=== PATIENT | male | born 1970 | race Caucasian/White ===

== ENCOUNTER 2017-09-17 05:46 | Emergency (ER) | payer OTHER, SELFPAY ==
[2017-09-17 05:46] VITALS: BP 189/109; PULSE 108; RESP 16; TEMP 36.9; O2SAT 98; BMI 25.0
--- NOTE | 2017-09-17 06:04 | EKG12_ITS ---
Test Reason : VOMITING/CP/SOB Blood Pressure : / mmHG Vent. Rate : 096 BPM Atrial Rate : 096 BPM P-R Int : 136 ms QRS Dur : 088 ms QT Int : 360 ms P-R-T Axes : 081 076 077 degrees QTc Int : 454 ms Normal sinus rhythm Normal ECG Confirmed by SHADI BONNER, FRANKLIN ([id number]), development editor OSIEL KHAN ([id number] on 09/20/2017 11:19:08 AM Referred By: IESHA Confirmed By:FRANKLIN HSU MD
--- NOTE | 2017-09-17 06:05 | CT_ITS ---
STUDY: CT ABDOMEN AND PELVIS WITHOUT CONTRAST REASON FOR EXAM: Male, 47 years old. N/V/D WITH FEVER X 3 DAYS, MID UPPER ABD PAIN, HX HTN, GB RADIATION DOSAGE (If Supplied By Facility): CTDIvol = ( 6.67 ) mGy, DLP = ( 336.56 ) mGycm TECHNIQUE: Transaxial images were obtained from the dome of the diaphragm to the symphysis pubis without oral contrast, and without intravenous contrast. Sagittal and coronal images were reconstructed. Individualized dose optimization techniques were used for this CT. COMPARISON: None. FINDINGS: The visualized lung bases are unremarkable. The visualized portions of the heart are within normal limits. Normal liver. There are surgical clips in the gallbladder fossa consistent with a prior cholecystectomy. Normal spleen. Normal pancreas. Normal bilateral adrenal glands. Normal right kidney. Normal left kidney. Normal visualized stomach. Normal small intestine. There are multiple colonic diverticula consistent with diverticulosis. There is non-visualization of the appendix. Normal abdominal aorta. Normal inferior vena cava. Normal retroperitoneum. Normal urinary bladder. Normal abdominal wall. There are diffuse degenerative changes of the visualized lumbar spine. CT/Abdomen/Pelvis without Cont IMPRESSION: There are multiple colonic diverticula consistent with diverticulosis. Electronically Signed: Elías Garcia MD at 6:59 EST Tel , Service support ,
[2017-09-17] MEDS: 0.9% Normal Saline 1,000 ML 1000 ML IV (06:12)
[2017-09-17] MEDS: Ondansetron 4 MG/2 ML Vial IV (06:12)
[2017-09-17 06:16] LABS: Absolute Lymphocyte Count 1.52 X10^3/ul (0.83-4.51); Absolute Neutrophil Count 2.1 X10^3/uL (2.0-7.7); Basophil# 0.03 X10^3/uL; Basophil% 0.6 % (0-1); Eosinophil# 0.14 X10^3/uL; Hematocrit 46.3 % (40-54); Hemoglobin 16.6 g/dl (13.0-16.5); Lymphocyte # 1.52 X10^3/ul (4.0); Lymphocyte % 32.6 % (19-41); Mean Corp Hgb Conc 35.9 g/gl (32-36); Mean Corpuscular Hgb 33.8 pg (27.0-32.0); Mean Corpuscular Volume 94.3 fL (80-94); Mean Platelet Vol. 8.8 fl (6.2-12.0); Monocyte# 0.84 X10^3/uL; Neutrophil # 2.12 X10^3/uL (2.7-7.7); Neutrophil % 45.6 % (47-70); Platelet Count 229 K/mm3 (150-450); RBC Distribution Width CV 13.1 % (11.6-14.6); RBC Distribution Width SD 43.9 fl (35.1-43.9); Red Blood Count 4.91 M/mm3 (4.6-6.2); White Blood Count 4.7 K/mm3 (4.4-11.0)
--- NOTE | 2017-09-17 06:22 | ED.VISSUMM ---
- ER Visit Summary Date of Service: 09/17/17 Chief Complaint: [Abdominal pain] History of Present Illness: The patient is a 47 M [who presents the emergency department with ongoing abdominal pain for quite some time. For the last 3 days he has had subjective fevers nausea vomiting and diarrhea. He has vomited 3 times since 3 AM. His diarrhea is watery and he has multiple episodes it is not black or bloody. He has been working with Dr. Starr to figure out what has been going on with his abdominal pain he had his gallbladder out but that has not helped. He does smoke. He occasionally drinks alcohol. No chest pain or shortness of breath. He has had a cough sore throat headache.] Physical Examination: [] Blood pressure 189/109 heart rate 108 other vitals within normal limits WN WD NAD PERRL EOMI Dry mucous membranes NECK supple and nontender, no masses Regular tachycardic rhythm no murmur rub or gallop, no peripheral edema, symmetric radial pulses CTAB no respiratory distress ABDOMEN is soft and mild bilateral upper and epigastric tenderness to palpation, normal bowel sounds, no distension, no rebound or guarding SKIN is warm and dry no rashes Alert and Oriented x3, CN II-XII in tact, no motor or sensory deficits, gait normal No lymphadenopathy Test Results: [] Emergency Department Course and Treatment: [EKG was sinus at a rate of 96 with no acute ischemic changes. Patient was given a liter of fluids and Zofran. His nausea resolved. Screening labs were obtained and showed mild hypokalemia with potassium of 3.1. Calcium was 7.8. Patient's hemoglobin was 16.6. He had no leukocytosis. CT of abdomen pelvis was obtained to rule out diverticulitis or obstructive process and shows no acute process. Lipase was slightly elevated at 486. There is no inflammation or stranding around the pancreas on CAT scan. Patient is following with Dr. Mortensen for GI distress already. He will make a follow-up appointment with her. Additionally the patient's blood pressure is elevated. He had high blood pressure but it went away so he has not taken any medication however currently it is high. I did encourage him to follow-up with Dr. johnson for treatment of his high blood pressure.] Treatment Plan: [] Disposition: [Discharge] Impression: [1. Nausea vomiting diarrhea 2. Dehydration 3. Abdominal pain 4. Hypertension, uncontrolled] This note was generated with [employer] dictation software. It may contain incorrect words, spelling, and punctuation that were not noted in review of the chart prior to signing ED Disposition - Plan for ED Patient: Chief Complaint: Nausea/Vomiting/Diarrhea Referrals: Que Stark MD [Primary Care Provider] -
[2017-09-17 06:23] LABS: POSITIVE COUNT NO; POSITIVE DIFFERENTIAL NO; POSITIVE MORPHOLOGY NO
[2017-09-17 06:33] LABS: AST(SGOT) 87 U/L (15-37); Alanine Aminotransfer ALT/SGPT 41 U/L (16-61); Albumin, Serum 3.3 g/dL (3.2-5.0); Alkaline Phosphatase 123 U/L (45-117); Anion Gap 10 (5-15); BUN 8 mg/dL (7-18); BUN/Creat Ratio 11.7 RATIO (10-20); Calcium,Total 7.8 mg/dL (8.5-10.1); Chloride 102 mmol/L (98-107); Creatinine, Serum 0.68 mg/dL (0.70-1.30); EST Glomerular Filtration Rate 133 mL/min (>60); Est Glom Filt Rate - Afr Amer 160 mL/min (>60); Estimated Creatinine Clearance 140.16 ml/min; Globulin 3.4 g/dL (2.2-4.2); Glucose 113 mg/dL (70-110); Lipase 486 U/L (73-393); Potassium 3.1 mmol/L (3.5-5.1); Protein, Total 6.7 g/dL (6.4-8.2); Sodium Level 139 mmol/L (136-145)
[2017-09-17] MEDS: Mag Hydrox/Al Hydrox/Simeth 30 ML UDC PO (06:50)
[2017-09-17 07:08] VITALS: BP 174/109; PULSE 97; RESP 18; O2SAT 98
[2017-09-17 07:11] VITALS: BP 167/99; PULSE 91; RESP 16; O2SAT 96
--- NOTE | 2017-09-17 07:14 | DCINST.ED_ITS ---
ED Disposition - Plan for ED Patient: Chief Complaint: Nausea/Vomiting/Diarrhea Instructions: ED Vomiting Diarrhea Nonspecific Ad, ED Abdominal Pain Unkn Cause , ED Hypertension Conf Out Of Control Prescriptions: Ondansetron [Zofran Odt] 4 mg PO Q8H PRN PRN #10 tablet PRN Reason: Vomiting Referrals: Que Stark MD [Primary Care Provider] - 3-5 Days Elena Starr MD [STAFF PHYSICIAN] - 3-5 Days
== END 2017-09-17 07:28 | disposition home or self-care (01) ==
LOC: ED 06:30
PROVIDERS: Emergency Provider Emergency Medicine; Family Provider Family Medicine; PCP Family Medicine
DX: R10.13 Epigastric pain (principal); R10.12 Left upper quadrant pain; R10.11 Right upper quadrant pain; R11.2 Nausea with vomiting, unspecified; R19.7 Diarrhea, unspecified; E86.0 Dehydration; I10 Essential (primary) hypertension; E87.6 Hypokalemia; F17.200 Nicotine dependence, unspecified, uncomplicated; Z79.51 Long term (current) use of inhaled steroids; Z79.899 Other long term (current) drug therapy
CPT/HCPCS: 74176; 80053; 83690; 85025; 87804; 93005; 96361; 96374; 99284; J7030; A4216; J2405

== ENCOUNTER 2017-10-10 11:03 | Inpatient (IN) | payer OTHER, SELFPAY ==
[2017-10-10] VITALS (12 sets, daily range): BP systolic 151–171; BP diastolic 94–118; PULSE 93–109; RESP 18; TEMP 36.9–37.4; O2SAT 98–99; BMI 24.1; BMI 35.6
--- NOTE | 2017-10-10 11:43 | PCM.HP.STD ---
Problem List (1) Alcohol withdrawal Status: Acute (2) COPD (chronic obstructive pulmonary disease) Status: Chronic (3) Alcohol abuse Status: Chronic (4) Seizure disorder Status: Chronic (5) Tobacco abuse Status: Chronic (6) Benign essential hypertension Status: Chronic History of Present Illness Date of Admission: 10/10/17 Chief Complaint: Shaking, restlessness, abdominal pain. The patient is a 47 year old M with past medical history as mentioned above presented to the [facility] office for symptoms of shakiness, anxiety, restlessness and abdominal pain. His symptoms started yesterday with mainly shakiness, anxiety and restlessness, constant since he stopped drinking yesterday, got worse today and his last drink was last night. He complains of vague abdominal pain, generalized, dull aching pain, mild, 3-4 out of 10 in severity, intermittent, associated with nausea without vomiting as well as diarrhea. He has been having diarrhea for the last 3 days, watery stool without blood. Denies fever or chills. He mentioned that he has been drinking 1 L of vodka for at least 10 years and also he admitted smoking marijuana. He denied use of other recreational drugs. He is a chronic smoker, has been using albuterol inhaler but never been diagnosed officially with COPD. Clinically, he does have suspected COPD which seemed to be stable at this time. He had a history of chronic abdominal/epigastric pain and he underwent extensive workup as outpatient. Last year in January, he underwent upper endoscopy and he had cholecystectomy done but he continued to have significant epigastric pain. He has been on Zantac and Protonix. He reported family history of duodenal ulcers. He is being admitted for alcohol withdrawal for medical stabilization. Past Medical History Past Medical History (Chronic Problems): Chronic Problems COPD (chronic obstructive pulmonary disease) (Chronic) Alcohol abuse (Chronic) Seizure disorder (Chronic) Tobacco abuse (Chronic) Benign essential hypertension (Chronic) Allergies acetaminophen [From Vicodin] Adverse Reaction (Verified 09/17/17 05:53) Other PT IS NOT ALLERGIC TO TYLENOL hydrocodone bitartrate [From Vicodin] Adverse Reaction (Verified 09/17/17 05:53) Other Opioids - Morphine Analogues Adverse Reaction (Verified 09/17/17 05:53) Other GIVES ME HORRIBLE NIGHTMARES Home Medications: Ambulatory Orders Medication Instructions Recorded Albuterol Sulfate [Proventil Hfa] 6.7 gm IH Q2H PRN PRN #1 hfa.aer.ad 05/27/17 Ranitidine [Zantac] 300 mg PO BID 05/27/17 Ondansetron [Zofran Odt] 4 mg PO Q8H PRN PRN #10 tablet 09/17/17 Pantoprazole Sodium [Protonix] 40 mg PO DAILY 10/10/17 Surgical History: cholecystectomy Psychiatric History: No pertinent psych hx Lives: Alone Smoking Status: Current every day smoker Alcohol: Heavy Drugs: Marijuana - *Family History Paternal History Items: - - Peptic ulcer disease. Maternal History Items: No pertinent history Review of Systems Constitutional: Denies: Anorexia, Chills, Fever, Weakness Eyes: Denies: Blurred vision, Double vision, Drainage, Redness HEENT: Denies: Difficulty Hearing, Dysphasia, Ear Pain, Eye Pain, Nasal Congestion, Sore Throat Cardiovascular: Denies: Chest Pain, Chest Pressure, Chest Tightness, Heaviness, Light Headedness, Palpitations, Syncope Respiratory: Denies: Cough, Pleuritic Pain, Shortness of Breath, Sputum production, Wheezing Gastrointestinal: Reports: Abdominal Pain, Diarrhea, Nausea. Denies: Constipation, Hematochezia, Melena, Vomiting Genitourinary: Denies: Dysuria, Frequency, Hematuria Musculoskeletal: Denies: Arm Pain, Back Pain, Foot Pain Skin: Denies: Dryness, Rash Neurological: Denies: Balance problems, Double vision, Change in Speech, Slurred speech, Confusion, Headaches, Incoordination, Numbness Psychiatric: Denies: Anxiety, Depression Endocrine: Denies: Change in Body Habitus, Polydipsia VTE Information - Inpt Only VTE Present on Admission: No VTE Mechan Device Prophylaxis: None VTE Pharm Prophylaxis ordered?: No Patient Problems: Active and Suspected Problems Alcohol withdrawal (Acute) - Physical Exam General: Alert, Oriented x3, Cooperative, - - Anxious, restless. HEENT: Atraumatic, PERRLA, EOMI Oral: Moist Mucosa, No Gingival or Mucosal Lesions/ Ulcerations Neck: Supple, No JVD, Negative Carotid Bruits, Trachea Midline, Thyroid Normal Size and Texture Lungs: Clear to auscultation, Normal air movement, No rhonchi, No wheeze, No rales Cardiovascular: Regular rate, Regular Rhythm, Normal S1, Normal S2, PMI Normal, Tachycardic Abdomen: Bowel Sounds Present, Soft, Non Tender, Non-Distended, No Hepato-splenomegaly Extremities: No clubbing, No cyanosis, No edema Skin: No rashes, No breakdown Lymphatic: No Cervical, Supraclavicular, or Inguinal Adenopathy Neurological: Cranial nerves II-XII grossly intact, Motor Exam 5/5 strength throughout Psych/Mental Status: Anxious, Restless, Alert and oriented to time, place, person, mood and affect Vital Signs Temp Pulse Resp BP Pulse Ox 98.4 F 103 H 18 155/118 H 98 10/10/17 11:34 10/10/17 11:34 10/10/17 11:34 10/10/17 11:34 10/10/17 11:34 Oxygen Delivery Method Room Air Assessment/Plan Active and Suspected Problems Alcohol withdrawal (Acute) This is a 47 years old this is a 47 years old male patient presented to the [facility] office for symptoms of anxiety, restlessness, shakiness and abdominal pain and he is being admitted for acute alcohol withdrawal. #1 acute alcohol withdrawal: Patient admitted drinking 1 L of vodka daily for at least 10 years in addition to smoking marijuana. He denied use of other recreational drugs. At this time, he is slightly tachycardic, blood pressure on the higher side. Plan: Admit to [facility] floor, cardiac monitoring, initiate [facility] protocol for alcohol withdrawal, CIWA protocol, IV thiamine, IV folic acid, multivitamins, Ativan as needed, CBC, CMP, EKG, lipase, urine drug screen, blood alcohol level #2 alcohol abuse: As mentioned above, patient has been drinking heavily for more than 10 years. Plan as above. #3 hypertension: Patient mentioned that he does have history of hypertension but he is not on treatment. At this time, blood pressure is elevated at 155/118. Plan: IV hydralazine as needed. #4 COPD: Clinically stable, pulse ox is normal on room air. Plan for albuterol as needed. #5 seizure disorder: Probably due to alcohol withdrawal. Denied any seizure for long time. He is not on any antiseizure medication. #6 tobacco abuse: NicoDerm patch. #7 DVT prophylaxis: Low risk patient, no prophylaxis indicated. This note was generated with [employer] software. It may contain incorrect words, spelling, and punctuation that were not noted in checking the note before signing. Code Visit Inpatient E&M: 96945 Init Hosp L2
--- NOTE | 2017-10-10 11:49 | HP.PCM_ITS ---
Problem List (1) Alcohol withdrawal Status: Acute (2) COPD (chronic obstructive pulmonary disease) Status: Chronic (3) Alcohol abuse Status: Chronic (4) Seizure disorder Status: Chronic (5) Tobacco abuse Status: Chronic (6) Benign essential hypertension Status: Chronic History of Present Illness Date of Admission: 10/10/17 Chief Complaint: Shaking, restlessness, abdominal pain. The patient is a 47 year old M with past medical history as mentioned above presented to the [facility] office for symptoms of shakiness, anxiety, restlessness and abdominal pain. His symptoms started yesterday with mainly shakiness, anxiety and restlessness, constant since he stopped drinking yesterday, got worse today and his last drink was last night. He complains of vague abdominal pain, generalized, dull aching pain, mild, 3-4 out of 10 in severity, intermittent, associated with nausea without vomiting as well as diarrhea. He has been having diarrhea for the last 3 days, watery stool without blood. Denies fever or chills. He mentioned that he has been drinking 1 L of vodka for at least 10 years and also he admitted smoking marijuana. He denied use of other recreational drugs. He is a chronic smoker, has been using albuterol inhaler but never been diagnosed officially with COPD. Clinically, he does have suspected COPD which seemed to be stable at this time. He had a history of chronic abdominal/epigastric pain and he underwent extensive workup as outpatient. Last year in January, he underwent upper endoscopy and he had cholecystectomy done but he continued to have significant epigastric pain. He has been on Zantac and Protonix. He reported family history of duodenal ulcers. He is being admitted for alcohol withdrawal for medical stabilization. Past Medical History Past Medical History (Chronic Problems): Chronic Problems COPD (chronic obstructive pulmonary disease) (Chronic) Alcohol abuse (Chronic) Seizure disorder (Chronic) Tobacco abuse (Chronic) Benign essential hypertension (Chronic) Allergies acetaminophen [From Vicodin] Adverse Reaction (Verified 09/17/17 05:53) Other PT IS NOT ALLERGIC TO TYLENOL hydrocodone bitartrate [From Vicodin] Adverse Reaction (Verified 09/17/17 05:53) Other Opioids - Morphine Analogues Adverse Reaction (Verified 09/17/17 05:53) Other GIVES ME HORRIBLE NIGHTMARES Home Medications: Ambulatory Orders Medication Instructions Recorded Albuterol Sulfate [Proventil Hfa] 6.7 gm IH Q2H PRN PRN #1 hfa.aer.ad 05/27/17 Ranitidine [Zantac] 300 mg PO BID 05/27/17 Ondansetron [Zofran Odt] 4 mg PO Q8H PRN PRN #10 tablet 09/17/17 Pantoprazole Sodium [Protonix] 40 mg PO DAILY 10/10/17 Surgical History: cholecystectomy Psychiatric History: No pertinent psych hx Lives: Alone Smoking Status: Current every day smoker Alcohol: Heavy Drugs: Marijuana - *Family History Paternal History Items: - - Peptic ulcer disease. Maternal History Items: No pertinent history Review of Systems Constitutional: Denies: Anorexia, Chills, Fever, Weakness Eyes: Denies: Blurred vision, Double vision, Drainage, Redness HEENT: Denies: Difficulty Hearing, Dysphasia, Ear Pain, Eye Pain, Nasal Congestion, Sore Throat Cardiovascular: Denies: Chest Pain, Chest Pressure, Chest Tightness, Heaviness, Light Headedness, Palpitations, Syncope Respiratory: Denies: Cough, Pleuritic Pain, Shortness of Breath, Sputum production, Wheezing Gastrointestinal: Reports: Abdominal Pain, Diarrhea, Nausea. Denies: Constipation, Hematochezia, Melena, Vomiting Genitourinary: Denies: Dysuria, Frequency, Hematuria Musculoskeletal: Denies: Arm Pain, Back Pain, Foot Pain Skin: Denies: Dryness, Rash Neurological: Denies: Balance problems, Double vision, Change in Speech, Slurred speech, Confusion, Headaches, Incoordination, Numbness Psychiatric: Denies: Anxiety, Depression Endocrine: Denies: Change in Body Habitus, Polydipsia VTE Information - Inpt Only VTE Present on Admission: No VTE Mechan Device Prophylaxis: None VTE Pharm Prophylaxis ordered?: No Patient Problems: Active and Suspected Problems Alcohol withdrawal (Acute) - Physical Exam General: Alert, Oriented x3, Cooperative, - - Anxious, restless. HEENT: Atraumatic, PERRLA, EOMI Oral: Moist Mucosa, No Gingival or Mucosal Lesions/ Ulcerations Neck: Supple, No JVD, Negative Carotid Bruits, Trachea Midline, Thyroid Normal Size and Texture Lungs: Clear to auscultation, Normal air movement, No rhonchi, No wheeze, No rales Cardiovascular: Regular rate, Regular Rhythm, Normal S1, Normal S2, PMI Normal, Tachycardic Abdomen: Bowel Sounds Present, Soft, Non Tender, Non-Distended, No Hepato- splenomegaly Extremities: No clubbing, No cyanosis, No edema Skin: No rashes, No breakdown Lymphatic: No Cervical, Supraclavicular, or Inguinal Adenopathy Neurological: Cranial nerves II-XII grossly intact, Motor Exam 5/5 strength throughout Psych/Mental Status: Anxious, Restless, Alert and oriented to time, place, person, mood and affect Vital Signs Temp Pulse Resp BP Pulse Ox 98.4 F 103 H 18 155/118 H 98 10/10/17 11:34 10/10/17 11:34 10/10/17 11:34 10/10/17 11:34 10/10/17 11:34 Oxygen Delivery Method Room Air Assessment/Plan Active and Suspected Problems Alcohol withdrawal (Acute) This is a 47 years old this is a 47 years old male patient presented to the [facility] office for symptoms of anxiety, restlessness, shakiness and abdominal pain and he is being admitted for acute alcohol withdrawal. #1 acute alcohol withdrawal: Patient admitted drinking 1 L of vodka daily for at least 10 years in addition to smoking marijuana. He denied use of other recreational drugs. At this time, he is slightly tachycardic, blood pressure on the higher side. Plan: Admit to [facility] floor, cardiac monitoring, initiate [facility] protocol for alcohol withdrawal, CIWA protocol, IV thiamine, IV folic acid, multivitamins, Ativan as needed, CBC, CMP, EKG, lipase, urine drug screen, blood alcohol level #2 alcohol abuse: As mentioned above, patient has been drinking heavily for more than 10 years. Plan as above. #3 hypertension: Patient mentioned that he does have history of hypertension but he is not on treatment. At this time, blood pressure is elevated at 155/ 118. Plan: IV hydralazine as needed. #4 COPD: Clinically stable, pulse ox is normal on room air. Plan for albuterol as needed. #5 seizure disorder: Probably due to alcohol withdrawal. Denied any seizure for long time. He is not on any antiseizure medication. #6 tobacco abuse: NicoDerm patch. #7 DVT prophylaxis: Low risk patient, no prophylaxis indicated. This note was generated with [employer] software. It may contain incorrect words, spelling, and punctuation that were not noted in checking the note before signing. Code Visit Inpatient E&M: 59288 Init Hosp L2
[2017-10-10] MEDS: LORazepam 1 MG Tablet PO ×3 (12:51→20:42)
[2017-10-10] MEDS: Dextrose 5%/0.9% NaCl 1,000 ML 100 ML IV (12:52)
[2017-10-10 12:54] LABS: Absolute Lymphocyte Count 0.96 X10^3/ul (0.83-4.51); Absolute Neutrophil Count 3.4 X10^3/uL (2.0-7.7); Basophil# 0.03 X10^3/uL; Basophil% 0.6 % (0-1); Eosinophil# 0.08 X10^3/uL; Eosinophils% 1.6 % (0-5); Hematocrit 43.8 % (40-54); Hemoglobin 15.8 g/dl (13.0-16.5); Lymphocyte # 0.96 X10^3/ul (4.0); Lymphocyte % 19.5 % (19-41); Mean Corp Hgb Conc 36.1 g/gl (32-36); Mean Corpuscular Hgb 34.7 pg (27.0-32.0); Mean Corpuscular Volume 96.3 fL (80-94); Mean Platelet Vol. 9.1 fl (6.2-12.0); Monocyte% 10.1 % (0-10); Neutrophil # 3.35 X10^3/uL (2.7-7.7); Platelet Count 177 K/mm3 (150-450); RBC Distribution Width CV 14.6 % (11.6-14.6); RBC Distribution Width SD 49.6 fl (35.1-43.9); Red Blood Count 4.55 M/mm3 (4.6-6.2); White Blood Count 4.9 K/mm3 (4.4-11.0)
[2017-10-10 12:57] LABS: POSITIVE COUNT NO; POSITIVE DIFFERENTIAL NO; POSITIVE MORPHOLOGY NO
[2017-10-10 13:06] LABS: Prothrombin Time (Protime)PT. 12.9 SECONDS (11.7-14.9)
[2017-10-10 13:08] LABS: ALB/GLOB Ratio 0.9 RATIO (0.9-2.4); AST(SGOT) 76 U/L (15-37); Alanine Aminotransfer ALT/SGPT 58 U/L (16-61); Albumin, Serum 3.4 g/dL (3.2-5.0); Alkaline Phosphatase 141 U/L (45-117); Anion Gap 12 (5-15); BUN 4 mg/dL (7-18); BUN/Creat Ratio 8.7 RATIO (10-20); Chloride 104 mmol/L (98-107); Creatinine, Serum 0.46 mg/dL (0.70-1.30); EST Glomerular Filtration Rate 208 mL/min (>60); Est Glom Filt Rate - Afr Amer 252 mL/min (>60); Estimated Creatinine Clearance 207.19 ml/min; Globulin 3.6 g/dL (2.2-4.2); Glucose 107 mg/dL (74-106); Lipase 157 U/L (73-393); Potassium 3.3 mmol/L (3.5-5.1); Sodium Level 139 mmol/L (136-145)
[2017-10-10 16:24] LABS: Amphetamine Urine VISTA NEGATIVE (<1000 ng/mL); Barbiturate Urine VISTA POSITIVE (< 200 ng/mL); Benzodiazepine Urine VISTA NEGATIVE (< 200 ng/mL); Cocaine Urine VISTA NEGATIVE (< 300 ng/mL); Ecstacy Urine VISTA NEGATIVE (< 500 ng/mL); Methadone Urine VISTA NEGATIVE (< 300 ng/mL); PCP Urine VISTA NEGATIVE (< 25 ng/mL); THC Urine VISTA POSITIVE (< 50 ng/mL); Vista UDS pH Range 7
[2017-10-10] MEDS: Pantoprazole Sodium 40 MG Tablet PO (21:58)
[2017-10-11] VITALS (14 sets, daily range): BP systolic 150–159; BP diastolic 94–105; PULSE 93–107; RESP 16–18; TEMP 36.7–37.3; O2SAT 100
[2017-10-11] MEDS: LORazepam 1 MG Tablet PO ×5 (00:21→20:54)
--- NOTE | 2017-10-11 09:22 | PCM.PROGNOTE ---
Patient Problems: Active and Suspected Problems Alcohol withdrawal (Acute) Subjective: Chief complaint: Follow-up after admission for acute alcohol withdrawal. Patient seen and examined. No acute events overnight. He is feeling better, less shakiness and anxiety but still there. He still complaining of diarrhea. No more abdominal pain or nausea. Stool for C. difficile was negative. He is afebrile, heart rate has been around 100, blood pressure remained elevated, pulse ox is normal on room air. - Physical Exam General: Alert, Oriented x3, Cooperative, No apparent distress HEENT: Atraumatic, PERRLA, EOMI Oral: Moist Mucosa, No Gingival or Mucosal Lesions/ Ulcerations Neck: Supple, No JVD, Negative Carotid Bruits, Trachea Midline, Thyroid Normal Size and Texture Lungs: Clear to auscultation, Normal air movement, No rhonchi, No wheeze, No rales Cardiovascular: Regular rate, Regular Rhythm, Normal S1, Normal S2, No murmurs, PMI Normal, Tachycardic Abdomen: Bowel Sounds Present, Soft, Non Tender, Non-Distended, No Hepato-splenomegaly Extremities: No clubbing, No cyanosis, No edema Skin: No rashes, No breakdown Lymphatic: No Cervical, Supraclavicular, or Inguinal Adenopathy Neurological: Cranial nerves II-XII grossly intact, Neuro grossly intact Psych/Mental Status: Normal Affect, Appropriate Vital Signs Temp Pulse Resp BP Pulse Ox 99.1 F 94 16 150/94 H 99 10/11/17 04:02 10/11/17 04:47 10/11/17 04:02 10/11/17 04:02 10/10/17 14:32 Oxygen Delivery Method Room Air Weight: 168 lb 6.401 oz Body Mass Index (BMI) 24.1 Intake and Output for Last 24 Hours 10/09/17 10/10/17 10/11/17 23:59 23:59 23:59 Intake Total 2500 / 2500 Balance 2500 / 2500 Microbiology Past 72 Hours 10/10/17 16:30 C. difficile DNA Amplification - Final Stool Laboratory Tests Past 24 Hrs 10/10/17 10/10/17 10/10/17 12:25 12:25 12:25 WBC 4.9 RBC 4.55 L Hgb 15.8 Hct 43.8 MCV 96.3 H MCH 34.7 H MCHC 36.1 H RDW 14.6 RDW Differential 49.6 H Plt Count 177 MPV 9.1 Immature Gran % (Auto) 0.200 Neut % (Auto) 68.0 Lymph % (Auto) 19.5 [place] % (Auto) 10.1 H Eos % (Auto) 1.6 Baso % (Auto) 0.6 Absolute Neuts (auto) 3.4 Absolute Lymphs (auto) 0.96 Total Counted Not Reportable PT 12.9 INR 1.0 Sodium 139 Potassium 3.3 L Chloride 104 Carbon Dioxide 23.0 Anion Gap 12 BUN 4 L Creatinine 0.46 L Estim Creat Clear Calc 207.19 Est GFR (MDRD) Af Amer 252 Est GFR (MDRD) Non-Af 208 BUN/Creatinine Ratio 8.7 L Glucose 107 H Calcium 8.0 L Total Bilirubin 1.40 H AST 76 H ALT 58 Alkaline Phosphatase 141 H Total Protein 7.0 Albumin 3.4 Globulin 3.6 Albumin/Globulin Ratio 0.9 Lipase 157 Urine Opiates Screen Urine Methadone Screen Ur Barbiturates Screen Ur Phencyclidine Scrn Ur Amphetamines Screen U Methamphetamin-MDMA U Benzodiazepines Scrn Urine Cocaine Screen U Cannabinoids Screen Ur Drug Screen Comment Ethyl Alcohol 10/10/17 10/10/17 12:25 15:15 WBC RBC Hgb Hct MCV MCH MCHC RDW RDW Differential Plt Count MPV Immature Gran % (Auto) Neut % (Auto) Lymph % (Auto) [place] % (Auto) Eos % (Auto) Baso % (Auto) Absolute Neuts (auto) Absolute Lymphs (auto) Total Counted PT INR Sodium Potassium Chloride Carbon Dioxide Anion Gap BUN Creatinine Estim Creat Clear Calc Est GFR (MDRD) Af Amer Est GFR (MDRD) Non-Af BUN/Creatinine Ratio Glucose Calcium Total Bilirubin AST ALT Alkaline Phosphatase Total Protein Albumin Globulin Albumin/Globulin Ratio Lipase Urine Opiates Screen NEGATIVE Urine Methadone Screen NEGATIVE Ur Barbiturates Screen POSITIVE H Ur Phencyclidine Scrn NEGATIVE Ur Amphetamines Screen NEGATIVE U Methamphetamin-MDMA NEGATIVE U Benzodiazepines Scrn NEGATIVE Urine Cocaine Screen NEGATIVE U Cannabinoids Screen POSITIVE H Ur Drug Screen Comment Ethyl Alcohol 167.0 Microbiology 10/10/17 16:30 C. difficile DNA Amplification - Final Stool Laboratory Tests 10/10/17 10/10/17 10/10/17 Range/Units 15:15 12:25 12:25 WBC (4.4-11.0) K/mm3 RBC (4.6-6.2) M/mm3 Hgb (13.0-16.5) g/dl Hct (40-54) % MCV (80-94) fL MCH (27.0-32.0) pg MCHC (32-36) g/gl RDW (11.6-14.6) % RDW Differential (35.1-43.9) fl Plt Count (150-450) K/mm3 MPV (6.2-12.0) fl Immature Gran % (Auto) (0.0-0.9) % Neut % (Auto) (47-70) % Lymph % (Auto) (19-41) % [place] % (Auto) (0-10) % Eos % (Auto) (0-5) % Baso % (Auto) (0-1) % Absolute Neuts (auto) (2.0-7.7) X10^3/uL Absolute Lymphs (auto) (0.83-4.51) X10^3/ul Total Counted PT (11.7-14.9) SECONDS INR Sodium 139 (136-145) mmol/L Potassium 3.3 L (3.5-5.1) mmol/L Chloride 104 (98-107) mmol/L Carbon Dioxide 23.0 (21.0-32.0) mmol/L Anion Gap 12 (5-15) BUN 4 L (7-18) mg/dL Creatinine 0.46 L (0.70-1.30) mg/dL Estim Creat Clear Calc 207.19 ml/min Est GFR (MDRD) Af Amer 252 (>60) mL/min Est GFR (MDRD) Non-Af 208 (>60) mL/min BUN/Creatinine Ratio 8.7 L (10-20) RATIO Glucose 107 H (74-106) mg/dL Calcium 8.0 L (8.5-10.1) mg/dL Total Bilirubin 1.40 H (0.20-1.00) mg/dL AST 76 H (15-37) U/L ALT 58 (16-61) U/L Alkaline Phosphatase 141 H (45-117) U/L Total Protein 7.0 (6.4-8.2) g/dL Albumin 3.4 (3.2-5.0) g/dL Globulin 3.6 (2.2-4.2) g/dL Albumin/Globulin Ratio 0.9 (0.9-2.4) RATIO Lipase 157 (73-393) U/L Urine Opiates Screen NEGATIVE (< 300 ng/mL) Urine Methadone Screen NEGATIVE (< 300 ng/mL) Ur Barbiturates Screen POSITIVE H (< 200 ng/mL) Ur Phencyclidine Scrn NEGATIVE (< 25 ng/mL) Ur Amphetamines Screen NEGATIVE (<1000 ng/mL) U Methamphetamin-MDMA NEGATIVE (< 500 ng/mL) U Benzodiazepines Scrn NEGATIVE (< 200 ng/mL) Urine Cocaine Screen NEGATIVE (< 300 ng/mL) U Cannabinoids Screen POSITIVE H (< 50 ng/mL) Ur Drug Screen Comment Ethyl Alcohol 167.0 mg/dL 10/10/17 10/10/17 Range/Units 12:25 12:25 WBC 4.9 (4.4-11.0) K/mm3 RBC 4.55 L (4.6-6.2) M/mm3 Hgb 15.8 (13.0-16.5) g/dl Hct 43.8 (40-54) % MCV 96.3 H (80-94) fL MCH 34.7 H (27.0-32.0) pg MCHC 36.1 H (32-36) g/gl RDW 14.6 (11.6-14.6) % RDW Differential 49.6 H (35.1-43.9) fl Plt Count 177 (150-450) K/mm3 MPV 9.1 (6.2-12.0) fl Immature Gran % (Auto) 0.200 (0.0-0.9) % Neut % (Auto) 68.0 (47-70) % Lymph % (Auto) 19.5 (19-41) % [place] % (Auto) 10.1 H (0-10) % Eos % (Auto) 1.6 (0-5) % Baso % (Auto) 0.6 (0-1) % Absolute Neuts (auto) 3.4 (2.0-7.7) X10^3/uL Absolute Lymphs (auto) 0.96 (0.83-4.51) X10^3/ul Total Counted Not Reportable PT 12.9 (11.7-14.9) SECONDS INR 1.0 Sodium (136-145) mmol/L Potassium (3.5-5.1) mmol/L Chloride (98-107) mmol/L Carbon Dioxide (21.0-32.0) mmol/L Anion Gap (5-15) BUN (7-18) mg/dL Creatinine (0.70-1.30) mg/dL Estim Creat Clear Calc ml/min Est GFR (MDRD) Af Amer (>60) mL/min Est GFR (MDRD) Non-Af (>60) mL/min BUN/Creatinine Ratio (10-20) RATIO Glucose (74-106) mg/dL Calcium (8.5-10.1) mg/dL Total Bilirubin (0.20-1.00) mg/dL AST (15-37) U/L ALT (16-61) U/L Alkaline Phosphatase (45-117) U/L Total Protein (6.4-8.2) g/dL Albumin (3.2-5.0) g/dL Globulin (2.2-4.2) g/dL Albumin/Globulin Ratio (0.9-2.4) RATIO Lipase (73-393) U/L Urine Opiates Screen (< 300 ng/mL) Urine Methadone Screen (< 300 ng/mL) Ur Barbiturates Screen (< 200 ng/mL) Ur Phencyclidine Scrn (< 25 ng/mL) Ur Amphetamines Screen (<1000 ng/mL) U Methamphetamin-MDMA (< 500 ng/mL) U Benzodiazepines Scrn (< 200 ng/mL) Urine Cocaine Screen (< 300 ng/mL) U Cannabinoids Screen (< 50 ng/mL) Ur Drug Screen Comment Ethyl Alcohol mg/dL Assessment/Plan Active and Suspected Problems Alcohol withdrawal (Acute) This is a 47 years old this is a 47 years old male patient presented to the [facility] office for symptoms of anxiety, restlessness, shakiness and abdominal pain and he is being admitted for acute alcohol withdrawal. #1 acute alcohol withdrawal/intoxication: Patient was admitted for medical stabilization. He is on [facility] protocol with Ativan, vitamin supplement, CIWA protocol. He is slightly tachycardic, blood pressure is elevated. Patient reported improvement of his shakiness and anxiety. His blood alcohol level is highly elevated at 167. Routine blood work was remarkable for potassium of 3.3 which was replaced yesterday. Total bilirubin, AST and alk phosphatase is slightly elevated likely because of chronic alcoholic liver disease. Plan: Close monitoring to avoid DTs as his blood alcohol level is very high, continue same treatment. #2 alcohol abuse: As mentioned above, patient has been drinking heavily for more than 10 years. Plan as above. #3 hypertension: Blood pressure still elevated. He does have history of hypertension but he has not been taking any medication. Plan: Start metoprolol twice daily, IV hydralazine as needed. #4 COPD: Clinically stable, pulse ox is normal on room air. Continue albuterol as needed. #5 seizure disorder: Probably due to alcohol withdrawal. Denied any seizure for long time. He is not on any antiseizure medication. #6 tobacco abuse: NicoDerm patch. #7 substance abuse: Patient admitted smoking marijuana. Urine drug screen is positive for barbiturates and cannabinoids. #8 DVT prophylaxis: Low risk patient, no prophylaxis indicated. This note was generated with [employer] dictation software. It may contain incorrect words, spelling, and punctuation that were not noted in checking the note before signing. Code Visit Inpatient E&M: 55122 Subs Hosp L2
--- NOTE | 2017-10-11 09:28 | PN_ITS ---
Patient Problems: Active and Suspected Problems Alcohol withdrawal (Acute) Subjective: Chief complaint: Follow-up after admission for acute alcohol withdrawal. Patient seen and examined. No acute events overnight. He is feeling better, less shakiness and anxiety but still there. He still complaining of diarrhea. No more abdominal pain or nausea. Stool for C. difficile was negative. He is afebrile, heart rate has been around 100, blood pressure remained elevated, pulse ox is normal on room air. - Physical Exam General: Alert, Oriented x3, Cooperative, No apparent distress HEENT: Atraumatic, PERRLA, EOMI Oral: Moist Mucosa, No Gingival or Mucosal Lesions/ Ulcerations Neck: Supple, No JVD, Negative Carotid Bruits, Trachea Midline, Thyroid Normal Size and Texture Lungs: Clear to auscultation, Normal air movement, No rhonchi, No wheeze, No rales Cardiovascular: Regular rate, Regular Rhythm, Normal S1, Normal S2, No murmurs, PMI Normal, Tachycardic Abdomen: Bowel Sounds Present, Soft, Non Tender, Non-Distended, No Hepato- splenomegaly Extremities: No clubbing, No cyanosis, No edema Skin: No rashes, No breakdown Lymphatic: No Cervical, Supraclavicular, or Inguinal Adenopathy Neurological: Cranial nerves II-XII grossly intact, Neuro grossly intact Psych/Mental Status: Normal Affect, Appropriate Vital Signs Temp Pulse Resp BP Pulse Ox 99.1 F 94 16 150/94 H 99 10/11/17 04:02 10/11/17 04:47 10/11/17 04:02 10/11/17 04:02 10/10/17 14:32 Oxygen Delivery Method Room Air Weight: 168 lb 6.401 oz Body Mass Index (BMI) 24.1 Intake and Output for Last 24 Hours 10/09/17 10/10/17 10/11/17 23:59 23:59 23:59 Intake Total 2500 / 2500 Balance 2500 / 2500 Microbiology Past 72 Hours 10/10/17 16:30 C. difficile DNA Amplification - Final Stool Laboratory Tests Past 24 Hrs 10/10/17 10/10/17 10/10/17 12:25 12:25 12:25 WBC 4.9 RBC 4.55 L Hgb 15.8 Hct 43.8 MCV 96.3 H MCH 34.7 H MCHC 36.1 H RDW 14.6 RDW Differential 49.6 H Plt Count 177 MPV 9.1 Immature Gran % (Auto) 0.200 Neut % (Auto) 68.0 Lymph % (Auto) 19.5 [place] % (Auto) 10.1 H Eos % (Auto) 1.6 Baso % (Auto) 0.6 Absolute Neuts (auto) 3.4 Absolute Lymphs (auto) 0.96 Total Counted Not Reportable PT 12.9 INR 1.0 Sodium 139 Potassium 3.3 L Chloride 104 Carbon Dioxide 23.0 Anion Gap 12 BUN 4 L Creatinine 0.46 L Estim Creat Clear Calc 207.19 Est GFR (MDRD) Af Amer 252 Est GFR (MDRD) Non-Af 208 BUN/Creatinine Ratio 8.7 L Glucose 107 H Calcium 8.0 L Total Bilirubin 1.40 H AST 76 H ALT 58 Alkaline Phosphatase 141 H Total Protein 7.0 Albumin 3.4 Globulin 3.6 Albumin/Globulin Ratio 0.9 Lipase 157 Urine Opiates Screen Urine Methadone Screen Ur Barbiturates Screen Ur Phencyclidine Scrn Ur Amphetamines Screen U Methamphetamin-MDMA U Benzodiazepines Scrn Urine Cocaine Screen U Cannabinoids Screen Ur Drug Screen Comment Ethyl Alcohol 10/10/17 10/10/17 12:25 15:15 WBC RBC Hgb Hct MCV MCH MCHC RDW RDW Differential Plt Count MPV Immature Gran % (Auto) Neut % (Auto) Lymph % (Auto) [place] % (Auto) Eos % (Auto) Baso % (Auto) Absolute Neuts (auto) Absolute Lymphs (auto) Total Counted PT INR Sodium Potassium Chloride Carbon Dioxide Anion Gap BUN Creatinine Estim Creat Clear Calc Est GFR (MDRD) Af Amer Est GFR (MDRD) Non-Af BUN/Creatinine Ratio Glucose Calcium Total Bilirubin AST ALT Alkaline Phosphatase Total Protein Albumin Globulin Albumin/Globulin Ratio Lipase Urine Opiates Screen NEGATIVE Urine Methadone Screen NEGATIVE Ur Barbiturates Screen POSITIVE H Ur Phencyclidine Scrn NEGATIVE Ur Amphetamines Screen NEGATIVE U Methamphetamin-MDMA NEGATIVE U Benzodiazepines Scrn NEGATIVE Urine Cocaine Screen NEGATIVE U Cannabinoids Screen POSITIVE H Ur Drug Screen Comment Ethyl Alcohol 167.0 Microbiology 10/10/17 16:30 C. difficile DNA Amplification - Final Stool Laboratory Tests 3 10/10/17 10/10/17 10/10/17 Range/Units 15:15 12:25 12:25 WBC (4.4-11.0) K/mm3 RBC (4.6-6.2) M/mm3 Hgb (13.0-16.5) g/dl Hct (40-54) % MCV (80-94) fL MCH (27.0-32.0) pg MCHC (32-36) g/gl RDW (11.6-14.6) % RDW Differential (35.1-43.9) fl Plt Count (150-450) K/mm3 MPV (6.2-12.0) fl Immature Gran % (Auto) (0.0-0.9) % Neut % (Auto) (47-70) % Lymph % (Auto) (19-41) % [place] % (Auto) (0-10) % Eos % (Auto) (0-5) % Baso % (Auto) (0-1) % Absolute Neuts (auto) (2.0-7.7) X10^3/uL Absolute Lymphs (auto) (0.83-4.51) X10^3/ul Total Counted PT (11.7-14.9) SECONDS INR Sodium 139 (136-145) mmol/L Potassium 3.3 L (3.5-5.1) mmol/L Chloride 104 (98-107) mmol/L Carbon Dioxide 23.0 (21.0-32.0) mmol/L Anion Gap 12 (5-15) BUN 4 L (7-18) mg/dL Creatinine 0.46 L (0.70-1.30) mg/dL Estim Creat Clear Calc 207.19 ml/min Est GFR (MDRD) Af Amer 252 (>60) mL/min Est GFR (MDRD) Non-Af 208 (>60) mL/min BUN/Creatinine Ratio 8.7 L (10-20) RATIO Glucose 107 H (74-106) mg/dL Calcium 8.0 L (8.5-10.1) mg/dL Total Bilirubin 1.40 H (0.20-1.00) mg/dL AST 76 H (15-37) U/L ALT 58 (16-61) U/L Alkaline Phosphatase 141 H (45-117) U/L Total Protein 7.0 (6.4-8.2) g/dL Albumin 3.4 (3.2-5.0) g/dL Globulin 3.6 (2.2-4.2) g/dL Albumin/Globulin Ratio 0.9 (0.9-2.4) RATIO Lipase 157 (73-393) U/L Urine Opiates Screen NEGATIVE (< 300 ng/mL) Urine Methadone Screen NEGATIVE (< 300 ng/mL) Ur Barbiturates Screen POSITIVE H (< 200 ng/mL) Ur Phencyclidine Scrn NEGATIVE (< 25 ng/mL) Ur Amphetamines Screen NEGATIVE (<1000 ng/mL) U Methamphetamin-MDMA NEGATIVE (< 500 ng/mL) U Benzodiazepines Scrn NEGATIVE (< 200 ng/mL) Urine Cocaine Screen NEGATIVE (< 300 ng/mL) U Cannabinoids Screen POSITIVE H (< 50 ng/mL) Ur Drug Screen Comment Ethyl Alcohol 167.0 mg/dL 3 10/10/17 10/10/17 Range/Units 12:25 12:25 WBC 4.9 (4.4-11.0) K/mm3 RBC 4.55 L (4.6-6.2) M/mm3 Hgb 15.8 (13.0-16.5) g/dl Hct 43.8 (40-54) % MCV 96.3 H (80-94) fL MCH 34.7 H (27.0-32.0) pg MCHC 36.1 H (32-36) g/gl RDW 14.6 (11.6-14.6) % RDW Differential 49.6 H (35.1-43.9) fl Plt Count 177 (150-450) K/mm3 MPV 9.1 (6.2-12.0) fl Immature Gran % (Auto) 0.200 (0.0-0.9) % Neut % (Auto) 68.0 (47-70) % Lymph % (Auto) 19.5 (19-41) % [place] % (Auto) 10.1 H (0-10) % Eos % (Auto) 1.6 (0-5) % Baso % (Auto) 0.6 (0-1) % Absolute Neuts (auto) 3.4 (2.0-7.7) X10^3/uL Absolute Lymphs (auto) 0.96 (0.83-4.51) X10^3/ul Total Counted Not Reportable PT 12.9 (11.7-14.9) SECONDS INR 1.0 Sodium (136-145) mmol/L Potassium (3.5-5.1) mmol/L Chloride (98-107) mmol/L Carbon Dioxide (21.0-32.0) mmol/L Anion Gap (5-15) BUN (7-18) mg/dL Creatinine (0.70-1.30) mg/dL Estim Creat Clear Calc ml/min Est GFR (MDRD) Af Amer (>60) mL/min Est GFR (MDRD) Non-Af (>60) mL/min BUN/Creatinine Ratio (10-20) RATIO Glucose (74-106) mg/dL Calcium (8.5-10.1) mg/dL Total Bilirubin (0.20-1.00) mg/dL AST (15-37) U/L ALT (16-61) U/L Alkaline Phosphatase (45-117) U/L Total Protein (6.4-8.2) g/dL Albumin (3.2-5.0) g/dL Globulin (2.2-4.2) g/dL Albumin/Globulin Ratio (0.9-2.4) RATIO Lipase (73-393) U/L Urine Opiates Screen (< 300 ng/mL) Urine Methadone Screen (< 300 ng/mL) Ur Barbiturates Screen (< 200 ng/mL) Ur Phencyclidine Scrn (< 25 ng/mL) Ur Amphetamines Screen (<1000 ng/mL) U Methamphetamin-MDMA (< 500 ng/mL) U Benzodiazepines Scrn (< 200 ng/mL) Urine Cocaine Screen (< 300 ng/mL) U Cannabinoids Screen (< 50 ng/mL) Ur Drug Screen Comment Ethyl Alcohol mg/dL Assessment/Plan Active and Suspected Problems Alcohol withdrawal (Acute) This is a 47 years old this is a 47 years old male patient presented to the [facility] office for symptoms of anxiety, restlessness, shakiness and abdominal pain and he is being admitted for acute alcohol withdrawal. #1 acute alcohol withdrawal/intoxication: Patient was admitted for medical stabilization. He is on [facility] protocol with Ativan, vitamin supplement, CIWA protocol. He is slightly tachycardic, blood pressure is elevated. Patient reported improvement of his shakiness and anxiety. His blood alcohol level is highly elevated at 167. Routine blood work was remarkable for potassium of 3.3 which was replaced yesterday. Total bilirubin, AST and alk phosphatase is slightly elevated likely because of chronic alcoholic liver disease. Plan: Close monitoring to avoid DTs as his blood alcohol level is very high, continue same treatment. #2 alcohol abuse: As mentioned above, patient has been drinking heavily for more than 10 years. Plan as above. #3 hypertension: Blood pressure still elevated. He does have history of hypertension but he has not been taking any medication. Plan: Start metoprolol twice daily, IV hydralazine as needed. #4 COPD: Clinically stable, pulse ox is normal on room air. Continue albuterol as needed. #5 seizure disorder: Probably due to alcohol withdrawal. Denied any seizure for long time. He is not on any antiseizure medication. #6 tobacco abuse: NicoDerm patch. #7 substance abuse: Patient admitted smoking marijuana. Urine drug screen is positive for barbiturates and cannabinoids. #8 DVT prophylaxis: Low risk patient, no prophylaxis indicated. This note was generated with [employer] dictation software. It may contain incorrect words, spelling, and punctuation that were not noted in checking the note before signing. Code Visit Inpatient E&M: 56290 Subs Hosp L2
[2017-10-11] MEDS: Multivitamins,Ther W-Minerals Tablet 1 TABLET PO (09:33)
[2017-10-11] MEDS: Pantoprazole Sodium 40 MG Tablet PO (09:35)
[2017-10-11] MEDS: 0.9% NaCl Peripheral Flush Adult/Peds IV ×2 (09:44→21:03)
[2017-10-11] MEDS: Metoprolol Tartrate 25 MG Tablet PO ×2 (10:07→21:02)
[2017-10-11] MEDS: Albuterol 2.5 MG/3 ML VIAL.NEB. INHALATION (10:34)
--- NOTE | 2017-10-11 16:25 | NURSING ---
Care assumed at this time.
[2017-10-12] VITALS (18 sets, daily range): BP systolic 135–163; BP diastolic 97–111; PULSE 88–117; RESP 16–18; TEMP 36.7–37.4; O2SAT 98–99
[2017-10-12] MEDS: LORazepam 1 MG Tablet PO ×3 (02:07→16:45)
[2017-10-12] MEDS: 0.9% NaCl Peripheral Flush Adult/Peds IV ×5 (02:16→22:11)
[2017-10-12] MEDS: Multivitamins,Ther W-Minerals Tablet 1 TABLET PO (07:45)
[2017-10-12] MEDS: Metoprolol Tartrate 25 MG Tablet PO ×2 (07:45→22:11)
--- NOTE | 2017-10-12 09:15 | PCM.PROGNOTE ---
Patient Problems: Active and Suspected Problems Alcohol withdrawal (Acute) Subjective: Chief complaint: Follow-up after admission for acute alcohol withdrawal. Seen and examined. No acute events overnight. He remained stable, no significant complaints. Heart rate still around 100, blood pressure is slightly elevated. - Physical Exam General: Alert, Oriented x3, Cooperative, No apparent distress HEENT: Atraumatic, PERRLA, EOMI Oral: Moist Mucosa, No Gingival or Mucosal Lesions/ Ulcerations Neck: Supple, No JVD, Negative Carotid Bruits, Trachea Midline, Thyroid Normal Size and Texture Lungs: Clear to auscultation, No rhonchi, No wheeze, No rales, Diminished Cardiovascular: Regular rate, Regular Rhythm, Normal S1, Normal S2, PMI Normal, Tachycardic Abdomen: Bowel Sounds Present, Soft, Non Tender, Non-Distended, No Hepato-splenomegaly Extremities: No clubbing, No cyanosis, No edema Skin: No rashes, No breakdown Lymphatic: No Cervical, Supraclavicular, or Inguinal Adenopathy Neurological: Cranial nerves II-XII grossly intact, Neuro grossly intact Psych/Mental Status: Normal Affect, Appropriate Vital Signs Temp Pulse Resp BP Pulse Ox 99.1 F 107 H 18 145/103 H 99 10/12/17 07:34 10/12/17 07:45 10/12/17 07:34 10/12/17 07:45 10/12/17 07:34 Oxygen Delivery Method Room Air Weight: 168 lb 6.401 oz Body Mass Index (BMI) 24.1 Intake and Output for Last 24 Hours 10/10/17 10/11/17 10/12/17 23:59 23:59 23:59 Intake Total 2500 / 2500 600 / 600 Balance 2500 / 2500 600 / 600 Microbiology Past 72 Hours 10/10/17 16:30 Enteric Bacteriology - Final Stool 10/10/17 16:30 C. difficile DNA Amplification - Final Stool Assessment/Plan Active and Suspected Problems Alcohol withdrawal (Acute) This is a 47 years old this is a 47 years old male patient presented to the [facility] office for symptoms of anxiety, restlessness, shakiness and abdominal pain and he is being admitted for acute alcohol withdrawal. #1 acute alcohol withdrawal/intoxication: Been improving, less shakiness and anxiety. He has no more abdominal pain, diarrhea improved as well. Patient was admitted for medical stabilization. He is on [facility] protocol with Ativan, vitamin supplement, CIWA protocol. Heart rate still around 100, blood pressure slightly elevated, started on metoprolol yesterday. Plan: Continue same treatment, anticipate discharge tomorrow morning. #2 alcohol abuse: As mentioned above, patient has been drinking heavily for more than 10 years. Plan as above. #3 hypertension: Started on metoprolol last night, blood pressure slightly on the higher side. Plan to monitor for now, may need to adjust medication tomorrow morning. #4 COPD: Clinically stable, pulse ox is normal on room air. Continue albuterol as needed. #5 seizure disorder: Probably due to alcohol withdrawal. Denied any seizure for long time. He is not on any antiseizure medication. #6 tobacco abuse: NicoDerm patch. #7 substance abuse: Patient admitted smoking marijuana. Urine drug screen is positive for barbiturates and cannabinoids. #8 DVT prophylaxis: Low risk patient, no prophylaxis indicated. This note was generated with [employer] dictation software. It may contain incorrect words, spelling, and punctuation that were not noted in checking the note before signing. Code Visit Inpatient E&M: 78862 Subs Hosp L2
--- NOTE | 2017-10-12 09:18 | PN_ITS ---
Patient Problems: Active and Suspected Problems Alcohol withdrawal (Acute) Subjective: Chief complaint: Follow-up after admission for acute alcohol withdrawal. Seen and examined. No acute events overnight. He remained stable, no significant complaints. Heart rate still around 100, blood pressure is slightly elevated. - Physical Exam General: Alert, Oriented x3, Cooperative, No apparent distress HEENT: Atraumatic, PERRLA, EOMI Oral: Moist Mucosa, No Gingival or Mucosal Lesions/ Ulcerations Neck: Supple, No JVD, Negative Carotid Bruits, Trachea Midline, Thyroid Normal Size and Texture Lungs: Clear to auscultation, No rhonchi, No wheeze, No rales, Diminished Cardiovascular: Regular rate, Regular Rhythm, Normal S1, Normal S2, PMI Normal, Tachycardic Abdomen: Bowel Sounds Present, Soft, Non Tender, Non-Distended, No Hepato- splenomegaly Extremities: No clubbing, No cyanosis, No edema Skin: No rashes, No breakdown Lymphatic: No Cervical, Supraclavicular, or Inguinal Adenopathy Neurological: Cranial nerves II-XII grossly intact, Neuro grossly intact Psych/Mental Status: Normal Affect, Appropriate Vital Signs Temp Pulse Resp BP Pulse Ox 99.1 F 107 H 18 145/103 H 99 10/12/17 07:34 10/12/17 07:45 10/12/17 07:34 10/12/17 07:45 10/12/17 07:34 Oxygen Delivery Method Room Air Weight: 168 lb 6.401 oz Body Mass Index (BMI) 24.1 Intake and Output for Last 24 Hours 10/10/17 10/11/17 10/12/17 23:59 23:59 23:59 Intake Total 2500 / 2500 600 / 600 Balance 2500 / 2500 600 / 600 Microbiology Past 72 Hours 10/10/17 16:30 Enteric Bacteriology - Final Stool 10/10/17 16:30 C. difficile DNA Amplification - Final Stool Assessment/Plan Active and Suspected Problems Alcohol withdrawal (Acute) This is a 47 years old this is a 47 years old male patient presented to the [facility] office for symptoms of anxiety, restlessness, shakiness and abdominal pain and he is being admitted for acute alcohol withdrawal. #1 acute alcohol withdrawal/intoxication: Been improving, less shakiness and anxiety. He has no more abdominal pain, diarrhea improved as well. Patient was admitted for medical stabilization. He is on [facility] protocol with Ativan, vitamin supplement, CIWA protocol. Heart rate still around 100, blood pressure slightly elevated, started on metoprolol yesterday. Plan: Continue same treatment, anticipate discharge tomorrow morning. #2 alcohol abuse: As mentioned above, patient has been drinking heavily for more than 10 years. Plan as above. #3 hypertension: Started on metoprolol last night, blood pressure slightly on the higher side. Plan to monitor for now, may need to adjust medication tomorrow morning. #4 COPD: Clinically stable, pulse ox is normal on room air. Continue albuterol as needed. #5 seizure disorder: Probably due to alcohol withdrawal. Denied any seizure for long time. He is not on any antiseizure medication. #6 tobacco abuse: NicoDerm patch. #7 substance abuse: Patient admitted smoking marijuana. Urine drug screen is positive for barbiturates and cannabinoids. #8 DVT prophylaxis: Low risk patient, no prophylaxis indicated. This note was generated with [employer] dictation software. It may contain incorrect words, spelling, and punctuation that were not noted in checking the note before signing. Code Visit Inpatient E&M: 21185 Subs Hosp L2
[2017-10-13] VITALS (7 sets, daily range): BP systolic 132–138; BP diastolic 92–100; PULSE 81–105; RESP 16–18; TEMP 36.3–37.1; O2SAT 97
[2017-10-13] MEDS: LORazepam 1 MG Tablet PO ×2 (00:32→08:01)
[2017-10-13] MEDS: Multivitamins,Ther W-Minerals Tablet 1 TABLET PO (07:56)
[2017-10-13] MEDS: Metoprolol Tartrate 25 MG Tablet PO (08:02)
--- NOTE | 2017-10-13 08:52 | PCM.DC ---
- Discharge Diagnoses Current Active Problems: Current Active and Chronic Problems Alcohol withdrawal (Acute) COPD (chronic obstructive pulmonary disease) (Chronic) You will use the following diet at home:: Cardiac Your food should be the consistency of: Regular Discharge Activity: Return to Normal Activity Weight Bearing Status: Full weight bearing Call your doctor if you observe: Fever of 101 or Higher, Shortness of breath, Dizziness, Fainting spells, Chest pain, Increased palpitations (irregular heartbeat), Uncontrolled pain Instructions: Controlling High Blood Pressure, Taking Your Blood Pressure, Alcoholism: Getting Help, Alcohol Withdrawal: What to Expect Additional Instructions: Please follow-up with [facility]. Allergies/Adverse Reactions: Allergies acetaminophen [From Vicodin] Adverse Reaction (Verified 09/17/17 05:53) Other PT IS NOT ALLERGIC TO TYLENOL hydrocodone bitartrate [From Vicodin] Adverse Reaction (Verified 09/17/17 05:53) Other Opioids - Morphine Analogues Adverse Reaction (Verified 09/17/17 05:53) Other GIVES ME HORRIBLE NIGHTMARES Medications to take at Discharge Albuterol Sulfate [Proventil Hfa] 6.7 gm IH Q2H PRN PRN #1 hfa.aer.ad 05/27/17 Ranitidine [Zantac] 300 mg PO BID 05/27/17 Ondansetron [Zofran Odt] 4 mg PO Q8H PRN PRN #10 tablet 09/17/17 Chlordiazepoxide [Librium] 25 mg PO TID PRN PRN #30 cap 10/13/17 Folic Acid 0.4 mg PO DAILY@0800 #30 tab 10/13/17 Metoprolol Tartrate [Lopressor (beta alicia)] 50 mg PO BID #90 tab 10/13/17 Multivitamins,Ther W-Minerals [Multivitamin With Minerals] 1 tab PO DAILYCM #30 tab 10/13/17 Pantoprazole Sodium [Protonix] 40 mg PO DAILY #30 tab 10/13/17 Thiamine HCl [B-1] 100 mg PO DAILY #30 tab 10/13/17 The following prescriptions were given: Chlordiazepoxide [Librium] 25 mg PO TID PRN PRN #30 cap PRN Reason: Restless, shakiness, anxiety Folic Acid 0.4 mg PO DAILY@0800 #30 tab Multivitamins,Ther W-Minerals [Multivitamin With Minerals] 1 tab PO DAILYCM #30 tab Pantoprazole Sodium [Protonix] 40 mg PO DAILY #30 tab Thiamine HCl [B-1] 100 mg PO DAILY #30 tab Metoprolol Tartrate [Lopressor (beta alicia)] 50 mg PO BID #90 tab Primary Care Physician: Que Stark MD [Primary Care Provider] - Please follow up with your Primary Care Physician in: 1 week as scheduled.
--- NOTE | 2017-10-13 14:40 | PCM.DC.SUM ---
Discharge Date and Diagnosis Date of Admission: 10/10/17 Date of Discharge: 10/13/17 - Primary Discharge Diagnosis #1 acute alcohol withdrawal/intoxication. #2 newly diagnosed hypertension. #3 alcohol abuse. - Secondary Discharge Diagnosis Chronic Problems COPD (chronic obstructive pulmonary disease) (Chronic) Alcohol abuse (Chronic) Seizure disorder (Chronic) Tobacco abuse (Chronic) Benign essential hypertension (Chronic) Hospital Course and Treatment Procedures: None Summary of Care Provided: Patient seen and examined on the day of discharge and appeared to be stable to be discharged home. Shakiness and restlessness significantly improved. Denied any complaints. His blood pressure remained on the higher side and heart rate has been around 100. - Physical Exam General: Alert, Oriented x3, Cooperative, No apparent distress. HEENT: Atraumatic, PERRLA, EOMI. Neck: Supple, No JVD, Negative Carotid Bruits, Trachea Midline, Thyroid Normal. Lungs: Clear to auscultation, Normal air movement, No rhonchi, No wheeze, No rales. Cardiovascular: Regular rate, Regular Rhythm, Normal S1, Normal S2, PMI Normal. Abdomen: Bowel Sounds Present, Soft, Non Tender, Non-Distended, No Hepato-splenomegaly. Extremities: No clubbing, No cyanosis, No edema Skin: No rashes, No breakdown Neurological: Neuro grossly intact hospital course: The patient is a 47 year old M entered to the [facility] office for symptoms of anxiety, restlessness, shakiness and abdominal pain with diarrhea in context of alcohol abuse for long time and he was admitted for alcohol withdrawal for medical stabilization. On admission, blood alcohol level was 167 consistent with alcohol intoxication, severe poisoning. He was treated with [facility] protocol with tapering course of oral Ativan, multivitamins, folic acid, thiamine and CIWA protocol. His routine blood work was remarkable for slightly elevated total bilirubin and alkaline phosphatase as well as AST which is attributed to chronic liver disease due to alcohol abuse. Other routine blood work was unremarkable. Urine drug screen was positive for barbiturates and cannabinoids. Patient admitted smoking marijuana. His blood pressure was elevated throughout admission as well as heart rate. There was no overt signs of alcohol withdrawal. With above-mentioned treatment, symptoms improved and he remained calm and quite. Patient was started on metoprolol for hypertension but his blood pressure remained on the higher side. Metoprolol increased to 50 mg p.o. twice daily. Patient discharged home in a stable medical condition, discharged on metoprolol 50 mg p.o. twice daily, discharged on folic acid and thiamine as well as Librium as needed, highly recommended to check blood pressure at least twice daily, counseling about alcohol drinking provided, recommended to follow-up with [facility] office as well as PCP in 1 week. Discharge Activity: Return to Normal Activity Weight Bearing Status: Full weight bearing Call your doctor if you observe: Fever of 101 or Higher, Shortness of breath, Dizziness, Fainting spells, Chest pain, Increased palpitations (irregular heartbeat), Uncontrolled pain Home Medications: Medications to take at Discharge Albuterol Sulfate [Proventil Hfa] 6.7 gm IH Q2H PRN PRN #1 hfa.aer.ad 05/27/17 Ranitidine [Zantac] 300 mg PO BID 05/27/17 Ondansetron [Zofran Odt] 4 mg PO Q8H PRN PRN #10 tablet 09/17/17 Chlordiazepoxide [Librium] 25 mg PO TID PRN PRN #30 cap 10/13/17 Folic Acid 0.4 mg PO DAILY@0800 #30 tab 10/13/17 Metoprolol Tartrate [Lopressor (beta alicia)] 50 mg PO BID #90 tab 10/13/17 Multivitamins,Ther W-Minerals [Multivitamin With Minerals] 1 tab PO DAILYCM #30 tab 10/13/17 Pantoprazole Sodium [Protonix] 40 mg PO DAILY #30 tab 10/13/17 Thiamine HCl [B-1] 100 mg PO DAILY #30 tab 10/13/17 Following Prescrptions Were Given to Patient: Chlordiazepoxide [Librium] 25 mg PO TID PRN PRN #30 cap PRN Reason: Restless, shakiness, anxiety Folic Acid 0.4 mg PO DAILY@0800 #30 tab Multivitamins,Ther W-Minerals [Multivitamin With Minerals] 1 tab PO DAILYCM #30 tab Pantoprazole Sodium [Protonix] 40 mg PO DAILY #30 tab Thiamine HCl [B-1] 100 mg PO DAILY #30 tab Metoprolol Tartrate [Lopressor (beta alicia)] 50 mg PO BID #90 tab Primary Care Physician: Que Stark MD [Primary Care Provider] - Please follow up with your Primary Care Physician in: 1 week as scheduled. Patient Instructions: Controlling High Blood Pressure, Taking Your Blood Pressure, Alcoholism: Getting Help, Alcohol Withdrawal: What to Expect Disposition: Home Minutes spent on discharge:: 32 Patient Condition:: Stable Meaningful Use Info Meaningful Use Diagnoses (Choose all that apply): None applicable Code Visit Inpatient E&M: 09355 Disch Hosp
== END 2017-10-13 09:45 | disposition home or self-care (01) | DRG 897 ==
PROVIDERS: Admitting Provider Hospitalist; Family Provider Family Medicine; PCP Family Medicine; Visit Provider Hospitalist
DX: F10.239 Alcohol dependence with withdrawal, unspecified (principal); F10.229 Alcohol dependence with intoxication, unspecified; K70.9 Alcoholic liver disease, unspecified; I10 Essential (primary) hypertension; J44.9 Chronic obstructive pulmonary disease, unspecified; Z23 Encounter for immunization; Z72.0 Tobacco use; Y90.6 Blood alcohol level of 120-199 mg/100 ml; T51.0X1A Toxic effect of ethanol, accidental (unintentional), initial encounter; R19.7 Diarrhea, unspecified; R10.9 Unspecified abdominal pain; R45.1 Restlessness and agitation; F12.90 Cannabis use, unspecified, uncomplicated
CPT/HCPCS: 80053; 80307; 80320; 83690; 85025; 85610; 87493; 87506; 94640; 97802; 99406; 90686; A4216; G0480; J3490

== ENCOUNTER 2017-10-25 11:54 | Emergency (ER) | payer OTHER, SELFPAY ==
[2017-10-25 11:55] VITALS: BP 166/118; PULSE 124; RESP 22; TEMP 36.2; O2SAT 98; BMI 24.2
--- NOTE | 2017-10-25 12:27 | EKG12_ITS ---
Test Reason : NUMBNESS Blood Pressure : / mmHG Vent. Rate : 110 BPM Atrial Rate : 110 BPM P-R Int : 146 ms QRS Dur : 082 ms QT Int : 332 ms P-R-T Axes : 075 068 067 degrees QTc Int : 449 ms Sinus tachycardia Otherwise normal ECG Confirmed by YOUNG BONNER, EVENS ([id number]), newspaper editor OSIEL KHAN ([id number]) on 10/29/2017 2:32:42 PM Referred By: ROSANNA Confirmed By:EVENS VIDAL MD
[2017-10-25 12:43] LABS: Absolute Lymphocyte Count 1.67 X10^3/ul (0.83-4.51); Absolute Neutrophil Count 4.9 X10^3/uL (2.0-7.7); Basophil# 0.03 X10^3/uL; Basophil% 0.4 % (0-1); Eosinophil# 0.11 X10^3/uL; Eosinophils% 1.5 % (0-5); Hematocrit 46.5 % (40-54); Hemoglobin 16.1 g/dl (13.0-16.5); Lymphocyte # 1.67 X10^3/ul (4.0); Lymphocyte % 23.1 % (19-41); Mean Corp Hgb Conc 34.6 g/gl (32-36); Mean Corpuscular Hgb 34.7 pg (27.0-32.0); Mean Corpuscular Volume 100.2 fL (80-94); Mean Platelet Vol. 9.7 fl (6.2-12.0); Monocyte% 6.9 % (0-10); Neutrophil # 4.92 X10^3/uL (2.7-7.7); POSITIVE COUNT NO; POSITIVE DIFFERENTIAL NO; POSITIVE MORPHOLOGY NO; Platelet Count 242 K/mm3 (150-450); RBC Distribution Width SD 54.6 fl (35.1-43.9); Red Blood Count 4.64 M/mm3 (4.6-6.2); White Blood Count 7.2 K/mm3 (4.4-11.0)
[2017-10-25 12:52] LABS: AST(SGOT) 46 U/L (15-37); Alanine Aminotransfer ALT/SGPT 27 U/L (16-61); Albumin, Serum 3.6 g/dL (3.2-5.0); Alkaline Phosphatase 88 U/L (45-117); Anion Gap 14 (5-15); BUN 5 mg/dL (7-18); BUN/Creat Ratio 7.2 RATIO (10-20); Calcium,Total 8.3 mg/dL (8.5-10.1); Chloride 99 mmol/L (98-107); Creatinine, Serum 0.69 mg/dL (0.70-1.30); EST Glomerular Filtration Rate 130 mL/min (>60); Est Glom Filt Rate - Afr Amer 158 mL/min (>60); Estimated Creatinine Clearance 138.12 ml/min; Globulin 3.7 g/dL (2.2-4.2); Glucose 102 mg/dL (74-106); Potassium 3.3 mmol/L (3.5-5.1); Protein, Total 7.3 g/dL (6.4-8.2); Sodium Level 137 mmol/L (136-145)
[2017-10-25 13:08] LABS: Amphetamine Urine VISTA NEGATIVE (<1000 ng/mL); Barbiturate Urine VISTA POSITIVE (< 200 ng/mL); Benzodiazepine Urine VISTA POSITIVE (< 200 ng/mL); Cocaine Urine VISTA NEGATIVE (< 300 ng/mL); Ecstacy Urine VISTA NEGATIVE (< 500 ng/mL); Methadone Urine VISTA NEGATIVE (< 300 ng/mL); PCP Urine VISTA NEGATIVE (< 25 ng/mL); THC Urine VISTA NEGATIVE (< 50 ng/mL); Vista UDS pH Range 6
[2017-10-25 13:10] VITALS: BP 158/108; PULSE 110; RESP 10; O2SAT 97
[2017-10-25 13:16] LABS: Mucous, Urine 0 SEEN /hpf (<or=2+); Red Blood Cells-Urine 0 SEEN /hpf (0-5)
[2017-10-25 13:17] LABS: Color, Urine Yellow (Yellow); Glucose, Dipstick Normal (Normal); Ketone-Dipstick 5 mg/dl (Negative); Leukocyte Esterase-Dipstick 25 /ul (Negative); Nitrite-Dipstick Negative (Negative); Occult Blood-Urine 25 /ul (Negative); Protein-Dipstick 15 mg/dl (Negative); Specific Gravity, Urine 1.015 (1.002-1.030); Urine Bilirubin Dipstick Negative (Negative); Urine Clarity Clear (Clear); Urine Urobilinogen Normal (Normal)
[2017-10-25 13:40] LABS: Bacteria RARE /hpf (None Seen); Hyaline Cast 0-5 SEEN /lpf (0-5); Squamous Epithelial Cells - UA 0-5 SEEN /hpf (0-5); White Blood Cells 0-5 SEEN /hpf (0-5)
[2017-10-25 13:50] LABS: Lactic Acid 3.9 mmol/L (0.4-2.0)
--- NOTE | 2017-10-25 13:53 | ED.RN ---
DR MARTE NOTIFIED LACTIC=3.9.
--- NOTE | 2017-10-25 14:02 | ED.DCSUM_ITS ---
- ER Visit Summary Date of Service: 10/25/17 Chief Complaint: Alcohol withdrawal History of Present Illness: The patient is a 47 M who states that he is having alcohol withdrawal. He notes abdominal pain headache and tremors. No hallucinations or vomiting. He was just admitted into the hospital for over through October 13. He states that he was discharged and started drinking the day after discharge. He never followed up with counseling. Patient states he drinks 1 L of vodka a day. Today he states he has had 6 beers since 8:00 in the morning ending at 11:00 so 1-1/2 hours prior to exam. He is asking for something to eat. Physical Examination: Temperature 97.1 heart rate of 124 respirations are 22 pulse ox is 98%. 141/98 Gen: Well-nourished well-developed Head: Normocephalic atraumatic Eyes: Perrl EOMI ENT: TMs clear no rhinorrhea moist mucous membranes Neck: Supple no lymphadenopathy no JVD nontender CVS: Tachycardic regular rate rhythm no murmurs normal S1-S2 Respiratory: No distress clear to auscultation bilaterally chest nontender Abdomen: Soft nontender nondistended normal bowel sounds no masses Back: Nontender Extremity: Nontender no edema Skin: Normal color no rash Neuro: alert orientated ?3 CN II-XII intact normal strength sensation reflexes gait cerebellar patient has a resting tremor of the upper extremities but not the lower. Psych: Normal affect normal mood Test Results: Alcohol level 155. Toxicology shows benzodiazepine and barbiturates. Lactic acid 3.9. Potassium 3.3. Liver enzymes showed an AST of 46. Emergency Department Course and Treatment: Patient reportedly received a phone call from a rehab facility and he would like to sign out and go to their facility for detox. Patient will sign AMA paperwork given his vitals and his lactic acid. I disagree with his decision but he appears to have the capacity to make this decision. Impression: 1. Alcoholism 2. Alcohol withdrawal 3. Elevated lactate 4. Left AMA This note was generated with [employer] dictation software. It may contain incorrect words, spelling, and punctuation that were not noted in review of the chart prior to signing ED Disposition - Plan for ED Patient: Disposition: Against Medical Advice Chief Complaint: Subst Abuse Instructions: ED Withdrawal Alcohol, ED Refusal Of Further Treatment, ED Alcohol Abuse Referrals: Que Stark MD [Primary Care Provider] - As soon as possible
[2017-10-25 14:03] VITALS: BP 141/98; PULSE 94; RESP 18; O2SAT 97
--- NOTE | 2017-10-25 14:04 | ED.RN ---
PT RECEIVED PHONE CALL THAT HE HAD BEEN ACCEPTED TO [facility], PT REQUESTING TO LEAVE IMMEDIATELY, HAS TRANSPORTATION COMING TO PICK HIM UP AT HIS HOME, TRANSPORTATION WILL NOT COME TO [facility] FOR SPORTS PSYCHOLOGIST. [facility] BREAK OFF WORKER CONTACTED, WILL GIVE PT RIDE HOME SO HE WILL NOT MISS RIDE TO [facility]. PT LEAVING AMA, SIGNED AMA PAPERS, VOICES UNDERSTANDING ON RISKS OF LEAVING.
[2017-10-25 17:09] LABS: Reflex Lactate? Y
== END 2017-10-25 14:07 | disposition left against medical advice (07) ==
PROVIDERS: Emergency Provider Emergency Medicine; Family Provider Family Medicine; PCP Family Medicine
DX: F10.239 Alcohol dependence with withdrawal, unspecified (principal); Y90.6 Blood alcohol level of 120-199 mg/100 ml; R79.9 Abnormal finding of blood chemistry, unspecified; Z72.0 Tobacco use
CPT/HCPCS: 80053; 80307; 80320; 81001; 83605; 85025; 93005; 99281; A4216; G0480

== ENCOUNTER 2018-02-11 12:38 | Inpatient (IN) | payer OTHER, SELFPAY ==
[2018-02-11 12:50] VITALS: BMI 26.2; BMI 26.3
--- NOTE | 2018-02-11 13:14 | PCM.HP.STD ---
Problem List (1) Alcohol withdrawal Status: Acute History of Present Illness Date of Admission: 02/11/18 Chief Complaint: alcohol withdrawal The patient is a 47 year old M been drinking 1/5 of vodka per day presents voluntarily seeking acute alcohol withdrawal treatment. Patient was admitted here in September and was on Ativan for his alcohol withdrawal treatment. Patient states that he has been phenobarbital in the past which seems to have helped him better than the benzodiazepines. He is declining of nausea, vomiting, diarrhea, abdominal cramps. Denies any visual or auditory hallucinations at this time. Patient had initial intake [facility] . Patient will be admitted to the medical floor for medical stabilization for her alcohol withdrawal. [] Past Medical History Past Medical History (Chronic Problems): Chronic Problems COPD (chronic obstructive pulmonary disease) (Chronic) Alcohol abuse (Chronic) Seizure disorder (Chronic) Tobacco abuse (Chronic) Benign essential hypertension (Chronic) Allergies acetaminophen [From Vicodin] Adverse Reaction (Verified 09/17/17 05:53) Other PT IS NOT ALLERGIC TO TYLENOL hydrocodone bitartrate [From Vicodin] Adverse Reaction (Verified 09/17/17 05:53) Other Opioids - Morphine Analogues Adverse Reaction (Verified 09/17/17 05:53) Other GIVES ME HORRIBLE NIGHTMARES Home Medications: Ambulatory Orders Medication Instructions Recorded Albuterol Sulfate [Proventil Hfa] 6.7 gm IH Q2H PRN PRN #1 hfa.aer.ad 05/27/17 Ranitidine [Zantac] 300 mg PO BID 05/27/17 Ondansetron [Zofran Odt] 4 mg PO Q8H PRN PRN #10 tablet 09/17/17 Chlordiazepoxide [Librium] 25 mg PO TID PRN PRN #30 cap 10/13/17 Folic Acid 0.4 mg PO DAILY@0800 #30 tab 10/13/17 Metoprolol Tartrate [Lopressor 50 mg PO BID #90 tab 10/13/17 (beta alicia)] Multivitamins,Ther W-Minerals 1 tab PO DAILYCM #30 tab 10/13/17 [Multivitamin With Minerals] Pantoprazole Sodium [Protonix] 40 mg PO DAILY #30 tab 10/13/17 Thiamine HCl [B-1] 100 mg PO DAILY #30 tab 10/13/17 Surgical History: cholecystectomy Psychiatric History: No pertinent psych hx Smoking Status: Heavy Smoker (>10/day) Tobacco Use: Cigarettes Alcohol: Heavy Drugs: Marijuana - *Family History Maternal History Items: No pertinent history, - - from suicide Paternal History Items: - - Peptic ulcer disease. from suicide Review of Systems Constitutional: Reports: Chills, Fever. Denies: Anorexia Eyes: Denies: Blurred vision, Double vision HEENT: Denies: Head Aches, Sinus Congestion, Sinus Drainage Cardiovascular: Reports: Chest Pain. Denies: Edema Respiratory: Denies: Cough, Shortness of breath at rest, Sputum production Gastrointestinal: Reports: Abdominal Pain, Diarrhea, Nausea, Vomiting Genitourinary: Denies: Dysuria Musculoskeletal: Denies: Joint Pain, Joint Tenderness Skin: Denies: Dryness, Lesions Neurological: Reports: Tremor, Seizures - From alcohol withdrawal. Denies: Focal weakness, Numbness, Tingling Psychiatric: Reports: Anxiety. Denies: Depression, Homicidal Ideations, Suicidal Ideations Endocrine: Denies: Change in Body Habitus, Heat/ Cold Intolerance Hematologic/ Lymphatic: Denies: Easy Bruising, Easy Bleeding, Hx of blood clot Comment: Otherwise all review systems are negative except for as mentioned above in the HPI and review of systems. VTE Information - Inpt Only VTE Present on Admission: No VTE Mechan Device Prophylaxis: None VTE Pharm Prophylaxis ordered?: No Reason prophylaxis not ordered:: Procedure Not Indicated - Physical Exam General: Alert, - - Anxious. Afebrile. HEENT: Atraumatic, Normocephalic, - - Scleral icterus. Bilateral lateral nystagmus Oral: Moist Mucosa, No Gingival or Mucosal Lesions/ Ulcerations Neck: No Nodes, Thyroid Normal Size and Texture Lungs: Clear to auscultation, Normal air movement, No rhonchi, No wheeze Cardiovascular: Regular rate, Regular Rhythm, Normal S1, Normal S2, No murmurs Abdomen: Bowel Sounds Present, Soft, Non Tender, Non-Distended, No Hepato-splenomegaly Extremities: No clubbing, No cyanosis, No edema, No Calf Tenderness Skin: No rashes, No breakdown Musculoskeletal: No Tenderness to Palpation of Joints or Extremities, No Muscle Wasting Neurological: Deep Tendon Reflexes 2+/4 and Symmetrical, - - No clonus Psych/Mental Status: Agitated, Anxious Weight: 83.007 kg Body Mass Index (BMI) 26.2 Assessment/Plan All Active Problems Alcohol withdrawal (Acute) 1. Acute alcohol withdrawal I calculated a CIWA score of 18. Patient is requesting phenobarbital over benzodiazepines. The plan will be to start the patient on phenobarbital 60 mg. So will be 60 mg 4 times daily for 1 day then 3 times daily for 1 day then 2 times daily for 1 day and then 30 mg twice daily for 1 day and then 60 mg is. Thiamine and folate [facility] to facilitate outpatient treatment modalities for the patient. Patient will also have other medications to help with other somatic complaints. Patient's length of stay will vary on his symptoms and the severity of his alcohol withdrawal. It is possible that it could be just a couple days too much longer trigger the patient developed delirium tremens. 2. DVT prophylaxis: Patient is low risk and does not require DVT prophylaxis at this time. Code Visit Inpatient E&M: 75620 Init Hosp L3
--- NOTE | 2018-02-11 13:21 | HP.PCM_ITS ---
Problem List (1) Alcohol withdrawal Status: Acute History of Present Illness Date of Admission: 02/11/18 Chief Complaint: alcohol withdrawal The patient is a 47 year old M been drinking 1/5 of vodka per day presents voluntarily seeking acute alcohol withdrawal treatment. Patient was admitted here in September and was on Ativan for his alcohol withdrawal treatment. Patient states that he has been phenobarbital in the past which seems to have helped him better than the benzodiazepines. He is declining of nausea, vomiting , diarrhea, abdominal cramps. Denies any visual or auditory hallucinations at this time. Patient had initial intake [facility] . Patient will be admitted to the medical floor for medical stabilization for her alcohol withdrawal. [] Past Medical History Past Medical History (Chronic Problems): Chronic Problems COPD (chronic obstructive pulmonary disease) (Chronic) Alcohol abuse (Chronic) Seizure disorder (Chronic) Tobacco abuse (Chronic) Benign essential hypertension (Chronic) Allergies acetaminophen [From Vicodin] Adverse Reaction (Verified 09/17/17 05:53) Other PT IS NOT ALLERGIC TO TYLENOL hydrocodone bitartrate [From Vicodin] Adverse Reaction (Verified 09/17/17 05:53) Other Opioids - Morphine Analogues Adverse Reaction (Verified 09/17/17 05:53) Other GIVES ME HORRIBLE NIGHTMARES Home Medications: Ambulatory Orders Medication Instructions Recorded Albuterol Sulfate [Proventil Hfa] 6.7 gm IH Q2H PRN PRN #1 [id number].aer.[email or web address] 05/27/17 Ranitidine [Zantac] 300 mg PO BID 05/27/17 Ondansetron [Zofran Odt] 4 mg PO Q8H PRN PRN #10 tablet 09/17/17 Chlordiazepoxide [Librium] 25 mg PO TID PRN PRN #30 cap 10/13/17 Folic Acid 0.4 mg PO DAILY@0800 #30 tab 10/13/17 Metoprolol Tartrate [Lopressor 50 mg PO BID #90 tab 10/13/17 (beta alicia)] Multivitamins,Ther W-Minerals 1 tab PO DAILYCM #30 tab 10/13/17 [Multivitamin With Minerals] Pantoprazole Sodium [Protonix] 40 mg PO DAILY #30 tab 10/13/17 Thiamine HCl [B-1] 100 mg PO DAILY #30 tab 10/13/17 Surgical History: cholecystectomy Psychiatric History: No pertinent psych hx Smoking Status: Heavy Smoker (>10/day) Tobacco Use: Cigarettes Alcohol: Heavy Drugs: Marijuana - *Family History Maternal History Items: No pertinent history, - - from suicide Paternal History Items: - - Peptic ulcer disease. from suicide Review of Systems Constitutional: Reports: Chills, Fever. Denies: Anorexia Eyes: Denies: Blurred vision, Double vision HEENT: Denies: Head Aches, Sinus Congestion, Sinus Drainage Cardiovascular: Reports: Chest Pain. Denies: Edema Respiratory: Denies: Cough, Shortness of breath at rest, Sputum production Gastrointestinal: Reports: Abdominal Pain, Diarrhea, Nausea, Vomiting Genitourinary: Denies: Dysuria Musculoskeletal: Denies: Joint Pain, Joint Tenderness Skin: Denies: Dryness, Lesions Neurological: Reports: Tremor, Seizures - From alcohol withdrawal. Denies: Focal weakness, Numbness, Tingling Psychiatric: Reports: Anxiety. Denies: Depression, Homicidal Ideations, Suicidal Ideations Endocrine: Denies: Change in Body Habitus, Heat/ Cold Intolerance Hematologic/ Lymphatic: Denies: Easy Bruising, Easy Bleeding, Hx of blood clot Comment: Otherwise all review systems are negative except for as mentioned above in the HPI and review of systems. VTE Information - Inpt Only VTE Present on Admission: No VTE Mechan Device Prophylaxis: None VTE Pharm Prophylaxis ordered?: No Reason prophylaxis not ordered:: Procedure Not Indicated - Physical Exam General: Alert, - - Anxious. Afebrile. HEENT: Atraumatic, Normocephalic, - - Scleral icterus. Bilateral lateral nystagmus Oral: Moist Mucosa, No Gingival or Mucosal Lesions/ Ulcerations Neck: No Nodes, Thyroid Normal Size and Texture Lungs: Clear to auscultation, Normal air movement, No rhonchi, No wheeze Cardiovascular: Regular rate, Regular Rhythm, Normal S1, Normal S2, No murmurs Abdomen: Bowel Sounds Present, Soft, Non Tender, Non-Distended, No Hepato- splenomegaly Extremities: No clubbing, No cyanosis, No edema, No Calf Tenderness Skin: No rashes, No breakdown Musculoskeletal: No Tenderness to Palpation of Joints or Extremities, No Muscle Wasting Neurological: Deep Tendon Reflexes 2+/4 and Symmetrical, - - No clonus Psych/Mental Status: Agitated, Anxious Weight: 83.007 kg Body Mass Index (BMI) 26.2 Assessment/Plan All Active Problems Alcohol withdrawal (Acute) 1. Acute alcohol withdrawal * I calculated a CIWA score of 18. * Patient is requesting phenobarbital over benzodiazepines. The plan will be to start the patient on phenobarbital 60 mg. So will be 60 mg 4 times daily for 1 day then 3 times daily for 1 day then 2 times daily for 1 day and then 30 mg twice daily for 1 day and then 60 mg is. * Thiamine and folate * [facility] to facilitate outpatient treatment modalities for the patient. * Patient will also have other medications to help with other somatic complaints. * Patient's length of stay will vary on his symptoms and the severity of his alcohol withdrawal. It is possible that it could be just a couple days too much longer trigger the patient developed delirium tremens. 2. DVT prophylaxis: Patient is low risk and does not require DVT prophylaxis at this time. Code Visit Inpatient E&M: 78414 Init Hosp L3
[2018-02-11 13:52] LABS: Absolute Lymphocyte Count 2.22 X10^3/ul (0.83-4.51); Absolute Neutrophil Count 6.7 X10^3/uL (2.0-7.7); Basophil# 0.02 X10^3/uL; Basophil% 0.2 % (0-1); Eosinophil# 0.05 X10^3/uL; Eosinophils% 0.5 % (0-5); Hematocrit 51.4 % (40-54); Lymphocyte # 2.22 X10^3/ul (4.0); Lymphocyte % 22.9 % (19-41); Mean Corp Hgb Conc 35.8 g/gl (32-36); Mean Corpuscular Hgb 32.9 pg (27.0-32.0); Mean Corpuscular Volume 91.9 fL (80-94); Mean Platelet Vol. 9.5 fl (6.2-12.0); Monocyte# 0.72 X10^3/uL; Monocyte% 7.4 % (0-10); Neutrophil # 6.67 X10^3/uL (2.7-7.7); Neutrophil % 68.8 % (47-70); Platelet Count 164 K/mm3 (150-450); RBC Distribution Width CV 15.7 % (11.6-14.6); RBC Distribution Width SD 52.9 fl (35.1-43.9); Red Blood Count 5.59 M/mm3 (4.6-6.2); White Blood Count 9.7 K/mm3 (4.4-11.0)
[2018-02-11 13:54] LABS: International Normalized Ratio 1.1; Prothrombin Time (Protime)PT. 14.2 SECONDS (11.7-14.9)
[2018-02-11 14:00] LABS: Hemoglobin 18.4 g/dl (13.0-16.5); POSITIVE COUNT NO; POSITIVE DIFFERENTIAL NO; POSITIVE MORPHOLOGY NO
[2018-02-11] MEDS: Ondansetron ODT 4 MG Tablet PO ×2 (14:10→20:15)
[2018-02-11] MEDS: Dicyclomine 10 MG Capsule 20 MG PO ×2 (14:10→20:15)
[2018-02-11] MEDS: Acetaminophen 500 MG Tablet PO (14:10)
[2018-02-11 14:12] VITALS: BP 157/110; PULSE 102; RESP 22
[2018-02-11 14:26] LABS: ALB/GLOB Ratio 0.9 RATIO (0.9-2.4); AST(SGOT) 715 U/L (15-37); Alanine Aminotransfer ALT/SGPT 208 U/L (16-61); Albumin, Serum 3.6 g/dL (3.2-5.0); Alkaline Phosphatase 201 U/L (45-117); Anion Gap 19 (5-15); BUN 10 mg/dL (7-18); BUN/Creat Ratio 12.7 RATIO (10-20); Calcium,Total 7.8 mg/dL (8.5-10.1); Chloride 98 mmol/L (98-107); Creatinine, Serum 0.79 mg/dL (0.70-1.30); EST Glomerular Filtration Rate 113 mL/min (>60); Est Glom Filt Rate - Afr Amer 136 mL/min (>60); Estimated Creatinine Clearance 120.64 ml/min; Globulin 3.9 g/dL (2.2-4.2); Glucose 118 mg/dL (74-106); Protein, Total 7.5 g/dL (6.4-8.2); Sodium Level 133 mmol/L (136-145)
--- NOTE | 2018-02-11 14:43 | CHAPLAIN ---
Type of Pastoral Visit _x__ Initial Visit ___ Follow-up Visit ___ On-call Visit ___ General Patient Visit ___ Spiritual Assessment ___ Family Conference ___ Bereavement ___ Rapid Response ___ Code Blue ___ Other (describe below) Pastoral Care Referral From _x__ Patient ___ Family ___ Nurse ___ Physician ___ C 13 Catapult Operator ___ Rn Perioperative ___ Other (describe below) Sacrament/Intervention _x__ Active listening ___ Anointing ___ Restoration ___ Bereavement ___ Communion _x__ Yomaira exploration ___ _x__ Life review _x__ Prayer ___ Reconciliation ___ Sacrament of Sick _x__ Supportive presence ___ Wedding ___ Other (describe below) Pastoral Comments patient describes his feelings of shame at being in this situation again; pt has a personal yomaira background but admits his struggles to live by what he knows is right; pt welcomes and wants spiritual support and prayer while he is undergoing his medical stabilization
[2018-02-11] MEDS: Phenobarbital 20 MG/5 ML UDC 60 MG PO ×2 (14:51→20:16)
[2018-02-11] MEDS: Lactated Ringers 1,000 ML 125 ML IV (14:53)
[2018-02-11 17:26] VITALS: BP 148/88; PULSE 118; RESP 22; TEMP 37.1
[2018-02-11] MEDS: LORazepam 1 MG Tablet PO ×2 (18:21→21:47)
--- NOTE | 2018-02-11 19:33 | NURSING ---
c/o chest pain. worse then it was when i first came in. feels like someone is sitting on my chest. Has had the same feeling at home before and usually pain goes away. CPS here performing 12 lead EKG at this time. Then I will get VS.
[2018-02-11 19:36] VITALS: BP 150/98; PULSE 108; RESP 20; TEMP 36.7; O2SAT 94
[2018-02-11 19:46] VITALS: BP 150/98; PULSE 108; RESP 20; TEMP 36.7
[2018-02-11 19:55] VITALS: PULSE 108; RESP 22; O2SAT 94
[2018-02-11] MEDS: traZODone 50 MG Tablet PO (21:47)
[2018-02-11] MEDS: NYSTATIN 500,000 UNIT/5 ML UDC 500000 UNIT PO (22:16)
[2018-02-11] MEDS: proMETHazine 25 MG/ML Syringe 12.5 MG IV (22:16)
[2018-02-11] MEDS: 0.9% NaCl Peripheral Flush Adult/Peds IV (23:10)
[2018-02-12 01:16] VITALS: BP 154/82; PULSE 112; RESP 18; TEMP 37.4
[2018-02-12] MEDS: Phenobarbital 20 MG/5 ML UDC 60 MG PO ×5 (01:17→22:24)
[2018-02-12] MEDS: LORazepam 1 MG Tablet PO ×6 (01:18→20:14)
[2018-02-12] MEDS: Ondansetron ODT 4 MG Tablet PO ×2 (02:16→10:01)
[2018-02-12] MEDS: Dicyclomine 10 MG Capsule 20 MG PO ×3 (02:16→17:05)
[2018-02-12 04:41] VITALS: BP 166/90; PULSE 115; RESP 18; TEMP 37.7
[2018-02-12] MEDS: proMETHazine 25 MG/ML Syringe 12.5 MG IV (04:43)
[2018-02-12] MEDS: 0.9% NaCl Peripheral Flush Adult/Peds IV (04:43)
[2018-02-12 09:43] VITALS: BP 146/102; PULSE 97; RESP 16; TEMP 37.2; O2SAT 97
[2018-02-12 09:45] VITALS: BP 146/102; PULSE 96; RESP 16; TEMP 37.2
[2018-02-12] MEDS: Methocarbamol 750 MG Tablet PO ×3 (10:02→16:54)
[2018-02-12] MEDS: Folic Acid 1 MG Tablet PO ×2 (10:02→10:26)
[2018-02-12] MEDS: Thiamine Hydrochloride 100 MG Tablet PO ×2 (10:02→10:26)
[2018-02-12] MEDS: NYSTATIN 500,000 UNIT/5 ML UDC 500000 UNIT PO (10:02)
--- NOTE | 2018-02-12 10:06 | PCM.PN.HOSP ---
Patient Problems: Active and Suspected Problems Alcohol withdrawal (Acute) Subjective: Still with tremors, nausea, abdominal cramps. Patient said that his abdominal cramps are more similar to when he has had his reflux in the past. Vitals/I&O's: Vital Signs Temp Pulse Resp BP Pulse Ox 37.2 C 96 16 146/102 H 97 02/12/18 09:45 02/12/18 09:45 02/12/18 09:45 02/12/18 09:45 02/12/18 09:43 Oxygen Delivery Method Room Air Weight: 83.007 kg Body Mass Index (BMI) 26.2 Intake and Output for Last 24 Hours 02/10/18 02/11/18 02/12/18 23:59 23:59 23:59 Intake Total 1407 / 1407 1189 / 1189 Output Total 300 / 300 Balance 1407 / 1407 889 / 889 General: Alert, No apparent distress, - - More:. Slightly diaphoretic. HEENT: Atraumatic, Normocephalic Neck: No Nodes, Thyroid Normal Size and Texture Lungs: Clear to auscultation, Normal air movement, No rhonchi, No wheeze Cardiovascular: Regular rate, Regular Rhythm, Normal S1, Normal S2, No murmurs Abdomen: Bowel Sounds Present, Soft, Non Tender, Non-Distended, No Hepato-splenomegaly Extremities: No edema, No Calf Tenderness Skin: No rashes, No breakdown Psych/Mental Status: Normal Affect, Appropriate Laboratory Results 02/11/18 13:37: WBC 9.7, RBC 5.59, Hgb 18.4 H*, Hct 51.4, MCV 91.9, MCH 32.9 H, MCHC 35.8, RDW 15.7 H, RDW Differential 52.9 H, Plt Count 164, MPV 9.5, Immature Gran % (Auto) 0.200, Neut % (Auto) 68.8, Lymph % (Auto) 22.9, [place] % (Auto) 7.4, Eos % (Auto) 0.5, Baso % (Auto) 0.2, Absolute Neuts (auto) 6.7, Absolute Lymphs (auto) 2.22, Total Counted Not Reportable, Diff Path Review December02/11/18 13:37: PT 14.2, INR 1.1 02/11/18 13:37: Sodium 133 L, Potassium 4.0, Chloride 98, Carbon Dioxide 16.0 L, Anion Gap 19 H, BUN 10, Creatinine 0.79, Estim Creat Clear Calc 120.64, Est GFR (MDRD) Af Amer 136, Est GFR (MDRD) Non-Af 113, BUN/Creatinine Ratio 12.7, Glucose 118 H, Calcium 7.8 L, Total Bilirubin 3.20 H, AST 715 H, ALT 208 H, Alkaline Phosphatase 201 H, Total Protein 7.5, Albumin 3.6, Globulin 3.9, Albumin/Globulin Ratio 0.9 02/11/18 20:12: Troponin I < 0.015 Current Medications Acetaminophen (Tylenol) 500 mg PO Q4H PRN PRN PRN Reason: Temp > 100.4 F Last Admin: 02/11/18 14:10 Dose: 500 mg Albuterol Sulfate (Ventolin Hfa (Sp)) puff INHALATION Q2H PRN PRN PRN Reason: WHEEZING Dicyclomine HCl (Bentyl) 20 mg PO Q6H PRN PRN PRN Reason: abdominal discomfort Last Admin: 02/12/18 02:16 Dose: 20 mg Folic Acid (Folic Acid) 1 mg PO DAILY@0800 [facility] Last Admin: 02/12/18 10:02 Dose: 1 mg Ibuprofen (Motrin) 600 mg PO Q8H PRN PRN PRN Reason: Mild-Moderate Pain (1-5/10) Loperamide HCl (Imodium) 2 - 4 mg PO UD PRN PRN Reason: LOOSE STOOLS Lorazepam (Ativan) 1 mg PO Q4H [place] PRN Reason: Taper Stop: 02/14/18 21:59 Last Admin: 02/12/18 10:02 Dose: 1 mg Magnesium Hydroxide (Milk Of Magnesia) 30 ml PO DAILY PRN PRN PRN Reason: Constipation Methocarbamol (Methocarbamol) 750 mg PO Q6H PRN PRN PRN Reason: Muscle Aches Last Admin: 02/12/18 10:02 Dose: 750 mg Nicotine (Nicoderm Cq (Pbkc)) 21 mg TRANSDERM. DAILY [facility] Last Admin: 02/12/18 10:03 Dose: 21 mg Non-Formulary Medication (Olanzapine [Olanzapine Odt]) 10 mg PO TID [facility] Non-Formulary Medication (Ranitidine) 300 mg PO BID [facility] Nystatin (Nystatin) 500,000 unit PO 4X/DAY [facility] Last Admin: 02/12/18 10:02 Dose: 500,000 unit Ondansetron HCl (Zofran Odt) 4 mg PO Q6H PRN PRN PRN Reason: NAUSEA Last Admin: 02/12/18 10:01 Dose: 4 mg Ondansetron HCl (Zofran Odt) 4 mg PO Q8H PRN PRN PRN Reason: VOMITING Pantoprazole Sodium (Protonix) 40 mg PO DAILY [facility] Phenobarbital (Phenobarbital) 60 mg PO TID [facility] Stop: 02/13/18 06:01 Phenobarbital (Phenobarbital) 60 mg PO BID [facility] Stop: 02/14/18 10:01 Phenobarbital (Phenobarbital) 30 mg PO BID [facility] Stop: 02/15/18 10:01 Phenobarbital (Phenobarbital) 60 mg PO Q6H PRN PRN Reason: CIWA score > 15 Promethazine HCl (Phenergan) 12.5 mg IV Q6H PRN PRN PRN Reason: NAUSEA/VOMITING Last Admin: 02/12/18 04:43 Dose: 12.5 mg Propranolol HCl (Inderal) 40 mg PO DAILY [facility] Sodium Chloride () 5 - 30 ml IV UD PRN PRN Reason: SALINE FLUSH Last Admin: 02/12/18 04:43 Dose: 20 ml [facility] Last Admin: 02/12/18 10:02 Dose: 100 mg Trazodone HCl (Desyrel) 50 mg PO QHS [facility] Last Admin: 02/11/18 21:47 Dose: 50 mg Medical Necessity - Tobacco Use Smoking Status: Heavy Smoker (>10/day) Tobacco Use: Cigarettes Assessment/Plan All Active Problems Alcohol withdrawal (Acute) 1. Acute alcohol withdrawal I calculated a CIWA score of 11 Started on phenobarbital, but ativan had to be added for his symptoms. The plan will be to start the patient on phenobarbital 60 mg. So will be 60 mg 4 times daily for 1 day then 3 times daily for 1 day then 2 times daily for 1 day and then 30 mg twice daily for 1 day and then 60 mg is. Thiamine and folate [facility] to facilitate outpatient treatment modalities for the patient. Patient will also have other medications to help with other somatic complaints. Patient's length of stay will vary on his symptoms and the severity of his alcohol withdrawal. It is possible that it could be just a couple days too much longer trigger the patient developed delirium tremens. 2. DVT prophylaxis: Patient is low risk and does not require DVT prophylaxis at this time. Code Visit Inpatient E&M: 68032 Subs Hosp L2
--- NOTE | 2018-02-12 10:10 | PN_ITS ---
Patient Problems: Active and Suspected Problems Alcohol withdrawal (Acute) Subjective: Still with tremors, nausea, abdominal cramps. Patient said that his abdominal cramps are more similar to when he has had his reflux in the past. Vitals/I&O's: Vital Signs Temp Pulse Resp BP Pulse Ox 37.2 C 96 16 146/102 H 97 02/12/18 09:45 02/12/18 09:45 02/12/18 09:45 02/12/18 09:45 02/12/18 09:43 Oxygen Delivery Method Room Air Weight: 83.007 kg Body Mass Index (BMI) 26.2 Intake and Output for Last 24 Hours 02/10/18 02/11/18 02/12/18 23:59 23:59 23:59 Intake Total 1407 / 1407 1189 / 1189 Output Total 300 / 300 Balance 1407 / 1407 889 / 889 General: Alert, No apparent distress, - - More:. Slightly diaphoretic. HEENT: Atraumatic, Normocephalic Neck: No Nodes, Thyroid Normal Size and Texture Lungs: Clear to auscultation, Normal air movement, No rhonchi, No wheeze Cardiovascular: Regular rate, Regular Rhythm, Normal S1, Normal S2, No murmurs Abdomen: Bowel Sounds Present, Soft, Non Tender, Non-Distended, No Hepato- splenomegaly Extremities: No edema, No Calf Tenderness Skin: No rashes, No breakdown Psych/Mental Status: Normal Affect, Appropriate Laboratory Results 02/11/18 13:37: WBC 9.7, RBC 5.59, Hgb 18.4 H*, Hct 51.4, MCV 91.9, MCH 32.9 H, MCHC 35.8, RDW 15.7 H, RDW Differential 52.9 H, Plt Count 164, MPV 9.5, Immature Gran % (Auto) 0.200, Neut % (Auto) 68.8, Lymph % (Auto) 22.9, [place] % ( Auto) 7.4, Eos % (Auto) 0.5, Baso % (Auto) 0.2, Absolute Neuts (auto) 6.7, Absolute Lymphs (auto) 2.22, Total Counted Not Reportable, Diff Path Review December02/11/18 13:37: PT 14.2, INR 1.1 02/11/18 13:37: Sodium 133 L, Potassium 4.0, Chloride 98, Carbon Dioxide 16.0 L , Anion Gap 19 H, BUN 10, Creatinine 0.79, Estim Creat Clear Calc 120.64, Est GFR (MDRD) Af Amer 136, Est GFR (MDRD) Non-Af 113, BUN/Creatinine Ratio 12.7, Glucose 118 H, Calcium 7.8 L, Total Bilirubin 3.20 H, AST 715 H, ALT 208 H, Alkaline Phosphatase 201 H, Total Protein 7.5, Albumin 3.6, Globulin 3.9, Albumin/Globulin Ratio 0.9 02/11/18 20:12: Troponin I < 0.015 Current Medications Acetaminophen (Tylenol) 500 mg PO Q4H PRN PRN PRN Reason: Temp > 100.4 F Last Admin: 02/11/18 14:10 Dose: 500 mg Albuterol Sulfate (Ventolin Hfa (Sp)) puff INHALATION Q2H PRN PRN PRN Reason: WHEEZING Dicyclomine HCl (Bentyl) 20 mg PO Q6H PRN PRN PRN Reason: abdominal discomfort Last Admin: 02/12/18 02:16 Dose: 20 mg Folic Acid (Folic Acid) 1 mg PO DAILY@0800 [facility] Last Admin: 02/12/18 10:02 Dose: 1 mg Ibuprofen (Motrin) 600 mg PO Q8H PRN PRN PRN Reason: Mild-Moderate Pain (1-5/10) Loperamide HCl (Imodium) 2 - 4 mg PO UD PRN PRN Reason: LOOSE STOOLS Lorazepam (Ativan) 1 mg PO Q4H [place] PRN Reason: Taper Stop: 02/14/18 21:59 Last Admin: 02/12/18 10:02 Dose: 1 mg Magnesium Hydroxide (Milk Of Magnesia) 30 ml PO DAILY PRN PRN PRN Reason: Constipation Methocarbamol (Methocarbamol) 750 mg PO Q6H PRN PRN PRN Reason: Muscle Aches Last Admin: 02/12/18 10:02 Dose: 750 mg Nicotine (Nicoderm Cq (Pbkc)) 21 mg TRANSDERM. DAILY [facility] Last Admin: 02/12/18 10:03 Dose: 21 mg Non-Formulary Medication (Olanzapine [Olanzapine Odt]) 10 mg PO TID [facility] Non-Formulary Medication (Ranitidine) 300 mg PO BID [facility] Nystatin (Nystatin) 500,000 unit PO 4X/DAY [facility] Last Admin: 02/12/18 10:02 Dose: 500,000 unit Ondansetron HCl (Zofran Odt) 4 mg PO Q6H PRN PRN PRN Reason: NAUSEA Last Admin: 02/12/18 10:01 Dose: 4 mg Ondansetron HCl (Zofran Odt) 4 mg PO Q8H PRN PRN PRN Reason: VOMITING Pantoprazole Sodium (Protonix) 40 mg PO DAILY [facility] Phenobarbital (Phenobarbital) 60 mg PO TID [facility] Stop: 02/13/18 06:01 Phenobarbital (Phenobarbital) 60 mg PO BID [facility] Stop: 02/14/18 10:01 Phenobarbital (Phenobarbital) 30 mg PO BID [facility] Stop: 02/15/18 10:01 Phenobarbital (Phenobarbital) 60 mg PO Q6H PRN PRN Reason: CIWA score > 15 Promethazine HCl (Phenergan) 12.5 mg IV Q6H PRN PRN PRN Reason: NAUSEA/VOMITING Last Admin: 02/12/18 04:43 Dose: 12.5 mg Propranolol HCl (Inderal) 40 mg PO DAILY [facility] Sodium Chloride () 5 - 30 ml IV UD PRN PRN Reason: SALINE FLUSH Last Admin: 02/12/18 04:43 Dose: 20 ml [facility]) [facility] Last Admin: 02/12/18 10:02 Dose: 100 mg Trazodone HCl (Desyrel) 50 mg PO QHS [facility] Last Admin: 02/11/18 21:47 Dose: 50 mg Medical Necessity - Tobacco Use Smoking Status: Heavy Smoker (>10/day) Tobacco Use: Cigarettes Assessment/Plan All Active Problems Alcohol withdrawal (Acute) 1. Acute alcohol withdrawal * I calculated a CIWA score of 11 * Started on phenobarbital, but ativan had to be added for his symptoms. The plan will be to start the patient on phenobarbital 60 mg. So will be 60 mg 4 times daily for 1 day then 3 times daily for 1 day then 2 times daily for 1 day and then 30 mg twice daily for 1 day and then 60 mg is. * Thiamine and folate * [facility] to facilitate outpatient treatment modalities for the patient. * Patient will also have other medications to help with other somatic complaints. * Patient's length of stay will vary on his symptoms and the severity of his alcohol withdrawal. It is possible that it could be just a couple days too much longer trigger the patient developed delirium tremens. 2. DVT prophylaxis: Patient is low risk and does not require DVT prophylaxis at this time. Code Visit Inpatient E&M: 42712 Subs Hosp L2
[2018-02-12] MEDS: Ondansetron ODT 4 MG Tablet 8 MG PO (10:36)
[2018-02-12] MEDS: Famotidine 20 MG Tablet 40 MG PO ×2 (10:37→22:24)
[2018-02-12] MEDS: Pantoprazole Sodium 40 MG Tablet PO (12:39)
[2018-02-12] MEDS: Propranolol 40 MG Tablet PO (12:39)
[2018-02-12 12:42] LABS: Pathologist Review Reviewed
[2018-02-12 14:48] VITALS: BP 162/108; PULSE 84; RESP 16; TEMP 36.9
[2018-02-12] MEDS: 0.9% Normal Saline 1,000 ML 125 ML IV (14:51)
[2018-02-12] MEDS: OLANZapine 5 MG/TAB TAB.RAPDIS 10 MG PO ×2 (14:52→22:24)
[2018-02-12 20:15] VITALS: BP 143/92; PULSE 93; RESP 18; TEMP 37.1
[2018-02-12] MEDS: traZODone 50 MG Tablet PO (22:24)
[2018-02-13] VITALS (9 sets, daily range): BP systolic 134–163; BP diastolic 89–117; PULSE 90–112; RESP 16–20; TEMP 36.4–37; O2SAT 96–99
[2018-02-13] MEDS: Methocarbamol 750 MG Tablet PO (00:16)
[2018-02-13] MEDS: LORazepam 1 MG Tablet PO ×2 (02:08→08:01)
--- NOTE | 2018-02-13 03:30 | NURSING ---
This RN notified that patient had walked by nurse's station and went down elevator. This RN went to ground floor to see where patient had went. During search, another nurse called to inform that patient had returned to unit. This RN reinforced rules of not leaving the unit.
[2018-02-13] MEDS: OLANZapine 5 MG/TAB TAB.RAPDIS 10 MG PO ×3 (05:35→20:57)
[2018-02-13] MEDS: Phenobarbital 20 MG/5 ML UDC 60 MG PO (05:35)
[2018-02-13] MEDS: Pantoprazole Sodium 40 MG Tablet PO (08:01)
[2018-02-13] MEDS: Folic Acid 1 MG Tablet PO (08:01)
[2018-02-13] MEDS: Famotidine 20 MG Tablet 40 MG PO ×2 (08:01→20:57)
[2018-02-13] MEDS: Propranolol 40 MG Tablet PO (08:06)
[2018-02-13] MEDS: Thiamine Hydrochloride 100 MG Tablet PO (08:06)
--- NOTE | 2018-02-13 10:44 | PN_ITS ---
Patient Problems: Active and Suspected Problems Alcohol withdrawal (Acute) Subjective: Noted to be confused by nursing. Patient was ambulate in the hallways and actually went wrong room. Patient thinking that he was good to be discharged though there is never any conversation with the patient and myself about that. States that his tremors doing well does have some diaphoresis. Vitals/I&O's: Vital Signs Temp Pulse Resp BP Pulse Ox 36.8 C 102 H 16 159/93 H 97 02/13/18 07:57 02/13/18 07:57 02/13/18 07:57 02/13/18 07:57 02/12/18 09:43 Oxygen Delivery Method Room Air Weight: 83.007 kg Body Mass Index (BMI) 26.2 Intake and Output for Last 24 Hours 02/11/18 02/12/18 02/13/18 23:59 23:59 23:59 Intake Total 1407 / 1407 2765 / 2765 500 / 500 Output Total 300 / 300 Balance 1407 / 1407 2465 / 2465 500 / 500 General: Alert, Cooperative, No apparent distress HEENT: Atraumatic, Normocephalic Neck: No Nodes, Thyroid Normal Size and Texture Lungs: Clear to auscultation, Normal air movement, No rhonchi, No wheeze Cardiovascular: Regular rate, Regular Rhythm, Normal S1, Normal S2, No murmurs Abdomen: Bowel Sounds Present, Soft, Non Tender, Non-Distended, No Hepato- splenomegaly Extremities: No edema, No Calf Tenderness Laboratory Results 02/11/18 13:37: Diff Path Review Reviewed Current Medications Acetaminophen (Tylenol) 500 mg PO Q4H PRN PRN PRN Reason: Temp > 100.4 F Last Admin: 02/11/18 14:10 Dose: 500 mg Albuterol Sulfate (Ventolin Aerosols) 2.5 mg INHALATION Q4H PRN Dicyclomine HCl (Bentyl) 20 mg PO Q6H PRN PRN PRN Reason: abdominal discomfort Last Admin: 02/12/18 17:05 Dose: 20 mg Famotidine (Pepcid) 40 mg PO BID [facility] Last Admin: 02/13/18 08:01 Dose: 40 mg Folic Acid (Folic Acid) 1 mg PO DAILY@0800 [facility] Last Admin: 02/13/18 08:01 Dose: 1 mg Ibuprofen (Motrin) 600 mg PO Q8H PRN PRN PRN Reason: Mild-Moderate Pain (1-5/10) Loperamide HCl (Imodium) 2 - 4 mg PO UD PRN PRN Reason: LOOSE STOOLS Lorazepam (Ativan) 1 mg PO Q6H [place] PRN Reason: Taper Stop: 02/14/18 21:59 Last Admin: 02/13/18 08:01 Dose: 1 mg Magnesium Hydroxide (Milk Of Magnesia) 30 ml PO DAILY PRN PRN PRN Reason: Constipation Methocarbamol (Methocarbamol) 750 mg PO Q6H PRN PRN PRN Reason: Muscle Aches Last Admin: 02/13/18 00:16 Dose: 750 mg Nicotine (Nicoderm Cq (Pbkc)) 21 mg TRANSDERM. DAILY [facility] Last Admin: 02/13/18 08:02 Dose: 21 mg Nystatin (Nystatin) 500,000 unit PO 4X/DAY [facility] Last Admin: 02/13/18 08:07 Dose: Not Given Olanzapine (Zyprexa Zydis) 10 mg PO TID [facility] Last Admin: 02/13/18 05:35 Dose: 10 mg Ondansetron HCl (Zofran Odt) 8 mg PO Q8H PRN PRN PRN Reason: VOMITING Last Admin: 02/12/18 10:36 Dose: 8 mg Pantoprazole Sodium (Protonix) 40 mg PO DAILY [facility] Last Admin: 02/13/18 08:01 Dose: 40 mg Phenobarbital (Phenobarbital) 60 mg PO BID [facility] Stop: 02/14/18 10:01 Phenobarbital (Phenobarbital) 30 mg PO BID [facility] Stop: 02/15/18 10:01 Phenobarbital (Phenobarbital) 60 mg PO Q6H PRN PRN Reason: CIWA score > 15 Promethazine HCl (Phenergan) 12.5 mg IV Q6H PRN PRN PRN Reason: NAUSEA/VOMITING Last Admin: 02/12/18 04:43 Dose: 12.5 mg Propranolol HCl (Inderal) 40 mg PO DAILY [facility] Last Admin: 02/13/18 08:06 Dose: 40 mg Sodium Chloride () 5 - 30 ml IV UD PRN PRN Reason: SALINE FLUSH Last Admin: 02/12/18 04:43 Dose: 20 ml [facility]iamine [facility] ([facility]) [facility] Last Admin: 02/13/18 08:06 Dose: 100 mg Trazodone HCl (Desyrel) 50 mg PO QHS [facility] Last Admin: 02/12/18 22:24 Dose: 50 mg Medical Necessity - Tobacco Use Smoking Status: Heavy Smoker (>10/day) Tobacco Use: Cigarettes Assessment/Plan All Active Problems Alcohol withdrawal (Acute) 1. Acute alcohol withdrawal * I calculated a CIWA score of 9 * Started on phenobarbital, but ativan had to be added for his symptoms. The plan will be to start the patient on phenobarbital 60 mg. So will be 60 mg 4 times daily for 1 day then 3 times daily for 1 day then 2 times daily for 1 day and then 30 mg twice daily for 1 day and then 60 mg is. * Thiamine and folate * [facility] to facilitate outpatient treatment modalities for the patient. Currently being evaluated by liaison for 180 * Patient will also have other medications to help with other somatic complaints. * Patient's length of stay will vary on his symptoms and the severity of his alcohol withdrawal. It is possible that it could be just a couple days too much longer trigger the patient developed delirium tremens. * DC ativan and continue phenobarbital taper. 2. DVT prophylaxis: Patient is low risk and does not require DVT prophylaxis at this time. Code Visit Inpatient E&M: 53608 Subs Hosp L2
[2018-02-13] MEDS: LORazepam 2 MG/ML Syringe IV (13:10)
[2018-02-13] MEDS: LORazepam 1 MG Tablet 2 MG PO ×3 (14:17→16:53)
--- NOTE | 2018-02-13 17:53 | CHAPLAIN ---
Type of Pastoral Visit ___ Initial Visit _x__ Follow-up Visit ___ On-call Visit ___ General Patient Visit ___ Spiritual Assessment ___ Family Conference ___ Bereavement ___ Rapid Response ___ Code Blue ___ Other (describe below) Pastoral Care Referral From _x__ Patient ___ Family ___ Nurse ___ Physician ___ Quality Reviewer ___ Package Line Relief Operator ___ Other (describe below) Sacrament/Intervention _x__ Active listening ___ Anointing ___ Alevism ___ Bereavement ___ Communion ___ Yomaira exploration ___ _x__ Life review _x__ Prayer ___ Reconciliation ___ Sacrament of Sick _x__ Supportive presence ___ Wedding ___ Other (describe below) Pastoral Comments at times spoke of things in the room that had been changed since yesterday and said that cat won't bite you; this roller hand believes he was having results of withdrawal; otherwise pt carried on conversation and answered questions; welcomed prayer and thanked this roller hand
[2018-02-13] MEDS: LORazepam 2 MG/ML Syringe IM ×4 (18:25→22:16)
--- NOTE | 2018-02-13 18:37 | NURSING ---
PT GIVEN IM INJECTION OF ATIVAN AFTER GETTING PT TO LIE DOWN IN THE BED. IRIS MADERA, KALLI Morgan, MARIA DE JESUS Kraft RNS, NET APPLICATIONS DEVELOPER AND ROBSON CHAMORRO PRESENT. PT THEN TRANSFERRED VIA BED TO ROOM 325.
--- NOTE | 2018-02-13 19:58 | NURSING ---
PT PACING IN ROOM AND TRYING TO LEAVE UNIT. SPEECH IS UNCLEAR, DISORIENTED TO TIME AND PLACE. CIWA 26 WITHDRAWAL 15. ATIVAN IM GIVEN. THIS RN, KALLI RN, ARA RN, SECURITY IN ROOM. JANINA CHAMORRO SITTR IN ROOM.
--- NOTE | 2018-02-13 19:59 | NURSING ---
all prn ativans given by this nurse this shift should have been charted under the prn ciwa >/=15.
--- NOTE | 2018-02-13 20:49 | NURSING ---
PT UP PACING IN ROOM TRYING TO LEAVE UNIT. GOVERNMENT AFFAIRS RESEARCHER AND SECURITY IN ROOM WITH PT. NURSING TYPING SECRETARY ON UNIT. PIPE LAYER HELPER TXT FOR NEW ORDERS. CIWA COMPLETED ATIVAN IM GIVEN. PT RESTING IN BED AT TIME, WILL CONTINUE TO MONITOR.
[2018-02-13] MEDS: traZODone 50 MG Tablet PO (20:57)
[2018-02-13] MEDS: QUEtiapine 25 MG Tablet 50 MG PO (20:57)
--- NOTE | 2018-02-13 22:17 | NURSING ---
pt pacing in room, pushing buttons, pulling cords out of the wall, trying to push passed staff to leave unit. pt only oriented to self. attempting to eat bed linen and clean up water, gait unsteady. assessment completed and ativan IM given. ROAD ADVISOR at bedside pt still attempting to climb out of bed. will continue to monitor
--- NOTE | 2018-02-13 22:31 | NURSING ---
pt pulling aggressively on bedside rails and trying to push staff. pt is rambling and unsteady gait.
--- NOTE | 2018-02-13 22:42 | NURSING ---
PT PLACED IN SOFT WRIST RESTRAINTS. HOSPITALIST NOTIFIED. WILL CONTINUE TO MONITOR.
[2018-02-14] VITALS (8 sets, daily range): BP systolic 136–163; BP diastolic 94–110; PULSE 95–119; RESP 18–22; TEMP 36.4–36.7; O2SAT 95–98
[2018-02-14] MEDS: LORazepam 2 MG/ML Syringe IM (00:04)
--- NOTE | 2018-02-14 01:22 | NURSING ---
PT RESTING. SOFT WRIST RESTRAINTS REMOVED. EPIC RADIANT ANALYST SITTING IN ROOM. WILL CONTINUE TO MONITOR.
[2018-02-14] MEDS: Famotidine 20 MG Tablet 40 MG PO ×2 (08:30→20:19)
[2018-02-14] MEDS: LORazepam 1 MG Tablet 2 MG PO ×4 (08:30→17:17)
[2018-02-14] MEDS: OLANZapine 5 MG/TAB TAB.RAPDIS 10 MG PO ×3 (08:31→20:19)
[2018-02-14] MEDS: Folic Acid 1 MG Tablet PO (08:31)
[2018-02-14] MEDS: Thiamine Hydrochloride 100 MG Tablet PO (08:31)
[2018-02-14] MEDS: Pantoprazole Sodium 40 MG Tablet PO (08:31)
[2018-02-14] MEDS: Propranolol 40 MG Tablet PO (08:31)
[2018-02-14] MEDS: Albuterol 2.5 MG/3 ML VIAL.NEB. INHALATION (08:42)
--- NOTE | 2018-02-14 09:59 | PCM.PN.HOSP ---
Patient Problems: Active and Suspected Problems Alcohol withdrawal (Acute) Subjective: Still with confusion. Required soft restraints last night. Confused and continues to ask about going out to smoke. Visual hallucinations. Vitals/I&O's: Vital Signs Temp Pulse Resp BP Pulse Ox 36.4 C L 118 H 20 H 147/106 H 95 02/14/18 07:52 02/14/18 08:42 02/14/18 08:42 02/14/18 07:52 02/14/18 07:52 Oxygen Delivery Method Room Air Weight: 83.007 kg Body Mass Index (BMI) 26.2 Intake and Output for Last 24 Hours 02/12/18 02/13/18 02/14/18 23:59 23:59 23:59 Intake Total 2765 / 2765 500 / 500 300 / 300 Output Total 300 / 300 Balance 2465 / 2465 500 / 500 300 / 300 General: Cooperative, Confused HEENT: Atraumatic, Normocephalic Neck: No Nodes, Thyroid Normal Size and Texture Lungs: Clear to auscultation, Normal air movement, No rhonchi, No wheeze Cardiovascular: Regular rate, Regular Rhythm, Normal S1, Normal S2 Abdomen: Bowel Sounds Present, Soft, Non Tender, Non-Distended, No Hepato-splenomegaly Extremities: No edema, No Calf Tenderness Psych/Mental Status: Normal Affect, Appropriate Current Medications Acetaminophen (Tylenol) 500 mg PO Q4H PRN PRN PRN Reason: Temp > 100.4 F Last Admin: 02/11/18 14:10 Dose: 500 mg Albuterol Sulfate (Ventolin Aerosols) 2.5 mg INHALATION Q2H PRN PRN PRN Reason: WHEEZES Last Admin: 02/14/18 08:42 Dose: 2.5 mg Dicyclomine HCl (Bentyl) 20 mg PO Q6H PRN PRN PRN Reason: abdominal discomfort Last Admin: 02/12/18 17:05 Dose: 20 mg Famotidine (Pepcid) 40 mg PO BID [facility] Last Admin: 02/14/18 08:30 Dose: 40 mg Folic Acid (Folic Acid) 1 mg PO DAILY@0800 [facility] Last Admin: 02/14/18 08:31 Dose: 1 mg Ibuprofen (Motrin) 600 mg PO Q8H PRN PRN PRN Reason: Mild-Moderate Pain (1-5/10) Loperamide HCl (Imodium) 2 - 4 mg PO UD PRN PRN Reason: LOOSE STOOLS Lorazepam (Ativan) 2 mg PO Q2H PRN PRN; Protocol PRN Reason: CIWA score > 8 but <15 Last Admin: 02/14/18 08:30 Dose: 2 mg Lorazepam (Ativan) 2 mg PO UD PRN; Protocol PRN Reason: CIWA score >/=15. Last Admin: 02/13/18 16:53 Dose: 2 mg Lorazepam (Ativan) 2 mg IM Q2H PRN PRN; Protocol PRN Reason: CIWA score > 8 but <15 Last Admin: 02/13/18 18:25 Dose: 2 mg Lorazepam (Ativan) 2 mg IM UD PRN; Protocol PRN Reason: CIWA score >/=15. Last Admin: 02/14/18 00:04 Dose: 2 mg Magnesium Hydroxide (Milk Of Magnesia) 30 ml PO DAILY PRN PRN PRN Reason: Constipation Methocarbamol (Methocarbamol) 750 mg PO Q6H PRN PRN PRN Reason: Muscle Aches Last Admin: 02/13/18 00:16 Dose: 750 mg Nicotine (Nicoderm Cq (Pbkc)) 21 mg TRANSDERM. DAILY [facility] Last Admin: 02/14/18 08:31 Dose: 21 mg Nicotine Polacrilex (Rugby Nicotine (Bkc)) 2 mg PO Q2H PRN PRN PRN Reason: Nicotine Craving Nystatin (Nystatin) 500,000 unit PO 4X/DAY [facility] Last Admin: 02/14/18 08:32 Dose: Not Given Olanzapine (Zyprexa Zydis) 10 mg PO TID [facility] Last Admin: 02/14/18 08:31 Dose: 10 mg Ondansetron HCl (Zofran Odt) 8 mg PO Q8H PRN PRN PRN Reason: VOMITING Last Admin: 02/12/18 10:36 Dose: 8 mg Pantoprazole Sodium (Protonix) 40 mg PO DAILY [facility] Last Admin: 02/14/18 08:31 Dose: 40 mg Promethazine HCl (Phenergan) 12.5 mg IV Q6H PRN PRN PRN Reason: NAUSEA/VOMITING Last Admin: 02/12/18 04:43 Dose: 12.5 mg Propranolol HCl (Inderal) 40 mg PO DAILY [facility] Last Admin: 02/14/18 08:31 Dose: 40 mg Sodium Chloride () 5 - 30 ml IV UD PRN PRN Reason: SALINE FLUSH Last Admin: 02/12/18 04:43 Dose: 20 ml Thiamine HCl (Vitamin B1) 100 mg PO DAILYCM [facility] Last Admin: 02/14/18 08:31 Dose: 100 mg Trazodone HCl (Desyrel) 50 mg PO QHS [facility] Last Admin: 02/13/18 20:57 Dose: 50 mg Medical Necessity - Tobacco Use Smoking Status: Heavy Smoker (>10/day) Tobacco Use: Cigarettes Assessment/Plan All Active Problems Alcohol withdrawal (Acute) 1. Acute alcohol withdrawal Worse today CIWA 25 Continue with ativan. Phenobarbial off Thiamine and folate [facility] to facilitate outpatient treatment modalities for the patient. Patient will also have other medications to help with other somatic complaints. Patient's length of stay will vary on his symptoms and the severity of his alcohol withdrawal. It is possible that it could be just a couple days too much longer trigger the patient developed delirium tremens. DC ativan and continue phenobarbital taper. 2. DVT prophylaxis: Patient is low risk and does not require DVT prophylaxis at this time. Code Visit Inpatient E&M: 48223 Subs Hosp L2
--- NOTE | 2018-02-14 10:04 | PN_ITS ---
Patient Problems: Active and Suspected Problems Alcohol withdrawal (Acute) Subjective: Still with confusion. Required soft restraints last night. Confused and continues to ask about going out to smoke. Visual hallucinations. Vitals/I&O's: Vital Signs Temp Pulse Resp BP Pulse Ox 36.4 C L 118 H 20 H 147/106 H 95 02/14/18 07:52 02/14/18 08:42 02/14/18 08:42 02/14/18 07:52 02/14/18 07:52 Oxygen Delivery Method Room Air Weight: 83.007 kg Body Mass Index (BMI) 26.2 Intake and Output for Last 24 Hours 02/12/18 02/13/18 02/14/18 23:59 23:59 23:59 Intake Total 2765 / 2765 500 / 500 300 / 300 Output Total 300 / 300 Balance 2465 / 2465 500 / 500 300 / 300 General: Cooperative, Confused HEENT: Atraumatic, Normocephalic Neck: No Nodes, Thyroid Normal Size and Texture Lungs: Clear to auscultation, Normal air movement, No rhonchi, No wheeze Cardiovascular: Regular rate, Regular Rhythm, Normal S1, Normal S2 Abdomen: Bowel Sounds Present, Soft, Non Tender, Non-Distended, No Hepato- splenomegaly Extremities: No edema, No Calf Tenderness Psych/Mental Status: Normal Affect, Appropriate Current Medications Acetaminophen (Tylenol) 500 mg PO Q4H PRN PRN PRN Reason: Temp > 100.4 F Last Admin: 02/11/18 14:10 Dose: 500 mg Albuterol Sulfate (Ventolin Aerosols) 2.5 mg INHALATION Q2H PRN PRN PRN Reason: WHEEZES Last Admin: 02/14/18 08:42 Dose: 2.5 mg Dicyclomine HCl (Bentyl) 20 mg PO Q6H PRN PRN PRN Reason: abdominal discomfort Last Admin: 02/12/18 17:05 Dose: 20 mg Famotidine (Pepcid) 40 mg PO BID [facility] Last Admin: 02/14/18 08:30 Dose: 40 mg Folic Acid (Folic Acid) 1 mg PO DAILY@0800 [facility] Last Admin: 02/14/18 08:31 Dose: 1 mg Ibuprofen (Motrin) 600 mg PO Q8H PRN PRN PRN Reason: Mild-Moderate Pain (1-5/10) Loperamide HCl (Imodium) 2 - 4 mg PO UD PRN PRN Reason: LOOSE STOOLS Lorazepam (Ativan) 2 mg PO Q2H PRN PRN; Protocol PRN Reason: CIWA score > 8 but <15 Last Admin: 02/14/18 08:30 Dose: 2 mg Lorazepam (Ativan) 2 mg PO UD PRN; Protocol PRN Reason: CIWA score >/=15. Last Admin: 02/13/18 16:53 Dose: 2 mg Lorazepam (Ativan) 2 mg IM Q2H PRN PRN; Protocol PRN Reason: CIWA score > 8 but <15 Last Admin: 02/13/18 18:25 Dose: 2 mg Lorazepam (Ativan) 2 mg IM UD PRN; Protocol PRN Reason: CIWA score >/=15. Last Admin: 02/14/18 00:04 Dose: 2 mg Magnesium Hydroxide (Milk Of Magnesia) 30 ml PO DAILY PRN PRN PRN Reason: Constipation Methocarbamol (Methocarbamol) 750 mg PO Q6H PRN PRN PRN Reason: Muscle Aches Last Admin: 02/13/18 00:16 Dose: 750 mg Nicotine (Nicoderm Cq (Pbkc)) 21 mg TRANSDERM. DAILY [facility] Last Admin: 02/14/18 08:31 Dose: 21 mg Nicotine Polacrilex (Rugby Nicotine (Bkc)) 2 mg PO Q2H PRN PRN PRN Reason: Nicotine Craving Nystatin (Nystatin) 500,000 unit PO 4X/DAY [facility] Last Admin: 02/14/18 08:32 Dose: Not Given Olanzapine (Zyprexa Zydis) 10 mg PO TID [facility] Last Admin: 02/14/18 08:31 Dose: 10 mg Ondansetron HCl (Zofran Odt) 8 mg PO Q8H PRN PRN PRN Reason: VOMITING Last Admin: 02/12/18 10:36 Dose: 8 mg Pantoprazole Sodium (Protonix) 40 mg PO DAILY [facility] Last Admin: 02/14/18 08:31 Dose: 40 mg Promethazine HCl (Phenergan) 12.5 mg IV Q6H PRN PRN PRN Reason: NAUSEA/VOMITING Last Admin: 02/12/18 04:43 Dose: 12.5 mg Propranolol HCl (Inderal) 40 mg PO DAILY [facility] Last Admin: 02/14/18 08:31 Dose: 40 mg Sodium Chloride () 5 - 30 ml IV UD PRN PRN Reason: SALINE FLUSH Last Admin: 02/12/18 04:43 Dose: 20 ml Thiamine HCl (Vitamin B1) 100 mg PO DAILYCM [facility] Last Admin: 02/14/18 08:31 Dose: 100 mg Trazodone HCl (Desyrel) 50 mg PO QHS [facility] Last Admin: 02/13/18 20:57 Dose: 50 mg Medical Necessity - Tobacco Use Smoking Status: Heavy Smoker (>10/day) Tobacco Use: Cigarettes Assessment/Plan All Active Problems Alcohol withdrawal (Acute) 1. Acute alcohol withdrawal * Worse today * CIWA 25 * Continue with ativan. Phenobarbial off * Thiamine and folate * [facility] to facilitate outpatient treatment modalities for the patient. * Patient will also have other medications to help with other somatic complaints. * Patient's length of stay will vary on his symptoms and the severity of his alcohol withdrawal. It is possible that it could be just a couple days too much longer trigger the patient developed delirium tremens. * DC ativan and continue phenobarbital taper. 2. DVT prophylaxis: Patient is low risk and does not require DVT prophylaxis at this time. Code Visit Inpatient E&M: 50190 Subs Hosp L2
[2018-02-14] MEDS: Ondansetron ODT 4 MG Tablet 8 MG PO (14:22)
[2018-02-14] MEDS: Dicyclomine 10 MG Capsule 20 MG PO (14:22)
[2018-02-14] MEDS: Phenobarbital 20 MG/5 ML UDC 60 MG PO ×2 (15:50→20:19)
--- NOTE | 2018-02-14 16:54 | CHAPLAIN ---
patient is wandering in halls; staff inform this boat operator that patient may try to leave but is confused about where he is and what is happening now; walked pt back to room and sat with in for a time; pt could have conversation but thought closet and bathroom were other rooms or entrances; pt was going to make a phone call; offered prayer for pt and left him to make his phone call
[2018-02-14] MEDS: traZODone 50 MG Tablet PO (20:22)
[2018-02-15 06:00] VITALS: BP 159/104; PULSE 98; RESP 18; TEMP 36.8; O2SAT 95
[2018-02-15] MEDS: OLANZapine 5 MG/TAB TAB.RAPDIS 10 MG PO ×3 (06:15→21:02)
[2018-02-15 08:04] LABS: Absolute Lymphocyte Count 1.93 X10^3/ul (0.83-4.51); Absolute Neutrophil Count 5.5 X10^3/uL (2.0-7.7); Basophil# 0.02 X10^3/uL; Basophil% 0.2 % (0-1); Eosinophil# 0.39 X10^3/uL; Eosinophils% 4.5 % (0-5); Hematocrit 45.3 % (40-54); Hemoglobin 15.1 g/dl (13.0-16.5); Lymphocyte # 1.93 X10^3/ul (4.0); Lymphocyte % 22.3 % (19-41); Mean Corp Hgb Conc 33.3 g/gl (32-36); Mean Corpuscular Hgb 32.3 pg (27.0-32.0); Monocyte# 0.81 X10^3/uL; Monocyte% 9.4 % (0-10); Neutrophil # 5.48 X10^3/uL (2.7-7.7); Neutrophil % 63.4 % (47-70); Platelet Count 135 K/mm3 (150-450); RBC Distribution Width CV 15.3 % (11.6-14.6); RBC Distribution Width SD 53.9 fl (35.1-43.9); Red Blood Count 4.67 M/mm3 (4.6-6.2); White Blood Count 8.7 K/mm3 (4.4-11.0)
[2018-02-15 08:05] LABS: POSITIVE COUNT NO; POSITIVE DIFFERENTIAL NO; POSITIVE MORPHOLOGY NO
[2018-02-15 08:17] LABS: ALB/GLOB Ratio 0.8 RATIO (0.9-2.4); AST(SGOT) 44 U/L (15-37); Alanine Aminotransfer ALT/SGPT 57 U/L (16-61); Albumin, Serum 3.3 g/dL (3.2-5.0); Alkaline Phosphatase 118 U/L (45-117); Anion Gap 6 (5-15); BUN 7 mg/dL (7-18); BUN/Creat Ratio 10.2 RATIO (10-20); Chloride 100 mmol/L (98-107); Creatinine, Serum 0.68 mg/dL (0.70-1.30); EST Glomerular Filtration Rate 132 mL/min (>60); Est Glom Filt Rate - Afr Amer 160 mL/min (>60); Estimated Creatinine Clearance 140.16 ml/min; Globulin 4.4 g/dL (2.2-4.2); Glucose 101 mg/dL (74-106); Potassium 3.8 mmol/L (3.5-5.1); Protein, Total 7.7 g/dL (6.4-8.2); Sodium Level 136 mmol/L (136-145)
[2018-02-15] MEDS: Famotidine 20 MG Tablet 40 MG PO ×2 (08:27→21:03)
[2018-02-15] MEDS: Propranolol 40 MG Tablet PO (08:28)
[2018-02-15] MEDS: Pantoprazole Sodium 40 MG Tablet PO (08:28)
[2018-02-15] MEDS: Folic Acid 1 MG Tablet PO (08:28)
[2018-02-15] MEDS: Thiamine Hydrochloride 100 MG Tablet PO (08:29)
[2018-02-15 09:44] VITALS: BP 139/77; PULSE 89; RESP 18; TEMP 36.6; O2SAT 98
--- NOTE | 2018-02-15 10:53 | PN_ITS ---
Subjective: Last night patient was walking the hallways and started food cart. Today, the patient states he feels better. More re-orientable. Vitals/I&O's: Vital Signs Temp Pulse Resp BP Pulse Ox 36.6 C 89 18 139/77 H 98 02/15/18 09:44 02/15/18 09:44 02/15/18 09:44 02/15/18 09:44 02/15/18 09:44 Oxygen Delivery Method Room Air Weight: 83.007 kg Body Mass Index (BMI) 26.2 Intake and Output for Last 24 Hours 02/13/18 02/14/18 02/15/18 23:59 23:59 23:59 Intake Total 500 / 500 300 / 300 Balance 500 / 500 300 / 300 General: Alert, No apparent distress HEENT: Atraumatic, Normocephalic Neck: No Nodes, Thyroid Normal Size and Texture Lungs: Clear to auscultation, Normal air movement, No rhonchi, No wheeze Cardiovascular: Regular rate, Regular Rhythm, Normal S1, Normal S2, No murmurs Abdomen: Bowel Sounds Present, Soft, Non Tender, Non-Distended, No Hepato- splenomegaly Extremities: No edema, No Calf Tenderness Skin: No rashes, No breakdown Laboratory Results 02/15/18 07:43: WBC 8.7, RBC 4.67, Hgb 15.1, Hct 45.3, MCV 97.0 H, MCH 32.3 H, MCHC 33.3, RDW 15.3 H, RDW Differential 53.9 H, Plt Count 135 L, MPV 10.0, Immature Gran % (Auto) 0.200, Neut % (Auto) 63.4, Lymph % (Auto) 22.3, Gosper % ( Auto) 9.4, Eos % (Auto) 4.5, Baso % (Auto) 0.2, Absolute Neuts (auto) 5.5, Absolute Lymphs (auto) 1.93, Total Counted Not Reportable 02/15/18 07:43: Sodium 136, Potassium 3.8, Chloride 100, Carbon Dioxide 30.0, Anion Gap 6, BUN 7, Creatinine 0.68 L, Estim Creat Clear Calc 140.16, Est GFR ( MDRD) Af Amer 160, Est GFR (MDRD) Non-Af 132, BUN/Creatinine Ratio 10.2, Glucose 101, Calcium 9.0, Total Bilirubin 1.30 H, AST 44 H, ALT 57, Alkaline Phosphatase 118 H, Total Protein 7.7, Albumin 3.3, Globulin 4.4 H, Albumin/ Globulin Ratio 0.8 L Current Medications Acetaminophen (Tylenol) 500 mg PO Q4H PRN PRN PRN Reason: Temp > 100.4 F Last Admin: 02/11/18 14:10 Dose: 500 mg Albuterol Sulfate (Ventolin Aerosols) 2.5 mg INHALATION Q2H PRN PRN PRN Reason: WHEEZES Last Admin: 02/14/18 08:42 Dose: 2.5 mg Dicyclomine HCl (Bentyl) 20 mg PO Q6H PRN PRN PRN Reason: abdominal discomfort Last Admin: 02/14/18 14:22 Dose: 20 mg Famotidine (Pepcid) 40 mg PO BID [facility] Last Admin: 02/15/18 08:27 Dose: 40 mg Folic Acid (Folic Acid) 1 mg PO DAILY@0800 [facility] Last Admin: 02/15/18 08:28 Dose: 1 mg Ibuprofen (Motrin) 600 mg PO Q8H PRN PRN PRN Reason: Mild-Moderate Pain (1-5/10) Loperamide HCl (Imodium) 2 - 4 mg PO UD PRN PRN Reason: LOOSE STOOLS Lorazepam (Ativan) 2 mg PO Q2H PRN PRN; Protocol PRN Reason: CIWA score > 8 but <15 Last Admin: 02/14/18 17:17 Dose: 2 mg Lorazepam (Ativan) 2 mg PO UD PRN; Protocol PRN Reason: CIWA score >/=15. Last Admin: 02/13/18 16:53 Dose: 2 mg Lorazepam (Ativan) 2 mg IM Q2H PRN PRN; Protocol PRN Reason: CIWA score > 8 but <15 Last Admin: 02/13/18 18:25 Dose: 2 mg Lorazepam (Ativan) 2 mg IM UD PRN; Protocol PRN Reason: CIWA score >/=15. Last Admin: 02/14/18 00:04 Dose: 2 mg Magnesium Hydroxide (Milk Of Magnesia) 30 ml PO DAILY PRN PRN PRN Reason: Constipation Methocarbamol (Methocarbamol) 750 mg PO Q6H PRN PRN PRN Reason: Muscle Aches Last Admin: 02/13/18 00:16 Dose: 750 mg Nicotine (Nicoderm Cq (Pbkc)) 21 mg TRANSDERM. DAILY [facility] Last Admin: 02/15/18 08:29 Dose: 21 mg Nicotine Polacrilex (Rugby Nicotine (Bkc)) 2 mg PO Q2H PRN PRN PRN Reason: Nicotine Craving Nystatin (Nystatin) 500,000 unit PO 4X/DAY [facility] Last Admin: 02/15/18 08:28 Dose: Not Given Olanzapine (Zyprexa Zydis) 10 mg PO TID [facility] Last Admin: 02/15/18 06:15 Dose: 10 mg Ondansetron HCl (Zofran Odt) 8 mg PO Q8H PRN PRN PRN Reason: VOMITING Last Admin: 02/14/18 14:22 Dose: 8 mg Pantoprazole Sodium (Protonix) 40 mg PO DAILY [facility] Last Admin: 02/15/18 08:28 Dose: 40 mg Phenobarbital (Phenobarbital) 60 mg PO Q4H PRN PRN Reason: AGITATION Last Admin: 02/14/18 20:19 Dose: 60 mg Promethazine HCl (Phenergan) 12.5 mg IV Q6H PRN PRN PRN Reason: NAUSEA/VOMITING Last Admin: 02/12/18 04:43 Dose: 12.5 mg Propranolol HCl (Inderal) 40 mg PO DAILY [facility] Last Admin: 02/15/18 08:28 Dose: 40 mg Sodium Chloride () 5 - 30 ml IV UD PRN PRN Reason: SALINE FLUSH Last Admin: 02/12/18 04:43 Dose: 20 ml [facility]) [facility] Last Admin: 02/15/18 08:29 Dose: 100 mg Trazodone HCl (Desyrel) 50 mg PO QHS [facility] Last Admin: 02/14/18 20:22 Dose: 50 mg Medical Necessity - Tobacco Use Smoking Status: Heavy Smoker (>10/day) Tobacco Use: Cigarettes Assessment/Plan All Active Problems Alcohol withdrawal (Acute) 1. Acute alcohol withdrawal * Improved today * CIWA 6 * Continue with ativan. Phenobarbial PRN * Thiamine and folate * [facility] to facilitate outpatient treatment modalities for the patient. * Patient will also have other medications to help with other somatic complaints. * Patient's length of stay will vary on his symptoms and the severity of his alcohol withdrawal. It is possible that it could be just a couple days too much longer trigger the patient developed delirium tremens. 2. DVT prophylaxis: Patient is low risk and does not require DVT prophylaxis at this time. Code Visit Inpatient E&M: 82761 Subs Hosp L2
[2018-02-15 13:36] VITALS: BP 130/85; PULSE 99; RESP 18; TEMP 37.1; O2SAT 96
[2018-02-15] MEDS: Phenobarbital 20 MG/5 ML UDC 60 MG PO ×2 (14:23→18:44)
[2018-02-15] MEDS: LORazepam 1 MG Tablet 2 MG PO (15:24)
[2018-02-15 18:40] VITALS: BP 150/91; PULSE 100; RESP 18; TEMP 36.6; O2SAT 96
[2018-02-15] MEDS: traZODone 50 MG Tablet PO (21:03)
[2018-02-15 22:00] VITALS: BP 136/95; PULSE 98; RESP 18; TEMP 36.9; O2SAT 99
[2018-02-16 04:00] VITALS: BP 155/86; PULSE 90; RESP 18; TEMP 36.9; O2SAT 99
[2018-02-16] MEDS: OLANZapine 5 MG/TAB TAB.RAPDIS 10 MG PO (06:09)
[2018-02-16 07:51] VITALS: BP 148/94; PULSE 85; RESP 20; TEMP 36.7; O2SAT 99
[2018-02-16] MEDS: Pantoprazole Sodium 40 MG Tablet PO (07:54)
[2018-02-16] MEDS: Famotidine 20 MG Tablet 40 MG PO (07:54)
[2018-02-16] MEDS: Propranolol 40 MG Tablet PO (07:54)
[2018-02-16] MEDS: NYSTATIN 500,000 UNIT/5 ML UDC 500000 UNIT PO (07:55)
[2018-02-16] MEDS: Thiamine Hydrochloride 100 MG Tablet PO (07:55)
[2018-02-16] MEDS: Folic Acid 1 MG Tablet PO (07:55)
--- NOTE | 2018-02-16 08:38 | PN_ITS ---
Patient Problems: Active and Suspected Problems Alcohol withdrawal (Acute) Subjective: No hallucinations. No tremors. Feels good. Vitals/I&O's: Vital Signs Temp Pulse Resp BP Pulse Ox 36.7 C 85 20 H 148/94 H 99 02/16/18 07:51 02/16/18 07:51 02/16/18 07:51 02/16/18 07:51 02/16/18 07:51 Oxygen Delivery Method Room Air Weight: 83.007 kg Body Mass Index (BMI) 26.2 Intake and Output for Last 24 Hours 02/14/18 02/15/18 02/16/18 23:59 23:59 23:59 Intake Total 300 / 300 Balance 300 / 300 General: Alert, No apparent distress HEENT: Atraumatic, Normocephalic Neck: No Nodes, Thyroid Normal Size and Texture Neurological: - - no tremors Psych/Mental Status: Normal Affect, Appropriate Current Medications Acetaminophen (Tylenol) 500 mg PO Q4H PRN PRN PRN Reason: Temp > 100.4 F Last Admin: 02/11/18 14:10 Dose: 500 mg Albuterol Sulfate (Ventolin Aerosols) 2.5 mg INHALATION Q2H PRN PRN PRN Reason: WHEEZES Last Admin: 02/14/18 08:42 Dose: 2.5 mg Dicyclomine HCl (Bentyl) 20 mg PO Q6H PRN PRN PRN Reason: abdominal discomfort Last Admin: 02/14/18 14:22 Dose: 20 mg Famotidine (Pepcid) 40 mg PO BID [facility] Last Admin: 02/16/18 07:54 Dose: 40 mg Folic Acid (Folic Acid) 1 mg PO DAILY@0800 [facility] Last Admin: 02/16/18 07:55 Dose: 1 mg Ibuprofen (Motrin) 600 mg PO Q8H PRN PRN PRN Reason: Mild-Moderate Pain (1-5/10) Loperamide HCl (Imodium) 2 - 4 mg PO UD PRN PRN Reason: LOOSE STOOLS Lorazepam (Ativan) 2 mg PO Q2H PRN PRN; Protocol PRN Reason: CIWA score > 8 but <15 Last Admin: 02/15/18 15:24 Dose: 2 mg Lorazepam (Ativan) 2 mg PO UD PRN; Protocol PRN Reason: CIWA score >/=15. Last Admin: 02/13/18 16:53 Dose: 2 mg Lorazepam (Ativan) 2 mg IM Q2H PRN PRN; Protocol PRN Reason: CIWA score > 8 but <15 Last Admin: 02/13/18 18:25 Dose: 2 mg Lorazepam (Ativan) 2 mg IM UD PRN; Protocol PRN Reason: CIWA score >/=15. Last Admin: 02/14/18 00:04 Dose: 2 mg Magnesium Hydroxide (Milk Of Magnesia) 30 ml PO DAILY PRN PRN PRN Reason: Constipation Methocarbamol (Methocarbamol) 750 mg PO Q6H PRN PRN PRN Reason: Muscle Aches Last Admin: 02/13/18 00:16 Dose: 750 mg Nicotine (Nicoderm Cq (Pbkc)) 21 mg TRANSDERM. DAILY [facility] Last Admin: 02/16/18 07:55 Dose: 21 mg Nicotine Polacrilex (Rugby Nicotine (Bkc)) 2 mg PO Q2H PRN PRN PRN Reason: Nicotine Craving Nystatin (Nystatin) 500,000 unit PO 4X/DAY [facility] Last Admin: 02/16/18 07:55 Dose: 500,000 unit Olanzapine (Zyprexa Zydis) 10 mg PO TID [facility] Last Admin: 02/16/18 06:09 Dose: 10 mg Ondansetron HCl (Zofran Odt) 8 mg PO Q8H PRN PRN PRN Reason: VOMITING Last Admin: 02/14/18 14:22 Dose: 8 mg Pantoprazole Sodium (Protonix) 40 mg PO DAILY [facility] Last Admin: 02/16/18 07:54 Dose: 40 mg Phenobarbital (Phenobarbital) 60 mg PO Q4H PRN PRN Reason: AGITATION Last Admin: 02/15/18 18:44 Dose: 60 mg Promethazine HCl (Phenergan) 12.5 mg IV Q6H PRN PRN PRN Reason: NAUSEA/VOMITING Last Admin: 02/12/18 04:43 Dose: 12.5 mg Propranolol HCl (Inderal) 40 mg PO DAILY [facility] Last Admin: 02/16/18 07:54 Dose: 40 mg Sodium Chloride () 5 - 30 ml IV UD PRN PRN Reason: SALINE FLUSH Last Admin: 02/12/18 04:43 Dose: 20 ml Thiamine HCl (Vitamin B1) 100 mg PO DAILYCM [facility] Last Admin: 02/16/18 07:55 Dose: 100 mg Trazodone HCl (Desyrel) 50 mg PO QHS [facility] Last Admin: 02/15/18 21:03 Dose: 50 mg Medical Necessity - Tobacco Use Smoking Status: Heavy Smoker (>10/day) Tobacco Use: Cigarettes Assessment/Plan All Active Problems Alcohol withdrawal (Acute) 1. Acute alcohol withdrawal * Improved today * CIWA 0 * No ativan nor phenobarbital since 02/15. * MVI * Pt to follow up with [facility] for further counseling * Reinforced to the patient that he cannot do this on his own, the more support , the better 2. DVT prophylaxis: Patient is low risk and does not require DVT prophylaxis at this time.
--- NOTE | 2018-02-16 08:41 | PCM.WORK.EX ---
Work/School Excuse Work/School Excuse for:: Patient Please excuse this person from:: Work From: 02/11/18 through: 02/17/18 - may return to regular duties
--- NOTE | 2018-02-16 08:42 | PCM.DC ---
- Discharge Diagnoses Current Active Problems: Current Active and Chronic Problems Alcohol withdrawal (Acute) You will use the following diet at home:: No restrictions Your food should be the consistency of: Regular Discharge Activity: Return to Normal Activity Return to work on:: 02/18/18 Weight Bearing Status: Weight bearing as tolerated Allergies/Adverse Reactions: Allergies acetaminophen [From Vicodin] Adverse Reaction (Verified 09/17/17 05:53) Other PT IS NOT ALLERGIC TO TYLENOL hydrocodone bitartrate [From Vicodin] Adverse Reaction (Verified 02/11/18 13:18) Other NIGHTMARES Opioids - Morphine Analogues Adverse Reaction (Verified 09/17/17 05:53) Other GIVES ME HORRIBLE NIGHTMARES Medications to take at Discharge Albuterol Sulfate [Proventil Hfa] 6.7 gm IH Q2H PRN PRN #1 hfa.[id number].[id number] 05/27/17 Ranitidine [Zantac] 300 mg PO BID 05/27/17 Ondansetron [Zofran Odt] 4 mg PO Q8H PRN PRN #10 tablet 09/17/17 Pantoprazole Sodium [Protonix] 40 mg PO DAILY #30 tab 10/13/17 Olanzapine [Olanzapine Odt] 10 mg PO TID 02/11/18 Propranolol HCl 40 mg PO DAILY 02/11/18 Hydroxyzine Pamoate [Vistaril] 50 mg PO TID PRN PRN #21 cap 02/16/18 Multivitamins,Therapeutic [Multivitamin] 1 tablet PO DAILY #1 tablet 02/16/18 The following prescriptions were given: Hydroxyzine Pamoate [Vistaril] 50 mg PO TID PRN PRN #21 cap PRN Reason: Anxiety Multivitamins,Therapeutic [Multivitamin] 1 tablet PO DAILY #1 tablet Primary Care Physician: Que Stark MD [Primary Care Provider] - Please Follow Up With: [facility] When: next week Proposed Discharge Date: 02/16/18
--- NOTE | 2018-02-16 08:43 | PCM.DC.SUM ---
Discharge Date and Diagnosis - Problem List Patient Problems: Active and Suspected Problems Alcohol withdrawal (Acute) Date of Admission: 02/11/18 Date of Discharge: 02/16/18 - Primary Discharge Diagnosis Active and Suspected Problems Alcohol withdrawal (Acute) - Secondary Discharge Diagnosis Chronic Problems COPD (chronic obstructive pulmonary disease) (Chronic) Alcohol abuse (Chronic) Seizure disorder (Chronic) Tobacco abuse (Chronic) Benign essential hypertension (Chronic) Hospital Course and Treatment Operations: None Procedures: None Summary of Care Provided: The patient is a 47 year old M presents through [facility] for alcohol withdrawal treatment. Patient requested phenobarbital for his withdrawal symptoms. Patient was started on a phenobarbital taper. Patient got worse and then Ativan was added. Patient did have persistent confusion that lasted days afterwards for the patient was walking into other patient's rooms handling the food cart. Patient was not combative in any way but did reorient. Patient's mental status eventually returned to normal on the . Patient was monitored overnight and today the patient's CIWA score is 0 (at one point during or during his severe delirium his score was 30). Patient is doing well at this time and can be discharged home. Patient will follow up with [facility] for further counseling. It was reinforced to the patient that he requires support and that it is very difficult to do this on his own. This is the patient's third attempt of treatment since September. [] Discharge Diet: No Restrictions Discharge Activity: Return to Normal Activity Return to work on:: 02/18/18 Weight Bearing Status: Weight bearing as tolerated Home Medications: Medications to take at Discharge Albuterol Sulfate [Proventil Hfa] 6.7 gm IH Q2H PRN PRN #1 hfa.aer.[id number] 05/27/17 Ranitidine [Zantac] 300 mg PO BID 05/27/17 Ondansetron [Zofran Odt] 4 mg PO Q8H PRN PRN #10 tablet 09/17/17 Pantoprazole Sodium [Protonix] 40 mg PO DAILY #30 tab 10/13/17 Olanzapine [Olanzapine Odt] 10 mg PO TID 02/11/18 Propranolol HCl 40 mg PO DAILY 02/11/18 Hydroxyzine Pamoate [Vistaril] 50 mg PO TID PRN PRN #21 cap 02/16/18 Multivitamins,Therapeutic [Multivitamin] 1 tablet PO DAILY #1 tablet 02/16/18 Following Prescrptions Were Given to Patient: Hydroxyzine Pamoate [Vistaril] 50 mg PO TID PRN PRN #21 cap PRN Reason: Anxiety Multivitamins,Therapeutic [Multivitamin] 1 tablet PO DAILY #1 tablet Primary Care Physician: Que Stark MD [Primary Care Provider] - Please Follow Up With: [facility] When: next week Disposition: Home Minutes spent on discharge:: 32 Patient Condition:: Good Medical Necessity - Tobacco Use Smoking Status: Heavy Smoker (>10/day) Tobacco Use: Cigarettes Meaningful Use Info Meaningful Use Diagnoses (Choose all that apply): None applicable Code Visit Inpatient E&M: 36375 Disch Hosp
[2018-02-16 08:44] VITALS: BP 148/94; PULSE 85; RESP 20; TEMP 36.7
== END 2018-02-16 09:15 | disposition home or self-care (01) | DRG 897 ==
PROVIDERS: Internal Medicine; Family Provider Family Medicine; PCP Family Medicine
DX: F10.231 Alcohol dependence with withdrawal delirium (principal); F17.210 Nicotine dependence, cigarettes, uncomplicated; I10 Essential (primary) hypertension; J44.9 Chronic obstructive pulmonary disease, unspecified; G40.909 Epilepsy, unspecified, not intractable, without status epilepticus; Z78.1 Physical restraint status
CPT/HCPCS: 36415; 80053; 84484; 85025; 85610; 93005; 94640; 99406; J7030; J7120; A4216

== ENCOUNTER 2019-03-02 05:46 | Emergency (ER) | payer SELFPAY ==
[2019-03-02 05:47] VITALS: BP 136/100; PULSE 103; RESP 18; TEMP 36.8; O2SAT 100; BMI 25.1
--- NOTE | 2019-03-02 06:15 | ED.DCSUM_ITS ---
- ER Visit Summary Date of Service: 03/02/19 Chief Complaint: Bilateral eye pain History of Present Illness: The patient is a 48 M who presents with bilateral eye pain that is been getting worse over the past 3 days. Patient states he was cleaning his bathroom when he thinks he got bleach in his eyes. Patient states he has pain with burning and redness. Patient also admits to some itching and matting. Patient admits to some watery drainage. Patient denies any changes in his vision. Patient states he has been washing out his eyes. Physical Examination: Vital signs are stable. Patient is afebrile. Patient is in no acute distress. Pupils are equal, round, and reactive to light bilaterally. Extraocular muscles are intact. Conjunctivae are slightly injected bilaterally. Anterior chamber is clear. Tetracaine and fluorescein dye was applied. There are no corneal abrasions or corneal ulcers noted. Funduscopic examination was not tolerated by the patient. Emergency Department Course and Treatment: The eyes were irrigated with normal saline through Vazquez lenses. Patient was given a prescription for erythromycin ophthalmic ointment. Patient was instructed to follow-up with his primary care physician in 3-5 days. Patient understood and was agreeable with the plan. All questions were answered. Disposition: Discharge home Impression: Chemical conjunctivitis This note was generated with [employer] dictation software. It may contain incorrect words, spelling, and punctuation that were not noted in review of the chart prior to signing ED Disposition - Plan for ED Patient: Disposition: Home or Assisted Living Diagnosis: Chemical conjunctivitis of both eyes Instructions: CONJUNCTIVITIS, Non-Specific Prescriptions: Erythromycin Ophthalmic 1 applic EACH EYE TID #1 tube Prescription Printed Referrals: Que Stark MD [Primary Care Provider] - 3-5 Days
[2019-03-02] MEDS: Fluorescein 1 MG STRIP 1 STRIP EACH EYE (07:47)
[2019-03-02 07:48] VITALS: BP 143/98; PULSE 95; RESP 15
[2019-03-02] MEDS: Tetracaine 0.5% Ophthalmic Bottle 1 DRP EACH EYE (07:48)
== END 2019-03-02 07:50 | disposition home or self-care (01) ==
PROVIDERS: Emergency Provider Emergency Medicine; Family Provider Family Medicine; PCP Family Medicine
DX: H10.213 Acute toxic conjunctivitis, bilateral (principal); Z72.0 Tobacco use
CPT/HCPCS: 99283

== ENCOUNTER 2019-06-01 15:01 | Emergency (ER) | payer MEDICAID, SELFPAY ==
[2019-06-01] VITALS (8 sets, daily range): BP systolic 129–150; BP diastolic 88–100; PULSE 108–151; RESP 12–19; TEMP 36.6; O2SAT 96–99; BMI 27.3
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
[2019-06-01 15:34] LABS: Absolute Lymphocyte Count 2.05 X10^3/uL (0.83-4.51); Absolute Neutrophil Count 8.9 X10^3/uL (2.0-7.7); Basophil# 0.07 X10^3/uL; Basophil% 0.5 % (0-1); Eosinophil# 0.25 X10^3/uL; Eosinophils% 1.9 % (0-5); Hematocrit 50.4 % (40-54); Hemoglobin 17.1 g/dL (13.0-16.5); Lymphocyte # 2.05 X10^3/ul (4.0); Lymphocyte % 15.8 % (19-41); Mean Corp Hgb Conc 33.9 g/dL (32-36); Mean Corpuscular Hgb 33.5 pg (27.0-32.0); Mean Corpuscular Volume 98.6 fL (80-94); Mean Platelet Vol. 9.5 fl (6.2-12.0); Monocyte% 12.4 % (0-10); NRBC Flagged by Analyzer 0 % (0-5); Neutrophil # 8.89 X10^3/uL (2.7-7.7); Neutrophil % 68.7 % (47-70); POSITIVE DIFFERENTIAL YES; Platelet Count 128 K/mm3 (150-450); RBC Distribution Width CV 14.1 % (11.6-14.6); RBC Distribution Width SD 51.6 fl (35.1-43.9); Red Blood Count 5.11 M/mm3 (4.6-6.2)
[2019-06-01] MEDS: 0.9% Normal Saline 1,000 ML 1000 ML IV (15:34)
[2019-06-01 15:36] LABS: Differential Indicated SCAN CRITERIA MET
[2019-06-01 15:37] LABS: Prothrombin Time (Protime)PT. 13.2 SECONDS (11.7-14.9)
[2019-06-01 15:38] LABS: Partial Thromboplast Time 26.4 Seconds (24.1-36.2)
[2019-06-01] MEDS: Diphth,Pertuss(Acell),Tet Vac 0.5 ML Vial IM (15:38)
[2019-06-01 15:46] LABS: Bedside Glucose 153 mg/dL (70-110)
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
--- NOTE | 2019-06-01 15:56 | ED.RN ---
[facility] CONTACTED FOR TRANSPORT
[2019-06-01 16:02] LABS: Differential Comment SCANNED
[2019-06-01 16:09] LABS: Alcohol, Blood (Medical)-Serum < 3.0 mg/dL
[2019-06-01 16:15] LABS: ALB/GLOB Ratio 0.8 RATIO (0.9-2.4); AST(SGOT) 59 U/L (15-37); Alanine Aminotransfer ALT/SGPT 65 U/L (16-61); Albumin, Serum 3.5 g/dL (3.2-5.0); Alkaline Phosphatase 183 U/L (45-117); Anion Gap 19 (5-15); BUN 5 mg/dL (7-18); BUN/Creat Ratio 4.6 RATIO (10-20); Chloride 95 mmol/L (98-107); Creatinine, Serum 1.09 mg/dL (0.70-1.30); EST Glomerular Filtration Rate 77 mL/min (>60); Est Glom Filt Rate - Afr Amer 93 mL/min (>60); Estimated Creatinine Clearance 82.88 ml/min; Globulin 4.3 g/dL (2.2-4.2); Glucose 136 mg/dL (74-106); Potassium 3.4 mmol/L (3.5-5.1); Protein, Total 7.8 g/dL (6.4-8.2); Sodium Level 133 mmol/L (136-145)
--- NOTE | 2019-06-01 16:23 | ED.RN ---
REPORT TO [facility] AND GILBERTO TORRES AT [facility] ED. PT SKIN P/W/D, RESP EVEN AND UNLABORED, PT A&O X 3 AT THIS TIME, NO DISTRESS NOTED. PT OUT OF ED WITH [facility] FOR TRANSPORT TO [facility] ED.
[2019-06-02 12:27] LABS: Pathologist Review Reviewed
== END 2019-06-01 16:23 | disposition short-term general hospital (02) ==
PROVIDERS: Emergency Provider Emergency Medicine; Family Provider Family Medicine; PCP Family Medicine
DX: S02.0XXA Fracture of vault of skull, initial encounter for closed fracture (principal); S06.5X0A Traumatic subdural hemorrhage without loss of consciousness, initial encounter; S06.2X0A Diffuse traumatic brain injury without loss of consciousness, initial encounter; G93.89 Other specified disorders of brain; X58.XXXA Exposure to other specified factors, initial encounter; Y93.89 Activity, other specified; Y92.89 Other specified places as the place of occurrence of the external cause; Y99.8 Other external cause status
CPT/HCPCS: 70450; 71046; 72125; 73030; 80053; 80320; 82962; 85025; 85610; 85730; 90715; 96360; 99285; J7030; A4216; G0480

== ENCOUNTER 2019-10-01 17:47 | Inpatient (IN) | payer MEDICAID, SELFPAY ==
[2019-06-01 15:02] VITALS: BMI 27.3
[2019-10-01 17:48] VITALS: BP 144/80; PULSE 101; RESP 17; TEMP 37.4; O2SAT 97; BMI 26.4
[2019-10-01 19:08] LABS: Bacteria 0 SEEN /hpf (None Seen); Mucous, Urine 0 SEEN /hpf (<or=2+); Red Blood Cells-Urine 0 SEEN /hpf (0-5); Squamous Epithelial Cells - UA 0 SEEN /hpf (0-5); White Blood Cells 0 SEEN /hpf (0-5)
[2019-10-01 19:10] LABS: Color, Urine Yellow (Yellow); Glucose, Dipstick Normal (Normal); Leukocyte Esterase-Dipstick 25 /ul (Negative); Nitrite-Dipstick Negative (Negative); Occult Blood-Urine 25 /ul (Negative); Protein-Dipstick 30 mg/dl (Negative); Urine Bilirubin Dipstick Negative (Negative); Urine Clarity Sl. Cloudy (Clear); Urine Urobilinogen Normal (Normal); Urine pH 6.5 (5.0 - 8.0)
[2019-10-01] MEDS: 0.9% Normal Saline 1,000 ML 1000 ML IV (19:10)
[2019-10-01 19:17] LABS: Ketone-Dipstick 150 mg/dl (Negative)
[2019-10-01 19:24] LABS: Absolute Lymphocyte Count 0.61 X10^3/uL (0.83-4.51); Absolute Neutrophil Count 11.4 X10^3/uL (2.0-7.7); Basophil# 0.03 X10^3/uL; Basophil% 0.2 % (0-1); Hematocrit 45.9 % (40-54); Hemoglobin 16.4 g/dL (13.0-16.5); Lymphocyte # 0.61 X10^3/ul (4.0); Lymphocyte % 4.7 % (19-41); Mean Corp Hgb Conc 35.7 g/dL (32-36); Mean Corpuscular Hgb 32.3 pg (27.0-32.0); Mean Corpuscular Volume 90.5 fL (80-94); Mean Platelet Vol. 8.8 fl (6.2-12.0); Monocyte# 0.98 X10^3/uL; Monocyte% 7.5 % (0-10); NRBC Flagged by Analyzer 0 % (0-5); Neutrophil # 11.35 X10^3/uL (2.7-7.7); Neutrophil % 87.1 % (47-70); Platelet Count 232 K/mm3 (150-450); RBC Distribution Width SD 50.2 fl (35.1-43.9); Red Blood Count 5.07 M/mm3 (4.6-6.2)
[2019-10-01 19:37] LABS: ALB/GLOB Ratio 1.1 RATIO (0.9-2.4); AST(SGOT) 51 U/L (15-37); Alanine Aminotransfer ALT/SGPT 49 U/L (16-61); Albumin, Serum 3.9 g/dL (3.2-5.0); Alkaline Phosphatase 107 U/L (45-117); Anion Gap 10 (5-15); BUN 6 mg/dL (7-18); BUN/Creat Ratio 9.5 RATIO (10-20); Calcium,Total 9.3 mg/dL (8.5-10.1); Chloride 99 mmol/L (98-107); Creatinine, Serum 0.63 mg/dL (0.70-1.30); EST Glomerular Filtration Rate 144 mL/min (>60); Est Glom Filt Rate - Afr Amer 174 mL/min (>60); Estimated Creatinine Clearance 152.72 ml/min; Globulin 3.7 g/dL (2.2-4.2); Glucose 92 mg/dL (74-106); Lipase 59 U/L (73-393); Potassium 4.1 mmol/L (3.5-5.1); Protein, Total 7.6 g/dL (6.4-8.2); Sodium Level 132 mmol/L (136-145)
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
--- NOTE | 2019-10-01 21:04 | ED.DCSUM_ITS ---
- ER Visit Summary Date of Service: 10/01/19 Chief Complaint: Alcohol withdrawal History of Present Illness: The patient is a 49 M who presents requesting alcohol detox. Patient states he drinks 1 bottle of liquor per day. Patient states he has been drinking this way for years. Patient was in detox here approximately 8 months ago. Patient states his last drink was this morning. Patient admits to some vomiting. Patient admits to subjective fevers. Patient also admits to a mild tremor. Patient denies any seizures. Patient denies any rash or diarrhea. Patient denies any palpitations. Physical Examination: Vital signs are stable. Patient is afebrile. Patient is in no acute distress. Oral mucosa is pink and moist. Neck is supple. Trachea is midline. There is no JVD. Heart was regular rate and rhythm. Lungs are clear and equal bilaterally. Abdomen is soft. Bowel sounds are normal. There is no tenderness. Cranial nerves II through XII are intact. There is a slight tremor. There are no focal motor or sensory deficits noted. Extremities are intact. There is no calf tenderness or edema. Test Results: CBC shows a slight leukocytosis of 13.0. Comprehensive metabolic profile showed a slightly elevated bilirubin of 1.2. Electrolytes were otherwise essentially within normal limits. Urinalysis does not show any evidence of urinary tract infection. Emergency Department Course and Treatment: Patient was given IV fluids. Patient still is requesting alcohol detox. Case was discussed with the hospitalist. She requested adding on a serum alcohol level and urine tox screen. These were ordered. Patient will be admitted to the hospital. Patient understands and is agreeable with the plan. All questions were answered. Disposition: Admit to hospital Impression: Alcohol withdrawal This note was generated with [employer] dictation software. It may contain incorrect words, spelling, and punctuation that were not noted in review of the chart prior to signing ED Disposition - Plan for ED Patient: Disposition: Acute Care Hospital [facility] Diagnosis: Alcohol withdrawal Referrals: Miguel Galo MD [Primary Care Provider] -
[2019-10-01 21:09] LABS: Amphetamine Urine VISTA NEGATIVE (<1000 ng/mL); Barbiturate Urine VISTA NEGATIVE (< 200 ng/mL); Benzodiazepine Urine VISTA NEGATIVE (< 200 ng/mL); Cocaine Urine VISTA NEGATIVE (< 300 ng/mL); Ecstacy Urine VISTA NEGATIVE (< 500 ng/mL); Methadone Urine VISTA NEGATIVE (< 300 ng/mL); PCP Urine VISTA NEGATIVE (< 25 ng/mL); THC Urine VISTA POSITIVE (< 50 ng/mL); Vista UDS pH Range 6
[2019-10-01 21:17] VITALS: BP 145/99; PULSE 110; RESP 16; O2SAT 97
[2019-10-01 21:29] LABS: Alcohol, Blood (Medical)-Serum < 3.0 mg/dL
[2019-10-01 21:45] VITALS: BMI 26.1
[2019-10-01 22:03] LABS: Magnesium 2.2 mg/dL (1.6-2.6); Phosphorus 2.3 mg/dL (2.5-4.9)
[2019-10-01 22:09] VITALS: BP 139/69; PULSE 104; RESP 18; TEMP 37.4; O2SAT 94
[2019-10-01] MEDS: Phenobarbital Sodium 130 MG/ML Vial 100 MG IV (22:19)
[2019-10-01] MEDS: Lactated Ringers 1,000 ML 125 ML IV (22:20)
[2019-10-01] MEDS: Famotidine 20 MG Tablet PO (22:24)
[2019-10-01] MEDS: traZODone 50 MG Tablet PO (22:24)
[2019-10-02 01:18] VITALS: BP 155/89; PULSE 100; RESP 18; TEMP 36.6; O2SAT 95
[2019-10-02] MEDS: QUEtiapine 25 MG Tablet PO (01:18)
[2019-10-02] MEDS: Methocarbamol 750 MG Tablet PO (01:18)
[2019-10-02] MEDS: Phenobarbital Sodium 130 MG/ML Vial 60 MG IV ×4 (04:30→22:15)
[2019-10-02] MEDS: 0.9% Saline Lock 10 ML Syringe IV ×4 (04:30→22:16)
[2019-10-02 04:40] VITALS: BP 117/86; PULSE 83; RESP 17; TEMP 36.7; O2SAT 94
[2019-10-02] MEDS: Thiamine Hydrochloride 100 MG Tablet PO (08:18)
[2019-10-02] MEDS: Famotidine 20 MG Tablet PO ×2 (08:18→22:15)
[2019-10-02] MEDS: Folic Acid 1 MG Tablet PO (08:18)
[2019-10-02] MEDS: Multivitamins,Therapeutic Tablet 1 TABLET PO (08:18)
[2019-10-02 08:25] VITALS: BP 163/91; PULSE 89; RESP 16; TEMP 37.2; O2SAT 100
--- NOTE | 2019-10-02 10:05 | PCM.PN.HOSP ---
Patient Problems: Active and Suspected Problems Alcohol withdrawal (Acute) Subjective: Feeling okay at the moment, states that he drinks 1/5 of scotch Vitals/I&O's: Vital Signs Temp Pulse Resp BP Pulse Ox 98.1 F 83 17 117/86 H 94 10/02/19 04:40 10/02/19 04:40 10/02/19 04:40 10/02/19 04:40 10/02/19 04:40 Oxygen Delivery Method Room Air Weight: 187 lb 7 oz Body Mass Index (BMI) 26.1 Finger Stick Blood Glucose 153 Intake and Output for Last 24 Hours 09/30/19 10/01/19 10/02/19 23:59 23:59 23:59 Intake Total 1600 / 1600 2109 / 2109 Output Total 400 / 400 Balance 1599 / 1599 1709 / 1709 General: Alert, Oriented x3, Cooperative, No apparent distress HEENT: Atraumatic, PERRLA, EOMI, Normocephalic Oral: Moist Mucosa Neck: Supple, No JVD Lungs: Clear to auscultation, Normal air movement, No rhonchi, No wheeze, No rales Cardiovascular: Regular rate, Regular Rhythm, Normal S1, Normal S2, No murmurs Abdomen: Soft, Non Tender, Non-Distended, No Hepato-splenomegaly Extremities: No edema, Capillary Refill Less than 3 Seconds Skin: No rashes, No breakdown Neurological: Neuro grossly intact, Sensory exam intact to light touch and pain Psych/Mental Status: Normal Affect, Appropriate Laboratory Results 10/01/19 18:57: Urine Color Yellow, Urine Clarity Sl. Cloudy, Urine pH 6.5, Ur Specific [place] 1.010, Urine Protein 30 H, Urine Glucose (UA) Normal, Urine Ketones 150 H, Urine Occult Blood 25 H, Urine Nitrite Negative, Urine Bilirubin Negative, Urine Urobilinogen Normal, Ur Leukocyte Esterase 25 H, Urine RBC 0 SEEN, Urine WBC 0 SEEN, Ur Squamous Epith Cells 0 SEEN, Urine Bacteria 0 SEEN, Urine Mucus 0 SEEN 10/01/19 18:57: Urine Opiates Screen NEGATIVE, Urine Methadone Screen NEGATIVE, Ur Barbiturates Screen NEGATIVE, Ur Phencyclidine Scrn NEGATIVE, Ur Amphetamines Screen NEGATIVE, U Methamphetamin-MDMA NEGATIVE, U Benzodiazepines Scrn NEGATIVE, Urine Cocaine Screen NEGATIVE, U Cannabinoids Screen POSITIVE H, Ur Drug Screen Comment 10/01/19 19:10: WBC 13.0 H, RBC 5.07, Hgb 16.4, Hct 45.9, MCV 90.5, MCH 32.3 H, MCHC 35.7, RDW Std Deviation 50.2 H, RDW Coeff of Wilma 15.0 H, Plt Count 232, MPV 8.8, Immature Gran % (Auto) 0.500, Neut % (Auto) 87.1 H, Lymph % (Auto) 4.7 L, Davidson % (Auto) 7.5, Eos % (Auto) 0.0, Baso % (Auto) 0.2, Absolute Neuts (auto) 11.4 H, Absolute Lymphs (auto) 0.61 L, Nucleated RBC % 0 10/01/19 19:10: Sodium 132 L, Potassium 4.1, Chloride 99, Carbon Dioxide 23.0, Anion Gap 10, BUN 6 L, Creatinine 0.63 L, Estim Creat Clear Calc 152.72, Est GFR (MDRD) Af Amer 174, Est GFR (MDRD) Non-Af 144, BUN/Creatinine Ratio 9.5 L, Glucose 92, Calcium 9.3, Total Bilirubin 1.20 H, AST 51 H, ALT 49, Alkaline Phosphatase 107, Total Protein 7.6, Albumin 3.9, Globulin 3.7, Albumin/Globulin Ratio 1.1, Lipase 59 L 10/01/19 19:10: Phosphorus 2.3 L, Magnesium 2.2 10/01/19 20:55: Ethyl Alcohol < 3.0 Current Medications Acetaminophen (Tylenol) 500 mg PO Q4H PRN PRN PRN Reason: Temp > 100.4 F Al Hydroxide/Mg Hydroxide (Mylanta Ii) 30 ml PO Q6H PRN PRN PRN Reason: dyspesia Albuterol Sulfate (Ventolin Aerosols) 2.5 mg INHALATION Q2H PRN PRN PRN Reason: dyspnea, wheezing Bisacodyl (Dulcolax) 10 mg RECTAL DAILY PRN PRN Reason: Constipation Dicyclomine HCl (Bentyl) 20 mg PO Q6H PRN PRN PRN Reason: abdominal discomfort Famotidine (Pepcid) 20 mg PO BID [facility] Last Admin: 10/02/19 08:18 Dose: 20 mg Documented by: Folic Acid (Folic Acid) 1 mg PO DAILYCM [facility] Stop: 10/04/19 08:01 Last Admin: 10/02/19 08:18 Dose: 1 mg Documented by: Glucagon () 1 mg IM .X1 PRN PRN Reason: Hypoglycemia Hydralazine HCl (Apresoline Iv) 10 mg IV Q4H PRN PRN PRN Reason: SBP > 160 Hydroxyzine Pamoate (Vistaril Pamoate Capsule) 50 mg PO Q6H PRN PRN PRN Reason: Mild Anxiety (score 1/3) Dextrose (Dextrose 10%-Water) 250 mls @ 999 mls/hr IV .Q16M PRN; Protocol PRN Reason: HYPOGLYCEMIA Sodium Chloride () 250 mls @ 15 mls/hr IV .[id number] PRN PRN Reason: Saline Flush Last Infusion: 10/02/19 04:32 Dose: 0 mls/hr Documented by: Sodium Chloride () 250 mls @ 15 mls/hr IV .[id number] PRN PRN Reason: Additional IVPB Infusion Ibuprofen (Motrin) 600 mg PO Q8H PRN PRN PRN Reason: Pain Score 1-10/10 Loperamide HCl (Imodium) 2 - 4 mg PO UD PRN PRN Reason: LOOSE STOOLS Lorazepam (Ativan) 1 mg IV Q4H PRN PRN PRN Reason: Severe Anxiety Lorazepam (Ativan) 2 mg IV X1 PRN PRN Reason: Seizure Lorazepam (Ativan) 2 mg PO Q2H PRN PRN; Protocol PRN Reason: CIWA score > 8 but <15 Lorazepam (Ativan) 2 mg PO UD PRN; Protocol PRN Reason: CIWA score >/=15. Lorazepam (Ativan) 2 mg IV Q2H PRN PRN; Protocol PRN Reason: CIWA score > 8 but <15 Lorazepam (Ativan) 2 mg IV UD PRN; Protocol PRN Reason: CIWA score >/=15. Methocarbamol (Methocarbamol) 750 mg PO Q6H PRN PRN PRN Reason: Muscle Aches Last Admin: 10/02/19 01:18 Dose: 750 mg Documented by: Multivitamins ([facility]ivitamin) [facility] Last Admin: 10/02/19 08:18 Dose: 1 tablet Documented by: Nicotine (Nicoderm Cq (Pbkc)) 21 mg TRANSDERM. DAILY [facility] Last Admin: 10/02/19 08:18 Dose: 21 mg Documented by: Ondansetron HCl (Zofran Odt) 4 mg PO Q6H PRN PRN PRN Reason: NAUSEA Phenobarbital (Phenobarbital Sodium) 60 mg IV Q6H [facility]; Taper Stop: 10/05/19 04:19 Last Admin: 10/02/19 04:30 Dose: 60 mg Documented by: Quetiapine Fumarate (Seroquel) 25 mg PO Q6H PRN PRN PRN Reason: agitation, anxiety Last Admin: 10/02/19 01:18 Dose: 25 mg Documented by: Senna (Senokot) 1 tablet PO QHS PRN PRN PRN Reason: Constipation Sodium Chloride () 10 - 40 ml IV UD PRN PRN Reason: SALINE FLUSH Last Admin: 10/02/19 04:30 Dose: 10 ml Documented by: Thiamine HCl (Vitamin B1) 100 mg PO DAILYCM [facility] Stop: 10/04/19 08:01 Last Admin: 10/02/19 08:18 Dose: 100 mg Documented by: Trazodone HCl (Desyrel) 50 mg PO QHS [facility] Last Admin: 10/01/19 22:24 Dose: 50 mg Documented by: Medical Necessity - Tobacco Use Smoking Status: Current every day smoker Tobacco Use: Cigarettes Assessment/Plan All Active Problems Alcohol withdrawal (Acute) Alcohol withdrawal (Acute) 1. Alcohol withdrawal/tobacco abuse -Currently stable, will continue with alcohol withdrawal protocol -Ativan and phenobarb taper, he does have a history of seizures -Continue with nicotine patch she is a 2 pack-a-day smoker 2. Anxiety/depression -Once he is through the acute withdrawal will discuss with him an SSRI versus SNRI for discharge -He will need outpatient follow-up 3. Chronic COPD -Albuterol is available but he is not taking inhalers at home at baseline 4. GERD -Stable -Continue with Pepcid 5. HTN?resolved DVT: Ambulation Code Visit Inpatient E&M: 08793 Subs Hosp L2
--- NOTE | 2019-10-02 13:23 | CASEMGMT ---
Social Work Note Pt is at [facility] for ETOH withdrawal. SW met with pt and introduced self and role at [facility]. Pt is alert and orientated x3. Pt states I haven't really thought about what I want to do at discharge, I may go somewhere for some counseling but not sure. Pt unable to identify any agencies. SW provided pt with packet of substance abuse information and resources including AA meetings. Pt thanked this worker for information, denied additional needs or concerns at this time. Serina Subramanian PALM GATHERER, POLICY AND PLANNING MANAGER
[2019-10-02 16:58] VITALS: BP 151/99; PULSE 86; RESP 16; TEMP 36.8; O2SAT 96
[2019-10-02 22:00] VITALS: BP 164/79; PULSE 86; RESP 20; TEMP 36.6; O2SAT 98
[2019-10-02] MEDS: traZODone 50 MG Tablet PO (22:15)
[2019-10-03] MEDS: Phenobarbital Sodium 130 MG/ML Vial 60 MG IV ×2 (04:24→12:35)
[2019-10-03] MEDS: 0.9% Saline Lock 10 ML Syringe IV ×2 (04:24→12:36)
[2019-10-03 06:00] VITALS: BP 140/102; PULSE 88; RESP 16; TEMP 36.8; O2SAT 98
[2019-10-03 09:00] VITALS: BP 152/93; PULSE 95; RESP 16; TEMP 36.9; O2SAT 96
[2019-10-03] MEDS: Multivitamins,Therapeutic Tablet 1 TABLET PO (09:11)
[2019-10-03] MEDS: Thiamine Hydrochloride 100 MG Tablet PO (09:11)
[2019-10-03] MEDS: Famotidine 20 MG Tablet PO ×2 (09:11→21:02)
[2019-10-03] MEDS: Folic Acid 1 MG Tablet PO (09:11)
--- NOTE | 2019-10-03 10:00 | PN_ITS ---
Patient Problems: Active and Suspected Problems Alcohol withdrawal (Acute) Subjective: Patient seen and examined. He had no complaints. He denies fever, chills, nausea vomiting or diarrhea. Review of signs otherwise negative. He is on a phenobarb taper. Vitals/I&O's: Vital Signs Temp Pulse Resp BP Pulse Ox 98.4 F 95 16 152/93 H 96 10/03/19 09:00 10/03/19 09:00 10/03/19 09:00 10/03/19 09:00 10/03/19 09:00 Oxygen Delivery Method Room Air Weight: 187 lb 7 oz Body Mass Index (BMI) 26.1 Finger Stick Blood Glucose 153 Intake and Output for Last 24 Hours 10/01/19 10/02/19 10/03/19 23:59 23:59 23:59 Intake Total 1600 / 1600 3010 / 3610 950 / 950 Output Total 2100 / 2100 Balance 1600 / 1600 910 / 1510 950 / 950 General: Alert, Oriented x3, Cooperative, No apparent distress HEENT: Atraumatic, PERRLA, EOMI, Normocephalic Oral: Moist Mucosa Neck: Supple, No JVD, Negative Carotid Bruits Lungs: Clear to auscultation, Normal air movement, No rhonchi, No wheeze, No rales Cardiovascular: Regular rate, Regular Rhythm, Normal S1, Normal S2, No murmurs Abdomen: Bowel Sounds Present, Soft, Non Tender, Non-Distended, No Hepato- splenomegaly Extremities: No clubbing, No cyanosis, No edema, Capillary Refill Less than 3 Seconds Skin: No rashes, No breakdown Musculoskeletal: No Tenderness to Palpation of Joints or Extremities Lymphatic: No Cervical, Supraclavicular, or Inguinal Adenopathy Neurological: Cranial nerves II-XII grossly intact, Neuro grossly intact, Motor Exam 5/5 strength throughout Psych/Mental Status: Normal Affect, Appropriate, Alert and oriented to time, place, person, mood and affect Current Medications Acetaminophen (Tylenol) 500 mg PO Q4H PRN PRN PRN Reason: Temp > 100.4 F Al Hydroxide/Mg Hydroxide (Mylanta Ii) 30 ml PO Q6H PRN PRN PRN Reason: dyspesia Albuterol Sulfate (Ventolin Aerosols) 2.5 mg INHALATION Q2H PRN PRN PRN Reason: dyspnea, wheezing Bisacodyl (Dulcolax) 10 mg RECTAL DAILY PRN PRN Reason: Constipation Dicyclomine HCl (Bentyl) 20 mg PO Q6H PRN PRN PRN Reason: abdominal discomfort Famotidine (Pepcid) 20 mg PO BID [facility] Last Admin: 10/03/19 09:11 Dose: 20 mg Documented by: Folic Acid (Folic Acid) 1 mg PO DAILYCM [facility] Stop: 10/04/19 08:01 Last Admin: 10/03/19 09:11 Dose: 1 mg Documented by: Glucagon () 1 mg IM .X1 PRN PRN Reason: Hypoglycemia Hydralazine HCl (Apresoline Iv) 10 mg IV Q4H PRN PRN PRN Reason: SBP > 160 Hydroxyzine Pamoate (Vistaril Pamoate Capsule) 50 mg PO Q6H PRN PRN PRN Reason: Mild Anxiety (score 1/3) Dextrose (Dextrose 10%-Water) 250 mls @ 999 mls/hr IV .Q16M PRN; Protocol PRN Reason: HYPOGLYCEMIA Sodium Chloride () 250 mls @ 15 mls/hr IV .[id number] PRN PRN Reason: Saline Flush Last Infusion: 10/02/19 04:32 Dose: 0 mls/hr Documented by: Sodium Chloride () 250 mls @ 15 mls/hr IV .[id number] PRN PRN Reason: Additional IVPB Infusion Ibuprofen (Motrin) 600 mg PO Q8H PRN PRN PRN Reason: Pain Score 1-10/10 Loperamide HCl (Imodium) 2 - 4 mg PO UD PRN PRN Reason: LOOSE STOOLS Lorazepam (Ativan) 1 mg IV Q4H PRN PRN PRN Reason: Severe Anxiety Lorazepam (Ativan) 2 mg IV X1 PRN PRN Reason: Seizure Lorazepam (Ativan) 2 mg PO Q2H PRN PRN; Protocol PRN Reason: CIWA score > 8 but <15 Lorazepam (Ativan) 2 mg PO UD PRN; Protocol PRN Reason: CIWA score >/=15. Lorazepam (Ativan) 2 mg IV Q2H PRN PRN; Protocol PRN Reason: CIWA score > 8 but <15 Lorazepam (Ativan) 2 mg IV UD PRN; Protocol PRN Reason: CIWA score >/=15. Methocarbamol (Methocarbamol) 750 mg PO Q6H PRN PRN PRN Reason: Muscle Aches Last Admin: 10/02/19 01:18 Dose: 750 mg Documented by: [facility]) [facility] Last Admin: 10/03/19 09:11 Dose: 1 tablet Documented by: Nicotine (Nicoderm Cq (Pbkc)) 21 mg TRANSDERM. DAILY [facility] Last Admin: 10/03/19 09:11 Dose: Not Given Documented by: Ondansetron HCl (Zofran Odt) 4 mg PO Q6H PRN PRN PRN Reason: NAUSEA Phenobarbital (Phenobarbital Sodium) 60 mg IV Q8H [facility]; Taper Stop: 10/05/19 04:19 Last Admin: 10/03/19 04:24 Dose: 60 mg Documented by: Quetiapine Fumarate (Seroquel) 25 mg PO Q6H PRN PRN PRN Reason: agitation, anxiety Last Admin: 10/02/19 01:18 Dose: 25 mg Documented by: Senna (Senokot) 1 tablet PO QHS PRN PRN PRN Reason: Constipation Sodium Chloride () 10 - 40 ml IV UD PRN PRN Reason: SALINE FLUSH Last Admin: 10/03/19 04:24 Dose: 10 ml Documented by: Thiamine HCl ([facility]itamin B1) [facility] Stop: 10/04/19 08:01 Last Admin: 10/03/19 09:11 Dose: 100 mg Documented by: Trazodone HCl (Desyrel) 50 mg PO QHS [facility] Last Admin: 10/02/19 22:15 Dose: 50 mg Documented by: STROKE Vital Signs/Narrative: Vital Signs Temp Pulse Resp BP Pulse Ox 10/03/19 09:00 98.4 F 95 16 152/93 H 96 Medical Necessity - Tobacco Use Smoking Status: Current every day smoker Tobacco Use: Cigarettes Assessment/Plan All Active Problems Alcohol withdrawal (Acute) Alcohol withdrawal (Acute) 1. Acute alcohol withdrawal * on phenobarb taper. * CIWA score-1 today * on thiamine, multivites and folic acid * 2. Anxiety and depression: not on any meds. TO follow up with PCP upon discharge to start meds as needed 3. COPD: on breathing treatments prn. Not in exacerbation 4. GERD: on pepcid DVT prophylaxis: low risk; encourage ambulation Code Visit Inpatient E&M: 79412 Subs Hosp L2
[2019-10-03 13:59] VITALS: BP 146/94; PULSE 88; RESP 16; TEMP 36.7; O2SAT 97
[2019-10-03] MEDS: traZODone 50 MG Tablet PO (21:02)
[2019-10-03 21:09] VITALS: BP 169/108; PULSE 86; RESP 18; TEMP 36.7; O2SAT 97
[2019-10-03] MEDS: Phenobarbital 32.4 MG Tablet 64.8 MG PO (23:05)
[2019-10-04 01:30] LABS: Bedside Glucose 129 mg/dL (70-110)
[2019-10-04 02:00] VITALS: BP 115/76; PULSE 79; RESP 16; TEMP 36.3; O2SAT 97
--- NOTE | 2019-10-04 08:02 | NURSING ---
Spoke with Roque in pharmacy- phenobarbital scheduling adjusted. New order was accidentally scheduled for 10/03 and d/c'ed prior to staff being able to view. Roque states he will reschedule.
--- NOTE | 2019-10-04 09:26 | NURSING ---
informed by Primary RN that patient is missing. security already on unit back to room with this nurse. noted all belongings are gone and iv in trash can. Dr. Yañez informed.
--- NOTE | 2019-10-04 13:39 | NURSING ---
This RN saw pt at change of shift at 0720. Pt reported that he absolutely needed to leave now as a friend was admitted to [facility]. Notified pt that doctor will have to come assess pt and discharge prior to pt leaving. Pt verbalized understanding and remained in room, preparing to eat breakfast. This RN went into room at 0920 to assess pt and give AM medications however, patient was not in the room and there was hospital gown and hospital socks in corner of room and pt belongings were gone. Old IV had been removed and was in garbage can at bedside. inés richardson RN and social security assessor notified that patient was missing. Dr. Yañez notified in person at 0930 as she was in hallway outside of pt room waiting on pt.
--- NOTE | 2019-10-04 15:01 | PCM.DC.SUM ---
Discharge Date and Diagnosis Date of Admission: 10/01/19 Date of Discharge: 10/04/19 - Primary Discharge Diagnosis acute alcohol withdrawal - Secondary Discharge Diagnosis Chronic Problems GERD (gastroesophageal reflux disease) (Chronic) COPD (chronic obstructive pulmonary disease) (Chronic) Alcohol abuse (Chronic) Seizure disorder (Chronic) Tobacco abuse (Chronic) Benign essential hypertension (Chronic) Hospital Course and Treatment Operations: None Procedures: None Summary of Care Provided: The patient is a 49 year old M with a past medical history of COPD, anxiety and depression as well as nicotine dependence and alcohol abuse. He was admitted through the ED on 10/01/2019 with a complaint of acute alcohol withdrawal started after he took alcohol early in the morning of the day of admission. He had nausea, tremors and agitation as well as tactile disturbances. He was admitted and managed for acute alcohol withdrawal. He was started on alcohol withdrawal protocol with phenobarbital. CIWA score was monitored. Patient symptoms gradually improved and resolved while she was on phenobarb. Patient tolerated acute alcohol withdrawal stabilization protocol with phenobarbital. However on 10/04/2019, patient's left the hospital AGAINST MEDICAL ADVICE. Patient left AMA before he could be reviewed by physician. Unable to do physical examination review of systems on day of discharge. o/e: Vital Signs Height 5 ft 11 in Weight: 187 lb 7 oz Weight in Pounds 187.4 lbs Pulse Ox 97 Temperature 97.4 F Pulse Rate 79 Respiratory Rate 16 Blood Pressure 115/76 Blood Pressure Position Supine . [] Physical examination not done as patient left AMA early in the morning before he could be reviewed. - Physical Exam Vitals/I&O's: Vital Signs Temp Pulse Resp BP Pulse Ox 97.4 F L 79 16 115/76 97 10/04/19 02:00 10/04/19 02:00 10/04/19 02:00 10/04/19 02:00 10/04/19 02:00 Oxygen Delivery Method Room Air Weight: 187 lb 7 oz Body Mass Index (BMI) 26.1 Finger Stick Blood Glucose 153 Intake and Output for Last 24 Hours 10/02/19 10/03/19 10/04/19 23:59 23:59 23:59 Intake Total 3010 / 3610 950 / 1550 1300 / 1300 Output Total 2100 / 2100 Balance 910 / 1510 950 / 1550 1300 / 1300 Laboratory Results 10/03/19 23:18: POC Glucose 129 H Primary Care Physician: Miguel Galo MD [Primary Care Provider] - Disposition: Against Medical Advice Minutes spent on discharge:: 25 Medical Necessity - Tobacco Use Smoking Status: Current every day smoker Tobacco Use: Cigarettes Meaningful Use Info Meaningful Use Diagnoses (Choose all that apply): None applicable Code Visit Inpatient E&M: 05267 Disch Hosp
== END 2019-10-04 09:25 | disposition left against medical advice (07) | DRG 770 ==
LOC: ED 21:07 → MS3 21:25
PROVIDERS: Admitting Provider Family Medicine; Emergency Provider Emergency Medicine; PCP Family Medicine; Visit Provider Student in an Organized Health Care Education/Training Program
DX: F10.239 Alcohol dependence with withdrawal, unspecified (principal); F17.210 Nicotine dependence, cigarettes, uncomplicated; J44.9 Chronic obstructive pulmonary disease, unspecified; I10 Essential (primary) hypertension; K21.9 Gastro-esophageal reflux disease without esophagitis; G40.909 Epilepsy, unspecified, not intractable, without status epilepticus; Y90.0 Blood alcohol level of less than 20 mg/100 ml
CPT/HCPCS: 80053; 80307; 80320; 81001; 82962; 83690; 83735; 84100; 85025; 99284; 99406; J7030; J7050; J7120; A4216; G0480

== ENCOUNTER 2019-12-14 11:47 | Inpatient (IN) | payer MEDICAID, SELFPAY ==
[2019-11-24 09:24] VITALS: BMI 26.1
[2019-12-14 11:48] VITALS: BP 182/124; PULSE 104; RESP 14; TEMP 37.2; O2SAT 98; BMI 26.5
--- NOTE | 2019-12-14 12:03 | RAD_ITS ---
STUDY: X-RAY CHEST REASON FOR EXAM: Male, 49 years old. CP and abd pain x 2-3 days -- SOB TECHNIQUE: Single AP portable view of the chest. COMPARISON: June 01, 2019 chest x-ray FINDINGS: The interstitial markings are minimally prominent. Findings are similar to prior study. There is no demonstrated pleural abnormality. Normal size heart. Normal mediastinum and chaparrita. Normal visualized pulmonary arteries. Normal visualized aortic arch and descending thoracic aorta. There is a levoscoliosis of the thoracic spine. There is an old left fifth rib fracture. There is no demonstrated abnormality of the visualized soft tissue structures of the upper abdomen. RAD/Chest 1 View (Portable) IMPRESSION: Stable chest no visualized acute focal infiltrate. Electronically Signed: Nya Richardson MD at 13:36 EDT Tel , Service support ,
--- NOTE | 2019-12-14 12:04 | EKG12_ITS ---
Test Reason : Blood Pressure : / mmHG Vent. Rate : 108 BPM Atrial Rate : 108 BPM P-R Int : 128 ms QRS Dur : 082 ms QT Int : 338 ms P-R-T Axes : 073 064 067 degrees QTc Int : 452 ms Sinus tachycardia Otherwise normal ECG Confirmed by WOLFGANG WRIGHT ([id number]), order editor OSIEL KHAN ([id number]) on 12/19/2019 10:31:40 AM Referred By: PERLA Confirmed By:WOLFGANG WRIGHT
[2019-12-14] MEDS: Ondansetron 4 MG/2 ML Vial IV (12:20)
[2019-12-14] MEDS: Mag Hydrox/Al Hydrox/Simeth 30 ML UDC PO (12:21)
[2019-12-14] MEDS: Morphine 4 MG/ML Syringe IV (12:21)
[2019-12-14] MEDS: LORazepam 2 MG/ML Syringe IV (12:21)
[2019-12-14] MEDS: 0.9% Normal Saline 1,000 ML 1000 ML IV (12:21)
[2019-12-14 12:22] LABS: Absolute Neutrophil Count 7.2 X10^3/uL (2.0-7.7); Basophil# 0.02 X10^3/uL; Basophil% 0.2 % (0-1); Eosinophil# 0.03 X10^3/uL; Eosinophils% 0.3 % (0-5); Hematocrit 47.9 % (40-54); Hemoglobin 16.9 g/dL (13.0-16.5); Lymphocyte % 11.7 % (19-41); Mean Corp Hgb Conc 35.3 g/dL (32-36); Mean Corpuscular Hgb 32.4 pg (27.0-32.0); Mean Corpuscular Volume 91.8 fL (80-94); Monocyte# 0.99 X10^3/uL; Monocyte% 10.5 % (0-10); NRBC Flagged by Analyzer 0 % (0-5); Neutrophil # 7.22 X10^3/uL (2.7-7.7); Neutrophil % 76.9 % (47-70); Platelet Count 250 K/mm3 (150-450); RBC Distribution Width CV 15.5 % (11.6-14.6); RBC Distribution Width SD 52.2 fl (35.1-43.9); Red Blood Count 5.22 M/mm3 (4.6-6.2); White Blood Count 9.4 K/mm3 (4.4-11.0)
--- NOTE | 2019-12-14 12:31 | ED.DCSUM_ITS ---
- ER Visit Summary Date of Service: 12/14/19 Chief Complaint: Chest and abdominal pain History of Present Illness: The patient is a [address] Bowles. He reports for the past 3 days he has had upper abdominal and chest pain. To continuous waxing and waning pain that he describes as sharp. In his chest it is 8 out of 10 at worst and 7 out of 10 currently. In his abdomen is 10 out of 10 in severity. Reports that the pain is worsened by exertion, movement, coughing, breathing, or eating. Is relieved by nothing. He has been nauseated, but is not vomited. Also reports that short of breath and diaphoretic. Patient reports he has had 12 episodes of diarrhea for the past 2 days. He denies blood in his stools or black tarry stools. He denies sick contacts. He has had a cough for a long time. This is not productive. He is having subjective fever and chills. He also complains of generalized weakness. Patient reports that I was hospitalized 3 weeks ago for alcoholism. States that he stayed alcohol free for approximately 2 weeks. He has been drinking 1/5 of scotch a day and his last drink was yesterday. He is concerned that he is in alcohol withdrawal. Physical Examination: Vitals: 98.9, 182/124, 114, 14, 90% room air which is not hypoxic. General: Well-nourished and well-developed. Head: Normocephalic atraumatic. Neck: Supple, no lymphadenopathy. No JVD. Nontender. Cardiovascular: Tachycardic regular rhythm. No murmurs. Respiratory: No respiratory distress. Minimal end expiratory wheezing with good air movement. Abdominal: Soft, moderate diffuse tenderness to palpation that is worst in the epigastric region, nondistended, normal bowel sounds. No guarding, rebound, or peritoneal signs. Back: Nontender. Extremities: Nontender, no edema. Skin: Normal color, no rash. Neurologic: Alert and oriented ?3. Cranial nerves II through XII are intact. Normal strength and sensation. Psych: Anxious and agitated. Test Results: EKG is sinus tach at [address] changes. There is no old EKG for comparison. CBC shows a hemoglobin of 16.9, segmented neutrophils of 77, lymphocytes of 12. CBC shows a hemoglobin of 16.9, segmented feels a 77, lymphocytes 12. Chem-7 shows a sodium 134, BUN of 3, creatinine 0.57, glucose 107. LFTs show an AST of 39, total bili 1.4. Lipase is 71. Troponin is negative. Alcohol is negative. Lactic acid is 1.4. Chest x-ray shows chronic changes. Emergency Department Course and Treatment: Patient was given a GI cocktail and Pepcid IV. Due to the concern of withdrawal he was given a dose of Ativan IV. He was given morphine and Zofran IV. He is resting more comfortably. His CIWA score is 31. Treatment Plan: Patient was discussed with Dr. Pak. He will be admitted to the hospital for further evaluation and treatment. Disposition: Admitted in improved condition. Impression: 1. Atypical chest pain. 2. KARMA score of 0. 3. Alcohol withdrawal. 4. Abdominal pain, uncertain cause. This note was generated with [employer] dictation software. It may contain incorrect words, spelling, and punctuation that were not noted in review of the chart prior to signing ED Disposition - Plan for ED Patient: Referrals: Miguel Galo MD [Primary Care Provider] -
[2019-12-14 12:45] VITALS: BP 150/100; PULSE 90; RESP 18; O2SAT 97
[2019-12-14 12:45] LABS: AST(SGOT) 39 U/L (15-37); Alanine Aminotransfer ALT/SGPT 35 U/L (16-61); Albumin, Serum 3.9 g/dL (3.2-5.0); Alcohol, Blood (Medical)-Serum < 3.0 mg/dL; Alkaline Phosphatase 95 U/L (45-117); Anion Gap 10 (5-15); BUN 3 mg/dL (7-18); BUN/Creat Ratio 5.3 RATIO (10-20); Calcium,Total 9.8 mg/dL (8.5-10.1); Chloride 101 mmol/L (98-107); Creatinine, Serum 0.57 mg/dL (0.70-1.30); EST Glomerular Filtration Rate 162 mL/min (>60); Est Glom Filt Rate - Afr Amer 196 mL/min (>60); Estimated Creatinine Clearance 163.65 ml/min; Globulin 3.8 g/dL (2.2-4.2); Glucose 107 mg/dL (74-106); Lipase 71 U/L (73-393); Potassium 4.2 mmol/L (3.5-5.1); Protein, Total 7.7 g/dL (6.4-8.2); Sodium Level 134 mmol/L (136-145)
[2019-12-14 12:47] LABS: Lactic Acid 1.4 mmol/L (0.4-1.9)
[2019-12-14] MEDS: Famotidine 200 MG/20 ML MDV 20 MG in 0.9% Normal Saline (Pres. free 8 ML 300 MG IV (12:51)
--- NOTE | 2019-12-14 13:48 | ED.RN ---
pt was up to use bathroom for urine sample but stated he forgot to obtain. notified.
[2019-12-14 14:05] VITALS: BP 155/88; PULSE 98; RESP 20; TEMP 37.1; O2SAT 98
--- NOTE | 2019-12-14 14:05 | HP.PCM_ITS ---
Problem List (1) Alcohol withdrawal Status: Acute Qualifiers: Complication of substance-induced condition: with unspecified complication Qualified Code(s): F10.239 - Alcohol dependence with withdrawal, unspecified (2) Alcohol abuse Status: Chronic (3) Benign essential hypertension Status: Chronic (4) COPD (chronic obstructive pulmonary disease) Status: Chronic Qualifiers: COPD type: unspecified COPD Qualified Code(s): J44.9 - Chronic obstructive pulmonary disease, unspecified (5) GERD (gastroesophageal reflux disease) Status: Chronic Qualifiers: Esophagitis presence: esophagitis presence not specified Qualified Code(s): K21.9 - Gastro-esophageal reflux disease without esophagitis (6) Seizure disorder Status: Chronic (7) Tobacco abuse Status: Chronic History of Present Illness Date of Admission: 12/14/19 Chief Complaint: Tremulousness The patient is a 49 year old M past medical history single for chronic alcohol abuse who presented with tremulousness. The report previous detox in September 2019 he however did not complete the program and apparently did sign out AGAINST MEDICAL ADVICE. He reports drinking almost 1 bottle of vodka interchangeably with 16 cans of beer a day. He presented to the ED wanting to detox. On further questioning patient denied any homicidal no suicidal ideation. Denied any seizures. His assessment was consistent with acute alcohol withdrawal with CIWA of 31 admitted to the regular nursing floor for further management Past Medical History Past Medical History (Chronic Problems): Chronic Problems (Last Reviewed 11/24/19 @ 09:24 by Vimal Devine) GERD (gastroesophageal reflux disease) (Chronic) COPD (chronic obstructive pulmonary disease) (Chronic) Alcohol abuse (Chronic) Seizure disorder (Chronic) Tobacco abuse (Chronic) Benign essential hypertension (Chronic) Allergies acetaminophen [From Vicodin] Adverse Reaction (Verified 12/14/19 11:52) Other PT IS NOT ALLERGIC TO TYLENOL hydrocodone bitartrate [From Vicodin] Adverse Reaction (Verified 12/14/19 11:52) Other NIGHTMARES Home Medications: Ambulatory Orders Medication Instructions Recorded NK 11/24/19 Surgical History: cholecystectomy Psychiatric History: Anxiety, Depression Smoking Status: Current every day smoker - *Family History Maternal History Items: Heart Disease, - - Maternal family history of anxiety and depression with suicide associated. Paternal History Items: - - Paternal family history of GERD, peptic ulcer disease, anxiety and depression with possible also from suicide but unclear. Review of Systems Constitutional: Denies: Anorexia, Chills, Fever, Night Sweats, Weight Change HEENT: Denies: Head Aches, Sinus Congestion, Sinus Drainage Cardiovascular: Reports: Chest Pain. Denies: Orthopnea, Palpitations, Paroxysmal Noc. Dyspnea Respiratory: Denies: Cough, Shortness of breath at rest, Shortness of breath upon exertion, Sputum production Gastrointestinal: Reports: Abdominal Pain. Denies: Hematemesis, Hematochezia, Nausea, Melena, Vomiting Genitourinary: Denies: Dysuria, Frequency, Hematuria, Urgency Musculoskeletal: Denies: Joint Pain, Joint Tenderness Skin: Denies: Rash Neurological: Reports: Tremor. Denies: Focal weakness, Numbness, Tingling Psychiatric: Denies: Homicidal Ideations, Suicidal Ideations Hematologic/ Lymphatic: Denies: Easy Bruising, Easy Bleeding VTE Information - Inpt Only VTE Present on Admission: No VTE Mechan Device Prophylaxis: None VTE Pharm Prophylaxis ordered?: Yes Objective: GENERAL: cooperative HEENT: Atraumatic; EYES; Anicteric, Normal Conjunctiva NECK; supple, normal thyroid, RESPIRATORY: Diminished to auscultation CARDIOVASCULAR: Regular S1 S2, GI: soft, normoactive bowel sounds, : No Renal angle tenderness; EXTREMITIES: No edema, no clubbing, MUSCULOSKELETAL: no muscle waisting NEURO: Awake; no lateralizing signs. SKIN: No Rash PSYCH; Flat affect - Physical Exam Vitals/I&O's: Vital Signs Temp Pulse Resp BP Pulse Ox 98.9 F 90 18 150/100 H 97 12/14/19 11:48 12/14/19 12:45 12/14/19 12:45 12/14/19 12:45 12/14/19 12:45 Oxygen Delivery Method Room Air Weight: 84 kg Body Mass Index (BMI) 26.5 Finger Stick Blood Glucose 153 Intake and Output for Last 24 Hours 12/12/19 12/13/19 12/14/19 23:59 23:59 23:59 Intake Total 1010 / 1010 Balance 1010 / 1010 Laboratory Results 12/14/19 12:00: WBC 9.4, RBC 5.22, Hgb 16.9 H, Hct 47.9, MCV 91.8, MCH 32.4 H, MCHC 35.3, RDW Std Deviation 52.2 H, RDW Coeff of Wilma 15.5 H, Plt Count 250, MPV 9.0, Immature Gran % (Auto) 0.400, Neut % (Auto) 76.9 H, Lymph % (Auto) 11.7 L, [place] % (Auto) 10.5 H, Eos % (Auto) 0.3, Baso % (Auto) 0.2, Absolute Neuts (auto) 7.2, Absolute Lymphs (auto) 1.10, Nucleated RBC % 0 12/14/19 12:00: Sodium 134 L, Potassium 4.2, Chloride 101, Carbon Dioxide 23.0, Anion Gap 10, BUN 3 L, Creatinine 0.57 L, Estim Creat Clear Calc 163.65, Est GFR (MDRD) Af Amer 196, Est GFR (MDRD) Non-Af 162, BUN/Creatinine Ratio 5.3 L, Glucose 107 H, Calcium 9.8, Total Bilirubin 1.40 H, AST 39 H, ALT 35, Alkaline Phosphatase 95, Troponin I < 0.015, Total Protein 7.7, Albumin 3.9, Globulin 3.8, Albumin/Globulin Ratio 1.0, Lipase 71 L 12/14/19 12:00: Ethyl Alcohol < 3.0 12/14/19 12:00: Lactic Acid 1.4 Assessment/Plan All Active Problems (Last Reviewed 11/24/19 @ 09:24 by Vimal Devine) Alcohol withdrawal (Acute) Patient is a 49-year-old gentleman with history of chronic alcohol use presented with acute alcohol withdrawal 1. Chronic alcohol use -Patient presented with acute alcohol withdrawal admitted to regular nursing floor where patient is being managed with alcohol withdrawal protocol using p henobarbital 2. Seizure disorder ?Per history 3. COPD ?Currently not in exacerbation 4. Tobacco dependence -counseled on cessation 5. DVT prophylaxis - Low risk did encourage early ambulation Inpatient E&M: 61517 Init Hosp L2
[2019-12-14 14:46] VITALS: BMI 25.8
[2019-12-14 14:56] VITALS: BP 150/96; PULSE 104; RESP 16; TEMP 36.8; O2SAT 98
[2019-12-14 14:59] VITALS: BMI 25.8
[2019-12-14] MEDS: Phenobarbital 32.4 MG Tablet PO ×3 (15:04→22:22)
[2019-12-14] MEDS: Lactated Ringers 1,000 ML 125 ML IV (15:04)
[2019-12-14 15:09] LABS: International Normalized Ratio 1.1; Prothrombin Time (Protime)PT. 13.5 SECONDS (11.7-14.9)
[2019-12-14 15:35] LABS: Alcohol, Blood (Medical)-Serum < 3.0 mg/dL
[2019-12-14 22:12] VITALS: BP 138/83; PULSE 95; RESP 20; TEMP 36.6; O2SAT 98
[2019-12-14] MEDS: hydrOXYzine PAM 25 MG Capsule 50 MG PO (22:22)
[2019-12-14] MEDS: Ibuprofen 600 MG Tablet PO (22:22)
[2019-12-14] MEDS: traZODone 100 MG Tablet PO (22:22)
[2019-12-14] MEDS: Dicyclomine 10 MG Capsule 20 MG PO (22:22)
[2019-12-15 03:00] VITALS: BP 121/72; PULSE 75; RESP 18; TEMP 36.6; O2SAT 97
[2019-12-15] MEDS: Phenobarbital 32.4 MG Tablet PO ×6 (03:03→22:57)
[2019-12-15 06:10] VITALS: BP 124/99; PULSE 104; RESP 18; TEMP 36.4; O2SAT 97
[2019-12-15] MEDS: hydrOXYzine PAM 25 MG Capsule 50 MG PO ×2 (06:18→14:36)
[2019-12-15] MEDS: Thiamine Hydrochloride 100 MG Tablet PO (08:14)
[2019-12-15] MEDS: Folic Acid 1 MG Tablet PO (08:14)
--- NOTE | 2019-12-15 09:16 | CASEMGMT ---
Social Work Note Pt is listed as RAMP pt. MERARI placed a call to Ariella at [facility] ([phone]) and updated her that pt will need to be seen. Ariella states that Rafiq will be in to see pt today. Serina Subramanian CONCRETE FLOAT MAKER, GARNETT MACHINE OPERATOR HELPER
--- NOTE | 2019-12-15 09:18 | PN_ITS ---
Reason for Visit: Follow-up on acute alcohol withdrawal Subjective: Patient was seen and examined. Denied any new complaints. No acute events overnight. CIWA score this morning was 3. Vitals/I&O's: Vital Signs Temp Pulse Resp BP Pulse Ox 97.6 F L 104 H 18 124/99 H 97 12/15/19 06:10 12/15/19 06:10 12/15/19 06:10 12/15/19 06:10 12/15/19 06:10 Oxygen Delivery Method Room Air Weight: 81.647 kg Body Mass Index (BMI) 25.8 Finger Stick Blood Glucose 153 Intake and Output for Last 24 Hours 12/13/19 12/14/19 12/15/19 23:59 23:59 23:59 Intake Total 3010 / 3630 1020 / 1020 Balance 3010 / 3630 1020 / 1020 General: Alert, Oriented x3, Cooperative HEENT: Atraumatic, PERRLA, EOMI, Normocephalic Oral: Moist Mucosa Neck: Supple Lungs: Clear to auscultation, Normal air movement Cardiovascular: Regular rate, Regular Rhythm, Normal S1, Normal S2, No murmurs Abdomen: Bowel Sounds Present, Soft, Non Tender, Non-Distended, No Hepato- splenomegaly Extremities: No edema Skin: No rashes, No breakdown Musculoskeletal: No Tenderness to Palpation of Joints or Extremities Lymphatic: No Cervical, Supraclavicular, or Inguinal Adenopathy Neurological: Cranial nerves II-XII grossly intact, Neuro grossly intact Psych/Mental Status: Normal Affect, Appropriate Laboratory Results 12/14/19 12:00: WBC 9.4, RBC 5.22, Hgb 16.9 H, Hct 47.9, MCV 91.8, MCH 32.4 H, MCHC 35.3, RDW Std Deviation 52.2 H, RDW Coeff of Wilma 15.5 H, Plt Count 250, MPV 9.0, Immature Gran % (Auto) 0.400, Neut % (Auto) 76.9 H, Lymph % (Auto) 11.7 L, [place] % (Auto) 10.5 H, Eos % (Auto) 0.3, Baso % (Auto) 0.2, Absolute Neuts (auto) 7.2, Absolute Lymphs (auto) 1.10, Nucleated RBC % 0 12/14/19 12:00: Sodium 134 L, Potassium 4.2, Chloride 101, Carbon Dioxide 23.0, Anion Gap 10, BUN 3 L, Creatinine 0.57 L, Estim Creat Clear Calc 163.65, Est GFR (MDRD) Af Amer 196, Est GFR (MDRD) Non-Af 162, BUN/Creatinine Ratio 5.3 L, Glucose 107 H, Calcium 9.8, Total Bilirubin 1.40 H, AST 39 H, ALT 35, Alkaline Phosphatase 95, Troponin I < 0.015, Total Protein 7.7, Albumin 3.9, Globulin 3.8, Albumin/Globulin Ratio 1.0, Lipase 71 L 12/14/19 12:00: Ethyl Alcohol < 3.0 12/14/19 12:00: Lactic Acid 1.4 12/14/19 14:42: PT 13.5, INR 1.1 12/14/19 14:42: Ethyl Alcohol < 3.0 Current Medications Acetaminophen (Tylenol) 500 mg PO Q4H PRN PRN PRN Reason: Temp > 100.4 F Bisacodyl (Dulcolax) 10 mg RECTAL DAILY PRN PRN Reason: Constipation Dicyclomine HCl (Bentyl) 20 mg PO Q6H PRN PRN PRN Reason: abdominal discomfort Last Admin: 12/14/19 22:22 Dose: 20 mg Documented by: Folic Acid (Folic Acid) 1 mg PO DAILY@0800 [facility] Last Admin: 12/15/19 08:14 Dose: 1 mg Documented by: Gabapentin (Neurontin) 300 mg PO Q8H PRN PRN PRN Reason: moderate to severe anxiety Hydroxyzine Pamoate (Vistaril Pamoate Capsule) 50 mg PO Q4H PRN PRN PRN Reason: mild anxiety Last Admin: 12/15/19 06:18 Dose: 50 mg Documented by: Ibuprofen (Motrin) 600 mg PO Q8H PRN PRN PRN Reason: Pain Score 1-10/10 Last Admin: 12/14/19 22:22 Dose: 600 mg Documented by: Loperamide HCl (Imodium) 2 mg PO Q4H PRN PRN PRN Reason: LOOSE STOOLS Nicotine (Nicoderm Cq (Pbkc)) 21 mg TRANSDERM. DAILY [facility] Last Admin: 12/14/19 16:31 Dose: 21 mg Documented by: Ondansetron HCl (Zofran) 8 mg PO Q8H PRN PRN PRN Reason: NAUSEA Phenobarbital (Phenobarbital) 97.2 mg PO Q4H [facility]; Taper Stop: 12/18/19 19:59 Last Admin: 12/15/19 06:18 Dose: 97.2 mg Documented by: Senna (Senokot) 2 tablet PO QHS PRN PRN Reason: Constipation Sodium Chloride () 10 - 40 ml IV UD PRN PRN Reason: SALINE FLUSH Thiamine HCl (Vitamin B1) 100 mg PO DAILYCM [facility] Last Admin: 12/15/19 08:14 Dose: 100 mg Documented by: Trazodone HCl (Desyrel) 100 mg PO QHS PRN PRN Reason: INSOMNIA Last Admin: 12/14/19 22:22 Dose: 100 mg Documented by: STROKE Vital Signs/Narrative: Vital Signs Temp Pulse Resp BP Pulse Ox 12/15/19 06:10 97.6 F L 104 H 18 124/99 H 97 Medical Necessity - Tobacco Use Smoking Status: Current every day smoker Assessment/Plan All Active Problems (Last Reviewed 11/24/19 @ 09:24 by Vimal Devine) Alcohol withdrawal (Acute) 1. Acute alcohol withdrawal, history of chronic alcohol use disorder Improving, on phenobarbital, continue on alcohol withdrawal protocol Continue thiamine and folic acid 2. Nicotine dependence, on replacement 3. COPD, not in acute exacerbation, not on oxygen 4. Reported seizure disorder, not on continue epilepsies, Will continue to monitor 5. DVT prophylaxis with early ambulation Inpatient E&M: 17149 Subs Hosp L2
[2019-12-15 10:17] VITALS: BP 136/91; PULSE 95; RESP 18; TEMP 36.8; O2SAT 96
--- NOTE | 2019-12-15 11:35 | CASEMGMT ---
Social Work Note SW received call from Rafiq at [facility] stating she will be at [facility] today to see pt. Serina Subramanian SEM MANAGER, ELECTRIC ACCOUNTING MACHINE OPERATOR
[2019-12-15 14:28] VITALS: BP 146/94; PULSE 91; RESP 18; TEMP 36.8; O2SAT 98
[2019-12-15 16:32] LABS: Amphetamine Urine VISTA NEGATIVE (<1000 ng/mL); Barbiturate Urine VISTA POSITIVE (< 200 ng/mL); Benzodiazepine Urine VISTA NEGATIVE (< 200 ng/mL); Cocaine Urine VISTA NEGATIVE (< 300 ng/mL); Ecstacy Urine VISTA NEGATIVE (< 500 ng/mL); Methadone Urine VISTA NEGATIVE (< 300 ng/mL); PCP Urine VISTA NEGATIVE (< 25 ng/mL); THC Urine VISTA NEGATIVE (< 50 ng/mL); Vista UDS pH Range 7
[2019-12-15 18:37] VITALS: BP 155/98; PULSE 98; RESP 18; TEMP 36.9; O2SAT 97
[2019-12-15] MEDS: Dicyclomine 10 MG Capsule 20 MG PO (20:00)
[2019-12-15 21:00] VITALS: BP 133/81; PULSE 101; RESP 16; TEMP 37.2; O2SAT 99
[2019-12-15] MEDS: traZODone 100 MG Tablet PO (22:57)
[2019-12-16] MEDS: Dicyclomine 10 MG Capsule 20 MG PO ×3 (00:07→11:21)
[2019-12-16 03:00] VITALS: BP 116/80; PULSE 96; RESP 16; TEMP 37.2; O2SAT 99
[2019-12-16] MEDS: Phenobarbital 32.4 MG Tablet PO ×6 (03:38→21:02)
[2019-12-16] MEDS: Ibuprofen 600 MG Tablet PO (03:40)
[2019-12-16] MEDS: Mag Hydrox/Al Hydrox/Simeth 30 ML UDC PO ×3 (04:32→20:34)
[2019-12-16 08:31] VITALS: BP 135/98; PULSE 98; RESP 18; TEMP 36.5; O2SAT 98
[2019-12-16] MEDS: Folic Acid 1 MG Tablet PO (08:36)
[2019-12-16] MEDS: Thiamine Hydrochloride 100 MG Tablet PO (08:36)
--- NOTE | 2019-12-16 09:51 | CASEMGMT ---
Addendum entered by Serina Subramanian 12/16/19 11:13: MERARI received message from Rafiq at [facility] stating she met with pt yesterday and pt refused any discharge plans to be arranged and kept stating that he will call [facility] at discharge if he needs any assistance. Rafiq provided pt with her number and [facility]'s number to pt. Pt refused any appointments to be made. Addendum entered by Serina Subramanian 12/16/19 10:11: MERARI received call from Barbra at [facility] stating she is back to making [facility] visits and states she will check with Rafiq to determine if Rafiq saw pt yesterday or not. Original Note: Social Work Note SW placed a call to Rafiq at [facility] and left message asking for update on pt's discharge plan. MERARI waiting for call back. Serina Subramanian ROLLER TURNER, GREIGE MENDER
--- NOTE | 2019-12-16 13:10 | ADDICTION ---
This life underwriter met with patient in his room to complete ASA assessment and discharge plan. Patient was alert and oriented x4, however, was resistant to speaking with this life underwriter and appeared very guarded. It does not appear that patient shared all relevant information with this life underwriter during this assessment. Patient did not commit to ongoing treatment following discharge and stated that he does not believe that he is dependent on alcohol or needs treatment. He noted his last date of use was 12/14/2019. He reports that he has been ingesting a liter of vodka a day plus 12 beers sometimes. ASAM Dimension1 Acute Intoxication/Withdrawal Potential Patient reports a history of high blood pressure during withdrawal. He reports that his last date of use was 12/14/2019. Dimension2 Biomedical Conditions/Concerns Patient reports ongoing, daily, severe pain in stomach. He does not believe that his excessive alcohol intake has negatively impacted his physical health. He notes that he has barriers to adequate sleep and has drank alcohol to assist him with falling asleep in the past. He reports that he had a seizure a long time ago. Dimension3 Emotional/ Behavioral/ Cognitive Concerns/Conditions Patient was withdrawn during assessment. Patient noted a history of depression dx but did not elaborate on symptoms. Patient was alert and oriented throughout assessment. Dimension4 Readiness to Change Patient does not identify his alcohol use as problematic. Precontemplation stage of change. Patient resistant to ongoing treatment following medical withdrawal management episode of care. Dimension5 Relapse/ Continued Use or Continued Problem Potential Patient reports 32 years of active alcohol use, noting that his use has increased in the past 10 years or so. He did not elaborate on relapse history/treatment history. He rejected treatment recommendation. He reported minimal to no coping skills/relapse prevention skills. Patient is at a high risk of relapse. Dimension6 Recovery/ Living Environment Patient reports limited sober supports and no mutual aid involvement. Patient resistant to ongoing treatment/support for alcohol dependency. Patient actively uses alcohol in his home. Patient is employed, per his report, and is not involved with legal at this time. ASA LOC RECOMMENDATION: 4.0 Medically Managed Intensive Inpatient Services to address potential health concerns related to alcohol/ Medical Withdrawal Management.
[2019-12-16 14:32] VITALS: BP 128/86; PULSE 99; RESP 18; TEMP 36.8; O2SAT 97
--- NOTE | 2019-12-16 15:18 | PCM.PN.HOSP ---
Reason for Visit: Follow-up on acute alcohol withdrawal Subjective: Patient was seen and examined. He complains of mild epigastric discomfort, improved with mylanta. His CIWA score has been 0. Objective: Physical exam: General: Alert, Oriented x3, Cooperative HEENT: Atraumatic, PERRLA, EOMI, Normocephalic Oral: Moist Mucosa Neck: Supple Lungs: Clear to auscultation, Normal air movement Cardiovascular: Regular rate, Regular Rhythm, Normal S1, Normal S2, No murmurs Abdomen: Bowel Sounds Present, Soft, Non Tender, Non-Distended, No Hepato-splenomegaly Extremities: No edema Skin: No rashes, No breakdown Musculoskeletal: No Tenderness to Palpation of Joints or Extremities Lymphatic: No Cervical, Supraclavicular, or Inguinal Adenopathy Neurological: Cranial nerves II-XII grossly intact, Neuro grossly intact Psych/Mental Status: Normal Affect, Appropriate Vitals/I&O's: Vital Signs Temp Pulse Resp BP Pulse Ox 97.7 F L 98 18 135/98 H 98 12/16/19 08:31 12/16/19 08:31 12/16/19 08:31 12/16/19 08:31 12/16/19 08:31 Oxygen Delivery Method Room Air Weight: 81.647 kg Body Mass Index (BMI) 25.8 Finger Stick Blood Glucose 153 Intake and Output for Last 24 Hours 12/14/19 12/15/19 12/16/19 23:59 23:59 23:59 Intake Total 3010 / 3630 1020 / 1020 Balance 3010 / 3630 1020 / 1020 Laboratory Results 12/15/19 15:00: Urine Opiates Screen NEGATIVE, Urine Methadone Screen NEGATIVE, Ur Barbiturates Screen POSITIVE H, Ur Phencyclidine Scrn NEGATIVE, Ur Amphetamines Screen NEGATIVE, U Methamphetamin-MDMA NEGATIVE, U Benzodiazepines Scrn NEGATIVE, Urine Cocaine Screen NEGATIVE, U Cannabinoids Screen NEGATIVE, Ur Drug Screen Comment Current Medications Acetaminophen (Tylenol) 500 mg PO Q4H PRN PRN PRN Reason: Temp > 100.4 F Al Hydroxide/Mg Hydroxide (Mylanta Ii) 30 ml PO Q6H PRN PRN PRN Reason: INDIGESTION Last Admin: 12/16/19 14:28 Dose: 30 ml Documented by: Bisacodyl (Dulcolax) 10 mg RECTAL DAILY PRN PRN Reason: Constipation Dicyclomine HCl (Bentyl) 20 mg PO Q6H PRN PRN PRN Reason: abdominal discomfort Last Admin: 12/16/19 11:21 Dose: 20 mg Documented by: Folic Acid (Folic Acid) 1 mg PO DAILY@0800 [facility] Last Admin: 12/16/19 08:36 Dose: 1 mg Documented by: Gabapentin (Neurontin) 300 mg PO Q8H PRN PRN PRN Reason: moderate to severe anxiety Hydroxyzine Pamoate (Vistaril Pamoate Capsule) 50 mg PO Q4H PRN PRN PRN Reason: mild anxiety Last Admin: 12/15/19 14:36 Dose: 50 mg Documented by: Ibuprofen (Motrin) 600 mg PO Q8H PRN PRN PRN Reason: Pain Score 1-10/10 Last Admin: 12/16/19 03:40 Dose: 600 mg Documented by: Loperamide HCl (Imodium) 2 mg PO Q4H PRN PRN PRN Reason: LOOSE STOOLS Nicotine (Nicoderm Cq (Pbkc)) 21 mg TRANSDERM. DAILY [facility] Last Admin: 12/16/19 08:36 Dose: 21 mg Documented by: Ondansetron HCl (Zofran) 8 mg PO Q8H PRN PRN PRN Reason: NAUSEA Phenobarbital (Phenobarbital) 64.8 mg PO Q4H [facility]; Taper Stop: 12/18/19 19:59 Last Admin: 12/16/19 14:31 Dose: 64.8 mg Documented by: Senna (Senokot) 2 tablet PO QHS PRN PRN Reason: Constipation Sodium Chloride () 10 - 40 ml IV UD PRN PRN Reason: SALINE FLUSH [facility]) [facility] Last Admin: 12/16/19 08:36 Dose: 100 mg Documented by: Trazodone HCl (Desyrel) 100 mg PO QHS PRN PRN Reason: INSOMNIA Last Admin: 12/15/19 22:57 Dose: 100 mg Documented by: Medical Necessity - Tobacco Use Smoking Status: Current every day smoker Assessment/Plan All Active Problems (Last Reviewed 11/24/19 @ 09:24 by Vimal Devine) Alcohol withdrawal (Acute) 1. Acute alcohol withdrawal, history of chronic alcohol use disorder Improving, on phenobarbital, continue on alcohol withdrawal protocol Continue thiamine and folic acid 2. Nicotine dependence, on replacement 3. COPD, not in acute exacerbation, not on oxygen 4. Reported seizure disorder, not on continue epilepsies, Will continue to monitor 5. DVT prophylaxis with early ambulation Inpatient E&M: 68911 Subs Hosp L2
[2019-12-16 20:01] VITALS: BP 144/99; PULSE 95; RESP 16; TEMP 37.1; O2SAT 100
[2019-12-16] MEDS: Pantoprazole Sodium 40 MG Tablet PO (21:02)
[2019-12-16] MEDS: traZODone 100 MG Tablet PO (21:02)
[2019-12-17 02:07] VITALS: BP 132/96; PULSE 91; RESP 16; TEMP 36.6; O2SAT 98
[2019-12-17] MEDS: Mag Hydrox/Al Hydrox/Simeth 30 ML UDC PO ×2 (03:32→11:35)
[2019-12-17] MEDS: Phenobarbital 32.4 MG Tablet PO ×4 (03:32→22:00)
[2019-12-17 07:31] VITALS: BP 144/97; PULSE 88; RESP 16; TEMP 36.8; O2SAT 100
[2019-12-17] MEDS: Thiamine Hydrochloride 100 MG Tablet PO (07:42)
[2019-12-17] MEDS: Folic Acid 1 MG Tablet PO (07:42)
--- NOTE | 2019-12-17 07:52 | CT_ITS ---
STUDY: CT ABDOMEN AND PELVIS WITH CONTRAST REASON FOR EXAM: Male, 49 years old. EPIGASTRIC PAIN -- ADMITTED FOR ALCOHOL WITHDRAWAL -- SURG-GB RADIATION DOSAGE (If Supplied By Facility): CTDIvol = ( 16.53 ) mGy, DLP = ( 1011.34 ) mGycm TECHNIQUE: Transaxial images were obtained from the dome of the diaphragm to the symphysis pubis with oral contrast. Oral and amp; IV Gastrografin and amp; 100mL Isovue-300 was administered. Sagittal and coronal images were reconstructed. Individualized dose optimization techniques were used for this CT. COMPARISON: Comparison is made with prior examination dated September 17, 2017. FINDINGS: Stable 1.1 cm bleb in the medial aspect of the left lower lobe. The visualized portions of the heart are within normal limits. Minimally dilated central intrahepatic biliary ducts. There are surgical clips in the gallbladder fossa consistent with a prior cholecystectomy. Normal spleen. Normal pancreas. Normal bilateral adrenal glands. Normal right kidney. Normal left kidney. Retroaortic left renal vein. Normal visualized stomach. Normal small intestine. There are multiple colonic diverticula consistent with diverticulosis. Moderate amount of fecal material is seen in the colon. The appendix is visualized and appears normal. There is diffuse atherosclerotic calcification of the abdominal aorta, without a demonstrated aneurysm. Normal inferior vena cava. Normal retroperitoneum. Normal urinary bladder. Normal abdominal wall. Disc space narrowing and spondylosis at the L5-S1 level. CT/Abdomen/Pelvis WITH Contrast IMPRESSION: Sigmoid diverticulosis. Status post cholecystectomy with mildly dilated central intrahepatic biliary ducts. Electronically Signed: Dale Flores, at 10:36 EDT , Service support ,
[2019-12-17] MEDS: Pantoprazole Sodium 40 MG Tablet PO ×2 (11:01→22:00)
--- NOTE | 2019-12-17 13:51 | CASEMGMT ---
Social Work Note SW asked to speak to pt regarding follow up plans for substance abuse at discharge. SW in to speak with pt. SW introduced self and role at [facility]. Pt is alert and orientated x3. Pt states I haven't decided what I am doing at discharge in regards to going to counseling. SW informed pt that he doesn't have to go to [facility] but that he can go to any agency for counseling. Pt again states I haven't decided what I am going to do. SW informed pt that this worker could make an appointment for him, pt denied. Pt then states I need a slip stating I can return to work at discharge. SW informed pt that RN can get slip for pt. SW updated physician that pt is refusing any follow up discharge plans at this time, stating he doesn't know what he wants to do at discharge. Physician, MERARI and Charge Nurse in to speak with pt. Pt now agreeable to going to [facility] at discharge. Pt agreeable to this worker making an appointment at [facility]. Pt signed release of information and placed on pt's chart. MERARI placed a call to [facility] and spoke with Vimal. MERARI scheduled intake appointment for pt December 19, 2019 at 2:30pm. Vimal states the traffic control specialist will call pt at 2:30pm to confirm demographics, insurance, etc. The counselor Flori then will call pt at around 3:00pm to complete intake assessments. All assessments/sessions are being held via telehealth at this time. MERARI in to speak with pt and updated pt on intake appointment on Sunday. SW provided pt with paper copy of appointment. Pt then asked if he could discharge today instead of tomorrow. SW informed pt that this worker would ask physician. SW updated physician that pt is requesting to discharge today. Plan: Pt has intake appointment scheduled with [facility] SundayDecember 18 at 2:30pm. Serina Subramanian ADDRESSER, TRANSIT POLICE OFFICER
--- NOTE | 2019-12-17 14:04 | DCINST_ITS ---
- Discharge Diagnoses Reason(s) for Visit for Discharge Instructions: Acute alcohol withdrawal You will use the following diet at home:: Regular Your food should be the consistency of: Regular Your liquids should be the consistency of: Regular/Thin Discharge Activity: Return to Normal Activity Allergies/Adverse Reactions: Allergies acetaminophen [From Vicodin] Adverse Reaction (Verified 12/14/19 11:52) Other PT IS NOT ALLERGIC TO TYLENOL hydrocodone bitartrate [From Vicodin] Adverse Reaction (Verified 12/14/19 11:52) Other NIGHTMARES Medications to take at Discharge NK 11/24/19 Primary Care Physician: Miguel Galo MD [Primary Care Provider] - Please follow up with your Primary Care Physician in: within 1-2 weeks Test Results: Test results from this visit will be discussed in further detail at your follow- up appointment, if applicable. Proposed Discharge Date: 12/17/19
--- NOTE | 2019-12-17 14:05 | DS.PCM_ITS ---
Discharge Date and Diagnosis Date of Admission: 12/14/19 Date of Discharge: 12/18/19 - Primary Discharge Diagnosis Acute alcohol withdrawal Alcoholic gastritis Nicotine dependence - Secondary Discharge Diagnosis Chronic Problems (Last Reviewed 11/24/19 @ 09:24 by Vimal Devine) GERD (gastroesophageal reflux disease) (Chronic) COPD (chronic obstructive pulmonary disease) (Chronic) Alcohol abuse (Chronic) Seizure disorder (Chronic) Tobacco abuse (Chronic) Benign essential hypertension (Chronic) Hospital Course and Treatment Imaging Results: 12/17/19 07:52 Abdomen/Pelvis WITH Contrast [CT] Routine None Operations: None Procedures: None Summary of Care Provided: The patient is a 49 year old M with past medical history of chronic alcohol abuse who comes in for medical stabilization for alcohol withdrawal. Patient admits to drinking 1 bottle of vodka interchangeable with 16 cans of beer daily. He was admitted to the [facility] floor and started on the phenobarb protocol. Patient had complained of abdominal discomfort throughout his hospital stay. It improved with Mylanta and PPI. CT scan of the abdomen and pelvis showed sigmoid diverticulosis but no acute abnormality. Patient completed his phenobarb taper. He was discharged home with a one-month supply of PPI and 1 bottle of Mylanta. Patient will follow-up with 180 in the outpatient. Subjective: On Objective: Physical exam: General: Alert, Oriented x3, Cooperative HEENT: Atraumatic, PERRLA, EOMI, Normocephalic Oral: Moist Mucosa Neck: Supple Lungs: Clear to auscultation, Normal air movement Cardiovascular: Regular rate, Regular Rhythm, Normal S1, Normal S2, No murmurs Abdomen: Bowel Sounds Present, Soft, Non Tender, Non-Distended, No Hepato- splenomegaly Extremities: No edema Skin: No rashes, No breakdown Musculoskeletal: No Tenderness to Palpation of Joints or Extremities Lymphatic: No Cervical, Supraclavicular, or Inguinal Adenopathy Neurological: Cranial nerves II-XII grossly intact, Neuro grossly intact Psych/Mental Status: Normal Affect, Appropriate - Physical Exam Vitals/I&O's: Vital Signs Temp Pulse Resp BP Pulse Ox 98.3 F 88 16 144/97 H 100 12/17/19 07:31 12/17/19 07:31 12/17/19 07:31 12/17/19 07:31 12/17/19 07:31 Oxygen Delivery Method Room Air Weight: 81.647 kg Body Mass Index (BMI) 25.8 Finger Stick Blood Glucose 153 Intake and Output for Last 24 Hours 12/15/19 12/16/19 12/17/19 23:59 23:59 23:59 Intake Total 1020 / 1020 Balance 1020 / 1020 Current Medications Acetaminophen (Tylenol) 500 mg PO Q4H PRN PRN PRN Reason: Temp > 100.4 F Al Hydroxide/Mg Hydroxide (Mylanta Ii) 30 ml PO Q6H PRN PRN PRN Reason: INDIGESTION Last Admin: 12/17/19 11:35 Dose: 30 ml Documented by: Bisacodyl (Dulcolax) 10 mg RECTAL DAILY PRN PRN Reason: Constipation Dicyclomine HCl (Bentyl) 20 mg PO Q6H PRN PRN PRN Reason: abdominal discomfort Last Admin: 12/16/19 11:21 Dose: 20 mg Documented by: Folic Acid (Folic Acid) 1 mg PO DAILY@0800 [facility] Last Admin: 12/17/19 07:42 Dose: 1 mg Documented by: Gabapentin (Neurontin) 300 mg PO Q8H PRN PRN PRN Reason: moderate to severe anxiety Hydroxyzine Pamoate (Vistaril Pamoate Capsule) 50 mg PO Q4H PRN PRN PRN Reason: mild anxiety Last Admin: 12/15/19 14:36 Dose: 50 mg Documented by: Ibuprofen (Motrin) 600 mg PO Q8H PRN PRN PRN Reason: Pain Score 1-10/10 Last Admin: 12/16/19 03:40 Dose: 600 mg Documented by: Loperamide HCl (Imodium) 2 mg PO Q4H PRN PRN PRN Reason: LOOSE STOOLS Nicotine (Nicoderm Cq (Pbkc)) 21 mg TRANSDERM. DAILY [facility] Last Admin: 12/17/19 10:54 Dose: 21 mg Documented by: Ondansetron HCl (Zofran) 8 mg PO Q8H PRN PRN PRN Reason: NAUSEA Pantoprazole Sodium (Protonix) 40 mg PO BID [facility] Last Admin: 12/17/19 11:01 Dose: 40 mg Documented by: Phenobarbital (Phenobarbital) 64.8 mg PO Q6H [facility]; Taper Stop: 12/18/19 19:59 Last Admin: 12/17/19 11:01 Dose: 64.8 mg Documented by: Senna (Senokot) 2 tablet PO QHS PRN PRN Reason: Constipation Sodium Chloride () 10 - 40 ml IV UD PRN PRN Reason: SALINE FLUSH Thiamine HCl (Vitamin B1) 100 mg PO DAILY[facility] Last Admin: 12/17/19 07:42 Dose: 100 mg Documented by: Trazodone HCl (Desyrel) 100 mg PO QHS PRN PRN Reason: INSOMNIA Last Admin: 12/16/19 21:02 Dose: 100 mg Documented by: Discharge Diet: No Restrictions Discharge Activity: Return to Normal Activity Home Medications: Medications to take at Discharge Mag Hydrox/Al Hydrox/Simeth [Mylanta II] 30 ml PO TID PRN PRN 7 Days #1 bottle 12/18/19 Pantoprazole Sodium [Protonix] 40 mg PO BID 30 Days #60 tab 12/18/19 Following Prescrptions Were Given to Patient: Mag Hydrox/Al Hydrox/Simeth [Mylanta II] 30 ml PO TID PRN PRN 7 Days #1 bottle PRN Reason: Dyspepsia Transmission Status: Received by [facility] #30 Pantoprazole Sodium [Protonix] 40 mg PO BID 30 Days #60 tab Transmission Status: Received by [facility]30 Primary Care Physician: Miguel Galo MD [Primary Care Provider] - Please follow up with your Primary Care Physician in: within 1-2 weeks Disposition: Home Minutes spent on discharge:: 25 Patient Condition:: Stable Medical Necessity - Tobacco Use Smoking Status: Current every day smoker Tobacco Use: Cigarettes Meaningful Use Info Meaningful Use Diagnoses (Choose all that apply): None applicable Inpatient E&M: 94397 Disch Hosp
--- NOTE | 2019-12-17 14:42 | CHAPLAIN ---
Type of Pastoral Visit _x__ Initial Visit ___ Follow-up Visit ___ On-call Visit ___ General Patient Visit ___ Spiritual Assessment ___ Family Conference ___ Bereavement ___ Rapid Response ___ Code Blue ___ Other (describe below) Pastoral Care Referral From _x__ Patient ___ Family ___ Nurse ___ Physician ___ Director Investment Banking ___ Shaper Hand ___ Other (describe below) Sacrament/Intervention ___ Active listening ___ Anointing ___ Yazdanism ___ Bereavement ___ Communion ___ Yomaira exploration ___ ___ Life review _x__ Prayer ___ Reconciliation ___ Sacrament of Sick _x__ Supportive presence ___ Wedding ___ Other (describe below) Pastoral Comments patient sitting in his chair and states he is waiting to be discharged; offered support and pt said that honey grader and blender could say a prayer for him; upon asking pt about his plan after discharge the pt stated that he has an appointment for Sunday; pt says he has no other needs at this time
--- NOTE | 2019-12-17 14:47 | CASEMGMT ---
Social Work Note Barbra with [facility] in to see pt. MERARI updated by Barbra that pt is now requesting to stay as he found out his sunita is in room 302 and wants to stay because he is staying. Pt requesting to speak to this worker. SW in to speak with pt. Pt confirms that he wishes to stay another night. SW informed pt that physician already has discharge in for today so this worker is not sure if pt will be able to stay but will ask physician. Pt states understanding. MERARI updated physician. MERARI received call from physician. Physician states discharge will remain in system but progress note will also be written and pt can decide whether he wants to discharge today or tomorrow. MERARI updated Pt and RN. Serina Subramanian RN APPEALS, COMMERCIAL PEST CONTROL REPRESENTATIVE
--- NOTE | 2019-12-17 15:41 | ADDICTION ---
This aligner typewriter met with patient in his room to process discharge planning, provide support and to introduce patient to [facility] Peer Supporter. Patient was alert/oriented x4 and presented with euthymic mood/affect. He stated that he was planning to leave medical withdrawal management services AMA but found out that his significant other is engaging in medical withdrawal management as well and decided to stay to complete the protocol. [facility] and is scheduled for an initial appointment on 12/19/2019 at 12pm. He reported that he is willing to engage in ongoing services with [facility] following his initial appointment. Patient was given intake paperwork to complete in [facility] LOC: 4.0 Medically Managed Intensive Inpatient Services Dimension1: Acute Intoxication and/or Withdrawal Potential Patient reports no current intoxication and notes his last date of use as 12/14/2019. He is currently engaged in medical withdrawal management and is receiving Phenobarbital, per his report, to assist with withdrawal symptoms. He reports a history of shakiness, dizziness, nausea, agitation, body aches during withdrawal. He will likely experience severe withdrawal symptoms if he does not complete medical withdrawal management. Dimension2: Biomedical Conditions and Complications Patient reports no BMC/C at this time. He reports a history of severe stomach pain- patient did not identify the potential linkage to his alcohol use and physical health problems. He notes that he has barriers to adequate sleep and has drank alcohol to assist him with falling asleep in the past. He reports that he had a seizure a long time ago. Dimension3: Emotional, Behavioral or Cognitive Conditions and Complications Patient was alert and oriented x4, presented with euthymic mood and participated appropriately throughout meeting. He reported a history of depression symptoms but did not note current MH symptoms. Dimension4: Readiness to Change Patient appears to be in the contemplation stage of change as evidenced by his identification of problem behaviors with limited internal motivation to change behaviors. He appears to be basing his recovery on the recovery of his partner. He reported willingness to engage in treatment and is scheduled following hospital stay. Dimension5: Relapse, Continued Use or Continued Problem Potential Patient is at a high risk of relapse based on length of use, amount of use and motivating factors for use including my partner drinking and boredom. He does not appear to have appropraite coping skills/relapse prevention skills. He will liekly experience relapse if he does not follow through with ongoing AOD treatment. Dimension6: Recovery/Living Environment Patient reports that he lives independently, with his partner, in [place]. Partner is also engaged in medical withdrawal management at this time. He reports prior use of alcohol in the home. He reports that his primary support people actively use alcohol. He reports resistance to mutual aid meetings and does not currently have a sponsor. He is willing to work with [facility] Peer Support.
[2019-12-17 16:01] VITALS: BP 130/76; PULSE 91; RESP 16; TEMP 36.8; O2SAT 99
--- NOTE | 2019-12-17 16:55 | PN_ITS ---
Reason for Visit: Follow-up on acute alcohol withdrawal Subjective: Patient was seen and examined. States that his abdominal discomfort is better. CT of abdomen and pelvis shows sigmoid diverticulosis, no acute abnormality. Objective: Physical exam: General: Alert, Oriented x3, Cooperative HEENT: Atraumatic, PERRLA, EOMI, Normocephalic Oral: Moist Mucosa Neck: Supple Lungs: Clear to auscultation, Normal air movement Cardiovascular: Regular rate, Regular Rhythm, Normal S1, Normal S2, No murmurs Abdomen: Bowel Sounds Present, Soft, Non Tender, Non-Distended, No Hepato- splenomegaly Extremities: No edema Skin: No rashes, No breakdown Musculoskeletal: No Tenderness to Palpation of Joints or Extremities Lymphatic: No Cervical, Supraclavicular, or Inguinal Adenopathy Neurological: Cranial nerves II-XII grossly intact, Neuro grossly intact Psych/Mental Status: Normal Affect, Appropriate Vitals/I&O's: Vital Signs Temp Pulse Resp BP Pulse Ox 98.2 F 91 16 130/76 H 99 12/17/19 16:01 12/17/19 16:01 12/17/19 16:01 12/17/19 16:01 12/17/19 16:01 Oxygen Delivery Method Room Air Weight: 81.647 kg Body Mass Index (BMI) 25.8 Finger Stick Blood Glucose 153 Intake and Output for Last 24 Hours 12/15/19 12/16/19 12/17/19 23:59 23:59 23:59 Intake Total 1020 / 1020 Balance 1020 / 1020 Current Medications Acetaminophen (Tylenol) 500 mg PO Q4H PRN PRN PRN Reason: Temp > 100.4 F Al Hydroxide/Mg Hydroxide (Mylanta Ii) 30 ml PO Q6H PRN PRN PRN Reason: INDIGESTION Last Admin: 12/17/19 11:35 Dose: 30 ml Documented by: Bisacodyl (Dulcolax) 10 mg RECTAL DAILY PRN PRN Reason: Constipation Dicyclomine HCl (Bentyl) 20 mg PO Q6H PRN PRN PRN Reason: abdominal discomfort Last Admin: 12/16/19 11:21 Dose: 20 mg Documented by: Folic Acid (Folic Acid) 1 mg PO DAILY@0800 [facility] Last Admin: 12/17/19 07:42 Dose: 1 mg Documented by: Gabapentin (Neurontin) 300 mg PO Q8H PRN PRN PRN Reason: moderate to severe anxiety Hydroxyzine Pamoate (Vistaril Pamoate Capsule) 50 mg PO Q4H PRN PRN PRN Reason: mild anxiety Last Admin: 12/15/19 14:36 Dose: 50 mg Documented by: Ibuprofen (Motrin) 600 mg PO Q8H PRN PRN PRN Reason: Pain Score 1-10/10 Last Admin: 12/16/19 03:40 Dose: 600 mg Documented by: Loperamide HCl (Imodium) 2 mg PO Q4H PRN PRN PRN Reason: LOOSE STOOLS Nicotine (Nicoderm Cq (Pbkc)) 21 mg TRANSDERM. DAILY [facility] Last Admin: 12/17/19 10:54 Dose: 21 mg Documented by: Ondansetron HCl (Zofran) 8 mg PO Q8H PRN PRN PRN Reason: NAUSEA Pantoprazole Sodium (Protonix) 40 mg PO BID [facility] Last Admin: 12/17/19 11:01 Dose: 40 mg Documented by: Phenobarbital (Phenobarbital) 64.8 mg PO Q6H [facility]; Taper Stop: 12/18/19 19:59 Last Admin: 12/17/19 16:06 Dose: 64.8 mg Documented by: Senna (Senokot) 2 tablet PO QHS PRN PRN Reason: Constipation Sodium Chloride () 10 - 40 ml IV UD PRN PRN Reason: SALINE FLUSH Thiamine [facility] ([facility]) [facility] Last Admin: 12/17/19 07:42 Dose: 100 mg Documented by: Trazodone HCl (Desyrel) 100 mg PO QHS PRN PRN Reason: INSOMNIA Last Admin: 12/16/19 21:02 Dose: 100 mg Documented by: STROKE Vital Signs/Narrative: Vital Signs Temp Pulse Resp BP Pulse Ox 12/17/19 16:01 98.2 F 91 16 130/76 H 99 Medical Necessity - Tobacco Use Smoking Status: Current every day smoker Assessment/Plan All Active Problems (Last Reviewed 11/24/19 @ 09:24 by Vimal Devine) Alcohol withdrawal (Acute) 1. Acute abdominal discomfort likely second alcoholic gastritis Pain improved with Mylanta and PPI 2. Acute alcohol withdrawal, history of chronic alcohol use disorder Improving, on phenobarbital, continue on alcohol withdrawal protocol Continue thiamine and folic acid 3. Nicotine dependence, on replacement 4. COPD, not in acute exacerbation, not on oxygen 5. Reported seizure disorder, not on continue anti-epilepsy medications Will continue to monitor 6. DVT prophylaxis with early ambulation Inpatient E&M: 82324 Subs Hosp L2
--- NOTE | 2019-12-17 20:55 | NURSING ---
Pt is requesting nicotine gum. Advised him that he did not have an order for it but I would contact the MD to obtain an order. Denies any other needs at this time.
[2019-12-17 21:52] VITALS: BP 137/84; PULSE 88; RESP 20; TEMP 36.9; O2SAT 99
[2019-12-17] MEDS: Nicotine Polacrilex 2 MG GUM PO (22:00)
[2019-12-17] MEDS: traZODone 100 MG Tablet PO (23:57)
[2019-12-18] MEDS: Phenobarbital 32.4 MG Tablet PO ×3 (03:34→13:02)
[2019-12-18 03:39] VITALS: BP 136/90; PULSE 99; RESP 18; TEMP 36.3; O2SAT 95
[2019-12-18] MEDS: Nicotine Polacrilex 2 MG GUM PO ×2 (06:51→09:02)
[2019-12-18] MEDS: Folic Acid 1 MG Tablet PO (07:39)
[2019-12-18] MEDS: Thiamine Hydrochloride 100 MG Tablet PO (07:39)
[2019-12-18] MEDS: Ondansetron 8 MG Tablet PO (07:39)
[2019-12-18] MEDS: Pantoprazole Sodium 40 MG Tablet PO (09:00)
[2019-12-18 09:30] VITALS: BP 135/84; PULSE 70; RESP 18; TEMP 37.2; O2SAT 98
--- NOTE | 2019-12-18 09:53 | CASEMGMT ---
Social Work Note MERARI updated by Barbra at [facility] that pt would like his appointment cancelled with [facility] tomorrow. Per [facility]'s notes, pt has an appointment with [facility] tomorrow at 12:00pm Sunday. MERARI placed a call to [facility] and spoke with Vimal and cancelled pt's appointment with [facility] tomorrow. Plan: Pt now has an appointment with [facility] tomorrow at 12:00pm Serina BYRNES, [employer] OFFIC[employer]
--- NOTE | 2019-12-18 09:53 | ADDICTION ---
This policy writer typist met with patient in his room to finalize discharge plans and to update ASAM criteria. Patient was alert, oriented and talking with [facility] Peer Net Development Manager. He presented with euthymic mood and affect and appeared motivated to continue with his recovery journey. He confirmed that he is scheduled for an assessment with Annita on 12/19/2019 and also confirmed that he is engaging with peer support following discharge from [facility]. He reported that he plans to return to his home and that he believes that he will successfully maintain sobriety based on not wanting to drink at all. This policy writer typist confirmed that patient has contact information for this policy writer typist and for peer recovery sales support associate. This policy writer typist confirmed that patient is not willing to engage in Residential treatment at this time. Patient stated that he is willing to engage in Outpatient services and will assess options with primary therapist following assessment. This policy writer typist has updated [facility] manager social work of patient's discharge plans. [facility] LOC: 3.5 Clinically Managed High-Intensity Residential Services- Patient rejected, willing to engage in 1 Outpatient services Dimension1: Acute Intoxication and/or Withdrawal Potential Patient reports no current intoxication and notes his last date of use as 12/14/2019. He reports that he has completed the medical withdrawal management protocol and is feeling really good. He does not appear to be at risk of severe withdrawal at this time. He reports a history of shakiness, dizziness, nausea, agitation, body aches during withdrawal. Patient reports daily use prior to engagement with medical withdrawal management. Dimension2: Biomedical Conditions and Complications Patient reports that his medical concerns are manageable at this time, noting no significant pain or illness. Patient reports access to food and water upon discharge from [facility]. Patient notes that he believes he is in adequate physical health and that he is able to engage in healthy physical activity. He reports prior sleep barriers, but believes that he will be able to maintain an adequate sleep schedule upon discharge from [facility]. Dimension3: Emotional, Behavioral or Cognitive Conditions and Complications Emotional-Patient presented with euthymic mood/affect. He reported no symptoms of depression/anxiety/mood disorder and appears to have adequate coping skills for mental health concerns if they present in the future. Behavioral-Patient reports no barriers with behavioral health. He participated appropriately throughout this session. Cognitive- Patient was alert/oriented and able to identify problem thoughts vs healthy thoughts. Dimension4: Readiness to Change Patient reports internal(desire for health/wellness, desire to identify new normal) and external motivation(significant other) for sobriety. Patient appears to be in the preparation stage of change as evidenced by his identification of problem thoughts/behaviors with plans to modify problem thoughts/behaviors through AoD related services following discharge. Dimension5: Relapse, Continued Use, or Continued Problem Potential Patient effectively identified problem situations and potential triggers. He processed potential problem situations and triggers and identified healthy, appropriate coping skills to use. He reports motivation to engage in ongoing AoD treatment. He is at a high risk of relapse due to history of use/relapse, limited sober support network and focus on external motivations rather than internal motivations. Dimension6: Recovery/Living Environment Patient reports that he lives independently, with his partner, in [facility]. Partner is engaged in medical withdrawal management at this time. He reports prior use of alcohol in the home. He reports that his primary support people actively use alcohol. He reports resistance to mutual aid meetings and does not currently have a sponsor. He is willing to work with [facility] Peer Support. He is scheduled for ongoing treatment with [facility] following discharge from medical withdrawal management services.
[2019-12-18 12:00] VITALS: BP 138/66; PULSE 80; RESP 18; TEMP 37.2; O2SAT 99
[2019-12-18 13:07] VITALS: BP 134/70; PULSE 74; RESP 18; TEMP 37; O2SAT 99
== END 2019-12-18 13:06 | disposition home or self-care (01) | DRG 775 ==
LOC: ED 12:42 → MS3 14:09
PROVIDERS: Admitting Provider Internal Medicine; Emergency Provider Emergency Medicine; PCP Family Medicine; Visit Provider Internal Medicine
DX: F10.239 Alcohol dependence with withdrawal, unspecified (principal); K29.20 Alcoholic gastritis without bleeding; F17.210 Nicotine dependence, cigarettes, uncomplicated; I10 Essential (primary) hypertension; J44.9 Chronic obstructive pulmonary disease, unspecified; K21.9 Gastro-esophageal reflux disease without esophagitis; K57.30 Diverticulosis of large intestine without perforation or abscess without bleeding
CPT/HCPCS: 36415; 71045; 74177; 80053; 80307; 80320; 83605; 83690; 84484; 85025; 85610; 93005; 96361; 96374; 96375; 99285; 99406; J7030; J7120; Q9967; A4216; G0480; J2405; J3490

== ENCOUNTER 2020-05-27 17:31 | Inpatient (IN) | payer MEDICAID, SELFPAY ==
[2020-05-27] VITALS (7 sets, daily range): BP systolic 132–157; BP diastolic 91–103; PULSE 113–134; RESP 16–24; TEMP 36.3–37.3; O2SAT 98–100; BMI 24.0; BMI 23.3; BMI 23.4
--- NOTE | 2020-05-27 17:47 | EKG12_ITS ---
Test Reason : CP Blood Pressure : / mmHG Vent. Rate : 120 BPM Atrial Rate : 120 BPM P-R Int : 120 ms QRS Dur : 078 ms QT Int : 308 ms P-R-T Axes : 072 067 075 degrees QTc Int : 435 ms Sinus tachycardia Otherwise normal ECG Confirmed by HARLEY BONNER, NILESH ([id number]), offline editor AURELIO TALBOT ([id number]) on 06/02/2020 11:02:11 AM Referred By: MEAGHAN Confirmed By:WANDA SOUZA MD
--- NOTE | 2020-05-27 17:50 | ED.VIS.GEN ---
History of Present Illness Chief Complaint: Substance Abuse Informant: Patient Onset: Today Narrative: 50-year-old male with past medical history of alcoholism presents with concern for detox. Patient is requesting detox because he states he has been drinking entirely too much. States he drinks 1.75 L of vodka per day. Did drink some vodka this morning but not a significant amount just enough not to withdrawal. States that he has had seizures before in the past secondary to withdrawal. States his most recent was 1 week ago. Patient also states he is have a smoker. Denies any other con commitment drug abuse. Past Medical History - Allergies and Home Meds Allergies/Adverse Reactions: Allergies hydrocodone bitartrate [From Vicodin] Adverse Reaction (Verified 05/27/20 17:32) Other NIGHTMARES Primary Care Physician: Miguel Galo MD [Primary Care Provider] - Prior records reviewed: Yes Past Medical History: - - HTN Surgical History: cholecystectomy Lives: Alone Smoking Status: Current every day smoker Alcohol: Heavy Drugs: None - Family History Maternal Family History: Reports: Heart Disease, - - Maternal family history of anxiety and depression with suicide associated. Paternal Family History: Reports: - - Paternal family history of GERD, peptic ulcer disease, anxiety and depression with possible also from suicide but unclear. Review of Systems General: Denies: Chills, Fever, Sweats Eyes: Denies: Visual changes - bilaterally, Diplopia ENT: Denies: Rhinorrhea, Sore throat Cardiovascular: Denies: Chest pain, Palpitations Respiratory: Denies: Dyspnea, Cough, Dyspnea on exertion Gastrointestinal: Denies: Abdominal pain, Nausea, Vomiting, Diarrhea, Melena, Hematochezia Genitourinary: Denies: Dysuria, Hematuria, Frequency Musculoskeletal: Denies: Back pain, Extremity Pain Skin: Denies: Rash, Wounds Neurological: Denies: Headache, Weakness, Numbness Physical Exam Vital Signs/Narrative: Vital Signs Temp Pulse Resp BP Pulse Ox 05/27/20 17:32 97.4 F L 134 H 18 132/100 H 100 Inital Vital Signs reviewed: Yes General: Well nourished, Well developed, No Acute Distress Head: Normocephalic, Atraumatic Eyes: Perrl, EOMI ENT: Moist mucous membranes, No rhinorrhea Neck: Supple, Nontender Cardiovascular: Regular rate, Regular rhythm, No murmurs Respiratory: No distress, CTA bilaterally, Chest nontender Abdomen: Soft, Nontender, Nondistended, Normal bowel sounds Back: Nontender, Normal Inspection Extremities: Nontender, No edema Skin: Normal color, No rash Neurological: Alert, Oriented x3, Cranial nerves II-XII grossly intact, Normal Strength, Normal Sensation Psychological: Normal affect, Normal Mood Diagnostic/Tx/Re-eval Laboratory Data 05/27/20 05/27/20 05/27/20 18:00 18:00 18:00 WBC 14.7 H RBC 5.29 Hgb 16.4 Hct 46.8 MCV 88.5 MCH 31.0 MCHC 35.0 RDW Std Deviation 45.2 H RDW Coeff of Wilma 14.5 Plt Count 309 MPV 9.4 Immature Gran % (Auto) 0.500 Neut % (Auto) 78.5 H Lymph % (Auto) 15.5 L [place] % (Auto) 4.8 Eos % (Auto) 0.5 Baso % (Auto) 0.2 Absolute Neuts (auto) 11.5 H Absolute Lymphs (auto) 2.27 Nucleated RBC % 0 Sodium 131 L Potassium 3.3 L Chloride 99 Carbon Dioxide 22.0 Anion Gap 10 BUN 4 L Creatinine 0.79 Estim Creat Clear Calc 116.79 Est GFR (MDRD) Af Amer 134 Est GFR (MDRD) Non-Af 111 BUN/Creatinine Ratio 5.1 L Glucose 112 H Calcium 8.9 Total Bilirubin 1.60 H AST 29 ALT 30 Alkaline Phosphatase 149 H Total Protein 7.8 Albumin 4.1 Globulin 3.7 Albumin/Globulin Ratio 1.1 Urine Opiates Screen Urine Methadone Screen Ur Barbiturates Screen Ur Phencyclidine Scrn Ur Amphetamines Screen U Methamphetamin-MDMA U Benzodiazepines Scrn Urine Cocaine Screen U Cannabinoids Screen Ur Drug Screen Comment Ethyl Alcohol Cancelled 05/27/20 19:00 WBC RBC Hgb Hct MCV MCH MCHC RDW Std Deviation RDW Coeff of Wilma Plt Count MPV Immature Gran % (Auto) Neut % (Auto) Lymph % (Auto) [place] % (Auto) Eos % (Auto) Baso % (Auto) Absolute Neuts (auto) Absolute Lymphs (auto) Nucleated RBC % Sodium Potassium Chloride Carbon Dioxide Anion Gap BUN Creatinine Estim Creat Clear Calc Est GFR (MDRD) Af Amer Est GFR (MDRD) Non-Af BUN/Creatinine Ratio Glucose Calcium Total Bilirubin AST ALT Alkaline Phosphatase Total Protein Albumin Globulin Albumin/Globulin Ratio Urine Opiates Screen NEGATIVE Urine Methadone Screen NEGATIVE Ur Barbiturates Screen NEGATIVE Ur Phencyclidine Scrn NEGATIVE Ur Amphetamines Screen NEGATIVE U Methamphetamin-MDMA NEGATIVE U Benzodiazepines Scrn NEGATIVE Urine Cocaine Screen NEGATIVE U Cannabinoids Screen POSITIVE H Ur Drug Screen Comment Ethyl Alcohol - Rhythm Strip Rhythm Strip: Sinus Tach Rate: 120 Ectopy: None - EKG Initial EKG Interpretation: Sinus Tachycardia - Sinus tachycardia at 120 bpm. NM interval 120 ms. QTC of [address] changes. - Medical Decision Making Patient appears well nontoxic. Tachycardic and hypertensive upon arrival. Was given 1 L of normal saline as well as 1 mg of Ativan IV. Lab work shows nonspecific leukocytosis as well as hyperbilirubinemia. Patient also had a mild hypokalemia which was replaced p.o. Patient will be admitted to hospitalist for detox. Patient stable at time of admission. Impression: 1. Alcohol withdrawl 2. Hypokalemia 3. Tobacco abuse ED Disposition - Plan for ED Patient: Disposition: Acute Care [facility] Referrals: Miguel Galo MD [Primary Care Provider] -
[2020-05-27 18:14] LABS: Absolute Lymphocyte Count 2.27 X10^3/uL (0.83-4.51); Absolute Neutrophil Count 11.5 X10^3/uL (2.0-7.7); Basophil# 0.03 X10^3/uL; Basophil% 0.2 % (0-1); Eosinophil# 0.08 X10^3/uL; Eosinophils% 0.5 % (0-5); Hematocrit 46.8 % (40-54); Hemoglobin 16.4 g/dL (13.0-16.5); Lymphocyte # 2.27 X10^3/ul (4.0); Lymphocyte % 15.5 % (19-41); Mean Corpuscular Volume 88.5 fL (80-94); Mean Platelet Vol. 9.4 fl (6.2-12.0); Monocyte% 4.8 % (0-10); NRBC Flagged by Analyzer 0 % (0-5); Neutrophil # 11.53 X10^3/uL (2.7-7.7); Neutrophil % 78.5 % (47-70); Platelet Count 309 K/mm3 (150-450); RBC Distribution Width CV 14.5 % (11.6-14.6); RBC Distribution Width SD 45.2 fl (35.1-43.9); Red Blood Count 5.29 M/mm3 (4.6-6.2); White Blood Count 14.7 K/mm3 (4.4-11.0)
[2020-05-27] MEDS: 0.9% Normal Saline 1,000 ML 999 ML IV (18:15)
[2020-05-27] MEDS: LORazepam 2 MG/ML Syringe 1 MG IV (18:15)
[2020-05-27 18:45] LABS: ALB/GLOB Ratio 1.1 RATIO (0.9-2.4); AST(SGOT) 29 U/L (15-37); Alanine Aminotransfer ALT/SGPT 30 U/L (16-61); Albumin, Serum 4.1 g/dL (3.2-5.0); Alkaline Phosphatase 149 U/L (45-117); Anion Gap 10 (5-15); BUN 4 mg/dL (7-18); BUN/Creat Ratio 5.1 RATIO (10-20); Calcium,Total 8.9 mg/dL (8.5-10.1); Chloride 99 mmol/L (98-107); Creatinine, Serum 0.79 mg/dL (0.70-1.30); EST Glomerular Filtration Rate 111 mL/min (>60); Est Glom Filt Rate - Afr Amer 134 mL/min (>60); Estimated Creatinine Clearance 116.79 ml/min; Globulin 3.7 g/dL (2.2-4.2); Glucose 112 mg/dL (74-106); Potassium 3.3 mmol/L (3.5-5.1); Protein, Total 7.8 g/dL (6.4-8.2); Sodium Level 131 mmol/L (136-145)
[2020-05-27 20:00] LABS: Amphetamine Urine VISTA NEGATIVE (<1000 ng/mL); Barbiturate Urine VISTA NEGATIVE (< 200 ng/mL); Benzodiazepine Urine VISTA NEGATIVE (< 200 ng/mL); Cocaine Urine VISTA NEGATIVE (< 300 ng/mL); Ecstacy Urine VISTA NEGATIVE (< 500 ng/mL); Methadone Urine VISTA NEGATIVE (< 300 ng/mL); PCP Urine VISTA NEGATIVE (< 25 ng/mL); THC Urine VISTA POSITIVE (< 50 ng/mL); Vista UDS pH Range 6
--- NOTE | 2020-05-27 21:06 | HP.PCM_ITS ---
Problem List (1) Alcohol withdrawal Status: Acute Qualifiers: Complication of substance-induced condition: with unspecified complication Qualified Code(s): F10.239 - Alcohol dependence with withdrawal, unspecified (2) Elevated BP without diagnosis of hypertension Status: Acute (3) Hypokalemia Status: Acute (4) Hyponatremia Status: Chronic (5) GERD (gastroesophageal reflux disease) Status: Chronic Qualifiers: Esophagitis presence: esophagitis presence not specified Qualified Code(s): K21.9 - Gastro-esophageal reflux disease without esophagitis (6) COPD (chronic obstructive pulmonary disease) Status: Suspected Qualifiers: COPD type: unspecified COPD Qualified Code(s): J44.9 - Chronic obstructive pulmonary disease, unspecified (7) Alcohol abuse Status: Chronic (8) Seizure disorder Status: Chronic (9) Tobacco abuse Status: Chronic History of Present Illness Date of Admission: 05/27/20 Chief Complaint: Acute EtOH Withdrawal The patient is a 50 y/o M w/ PMHx: EtOH Abuse (1/5th liquor daily previously-->recently x 2 weeks 1.75 L vodka daily), Seizure history as youth and DT history, Heavy Tobacco use, Suspected Chronic COPD, Anxiety and Depre ssion with history of prior EtOH withdrawal treatment who presents to the [facility] ED on 05/27/20 noted to be sober since his significants hospitalization following RLE fracture in 11/2019; however, he and his significant started drinking again over the last 2 weeks, progressively increasing his consumption with self attempted decrease with onset acute EtOH withdrawal following last EtOH intake early AM on day of ED presentation with nausea, tremors, agitation, tactile disturbances, racing heart. Patient interested in attaining sober status. He does note he continues to liver with his significant and they both have alcohol abuse histories but until two weeks ago had been sober together. Work-up in the ED included T 97.4, heart rate initially 134, BP 132/100, respiratory rate 18, 100% on room air, CBC with WBC 14.7, hemoglobin 16.4, platelet 309 with left shift, CMP with sodium 131, potassium 3.3, glucose 112, total bilirubin 1.60, AST/ALT 29/30, alk phos 149, urine drug screen with positive cannabis, ethyl alcohol level less than 3. In the ED patient administered normal saline, potassium 20 mEq p.o. x1 in addition to Ativan 1 mg IV x1. Past Medical History Past Medical History (Chronic Problems): Chronic Problems (Last Reviewed 11/24/19 @ 09:24 by Vimal Devine) GERD (gastroesophageal reflux disease) (Chronic) Hyponatremia (Chronic) Alcohol abuse (Chronic) Seizure disorder (Chronic) Tobacco abuse (Chronic) Benign essential hypertension (Chronic) Allergies hydrocodone bitartrate [From Vicodin] Adverse Reaction (Verified 05/27/20 17:32) Other NIGHTMARES Home Medications: Ambulatory Orders Medication Instructions Recorded NK 05/27/20 Surgical History: cholecystectomy Psychiatric History: Anxiety, Depression Lives: Alone Smoking Status: Current every day smoker - Patient with ongoing 2 pack/day cigarette tobacco usage. Tobacco Use: Cigarettes Alcohol: Heavy - Patient previously had been utilizing 1/5 scotch daily but was sober 11/2019 until the end of April and started drinking vodka, up to 1.75 L daily. Drugs: None - *Family History Maternal History Items: Heart Disease, - - Maternal family history of anxiety and depression with suicide associated. Paternal History Items: - - Paternal family history of GERD, peptic ulcer disease, anxiety and depression with possible also from suicide but unclear. Review of Systems Constitutional: Reports: Anorexia, Malaise, Weakness, Fatigue. Denies: Chills, Fever, Weight Change HEENT: Denies: Head Aches, Sinus Congestion, Sinus Drainage Cardiovascular: Denies: Chest Pain, Palpitations Respiratory: Denies: Cough, Shortness of breath at rest, Sputum production Gastrointestinal: Reports: Nausea. Denies: Abdominal Pain, Vomiting Genitourinary: Denies: Dysuria Musculoskeletal: Denies: Joint Pain, Joint Tenderness Skin: Denies: Rash, Wounds Neurological: Reports: Tremor, - - Tactile disturbances.. Denies: Focal weakness, Numbness, Tingling Psychiatric: Reports: Anxiety, Depression. Denies: Homicidal Ideations, Suicidal Ideations Hematologic/ Lymphatic: Reports: Easy Bruising. Denies: Easy Bleeding VTE Information - Inpt Only VTE Present on Admission: No VTE Mechan Device Prophylaxis: None VTE Pharm Prophylaxis ordered?: No Reason prophylaxis not ordered:: Treatment Not Indicated Patient Problems: Active and Suspected Problems (Last Reviewed 11/24/19 @ 09:24 by Vimal Devine) Elevated BP without diagnosis of hypertension (Acute) Hypokalemia (Acute) Subjective: Patient fatigued, ongoing mild tachycardia, mild tremor present. Objective: Physical Examination: General: awake, alert, oriented x 3 and cooperative, seated upright in the ED bed, fatigued, mild tremor present. Skin: normal color, turgor, no icterus, cyanosis. HEENT: AT/NC, EOMI, PERRLA, dry MM, no carotid bruits or JVD noted. Lungs: CTA bilaterally, moderate effort, moderate decrease BL bases, no rales, ronchi or wheezing. Heart: Tachycardic with regular rhythm; no gallop, rub audible. Abdomen: soft, NTTP, ND, normal BS, mild HM. Extremities: no cyanosis, clubbing, or edema. Neurological: patient awake, alert, oriented x 3 but previously had been noted to be 2 out of 3 per ED physician; cognitive function decreased from baseline intact; pupils equally reactive to light and accomodation; cranial nerves II-XII grossly normal, moving all 4 extremities, no focal deficits, strength moderately globally decreased secondary to acute presentation, from her present. Psychiatric: affect appears fatigued, no acute evidence of depressive or anxiety feelings but does state desire to maintain sobriety. - Physical Exam Vitals/I&O's: Vital Signs Temp Pulse Resp BP Pulse Ox 97.4 F L 120 H 16 157/103 H 99 05/27/20 20:50 05/27/20 20:50 05/27/20 20:50 05/27/20 20:50 05/27/20 20:50 Oxygen Delivery Method Room Air Weight: 167 lb 15.876 oz Body Mass Index (BMI) 24.0 Finger Stick Blood Glucose 153 Intake and Output for Last 24 Hours 05/25/20 05/26/20 05/27/20 23:59 23:59 23:59 Intake Total 1000 / 1000 Balance 1000 / 1000 Laboratory Results 05/27/20 18:00: WBC 14.7 H, RBC 5.29, Hgb 16.4, Hct 46.8, MCV 88.5, MCH 31.0, MCHC 35.0, RDW Std Deviation 45.2 H, RDW Coeff of Wilma 14.5, Plt Count 309, MPV 9.4, Immature Gran % (Auto) 0.500, Neut % (Auto) 78.5 H, Lymph % (Auto) 15.5 L, Andrew % (Auto) 4.8, Eos % (Auto) 0.5, Baso % (Auto) 0.2, Absolute Neuts (auto) 11.5 H, Absolute Lymphs (auto) 2.27, Nucleated RBC % 0 05/27/20 18:00: Sodium 131 L, Potassium 3.3 L, Chloride 99, Carbon Dioxide 22.0, Anion Gap 10, BUN 4 L, Creatinine 0.79, Estim Creat Clear Calc 116.79, Est GFR (MDRD) Af Amer 134, Est GFR (MDRD) Non-Af 111, BUN/Creatinine Ratio 5.1 L, Glucose 112 H, Calcium 8.9, Total Bilirubin 1.60 H, AST 29, ALT 30, Alkaline Phosphatase 149 H, Total Protein 7.8, Albumin 4.1, Globulin 3.7, Albumin/Globulin Ratio 1.1 05/27/20 18:00: Ethyl Alcohol Cancelled 05/27/20 19:00: Urine Opiates Screen NEGATIVE, Urine Methadone Screen NEGATIVE, Ur Barbiturates Screen NEGATIVE, Ur Phencyclidine Scrn NEGATIVE, Ur Amphetamines Screen NEGATIVE, U Methamphetamin-MDMA NEGATIVE, U Benzodiazepines Scrn NEGATIVE, Urine Cocaine Screen NEGATIVE, U Cannabinoids Screen POSITIVE H, Ur Drug Screen Comment 05/27/20 19:30: Ethyl Alcohol Pending Assessment/Plan All Active Problems (Last Reviewed 11/24/19 @ 09:24 by Vimal Devine) Alcohol withdrawal (Acute) Elevated BP without diagnosis of hypertension (Acute) Hypokalemia (Acute) Alcohol withdrawal (Acute) The patient is a 50 y/o M w/ PMHx: EtOH Abuse (1/5th liquor daily previously-->recently x 2 weeks 1.75 L vodka daily), Seizure history as youth and DT history, Heavy Tobacco use, Suspected Chronic COPD, Anxiety and Depression with history of prior EtOH withdrawal treatment who presents to the [facility] ED on 05/27/20 noted to be sober since his significants hospitalization following RLE fracture in 11/2019; however, he and his significant started drinking again over the last 2 weeks, progressively increasing his consumption with self attempted decrease with onset acute EtOH withdrawal. 1. Acute EtOH Withdrawal: Will admit to PCU given possible DT prior history, routine labs obtained in the ED upon presentation. Given interest in sobriety, will initiate and continue on protocol with taper course of Phenobarbital, scheduled gabapentin for seizure prophylaxis, as needed Catapres, Bentyl, Vistaril, IV fluids, IV antiemetics, Tylenol as needed for pain. Will consult Case management for assistance for transition to next level of rehabilitation care. Mag, phos pending. Maintain on CIWA protocol concurrently. 2. Hypokalemia: Admission K+ 3.3, magnesium level requested, supplementation g iven, repeat level in AM. 3. Hyponatremia, mild: Admission sodium 131, noted previously, chronic component likely secondary to alcohol abuse, judiciously hydrating per protocol, repeat CMP in a.m. 4. Leukocytosis, unclear etiology, possibly reactive: Admission CBC with WC 14.7 with left shift, afebrile, no recent urinary, pulmonary, abdominal complaints, closely monitor, plan repeat CBC in a.m. and further investigate if necessary. 5. Elevated BP without hypertensive diagnosis: Patient with elevated blood pressures while in the ED, continue to closely monitor and add oral regimen if appropriate, possibly related solely with withdrawal presentation. 6. Suspected underlying COPD: Not on regimen, strongly encouraged tobacco cessation, PRN albuterol. 7. Tobacco Abuse: Encouraged cessation, inpatient consultation per RT, NR if desired. 8. Anxiety and depression: Not on regimen, likely contributes to acute presentation and ongoing issues with alcohol abuse, plan follow-up with 180, case management consulted. 9. History of seizures: Notes history of seizures in his youth but also possible DT history, not on any antiepileptics, closely monitor and will maintain on telemetry given unclear DT history. 10. GERD: We will maintain on famotidine. 11. DVT prophylaxis: Low risk, encourage ambulation. Inpatient E&M: 30207 Init Hosp L3
[2020-05-27] MEDS: 0.9% Saline Lock 10 ML Syringe IV (22:20)
[2020-05-27] MEDS: Lactated Ringers 1,000 ML 125 ML IV (22:21)
[2020-05-27 22:30] LABS: Alcohol, Blood (Medical)-Serum < 3.0 mg/dL
[2020-05-27 22:32] LABS: Magnesium 1.6 mg/dL (1.6-2.6)
[2020-05-27] MEDS: Phenobarbital 32.4 MG Tablet 64.8 MG PO (22:42)
[2020-05-28] VITALS (13 sets, daily range): BP systolic 116–148; BP diastolic 68–93; PULSE 80–110; RESP 16–18; TEMP 36.7–37.2; O2SAT 95–100
[2020-05-28] MEDS: Phenobarbital 32.4 MG Tablet 64.8 MG PO ×6 (02:34→21:59)
[2020-05-28] MEDS: guaiFENesin 1,200 MG Tablet 1200 MG PO ×3 (02:44→21:59)
[2020-05-28] MEDS: Ibuprofen 600 MG Tablet PO (05:46)
--- NOTE | 2020-05-28 05:55 | RAD_ITS ---
HISTORY: SOB AND COUGH ADDITIONAL HISTORY: None provided. EXAMINATION/TECHNIQUE: XR Chest 1 View AP/PA Number of images including paperwork: 2 COMPARISON: 12/14/2019 FINDINGS: LUNGS AND PLEURA: No consolidation, mass or pleural effusion. Lucent lungs with attenuated vasculature suggesting emphysema. CARDIAC SILHOUETTE: Unremarkable. MEDIASTINUM AND MINDI: Unremarkable. UPPER ABDOMEN: Unremarkable. SKELETON AND SOFT TISSUES: No acute skeletal findings. Degenerative changes. Old left clavicle fracture. OTHER DEVICES AND HARDWARE: None. RAD/Chest 1 View (Portable) IMPRESSION: No acute cardiopulmonary abnormality. at 0511 Reported and signed by: Sangeeta Bedoya MD Electronically Signed: Sangeeta Bedoya MD at 5:11 EDT Tel , Service support ,
[2020-05-28 06:09] LABS: Absolute Lymphocyte Count 2.99 X10^3/uL (0.83-4.51); Absolute Neutrophil Count 7.1 X10^3/uL (2.0-7.7); Basophil# 0.05 X10^3/uL; Basophil% 0.5 % (0-1); Eosinophil# 0.24 X10^3/uL; Eosinophils% 2.2 % (0-5); Hematocrit 35.5 % (40-54); Hemoglobin 12.1 g/dL (13.0-16.5); Lymphocyte # 2.99 X10^3/ul (4.0); Lymphocyte % 27.1 % (19-41); Mean Corp Hgb Conc 34.1 g/dL (32-36); Mean Corpuscular Hgb 31.3 pg (27.0-32.0); Monocyte# 0.62 X10^3/uL; Monocyte% 5.6 % (0-10); NRBC Flagged by Analyzer 0 % (0-5); Neutrophil # 7.09 X10^3/uL (2.7-7.7); Neutrophil % 64.2 % (47-70); Platelet Count 222 K/mm3 (150-450); RBC Distribution Width CV 14.6 % (11.6-14.6); RBC Distribution Width SD 48.2 fl (35.1-43.9); Red Blood Count 3.86 M/mm3 (4.6-6.2)
[2020-05-28 06:31] LABS: AST(SGOT) 13 U/L (15-37); Alanine Aminotransfer ALT/SGPT 16 U/L (16-61); Albumin, Serum 2.7 g/dL (3.2-5.0); Alkaline Phosphatase 97 U/L (45-117); Anion Gap 8 (5-15); BUN 4 mg/dL (7-18); Calcium,Total 7.8 mg/dL (8.5-10.1); Chloride 104 mmol/L (98-107); Creatinine, Serum 0.57 mg/dL (0.70-1.30); EST Glomerular Filtration Rate 161 mL/min (>60); Est Glom Filt Rate - Afr Amer 195 mL/min (>60); Estimated Creatinine Clearance 166.97 ml/min; Globulin 2.7 g/dL (2.2-4.2); Glucose 121 mg/dL (74-106); Potassium 3.3 mmol/L (3.5-5.1); Protein, Total 5.4 g/dL (6.4-8.2); Sodium Level 137 mmol/L (136-145)
[2020-05-28] MEDS: Multivitamins,Therapeutic Tablet 1 TABLET PO (07:56)
[2020-05-28] MEDS: Thiamine Hydrochloride 100 MG Tablet PO (07:56)
[2020-05-28] MEDS: Folic Acid 1 MG Tablet PO (07:56)
[2020-05-28] MEDS: Famotidine 20 MG Tablet PO ×2 (07:57→21:59)
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
--- NOTE | 2020-05-28 15:00 | CASEMGMT ---
Social Work Pt admitted for ETOH withdrawal. SW met with pt and introduced self and role of SW. Pt stating he has had issues with alcohol addiction in the past but became sober. Pt states he recently thought that he could now control alcohol use and started drinking again. Pt now realizes he cannot control this. Pt stating he is familiar with [facility] and has used them in the past. Pt is agreeable to SW calling [facility] treatment navigator. VM left with treatment navigator at [facility]. ANOPO Grace
[2020-05-28] MEDS: Albuterol 2.5 MG/3 ML VIAL.NEB. INHALATION ×2 (19:16→22:24)
[2020-05-28] MEDS: hydrOXYzine PAM 25 MG Capsule 50 MG PO (20:03)
[2020-05-29] VITALS (9 sets, daily range): BP systolic 113–141; BP diastolic 66–87; PULSE 82–115; RESP 16–19; TEMP 36.6–37; O2SAT 96–99
[2020-05-29] MEDS: traZODone 100 MG Tablet PO
[2020-05-29] MEDS: Phenobarbital 32.4 MG Tablet 64.8 MG PO ×6 (02:22→22:17)
[2020-05-29] MEDS: Albuterol 2.5 MG/3 ML VIAL.NEB. INHALATION ×2 (07:29→14:38)
[2020-05-29 07:55] LABS: Anion Gap 5 (5-15); BUN 5 mg/dL (7-18); BUN/Creat Ratio 8.4 RATIO (10-20); Calcium,Total 8.4 mg/dL (8.5-10.1); Chloride 107 mmol/L (98-107); Creatinine, Serum 0.59 mg/dL (0.70-1.30); EST Glomerular Filtration Rate 154 mL/min (>60); Est Glom Filt Rate - Afr Amer 186 mL/min (>60); Estimated Creatinine Clearance 161.31 ml/min; Glucose 99 mg/dL (74-106); Potassium 4.4 mmol/L (3.5-5.1); Sodium Level 139 mmol/L (136-145)
[2020-05-29] MEDS: Multivitamins,Therapeutic Tablet 1 TABLET PO (08:31)
[2020-05-29] MEDS: guaiFENesin 1,200 MG Tablet 1200 MG PO ×2 (08:31→22:18)
[2020-05-29] MEDS: Folic Acid 1 MG Tablet PO (08:31)
[2020-05-29] MEDS: Famotidine 20 MG Tablet PO ×2 (08:31→22:18)
[2020-05-29] MEDS: Thiamine Hydrochloride 100 MG Tablet PO (08:31)
[2020-05-29] MEDS: 0.9% Saline Lock 10 ML Syringe IV (10:35)
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
[2020-05-30] MEDS: Phenobarbital 32.4 MG Tablet 64.8 MG PO ×2 (02:50→06:17)
[2020-05-30 04:15] VITALS: BP 121/64; PULSE 101; RESP 18; TEMP 36.9; O2SAT 97
[2020-05-30 07:20] VITALS: O2SAT 99
[2020-05-30 09:05] VITALS: BP 118/80; PULSE 100; RESP 16; TEMP 37; O2SAT 100
--- NOTE | 2020-05-30 09:07 | DCINST_ITS ---
- Discharge Diagnoses Current Active Problems: Current Active and Chronic Problems (Last Reviewed 11/24/19 @ 09:24 by Vimal Devine) alcohol withdrawal Hypokalemia (Acute) Hyponatremia (Chronic) You will use the following diet at home:: No restrictions Discharge Activity: Return to Normal Activity Allergies/Adverse Reactions: Allergies hydrocodone bitartrate [From Vicodin] Adverse Reaction (Verified 05/27/20 17:32) Other NIGHTMARES Medications to take at Discharge NK 05/27/20 Primary Care Physician: Miguel Galo MD [Primary Care Provider] - Please follow up with your Primary Care Physician in: 1 Week Test Results: Test results from this visit will be discussed in further detail at your follow- up appointment, if applicable. Please Follow Up With: [facility] When: As scheduled 06/03 Proposed Discharge Date: 05/30/20
--- NOTE | 2020-05-30 09:09 | DS.PCM_ITS ---
<Diamante Granados ACCOUNT RETENTION REPRESENTATIVE - Last Filed: 05/30/20 09:13> Discharge Date and Diagnosis Date of Admission: 05/27/20 Date of Discharge: 05/30/20 - Primary Discharge Diagnosis Acute Problems: Active Problems (Last Reviewed 11/24/19 @ 09:24 by Vimal Devine) 1. Acute alcohol withdrawal, chronic alcohol abuse 2. Hypokalemia 3. Hypovolemic hyponatremia 4. Reactive leukocytosis 5. Suspected COPD with extensive tobacco use history 6. Anxiety/depression 7. History of seizures 8. GERD - Secondary Discharge Diagnosis Chronic Problems: Chronic Problems (Last Reviewed 11/24/19 @ 09:24 by Vimal Devine) GERD (gastroesophageal reflux disease) (Chronic) Hyponatremia (Chronic) Alcohol abuse (Chronic) Seizure disorder (Chronic) Tobacco abuse (Chronic) Benign essential hypertension (Chronic) Hospital Course and Treatment Imaging Results: Diagnostic Data Chest X-Ray 05/28/20 05:55 IMPRESSION: No acute cardiopulmonary abnormality. at 0511 Reported and signed by: Sangeeta Bedoya MD Electronically Signed: Sangeeta Bedoya MD at 5:11 EDT Tel , Service support , Operations: None Procedures: None Summary of Care Provided: The patient is a 50 year old M admitted 05/27/2020 due to alcohol withdrawal. 1. 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 CIWA/Ativan protocol. Phenobarbital taper during admission. [facility] consulted. Plan for outpatient follow-up, patient has an appointment 06/03/2020. 2. Hypokalemia-replaced per protocol. Resolved. 3. Hypovolemic hyponatremia-resolved with fluids. 4. Reactive leukocytosis-resolved. 5. Suspected COPD with extensive tobacco use history-encouraged cessation. Recommend outpatient follow-up for formal COPD evaluation. 6. Anxiety/depression-not on regimen. 7. History of seizures-seizure precautions. Not on antiepileptic. Suspect history of seizures related to #1. 8. GERD-not on regimen. General: Alert, Oriented x3, Cooperative HEENT: Atraumatic, PERRLA, EOMI, Normocephalic Neck: Supple, No JVD, Negative Carotid Bruits Lungs: Clear to auscultation, Normal air movement Cardiovascular: Regular rate, No murmurs Abdomen: Bowel Sounds Present, Soft, Non Tender, Non-Distended Extremities: No clubbing, No cyanosis, No edema, Capillary Refill Less than 3 Seconds Skin: No rashes, No breakdown Musculoskeletal: No Tenderness to Palpation of Joints or Extremities Neurological: Cranial nerves II-XII grossly intact, Neuro grossly intact Psych/Mental Status: Normal Affect, Appropriate Patient seen and examined prior to discharge. Physical assessment as noted above. Patient is stable for discharge with follow up recommendations as noted above. This patient was seen by DOMINIQUE Baker under the supervision of Dr. Yañez. - Physical Exam Vitals/I&O's: Vital Signs Temp Pulse Resp BP Pulse Ox 98.6 F 100 16 118/80 100 05/30/20 09:05 05/30/20 09:05 05/30/20 09:05 05/30/20 09:05 05/30/20 09:05 Oxygen Delivery Method Room Air Weight: 167 lb 8.821 oz Body Mass Index (BMI) 23.3 Finger Stick Blood Glucose 153 Intake and Output for Last 24 Hours 05/28/20 05/29/20 05/30/20 23:59 23:59 23:59 Intake Total 3239.58 / 3739.58 2320 / 2820 1180 / 1180 Balance 3239.58 / 3739.58 2320 / 2820 1180 / 1180 Current Medications Acetaminophen (Tylenol) 500 mg PO Q4H PRN PRN PRN Reason: Temp > 100.4 F Al Hydroxide/Mg Hydroxide (Mylanta Ii) 30 ml PO Q6H PRN PRN PRN Reason: dyspesia Albuterol Sulfate (Ventolin Aerosols) 2.5 mg INHALATION Q2H PRN PRN PRN Reason: Dyspnea, wheezing Last Admin: 05/29/20 14:38 Dose: 2.5 mg Documented by: Bisacodyl (Dulcolax) 10 mg RECTAL DAILY PRN PRN Reason: Constipation Dicyclomine HCl (Bentyl) 20 mg PO Q6H PRN PRN PRN Reason: abdominal discomfort Famotidine (Pepcid) 20 mg PO BID [facility] Last Admin: 05/29/20 22:18 Dose: 20 mg Documented by: Folic Acid (Folic Acid) 1 mg PO DAILY@0800 [facility] Last Admin: 05/29/20 08:31 Dose: 1 mg Documented by: Gabapentin (Neurontin) 300 mg PO Q8H PRN PRN PRN Reason: moderate to severe anxiety Guaifenesin (Mucinex) 1,200 mg PO BID [facility] Last Admin: 05/29/20 22:18 Dose: 1,200 mg Documented by: Hydroxyzine Pamoate (Vistaril Pamoate Capsule) 50 mg PO Q4H PRN PRN PRN Reason: mild anxiety Last Admin: 05/28/20 20:03 Dose: 50 mg Documented by: Sodium Chloride () 250 mls @ 15 mls/hr IV .[id number] PRN PRN Reason: Saline Flush Sodium Chloride () 250 mls @ 15 mls/hr IV .[id number] PRN PRN Reason: Additional IVPB Infusion Ibuprofen (Motrin) 600 mg PO Q8H PRN PRN PRN Reason: Pain Score 1-10 Last Admin: 05/28/20 05:46 Dose: 600 mg Documented by: Loperamide HCl (Imodium) 2 mg PO Q4H PRN PRN PRN Reason: LOOSE STOOLS [facility] Last Admin: 05/29/20 08:31 Dose: 1 tablet Documented by: Nicotine (Nicoderm Cq (Pbkc)) 21 mg TRANSDERM. DAILY [facility] Last Admin: 05/29/20 08:31 Dose: 21 mg Documented by: Nicotine Polacrilex (Rugby Nicotine (Bkc)) 2 mg PO Q2H PRN PRN PRN Reason: Nicotine Craving Ondansetron HCl (Zofran) 8 mg PO Q8H PRN PRN PRN Reason: NAUSEA Phenobarbital (Phenobarbital) 64.8 mg PO Q6H [facility]; Taper Stop: 06/01/20 06:29 Last Admin: 05/30/20 06:17 Dose: 64.8 mg Documented by: Senna (Senokot) 2 tablet PO QHS PRN PRN PRN Reason: Constipation Sodium Chloride () 10 - 40 ml IV UD PRN PRN Reason: SALINE FLUSH Last Admin: 05/29/20 10:35 Dose: 10 ml Documented by: Thiamine HCl (Vitamin B1) 100 mg PO DAILYCM [facility] Last Admin: 05/29/20 08:31 Dose: 100 mg Documented by: Trazodone HCl (Desyrel) 100 mg PO QHS PRN PRN PRN Reason: INSOMNIA Last Admin: 05/29/20 00:00 Dose: 100 mg Documented by: Discharge Diet: No Restrictions Discharge Activity: Return to Normal Activity Home Medications: Medications to take at Discharge NK 05/27/20 Primary Care Physician: Miguel Galo MD [Primary Care Provider] - Please follow up with your Primary Care Physician in: 1 Week Please Follow Up With: [facility] When: As scheduled 06/03 Disposition: Home Minutes spent on discharge:: 35 Patient Condition:: Stable Medical Necessity - Tobacco Use Smoking Status: Current every day smoker Tobacco Use: Cigarettes Meaningful Use Info Meaningful Use Diagnoses (Choose all that apply): None applicable <Desi Yañez - Last Filed: 05/30/20 11:40> Discharge Date and Diagnosis - Secondary Discharge Diagnosis Chronic Problems: Chronic Problems (Last Reviewed 11/24/19 @ 09:24 by Vimal Devine) GERD (gastroesophageal reflux disease) (Chronic) Hyponatremia (Chronic) Alcohol abuse (Chronic) Seizure disorder (Chronic) Tobacco abuse (Chronic) Benign essential hypertension (Chronic) Hospital Course and Treatment Summary of Care Provided: Patient seen by Diamante FOX under my supervision The patient is a 50 year old M with a past medical history as outlined was admitted on 05/27/2020 for acute alcohol withdrawal. He was managed for acute alcohol withdrawal protocol with phenobarbital. He tolerated the detox with phenobarbital. Hospital course was complicated by hypovolemic hyponatremia which resolved with administration of IVF. He also had reactive leucocytosis which resolved spontaneously. Patient remained stable and was discharged home on 05/30/2020. He is to follow up with [facility] on outpatient basis. Patient seen and examined prior to discharge. He had no complaints and felt ready to go home. Review of systems was otherwise negative. Labs and vitals reviewed. Home medications reviewed and reconciled. O/E:' Vital Signs Temp Pulse Resp BP Pulse Ox 98.6 F 100 16 118/80 100 05/30/20 09:05 05/30/20 09:05 05/30/20 09:05 05/30/20 09:05 05/30/20 09:05 [] General: Alert, Oriented x3, Cooperative HEENT: Atraumatic, PERRLA, EOMI, Normocephalic Neck: Supple, No JVD, Negative Carotid Bruits Lungs: Clear to auscultation, Normal air movement Cardiovascular: Regular rate, No murmurs Abdomen: Bowel Sounds Present, Soft, Non Tender, Non-Distended Extremities: No clubbing, No cyanosis, No edema, Capillary Refill Less than 3 Seconds Skin: No rashes, No breakdown Musculoskeletal: No Tenderness to Palpation of Joints or Extremities Neurological: Cranial nerves II-XII grossly intact, Neuro grossly intact Psych/Mental Status: Normal Affect, Appropriate Plan is for discharge home today as above. Rest as per Diamante Granados ACCOUNT RETENTION REPRESENTATIVE-C's note, which I have reviewed and endorsed. - Physical Exam Vitals/I&O's: Vital Signs Temp Pulse Resp BP Pulse Ox 98.6 F 100 16 118/80 100 05/30/20 09:05 05/30/20 09:05 05/30/20 09:05 05/30/20 09:05 05/30/20 09:05 Oxygen Delivery Method Room Air Weight: 167 lb 8.821 oz Body Mass Index (BMI) 23.3 Finger Stick Blood Glucose 153 Intake and Output for Last 24 Hours 05/28/20 05/29/20 05/30/20 23:59 23:59 23:59 Intake Total 3239.58 / 3739.58 2320 / 2820 1180 / 1180 Balance 3239.58 / 3739.58 2320 / 2820 1180 / 1180 Current Medications Acetaminophen (Tylenol) 500 mg PO Q4H PRN PRN PRN Reason: Temp > 100.4 F Al Hydroxide/Mg Hydroxide (Mylanta Ii) 30 ml PO Q6H PRN PRN PRN Reason: dyspesia Albuterol Sulfate (Ventolin Aerosols) 2.5 mg INHALATION Q2H PRN PRN PRN Reason: Dyspnea, wheezing Last Admin: 05/29/20 14:38 Dose: 2.5 mg Documented by: Bisacodyl (Dulcolax) 10 mg RECTAL DAILY PRN PRN Reason: Constipation Dicyclomine HCl (Bentyl) 20 mg PO Q6H PRN PRN PRN Reason: abdominal discomfort Famotidine (Pepcid) 20 mg PO BID [facility] Last Admin: 05/30/20 09:15 Dose: 20 mg Documented by: Folic Acid (Folic Acid) 1 mg PO DAILY@0800 [facility] Last Admin: 05/30/20 09:14 Dose: 1 mg Documented by: Gabapentin (Neurontin) 300 mg PO Q8H PRN PRN PRN Reason: moderate to severe anxiety Guaifenesin (Mucinex) 1,200 mg PO BID [facility] Last Admin: 05/30/20 09:14 Dose: 1,200 mg Documented by: Hydroxyzine Pamoate (Vistaril Pamoate Capsule) 50 mg PO Q4H PRN PRN PRN Reason: mild anxiety Last Admin: 05/28/20 20:03 Dose: 50 mg Documented by: Sodium Chloride () 250 mls @ 15 mls/hr IV .[id number] PRN PRN Reason: Saline Flush Sodium Chloride () 250 mls @ 15 mls/hr IV .[id number] PRN PRN Reason: Additional IVPB Infusion Ibuprofen (Motrin) 600 mg PO Q8H PRN PRN PRN Reason: Pain Score 1-10 Last Admin: 05/28/20 05:46 Dose: 600 mg Documented by: Loperamide HCl (Imodium) 2 mg PO Q4H PRN PRN PRN Reason: LOOSE STOOLS [facility] ([facility]) [facility] Last Admin: 05/30/20 09:14 Dose: 1 tablet Documented by: Nicotine (Nicoderm Cq (Pbkc)) 21 mg TRANSDERM. DAILY [facility] Last Admin: 05/30/20 09:15 Dose: Not Given Documented by: Nicotine Polacrilex (Rugby Nicotine (Bkc)) 2 mg PO Q2H PRN PRN PRN Reason: Nicotine Craving Ondansetron HCl (Zofran) 8 mg PO Q8H PRN PRN PRN Reason: NAUSEA Phenobarbital (Phenobarbital) 64.8 mg PO Q6H [facility]; Taper Stop: 06/01/20 06:29 Last Admin: 05/30/20 06:17 Dose: 64.8 mg Documented by: Senna (Senokot) 2 tablet PO QHS PRN PRN PRN Reason: Constipation Sodium Chloride () 10 - 40 ml IV UD PRN PRN Reason: SALINE FLUSH Last Admin: 05/29/20 10:35 Dose: 10 ml Documented by: Thiamine HCl (Vitamin B1) 100 mg PO DAILYCM [facility] Last Admin: 05/30/20 09:14 Dose: 100 mg Documented by: Trazodone HCl (Desyrel) 100 mg PO QHS PRN PRN PRN Reason: INSOMNIA Last Admin: 05/29/20 00:00 Dose: 100 mg Documented by: Inpatient E&M: [id number] Disch Hosp
[2020-05-30] MEDS: guaiFENesin 1,200 MG Tablet 1200 MG PO (09:14)
[2020-05-30] MEDS: Multivitamins,Therapeutic Tablet 1 TABLET PO (09:14)
[2020-05-30] MEDS: Folic Acid 1 MG Tablet PO (09:14)
[2020-05-30] MEDS: Thiamine Hydrochloride 100 MG Tablet PO (09:14)
[2020-05-30] MEDS: Famotidine 20 MG Tablet PO (09:15)
[2020-05-30 10:55] VITALS: BP 118/80; PULSE 100; RESP 16; TEMP 37; O2SAT 100
== END 2020-05-30 11:06 | disposition home or self-care (01) | DRG 775 ==
LOC: ED 21:05 → PCU 21:20
PROVIDERS: Nurse Practitioner Family; Admitting Provider Family Medicine; Emergency Provider Emergency Medicine; PCP Family Medicine; Visit Provider Student in an Organized Health Care Education/Training Program
DX: F10.239 Alcohol dependence with withdrawal, unspecified (principal); E87.6 Hypokalemia; E87.1 Hypo-osmolality and hyponatremia; E86.1 Hypovolemia; D72.828 Other elevated white blood cell count; K21.9 Gastro-esophageal reflux disease without esophagitis; I10 Essential (primary) hypertension; F17.210 Nicotine dependence, cigarettes, uncomplicated; J44.9 Chronic obstructive pulmonary disease, unspecified; F32.9 Major depressive disorder, single episode, unspecified; F41.9 Anxiety disorder, unspecified
CPT/HCPCS: 36415; 71045; 80048; 80053; 80307; 80320; 83735; 84100; 85025; 93005; 94640; 99285; J7120; A4216; G0480

== ENCOUNTER → 2020-06-22 14:53 | Outpatient (CLI) | payer MEDICAID, SELFPAY ==
[2020-06-22 14:18] VITALS: BMI 27.8
[2020-06-22 17:32] LABS: T4 Free Direct 0.96 ng/dL (0.76-1.46); Thyroid Stim Hormone (TSH) 1.12 uIU/mL (0.358-3.74)
== END ==
PROVIDERS: PCP Internal Medicine; Referring Provider Internal Medicine; Visit Provider Internal Medicine
DX: F41.9 Anxiety disorder, unspecified (principal); F32.9 Major depressive disorder, single episode, unspecified
CPT/HCPCS: 36415; 84439; 84443

== ENCOUNTER → 2020-07-07 10:04 | Outpatient (CLI) | payer MEDICAID, SELFPAY ==
[2020-05-27 22:00] VITALS: BMI 23.3
[2020-06-22 14:18] VITALS: BMI 27.8
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
== END ==
PROVIDERS: PCP Internal Medicine; Referring Provider Otolaryngology; Visit Provider Otolaryngology
DX: H91.8X9 Other specified hearing loss, unspecified ear (principal); H93.19 Tinnitus, unspecified ear
CPT/HCPCS: 70553; A9575

== ENCOUNTER 2020-07-22 09:00 | Inpatient (IN) | payer MEDICAID, SELFPAY ==
[2020-06-22 14:18] VITALS: BMI 27.8
[2020-07-22] VITALS (11 sets, daily range): BP systolic 109–135; BP diastolic 60–89; PULSE 71–122; RESP 16–20; TEMP 36.4–37.1; O2SAT 95–99; BMI 27.5; BMI 25.3
--- NOTE | 2020-07-22 09:12 | CT_ITS ---
STUDY: CT BRAIN WITHOUT CONTRAST REASON FOR EXAM: Male, 50 years old. ALTERED MENTAL STATUS, HAS HAD 3 SEIZURES THIS AM, ONLY HAS SEIZURES WHEN DETOXING, COMBATIVE RADIATION DOSAGE (If Supplied By Facility): CTDIvol = ( 44.99 ) mGy, DLP = ( 829.85 ) mGycm TECHNIQUE: Transaxial CT imaging of the brain was performed without administration of intravenous contrast material. Individualized dose optimization techniques were used for this CT. COMPARISON: Comparison is made with prior study 06/01/2019. FINDINGS: Normal soft tissue structures. Normal calvarium. There is mild cerebral atrophy with widening of the extra-axial spaces and ventricular dilatation. Focal encephalomalacia in the left temporal lobe in keeping with prior injury. Normal basal ganglia and thalami. Normal brainstem. Normal cerebellum. There is no intracranial hemorrhage. There are no findings of an acute ischemic infarction. The previously seen left hemispheric subdural hematoma has resolved. The subarachnoid hemorrhage as resolved as well. Normal visualized paranasal sinuses. CT/Brain/Head without Contrast IMPRESSION: Chronic involutional changes of the brain. Electronically Signed: Dale Flores, at 10:00 EST , Service support ,
--- NOTE | 2020-07-22 09:12 | EKG12_ITS ---
Test Reason : DYSRHYTHMIA Blood Pressure : / mmHG Vent. Rate : 091 BPM Atrial Rate : 091 BPM P-R Int : 148 ms QRS Dur : 082 ms QT Int : 340 ms P-R-T Axes : 084 080 067 degrees QTc Int : 418 ms Normal sinus rhythm Normal ECG Confirmed by YOUNG BONNER, EVENS ([id number]), supervising editor trailer AKSEY WILSON ([id number]) on 07/26/2020 1:03:20 PM Referred By: JOLIE Confirmed By:EVENS VIDAL MD
--- NOTE | 2020-07-22 09:14 | ED.VIS.GEN ---
History of Present Illness Chief Complaint: Seizure Narrative: Patient is a 50-year-old male who presents with altered mental status. EMS was called for seizures. Per the roommate he had 3 seizures. He has a history of alcohol withdrawal seizures. The roommate had stated that he has been drinking lately. Patient has been agitated for EMS. He does not follow commands or answer questions so history is limited and no further history was able to be obtained. Past Medical History - Allergies and Home Meds Allergies/Adverse Reactions: Allergies codeine Allergy (Mild, Verified 06/22/20 14:07) NIGHTMARES hydrocodone bitartrate [From Vicodin] Adverse Reaction (Verified 05/27/20 17:32) Other NIGHTMARES Primary Care Physician: Nick Blackwell MD [Primary Care Provider] - Past Medical History: - - History of alcohol withdrawal, depression and anxiety Surgical History: cholecystectomy Smoking Status: Unknown if ever smoked - Family History Maternal Family History: Family History (Last Updated 06/22/20 @ 14:13 by Aundrea Claros) Mother Suicide Depression Arthritis Anxiety Father Suicide Alcoholism Grandfather Alcoholism Family History: Reports: Heart Disease, - - Maternal family history of anxiety and depression with suicide associated. Paternal Family History: Family History (Last Updated 06/22/20 @ 14:13 by Aundrea Claros) Mother Suicide Depression Arthritis Anxiety Father Suicide Alcoholism Grandfather Alcoholism Family History: Reports: - - Paternal family history of GERD, peptic ulcer disease, anxiety and depression with possible also from suicide but unclear. Review of Systems ROS: Unable to Obtain Physical Exam Vital Signs/Narrative: Vital Signs Temp Pulse Resp BP Pulse Ox 07/22/20 09:01 97.7 F L 122 H 20 H 135/60 H 97 Inital Vital Signs reviewed: Yes General: Well nourished Head: Normocephalic Eyes: EOMI ENT: Moist mucous membranes Neck: Supple Cardiovascular: Regular rate, Regular rhythm Respiratory: No distress, CTA bilaterally Abdomen: Soft, Nontender Extremities: Nontender, - - Full passive range of motion x4 extremities without any apparent pain, no deformities Skin: Normal color Neurological: - - Patient is agitated on exam. He is laying on his side and awakens to tactile or verbal stimuli and sits straight up looks around rapidly simple statement such as what? and then rolls back over he does not appear to have focal or lateralizing neurological deficit, his speech is clear Psychological: Agitated - agitated on exam or when stimulated Diagnostic/Tx/Re-eval Impressions Brain CT 07/22/20 09:12 IMPRESSION: Chronic involutional changes of the brain. Electronically Signed: Dale Flores, at 10:00 EST , Service support , Chest X-Ray 07/22/20 10:20 IMPRESSION: Hyperinflation. The lungs are clear. Electronically Signed: Dale Escamillatano, at 10:37 EST , Service support , 07/22/20 09:12 Brain/Head without Contrast [CT] Stat 07/22/20 10:20 CXR [Chest 1 View (Portable)] [RAD] Stat 07/22/20 12:30 Csf, Spinal Fluid Gram Stain - Final Laboratory Results 07/22/20 07/22/20 07/22/20 09:35 09:35 09:35 WBC 20.0 H RBC 5.05 Hgb 15.6 Hct 47.6 MCV 94.3 H MCH 30.9 MCHC 32.8 RDW Std Deviation 53.0 H RDW Coeff of Wilma 15.4 H Plt Count 397 MPV 8.7 Immature Gran % (Auto) 0.900 Neut % (Auto) 86.7 H Lymph % (Auto) 6.4 L Meriwether % (Auto) 4.8 Eos % (Auto) 0.9 Baso % (Auto) 0.3 Absolute Neuts (auto) 17.4 H Absolute Lymphs (auto) 1.27 Nucleated RBC % 0 Sodium 136 Potassium 3.7 Chloride 105 Carbon Dioxide 24.0 Anion Gap 7 BUN 7 Creatinine 0.85 Estim Creat Clear Calc 111.97 Est GFR (MDRD) Af Amer 123 Est GFR (MDRD) Non-Af 102 BUN/Creatinine Ratio 8.3 L Glucose 76 Lactic Acid Calcium 8.1 L Total Bilirubin 0.10 L AST 12 L ALT 17 Alkaline Phosphatase 63 Total Creatine Kinase Total Protein 7.1 Albumin 3.6 Globulin 3.5 Albumin/Globulin Ratio 1.0 Prolactin Fld Polynuclear WBCs # Fld Polynuclear WBCs % Fluid Mononuclear WBCs Fld Mononuclear WBCs % CSF Appearance CSF Color CSF WBC CSF RBC CSF Cell Count Tube # CSF Total Cell Counted CSF Comment CSF Glucose CSF Total Protein Urine Opiates Screen Urine Methadone Screen Ur Barbiturates Screen Ur Phencyclidine Scrn Ur Amphetamines Screen U Methamphetamin-MDMA U Benzodiazepines Scrn Urine Cocaine Screen U Cannabinoids Screen Ur Drug Screen Comment Ethyl Alcohol < 3.0 07/22/20 07/22/20 07/22/20 09:35 09:35 10:03 WBC RBC Hgb Hct MCV MCH MCHC RDW Std Deviation RDW Coeff of Wilma Plt Count MPV Immature Gran % (Auto) Neut % (Auto) Lymph % (Auto) Meriwether % (Auto) Eos % (Auto) Baso % (Auto) Absolute Neuts (auto) Absolute Lymphs (auto) Nucleated RBC % Sodium Potassium Chloride Carbon Dioxide Anion Gap BUN Creatinine Estim Creat Clear Calc Est GFR (MDRD) Af Amer Est GFR (MDRD) Non-Af BUN/Creatinine Ratio Glucose Lactic Acid 4.6 H* Calcium Total Bilirubin AST ALT Alkaline Phosphatase Total Creatine Kinase 231 Total Protein Albumin Globulin Albumin/Globulin Ratio Prolactin 25.0 Fld Polynuclear WBCs # Fld Polynuclear WBCs % Fluid Mononuclear WBCs Fld Mononuclear WBCs % CSF Appearance CSF Color CSF WBC CSF RBC CSF Cell Count Tube # CSF Total Cell Counted CSF Comment CSF Glucose CSF Total Protein Urine Opiates Screen NEGATIVE Urine Methadone Screen NEGATIVE Ur Barbiturates Screen NEGATIVE Ur Phencyclidine Scrn NEGATIVE Ur Amphetamines Screen NEGATIVE U Methamphetamin-MDMA NEGATIVE U Benzodiazepines Scrn NEGATIVE Urine Cocaine Screen NEGATIVE U Cannabinoids Screen POSITIVE H Ur Drug Screen Comment Ethyl Alcohol 07/22/20 07/22/20 12:30 12:30 WBC RBC Hgb Hct MCV MCH MCHC RDW Std Deviation RDW Coeff of Wilma Plt Count MPV Immature Gran % (Auto) Neut % (Auto) Lymph % (Auto) Meriwether % (Auto) Eos % (Auto) Baso % (Auto) Absolute Neuts (auto) Absolute Lymphs (auto) Nucleated RBC % Sodium Potassium Chloride Carbon Dioxide Anion Gap BUN Creatinine Estim Creat Clear Calc Est GFR (MDRD) Af Amer Est GFR (MDRD) Non-Af BUN/Creatinine Ratio Glucose Lactic Acid Calcium Total Bilirubin AST ALT Alkaline Phosphatase Total Creatine Kinase Total Protein Albumin Globulin Albumin/Globulin Ratio Prolactin Fld Polynuclear WBCs # 0.113 Fld Polynuclear WBCs % 84.3 Fluid Mononuclear WBCs 0.021 Fld Mononuclear WBCs % 15.7 CSF Appearance SL CLDY H CSF Color RED H CSF WBC 0.134 H CSF RBC 0.49205 H CSF Cell Count Tube # 4 CSF Total Cell Counted 0.134 CSF Comment May follow CSF Glucose 69 CSF Total Protein 46.0 H Urine Opiates Screen Urine Methadone Screen Ur Barbiturates Screen Ur Phencyclidine Scrn Ur Amphetamines Screen U Methamphetamin-MDMA U Benzodiazepines Scrn Urine Cocaine Screen U Cannabinoids Screen Ur Drug Screen Comment Ethyl Alcohol - Medical Decision Making Patient was given intramuscular Ativan for agitation. An IV was established. EKG shows normal sinus rhythm at a rate of 91 with no acute ischemic changes. Labs are notable for white blood cell count of 20,000. Lactic acid 4.6. CPK is normal. Prolactin is elevated. Chemistries otherwise normal. Patient was treated with IV fluids. CT of the head shows chronic changes. Chest x-ray shows no acute findings. Urine drug screen positive for cannabinoids. Alcohol negative. Given patient's encephalopathy and leukocytosis consideration is given to encephalitis or meningitis. Given the patient's confusion he is unable to provide informed consent. He has no contacts except the roommate. Therefore consent is assumed. Patient was placed in the right lateral decubitus position. Skin was anesthetized with 1% lidocaine. Initial attempt at lumbar puncture was unsuccessful. It was recognized that patient had been anesthetized too inferiorly. Patient was repositioned. Patient was given further Ativan for agitation. Repeat attempt was made at the L4-L5 level. Patient had some movement due to agitation so this was a traumatic tap. However roughly 6-8 cc of bloody CSF was obtained. It was sent for fluid analysis. This shows 37 RBC this shows 37 RBCs to 134 WBCs. This is a traumatic tap rather than suggestive of meningitis. Herpes PCR was added on as well. I did speak to the hospitalist who agrees to admit. We have added on pneumonia. ED Disposition - Plan for ED Patient: Disposition: Acute Care Hospital [facility] Diagnosis: Seizure, Encephalopathy acute Referrals: Nick Blackwell MD [Primary Care Provider] -
[2020-07-22] MEDS: LORazepam 2 MG/ML Syringe IM ×2 (09:19→12:01)
[2020-07-22 09:43] LABS: Absolute Lymphocyte Count 1.27 X10^3/uL (0.83-4.51); Absolute Neutrophil Count 17.4 X10^3/uL (2.0-7.7); Basophil# 0.05 X10^3/uL; Basophil% 0.3 % (0-1); Eosinophil# 0.17 X10^3/uL; Eosinophils% 0.9 % (0-5); Hematocrit 47.6 % (40-54); Hemoglobin 15.6 g/dL (13.0-16.5); Lymphocyte # 1.27 X10^3/ul (4.0); Lymphocyte % 6.4 % (19-41); Mean Corp Hgb Conc 32.8 g/dL (32-36); Mean Corpuscular Hgb 30.9 pg (27.0-32.0); Mean Corpuscular Volume 94.3 fL (80-94); Mean Platelet Vol. 8.7 fl (6.2-12.0); Monocyte# 0.95 X10^3/uL; Monocyte% 4.8 % (0-10); NRBC Flagged by Analyzer 0 % (0-5); Neutrophil # 17.39 X10^3/uL (2.7-7.7); Neutrophil % 86.7 % (47-70); Platelet Count 397 K/mm3 (150-450); RBC Distribution Width CV 15.4 % (11.6-14.6); Red Blood Count 5.05 M/mm3 (4.6-6.2)
[2020-07-22 09:57] LABS: AST(SGOT) 12 U/L (15-37); Alanine Aminotransfer ALT/SGPT 17 U/L (16-61); Albumin, Serum 3.6 g/dL (3.2-5.0); Alkaline Phosphatase 63 U/L (45-117); Anion Gap 7 (5-15); BUN 7 mg/dL (7-18); BUN/Creat Ratio 8.3 RATIO (10-20); Calcium,Total 8.1 mg/dL (8.5-10.1); Chloride 105 mmol/L (98-107); Creatinine, Serum 0.85 mg/dL (0.70-1.30); EST Glomerular Filtration Rate 102 mL/min (>60); Est Glom Filt Rate - Afr Amer 123 mL/min (>60); Estimated Creatinine Clearance 111.97 ml/min; Globulin 3.5 g/dL (2.2-4.2); Glucose 76 mg/dL (74-106); Potassium 3.7 mmol/L (3.5-5.1); Protein, Total 7.1 g/dL (6.4-8.2); Sodium Level 136 mmol/L (136-145)
[2020-07-22 10:16] LABS: Alcohol, Blood (Medical)-Serum < 3.0 mg/dL
[2020-07-22 10:17] LABS: Lactic Acid 4.6 mmol/L (0.4-1.9)
--- NOTE | 2020-07-22 10:20 | RAD_ITS ---
STUDY: X-RAY CHEST REASON FOR EXAM: Male, 50 years old. PER ROOMMATE, PT HAD 3 SEIZURES THIS AM. NORMALLY ONLY SEIZURES WHEN DETOXING BUT and quot;HAS NOT DRANK RECENTLY and quot;, COMBATIVE TECHNIQUE: Single AP portable view of the chest. COMPARISON: Comparison is made with prior study dated 05/28/2020. FINDINGS: EKG electrodes are seen. Hyperinflation. The lungs are clear. There is no demonstrated pleural abnormality. Normal size heart. Normal mediastinum and chaparrita. Normal visualized pulmonary arteries. Normal visualized aortic arch and descending thoracic aorta. Normal visualized thoracic spine. Normal visualized ribs, clavicles, and shoulders. There is no demonstrated abnormality of the visualized soft tissue structures of the upper abdomen. RAD/Chest 1 View (Portable) IMPRESSION: Hyperinflation. The lungs are clear. Electronically Signed: Dale Flores, at 10:37 EST , Service support ,
[2020-07-22 10:22] LABS: Amphetamine Urine VISTA NEGATIVE (<1000 ng/mL); Barbiturate Urine VISTA NEGATIVE (< 200 ng/mL); Benzodiazepine Urine VISTA NEGATIVE (< 200 ng/mL); Cocaine Urine VISTA NEGATIVE (< 300 ng/mL); Ecstacy Urine VISTA NEGATIVE (< 500 ng/mL); Methadone Urine VISTA NEGATIVE (< 300 ng/mL); PCP Urine VISTA NEGATIVE (< 25 ng/mL); THC Urine VISTA POSITIVE (< 50 ng/mL); Vista UDS pH Range 5
[2020-07-22] MEDS: 0.9% Normal Saline 1,000 ML 999 ML IV ×2 (10:37→14:09)
[2020-07-22 11:04] LABS: CPK Total, Creatine Kinase 231 U/L (39-308)
[2020-07-22] MEDS: Lidocaine 1% (20 ml mdv) 20 ML Vial 5 ML INFILT (12:01)
[2020-07-22] MEDS: LORazepam 2 MG/ML Syringe IV (12:43)
[2020-07-22 12:57] LABS: Body Fluid Mononuclear WBC # 0.021 10^3/uL; Body Fluid Mononuclear WBC % 15.7 %; Body Fluid Polynuclear WBC # 0.113 10^3/uL; Body Fluid Polynuclear WBC % 84.3 %; Total Cell Count CSF 0.134 10^3/uL; White Count, CSF 0.134 10^3/uL (0.000-0.005)
[2020-07-22 12:59] LABS: Auto B Fluid Analyzer BKGD Ct COUNTS W/IN LIMITS (W/IN LIMITS); CSF Color RED (Colorless); Tested Tube # 4
[2020-07-22 13:00] LABS: Appearance CSF (character) SL CLDY (Clear)
[2020-07-22 13:22] LABS: Glucose Spinal Fluid 69 mg/dL (40-75)
[2020-07-22 13:38] LABS: Reflex Lactate? Y
--- NOTE | 2020-07-22 13:58 | NURSING ---
PCU TERELETSKY ENCEPHALOPATHY
--- NOTE | 2020-07-22 14:13 | NURSING ---
ROOM MATE IS WOLFGANG GROSS PHONE [phone] AND [phone]
[2020-07-22 14:42] LABS: Ammonia < 10.0 umol/L (11-32); Lactic Acid 0.8 mmol/L (0.4-1.9)
--- NOTE | 2020-07-22 15:53 | HP.PCM_ITS ---
Problem List (1) Seizure Status: Acute (2) Encephalopathy acute Status: Acute History of Present Illness Date of Admission: 07/22/20 Chief Complaint: Seizures this a.m., encephalopathy The patient is a 50 year old M was seen in the emergency room at [facility] after being brought in due to 3 seizures that was witnessed by his roommate this morning. Patient has a history of alcoholism but according to his roommate, he has not been drinking in several days. Patient was confused and combative at times in the emergency room, he did not know where he was and could only speak a few words. Patient cannot carry on a conversation. Labs obtained in the emergency room showed a elevated white blood cell count at 20, lactic acid was elevated at 4.6, ammonia level was less than 10, patient's tox screen was positive for cannabinoids, ethanol level was less than 3. Patient had a lumbar puncture performed in the emergency room which was traumatic and showed many RBCs but did show protein of 46 which was high and WBC count was 134. Patient was afebrile, chest x-ray showed no active pulmonary process, brain CT showed chronic involutional changes of the brain. Patient will be admitted to PCU for seizures, I believe he is post ictal at this time, I do not feel he has an active infection anywhere, I have started him on IV Keppra and I will have an EEG performed. It may be necessary in the near future for him to see neurology. Past Medical History Past Medical History (Chronic Problems): Chronic Problems (Last Updated 06/22/20 @ 14:11 by Aundrea Claros) Anxiety and depression (Chronic) GERD (gastroesophageal reflux disease) (Chronic) Alcohol abuse (Chronic) Seizure disorder (Chronic) Tobacco abuse (Chronic) Benign essential hypertension (Chronic) Medical History: Medical History (Last Updated 06/22/20 @ 14:11 by Aundrea Claros) Arthritis M19.90 Back pain M54.9 GI problem R19.8 Hearing problem H91.90 History of alcohol abuse F10.11 History of pneumonia Z87.01 History of skull fracture Z87.81 Seasonal allergies J30.2 Vision problem H54.7 WEARS GLASSES Allergies codeine Allergy (Mild, Verified 06/22/20 14:07) NIGHTMARES hydrocodone bitartrate [From Vicodin] Adverse Reaction (Verified 05/27/20 17:32) Other NIGHTMARES Home Medications: Ambulatory Orders Medication Instructions Recorded quetiapine 25 mg tablet 25 mg PO QHS PRN #30 tab 06/22/20 Sertraline HCl [Zoloft] 50 mg PO DAILY 07/22/20 Surgical History: Surgical History (Last Updated 06/22/20 @ 14:10 by Aundrea Claros) H/O shoulder surgery Z98.890 History of cholecystectomy Z90.49 History of facial surgery Z98.890 Surgical History: cholecystectomy Psychiatric History: Anxiety, Depression Lives: Friends Smoking Status: Current every day smoker Tobacco Use: Cigarettes, Chew Alcohol: Heavy - *Family History Maternal Family History: Family History (Last Updated 06/22/20 @ 14:13 by Aundrea Claros) Mother Suicide Depression Arthritis Anxiety Father Suicide Alcoholism Grandfather Alcoholism History Items: Heart Disease, - - Maternal family history of anxiety and depression with suicide associated. Paternal Family History: Family History (Last Updated 06/22/20 @ 14:13 by Aundrea Claros) Mother Suicide Depression Arthritis Anxiety Father Suicide Alcoholism Grandfather Alcoholism History Items: - - Paternal family history of GERD, peptic ulcer disease, anxiety and depression with possible also from suicide but unclear. Review of Systems Comment: Review of systems was unable be obtained due to patient confusion and probable postictal state VTE Information - Inpt Only VTE Present on Admission: No VTE Mechan Device Prophylaxis: None VTE Pharm Prophylaxis ordered?: No Reason prophylaxis not ordered:: Treatment Not Indicated - Low risk for VTE Patient Problems: Active and Suspected Problems (Last Updated 06/22/20 @ 14:11 by Aundrea Claros) Seizure (Acute) Encephalopathy acute (Acute) - Physical Exam Vitals/I&O's: Vital Signs Temp Pulse Resp BP Pulse Ox 97.6 F L 73 19 H 135/89 H 99 07/22/20 14:05 07/22/20 14:22 07/22/20 14:22 07/22/20 14:22 07/22/20 14:22 Oxygen Delivery Method Room Air Weight: 82.4 kg Body Mass Index (BMI) 25.3 Finger Stick Blood Glucose 153 Intake and Output for Last 24 Hours 07/20/20 07/21/20 07/22/20 23:59 23:59 23:59 Intake Total 1050 / 1050 Balance 1050 / 1050 General: Alert, Confused, Disoriented, - - Patient is combative at times HEENT: Atraumatic, PERRLA, EOMI, Normocephalic Oral: Moist Mucosa Neck: Supple, No JVD, Negative Carotid Bruits, Trachea Midline, Thyroid Normal Size and Texture Lungs: Clear to auscultation, Normal air movement, No rhonchi, No wheeze, No rales Cardiovascular: Regular rate, Regular Rhythm, Normal S1, Normal S2, No murmurs, PMI Normal, No rub noted, No Gallop Abdomen: Bowel Sounds Present, Soft, Non Tender, Non-Distended, No hernias noted Extremities: No clubbing, No cyanosis, No edema, Capillary Refill Less than 3 Seconds Skin: No rashes, No breakdown Musculoskeletal: No Tenderness to Palpation of Joints or Extremities Neurological: Cranial nerves II-XII grossly intact, Neuro grossly intact Psych/Mental Status: Agitated, - - Patient is confused, he is not aware of person place or time Microbiology Past 72 Hours 07/22/20 12:30 Csf, Spinal Fluid Gram Stain - Final Laboratory Results 07/22/20 09:35: WBC 20.0 H, RBC 5.05, Hgb 15.6, Hct 47.6, MCV 94.3 H, MCH 30.9, MCHC 32.8, RDW Std Deviation 53.0 H, RDW Coeff of Wilma 15.4 H, Plt Count 397, MPV 8.7, Immature Gran % (Auto) 0.900, Neut % (Auto) 86.7 H, Lymph % (Auto) 6.4 L, Glacier % (Auto) 4.8, Eos % (Auto) 0.9, Baso % (Auto) 0.3, Absolute Neuts (auto) 17.4 H, Absolute Lymphs (auto) 1.27, Nucleated RBC % 0 07/22/20 09:35: Sodium 136, Potassium 3.7, Chloride 105, Carbon Dioxide 24.0, Anion Gap 7, BUN 7, Creatinine 0.85, Estim Creat Clear Calc 111.97, Est GFR (MDRD) Af Amer 123, Est GFR (MDRD) Non-Af 102, BUN/Creatinine Ratio 8.3 L, Glucose 76, Calcium 8.1 L, Total Bilirubin 0.10 L, AST 12 L, ALT 17, Alkaline Phosphatase 63, Total Protein 7.1, Albumin 3.6, Globulin 3.5, Albumin/Globulin Ratio 1.0 07/22/20 09:35: Ethyl Alcohol < 3.0 07/22/20 09:35: Lactic Acid 4.6 H* 07/22/20 09:35: Total Creatine Kinase 231, Prolactin 25.0 07/22/20 10:03: Urine Opiates Screen NEGATIVE, Urine Methadone Screen NEGATIVE, Ur Barbiturates Screen NEGATIVE, Ur Phencyclidine Scrn NEGATIVE, Ur Amphetamines Screen NEGATIVE, U Methamphetamin-MDMA NEGATIVE, U Benzodiazepines Scrn NEGATIVE, Urine Cocaine Screen NEGATIVE, U Cannabinoids Screen POSITIVE H, Ur Drug Screen Comment 07/22/20 12:30: Fld Polynuclear WBCs # 0.113, Fld Polynuclear WBCs % 84.3, Fluid Mononuclear WBCs 0.021, Fld Mononuclear WBCs % 15.7, CSF Appearance SL CLDY H, CSF Color RED H, CSF WBC 0.134 H, CSF RBC 0.93840 H, CSF Cell Count Tube # 4, CSF Total Cell Counted 0.134, CSF Comment May follow 07/22/20 12:30: CSF Glucose 69, CSF Total Protein 46.0 H 07/22/20 12:30: HSV I DNA PCR Pending, HSV II DNA PCR Pending 07/22/20 14:05: Lactic Acid 0.8 07/22/20 14:05: Ammonia < 10.0 L Current Medications Folic Acid (Folic Acid 1 Mg Tablet) 1 mg PO DAILY [facility], [facility]1983 Sodium Chloride () 1,000 mls @ 150 mls/hr IV .Q6H40M FRANCISCO Levetiracetam () 1,000 mg in 100 mls @ 400 mls/hr IV X1 ONE Stop: 07/22/20 16:04 Levetiracetam 500 mg/ Sodium (Chloride) 105 mls @ 400 mls/hr IV Q12 [facility], [facility]1983 Sertraline HCl (Sertraline 50 Mg Tablet) 50 mg PO DAILY FRANCISCO Sodium Chloride (0.9% Saline Lock 10 Ml Syringe) 10 - 40 ml IV UD PRN PRN Reason: SALINE FLUSH Thiamine HCl (Thiamine Hydrochloride 100 Mg Tablet) 100 mg PO DAILY FRANCISCO Trazodone HCl (Trazodone 50 Mg Tablet) 50 mg PO QHS FOR[facility], [facility]1983 Assessment/Plan All Active Problems (Last Updated 06/22/20 @ 14:11 by Aundrea Claros) Seizure (Acute) Encephalopathy acute (Acute) Alcohol withdrawal (Resolved) Elevated BP without diagnosis of hypertension (Resolved) Hypokalemia (Resolved) Hyponatremia (Resolved) Alcohol withdrawal (Resolved) #1 acute seizure-patient may have a seizure history unrelated to alcohol usage, patient will be admitted to PCU, IV fluids will be administered, he will be observed, EEG will be obtained, patient was placed on IV Keppra. #2 encephalopathy-most likely postictal in nature, continue to observe and provide supportive care #3 history of alcoholism-according to the patient's roommate, he has not had anything to drink in several days. #4 increased lactic acid-probably secondary to seizures #5 increased white blood cell count-probably secondary to seizures #6 white blood cells in spinal fluid, await cultures, I do not think this is significant as to the etiology of his seizures or his encephalopathy. Inpatient E&M: 13994 Init Hosp L3
[2020-07-22] MEDS: 0.9% Normal Saline 1,000 ML 150 ML IV (16:44)
[2020-07-22] MEDS: levETIRAcetam IV 1,000 MG/100 ML BAG 400 MG IV (16:44)
[2020-07-23] VITALS (10 sets, daily range): BP systolic 95–129; BP diastolic 47–77; PULSE 63–99; RESP 16–18; TEMP 36.6–37.1; O2SAT 96–97
[2020-07-23] MEDS: 0.9% Normal Saline 1,000 ML 150 ML IV ×3 (02:49→18:58)
[2020-07-23] MEDS: 0.9% Saline Lock 10 ML Syringe IV (02:50)
[2020-07-23 06:20] LABS: Absolute Neutrophil Count 8.1 X10^3/uL (2.0-7.7); Basophil# 0.04 X10^3/uL; Basophil% 0.4 % (0-1); Eosinophil# 0.07 X10^3/uL; Eosinophils% 0.6 % (0-5); Hematocrit 43.8 % (40-54); Hemoglobin 14.4 g/dL (13.0-16.5); Lymphocyte % 16.7 % (19-41); Mean Corp Hgb Conc 32.9 g/dL (32-36); Mean Corpuscular Hgb 30.7 pg (27.0-32.0); Mean Corpuscular Volume 93.4 fL (80-94); Monocyte# 0.79 X10^3/uL; Monocyte% 7.3 % (0-10); NRBC Flagged by Analyzer 0 % (0-5); Neutrophil # 8.05 X10^3/uL (2.7-7.7); Neutrophil % 74.7 % (47-70); Platelet Count 381 K/mm3 (150-450); RBC Distribution Width CV 15.7 % (11.6-14.6); Red Blood Count 4.69 M/mm3 (4.6-6.2); White Blood Count 10.8 K/mm3 (4.4-11.0)
--- NOTE | 2020-07-23 07:26 | PN_ITS ---
Patient Problems: Active and Suspected Problems (Last Updated 06/22/20 @ 14:11 by Aundrea Claros) Seizure (Acute) Encephalopathy acute (Acute) Objective: No fever or chills. Heart rate and blood pressure are controlled and normal range. Vitals/I&O's: Vital Signs Temp Pulse Resp BP Pulse Ox 97.8 F 71 16 112/75 97 07/23/20 05:02 07/23/20 05:02 07/23/20 05:02 07/23/20 05:02 07/23/20 05:02 Oxygen Delivery Method Room Air Weight: 181 lb 10.574 oz Body Mass Index (BMI) 25.3 Finger Stick Blood Glucose 153 Intake and Output for Last 24 Hours 07/21/20 07/22/20 07/23/20 23:59 23:59 23:59 Intake Total 3520.1 / 3520.1 360 / 360 Output Total 1100 / 1100 Balance 2420.1 / 2420.1 360 / 360 Microbiology Past 72 Hours 07/22/20 12:30 Csf, Spinal Fluid Gram Stain - Final Laboratory Results 07/22/20 09:35: WBC 20.0 H, RBC 5.05, Hgb 15.6, Hct 47.6, MCV 94.3 H, MCH 30.9, MCHC 32.8, RDW Std Deviation 53.0 H, RDW Coeff of Wilma 15.4 H, Plt Count 397, MPV 8.7, Immature Gran % (Auto) 0.900, Neut % (Auto) 86.7 H, Lymph % (Auto) 6.4 L, [place] % (Auto) 4.8, Eos % (Auto) 0.9, Baso % (Auto) 0.3, Absolute Neuts (auto) 17.4 H, Absolute Lymphs (auto) 1.27, Nucleated RBC % 0 07/22/20 09:35: Sodium 136, Potassium 3.7, Chloride 105, Carbon Dioxide 24.0, Anion Gap 7, BUN 7, Creatinine 0.85, Estim Creat Clear Calc 111.97, Est GFR (MDRD) Af Amer 123, Est GFR (MDRD) Non-Af 102, BUN/Creatinine Ratio 8.3 L, Gl ucose 76, Calcium 8.1 L, Total Bilirubin 0.10 L, AST 12 L, ALT 17, Alkaline Phosphatase 63, Total Protein 7.1, Albumin 3.6, Globulin 3.5, Albumin/Globulin Ratio 1.0 07/22/20 09:35: Ethyl Alcohol < 3.0 07/22/20 09:35: Lactic Acid 4.6 H* 07/22/20 09:35: Total Creatine Kinase 231, Prolactin 25.0 07/22/20 10:03: Urine Opiates Screen NEGATIVE, Urine Methadone Screen NEGATIVE, Ur Barbiturates Screen NEGATIVE, Ur Phencyclidine Scrn NEGATIVE, Ur Amphetamines Screen NEGATIVE, U Methamphetamin-MDMA NEGATIVE, U Benzodiazepines Scrn NEGATIVE, Urine Cocaine Screen NEGATIVE, U Cannabinoids Screen POSITIVE H, Ur Drug Screen Comment 07/22/20 12:30: Fld Polynuclear WBCs # 0.113, Fld Polynuclear WBCs % 84.3, Fluid Mononuclear WBCs 0.021, Fld Mononuclear WBCs % 15.7, CSF Appearance SL CLDY H, CSF Color RED H, CSF WBC 0.134 H, CSF RBC 0.21710 H, CSF Cell Count Tube # 4, CSF Total Cell Counted 0.134, CSF Comment May follow 07/22/20 12:30: CSF Glucose 69, CSF Total Protein 46.0 H 07/22/20 12:30: HSV I DNA PCR Pending, HSV II DNA PCR Pending 07/22/20 14:05: Lactic Acid 0.8 07/22/20 14:05: Ammonia < 10.0 L 07/23/20 05:45: WBC 10.8, RBC 4.69, Hgb 14.4, Hct 43.8, MCV 93.4, MCH 30.7, MCHC 32.9, RDW Std Deviation 53.0 H, RDW Coeff of Wilma 15.7 H, Plt Count 381, MPV 9.0, Immature Gran % (Auto) 0.300, Neut % (Auto) 74.7 H, Lymph % (Auto) 16.7 L, [place] % (Auto) 7.3, Eos % (Auto) 0.6, Baso % (Auto) 0.4, Absolute Neuts (auto) 8.1 H, Absolute Lymphs (auto) 1.80, Nucleated RBC % 0 Current Medications Folic Acid (Folic Acid 1 Mg Tablet) 1 mg PO DAILYCM [facility] Sodium Chloride () 1,000 mls @ 150 mls/hr IV .Q6H40M [facility] Last Admin: 07/23/20 02:49 Dose: 150 mls/hr Documented by: Levetiracetam 500 mg/ Sodium (Chloride) 105 mls @ 400 mls/hr IV Q12 [facility] Last Infusion: 07/22/20 21:20 Dose: Infused Documented by: Lorazepam (Lorazepam 2 Mg/Ml Syringe) 2 mg IV Q6H PRN PRN PRN Reason: SEIZURES Nicotine (Nicotine 21 Mg Patch) 21 mg TD DAILY [facility] Last Admin: 07/23/20 06:29 Dose: 21 mg Documented by: Sertraline HCl (Sertraline 50 Mg Tablet) 50 mg PO DAILY [facility] Sodium Chloride (0.9% Saline Lock 10 Ml Syringe) 10 - 40 ml IV UD PRN PRN Reason: SALINE FLUSH Last Admin: 07/23/20 02:50 Dose: 10 ml Documented by: Thiamine HCl (Thiamine Hydrochloride 100 Mg Tablet) 100 mg PO DAILYCM [facility] Trazodone HCl (Trazodone 50 Mg Tablet) 50 mg PO QHS [facility] Last Admin: 07/22/20 23:53 Dose: Not Given Documented by: STROKE Vital Signs/Narrative: Vital Signs Temp Pulse Resp BP Pulse Ox 07/23/20 05:02 97.8 F 71 16 112/75 97 Medical Necessity - Tobacco Use Smoking Status: Current every day smoker Tobacco Use: Cigarettes, Chew Assessment/Plan All Active Problems (Last Updated 06/22/20 @ 14:11 by Aundrea Claros) Seizure (Acute) Encephalopathy acute (Acute) Alcohol withdrawal (Resolved) Elevated BP without diagnosis of hypertension (Resolved) Hypokalemia (Resolved) Hyponatremia (Resolved) Alcohol withdrawal (Resolved) There is a 50-year-old patient gentleman with history of chronic alcohol but not drinking for several days was admitted with seizure episode 3 times witnessed by the roommate. Patient was confused and disoriented. #1 acute seizure-patient may have a seizure history unrelated to alcohol usage, patient will be admitted to PCU, IV fluids will be administered, he will be observed, EEG will be obtained, patient was placed on IV Keppra. #2 encephalopathy-most likely postictal in nature, continue to observe and provide supportive care #3 history of alcoholism-according to the patient's roommate, he has not had anything to drink in several days. #4 increased lactic acid-probably secondary to seizures #5 increased white blood cell count-probably secondary to seizures #6 white blood cells in spinal fluid, await cultures, I do not think this is significant as to the etiology of his seizures or his encephalopathy.
--- NOTE | 2020-07-23 10:00 | CASEMGMT ---
RN CM NOTE: Per report, pt is only oriented x 1 this AM. Unable to complete initial RN CM assessment at this time. Gita ALVESN RN CM
[2020-07-23] MEDS: Thiamine Hydrochloride 100 MG Tablet PO (10:14)
[2020-07-23] MEDS: Sertraline 50 MG Tablet PO (10:14)
[2020-07-23] MEDS: Folic Acid 1 MG Tablet PO (10:14)
--- NOTE | 2020-07-23 12:04 | TELEMED_ITS ---
[facility] Tele[facility] has confirmed receipt of a request for visit. This document confirms receipt of the order initiating the consult. To find the results of the consultation, please view the patient's reports for the scanned Telemed Consult.
[2020-07-23 13:48] LABS: Pathologist Review Reviewed
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
[2020-07-23] MEDS: traZODone 50 MG Tablet PO (22:08)
[2020-07-24] MEDS: 0.9% Normal Saline 1,000 ML 150 ML IV (02:17)
[2020-07-24 03:00] VITALS: PULSE 62
[2020-07-24 04:05] VITALS: BP 130/73; PULSE 62; RESP 16; TEMP 36.5; O2SAT 96
[2020-07-24] MEDS: Enoxaparin 40 MG/0.4 ML Syringe SC (05:31)
[2020-07-24 07:01] VITALS: PULSE 74
[2020-07-24 09:08] VITALS: BP 126/82; PULSE 71; RESP 18; TEMP 37.2; O2SAT 95
[2020-07-24] MEDS: Folic Acid 1 MG Tablet PO (09:13)
[2020-07-24] MEDS: Sertraline 50 MG Tablet PO (09:13)
[2020-07-24] MEDS: Thiamine Hydrochloride 100 MG Tablet PO (09:13)
--- NOTE | 2020-07-24 11:00 | CASEMGMT ---
RN SHANNON Face to Face with patient for initial transition planning/care coordination assessment. RN CM introduced self and role at [facility]. Patient lying in bed, alert and oriented. Patient willing to participate in assessment and is able to answer all questions appropriately. Care providers, pharmacy, and demographics verified. Patient wishes to discharge home, denies need for home health at this time. Patient states he has no further needs or concerns at this time. CM to follow for discharge planning needs that may arise. PCP: Rosalva Specialists: None Preferred Pharmacy: [facility] Insurance: [employer] Prescription Benefit: yes Living Will/HPOA: none LNOK: friend Living Arrangements: Patient lives with a roommate in a one story house with 1 step to enter the home. Patient states he is independent at home. Transportation: Friend DME/HHC: patient denies DME or previous HHC. Disposition Plan: Patient to discharge home with family support and follow-up plans in place. Serina TAYLOR, RN, CM
--- NOTE | 2020-07-24 11:25 | DCINST_ITS ---
- Discharge Diagnoses Current Active Problems: Current Active and Chronic Problems (Last Updated 06/22/20 @ 14:11 by Aundrea Claros) Seizure (Acute) Encephalopathy acute (Acute) You will use the following diet at home:: No restrictions Discharge Activity: Return to Normal Activity Call your doctor if you observe: Shortness of breath, Dizziness, Fainting spells, Chest pain, - - Recurrent seizure Allergies/Adverse Reactions: Allergies codeine Allergy (Mild, Verified 06/22/20 14:07) NIGHTMARES hydrocodone bitartrate [From Vicodin] Adverse Reaction (Verified 05/27/20 17:32) Other NIGHTMARES Medications to take at Discharge quetiapine 25 mg tablet 25 mg PO QHS PRN #30 tab 06/22/20 Sertraline HCl [Zoloft] 50 mg PO DAILY 07/22/20 Levetiracetam [Keppra] 500 mg PO BID #60 tab 07/24/20 The following prescriptions were given: Levetiracetam [Keppra] 500 mg PO BID #60 tab Transmission Status: Pending to [email or web address][id number] Primary Care Physician: Nick Blackwell MD [Primary Care Provider] - Please follow up with your Primary Care Physician in: 1 Week Test Results: Test results from this visit will be discussed in further detail at your follow- up appointment, if applicable. Please Follow Up With: Neurology When: Continue scheduled appointment Proposed Discharge Date: 07/24/20
--- NOTE | 2020-07-24 11:26 | DS.PCM_ITS ---
<Diamante Granados [employer] - Last Filed: 07/24/20 11:32> Discharge Date and Diagnosis - Problem List Patient Problems: Active and Suspected Problems (Last Updated 06/22/20 @ 14:11 by Aundrea Claros) Seizure (Acute) Encephalopathy acute (Acute) Date of Admission: 07/22/20 Date of Discharge: 07/24/20 - Primary Discharge Diagnosis Acute Problems: Active Problems (Last Updated 06/22/20 @ 14:11 by Aundrea Claros) 1. Acute seizure 2. Encephalopathy, secondary #1 3. History of alcoholism 4. Lactic acidosis/leukocytosis-reactive secondary #1. 5. Suspected COPD with extensive tobacco use history 6. Anxiety/depression - Secondary Discharge Diagnosis Chronic Problems: Chronic Problems (Last Updated 06/22/20 @ 14:11 by Aundrea Claros) Anxiety and depression (Chronic) GERD (gastroesophageal reflux disease) (Chronic) Alcohol abuse (Chronic) Seizure disorder (Chronic) Tobacco abuse (Chronic) Benign essential hypertension (Chronic) Hospital Course and Treatment Imaging Results: Diagnostic Data Brain CT 07/22/20 09:12 IMPRESSION: Chronic involutional changes of the brain. Electronically Signed: Dale Flores, at 10:00 EST , Service support , Chest X-Ray 07/22/20 10:20 IMPRESSION: Hyperinflation. The lungs are clear. Electronically Signed: Dale Flores, at 10:37 EST , Service support , [facility] [place] neurology Operations: None Procedures: Electroencephalogram Summary of Care Provided: The patient is a 50 year old M admitted 07/22/2020 due to seizures and encephalopathy. 1. Acute seizure, witnessed at home-history of seizures. Brain CT normal. On IV Keppra during admission. EEG completed and showed no seizure pattern, left hemisphere pathology consistent with prior left-sided traumatic brain injury. Neuro consulted. Suspects seizures related to prior traumatic brain injury 1 year ago. Initiated Keppra 5 mg twice daily at discharge. Patient has upcoming follow-up with neurology in 1 month which he will continue. No further seizure activity during admission. Patient was not previously on epileptic regimen. Follow-up with PCP in 1 week as well. 2. Encephalopathy, suspect secondary #1-resolved. 3. History of alcoholism-denies alcohol use since recent discharge 05/30/2020 related to alcohol withdrawal. 4. Lactic acidosis/leukocytosis-reactive secondary #1. Resolved. 5. Suspected COPD with extensive tobacco use history-encouraged cessation. Recommend outpatient follow-up for formal COPD evaluation. 6. Anxiety/depression-continue sertraline. General: Alert, Cooperative, No apparent distress HEENT: Atraumatic, PERRLA, EOMI, Normocephalic Neck: Supple, No JVD, Negative Carotid Bruits Lungs: Clear to auscultation, Normal air movement Cardiovascular: Regular rate, No murmurs Abdomen: Bowel Sounds Present, Soft, Non Tender, Non-Distended Extremities: No clubbing, No cyanosis, No edema, Capillary Refill Less than 3 Seconds Skin: No rashes, No breakdown Musculoskeletal: No Tenderness to Palpation of Joints or Extremities Neurological: Cranial nerves II-XII grossly intact, Neuro grossly intact Psych/Mental Status: Normal Affect, Appropriate Patient seen and examined prior to discharge. Physical assessment as noted above. Patient is stable for discharge with follow up recommendations as noted above. This patient was seen by DOMINIQUE Baker under the supervision of Dr. Bloom. Patient Problems: Active and Suspected Problems (Last Updated 06/22/20 @ 14:11 by Aundrea Claros) Seizure (Acute) Encephalopathy acute (Acute) - Physical Exam Vitals/I&O's: Vital Signs Temp Pulse Resp BP Pulse Ox 98.9 F 71 18 126/82 H 95 07/24/20 09:08 07/24/20 09:08 07/24/20 09:08 07/24/20 09:08 07/24/20 09:08 Oxygen Delivery Method Room Air Weight: 181 lb 10.574 oz Body Mass Index (BMI) 25.3 Finger Stick Blood Glucose 153 Intake and Output for Last 24 Hours 07/22/20 07/23/20 07/24/20 23:59 23:59 23:59 Intake Total 3520.1 / 3520.1 4042.5 / 4162.5 1672.5 / 1672.5 Output Total 1100 / 1100 200 / 1275 2725 / 2725 Balance 2420.1 / 2420.1 3842.5 / 2887.5 -1052.5 / -1052.5 Microbiology Past 72 Hours 07/22/20 12:30 Csf, Spinal Fluid Gram Stain - Final 07/22/20 12:30 Csf, Spinal Fluid CSF Culture - Preliminary No growth in 48 hours. Laboratory Results 07/22/20 12:30: CSF Comment Reviewed Current Medications Enoxaparin Sodium (Enoxaparin 40 Mg/0.4 Ml Syringe) 40 mg SC DAILY@0600 [facility] Last Admin: 07/24/20 05:31 Dose: 40 mg Documented by: Folic Acid ([facility] 1 Mg Tablet) [facility] Last Admin: 07/24/20 09:13 Dose: 1 mg Documented by: Levetiracetam 500 mg/ Sodium (Chloride) 105 mls @ 400 mls/hr IV Q12 [facility] Last Infusion: 07/24/20 10:53 Dose: Infused Documented by: Lorazepam (Lorazepam 2 Mg/Ml Syringe) 2 mg IV Q6H PRN PRN PRN Reason: SEIZURES Nicotine (Nicotine 21 Mg Patch) 21 mg TD DAILY [facility] Last Admin: 07/24/20 09:13 Dose: 21 mg Documented by: Sertraline HCl (Sertraline 50 Mg Tablet) 50 mg PO DAILY [facility] Last Admin: 07/24/20 09:13 Dose: 50 mg Documented by: Sodium Chloride (0.9% Saline Lock 10 Ml Syringe) 10 - 40 ml IV UD PRN PRN Reason: SALINE FLUSH Last Admin: 07/23/20 02:50 Dose: 10 ml Documented by: Thiamine HCl (Thiamine Hydrochloride 100 Mg Tablet) [facility] Last Admin: 07/24/20 09:13 Dose: 100 mg Documented by: Trazodone HCl (Trazodone 50 Mg Tablet) 50 mg PO QHS [facility] Last Admin: 07/23/20 22:08 Dose: 50 mg Documented by: Discharge Diet: No Restrictions Discharge Activity: Return to Normal Activity Call your doctor if you observe: Shortness of breath, Dizziness, Fainting spells, Chest pain, - - Recurrent seizure Home Medications: Medications to take at Discharge quetiapine 25 mg tablet 25 mg PO QHS PRN #30 tab 06/22/20 Sertraline HCl [Zoloft] 50 mg PO DAILY 07/22/20 Levetiracetam [Keppra] 500 mg PO BID #60 tab 07/24/20 Following Prescriptions Were Given to Patient: Levetiracetam [Keppra] 500 mg PO BID #60 tab Transmission Status: Received by [facility] [employer] Primary Care Physician: Nick Blackwell MD [Primary Care Provider] - Please follow up with your Primary Care Physician in: 1 Week Please Follow Up With: Neurology When: Continue scheduled appointment Disposition: Home Minutes spent on discharge:: 35 Patient Condition:: Stable Medical Necessity - Tobacco Use Smoking Status: Current every day smoker Tobacco Use: Cigarettes, Chew Meaningful Use Info Meaningful Use Diagnoses (Choose all that apply): None applicable <Tera Bloom - Last Filed: 07/24/20 17:37> Discharge Date and Diagnosis - Primary Discharge Diagnosis Acute Problems: Active Problems (Last Updated 06/22/20 @ 14:11 by Aundrea Claros) Seizure (Acute) Encephalopathy acute (Acute) - Secondary Discharge Diagnosis Chronic Problems: Chronic Problems (Last Updated 06/22/20 @ 14:11 by Aundrea Claros) Anxiety and depression (Chronic) GERD (gastroesophageal reflux disease) (Chronic) Alcohol abuse (Chronic) Seizure disorder (Chronic) Tobacco abuse (Chronic) Benign essential hypertension (Chronic) Hospital Course and Treatment Summary of Care Provided: This patient was seen in conjunction with [employer], Diamante. I have independently interviewed and examined the patient and reviewed pertinent history, examination findings, laboratory and plan of management. I have reviewed the note and agree with the documented findings with the few additional points. In brief, patient is 50-year-old gentleman with history of chronic smoking and chronic alcohol use since teenage came to ED with 3 episodes of seizures witnessed by room partner. Patient currently on IV Keppra. Patient had LP done shows reddish, RBC 11640, WBC 134, protein 46, glucose 69, neutrophil 44%, mononuclear 15%. CSF culture was negative for 48 hours. The patient clinical presentation does not correlate with any infectious cause. His encephalopathy most probably related to seizure which is resolved. CT head shows chronic involutional changes of the brain and focal encephalomalacia in left temporal lobe. Patient had EEG done which showed focal cortical dysfunction with focal slowing, low amplitude polymorphic delta rhythm in left hemisphere maximum temporal lobe superimposed on normal posterior background rhythm. No epileptiform discharges or seizure patterns. Patient had MRI done on 07/07/2020 which reported no MRI evidence of vestibular schwannoma but encephalomalacia and gliosis of the lateral left temporal lobe consistent with traumatic brain injury. Patient had [facility] neurology consult done. EEG showed findings of focal slowing of left hemisphere explained by traumatic brain injury and MRI findings correlate with focal slowing on EEG. No evidence of encephalitis. Neurologist agreed for Keppra. Chronic alcohol use and chronic cigarette smoking/nicotine use: Patient denies he has not drinking alcohol for few months. ALT and AST are in normal range. 3.6. Ammonia level less than 10. Lactic acidosis most probably secondary to hypoxia/anaerobic metabolism from seizure. Leukocytosis resolved. Probably reactive Discharge medication reconciliation done. Discharge follow-up instructions completed. Discharge process discussed with the patient and all questions were answered to patient's satisfaction. Prescription for Keppra given. Total time spent, exact 35 minutes on discharge meds reconciliation, examination, coordination of care with nurses and ancillary staff, review of imaging and blood test and discussion with the patient on follow-up instructions [] Clinical Impression(s) from Imaging Studies Brain CT 07/22/20 09:12 IMPRESSION: Chronic involutional changes of the brain. Chest X-Ray 07/22/20 10:20 IMPRESSION: Hyperinflation. The lungs are clear. Electronically Signed: Dale Flores, at 10:37 EST , Service support , - Physical Exam Vitals/I&O's: Vital Signs Temp Pulse Resp BP Pulse Ox 98.9 F 71 18 126/82 H 95 07/24/20 09:08 07/24/20 09:08 07/24/20 09:08 07/24/20 09:08 07/24/20 09:08 Oxygen Delivery Method Room Air Weight: 181 lb 10.574 oz Body Mass Index (BMI) 25.3 Finger Stick Blood Glucose 153 Intake and Output for Last 24 Hours 07/22/20 07/23/20 07/24/20 23:59 23:59 23:59 Intake Total 3520.1 / 3520.1 4042.5 / 4162.5 2632.5 / 2632.5 Output Total 1100 / 1100 200 / 1275 4075 / 4075 Balance 2420.1 / 2420.1 3842.5 / 2887.5 -1442.5 / -1442.5 Microbiology Past 72 Hours 07/22/20 12:30 Csf, Spinal Fluid Gram Stain - Final 07/22/20 12:30 Csf, Spinal Fluid CSF Culture - Preliminary No growth in 48 hours. Inpatient E&M: 69938 Disch Hosp
== END 2020-07-24 12:28 | disposition home or self-care (01) | DRG 53 ==
LOC: ED 12:46 → PCU 14:03
PROVIDERS: Admitting Provider Internal Medicine; Emergency Provider Emergency Medicine; PCP Internal Medicine; Visit Provider Internal Medicine
DX: G40.909 Epilepsy, unspecified, not intractable, without status epilepticus (principal); F32.9 Major depressive disorder, single episode, unspecified; F41.9 Anxiety disorder, unspecified; F10.20 Alcohol dependence, uncomplicated; K21.9 Gastro-esophageal reflux disease without esophagitis; I10 Essential (primary) hypertension; F17.210 Nicotine dependence, cigarettes, uncomplicated; M19.90 Unspecified osteoarthritis, unspecified site; Z87.820 Personal history of traumatic brain injury
CPT/HCPCS: 36415; 62270; 70450; 71045; 80053; 80307; 80320; 82140; 82550; 82945; 83605; 84146; 84157; 85025; 87070; 87205; 87529; 89050; 89051; 93005; 95819; 99285; J7030; P9612; A4216; G0480; J0696

== ENCOUNTER 2021-01-27 16:40 | Emergency (ER) | payer MEDICAID, SELFPAY ==
[2021-01-04 10:13] VITALS: BMI 26.4
[2021-01-27] VITALS (15 sets, daily range): BP systolic 97–191; BP diastolic 70–163; PULSE 73–135; RESP 14–40; TEMP 35.7–36.6; O2SAT 88–100; BMI 27.8
[2021-01-27] MEDS: Naloxone 2 MG/2 ML Syringe IV (16:45)
--- NOTE | 2021-01-27 16:46 | ED.RN ---
SEIZURE LIKE ACTIVITY NOTED LASTING APPROX 45 SECONDS, ED MD AT BEDSIDE, MEDS ORDERED.
[2021-01-27] MEDS: LORazepam 2 MG/ML Syringe 1 MG IV (16:47)
[2021-01-27] MEDS: Dextrose 50%-Water 25 GM/50 ML DISP.SYRIN IV (16:49)
[2021-01-27] MEDS: Etomidate 20 MG/10 ML Vial IV (16:50)
[2021-01-27] MEDS: Succinylcholine Chloride 200 MG/10 ML SYRINGE 100 MG IV (16:50)
[2021-01-27] MEDS: Propofol 10MG/Ml 1,000 MG/100 ML Bottle 5.4 MG CONT INF (16:53)
[2021-01-27] MEDS: Midazolam 2 MG/2 ML Syringe IV ×2 (16:56→18:16)
[2021-01-27] MEDS: Vecuronium Bromide 10 MG/10 ML Vial IV ×2 (16:58→18:31)
--- NOTE | 2021-01-27 16:58 | RAD_ITS ---
STUDY: X-RAY - ABDOMEN/PELVIS REASON FOR EXAM: Male, 50 years old. NG PLACEMENT TECHNIQUE: Single AP view of the abdomen / pelvis. COMPARISON: None. FINDINGS: Normal visualized lung bases. Enteric tube tip is likely within the stomach. There is an unremarkable bowel gas pattern. There is no demonstrated free abdominal air. The visualized liver, spleen and kidneys are grossly normal in size and morphology. Normal soft tissue structures. Normal visualized osseous structures. RAD/Abdomen Single View (Portable) IMPRESSION: Enteric tube tip left mid abdomen likely within the stomach. Electronically Signed: Joseph Darnell MD at 17:55 EDT Tel , Service support ,
--- NOTE | 2021-01-27 16:59 | EKG12_ITS ---
Test Reason : UNRESPONSIVE Blood Pressure : / mmHG Vent. Rate : 143 BPM Atrial Rate : 144 BPM P-R Int : 132 ms QRS Dur : 082 ms QT Int : 278 ms P-R-T Axes : 076 074 069 degrees QTc Int : 429 ms Sinus tachycardia Nonspecific ST abnormality Abnormal ECG Confirmed by YOUNG BONNER, EVENS ([id number]), health editor AURELIO TALBOT ([id number]) on 01/31/2021 1:55:46 PM Referred By: Confirmed By:EVENS VIDAL MD
[2021-01-27] MEDS: 0.9% Normal Saline 1,000 ML 1000 ML IV (17:00)
--- NOTE | 2021-01-27 17:00 | RAD_ITS ---
STUDY: X-RAY CHEST REASON FOR EXAM: Male, 50 years old. PLACEMENT VERIFICATION TECHNIQUE: Single frontal view of the chest. COMPARISON: 07/22/2020 FINDINGS: Endotracheal tube tip is in the midthoracic trachea. Enteric tube enters the stomach. The lungs are clear and expanded. There is no demonstrated pleural abnormality. Normal size heart. Normal mediastinum and chaparrita. Normal visualized pulmonary arteries. Normal visualized aortic arch and descending thoracic aorta. Normal visualized thoracic spine. Normal visualized ribs, clavicles, and shoulders. There is no demonstrated abnormality of the visualized soft tissue structures of the upper abdomen. RAD/Chest 1 View (Portable) IMPRESSION: Endotracheal tube tip is in the midthoracic trachea. Enteric tube enters the stomach. Electronically Signed: Joseph Darnell MD at 17:51 EDT Tel , Service support ,
--- NOTE | 2021-01-27 17:02 | EDS_ITS ---
HPI History of Present Illness Chief Complaint: Unresponsive Narrative Narrative: Patient is brought into the emergency room by EMS in an unresponsive state no history was available, the paramedics were called as the patient's vehicle was apparently parked somewhere somebody noticed he was in the car apparently banging his head against the?or some other type activity paramedics made access to the vehicle the patient was unresponsive his blood sugar was 85 his blood pressure was elevated to about 170 he was brought to the emergency department. There were no medications in the vehicle no other issues no other findings by EMS no other history. On arrival to the emergency department he was actively seizing with fixed gaze to the right, he was unresponsive the painful stimuli, his pupils were 4 mm and nonreactive, his blood sugar was 85, he was given Narcan D50 he was given Ativan he was prepared for intubation with standard technique hyperoxygenation he did not regain any consciousness continue to have signs of seizure activity and he was intubated using standard technique without difficulty 7 ET tube passed through cords.difficulty pulse ox 3 9 9% easy capture at 5% chest x-ray is ordered, he is receiving medications for sedation [facility] Medical History (Updated 01/27/21 @ 17:09 by Chinyere Farley) Arthritis Back pain Chronic headaches GI problem Hearing problem History of alcohol abuse History of pneumonia History of skull fracture Seasonal allergies Seizure Vision problem Home Medications quetiapine 25 mg tablet 25 mg PO QHS #60 tab 10/22/20 [Rx Last Taken Unknown] ibuprofen 200 mg capsule 200 mg PO Q6H PRN 11/24/20 [History Last Taken Unknown] sertraline 100 mg tablet 200 mg PO DAILY #180 tablet 11/24/20 [Rx Last Taken Unknown] amitriptyline 25 mg tablet 25 mg PO QHS 01/04/21 [History Last Taken Unknown] levetiracetam 1,000 mg tablet 1,000 mg PO BID 01/04/21 [History Last Taken Unknown] sumatriptan succinate 100 mg tablet See Rx Instructions PO .COMPLEX 01/04/21 [History Last Taken Unknown] albuterol sulfate 90 mcg/actuation aerosol inhaler 1 - 2 puff INHALATION Q6H PRN #8.5 g 01/10/21 [Rx Last Taken Unknown] Allergy/AdvReac Type Severity Reaction Status Date / Time codeine Allergy Mild NIGHTMARES Verified 01/04/21 10:09 hydrocodone bitartrate AdvReac Other Verified 01/04/21 10:09 [From Vicodin] Family History Mother Suicide Depression Arthritis Anxiety Father Suicide Alcoholism Grandfather Alcoholism Surgical History H/O shoulder surgery History of cholecystectomy History of facial surgery Social History (Updated 11/24/20 @ 12:[address] Nick Blackwell MD) Smoking Status: Unknown if ever smoked alcohol intake: never ROS ROS ED ROS Narrative Review of systems are not available as the patient cannot provide history history is via EMS above Review of Systems ROS Unobtainable: due to encephalopathy, due to endotracheal tube, due to mental condition, due to mental status and other EXAM Physical Exam Narrative Exam Narrative: He had fixed gaze to the right he had some bruising to the face he had some secretions in his mouth, he was unresponsive to painful stimuli he seizure activity involving the extremities, no obvious signs of trauma his breath sounds were symmetric post intubation his abdomen seems soft, no response to verbal or's painful stimuli Const Vital Signs: 01/27/21 16:42 01/27/21 16:54 01/27/21 17:00 Temperature 98 F Temperature Source Temporal Pulse Rate 110 H 102 H Respiratory Rate 40 H 14 Respiratory Effort Short of Breath Labored Respiratory Pattern Normal Tachypnea Blood Pressure 170/93 H Blood Pressure Mean 118 Blood Pressure Source Blood Pressure Position Blood Pressure Location Pulse Ox 88 96 Oxygen Delivery Method Room Air Mechanical Ventilator Oxygen Flow Rate (L/min) Fraction of Inspired Oxygen (FIO2) 50 01/27/21 17:05 01/27/21 17:30 01/27/21 17:54 Temperature 96.5 F L 96.3 F L Temperature Source Core Core Pulse Rate 108 H 119 H 132 H Respiratory Rate 14 15 16 Respiratory Effort Respiratory Pattern Blood Pressure 146/77 H 154/102 H 191/96 H Blood Pressure Mean 100 119 127 Blood Pressure Source Blood Pressure Position Blood Pressure Location Pulse Ox 95 97 97 Oxygen Delivery Method Mechanical Ventilator Mechanical Ventilator Mechanical Ventilator Oxygen Flow Rate (L/min) Fraction of Inspired Oxygen (FIO2) 01/27/21 18:00 01/27/21 18:10 01/27/21 18:18 Temperature 96.6 F L Temperature Source Core Pulse Rate 135 H 106 H Respiratory Rate 16 22 H 16 Respiratory Effort Respiratory Pattern Normal Blood Pressure 182/105 H 189/163 H Blood Pressure Mean 130 171 Blood Pressure Source Monitor Blood Pressure Position Semi-Fowlers Blood Pressure Location Right Arm Pulse Ox 96 95 Oxygen Delivery Method Mechanical Ventilator Mechanical Ventilator Oxygen Flow Rate (L/min) Fraction of Inspired Oxygen (FIO2) 50 01/27/21 18:30 01/27/21 19:06 01/27/21 19:47 Temperature 96.6 F L Temperature Source Core Pulse Rate 87 83 73 Respiratory Rate 16 16 16 Respiratory Effort Respiratory Pattern Blood Pressure 105/75 97/70 104/75 Blood Pressure Mean 85 79 84 Blood Pressure Source Blood Pressure Position Blood Pressure Location Pulse Ox 95 93 98 Oxygen Delivery Method Mechanical Ventilator Mechanical Ventilator Mechanical Ventilator Oxygen Flow Rate (L/min) 60 60 Fraction of Inspired Oxygen (FIO2) MDM MDM MDM Narrative Medical decision making narrative: Differentials rather extensive seizure disorder seizure history is unclear how long he was in the car, will need to obtain prior records continue to control his airway manage seizure process head [facility] chest x-ray are all generally unremarkable, his labs are generally unremarkable he has a long battery of labs see those results his white count 16,000 lactate 8.8 blood gas 7.4 PCO2 40 PO2 70 IV fluids IV antibiotics blood and urine cultures were obtained Please note prior hospital records suggest alcohol abuse seizure history alcohol withdrawal see those notes Spoke with the hospitalist at this facility they report they do not feel they can admit the patient as he would require continuous EEG monitoring which is not available, spoke with [facility] they did not have capacity to accept the patient at this time, spoke with [facility] ICU attending they have capacity to accept the patient they have accepted the patient after long lengthy discussion of the above, he will be transported either by helicopter or by [facility] critical care ground services. He is resting comfortably on the vent hemodynamically stable undergoing sedation protocol Final impression Status epilepticus, respiratory failure requiring intubation Transfer to [facility] for critical care and neurologic management Lab Data Labs: Laboratory Results - last 24 hr 01/27/21 01/27/21 01/27/21 16:58 16:58 16:58 WBC 16.4 H RBC 4.78 Hgb 14.4 Hct 47.5 MCV 99.4 H MCH 30.1 MCHC 30.3 L RDW Std Deviation 53.6 H RDW Coeff of Wilma 14.4 Plt Count 418 MPV 9.1 Immature Gran % (Auto) 1.400 H Neut % (Auto) 55.0 Lymph % (Auto) 29.5 [place] % (Auto) 7.4 Eos % (Auto) 6.1 H Baso % (Auto) 0.6 Absolute Neuts (auto) 9.0 H Absolute Lymphs (auto) 4.84 H Nucleated RBC % 0 PT 14.6 INR 1.2 Sodium 137 Potassium 4.1 Chloride 106 Carbon Dioxide 14.0 L Anion Gap 17 H BUN 8 Creatinine 1.02 Estim Creat Clear Calc 93.30 Est GFR (MDRD) Af Amer 100 Est GFR (MDRD) Non-Af 82 BUN/Creatinine Ratio 7.8 L Glucose 257 H Lactic Acid Calcium 8.0 L Total Bilirubin 0.10 L AST 22 ALT 17 Alkaline Phosphatase 67 Total Creatine Kinase Troponin I < 0.015 B-Natriuretic Peptide Total Protein 7.3 Albumin 3.6 Globulin 3.7 Albumin/Globulin Ratio 1.0 Urine Color Urine Clarity Urine pH Ur Specific Craig Urine Protein Urine Glucose (UA) Urine Ketones Urine Occult Blood Urine Nitrite Urine Bilirubin Urine Urobilinogen Ur Leukocyte Esterase Urine RBC Urine WBC Ur Squamous Epith Cells Urine Bacteria Urine Mucus Urine Opiates Screen Urine Methadone Screen Ur Barbiturates Screen Ur Phencyclidine Scrn Ur Amphetamines Screen U Methamphetamin-MDMA U Benzodiazepines Scrn Urine Cocaine Screen U Cannabinoids Screen Ur Drug Screen Comment Ethyl Alcohol 01/27/21 01/27/21 01/27/21 16:58 16:58 16:58 WBC RBC Hgb Hct MCV MCH MCHC RDW Std Deviation RDW Coeff of Wilma Plt Count MPV Immature Gran % (Auto) Neut % (Auto) Lymph % (Auto) [place] % (Auto) Eos % (Auto) Baso % (Auto) Absolute Neuts (auto) Absolute Lymphs (auto) Nucleated RBC % PT INR Sodium Potassium Chloride Carbon Dioxide Anion Gap BUN Creatinine Estim Creat Clear Calc Est GFR (MDRD) Af Amer Est GFR (MDRD) Non-Af BUN/Creatinine Ratio Glucose Lactic Acid Calcium Total Bilirubin AST ALT Alkaline Phosphatase Total Creatine Kinase 310 H Troponin I B-Natriuretic Peptide 70.6 Total Protein Albumin Globulin Albumin/Globulin Ratio Urine Color Urine Clarity Urine pH Ur Specific Craig Urine Protein Urine Glucose (UA) Urine Ketones Urine Occult Blood Urine Nitrite Urine Bilirubin Urine Urobilinogen Ur Leukocyte Esterase Urine RBC Urine WBC Ur Squamous Epith Cells Urine Bacteria Urine Mucus Urine Opiates Screen Urine Methadone Screen Ur Barbiturates Screen Ur Phencyclidine Scrn Ur Amphetamines Screen U Methamphetamin-MDMA U Benzodiazepines Scrn Urine Cocaine Screen U Cannabinoids Screen Ur Drug Screen Comment Ethyl Alcohol < 3.0 01/27/21 01/27/21 01/27/21 17:05 17:05 17:18 WBC RBC Hgb Hct MCV MCH MCHC RDW Std Deviation RDW Coeff of Wilma Plt Count MPV Immature Gran % (Auto) Neut % (Auto) Lymph % (Auto) [place] % (Auto) Eos % (Auto) Baso % (Auto) Absolute Neuts (auto) Absolute Lymphs (auto) Nucleated RBC % PT INR Sodium Potassium Chloride Carbon Dioxide Anion Gap BUN Creatinine Estim Creat Clear Calc Est GFR (MDRD) Af Amer Est GFR (MDRD) Non-Af BUN/Creatinine Ratio Glucose Lactic Acid 8.8 H* Calcium Total Bilirubin AST ALT Alkaline Phosphatase Total Creatine Kinase Troponin I B-Natriuretic Peptide Total Protein Albumin Globulin Albumin/Globulin Ratio Urine Color Yellow Urine Clarity Sl. Cloudy Urine pH 5.0 Ur Specific Craig 1.025 Urine Protein 30 H Urine Glucose (UA) 1000 H Urine Ketones 5 H Urine Occult Blood 50 H Urine Nitrite Negative Urine Bilirubin Negative Urine Urobilinogen Normal Ur Leukocyte Esterase Negative Urine RBC 0 SEEN Urine WBC 0 SEEN Ur Squamous Epith Cells 0 SEEN Urine Bacteria 0 SEEN Urine Mucus 0 SEEN Urine Opiates Screen NEGATIVE Urine Methadone Screen NEGATIVE Ur Barbiturates Screen NEGATIVE Ur Phencyclidine Scrn NEGATIVE Ur Amphetamines Screen NEGATIVE U Methamphetamin-MDMA NEGATIVE U Benzodiazepines Scrn NEGATIVE Urine Cocaine Screen NEGATIVE U Cannabinoids Screen POSITIVE H Ur Drug Screen Comment Ethyl Alcohol ABG Data ABG results: ABG 01/27/21 01/27/21 18:00 18:56 Specimen Type ART ART Sample Site R Radial R Radial pH 7.14 L* 7.30 L Bicarbonate Actual 18.1 L 20.1 L Total CO2 20 21 Base Excess -11 L -6 L O2 Saturation 95 92 L O2 % 50 50 ABG pCO2 53.6 H 41.4 ABG pO2 100 70 L Zander Test Positive Positive Respiration Rate 14 16 O2 Delivery Device Adult Vent Adult Vent Vent Mode AC AC Tidal Volume 450 450 POC PEEP 5 5 Crit Call To/Read Back Yes Blood Gas Notified Whom dr. yanes Radiography Diagnostic Testing: Radiology Impression KUB X-Ray 01/27/21 16:58 IMPRESSION: Enteric tube tip left mid abdomen likely within the stomach. Electronically Signed: Joseph Darnell MD at 17:55 EDT Tel , Service support , Chest X-Ray 01/27/21 17:00 IMPRESSION: Endotracheal tube tip is in the midthoracic trachea. Enteric tube enters the stomach. Electronically Signed: Jospeh Darnell MD at 17:51 EDT Tel , Service support , Brain CT 01/27/21 17:30 IMPRESSION: Chronic involutional changes of the brain. Electronically Signed: Francisco Morales MD at 17:55 EDT Tel , Service support , Critical Care Time Critical Care Time: Yes Critical care time (excluding procedures): 30-74 minutes (60min) Discharge Plan Triage Chief Complaint: Unresponsive ED Provider: Arias Yanes Dx/Rx/DC Orders Prescriptions: No Action quetiapine [Seroquel] 25 mg tablet 25 mg PO QHS Qty: 60 RF: 2 ibuprofen 200 mg capsule 200 mg PO Q6H PRNRF: 0 sertraline 100 mg tablet 200 mg PO DAILY Qty: 180 RF: 1 levetiracetam [Keppra] 1,000 mg tablet 1,000 mg PO BID RF: 0 amitriptyline 25 mg tablet 25 mg PO QHS RF: 0 sumatriptan succinate 100 mg tablet See Rx Instructions PO .COMPLEX RF: 0 albuterol sulfate [ProAir HFA] 90 mcg/actuation HFA aerosol inhaler 1 - 2 puff INHALATION Q6H PRN (Reason: shortness of breath or wheezing) Qty: 8.5 RF: 1 Primary Care Provider: Nick Blackwell
[2021-01-27 17:09] LABS: Absolute Lymphocyte Count 4.84 X10^3/uL (0.83-4.51); Basophil% 0.6 % (0-1); Eosinophils% 6.1 % (0-5); Hematocrit 47.5 % (40-54); Hemoglobin 14.4 g/dL (13.0-16.5); Lymphocyte # 4.84 X10^3/ul (0.83-4.51); Lymphocyte % 29.5 % (19-41); Mean Corp Hgb Conc 30.3 g/dL (32-36); Mean Corpuscular Hgb 30.1 pg (27.0-32.0); Mean Corpuscular Volume 99.4 fL (80-94); Mean Platelet Vol. 9.1 fl (6.2-12.0); Monocyte# 1.22 X10^3/uL; Monocyte% 7.4 % (0-10); NRBC Flagged by Analyzer 0 % (0-5); Neutrophil # 9.02 X10^3/uL (2.7-7.7); Platelet Count 418 K/mm3 (150-450); RBC Distribution Width CV 14.4 % (11.6-14.6); RBC Distribution Width SD 53.6 fl (35.1-43.9); Red Blood Count 4.78 M/mm3 (4.6-6.2); White Blood Count 16.4 K/mm3 (4.4-11.0)
[2021-01-27 17:14] LABS: Bacteria 0 SEEN /hpf (None Seen); Mucous, Urine 0 SEEN /hpf (<or=2+); Red Blood Cells-Urine 0 SEEN /hpf (0-5); Squamous Epithelial Cells - UA 0 SEEN /hpf (0-5); White Blood Cells 0 SEEN /hpf (0-5)
--- NOTE | 2021-01-27 17:30 | CT_ITS ---
STUDY: CT BRAIN WITHOUT CONTRAST REASON FOR EXAM: Male, 50 years old. seizure RADIATION DOSAGE (If Supplied By Facility): CTDIvol = ( 44.99 ) mGy, DLP = ( 829.85 ) mGycm TECHNIQUE: Transaxial CT imaging of the brain was performed without administration of intravenous contrast material. Individualized dose optimization techniques were used for this CT. COMPARISON: 07/22/2020 FINDINGS: Normal soft tissue structures. Normal calvarium. There is mild cerebral atrophy with widening of the extra-axial spaces and ventricular dilatation. Normal white matter tracts of the cerebral hemispheres. Normal basal ganglia and thalami. Normal brainstem. Normal cerebellum. There is no intracranial hemorrhage. No change in the encephalomalacia within the lateral left temporal lobe consistent with a chronic infarct. Normal visualized paranasal sinuses. CT/Brain/Head without Contrast IMPRESSION: Chronic involutional changes of the brain. Electronically Signed: Francisco Morales MD at 17:55 EDT Tel , Service support ,
[2021-01-27 17:32] LABS: International Normalized Ratio 1.2; Prothrombin Time (Protime)PT. 14.6 SECONDS (11.7-14.9)
[2021-01-27 17:45] LABS: Color, Urine Yellow (Yellow); Glucose, Dipstick 1000 mg/dl (Normal); Ketone-Dipstick 5 mg/dl (Negative); Leukocyte Esterase-Dipstick Negative /ul (Negative); Nitrite-Dipstick Negative (Negative); Occult Blood-Urine 50 /ul (Negative); Protein-Dipstick 30 mg/dl (Negative); Specific Gravity, Urine 1.025 (1.002-1.030); Urine Bilirubin Dipstick Negative (Negative); Urine Clarity Sl. Cloudy (Clear); Urine Urobilinogen Normal (Normal)
[2021-01-27 17:48] LABS: Alcohol, Blood (Medical)-Serum < 3.0 mg/dL
[2021-01-27 17:49] LABS: BNP,B-Type NATRIURETIC PEPTIDE 70.6 pg/mL (0-100)
[2021-01-27 17:52] LABS: AST(SGOT) 22 U/L (15-37); Alanine Aminotransfer ALT/SGPT 17 U/L (16-61); Albumin, Serum 3.6 g/dL (3.2-5.0); Alkaline Phosphatase 67 U/L (45-117); Anion Gap 17 (5-15); BUN 8 mg/dL (7-18); BUN/Creat Ratio 7.8 RATIO (10-20); Chloride 106 mmol/L (98-107); Creatinine, Serum 1.02 mg/dL (0.70-1.30); EST Glomerular Filtration Rate 82 mL/min (>60); Est Glom Filt Rate - Afr Amer 100 mL/min (>60); Globulin 3.7 g/dL (2.2-4.2); Glucose 257 mg/dL (74-106); Potassium 4.1 mmol/L (3.5-5.1); Protein, Total 7.3 g/dL (6.4-8.2); Sodium Level 137 mmol/L (136-145)
[2021-01-27] MEDS: levETIRAcetam IV 1,000 MG/100 ML BAG 400 MG IV (17:55)
[2021-01-27 18:00] LABS: CPK Total, Creatine Kinase 310 U/L (39-308)
[2021-01-27 18:05] LABS: Allen Test Positive; Base Excess -11 mmol/L (-2 to +2); Bicarbonate 18.1 mmol/L (22-26); Blood Gas Specimen Type ART; FI02 50; Mode AC; O2 Delivery Device Adult Vent; PEEP 5; PO2 100 mmHG (75-100); RR 14; SITE R Radial; SO2 95 % (95-99); Total Carbon Dioxide 20 mmol/L; Vt 450; pCO2 53.6 mmHg (35-45); pH 7.14 (7.35-7.45)
[2021-01-27 18:07] LABS: Lactic Acid 8.8 mmol/L (0.4-1.9)
--- NOTE | 2021-01-27 18:08 | ED.RN ---
THIS NURSE SPOKE WITH WOLFGANG ON THE PHONE AND GAVE UPDATE ON PATIENT CONDITION. INFORMED THE PT HAS NOT REGAIN CONSCIOUSNESS IN THE ER. HAD A SEIZURE IN THE ER. INTUBATED TO HELP PROTECT AIRWAY. PER WOLFGANG, PT WAS C/O CHEST PAIN EARLIER TODAY. THEN WHEN WOLFGANG SAW THE PATIENT LAST THE PATIENT ACTED A LITTLE CONFUSED. RECENT CHANGES TO MEDICATIONS BY NEUROLOGIST
[2021-01-27 18:12] LABS: Amphetamine Urine VISTA NEGATIVE (<1000 ng/mL); Barbiturate Urine VISTA NEGATIVE (< 200 ng/mL); Benzodiazepine Urine VISTA NEGATIVE (< 200 ng/mL); Cocaine Urine VISTA NEGATIVE (< 300 ng/mL); Ecstacy Urine VISTA NEGATIVE (< 500 ng/mL); Methadone Urine VISTA NEGATIVE (< 300 ng/mL); PCP Urine VISTA NEGATIVE (< 25 ng/mL); THC Urine VISTA POSITIVE (< 50 ng/mL); Vista UDS pH Range 5
[2021-01-27] MEDS: Propofol 200 MG/20 ML Vial 20 MG IV BOLUS (18:16)
[2021-01-27 19:00] LABS: Allen Test Positive; Base Excess -6 mmol/L (-2 to +2); Bicarbonate 20.1 mmol/L (22-26); Blood Gas Specimen Type ART; FI02 50; Mode AC; O2 Delivery Device Adult Vent; PEEP 5; PO2 70 mmHG (75-100); RR 16; SITE R Radial; SO2 92 % (95-99); Total Carbon Dioxide 21 mmol/L; Vt 450; pCO2 41.4 mmHg (35-45)
--- NOTE | 2021-01-27 20:13 | ED.RN ---
patient accepted to [facility] 3[facility] bed 103 bed 1 nurse to nurse [phone]
--- NOTE | 2021-01-27 20:42 | ED.RN ---
brandy so called and updated and let him know patient being transferred
[2021-01-27 21:25] LABS: Reflex Lactate? Y
--- NOTE | 2021-01-27 21:40 | ED.RN ---
report given to [facility] flight crew.
== END 2021-01-27 21:58 | disposition short-term general hospital (02) ==
PROVIDERS: Emergency Provider Emergency Medicine; PCP Internal Medicine
DX: G40.901 Epilepsy, unspecified, not intractable, with status epilepticus (principal); J96.90 Respiratory failure, unspecified, unspecified whether with hypoxia or hypercapnia
CPT/HCPCS: 31500; 31720; 36600; 51702; 70450; 71045; 74018; 80053; 80307; 81001; 82077; 82550; 82803; 83605; 83880; 84484; 85025; 85610; 87040; 87086; 93005; 94002; 96365; 96366; 96367; 96375; 96376; 99251; 99285; J7030; J7050; A4216; G0463

== ENCOUNTER 2021-03-11 13:48 | Observation (INO) | payer MEDICAID, SELFPAY ==
[2021-01-27 16:42] VITALS: BMI 27.8
[2021-03-11] VITALS (11 sets, daily range): BP systolic 98–143; BP diastolic 70–85; PULSE 76–101; RESP 17–22; TEMP 35.9–36.7; O2SAT 94–99; BMI 24.3; BMI 31.2; BMI 29.4
--- NOTE | 2021-03-11 13:57 | EKG12_ITS ---
Test Reason : UNRESPONSIVE Blood Pressure : / mmHG Vent. Rate : 106 BPM Atrial Rate : 106 BPM P-R Int : 138 ms QRS Dur : 086 ms QT Int : 342 ms P-R-T Axes : 070 055 054 degrees QTc Int : 454 ms Sinus tachycardia Otherwise normal ECG Confirmed by SHADI BONNER, FRANKLIN ([id number]), order editor AURELIO TALBOT ([id number]) on 03/15/2021 10:18:26 AM Referred By: PL Confirmed By:FRANKLIN HSU MD
[2021-03-11 14:00] LABS: Bedside Glucose 96 mg/dL (70-110)
[2021-03-11 14:07] LABS: Absolute Lymphocyte Count 4.76 X10^3/uL (0.83-4.51); Absolute Neutrophil Count 8.6 X10^3/uL (2.0-7.7); Basophil# 0.09 X10^3/uL; Basophil% 0.6 % (0-1); Eosinophil# 0.85 X10^3/uL; Eosinophils% 5.5 % (0-5); Hematocrit 54.1 % (40-54); Hemoglobin 16.4 g/dL (13.0-16.5); Lymphocyte # 4.76 X10^3/ul (0.83-4.51); Lymphocyte % 30.8 % (19-41); Mean Corp Hgb Conc 30.3 g/dL (32-36); Mean Corpuscular Hgb 30.3 pg (27.0-32.0); Mean Corpuscular Volume 99.8 fL (80-94); Monocyte# 1.03 X10^3/uL; Monocyte% 6.7 % (0-10); NRBC Flagged by Analyzer 0 % (0-5); Neutrophil # 8.63 X10^3/uL (2.7-7.7); Neutrophil % 55.7 % (47-70); Platelet Count 488 K/mm3 (150-450); RBC Distribution Width CV 14.1 % (11.6-14.6); Red Blood Count 5.42 M/mm3 (4.6-6.2); White Blood Count 15.5 K/mm3 (4.4-11.0)
[2021-03-11] MEDS: 0.9% Normal Saline 1,000 ML 1000 ML IV (14:08)
--- NOTE | 2021-03-11 14:09 | ED.RN ---
Addendum entered by Perla Menjivar 03/11/21 14:11: Martin's number : [phone] Original Note: partner Martin called to ED for update. stated last month, pt was transferred to [facility] but requested [facility] or [facility] since pt's neurologist is in [place] (Dr. Kvng Conn). also wanted to make it noted that pt has not drank alcohol in 2.5 years so this seizure is known to not be related to that. Martin appreciative and will call for updates.
--- NOTE | 2021-03-11 14:18 | CT_ITS ---
STUDY: CT BRAIN WITHOUT CONTRAST REASON FOR EXAM: Male, 50 years old. Seizure RADIATION DOSAGE (If Supplied By Facility): CTDIvol = ( 44.99 ) mGy, DLP = ( 947.97 ) mGycm TECHNIQUE: Transaxial CT imaging of the brain was performed without administration of intravenous contrast material. Individualized dose optimization techniques were used for this CT. COMPARISON: 01/27/2021 FINDINGS: Normal soft tissue structures. Normal calvarium. There is mild cerebral atrophy with widening of the extra-axial spaces and ventricular dilatation. Normal white matter tracts of the cerebral hemispheres. Normal basal ganglia and thalami. Normal brainstem. Normal cerebellum. There is no intracranial hemorrhage. Encephalomalacia within the left temporal lobe consistent with chronic infarct. Normal visualized paranasal sinuses. CT/Brain/Head without Contrast IMPRESSION: Chronic involutional changes of the brain. Electronically Signed: Francisco Morales MD at 14:41 EDT Tel , Service support ,
[2021-03-11 14:20] LABS: AST(SGOT) 18 U/L (15-37); Alanine Aminotransfer ALT/SGPT 18 U/L (16-61); Albumin, Serum 4.5 g/dL (3.2-5.0); Alkaline Phosphatase 77 U/L (45-117); Anion Gap 26 (5-15); BUN 10 mg/dL (7-18); BUN/Creat Ratio 8.9 RATIO (10-20); Calcium,Total 9.5 mg/dL (8.5-10.1); Chloride 99 mmol/L (98-107); Creatinine, Serum 1.12 mg/dL (0.70-1.30); EST Glomerular Filtration Rate 74 mL/min (>60); Est Glom Filt Rate - Afr Amer 89 mL/min (>60); Estimated Creatinine Clearance 77.19 ml/min; Globulin 4.5 g/dL (2.2-4.2); Glucose 98 mg/dL (74-106); Potassium 3.7 mmol/L (3.5-5.1); Sodium Level 137 mmol/L (136-145)
--- NOTE | 2021-03-11 14:22 | RAD_ITS ---
STUDY: X-RAY CHEST REASON FOR EXAM: Male, 50 years old. SOB TECHNIQUE: Single AP portable view of the chest. COMPARISON: 01/27/2021 FINDINGS: Interval removal of endotracheal tube and nasogastric tube. The lungs are clear and expanded. There is no demonstrated pleural abnormality. Normal size heart. Normal mediastinum and chaparrita. Normal visualized pulmonary arteries. Normal visualized aortic arch and descending thoracic aorta. Normal visualized thoracic spine. Healed fracture the left clavicle. There is no demonstrated abnormality of the visualized soft tissue structures of the upper abdomen. RAD/Chest 1 View (Portable) IMPRESSION: No active disease. Electronically Signed: Francisco Morales MD at 14:33 EDT Tel , Service support ,
[2021-03-11 14:33] LABS: Alcohol, Blood (Medical)-Serum < 3.0 mg/dL
--- NOTE | 2021-03-11 15:24 | EX.ED.DYSGE1 ---
HPI History of Present Illness Chief Complaint: Seizure Informant: other (Medical chart and staff who recall this patient being here recently.) Narrative Narrative: Patient has a history of seizures. I am waiting to get family into talk to them. He was seen here recently and actually intubated for seizures. It sounds like he was transferred to [facility]. He does not drink and has not had any alcohol in 2 years. He has a history of drinking in the past though. His Keppra looks like it was increased from 1000 twice daily to 1500 twice daily. He had 1 and possibly 2 seizures today. He was given benzodiazepines by EMS prior to arrival. He has not had a seizure since here. Because of him being postictal and not able to get much history from him at all and this very much limits our review of systems and detailed history at this time. [facility] Medical History Arthritis Back pain Chronic headaches GI problem Hearing problem History of alcohol abuse History of pneumonia History of skull fracture Seasonal allergies Seizure Vision problem Home Medications ibuprofen 200 mg capsule 200 mg PO Q6H PRN 11/24/20 [History Last Taken Unknown] sertraline 100 mg tablet 200 mg PO DAILY #180 tablet 11/24/20 [Rx Last Taken Unknown] amitriptyline 25 mg tablet 25 mg PO QHS 01/04/21 [History Last Taken Unknown] levetiracetam 1,000 mg tablet 1,500 mg PO BID 01/04/21 [History Last Taken Unknown] sumatriptan succinate 100 mg tablet See Rx Instructions PO .COMPLEX 01/04/21 [History Last Taken Unknown] albuterol sulfate 90 mcg/actuation aerosol inhaler 1 - 2 puff INHALATION Q6H PRN #8.5 g 01/10/21 [Rx Last Taken Unknown] folic acid 1 mg PO DAILY 03/11/21 [History Last Taken Unknown] thiamine HCl (vitamin B1) 100 mg PO DAILY 03/11/21 [History Last Taken Unknown] Allergy/AdvReac Type Severity Reaction Status Date / Time codeine Allergy Mild NIGHTMARES Verified 01/04/21 10:09 hydrocodone bitartrate AdvReac Other Verified 01/04/21 10:09 [From Vicodin] Family History Mother Suicide Depression Arthritis Anxiety Father Suicide Alcoholism Grandfather Alcoholism Surgical History H/O shoulder surgery History of cholecystectomy History of facial surgery Social History Smoking Status: Unknown if ever smoked alcohol intake: never ROS ROS ED Review of Systems ROS Unobtainable: due to mental status and other Details: At this point, I am not able to get any review of systems due to him being immediately postictal from a seizure as well as some sedation from medications already received. EXAM Physical Exam Const Vital Signs: 03/11/21 13:49 03/11/21 14:00 03/11/21 14:42 Temperature 97.5 F L Temperature Source Temporal Pulse Rate 101 H 95 Respiratory Rate 22 H 22 H Blood Pressure 143/74 H 120/77 Blood Pressure Mean 97 91 Pulse Ox 95 94 99 Oxygen Delivery Method Nasal Cannula Nasal Cannula Nasal Cannula Oxygen Flow Rate (L/min) 2 2 2 03/11/21 15:19 03/11/21 15:46 03/11/21 16:35 Temperature 96.6 F L Temperature Source Temporal Pulse Rate 80 80 83 Respiratory Rate 17 19 H 20 H Blood Pressure 98/76 112/76 125/85 H Blood Pressure Mean 83 88 98 Pulse Ox 94 95 96 Oxygen Delivery Method Nasal Cannula Room Air Room Air Oxygen Flow Rate (L/min) 2 Positive well nourished and well developed General Appearance ED: well developed and NAD; Negative for cyanotic or diaphoretic HEENT Negative for trauma or tenderness Eyes PERRL and EOMs intact bilaterally Eyes Narrative: Eyes do not have fixed deviation. Pupils are about 3 mm and reactive to light. Neck no JVD Chest Wall inspection of chest normal Resp normal respiratory effort Resp Narrative: Breathing is somewhat deep consistent with recent seizure due to metabolic acidosis. However his lungs are clear. Effort and Inspection: other Cardio regular rate and regular rhythm GI normal to inspection, nondistended, normoactive bowel sounds and non-tender Palpation: soft Extremity normal to inspection General Extremety ED: Negative for edema or tenderness General Extremity: Negative for edema Neuro Neuro Narrative: Patient is breathing on his own. Hives all extremities but is not responding to commands. Psych Psych Narrative: Unable to assess. Skin no rashes or lesions noted Skin Narrative: No petechiae or vesicles. MDM MDM MDM Narrative Medical decision making narrative: Patient was rechecked. He will wake up when I talked to him. He will say a few words but is not giving me a lot of information. But he is doing better. His vitals are good. We are waiting for results. Nursing staff was able to contact his life partner. Evidently this patient has been doing well since his last admission. His Keppra was increased from 1000-15 100 twice a day. He is not drinking. He has not had any seizures until today. He was acting totally normal up to that. He evidently does have a history of prolonged confusion after seizures. He also has a history of aggression when he first comes out of them but we have not seen that today. The indication is that he has been taking his meds appropriately. I still cannot get that from the patient. He is much better. He is talking to me now but it somewhat nonsensical. He occasionally will make sense. He is more awake. He did respond that he has to urinate. This patient although improving, is not awake alert and appropriate enough to go home at this time. I will send off a Keppra level at this point. I will give him a dose of Keppra here as I cannot verify for sure if he got his oral dosages today. I discussed the case with hospitalist and the patient will be placed in PCU. Lab Data Labs: Laboratory Results - last 24 hr 03/11/21 03/11/21 03/11/21 13:55 13:55 13:55 WBC 15.5 H RBC 5.42 Hgb 16.4 Hct 54.1 H MCV 99.8 H MCH 30.3 MCHC 30.3 L RDW Std Deviation 52.0 H RDW Coeff of Wilma 14.1 Plt Count 488 H MPV 9.0 Immature Gran % (Auto) 0.700 Neut % (Auto) 55.7 Lymph % (Auto) 30.8 [place] % (Auto) 6.7 Eos % (Auto) 5.5 H Baso % (Auto) 0.6 Absolute Neuts (auto) 8.6 H Absolute Lymphs (auto) 4.76 H Nucleated RBC % 0 Sodium 137 Potassium 3.7 Chloride 99 Carbon Dioxide 12.0 L Anion Gap 26 H BUN 10 Creatinine 1.12 Estim Creat Clear Calc 77.19 Est GFR (MDRD) Af Amer 89 Est GFR (MDRD) Non-Af 74 BUN/Creatinine Ratio 8.9 L Glucose 98 Calcium 9.5 Total Bilirubin 0.20 AST 18 ALT 18 Alkaline Phosphatase 77 Total Protein 9.0 H Albumin 4.5 Globulin 4.5 H Albumin/Globulin Ratio 1.0 Ethyl Alcohol < 3.0 POC Glucose 03/11/21 13:57 WBC RBC Hgb Hct MCV MCH MCHC RDW Std Deviation RDW Coeff of Wilma Plt Count MPV Immature Gran % (Auto) Neut % (Auto) Lymph % (Auto) [place] % (Auto) Eos % (Auto) Baso % (Auto) Absolute Neuts (auto) Absolute Lymphs (auto) Nucleated RBC % Sodium Potassium Chloride Carbon Dioxide Anion Gap BUN Creatinine Estim Creat Clear Calc Est GFR (MDRD) Af Amer Est GFR (MDRD) Non-Af BUN/Creatinine Ratio Glucose Calcium Total Bilirubin AST ALT Alkaline Phosphatase Total Protein Albumin Globulin Albumin/Globulin Ratio Ethyl Alcohol POC Glucose 96 Radiography Diagnostic Testing: Radiology Impression Brain CT 03/11/21 14:18 IMPRESSION: Chronic involutional changes of the brain. Electronically Signed: Francisco Morales MD at 14:41 EDT Tel , Service support , Chest X-Ray 03/11/21 14:22 IMPRESSION: No active disease. Electronically Signed: Francisco Morales MD at 14:33 EDT Tel , Service support , Discharge Plan Dx/Rx/DC Orders Clinical Impression: Seizure, Post-ictal state Disposition Disposition: Acute Care Hospital [facility]
--- NOTE | 2021-03-11 17:03 | PCM.HP.STD ---
HPI - General General Date of Admission: 03/11/21 HPI Narrative LAURA HENSLEY, is a 50 M who presents with seizure in a postictal state. He has had a history of seizures in the past and was recently increased on his Keppra from 1000 to 1500 mg twice daily. This is obtained through chart review as he is still post ictal and had also received Versed and the ambulance on the way here to the hospital. He does not appear to be seizing any longer and he is arousable but it is hard to have a conversation with him. [facility] Medical History Arthritis Back pain Chronic headaches GI problem Hearing problem History of alcohol abuse History of pneumonia History of skull fracture Seasonal allergies Seizure Vision problem Home Medications ibuprofen 200 mg capsule 200 mg PO Q6H PRN 11/24/20 [History Last Taken Unknown] sertraline 100 mg tablet 200 mg PO DAILY #180 tablet 11/24/20 [Rx Last Taken Unknown] amitriptyline 25 mg tablet 25 mg PO QHS 01/04/21 [History Last Taken Unknown] levetiracetam 1,000 mg tablet 1,500 mg PO BID 01/04/21 [History Last Taken Unknown] sumatriptan succinate 100 mg tablet See Rx Instructions PO .COMPLEX 01/04/21 [History Last Taken Unknown] albuterol sulfate 90 mcg/actuation aerosol inhaler 1 - 2 puff INHALATION Q6H PRN #8.5 g 01/10/21 [Rx Last Taken Unknown] folic acid 1 mg PO DAILY 03/11/21 [History Last Taken Unknown] thiamine HCl (vitamin B1) 100 mg PO DAILY 03/11/21 [History Last Taken Unknown] Allergy/AdvReac Type Severity Reaction Status Date / Time codeine Allergy Mild NIGHTMARES Verified 01/04/21 10:09 hydrocodone bitartrate AdvReac Other Verified 01/04/21 10:09 [From Vicodin] Family History Mother Suicide Depression Arthritis Anxiety Father Suicide Alcoholism Grandfather Alcoholism Surgical History H/O shoulder surgery History of cholecystectomy History of facial surgery Social History Smoking Status: Unknown if ever smoked alcohol intake: never ROS Review of Systems ROS Unobtainable: other Details: Postictal state and Versed Vital Signs Vital Signs Vital Signs: 03/11/21 13:49 03/11/21 14:00 03/11/21 14:42 Temperature 97.5 F L Temperature Source Temporal Pulse Rate 101 H 95 Respiratory Rate 22 H 22 H Blood Pressure 143/74 H 120/77 Blood Pressure Mean 97 91 Pulse Ox 95 94 99 Oxygen Delivery Method Nasal Cannula Nasal Cannula Nasal Cannula Oxygen Flow Rate (L/min) 2 2 2 03/11/21 15:19 03/11/21 15:46 03/11/21 16:35 Temperature 96.6 F L Temperature Source Temporal Pulse Rate 80 80 83 Respiratory Rate 17 19 H 20 H Blood Pressure 98/76 112/76 125/85 H Blood Pressure Mean 83 88 98 Pulse Ox 94 95 96 Oxygen Delivery Method Nasal Cannula Room Air Room Air Oxygen Flow Rate (L/min) 2 Weight Weight: 205 lb 11.06 oz Body Mass Index (BMI) 31.2 Physical Exam Const no apparent distress Constitutional Narrative: Arousable HEENT normocephalic and moist oral mucous membranes Eyes PERRL and conjunctivae normal Neck supple and no JVD Resp normal respiratory effort, no retractions, no use of accessory muscles and clear to auscultation bilaterally Auscultation: Negative for crackles, rales, rhonchi or wheezes Cardio regular rate, regular rhythm, S1 normal heart sound, S2 normal heart sound and no murmurs GI soft to palpation, non-tender and non-distended; Negative for hepatosplenomegaly Extremity no clubbing, cyanosis or edema Skin no rashes or lesions noted Neuro no focal motor deficits and no sensory deficits noted Psych affect normal Appearance: appropriate Results Lab / Micro Data Result Diagrams: 03/11/21 13:55 03/11/21 13:55 Labs: Laboratory Results - last 24 hr 03/11/21 13:55: WBC 15.5 H, RBC 5.42, Hgb 16.4, Hct 54.1 H, MCV 99.8 H, MCH 30.3, MCHC 30.3 L, RDW Std Deviation 52.0 H, RDW Coeff of Wilma 14.1, Plt Count 488 H, MPV 9.0, Immature Gran % (Auto) 0.700, Neut % (Auto) 55.7, Lymph % (Auto) 30.8, [place] % (Auto) 6.7, Eos % (Auto) 5.5 H, Baso % (Auto) 0.6, Absolute Neuts (auto) 8.6 H, Absolute Lymphs (auto) 4.76 H, Nucleated RBC % 0 03/11/21 13:55: Sodium 137, Potassium 3.7, Chloride 99, Carbon Dioxide 12.0 L, Anion Gap 26 H, BUN 10, Creatinine 1.12, Estim Creat Clear Calc 77.19, Est GFR (MDRD) Af Amer 89, Est GFR (MDRD) Non-Af 74, BUN/Creatinine Ratio 8.9 L, Glucose 98, Calcium 9.5, Total Bilirubin 0.20, AST 18, ALT 18, Alkaline Phosphatase 77, Total Protein 9.0 H, Albumin 4.5, Globulin 4.5 H, Albumin/Globulin Ratio 1.0 03/11/21 13:55: Ethyl Alcohol < 3.0 03/11/21 13:57: POC Glucose [address] 03/11/21 14:18 IMPRESSION: Chronic involutional changes of the brain. Electronically Signed: Francisco Morales MD at 14:41 EDT Tel , Service support , Chest X-Ray 03/11/21 14:22 IMPRESSION: No active disease. Electronically Signed: Francisco Morales MD at 14:33 EDT Tel , Service support , Assessment & Plan Assessment/Plan (1) Seizure: (2) Post-ictal state: PLAN: 1. Postictal state from seizure/history of seizures -He was recently transferred to tertiary care center secondary to being in status epilepticus and was intubated. -At that time he was increased to 1500 mg twice daily of Keppra -We will obtain a Keppra level and start him on 1500 mg twice daily IV -If he has another seizure may need to seek transfer to tertiary care facility that has onsite neurology with 24-hour EEG monitoring capabilities. -Seizure precautions -We will make him n.p.o. until he wakes up little bit more at that point he can be given a diet and take his oral medications -All lab derangements are consistent with recent seizure 2. Anxiety/depression -Continue with his Zoloft and his amitriptyline 3. History of migraines -Stable -Continue with Imitrex DVT: SCDs Charges/Coding Visit Charges OBSV E&M: 74800 Initial observation care L3
[2021-03-11] MEDS: levETIRAcetam IV 1,000 MG/100 ML BAG 400 MG IV (17:05)
[2021-03-11] MEDS: Haloperidol Lactate 5 MG/ML Vial IV (17:34)
--- NOTE | 2021-03-11 17:35 | ED.RN ---
pt very confused. not alert to person place or time. repeating self. wanting to leave. unsure of any of the events of his admission. repeats self. I need to speak to the lady but unable to state name. will call Martin and update.
[2021-03-11] MEDS: 0.9% Normal Saline 1,000 ML 100 ML IV (18:46)
--- NOTE | 2021-03-11 19:01 | NURSING ---
BASIC SHIFT CLINICAL FINDINGS DONE. PT POSTICTAL, DROWSY, RESTING WITH EYES CLOSED. WHEN AROUSED W/VERBAL STIMULI PT TRIES TO COVER UP WITH BLANKETS AND REPEATS I'M COLD. WARM BLANKET GIVEN. WHEN ASKED QUESTIONS PT SPEAKING NONSENSICAL. NO DISTRESS NOTED AT REST. WILL CONT TO MONITOR
[2021-03-11 19:47] LABS: Amphetamine Urine VISTA NEGATIVE (<1000 ng/mL); Barbiturate Urine VISTA NEGATIVE (< 200 ng/mL); Benzodiazepine Urine VISTA POSITIVE (< 200 ng/mL); Cocaine Urine VISTA NEGATIVE (< 300 ng/mL); Ecstacy Urine VISTA NEGATIVE (< 500 ng/mL); Methadone Urine VISTA NEGATIVE (< 300 ng/mL); PCP Urine VISTA NEGATIVE (< 25 ng/mL); THC Urine VISTA POSITIVE (< 50 ng/mL); Vista UDS pH Range 6
[2021-03-11] MEDS: Amitriptyline 25 MG Tablet PO (21:26)
[2021-03-12 03:00] VITALS: PULSE 73
[2021-03-12 03:30] VITALS: BP 127/71; PULSE 72; RESP 20; TEMP 36.6; O2SAT 95
[2021-03-12] MEDS: 0.9% Normal Saline 1,000 ML 100 ML IV (04:11)
[2021-03-12 07:20] VITALS: PULSE 59
[2021-03-12 07:36] LABS: Absolute Neutrophil Count 8.1 X10^3/uL (2.0-7.7); Basophil# 0.05 X10^3/uL; Basophil% 0.5 % (0-1); Eosinophil# 0.27 X10^3/uL; Eosinophils% 2.5 % (0-5); Hematocrit 45.6 % (40-54); Hemoglobin 15.1 g/dL (13.0-16.5); Lymphocyte % 16.4 % (19-41); Mean Corp Hgb Conc 33.1 g/dL (32-36); Mean Corpuscular Volume 90.5 fL (80-94); Mean Platelet Vol. 8.9 fl (6.2-12.0); Monocyte# 0.73 X10^3/uL; Monocyte% 6.6 % (0-10); NRBC Flagged by Analyzer 0 % (0-5); Neutrophil # 8.09 X10^3/uL (2.7-7.7); Neutrophil % 73.6 % (47-70); Platelet Count 430 K/mm3 (150-450); RBC Distribution Width CV 14.2 % (11.6-14.6); RBC Distribution Width SD 47.6 fl (35.1-43.9); Red Blood Count 5.04 M/mm3 (4.6-6.2)
[2021-03-12 08:13] LABS: Anion Gap 6 (5-15); BUN 6 mg/dL (7-18); BUN/Creat Ratio 10.2 RATIO (10-20); Calcium,Total 8.1 mg/dL (8.5-10.1); Chloride 113 mmol/L (98-107); Creatinine, Serum 0.59 mg/dL (0.70-1.30); EST Glomerular Filtration Rate 154 mL/min (>60); Est Glom Filt Rate - Afr Amer 187 mL/min (>60); Estimated Creatinine Clearance 146.53 ml/min; Glucose 93 mg/dL (74-106); Sodium Level 140 mmol/L (136-145)
--- NOTE | 2021-03-12 09:36 | PN.HOSP_ITS ---
Subjective Subjective Much more alert today, knows any had a seizure, the details. He does confirm that he takes his medications appropriately at home. No new issues overnight Objective Data Objective Data Vital Signs: Vital Signs Temp Pulse Resp BP Pulse Ox 97.8 F 59 L 20 H 127/71 H 95 03/12/21 03:30 03/12/21 07:20 03/12/21 03:30 03/12/21 03:30 03/12/21 03:30 Oxygen Flow Rate (L/min) 2 Oxygen Delivery Method Room Air Weight: 193 lb 5.526 oz Body Mass Index (BMI) 29.4 Intake & Output: Intake and Output for Last 24 Hours 03/11/21 03/12/21 03/13/21 03:59 03:59 03:59 Intake Total 1245 / 1245 941.67 / 941.67 Output Total 1125 / 1125 400 / 400 Balance 120 / 120 541.67 / 541.67 Lab / Micro Data Result Diagrams: 03/12/21 07:08 03/12/21 07:08 Labs: Laboratory Results - last 24 hr 03/11/21 13:55: WBC 15.5 H, RBC 5.42, Hgb 16.4, Hct 54.1 H, MCV 99.8 H, MCH 30.3, MCHC 30.3 L, RDW Std Deviation 52.0 H, RDW Coeff of Wilma 14.1, Plt Count 488 H, MPV 9.0, Immature Gran % (Auto) 0.700, Neut % (Auto) 55.7, Lymph % (Auto) 30.8, [place] % (Auto) 6.7, Eos % (Auto) 5.5 H, Baso % (Auto) 0.6, Absolute Neuts (auto) 8.6 H, Absolute Lymphs (auto) 4.76 H, Nucleated RBC % 0 03/11/21 13:55: Sodium 137, Potassium 3.7, Chloride 99, Carbon Dioxide 12.0 L, Anion Gap 26 H, BUN 10, Creatinine 1.12, Estim Creat Clear Calc 77.19, Est GFR (MDRD) Af Amer 89, Est GFR (MDRD) Non-Af 74, BUN/Creatinine Ratio 8.9 L, Glucose 98, Calcium 9.5, Total Bilirubin 0.20, AST 18, ALT 18, Alkaline Phosphatase 77, Total Protein 9.0 H, Albumin 4.5, Globulin 4.5 H, Albumin/Globulin Ratio 1.0 03/11/21 13:55: Ethyl Alcohol < 3.0 03/11/21 13:57: POC Glucose 96 03/11/21 19:22: Urine Opiates Screen NEGATIVE, Urine Methadone Screen NEGATIVE, Ur Barbiturates Screen NEGATIVE, Ur Phencyclidine Scrn NEGATIVE, Ur Amphetamines Screen NEGATIVE, U Methamphetamin-MDMA NEGATIVE, U Benzodiazepines Scrn POSITIVE H, Urine Cocaine Screen NEGATIVE, U Cannabinoids Screen POSITIVE H, Ur Drug Screen Comment 03/12/21 07:08: WBC 11.0, RBC 5.04, Hgb 15.1, Hct 45.6, MCV 90.5 D, MCH 30.0, MCHC 33.1 D, RDW Std Deviation 47.6 H, RDW Coeff of Wilma 14.2, Plt Count 430, MPV 8.9, Immature Gran % (Auto) 0.400, Neut % (Auto) 73.6 H, Lymph % (Auto) 16.4 L, [place] % (Auto) 6.6, Eos % (Auto) 2.5, Baso % (Auto) 0.5, Absolute Neuts (auto) 8.1 H, Absolute Lymphs (auto) 1.80, Nucleated RBC % 0 03/12/21 07:08: Sodium 140, Potassium 4.0, Chloride 113 H, Carbon Dioxide 21.0, Anion Gap 6, BUN 6 L, Creatinine 0.59 L, Estim Creat Clear Calc 146.53, Est GFR (MDRD) Af Amer 187, Est GFR (MDRD) Non-Af 154, BUN/Creatinine Ratio 10.2, Glucose 93, Calcium 8.1 L Radiography Diagnostic Testing: Radiology Impression Brain CT 03/11/21 14:18 IMPRESSION: Chronic involutional changes of the brain. Electronically Signed: Francisco Morales MD at 14:41 EDT Tel , Service support , Chest X-Ray 03/11/21 14:22 IMPRESSION: No active disease. Electronically Signed: Francisco Morales MD at 14:33 EDT Tel , Service support , Physical Exam Const alert, oriented x3 and no apparent distress Constitutional Narrative: Arousable HEENT normocephalic and moist oral mucous membranes Eyes PERRL and conjunctivae normal Neck supple and no JVD Resp normal respiratory effort, no retractions, no use of accessory muscles and clear to auscultation bilaterally Auscultation: Negative for crackles, rales, rhonchi or wheezes Cardio regular rate, regular rhythm, S1 normal heart sound, S2 normal heart sound and no murmurs GI soft to palpation, non-tender and non-distended; Negative for hepatosplenomegaly Extremity no clubbing, cyanosis or edema Skin no rashes or lesions noted Neuro no focal motor deficits and no sensory deficits noted Psych affect normal Appearance: appropriate Assessment & Plan Assessment/Plan (1) Seizure: (2) Post-ictal state: PLAN: 1. Postictal state from seizure/history of seizures -He was recently transferred to tertiary care center secondary to being in status epilepticus and was intubated. -At that time he was increased to 1500 mg twice daily of Keppra -We will obtain a Keppra level and start him on 1500 mg twice daily IV -If he has another seizure may need to seek transfer to tertiary care facility that has onsite neurology with 24-hour EEG monitoring capabilities. -Seizure precautions -Obtain the EEG and consult teleneurology today -We will do a bedside swallow/dysphagia screen and if he passes can place him on a regular diet and restart his home meds -All lab derangements are consistent with recent seizure 2. Anxiety/depression -Continue with his Zoloft and his amitriptyline 3. History of migraines -Stable -Continue with Imitrex DVT: SCDs Charges/Coding Visit Charges OBSV E&M: 24646 Subsequent observation care L2
[2021-03-12 09:59] VITALS: BP 116/69; PULSE 69; RESP 16; TEMP 36.8; O2SAT 94
--- NOTE | 2021-03-12 10:11 | PCM.DC ---
Discharge Instructions Diet Discharge Diet: No restrictions Activity Discharge Activity: May Not Drive (Until follow-up with neurology and cleared from a seizure standpoint) Dressing / Incision Call your doctor if you observe: Fever of 101 or Higher, Shortness of breath, Dizziness, Swelling in the ankles, Chest pain and Increased palpitations (irregular heartbeat) Follow Up Care Test Results: Test results from this visit will be discussed in further detail at your follow-up appointment, if applicable. Discharge Plan Admission Admit Date/Time: 03/11/21 17:02 Attending Provider: Clint Brasher Primary Care Provider: Nick Blackwell Instructions Patient Instructions: Seizures and Epilepsy Additional Instructions / Restrictions: Follow-up with your outpatient neurologist to follow-up with a Keppra level results as this may indicate a need to increase dosing. Discharge Orders/Prescriptions Prescriptions: Continued sertraline 100 mg tablet 200 mg PO DAILY Qty: 180 RF: 1 levetiracetam [Keppra] 1,000 mg tablet 1,500 mg PO BID RF: 0 amitriptyline 25 mg tablet 25 mg PO QHS RF: 0 sumatriptan succinate 100 mg tablet See Rx Instructions PO .COMPLEX RF: 0 thiamine HCl (vitamin B1) 100 mg Tablet 100 mg PO DAILY RF: 0 folic acid 1 mg Tablet 1 mg PO DAILY RF: 0 acetaminophen [Tylenol Extra Strength] 500 mg Tablet 1,000 mg PO DAILY PRN (Reason: Pain) RF: 0 albuterol sulfate [ProAir HFA] 90 mcg/actuation HFA aerosol inhaler 1 - 2 puff INHALATION Q6H PRN (Reason: shortness of breath or wheezing) Qty: 8.5 RF: 1 Referrals / Follow Up: Nick Blackwell MD [Primary Care Provider] - In 1 Week Disposition Disposition (needs filled in before D/C Order can be placed): Home, Self Care
--- NOTE | 2021-03-12 10:17 | DS.PCM_ITS ---
Providers Date of Admission: 03/11/21 Primary Care Physician: Dr. Nick Blackwell MD Reason For Visit: SEIZURE, PROLONGED POSTICTAL PERIOD Diagnosis Discharge Diagnosis (1) Seizure: Status: Acute Code(s): R56.9 - Unspecified convulsions (2) Post-ictal state: Status: Acute Code(s): R56.9 - Unspecified convulsions Medications at Discharge Home Medications sertraline 100 mg tablet 200 mg PO DAILY #180 tablet 11/24/20 amitriptyline 25 mg tablet 25 mg PO QHS 01/04/21 levetiracetam 1,000 mg tablet 1,500 mg PO BID 01/04/21 sumatriptan succinate 100 mg tablet See Rx Instructions PO .COMPLEX 01/04/21 albuterol sulfate 90 mcg/actuation aerosol inhaler 1 - 2 puff INHALATION Q6H PRN #8.5 g 01/10/21 acetaminophen [Tylenol Extra Strength] 1,000 mg PO DAILY PRN 03/11/21 folic acid 1 mg PO DAILY 03/11/21 thiamine HCl (vitamin B1) 100 mg PO DAILY 03/11/21 Hospital Course Operations None Procedures None Summary of Care Provided Minutes Spent on Discharge: 35 Hospital Course: Per HPI: LAURA HENSLEY, is a 50 M who presents with seizure in a postictal state. He has had a history of seizures in the past and was recently increased on his Keppra from 1000 to 1500 mg twice daily. This is obtained through chart review as he is still post ictal and had also received Versed and the ambulance on the way here to the hospital. He does not appear to be seizing any longer and he is arousable but it is hard to have a conversation with him. Hospital Course: 1. Post ictal state after [id number] male who had recently been transferred to a tertiary care center in January for status needing intubated presented to the hospital post ictal after a seizure. He states that he does take his medications appropriately, a Keppra level is pending I did consult teleneurology who felt that it would be okay to discharge him today since he is doing so well without needing any EEG as it would not change medical therapy and he just had one in July as an outpatient. Would also hold off on increasing his Keppra as there is some concern to whether not he is actually taking it as prescribed. A low Keppra level would indicate that we can stay at the 1500 mg p.o. twice daily and just encourage compliance. If his Keppra level is normal and he had a breakthrough seizure at that point we could potentially increase to 2000 mg p.o. twice daily. Discussed with him the plan for discharge and he expressed understanding of the risk benefits of going home and would like to go home today. 2. Anxiety, depression, history of migraines are all chronic medical conditions which complicate his care. His home medications were continued where appropriate Weight / BMI Weight Weight: 193 lb 5.526 oz Body Mass Index (BMI) 29.4 ABG / Lab / Microbiology Data Result Diagrams: 03/12/21 07:08 03/12/21 07:08 Laboratory: Laboratory Results - last 24 hr 03/11/21 13:55: WBC 15.5 H, RBC 5.42, Hgb 16.4, Hct 54.1 H, MCV 99.8 H, MCH 30.3, MCHC 30.3 L, RDW Std Deviation 52.0 H, RDW Coeff of Wilma 14.1, Plt Count 488 H, MPV 9.0, Immature Gran % (Auto) 0.700, Neut % (Auto) 55.7, Lymph % (Auto) 30.8, [place] % (Auto) 6.7, Eos % (Auto) 5.5 H, Baso % (Auto) 0.6, Absolute Neuts (auto) 8.6 H, Absolute Lymphs (auto) 4.76 H, Nucleated RBC % 0 03/11/21 13:55: Sodium 137, Potassium 3.7, Chloride 99, Carbon Dioxide 12.0 L, Anion Gap 26 H, BUN 10, Creatinine 1.12, Estim Creat Clear Calc 77.19, Est GFR (MDRD) Af Amer 89, Est GFR (MDRD) Non-Af 74, BUN/Creatinine Ratio 8.9 L, Glucose 98, Calcium 9.5, Total Bilirubin 0.20, AST 18, ALT 18, Alkaline Phosphatase 77, Total Protein 9.0 H, Albumin 4.5, Globulin 4.5 H, Albumin/Globulin Ratio 1.0 03/11/21 13:55: Ethyl Alcohol < 3.0 03/11/21 13:57: POC Glucose 96 03/11/21 19:22: Urine Opiates Screen NEGATIVE, Urine Methadone Screen NEGATIVE, Ur Barbiturates Screen NEGATIVE, Ur Phencyclidine Scrn NEGATIVE, Ur Amphetamines Screen NEGATIVE, U Methamphetamin-MDMA NEGATIVE, U Benzodiazepines Scrn POSITIVE H, Urine Cocaine Screen NEGATIVE, U Cannabinoids Screen POSITIVE H, Ur Drug Screen Comment 03/12/21 07:08: WBC 11.0, RBC 5.04, Hgb 15.1, Hct 45.6, MCV 90.5 D, MCH 30.0, MCHC 33.1 D, RDW Std Deviation 47.6 H, RDW Coeff of Wilma 14.2, Plt Count 430, MPV 8.9, Immature Gran % (Auto) 0.400, Neut % (Auto) 73.6 H, Lymph % (Auto) 16.4 L, [place] % (Auto) 6.6, Eos % (Auto) 2.5, Baso % (Auto) 0.5, Absolute Neuts (auto) 8.1 H, Absolute Lymphs (auto) 1.80, Nucleated RBC % 0 03/12/21 07:08: Sodium 140, Potassium 4.0, Chloride 113 H, Carbon Dioxide 21.0, Anion Gap 6, BUN 6 L, Creatinine 0.59 L, Estim Creat Clear Calc 146.53, Est GFR (MDRD) Af Amer 187, Est GFR (MDRD) Non-Af 154, BUN/Creatinine Ratio 10.2, Glucose 93, Calcium 8.1 L Radiography Diagnostic Testing: Radiology Impression Brain CT 03/11/21 14:18 IMPRESSION: Chronic involutional changes of the brain. Electronically Signed: Francisco Morales MD at 14:41 EDT Tel , Service support , Chest X-Ray 03/11/21 14:22 IMPRESSION: No active disease. Electronically Signed: Francisco Morales MD at 14:33 EDT Tel , Service support , D/C Instructions Discharge Diet: No restrictions Call your doctor if you observe: Fever of 101 or Higher, Shortness of breath, Dizziness, Swelling in the ankles, Chest pain and Increased palpitations (irregular heartbeat) Meaningful Use Info Meaningful Use Diagnoses (Choose all that apply): None applicable Discharge Plan Admission Admit Date/Time: 03/11/21 17:02 Attending Provider: Clint Brasher Primary Care Provider: Nick Blackwell Instructions Patient Instructions: Seizures and Epilepsy Additional Instructions / Restrictions: Follow-up with your outpatient neurologist to follow-up with a Keppra level results as this may indicate a need to increase dosing. Discharge Orders/Prescriptions Prescriptions: Continued sertraline 100 mg tablet 200 mg PO DAILY Qty: 180 RF: 1 levetiracetam [Keppra] 1,000 mg tablet 1,500 mg PO BID RF: 0 amitriptyline 25 mg tablet 25 mg PO QHS RF: 0 sumatriptan succinate 100 mg tablet See Rx Instructions PO .COMPLEX RF: 0 thiamine HCl (vitamin B1) 100 mg Tablet 100 mg PO DAILY RF: 0 folic acid 1 mg Tablet 1 mg PO DAILY RF: 0 acetaminophen [Tylenol Extra Strength] 500 mg Tablet 1,000 mg PO DAILY PRN (Reason: Pain) RF: 0 albuterol sulfate [ProAir HFA] 90 mcg/actuation HFA aerosol inhaler 1 - 2 puff INHALATION Q6H PRN (Reason: shortness of breath or wheezing) Qty: 8.5 RF: 1 Referrals / Follow Up: Nick Blackwell MD [Primary Care Provider] - In 1 Week Disposition Disposition (needs filled in before D/C Order can be placed): Home, Self Care Charges/Coding Visit Charges OBSV E&M: 42422 Observation care discharge
[2021-03-12] MEDS: Thiamine Hydrochloride 100 MG Tablet PO (10:58)
[2021-03-12] MEDS: Sertraline 100 MG Tablet 200 MG PO (10:58)
[2021-03-12] MEDS: Folic Acid 1 MG Tablet PO (10:58)
[2021-03-15 16:43] LABS: KEPPRA (LEVETIRACETAM) 2.7 ug/mL (10.0-40.0)
== END 2021-03-12 10:16 | disposition home or self-care (01) ==
LOC: ED 16:51 → PCU 17:43
PROVIDERS: Admitting Provider Family Medicine; Emergency Provider Emergency Medicine; PCP Internal Medicine; Visit Provider Family Medicine
DX: G40.909 Epilepsy, unspecified, not intractable, without status epilepticus (principal); F17.210 Nicotine dependence, cigarettes, uncomplicated; M19.90 Unspecified osteoarthritis, unspecified site; Z79.899 Other long term (current) drug therapy; F32.9 Major depressive disorder, single episode, unspecified; F41.9 Anxiety disorder, unspecified; G43.909 Migraine, unspecified, not intractable, without status migrainosus
CPT/HCPCS: 36415; 70450; 71045; 80048; 80053; 80177; 80307; 82077; 82962; 85025; 93005; 95819; 96361; 96365; 96366; 96375; 99218; 99285; J7030; J7050; A4216; G0378

== ENCOUNTER → 2021-07-05 08:33 | Outpatient (CLI) | payer MEDICAID, SELFPAY ==
[2021-07-05 12:51] LABS: Absolute Lymphocyte Count 2.19 X10^3/uL (0.83-4.51); Absolute Neutrophil Count 8.5 X10^3/uL (2.0-7.7); Basophil# 0.06 X10^3/uL; Basophil% 0.5 % (0-1); Eosinophil# 0.43 X10^3/uL; Eosinophils% 3.7 % (0-5); Hematocrit 45.4 % (40-54); Hemoglobin 15.3 g/dL (13.0-16.5); Lymphocyte # 2.19 X10^3/ul (0.83-4.51); Lymphocyte % 18.7 % (19-41); Mean Corp Hgb Conc 33.7 g/dL (32-36); Mean Corpuscular Hgb 30.7 pg (27.0-32.0); Mean Corpuscular Volume 91.2 fL (80-94); Mean Platelet Vol. 9.2 fl (6.2-12.0); Monocyte# 0.49 X10^3/uL; Monocyte% 4.2 % (0-10); NRBC Flagged by Analyzer 0 % (0-5); Neutrophil # 8.53 X10^3/uL (2.7-7.7); Neutrophil % 72.6 % (47-70); Platelet Count 384 K/mm3 (150-450); RBC Distribution Width CV 15.2 % (11.6-14.6); RBC Distribution Width SD 50.9 fl (35.1-43.9); Red Blood Count 4.98 M/mm3 (4.6-6.2); White Blood Count 11.7 K/mm3 (4.4-11.0)
[2021-07-05 13:23] LABS: AST(SGOT) 15 U/L (15-37); Alanine Aminotransfer ALT/SGPT 16 U/L (16-61); Albumin, Serum 3.6 g/dL (3.2-5.0); Alkaline Phosphatase 55 U/L (45-117); Anion Gap 6 (5-15); BUN 12 mg/dL (7-18); BUN/Creat Ratio 15.3 RATIO (10-20); Calcium,Total 8.8 mg/dL (8.5-10.1); Chloride 108 mmol/L (98-107); Cholesterol 218 mg/dL (200); Creatinine, Serum 0.78 mg/dL (0.70-1.30); EST Glomerular Filtration Rate 112 mL/min (>60); Est Glom Filt Rate - Afr Amer 135 mL/min (>60); Globulin 3.7 g/dL (2.2-4.2); Glucose 104 mg/dL (74-106); High Density Lipoprotein 36 mg/dL; Potassium 4.4 mmol/L (3.5-5.1); Protein, Total 7.3 g/dL (6.4-8.2); Sodium Level 137 mmol/L (136-145); Triglycerides 140 mg/dL; Very Low Density Lipoprotein 28 mg/dL (5-40)
[2021-07-09 14:50] LABS: KEPPRA (LEVETIRACETAM) 28.8 ug/mL (10.0-40.0)
== END ==
PROVIDERS: PCP Internal Medicine; Referring Provider Internal Medicine; Visit Provider Internal Medicine
DX: I10 Essential (primary) hypertension (principal); G40.909 Epilepsy, unspecified, not intractable, without status epilepticus
CPT/HCPCS: 36415; 80053; 80061; 80177; 85025

== ENCOUNTER 2021-07-24 14:29 | Emergency (ER) | payer MEDICAID, SELFPAY ==
[2021-07-24 14:30] VITALS: BP 105/61; PULSE 100; RESP 17; TEMP 36.8; O2SAT 92; BMI 29.9
--- NOTE | 2021-07-24 15:12 | EDS_ITS ---
HPI History of Present Illness Chief Complaint: Seizure Informant: EMS Onset/Context/Timing Onset: Today Context: Sudden Onset Location: Generalized Narrative Narrative: Patient presents having a seizure today. Patient apparently has a history of seizures. EMS was called. EMS reports patient was unresponsive after his seizure. EMS reportedly administered Versed. Patient is currently sleeping on exam and will not answer any questions. [facility] Medical History Arthritis Back pain Chronic headaches Colon cancer screening GI problem Health care maintenance Hearing problem History of alcohol abuse History of pneumonia History of skull fracture Seasonal allergies Seizure Vision problem Home Medications sertraline 100 mg tablet 200 mg PO DAILY #180 tablet 11/24/20 [Rx Last Taken 03/11/21] sumatriptan succinate 100 mg tablet See Rx Instructions PO .COMPLEX 01/04/21 [History Last Taken Unknown] acetaminophen [Tylenol Extra Strength] 1,000 mg PO DAILY PRN 03/11/21 [History Last Taken Unknown] folic acid 1 mg PO DAILY 03/11/21 [History Last Taken 03/11/21] thiamine HCl (vitamin B1) 100 mg PO DAILY 03/11/21 [History Last Taken 03/11/21] amitriptyline 75 mg tablet 75 mg PO QHS #90 tab 04/05/21 [Rx Last Taken Unknown] levetiracetam 750 mg tablet 1,500 mg PO BID tab 04/05/21 [History Last Taken Unknown] quetiapine 25 mg tablet 25 mg PO DAILY 04/05/21 [History Last Taken Unknown] verapamil 120 mg 24 hr capsule,extended release 180 mg PO DAILY 04/05/21 [History Last Taken Unknown] zonisamide 100 mg capsule 200 mg PO QHS cap 04/05/21 [History Last Taken Unknown] albuterol sulfate 90 mcg/actuation aerosol inhaler 1 - 2 puff INHALATION Q6H PRN #8.5 g 05/02/21 [Rx Last Taken Unknown] omeprazole 40 mg capsule,delayed release 40 mg PO DAILY #90 cap 07/05/21 [Rx Last Taken Unknown] Allergy/AdvReac Type Severity Reaction Status Date / Time codeine Allergy Mild NIGHTMARES Verified 07/24/21 14:30 hydrocodone bitartrate AdvReac Other Verified 07/24/21 14:30 [From Vicodin] Family History Mother Suicide Depression Arthritis Anxiety Father Suicide Alcoholism Grandfather Alcoholism Surgical History H/O shoulder surgery History of cholecystectomy History of facial surgery Social History Smoking Status: Unknown if ever smoked alcohol intake: never substance use type: does not use ROS ROS ED Review of Systems ROS Unobtainable: due to mental status EXAM Physical Exam Const Vital Signs: 07/24/21 14:30 07/24/21 17:50 Temperature 98.2 F Temperature Source Temporal Pulse Rate 100 Respiratory Rate 17 Blood Pressure 105/61 103/73 Blood Pressure Mean 75 Pulse Ox 92 Oxygen Delivery Method Room Air Positive well nourished and well developed General Appearance ED: well developed and NAD HEENT Reports moist mucous membranes Neck supple Resp normal respiratory effort and clear to auscultation bilaterally Cardio regular rate and regular rhythm GI non-distended Palpation: soft MDM MDM MDM Narrative Medical decision making narrative: On reevaluation, patient is awake, and alert. Patient states he feels back to his baseline. Patient states he feels like he normally feels after having a seizure. CBC shows a mild leukocytosis of 17.9. This is most likely from the seizure. Comprehensive metabolic profile shows a CO2 of 14 and a mild anion gap of 20. This is likely due to lactic acidosis from the seizure. Lactate will be obtained. Patient did not want to wait for the results. Patient states he feels fine and wants to go home. Patient was advised of his findings. Patient was instructed to follow-up with his primary care physician in 3 to 5 days. Patient understood and was agreeable with the plan. All questions were answered. Lab Data Attestation: I reviewed the patient's lab results. Labs: Laboratory Results - last 24 hr 07/24/21 07/24/21 14:31 14:31 WBC 17.9 H RBC 5.45 Hgb 16.3 Hct 52.6 MCV 96.5 H MCH 29.9 MCHC 31.0 L RDW Std Deviation 52.8 H RDW Coeff of Wilma 14.8 H Plt Count 462 H MPV 9.6 Immature Gran % (Auto) 0.600 Neut % (Auto) 53.5 Lymph % (Auto) 33.2 [place] % (Auto) 7.8 Eos % (Auto) 4.3 Baso % (Auto) 0.6 Absolute Neuts (auto) 9.6 H Absolute Lymphs (auto) 5.94 H Nucleated RBC % 0 Differential Comment SCANNED Diff Path Review May foll Sodium 142 Potassium 3.5 Chloride 108 H Carbon Dioxide 14.0 L Anion Gap 20 H BUN 12 Creatinine 1.26 Estim Creat Clear Calc 72.42 Est GFR (MDRD) Af Amer 78 Est GFR (MDRD) Non-Af 64 BUN/Creatinine Ratio 9.5 L Glucose 124 H Calcium 9.5 Total Bilirubin 0.30 AST 17 ALT 17 Alkaline Phosphatase 70 Total Protein 8.5 H Albumin 4.3 Globulin 4.2 Albumin/Globulin Ratio 1.0 Discharge Plan Triage Chief Complaint: Seizure ED Provider: Sanya Mcfarlane Dx/Rx/DC Orders Clinical Impression: Seizure disorder Instructions: ED Seizure, Recurrent (Adult) Prescriptions: No Action sertraline 100 mg tablet 200 mg PO DAILY Qty: 180 RF: 1 sumatriptan succinate 100 mg tablet See Rx Instructions PO .COMPLEX RF: 0 levetiracetam 750 mg tablet 1,500 mg PO BID RF: 0 quetiapine 25 mg tablet 25 mg PO DAILY RF: 0 Hold Instructions: Order Changed verapamil 120 mg capsule,ext rel. pellets 24 hr 180 mg PO DAILY RF: 0 zonisamide 100 mg capsule 200 mg PO QHS RF: 0 amitriptyline 75 mg tablet 75 mg PO QHS Qty: 90 RF: 1 omeprazole 40 mg capsule,delayed release(DR/EC) 40 mg PO DAILY Qty: 90 RF: 1 thiamine HCl (vitamin B1) 100 mg Tablet 100 mg PO DAILY RF: 0 folic acid 1 mg Tablet 1 mg PO DAILY RF: 0 acetaminophen [Tylenol Extra Strength] 500 mg Tablet 1,000 mg PO DAILY PRN (Reason: Pain) RF: 0 albuterol sulfate [ProAir HFA] 90 mcg/actuation HFA aerosol inhaler 1 - 2 puff INHALATION Q6H PRN (Reason: shortness of breath or wheezing) Qty: 8.5 RF: 1 Primary Care Provider: Nick Blackwell Referrals: Nick Blackwell MD [Primary Care Provider] - 3-5 Days Disposition Disposition: Home, Self Care Discharge Date/Time: 07/24/21 17:52
[2021-07-24 15:28] LABS: Absolute Lymphocyte Count 5.94 X10^3/uL (0.83-4.51); Absolute Neutrophil Count 9.6 X10^3/uL (2.0-7.7); Basophil# 0.11 X10^3/uL; Basophil% 0.6 % (0-1); Eosinophil# 0.76 X10^3/uL; Eosinophils% 4.3 % (0-5); Hematocrit 52.6 % (40-54); Hemoglobin 16.3 g/dL (13.0-16.5); Lymphocyte # 5.94 X10^3/ul (0.83-4.51); Lymphocyte % 33.2 % (19-41); Mean Corpuscular Hgb 29.9 pg (27.0-32.0); Mean Corpuscular Volume 96.5 fL (80-94); Mean Platelet Vol. 9.6 fl (6.2-12.0); Monocyte% 7.8 % (0-10); NRBC Flagged by Analyzer 0 % (0-5); Neutrophil # 9.56 X10^3/uL (2.7-7.7); Neutrophil % 53.5 % (47-70); POSITIVE DIFFERENTIAL YES; POSITIVE MORPHOLOGY YES; Platelet Count 462 K/mm3 (150-450); RBC Distribution Width CV 14.8 % (11.6-14.6); RBC Distribution Width SD 52.8 fl (35.1-43.9); Red Blood Count 5.45 M/mm3 (4.6-6.2); White Blood Count 17.9 K/mm3 (4.4-11.0)
[2021-07-24 15:43] LABS: AST(SGOT) 17 U/L (15-37); Alanine Aminotransfer ALT/SGPT 17 U/L (16-61); Albumin, Serum 4.3 g/dL (3.2-5.0); Alkaline Phosphatase 70 U/L (45-117); Anion Gap 20 (5-15); BUN 12 mg/dL (7-18); BUN/Creat Ratio 9.5 RATIO (10-20); Calcium,Total 9.5 mg/dL (8.5-10.1); Chloride 108 mmol/L (98-107); Creatinine, Serum 1.26 mg/dL (0.70-1.30); EST Glomerular Filtration Rate 64 mL/min (>60); Est Glom Filt Rate - Afr Amer 78 mL/min (>60); Estimated Creatinine Clearance 72.42 ml/min; Globulin 4.2 g/dL (2.2-4.2); Glucose 124 mg/dL (74-106); Potassium 3.5 mmol/L (3.5-5.1); Protein, Total 8.5 g/dL (6.4-8.2); Sodium Level 142 mmol/L (136-145)
[2021-07-24 15:56] LABS: Differential Indicated SCAN CRITERIA MET
[2021-07-24 16:28] LABS: Differential Comment SCANNED
[2021-07-24 17:50] VITALS: BP 103/73
--- NOTE | 2021-07-24 17:51 | ED.RN ---
Patient states he wants to leave and not stay for lab results. MD notified and DC order obtained.
[2021-07-25 13:14] LABS: Pathologist Review Reviewed
== END 2021-07-24 17:52 | disposition home or self-care (01) ==
PROVIDERS: Emergency Provider Emergency Medicine; PCP Internal Medicine
DX: G40.909 Epilepsy, unspecified, not intractable, without status epilepticus (principal); Z79.899 Other long term (current) drug therapy
CPT/HCPCS: 80053; 85025; 99285

== ENCOUNTER 2021-10-26 08:45 | Outpatient (CLI) | payer MEDICAID, SELFPAY ==
[2021-10-26 10:04] LABS: Absolute Lymphocyte Count 2.64 X10^3/uL (0.83-4.51); Absolute Neutrophil Count 7.8 X10^3/uL (2.0-7.7); Basophil# 0.07 X10^3/uL; Basophil% 0.6 % (0-1); Eosinophil# 0.75 X10^3/uL; Eosinophils% 6.2 % (0-5); Hematocrit 45.7 % (40-54); Hemoglobin 15.3 g/dL (13.0-16.5); Lymphocyte # 2.64 X10^3/ul (0.83-4.51); Mean Corp Hgb Conc 33.5 g/dL (32-36); Mean Corpuscular Hgb 31.3 pg (27.0-32.0); Mean Corpuscular Volume 93.5 fL (80-94); Mean Platelet Vol. 9.3 fl (6.2-12.0); Monocyte# 0.66 X10^3/uL; Monocyte% 5.5 % (0-10); NRBC Flagged by Analyzer 0 % (0-5); Neutrophil # 7.84 X10^3/uL (2.7-7.7); Neutrophil % 65.3 % (47-70); Platelet Count 377 K/mm3 (150-450); RBC Distribution Width SD 51.6 fl (35.1-43.9); Red Blood Count 4.89 M/mm3 (4.6-6.2)
[2021-10-26 10:29] LABS: ALB/GLOB Ratio 1.1 RATIO (0.9-2.4); AST(SGOT) 9 U/L (15-37); Alanine Aminotransfer ALT/SGPT 17 U/L (16-61); Albumin, Serum 3.6 g/dL (3.2-5.0); Alkaline Phosphatase 54 U/L (45-117); Anion Gap 9 (5-15); BUN 19 mg/dL (7-18); Calcium,Total 8.2 mg/dL (8.5-10.1); Chloride 109 mmol/L (98-107); EST Glomerular Filtration Rate 126 mL/min (>60); Est Glom Filt Rate - Afr Amer 152 mL/min (>60); Globulin 3.4 g/dL (2.2-4.2); Glucose 108 mg/dL (74-106); Potassium 3.9 mmol/L (3.5-5.1); Sodium Level 137 mmol/L (136-145)
[2021-10-26 10:31] LABS: Valproic Acid (Depakene) Level 46 ug/mL (50-100)
== END 2021-10-26 23:59 | disposition home or self-care (01) ==
PROVIDERS: PCP Internal Medicine; Referring Provider Psychiatry & Neurology Neurology; Visit Provider Psychiatry & Neurology Neurology
DX: J44.9 Chronic obstructive pulmonary disease, unspecified (principal); G40.011 Localization-related (focal) (partial) idiopathic epilepsy and epileptic syndromes with seizures of localized onset, intractable, with status epilepticus
CPT/HCPCS: 36415; 80053; 80164; 85025

== ENCOUNTER 2021-12-30 17:47 | Emergency (ER) | payer MEDICAID, SELFPAY ==
[2021-12-30 17:48] VITALS: BP 117/83; PULSE 86; RESP 16; TEMP 36.7; O2SAT 98; BMI 29.2
[2021-12-30 18:33] LABS: Absolute Lymphocyte Count 3.59 X10^3/uL (0.83-4.51); Absolute Neutrophil Count 5.3 X10^3/uL (2.0-7.7); Basophil# 0.07 X10^3/uL; Basophil% 0.7 % (0-1); Eosinophil# 0.69 X10^3/uL; Eosinophils% 6.6 % (0-5); Hematocrit 44.3 % (40-54); Hemoglobin 14.9 g/dL (13.0-16.5); Lymphocyte # 3.59 X10^3/ul (0.83-4.51); Lymphocyte % 34.3 % (19-41); Mean Corp Hgb Conc 33.6 g/dL (32-36); Mean Corpuscular Hgb 31.1 pg (27.0-32.0); Mean Corpuscular Volume 92.5 fL (80-94); Mean Platelet Vol. 9.4 fl (6.2-12.0); Monocyte# 0.82 X10^3/uL; Monocyte% 7.8 % (0-10); NRBC Flagged by Analyzer 0 % (0-5); Neutrophil # 5.25 X10^3/uL (2.7-7.7); Neutrophil % 50.2 % (47-70); Platelet Count 347 K/mm3 (150-450); RBC Distribution Width CV 14.1 % (11.6-14.6); RBC Distribution Width SD 48.6 fl (35.1-43.9); Red Blood Count 4.79 M/mm3 (4.6-6.2); White Blood Count 10.5 K/mm3 (4.4-11.0)
[2021-12-30 18:40] LABS: Anion Gap 6 (5-15); BUN 13 mg/dL (7-18); BUN/Creat Ratio 16.2 RATIO (10-20); Calcium,Total 8.8 mg/dL (8.5-10.1); Chloride 111 mmol/L (98-107); EST Glomerular Filtration Rate 108 mL/min (>60); Est Glom Filt Rate - Afr Amer 131 mL/min (>60); Estimated Creatinine Clearance 114.06 ml/min; Glucose 118 mg/dL (74-106); Potassium 3.6 mmol/L (3.5-5.1); Sodium Level 140 mmol/L (136-145)
--- NOTE | 2021-12-30 20:17 | EDS_ITS ---
HPI History of Present Illness Chief Complaint: Abd Pain Informant: patient Onset/Context/Timing Onset: Days (5 days) Context: Gradual Onset Timing: Waxes and wanes Current Severity: Mild Maximum Severity: Moderate Narrative Narrative: Patient presents with 5-day history of right lower quadrant abdominal pain. He thought he pulled a muscle or strained his abdominal wall while coughing last weekend. He denies fever or chills. Has been able to tolerate p.o. diet without difficulty. No urinary or bowel symptoms. Patient was seen by his PCP today who noted significant tenderness on exam and was concerned for appendicitis. He was sent to the ER for further evaluation. [facility] Medical History Arthritis Back pain Chronic headaches Colon cancer screening GI problem Health care maintenance Hearing problem History of alcohol abuse History of pneumonia History of skull fracture Nausea RLQ abdominal pain Seasonal allergies Seizure Vision problem Home Medications sumatriptan succinate 100 mg tablet See Rx Instructions PO .COMPLEX 01/04/21 [History Last Taken Unknown] acetaminophen [Tylenol Extra Strength] 1,000 mg PO DAILY PRN 03/11/21 [History Last Taken Unknown] folic acid 1 mg PO DAILY 03/11/21 [History Last Taken 03/11/21] thiamine HCl (vitamin B1) 100 mg PO DAILY 03/11/21 [History Last Taken 03/11/21] amitriptyline 75 mg tablet 75 mg PO QHS #90 tab 04/05/21 [Rx Last Taken Unknown] levetiracetam 750 mg tablet 1,500 mg PO BID tab 04/05/21 [History Last Taken Unknown] quetiapine 25 mg tablet 25 mg PO DAILY 04/05/21 [History Last Taken Unknown] verapamil 120 mg 24 hr capsule,extended release 180 mg PO DAILY 04/05/21 [History Last Taken Unknown] zonisamide 100 mg capsule 200 mg PO QHS cap 04/05/21 [History Last Taken Unknown] sertraline 100 mg tablet 200 mg PO DAILY #180 tablet 07/27/21 [Rx Last Taken Unknown] omeprazole 40 mg capsule,delayed release 40 mg PO DAILY #90 cap 09/07/21 [Rx Last Taken Unknown] albuterol sulfate 90 mcg/actuation aerosol inhaler 2 puff INHALATION Q6H PRN #8.5 g 10/26/21 [Rx Last Taken Unknown] cenobamate 150 mg (14)-200 mg (14) tablets in a dose pack See Rx Instructions PO .COMPLEX tab 10/26/21 [History Last Taken Unknown] divalproex 250 mg tablet,delayed release 250 mg PO BID tab 10/26/21 [History Last Taken Unknown] divalproex 500 mg tablet,delayed release 500 mg PO BID tab 10/26/21 [History Last Taken Unknown] rizatriptan 10 mg tablet 10 mg PO tab 10/26/21 [History Last Taken Unknown] Allergy/AdvReac Type Severity Reaction Status Date / Time codeine Allergy Mild NIGHTMARES Verified 12/30/21 17:48 hydrocodone bitartrate AdvReac Other Verified 12/30/21 17:48 [From Vicodin] Family History Mother Suicide Depression Arthritis Anxiety Father Suicide Alcoholism Grandfather Alcoholism Surgical History H/O shoulder surgery History of cholecystectomy History of facial surgery Social History Smoking Status: Current every day smoker tobacco type: cigarettes alcohol intake: never substance use type: does not use ROS ROS ED Constitutional Constitutional ED: Denies chills or fever(s) Eyes Eyes: Denies change in vision ENT ENT ED: Denies sore throat Cardiovascular Cardiovascular: Denies chest pain Respiratory/Chest Respiratory/Chest: Denies cough or dyspnea Gastrointestinal Gastrointestinal: Reports abdominal pain; Denies diarrhea, nausea or vomiting Genitourinary Genitourinary ED: Denies dysuria or hematuria Musculoskeletal Musculoskeletal: Denies back pain or neck pain Integumentary Denies rash Neurologic Neurologic: Denies headache(s) or weakness Allergic/Immunologic Allergic/Immunologic ED: Denies urticaria EXAM Physical Exam Const Vital Signs: 12/30/21 17:48 Temperature 98.1 F Temperature Source Temporal Pulse Rate 86 Respiratory Rate 16 Blood Pressure 117/83 H Blood Pressure Mean 94 Pulse Ox 98 Oxygen Delivery Method Room Air Positive well nourished and well developed General Appearance ED: well developed HEENT Reports moist mucous membranes Eyes PERRL and EOMs intact bilaterally Neck supple Chest Wall inspection of chest normal and palpation of chest normal Resp normal respiratory effort and clear to auscultation bilaterally Cardio regular rate and regular rhythm GI Auscultation: normoactive bowel sounds Palpation: soft and tender RLQ Extremity normal to inspection Neuro oriented x3 Sensorium / Orientation: alert Psych mental status grossly normal Skin no rashes or lesions noted MDM MDM MDM Narrative Medical decision making narrative: Lab work and urinalysis obtained per nursing protocol. CT scan of the abdomen pelvis ordered at time of my exam. Lab Data Attestation: I reviewed the patient's lab results. Labs: Laboratory Results - last 24 hr 12/30/21 12/30/21 12/30/21 18:10 18:10 20:36 WBC 10.5 RBC 4.79 Hgb 14.9 Hct 44.3 MCV 92.5 MCH 31.1 MCHC 33.6 RDW Std Deviation 48.6 H RDW Coeff of Wilma 14.1 Plt Count 347 MPV 9.4 Immature Gran % (Auto) 0.400 Neut % (Auto) 50.2 Lymph % (Auto) 34.3 [place] % (Auto) 7.8 Eos % (Auto) 6.6 H Baso % (Auto) 0.7 Absolute Neuts (auto) 5.3 Absolute Lymphs (auto) 3.59 Nucleated RBC % 0 Sodium 140 Potassium 3.6 Chloride 111 H Carbon Dioxide 23.0 Anion Gap 6 BUN 13 Creatinine 0.80 Estim Creat Clear Calc 114.06 Est GFR (MDRD) Af Amer 131 Est GFR (MDRD) Non-Af 108 BUN/Creatinine Ratio 16.2 Glucose 118 H Calcium 8.8 Urine Color Yellow Urine Clarity Clear Urine pH 6.0 Ur Specific [place] 1.025 Urine Protein Negative Urine Glucose (UA) Normal Urine Ketones 5 H Urine Occult Blood Negative Urine Nitrite Negative Urine Bilirubin Negative Urine Urobilinogen Normal Ur Leukocyte Esterase Negative Urine RBC 0-5 SEEN Urine WBC 0-5 SEEN Ur Squamous Epith Cells 0-5 SEEN Urine Bacteria RARE Urine Mucus 0 SEEN Radiography Diagnostic Testing: Clinical Impression(s) from Imaging Studies Abdomen/Pelvis CT 12/30/21 20:17 IMPRESSION: No acute findings in the abdomen or pelvis. Electronically Signed: Devon Butt MD ([place]) at 22:19 EDT Reading Location ID and State: [facility] / [place] , Service support , Treatment and Re-Evaluation Narrative: Lab work unremarkable with normal white count. No left shift. Chemistry studies normal. Urinalysis reveals no infection. CT scan reveals no acute findings. No evidence of appendicitis. Patient is reassured with these findings and is comfortable with discharge to home. He will continue supportive care and follow-up with his primary care physician if not improving. Discharge Plan Triage Chief Complaint: Abd Pain ED Provider: Barbra Hayes Dx/Rx/DC Orders Clinical Impression: Abdominal pain Instructions: ED Abdominal Pain Unkn Cause Male... Prescriptions: No Action sumatriptan succinate 100 mg tablet See Rx Instructions PO .COMPLEX RF: 0 levetiracetam 750 mg tablet 1,500 mg PO BID RF: 0 quetiapine 25 mg tablet 25 mg PO DAILY RF: 0 Hold Instructions: Order Changed verapamil 120 mg capsule,ext rel. pellets 24 hr 180 mg PO DAILY RF: 0 zonisamide 100 mg capsule 200 mg PO QHS RF: 0 amitriptyline 75 mg tablet 75 mg PO QHS Qty: 90 RF: 1 Xcopri Titration Pack 150 mg (14)- 200 mg (14) tablets,dose pack See Rx Instructions PO .COMPLEX RF: 0 rizatriptan 10 mg tablet 10 mg PO RF: 0 divalproex 500 mg tablet,delayed release (DR/EC) 500 mg PO BID RF: 0 divalproex 250 mg tablet,delayed release (DR/EC) 250 mg PO BID RF: 0 albuterol sulfate [ProAir HFA] 90 mcg/actuation HFA aerosol inhaler 2 puff INHALATION Q6H PRN (Reason: shortness of breath or wheezing) Qty: 8.5 RF: 1 thiamine HCl (vitamin B1) 100 mg Tablet 100 mg PO DAILY RF: 0 folic acid 1 mg Tablet 1 mg PO DAILY RF: 0 acetaminophen [Tylenol Extra Strength] 500 mg Tablet 1,000 mg PO DAILY PRN (Reason: Pain) RF: 0 sertraline 100 mg tablet 200 mg PO DAILY Qty: 180 RF: 1 omeprazole 40 mg capsule,delayed release(DR/EC) 40 mg PO DAILY Qty: 90 RF: 1 Primary Care Provider: Nick Blackwell Referrals: Nick Blackwell MD [Primary Care Provider] - 1 Week if not improving Disposition Disposition: Home, Self Care
--- NOTE | 2021-12-30 20:17 | CT_ITS ---
EXAM: CT ABDOMEN AND PELVIS WITH INTRAVENOUS CONTRAST CLINICAL INDICATION: Right lower quadrant pain TECHNIQUE: Helically acquired images were obtained of the abdomen and pelvis with intravenous contrast. This CT exam was performed using one or more of the following dose reduction techniques: automated exposure control, adjustment of the mA and/or kV according to patient size, and/or use of iterative reconstruction technique. This report was created using [employer] report generation technology. Oral contrast was administered. CONTRAST: 100 mm ISOVUE 300 RADIATION DOSE: CTDIvol = 18.55 mGy, DLP = 1094.90 mGy-cm COMPARISON: None. FINDINGS: LOWER THORAX: Unremarkable. Lung bases are clear. No cardiomegaly. No significant pericardial effusion. ABDOMEN: LIVER: Unremarkable. Homogeneous. No focal mass. GALLBLADDER AND BILE DUCTS: Cholecystectomy. No intra- or extrahepatic biliary ductal dilation. PANCREAS: Unremarkable. No focal cystic or solid mass. SPLEEN: Unremarkable. Normal size without focal cystic or solid mass. ADRENALS: Unremarkable. No nodules. KIDNEYS AND URETERS: Partial duplication of the left kidney. Normal renal size and position. No hydronephrosis. STOMACH AND BOWEL: Colonic diverticulosis without evidence diverticulitis. No stomach or bowel distention. PELVIS: APPENDIX: No evidence of acute appendicitis. BLADDER: Unremarkable. REPRODUCTIVE: Unremarkable as visualized. No mass. ABDOMEN and PELVIS: INTRAPERITONEAL SPACE: Unremarkable. No ascites or other fluid collection. No free air. BONES/JOINTS: Degenerative changes of the lumbar spine. No suspicious lytic or blastic abnormality. SOFT TISSUES: Unremarkable. No discrete abdominal or pelvic wall hernia. VASCULATURE: Atherosclerosis of the abdominal aorta. Abdominal aorta is non-dilated. LYMPH NODES: Unremarkable. No enlarged lymph nodes. CT/Abdomen/Pelvis WITH Contrast IMPRESSION: No acute findings in the abdomen or pelvis. Electronically Signed: Devon Butt MD ([place]) at 22:19 EDT Reading Location ID and State: [facility] / [place] , Service support ,
[2021-12-30] MEDS: Acetaminophen 500 MG Tablet 1000 MG PO (20:30)
[2021-12-30 20:41] LABS: Mucous, Urine 0 SEEN /hpf (<or=2+)
[2021-12-30 20:42] LABS: Color, Urine Yellow (Yellow); Glucose, Dipstick Normal (Normal); Ketone-Dipstick 5 mg/dl (Negative); Leukocyte Esterase-Dipstick Negative /ul (Negative); Nitrite-Dipstick Negative (Negative); Occult Blood-Urine Negative /ul (Negative); Protein-Dipstick Negative (Negative); Specific Gravity, Urine 1.025 (1.002-1.030); Urine Bilirubin Dipstick Negative (Negative); Urine Clarity Clear (Clear); Urine Urobilinogen Normal (Normal)
[2021-12-30 20:59] LABS: Bacteria RARE /hpf (None Seen); Red Blood Cells-Urine 0-5 SEEN /hpf (0-5); Squamous Epithelial Cells - UA 0-5 SEEN /hpf (0-5); White Blood Cells 0-5 SEEN /hpf (0-5)
[2021-12-30 22:28] VITALS: RESP 16
== END 2021-12-30 22:32 | disposition home or self-care (01) ==
PROVIDERS: Emergency Provider Emergency Medicine; PCP Internal Medicine; Visit Provider Emergency Medicine
DX: R10.31 Right lower quadrant pain (principal); F17.210 Nicotine dependence, cigarettes, uncomplicated
CPT/HCPCS: 74177; 80048; 81001; 85025; 99283; Q9967; A4216

== ENCOUNTER → 2022-10-02 | Outpatient (CLI) | payer MEDICAID, SELFPAY ==
[2022-10-02 12:11] LABS: Absolute Lymphocyte Count 1.95 X10^3/uL (0.83-4.51); Absolute Neutrophil Count 3.7 X10^3/uL (2.0-7.7); Basophil# 0.03 X10^3/uL; Basophil% 0.5 % (0-1); Eosinophil# 0.17 X10^3/uL; Eosinophils% 2.7 % (0-5); Hematocrit 48.2 % (40-54); Hemoglobin 15.4 g/dL (13.0-16.5); Lymphocyte # 1.95 X10^3/ul (0.83-4.51); Lymphocyte % 30.9 % (19-41); Mean Corpuscular Hgb 31.9 pg (27.0-32.0); Mean Corpuscular Volume 99.8 fL (80-94); Mean Platelet Vol. 9.2 fl (6.2-12.0); Monocyte# 0.46 X10^3/uL; Monocyte% 7.3 % (0-10); NRBC Flagged by Analyzer 0 % (0-5); Neutrophil # 3.68 X10^3/uL (2.7-7.7); Neutrophil % 58.3 % (47-70); Platelet Count 341 K/mm3 (150-450); RBC Distribution Width CV 14.6 % (11.6-14.6); RBC Distribution Width SD 54.1 fl (35.1-43.9); Red Blood Count 4.83 M/mm3 (4.6-6.2); White Blood Count 6.3 K/mm3 (4.4-11.0)
[2022-10-02 12:28] LABS: ALB/GLOB Ratio 0.9 RATIO (0.9-2.4); AST(SGOT) 10 U/L (15-37); Alanine Aminotransfer ALT/SGPT 15 U/L (16-61); Albumin, Serum 3.5 g/dL (3.2-5.0); Alkaline Phosphatase 53 U/L (45-117); Anion Gap 8 (5-15); BUN 6 mg/dL (7-18); BUN/Creat Ratio 7.5 RATIO (10-20); Calcium,Total 8.5 mg/dL (8.5-10.1); Chloride 108 mmol/L (98-107); Cholesterol 223 mg/dL (200); EST Glomerular Filtration Rate 108 mL/min (>60); Est Glom Filt Rate - Afr Amer 130 mL/min (>60); Globulin 3.7 g/dL (2.2-4.2); Glucose 132 mg/dL (74-106); High Density Lipoprotein 46 mg/dL; PSA,Total - Annual Screen 0.55 ng/mL (0.00-4.00); Potassium 3.8 mmol/L (3.5-5.1); Protein, Total 7.2 g/dL (6.4-8.2); Sodium Level 139 mmol/L (136-145); Triglycerides 185 mg/dL; Very Low Density Lipoprotein 37 mg/dL (5-40)
== END | disposition home or self-care (01) ==
LOC: BIMLAB 10:39
PROVIDERS: PCP Internal Medicine; Referring Provider Internal Medicine; Visit Provider Internal Medicine
DX: Z00.00 Encounter for general adult medical examination without abnormal findings (principal)
CPT/HCPCS: 84153; 36415; 80053; 80061; 85025; G0103

== ENCOUNTER → 2023-05-28 | Outpatient (CLI) | payer MEDICAID, SELFPAY ==
[2023-05-28 12:18] LABS: Absolute Lymphocyte Count 1.56 X10^3/uL (0.83-4.51); Absolute Neutrophil Count 6.3 X10^3/uL (2.0-7.7); Basophil# 0.06 X10^3/uL; Basophil% 0.7 % (0-1); Eosinophil# 0.14 X10^3/uL; Eosinophils% 1.6 % (0-5); Hematocrit 44.2 % (40-54); Lymphocyte # 1.56 X10^3/ul (0.83-4.51); Mean Corp Hgb Conc 33.9 g/dL (32-36); Mean Corpuscular Hgb 37.5 pg (27.0-32.0); Mean Corpuscular Volume 110.5 fL (80-94); Mean Platelet Vol. 9.5 fl (6.2-12.0); Monocyte# 0.61 X10^3/uL; NRBC Flagged by Analyzer 0 % (0-5); Neutrophil # 6.26 X10^3/uL (2.7-7.7); Neutrophil % 72.4 % (47-70); POSITIVE MORPHOLOGY YES; Platelet Count 277 K/mm3 (150-450); RBC Distribution Width SD 70.1 fl (35.1-43.9); White Blood Count 8.7 K/mm3 (4.4-11.0)
[2023-05-28 12:28] LABS: Differential Indicated SCAN CRITERIA MET
[2023-05-28 12:59] LABS: AST(SGOT) 57 U/L (15-37); Alanine Aminotransfer ALT/SGPT 26 U/L (16-61); Albumin, Serum 3.8 g/dL (3.2-5.0); Alkaline Phosphatase 73 U/L (45-117); Anion Gap 10 (5-15); BUN 9 mg/dL (7-18); BUN/Creat Ratio 10.5 RATIO (10-20); Calcium,Total 8.9 mg/dL (8.5-10.1); Chloride 101 mmol/L (98-107); Creatinine, Serum 0.86 mg/dL (0.70-1.30); EST Glomerular Filtration Rate 99 mL/min (>60); Est Glom Filt Rate - Afr Amer 120 mL/min (>60); Globulin 3.8 g/dL (2.2-4.2); Glucose 156 mg/dL (74-106); Potassium 3.4 mmol/L (3.5-5.1); Protein, Total 7.6 g/dL (6.4-8.2); Sodium Level 135 mmol/L (136-145)
[2023-05-28 13:14] LABS: Anisocytosis 1+; Differential Comment SCANNED
[2023-05-29 10:45] LABS: Hemoglobin A1c 5.1 % (3.8-5.6)
== END | disposition home or self-care (01) ==
LOC: BIMLAB 10:15
PROVIDERS: PCP Internal Medicine; Referring Provider Internal Medicine; Visit Provider Internal Medicine
DX: R73.9 Hyperglycemia, unspecified (principal); Z72.0 Tobacco use
CPT/HCPCS: 36415; 80053; 83036; 85025

== ENCOUNTER → 2023-06-08 | Outpatient (CLI) | payer MEDICAID, SELFPAY | END | disposition home or self-care (01) | LOC: PSN 08:07 | PROVIDERS: PCP Internal Medicine; Referring Provider Psychiatry & Neurology Neurology; Visit Provider Psychiatry & Neurology Neurology | DX: G40.909 Epilepsy, unspecified, not intractable, without status epilepticus (principal); Z87.820 Personal history of traumatic brain injury | CPT/HCPCS: 95819 ==

== ENCOUNTER 2023-06-16 12:07 | Inpatient (IN) | payer MEDICAID, SELFPAY ==
[2023-06-16] VITALS (8 sets, daily range): BP systolic 128–163; BP diastolic 77–112; PULSE 104–115; RESP 14–22; TEMP 36.6–37; O2SAT 97–99; BMI 28.7; BMI 27.3
[2023-06-16] MEDS: LORazepam 2 MG/ML Syringe 1 MG IV (12:35)
[2023-06-16 12:44] LABS: Absolute Lymphocyte Count 1.08 X10^3/uL (0.83-4.51); Absolute Neutrophil Count 3.7 X10^3/uL (2.0-7.7); Basophil# 0.03 X10^3/uL; Basophil% 0.6 % (0-1); Differential Indicated SCAN CRITERIA MET; Eosinophil# 0.08 X10^3/uL; Eosinophils% 1.5 % (0-5); Hematocrit 41.7 % (40-54); Hemoglobin 14.6 g/dL (13.0-16.5); Lymphocyte # 1.08 X10^3/ul (0.83-4.51); Lymphocyte % 20.1 % (19-41); Mean Corpuscular Hgb 37.2 pg (27.0-32.0); Mean Corpuscular Volume 106.1 fL (80-94); Mean Platelet Vol. 9.1 fl (6.2-12.0); Monocyte# 0.45 X10^3/uL; Monocyte% 8.4 % (0-10); NRBC Flagged by Analyzer 0 % (0-5); Neutrophil % 68.8 % (47-70); POSITIVE MORPHOLOGY YES; Platelet Count 237 K/mm3 (150-450); RBC Distribution Width CV 16.6 % (11.6-14.6); RBC Distribution Width SD 65.4 fl (35.1-43.9); Red Blood Count 3.93 M/mm3 (4.6-6.2); White Blood Count 5.4 K/mm3 (4.4-11.0)
[2023-06-16 12:55] LABS: Anion Gap 16 (5-15); BUN 6 mg/dL (7-18); BUN/Creat Ratio 9.4 RATIO (10-20); Calcium,Total 8.3 mg/dL (8.5-10.1); Chloride 98 mmol/L (98-107); Creatinine, Serum 0.64 mg/dL (0.70-1.30); EST Glomerular Filtration Rate 141 mL/min (>60); Est Glom Filt Rate - Afr Amer 170 mL/min (>60); Estimated Creatinine Clearance 139.41 ml/min; Glucose 116 mg/dL (74-106); Magnesium 1.9 mg/dL (1.6-2.6); Potassium 3.8 mmol/L (3.5-5.1); Sodium Level 137 mmol/L (136-145)
[2023-06-16 12:59] LABS: Valproic Acid (Depakene) Level 52 ug/mL (50-100)
[2023-06-16 13:01] LABS: AST(SGOT) 131 U/L (15-37); Alanine Aminotransfer ALT/SGPT 54 U/L (16-61); Albumin, Serum 3.2 g/dL (3.2-5.0); Alkaline Phosphatase 84 U/L (45-117); Bilirubin, Direct 0.18 mg/dL (0.00-0.30); Globulin 3.3 g/dL (2.2-4.2); International Normalized Ratio 1.1; Protein, Total 6.5 g/dL (6.4-8.2); Prothrombin Time (Protime)PT. 14.6 SECONDS (11.7-14.9)
[2023-06-16 13:11] LABS: Anisocytosis 2+; Differential Comment SCANNED; Macrocytosis 1+; Microcytosis 1+
[2023-06-16 13:38] LABS: Amphetamine Urine VISTA NEGATIVE (<1000 ng/mL); Barbiturate Urine VISTA NEGATIVE (< 200 ng/mL); Benzodiazepine Urine VISTA NEGATIVE (< 200 ng/mL); Cocaine Urine VISTA NEGATIVE (< 300 ng/mL); Ecstacy Urine VISTA NEGATIVE (< 500 ng/mL); Methadone Urine VISTA NEGATIVE (< 300 ng/mL); PCP Urine VISTA NEGATIVE (< 25 ng/mL); THC Urine VISTA POSITIVE (< 50 ng/mL); Vista UDS pH Range 6
[2023-06-16 13:42] LABS: Bacteria 0 SEEN /hpf (None Seen); Mucous, Urine 0 SEEN /hpf (<or=2+); Red Blood Cells-Urine 0 SEEN /hpf (0-5); Squamous Epithelial Cells - UA 0 SEEN /hpf (0-5); White Blood Cells 0 SEEN /hpf (0-5)
[2023-06-16 13:43] LABS: Color, Urine Yellow (Yellow); Glucose, Dipstick Normal (Normal); Ketone-Dipstick 50 mg/dl (Negative); Leukocyte Esterase-Dipstick Negative /ul (Negative); Nitrite-Dipstick Negative (Negative); Occult Blood-Urine 10 /ul (Negative); Protein-Dipstick 15 mg/dl (Negative); Specific Gravity, Urine 1.015 (1.002-1.030); Urine Bilirubin Dipstick Negative (Negative); Urine Clarity Clear (Clear); Urine Urobilinogen Normal (Normal); Urine pH 6.5 (5.0 - 8.0)
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
[2023-06-16] MEDS: Phenobarbital 32.4 MG Tablet PO ×3 (16:14→22:36)
[2023-06-16] MEDS: Gabapentin 300 MG Capsule PO (20:18)
[2023-06-16] MEDS: traZODone 100 MG Tablet PO (22:36)
[2023-06-16] MEDS: ZONISAMIDE 100 MG CAPSULE 300 MG PO (22:37)
[2023-06-17 00:52] VITALS: BP 132/85; PULSE 93; RESP 16; TEMP 36.6; O2SAT 94
[2023-06-17] MEDS: Phenobarbital 32.4 MG Tablet PO ×5 (03:27→18:40)
[2023-06-17] MEDS: Divalproex Sodium 250 MG Tablet 500 MG PO ×2 (03:28→15:38)
[2023-06-17] MEDS: levETIRAcetam 750 MG Tablet 1500 MG PO ×2 (03:28→15:38)
[2023-06-17 05:03] VITALS: BP 139/94; PULSE 88; RESP 16; TEMP 36.5; O2SAT 99
[2023-06-17] MEDS: hydrOXYzine PAM 25 MG Capsule 50 MG PO (05:15)
--- NOTE | 2023-06-17 08:04 | PN.HOSP_ITS ---
Reason for Visit Reason for Visit: Diagnoses Alcohol use, unspecified with withdrawal, uncomplicated (06/16/23) Subjective Subjective Still shaking, but otherwise feels ok. Objective Data Objective Data Vital Signs: Vital Signs Temp Pulse Resp BP Pulse Ox O2 Del Method 36.5 C L 88 16 139/94 H 99 Room Air 06/17/23 05:03 06/17/23 05:03 06/17/23 05:03 06/17/23 05:03 06/17/23 05:03 06/17/23 05:03 Oxygen Delivery Method Room Air Weight: 89.131 kg Body Mass Index (BMI) 27.3 Intake & Output: Intake and Output for Last 24 Hours 06/15/23 06/16/23 06/17/23 23:59 23:59 23:59 Intake Total 800 / 800 Output Total 1500 / 1500 Balance -700 / -700 Lab / Micro Data 06/16/23 12:24 06/16/23 12:24 Labs: Laboratory Results - last 24 hr 06/16/23 12:24: WBC 5.4, RBC 3.93 L, Hgb 14.6, Hct 41.7, MCV 106.1 H, MCH 37.2 H , MCHC 35.0, RDW Std Deviation 65.4 H, RDW Coeff of Wilma 16.6 H, Plt Count 237, MPV 9.1, Immature Gran % (Auto) 0.600, Neut % (Auto) 68.8, Lymph % (Auto) 20.1, [place] % (Auto) 8.4, Eos % (Auto) 1.5, Baso % (Auto) 0.6, Absolute Neuts (auto) 3.7, Absolute Lymphs (auto) 1.08, Nucleated RBC % 0, Differential Comment SCANNED, Anisocytosis 2+, Microcytosis 1+, Macrocytosis 1+, PT 14.6, INR 1.1, Sodium 137, Potassium 3.8, Chloride 98, Carbon Dioxide 23.0, Anion Gap 16 H, BUN 6 L, Creatinine 0.64 L, Estim Creat Clear Calc 139.41, Est GFR (MDRD) Af Amer 170, Est GFR (MDRD) Non-Af 141, BUN/Creatinine Ratio 9.4 L, Glucose 116 H, Calcium 8.3 L, Magnesium 1.9, Total Bilirubin 0.50, Direct Bilirubin 0.18, AST 131 H, ALT 54, Alkaline Phosphatase 84, Total Protein 6.5, Albumin 3.2, Globulin 3.3, Valproic Acid 52, Ethyl Alcohol 44.0 06/16/23 13:18: Urine Color Yellow, Urine Clarity Clear, Urine pH 6.5, Ur Specific [place] 1.015, Urine Protein 15 H, Urine Glucose (UA) Normal, Urine Ketones 50 H, Urine Occult Blood 10 H, Urine Nitrite Negative, Urine Bilirubin Negative, Urine Urobilinogen Normal, Ur Leukocyte Esterase Negative, Urine RBC 0 SEEN, Urine WBC 0 SEEN, Ur Squamous Epith Cells 0 SEEN, Urine Bacteria 0 SEEN, Urine Mucus 0 SEEN, Urine Opiates Screen NEGATIVE, Urine Methadone Screen NE GATIVE, Ur Barbiturates Screen NEGATIVE, Ur Phencyclidine Scrn NEGATIVE, Ur Amphetamines Screen NEGATIVE, MDMA (Ecstasy) Screen NEGATIVE, U Benzodiazepines Scrn NEGATIVE, Urine Cocaine Screen NEGATIVE, U Cannabinoids Screen POSITIVE H, Ur Drug Screen Comment Physical Exam Const alert and no apparent distress HEENT head/scalp atraumatic Psych affect normal Assessment & Plan Assessment/Plan (1) Alcohol withdrawal: QUALIFIERS: Complication of substance-induced condition: uncomplicated Qualified Code(s): F10.930 - Alcohol use, unspecified with withdrawal, uncomplicated PLAN: Last drink was on the . Since then he has been shaking and having general malaise. He has not had any history of alcohol withdrawal seizures nor delirium tremens. Patient to be initiated on phenobarbital taper plus thiamine and folate Addiction medicine to see and to facilitate outpatient programs. Once again, patient has been drinking heavily over the past month. Previously had been sober until that time. Patient had been involved in some outpatient programs but has been lost to follow-up. PLAN: Plan Chronic conditions * Seizures: Posttraumatic with subdural hematoma, intraparenchymal hemorrhage. Patient has been seizure-free for about a year. Continue w cenobamate, divalproex, levetiracetam, zonisamide. Pt may use his own as he brought them with him. * GERD: continue w PPI * HTN: continue w amlodipine * COPD: continue w albuterol VTE prophylaxis: Not indicated as patient is low risk. Charges/Coding Visit Charges Inpatient E&M: 33110 Subs Hosp L1
[2023-06-17] MEDS: amLODIPine 5 MG Tablet PO (08:15)
[2023-06-17] MEDS: Thiamine Hydrochloride 100 MG Tablet PO (08:15)
[2023-06-17] MEDS: Folic Acid 1 MG Tablet PO (08:15)
[2023-06-17] MEDS: Pantoprazole Sodium 40 MG Tablet PO (08:16)
[2023-06-17] MEDS: Ibuprofen 600 MG Tablet PO ×2 (08:16→21:08)
[2023-06-17] MEDS: Gabapentin 300 MG Capsule PO ×2 (08:16→21:08)
[2023-06-17 10:30] VITALS: BP 142/89; PULSE 87; RESP 18; TEMP 36.7; O2SAT 95
[2023-06-17] MEDS: CENOBAMATE 200 MG TABLET PO (15:39)
[2023-06-17 16:00] VITALS: BP 136/84; PULSE 82; RESP 16; TEMP 36.8; O2SAT 96
[2023-06-17 20:42] VITALS: BP 142/91; PULSE 90; RESP 16; TEMP 37; O2SAT 100
[2023-06-17] MEDS: ZONISAMIDE 100 MG CAPSULE 300 MG PO (21:08)
[2023-06-18] MEDS: Phenobarbital 32.4 MG Tablet PO ×7 (00:05→22:47)
[2023-06-18] MEDS: traZODone 100 MG Tablet PO ×2 (00:05→22:47)
[2023-06-18 03:11] VITALS: BP 107/72; PULSE 75; RESP 16; TEMP 36.6; O2SAT 96
[2023-06-18] MEDS: levETIRAcetam 750 MG Tablet 1500 MG PO ×2 (03:15→14:21)
[2023-06-18] MEDS: Divalproex Sodium 250 MG Tablet 500 MG PO ×2 (03:15→14:22)
--- NOTE | 2023-06-18 07:56 | PCM.PN.HOSP ---
Reason for Visit Reason for Visit: Diagnoses Alcohol use, unspecified with withdrawal, uncomplicated (06/16/23) Subjective Subjective Still having tremors. Eating food without issues in regards to nausea or vomiting. Objective Data Objective Data Vital Signs: Vital Signs Temp Pulse Resp BP Pulse Ox O2 Del Method 36.6 C 75 16 107/72 96 Room Air 06/18/23 03:11 06/18/23 03:11 06/18/23 03:11 06/18/23 03:11 06/18/23 03:11 06/18/23 03:11 Oxygen Delivery Method Room Air Weight: 89.131 kg Body Mass Index (BMI) 27.3 Intake & Output: Intake and Output for Last 24 Hours 06/16/23 06/17/23 06/18/23 23:59 23:59 23:59 Intake Total 1500 / 1500 1600 / 1600 Output Total 2850 / 2850 3000 / 3000 Balance -1350 / -1350 -1400 / -1400 Lab / Micro Data 06/16/23 12:24 06/16/23 12:24 Physical Exam Const alert Constitutional Narrative: Appears unwell. Slightly tremulous. Alert and appropriate. HEENT head/scalp atraumatic and moist oral mucous membranes Extremity normal to inspection Neuro Sensorium / Orientation: awake and alert Psych affect normal Assessment & Plan Assessment/Plan (1) Alcohol withdrawal: QUALIFIERS: Complication of substance-induced condition: uncomplicated Qualified Code(s): F10.930 - Alcohol use, unspecified with withdrawal, uncomplicated PLAN: Last drink was on the . Since then he has been shaking and having general malaise. He has not had any history of alcohol withdrawal seizures nor delirium tremens. Patient to be initiated on phenobarbital taper plus thiamine and folate Addiction medicine to see and to facilitate outpatient programs. Once again, patient has been drinking heavily over the past month. Previously had been sober until that time. Patient had been involved in some outpatient programs but has been lost to follow-up. PLAN: Plan Chronic conditions Seizures: Posttraumatic with subdural hematoma, intraparenchymal hemorrhage. Patient has been seizure-free for about a year. Continue w cenobamate, divalproex, levetiracetam, zonisamide. Pt may use his own as he brought them with him. GERD: continue w PPI HTN: continue w amlodipine COPD: continue w albuterol VTE prophylaxis: Not indicated as patient is low risk. Charges/Coding Visit Charges Inpatient E&M: 26649 Subs Hosp L1
[2023-06-18 08:38] VITALS: BP 131/96; PULSE 86; RESP 18; TEMP 36.6; O2SAT 96
[2023-06-18] MEDS: amLODIPine 5 MG Tablet PO (08:44)
[2023-06-18] MEDS: Dicyclomine 10 MG Capsule 20 MG PO (08:44)
[2023-06-18] MEDS: Thiamine Hydrochloride 100 MG Tablet PO (08:44)
[2023-06-18] MEDS: Gabapentin 300 MG Capsule PO ×2 (08:45→22:47)
[2023-06-18] MEDS: Ondansetron 8 MG Tablet PO (08:45)
[2023-06-18] MEDS: Folic Acid 1 MG Tablet PO (08:45)
[2023-06-18] MEDS: Pantoprazole Sodium 40 MG Tablet PO (08:45)
[2023-06-18] MEDS: Loperamide 2 MG Capsule PO (08:45)
[2023-06-18] MEDS: Ibuprofen 600 MG Tablet PO ×2 (08:45→22:47)
--- NOTE | 2023-06-18 12:05 | ADDICTION ---
This telegraphic typewriter operator met with patient in his room to complete ASA assessment and discharge plan. Patient was alert and oriented x4, however, was resistant to speaking with this telegraphic typewriter operator and appeared very guarded. Patient did not commit to ongoing treatment following discharge and stated that he does not believe that he is dependent on alcohol or needs treatment. He noted his last date of use was 06/16/2023. He reports that he began drinking because his partner had a stroke. Pt reports that he will not be following up with treatment or AA because he does not need it.
[2023-06-18 14:16] VITALS: BP 112/78; PULSE 78; RESP 18; TEMP 36.4; O2SAT 100
[2023-06-18] MEDS: hydrOXYzine PAM 25 MG Capsule 50 MG PO ×2 (14:21→18:31)
[2023-06-18] MEDS: CENOBAMATE 200 MG TABLET PO (14:21)
[2023-06-18 18:27] VITALS: BP 157/98; PULSE 95; RESP 18; TEMP 36.8; O2SAT 99
[2023-06-18 22:40] VITALS: BP 112/86; PULSE 90; RESP 18; TEMP 36.7; O2SAT 100
[2023-06-18] MEDS: ZONISAMIDE 100 MG CAPSULE 300 MG PO (22:49)
[2023-06-19 03:49] VITALS: BP 101/89; PULSE 96; RESP 18; TEMP 36.4; O2SAT 98
[2023-06-19] MEDS: Divalproex Sodium 250 MG Tablet 500 MG PO ×2 (03:53→14:55)
[2023-06-19] MEDS: levETIRAcetam 750 MG Tablet 1500 MG PO ×2 (03:53→14:56)
[2023-06-19] MEDS: Phenobarbital 32.4 MG Tablet PO ×4 (05:14→22:35)
[2023-06-19] MEDS: Folic Acid 1 MG Tablet PO (07:53)
[2023-06-19] MEDS: amLODIPine 5 MG Tablet PO (07:54)
[2023-06-19] MEDS: Thiamine Hydrochloride 100 MG Tablet PO (07:54)
[2023-06-19] MEDS: Pantoprazole Sodium 40 MG Tablet PO (07:55)
--- NOTE | 2023-06-19 08:10 | PN.HOSP_ITS ---
Reason for Visit Reason for Visit: Diagnoses Alcohol use, unspecified with withdrawal, uncomplicated (06/16/23) Objective Data Objective Data Vital Signs: Vital Signs Temp Pulse Resp BP Pulse Ox O2 Del Method 36.4 C L 96 18 101/89 H 98 Room Air 06/19/23 03:49 06/19/23 03:49 06/19/23 03:49 06/19/23 03:49 06/19/23 03:49 06/19/23 03:49 Oxygen Delivery Method Room Air Weight: 89.131 kg Body Mass Index (BMI) 27.3 Intake & Output: Intake and Output for Last 24 Hours 06/17/23 06/18/23 06/19/23 23:59 23:59 23:59 Intake Total 1500 / 1500 2080 / 2080 1500 / 1500 Output Total 2850 / 2850 4425 / 4425 1600 / 1600 Balance -1350 / -1350 -2345 / -2345 -100 / -100 Lab / Micro Data 06/16/23 12:24 06/16/23 12:24 Assessment & Plan Assessment/Plan (1) Alcohol withdrawal: QUALIFIERS: Complication of substance-induced condition: uncomplicated Qualified Code(s): F10.930 - Alcohol use, unspecified with withdrawal, uncomplicated PLAN: Last drink was on the . Since then he has been shaking and having general malaise. He has not had any history of alcohol withdrawal seizures nor delirium tremens. Patient to be initiated on phenobarbital taper plus thiamine and folate Addiction medicine to see and to facilitate outpatient programs. Once again, patient has been drinking heavily over the past month. Previously had been sober until that time. Patient had been involved in some outpatient programs but has been lost to follow-up. PLAN: Plan Chronic conditions * Seizures: Posttraumatic with subdural hematoma, intraparenchymal hemorrhage. Patient has been seizure-free for about a year. Continue w cenobamate, divalproex, levetiracetam, zonisamide. Pt may use his own as he brought them with him. * GERD: continue w PPI * HTN: continue w amlodipine * COPD: continue w albuterol VTE prophylaxis: Not indicated as patient is low risk.
--- NOTE | 2023-06-19 08:11 | PN.HOSP_ITS ---
Reason for Visit Reason for Visit: Diagnoses Alcohol use, unspecified with withdrawal, uncomplicated (06/16/23) Subjective Subjective Still unwell and usteady. Objective Data Objective Data Vital Signs: Vital Signs Temp Pulse Resp BP Pulse Ox O2 Del Method 36.4 C L 96 18 101/89 H 98 Room Air 06/19/23 03:49 06/19/23 03:49 06/19/23 03:49 06/19/23 03:49 06/19/23 03:49 06/19/23 03:49 Oxygen Delivery Method Room Air Weight: 89.131 kg Body Mass Index (BMI) 27.3 Intake & Output: Intake and Output for Last 24 Hours 06/17/23 06/18/23 06/19/23 23:59 23:59 23:59 Intake Total 1500 / 1500 2080 / 2080 1500 / 1500 Output Total 2850 / 2850 4425 / 4425 1600 / 1600 Balance -1350 / -1350 -2345 / -2345 -100 / -100 Lab / Micro Data 06/16/23 12:24 06/16/23 12:24 Physical Exam Const Constitutional Narrative: appears anxious and ill, though not untoxic. Neuro Sensorium / Orientation: awake and alert Assessment & Plan Assessment/Plan (1) Alcohol withdrawal: QUALIFIERS: Complication of substance-induced condition: uncomplicated Qualified Code(s): F10.930 - Alcohol use, unspecified with withdrawal, uncomplicated PLAN: Last drink was on the . Since then he has been shaking and having general malaise. He has not had any history of alcohol withdrawal seizures nor delirium tremens. Patient to be initiated on phenobarbital taper plus thiamine and folate Once again, patient has been drinking heavily over the past month. Previously had been sober until that time. Patient had been involved in some outpatient programs but has been lost to follow-up. He is planning on going home. He is declining outpatient services at this time. PLAN: Plan Chronic conditions * Seizures: Posttraumatic with subdural hematoma, intraparenchymal hemorrhage. Patient has been seizure-free for about a year. Continue w cenobamate, divalproex, levetiracetam, zonisamide. Pt may use his own as he brought them with him. * GERD: continue w PPI * HTN: continue w amlodipine * COPD: continue w albuterol VTE prophylaxis: Not indicated as patient is low risk. Disposition: plant to watch overnight and continue phenobarbital taper. Hopefully he can be discharged on 06/20. Charges/Coding Visit Charges Inpatient E&M: 85757 Subs Hosp L1
[2023-06-19 08:47] VITALS: BP 116/78; PULSE 81; RESP 17; TEMP 36.4; O2SAT 99
[2023-06-19] MEDS: Acetaminophen 500 MG Tablet PO ×2 (11:00→15:03)
[2023-06-19 15:06] VITALS: BP 131/88; PULSE 92; RESP 17; TEMP 36.8; O2SAT 97
[2023-06-19 15:09] VITALS: BP 131/88; PULSE 92; RESP 17; TEMP 36.8; O2SAT 97
--- NOTE | 2023-06-19 15:29 | NURSING ---
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
[2023-06-19] MEDS: CENOBAMATE 200 MG TABLET PO (15:30)
--- NOTE | 2023-06-19 19:15 | NURSING ---
documentation of chipper feeder valorie maradiaga
[2023-06-19 22:25] VITALS: BP 129/81; PULSE 85; RESP 16; TEMP 36.7; O2SAT 99
[2023-06-19] MEDS: traZODone 100 MG Tablet PO (22:35)
[2023-06-19] MEDS: ZONISAMIDE 100 MG CAPSULE 300 MG PO (22:35)
[2023-06-20 03:50] VITALS: BP 125/93; PULSE 94; RESP 16; TEMP 36.4; O2SAT 100
[2023-06-20] MEDS: Divalproex Sodium 250 MG Tablet 500 MG PO (03:54)
[2023-06-20] MEDS: levETIRAcetam 750 MG Tablet 1500 MG PO (03:54)
[2023-06-20] MEDS: Phenobarbital 32.4 MG Tablet PO (05:31)
--- NOTE | 2023-06-20 08:32 | PN.HOSP_ITS ---
Reason for Visit Reason for Visit: Diagnoses Alcohol use, unspecified with withdrawal, uncomplicated (06/16/23) Objective Data Objective Data Vital Signs: Vital Signs Temp Pulse Resp BP Pulse Ox O2 Del Method 97.5 F L 94 16 125/93 H 100 Room Air 06/20/23 03:50 06/20/23 03:50 06/20/23 03:50 06/20/23 03:50 06/20/23 03:50 06/20/23 03:50 Oxygen Delivery Method Room Air Weight: 196 lb 8 oz Body Mass Index (BMI) 27.3 Intake & Output: Intake and Output for Last 24 Hours 06/18/23 06/19/23 06/20/23 23:59 23:59 23:59 Intake Total 2080 / 2080 1500 / 1500 1800 / 1800 Output Total 4425 / 4425 2400 / 2400 1600 / 1600 Balance -2345 / -2345 -900 / -900 200 / 200 Lab / Micro Data 06/16/23 12:24 06/16/23 12:24 Assessment & Plan Assessment/Plan (1) Alcohol withdrawal: QUALIFIERS: Complication of substance-induced condition: uncomplicated Qualified Code(s): F10.930 - Alcohol use, unspecified with withdrawal, uncomplicated PLAN: Last drink was on the . Since then he has been shaking and having general malaise. He has not had any history of alcohol withdrawal seizures nor delirium tremens. Patient to be initiated on phenobarbital taper plus thiamine and folate Once again, patient has been drinking heavily over the past month. Previously had been sober until that time. Patient had been involved in some outpatient programs but has been lost to follow-up. He is planning on going home. He is declining outpatient services at this time. PLAN: Plan Chronic conditions * Seizures: Posttraumatic with subdural hematoma, intraparenchymal hemorrhage. Patient has been seizure-free for about a year. Continue w cenobamate, divalproex, levetiracetam, zonisamide. Pt may use his own as he brought them with him. * GERD: continue w PPI * HTN: continue w amlodipine * COPD: continue w albuterol VTE prophylaxis: Not indicated as patient is low risk. Disposition: plant to watch overnight and continue phenobarbital taper. Hopefully he can be discharged on 06/20.
[2023-06-20 09:10] VITALS: BP 113/76; PULSE 89; RESP 18; TEMP 36.3; O2SAT 100
[2023-06-20] MEDS: Pantoprazole Sodium 40 MG Tablet PO (09:15)
[2023-06-20] MEDS: amLODIPine 5 MG Tablet PO (09:15)
[2023-06-20] MEDS: Folic Acid 1 MG Tablet PO (09:16)
[2023-06-20] MEDS: Thiamine Hydrochloride 100 MG Tablet PO (09:16)
--- NOTE | 2023-06-20 11:25 | DCINST_ITS ---
Discharge Instructions Diet Discharge Diet: No restrictions Activity Discharge Activity: Return to Normal Activity Weight Bearing Status: Weight bearing as tolerated Dressing / Incision Call your doctor if you observe: Fever of 101 or Higher, Coldness, Increased Pain, Numbness or Tingling, Change in Color, Inability to urinate, Inability to have a bowel movement, Shortness of breath, Dizziness, Fainting spells, Swelling in the ankles, Chest pain, Prolonged hiccupping, Increased palpitations (irregular heartbeat) and Calf discomfort Follow Up Care When: IN 2 WEEKS Test Results: Test results from this visit will be discussed in further detail at your follow- up appointment, if applicable. Discharge Plan Admission Admit Date/Time: 06/16/23 14:08 Primary Reason for Your Visit: Acute alcohol withdrawal syndrome Attending Provider: Tera Bloom Primary Care Provider: Nick Blackwell Consulting Providers: Sanya Caldwell Instructions Forms: Work / School Excuse Discharge Orders/Prescriptions Prescriptions: New thiamine HCl (vitamin B1) [Vitamin B-1] 100 mg Tablet 100 mg PO DAILYCM Qty: 30 2RF folic acid 1 mg Tablet 1 mg PO DAILY@0800 30 Days Qty: 30 2RF Continued amlodipine 5 mg tablet 5 mg PO DAILY Qty: 30 1RF levetiracetam 750 mg tablet 1,500 mg PO BID Qty: 120 5RF divalproex 500 mg tablet,delayed release (DR/EC) 500 mg PO BID Qty: 60 5RF Xcopri 200 mg tablet 200 mg PO DAILY Qty: 30 4RF zonisamide 100 mg capsule 300 mg PO QHS Qty: 90 5RF omeprazole 40 mg capsule,delayed release(DR/EC) 40 mg PO DAILY Qty: 60 0RF Rx Instructions: Take 30 minutes before breakfast albuterol sulfate 90 mcg/actuation HFA aerosol inhaler See Rx Instructions .ROUTE .COMPLEX Qty: 8.5 2RF Dose Instruction: INHALE 2 PUFFS EVERY 6 HOURS NEEDED FOR SHORTNESS OF BREATH Rx Instructions: INHALE 2 PUFFS EVERY 6 HOURS NEEDED FOR SHORTNESS OF BREATH Referrals / Follow Up: Nick Blackwell MD [Primary Care Provider] - Disposition Disposition (needs filled in before D/C Order can be placed): Home, Self Care
[2023-06-20 14:11] VITALS: BP 138/86; PULSE 79; RESP 18; TEMP 36.3; O2SAT 100
--- NOTE | 2023-06-20 17:10 | PCM.DC.SUM ---
Providers Date of Admission: 06/16/23 Date of Discharge: 06/20/23 Primary Care Physician: Dr. Nick Blackwell MD Reason For Visit: ALCOHOL WITHDRAWAL Diagnosis Discharge Diagnosis (1) Alcohol withdrawal: Status: Acute Code(s): F10.939 - Alcohol use, unspecified with withdrawal, unspecified Qualifiers: Complication of substance-induced condition: uncomplicated Qualified Code(s): F10.930 - Alcohol use, unspecified with withdrawal, uncomplicated Plan 53-year-old gentleman was admitted with acute alcohol withdrawal symptoms with tremors generalized feeling ill, shaking, anxiety and restlessness. Patient last drink was the day before admission. Patient has been drinking vodka, high proof more than 1 month history of relapse and was sober for years and then started drinking again. In ED he received 1 dose of lorazepam and then further admitted. 1. Acute alcohol withdrawal syndrome with history of chronic alcohol use and dependence and tolerance: Patient is being admitted to [facility] floor Last drink was on the . Since then he has been shaking and having general malaise. He has not had any history of alcohol withdrawal seizures nor delirium tremens. . Patient on phenobarbital based order set along with other adjunctive medications gabapentin, Bentyl, Vistaril, clonidine, Klonopin as needed for alcohol withdrawal symptom control. Patient is on thiamine and folate acid. CIWA monitor. manager supply consulted. Patient declined outpatient rehab. He said he wants to go home. Chronic conditions Seizures: Posttraumatic with subdural hematoma, intraparenchymal hemorrhage. Patient has been seizure-free for about a year. Continue w cenobamate, divalproex, levetiracetam, zonisamide. Pt may use his own as he brought them with him. GERD: continue w PPI HTN: continue w amlodipine COPD: continue w albuterol VTE prophylaxis: Not indicated as patient is low risk. Early ambulation encouraged. Discharge medication reconciliation done. Discharge follow-up instructions completed. Discharge process discussed with the patient and all questions were answered to patient's satisfaction. Total time spent, exact 35 minutes on discharge meds reconciliation, examination, coordination of care with nurses and ancillary staff, review of imaging and blood test and discussion with the patient on follow-up instructions. Medications at Discharge Home Medications omeprazole 40 mg capsule,delayed release 40 mg PO DAILY #60 caps 05/17/23 amlodipine 5 mg tablet 5 mg PO DAILY #30 tabs 05/28/23 cenobamate 200 mg tablet (Xcopri) 200 mg PO DAILY #30 tabs 06/03/23 divalproex 500 mg tablet,delayed release 500 mg PO BID #60 tabs 06/03/23 levetiracetam 750 mg tablet 1,500 mg (2 x 750 mg) PO BID #120 tabs 06/03/23 zonisamide 100 mg capsule 300 mg (3 x 100 mg) PO QHS #90 caps 06/03/23 albuterol sulfate 90 mcg/actuation aerosol inhaler See Rx Instructions .Route .COMPLEX #8.5 grams 06/05/23 folic acid 1 mg tablet 1 mg PO DAILY@0800 30 days #30 tabs 06/20/23 thiamine HCl (vitamin B1) 100 mg tablet (Vitamin B-1) 100 mg PO DAILYCM #30 tabs 06/20/23 Weight / BMI Weight Weight: 196 lb 8 oz Body Mass Index (BMI) 27.3 ABG / Lab / Microbiology Data 06/16/23 12:24 06/16/23 12:24 D/C Instructions Discharge Diet: No restrictions Weight Bearing Status: Weight bearing as tolerated Call your doctor if you observe: Fever of 101 or Higher, Coldness, Increased Pain, Numbness or Tingling, Change in Color, Inability to urinate, Inability to have a bowel movement, Shortness of breath, Dizziness, Fainting spells, Swelling in the ankles, Chest pain, Prolonged hiccupping, Increased palpitations (irregular heartbeat) and Calf discomfort When: IN 2 WEEKS Meaningful Use Info Meaningful Use Diagnoses (Choose all that apply): None applicable Discharge Plan Admission Admit Date/Time: 06/16/23 14:08 Primary Reason for Your Visit: Acute alcohol withdrawal syndrome Attending Provider: Tera Bloom Primary Care Provider: Nick Blackwell Consulting Providers: Sanya Caldwell Instructions Forms: Work / School Excuse Discharge Orders/Prescriptions Prescriptions: New thiamine HCl (vitamin B1) [Vitamin B-1] 100 mg Tablet 100 mg PO DAILYCM Qty: 30 2RF folic acid 1 mg Tablet 1 mg PO DAILY@0800 30 Days Qty: 30 2RF Continued amlodipine 5 mg tablet 5 mg PO DAILY Qty: 30 1RF levetiracetam 750 mg tablet 1,500 mg PO BID Qty: 120 5RF divalproex 500 mg tablet,delayed release (DR/EC) 500 mg PO BID Qty: 60 5RF Xcopri 200 mg tablet 200 mg PO DAILY Qty: 30 4RF zonisamide 100 mg capsule 300 mg PO QHS Qty: 90 5RF omeprazole 40 mg capsule,delayed release(DR/EC) 40 mg PO DAILY Qty: 60 0RF Rx Instructions: Take 30 minutes before breakfast albuterol sulfate 90 mcg/actuation HFA aerosol inhaler See Rx Instructions .ROUTE .COMPLEX Qty: 8.5 2RF Dose Instruction: INHALE 2 PUFFS EVERY 6 HOURS NEEDED FOR SHORTNESS OF BREATH Rx Instructions: INHALE 2 PUFFS EVERY 6 HOURS NEEDED FOR SHORTNESS OF BREATH Referrals / Follow Up: Nick Blackwell MD [Primary Care Provider] - Disposition Disposition (needs filled in before D/C Order can be placed): Home, Self Care Charges/Coding Visit Charges Inpatient E&M: 88028 Disch Hosp >30min
== END 2023-06-20 15:25 | disposition home or self-care (01) | DRG 775 ==
LOC: ED 13:57 → MS3 15:11
PROVIDERS: Emergency Provider Emergency Medicine; PCP Internal Medicine; Visit Provider Internal Medicine
DX: F10.239 Alcohol dependence with withdrawal, unspecified (principal); R56.1 Post traumatic seizures; J44.9 Chronic obstructive pulmonary disease, unspecified; I10 Essential (primary) hypertension; K21.9 Gastro-esophageal reflux disease without esophagitis; F17.210 Nicotine dependence, cigarettes, uncomplicated; Y90.2 Blood alcohol level of 40-59 mg/100 ml; Z79.899 Other long term (current) drug therapy; Z87.820 Personal history of traumatic brain injury; Z63.72 Alcoholism and drug addiction in family
CPT/HCPCS: 80048; 80076; 80164; 80307; 81001; 82077; 83735; 85025; 85610; 99285; J7030; A4216

== ENCOUNTER → 2023-09-13 | Outpatient (CLI) | payer MEDICAID, SELFPAY ==
--- NOTE | 2023-09-13 12:39 | MRI_ITS ---
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 TECHNIQUE: Multiplanar and multisequence MR images of the brain were obtained after the intravenous administration of 17 mL Melanie scan. 478 images. COMPARISON: CT 03/11/2021. FINDINGS: BRAIN PARENCHYMA: Left temporal encephalomalacia with surrounding gliosis and old hemorrhage. Very mild periventricular white matter changes. No enhancing lesion in the brain parenchyma. No abnormal focus of restricted diffusion. No acute intracranial hemorrhage identified. CSF SPACES: Ex vacuo dilatation of the left temporal horn. Mild volume loss. No significant midline shift or other mass effect.No extra-axial fluid collection. VASCULAR SYSTEM: Major intracranial flow voids are maintained. PARANASAL SINUSES AND MASTOID AIR CELLS: No significant air fluid levels. ORBITS: Artifact from left lateral orbital hardware. MRI/Brain W/WO Contrast IMPRESSION: No evidence for enhancing intracranial mass. Left temporal encephalomalacia, compatible with the history of prior trauma. Mild chronic involutional and white matter changes. Electronically Signed: Ifeoma Salas MD at 14:27 EST ,
[2023-09-13 13:14] LABS: CREATININE FINGERSTICK < 1.0 mg/dL (0.70-1.30); EGFR FINGERSTICK > 60.0000 mL/min (>60)
== END | disposition home or self-care (01) ==
LOC: MRI 12:32
PROVIDERS: PCP Internal Medicine; Referring Provider Psychiatry & Neurology Neurology; Visit Provider Psychiatry & Neurology Neurology
DX: G40.909 Epilepsy, unspecified, not intractable, without status epilepticus (principal); Z87.820 Personal history of traumatic brain injury
CPT/HCPCS: 70553; A9575

== ENCOUNTER → 2023-09-24 | Outpatient (CLI) | payer MEDICAID, SELFPAY ==
[2023-09-24 16:48] LABS: Absolute Lymphocyte Count 1.46 X10^3/uL (0.83-4.51); Absolute Neutrophil Count 3.2 X10^3/uL (2.0-7.7); Basophil# 0.03 X10^3/uL; Basophil% 0.6 % (0-1); Eosinophil# 0.21 X10^3/uL; Eosinophils% 3.9 % (0-5); Hematocrit 44.3 % (40-54); Lymphocyte # 1.46 X10^3/ul (0.83-4.51); Lymphocyte % 27.3 % (19-41); Mean Corp Hgb Conc 33.9 g/dL (32-36); Mean Corpuscular Hgb 36.9 pg (27.0-32.0); Mean Corpuscular Volume 109.1 fL (80-94); Mean Platelet Vol. 9.3 fl (6.2-12.0); Monocyte# 0.43 X10^3/uL; NRBC Flagged by Analyzer 0 % (0-5); Neutrophil % 59.8 % (47-70); POSITIVE MORPHOLOGY YES; Platelet Count 317 K/mm3 (150-450); RBC Distribution Width CV 16.6 % (11.6-14.6); RBC Distribution Width SD 67.6 fl (35.1-43.9); Red Blood Count 4.06 M/mm3 (4.6-6.2); White Blood Count 5.4 K/mm3 (4.4-11.0)
[2023-09-24 16:57] LABS: Differential Indicated SCAN CRITERIA MET
[2023-09-24 17:11] LABS: Valproic Acid (Depakene) Level 47 ug/mL (50-100)
[2023-09-24 17:45] LABS: Vitamin B12 422 pg/mL (211-911)
[2023-09-24 17:56] LABS: ALB/GLOB Ratio 0.9 RATIO (0.9-2.4); AST(SGOT) 57 U/L (15-37); Alanine Aminotransfer ALT/SGPT 87 U/L (16-61); Albumin, Serum 3.3 g/dL (3.2-5.0); Alkaline Phosphatase 286 U/L (45-117); Anion Gap 5 (5-15); BUN 8 mg/dL (7-18); BUN/Creat Ratio 10.5 RATIO (10-20); Calcium,Total 8.5 mg/dL (8.5-10.1); Chloride 103 mmol/L (98-107); Creatinine, Serum 0.76 mg/dL (0.70-1.30); EST Glomerular Filtration Rate 114 mL/min (>60); Est Glom Filt Rate - Afr Amer 139 mL/min (>60); Globulin 3.7 g/dL (2.2-4.2); Glucose 105 mg/dL (74-106); Potassium 3.7 mmol/L (3.5-5.1); Sodium Level 133 mmol/L (136-145); T4 Free Direct 0.85 ng/dL (0.76-1.46); Thyroid Stim Hormone (TSH) 2.65 uIU/mL (0.358-3.74)
[2023-09-24 18:01] LABS: Magnesium 2.2 mg/dL (1.6-2.6)
[2023-09-25 12:29] LABS: GGTP 3004 U/L (15-85)
[2023-09-30 17:07] LABS: KEPPRA (LEVETIRACETAM) 18.2 ug/mL (10.0-40.0); Vitamin B1, Thiamine 115.9 nmol/L (66.5-200.0)
== END | disposition home or self-care (01) ==
PROVIDERS: Psychiatry & Neurology Neurology; PCP Internal Medicine; Referring Provider Internal Medicine; Visit Provider Internal Medicine
DX: K52.9 Noninfective gastroenteritis and colitis, unspecified (principal); G40.909 Epilepsy, unspecified, not intractable, without status epilepticus
CPT/HCPCS: 36415; 80053; 80164; 80177; 82140; 82607; 82746; 82977; 83735; 84425; 84439; 84443; 85025

== ENCOUNTER → 2023-09-25 | Outpatient (CLI) | payer MEDICAID, SELFPAY ==
[2023-09-29 18:07] LABS: Calprotectin, Stool 16 ug/g (0-120)
== END | disposition home or self-care (01) ==
LOC: LABSPEC 15:35
PROVIDERS: PCP Internal Medicine; Visit Provider Internal Medicine
DX: K52.9 Noninfective gastroenteritis and colitis, unspecified (principal)
CPT/HCPCS: 83630; 83993; 87493; 87506

== ENCOUNTER → 2023-11-08 | Outpatient (CLI) | payer MEDICAID, SELFPAY | END | disposition home or self-care (01) | LOC: SL 09:23 | PROVIDERS: PCP Internal Medicine; Referring Provider Psychiatry & Neurology Neurology; Visit Provider Psychiatry & Neurology Neurology | DX: G47.10 Hypersomnia, unspecified (principal) | CPT/HCPCS: 95801 ×2; 95806 ==

== ENCOUNTER 2024-01-08 03:24 | Inpatient (IN) | payer MEDICAID, SELFPAY ==
[2024-01-08] VITALS (10 sets, daily range): BP systolic 126–191; BP diastolic 81–109; PULSE 66–105; RESP 16–20; TEMP 36.2–36.9; O2SAT 95–98; BMI 29.0; BMI 26.2
--- NOTE | 2024-01-08 03:49 | EDS_ITS ---
HPI History of Present Illness Chief Complaint: ETOH Intox Informant: patient and other (Outside ER physician) Narrative Narrative: 53-year-old male transferred from outside hospital for alcohol detox. Patient states his last drink was yesterday afternoon, usually drinks about half of a large bottle of scotch per day on average. Last time he went to detox was about a year and a half ago. He wants to stop drinking. Does not use any other substances. Usually has withdrawal symptoms in the mornings, he has withdrawal symptoms right now which include anxiety, shakiness, he states he is having some visual hallucinations that are nothing specific. He denies any vomiting or abdominal pain right now. He has had some diarrhea for the past month, has been taken Imodium for it. He also has a history of seizures because of a TBI but no seizures today. [facility] Medical History Alcoholic liver disease Elevated liver enzymes Chronic diarrhea Blood glucose elevated Preventative health care Nausea RLQ abdominal pain Health care maintenance Colon cancer screening Seizure Chronic headaches History of alcohol abuse Seasonal allergies Arthritis Back pain GI problem Hearing problem History of pneumonia Vision problem History of skull fracture Home Medications ?Medication ?Instructions ?Recorded ?Last Taken ?Type amlodipine 5 mg tablet See Rx Instructions .Route 09/24/23 Unknown Rx .COMPLEX #90 tabs omeprazole 40 mg capsule,delayed 40 mg PO DAILY #90 caps 09/24/23 Unknown Rx release cenobamate 200 mg tablet (Xcopri) 200 mg PO DAILY #30 tabs 10/15/23 Unknown Rx divalproex 500 mg tablet,delayed 500 mg PO BID #60 tabs 10/15/23 Unknown Rx release folic acid 1 mg tablet 1 mg PO DAILY@0800 30 days #30 tabs 10/15/23 Unknown Rx levetiracetam 750 mg tablet 1,500 mg (2 x 750 mg) PO BID #120 10/15/23 Unknown Rx tabs levocarnitine 330 mg tablet 330 mg PO TID #90 tabs 10/15/23 Unknown Rx oxybutynin chloride 10 mg 10 mg PO QHS #30 tabs 10/15/23 Unknown Rx tablet,extended release 24 hr zonisamide 100 mg capsule 300 mg (3 x 100 mg) PO QHS #90 caps 10/15/23 Unknown Rx Allergy/AdvReac Type Severity Reaction Status Date / Time codeine Allergy Intermediate NIGHTMARES Verified 10/15/23 08:17 hydrocodone bitartrate (From AdvReac Intermediate Other Verified 10/15/23 08:17 Vicodin) Family History Mother Suicide Depression Arthritis Anxiety Father Suicide Alcoholism Grandfather Alcoholism Surgical History History of cholecystectomy History of facial surgery H/O shoulder surgery Social History household members: friend(s) housing: apartment Smoking Status: Current every day smoker tobacco type: cigarettes alcohol intake: never substance use type: does not use ROS ROS ED Constitutional Constitutional ED: Reports body ache(s) and fatigue; Denies chills or fever(s) Eyes Eyes: Denies change in vision or diplopia ENT ENT ED: Denies rhinorrhea or sore throat Cardiovascular Cardiovascular: Denies chest pain or palpitations Respiratory/Chest Respiratory/Chest: Denies cough or dyspnea Gastrointestinal Gastrointestinal: Reports diarrhea; Denies abdominal pain, nausea or vomiting Genitourinary Genitourinary ED: Denies dysuria or hematuria Musculoskeletal Musculoskeletal: Denies back pain or neck pain Integumentary Denies abscess or rash Neurologic Neurologic: Denies headache(s), paresthesias or weakness Psychiatric Psychiatric: Reports as per HPI, anxiety and hallucinations; Denies suicidal thoughts EXAM Physical Exam Const Vital Signs: 01/08/24 03:24 01/08/24 03:39 01/08/24 03:39 Temperature 97.1 F L Temperature Source Temporal Pulse Rate 103 H Respiratory Rate 19 H Blood Pressure 191/109 H 191/109 H 191/109 H Blood Pressure Mean 136 136 136 Blood Pressure Source Monitor Blood Pressure Position Semi-Fowlers Blood Pressure Location Right Arm Pulse Ox 97 Oxygen Delivery Method Room Air 01/08/24 04:03 Temperature 97.1 F L Temperature Source Pulse Rate 105 H Respiratory Rate 19 H Blood Pressure 160/98 H Blood Pressure Mean 118 Blood Pressure Source Blood Pressure Position Blood Pressure Location Pulse Ox 98 Oxygen Delivery Method Positive well nourished and well developed Constitutional Narrative: Tremulous, no distress General Appearance ED: well developed and NAD HEENT Reports moist mucous membranes normocephalic and atraumatic Eyes PERRL and EOMs intact bilaterally Neck full ROM and supple Resp normal respiratory effort and clear to auscultation bilaterally Cardio regular rate, regular rhythm and no murmurs Rate: tachycardic GI non-tender and non-distended Auscultation: normoactive bowel sounds Palpation: soft Back/Spine no CVA tenderness General Back: other FROM Extremity normal to inspection General Extremety ED: Negative for edema, pulses abnormal or tenderness General Extremity: Negative for edema or pulses abnormal Neuro oriented x3, CN's II-XII intact bilaterally and no sensory deficits noted Sensorium / Orientation: awake and alert Motor Exam: strength 5/5 throughout Psych mental status grossly normal and thought process normal Skin no rashes or lesions noted and no wounds MDM MDM MDM Narrative Medical decision making narrative: I reviewed labs from the outside hospital. Sodium 134, the other electrolytes are within normal limits his magnesium is a little low 1.6 but his potassium is normal at 4.0. Blood counts are unremarkable. EKG sinus tachycardia no acute injury pattern and otherwise normal. Chest x-ray was interpreted by the radiologist as unremarkable for anything acute. I do not have the images to review but his lungs are clear and I do not think he needs a new one. His alcohol was in the 120s around 8-9 hours prior to arrival here and my examination. For an alcoholic, being in withdrawal right now would be appropriate at this level. Started on phenobarbital. Discussed with hospitalist for admission for detox. History & Record Review Additional record(s) reviewed:: Prior labs (Labs performed less than 12 hours ago from outside hospital reviewed. ) Management Discussion w/another healthcare provider: Hospitalist Discharge Plan Dx/Rx/DC Orders Clinical Impression: Alcohol dependence, Alcohol withdrawal Disposition Disposition: Acute Care Hospital [facility]
[2024-01-08] MEDS: Phenobarbital 32.4 MG Tablet 97.2 MG PO (04:02)
[2024-01-08] MEDS: Ibuprofen 200 MG Tablet 400 MG PO (04:20)
--- NOTE | 2024-01-08 05:06 | PCM.HP.STD ---
[facility] - General General Date of Admission: 01/08/24 Date of Service: 01/08/24 Chief Complaint: Wants alcohol detox. 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 ER complaining of wanting alcohol detox. Mr. Hensley reports his symptoms began approximately 1 day prior to admission after he stopped drinking in the afternoon. He states he usually drinks about half of a large bottle of scotch per day on average - but now he claims he wants to stop drinking. He denies any other illicit drug use. He typically has withdrawal symptoms in the mornings and he is having them right now with anxiety, shakiness and some mild visual hallucinations that he cannot characterize. He denies associated fever, chills, nausea, vomiting or abdominal pain but he does admit to diarrhea for the past month for which she is taking Imodium. He also denies any recent seizure activity. In the ER he was diagnosed with acute alcohol withdrawal in the setting of chronic alcohol abuse and he was then admitted to the general medical floor for ongoing care for stay that is expected to extend beyond 2 midnights. [facility] Medical History Alcoholic liver disease Elevated liver enzymes Chronic diarrhea Blood glucose elevated Preventative health care Nausea RLQ abdominal pain Health care maintenance Colon cancer screening Seizure Chronic headaches History of alcohol abuse Seasonal allergies Arthritis Back pain GI problem Hearing problem History of pneumonia Vision problem History of skull fracture Home Medications ?Medication ?Instructions ?Recorded ?Last Taken ?Type amlodipine 5 mg tablet See Rx Instructions .Route 09/24/23 Unknown Rx .COMPLEX #90 tabs omeprazole 40 mg capsule,delayed 40 mg PO DAILY #90 caps 09/24/23 Unknown Rx release cenobamate 200 mg tablet (Xcopri) 200 mg PO DAILY #30 tabs 10/15/23 Unknown Rx divalproex 500 mg tablet,delayed 500 mg PO BID #60 tabs 10/15/23 Unknown Rx release folic acid 1 mg tablet 1 mg PO DAILY@0800 30 days #30 tabs 10/15/23 Unknown Rx levetiracetam 750 mg tablet 1,500 mg (2 x 750 mg) PO BID #120 10/15/23 Unknown Rx tabs levocarnitine 330 mg tablet 330 mg PO TID #90 tabs 10/15/23 Unknown Rx oxybutynin chloride 10 mg 10 mg PO QHS #30 tabs 10/15/23 Unknown Rx tablet,extended release 24 hr zonisamide 100 mg capsule 300 mg (3 x 100 mg) PO QHS #90 caps 10/15/23 Unknown Rx Allergy/AdvReac Type Severity Reaction Status Date / Time codeine Allergy Intermediate NIGHTMARES Verified 10/15/23 08:17 hydrocodone bitartrate (From AdvReac Intermediate Other Verified 10/15/23 08:17 Vicodin) Family History Mother Suicide Depression Arthritis Anxiety Father Suicide Alcoholism Grandfather Alcoholism Surgical History History of cholecystectomy History of facial surgery H/O shoulder surgery Social History household members: friend(s) housing: apartment Smoking Status: Current every day smoker tobacco type: cigarettes alcohol intake: never substance use type: does not use ROS ROS Narrative Review of systems: General: Patient admits to body aches and fatigue but denies fever or chills. HENT: Denies headache, denies stuffy nose, denies sore throat EYES: Denies changes in vision or discharge from eyes. Resp: Denies cough, denies shortness of breath Cardiac: Denies chest pain, palpitations or heart racing. GI: Patient admits to chronic diarrhea for the past month treated with Imodium as per HPI. He denies abdominal pain, nausea or vomiting. : Denies changes in urination Extremity: Denies swelling Musculoskeletal: Feels somewhat generally weak and unwell but he denies arthralgias or myalgias. Neuro: Patient denies headache, paresthesias or focal neurologic weakness. Heme: Denies any bleeding or bruising Skin: Denies rashes Psychiatric: Patient admits to anxiety and nonspecific hallucinations but he denies suicidal thoughts. Endocrine: No polyuria, polydipsia or polyphagia. The rest of the 14 point ROS was negative except for positives in HPI. Vital Signs Vital Signs Vital Signs: 01/08/24 03:24 01/08/24 03:39 01/08/24 03:39 Temperature 97.1 F L Temperature Source Temporal Pulse Rate 103 H Respiratory Rate 19 H Blood Pressure 191/109 H 191/109 H 191/109 H Blood Pressure Mean 136 136 136 Blood Pressure Source Monitor Blood Pressure Position Semi-Fowlers Blood Pressure Location Right Arm Pulse Ox 97 Oxygen Delivery Method Room Air 01/08/24 04:03 Temperature 97.1 F L Temperature Source Pulse Rate 105 H Respiratory Rate 19 H Blood Pressure 160/98 H Blood Pressure Mean 118 Blood Pressure Source Blood Pressure Position Blood Pressure Location Pulse Ox 98 Oxygen Delivery Method Weight Weight: 202 lb 6.15 oz Body Mass Index (BMI) 29.0 Physical Exam Const alert and oriented x3 Constitutional Narrative: Patient appears tremulous and fatigued. General Appearance: cooperative HEENT normocephalic, head/scalp atraumatic, hearing grossly normal bilaterally and moist oral mucous membranes Eyes PERRL and EOMs intact bilaterally Neck no lymphadenopathy and supple Resp normal respiratory effort, no retractions, no use of accessory muscles and clear to auscultation bilaterally Cardio regular rate and regular rhythm GI normal to inspection, nondistended, normoactive bowel sounds, soft to palpation, non-tender and non-distended Extremity normal to inspection and full ROM Skin Skin Narrative: Patient has no evidence of rash. Neuro oriented x3, CN's II-XII intact bilaterally, moves all extremities and no focal motor deficits Sensorium / Orientation: awake, alert, oriented to person, oriented to place and oriented to time Speech: speech normal Motor Exam: strength 5/5 throughout Psych Mood & Affect: anxious Results Medical Records Data Attestation: I reviewed the patient's medical records Lab / Micro Data Attestation: I reviewed the patient's lab results. Assessment & Plan Assessment/Plan (1) Alcohol withdrawal: QUALIFIERS: Complication of substance-induced condition: uncomplicated Qualified Code(s): F10.930 - Alcohol use, unspecified with withdrawal, uncomplicated (2) Alcohol dependence: QUALIFIERS: Substance use status: in withdrawal Complication of substance-induced condition: with perceptual disturbance Qualified Code(s): F10.232 - Alcohol dependence with withdrawal with perceptual disturbance (3) Alcoholic liver disease: (4) Chronic diarrhea: (5) Epilepsy: QUALIFIERS: Epilepsy type: unspecified Intractability: not intractable Status epilepticus: without status epilepticus Qualified Code(s): G40.909 - Epilepsy, unspecified, not intractable, without status epilepticus (6) History of traumatic brain injury: PLAN: Plan 1. Acute alcohol withdrawal in the setting of chronic alcohol abuse and known alcoholic liver disease with previous stay here for alcohol detoxification (2022) - Admit to general medical floor for treatment under alcohol detoxification protocol primarily consisting of phenobarbital taper. Alcohol cessation was strongly encouraged. Otherwise, continue supportive care and monitor for improvement. 2. History of posttraumatic subdural hematoma with intraparenchymal hemorrhage; with subsequent seizure disorder complicating #1 - Resume current AEDs and give as needed IV Ativan for breakthrough seizure activity. 3. Depression with anxiety compounding #1 & #2 with the patient likely self-medicating with alcohol - Continue supportive care. Patient would likely benefit from outpatient psychiatric counseling. 4. Chronic diarrhea for the past month adding to the pathology of #1 - #3 - Check stool studies and placed on enteric precautions. Hold off on antibiotics as this issue is likely due to chronic alcoholism. 5. Tobacco abuse; with subsequent COPD - Stable with no evidence of flare at this time. Continue as needed nebulizers. 6. Essential hypertension - Resume home regimen plus give as needed IV hydralazine for systolic blood pressure greater than 160 mmHg. 7. Overweight; with BMI of 29 this admission - Weight loss will be recommended. 8. Overactive bladder - Continue current treatment. 9. History of cholecystectomy - Noted. 10. GERD - Resume PPI. 11. Chronic headaches - Noted. 12. Osteoarthritis; with chronic back pain - Give ibuprofen as needed. 13. DVT prophylaxis - Lovenox 40 mg subcu daily. Total time: Approximately 75 minutes. Charges/Coding Visit Charges Inpatient E&M: 46061 Init Hosp L3
[2024-01-08] MEDS: Phenobarbital 32.4 MG Tablet 64.8 MG PO ×5 (06:37→22:16)
[2024-01-08] MEDS: Lactated Ringers 1,000 ML 125 ML IV (06:37)
[2024-01-08] MEDS: metroNIDAZOLE 500 MG/100 ML BAG 100 MG IV ×2 (06:37→13:13)
[2024-01-08] MEDS: Divalproex Sodium 250 MG Tablet 500 MG PO ×2 (08:14→22:19)
[2024-01-08] MEDS: Enoxaparin 40 MG/0.4 ML Syringe SC (08:14)
[2024-01-08] MEDS: amLODIPine 5 MG Tablet PO (08:14)
[2024-01-08] MEDS: Pantoprazole Sodium 40 MG Tablet PO (08:14)
[2024-01-08] MEDS: Folic Acid 1 MG Tablet PO (08:15)
[2024-01-08] MEDS: levETIRAcetam 750 MG Tablet 1500 MG PO ×2 (08:15→22:18)
[2024-01-08] MEDS: Thiamine Hydrochloride 100 MG Tablet PO (08:15)
[2024-01-08] MEDS: Lactobacillis Acidophilus 2 CAP PO ×2 (08:22→22:25)
[2024-01-08] MEDS: Dicyclomine 10 MG Capsule 20 MG PO (10:20)
[2024-01-08] MEDS: Ibuprofen 400 MG Tablet PO (10:20)
--- NOTE | 2024-01-08 10:25 | ADDICTION ---
This underwriter met with PT to conduct ASAM, MSE, AUDIT, DUDIT assessments and to plan for d/c. PT A+Ox4 and participated actively. All assessments completed and placed in PT's chart. PT plans to f/u with [facility]. Pt denied a need for transport post d/c.
[2024-01-08] MEDS: Gabapentin 300 MG Capsule PO ×2 (11:40→22:16)
--- NOTE | 2024-01-08 13:04 | PCM.PN.HOSP ---
Reason for Visit Reason for Visit: Alcohol detoxification Subjective Subjective Mr. Poon is a 53-year-old white male who presented to the emergency department at [facility] on 01/08/2024 as a ED to ED transfer from [facility] requesting detox from alcohol. He has a known history of alcohol abuse and was recently discharged here in June for the same. He does typically have withdrawal symptoms in the morning which include anxiety, shakiness and some visual hallucinations however they resolved with drinking. He is currently drinking about half a large bottle of scotch daily. His last drink was on the afternoon of 01/07/2024. He does have a history of seizures due to traumatic brain injury previously but has not had any seizures related to his withdrawal. Vital signs on presentation showed a temperature of 97.1, heart rate 103, respiratory was 19, blood pressure was 191/109 with a repeat at 160/98, pulse ox was 97% on room air. Outside hospital labs were reviewed and his CBC was overtly unremarkable however his chemistry panel showed mild hyponatremia with a sodium of 134 and hypomagnesemia with a magnesium level of 1.6. His potassium was normal. EKG was sinus tachycardia chest x-ray was unremarkable for any acute findings. He was started on phenobarbital taper at the outside hospital and admitted to the hospital and placed on a phenobarbital taper as well as supportive medication for withdrawal symptoms and 180 was consulted. Objective Data Objective Data Vital Signs: Vital Signs Temp Pulse Resp BP Pulse Ox O2 Del Method 98.4 F 75 16 145/87 H 95 Room Air 01/08/24 10:12 01/08/24 10:12 01/08/24 10:12 01/08/24 10:12 01/08/24 10:12 01/08/24 10:12 Oxygen Delivery Method Room Air Weight: 82.8 kg Body Mass Index (BMI) 26.2 Intake & Output: Intake and Output for Last 24 Hours 01/06/24 01/07/24 01/08/24 23:59 23:59 23:59 Intake Total 100 / 100 Balance 100 / 100 Assessment & Plan Assessment/Plan (1) Alcohol withdrawal: QUALIFIERS: Complication of substance-induced condition: uncomplicated Qualified Code(s): F10.930 - Alcohol use, unspecified with withdrawal, uncomplicated (2) Alcohol dependence: QUALIFIERS: Substance use status: in withdrawal Complication of substance-induced condition: with perceptual disturbance Qualified Code(s): F10.232 - Alcohol dependence with withdrawal with perceptual disturbance (3) Alcoholic liver disease: (4) Chronic diarrhea: PLAN: Plan Acute alcohol withdrawal in the setting of chronic alcohol abuse -Last drink was afternoon of 01/07/2024 -Drinks about a half a bottle of scotch a day -Continue phenobarbital taper -Continue supportive medication for symptom management advisor withdrawal -Continue thiamine and folate -Stop IV fluids -180 consultation for assistance with discharge planning Hypomagnesemia -Replaced at outside ED -Recheck in a.m. Subacute diarrhea -Has been ongoing for about the past month -Suspect may have chronic pancreatitis -Infectious workup is negative thus far but ova and parasites are pending -Stool lactoferrin is negative -As needed Imodium available -Stop antibiotics with negative workup thus far History of alcoholic liver disease -CMP pending for a.m. -Recommend alcohol cessation Hypertension -Continue home amlodipine GERD -Continue home PPI History of TBI/seizure disorder -Previous traumatic subdural hematoma and intraparenchymal hemorrhage -Continue home zonisamide -Continue Depakote -Restart levocarnitine at discharge -Patient is also currently on phenobarb for alcohol withdrawal Overactive bladder/nocturnal enuresis -Continue home oxybutynin Tobacco abuse -Recommend cessation -Nicotine patch ordered DVT prophylaxis -Continue subcu enoxaparin daily CODE STATUS -Full code Charges/Coding Visit Charges Inpatient E&M: 64739 Subs Hosp L2
--- NOTE | 2024-01-08 13:37 | NURSING ---
Martin notified per pt's request that he is an inpatient here, and informed him no visitors are allowed. Verbalized understanding. Stated he might call, informed that would be find, but unable to give messages to patient. RepliedI understand.
[2024-01-08] MEDS: Albuterol 2.5 MG/3 ML VIAL.NEB. INHALATION (21:18)
[2024-01-08] MEDS: traZODone 100 MG Tablet PO (22:17)
[2024-01-08] MEDS: ZONISAMIDE 100 MG CAPSULE 300 MG PO (22:25)
[2024-01-08] MEDS: Tolterodine Tartrate 2 MG CAP.SA PO (22:25)
[2024-01-09] VITALS (8 sets, daily range): BP systolic 99–146; BP diastolic 72–90; PULSE 62–100; RESP 16–20; TEMP 36.5–36.8; O2SAT 98–100; BMI 27.6
[2024-01-09] MEDS: Phenobarbital 32.4 MG Tablet 64.8 MG PO ×6 (02:42→22:41)
[2024-01-09 08:02] LABS: ALB/GLOB Ratio 0.9 RATIO (0.9-2.4); AST(SGOT) 77 U/L (15-37); Alanine Aminotransfer ALT/SGPT 91 U/L (16-61); Albumin, Serum 2.9 g/dL (3.2-5.0); Alkaline Phosphatase 241 U/L (45-117); Anion Gap 7 (5-15); BUN 5 mg/dL (7-18); BUN/Creat Ratio 6.9 RATIO (10-20); Calcium,Total 8.1 mg/dL (8.5-10.1); Chloride 103 mmol/L (98-107); Creatinine, Serum 0.72 mg/dL (0.70-1.30); EST Glomerular Filtration Rate 121 mL/min (>60); Est Glom Filt Rate - Afr Amer 146 mL/min (>60); Globulin 3.2 g/dL (2.2-4.2); Glucose 123 mg/dL (74-106); Magnesium 1.8 mg/dL (1.6-2.6); Phosphorus 2.9 mg/dL (2.5-4.9); Potassium 3.7 mmol/L (3.5-5.1); Protein, Total 6.1 g/dL (6.4-8.2); Sodium Level 133 mmol/L (136-145); Thyroid Stim Hormone (TSH) 2.81 uIU/mL (0.358-3.74)
[2024-01-09 08:33] LABS: Absolute Lymphocyte Count 1.41 X10^3/uL (0.83-4.51); Absolute Neutrophil Count 4.5 X10^3/uL (2.0-7.7); Basophil# 0.03 X10^3/uL; Basophil% 0.5 % (0-1); Eosinophil# 0.21 X10^3/uL; Eosinophils% 3.2 % (0-5); Hematocrit 40.6 % (40-54); Hemoglobin 13.9 g/dL (13.0-16.5); Lymphocyte # 1.41 X10^3/ul (0.83-4.51); Lymphocyte % 21.7 % (19-41); Mean Corp Hgb Conc 34.2 g/dL (32-36); Mean Corpuscular Hgb 33.6 pg (27.0-32.0); Mean Corpuscular Volume 98.1 fL (80-94); Mean Platelet Vol. 9.8 fl (6.2-12.0); Monocyte# 0.37 X10^3/uL; Monocyte% 5.7 % (0-10); NRBC Flagged by Analyzer 0 % (0-5); Neutrophil # 4.46 X10^3/uL (2.7-7.7); Neutrophil % 68.6 % (47-70); Platelet Count 110 K/mm3 (150-450); RBC Distribution Width CV 12.9 % (11.6-14.6); RBC Distribution Width SD 46.5 fl (35.1-43.9); Red Blood Count 4.14 M/mm3 (4.6-6.2); White Blood Count 6.5 K/mm3 (4.4-11.0)
[2024-01-09] MEDS: Folic Acid 1 MG Tablet PO (09:18)
[2024-01-09] MEDS: amLODIPine 5 MG Tablet PO (09:18)
[2024-01-09] MEDS: Divalproex Sodium 250 MG Tablet 500 MG PO ×2 (09:18→20:57)
[2024-01-09] MEDS: Lactobacillis Acidophilus 2 CAP PO ×2 (09:18→20:56)
[2024-01-09] MEDS: Pantoprazole Sodium 40 MG Tablet PO (09:19)
[2024-01-09] MEDS: levETIRAcetam 750 MG Tablet 1500 MG PO ×2 (09:19→20:56)
[2024-01-09] MEDS: Thiamine Hydrochloride 100 MG Tablet PO (09:19)
[2024-01-09] MEDS: Enoxaparin 40 MG/0.4 ML Syringe SC (09:19)
--- NOTE | 2024-01-09 09:56 | NURSING ---
attempted to reach Martin reynaga- elizabeth at patient's request regarding bringing home meds unable to be provided by [facility], no answer unable to leave vm.
--- NOTE | 2024-01-09 11:19 | NURSING ---
talked with Martin, salesperson [employer]. states he does not have access to patients medications, states are they in his other home [place] and Martin does not have access to them. pharmacy notified
[2024-01-09] MEDS: Albuterol 2.5 MG/3 ML VIAL.NEB. INHALATION ×3 (14:12→23:11)
--- NOTE | 2024-01-09 14:21 | PCM.PN.HOSP ---
Reason for Visit Reason for Visit: Acute alcohol withdrawal Subjective Subjective Patient states he is still feeling internally tremulous but not having any diarrhea, nausea, or vomiting. Appetite is good. No external tremulousness noted. Patient is asking if we can give him a work slip at the time of discharge. I also informed him that the infectious workup for his diarrhea is negative and that we will refer him as an outpatient to gastroenterology for both this and his liver disease. Objective Data Objective Data Vital Signs: Vital Signs Temp Pulse Resp BP Pulse Ox O2 Del Method 98.2 F 89 18 133/89 H 100 Room Air 01/09/24 09:09 01/09/24 14:13 01/09/24 14:13 01/09/24 09:09 01/09/24 09:09 01/09/24 09:14 Oxygen Delivery Method Room Air Weight: 87.7 kg Body Mass Index (BMI) 27.6 Intake & Output: Intake and Output for Last 24 Hours 01/07/24 01/08/24 01/09/24 23:59 23:59 23:59 Intake Total 2227.08 / 2227.08 120 / 120 Balance 2227.08 / 2227.08 120 / 120 Lab / Micro Data 01/09/24 08:13 01/09/24 07:18 Labs: Laboratory Results - last 24 hr 01/09/24 07:18: WBC Cancelled, Corrected WBC Cancelled, RBC Cancelled, Hgb Cancelled, Hct Cancelled, MCV Cancelled, MCH Cancelled, MCHC Cancelled, RDW Std Deviation Cancelled, RDW Coeff of Wilma Cancelled, Plt Count Cancelled, MPV Cancelled, Immature Gran % (Auto) Cancelled, Neut % (Auto) Cancelled, Lymph % (Auto) Cancelled, Upson % (Auto) Cancelled, Eos % (Auto) Cancelled, Baso % (Auto) Cancelled, Absolute Neuts (auto) Cancelled, Absolute Lymphs (auto) Cancelled, Total Counted Cancelled, Neutrophils % (Manual) Cancelled, Band Neutrophils % Cancelled, Lymphocytes % (Manual) Cancelled, Monocytes % (Manual) Cancelled, Eosinophils % (Manual) Cancelled, Basophils % (Manual) Cancelled, Metamyelocytes % Cancelled, Myelocytes % Cancelled, Promyelocytes % Cancelled, Blast Cells % Cancelled, Plasma Cell % (Manual) Cancelled, Other Cells % Cancelled, Nucleated RBC % Cancelled, Nucleated RBCs/100 WBC Cancelled, Differential Comment Cancelled, Diff Path Review Cancelled, Hypersegmented Neuts Cancelled, Atypical Lymphocytes Cancelled, Reactive Lymphocytes Cancelled, Smudge Cells Cancelled, Toxic Granulation Cancelled, Toxic Vacuolation Cancelled, Dohle Bodies Cancelled, Silvia Rods Cancelled, Platelet Estimate Cancelled, Plt Morphology Comment Cancelled, RBC Morphology Cancelled 01/09/24 07:18: RBC Morphology Cancelled, Polychromasia Cancelled, Hypochromasia Cancelled, Basophilic Stippling Cancelled, Anisocytosis Cancelled, Microcytosis Cancelled, Macrocytosis Cancelled, Spherocytes Cancelled, Sickle Cells Cancelled, Target Cells Cancelled, Tear Drop Cells Cancelled, Ovalocytes Cancelled, Stomatocytes Cancelled, [place] Bodies Cancelled, [place] Cells Cancelled, Bite Cells Cancelled, Crenated Cell Cancelled, Acanthocytes (Spur) Cancelled, Rouleaux Cancelled, Schistocytes Cancelled, Sodium 133 L, Potassium 3.7, Chloride 103, Carbon Dioxide 23.0, Anion Gap 7, BUN 5 L, Creatinine 0.72, Estim Creat Clear Calc 133.90, Est GFR (MDRD) Af Amer 146, Est GFR (MDRD) Non-Af 121, BUN/Creatinine Ratio 6.9 L, Glucose 123 H, Calcium 8.1 L, Phosphorus 2.9, Magnesium 1.8, Total Bilirubin 0.70, AST 77 H, ALT 91 H, Alkaline Phosphatase 241 H, Total Protein 6.1 L, Albumin 2.9 L, Globulin 3.2, Albumin/Globulin Ratio 0.9, TSH 2.81 01/09/24 08:13: WBC 6.5, RBC 4.14 L, Hgb 13.9, Hct 40.6, MCV 98.1 H, MCH 33.6 H, MCHC 34.2, RDW Std Deviation 46.5 H, RDW Coeff of Wilma 12.9, Plt Count 110 L, MPV 9.8, Immature Gran % (Auto) 0.300, Neut % (Auto) 68.6, Lymph % (Auto) 21.7, Upson % (Auto) 5.7, Eos % (Auto) 3.2, Baso % (Auto) 0.5, Absolute Neuts (auto) 4.5, Absolute Lymphs (auto) 1.41, Nucleated RBC % 0 Micro: Microbiology 01/08/24 14:55 Stool Stool Lactoferrin - Final 01/08/24 14:55 Stool Enteric Bacteriology - Final 01/08/24 14:55 Stool Clostridioides difficile (PCR) - Final Physical Exam Const alert, oriented x3, no apparent distress and well nourished; Negative for healthy appearing Constitutional Narrative: Slightly overweight, middle-aged, white male, sitting up in bed, appears older than stated age, appears comfortable, does not appear toxic General Appearance: cooperative HEENT head/scalp atraumatic and moist oral mucous membranes Head and Scalp: normocephalic Eyes PERRL and EOMs intact bilaterally Neck no lymphadenopathy and supple Resp normal respiratory effort, no retractions, no use of accessory muscles and clear to auscultation bilaterally Auscultation: Negative for rales, rhonchi or wheezes Cardio regular rate, regular rhythm, S1 normal heart sound, S2 normal heart sound, no murmurs, no rub, no gallops and no clicks GI normal to inspection, nondistended, normoactive bowel sounds, soft to palpation and non-tender Extremity no clubbing, cyanosis or edema Extremity Narrative: Pedal pulses are 2+ Skin Skin Narrative: Patient has no evidence of rash. Neuro oriented x3, moves all extremities and no focal motor deficits Neuro Narrative: No significant tremor is noted Sensorium / Orientation: awake, alert, oriented to person, oriented to place and oriented to time Speech: speech normal Motor Exam: strength 5/5 throughout Psych Psych Narrative: Affect is slightly flat however eye contact is good and patient interacts appropriately Mood & Affect: anxious Assessment & Plan Assessment/Plan (1) Alcohol withdrawal: QUALIFIERS: Complication of substance-induced condition: uncomplicated Qualified Code(s): F10.930 - Alcohol use, unspecified with withdrawal, uncomplicated (2) Alcohol dependence: QUALIFIERS: Substance use status: in withdrawal Complication of substance-induced condition: with perceptual disturbance Qualified Code(s): F10.232 - Alcohol dependence with withdrawal with perceptual disturbance (3) Alcoholic liver disease: (4) Chronic diarrhea: PLAN: Plan Acute alcohol withdrawal in the setting of chronic alcohol abuse -Last drink was afternoon of 01/07/2024 -Drinks about a half a bottle of scotch a day -Continue phenobarbital taper -Continue supportive medication for symptom change management consultant withdrawal -Continue thiamine and folate -Appears to be doing well with no external signs of withdrawal however patient reports being internally anxious and tremulous\ -180 consultation for assistance with discharge planning Hypomagnesemia -Resolved Thrombocytopenia -Appears that his platelet count was normal and September so I overall suspect this is likely related to alcohol toxicity to the marrow and not his liver disease however liver disease is not ruled out at this time as the etiology -CT scan from 2021 showed normal splenic size -Repeat CT in the morning to assess for trend Subacute diarrhea -Has been ongoing for about the past month -Suspect may have chronic pancreatitis -Infectious workup is negative thus far but ova and parasites are pending -Stool lactoferrin is negative -As needed Imodium available -Outpatient follow-up with gastroenterology recommended History of alcoholic liver disease -Patient does appear to have chronic transaminase elevation -Will refer to GI after discharge -Recommend alcohol cessation Hypertension -Continue home amlodipine GERD -Continue home PPI History of TBI/seizure disorder -Previous traumatic subdural hematoma and intraparenchymal hemorrhage -Continue home zonisamide -Continue Depakote -Restart levocarnitine at discharge -Patient is also currently on phenobarb for alcohol withdrawal Overactive bladder/nocturnal enuresis -Continue home oxybutynin Tobacco abuse -Recommend cessation -Nicotine patch ordered DVT prophylaxis -Continue subcu enoxaparin daily CODE STATUS -Full code Charges/Coding Visit Charges Inpatient E&M: 05522 Subs Hosp L2
[2024-01-09] MEDS: Gabapentin 300 MG Capsule PO ×2 (14:51→22:47)
[2024-01-09] MEDS: Tolterodine Tartrate 2 MG CAP.SA PO (20:56)
[2024-01-09] MEDS: ZONISAMIDE 100 MG CAPSULE 300 MG PO (20:56)
[2024-01-09] MEDS: Ibuprofen 400 MG Tablet PO (22:47)
[2024-01-09] MEDS: traZODone 100 MG Tablet PO (22:47)
[2024-01-10] VITALS (9 sets, daily range): BP systolic 102–119; BP diastolic 71–83; PULSE 78–94; RESP 14–18; TEMP 36.6–36.8; O2SAT 96–100; BMI 27.7
[2024-01-10] MEDS: Phenobarbital 32.4 MG Tablet 64.8 MG PO ×5 (02:36→20:54)
[2024-01-10] MEDS: Gabapentin 300 MG Capsule PO ×2 (06:30→14:38)
[2024-01-10] MEDS: Ibuprofen 400 MG Tablet PO ×2 (06:30→14:17)
[2024-01-10] MEDS: Lactobacillis Acidophilus 2 CAP PO ×2 (08:42→22:20)
[2024-01-10] MEDS: levETIRAcetam 750 MG Tablet 1500 MG PO ×2 (08:42→22:22)
[2024-01-10] MEDS: amLODIPine 5 MG Tablet PO (08:42)
[2024-01-10] MEDS: Enoxaparin 40 MG/0.4 ML Syringe SC (08:42)
[2024-01-10] MEDS: Folic Acid 1 MG Tablet PO (08:43)
[2024-01-10] MEDS: Thiamine Hydrochloride 100 MG Tablet PO (08:43)
[2024-01-10] MEDS: Divalproex Sodium 250 MG Tablet 500 MG PO ×2 (08:43→22:21)
[2024-01-10] MEDS: Pantoprazole Sodium 40 MG Tablet PO (08:43)
[2024-01-10] MEDS: Nicotine Polacrilex 2 MG GUM PO ×2 (09:35→14:17)
--- NOTE | 2024-01-10 13:21 | PCM.PN.HOSP ---
Reason for Visit Reason for Visit: Alcohol detox Subjective Subjective Patient states he feels horrible today. He states he has a headache and that he cannot breathe. He seems significantly anxious. Earlier this morning I saw him walking on the hallway and he was joking with us at the nurses station. Per discussion with nursing he seems to have pretty significant intermittent anxiety. Objective Data Objective Data Vital Signs: Vital Signs Temp Pulse Resp BP Pulse Ox O2 Del Method 97.9 F 78 18 119/83 H 96 Room Air 01/10/24 08:40 01/10/24 08:40 01/10/24 08:40 01/10/24 08:40 01/10/24 09:16 01/10/24 09:16 Oxygen Delivery Method Room Air Weight: 87.9 kg Body Mass Index (BMI) 27.7 Intake & Output: Intake and Output for Last 24 Hours 01/08/24 01/09/24 01/10/24 23:59 23:59 23:59 Intake Total 2227.08 / 2227.08 1020 / 1020 600 / 600 Balance 2227.08 / 2227.08 1020 / 1020 600 / 600 Lab / Micro Data 01/09/24 08:13 01/09/24 07:18 Micro: Microbiology 01/08/24 14:55 Stool Stool Lactoferrin - Final 01/08/24 14:55 Stool Enteric Bacteriology - Final 01/08/24 14:55 Stool Clostridioides difficile (PCR) - Final Physical Exam Const alert, oriented x3, no apparent distress and well nourished; Negative for healthy appearing Constitutional Narrative: Slightly overweight, middle-aged, white male, sitting up in bed, appears older than stated age, appears comfortable, does not appear toxic General Appearance: cooperative HEENT normocephalic, head/scalp atraumatic, hearing grossly normal bilaterally and moist oral mucous membranes Resp normal respiratory effort, no retractions, no use of accessory muscles and clear to auscultation bilaterally Auscultation: Negative for rales, rhonchi or wheezes Cardio regular rate, regular rhythm, S1 normal heart sound, S2 normal heart sound, no murmurs, no rub, no gallops and no clicks GI normal to inspection, nondistended, normoactive bowel sounds, soft to palpation and non-tender Extremity no clubbing, cyanosis or edema Extremity Narrative: Pedal pulses are 2+ Skin Skin Narrative: Patient has no evidence of rash. Neuro oriented x3, moves all extremities and no focal motor deficits Neuro Narrative: Very fine tremor noted today very fine tremor noted today but only when the patient holds his hands out straight Speech: speech normal Psych Psych Narrative: Affect is slightly flat however eye contact is good and patient interacts appropriately, patient does appear anxious Mood & Affect: anxious Assessment & Plan Assessment/Plan (1) Alcohol withdrawal: QUALIFIERS: Complication of substance-induced condition: uncomplicated Qualified Code(s): F10.930 - Alcohol use, unspecified with withdrawal, uncomplicated (2) Alcohol dependence: QUALIFIERS: Substance use status: in withdrawal Complication of substance-induced condition: with perceptual disturbance Qualified Code(s): F10.232 - Alcohol dependence with withdrawal with perceptual disturbance (3) Alcoholic liver disease: (4) Chronic diarrhea: PLAN: Plan Acute alcohol withdrawal in the setting of chronic alcohol abuse -Last drink was afternoon of 01/07/2024 -Drinks about a half a bottle of scotch a day -Continue phenobarbital taper -Continue supportive medication for symptom resource management specialist withdrawal -Continue thiamine and folate -Appears to be doing well with no external signs of withdrawal however patient reports being internally anxious and tremulous\ -180 has evaluated the patient and plan is for the patient to follow-up at [facility] after discharge Subacute diarrhea -Has been ongoing for about the past month -Suspect may have chronic pancreatitis but no recent imaging -Infectious workup is negative thus far but ova and parasites are pending -Stool lactoferrin is negative -As needed Imodium available -Outpatient follow-up with gastroenterology recommended--> appointment made History of alcoholic liver disease -Patient does appear to have chronic transaminase elevation -Will refer to GI after discharge--> appointment made -Recommend alcohol cessation Hypertension -Continue home amlodipine GERD -Continue home PPI 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
[2024-01-10] MEDS: Tolterodine Tartrate 2 MG CAP.SA PO (22:21)
[2024-01-10] MEDS: ZONISAMIDE 100 MG CAPSULE 300 MG PO (22:22)
[2024-01-10] MEDS: Albuterol 2.5 MG/3 ML VIAL.NEB. INHALATION (23:22)
[2024-01-11] MEDS: Phenobarbital 32.4 MG Tablet 64.8 MG PO ×2 (02:30→08:52)
[2024-01-11 02:32] VITALS: BP 114/81; PULSE 92; RESP 15; TEMP 36.6; O2SAT 98
[2024-01-11] MEDS: Nicotine Polacrilex 2 MG GUM PO (02:34)
[2024-01-11] MEDS: traZODone 100 MG Tablet PO (02:37)
[2024-01-11 03:00] VITALS: RESP 15
[2024-01-11 03:41] VITALS: BMI 26.9
[2024-01-11 07:30] VITALS: O2SAT 98
[2024-01-11 08:50] VITALS: BP 116/80; PULSE 88; RESP 18; TEMP 36.8; O2SAT 97
[2024-01-11] MEDS: Folic Acid 1 MG Tablet PO (08:52)
[2024-01-11] MEDS: Pantoprazole Sodium 40 MG Tablet PO (08:52)
[2024-01-11] MEDS: levETIRAcetam 750 MG Tablet 1500 MG PO (08:52)
[2024-01-11] MEDS: Lactobacillis Acidophilus 2 CAP PO (08:52)
[2024-01-11] MEDS: Divalproex Sodium 250 MG Tablet 500 MG PO (08:52)
[2024-01-11] MEDS: amLODIPine 5 MG Tablet PO (08:52)
[2024-01-11] MEDS: Thiamine Hydrochloride 100 MG Tablet PO (08:52)
[2024-01-11] MEDS: Enoxaparin 40 MG/0.4 ML Syringe SC (08:52)
--- NOTE | 2024-01-11 11:24 | DS.PCM_ITS ---
Providers Date of Admission: 01/08/24 Date of Discharge: 01/11/24 Primary Care Physician: Dr. Nikc Blackwell MD Reason For Visit: ALCOHOL WITHDRAWL IN THE SETTING OF CHRONIC Diagnosis Discharge Diagnosis (1) Alcohol withdrawal: Status: Acute Code(s): F10.939 - Alcohol use, unspecified with withdrawal, unspecified Qualifiers: Complication of substance-induced condition: uncomplicated Qualified Code(s): F10.930 - Alcohol use, unspecified with withdrawal, uncomplicated (2) Alcohol dependence: Status: Acute Code(s): F10.20 - Alcohol dependence, uncomplicated Qualifiers: Substance use status: in withdrawal Complication of substance-induced condition: with perceptual disturbance Qualified Code(s): F10.232 - Alcohol dependence with withdrawal with perceptual disturbance (3) Alcoholic liver disease: Status: Acute Code(s): K70.9 - Alcoholic liver disease, unspecified (4) Chronic diarrhea: Status: Chronic Code(s): K52.9 - Noninfective gastroenteritis and colitis, unspecified Medications at Discharge Home Medications amlodipine 5 mg tablet See Rx Instructions .Route .COMPLEX #90 tabs 09/24/23 omeprazole 40 mg capsule,delayed release 40 mg PO DAILY #90 caps 09/24/23 cenobamate 200 mg tablet (Xcopri) 200 mg PO DAILY #30 tabs 10/15/23 divalproex 500 mg tablet,delayed release 500 mg PO BID #60 tabs 10/15/23 folic acid 1 mg tablet 1 mg PO DAILY@0800 30 days #30 tabs 10/15/23 levetiracetam 750 mg tablet 1,500 mg (2 x 750 mg) PO BID #120 tabs 10/15/23 levocarnitine 330 mg tablet 330 mg PO TID #90 tabs 10/15/23 oxybutynin chloride 10 mg tablet,extended release 24 hr 10 mg PO QHS #30 tabs 10/15/23 zonisamide 100 mg capsule 300 mg (3 x 100 mg) PO QHS #90 caps 10/15/23 loperamide 2 mg capsule 2 mg PO Q4H PRN PRN Loose Stools #0 caps 01/11/24 Hospital Course Operations None Procedures None Summary of Care Provided Minutes Spent on Discharge: 38 Hospital Course: Mr. Poon is a 53-year-old white male who presented to the emergency department at [facility] on 01/08/2024 as a ED to ED transfer from [facility] requesting detox from alcohol. He has a known history of alcohol abuse and was recently discharged here in June for the same. He does typically have withdrawal symptoms in the morning which include anxiety, shakiness and some visual hallucinations however they resolved with drinking. He is currently drinking about half a large bottle of scotch daily. His last drink was on the afternoon of 01/07/2024. He does have a history of seizures due to traumatic brain injury previously but has not had any seizures related to his withdrawal. Vital signs on presentation showed a temperature of 97.1, heart rate 103, respiratory was 19, blood pressure was 191/109 with a repeat at 160/98, pulse ox was 97% on room air. Outside hospital labs were reviewed and his CBC was overtly unremarkable however his chemistry panel showed mild hyponatremia with a sodium of 134 and hypomagnesemia with a magnesium level of 1.6. His potassium was normal. EKG was sinus tachycardia chest x-ray was unremarkable for any acute findings. He was started on phenobarbital taper at the outside hospital and admitted to the hospital and placed on a phenobarbital taper as well as supportive medication for withdrawal symptoms and 180 was consulted. He had an uneventful hospitalization with no significant complications related to his withdrawal. Electrolytes were replaced and his sodium normalized. His diarrhea improved however still was persistent intermittently. He has not had any outpatient workup for this. Inpatient infectious workup was unremarkable. Lactoferrin was normal. I have used as needed Imodium and have instructed him to use this as an outpatient and we have made an outpatient GI follow-up as he likely needs a colonoscopy for further assessment into this. He also has chronic liver disease related to his alcoholism and would benefit from outpatient GI follow-up as well with regards to this. He does seem to have significant anxiety and referral to psychiatry was made to assist with this as this may be triggers for his alcohol use. By 01/11/2024 the patient is stabilized and was feeling ready to be discharged home. He was discharged home with no medication changes in stable condition on the same date. He was seen by 180 during his hospitalization and declined their services or any resources indicating he would go to caodaism. Discharge diagnoses: Acute alcohol withdrawal Chronic alcohol abuse History of alcoholic liver disease Thrombocytopenia Subacute diarrhea Hypertension GERD History of TBI Seizure disorder Overactive bladder/nocturnal enuresis Tobacco abuse Physical Exam Const alert, oriented x3, no apparent distress, no limitations and well nourished; Negative for healthy appearing Constitutional Narrative: Slightly overweight, middle-aged, white male, sitting up in bed, appears older than stated age, appears comfortable, does not appear toxic General Appearance: cooperative, comfortable, well kempt and well developed Orientation / Consciousness: awake, oriented to person, oriented to place and oriented to time Exam Limitations: no limitations Nutritional Appearance: overweight HEENT normocephalic, head/scalp atraumatic, hearing grossly normal bilaterally and moist oral mucous membranes HEENT Narrative: Dentition is fair, Mallampati is 2, no thrush Eyes PERRL, EOMs intact bilaterally and conjunctivae normal Eyes Narrative: No scleral icterus Neck no lymphadenopathy and supple Neck Narrative: Trachea midline, no thyroid enlargement Resp normal respiratory effort, no retractions, no use of accessory muscles and clear to auscultation bilaterally Auscultation: Negative for rales, rhonchi or wheezes Cardio regular rate, regular rhythm, S1 normal heart sound, S2 normal heart sound, no murmurs, no rub, no gallops and no clicks GI normal to inspection, nondistended, normoactive bowel sounds, soft to palpation and non-tender Extremity no clubbing, cyanosis or edema Extremity Narrative: Pedal pulses are 2+ Skin no rashes or lesions noted, no wounds, skin turgor normal and no jaundice Neuro oriented x3, CN's II-XII intact bilaterally, moves all extremities and no focal motor deficits Neuro Narrative: No tremor, no gait disturbance Speech: speech normal Motor Exam: strength 5/5 throughout Psych affect normal Psych Narrative: Affect is stabilized, mood seems to be improved still slightly anxious Weight / BMI Weight Weight: 85.5 kg Body Mass Index (BMI) 26.9 ABG / Lab / Microbiology Data 01/09/24 08:13 01/09/24 07:18 Microbiology: Microbiology 01/08/24 14:55 Stool Stool Lactoferrin - Final 01/08/24 14:55 Stool Enteric Bacteriology - Final 01/08/24 14:55 Stool Clostridioides difficile (PCR) - Final D/C Instructions Discharge Diet: Low fat / Low cholesterol Discharge Activity: Return to Normal Activity Return to work on: 01/14/24 Meaningful Use Info Meaningful Use Meaningful Use Diagnoses (Choose all that apply): None applicable Ischemic Stroke Statin Dosing Therapy Reference: STATIN DOSE THERAPY REFERENCE: * Patients > 75 years receive moderate or high dose statin therapy. * Patients 75 years or YOUNGER should receive HIGH intensity statin dose unless contraindicated. You will be required to document reason for non-treatment if statin daily dose does not meet guidelines. HIGH DOSE STATIN THERAPY DAILY Atorvastatin > than or = to 40 mg Rosuvastatin > than or = to 20 mg Amlodipine + Atorvastatin > than or = to 2.5/40 mg Ezetimibe + Simvastatin 10/80 mg Simvastatin 80mg Discharge Plan Admission Admit Date/Time: 01/08/24 05:29 Primary Reason for Your Visit: Acute alcohol withdrawal Attending Provider: Marli Jacinto Primary Care Provider: Nick Blackwell Consulting Providers: Davy Douglass Instructions Forms: Work Excuse Discharge Orders/Prescriptions Prescriptions: New loperamide 2 mg Capsule 2 mg PO Q4H PRN PRN (Reason: Loose Stools) Qty: 0 0RF Continued folic acid 1 mg tablet 1 mg PO DAILY@0800 30 Days Qty: 30 6RF Xcopri 200 mg tablet 200 mg PO DAILY Qty: 30 4RF divalproex 500 mg tablet,delayed release (DR/EC) 500 mg PO BID Qty: 60 5RF levetiracetam 750 mg tablet 1,500 mg PO BID Qty: 120 5RF levocarnitine 330 mg tablet 330 mg PO TID Qty: 90 5RF Rx Instructions: must administer with a meal/food zonisamide 100 mg capsule 300 mg PO QHS Qty: 90 5RF oxybutynin chloride 10 mg tablet extended release 24hr 10 mg PO QHS Qty: 30 4RF amlodipine 5 mg tablet See Rx Instructions .ROUTE .COMPLEX Qty: 90 0RF Dose Instruction: TAKE 1 TABLET BY MOUTH ONCE DAILY Rx Instructions: TAKE 1 TABLET BY MOUTH ONCE DAILY omeprazole 40 mg capsule,delayed release(DR/EC) 40 mg PO DAILY Qty: 90 0RF Rx Instructions: Take 30 minutes before breakfast Referrals / Follow Up: Nick Blackwell MD [Primary Care Provider] - Within 2 Weeks Pablo Mills DO [Med Staff - Active Staff] - 03/03/24 9:00 am () Angel Joe DO [Med Staff - Production Superintendent [employer]] - Within 1 Month (for your anxiety) Disposition Disposition (needs filled in before D/C Order can be placed): Home, Self Care Charges/Coding Visit Charges Inpatient E&M: 65887 Disch Hosp >30min
[2024-01-11 13:00] VITALS: BP 112/79; PULSE 82; RESP 16; TEMP 36.4; O2SAT 98
== END 2024-01-11 13:42 | disposition home or self-care (01) | DRG 775 ==
LOC: ED 03:56 → MS3 05:39
PROVIDERS: Admitting Provider Internal Medicine; Emergency Provider Emergency Medicine; PCP Internal Medicine; Visit Provider Internal Medicine
DX: F10.232 Alcohol dependence with withdrawal with perceptual disturbance (principal); E66.3 Overweight; K70.9 Alcoholic liver disease, unspecified; G40.909 Epilepsy, unspecified, not intractable, without status epilepticus; J44.9 Chronic obstructive pulmonary disease, unspecified; I10 Essential (primary) hypertension; F32.A Depression, unspecified; K21.9 Gastro-esophageal reflux disease without esophagitis; M19.90 Unspecified osteoarthritis, unspecified site; F41.9 Anxiety disorder, unspecified; E83.42 Hypomagnesemia; F17.210 Nicotine dependence, cigarettes, uncomplicated; N32.81 Overactive bladder; N39.44 Nocturnal enuresis; Z79.899 Other long term (current) drug therapy; Z68.29 Body mass index [BMI] 29.0-29.9, adult
CPT/HCPCS: 36415; 80053; 83630; 83735; 84100; 84443; 85025; 87177; 87209; 87493; 87506; 94640; 94668; 99284; J7120; A4216

== ENCOUNTER → 2024-02-02 | Outpatient (CLI) | payer MEDICAID, SELFPAY ==
[2024-02-02 08:47] LABS: AST(SGOT) 17 U/L (15-37); Alanine Aminotransfer ALT/SGPT 27 U/L (16-61); Albumin, Serum 3.5 g/dL (3.2-5.0); Alkaline Phosphatase 88 U/L (45-117); Anion Gap 7 (5-15); BUN 8 mg/dL (7-18); BUN/Creat Ratio 10.5 RATIO (10-20); Chloride 107 mmol/L (98-107); Creatinine, Serum 0.76 mg/dL (0.70-1.30); EST Glomerular Filtration Rate 114 mL/min (>60); Est Glom Filt Rate - Afr Amer 138 mL/min (>60); Globulin 3.6 g/dL (2.2-4.2); Glucose 110 mg/dL (74-106); Potassium 4.3 mmol/L (3.5-5.1); Protein, Total 7.1 g/dL (6.4-8.2); Sodium Level 138 mmol/L (136-145)
[2024-02-04 12:08] LABS: PSA, Free % 14.5 % (.)
== END | disposition home or self-care (01) ==
PROVIDERS: Psychiatry & Neurology Neurology; PCP Internal Medicine; Referring Provider Internal Medicine; Visit Provider Internal Medicine
DX: R74.8 Abnormal levels of other serum enzymes (principal); G40.909 Epilepsy, unspecified, not intractable, without status epilepticus; N39.44 Nocturnal enuresis
CPT/HCPCS: 36415; 80053; 82140; 84153; 84154

== ENCOUNTER 2024-06-14 19:10 | Inpatient (IN) | payer MEDICAID, SELFPAY ==
[2024-06-14 19:11] VITALS: BP 135/95; PULSE 101; RESP 18; TEMP 36.4; O2SAT 98
--- NOTE | 2024-06-14 19:20 | EDS_ITS ---
HPI History of Present Illness Chief Complaint: ETOH Intox [facility] Medical History Alcohol dependence Epilepsy History of traumatic brain injury Alcoholic liver disease Elevated liver enzymes Chronic diarrhea Blood glucose elevated Preventative health care Nausea RLQ abdominal pain Health care maintenance Colon cancer screening Seizure Chronic headaches History of alcohol abuse Seasonal allergies Arthritis Back pain GI problem Hearing problem History of pneumonia Vision problem History of skull fracture Home Medications ?Medication ?Instructions ?Recorded ?Last Taken ?Type omeprazole 40 mg capsule,delayed 40 mg PO DAILY #90 caps 09/24/23 Unknown Rx release loperamide 2 mg capsule 2 mg PO Q4H PRN PRN Loose Stools 01/11/24 Unknown Rx #0 caps cenobamate 200 mg tablet (Xcopri) 200 mg PO DAILY #30 tabs 02/04/24 Unknown Rx divalproex 500 mg tablet,delayed 500 mg PO BID #60 tabs 02/04/24 Unknown Rx release folic acid 1 mg tablet 1 mg PO DAILY@0800 30 days #30 tabs 02/04/24 Unknown Rx levetiracetam 750 mg tablet 1,500 mg (2 x 750 mg) PO BID #120 02/04/24 Unknown Rx tabs levocarnitine 330 mg tablet 330 mg PO TID #90 tabs 02/04/24 Unknown Rx amlodipine 5 mg tablet See Rx Instructions .Route 03/26/24 Unknown Rx .COMPLEX #90 tabs escitalopram oxalate 10 mg tablet 10 mg PO DAILY #90 tabs 03/26/24 Unknown Rx (Lexapro) albuterol sulfate 90 mcg/actuation See Rx Instructions .Route 03/31/24 Unknown Rx aerosol inhaler .COMPLEX #8.5 grams Allergy/AdvReac Type Severity Reaction Status Date / Time codeine Allergy Intermediate NIGHTMARES Verified 06/14/24 19:11 hydrocodone bitartrate (From AdvReac Intermediate Other Verified 06/14/24 19:11 Vicodin) Family History Mother Suicide Depression Arthritis Anxiety Father Suicide Alcoholism Grandfather Alcoholism Surgical History History of cholecystectomy History of facial surgery H/O shoulder surgery Social History household members: friend(s) housing: apartment Smoking Status: Current every day smoker tobacco type: cigarettes alcohol intake: current alcohol intake frequency: a few times a week substance use type: does not use EXAM Physical Exam Const Vital Signs: 06/14/24 19:11 Temperature 97.6 F L Temperature Source Oral Pulse Rate 101 H Respiratory Rate 18 Blood Pressure 135/95 H Blood Pressure Mean 108 Pulse Ox 98 Oxygen Delivery Method Room Air [facility] Narrative Medical decision making narrative: HISTORY OF PRESENT ILLNESS: 54-year-old male presents requesting detox of alcohol. Notes he drank one half bottle of liquor and 2 beers today. Notes his last p.o. just before squad arrived. Notes he was here roughly 5 months ago for similar. States he drinks on most days approximate 4 to 5 days a week. Notes he typically drinks beer. Notes he roughly drinks approximately 2 beers per day. Over the last 1 to 2 weeks he is drink more more consistent with his level of drinking from today. He notes nausea some shakiness and cramping in his abdomen. REVIEW OF SYSTEMS: Pertinent positives: Nausea, cramping Pertinent negatives: Fever, chest pain, focal weakness PHYSICAL EXAM: Nursing triage notes reviewed, Vital signs reviewed Constitutional: please see mdm HENT: MMM Eyes: Pupils equal round and reactive to light, Extraocular muscles intact Neck: No stridor, no JVD, full neck ROM Lungs: Clear to auscultation, No wheezing or rales. No increased work of breathing, no conversational dyspnea, no accessory muscle use, no nasal flaring. No respiratory distress noted Heart: Regular rate and rhythm, No murmurs, No rubs and No gallops, 2+ distal pulses (radial, femoral, posterior tibial) in all extremities Abdomen: Soft, there is no tenderness, rigidity, rebound or guarding, no obvious peritoneal signs, no palpable pulsatile abdominal masses, no auscultated abdominal bruit : No CVAT Extremities: No edema Neuro: No focal neurological deficits, cranial nerves II through XII intact, 5/5 strength in all extremities. Intact sensation to light touch in all extremities, 2+ reflexes bilateral patella tendons. Normal gait. No ataxia. Skin: No rash or lesions noted MEDICAL DECISION MAKING: Chief Complaint: Alcohol detox External records reviewed: Reviewed prior inpatient records for alcohol withdrawal in the setting of chronic alcohol abuse Factors affecting care: COPD, elevated liver enzymes, epilepsy, hypertension, seizure disorder, Social determinants of health: Alcohol abuse, tobacco abuse History obtained from others: none Consults: Hospitalist (Dr. Meier) MDM Narrative: Patient was hemodynamically stable, afebrile and nontoxic-appearing. Exam without focal deficits. Abdomen soft and nontender with no peritoneal signs. No stigmata of liver failure. Patient was initially treated with IV Ativan and phenobarbital for stabilization. ALL IMAGES (IF OBTAINED) HAVE BEEN PERSONALLY REVIEWED AND INTERPRETED BY MYSELF. EKG with normal sinus rhythm, normal axis, no intervals, no STEMI CBC without leukocytosis, no anemia or thrombocytopenia BMP with mild hyponatremia likely secondary to beer potomania, no other significant electrolyte abnormalities, no sign of metabolic acidosis or endorgan hypoperfusion with normal bicarb and anion gap, no SANDRA LFTs elevated, AST ALT elevated similar to baseline, alkaline phosphatase also elevated likely secondary to alcohol induced liver damage Lipase is wnl indicating no pancreatic inflammation. Serum alcohol elevated consistent with acute intoxication The synthesis of the patient's history, physical exam, labs images suggest alcohol intoxication and problematic alcohol abuse. Patient is appropriate for admission for detoxification. Discussed with hospitalist who agreed admit the patient to [facility]. The patient and/or family, caregivers express understanding. The patient and/or family, caregivers agrees with the plan. Shared decision making: I will have a discussion with the patient and or visitors regarding risk/benefits of further testing or admission. They will be made aware of of the risk/benefits inherent in this decision they will be given the opportunity to voice understanding. Total critical care time today provided was at least 0 minutes. This excludes separately billable procedures. Critical care time (if documented) is secondary to the patient having high probability of clinically significant/life threatening deterioration in the patient's condition which required my urgent intervention. Impression: 1. History of alcohol abuse 2. Elevated liver enzymes 3. Hyponatremia Dispo: Admit This note was generated with [employer] dictation software. It may contain incorrect words, spelling, and punctuation that were not noted in review of the chart karla or to signing. Lab Data Labs: Laboratory Results - last 24 hr 06/14/24 06/14/24 19:48 20:25 WBC 7.5 RBC 4.60 Hgb 15.9 Hct 45.2 MCV 98.3 H MCH 34.6 H MCHC 35.2 RDW Std Deviation 46.1 H RDW Coeff of Wilma 12.9 Plt Count 236 MPV 9.0 Immature Gran % (Auto) 0.300 Neut % (Auto) 53.9 Lymph % (Auto) 31.6 [place] % (Auto) 6.8 Eos % (Auto) 6.5 H Baso % (Auto) 0.9 Absolute Neuts (auto) 4.1 Absolute Lymphs (auto) 2.38 Nucleated RBC % 0 Sodium 133 L Potassium 4.1 Chloride 96 L Carbon Dioxide 24.0 Anion Gap 13 BUN 5 L Creatinine 0.65 L Est GFR (MDRD) Af Amer 165 Est GFR (MDRD) Non-Af 137 BUN/Creatinine Ratio 7.7 L Glucose 96 Calcium 8.6 Total Bilirubin 0.60 AST 146 H ALT 131 H Alkaline Phosphatase 407 H Total Protein 7.0 Albumin 3.5 Globulin 3.5 Albumin/Globulin Ratio 1.0 Lipase 18 Ur Drug Screen Comment Ethyl Alcohol 189.0 Discharge Plan Triage Chief Complaint: ETOH Intox ED Provider: Karl Duenas Dx/Rx/DC Orders Prescriptions: No Action omeprazole 40 mg capsule,delayed release(DR/EC) 40 mg PO DAILY Qty: 90 0RF Rx Instructions: Take 30 minutes before breakfast levocarnitine 330 mg tablet 330 mg PO TID Qty: 90 5RF Rx Instructions: must administer with a meal/food folic acid 1 mg tablet 1 mg PO DAILY@0800 30 Days Qty: 30 6RF divalproex 500 mg tablet,delayed release (DR/EC) 500 mg PO BID Qty: 60 5RF Xcopri 200 mg tablet 200 mg PO DAILY Qty: 30 5RF levetiracetam 750 mg tablet 1,500 mg PO BID Qty: 120 5RF loperamide 2 mg Capsule 2 mg PO Q4H PRN PRN (Reason: Loose Stools) Qty: 0 0RF escitalopram oxalate [Lexapro] 10 mg tablet 10 mg PO DAILY Qty: 90 1RF amlodipine 5 mg tablet See Rx Instructions .ROUTE .COMPLEX Qty: 90 1RF Dose Instruction: TAKE 1 TABLET BY MOUTH ONCE DAILY Rx Instructions: TAKE 1 TABLET BY MOUTH ONCE DAILY albuterol sulfate 90 mcg/actuation HFA aerosol inhaler See Rx Instructions .ROUTE .COMPLEX Qty: 8.5 2RF Dose Instruction: INHALE 2 PUFFS EVERY 6 HOURS NEEDED FOR SHORTNESS OF BREATH Rx Instructions: INHALE 2 PUFFS EVERY 6 HOURS NEEDED FOR SHORTNESS OF BREATH Primary Care Provider: Nick Blackwell Referrals: Nick Blackwell MD [Primary Care Provider] - Print Language: Serbian
--- NOTE | 2024-06-14 19:31 | EKG12_ITS ---
Test Reason : ETOH INTOX Blood Pressure : / mmHG Vent. Rate : 099 BPM Atrial Rate : 099 BPM P-R Int : 136 ms QRS Dur : 082 ms QT Int : 332 ms P-R-T Axes : 064 061 070 degrees QTc Int : 426 ms Normal sinus rhythm Normal ECG Confirmed by YOUNG BONNER, EVENS ([id number]), newspaper or periodical editor ANGIE ZHAO ([id number]) on 06/16/2024 9:38:07 AM Referred By: WILFRED Confirmed By:EVENS VIDAL MD
[2024-06-14 19:56] LABS: Absolute Lymphocyte Count 2.38 X10^3/uL (0.83-4.51); Absolute Neutrophil Count 4.1 X10^3/uL (2.0-7.7); Basophil# 0.07 X10^3/uL; Basophil% 0.9 % (0-1); Eosinophil# 0.49 X10^3/uL; Eosinophils% 6.5 % (0-5); Hematocrit 45.2 % (40-54); Hemoglobin 15.9 g/dL (13.0-16.5); Lymphocyte # 2.38 X10^3/ul (0.83-4.51); Lymphocyte % 31.6 % (19-41); Mean Corp Hgb Conc 35.2 g/dL (32-36); Mean Corpuscular Hgb 34.6 pg (27.0-32.0); Mean Corpuscular Volume 98.3 fL (80-94); Monocyte# 0.51 X10^3/uL; Monocyte% 6.8 % (0-10); NRBC Flagged by Analyzer 0 % (0-5); Neutrophil # 4.05 X10^3/uL (2.7-7.7); Neutrophil % 53.9 % (47-70); Platelet Count 236 K/mm3 (150-450); RBC Distribution Width CV 12.9 % (11.6-14.6); RBC Distribution Width SD 46.1 fl (35.1-43.9); White Blood Count 7.5 K/mm3 (4.4-11.0)
[2024-06-14] MEDS: LORazepam 2 MG/ML Syringe IV (20:02)
[2024-06-14] MEDS: Phenobarbital 32.4 MG Tablet 97.2 MG PO (20:02)
[2024-06-14 20:20] LABS: AST(SGOT) 146 U/L (15-37); Alanine Aminotransfer ALT/SGPT 131 U/L (16-61); Albumin, Serum 3.5 g/dL (3.2-5.0); Alkaline Phosphatase 407 U/L (45-117); Anion Gap 13 (5-15); BUN 5 mg/dL (7-18); BUN/Creat Ratio 7.7 RATIO (10-20); Calcium,Total 8.6 mg/dL (8.5-10.1); Chloride 96 mmol/L (98-107); Creatinine, Serum 0.65 mg/dL (0.70-1.30); EST Glomerular Filtration Rate 137 mL/min (>60); Est Glom Filt Rate - Afr Amer 165 mL/min (>60); Globulin 3.5 g/dL (2.2-4.2); Glucose 96 mg/dL (74-106); Lipase 18 U/L (13-75); Potassium 4.1 mmol/L (3.5-5.1); Sodium Level 133 mmol/L (136-145)
--- NOTE | 2024-06-14 20:42 | HP.PCM.HOS_ITS ---
[facility] - General General Date of Admission: 06/14/24 Date of Service: 06/14/24 Chief Complaint: Wants Help with EtOH Detox. HPI Narrative LAURA HENSLEY, is a 54 M with a past medical history of essential hypertension, chronic EtOH abuse; with multiple shots of whiskey and ~2 beers daily, history of EtOH hepatitis; with hyperammonemia and chronically elevated LFT's on levocarnitine, history of EtOH pancreatitis; with chronic watery diarrhea followed by Dr. Bloom of gastroenterology, history of TBI; with skull fracture, seizure disorder; on cenobamate, divalproex and levetriacetam, chronic headaches; with brain fog / episodes of confusion, history of tobacco abuse; with subsequent COPD, history of facial surgery, history of cholecystectomy, history of shoulder surgery, depression with anxiety, OA; with back pain, GERD and recent admission here from January 08, 2024 to January 11, 2024 for who presents to [facility] ER complaining of once again wanting help with EtOH detoxification. Mr. Hensley reports his symptoms began approximately 1-2 weeks prior to admission when he increased his EtOH intake. Then earlier today he also experienced shakiness, nausea and cramping in his abdomen with continued watery stools 4-5 x / day that he treats with imodium which then causes constipation. He denies associated fever, chills, vomiting, chest pain, SOB, headache, hallucinations, seizure activity, focal neurologic weakness or illicit drug use but his UDS this admission was positive for cannabis. In the ER he was noted to have a MINGO of 189 mg/dL complicated by early evidence of acute EtOH withdrawal in the setting of chronic and recalcitrant EtOH abuse and he was then admitted to the general medical floor for ongoing care for a stay that is expected to extend beyond 2 midnights. [facility] Medical History (Updated 06/15/24 @ 03:[address] Davy Douglass, DO) Depression Smoker Hypertension Alcohol dependence Alcoholic liver disease Elevated liver enzymes Chronic diarrhea Epilepsy History of traumatic brain injury Blood glucose elevated Preventative health care Nausea RLQ abdominal pain Health care maintenance Colon cancer screening Seizure Chronic headaches History of alcohol abuse Seasonal allergies Arthritis Back pain GI problem Hearing problem History of pneumonia Vision problem History of skull fracture Home Medications ?Medication ?Instructions ?Recorded ?Last Taken ?Type omeprazole 40 mg capsule,delayed 40 mg PO DAILY #90 caps 09/24/23 Unknown Rx release loperamide 2 mg capsule 2 mg PO Q4H PRN PRN Loose Stools 01/11/24 Unknown Rx #0 caps cenobamate 200 mg tablet (Xcopri) 200 mg PO DAILY #30 tabs 02/04/24 Unknown Rx divalproex 500 mg tablet,delayed 500 mg PO BID #60 tabs 02/04/24 Unknown Rx release folic acid 1 mg tablet 1 mg PO DAILY@0800 30 days #30 tabs 02/04/24 Unknown Rx levetiracetam 750 mg tablet 1,500 mg (2 x 750 mg) PO BID #120 02/04/24 Unknown Rx tabs levocarnitine 330 mg tablet 330 mg PO TID #90 tabs 02/04/24 Unknown Rx amlodipine 5 mg tablet See Rx Instructions .Route 03/26/24 Unknown Rx .COMPLEX #90 tabs escitalopram oxalate 10 mg tablet 10 mg PO DAILY #90 tabs 03/26/24 Unknown Rx (Lexapro) albuterol sulfate 90 mcg/actuation See Rx Instructions .Route 03/31/24 Unknown Rx aerosol inhaler .COMPLEX #8.5 grams atorvastatin 20 mg tablet 20 mg PO DAILY cholesterol 06/14/24 Unknown History thiamine HCl (vitamin B1) 100 mg 100 mg PO DAILY 06/14/24 Unknown History tablet Allergy/AdvReac Type Severity Reaction Status Date / Time codeine Allergy Intermediate NIGHTMARES Verified 06/14/24 19:11 hydrocodone bitartrate (From AdvReac Intermediate Other Verified 06/14/24 19:11 Vicodin) Family History Mother Suicide Depression Arthritis Anxiety Father Suicide Alcoholism Grandfather Alcoholism Surgical History History of cholecystectomy History of facial surgery H/O shoulder surgery Social History household members: friend(s) housing: apartment Smoking Status: Current every day smoker tobacco type: cigarettes alcohol intake: current alcohol intake frequency: a few times a week substance use type: does not use ROS ROS Narrative Review of Systems: Constitutional: Patient denies fever or chills. Eyes: Patient denies changes in vision or discharge from eyes. ENT: Patient denies runny nose, sore throat and ear pain. Resp: Patient denies SOB or cough. CV: Patient denies chest pain, palpitations or heart racing. GI: Patient admits to nausea but he denies vomiting or abdominal pain. : Patient denies dysuria or hematuria. MSK: Patient denies arthralgias or myalgias. Skin: Patient admits to Left knee abrasion after recent fall but he denies abscess or jaundice. Psych: Patient admits to chronic depression with an alcoholic grandfather who of cirrhosis and his father who committed suicide. He denies SI or HI. Neuro: Patient admits to tremor but he denies headache or focal neurologic weakness. Allergy: Patient denies lip swelling, tongue swelling or urticaria. Hematology: Patient denies easy bleeding or easy bruisability. Endocrinology: Patient denies polyuria, polydipsia or polyphagia. 14 point ROS otherwise negative except for positives noted above. Vital Signs Vital Signs Vital Signs: 06/14/24 19:11 Temperature 97.6 F L Temperature Source Oral Pulse Rate 101 H Respiratory Rate 18 Blood Pressure 135/95 H Blood Pressure Mean 108 Pulse Ox 98 Oxygen Delivery Method Room Air Physical Exam Const alert, oriented x3, no apparent distress and average body habitus General Appearance: cooperative HEENT normocephalic, head/scalp atraumatic, hearing grossly normal bilaterally and moist oral mucous membranes Eyes PERRL and EOMs intact bilaterally Neck no lymphadenopathy and supple Resp normal respiratory effort, no retractions, no use of accessory muscles and clear to auscultation bilaterally Cardio regular rate and regular rhythm GI normal to inspection, nondistended, normoactive bowel sounds, soft to palpation, non-tender and non-distended Extremity normal to inspection, full ROM and no clubbing, cyanosis or edema Skin Skin Narrative: Patient has mild abrasion over Left knee but on no evidence of jaundice or abscess. Neuro oriented x3, CN's II-XII intact bilaterally, moves all extremities and no focal motor deficits Sensorium / Orientation: awake, alert, oriented to person, oriented to place and oriented to time Speech: speech normal Psych Mood & Affect: depressed Results Medical Records Data Attestation: I reviewed the patient's medical records Lab / Micro Data Attestation: I reviewed the patient's lab results. 06/14/24 19:48 06/14/24 19:48 Labs: Laboratory Results - last 24 hr 06/14/24 19:48: WBC 7.5, RBC 4.60, Hgb 15.9, Hct 45.2, MCV 98.3 H, MCH 34.6 H, MCHC 35.2, RDW Std Deviation 46.1 H, RDW Coeff of Wilma 12.9, Plt Count 236, MPV 9.0, Immature Gran % (Auto) 0.300, Neut % (Auto) 53.9, Lymph % (Auto) 31.6, [place] % (Auto) 6.8, Eos % (Auto) 6.5 H, Baso % (Auto) 0.9, Absolute Neuts (auto) 4.1, Absolute Lymphs (auto) 2.38, Nucleated RBC % 0, Sodium 133 L, Potassium 4.1, C hloride 96 L, Carbon Dioxide 24.0, Anion Gap 13, BUN 5 L, Creatinine 0.65 L, Est GFR (MDRD) Af Amer 165, Est GFR (MDRD) Non-Af 137, BUN/Creatinine Ratio 7.7 L, Glucose 96, Calcium 8.6, Total Bilirubin 0.60, AST 146 H, ALT 131 H, Alkaline Phosphatase 407 H, Total Protein 7.0, Albumin 3.5, Globulin 3.5, Albumin/Globulin Ratio 1.0, Lipase 18, Ethyl Alcohol 189.0 06/14/24 20:25: Ur Drug Screen Comment Assessment & Plan Assessment/Plan (1) Alcohol withdrawal: QUALIFIERS: Complication of substance-induced condition: u ncomplicated Qualified Code(s): F10.930 - Alcohol use, unspecified with withdrawal, uncomplicated (2) Alcoholic hepatitis: QUALIFIERS: Ascites presence: without ascites Qualified Code(s): K70.10 - Alcoholic hepatitis without ascites (3) Chronic alcohol abuse: (4) History of pancreatitis: (5) Diarrhea: QUALIFIERS: Diarrhea type: unspecified type Qualified Code(s): R 19.7 - Diarrhea, unspecified (6) Hyperammonemia: (7) Seizure disorder: (8) Anxiety and depression: (9) Chronic headaches: QUALIFIERS: Headache type: unspecified Intractability: not intractable Qualified Code(s): R51.9 - Headache, unspecified; G89.29 - Other chronic pain (10) Cannabis abuse: (11) Tobacco abuse: PLAN: Plan 1. Early Acute EtOH withdrawal in the setting of chronic and recalcitrant EtOH abuse ; with multiple shots of whiskey and ~2 beers daily - Admit to general medical floor under EtOH withdrawal protocol primarily consisting of phenobarbital taper. EtOH Cessation was once again strongly encouraged. 2. History of EtOH hepatitis; with hyperammonemia and chronically elevated LFT's on levocarnitine complicating #1 - Noted. Check ammonia level. Continue levocarnitine as previous. 3. History of EtOH pancreatitis; with chronic watery diarrhea followed by Dr. Bloom of gastroenterology compounding #1 & #2 - Stable. Resume prn imodium. 4. History of TBI; with skull fracture and seizure disorder; on cenobamate, divalproex and levetriacetam adding to the medical complexity of #1 - #3 - Maintain current regimen and check valproic acid level. Patient did not bring his cenobamate to the hospital with this agent noted to have a high potential for both abuse and possible diversion. He was instructed to have his roommate bring it in if he wants to have it because our pharmacy cannot obtain this agent. Unfortunately, he went on to state his roommate cannot bring his medicine in - but he did not state why. Phenobarbital has been added for #1 which should also decrease his risk of breakthrough seizure activity. 5. Depression with anxiety; on escitalopram that is suspected to be triggering relapses into alcoholism precipitating #1 - #3 and also likely played a significant role in events directly preceding #4 - Continue home medication plus consider psychiatric referral. 6. UDS positive for Cannabis abuse adding to the medical pathology of #1 - #5 - Cannabis cessation will be strongly encouraged. 7. History of tobacco abuse; with subsequent COPD - Stable with no evidence of acute flare. Continue prn nebulizers. Tobacco cessation was strongly encouraged with Nicotine patch offered to control cravings. 8. Recent admission here from January 08, 2024 to January 11, 2024 for alcohol detoxification - Noted with emerging pattern of serial readmission. 9. Essential hypertension - Resume home medications as before plus give prn IV Hydralazine for systolic blood pressure > 160 mmHg. 10. Chronic headaches; with brain fog / episodes of confusion exacerbated by ongoing EtOH abuse - Stable with no complaints of headache at this time. Give ibuprofen prn. 11. History of facial surgery - Noted. 12. History of cholecystectomy - Noted. 13. History of shoulder surgery - Noted for the sake of completeness. 14. OA; with back pain - Stable. Give ibuprofen prn. 15. GERD - Resume PPI as before. 16. DVT prophylaxis - Lovenox 40 mg sq daily. Total time: Approximately 75 minutes. Charges/Coding Visit Charges Inpatient E&M: 77832 Init Hosp L3
[2024-06-14 20:53] VITALS: BMI 28.6
[2024-06-14 20:54] VITALS: BP 95/84; PULSE 105; RESP 16; TEMP 36; O2SAT 98
[2024-06-14 21:24] LABS: Amphetamine Urine VISTA NEGATIVE (<1000 ng/mL); Barbiturate Urine VISTA NEGATIVE (< 200 ng/mL); Benzodiazepine Urine VISTA NEGATIVE (< 200 ng/mL); Cocaine Urine VISTA NEGATIVE (< 300 ng/mL); Ecstacy Urine VISTA NEGATIVE (< 500 ng/mL); Methadone Urine VISTA NEGATIVE (< 300 ng/mL); PCP Urine VISTA NEGATIVE (< 25 ng/mL); THC Urine VISTA POSITIVE (< 50 ng/mL); Vista UDS pH Range 5
[2024-06-14 21:31] VITALS: RESP 15; O2SAT 95
[2024-06-14 21:33] VITALS: BMI 29.5
[2024-06-14 22:24] LABS: Valproic Acid (Depakene) Level 32 ug/mL (50-100)
[2024-06-14] MEDS: levETIRAcetam 750 MG Tablet 1500 MG PO (22:27)
[2024-06-14] MEDS: 0.9% Normal Saline (1000mL) 1,000 ML 70 ML IV (22:27)
[2024-06-14] MEDS: Divalproex Sodium 250 MG Tablet 500 MG PO (22:27)
[2024-06-14 22:32] VITALS: BP 131/94; PULSE 106; RESP 15; TEMP 36.9; O2SAT 97
[2024-06-15] VITALS (11 sets, daily range): BP systolic 126–145; BP diastolic 74–95; PULSE 91–109; RESP 15–28; TEMP 36.7–37.1; O2SAT 91–98; BMI 29.6
[2024-06-15] MEDS: Phenobarbital 32.4 MG Tablet PO ×6 (00:22→20:22)
[2024-06-15] MEDS: Albuterol 2.5 MG/3 ML VIAL.NEB. INHALATION ×3 (04:01→15:37)
[2024-06-15] MEDS: Ibuprofen 400 MG Tablet PO (04:31)
[2024-06-15] MEDS: Gabapentin 300 MG Capsule PO ×2 (04:31→17:30)
[2024-06-15 04:53] LABS: AST(SGOT) 107 U/L (15-37); Alanine Aminotransfer ALT/SGPT 108 U/L (16-61); Albumin, Serum 3.3 g/dL (3.2-5.0); Alkaline Phosphatase 373 U/L (45-117); Anion Gap 8 (5-15); BUN 6 mg/dL (7-18); BUN/Creat Ratio 7.8 RATIO (10-20); Chloride 99 mmol/L (98-107); Creatinine, Serum 0.77 mg/dL (0.70-1.30); EST Glomerular Filtration Rate 113 mL/min (>60); Est Glom Filt Rate - Afr Amer 136 mL/min (>60); Estimated Creatinine Clearance 123.51 ml/min; Globulin 3.3 g/dL (2.2-4.2); Glucose 130 mg/dL (74-106); Magnesium 1.8 mg/dL (1.6-2.6); Phosphorus 2.7 mg/dL (2.5-4.9); Protein, Total 6.6 g/dL (6.4-8.2); Sodium Level 133 mmol/L (136-145)
[2024-06-15] MEDS: levOCARNitine 330 MG TABLET PO ×3 (05:58→23:12)
--- NOTE | 2024-06-15 06:59 | PN.HOSP_ITS ---
Reason for Visit Reason for Visit: Alcohol detox Subjective Subjective No nausea and able to eat well. Complains of pretty significant tremor right now though. Has chronic diarrhea and states he has not yet had his colonoscopy. Objective Data Objective Data Vital Signs: Vital Signs Temp Pulse Resp BP Pulse Ox O2 Del Method 98.0 F 105 H 15 142/95 H 97 Room Air 06/15/24 04:15 06/15/24 04:15 06/15/24 04:15 06/15/24 04:15 06/15/24 04:15 06/15/24 04:15 Oxygen Delivery Method Room Air Weight: 90.718 kg Body Mass Index (BMI) 29.6 Intake & Output: Intake and Output for Last 24 Hours 06/13/24 06/14/24 06/15/24 23:59 23:59 23:59 Intake Total 800 / 800 Balance 800 / 800 Lab / Micro Data 06/14/24 19:48 06/15/24 04:09 Labs: Laboratory Results - last 24 hr 06/14/24 19:48: WBC 7.5, RBC 4.60, Hgb 15.9, Hct 45.2, MCV 98.3 H, MCH 34.6 H, MCHC 35.2, RDW Std Deviation 46.1 H, RDW Coeff of Wilma 12.9, Plt Count 236, MPV 9.0, Immature Gran % (Auto) 0.300, Neut % (Auto) 53.9, Lymph % (Auto) 31.6, [place] % (Auto) 6.8, Eos % (Auto) 6.5 H, Baso % (Auto) 0.9, Absolute Neuts (auto) 4.1, Absolute Lymphs (auto) 2.38, Nucleated RBC % 0, Sodium 133 L, Potassium 4.1, C hloride 96 L, Carbon Dioxide 24.0, Anion Gap 13, BUN 5 L, Creatinine 0.65 L, Est GFR (MDRD) Af Amer 165, Est GFR (MDRD) Non-Af 137, BUN/Creatinine Ratio 7.7 L, Glucose 96, Calcium 8.6, Total Bilirubin 0.60, AST 146 H, ALT 131 H, Alkaline Phosphatase 407 H, Total Protein 7.0, Albumin 3.5, Globulin 3.5, Albumin/Globulin Ratio 1.0, Lipase 18, Ethyl Alcohol 189.0 06/14/24 20:25: Urine Opiates Screen NEGATIVE, Urine Methadone Screen NEGATIVE, Ur Barbiturates Screen NEGATIVE, Ur Phencyclidine Scrn NEGATIVE, Ur Amphetamines Screen NEGATIVE, MDMA (Ecstasy) Screen NEGATIVE, U Benzodiazepines Scrn NEGATIVE, Urine Cocaine Screen NEGATIVE, U Cannabinoids Screen POSITIVE H, Ur Drug Screen Comment 06/14/24 21:45: Valproic Acid 32 L 06/15/24 04:09: Sodium 133 L, Potassium 4.0, Chloride 99, Carbon Dioxide 26.0, Anion Gap 8, BUN 6 L, Creatinine 0.77, Estim Creat Clear Calc 123.51, Est GFR (MDRD) Af Amer 136, Est GFR (MDRD) Non-Af 113, BUN/Creatinine Ratio 7.8 L, G lucose 130 H, Calcium 8.0 L, Phosphorus 2.7, Magnesium 1.8, Total Bilirubin 0.70, AST 107 H, ALT 108 H, Alkaline Phosphatase 373 H, Ammonia 53.0 H, Total Protein 6.6, Albumin 3.3, Globulin 3.3, Albumin/Globulin Ratio 1.0, TSH 4.500 H Physical Exam Const alert, oriented x3, no apparent distress and well nourished; Negative for average body habitus or healthy appearing Constitutional Narrative: Overweight, middle-aged, white male, sitting up in bed eating breakfast and watching television, appears much older than stated age, does not appear toxic and is comfortable appearing HEENT head/scalp atraumatic and moist oral mucous membranes Head and Scalp: normocephalic Resp normal respiratory effort, no retractions, no use of accessory muscles and No clear to auscultation bilaterally Resp Narrative: Few scattered end expiratory wheezes, no tachypnea or signs of respiratory distress, lung sounds are diffusely diminished Auscultation: wheezes; Negative for rales or rhonchi Cardio regular rate, regular rhythm, S1 normal heart sound, S2 normal heart sound, no murmurs, no rub, no gallops and no clicks GI normal to inspection, nondistended, normoactive bowel sounds, soft to palpation and non-tender Extremity no clubbing, cyanosis or edema Extremity Narrative: Pedal pulses are 2+ Neuro oriented x3, moves all extremities and no focal motor deficits Neuro Narrative: Pretty significant tremor present at this time Speech: speech normal Psych affect normal Psych Narrative: Eye contact is good and patient does interact appropriately Assessment & Plan Assessment/Plan (1) Alcohol withdrawal: QUALIFIERS: Complication of substance-induced condition: u ncomplicated Qualified Code(s): F10.930 - Alcohol use, unspecified with withdrawal, uncomplicated (2) Chronic alcohol abuse: PLAN: Plan Acute alcohol withdrawal in the setting of chronic alcohol abuse -Patient currently drinking various amounts of multiple types of alcohol regularly -Stated he drinks on most days of the week at least 4-5 -Alcohol use has increased considerably in the last 1 to 2 weeks Had symptoms of withdrawal on presentation-including nausea, shaping this, and abdominal cramping with a blood alcohol level of 189 -Continue phenobarbital taper -Continue supportive medication for 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 -Continue thiamine and folate -Appears to be doing well with no external signs of withdrawal however patient reports being internally anxious and tremulous -180 to evaluate the patient Elevated TSH -Likely euthyroid sick syndrome with a TSH of 4.5 -No further workup at this time -Outpatient follow-up History of alcoholic liver disease -Secondary to chronic alcohol use -it does appear that he was drinking at the time of his GI evaluation and stated he did not want help for his alcohol use and was drinking for bed there is 3 times a week at that point Chronic diarrhea -Patient did see GI after his last admission with referral -Colonoscopy was recommended however does not appear that he has done this yet -Continue as needed loperamide -Recommend ongoing outpatient follow-up Essential Hypertension/hyperlipidemia -Continue home amlodipine -Continue home atorvastatin GERD -Continue home PPI History of TBI/seizure disorder -Previous traumatic subdural hematoma and intraparenchymal hemorrhage -Continue home Keppra -Continue home valproic acid -Continue home cenobamate -Continue levocarnitine if on formulary as patient has had elevated ammonia levels on valproic acid -Ammonia level was elevated however mental status is stable so no need to trend unless there is a change -Patient is also currently on phenobarb for alcohol withdrawal Depression -Continue home escitalopram Osteoarthritis -Continue as needed ibuprofen Nocturnal enuresis -Continue outpatient management -Has previously been on oxybutynin ER but this was discontinued due to swelling in his lower extremities Marijuana use -Recommend cessation Tobacco abuse -Recommend cessation -Nicotine patch ordered DVT prophylaxis -Continue subcu enoxaparin daily CODE STATUS -Full code Charges/Coding Visit Charges Inpatient E&M: 63232 Subs Hosp L2
[2024-06-15] MEDS: Folic Acid 1 MG Tablet PO (08:15)
[2024-06-15] MEDS: Thiamine Hydrochloride 100 MG Tablet PO (08:15)
[2024-06-15] MEDS: amLODIPine 5 MG Tablet PO (10:03)
[2024-06-15] MEDS: Pantoprazole Sodium 40 MG Tablet PO (10:03)
[2024-06-15] MEDS: levETIRAcetam 750 MG Tablet 1500 MG PO ×2 (10:03→23:12)
[2024-06-15] MEDS: Escitalopram Oxalate 10 MG Tablet PO (10:03)
[2024-06-15] MEDS: Divalproex Sodium 250 MG Tablet 500 MG PO ×2 (10:04→23:12)
[2024-06-15] MEDS: FLU VACC 2024-25(6MOS UP)/PF 45 MCG/0.5 ML SYRINGE IM (10:04)
[2024-06-15] MEDS: Nicotine Polacrilex 2 MG GUM PO ×3 (10:05→20:30)
[2024-06-15] MEDS: Loperamide 2 MG Capsule PO (17:30)
[2024-06-16] MEDS: Phenobarbital 32.4 MG Tablet PO ×6 (00:15→20:19)
[2024-06-16] MEDS: Gabapentin 300 MG Capsule PO ×2 (02:15→20:26)
[2024-06-16 03:00] VITALS: BP 138/98; PULSE 75; RESP 15; TEMP 36.6; O2SAT 97
[2024-06-16 03:12] VITALS: BMI 29.5
[2024-06-16 04:00] VITALS: BP 138/98; PULSE 78; RESP 15; TEMP 36.3; O2SAT 96
[2024-06-16 04:55] VITALS: PULSE 80; RESP 15; O2SAT 95
[2024-06-16] MEDS: Albuterol 2.5 MG/3 ML VIAL.NEB. INHALATION (04:55)
[2024-06-16] MEDS: levOCARNitine 330 MG TABLET PO ×3 (06:04→21:58)
[2024-06-16 07:27] LABS: Magnesium 1.8 mg/dL (1.6-2.6); Phosphorus 2.6 mg/dL (2.5-4.9)
[2024-06-16] MEDS: levETIRAcetam 750 MG Tablet 1500 MG PO ×2 (07:59→21:58)
[2024-06-16] MEDS: Thiamine Hydrochloride 100 MG Tablet PO (08:00)
[2024-06-16] MEDS: Escitalopram Oxalate 10 MG Tablet PO (08:00)
[2024-06-16] MEDS: Folic Acid 1 MG Tablet PO (08:00)
[2024-06-16] MEDS: amLODIPine 5 MG Tablet PO (08:00)
[2024-06-16] MEDS: Pantoprazole Sodium 40 MG Tablet PO (08:00)
[2024-06-16] MEDS: Divalproex Sodium 250 MG Tablet 500 MG PO ×2 (08:01→21:58)
[2024-06-16 10:00] VITALS: BP 133/83; PULSE 75; RESP 16; TEMP 36.6; O2SAT 94
--- NOTE | 2024-06-16 10:47 | ADDICTION ---
This chart writer met with patient to conduct ASAM, MSE, and AUDIT assessments and to begin discussing d/c planning. Patient declined residential recommendation but reports he is willing to have an assessment with [facility]. He denies a need for transport once discharged.
--- NOTE | 2024-06-16 13:36 | CHAPLAIN ---
Type of Pastoral Visit _x__ Initial Visit ___ Follow-up Visit ___ On-call Visit ___ General Patient Visit ___ Spiritual Assessment ___ Family Conference ___ Bereavement ___ Rapid Response ___ Code Blue ___ Other (describe below) Pastoral Care Referral From _x__ Patient ___ Family ___ Nurse ___ Physician ___ Hr Administrator ___ Rehab Physician ___ Other (describe below) Sacrament/Intervention _x__ Active listening ___ Anointing ___ Sabianism ___ Bereavement ___ Communion _x__ Yomaira exploration ___ ___ Life review _x__ Prayer ___ Reconciliation ___ Sacrament of Sick _x__ Supportive presence ___ Wedding ___ Other (describe below) Pastoral Comments patient is open to spiritual care support for detox; pt states that mentally he is doing better today but not feeling real well physically; pt is able to articulate his spiritual needs and desire for more help in breaking the addiction; pt asked about yomaira based programs for alcohol recovery; directed pt to [facility] counselor who could make referrals to places that address his desire for help; pt spoke of his goal to become a part of a yomaira community; pt spoke of family history of alcoholism and has an awareness of his need; pt welcomed presence and prayer
[2024-06-16 15:30] VITALS: BP 136/80; PULSE 78; RESP 18; TEMP 36.4; O2SAT 96
--- NOTE | 2024-06-16 17:31 | PCM.PN.HOSP ---
Reason for Visit Reason for Visit: Diagnoses Disorder of urea cycle metabolism, unspecified (06/14/24) Alcohol abuse, uncomplicated (06/14/24) Alcohol use, unspecified with withdrawal, uncomplicated (06/14/24) Cannabis abuse, uncomplicated (06/14/24) Major depressive disorder, single episode, unspecified (06/14/24) Anxiety disorder, unspecified (06/14/24) Epilepsy, unspecified, not intractable, without status epilepticus (06/14/24) Other chronic pain (06/14/24) Alcoholic hepatitis without ascites (06/14/24) Diarrhea, unspecified (06/14/24) Headache, unspecified (06/14/24) Tobacco use (06/14/24) Personal history of other diseases of the digestive system (06/14/24) Subjective Subjective Patient was seen and examined today, addiction social insurance analyst saw the patient and he declined residential recommendation but reports he is willing to have an assessment done at [facility]. Patient complains of some malaise today otherwise he has no specific complaints. Objective Data Objective Data Vital Signs: Vital Signs Temp Pulse Resp BP Pulse Ox O2 Del Method 97.6 F L 78 18 136/80 H 96 Room Air 06/16/24 15:30 06/16/24 15:30 06/16/24 15:30 06/16/24 15:30 06/16/24 15:30 06/16/24 15:30 Oxygen Delivery Method Room Air Weight: 90.9 kg Body Mass Index (BMI) 29.5 Intake & Output: Intake and Output for Last 24 Hours 06/14/24 06/15/24 06/16/24 23:59 23:59 23:59 Intake Total 1800 / 2700 3000 / 3000 Balance 1800 / 2700 3000 / 3000 Lab / Micro Data 06/14/24 19:48 06/15/24 04:09 Labs: Laboratory Results - last 24 hr 06/16/24 06:06: Phosphorus 2.6, Magnesium 1.8 Physical Exam Const alert, oriented x3, no apparent distress and average body habitus General Appearance: cooperative, well kempt and well developed Orientation / Consciousness: awake, oriented to person, oriented to place and oriented to time HEENT normocephalic and moist oral mucous membranes Eyes PERRL, EOMs intact bilaterally and conjunctivae normal Neck supple, no JVD and thyroid normal General: trachea midline Resp normal respiratory effort, no retractions, no use of accessory muscles and clear to auscultation bilaterally Auscultation: Negative for rales, rhonchi or wheezes Cardio regular rate, regular rhythm, S1 normal heart sound, S2 normal heart sound, no murmurs, no rub and no gallops GI normal to inspection, nondistended, normoactive bowel sounds, soft to palpation, non-tender and non-distended Extremity no clubbing, cyanosis or edema Skin no rashes or lesions noted General Skin Exam: no breakdown Neuro oriented x3, CN's II-XII intact bilaterally, no focal motor deficits and no sensory deficits noted Sensorium / Orientation: awake and alert Speech: speech normal Psych affect normal Assessment & Plan Assessment/Plan (1) Alcohol withdrawal: QUALIFIERS: Complication of substance-induced condition: uncomplicated Qualified Code(s): F10.930 - Alcohol use, unspecified with withdrawal, uncomplicated PLAN: Plan 1. Chronic alcohol substance use disorder with acute withdrawal syndrome-patient will remain on phenobarbital #2 essential hypertension-continue amlodipine #3 hyperlipidemia-patient is on atorvastatin #4 seizure disorder-patient is on Keppra, valproic acid, and cenobamate Total clinical time spent addressing the patient's medical issues, reviewing all of his data, and collaborating with patient's care team: 35 minutes Charges/Coding Visit Charges Inpatient E&M: 89119 Subs Hosp L2
[2024-06-16 20:12] VITALS: BP 92/78; PULSE 72; RESP 18; TEMP 36.6; O2SAT 97
[2024-06-17] MEDS: Phenobarbital 32.4 MG Tablet PO ×5 (00:29→22:11)
[2024-06-17 02:14] VITALS: BP 139/85; PULSE 84; RESP 18; TEMP 36.6; O2SAT 98
[2024-06-17] MEDS: Albuterol 2.5 MG/3 ML VIAL.NEB. INHALATION (02:30)
[2024-06-17 02:32] VITALS: PULSE 80; RESP 15; O2SAT 97
[2024-06-17 04:35] VITALS: BMI 31.1
[2024-06-17] MEDS: Gabapentin 300 MG Capsule PO ×2 (04:46→20:01)
[2024-06-17] MEDS: levOCARNitine 330 MG TABLET PO ×3 (06:32→22:11)
[2024-06-17 07:58] VITALS: BP 121/84; PULSE 76; RESP 18; TEMP 36.2; O2SAT 98
[2024-06-17] MEDS: Folic Acid 1 MG Tablet PO (08:03)
[2024-06-17] MEDS: Thiamine Hydrochloride 100 MG Tablet PO (08:03)
[2024-06-17] MEDS: Pantoprazole Sodium 40 MG Tablet PO (09:45)
[2024-06-17] MEDS: levETIRAcetam 750 MG Tablet 1500 MG PO ×2 (09:45→22:11)
[2024-06-17] MEDS: Escitalopram Oxalate 10 MG Tablet PO (09:45)
[2024-06-17] MEDS: Divalproex Sodium 250 MG Tablet 500 MG PO ×2 (09:45→22:11)
[2024-06-17] MEDS: amLODIPine 5 MG Tablet PO (09:45)
--- NOTE | 2024-06-17 13:37 | PN.HOSP_ITS ---
Reason for Visit Reason for Visit: Diagnoses Disorder of urea cycle metabolism, unspecified (06/14/24) Alcohol abuse, uncomplicated (06/14/24) Alcohol use, unspecified with withdrawal, uncomplicated (06/14/24) Cannabis abuse, uncomplicated (06/14/24) Major depressive disorder, single episode, unspecified (06/14/24) Anxiety disorder, unspecified (06/14/24) Epilepsy, unspecified, not intractable, without status epilepticus (06/14/24) Other chronic pain (06/14/24) Alcoholic hepatitis without ascites (06/14/24) Diarrhea, unspecified (06/14/24) Headache, unspecified (06/14/24) Tobacco use (06/14/24) Personal history of other diseases of the digestive system (06/14/24) Subjective Subjective Patient was seen and examined today, he states he does not feel well today but he is nonspecific. Patient appears slightly nervous. Objective Data Objective Data Vital Signs: Vital Signs Temp Pulse Resp BP Pulse Ox O2 Del Method 97.2 F L 76 18 121/84 H 98 Room Air 06/17/24 07:58 06/17/24 07:58 06/17/24 07:58 06/17/24 07:58 06/17/24 07:58 06/17/24 07:58 Oxygen Delivery Method Room Air Weight: 95.6 kg Body Mass Index (BMI) 31.1 Intake & Output: Intake and Output for Last 24 Hours 06/15/24 06/16/24 06/17/24 23:59 23:59 23:59 Intake Total 1800 / 2700 3800 / 3800 2400 / 2400 Output Total 300 / 300 Balance 1800 / 2700 3800 / 3800 2100 / 2100 Lab / Micro Data 06/14/24 19:48 06/15/24 04:09 Physical Exam Narrative alert, oriented x3, patient appears mildly nervous General Appearance: cooperative, well kempt and well developed Orientation / Consciousness: awake, oriented to person, oriented to place and oriented to time HEENT normocephalic and moist oral mucous membranes Eyes PERRL, EOMs intact bilaterally and conjunctivae normal Neck supple, no JVD and thyroid normal General: trachea midline Resp normal respiratory effort, no retractions, no use of accessory muscles and clear to auscultation bilaterally Auscultation: Negative for rales, rhonchi or wheezes Cardio regular rate, regular rhythm, S1 normal heart sound, S2 normal heart sound, no murmurs, no rub and no gallops GI normal to inspection, nondistended, normoactive bowel sounds, soft to palpation, non-tender and non-distended Extremity no clubbing, cyanosis or edema Skin no rashes or lesions noted General Skin Exam: no breakdown Neuro oriented x3, CN's II-XII intact bilaterally, no focal motor deficits and no sensory deficits noted Sensorium / Orientation: awake and alert Speech: speech normal Psych Patient appears mildly nervous at this time Assessment & Plan Assessment/Plan (1) Alcohol withdrawal: QUALIFIERS: Complication of substance-induced condition: u ncomplicated Qualified Code(s): F10.930 - Alcohol use, unspecified with withdrawal, uncomplicated PLAN: Plan 1. Chronic alcohol substance use disorder with acute withdrawal syndrome- patient will remain on phenobarbital, I will reevaluate him tomorrow, patient's phenobarbital dose will be lowered tomorrow #2 essential hypertension-continue amlodipine #3 hyperlipidemia-patient is on atorvastatin #4 seizure disorder-patient is on Keppra, valproic acid, and cenobamate Total clinical time spent addressing the patient's medical issues, reviewing all of his data, and collaborating with patient's care team: 35 minutes Charges/Coding Visit Charges Inpatient E&M: 39295 Subs Hosp L2
[2024-06-17 13:38] VITALS: BP 129/73; PULSE 70; RESP 18; TEMP 36.6; O2SAT 98
[2024-06-17 19:49] VITALS: BP 145/83; PULSE 69; RESP 18; TEMP 36.4; O2SAT 97
[2024-06-17] MEDS: Loperamide 2 MG Capsule PO (20:01)
[2024-06-18 03:33] VITALS: BP 124/83; PULSE 74; RESP 18; TEMP 36.9; O2SAT 97
[2024-06-18] MEDS: Phenobarbital 32.4 MG Tablet PO ×2 (03:41→10:22)
[2024-06-18] MEDS: Gabapentin 300 MG Capsule PO (03:41)
[2024-06-18] MEDS: Loperamide 2 MG Capsule PO (03:41)
[2024-06-18] MEDS: levOCARNitine 330 MG TABLET PO (06:13)
--- NOTE | 2024-06-18 09:00 | DCINST_ITS ---
Discharge Instructions Diet Discharge Diet: No restrictions Activity Discharge Activity: Return to Normal Activity Weight Bearing Status: Full weight bearing Follow Up Care Test Results: Test results from this visit will be discussed in further detail at your follow- up appointment, if applicable. Discharge Plan Admission Admit Date/Time: 06/14/24 20:45 Primary Reason for Your Visit: Alcohol substance use withdrawal syndrome Attending Provider: Reza Price Primary Care Provider: Nick Blackwell Consulting Providers: Davy Douglass; Marli Jacinto Instructions Additional Instructions / Restrictions: Recommend you consider an outpatient alcohol detox program or at least AA for support Discharge Orders/Prescriptions Prescriptions: Continued omeprazole 40 mg capsule,delayed release(DR/EC) 40 mg PO DAILY Qty: 90 0RF Rx Instructions: Take 30 minutes before breakfast levocarnitine 330 mg tablet 330 mg PO TID Qty: 90 5RF Rx Instructions: must administer with a meal/food folic acid 1 mg tablet 1 mg PO DAILY@0800 30 Days Qty: 30 6RF divalproex 500 mg tablet,delayed release (DR/EC) 500 mg PO BID Qty: 60 5RF Xcopri 200 mg tablet 200 mg PO DAILY Qty: 30 5RF levetiracetam 750 mg tablet 1,500 mg PO BID Qty: 120 5RF loperamide 2 mg Capsule 2 mg PO Q4H PRN PRN (Reason: Loose Stools) Qty: 0 0RF atorvastatin 20 mg tablet 20 mg PO DAILY thiamine HCl (vitamin B1) 100 mg tablet 100 mg PO DAILY escitalopram oxalate [Lexapro] 10 mg tablet 10 mg PO DAILY Qty: 90 1RF amlodipine 5 mg tablet See Rx Instructions .ROUTE .COMPLEX Qty: 90 1RF Dose Instruction: TAKE 1 TABLET BY MOUTH ONCE DAILY Rx Instructions: TAKE 1 TABLET BY MOUTH ONCE DAILY albuterol sulfate 90 mcg/actuation HFA aerosol inhaler See Rx Instructions .ROUTE .COMPLEX Qty: 8.5 2RF Dose Instruction: INHALE 2 PUFFS EVERY 6 HOURS NEEDED FOR SHORTNESS OF BREATH Rx Instructions: INHALE 2 PUFFS EVERY 6 HOURS NEEDED FOR SHORTNESS OF BREATH Referrals / Follow Up: Nick Blackwell MD [Primary Care Provider] - Disposition Disposition (needs filled in before D/C Order can be placed): Home, Self Care
--- NOTE | 2024-06-18 09:03 | PCM.DC.SUM ---
Providers Date of Admission: 06/14/24 Date of Discharge: 06/18/24 Primary Care Physician: Dr. Nick Blackwell MD Reason For Visit: IMPENDING ETOH WITHDRAWL Diagnosis Discharge Diagnosis (1) Alcohol withdrawal: Status: Acute Code(s): F10.939 - Alcohol use, unspecified with withdrawal, unspecified Qualifiers: Complication of substance-induced condition: uncomplicated Qualified Code(s): F10.930 - Alcohol use, unspecified with withdrawal, uncomplicated Plan 1. Chronic alcohol substance use disorder with acute withdrawal syndrome-patient will remain on phenobarbital, I will reevaluate him tomorrow, patient's phenobarbital dose will be lowered tomorrow #2 essential hypertension-continue amlodipine #3 hyperlipidemia-patient is on atorvastatin #4 seizure disorder-patient is on Keppra, valproic acid, and cenobamate #5 alcohol intoxication present on admission Total clinical time spent addressing the patient's medical issues, reviewing all of his data, and collaborating with patient's care team: 35 minutes Medications at Discharge Home Medications omeprazole 40 mg capsule,delayed release 40 mg PO DAILY #90 caps 09/24/23 loperamide 2 mg capsule 2 mg PO Q4H PRN PRN Loose Stools #0 caps 01/11/24 cenobamate 200 mg tablet (Xcopri) 200 mg PO DAILY #30 tabs 02/04/24 divalproex 500 mg tablet,delayed release 500 mg PO BID #60 tabs 02/04/24 folic acid 1 mg tablet 1 mg PO DAILY@0800 30 days #30 tabs 02/04/24 levetiracetam 750 mg tablet 1,500 mg (2 x 750 mg) PO BID #120 tabs 02/04/24 levocarnitine 330 mg tablet 330 mg PO TID #90 tabs 02/04/24 amlodipine 5 mg tablet See Rx Instructions .Route .COMPLEX #90 tabs 03/26/24 escitalopram oxalate 10 mg tablet (Lexapro) 10 mg PO DAILY #90 tabs 03/26/24 albuterol sulfate 90 mcg/actuation aerosol inhaler See Rx Instructions .Route .COMPLEX #8.5 grams 03/31/24 atorvastatin 20 mg tablet 20 mg PO DAILY cholesterol 06/14/24 thiamine HCl (vitamin B1) 100 mg tablet 100 mg PO DAILY 06/14/24 Hospital Course Operations None Procedures None Summary of Care Provided Minutes Spent on Discharge: 31 Hospital Course: This 54-year-old white male was seen in the emergency room at [facility] requesting services for alcohol detox. Labs were remarkable for elevated liver enzymes, patient's ethyl alcohol level was elevated at 189, sodium was slightly low which was not felt to be significant. Patient was admitted to [place] [id number], orders were entered using the alcohol detox order set he was seen in consultation by addiction social worker aide. During this patient's hospital stay, there were no serious symptoms of alcohol withdrawal. On 06/18/2024, patient was seen and examined: On examination he appeared in good health and spirits. Vital signs as documented. Skin warm and dry and without overt rashes. Neck without JVD, neck was supple, trachea midline, thyroid was normal. Lungs clear bilaterally, normal air movement was noted. Heart exam notable for regular rhythm, normal sounds and absence of murmurs, rubs or gallops. Abdomen unremarkable and without evidence of organomegaly, masses, or abdominal aortic enlargement. Bowel sounds are present, abdomen is not distended. Extremities nonedematous, no cyanosis was noted, no clubbing was noted. Neuro: Cranial nerves II through XII are grossly intact, no focal motor deficits were noted, sensation to light touch and pinprick intact, motor exam 5/5 throughout. Psych: Patient is alert and oriented x3, he does not appear anxious or depressed, he does not appear agitated. Patient was felt to be stable for discharge home on 06/18/2024, patient declined residential admission to a detox unit but agreed to have an assessment at [facility] as an outpatient. Weight / BMI Weight Weight: 95.6 kg Body Mass Index (BMI) 31.1 ABG / Lab / Microbiology Data 06/14/24 19:48 06/15/24 04:09 D/C Instructions Discharge Diet: No restrictions Weight Bearing Status: Full weight bearing Meaningful Use Info Meaningful Use Meaningful Use Diagnoses (Choose all that apply): None applicable Ischemic Stroke Statin Dosing Therapy Reference: STATIN DOSE THERAPY REFERENCE: * Patients > 75 years receive moderate or high dose statin therapy. * Patients 75 years or YOUNGER should receive HIGH intensity statin dose unless contraindicated. You will be required to document reason for non-treatment if statin daily dose does not meet guidelines. HIGH DOSE STATIN THERAPY DAILY Atorvastatin > than or = to 40 mg Rosuvastatin > than or = to 20 mg Amlodipine + Atorvastatin > than or = to 2.5/40 mg Ezetimibe + Simvastatin 10/80 mg Simvastatin 80mg Discharge Plan Admission Admit Date/Time: 06/14/24 20:45 Primary Reason for Your Visit: Alcohol substance use withdrawal syndrome Attending Provider: Reza Price Primary Care Provider: Nick Blackwell Consulting Providers: Davy Douglass; Marli Jacinto Instructions Additional Instructions / Restrictions: Recommend you consider an outpatient alcohol detox program or at least AA for support Discharge Orders/Prescriptions Prescriptions: Continued omeprazole 40 mg capsule,delayed release(DR/EC) 40 mg PO DAILY Qty: 90 0RF Rx Instructions: Take 30 minutes before breakfast levocarnitine 330 mg tablet 330 mg PO TID Qty: 90 5RF Rx Instructions: must administer with a meal/food folic acid 1 mg tablet 1 mg PO DAILY@0800 30 Days Qty: 30 6RF divalproex 500 mg tablet,delayed release (DR/EC) 500 mg PO BID Qty: 60 5RF Xcopri 200 mg tablet 200 mg PO DAILY Qty: 30 5RF levetiracetam 750 mg tablet 1,500 mg PO BID Qty: 120 5RF loperamide 2 mg Capsule 2 mg PO Q4H PRN PRN (Reason: Loose Stools) Qty: 0 0RF atorvastatin 20 mg tablet 20 mg PO DAILY thiamine HCl (vitamin B1) 100 mg tablet 100 mg PO DAILY escitalopram oxalate [Lexapro] 10 mg tablet 10 mg PO DAILY Qty: 90 1RF amlodipine 5 mg tablet See Rx Instructions .ROUTE .COMPLEX Qty: 90 1RF Dose Instruction: TAKE 1 TABLET BY MOUTH ONCE DAILY Rx Instructions: TAKE 1 TABLET BY MOUTH ONCE DAILY albuterol sulfate 90 mcg/actuation HFA aerosol inhaler See Rx Instructions .ROUTE .COMPLEX Qty: 8.5 2RF Dose Instruction: INHALE 2 PUFFS EVERY 6 HOURS NEEDED FOR SHORTNESS OF BREATH Rx Instructions: INHALE 2 PUFFS EVERY 6 HOURS NEEDED FOR SHORTNESS OF BREATH Referrals / Follow Up: Nick Blackwell MD [Primary Care Provider] - Disposition Disposition (needs filled in before D/C Order can be placed): Home, Self Care Charges/Coding Visit Charges Inpatient E&M: 15450 Disch Hosp >30min
[2024-06-18 09:30] VITALS: BP 131/86; PULSE 70; RESP 18; TEMP 36.6; O2SAT 98
[2024-06-18 09:57] VITALS: BP 131/86; PULSE 74; RESP 18; TEMP 36.6; O2SAT 98
[2024-06-18] MEDS: Pantoprazole Sodium 40 MG Tablet PO (10:23)
[2024-06-18] MEDS: Thiamine Hydrochloride 100 MG Tablet PO (10:23)
[2024-06-18] MEDS: levETIRAcetam 750 MG Tablet 1500 MG PO (10:23)
[2024-06-18] MEDS: Divalproex Sodium 250 MG Tablet 500 MG PO (10:23)
[2024-06-18] MEDS: Folic Acid 1 MG Tablet PO (10:24)
[2024-06-18] MEDS: Escitalopram Oxalate 10 MG Tablet PO (10:24)
[2024-06-18] MEDS: amLODIPine 5 MG Tablet PO (10:24)
[2024-06-18 10:34] VITALS: BP 131/86; PULSE 70; RESP 18; TEMP 36.6; O2SAT 98
--- NOTE | 2024-06-18 13:36 | PHA.DC.MR.R ---
Pharmacy PR Med Reconciliation Pharmacy Service has performed discharge medication reconciliation for this patient. The patient's discharge medication list was reviewed for discrepancies and discrepancies were resolved. Medications at Discharge Home Medications omeprazole 40 mg capsule,delayed release 40 mg PO DAILY #90 caps 09/24/23 loperamide 2 mg capsule 2 mg PO Q4H PRN PRN Loose Stools #0 caps 01/11/24 cenobamate 200 mg tablet (Xcopri) 200 mg PO DAILY #30 tabs 02/04/24 divalproex 500 mg tablet,delayed release 500 mg PO BID #60 tabs 02/04/24 folic acid 1 mg tablet 1 mg PO DAILY@0800 30 days #30 tabs 02/04/24 levetiracetam 750 mg tablet 1,500 mg (2 x 750 mg) PO BID #120 tabs 02/04/24 levocarnitine 330 mg tablet 330 mg PO TID #90 tabs 02/04/24 amlodipine 5 mg tablet See Rx Instructions .Route .COMPLEX #90 tabs 03/26/24 escitalopram oxalate 10 mg tablet (Lexapro) 10 mg PO DAILY #90 tabs 03/26/24 albuterol sulfate 90 mcg/actuation aerosol inhaler See Rx Instructions .Route .COMPLEX #8.5 grams 03/31/24 atorvastatin 20 mg tablet 20 mg PO DAILY cholesterol 06/14/24 thiamine HCl (vitamin B1) 100 mg tablet 100 mg PO DAILY 06/14/24
== END 2024-06-18 10:32 | disposition home or self-care (01) | DRG 775 ==
LOC: ED 20:04 → MS3 21:07
PROVIDERS: Admitting Provider Internal Medicine; Emergency Provider Emergency Medicine; PCP Internal Medicine; Visit Provider Internal Medicine
DX: F10.939 Alcohol use, unspecified with withdrawal, unspecified (principal); E72.20 Disorder of urea cycle metabolism, unspecified; G40.909 Epilepsy, unspecified, not intractable, without status epilepticus; J44.9 Chronic obstructive pulmonary disease, unspecified; K70.10 Alcoholic hepatitis without ascites; I10 Essential (primary) hypertension; F12.10 Cannabis abuse, uncomplicated; E87.0 Hyperosmolality and hypernatremia; K52.9 Noninfective gastroenteritis and colitis, unspecified; F41.8 Other specified anxiety disorders; M19.90 Unspecified osteoarthritis, unspecified site; K21.9 Gastro-esophageal reflux disease without esophagitis; E78.5 Hyperlipidemia, unspecified; F17.210 Nicotine dependence, cigarettes, uncomplicated; G89.29 Other chronic pain; Z79.891 Long term (current) use of opiate analgesic; E07.81 Sick-euthyroid syndrome; Z79.01 Long term (current) use of anticoagulants; Y90.6 Blood alcohol level of 120-199 mg/100 ml; Z90.49 Acquired absence of other specified parts of digestive tract; Z87.820 Personal history of traumatic brain injury; R51.9 Headache, unspecified; F10.929 Alcohol use, unspecified with intoxication, unspecified
CPT/HCPCS: 36415; 80053; 80164; 80307; 82077; 82140; 83690; 83735; 84100; 84443; 85025; 90656; 93005; 94640; 94668; 99285; J7030; A4216

== ENCOUNTER → 2024-10-02 | Outpatient (CLI) | payer MEDICAID, SELFPAY ==
[2024-10-02 07:13] LABS: Hematocrit 45.6 % (40-54); Hemoglobin 15.2 g/dL (13.0-16.5); Mean Corp Hgb Conc 33.3 g/dL (32-36); Mean Corpuscular Hgb 31.4 pg (27.0-32.0); Mean Corpuscular Volume 94.2 fL (80-94); Mean Platelet Vol. 8.9 fl (6.2-12.0); Platelet Count 364 K/mm3 (150-450); RBC Distribution Width CV 13.8 % (11.6-14.6); RBC Distribution Width SD 48.4 fl (35.1-43.9); Red Blood Count 4.84 M/mm3 (4.6-6.2); White Blood Count 8.8 K/mm3 (4.4-11.0)
[2024-10-02 07:58] LABS: Valproic Acid (Depakene) Level 32 ug/mL (50-100)
[2024-10-02 08:04] LABS: ALB/GLOB Ratio 0.9 RATIO (0.9-2.4); AST(SGOT) 12 U/L (15-37); Alanine Aminotransfer ALT/SGPT 11 U/L (16-61); Albumin, Serum 3.3 g/dL (3.2-5.0); Alkaline Phosphatase 46 U/L (45-117); Anion Gap 5 (5-15); BUN 14 mg/dL (7-18); BUN/Creat Ratio 18.3 RATIO (10-20); Calcium,Total 8.8 mg/dL (8.5-10.1); Chloride 106 mmol/L (98-107); Creatinine, Serum 0.77 mg/dL (0.70-1.30); EST Glomerular Filtration Rate 113 mL/min (>60); Est Glom Filt Rate - Afr Amer 137 mL/min (>60); Globulin 3.8 g/dL (2.2-4.2); Glucose 101 mg/dL (74-106); Potassium 4.2 mmol/L (3.5-5.1); Protein, Total 7.1 g/dL (6.4-8.2); Sodium Level 137 mmol/L (136-145); T4 Free Direct 0.84 ng/dL (0.76-1.46)
[2024-10-05 07:07] LABS: KEPPRA (LEVETIRACETAM) 14.7 ug/mL (10.0-40.0)
== END | disposition home or self-care (01) ==
LOC: LAB 06:56
PROVIDERS: PCP Internal Medicine; Referring Provider Psychiatry & Neurology Neurology; Visit Provider Psychiatry & Neurology Neurology
DX: G40.409 Other generalized epilepsy and epileptic syndromes, not intractable, without status epilepticus (principal); R79.89 Other specified abnormal findings of blood chemistry
CPT/HCPCS: 36415; 80053; 80164; 80177; 82140; 83735; 84439; 84443; 85027

== ENCOUNTER → 2025-01-29 | Outpatient (CLI) | payer MEDICAID, SELFPAY | END | disposition home or self-care (01) | PROVIDERS: PCP Family Medicine; Referring Provider Psychiatry & Neurology Neurology; Visit Provider Psychiatry & Neurology Neurology | DX: G40.409 Other generalized epilepsy and epileptic syndromes, not intractable, without status epilepticus (principal) | CPT/HCPCS: 95819 ==

== ENCOUNTER → 2025-02-05 | Outpatient (CLI) | payer MEDICAID, SELFPAY ==
--- OUTSIDE RECORDS SUMMARY | 2025-02-05 07:17 | XMS RPT_ITS | CCD ---
Author Organization 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 Name Role Phone GIULIANO, KAT A Unavailable Unavailable ZINNI, KAT A Unavailable Unavailable ZINNI, KAT A Unavailable Unavailable ZINNI, KAT A Unavailable Unavailable ZINNI, KAT A Unavailable Unavailable ZINNI, KAT A Unavailable Unavailable ZINNI, KAT A Unavailable Unavailable ZINNI, KAT A Unavailable Unavailable ZINNI, KAT A Unavailable Unavailable ZINNI, KAT A Unavailable Unavailable VASU BLACKWELL MD Primary Care Physician [phone] PROVIDER, UNKNOWN Attending Unavailable PROVIDER, UNKNOWN Admitting Unavailable SAMMY AMOR Admitting Unavailable BERTA MONTAÑO Referring Unavailable PROVIDER, UNKNOWN Attending Unavailable SAMMY AMOR Admitting Unavailable BERTA MONTAÑO Referring Unavailable AHMAKim SUBHAN Attending Unavailable PROVIDER, UNKNOWN Admitting Unavailable PROVIDER, UNKNOWN Attending Unavailable Dr. Vasu Blackwell Primary Care Provider [phone] Dr. Vasu Blackwell Attending Provider [phone] Dr. Vasu Blackwell Referring Provider [phone] Unknown, Referring Provider Unavailable Unav ailable Unavailable Unavailable Unavailable Primary Care Provider Unavailabl Dr. Vasu Espitia Primary Care Provider [phone] Dr. Vasu Blackwell Attending Provider [phone] Dr. Vasu Blackwell Referring Provider [phone] Dr. Errol Moore Attending Provider Dr. Wolfgang Tyler Emergency Provider Dr. Sanya Caldwell Attending Provider Dr. Sanya Caldwell Admit Provider Dr. Sanya Caldwell Referring Provider Dr. Sanya Caldwell Other Provider Dr. Vasu Blackwell Primary Care Provider [phone] Rosalva, Dr. Romero Attending Provider [phone] Dr. Vasu Blackwell Referring Provider [phone] Dr. Errol Moore Attending Provider Dr. Wolfgang Tyler Emergency Provider Dr. Sanya Caldwell Attending Provider Dr. Sanya Caldwell Admit Provider Dr. Sanya Caldwell Other Provider Dr. Tera Bloom Attending Provider Wolf, Dr. Haley Other Provider Dr. Vasu Blackwell Primary Care Provider [phone] Rosalva, Dr. Romero Referring Provider [phone] Rosalva, Dr. Romero Attending Provider [phone] Rosalva, Dr. Romero Primary Care Provider [phone] Rosalva, Dr. Romero Referring Provider [phone] Dr. Vasu Blackwell Primary Care Provider [phone] Rosalva, Dr. Romero Attending Provider [phone] Dr. Vasu Blackwell Referring Provider [phone] Dr. Errol Moore Attending Provider Unavailable Primary Care Provider Unavailabl JOHN Matute DO Attending Unavailable VASU BLACKWELL MD Primary Care Unavailab Chavez Gregorio MD Unavailable Waldo Galo MD Primary Care Provider Podlogar RECEIVING MANAGER.DIVISION CONTROLLER, Shira Unavailable Lizy RECEIVING MANAGER.DIVISION CONTROLLER, Suzy Unavailable Rosalva BONNER, Dr. Romero Primary Care Provider Rosalva BONNER, Dr. Romero Referring Provider Oscar BONNER, Dr. Norton Attending Provider Oscar BONNER, Dr. Norton Referring Provider Thalia MRI MANAGER-C, Marta Attending Provider Oscar BONNER, Errol Sven Unavailable [phone] WALDO GALO Attending Unavailab WALDO Beaver Primary Care Unavailab le PODLOGSHIRA ACUÑA Attending Unavailable WALDO GALO Primary Care Unavailab le WALDO GALO Referring Unavailab le WALDO GALO Primary Care Unavailab le WALDO GALO Attending Unavailab le SELF Referring Unavailable WALDO GALO Primary Care Unavailab le PODLOGARSHIRA Attending Unavailable WALDO GALO Primary Care Unavailab le ERIKAPSTER, ALEXANDRO Referring Unavailable MANNY GALOER B Primary Care Unavailab le HARPSTERJAXSONA Attending Unavailable WALDO GALO Referring Unavailab le MANNY GALOER B Primary Care Unavailab le MANNY GALOER B Referring Unavailab le MANNY GALOER B Primary Care Unavailab le MANNY GALOER B Referring Unavailab le MANNY GALOER B Primary Care Unavailab le Errol Moore Attending Unavailable Errol Moore Referring Unavailable Miguel Galo Primary Care Unavailable Errol Moore Attending Unavailable Errol Moore Referring Unavailable Miguel Galo Primary Care Unavailable Errol Moore Referring Unavailable Errol Moore Attending Unavailable Manny Galoe Primary Care Unavailable Errol Moore Attending Unavailable Oleghe, Efewongbe Primary Care Unavailable Adityaghe, Efewongbe Referring Unavailable Rosalva Efewongbe Referring Unavailable Errol Moore Attending Unavailable Oleghe, Efewongbe Primary Care Unavailable Oleghe, Efewongbe Referring Unavailable Marta Vásquez Attending Unavailable Oleghe, Efewongbe Primary Care Unavailable Oleghe, Efewongbe Referring Unavailable Errol Moore Attending Unavailable Oleghe, Efewongbe Primary Care Unavailable Oleghe, Efewongbe Primary Care Unavailable Tera Bloom Attending Unavailable Oleghe, Efewongbe Referring Unavailable Davy Douglass Admitting Unavailable Davy Douglass Attending Unavailable Davy Douglass Consulting Unavailable Oleghe, Efewongbe Primary Care Unavailable Marli Jacinto Attending Unavailable Marli Jacinto Consulting Unavailable Reza Price Attending Unavailable Reza Price Consulting Unavailable Oleghe, Efewongbe Primary Care Unavailable Oleghe, Efewongbe Referring Unavailable Tera Bloom Attending Unavailable Oleghe, Efewongbe Primary Care Unavailable Tera Bloom Attending Unavailable Oleghe, Efewongbe Referring Unavailable Davy Douglass Admitting Unavailable Davy Douglass Consulting Unavailable Oleghe, Efewongbe Primary Care Unavailable Reza Price Attending Unavailable Marli Jacinto Consulting Unavailable Errol Moore Attending Unavailable Errol Moore Referring Unavailable Oleghe, Efewongbe Primary Care Unavailable Rosalva BONNER, Dr. Romero Primary Care Provider Rosalva BONNER, Dr. Romero Referring Provider [phone] Dr. Errol Moore MD Attending Provider Dr. Errol Moore MD Referring Provider Dr. Miguel Galo MD Primary Care Provider Allergies Allergy Classification Reported Allergen(s) Allergy Type Date of Onset Reaction(s) Facility (20 sources) acetaminophen / HYDROcodone; Translations: [HYDROCODONE-ACET AMINOPHEN] Drug Allergy 0 Mental Status Change [facility] Repository (1 source) amoxicillin; Translations: [AMOXICILLIN] Drug Allergy 4 AOF [facility] Repository (18 sources) Codeine; Translations: [CODEINE] Drug [facility] [address] [facility]) HYDROcodone; Translations: [hydrocodone bitartrate] Drug Allergy 2 Other [facility] Comment on above: NIGHTMARES (16 sources) Morphine; Translations: [MORPHINE] Drug Allergy 9 Mental Status Change [facility] Medications Current Medications Medication Drug Class(es) Dates Sig (Normalized) Sig (Original) [id number] 200 actuat albuterol 0.09 mg/actuat metered dose inhaler (20 sources) beta2-Adrenergic Agonist Start: 2024 End: 03-31-2024 take 2 puff(s) by inhalation every six hours as needed Albuterol Sulfate 90 mcg/actuation HFA aerosol inhaler Active 0 .ROUTE .COMPLEX 8.5 March 31, 2024 9:55am INHALE 2 PUFFS EVERY 6 HOURS NEEDED FOR SHORTNESS OF BREATH Start: 02-07-2023 End: 01-08-2024 take 2 puff(s) by inhalation every six hours as needed Albuterol Sulfate 90 mcg/actuation HFA aerosol inhaler Discontinued 0 .ROUTE .COMPLEX 8.5 December 28, 2023 1:29pm January 08, 2024 3:44am INHALE 2 PUFFS EVERY 6 HOURS NEEDED FOR SHORTNESS OF BREATH Start: 10-26-2021 take 1 puff(s) by in halation every six hours Albuterol Sulfate (Proair Hfa) 90 mcg/actuation HFA aerosol inhaler Active 2 PUFF INHALATION EVERY 6 HOURS 8.October 26, 2021 9:40am Start: 08-04-2021 End: 10-26-2021 take 1 puff(s) by inhalation every six hours Albuterol Sulfate (Proair Hfa) 90 mcg/actuation HFA aerosol inhaler Discontinued 1 - 2 PUFF INHALATION EVERY 6 HOURS 8.5 August 04, 2021 5:04pm October 26, 2021 9:40am Start: 10-22-2020 End: 10-22-2020 Albuterol Sulfate 90 mcg/act uation HFA aerosol inhaler Discontinued g INHALATION October 22, 2020 1:00am October 22, 2020 9:22am Start: 10-22-2020 End: 02-07-2023 Albuterol Sulfate (Proair Hf a) 90 mcg/actuation HFA aerosol inhaler Discontinued 2 NMA INHALATION EVERY 6 HOURS as needed for shortness of breath or wheezing 8.5 August 09, 2022 3:23pm October 02, 2022 2:15pm Start: 10-22-2020 End: 10-22-2020 Albuterol Sulfate Discontinu ed GM INHALATION October 22, 2020 1:00am October 22, 2020 9:22am Start: 10-22-2020 End: 02-07-2023 take 1 puff(s) by inhalation every six hours Albuterol Sulfate (Proair Hfa) 90 mcg/actuation HFA aerosol inhaler Discontinued 2 PUFF INHALATION EVERY 6 HOURS 8.5 August 09, 2022 3:23pm October 02, 2022 2:15pm Start: 08-17-2020 End: 11-10-2024 take 2 puff(s) by inhalation every four hours as needed albuterol HFA (VENTOLIN HFA) 90 mcg/actuation inhaler Inhale 2 Puffs as instructed every 4 hours as needed. 18 g 2 11/10/2024 Active atorvastatin 20 mg oral tablet (20 sources) HMG-CoA Reductase Inhibitor Start: 04-11-2024 End: 07-22-2025 take 1 tablet by mouth once daily Atorvastatin 20 mg tablet Active 20 mg PO DAILY June 14, 2024 12:00am Cenobamate (12 sources) Start: 10-26-2021 Cenobamate (Xc opri Titration Pack) 150 mg (14)- 200 mg (14) tablets,dose pack Active 0 PO .COMPLEX October 26, 2021 9:18am 150 mg PO PO; Start: 10-26-2021 End: 05-28-2023 Cenobamate (Xcopri Titration Pack) 150 mg (14)- 200 mg (14) tablets,dose pack Discontinued 0 PO .COMPLEX October 26, 2021 12:00am May 28, 2023 8:49am 150 mg PO PO; Start: 10-26-2021 End: 05-28-2023 Cenobamate (Xcopri Titration Pack) 150 mg (14)- 200 mg (14) tablets,dose pack Discontinued 0 PO .COMPLEX October 26, 2021 1:00am May 28, 2023 9:49am 150 mg PO PO; DULoxetine 30 mg delayed release oral capsule (3 sources) Serotonin and Norepinephrine Reuptake Inhibitor Start: 01-01-2025 take 1 capsule by mouth once daily, then take 2 capsules by mouth once daily Duloxetine 30 mg capsule,delayed release(DR/EC) Active 60 mg PO .COMPLEX 60 January 01, 2025 12:00am take 1 capsule (30mg) po qd x 2 weeks then increase to 2 capsules (60mg) po qd thereafter loperamide hydrochloride 2 mg oral capsule (3 sources) Opioid Agonist Start: 01-11-2024 take 1 capsule by mouth every four hours as needed Loperamide 2 mg Capsule Active 2 mg PO EVERY 4 HOURS NEEDED as needed for Loose Stools 0 January 11, 2024 12:00am losartan potassium 25 mg oral tablet (18 sources) Angiotensin 2 Receptor Alicia Start: 06-26-2024 End: 07-22-2025 take 1 tablet by mouth once daily Losartan 25 mg tablet Active 25 mg PO daily January 01, 2025 12:00am meloxicam 7.5 mg oral tablet (1 source) Nonsteroidal Anti-inflammatory Drug Start: 01-16-2025 take 1 tablet by mouth twice daily as needed for pain Meloxicam 7.5 mg tablet Active 7.5 mg PO TWICE A DAY as needed for pain January 16, 2025 12:00am Tiotropium-Olodate rol (14 sources) Anticholinergic, beta2-Adrenergic Agonist Start: 01-01-2025 Tiotropium-Olodatero l (Stiolto Respimat) 2.5-2.5 mcg/actuation mist Active 2 NMA INHALATION daily January 01, 2025 12:00am Start: 07-23-2024 End: 04-23-2025 tiotropium-olodaterol (STIOL TO RESPIMAT) 2.5-2.5 mcg/actuation inhaler Indications: Persistent cough , Wheezing , Tobacco use Inhale 2 Puffs as instructed once daily. 60 Each 2 11/10/2024 01/23/2025 Discontinued 24 hr oxybutynin chloride 10 mg extended release oral tablet (5 sources) Cholinergic Muscarinic Antagonist Start: 01-07-2024 take 10 tablets by mouth every hour oxybutynin 10 mg/24 hr oral tablet, extended release 0 Refill(s) Start Date: 01/07/24 Status: Ordered Start: 10-15-2023 End: 02-04-2024 take 1 tablet by mouth every twenty-four hours at bedtime Oxybutynin Chloride 10 mg tablet extended release 24hr Discontinued 10 mg PO AT BEDTIME October 15, 2023 1:00am February 04, 2024 9:22am thiamine 100 mg oral tablet (20 sources) Start: 04-09-2024 End: 10-06-2024 take 1 tablet by mouth once daily Thiamine Hcl (Vitamin B1) 100 mg tablet Active 100 mg PO DAILY June 14, 2024 12:00am Start: 06-20-2023 End: 01-08-2024 take 1 tablet by mouth once daily at mealtime Thiamine Hcl (Vitamin B1) (Vitamin B-1) 100 mg Tablet Discontinued 100 mg PO DAILY WITH MEALS June 20, 2023 12:00am January 08, 2024 3:43am Start: 01-31-2021 End: 06-16-2023 take 1 tablet by mouth once daily Thiamine Hcl (Vitamin B1) 100 mg Tablet Discontinued 100 mg PO DAILY March 11, 2021 12:00am June 16, 2023 1:33pm Start: 06-22-2020 End: 07-22-2020 take 1 tablet by mouth once daily Thiamine Hcl (Vitamin B1) 100 mg tablet Discontinued 100 mg PO DAILY June 22, 2020 3:47pm July 22, 2020 3:08pm Completed/Discontinued Medications Medication Drug Class(es) Dates Sig (Normalized) Sig (Original) acetaminophen 500 mg oral tablet (13 sources) Start: 03-11-2021 End: 06-16-2023 take 2 tablets by mouth once daily as needed for pain Acetaminophen (Tylenol Extra Strength) 500 mg Tablet Discontinued 1000 mg PO DAILY as needed for Pain March 11, 2021 12:00am June 16, 2023 1:33pm Start: 06-18-2019 End: 04-09-2024 take 2 tablets by mouth every six hours as needed acetaminophen (TYLENOL) 325 mg tablet Take 2 tablets by mouth every 6 hours as needed for Pain. 06/18/2019 04/09/2024 Discontinued aluminum hydroxide 80 mg/ml / magnesium hydroxide 80 mg/ml / simethicone 8 mg/ml oral suspension (12 sources) Start: 12-18-2019 End: 12-25-2019 take 1 mL by mouth three times daily as needed Alum-Mag Hydroxide-Simeth 30 ML suspension Discontinued 30 mL PO 3 TIMES DAILY NEEDED as needed for Dyspepsia 1 December 18, 2019 8:56am December 24, 2019 12:00am December 25, 2019 12:02am Start: 12-18-2019 End: 12-25-2019 take 1 mL by mouth three times daily as needed Alum-Mag Hydroxide-Simeth Discontinued 30 ML PO 3 TIMES DAILY NEEDED 1 December 18, 2019 8:56am December 25, 2019 12:02am amitriptyline hydrochloride 75 mg oral tablet (20 sources) Tricyclic Antidepressant Start: 04-05-2021 End: 05-31-2023 take 1 tablet by mouth at bedtime Amitriptyline 75 mg tablet Discontinued 75 mg PO AT BEDTIME April 05, 2021 8:37am May 31, 2023 9:45am Start: 04-05-2021 End: 04-05-2021 take 1 tablet by mouth at bedtime Amitriptyline 50 mg tablet Discontinued 50 mg PO AT BEDTIME April 05, 2021 12:00am April 05, 2021 8:39am Start: 01-04-2021 End: 04-05-2021 take 1 tablet by mouth at bedtime Amitriptyline 25 mg tablet Discontinued 25 mg PO AT BEDTIME January 04, 2021 12:00am April 05, 2021 8:19am amLODIPine 5 mg oral tablet (20 sources) Dihydropyridine Calcium Channel Alicia Start: 05-28-2023 End: 07-22-2025 take 1 tablet by mouth once daily Amlodipine 5 mg tablet Discontinued 0 .ROUTE .COMPLEX January 15, 2024 11:39am January 18, 2024 8:32am TAKE 1 TABLET BY MOUTH ONCE DAILY cenobamate 200 mg oral tablet (20 sources) Start: 05-28-2023 End: 01-01-2025 take 1 tablet by mouth once daily Cenobamate (Xcopri) 200 mg tablet Discontinued 200 mg PO DAILY September 30, 2024 9:16am January 01, 2025 8:54am Start: 02-21-2022 take 1 tablet by senia th at bedtime Xcopri 200 MG Oral Tablet TAKE 1 TABLET Bedtime Quantity: 30 Refills: 5 Ordered: 21-Feb-2022 Alvin Tyler MD Start : 21-Feb-2022 Active clonazePAM 1 mg oral tablet (12 sources) Benzodiazepine Start: 09-14-2013 End: 06-27-2014 take 1 tablet by mouth twice daily Clonazepam 1 MG tablet Discontinued 1 mg PO TWICE A DAY September 14, 2013 1:00am June 27, 2014 10:12am escitalopram 10 mg oral tablet (20 sources) Serotonin Reuptake Inhibitor Start: 2024 End: 07-22-2025 take 1 tablet by mouth once daily Escitalopram Oxalate (Lexapro) 10 mg tablet Discontinued 10 mg PO DAILY 2024 4:31pm January 01, 2025 8:42am Start: 01-18-2024 End: 2024 take 0.5 tablet by mouth once daily, then take 1 tablet by mouth once daily Escitalopram Oxalate (Lexapro) 10 mg tablet Discontinued 10 mg PO DAILY January 18, 2024 12:00am 2024 4:32pm Take 1/2 tablet daily x 2 weeks then increase to 1 tablet daily flurbiprofen 100 mg oral tablet (9 sources) Nonsteroidal Anti-inflammatory Drug Start: 07-07-2024 End: 01-16-2025 take 1 tablet by mouth three times daily as needed for headache Flurbiprofen 100 mg tablet Discontinued 100 mg PO THREE TIMES A DAY as needed for headache 270 January 01, 2025 8:43am January 16, 2025 10:14pm folic acid 1 mg oral tablet (20 sources) Start: 02-01-2021 End: 09-30-2024 take 1 tablet by mouth once daily Folic Acid 1 mg Tablet Discontinued 1 mg PO DAILY@0800 30 30 June 20, 2023 12:00am October 15, 2023 9:42am ibuprofen 600 mg oral tablet (20 sources) Nonsteroidal Anti-inflammatory Drug Start: 06-01-2023 End: 06-16-2023 take 1 tablet by mouth twice daily as needed for pain Ibuprofen 600 mg tablet Discontinued 600 mg PO TWICE A DAY as needed for Headaches/musculo skeletal pain 60 June 01, 2023 12:00am June 16, 2023 1:33pm take 1 tablet by senia th every six hours as needed ibuprofen (MOTRIN) 600 mg tablet Take 60 0 mg by mouth every 6 hours as needed. Active levETIRAcetam 750 mg oral ta blet (20 sources) Start: 01-07-2024 levETIRAcetam 750 mg oral tablet 0 Refill(s) Start Date: 01/07/24 Status: Ordered Start: 04-05-2021 End: 10-15-2023 take 1500 mg by mouth twice daily Levetiracetam Active 1500 MG PO TWICE A DAY 120 October 15, 2023 9:38am Start: 01-31-2021 End: 01-01-2025 take 2 tablets by mouth twice daily Levetiracetam 750 mg tablet Discontinued 1500 mg PO TWICE A DAY 360 September 30, 2024 9:17am January 01, 2025 8:50am Start: 01-04-2021 End: 04-05-2021 Levetiracetam (Keppra) 1,000 mg tablet Discontinued 1500 mg PO TWICE A DAY January 04, 2021 12:00am April 05, 2021 8:20am Start: 07-24-2020 End: 01-04-2021 take 1 tablet by mouth twice daily Levetiracetam 500 mg tablet Discontinued 500 mg PO TWICE A DAY 60 August 16, 2020 5:39pm August 25, 2020 12:32pm Start: 07-23-2020 levETIRAcetam (KEPPRA) 500 mg tablet Take 750 mg by mouth two times a day. 07/23/2020 Active levOCARNitine 330 mg oral tablet (16 sources) Carnitine Analog Start: 10-15-2023 End: 01-01-2025 take 1 tablet by mouth three times daily at mealtime Levocarnitine 330 mg tablet Discontinued 660 mg PO THREE TIMES A DAY 540 September 30, 2024 9:17am January 01, 2025 8:50am must administer with a meal/food LORazepam 1 mg oral tablet (12 sources) Benzodiazepine Start: 06-27-2014 End: 06-29-2014 Lorazepam 1 MG tablet Discontinued 1 mg PO THREE TIMES A DAY 50 June 27, 2014 1:00am June 29, 2014 6:24pm 1 mg by mouth 3 times a day for 5 days, followed by an milligram by mouth twice a day 5 days, followed by 0.5 mg by mouth twice a day 5 days, then discontinued. Administer 1 mg by mouth 3 times a day as needed for agitation, anxiety. omeprazole 40 mg delayed release oral capsule (20 sources) Proton Pump Inhibitor Start: 07-05-2021 End: 09-24-2023 take 1 capsule by mouth once daily 30 minutes before breakfast Omeprazole 40 mg capsule,delayed release(DR/EC) Discontinued 40 mg PO DAILY 60 September 10, 2023 5:50pm September 24, 2023 5:53pm Take 30 minutes before breakfast pantoprazole 40 mg delayed release oral tablet (20 sources) Proton Pump Inhibitor Start: 12-18-2019 End: 01-17-2020 take 1 tablet by mouth twice daily Pantoprazole 40 MG tablet Discontinued 40 mg PO TWICE A DAY 60 December 18, 2019 12:00am January 16, 2020 12:00am January 17, 2020 12:02am Start: 10-10-2017 End: 10-13-2017 take 1 tablet by mouth once daily Pantoprazole 40 MG tablet Discontinued 40 mg PO DAILY October 10, 2017 1:00am October 13, 2017 9:51am PHENobarbital 97.2 mg oral tablet (12 sources) Start: 12-13-2013 End: 06-27-2014 take 1 tablet by mouth once daily Phenobarbital 97.2 MG tablet Discontinued 97.2 mg PO DAILY 7 December 13, 2013 12:00am June 27, 2014 10:13am QUEtiapine 25 mg oral tablet (20 sources) Atypical Antipsychotic Start: 06-22-2020 End: 04-09-2024 take 1 tablet by mouth once daily Quetiapine 25 mg tablet Discontinued 25 mg PO DAILY April 05, 2021 12:00am October 02, 2022 11:14am On Hold: Order Changed raNITIdine 150 mg oral tablet (12 sources) Histamine-2 Receptor Antagonist Start: 09-14-2013 End: 06-27-2014 take 1 tablet by mouth once daily Ranitidine (Zantac) 150 MG tablet Discontinued 150 mg PO DAILY September 14, 2013 1:00am June 27, 2014 10:13am rifAXIMin 550 mg oral tablet (6 sources) Rifamycin Antibacterial Start: 09-25-2023 End: 01-08-2024 take 1 tablet by mouth twice daily Rifaximin 550 mg tablet Discontinued 550 mg PO TWICE A DAY 60 September 25, 2023 1:00am January 08, 2024 3:43am rizatriptan 10 mg oral tablet (12 sources) Serotonin-1b and Serotonin-1d Receptor Agonist Start: 10-26-2021 End: 05-31-2023 Rizatriptan 10 mg tablet Discontinued 10 mg PO October 26, 2021 1:00am May 31, 2023 9:46am sertraline 100 mg oral tablet (20 sources) Serotonin Reuptake Inhibitor Start: 11-24-2020 End: 10-02-2022 take 2 tablets by mouth once daily Sertraline 100 mg tablet Discontinued 200 mg PO DAILY 180 January 23, 2022 3:49pm October 02, 2022 11:14am Start: 11-24-2020 End: 10-02-2022 take 200 mg by mouth once daily Sertraline Discontinue d 200 MG PO DAILY 180 January 23, 2022 3:49pm October 02, 2022 11:14am Start: 08-25-2020 End: 11-24-2020 take 1 tablet by mouth once daily Sertraline 100 mg tablet Discontinued 100 mg PO DAILY 90 August 25, 2020 12:28pm November 24, 2020 9:20am Start: 06-22-2020 End: 04-09-2024 take 1 tablet by mouth once daily Sertraline 50 MG tablet Discontinued 50 mg PO DAILY July 22, 2020 3:08pm July 27, 2020 6:24pm SUMAtriptan 100 mg oral tablet (16 sources) Serotonin-1b and Serotonin-1d Receptor Agonist Start: 01-04-2021 End: 05-31-2023 take 1 tablet by mouth every two hours Sumatriptan Succinate 100 mg tablet Discontinued 0 PO .COMPLEX January 04, 2021 12:00am May 31, 2023 9:47am take 1 tab at onset of headache; if no relief, may repeat 1 tab after at least 2 hrs; max = 2 tabs/24 hrs PO traZODone hydrochloride 50 mg oral tablet (12 sources) Serotonin Reuptake Inhibitor Start: 06-22-2020 End: 06-22-2020 take 1 tablet by mouth at bedtime as needed Trazodone 50 mg tablet Discontinued 50 mg PO AT BEDTIME as needed June 22, 2020 1:00am June 22, 2020 3:46pm divalproex sodium 500 mg delayed release oral tablet (20 sources) Mood Stabilizer, Anti-epileptic Agent Start: 04-07-2024 take 2 tablets by mouth twice daily divalproex DR (DEPAKOTE) 500 mg EC tablet Take 1,000 mg by mouth two times a day. 04/07/2024 Active Start: 10-26-2021 End: 05-31-2023 take 1 tablet by mouth twice daily Divalproex 250 mg tablet,delayed release (DR/EC) Discontinued 250 mg PO TWICE A DAY October 26, 2021 1:00am May 31, 2023 9:48am Start: 10-26-2021 End: 01-01-2025 take 1 tablet by mouth twice daily Divalproex 500 mg tablet,delayed release (DR/EC) Discontinued 500 mg PO TWICE A DAY September 30, 2024 9:17am January 01, 2025 8:50am Start: 06-27-2014 End: 06-29-2014 take 2 capsules by mouth twice daily Valproic Acid 250 MG capsule Discontinued 500 mg PO TWICE A DAY June 27, 2014 1:00am June 29, 2014 6:25pm Start: 06-27-2014 End: 06-29-2014 take 500 mg by mouth twice daily Valproic Acid Discontinued 500 MG PO TWICE A DAY June 27, 2014 1:00am June 29, 2014 6:25pm 24 hr verapamil hydrochloride 120 mg extended release oral capsule (12 sources) Calcium Channel Alicia Start: 04-05-2021 End: 05-28-2023 take 1 capsule by mouth once daily Verapamil 120 mg capsule,ext rel. pellets 24 hr Discontinued 180 mg PO DAILY April 05, 2021 12:00am May 28, 2023 9:47am zonisamide 100 mg oral capsule (20 sources) Anti-epileptic Agent Start: 05-31-2023 End: 10-15-2023 take 300 mg by mouth at bedtime Zonisamide Active 300 MG PO AT BEDTIME October 15, 2023 9:38am Start: 02-21-2022 take 3 capsules by m outh at bedtime Zonisamide 100 MG Oral Capsule TAKE 3 CAPSULES AT BEDTIME Quantity: 270 Refills: 2 Ordered: 21-Feb-2022 Alvin Tyler MD Start : 21-Feb-2022 Active Start: 04-05-2021 End: 02-04-2024 take 1 capsule by mouth at bedtime Zonisamide 100 mg capsule Discontinued 300 mg PO AT BEDTIME 90 October 15, 2023 9:38am February 04, 2024 9:22am Start: 04-05-2021 End: 05-28-2023 take 200 mg by mouth at bedtime Zonisamide Discontinue d 200 MG PO AT BEDTIME April 05, 2021 12:00am May 28, 2023 9:48am Problems Active Problems Problem Classification Problem Date Documented Da te Episodic/Chronic Abdominal pain (20 sources) Right lower quadrant pain; Translations: [Right lower quadrant pain] Onset: 7 Episodic Acute cerebrovascular disease (20 sources) Hemorrhage into subarachnoid space of neuraxis; Translations: [Nontraumatic subarachnoid hemorrhage, unspecified] Onset: 9 01-27-2021 Chronic Alcohol-related disorders (20 sources) Alcohol abuse; Translations: [Alcohol abuse, uncomplicated] Onset: 0 Resolved: 9 01-27-2021 Chronic Anxiety disorders (20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 Status: A DM IN Ordering Dr: Karl Duenas DO Date: 06/14/24 Location: NE3 Sex: M C Admitted: 06/14/24 Test Reason : ETOH INTOX Blood Pressure : / mmHG Vent. Rate : 099 BPM Atrial Rate : 099 BPM P-R Int : 136 ms QRS Dur : 082 ms QT Int : 332 ms P-R-T Axes : 064 061 070 degrees QTc Int : 426 ms Normal sinus rhythm Normal ECG Confirmed by YOUNG BONNER, NII ([id number]), online editor ANGIE ZHAO ([id number]) on 06/16/2024 9:38:07 AM Referred By: WILFRED Confirmed By:NII JORDAN MD 06/16/2438 Date Nii Jordan MD CC: Dr. Vasu Blackwell MD; Dr. Reza Price DO; Dr. Karl Duenas DO Signed Normal [facility] Alcohol, Blood (Medical)-Ser umon 06-14-2024 SERUM ETOH 189.0 mg/dL Normal [facility] Comment on above: Result Comment: The serum:whole blood ethanol ratio is approximately 1.14 and varies slightly with hematocrit. Medical Alcohol reference interval and critical value in non-tolerant individuals; 50 - 100 Impairment 100 Intoxication 100 - 250 Severe Poisoning 250 - 400 Deep/possible fatal coma Performed By: #### L 500.4050, L501.9100, L100.0100, L501.2450, L505.5000 #### [facility] [address] [place], [address] CBC W/Diff, Automatedon - Absolute Lymph 2.38 X10 3/uL Normal 0.83-4.51 [facility] Comment on above: Performed By: #### L 500.4050, L501.9100, L100.0100, L501.2450, L505.5000 #### [facility] [address] [place], [address] Absolute Neut 4.1 X10 3/uL Normal 2.0-7.7 [facility] Comment on above: Performed By: #### L 500.4050, L501.9100, L100.0100, L501.2450, L505.5000 #### [facility] [address] [place], [address] Basophils/100 WBC (Bld) 0.9 % Normal 0-1 [facility] Comment on above: Performed By: #### L 500.4050, L501.9100, L100.0100, L501.2450, L505.5000 #### [facility] [address] [place], [address] Eosinophils/100 WBC (Bld) 6.5 % High 0-5 [facility] Comment on above: Performed By: #### L 500.4050, L501.9100, L100.0100, L501.2450, L505.5000 #### [facility] [address] [place], [address] Erythrocyte distribution width (RBC) [Ratio] 12.9 % Normal 11.6-14.6 [facility] Comment on above: Performed By: #### L 500.4050, L501.9100, L100.0100, L501.2450, L505.5000 #### [facility] [address] [place], [address] Hematocrit (Bld) [Volume fraction] 45.2 % Normal 40-54 [facility] Comment on above: Performed By: #### L 500.4050, L501.9100, L100.0100, L501.2450, L505.5000 #### [facility] [address] [place], [address] Hemoglobin (Bld) [Mass/Vol] 15.9 g/dL Normal 13.0-16.5 [facility] Comment on above: Performed By: #### L 500.4050, L501.9100, L100.0100, L501.2450, L505.5000 #### [facility] [address] [place], [address] IG% 0.300 Normal 0.0-0.9 [facility] Comment on above: Result Comment: IG% - Immature Granulocytes (promyelocytes, myelocytes and metamyelocytes) > 1% indicates that a LEFT SHIFT is Present. Performed By: #### L 500.4050, L501.9100, L100.0100, L501.2450, L505.5000 #### [facility] [address] [place], [address] Lymphocytes/100 WBC (Bld) 31.6 % Normal 19-41 [facility] Comment on above: Performed By: #### L 500.4050, L501.9100, L100.0100, L501.2450, L505.5000 #### [facility] [address] [place], [address] MCH (RBC) [Entitic mass] 34.6 pg High 27.0-32.0 [facility] Comment on above: Performed By: #### L 500.4050, L501.9100, L100.0100, L501.2450, L505.5000 #### [facility] [address] [place], [address] MCHC (RBC) [Mass/Vol] 35.2 g/dL Normal 32-36 [facility] Comment on above: Performed By: #### L 500.4050, L501.9100, L100.0100, L501.2450, L505.5000 #### [facility] [address] [place], [address] MCV (RBC) [Entitic vol] 98.3 fL High 80-94 [facility] Comment on above: Performed By: #### L 500.4050, L501.9100, L100.0100, L501.2450, L505.5000 #### [facility] [address] [place], [address] Monocytes/100 WBC (Bld) 6.8 % Normal 0-10 [facility] Comment on above: Performed By: #### L 500.4050, L501.9100, L100.0100, L501.2450, L505.5000 #### [facility] [address] [place], [address] Neutrophils/100 WBC (Bld) 53.9 % Normal 47-70 [facility] Comment on above: Performed By: #### L 500.4050, L501.9100, L100.0100, L501.2450, L505.5000 #### [facility] [address] [place], [address] Nucleated RBC (Bld) [#/Vol] 0 10*3/uL Normal 0-5 [facility] Comment on above: Performed By: #### L 500.4050, L501.9100, L100.0100, L501.2450, L505.5000 #### [facility] [address] [place], [address] Platelet mean volume (Bld) [Entitic vol] 9.0 fL Normal 6.2-12.0 [facility] Comment on above: Performed By: #### L 500.4050, L501.9100, L100.0100, L501.2450, L505.5000 #### [facility] [address] [place], [address] Platelets (Bld) [#/Vol] 236 10*3/uL Normal 150-450 [facility] Comment on above: Performed By: #### L 500.4050, L501.9100, L100.0100, L501.2450, L505.5000 #### [facility] [address] [place], [address] RBC (Bld) [#/Vol] 4.60 10*6/uL Normal 4.6-6.2 [facility] Comment on above: Performed By: #### L 500.4050, L501.9100, L100.0100, L501.2450, L505.5000 #### [facility] [address] [place], [address] RDW SD 46.1 fl High 35.1-43.9 [facility] Comment on above: Performed By: #### L 500.4050, L501.9100, L100.0100, L501.2450, L505.5000 #### [facility] [address] [place], [address] WBC (Bld) [#/Vol] 7.5 10*3/uL Normal 4.4-11.0 [facility] Comment on above: Performed By: #### L 500.4050, L501.9100, L100.0100, L501.2450, L505.5000 #### [facility] [address] [place], [address] Comprehensive Metabolic [facility] 06-14-2024 Albumin [Mass/Vol] 3.5 g/dL Normal 3.2-5.0 [facility] Comment on above: Performed By: #### L 500.4050, L501.9100, L100.0100, L501.2450, L505.5000 #### [facility] [address] [place], [address] Albumin/Globulin [Mass ratio] 1.0 {ratio} Normal 0.9-2.4 [facility] Comment on above: Performed By: #### L 500.4050, L501.9100, L100.0100, L501.2450, L505.5000 #### [facility] [address] [place], [address] ALK P 407 U/L High 45-117 [facility] Comment on above: Performed By: #### L 500.4050, L501.9100, L100.0100, L501.2450, L505.5000 #### [facility] [address] [place], [address] ALT [Catalytic activity/Vol] 131 U/L High 16-61 [facility] Comment on above: Performed By: #### L 500.4050, L501.9100, L100.0100, L501.2450, L505.5000 #### [facility] [address] [place], [address] AST [Catalytic activity/Vol] 146 U/L High 15-37 [facility] Comment on above: Result Comment: Slig ht Hemolysis, Result may be falsely increased. Performed By: #### L 500.4050, L501.9100, L100.0100, L501.2450, L505.5000 #### [facility] [address] [place], [address] Bilirubin [Mass/Vol] 0.60 mg/dL Normal 0.20-1.00 [facility] Comment on above: Result Comment: For patients on eltrombopag therapy, use of Dimension [place] TBIL is not recommended. Performed By: #### L 500.4050, L501.9100, L100.0100, L501.2450, L505.5000 #### [facility] [address] [place], [address] BUN/CRE 7.7 RATIO Low 10-20 [facility] Comment on above: Performed By: #### L 500.4050, L501.9100, L100.0100, L501.2450, L505.5000 #### [facility] [address] [place], [address] CA,Total 8.6 mg/dL Normal 8.5-10.1 [facility] Comment on above: Performed By: #### L 500.4050, L501.9100, L100.0100, L501.2450, L505.5000 #### [facility] [address] [place], [address] Chloride [Moles/Vol] 96 mmol/L Low 98-107 [facility] Comment on above: Performed By: #### L 500.4050, L501.9100, L100.0100, L501.2450, L505.5000 #### [facility] [address] [place], [address] CO2 [Moles/Vol] 24.0 mmol/L Normal 21.0-32.0 [facility] Comment on above: Performed By: #### L 500.4050, L501.9100, L100.0100, L501.2450, L505.5000 #### [facility] [address] [place], [address] Creatinine [Mass/Vol] 0.65 mg/dL Low 0.70-1.30 [facility] Comment on above: Result Comment: The validity of the calculated GFR GFRAA in patients over 70 years has not been determined. Clinical correlation is essential. Performed By: #### L 500.4050, L501.9100, L100.0100, L501.2450, L505.5000 #### [facility] [address] [place], [address] EST GFR - AA 165 mL/min Normal >60 [facility] Comment on above: Result Comment: Afri can [place] GFR Calc Performed By: #### L 500.4050, L501.9100, L100.0100, L501.2450, L505.5000 #### [facility] [address] [place], [address] GAP 13 Normal 5-15 [facility] Comment on above: Performed By: #### L 500.4050, L501.9100, L100.0100, L501.2450, L505.5000 #### [facility] [address] [place], [address] GFR/1.73 sq M.predicted among non-blacks MDRD (S/P/Bld) [Vol rate/Area] 137 mL/min/{1.73_m2} Normal >60 [facility] Comment on above: Result Comment: Non- GFR Calc Performed By: #### L 500.4050, L501.9100, L100.0100, L501.2450, L505.5000 #### [facility] [address] [place], [address] Globulin (S) [Mass/Vol] 3.5 g/dL Normal 2.2-4.2 [facility] Comment on above: Performed By: #### L 500.4050, L501.9100, L100.0100, L501.2450, L505.5000 #### [facility] [address] [place], [address] Glucose [Mass/Vol] 96 mg/dL Normal 74-106 [facility] Comment on above: Performed By: #### L 500.4050, L501.9100, L100.0100, L501.2450, L505.5000 #### [facility] [address] [place], [address] Potassium [Moles/Vol] 4.1 mmol/L Normal 3.5-5.1 [facility] Comment on above: Result Comment: Slig ht Hemolysis, Result may be falsely increased. Performed By: #### L 500.4050, L501.9100, L100.0100, L501.2450, L505.5000 #### [facility] [address] [place], [address] Sodium [Moles/Vol] 133 mmol/L Low 136-145 [facility] Comment on above: Performed By: #### L 500.4050, L501.9100, L100.0100, L501.2450, L505.5000 #### [facility] [address] [place], [address] T PROT 7.0 g/dL Normal 6.4-8.2 [facility] Comment on above: Performed By: #### L 500.4050, L501.9100, L100.0100, L501.2450, L505.5000 #### [facility] [address] [place], [address] Urea nitrogen [Mass/Vol] 5 mg/dL Low 7-18 [facility] Comment on above: Performed By: #### L 500.4050, L501.9100, L100.0100, L501.2450, L505.5000 #### [facility] [address] [place], [address] Emergency Department Summary on 06-14-2024 Emergency Department Summary [facility] Medical Records Department [address] [place] [address] Emergency Department Summary 06/14/24 MR#: [id number] Acct: [id number] Name: JERMAN POON Rep #: [id number] : 1970 54 From: Karl Duenas DO PCP: Dr. Vasu Blackwell MD Status:REG ER Location: ED HPI History of Present Illness Chief Complaint: ETOH Intox PFSH PFSH Medical History Alcohol dependence Epilepsy History of traumatic brain injury Alcoholic liver disease Elevated liver enzymes Chronic diarrhea Blood glucose elevated Preventative health care Nausea RLQ abdominal pain Health care maintenance Colon cancer screening Seizure Chronic headaches History of alcohol abuse Seasonal allergies Arthritis Back pain GI problem Hearing problem History of pneumonia Vision problem History of skull fracture Home Medications ???Medication ???Instructions ???Recorded ???Last Taken ???Type omeprazole 40 mg capsule,delayed 40 mg PO DAILY #90 caps 09/24/23 Unknown Rx release loperamide 2 mg capsule 2 mg PO Q4H PRN PRN Loose Stools 01/11/24 Unknown Rx #0 caps cenobamate 200 mg tablet (Xcopri) 200 mg PO DAILY #30 tabs 02/04/24 Unknown Rx divalproex 500 mg tablet,delayed 500 mg PO BID #60 tabs 02/04/24 Unknown Rx release folic acid 1 mg tablet 1 mg PO DAILY@0800 30 days #30 tabs 06/17/24 Unknown Rx levetiracetam 750 mg tablet 1,500 mg (2 x 750 mg) PO BID #120 02/04/24 Unknown Rx tabs levocarnitine 330 mg tablet 330 mg PO TID #90 tabs 02/04/24 Unknown Rx amlodipine 5 mg tablet See Rx Instructions .Route 03/26/24 Unknown Rx .COMPLEX #90 tabs escitalopram oxalate 10 mg tablet 10 mg PO DAILY #90 tabs 03/26/24 Unknown Rx (Lexapro) albuterol sulfate 90 mcg/actuation See Rx Instructions .Route 03/31/24 Unknown Rx aerosol inhaler .COMPLEX #8.5 grams Allergy/AdvReac Type Severity Reaction Status Date / Time codeine Allergy Intermediate NIGHTMARES Verified 06/14/24 19:11 hydrocodone bitartrate (From AdvReac Intermediate Other Verified 06/14/24 19:11 Vicodin) Family History Mother Suicide Depression Arthritis Anxiety Father Suicide Alcoholism Grandfather Alcoholism Surgical History History of cholecystectomy History of facial surgery H/O shoulder surgery Social History household members: friend(s) housing: apartment Smoking Status: Current every day smoker tobacco type: cigarettes alcohol intake: current alcohol intake frequency: a few times a week substance use type: does not use EXAM Physical Exam Const Vital Signs: 06/14/24 19:11 Temperature 97.6 F L Temperature Source Oral Pulse Rate 101 H Respiratory Rate 18 Blood Pressure 135/95 H Blood Pressure Mean 108 Pulse Ox 98 Oxygen Delivery Method Room Air MDM MDM MDM Narrative Medical decision making narrative: HISTORY OF PRESENT ILLNESS: 54-year-old male presents requesting detox of alcohol. Notes he drank one half bottle of liquor and 2 beers today. Notes his last p.o. just before squad arrived. Notes he was here roughly 5 months ago for similar. States he drinks on most days approximate 4 to 5 days a week. Notes he typically drinks beer. Notes he roughly drinks approximately 2 beers per day. Over the last 1 to 2 weeks he is drink more more consistent with his level of drinking from today. He notes nausea some shakiness and cramping in his abdomen. REVIEW OF SYSTEMS: Pertinent positives: Nausea, cramping Pertinent negatives: Fever, chest pain, focal weakness PHYSICAL EXAM: Nursing triage notes reviewed, Vital signs reviewed Constitutional: please see mdm HENT: MMM Eyes: Pupils equal round and reactive to light, Extraocular muscles intact Neck: No stridor, no JVD, full neck ROM Lungs: Clear to auscultation, No wheezing or rales. No increased work of breathing, no conversational dyspnea, no accessory muscle use, no nasal flaring. No respiratory distress noted Heart: Regular rate and rhythm, No murmurs, No rubs and No gallops, 2+ distal pulses (radial, femoral, posterior tibial) in all extremities Abdomen: Soft, there is no tenderness, rigidity, rebound or guarding, no obvious peritoneal signs, no palpable pulsatile abdominal masses, no auscultated abdominal bruit : No CVAT Extremities: No edema Neuro: No focal neurological deficits, cranial nerves II through XII intact, 5/5 strength in all extremities. Intact sensation to light touch in all extremities, 2+ reflexes bilateral patella tendons. Normal gait. No ataxia. Skin: No rash or lesions noted MEDIC (more content not included)... Normal [facility]P Exam - Hospitalist [facility] Medical Records Department [address] [place] [id number] H P Exam - Hospitalist 06/14/242041 MR#: [id number] Acct: [id number] Name: JERMAN POON [facility]LY [facility] Rep #: [id number] : 1970 54 From: Davy Douglass DO PCP: Dr. Vasu Blackwell MD Status:ADM IN Location: NE3 [id number] [facility] - General General Date of Admission: 06/14/24 Date of Service: 06/14/24 Chief Complaint: Wants Help with EtOH Detox. HPI Narrative JERMAN POON, is a 54 M with a past medical history of essential hypertension, chronic EtOH abuse; with multiple shots of whiskey and 2 beers daily, history of EtOH hepatitis; with hyperammonemia and chronically elevated LFT's on levocarnitine, history of EtOH pancreatitis; with chronic watery diarrhea followed by Dr. Bloom of gastroenterology, history of TBI; with skull fracture, seizure disorder; on cenobamate, divalproex and levetriacetam, chronic headaches; with brain fog / episodes of confusion, history of tobacco abuse; with subsequent COPD, history of facial surgery, history of cholecystectomy, history of shoulder surgery, depression with anxiety, OA; with back pain, GERD and recent admission here from January 08, 2024 to January 11, 2024 for who presents to [facility] ER complaining of once again wanting help with EtOH detoxification. Mr. Poon reports his symptoms began approximately 1-2 weeks prior to admission when he increased his EtOH intake. Then earlier today he also experienced shakiness, nausea and cramping in his abdomen with continued watery stools 4-5 x / day that he treats with imodium which then causes constipation. He denies associated fever, chills, vomiting, chest pain, SOB, headache, hallucinations, seizure activity, focal neurologic weakness or illicit drug use but his UDS this admission was positive for cannabis. In the ER he was noted to have a MINGO of 189 mg/dL complicated by early evidence of acute EtOH withdrawal in the setting of chronic and recalcitrant EtOH abuse and he was then admitted to the general medical floor for ongoing care for a stay that is expected to extend beyond 2 midnights. [facility] Medical History (Updated 06/15/24 @ 03:[address] aDvy Douglass, DO) Depression Smoker Hypertension Alcohol dependence Alcoholic liver disease Elevated liver enzymes Chronic diarrhea Epilepsy History of traumatic brain injury Blood glucose elevated Preventative health care Nausea RLQ abdominal pain Health care maintenance Colon cancer screening Seizure Chronic headaches History of alcohol abuse Seasonal allergies Arthritis Back pain GI problem Hearing problem History of pneumonia Vision problem History of skull fracture Home Medications ???Medication ???Instructions ???Recorded ???Last Taken ???Type omeprazole 40 mg capsule,delayed 40 mg PO DAILY #90 caps 09/24/23 Unknown Rx release loperamide 2 mg capsule 2 mg PO Q4H PRN PRN Loose Stools 01/11/24 Unknown Rx #0 caps cenobamate 200 mg tablet (Xcopri) 200 mg PO DAILY #30 tabs 02/04/24 Unknown Rx divalproex 500 mg tablet,delayed 500 mg PO BID #60 tabs 02/04/24 Unknown Rx release folic acid 1 mg tablet 1 mg PO DAILY@0800 30 days #30 tabs 02/04/24 Unknown Rx levetiracetam 750 mg tablet 1,500 mg (2 x 750 mg) PO BID #120 02/04/24 Unknown Rx tabs levocarnitine 330 mg tablet 330 mg PO TID #90 tabs 02/04/24 Unknown Rx amlodipine 5 mg tablet See Rx Instructions .Route 03/26/24 Unknown Rx .COMPLEX #90 tabs escitalopram oxalate 10 mg tablet 10 mg PO DAILY #90 tabs 03/26/24 Unknown Rx (Lexapro) albuterol sulfate 90 mcg/actuation See Rx Instructions .Route 03/31/24 Unknown Rx aerosol inhaler .COMPLEX #8.5 grams atorvastatin 20 mg tablet 20 mg PO DAILY cholesterol 06/14/24 Unknown History thiamine HCl (vitamin B1) 100 mg 100 mg PO DAILY 06/14/24 Unknown History tablet Allergy/AdvReac Type Severity Reaction Status Date / Time codeine Allergy Intermediate NIGHTMARES Verified 06/14/24 19:11 hydrocodone bitartrate (From AdvReac Intermediate Other Verified 06/14/24 19:11 Vicodin) Family History Mother Suicide Depression Arthritis Anxiety Father Suicide Alcoholism Grandfather Alcoholism Surgical History History of cholecystectomy History of facial surgery H/O shoulder surgery Social History household members: friend(s) housing: apartment Smoking Status: Current every day smoker tobacco type: cigarettes alcohol intake: current alcohol intake frequency: a few times a week substance use type: does not use ROS ROS Narrative Review of Systems: Constitutional: Patient denies fever or chills. Eyes: Pa (more content not included)... Normal [facility] Lipaseon 06-14-2024 Lipase [Catalytic activity/Vol] 18 U/L Normal 13-75 [facility] Comment on above: Result Comment: Arturo charlton note: LIPASE revised reference range effective 22. New Lipase methodology. Expected to produce lower values than the previous assay method. NEW Reference Range: 13 - 75 U/L Performed By: #### L 500.4050, L501.9100, L100.0100, L501.2450, L505.5000 #### [facility] [address] [place], [place], [facility] Urine Drug Screen (VISTA)on 06-14-2024 AMPHETAMINES Negative Normal <1000 ng/mL [facility] Comment on above: Performed By: #### L 500.4050, L501.9100, L100.0100, L501.2450, L505.5000 #### [facility] [address] [place], [place], [facility] BARBITIURATES Negative Normal < 200 ng/mL [facility] Comment on above: Performed By: #### L 500.4050, L501.9100, L100.0100, L501.2450, L505.5000 #### [facility] [address] [place], [place], [facility] BENZODIAZIPINE Negative Normal < 200 ng/mL [facility] Comment on above: Performed By: #### L 500.4050, L501.9100, L100.0100, L501.2450, L505.5000 #### [facility] [address] [place], [place], [facility] COCAINE Negative Normal < 300 ng/mL [facility] Comment on above: Performed By: #### L 500.4050, L501.9100, L100.0100, L501.2450, L505.5000 #### [facility] [address] [place], [place], [facility] ECSTACY Negative Normal < 500 ng/mL [facility] Comment on above: Performed By: #### L 500.4050, L501.9100, L100.0100, L501.2450, L505.5000 #### [facility] [address] [place], [address] METHADONE Negative Normal < 300 ng/mL [facility] Comment on above: Performed By: #### L 500.4050, L501.9100, L100.0100, L501.2450, L505.5000 #### [facility] [address] [place], [address] OPIATES Negative Normal < 300 ng/mL [facility] Comment on above: Performed By: #### L 500.4050, L501.9100, L100.0100, L501.2450, L505.5000 #### [facility] [address] [place], [address] PCP Negative Normal < 25 ng/mL [facility] Comment on above: Performed By: #### L 500.4050, L501.9100, L100.0100, L501.2450, L505.5000 #### [facility] [address] [place], [address] THC Positive Abnormal < 50 ng/mL [facility] Comment on above: Performed By: #### L 500.4050, L501.9100, L100.0100, L501.2450, L505.5000 #### [facility] [address] [place], [address] VISTA UDS PH 5 Normal [facility] Comment on above: Performed By: #### L 500.4050, L501.9100, L100.0100, L501.2450, L505.5000 #### [facility] [address] [place], [address] Valproic Acid (Depakene) Lev cheyanne 06-14-2024 VALPROIC ACID 32 ug/mL Low 50-100 [facility] Comment on above: Performed By: #### L 501.8100 #### [facility] [address] [place], [address] CNPChyna 04-11-2024 CNPN Telephone (FAMPWS) RHODA POON ([id number]) 1970 M Date Time Provider Department 04/11/24 WALDO GALO FAMWS During your visit today, we recorded the following information about you: Mya Holloway MA 04/11/2024 2:04 PM Signed ----- Message from Waldo Galo MD sent at 04/11/2024 1:54 PM EDT ----- High cholesterol level. Based on age and risk factors, patient is moderate risk for heart attack or stroke in the next 10 years. Recommend moderate intensity statin daily and recheck labs in 3 months. Most common side effect: muscle aches. If agreeable, will send rx to requested pharmacy. Other labs unremarkable. The 10-year ASCVD risk score (Jannie DK, et al., 2019) is: 9.9% Values used to calculate the score: Age: 54 years Sex: Male Is Non- : No Diabetic: No Tobacco smoker: Yes Systolic Blood Pressure: 104 mmHg Is BP treated: Yes HDL Cholesterol: 44 mg/dL Total Cholesterol: 227 mg/dL Mya Holloway MA 04/11/2024 2:06 PM Signed Pt informed, verbalized understanding. [facility] [place] KATHY Pak Christopher B, MD 04/11/2024 2:13 PM Signed Rx sent for lipitor. Recheck CMP and fasting lipid panel in 3 months. Sonya Kang LPN 04/11/2024 2:43 PM Signed Patient updated. Sonya Kang LPN Allergies As of Date: 04/11/2024 Noted Allergy Reaction MORPHINE 06/03/2019 1 - Mental Status Change Comments: Patient's contact reports nightmares VICODIN (HYDROCODONE-ACETAMINOP HE*11/16/2009 1 - Mental Status Change Comments: States has bad nightmares Date Reviewed: 04/09/2024 Reviewed by: Mya Holloway MA - Fully Assessed Reason for Visit: Results [95] Primary Visit Diagnosis:Other hyperlipidemia [E78.49] Order(s):atorvastatin (LIPITOR) 20 mg tabletTake 1 tablet by mouth once daily. For cholesterol.Disp: 90 tabletRfl: 0 COMPREHENSIVE METABOLIC PANEL [SQCMP] Order #: [id number] FUTURE LIPID PANEL BASIC [SQLIPB] Order #: [id number] FUTURE Prescriptions as of 04/11/2024 - atorvastatin (LIPITOR) 20 mg tablet Take 1 tablet by mouth once daily. For cholesterol. - divalproex DR (DEPAKOTE) 500 mg EC tablet Take 1,000 mg by mouth two times a day. - XCOPRI 200 mg tablet Take 200 mg by mouth once daily. - ibuprofen (MOTRIN) 600 mg tablet Take 600 mg by mouth every 6 hours as needed. - folic acid 1 mg tablet Take 1 mg by mouth once daily. - omeprazole (PRILOSEC) 40 mg capsule Take 1 capsule by mouth every afternoon. - albuterol HFA (VENTOLIN HFA) 90 mcg/actuation inhaler Inhale 2 Puffs as instructed every 4 hours as needed. - escitalopram oxalate (LEXAPRO) 10 mg tablet Take 1 tablet by mouth every afternoon. - amLODIPine (NORVASC) 5 mg tablet Take 1 tablet by mouth every afternoon. - thiamine (VITAMIN B1) 100 mg tablet Take 1 tablet by mouth once daily. - levETIRAcetam (KEPPRA) 500 mg tablet Take 750 mg by mouth two times a day. Meds Comments as of 07/01/2014: Problem List As Of Date 04/11/2024 Noted Resolved Hypertension [I10] 12/06/2009 Depression with Anxiety [F41.8] 12/06/2009 Tobacco Use Disorder [F17.200] 12/06/2009 Personal history of alcoholism (HCC) [F10.21]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 plasma glucose results greater than or equal to 126 mg/dL meet the criteria for diagnosis of diabetes. In the absence of unequivocal hyperglycemia, results should be confirmed by repeat testing. In a patient with classic symptoms of hyperglycemia or hyperglycemic crisis, random plasma glucose results greater than or equal to 200 mg/dL meet the criteria for diagnosis of diabetes. Reference: Standards of Medical Care in Diabetes 2016, [place] Diabetes Association. Diabetes Care. 2016.39(Suppl 1). Performed By: #### 2 4323-8, GERMAIN, 3015-3 ####[facility] [id number] [place] [address] [place] Potassium [Moles/Vol] 4.0 mmol/L Normal 3.7-5.1 [facility] Comment on above: Order Comment: Eric cage Type: BLOOD SPECIMENOrdering Facility: [facility] Address: [address] [place] [address] Performed By: #### 2 4323-8, LIPNF, 3016-3 ####[facility] LABCLIA [id number] [address] [address] [place] Protein [Mass/Vol] 6.6 g/dL Normal 6.3-8.0 [facility] Comment on above: Order Comment: Speci men Type: BLOOD SPECIMENOrdering Facility: [facility] Address: [address] [place] [address] Performed By: #### 2 4323-8, LIPNF, 6-3 ####[facility] LABCLIA [id number] [place] [address] [place] Sodium [Moles/Vol] 138 mmol/L Normal 136-144 [facility] Comment on above: Order Comment: Speci men Type: BLOOD SPECIMENOrdering Facility: [facility] Address: [address] [place] [address] Performed By: #### 2 4323-8, LIPNF, 6-3 ####[facility] LABIA [id number] [place] [address] [place] Urea nitrogen [Mass/Vol] 8 mg/dL Low 9-24 [facility] Comment on above: Order Comment: Speci men Type: BLOOD SPECIMENOrdering Facility: [facility] Address: [address] [place] [address] Performed By: #### 2 4323-8, LIPNF, 6-3 ####[facility] LABIA [id number] [place] [id number] [place] ETHANOL/ALCOHOLon 04-09-2024 Ethanol [Mass/Vol] mg/dL NINF - 11 mg/dL [facility] Ethanol SerPl-mCncon 024 Ethanol [Mass/Vol] mg/dL Normal <11 [facility] Comment on above: Order Comment: Speci men Type: BLOOD SPECIMENOrdering Facility: [facility] Address: [address] [place] [address] Performed By: #### 5 643-2 ####[facility] LABCLIA [id number] [place] [address] [place] Ethanol [Mass/Vol]on 024 Interpretation and review of laboratory results Normal [facility] LIPID PANEL, NONFASTINGon Cholesterol [Mass/Vol] 227 mg/dL High <200 [facility] Comment on above: Order Comment: Speci men Type: BLOOD SPECIMENOrdering Facility: [facility] Address: [address] [place] [address] Result Comment: <200 mg/dL, Desirable 200-239 mg/dL, Borderline high >239 mg/dL, High Performed By: #### 2 4323-8, LIPNF, 6-3 ####[facility] LABIA [id number] [place] [address] [place] HDL CHOLESTEROL, NF 44 mg/dL Normal >[address] [facility] Comment on above: Order Comment: Speci men Type: BLOOD SPECIMENOrdering Facility: [facility] Address: [address] [place] [address] Result Comment: 40-5 9 mg/dL, Acceptable >59 mg/dL, High: Negative risk factor for coronary heart disease <40 mg/dL, Low: Positive risk factor for coronary heart disease Performed By: #### 2 4323-8, LIPNF, 6-3 ####[facility] LABCLIA [id number] [place] [address] [place] LDL CHOLESTEROL, NF Normal [facility] Comment on above: Order Comment: Speci men Type: BLOOD SPECIMENOrdering Facility: [facility] Address: [address] [place] [address] Result Comment: Unab le to calculate due to increased Triglycerides. A Direct LDL Cholesterol measurement will not be performed. If clinically indicated, a fasting Basic Lipid Panel (LIPB) may be ordered. Performed By: #### 2 4323-8, LIPNF, 3016-3 ####[facility] LABCLIA [id number] [place] [address] [place] LDL/HDL RATIO, NF Normal [facility] Comment on above: Order Comment: Speci men Type: BLOOD SPECIMENOrdering Facility: [facility] Address: [address] [place] [address] Result Comment: Unab le to calculate due to elevated Triglycerides. Reference: 1. National Cholesterol Education Program ATP III Guideline At-A-Glance Quick Desk Reference: National Heart, Lung, and Blood [place]. National Institutes of Health. 2001: NIH Publication No. 01-3305. 2. An International Atherosclerosis Society position paper: global recommendations for the management of dyslipidemia: executive summary, Atherosclerosis. 2014: 232(2):410-413. Performed By: #### 2 4323-8, LIPNF, 3015-3 ####[facility] LABCLIA [id number] [place] [address] [place] NON HDL CHOL, NF 183 mg/dL High <130 [facility] Comment on above: Order Comment: Speci men Type: BLOOD SPECIMENOrdering Facility: [facility] Address: [address] [place] [address] Result Comment: <130 mg/dL, Optimal 130-159 mg/dL, Near optimal/above optimal 160-189 mg/dL, Borderline high 190-219 mg/dL, High >219 mg/dL, Very high Secondary prevention optimal non HDL Cholesterol levels are recommended to be <100 mg/dL Performed By: #### 2 4323-8, LIPNF, 3015-3 ####[facility] LABIA [id number] [place] [address] [place] T CHOL/HDL RATIO NF 5.16 mg/dL High <5.[address] [facility] Comment on above: Order Comment: Speci men Type: BLOOD SPECIMENOrdering Facility: [facility] Address: [address] [place] [address] Performed By: #### 2 4323-8, LIPNF, 3015-3 ####[facility] LABCLIA [id number] [place] [address] [place] TRIGLYCERIDES, NF 633 mg/dL High <150 [facility] Comment on above: Order Comment: Speci men Type: BLOOD SPECIMENOrdering Facility: [facility] Address: [address] [place] [address] Result Comment: <150 mg/dL, Normal 150-199 mg/dL, Borderline high 200-499 mg/dL, High >499 mg/dL, Very high Performed By: #### 2 4323-8, LIPNF, 3016-3 ####[facility] LABCLIA [id number] [place] [address] [place] VLDL CHOLESTEROL, NF Normal [facility] Comment on above: Order Comment: Speci men Type: BLOOD SPECIMENOrdering Facility: [facility] Address: [address] [place] [address] Result Comment: Unab le to calculate due to elevated Triglycerides. Performed By: #### 2 4323-8, LIPNF, 3016-3 ####[facility] LABCLIA [id number] [place] [address] [place] TSH SerPl-aCncon 04-09-2024 TSH Qn 1.370 m[IU]/L Normal 0.270-4.200 [facility] Comment on above: Order Comment: Speci men Type: BLOOD SPECIMENOrdering Facility: [facility] Address: [address] [place] [address] Performed By: #### 2 4323-8, LIPNF, 3016-3 ####[facility] LABCLIA [id number] [place] [address] [place] VITAMIN B1 (THIAMINE), WHOLE BLOODon 04-09-2024 Thiamine (Bld) [Moles/Vol] 179.7 nmol/L Normal 84.3-213.3 [facility] Comment on above: Order Comment: Speci men Type: BLOOD SPECIMENOrdering Facility: [facility] Address: [address] [place] [address] Result Comment: This assay measures the concentration of thiamine diphosphate (TDP), the primary active form of vitamin B1. Approximately 90 percent of vitamin B1 present in whole blood is TDP. Thiamine and thiamine monophosphate, which comprise the remaining 10 percent, are not measured. This test was developed and its performance characteristics determined by [facility]'s [facility] [place] ([facility]). It has not been cleared or approved by the FDA. [facility] is regulated under CLIA as qualified to perform high-complexity testing. This test is used for clinical purposes. It should not be regarded as investigational or for research. Performed By: #### B 1WB ####[facility] LABCLIA [id number] [facility] [id number] [id number] [place] Gastroenterology Visit Repor ton 03-07-2024 Gastroenterology Visit Report [facility] [address] [place] [address] OFFICE VISIT Date of Service: 03/07/24 MR#: [id number] Acct: [id number] Name: JERMAN POON Rep #: [id number] : 1970 Provider: Dr. Tera alvarez MD Age/Sex: 53/M Location: [facility] [place] Status: Signed Intake Vital Signs 02/04/24 08:00 03/07/24 08:34 Height 5 ft 10 in 5 ft 10 in Weight: 191 lb 13 oz 200 lb BMI 27.5 28.7 BP 128/90 H 132/87 H Blood Pressure Location Lt brachial Rt brachial Position Sitting Sitting Respiration 17 Pulse 81 69 Pulse Source Monitor Temp 98.2 F Temp Source Temporal Pulse Oximetry (%) 98 94 Oxygen Delivery Method room air room air Intake Visit Reasons: Liver Issues Chief Complaint: Allergies codeine Allergy (Intermediate, Verified 03/07/24 08:43) NIGHTMARES hydrocodone bitartrate (From Vicodin) Adverse Reaction (Intermediate, Verified 03/07/24 08:43) Other Medications ???Medication ???Instructions ???Recorded ???Confirmed ???Type omeprazole 40 mg capsule,delayed 40 mg PO DAILY #90 caps 09/24/23 03/07/24 Rx release loperamide 2 mg capsule 2 mg PO Q4H PRN PRN Loose Stools 01/11/24 03/07/24 Rx #0 caps amlodipine 5 mg tablet See Rx Instructions .Route 01/18/24 03/07/24 Rx .COMPLEX #90 tabs escitalopram oxalate 10 mg tablet 10 mg PO DAILY #30 tabs 01/18/24 03/07/24 Rx (Lexapro) cenobamate 200 mg tablet (Xcopri) 200 mg PO DAILY #30 tabs 02/04/24 03/07/24 Rx divalproex 500 mg tablet,delayed 500 mg PO BID #60 tabs 02/04/24 03/07/24 Rx release folic acid 1 mg tablet 1 mg PO DAILY@0800 30 days #30 tabs 02/04/24 03/07/24 Rx levetiracetam 750 mg tablet 1,500 mg (2 x 750 mg) PO BID #120 02/04/24 03/07/24 Rx tabs levocarnitine 330 mg tablet 330 mg PO TID #90 tabs 02/04/24 03/07/24 Rx Have you fallen in the past year?: No PFSH Medical History Alcohol dependence Epilepsy History of traumatic brain injury Alcoholic liver disease Elevated liver enzymes Chronic diarrhea Blood glucose elevated Preventative health care Nausea RLQ abdominal pain Health care maintenance Colon cancer screening Seizure Chronic headaches History of alcohol abuse Seasonal allergies Arthritis Back pain GI problem Hearing problem History of pneumonia Vision problem History of skull fracture Surgical History History of cholecystectomy History of facial surgery H/O shoulder surgery Family History Mother Suicide Depression Arthritis Anxiety Father Suicide Alcoholism Grandfather Alcoholism Social History household members: friend(s) housing: apartment Smoking Status: Current every day smoker tobacco type: cigarettes alcohol intake: current alcohol intake frequency: a few times a week substance use type: does not use HPI HPI Chief Complaint: Details: JERMAN POON, is a 53 M who presents to the office today for initial consult. PCP referred for alcoholic liver disease. Pt states he was referred to GI for his diarrhea. He says he had his liver checked recently and it was fine. Reports diarrhea started 4-5 months ago. Average 3-4 times/day. Consistency, watery,, no blood or mucus. Stool testing at that time was negative for infection. Has several loose bowel movements a day. Takes Imodium which helps but then will have constipation. Denies abdominal pain, cramping or bloating. Reports he currently drinks alcohol a few times a week. Intermittent episodes of confusion/ brain-fog. Denies swelling and itching. ROS Const Constitutional: Positive for fatigue; No fever(s) or weight change ENT ENT: No difficulty swallowing Resp Respiratory: No shortness of breath or wheezing Cardio Cardiology: No chest pain at rest or dyspnea on exertion Gastro GI: Positive for change in bowel habits, constipation and diarrhea; No abdominal pain, belching, bloating, change in stool character, coffee ground emesis, cramping, heartburn, difficulty swallowing, feeling full early, excessive flatus, incontinent of stools, Vomiting blood/hematemesis, Blood in stool, loose stools, Black,tarry stools, nausea/dyspepsia, pain with swallowing, vomiting or other Genitourinary Male: No difficulty urinating or burning urination Musc Musculoskeletal: No joint pain Skin Skin: No yellowing of the eye or itchy eyes Neuro Neurology: Positive for tremor(s) and seizures Psych Psychiatric: Positive for anxiety and Positive for depression Endo Endocrine: Positive for fatigue; No weight change Aller/Imm Allergy/Immunologic: No itchy eyes or wheezing Jared/Ly (more content not included)... Normal [facility] .Auto Diffon 01-07-2024 Basophil, Absolute 0.1 10 3/mcL Normal 0.0-0.2 [facility] ([place]) Comment on above: Performed By: #### A ELISA PADRON, ANEU, GFR, BMP, CBC, MG #### [address] [place], [place] [address] Basophils/100 WBC (Bld) 1.2 % Normal 0.0-2.5 [facility] ([place]) Comment on above: Performed By: #### A DIFF, MDW, ANEU, GFR, BMP, CBC, MG #### [address] [address] Eosinophil, Absolute 0.2 10 3/mcL Normal 0.0-0.4 [facility] ([place]) Comment on above: Performed By: #### A DIFF, MDW, ANEU, GFR, BMP, CBC, MG #### [address] [address] Eosinophils/100 WBC (Bld) 3.4 % Normal 0.0-7.0 [facility] ([place]) Comment on above: Performed By: #### A DIFF, MDW, ANEU, GFR, BMP, CBC, MG #### [address] [address] Lymphocyte, Absolute 1.7 10 3/mcL Normal 0.8-3.9 [facility] ([place]) Comment on above: Performed By: #### A DIFF, MDW, ANEU, GFR, BMP, CBC, MG #### [address] [address] Lymphocytes/100 WBC (Bld) 32.9 % Normal 10.0-50.0 [facility] ([place]) Comment on above: Performed By: #### A DIFF, MDW, ANEU, GFR, BMP, CBC, MG #### [address] [address] Monocyte, Absolute 0.4 10 3/mcL Normal 0.2-1.0 [facility] ([place]) Comment on above: Performed By: #### A DIFF, MDW, ANEU, GFR, BMP, CBC, MG #### [address] [address] Monocytes/100 WBC (Bld) 7.7 % Normal 1.7-13.0 [facility] ([place]) Comment on above: Performed By: #### A DIFF, MDW, ANEU, GFR, BMP, CBC, MG #### [address] [address] Neutrophils/100 WBC (Bld) 54.8 % Normal 37.0-80.0 [facility] ([place]) Comment on above: Performed By: #### A ELISA PADRON, ANEU, GFR, BMP, CBC, MG #### [address] [address] .GFRon 01-07-2024 GFR 194 ml/min/1.73sqm Normal [facility] ([place]) Comment on above: Result Comment: GFR Population mean for , Non- Americans Ages 20-29 = 116 mL/min/1.73 sq.m. Ages 30-39 = 107 mL/min/1.73 sq.m. Ages 40-49 = 99 mL/min/1.73 sq.m. Ages 50-59 = 93 mL/min/1.73 sq.m. Ages 60-69 = 85 mL/min/1.73 sq.m. Ages 70+ = 75 mL/min/1.73 sq.m. Chronic Kidney Disease: Less than 60 mL/min/1.73 square meters End Stage Renal Disease: Less than 15 mL/min/1.73 square meters Performed By: #### A ELISA PADRON, ANEU, GFR, BMP, CBC, MG #### [address] [address] GFR Non- 160 ml/min/1.73sqm Normal [facility] ([place]) Comment on above: Result Comment: GFR Population mean for , Non- Americans Ages 20-29 = 116 mL/min/1.73 sq.m. Ages 30-39 = 107 mL/min/1.73 sq.m. Ages 40-49 = 99 mL/min/1.73 sq.m. Ages 50-59 = 93 mL/min/1.73 sq.m. Ages 60-69 = 85 mL/min/1.73 sq.m. Ages 70+ = 75 mL/min/1.73 sq.m. Chronic Kidney Disease: Less than 60 mL/min/1.73 square meters End Stage Renal Disease: Less than 15 mL/min/1.73 square meters Performed By: #### A ELISA PADRON, ANEU, GFR, BMP, CBC, MG #### [address] [address] .MDWon 01-07-2024 Monocyte Distribution Width 17.86 Normal 0.00-20.00 [facility] ([place]) Comment on above: Result Comment: For ED adult patients suspected of sepsis, MDW<=20.0 does not rule out sepsis or risk of sepsis Performed By: #### A ELISA PADRON, ANEU, GFR, BMP, CBC, MG ####[address] [address] .NEUABSon 01-07-2024 Neutrophil, Absolute 2.8 10 3/mcL Low 2.9-6.2 [facility] ([place]) Comment on above: Performed By: #### A ELISA PADRON, ANEU, GFR, BMP, CBC, MG #### [place] [address] Jesus 01-07-2024 Ethanol Level 127 mg/dL High 0-3 [facility] ([place]) Comment on above: Performed By: #### A LC #### [place] [address] BMPon 01-07-2024 BUN/Creatinine Ratio 15 ratio Normal 7-27 Replaced by [facility]) Comment on above: Performed By: #### A ELISA PADRON, ANEU, GFR, BMP, CBC, MG #### [address] [address] Calcium [Mass/Vol] 7.9 mg/dL Low 8.4-10.2 [facility] ([place]) Comment on above: Performed By: #### A ELISA PADRON, ANEU, GFR, BMP, CBC, MG #### [address] [address] Chloride [Moles/Vol] 97 mmol/L Low 98-107 [facility] ([place]) Comment on above: Performed By: #### A ELISA PADRON, ANEU, GFR, BMP, CBC, MG #### [address] [address] CO2 [Moles/Vol] 22 mmol/L Normal 22-29 [facility] ([place]) Comment on above: Performed By: #### A ELISA PADRON, ANEU, GFR, BMP, CBC, MG #### [address] [address] Creatinine [Mass/Vol] 0.54 mg/dL Low 0.70-1.30 [facility] ([place]) Comment on above: Performed By: #### A ELISA PADRON, ANEU, GFR, BMP, CBC, MG #### [address] [address] Electrolyte Balance 15.0 mEq/L Normal 4.0-15.0 [facility] ([place]) Comment on above: Performed By: #### A ELISA PADRON, ANEU, GFR, BMP, CBC, MG #### [address] [address] Glucose [Mass/Vol] 118 mg/dL High 70-105 [facility] ([place]) Comment on above: Performed By: #### A ELISA PADRON, ANEU, GFR, BMP, CBC, MG #### [address] [address] Potassium [Moles/Vol] 4.0 mmol/L Normal 3.5-5.1 [facility] ([place]) Comment on above: Performed By: #### A ELISA PADRON, ANEU, GFR, BMP, CBC, MG #### [address] [address] Sodium [Moles/Vol] 134 mmol/L Low 136-145 [facility] ([place]) Comment on above: Performed By: #### A ELISA PADRON, ANEU, GFR, BMP, CBC, MG #### [address] [address] Urea nitrogen [Mass/Vol] 8 mg/dL Normal 7-18 [facility] ([place]) Comment on above: Performed By: #### A ELISA PADRON, ANEU, GFR, BMP, CBC, MG #### [address] [address] CBCon 01-07-2024 Erythrocyte distribution width (RBC) [Ratio] 14.1 % Normal 11.5-14.5 [facility] ([place]) Comment on above: Performed By: #### A DIFFELISA, ANEU, GFR, BMP, CBC, MG #### [place] [address] Hematocrit (Bld) [Volume fraction] 45.3 % Normal 42.0-52.0 [facility] ([place]) Comment on above: Performed By: #### A DIFFMDW, ANEU, GFR, BMP, CBC, MG #### [place] [address] Hgb 16.4 G/dL Normal 14.0-18.0 [facility] ([place]) Comment on above: Performed By: #### A DIFFELISA, ANEU, GFR, BMP, CBC, MG #### [place] [address] MCH (RBC) [Entitic mass] 35.0 pg High 27.0-31.2 [facility] ([place]) Comment on above: Performed By: #### A ELISA PADRON, ANEU, GFR, BMP, CBC, MG #### [place] [address] MCHC 36.2 G/dL High 31.8-35.4 [facility] ([place]) Comment on above: Performed By: #### A DIFFELISA, ANEU, GFR, BMP, CBC, MG #### [place] [address] MCV (RBC) [Entitic vol] 96.7 fL High 80.0-94.0 [facility] ([place]) Comment on above: Performed By: #### A DIFFMDW, ANEU, GFR, BMP, CBC, MG #### [place] [address] Platelet 155 10 3/mcL Normal 130-400 [facility] ([place]) Comment on above: Performed By: #### A DIFFMDW, ANEU, GFR, BMP, CBC, MG #### [place] [address] Platelet mean volume (Bld) [Entitic vol] 7.7 fL Normal 7.4-10.4 [facility] ([place]) Comment on above: Performed By: #### A ELISA PADRON, ANEU, GFR, BMP, CBC, MG #### [address] [place], [place] [address] RBC 4.69 10 6/mcL Normal 4.04-6.13 [facility] ([place]) Comment on above: Performed By: #### A ELISA PADRON, ANEU, GFR, BMP, CBC, MG #### [address] [place], [place] [address] WBC 5.1 10 3/mcL Normal 4.6-10.8 [facility] ([place]) Comment on above: Performed By: #### A ELISA PADRON, ANEU, GFR, BMP, CBC, MG #### [address] [place], [place] [address] CT HEAD OR BRAIN W/O CONTRAS Ton 01-07-2024 CT HEAD OR BRAIN W/O CONTRAST ORIGINAL EXAMINATION: CT OF THE HEAD WITHOUT CONTRAST 01/07/2024 5:31 pm TECHNIQUE: CT of the head was performed without the administration of intravenous contrast. Automated exposure control, iterative reconstruction, and/or weight based adjustment of the mA/kV was utilized to reduce the radiation dose to as low as reasonably achievable. COMPARISON: None. HISTORY: ORDERING SYSTEM PROVIDED HISTORY: Reason for Exam: pain FINDINGS: BRAIN/VENTRICLES: There is no acute intracranial hemorrhage, mass effect or midline shift. No abnormal extra-axial fluid collection. Areas of encephalomalacia in the left temporal lobe laterally. There is no evidence of hydrocephalus. ORBITS: The visualized portion of the orbits demonstrate no acute abnormality. SINUSES: The visualized paranasal sinuses and mastoid air cells demonstrate no acute abnormality. SOFT TISSUES/SKULL: No acute abnormality of the visualized skull or soft tissues. Left orbital rim fixation hardware. IMPRESSION: No acute intracranial abnormality. Interpreted by: Mynor Grande Preliminary Report By: Mynor Grande Electronically signed By Mynor Grande Dictated Date: 01/07/2024 5:40:10 PM Prelim Date: 01/07/2024 5:42:15 PM Sign Date: 01/07/2024 5:42:15 PM Ordering Provider: JOHN Feldman [facility] ([place]) CVFLURVon 01-07-2024 FLU A PCR Negative Normal Negative [facility] ([place]) Comment on above: Performed By: #### C VFLURV #### [address] [address] FLU B PCR Negative Normal Negative [facility] ([place]) Comment on above: Performed By: #### C VFLURV #### [place] [address] RSV PCR Negative Normal Negative [facility] ([place]) Comment on above: Performed By: #### C VFLURV #### [place] [address] SARS-CoV-2 (COVID-19) RNA MARCUS+probe Ql (Unsp spec) Negative Normal Negative [facility] ([place]) Comment on above: Result Comment: Resu lts from the Xpert Xpress CoV-2/Flu/RSV plus test should be correlated with the clinical history, epidemiological data, and other data available to the clinical evaluating the patient. Performance of the Xpert Xpress CoV-2/Flu/RSV plus test has only been established in nasopharyngeal swab specimen. Erroneous test results might occur from improper specimen collection, failure to follow the recommended sample collection, handling and storage procedures, technical error, or sample mix-up. False negative results may occur if a virus is present at a level below the analytical limit of detection. Viral nucleic acid may persist in vivo, independent of virus viability. Detection of analyte target(s) does not imply that the corresponding virus(es) are infectious or are the causative agents for clinical symptoms. Recent patient exposure to FluMist or other live attenuated influenza vaccines may cause inaccurate positive results. Performed By: #### C VFLURV #### [place] [address] LABORATORYOrdered By: SYSTEM SYSTEM on 01-07-2024 Ethanol [Mass/Vol] 127 mg/dL High 0 - 3 mg/dL AO AD M SS Basophil, Absolute 0.1 103/mcL Normal 0.0 - 0.2 10^3/mcL AO Workflow SS Basophils/100 WBC (Bld) 1.2 % Normal 0.0 - 2.5 % AO Workflow SS Calcium [Mass/Vol] 7.9 mg/dL Low 8.4 - 10. 2 mg/dL AO ADM SS Chloride [Moles/Vol] 97 mmol/L Low 98 - 10 7 mmol/L AO ADM SS CO2 [Moles/Vol] 22 mmol/L Normal 22 - 29 mmol/L AO ADM SS Creatinine [Mass/Vol] 0.54 mg/dL Low 0.70 - 1.30 mg/dL AO ADM SS Electrolyte Balance 15.0 mEq/L Normal 4.0 - 15 .0 mEq/L AO ADM SS Eosinophil, Absolute 0.2 103/mcL Normal 0.0 - 0 .4 10^3/mcL AO Workflow SS Eosinophils/100 WBC (Bld) 3.4 % Normal 0.0 - 7.0 % AO Workflow SS Erythrocyte distribution width (RBC) [Ratio] 14.1 % Normal 11.5 - 14.5 % AO Workflow SS GFR/1.73 sq M.predicted among blacks MDRD (S/P/Bld) [Vol rate/Area] 194 ml/min/1.73sqm Invalid Interpretation Code AO Chemistry S Comment on above: Interpretive Data: GFR Population mean for , Non- Americans Ages 20-29 = 116 mL/min/1.73 sq.m. Ages 30-39 = 107 mL/min/1.73 sq.m. Ages 40-49 = 99 mL/min/1.73 sq.m. Ages 50-59 = 93 mL/min/1.73 sq.m. Ages 60-69 = 85 mL/min/1.73 sq.m. Ages 70+ = 75 mL/min/1.73 sq.m. Chronic Kidney Disease: Less than 60 mL/min/1.73 square meters End Stage Renal Disease: Less than 15 mL/min/1.73 square meters GFR/1.73 sq M.predicted among non-blacks MDRD (S/P/Bld) [Vol rate/Area] 160 ml/min/1.73sqm Invalid Interpretation Code AO Chemistry S Comment on above: Interpretive Data: GFR Population mean for , Non- Americans Ages 20-29 = 116 mL/min/1.73 sq.m. Ages 30-39 = 107 mL/min/1.73 sq.m. Ages 40-49 = 99 mL/min/1.73 sq.m. Ages 50-59 = 93 mL/min/1.73 sq.m. Ages 60-69 = 85 mL/min/1.73 sq.m. Ages 70+ = 75 mL/min/1.73 sq.m. Chronic Kidney Disease: Less than 60 mL/min/1.73 square meters End Stage Renal Disease: Less than 15 mL/min/1.73 square meters Glucose [Mass/Vol] 118 mg/dL High 70 - 105 mg/dL AO ADM SS Hematocrit (Bld) [Volume fraction] 45.3 % Normal 42.0 - 52.0 % AO Workflow SS Hemoglobin (Bld) [Mass/Vol] 16.4 G/dL Normal 14.0 - 18.0 G/dL AO Workflow SS Lymphocyte, Absolute 1.7 103/mcL Normal 0.8 - 3 .9 10^3/mcL AO Workflow SS Lymphocytes/100 WBC (Bld) 32.9 % Normal 10.0 - 50.0 % AO Workflow SS Magnesium [Mass/Vol] 1.6 mg/dL Low 1.8 - 2 .4 mg/dL AO ADM SS MCH (RBC) [Entitic mass] 35.0 pg High 27.0 - 31.2 pg AO Workflow SS MCHC 36.2 G/dL High 31.8 - 35.4 G/dL AO Workflow SS MCV (RBC) [Entitic vol] 96.7 fL High 80.0 - 94.0 fL AO Workflow SS Monocyte distribution width Auto (Bld) [Entitic vol] 17.86 1 Normal 0.00 - 20.00 AO Workflow SS Comment on above: Result Comment: For ED adult patients suspected of sepsis, MDW<=20.0 does not rule out sepsis or risk of sepsis Monocyte, Absolute 0.4 103/mcL Normal 0.2 - 1.0 10^3/mcL AO Workflow SS Monocytes/100 WBC (Bld) 7.7 % Normal 1.7 - 13.0 % AO Workflow SS Neutrophil, Absolute 2.8 103/mcL Low 2.9 - 6 .2 10^3/mcL AO Workflow SS Neutrophils/100 WBC (Bld) 54.8 % Normal 37.0 - 80.0 % AO Workflow SS Platelet mean volume (Bld) [Entitic vol] 7.7 fL Normal 7.4 - 10.4 fL AO Workflow SS Platelets (Bld) [#/Vol] 155 103/mcL Normal 130 - 400 10^3/mcL AO Workflow SS Potassium [Moles/Vol] 4.0 mmol/L Normal 3.5 - 5.1 mmol/L AO ADM SS RBC (Bld) [#/Vol] 4.69 106/mcL Normal 4.04 - 6.1 3 10^6/mcL AO Workflow SS Sodium [Moles/Vol] 134 mmol/L Low 136 - 145 mmol/L AO ADM SS Urea nitrogen [Mass/Vol] 8 mg/dL Normal 7 - 18 mg/dL AO ADM SS Urea nitrogen/Creatinine [Mass ratio] 15 ratio Normal 7 - 27 ratio AO ADM SS WBC (Bld) [#/Vol] 5.1 103/mcL Normal 4.6 - 10.8 10^3/mcL AO Workflow SS LABORATORYOrdered By: Reza jean-baptiste on 01-07-2024 FLUAV RNA MARCUS+probe Ql (Resp) Negative (01/07/24 5:11 PM) Normal Negative AO Auto Urine SS FLUBV RNA MARCUS+probe Ql (Resp) Negative (01/07/24 5:11 PM) Normal Negative AO Auto Urine SS RSV RNA MARCUS+probe Ql (Resp) Negative (01/07/24 5:11 PM) Normal Negative AO Auto Urine SS SARS-CoV-2 (COVID-19) RNA MARCUS+probe Ql (Resp) Negative 2 (01/07/24 5:11 PM) Normal Negative AO Auto Urine SS Comment on above: Interpretive Data: R esults from the Xpert Xpress CoV-2/Flu/RSV plus test should be correlated with the clinical history, epidemiological data, and other data available to the clinical evaluating the patient. Performance of the Xpert Xpress CoV-2/Flu/RSV plus test has only been established in nasopharyngeal swab specimen. Erroneous test results might occur from improper specimen collection, failure to follow the recommended sample collection, handling and storage procedures, technical error, or sample mix-up. False negative results may occur if a virus is present at a level below the analytical limit of detection. Viral nucleic acid may persist in vivo, independent of virus viability. Detection of analyte target(s) does not imply that the corresponding virus(es) are infectious or are the causative agents for clinical symptoms. Recent patient exposure to FluMist or other live attenuated influenza vaccines may cause inaccurate positive results. MGon 01-07-2024 Magnesium [Mass/Vol] 1.6 mg/dL Low 1.8-2.4 [facility] ([place]) Comment on above: Performed By: #### A DIFF, W, ANEU, GFR, BMP, CBC, MG #### [address] [place], [place] [address] XR CHEST 1 VIEWon 01-07-2024 XR CHEST 1 VIEW ORIGINAL EXAMINATION: ONE XRAY VIEW OF THE CHEST 01/07/2024 5:32 pm COMPARISON: None. HISTORY: ORDERING SYSTEM PROVIDED HISTORY: Reason for Exam: chest pain FINDINGS: Cardiomediastinal contour is normal. No focal consolidation or pulmonary edema. No pneumothorax or pleural effusion. No acute osseous abnormality. Chronic left mid clavicle deformity. IMPRESSION: No acute radiographic abnormality. I have personally reviewed the images of this examination and agree with the resident's findings and interpretation. Interpreted by: Mynor Grande Preliminary Report By: Sanjay Ferreira Electronically signed By Mynor Grande Dictated Date: 01/07/2024 5:40:50 PM Prelim Date: 01/07/2024 5:41:37 PM Sign Date: 01/07/2024 5:42:48 PM Ordering Provider: JOHN Feldman [facility] ([place]) Clostridioides difficile nuc leic acid assay by PCROrdered By: Vasu Blackwell on 09-25-2023 C. difficile DNA MARCUS+probe Ql (Unsp spec) [facility] C. difficile DNA MARCUS+probe Ql (Unsp spec) [facility] No Panel InformationOrdered By: Vasu Blackwell on 09-25-2023 Stool Calprotectin 16 ug/g 0-120 [facility] Comment on above: Concentration Interp retation Follow-Up< 5 - 50 ug/g Normal None>50 -120 ug/g Borderline Re-evaluate in 4-6 weeks >120 ug/g Abnormal Repeat as clinically indicatedPerformed at: - [facility] [address] [id number] Director: Jess Sargent MD, Phone: [phone] Stool enteric pathogen panel by probe and target amplification methodOrdered By: Vasu Blackwell on 09-25-2023 Gastrointestinal pathogens panel MARCUS+probe (Stl) [facility] Gastrointestinal pathogens panel MARCUS+probe (Stl) [facility] Stool lactoferrin detection by immunoassayOrdered By: Vasu Blackwell on 09-25-2023 Lactoferrin IA Ql (Stl) [facility] Lactoferrin IA Ql (Stl) [facility] Absolute lymphocyte countOrd ered By: Vasu Blackwell on 09-24-2023 Lymphocytes Auto (Unsp spec) [#/Vol] 1.46 10*3/uL 0.83-4.51 [facility] Automated lymphocyte count a s percentage of total leukocytesOrdered By: Vasu Blackwell on 09-24-2023 Lymphocytes/100 WBC Auto (Unsp spec) 27.3 % 19-41 [facility] Basophil percentageOrdered B y: Errol Moore on 09-24-2023 Ammonia (P) [Moles/Vol] 165.0 umol/L 11-32 [facility] Basophil percentageOrdered B y: Vasu Blackwell on 09-24-2023 Basophils/100 WBC (Bld) 0.6 % 0-1 [facility] Bilirubin [Mass/Vol] 0.20 mg/dL 0.20-1.00 [facility] Comment on above: For patients on eltr ombopag therapy, use of Dimension [place] TBIL is not recommended. Chloride [Moles/Vol] 103 mmol/L 98-107 [facility] Eosinophils/100 WBC (Bld) 3.9 % 0-5 [facility] Glucose [Mass/Vol] 105 mg/dL 74-106 [facility] Comment on above: Fasting Glucose resu lt from 100 to 125 mg/dL suggests IMPAIRED HOMEOSTASIS per A.D.A. criteria. Hemoglobin (Bld) [Mass/Vol] 15.0 g/dL 13.0-16.5 [facility] Monocytes/100 WBC (Bld) 8.0 % 0-10 [facility] Neutrophils (Bld) [#/Vol] 3.2 10*3/uL 2.0-7.7 [facility] Neutrophils/100 WBC (Bld) 59.8 % 47-70 [facility] Potassium [Moles/Vol] 3.7 mmol/L 3.5-5.1 [facility] Protein [Mass/Vol] 7.0 g/dL 6.4-8.2 [facility] Sodium [Moles/Vol] 133 mmol/L 136-145 [facility] WBC (Bld) [#/Vol] 5.4 10*3/uL 4.4-11.0 [facility] Blood manual differential co mment interpretation (narrative result)Ordered By: Vasu Blackwell on 09-24-2023 Manual differential comment Jr (Bld) [Interp] See comment [facility] Comment on above: 1+ ANISOCYTOSIS Determination of erythrocyte mean corpuscular volume (MCV)Ordered By: domospeonkdeidra Blackwell on 09-24-2023 MCV (RBC) [Entitic vol] 109.1 fL 80-94 [facility] Erythrocyte distribution wid th ratioOrdered By: [facility] Adityapatricia on 09-24-2023 Erythrocyte distribution width (RBC) [Ratio] 16.6 % 11.6-14.6 [facility] Erythrocyte distribution wid th standard deviationOrdered By: [facility] Center[facility]id[facility] Burgesspatricia on 09-24-2023 Erythrocyte distribution width (RBC) [Entitic vol] 67.6 fL 35.1-43.9 [facility] Hematocrit Auto (Bld) [Volum e fraction]Ordered By: Vasu Burgesspatricia on 09-24-2023 Hematocrit (Bld) [Volume fraction] 44.3 % 40-54 [facility] Immature granulocytes/100 WB C Auto (Bld)Ordered By: kathy Burgesspatricia on 09-24-2023 Immature granulocytes/100 WBC (Bld) 0.400 % 0.0-0.9 [facility] Comment on above: IG% - Immature Granu locytes (promyelocytes, myelocytes and metamyelocytes) > 1% indicates that a LEFT SHIFT is Present. Laboratory - Chemistry and C hemistry - challengeOrdered By: Vasu Blackwell on 09-24-2023 Amylase [Catalytic activity/Vol] 3004 U/L 15-85 [facility] Albumin/Globulin [Mass ratio] 0.9 {ratio} 0.9-2.4 [facility] ALP [Catalytic activity/Vol] 286 U/L 45-117 [facility] ALT [Catalytic activity/Vol] 87 U/L 16-61 [facility] CO2 [Moles/Vol] 25.0 mmol/L 21.0-32.0 [facility] Globulin (S) [Mass/Vol] 3.7 g/dL 2.2-4.2 [facility] Urea nitrogen/Creatinine [Mass ratio] 10.5 mg/mg 10-20 [facility] Laboratory - Chemistry and C hemistry - challengeOrdered By: Errol Moore on 09-24-2023 Cobalamin (Vitamin B12) [Mass/Vol] 422 pg/mL 211-911 [facility] Magnesium [Mass/Vol] 2.2 mg/dL 1.6-2.6 [facility] Laboratory - Hematology and Cell countsOrdered By: Vasu Blackwell on 09-24-2023 MCH (RBC) [Entitic mass] 36.9 pg 27.0-32.0 [facility] MCHC (RBC) [Mass/Vol] 33.9 g/dL 32-36 [facility] Nucleated RBC/100 WBC (Bld) [Ratio] 0 % 0-5 [facility] Platelets (Bld) [#/Vol] 317 10*3/uL 150-450 [facility] No Panel InformationOrdered By: Errol Moore on 09-24-2023 Folate 2.30 ng/mL 3.1-55.4 [facility] Comment on above: Slight Hemolysis, Re sult may be falsely increased. Levetiracetam (Keppra) Level 18.2 ug/mL 10.0-40.0 [facility] Comment on above: Performed at: - [address] [id number] Director: Jess Sargent MD, Phone: [phone] Miscellaneous Test See comment [facility] Comment on above: TEST RESULTS LIMITSZ onisamide(Zonegran), Serum Zonisamide 5.4 Low ug/mL 10.0-40.0 Detection Limit = 2.0 TESTING PERFORMED AT [facility]. ORIGINAL REPORT ON FILE IN LAB CONTAINS ADDITIONAL TEST SITE INFORMATION. Valproic Acid (Depakene) Level 47 ug/mL 50-100 [facility] No Panel InformationOrdered By: Vasu Blackwell on 09-24-2023 Estimated GFR (MDRD) Amer 139 mL/min >60 [facility] Comment on above: GFR Calc Estimated GFR (MDRD) Non-Af Amer 114 mL/min >60 [facility] Comment on above: Non- GFR Calc Platelet mean volume Jhonatan-Ec ker (Bld) [Entitic vol]Ordered By: Vasu Blackwell on 09-24-2023 Platelet mean volume (Bld) [Entitic vol] 9.3 fL 6.2-12.0 [facility] RBC Auto (Bld) [#/Vol]Ordere d By: Vasu Blackwell on 09-24-2023 RBC (Bld) [#/Vol] 4.06 10*6/uL 4.6-6.2 [facility] Serum or plasma calcium duane urement (mass/volume)Ordered By: Vasu Blackwell on 09-24-2023 Calcium [Mass/Vol] 8.5 mg/dL 8.5-10.1 [facility] Serum or plasma creatinine m easurement (mass/volume)Ordered By: Vasu Blackwell on 09-24-2023 Creatinine [Mass/Vol] 0.76 mg/dL 0.70-1.30 [facility] Comment on above: The validity of the calculated GFR & GFRAA in patients over 70 years has not been determined. Clinical correlation is essential. Serum or plasma thiamine aspen surement (mass/volume)Ordered By: Errol Moore on 09-24-2023 Thiamine [Mass/Vol] 115.9 nmol/L 66.5-200.0 [facility] Serum or plasma thyroid stim ulating hormone (TSH) measurement (units/volume)Ordered By: Vasu Blackwell on 09-24-2023 TSH Qn 2.65 uIU/mL 0.358-3.74 [facility] Serum or plasma urea nitroge n measurement (mass/volume)Ordered By: Vasu Blackwell on 09-24-2023 Urea nitrogen [Mass/Vol] 8 mg/dL 7-18 [facility] Thin prep Papanicolaou smear with manual screeningOrdered By: Vasu Blackwell on 09-24-2023 Thin prep Papanicolaou smear with manual screening 3.3 g/dL 3.2-5.0 [facility] Thin prep Papanicolaou smear with manual screening 57 U/L 15-37 [facility] Thin prep Papanicolaou smear with manual screening 5 5-15 [facility] Thin prep Papanicolaou smear with manual screening 0.85 ng/dL 0.76-1.46 [facility] Basophil percentageOrdered B y: Errol Moore on 09-13-2023 Basophil percentage < 1.0 mg/dL 0.70-1.30 [facility] No Panel InformationOrdered By: Errol Moore on 09-13-2023 Bedside Estimated GFR (eGFR) > 60.0000 mL/min >60 [facility] Absolute lymphocyte countOrd ered By: Wolfgang Tyler on 06-16-2023 Lymphocytes Auto (Unsp spec) [#/Vol] 1.08 10*3/uL 0.83-4.51 [facility] Basophil percentageOrdered B y: Wolfgang Tyler on 06-16-2023 Basophil percentage 0 SEEN /hpf 0-5 [facility] Basophils/100 WBC (Bld) 0.6 % 0-1 [facility] Bilirubin [Mass/Vol] 0.50 mg/dL 0.20-1.00 [facility] Comment on above: For patients on eltr ombopag therapy, use of Dimension [place] TBIL is not recommended. Chloride [Moles/Vol] 98 mmol/L 98-107 [facility] Eosinophils/100 WBC (Bld) 1.5 % 0-5 [facility] Glucose [Mass/Vol] 116 mg/dL 74-106 [facility] Comment on above: Fasting Glucose resu lt from 100 to 125 mg/dL suggests IMPAIRED HOMEOSTASIS per A.D.A. criteria. Neutrophils (Bld) [#/Vol] 3.7 10*3/uL 2.0-7.7 [facility] Neutrophils/100 WBC (Bld) 68.8 % 47-70 [facility] Potassium [Moles/Vol] 3.8 mmol/L 3.5-5.1 [facility] Protein [Mass/Vol] 6.5 g/dL 6.4-8.2 [facility] Sodium [Moles/Vol] 137 mmol/L 136-145 [facility] WBC (Bld) [#/Vol] 5.4 10*3/uL 4.4-11.0 [facility] Bilirubin Test strip Ql (U)O rdered By: Wolfgang Tyler on 06-16-2023 Bilirubin Ql (U) Negative Negative [facility] Blood erythrocytes count (nu mber/volume)Ordered By: Wolfgang Tyler on 06-16-2023 RBC (Bld) [#/Vol] 3.93 10*6/uL 4.6-6.2 [facility] Blood hemoglobin measurement (mass/volume)Ordered By: Wolfgang Tyler on 06-16-2023 Hemoglobin (Bld) [Mass/Vol] 14.6 g/dL 13.0-16.5 [facility] Blood lymphocytes/100 leukoc ytesOrdered By: Wolfgang Tyler on 06-16-2023 Lymphocytes/100 WBC (Bld) 20.1 % 19-41 [facility] Blood manual differential co mment interpretation (narrative result)Ordered By: Wolfgang Tyler on 06-16-2023 Manual differential comment Jr (Bld) [Interp] SCANNED [facility] Blood monocytes/100 leukocyt esOrdered By: Wolfgang Tyler on 06-16-2023 Monocytes/100 WBC (Bld) 8.4 % 0-10 [facility] Blood platelet mean volumeOr dered By: Wolfgang Tyler on 06-16-2023 Platelet mean volume (Bld) [Entitic vol] 9.1 fL 6.2-12.0 [facility] Determination of erythrocyte mean corpuscular volume (MCV)Ordered By: Wolfgang Tyler on 06-16-2023 MCV (RBC) [Entitic vol] 106.1 fL 80-94 [facility] Direct bilirubinOrdered By: Wolfgang Tyler on 06-16-2023 Bilirubin.direct [Mass/Vol] 0.18 mg/dL 0.00-0.30 [facility] Hematocrit Auto (Bld) [Volum e fraction]Ordered By: Wolfgang Tyler on 06-16-2023 Hematocrit (Bld) [Volume fraction] 41.7 % 40-54 [facility] INR in Blood by Coagulation assayOrdered By: Wolfgang Tyler on 06-16-2023 INR Coag (Bld) [Relative time] 1.1 {INR} [facility] Ketones Test strip Ql (U)Ord ered By: Wolfgang Tyler on 06-16-2023 Ketones Ql (U) 50 mg/dl Negative [facility] Laboratory - Chemistry and C hemistry - challengeOrdered By: Wolfgang Tyler on 06-16-2023 ALP [Catalytic activity/Vol] 84 U/L 45-117 [facility] ALT [Catalytic activity/Vol] 54 U/L 16-61 [facility] CO2 [Moles/Vol] 23.0 mmol/L 21.0-32.0 [facility] Globulin (S) [Mass/Vol] 3.3 g/dL 2.2-4.2 [facility] Magnesium [Mass/Vol] 1.9 mg/dL 1.6-2.6 [facility] Urea nitrogen/Creatinine [Mass ratio] 9.4 mg/mg 10-20 [facility] Laboratory - CoagulationOrde red By: Wolfgang Tyler on 06-16-2023 PT Coag (PPP) [Time] 14.6 s 11.7-14.9 [facility] Laboratory - Drug toxicology Ordered By: Wolfgang Tyler on 06-16-2023 Amphetamines Ql (U) Negative <1000 ng/mL [facility] Benzodiazepines Ql (U) Negative < 200 ng/mL [facility] Cannabinoids Screen Ql (U) Positive < 50 ng/mL [facility] Cocaine Ql (U) Negative < 300 ng/mL [facility] Opiates Ql (U) Negative < 300 ng/mL [facility] Laboratory - Hematology and Cell countsOrdered By: Wolfgang Tyler on 06-16-2023 Anisocytosis Ql (Bld) 2+ [facility] Erythrocyte distribution width (RBC) [Entitic vol] 65.4 fL 35.1-43.9 [facility] Erythrocyte distribution width (RBC) [Ratio] 16.6 % 11.6-14.6 [facility] Immature granulocytes/100 WBC (Bld) 0.600 % 0.0-0.9 [facility] Comment on above: IG% - Immature Granu locytes (promyelocytes, myelocytes and metamyelocytes) > 1% indicates that a LEFT SHIFT is Present. MCH (RBC) [Entitic mass] 37.2 pg 27.0-32.0 [facility] Nucleated RBC/100 WBC (Bld) [Ratio] 0 % 0-5 [facility] MCHC Auto (RBC) [Mass/Vol]Or dered By: Wolfgang Tyler on 06-16-2023 MCHC (RBC) [Mass/Vol] 35.0 g/dL 32-36 [facility] Macrocytes detectionOrdered By: Wolfgang Tyler on 06-16-2023 Macrocytes Ql (Bld) 1+ [facility] Mucus LM Ql (Urine sed)Order ed By: Wolfgang Tyler on 06-16-2023 Mucus Ql (Urine sed) 0 SEEN /hpf [facility] Nitrite Test strip Ql (U)Ord ered By: Wolfgang Tyler on 06-16-2023 Nitrite Ql (U) Negative Negative [facility] No Panel InformationOrdered By: Wolfgang Tyler on 06-16-2023 MDMA (Ecstasy) Screen Negative < 500 ng/mL [facility] Urine Barbiturates Screen Negative < 200 ng/mL [facility] Urine Drug Screen Comment [facility] Comment on above: CONFIRMATORY TESTING FOR ALL POSITIVE URINE DRUG SCREENRESULTS WILL ONLY BE SENT OUT UPON PHYSICIAN ORDER. VISTA Urine Drug Screen methods provide only preliminaryanalytical test results. A more specific alternate chemicalmethod must be used in order to obtain a confirmedanalytical result. Gas chromatography/mass spectrometery(GC/MS) is the preferred confirmatory method. Clinicalconsideration and professional judgement should be appliedto any drug of abuse test result, particularly whenpreliminary positive results are used. URINE TCA TESTING MUST BE ORDERED SEPARATELY. USE TESTMNEMONIC: [facility] Urine Methadone Screen Negative < 300 ng/mL [facility] Estimated Creatinine Clearance Calc 139.41 ml/min [facility] Estimated GFR (MDRD) Amer 170 mL/min >60 [facility] Comment on above: GFR Calc Estimated GFR (MDRD) Non-Af Amer 141 mL/min >60 [facility] Comment on above: Non- GFR Calc Ethyl Alcohol Level 44.0 mg/dL [facility] Comment on above: The serum:whole bloo d ethanol ratio is approximately 1.14and varies slightly with hematocrit. Medical Alcohol reference interval and critical value innon-tolerant individuals; 50 - 100 Impairment 100 Intoxication 100 - 250 Severe Poisoning 250 - 400 Deep/possible fatal coma Valproic Acid (Depakene) Level 52 ug/mL 50-100 [facility] Platelets bldOrdered By: Sahil Tyler on 06-16-2023 Platelets (Bld) [#/Vol] 237 10*3/uL 150-450 [facility] Protein Test strip Ql (U)Ord ered By: Wolfgang Tyler on 06-16-2023 Protein Ql (U) 15 mg/dl Negative [facility] Serum or plasma albumin duane urement (mass/volume)Ordered By: Wolfgang Tyler on 06-16-2023 Albumin [Mass/Vol] 3.2 g/dL 3.2-5.0 [facility] Serum or plasma calcium duane urement (mass/volume)Ordered By: Wolfgang Tyler on 06-16-2023 Calcium [Mass/Vol] 8.3 mg/dL 8.5-10.1 [facility] Serum or plasma creatinine m easurement (mass/volume)Ordered By: Wolfgang Tyler on 06-16-2023 Creatinine [Mass/Vol] 0.64 mg/dL 0.70-1.30 [facility] Comment on above: The validity of the calculated GFR & GFRAA in patients over 70 years has not been determined. Clinical correlation is essential. Serum or plasma urea nitroge n measurement (mass/volume)Ordered By: Wolfgang Tyler on 06-16-2023 Urea nitrogen [Mass/Vol] 6 mg/dL 7-18 [facility] Squamous epithelial cells de tection in urine sediment by light microscopyOrdered By: Wolfgang Tyler on 06-16-2023 Epithelial cells.squamous LM Ql (Urine sed) 0 SEEN /hpf 0-5 [facility] Thin prep Papanicolaou smear with manual screeningOrdered By: Wolfgang Tyler on 06-16-2023 Thin prep Papanicolaou smear with manual screening 1+ [facility] Thin prep Papanicolaou smear with manual screening 131 U/L 15-37 [facility] Thin prep Papanicolaou smear with manual screening 16 5-15 [facility] Urine blood detectionOrdered By: Wolfgang Tyler on 06-16-2023 RBC Ql (U) 10 /ul Negative [facility] RBC Ql (U) 0 SEEN /hpf 0-5 [facility] Urine clarityOrdered By: Sahil Tyler on 06-16-2023 Clarity (U) Clear Clear [facility] Urine color determinationOrd ered By: Wolfgang Tyler on 06-16-2023 Color (U) Yellow Yellow [facility] Urine glucose detectionOrder ed By: Wolfgang Tyler on 06-16-2023 Glucose Ql (U) Normal mg/dl Normal [facility] Urine leukocyte esterase det ection by dipstickOrdered By: Wolfgang Tyler on 06-16-2023 Leukocyte esterase Test strip Ql (U) Negative Negative [facility] Urine pHOrdered By: Wolfgang taylor on 06-16-2023 pH (U) 6.5 [pH] 5.0 - 8.0 [facility] Urine phencyclidine (PCP) de tectionOrdered By: Wolfgang Tyler on 06-16-2023 Phencyclidine Ql (U) Negative < 25 ng/mL [facility] Urine sediment bacteria coun t by microscopy (number/high power field)Ordered By: Wolfgang Tyler on 06-16-2023 Bacteria LM.HPF (Urine sed) [#/Area] 0 /[HPF] None Seen [facility] Urine specific gravity measu rementOrdered By: Wolfgang Tyler on 06-16-2023 Specific gravity (U) [Rel density] 1.015 1.002-1.030 [facility] Urobilinogen Auto test strip Ql (U)Ordered By: Wolfgang Tyler on 06-16-2023 Urobilinogen Ql (U) Normal mg/dl Normal [facility] Absolute lymphocyte countOrd ered By: Vasu Blackwell on 05-28-2023 Lymphocytes Auto (Unsp spec) [#/Vol] 1.56 10*3/uL 0.83-4.51 [facility] Basophil percentageOrdered B y: Vasu Blackwell on 05-28-2023 Basophils/100 WBC (Bld) 0.7 % 0-1 [facility] Bilirubin [Mass/Vol] 0.60 mg/dL 0.20-1.00 [facility] Comment on above: For patients on eltr ombopag therapy, use of Dimension [place] TBIL is not recommended. Chloride [Moles/Vol] 101 mmol/L 98-107 [facility] Eosinophils/100 WBC (Bld) 1.6 % 0-5 [facility] Glucose [Mass/Vol] 156 mg/dL 74-106 [facility] Comment on above: Fasting Glucose resu lt greater than or equal to 126 mg/dL suggests DIABETES MELLITUS per A.D.A. criteria. Neutrophils (Bld) [#/Vol] 6.3 10*3/uL 2.0-7.7 [facility] Neutrophils/100 WBC (Bld) 72.4 % 47-70 [facility] Potassium [Moles/Vol] 3.4 mmol/L 3.5-5.1 [facility] Protein [Mass/Vol] 7.6 g/dL 6.4-8.2 [facility] Sodium [Moles/Vol] 135 mmol/L 136-145 [facility] WBC (Bld) [#/Vol] 8.7 10*3/uL 4.4-11.0 [facility] Blood erythrocytes count (nu mber/volume)Ordered By: Vasu Blackwell on 05-28-2023 RBC (Bld) [#/Vol] 4.00 10*6/uL 4.6-6.2 [facility] Blood hemoglobin measurement (mass/volume)Ordered By: Vasu Blackwell on 05-28-2023 Hemoglobin (Bld) [Mass/Vol] 15.0 g/dL 13.0-16.5 [facility] Blood lymphocytes/100 leukoc ytesOrdered By: Vasu Blackwell on 05-28-2023 Lymphocytes/100 WBC (Bld) 18.0 % 19-41 [facility] Blood manual differential co mment interpretation (narrative result)Ordered By: Vasu Blackwell on 05-28-2023 Manual differential comment Jr (Bld) [Interp] SCANNED [facility] Blood monocytes/100 leukocyt esOrdered By: Vasu Blackwell on 05-28-2023 Monocytes/100 WBC (Bld) 7.0 % 0-10 [facility] Blood platelet mean volumeOr dered By: Vasu Blackwell on 05-28-2023 Platelet mean volume (Bld) [Entitic vol] 9.5 fL 6.2-12.0 [facility] Determination of erythrocyte mean corpuscular volume (MCV)Ordered By: Vasu Blackwell on 05-28-2023 MCV (RBC) [Entitic vol] 110.5 fL 80-94 [facility] Hematocrit Auto (Bld) [Volum e fraction]Ordered By: Vasu Blackwell on 05-28-2023 Hematocrit (Bld) [Volume fraction] 44.2 % 40-54 [facility] Laboratory - Chemistry and C hemistry - challengeOrdered By: Vasu Blackwell on 05-28-2023 ALP [Catalytic activity/Vol] 73 U/L 45-117 [facility] ALT [Catalytic activity/Vol] 26 U/L 16-61 [facility] CO2 [Moles/Vol] 24.0 mmol/L 21.0-32.0 [facility] Globulin (S) [Mass/Vol] 3.8 g/dL 2.2-4.2 [facility] Urea nitrogen/Creatinine [Mass ratio] 10.5 mg/mg 10-20 [facility] Laboratory - Hematology and Cell countsOrdered By: Vasu Blackwell on 05-28-2023 Anisocytosis Ql (Bld) 1+ [facility] Erythrocyte distribution width (RBC) [Entitic vol] 70.1 fL 35.1-43.9 [facility] Erythrocyte distribution width (RBC) [Ratio] 17.0 % 11.6-14.6 [facility] Immature granulocytes/100 WBC (Bld) 0.300 % 0.0-0.9 [facility] Comment on above: IG% - Immature Granu locytes (promyelocytes, myelocytes and metamyelocytes) > 1% indicates that a LEFT SHIFT is Present. MCH (RBC) [Entitic mass] 37.5 pg 27.0-32.0 [facility] Nucleated RBC/100 WBC (Bld) [Ratio] 0 % 0-5 [facility] MCHC Auto (RBC) [Mass/Vol]Or dered By: Vasu Blackwell on 05-28-2023 MCHC (RBC) [Mass/Vol] 33.9 g/dL 32-36 [facility] No Panel InformationOrdered By: Vasu Blackwell on 05-28-2023 Estimated GFR (MDRD) Amer 120 mL/min >60 [facility] Comment on above: GFR Calc Estimated GFR (MDRD) Non-Af Amer 99 mL/min >60 [facility] Comment on above: Non- GFR Calc Platelets bldOrdered By: Vlad Blackwell on 05-28-2023 Platelets (Bld) [#/Vol] 277 10*3/uL 150-450 [facility] Serum or plasma albumin duane urement (mass/volume)Ordered By: Vasu Blackwell on 05-28-2023 Albumin [Mass/Vol] 3.8 g/dL 3.2-5.0 [facility] Serum or plasma albumin/glob ulin mass ratioOrdered By: Vasu Blackwell on 05-28-2023 Albumin/Globulin [Mass ratio] 1.0 {ratio} 0.9-2.4 [facility] Serum or plasma calcium duane urement (mass/volume)Ordered By: Vasu Blackwell on 05-28-2023 Calcium [Mass/Vol] 8.9 mg/dL 8.5-10.1 [facility] Serum or plasma creatinine m easurement (mass/volume)Ordered By: Vasu Blackwell on 05-28-2023 Creatinine [Mass/Vol] 0.86 mg/dL 0.70-1.30 [facility] Comment on above: The validity of the calculated GFR & GFRAA in patients over 70 years has not been determined. Clinical correlation is essential. Serum or plasma urea nitroge n measurement (mass/volume)Ordered By: Vasu Blackwell on 05-28-2023 Urea nitrogen [Mass/Vol] 9 mg/dL 7-18 [facility] Thin prep Papanicolaou smear with manual screeningOrdered By: aVsu Blackwell on 05-28-2023 Thin prep Papanicolaou smear with manual screening 57 U/L 15- [facility] Thin prep Papanicolaou smear with manual screening 10 5-15 [facility] Whole blood hemoglobin A1c/t otal hemoglobin ratio (mass fraction)Ordered By: Vasu Blackwell on 05-28-2023 HbA1c (Bld) [Mass fraction] 5.1 % 3.8-5.6 [facility] Comment on above: Normal < 5.7 % Predi abetic 5.7 - 6.4 % Diabetic >or= 6.5 % Please note range changes. Office Visit (Neuro-Epilepsy )on 02-21-2022 Follow-up visit Provider Impressions Mr. Poon is a LH 51 year old man with epilepsy since 2019 atleast. He is here for consultation of the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 hospitalization Outcome: Progressing Problem: Discharge Planning: Goal: Discharge needs of the adult patient will be met Outcome: Progressing Problem: Acute Pain: Goal: Acceptable level of pain which allows the patient to achieve functional outcome goals Outcome: Progressing Note: Pt denies pain at this time Problem: Impaired Skin Integrity: Goal: Skin integrity will improve and/or be maintained Outcome: Progressing Normal [facility] GLUCOSE, FINGERSTICK-IN OFFI CEon 01-31-2021 Glucose [Mass/Vol] 105 mg/dL Normal 68-110 [facility] Comment on above: Performed By: #### 8 2948 #### NURSING GLUCOSE PROGRAM [address] [place], [place], Glucose [Mass/Vol] 113 mg/dL High 68-110 [facility] Comment on above: Performed By: #### M G, ETOH, CH8, HEPATIC #### [facility] [address] [place], [place], Glucose [Mass/Vol] 125 mg/dL High 68-110 [facility] Comment on above: Performed By: #### M G, ETOH, CH8, HEPATIC #### [facility] [address] [place], [place], Glucose [Mass/Vol] 95 mg/dL Normal 68-110 [facility] Comment on above: Performed By: #### M G, ETOH, CH8, HEPATIC #### [facility] [address] [place], [place], MAGNESIUMon 01-31-2021 Magnesium [Mass/Vol] 1.6 mg/dL Normal 1.6-2.8 [facility] Comment on above: Performed By: #### 8 2948 #### NURSING GLUCOSE PROGRAM [address] [place], [address] PHOSPHORUSon 01-31-2021 Phosphate [Mass/Vol] 3.2 mg/dL Normal 2.5-4.8 [facility] Comment on above: Performed By: #### 8 2948 #### NURSING GLUCOSE PROGRAM [address] [place], [address] BASIC METABOLIC PANELon 01-18 Anion gap [Moles/Vol] 10 mmol/L Normal 5-13 [facility] Comment on above: Performed By: #### M G, ETOH, CH8, HEPATIC #### [facility] [address] [place], [place], Calcium [Mass/Vol] 8.3 mg/dL Low 8.4-10.4 [facility] Comment on above: Performed By: #### M G, ETOH, CH8, HEPATIC #### [facility] [address] [place], [place], Chloride [Moles/Vol] 106 mmol/L Normal 97-111 [facility] Comment on above: Performed By: #### M G, ETOH, CH8, HEPATIC #### [facility] [address] [place], [place], CO2 [Moles/Vol] 27 mmol/L Normal 21-30 [facility] Comment on above: Performed By: #### M G, ETOH, CH8, HEPATIC #### [facility] [address] [place] [address], Creatinine [Mass/Vol] 0.72 mg/dL Low 0.80-1.30 [facility] Comment on above: Performed By: #### M G, ETOH, CH8, HEPATIC #### [facility] [address] [place] [address], ESTIMATED GFR (CKD-EPI) 110 mL/min/1.73sqm Normal >=[address] [facility] Comment on above: Performed By: #### M G, ETOH, CH8, HEPATIC #### [facility] [address] [place] [address], Glucose [Mass/Vol] 99 mg/dL Normal 68-110 [facility] Comment on above: Performed By: #### M G, ETOH, CH8, HEPATIC #### [facility] [address] [place] [address], Potassium [Moles/Vol] 4.0 mmol/L Normal 3.3-5.3 [facility] Comment on above: Performed By: #### M G, ETOH, CH8, HEPATIC #### [facility] [address] [place] [address], Sodium [Moles/Vol] 139 mmol/L Normal 135-148 [facility] Comment on above: Performed By: #### M G, ETOH, CH8, HEPATIC #### [facility] [address] [place] [address], Urea nitrogen [Mass/Vol] mg/dL Low 8-22 [facility] Comment on above: Performed By: #### M G, ETOH, CH8, HEPATIC #### [facility] [address] [place] [address], COMPLETE BLOOD COUNTon 01-30 Erythrocyte distribution width (RBC) [Ratio] 14.9 % High 11.5-14.5 [facility] Comment on above: Performed By: #### M G, ETOH, CH8, HEPATIC #### [facility] [address] [place], [place], Hematocrit (Bld) [Volume fraction] 37.6 % Low 41.0-53.[address] [facility] Comment on above: Performed By: #### M G, ETOH, CH8, HEPATIC #### [facility] [address] [place], Hemoglobin (Bld) [Mass/Vol] 12.8 g/dL Low 13.9-16.3 [facility] Comment on above: Performed By: #### M G, ETOH, CH8, HEPATIC #### [facility] [address] [place], MCH (RBC) [Entitic mass] 31.8 pg Normal 26.0-34.0 [facility] Comment on above: Performed By: #### M G, ETOH, CH8, HEPATIC #### S PATHOLOGY LABORATORY [address] [place], MCHC (RBC) [Mass/Vol] 34.0 g/dL Normal 32.0-35.9 [facility] Comment on above: Performed By: #### M G, ETOH, CH8, HEPATIC #### S PATHOLOG[facility] LABORATORY [address] [place], MCV (RBC) [Entitic vol] 93 fL Normal 80-100 [facility] Comment on above: Performed By: #### M G, ETOH, CH8, HEPATIC #### S PATHOLOG[facility] LABORATORY [address] [place], Platelet mean volume (Bld) [Entitic vol] 7.3 fL Low 7.5-11.2 [facility] Comment on above: Performed By: #### M G, ETOH, CH8, HEPATIC #### [facility] PATH[facility] LABORATORY [address] [place], Platelets (Bld) [#/Vol] 334 10*3/uL Normal 150-400 [facility] Comment on above: Performed By: #### M G, ETOH, CH8, HEPATIC #### S PATHOLOGY LABORATORY [address] [place], RBC (Bld) [#/Vol] 4.03 10*6/uL Low 4.50-5.90 [facility] Comment on above: Performed By: #### M G, ETOH, CH8, HEPATIC #### [facility] [address] [place], [place], WBC (Bld) [#/Vol] 10.3 10*3/uL Normal 4.5-11.5 [facility] Comment on above: Performed By: #### M G, ETOH, CH8, HEPATIC #### [facility] [address] [place], [place], Care Plan Noteon 01-30-2021 [place] Worker Authentication Interface Message Text Problem: Routine Care: Goal: Patient care will be managed and maintained throughout hospital stay per unit specific routine care procedure Outcome: Progressing- Routine NCCU care in place Problem: Altered Neurological Status: Goal: Optimal neurological status will be maintained or regained Outcome: Progressing- Q2 neuro checks in place, see psychiatric, notify DIVISION CONTROLLER with any changes in assessment Problem: Alteration in Respiratory Status: Goal: Achieve Optimal Respiratory Status with Minimal Ventilatory/Oxygen Support Outcome: Progressing - Nasal cannula-2L, denies sob, ongoing assessment Problem: VTE Prophylaxis: Goal: Will be free of DVT Outcome: Progressing- SCD's in place, ongoing bed progressive mobility Problem: Safety: Goal: Patient will remain free of falls during hospital stay Outcome: Progressing - routine NCCU fall and safety precautions in place Goal: Free from injury during hospitalization Outcome: Progressing Problem: Discharge Planning: Goal: Discharge needs of the adult patient will be met Outcome: Progressing - ongoing discussion with NCCU team regarding POC and GOC Problem: Acute Pain: Goal: Acceptable level of pain which allows the patient to achieve functional outcome goals Outcome: Progressing- denies pain so far this shift, ongoing assessment Problem: Impaired Skin Integrity: Goal: Skin integrity will improve and/or be maintained Outcome: Progressing - q2 turns, turns well in bed, skin care precautions in place Problem: Restraint: Goal: Remain safe while in restraints and once discontinued 01/30/2021 0553 by Sammy Benitez RN Outcome: Completed- Restraints Dc'ed yesterday, calm and follows commands Normal [facility] GLUCOSE, FINGERSTICK-IN OFFI CEon 01-30-2021 Glucose [Mass/Vol] 95 mg/dL Normal 68-[address] [facility] Comment on above: Result Comment: Ayaka tolentino RN, APN, MD Performed By: #### 8 [id number] #### NURSING GLUCOSE PROGRAM [address] [place] [address], [address] Glucose [Mass/Vol] 102 mg/dL Normal 68-[address] [facility] Comment on above: Performed By: #### M G, ETOH, CH8, HEPATIC #### [facility] [address] [place] [address], Glucose [Mass/Vol] 84 mg/dL Normal 68-[address] [facility] Comment on above: Performed By: #### 8 2948 #### NURSING GLUCOSE PROGRAM [address] [place], [address] Glucose [Mass/Vol] 89 mg/dL Normal 68-[address] [facility] Comment on above: Performed By: #### M G, ETOH, CH8, HEPATIC #### [facility] [address] [place] [address], Glucose [Mass/Vol] 126 mg/dL High 68-[address] [facility] Comment on above: Result Comment: Ayaka tolentino RN, APN, MD Performed By: #### M G, ETOH, CH8, HEPATIC #### [facility] [address] [place] [address], MAGNESIUMon 01-30-2021 Magnesium [Mass/Vol] 1.9 mg/dL Normal 1.6-2.[address] [facility] Comment on above: Performed By: #### M G, ETOH, CH8, HEPATIC #### [facility] [address] [place] [address], PHOSPHORUSon 01-30-2021 Phosphate [Mass/Vol] 3.4 mg/dL Normal 2.5-4.[address] [facility] Comment on above: Performed By: #### M G, ETOH, CH8, HEPATIC #### [facility] [address] [place] [address], Progress Noteson 01-30-2021 [employer] Worker Authentication Interface Message Text 01/30/21 1309 Belongings AND Valuables Belongings With patient Valuables With patient Dentures, wallet, cell phone, belongings sent with patient on transfer to . 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 Given Narcan by EMS without response. Noted to have R gaze deviation. Taken by EMS to [facility], where he was intubated for altered mental status with pH 7.14. Lactate 8.8, BG 250s. CTH reportedly without acute finding....stable encephalomalacia within the lateral L temporal lobe. ETOH <5, tox screen + THC. Transferred to [facility] for further evaluation. Admitted to MICU. Seizure activity on arrival to [facility] described as myoclonic jerking in all extremities, which aborted with Propofol. Neurology consulted, EEG with L sided sharp wave. Keppra continued at 1g BID. Patient transferred to NCCU for management of status epilepticus. Events since prior visit: - no acute events overnight - IVF continued for slight SANDRA Today's ROS: Neuro: denies headaches Eyes: endorses mild blurry vision CV: denies chest pain Pulm: denies SOB Vital sign ranges over the past 24 hours (retrieved 01/30/2021 at 9:51 AM): Tmax (24 hours): 99.68 ???F (37.6 ???C) Pulse Av.6 Min: 56 Max: 90 Systolic (24hrs), Av , Min:96 , Max:147 Diastolic (24hrs), Av, Min:52, Max:83 MAP (mmHg) Av.2 mmHg Min: 68 mmHg Max: 95 mmHg Resp Av.8 Min: 13 Max: 20 SpO2 Av.9 % Min: 94 % Max: 98 % Most Recent Ventilator Settings: FiO2 (%): 40, Vt Set (Tidal Volume): 450 mL Intake/Output Summary (Last 24 hours) at 01/30/2021 0951 Last data filed at 01/30/2021 0800 Gross per 24 hour Intake 1723.1 ml Output 2135 ml Net -411.9 ml Current Facility-Administered Medications: * [START ON 01/31/2021] folic acid 1 mg tablet, 1 mg, Oral, Daily, Nasra Echols APRN-CNP * cerovite jr 1 Tablet oral chew tab, 1 Tablet, Oral, Daily, Nasra Echols APRN-CNP * lactated ringers iv infusion, , Intravenous, Continuous, Barbra Coleman APRN-CNP, Last Rate: 75 mL/hr at 01/30/21 0700, Rate Verify at 01/30/21 0700 * docusate sodium (COLACE) 100 mg capsule, 100 mg, Oral, 2x Daily, Barbra Coleman APRN-CNP, 100 mg at 01/30/21 0937 * senna (SENOKOT) 8.6 mg tablet, 8.6 mg, Oral, At Bedtime, Barbra Coleman APRN-CNP, 8.6 mg at 01/29/217 * levETIRAcetam in NaCl 100 mL (KEPPRA) ivpb 1,500 mg 100 mL, 1,500 mg, Intravenous, Every 12 hours, Sangeeta Deng APRN-CNP, Last Rate: 400 mL/hr at 01/30/21 0009, 1,500 mg at 01/30/21 0009 * vitamin B-1 (thiamine) 500 mg in dextrose 5 % 100 mL IVPB, 500 mg, Intravenous, 2x Daily, Last Rate: 100 mL/hr at 01/30/2137, 500 mg at 01/30/21936 FOLLOWED BY [START ON 02/01/2021] vitamin B-1 (thiamine) injection 100 mg, 100 mg, Intravenous Push, Daily, Barbra Coleman APRN-CNP * dextrose 12.5 g injection, 12.5 g, Intravenous Push, PRN OR glucagon (GLUCAGEN) 1 mg injection, 1 mg, Subcutaneous, PRN OR dextrose (GLUTOSE) 15 g of glucose gel, 15 g of glucose, Buccal, PRN OR dextrose (GLUTOSE) 30 g of glucose gel, 30 g of glucose, Buccal, PRN, Deja Wagner MD * glycerin-hypromellose- (ARTIFICIAL TEARS) 1 Drop ophthalmic solution SOLN, 1 Drop, Both Eyes, Every 4 hours, Deja Wagner MD, 1 Drop at 01/30/21 0536 * enoxaparin (LOVENOX) 40 mg/0.4 mL injection 40 mg, 40 mg, Subcutaneous, Daily, Deja Wagner MD, 40 mg at 01/30/21 0937 Exam Neurologic: Awake and alert Slow to respond at times Oriented to self and year. Confused to hospital Cranial Nerves Fundoscopic: not performed Vision: responds to threat bilaterally Pupils: 3 mm and reactive bilaterally Spontaneous gaze: no deviation Facial motor function: symmetric Tongue midline Motor Tone: normal in all extremities Spontaneous abnormal movements: absent BUE: AG / following commands BLE: AG / following commands General: appears at stated age Head: normocephalic, atraumatic Neck: supple Eyes/orbits: no scleral icterus, edema, injection Mucous membranes: pink and moist Lungs: clear to auscultation Heart: regular rate and rhythm Abdomen: soft, nondistended Extremities: no joint deformity, joint redness, joint swelling Peripheral pulses: palpable radial bilaterally Skin: no rash or bruising Lines/Drains/Tubes: PIV, Art line Labs: CBC (last 3 years, up to 5 values) WBC RBC Hgb Hct MCV RDW Plt 01/30/21 0022 10.3 4.03 12.8 37.6 93 14.9 334 01/29/21 0131 8.5 3.99 12.4 36.8 92 14.9 312 01/28/21 0125 14.0 4.27 13.3 39.4 92 14.5 319 Basic Metabolic Panel Na K Cl CO2 Gap Glu BUN Cr Ca 01/30/21 0022 139 4.0 106 27 10 99 <3 0.72 8.3 01/29/21 0130 139 3.8 109 25 9 92 <3 0.58 7.7 01/28/21 0125 135 4.0 Comment: Hemolysis present 107 24 8 93 3 0.42 7.6 Glucose (mg/dL) Date Value 01/30/2021 99 01/28/2021 Negative Glucose, P (more content not included)... Normal [facility] Transfer Noteon 01-30-2021 [place] Worker Authentication Interface Message Text Transfer of Care Note: HPI: 50M w/ a PMH of seizures, back pain, ETOH abuse presents 01/27 as a transfer from [facility] with status epilepticus. EMS initially called for patient sitting in car with seizure activity. Found unresponsive, given naloxone without response. Glucose 85, taken to [facility]. Acidotic (7.14) intubated for airway protection, given 1 gm Keppra, lactate 8.8 --> transferred via [facility] to [facility]-MICU. Serum ETOH Negative. Tox screen + THC, vEEG started. - NC Q4. Keppra 1.5 BID. Hold topiramate. CIWA. Thiamine / folate. - SBP 100-160. - Extubated 01/29. NC 2L. - Reg diet. Colace / senna / miralax. SSI / MV - Voiding. SANDRA Cr 0.72 (0.3-0.4 baseline) - SCD / LVX *Outpatient follow up: [ ] follow up in Epilepsy clinic here - no driving for 6 months Please call with any questions or concerns. Report called to Med Team at 1210 Nasra Echols APRN-[facility] Neurocritical Care Service Pager: [phone] [address] [facility] AMMONIAon 01-29-2020 AMMO 28 umol/L Normal 11-35 [facility] Comment on above: Performed By: #### M G, ETOH, CH8, HEPATIC #### [facility] [address] [place] [address], BASIC METABOLIC PANELon 01-18 Anion gap [Moles/Vol] 9 mmol/L Normal 5-13 [facility] Comment on above: Performed By: #### M G, ETOH, CH8, HEPATIC #### [facility] [address] [place], [place], Calcium [Mass/Vol] 7.7 mg/dL Low 8.4-10.[address] [facility] Comment on above: Performed By: #### M G, ETOH, CH8, HEPATIC #### [facility] [address] [place] [address], Chloride [Moles/Vol] 109 mmol/L Normal 97-111 [facility] Comment on above: Performed By: #### M G, ETOH, CH8, HEPATIC #### [facility] [address] [place], [place], CO2 [Moles/Vol] 25 mmol/L Normal 21-30 [facility] Comment on above: Performed By: #### M G, ETOH, CH8, HEPATIC #### [facility] [address] [place], [place], Creatinine [Mass/Vol] 0.58 mg/dL Low 0.80-1.30 [facility] Comment on above: Performed By: #### M G, ETOH, CH8, HEPATIC #### [facility] [address] [place], [place], ESTIMATED GFR (CKD-EPI) 120 mL/min/1.73sqm Normal >=60 [facility] Comment on above: Performed By: #### M G, ETOH, CH8, HEPATIC #### [facility] [address] [place] [address], Glucose [Mass/Vol] 92 mg/dL Normal 68-110 [facility] Comment on above: Performed By: #### M G, ETOH, CH8, HEPATIC #### [facility] [address] [place], [place], Potassium [Moles/Vol] 3.8 mmol/L Normal 3.3-5.3 [facility] Comment on above: Performed By: #### M G, ETOH, CH8, HEPATIC #### [facility] [address] [place], Sodium [Moles/Vol] 139 mmol/L Normal 135-148 [facility] Comment on above: Performed By: #### M G, ETOH, CH8, HEPATIC #### [facility] [address] [place], [place], Urea nitrogen [Mass/Vol] mg/dL Low 8-22 [facility] Comment on above: Performed By: #### M G, ETOH, CH8, HEPATIC #### [facility] [address] [place] [address], BLOOD GAS, ARTERIALon 2020 CR HANNAH 2.2 mmol/L High -2.0-2.0 [facility] Comment on above: Performed By: #### M G, ETOH, CH8, HEPATIC #### [facility] [address] [place], [place], CR PCO2 39.5 mm Hg Normal 35.0-45.0 [facility] Comment on above: Performed By: #### M G, ETOH, CH8, HEPATIC #### [facility] [address] [place], [place], CR PHA 7.434 Normal 7.35-7.45 [facility] Comment on above: Performed By: #### M G, ETOH, CH8, HEPATIC #### [facility] [address] [place], [place], CR PO2 139 mm Hg High 80-100 mm Hg [facility] Comment on above: Performed By: #### M G, ETOH, CH8, HEPATIC #### [facility] [address] [place], [place], FIO2 (CATEGORY) 40% Normal [facility] Comment on above: Performed By: #### M G, ETOH, CH8, HEPATIC #### [facility] [address] [place], [place], HCO3 (Bld) [Moles/Vol] 26 mmol/L Normal 22-28 [facility] Comment on above: Performed By: #### M G, ETOH, CH8, HEPATIC #### [facility] [address] [place], [place], MODE Vent Normal [facility] Comment on above: Performed By: #### M G, ETOH, CH8, HEPATIC #### [facility] [address] [place], [place], Oxygen saturation in Blood 99.3 % Normal >=95.[address] [facility] Comment on above: Performed By: #### M G, ETOH, CH8, HEPATIC #### [facility] [address] [place], [place], CR HANNAH 0.5 mmol/L Normal -2.0-2.0 [facility] Comment on above: Performed By: #### M G, ETOH, CH8, HEPATIC #### [facility] [address] [place] [address], CR PCO2 48.8 mm Hg High 35.0-45.0 [facility] Comment on above: Performed By: #### M G, ETOH, CH8, HEPATIC #### [facility] [address] [place] [address], CR PHA 7.349 Low 7.35-7.45 [facility] Comment on above: Performed By: #### M G, ETOH, CH8, HEPATIC #### [facility] [address] [place] [address], CR PO2 89 mm Hg Normal 80-100 mm Hg [facility] Comment on above: Performed By: #### M G, ETOH, CH8, HEPATIC #### [facility] [address] [place] [address], FIO2 (CATEGORY) 40% Normal [facility] Comment on above: Performed By: #### M G, ETOH, CH8, HEPATIC #### [facility] [address] [place] [address], HCO3 (Bld) [Moles/Vol] 26 mmol/L Normal 22-28 [facility] Comment on above: Performed By: #### M G, ETOH, CH8, HEPATIC #### [facility] [address] [place] [address], MODE Vent Normal [facility] Comment on above: Performed By: #### M G, ETOH, CH8, HEPATIC #### [facility] [address] [place] [address], Oxygen saturation in Blood 97.2 % Normal >=95.1 [facility] Comment on above: Performed By: #### M G, ETOH, CH8, HEPATIC #### [facility] [address] [place] [address], COMPLETE BLOOD COUNTon 01-29 Erythrocyte distribution width (RBC) [Ratio] 14.9 % High 11.5-14.5 [facility] Comment on above: Performed By: #### 8 2948 #### NURSING GLUCOSE PROGRAM [address] [place] [address], Hematocrit (Bld) [Volume fraction] 36.8 % Low 41.0-53.0 [facility] Comment on above: Performed By: #### 8 2948 #### NURSING GLUCOSE PROGRAM [address] [place], [address] Hemoglobin (Bld) [Mass/Vol] 12.4 g/dL Low 13.9-16.[address] [facility] Comment on above: Performed By: #### 8 2948 #### NURSING GLUCOSE PROGRAM [address] [place], [address] MCH (RBC) [Entitic mass] 31.0 pg Normal 26.0-34.0 [facility] Comment on above: Performed By: #### 8 2948 #### NURSING GLUCOSE PROGRAM [address] [place] [address], [address] MCHC (RBC) [Mass/Vol] 33.6 g/dL Normal 32.0-35.9 [facility] Comment on above: Performed By: #### 8 2948 #### NURSING GLUCOSE PROGRAM [address] [place] [address], [address] MCV (RBC) [Entitic vol] 92 fL Normal 80-100 [facility] Comment on above: Performed By: #### 8 2948 #### NURSING GLUCOSE PROGRAM [address] [place], [address] Platelet mean volume (Bld) [Entitic vol] 7.0 fL Low 7.5-11.[address] [facility] Comment on above: Performed By: #### 8 2948 #### NURSING GLUCOSE PROGRAM [address] [place], [address] Platelets (Bld) [#/Vol] 312 10*3/uL Normal 150-400 [facility] Comment on above: Performed By: #### 8 2948 #### NURSING GLUCOSE PROGRAM [address] [place], [address] RBC (Bld) [#/Vol] 3.99 10*6/uL Low 4.50-5.90 [facility] Comment on above: Performed By: #### 8 2948 #### NURSING GLUCOSE PROGRAM [address] [place], [address] WBC (Bld) [#/Vol] 8.5 10*3/uL Normal 4.5-11.5 [facility] Comment on above: Performed By: #### 8 2948 #### NURSING GLUCOSE PROGRAM [address] [place], [address] CREATINE KINASEon 01-29-2021 CK [Catalytic activity/Vol] 543 U/L High 57-374 [facility] Comment on above: Performed By: #### M G, ETOH, CH8, HEPATIC #### [facility] [address] [place], [address] Care Plan Noteon 01-29-2021 [place] Worker Authentication Interface Message Text Problem: Routine Care: Goal: Patient care will be managed and maintained throughout hospital stay per unit specific routine care procedure Outcome: Progressing Problem: Altered Neurological Status: Goal: Optimal neurological status will be maintained or regained Outcome: Progressing Problem: Alteration in Respiratory Status: Goal: Achieve Optimal Respiratory Status with Minimal Ventilatory/Oxygen Support Outcome: Progressing Problem: VTE Prophylaxis: Goal: Will be free of DVT Outcome: Progressing Problem: Safety: Goal: Patient will remain free of falls during hospital stay Outcome: Progressing Goal: Free from injury during hospitalization Outcome: Progressing Problem: Discharge Planning: Goal: Discharge needs of the adult patient will be met Outcome: Progressing Problem: Acute Pain: Goal: Acceptable level of pain which allows the patient to achieve functional outcome goals Outcome: Progressing Problem: Impaired Skin Integrity: Goal: Skin integrity will improve and/or be maintained Outcome: Progressing Problem: Restraint: Goal: Remain safe while in restraints and once discontinued Outcome: Progressing Normal [facility] [place] Worker Authentication Interface Message Text Problem: Altered Neurological Status: Goal: Optimal neurological status will be maintained or regained Outcome: Not Progressing Note: Patient still not following commands, neuro checks q 2 Problem: Discharge Planning: Goal: Discharge needs of the adult patient will be met Outcome: Not Progressing Note: Working towards D/C Problem: Routine Care: Goal: Patient care will be managed and maintained throughout hospital stay per unit specific routine care procedure Outcome: Progressing Note: Managed per unit protocol -moved to NCCU Problem: Alteration in Respiratory Status: Goal: Achieve Optimal Respiratory Status with Minimal Ventilatory/Oxygen Support Outcome: Progressing Note: Fio2 decreased Problem: VTE Prophylaxis: Goal: Will be free of DVT Outcome: Progressing Note: SCDs ordered and on patient Problem: Safety: Goal: Patient will remain free of falls during hospital stay Outcome: Progressing Note: Fall score calculated, prevention in place Goal: Free from injury during hospitalization Outcome: Progressing Problem: Acute Pain: Goal: Acceptable level of pain which allows the patient to achieve functional outcome goals Outcome: Progressing Note: Nonverbal pain scale used Problem: Impaired Skin Integrity: Goal: Skin integrity will improve and/or be maintained Outcome: Progressing Note: Skin assessed with 2 nurses Problem: Restraint: Goal: Remain safe while in restraints and once discontinued Outcome: Progressing Note: Q2 hour restraint checks Normal [facility] Consultson 01-29-2021 [place] Worker Authentication Interface Message Text Nutrition consult for tube feed reqs. Please see nutrition note by Edu Curtis yesterday 01/28/21 with tube feed reqs. Page with questions. Dari Luna MS, RD, WEB DEVELOPER, LD Personal Pager: [phone] Nutrition Carton Stenciler Pager (evenings/weekends): [phone] Normal [facility] [employer] [place] Worker Authentication Interface Message Text OCCUPATIONAL THERAPY CHART REVIEW Name: Jerman Poon Age/sex: 50 year old male : 1970 Unit: Room: [facility] Service: Neuro ICU Admit Date: 01/27/2021 OT Consult: 01/29/2021 Reason for Admit: Presented to OSH unresponsive Diagnosis: Status Epilepticus Procedures this admit: None at this time. Precautions/Activity Order: High risk falls, seizure precautions, Non violent restraints: Soft wrist/ankles x 4, mittens Imagin01/28/2021 CT facial bone ??? No acute facial fracture or retrobulbar hematoma. ??? Remote left facial fractures with intact hardware 01/28/2021 EEG ???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 Negative for abdominal pain. Genitourinary: Negative for difficulty urinating. Musculoskeletal: Positive for neck pain. Neurological: Positive for tremors and headaches. Negative for dizziness and weakness. Psychiatric/Behavioral: Positive for agitation. The patient is not nervous/anxious. OBJECTIVE: BP 111/77 Pulse 100 Resp 16 Ht 5' 10 (1.78m) Wt 178 lb (80.7kg) SpO2 98% BMI 25.54 kg/(m2). Physical Exam Constitutional: He is well-developed, well-nourished, and in no distress. HENT: Head: Normocephalic and atraumatic. Left Ear: No hearing normal. Eyes: Conjunctivae and EOM are normal. Cardiovascular: Normal rate. Pulmonary/Chest: Effort normal. Neurological: He is alert. Skin: Skin is warm and dry. Psychiatric: His speech is normal. Mood, memory, affect and judgment normal. Neurological Exam Mental Status Alert. Oriented to person, place, time and situation. Speech is normal. Language is fluent with no aphasia. Able to name objects and repeat. Cranial Nerves CN III, IV, : Extraocular movements intact bilaterally. Right pupil: 2 mm. Left pupil: 2 mm. CN VII: Full and symmetric facial movement. CN VIII: Left: Hearing is decreased. Motor Normal muscle bulk throughout. Normal muscle tone. Gait Casual gait is normal including stance, stride, and arm swing. Data Review IMAGING STUDIES: CT BRAIN WO [facility] on 06/20/2019: IMPRESSION: Interval decrease in size of the intraparenchymal hemorrhage and surrounding vasogenic edema in the left temporal operculum and temporal lobe and associated mass effect, when compared to most recent prior CT. Interval decrease in size of the 1-2 mm thick posterior parafalcine subdural hematoma, when compared to most recent prior CT. Interval resolution of the intraventricular hemorrhage in the occipital horns of the bilateral ventricles. Personal review of medical records: I reviewed with the patient, history, physical exam, the images and the chart. ASSESSMENT/PLAN 1. Intracranial hemorrhage (HCC) 49-year-old gentleman presented with left posterior temporal/parietal hematoma, has past history of seizures, but none since discharge. Was seen wondering around street by neighbors, and then subsequently found down. History of EtOH abuse. He is doing much better neurologically since the time of his discharge, his aphasia largely resolved. His partner Sahil states that he only mixes up a words when he is tired. The patient reports increased fatigue and very minor headaches. They inquired about returning to work. 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 #1 CT brain is reviewed today and shows no acute findings. Follow-up in neurosurgery on as-needed basis #2 given he has decreased hearing in the left ear and suggestion of temporal bone fracture on initial exam, referral to ENT for audiology evaluation and follow-up is made today. #3 he has past history of seizures with a possible seizure prior to last admission. He is currently not on any antiepileptics. 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 I advised him that he is not released for driving today. I am sending a referral to occupational therapy to perform a driving evaluation and evaluation of visual-spatial abilities. In addition, I am sending a referral to neurology to determine his hist of seizures and assess for need of termination clerk antiepileptic medications. - CT BRAIN WO IVCON; Future - CONSULT TO ROLLER CLEANER; Future 2. Ruptured tympanic membrane, left As above - CONSULT TO ENT; Future Chavez Bennett MD This note was partially generated using [employer] voice recognition system, and there may be some incorrect words, spellings, and punctuation that were not noted in checking the note before saving. Normal [facility] Histoplasma Agon 06-19-2019 Histoplasma Ag None detected. Normal [place] [facility] Comment on above: Result Comment: (NOT E) Reference interval: None Detected Results reported as ng/mL in 0.4 - 19.0 ng/mL range. Results above the limit of detection but below 0.4 ng/mL are reported as 'Positive, Below the Limit of Quantification'. Results above 19.0 ng/mL are reported as 'Positive, Above the Limit of Quantification'. This test was developed and its performance characteristics determined by [facility]. It has not been cleared or approved by the FDA; however, FDA clearance or approval is not currently required for clinical use. The results are not intended to be used as the sole means for clinical diagnosis or patient management decisions. Test performed by [facility], [address] [place] [address], [place] [address] Performing Laboratory: Performed By: #### P T #### [facility] [address] [place], [place] [address] (ADH)Arg, Vasopres.on 2018 (ADH)Arg, Vasopres. 7.6 High [facility] Comment on above: Result Comment: Refe rence range: 0.0 to 6.9 Unit: pg/mL (NOTE) INTERPRETIVE INFORMATION: Arginine Vasopressin Hormone Test developed and characteristics determined by [facility] See Compliance Statement D: GPNX/ Performed by [facility] [employer] [address] [place] [id number] [email or web address], Francisco Rainey MD, Lab. Director Performing Laboratory: Performed By: #### P T #### [facility] [address] [place] [address] Aspergillus Agon 06-18-2019 Aspergillus Ag <0.50 Normal [facility] Comment on above: Result Comment: Inde x Values are Interpreted as Follows: Negative specimens <0.50 Positive specimens >=0.50 Performing Laboratory: [facility] [address] [place] [address] Performed By: #### P T #### [place] [address] V-Z-Rlnwbuco 06-18-2019 Glucose [Mass/Vol] SEE BELOW Normal [facility] Comment on above: Result Comment: Catrachito itell Assay Negative Reference range: Negative (NOTE) INTERPRETIVE INFORMATION: (1,3)-djzp-C-raxpyh (Fungitell) Less than 31 pg/mL ................... Negative 31-59 pg/mL .......................... Negative 60-79 pg/mL .......................... Indeterminate Greater than or equal to 80 pg/mL .... Positive The Fungitell test is indicated for presumptive diagnosis of fungal infection and should be used in conjunction with other diagnostic procedures. This test does not detect certain fungal species such as Cryptococcus, which produce very low levels of (1,3)-oefd-A-femuzd. This test will not detect the zygomycetes, such as Absidia, Mucor, and Rhizopus, which are not known to produce (1,3)-igxr-G-qnsoxy. In addition, the yeast phase of Blastomyces dermatitidis produces little (1,3)-cddm-X-ypgfpa and may not be detected by the assay. Performed by [facility] [address] [place] [id number] [email or web address], Francisco Rainey MD, Lab. Director Fungialbertoll Comments <31 Unit: pg/mL Performing Laboratory: Performed By: #### P T #### [place] [address] CASE MANAGEMon 06-18-2019 CASE MANAGEM HNO ID: [id number] Author: Sayda Rand (Sw) Service: ? Author Type: Large Sheetfed Press Operator Type: Care Mgt Progress Note Filed: 06/18/2019 10:56 AM Note Text: CARE MANAGEMENT DISCHARGE NOTE SERVICE DATE: 06/18/2019 SERVICE TIME: 10:46 AM LOS: 17 days Admission Date: 06/01/2019 DISCHARGE ARRANGEMENT (list agency and phone number) Home CAREGIVER ASSESSMENT: Caregiver is ready, willing and able to meet the patient's needs as recommended by the inter-professional team? Yes Patient's transition needs and plan for meeting these needs: patients significant other Sahil Does the patient have an acute stroke diagnosis, or has the patient had a stroke during this admission? No HANDOFF COMMUNICATION: Sahil TRANSPORTATION ARRANGEMENTS: Sahil signifiant other is coming in a cab ADDITIONAL CONTACT RESOURCES: resources for alcohol abuse and inpatient facilities Patient discharge plan is home with significant other Sahil who does not work states he can provide 24 hour care for patient. Sahil is in the process of making a PCP appointment for patient close to home with [facility]. Patient does have HCAP and is covered 100%. Sahil will follow up with medicaid application that [employer] mailed to them. Indigent medications will be provided for patient. Patient will be transported by cab with significant other Sahil. SIGNATURE: FITZ Berman PATIENT NAME: Rhoda Poon DATE: June 18, 2019 TIME: 10:46 AM PAGER/CONTACT #: [phone] Normal [facility] Hemogram/Diffon 06-18-2019 Abs Immature Grans 0.14 thou/cmm High 0.00-0.05 [facility] Comment on above: Performed By: #### P T #### [facility] [address] [place] [address] Abs Neut (ANC) 8.36 thou/cmm High 1.78-5.38 [facility] Comment on above: Performed By: #### P T #### [facility] [address] [place] [address] Abs. Baso 0.11 thou/cmm High 0.01-0.08 [facility] Comment on above: Performed By: #### P T #### [place] [address] Abs. [place] 1.01 thou/cmm High 0.30-0.82 [facility] Comment on above: Performed By: #### P T #### [place] [address] Basophils/100 WBC (Bld) 0.9 % Normal [facility] Comment on above: Performed By: #### P T #### [facility] [address] [place] [address] Eosinophils (Bld) [#/Vol] 0.31 thou/cmm Normal 0.04-0.54 [facility] Comment on above: Performed By: #### P T #### [place] [address] Eosinophils/100 WBC (Bld) 2.6 % Normal [facility] Comment on above: Performed By: #### P T #### [facility] [address] [place] [address] Immature Grans 1.20 % Normal [facility] Comment on above: Performed By: #### P T #### [place] [address] Lymphocytes (Bld) [#/Vol] 2.14 thou/cmm Normal 0.84-2.85 [facility] Comment on above: Performed By: #### P T #### [facility] [address] [place], [place] [address] Lymphocytes/100 WBC (Bld) 17.7 % Normal [facility] Comment on above: Performed By: #### P T #### [facility] [address] [place] [address] Monocytes/100 WBC (Bld) 8.4 % Normal [facility] Comment on above: Performed By: #### P T #### [facility] [address] [place] [address] Seg Neutrophil 69.2 % Normal [facility] Comment on above: Performed By: #### P T #### [facility] [address] [place] [address] Erythrocyte distribution width (RBC) [Ratio] 13.8 % Normal 11.6-14.4 [facility] Comment on above: Performed By: #### P T #### [facility] [address] [place] [address] Hematocrit (Bld) [Volume fraction] 39.5 % Low 40.1-51.0 [facility] Comment on above: Performed By: #### P T #### [facility] [address] [place] [address] Hemoglobin (Bld) [Mass/Vol] 13.2 g/dL Low 13.7-17.5 [facility] Comment on above: Performed By: #### P T #### [facility] [address] [place] [address] MCH (RBC) [Entitic mass] 31.7 pg Normal 25.7-32.2 [facility] Comment on above: Performed By: #### P T #### [facility] [address] [place] [address] MCHC (RBC) [Mass/Vol] 33.4 % Normal 32.3-36.5 [facility] Comment on above: Performed By: #### P T #### [facility] [address] [place] [address] MCV (RBC) [Entitic vol] 94.7 fL Normal 83.2-95.6 [facility] Comment on above: Performed By: #### P T #### [facility] [address] [place], [place] [address] Platelet mean volume (Bld) [Entitic vol] 8.8 fL Normal 8.7-12.0 [facility] Comment on above: Performed By: #### P T #### [facility] [address] [place], [place] [address] Platelets (Bld) [#/Vol] 1038 thou/cmm Critically high 141-365 [facility] Comment on above: Result Comment: Repe ated AND verified Performed By: #### P T #### [address] [address] RBC (Bld) [#/Vol] 4.17 mil/cmm Low 4.63-6.08 [facility] Comment on above: Performed By: #### P T #### [place] [address] RDW SD 48.2 fl High 36.1-45.8 [facility] Comment on above: Performed By: #### P T #### [facility] [address] [place], [place] [address] WBC (Bld) [#/Vol] 12.08 thou/cmm High 4.23-9.07 [facility] Comment on above: Performed By: #### P T #### [place] [address] Histoplasma Ab - CFon 2018 Histoplasma Ab - CF SEE BELOW Normal [facility] Comment on above: Result Comment: Hist o Yeast AB-CF <1:8 DLT8 Dilutions Reference Range: Negative <1:8 Histo Mycelial AB-CF <1:8 DLT8 Dilutions Reference Range: Negative <1:8 Performing Laboratory: [place] [id number] [place] [address] Performed By: #### P T #### [address] [address] NURSING PROGon 06-18-2019 NURSING PROG HNO ID: [id number] Author: Sallie (Rn) GILBERTO Vincent Service: Orthopaedic Surgery Author Type: Registered Nurse Type: Nursing Progress Note Filed: 06/18/2019 10:38 AM Note Text: Patient declined influenza vaccine at this time. Normal [facility] PLAN OF CAREon 06-18-2019 PLAN OF CARE HNO ID: [id number] Author: Lilliana Sen (Pharmacist) Service: Pharmacy Author Type: Pharmacist Type: Plan of Care Filed: 06/18/2019 1:48 PM Note Text: DISCHARGE MEDICATION REVIEW BY PHARMACY Patient Name: Rhoda Poon Account #: Data Unavailable Admission Date: 06/01/2019 Date of Contact: June 18, 2019 Time of Contact: 1:44 PM Medication list was reviewed by a Pharmacist for drug interactions or drug related problems:Yes Below is a summary of pharmacist recommendations discussed with LIP: No Recommendations at this time from Discharge Medication List. Patient was already off the floor prior to medication education. LILLIANA SEN, PHARMACIST June 18, 2019 1:44 PM [id number] Medication List START taking these medications acetaminophen 325 mg tablet Commonly known as: TYLENOL Take 2 tablets by mouth every 6 hours as needed for Pain. aspirin 81 mg chewable tablet 4 tablets by ORAL/FEEDING TUBE route once daily. cefADROxil 500 mg capsule Commonly known as: DURICEF Take 2 capsules by mouth every 12 hours. levoFLOXacin 750 mg tablet Commonly known as: LevaQUIN Take 1 tablet by mouth once daily. Notes to patient: CALL DR SNYDER IF YOU EXPERIENCE ANY PAIN IN THE TENDONS, ESPECIALLY BEHIND YOUR ANKLES. CONTINUE taking these medications amitriptyline 100 mg tablet Commonly known as: ELAVIL Where to Get Your Medications These medications were sent to e- [facility] [place] [address] - [address] [facility] - [phone] [id number] [place] [address] ? aspirin 81 mg chewable tablet ? cefADROxil 500 mg capsule ? levoFLOXacin 750 mg tablet You can get these medications from any pharmacy You don't need a prescription for these medications ? acetaminophen 325 mg tablet [facility] PLAN OF CARE HNO ID: [id number] Author: Tammi Sanford (Retail Event Coordinator) Service: Pharmacy Author Type: ? Type: Plan of Care Filed: 06/18/2019 11:00 AM Note Text: NETWORK DIRECTOR BEDSIDE DELIVERY SURVEY 1. Patient to use [facility] Bedside Delivery - YES Insurance Information as follows: 2. Insurance card on file - NO 3. Credit card for payment - N/A Levaquin 750 mg, only had #21 tabs in stock, pt will have a refill of 9 tabs. Duricef 500 mg Aspirin 81 mg Contact Tammi at [phone] or other bedside Tech [phone] with questions prior to discharge No copay Pharmacy Discharge Medication Service: This patient has elected to receive their discharge prescriptions through the [facility] Bedside Prescription Delivery program. The prescriptions are currently being processed. A follow-up note will be entered once the prescriptions have been filled and delivered to the patient. Please contact me with any questions or updates to the patient's discharge medications. Tammi Sanford (Retail Event Coordinator) DCT Contact Info: Extension [phone], or [phone] [facility] PROGRESSon 06-18-2019 PROGRESS HNO ID: [id number] Author: Kat Snyder Service: Infectious Disease Author Type: Physician Type: Progress Notes Filed: 06/18/2019 10:29 AM Note Text: Kat Snyder MD, MS, FACP, FIDSA Division of Infectious Diseses [address] [place] [address] Office: [phone] INFECTIOUS DISEASE CONSULT PROGRESS NOTE SERVICE DATE: 06/18/2019 SERVICE TIME: 10:26 AM Subjective INTERVAL HISTORY: Feels better, denies cough or dyspnea. Smells like cigarette smoke. D/W RN. PERTINENT ROS: Denies fever or chills. Current Facility-Administered Medications Medication Dose Route Frequency - ceFAZolin iv piggyback 2 g in D5W (iso-osmotic) 100 mL (ANCEF) 2 g INTRAVENOUS q 8 HR - aspirin 324 mg chewable tab(s) 324 mg ORAL/FEEDING TUBE DAILY - nicotine 14 mg/24 hr 1 Patch (NICODERM) 1 Patch TRANSDERMAL DAILY And - nicotine -- REMOVE patch OTHER DAILY And - nicotine - verify patch OTHER q 8 H - levoFLOXacin iv piggyback 750 mg in D5W 150 mL (LEVAQUIN) 750 mg INTRAVENOUS DAILY - senna-docusate 8.6-50 mg 1 tablet (SENNA-S) 1 tablet ORAL DAILY - QUEtiapine 50 mg tablet (SEROquel) 50 mg ORAL/FEEDING TUBE BID - melatonin 9 mg tab(s) 9 mg ORAL HS PRN - acetaminophen 975 mg tab(s) (TYLENOL) 975 mg ORAL q 6 H PRN - haloperidol lactate 5 mg injection (HALDOL) 5 mg INTRAVENOUS q 6 H PRN - ipratropium-albuterol 3 mL nebulizer solution (DUONEB) 3 mL INHALATION q 4 H while awake - pill real estate investment analyst (patient-specific) 1 Each Miscell. (Med.Supl.;Non-Drugs) PRN - NaCl 0.9% 10 mL 10 mL INTRAVENOUS q 12 H - NaCl 0.9% 20 mL 20 mL INTRAVENOUS PRN - enoxaparin 30 mg injection (LOVENOX) 30 mg SUBCUTANEOUS BID Objective PHYSICAL EXAM: Vital Signs: BP 139/90 Pulse 91 Temp 36.8 ?C (98.2 ?F) (Oral) Resp 18 Ht 172.7 cm (5' 7.99) Wt 77.3 kg (170 lb 6.7 oz) SpO2 98% BMI 25.92 kg/m? Tmax 37 HEENT moist mouth Lungs CTA anteriorly Heart RRR Abdomen soft, NT, ND Extremities no C/C/E DATA: Diagnostic Tests Reviewed for Today's Visit: WBC 12 Impression/Recommendati ons Active Problems: Bipolar affective disorder (HCC) POA: Yes Assessment AND Plan: Complicates management. SAH (subarachnoid hemorrhage) (HCC) POA: Yes Assessment AND Plan: Per trauma service. Leukocytosis POA: No Assessment AND Plan: Likely multifactorial. Cavitary pneumonia POA: Yes Assessment AND Plan: From MSSA, Enterobacter and Pseudomonas. Continue PO levaquin 750 mg daily and duricef 1 g PO bid until infection is gone. Follow up with me in office in 2 weeks, will need another CT chest in about 4 weeks. Informed him about possible tendonitis with quinolones, told him to call me if he develops any pain in tendons. Tobacco abuse POA: Yes Assessment AND Plan: Complicates management, makes resolution of pneumonia slower. Advised cessation. SIGNATURE: Kat Snyder MD, MS, FACP, MONIKASA PATIENT NAME: Rhoda Poon DATE: June 18, 2019 TIME: 10:24 AM PAGER/CONTACT #: [phone] [facility] PROGRESS HNO ID: [id number] Author: Ciro Molina (Pa) Service: Trauma Author Type: Physician Electrolysis Needle Operator Type: Progress Notes Filed: 06/18/2019 7:21 AM Note Text: Trauma Surgery Progress Note SERVICE DATE: 06/18/2019 SUBJECTIVE: NAEON. Patient states that he feels great. Ready for discharge home today. Denies cp or sob. No chills or sweats. No focal complaints of pain. OBJECTIVE: Vitals: Temp (24hrs), Av.7 ?C (98 ?F), Min:36.2 ?C (97.2 ?F), Max:37 ?C (98.6 ?F) BP 131/90 Pulse 74 Temp 36.9 ?C (98.4 ?F) (Oral) Resp 18 Ht 172.7 cm (5' 7.99) Wt 77.3 kg (170 lb 6.7 oz) SpO2 97% BMI 25.92 kg/m? O2 Therapy: Room Air IANDO: Date 06/17/19699 - 06/18/19 0659 06/18/19 07 - 06/19/19 0659 Shift 2955-0761 2664-6988 4590-9083 24 Hour Total 8728-8481 6423-1158 4971-3072 24 Hour Total INTAKE PO 840 366 511 7150 PO 840 738 522 2728 Shift Total 840 165 249 7273 OUTPUT Urine 700 598 894 9810 Void (ml) 700 325 131 6535 Urine Not Saved. 1 x 1 x Shift Total 700 279 582 6392 Weight (kg) 77.3 77.3 77.3 77.3 77.3 77.3 77.3 77.3 MEDICATIONS Current Facility-Administered Medications Medication Dose Route Frequency - ceFAZolin iv piggyback 2 g in D5W (iso-osmotic) 100 mL (ANCEF) 2 g INTRAVENOUS q 8 HR - aspirin 324 mg chewable tab(s) 324 mg ORAL/FEEDING TUBE DAILY - nicotine 14 mg/24 hr 1 Patch (NICODERM) 1 Patch TRANSDERMAL DAILY And - nicotine -- REMOVE patch OTHER DAILY And - nicotine - verify patch OTHER q 8 H - levoFLOXacin iv piggyback 750 mg in D5W 150 mL (LEVAQUIN) 750 mg INTRAVENOUS DAILY - senna-docusate 8.6-50 mg 1 tablet (SENNA-S) 1 tablet ORAL DAILY - QUEtiapine 50 mg tablet (SEROquel) 50 mg ORAL/FEEDING TUBE BID - melatonin 9 mg tab(s) 9 mg ORAL HS PRN - acetaminophen 975 mg tab(s) (TYLENOL) 975 mg ORAL q 6 H PRN - haloperidol lactate 5 mg injection (HALDOL) 5 mg INTRAVENOUS q 6 H PRN - ipratropium-albuterol 3 mL nebulizer solution (DUONEB) 3 mL INHALATION q 4 H while awake - pill real estate investment analyst (patient-specific) 1 Each Miscell. (Med.Supl.;Non-Drugs) PRN - NaCl 0.9% 10 mL 10 mL INTRAVENOUS q 12 H - NaCl 0.9% 20 mL 20 mL INTRAVENOUS PRN - enoxaparin 30 mg injection (LOVENOX) 30 mg SUBCUTANEOUS BID Labs: Recent Labs 06/18/19 0334 06/17/19 0325 WBC 12.08* 12.00* HB 13.2* 13.1* HCT 39.5* 39.5* PLT 1,038* 1,117* Exam: GENERAL: No distress, alert, cooperative NEURO: AANDOx1-2, CN II-XII grossly intact HEENT: normocephalic, atraumatic LUNGS: Unlabored breathing on RA. Lungs CTAB. No harsh lung sounds. SpO2 97% CARDIAC: Regular rate, rhythm and BP as above ABDOMEN: Soft, non-tender, no rebound or guarding EXTREMITIES: DHALIWAL, No deformities, No edema SKIN: Skin color, texture, turgor normal, No rashes or lesions ASSESSMENT AND PLAN: Active Hospital Problems Diagnosis Date Noted - Fever 06/13/2019 - Leukocytosis 06/13/2019 - Cavitary pneumonia 06/13/2019 - Acute respiratory failure with hypercapnia ([facility]) 06/07/2019 - Malnutrition of mild degree ([facility]) 06/05/2019 - DTs (delirium tremens) ([facility]) 06/02/2019 - SAH (subarachnoid hemorrhage) ([facility]) 06/02/2019 - Closed fracture of one rib of left side 06/02/2019 - Closed fracture of vault of skull ([facility]) 06/02/2019 - Aphasia 06/02/2019 - Subdural hematoma ([facility]) 06/01/2019 - Bipolar affective disorder ([facility]) 12/21/2012 Overview Note: Diagnosed in ~1989 ? 49 year old male s/p found down (suspected fall) ? Traumatic Injuries: 1. SDH/SAH 2. Non-displaced parietal/temporal fx 3. L 5th rib fx 4. L pulmonary contusion Operations: 1. None Care Plan: 1. PRN pain control 2. Mobilize 3. Continue Levaquin per ID for + respiratory cultures growing Pseudomonas - Ancef added 06/17 or MSSA - F/U with ID in 3 weeks 4. Will need repeat CT chest in 4-6 weeks 5. Blood Cx - No growth - FINAL 6. Seroquel/Melatonin qhs 7. ASA for thrombocytosis 9. Diet: Dysphagia II/Thin liquids per 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 recommendations 10. Pain Regimen: PRN Tylenol 11. Bowel Regimen: Senna-S 12. Labs: 1.) WBC 12.08 from 12.0 2.) Hgb 13.2 from 13.1 13. Bioethics consulted - appreciate recommendations. Prophylaxis: 1. DVT ppx: SCD, LVX Consulted Services and Recommendations: 1. SICU 2. Neurosurgery 3. Bioethics Dispo Plannin. PT/OT recommending Acute Rehab. CM following. Patient will be discharged home today with 24/ care per his friend Sahil. Follow Up Needs: 1. Neurosurgery - timing TBD. 2. ID - Dr. Snyder - 3 weeks SIGNATURE: Ciro Molina PA-C PATIENT NAME: Rhoda Poon DATE: June 18, 2019 TIME: 7:18 AM Pager: see below Trauma Service Pager: For questions or concerns Mon-Fri 6a-5p please page [phone]. After 5pm and on Weekends and Holidays, please page [phone] if in ICU or [phone] if on RNF. Normal [facility] Quantiferon (Rapd TB)on 05-22 Quantiferon (Rapd TB) SEE BELOW Normal [facility] Comment on above: Result Comment: TB N IL 0.04 IU/mL TB1 Ag minus Nil 0.02 <0.35 IU/mL TB2 Ag minus Nil 0.00 <0.35 IU/mL Mitogen minus Nil 0.02 TB Result Indeterminate AB NEGAT Interpretation SEE BELOW A valid QuantiFERON result cannot be determined. Patient sample showed insufficient response to control stimulant. This can be seen in patients with drug or disease induced immunosuppression, but can also be caused by inadequate shaking of samples at time of collection. If clinically indicated, suggest recollecting sample with sufficient agitation. Performing Laboratory: [facility] [address] [place] [address] Performed By: #### P T #### [address] [address] CASE MANAGEMon 06-17-2019 CASE MANAGEM HNO ID: [id number] Author: Sayda Rand (Sw) Service: ? Author Type: Large Sheetfed Press Operator Type: Care Mgt Progress Note Filed: 06/17/2019 2:17 PM Note Text: CARE MANAGEMENT PROGRESS NOTE SERVICE DATE: 06/17/2019 SERVICE TIME: 2:10 PM LOS: 16 days Spoke with Sahil. He is aware that patient will be covered 100% by [employer]. He states he will start setting up patients appointments. He will be transporting patient home. Will approve indigent medications for patient. SIGNATURE: FITZ Berman PATIENT NAME: Rhoda Poon DATE: June 17, 2019 TIME: 2:08 PM PAGER/CONTACT #: [phone] [facility] CASE MANAGEM HNO ID: [id number] Author: Sayda Rand (Sw) Service: ? Author Type: Large Sheetfed Press Operator Type: Care Mgt Progress Note Filed: 06/17/2019 8:28 AM Note Text: CARE MANAGEMENT PROGRESS NOTE SERVICE DATE: 06/17/2019 SERVICE TIME: 8:24 AM LOS: 16 days Spoke with Chinyere from Financial counseling and she stated Sahil patients significant other called and provided financial information. SIGNATURE: FITZ Berman PATIENT NAME: Rhoda Poon DATE: June 17, 2019 TIME: 8:24 AM PAGER/CONTACT #: [phone] [facility] CASE MANAGEM HNO ID: [id number] Author: Sayda Rand (Sw) Service: ? Author Type: Large Sheetfed Press Operator Type: Care Mgt Progress Note Filed: 06/17/2019 8:09 AM Note Text: CARE MANAGEMENT PROGRESS NOTE SERVICE DATE: 06/17/2019 SERVICE TIME: 8:03 AM LOS: 16 days Lukas Rueda denied patient. Patent doesn't have medicaid. Sahil significant other will call for [employer] and fill out paperwork for medicaid. Will continue to work with Sahil for SNF. SIGNATURE: FITZ Berman PATIENT NAME: Rhoda Poon DATE: June 17, 2019 TIME: 8:02 AM PAGER/CONTACT #: [phone] Normal [facility] Hemogram/Diffon 06-17-2019 Abs Immature Grans 0.16 thou/cmm High 0.00-0.05 [facility] Comment on above: Performed By: #### P T #### [facility] [address] [place] [address] Abs Neut (ANC) 7.64 thou/cmm High 1.78-5.38 [facility] Comment on above: Performed By: #### P T #### [place] [address] Abs. Baso 0.14 thou/cmm High 0.01-0.08 [facility] Comment on above: Performed By: #### P T #### [place] [address] Abs. [place] 1.08 thou/cmm High 0.30-0.82 [facility] Comment on above: Performed By: #### P T #### [place] [address] Basophils/100 WBC (Bld) 1.2 % Normal [facility] Comment on above: Performed By: #### P T #### [place] [address] Eosinophils (Bld) [#/Vol] 0.32 thou/cmm Normal 0.04-0.54 [facility] Comment on above: Performed By: #### P T #### [place] [address] Eosinophils/100 WBC (Bld) 2.7 % Normal [facility] Comment on above: Performed By: #### P T #### [place] [address] Erythrocyte distribution width (RBC) [Ratio] 13.7 % Normal 11.6-14.4 [facility] Comment on above: Performed By: #### P T #### [facility] [address] [place], [place] [address] Hematocrit (Bld) [Volume fraction] 39.5 % Low 40.1-51.0 [facility] Comment on above: Performed By: #### P T #### [facility] [address] [place], [place] [address] Hemoglobin (Bld) [Mass/Vol] 13.1 g/dL Low 13.7-17.5 [facility] Comment on above: Performed By: #### P T #### [facility] [address] [place] [address] Immature Grans 1.30 % Normal [facility] Comment on above: Performed By: #### P T #### [facility] [address] [place] [address] Lymphocytes (Bld) [#/Vol] 2.65 thou/cmm Normal 0.84-2.85 [facility] Comment on above: Performed By: #### P T #### [facility] [address] [place], [place] [address] Lymphocytes/100 WBC (Bld) 22.1 % Normal [facility] Comment on above: Performed By: #### P T #### [facility] [address] [place], [place] [address] MCH (RBC) [Entitic mass] 31.6 pg Normal 25.7-32.2 [facility] Comment on above: Performed By: #### P T #### [facility] [address] [place] [address] MCHC (RBC) [Mass/Vol] 33.2 % Normal 32.3-36.5 [facility] Comment on above: Performed By: #### P T #### [facility] [address] [place] [address] MCV (RBC) [Entitic vol] 95.2 fL Normal 83.2-95.6 [facility] Comment on above: Performed By: #### P T #### [facility] [address] [place], [place] [address] Monocytes/100 WBC (Bld) 9.0 % Normal [facility] Comment on above: Performed By: #### P T #### [facility] [address] [place] [address] Platelet mean volume (Bld) [Entitic vol] 8.6 fL Low 8.7-12.0 [facility] Comment on above: Performed By: #### P T #### [facility] [address] [place] [address] Platelets (Bld) [#/Vol] 1117 thou/cmm Critically high 141-365 [facility] Comment on above: Result Comment: Repe ated AND verified Performed By: #### P T #### [facility] [address] [place] [address] RBC (Bld) [#/Vol] 4.15 mil/cmm Low 4.63-6.08 [facility] Comment on above: Performed By: #### P T #### [facility] [address] [place] [address] RDW SD 48.0 fl High 36.1-45.8 [facility] Comment on above: Performed By: #### P T #### [facility] [address] [place], [place] [address] Seg Neutrophil 63.7 % Normal [facility] Comment on above: Performed By: #### P T #### [facility] [address] [place] [address] WBC (Bld) [#/Vol] 12.00 thou/cmm High 4.23-9.07 [facility] Comment on above: Performed By: #### P T #### [facility] [address] [place] [address] PLAN OF CAREon 06-17-2019 PLAN OF CARE HNO ID: [id number] Author: Helen Peters (Retail Event Coordinator) Service: ? Author Type: ? Type: Plan of Care Filed: 06/17/2019 3:02 PM Note Text: NETWORK DIRECTOR BEDSIDE DELIVERY SURVEY 1. Patient to use [facility] Bedside Delivery - YES Insurance Information as follows: 2. Insurance card on file - NO 3. Credit card for payment - N/A Patient elected to use bedside delivery. No prescriptions currently written. Please call pharmacy bedside delivery at [phone] or [phone] when patient has discharge orders and prescriptions are ready to be filled and delivered prior to discharge. Thank you. Helen Peters (Retail Event Coordinator) *indigent form received* Normal [facility] PROGRESSon 06-17-2019 PROGRESS HNO ID: [id number] Author: Kat Snyder Service: Infectious Disease Author Type: Physician Type: Progress Notes Filed: 06/17/2019 10:16 AM Note Text: Kat Snyder MD, MS, FACP, [facility] Division of Infectious Diseses [address] [place] [address] Office: [phone] INFECTIOUS DISEASE CONSULT PROGRESS NOTE SERVICE DATE: 06/17/2019 SERVICE TIME: 10:10 AM Subjective INTERVAL HISTORY: Feels better, wants to go home. PERTINENT ROS: Denies cough, SOB, CP, fever or chills. Current Facility-Administered Medications Medication Dose Route Frequency - nicotine 14 mg/24 hr 1 Patch (NICODERM) 1 Patch TRANSDERMAL DAILY And - nicotine -- REMOVE patch OTHER DAILY And - nicotine - verify patch OTHER q 8 H - levoFLOXacin iv piggyback 750 mg in D5W 150 mL (LEVAQUIN) 750 mg INTRAVENOUS DAILY - senna-docusate 8.6-50 mg 1 tablet (SENNA-S) 1 tablet ORAL DAILY - QUEtiapine 50 mg tablet (SEROquel) 50 mg ORAL/FEEDING TUBE BID - melatonin 9 mg tab(s) 9 mg ORAL HS PRN - acetaminophen 975 mg tab(s) (TYLENOL) 975 mg ORAL q 6 H PRN - haloperidol lactate 5 mg injection (HALDOL) 5 mg INTRAVENOUS q 6 H PRN - ipratropium-albuterol 3 mL nebulizer solution (DUONEB) 3 mL INHALATION q 4 H while awake - aspirin 81 mg chewable tab(s) 81 mg ORAL/FEEDING TUBE DAILY - pill real estate investment analyst (patient-specific) 1 Each Miscell. (Med.Supl.;Non-Drugs) PRN - NaCl 0.9% 10 mL 10 mL INTRAVENOUS q 12 H - NaCl 0.9% 20 mL 20 mL INTRAVENOUS PRN - enoxaparin 30 mg injection (LOVENOX) 30 mg SUBCUTANEOUS BID Objective PHYSICAL EXAM: Vital Signs: BP 141/101 Pulse 114 Temp 37 ?C (98.6 ?F) (Oral) Resp 16 Ht 172.7 cm (5' 7.99) Wt 77.3 kg (170 lb 6.7 oz) SpO2 98% BMI 25.92 kg/m? Tmax 37.1 HEENT moist mouth Lungs CTA bilaterally Heart tachy S1 S2 Abdomen soft, flat, NT Extremities no C/C/E DATA: Diagnostic Tests Reviewed for Today's Visit: WBC 12, sputum 06/06 with Enterobacter, MSSA and Pseudmonas Impression/Recommendati ons Active Problems: Bipolar affective disorder (HCC) POA: Yes Assessment AND Plan: Complicates management. DTs (delirium tremens) ([facility]) POA: Yes Assessment AND Plan: Needs to stop drinking. SAH (subarachnoid hemorrhage) ([facility]) POA: Yes Assessment AND Plan: Per trauma service. Aphasia POA: Yes Assessment AND Plan: Continue IV antibiotics, change to PO when able. Acute respiratory failure with hypercapnia (HCC) POA: No Assessment AND Plan: From pneumonia. Much better. Fever POA: No Assessment AND Plan: None in last 24 h. Leukocytosis POA: No Assessment AND Plan: Trending downwards. Cavitary pneumonia POA: Yes Assessment AND Plan: Sputum with Pseudomonas, MSSA and Enterobacter. Continue IV levaquin and add IV ancef to cover the MSSA. When ready for DC will send out levaquin and duricef, duration is until the cavities are gone. Will need repeat CT chest in 4 weeks, follow up with me in office in 3 weeks when he is discharged. SIGNATURE: Kat Snyder MD, MS, FACP, [facility] PATIENT NAME: Rhoda Poon DATE: June 17, 2019 TIME: 10:09 AM PAGER/CONTACT #: [phone] [facility] PROGRESS HNO ID: [id number] Author: Ciro Molina (Pa) Service: Trauma Author Type: Physician Electrolysis Needle Operator Type: Progress Notes Filed: 06/17/2019 7:45 AM Note Text: Trauma Surgery Progress Note SERVICE DATE: 06/17/2019 SUBJECTIVE: NAEON. No new complaints. Patient inquiring if he'll be discharged home today. Tolerating diet. Mobilizing. OBJECTIVE: Vitals: Temp (24hrs), Av.8 ?C (98.3 ?F), Min:36.4 ?C (97.5 ?F), Max:37.1 ?C (98.8 ?F) BP 132/89 Pulse 85 Temp 36.8 ?C (98.2 ?F) (Oral) Resp 18 Ht 172.7 cm (5' 7.99) Wt 77.3 kg (170 lb 6.7 oz) SpO2 92% BMI 25.92 kg/m? O2 Therapy: Room Air IANDO: Date 06/16/19 07 - 06/17/1958 06/17/19699 - 06/18/19 0659 Shift 2555-9385 7480-6717 0214-6516 24 Hour Total 6570-3030 3526-4489 3190-6707 24 Hour Total INTAKE PO 240 862 579 9275 PO 240 934 039 2316 Shift Total 240 391 270 9472 OUTPUT Urine 250 854 187 6259 Void (ml) 250 374 899 8113 Shift Total 250 264 353 0684 Weight (kg) 77.3 77.3 77.3 77.3 77.3 77.3 77.3 77.3 MEDICATIONS Current Facility-Administered Medications Medication Dose Route Frequency - nicotine 14 mg/24 hr 1 Patch (NICODERM) 1 Patch TRANSDERMAL DAILY And - nicotine - verify patch OTHER q 8 H - levoFLOXacin iv piggyback 750 mg in D5W 150 mL (LEVAQUIN) 750 mg INTRAVENOUS DAILY - senna-docusate 8.6-50 mg 1 tablet (SENNA-S) 1 tablet ORAL DAILY - QUEtiapine 50 mg tablet (SEROquel) 50 mg ORAL/FEEDING TUBE BID - melatonin 9 mg tab(s) 9 mg ORAL HS PRN - acetaminophen 975 mg tab(s) (TYLENOL) 975 mg ORAL q 6 H PRN - haloperidol lactate 5 mg injection (HALDOL) 5 mg INTRAVENOUS q 6 H PRN - ipratropium-albuterol 3 mL nebulizer solution (DUONEB) 3 mL INHALATION q 4 H while awake - aspirin 81 mg chewable tab(s) 81 mg ORAL/FEEDING TUBE DAILY - pill real estate investment analyst (patient-specific) 1 Each Miscell. (Med.Supl.;Non-Drugs) PRN - NaCl 0.9% 10 mL 10 mL INTRAVENOUS q 12 H - NaCl 0.9% 20 mL 20 mL INTRAVENOUS PRN - enoxaparin 30 mg injection (LOVENOX) 30 mg SUBCUTANEOUS BID Labs: Recent Labs 06/17/19 0325 06/16/19 0341 06/15/19 0241 NA -- -- 135* K -- -- 3.5 CHLOR -- -- 101 CO2 -- -- 28 BUN -- -- 10 CREAT -- -- 0.39* GLUC -- -- 101* ANION -- -- 10 CA -- -- 9.2 WBC 12.00* 13.84* 13.63* HB 13.1* 13.8 13.5* HCT 39.5* 41.0 40.7 PLT 1,117* 1,092* 1,105* Exam: GENERAL: No distress, alert, cooperative NEURO: AANDOx1-2, CN II-XII grossly intact HEENT: normocephalic, atraumatic LUNGS: Unlabored breathing on RA. Lungs CTAB. No harsh lung sounds. SpO2 95% CARDIAC: Regular rate, rhythm and BP as above ABDOMEN: Soft, non-tender, no rebound or guarding EXTREMITIES: DHALIWAL, No deformities, No edema SKIN: Skin color, texture, turgor normal, No rashes or lesions ASSESSMENT AND PLAN: Active Hospital Problems Diagnosis Date Noted - Fever 06/13/2019 - Leukocytosis 06/13/2019 - Cavitary pneumonia 06/13/2019 - Acute respiratory failure with hypercapnia ([facility]) 06/07/2019 - Malnutrition of mild degree ([facility]) 06/05/2019 - DTs (delirium tremens) ([facility]) 06/02/2019 - SAH (subarachnoid hemorrhage) ([facility]) 06/02/2019 - Closed fracture of one rib of left side 06/02/2019 - Closed fracture of vault of skull ([facility]) 06/02/2019 - Aphasia 06/02/2019 - Subdural hematoma ([facility]) 06/01/2019 - Bipolar affective disorder ([facility]) 12/21/2012 Overview Note: Diagnosed in ~1989 ? 49 year old male s/p found down (suspected fall) ? Traumatic Injuries: 1. SDH/SAH 2. Non-displaced parietal/temporal fx 3. L 5th rib fx 4. L pulmonary contusion Operations: 1. None Care Plan: 1. PRN pain control 2. Mobilize - PT/OT recommending acute rehab 3. Continue Levaquin per ID for + respiratory cultures growing Pseudomonas 4. Will need repeat CT chest in 4-6 weeks 5. Blood Cx - NGD#4 6. Seroquel/Melatonin qhs 7. ASA for thrombocytopenia - Platelets 1092 from 1105 - consider increasing dose to 325 mg daily. 8. Encouraged IS/Pulmonary toilet 9. Diet: Dysphagia II/Thin liquids per 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 recommendations 10. Pain Regimen: PRN Tylenol 11. Bowel Regimen: Senna-S 12. Labs: 1.) WBC 12.0 from 13.84 2.) Hgb 13.1 from 13.8 13. Bioethic consulted - appreciate recommendations. Prophylaxis: 1. DVT ppx: SCD, LVX Consulted Services and Recommendations: 1. SICU 2. Neurosurgery 3. Bioethics Dispo Plannin. PT/OT recommending Acute Rehab. CM following. Patient's friend Sahil reportedly working on guardianship process. Follow Up Needs: 1. Neurosurgery - timing TBD. SIGNATURE: Ciro Molina PA-C PATIENT NAME: Rhoda Poon DATE: June 17, 2019 TIME: 7:37 AM Pager: see below Trauma Service Pager: For questions or concerns Mon-Fri 6a-5p please page [phone]. After 5pm and on Weekends and Holidays, please page [phone] if in ICU or [phone] if on RNF. Normal [facility] THERAPY NTon 06-17-2019 THERAPY NT HNO ID: [id number] Author: Sarahy ([employer] Teammate) MANUEL Roblero/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 Service: Speech/Swallow Author Type: Speech Language Pathologist Type: Therapy (PT/OT/Speech/Resp) Filed: 06/17/2019 2:56 PM Note Text: Speech Therapy Speech Evaluation, Treatment SERVICE DATE: 06/17/2019 SERVICE TIME: 1105 to 1135 ROOM: [id number] Nursing Recommendations: See swallow guide posted in patients room;Reinforce use of swallowing strategies;Reinforce use of communication strategies Diet Recommendations: Regular Consistency; Thin Liquids IDDSI Level 0 Swallowing Precautions Recommendations: Alternate bites and sips; Feed / Eat at a slow rate; Sit upright 90 degrees for all PO; Small Bite/Sip Results and Recommendations Discussed With: Patient;Nurse, Adolescent Coordinator, Trauma PA Recommended Discharge Disposition: Acute Rehab - Patient would benefit from intensive therapies to maximize potential to return to baseline level of function. Patient has moderate-servere cognitive-linguistic impairments limiting safety at this time and would benefit from aggressive Speech Therapy and Occupational Therapy to address. Per discussion with Care Management: Luaks Rueda has denied Patient. If Patient to go home, he will require 24/7 supervision/assist. Will need Outpatient Speech Therapy and Occupational Therapy. 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 discussed with Trauma PA. Justification For Post Acute Needs: Patient can tolerate 3 hours of therapy per day;Good premorbid functional status;Living the community premorbidly IMPRESSION: Patient demonstrates oral and suspected pharyngeal dysphagia which is negatively impacting his/her ability to effectively maintain adequate nutrition and hydration and/or airway safety. Patient demonstrates cognitive linguistic deficits which are negatively impacting the patient's ability to effectively communicate basic ADL medical and social wants/needs with familiar and unfamiliar communication partners. Rehabilitation Precautions: Modified Diet;Aspiration Precautions;Cognitive Linguistics Deficits;Dysphagia ASSESSMENT: Tolerated Full Session -Patient alert, up in bed on 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 arrival, agreeable to therapy -Patient reported having no difficulties with current diet textures -Able to feed self -Mastication timely for solids -No significant oral residuals post swallow -Laryngeal movement detected upon palpation of swallow -No cough, throat clear, or change in vocal quality with po trials -Recommend upgrade to regular diet and thin liquids with strategies as above, will follow tolerance clinically - Assessed speech, language, and cognitive skills: - Speech: Intelligibility: 100% with unfamiliar listeners in known and unknown contexts Dysarthria/Apraxia: N/A - Language: Receptive: Moderately impaired Expressive: Mildly impaired - Cognition: See CLQT results below Problem solving: Mildly impaired Memory: Moderately impaired Attention: WFL - Insight: WFL - Pragmatics: [facility] Cognitive Linguistic Quick Test (CLQT) Results Subtest Score Personal Facts 12/25 Symbol Cancellation 05/31 Confrontation naming 01/27 Clock Drawing 08/01 Story Retelling 08/29 Symbol Trails 04/29 Generative Naming 08/28 Design Memory 6/6 Mazes 02/24 Design Generation 11/30 Cognitive Domain Score (severity rating) Attention 163/215 (Mild) Memory 102/185 (Severe) Executive Function 21/40 (Mild) Language 13/37 (Severe) VisuospatialSkills 87/105 (WNL) Composite 2.4/4.0 (Moderate) -Patient requires continued skilled speech therapy for treatment of cognitive linguistic deficits and dysphagia Goals for Plan of Care: New Goals 06/17/2019 Language Goals: Patient will increase word finding skills at sentence level to 80% accuracy given moderate cues so that the patient may express basic ADL medical and social wants/needs. Patient will answer simple, 'WH-', yes/no questions with 80% accuracy given moderate cues to effectively respond to caregivers inquiry pertaining to immediate medical/ADL care. Cognitive Goals: Patient will improve functional short-term memory skills to 80% accuracy given moderate cues so that the patient may apply safety precautions for personal welfare. Patient will demonstrate use of simple problem solving skills with 80% accuracy given moderate cues so that the patient may participate in personal discharge planning. Swallow Goals: Patient will tolerate Regular diet consistency while utilizing compensatory/swallowing strategies given minimal cues in 90% of trials so that the patient will minimize the signs/symptoms of dysphagia. Upgrade to regular 06/17/2019 Patient will tolerate Thin Liquids IDDSI Level 0 consistency while utilizing compensatory/swallowing strategies given minimal cues in 90% of trials so that the patient will minimize the signs/symptoms of dysphagia. See above 06/17/2019 Caregiver will demonstrate adequate return of knowledge of all compensatory strategies/instruction to effectively assist the patient in immediate safety with oral intake and swallowing. Slower pace of feeding/eating. Patient will participate with swallow re-assessment to determine if food and drink texture can be safely upgraded. See above 06/17/2019 Patient /Caregiver Goals: Care For Self;Improve Communication Progress Toward Goals: Progressing as expected Speech Rehab Potential: Good PLAN: Treatment Frequency (times per week): 3 Current admission Treatment Interventions: Dysphagia Management;Aphasia Management;Cognitive-Li nguistic Management Plan of Care Developed with: Patient TREATMENT INTERVENTIONS: Therapy Diagnosis: Dysphagia, oropharyngeal phase;Aphasia;Unspecifi ed symbolic dysfunctions Interventions Provided: Speech Language Eval (11044);Dysphagia Therapy (22728) $ Speech Language Eval (64007) Billed Units: 1 unit $ Dysphagia Therapy (86182) Billed Units: 1 unit Skilled Interventions: Educated and advised patient / caregiver on texture and liquid consistency recommendations., Instructed patient / caregiver on recommended compensatory strategies to maximize safety with oral intake while maintaining nutrition, hydration and medication stability. Reassessed swallow ability with various liquid and food textures to determine if safe for current food/drink textures versus at risk for aspiration. Total Treatment Time (minutes): 30 SUBJECTIVE: Current Hospital Course: Chart reviewed and no significant medical updates relevant to therapy were noted Reason for Speech Therapy Consult: + TBI - assess swallow and cognition Relevant Past Medical History: bipolar, epilepsy Patient Report: I'm not back to normal yet. Home Environment Prior Functional Level: Within Functional Limits Assistance Available: Unable to determine at this time Prior Swallowing Function/Diet Textures: Regular Consistency;Thin Liquids IDDSI Level 0 Please see discipline specific clinical documentation flowsheet for complete details for this therapy evaluation/treatment. SIGNATURE: REDDY Patricia PATIENT NAME: Rhoda Poon DATE: June 17, 2019 TIME: 12:03 PM I reviewed and agree with the documentation corresponding to this therapy visit. Evaluation and/or treatment directly supervised by licensed Speech Therapist Sarahy Roblero CCC-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. [facility] THERAPY NT HNO ID: [id number] Author: Cleve Estrada) Sheldon Service: Physical Therapy Author Type: Freight Associate Type: Therapy (PT/OT/Speech/Resp) Filed: 06/17/2019 2:31 PM Note Text: Attestation signed by Waldo Esqueda at 06/17/2019 3:48 PM I reviewed and agree with the documentation corresponding to this therapy visit. SIGNATURE: Waldo Esqueda, PT DATE: June 17, 2019 TIME: 3:47 PM Physical Therapy Treatment SERVICE DATE: 06/17/2019 SERVICE TIME: 925 to 950 ROOM: [id number] Recommended Discharge Disposition: Acute Rehab Recommended Discharge Disposition Comments: Pt with profound cognitive impairment from his baseline and a major change in his ability to function effectively and safely. Recommend acute rehab primary for the intensive cognitive therapy and PT tasks to support and reinforce these efforts. Justification For Post Acute Needs: Anticipate patient will tolerate 3 hours of daily therapy at the time of admission to post-acute setting;Willing to participate Anticipated Discharge Needs: Supervision at Home Supervision at Home due to: Decreased safety awareness;Impaired cognition PT Recommendations to Nursing: Ambulate with device;In halls;With assist of 1 person Device: Hand Held Assist PT 6 Clicks Score: 19 Precautions/Activity Restrictions: Bed/Chair Alarm;Fall Risk ASSESSMENT : Patient presents with ongoing with PT goals. Patient continues needing contact guard assist while performing bed mobility. Patient continues to ambulate up to 200 ft with no assistive device--requiring varied levels of assist contact guard to minimal assist, secondary to occasional lateral loss of balance. Patient asked to look L/R while ambulating, patient states he can but does not perform task. Patient was able to perform supine,sitting and standing exercises, requiring frequent cuing for proper LE alignment and ROM, with proper posture in standing. Patient continues to need increased cuing due to decrease cognitive deficit. continue to recommend acute care to improve strength, ROM, balance,endurance, normalized gait pattern, and independence with mobility tasks to prior level of function for safe return to home activity. Patient Disposition at Start of Session: Supine in Bed;Call Gupta in Reach;Bed Alarm Patient Disposition at End of Session: OOB in Chair;Chair Alarm;Call Gupta in Reach Tolerated Full Session Physical Therapy Problem List: Cognitive Deficit;Safety Deficits Patient /Caregiver Goals: Walk Goals for Plan of Care: Able to perform HEP with: Verbal Cues Only(Able to follow written instructions with min verbal cues) Transfer sit to/from stand with: Supervision(Pt demos safe technique 100% of time. Reaching for surface) Ambulate with: Stand By Assistance(On stairs and level surfaces) Distance: 300 feet Device: No Device Goal: Pt able to follow 3 step commands for completion of a mobility task with verbal cues only 25% of time Goal: Pt able to navigate away from his hospital room to the practice stairs and find his way back to his room without additional cues. Progress Toward Goals: Progressing as expected Rehab Potential: Good PLAN: Treatment Frequency (times per week): 5(3-5) Current admission Treatment Interventions: Education;Functional Mobility Training;Cognitive Training Plan of Care developed with: Patient TREATMENT INTERVENTIONS: Therapy Diagnosis: General symptoms and signs-other(profound cognitive impairment with safety implications) Interventions Provided: Therapeutic Exercise (83113);Therapeutic Activity (99266);Gait Training (24028) Therapeutic Exercise (17824) Treatment Minutes: 13 1 unit Skilled Intervention(s): Patient performed varied up to 15 reps for supine exercises ankle pumps, quad sets, glute sets and adductor squeezes. Patient required cuing to hold rep and then relax. Patient performed sitting at edge of bed marching and LAQ varied up to 15 reps. Patient performed while reading from HEP standing exercises 4 way hip, HS curl, up on toes, mini squats. Patient required assistance on reading the HEP and performing activity properly. Standing HEP not issued, secondary to not wanting patient to try to perform by self, due to fall current fall risk. Therapeutic Activity (27973) Treatment Minutes: 3 0 units Skilled Intervention(s): Instruction in stand to sit technique with lower extremities touching chair/bed and reaching back for surface. Patient performed with contact guard assist , demonstrating square up with chair and reach back method. Instruction in sit to and from stand technique with proper hand placement and body positioning at edge of bed/chair. Patient was able to scoot to edge of bed with supervision and sit to stand with contact guard assistance. Patient demonstrated hand placement at edge of bed before standing. Gait Training (78990) Treatment Minutes: 9 1 unit Skilled Intervention(s): Patient ambulated >200 ft with contact guard assist. Patient demonstrated slight loss of balance when talking during ambulation, patient also got close to objects when ambulating. Patient required verbal cues to normalize arm swing and to look forward. Patient asked to look Left then Right while walking forward, patient stated he understood, but did not perform. Patient was asked to find way back to room - patient was able to achieve this task. Patient ascended and descended 4 steps using bilateral handrails, demonstrating normal gait pattern, however unsafe gait speed, increasing fall risk during stepping. Total Timed Code Treatment Minutes: 25 Total Treatment Time (minutes): 25 SUBJECTIVE: Current Hospital Course: Chart reviewed and no significant medical updates relevant to therapy were noted Reason for Physical Therapy Consult : eval Relevant Past Medical History: Surbdural hematoma, Bipolar Affective disorder, DTs, aphasia Patient Report: Patient reported no pain, after ambulating patient did report R shoulder pain, but was unable to give numeric rating. Home Environment Patient Lives With: Significant Other(questionable historian) Assistance Available: 24 Hour((reports Sahil is his boyfriend and is available to help him) Entry To Home: Stairs;With Rail Number Of Stairs Into Home: 5 Tub/Shower Type: walk in Prior Functional Level: Within Functional Limits Prior Functional Level Comments: Patient is a questionable historian due to confusion and difficulty with word finding OBJECTIVE: Mini Cog Score: 1 (06/16/19 9230) CURRENT FUNCTIONAL STATUS: Current Functional Mobility Assist Level Additional Information Rolling Supine to Sit Supervision Sit to Supine Supervision Scooting Supervision Sit to Stand Contact Guard Assistance Stand to Sit Contact Guard Assistance Bed to Chair Toilet/Commode Gait Minimal Assistance(CGA to min assist as needed) Gait Device: None;Other: See Comment(gait belt) Gait Distance (feet): >200 Stairs Contact Guard Assistance Stairs Device: Rail(Bilateral HR and gaitbelt ) Number of Stairs: 4 Curb Step Car Transfer General Gait Deviations: Arm swing decreased;Loss of Balance(unsafe directional changes, secondary to speed of transition) -HLM: 7: Walk 25 feet or more Please see discipline specific clinical documentation flowsheet for complete details for this therapy evaluation/treatment. SIGNATURE: ROXANNA Redd PATIENT NAME: Rhoda Poon DATE: June 17, 2019 TIME: 10:07 AM I reviewed and agree with the documentation corresponding to this therapy visit. I attest that I was present, not working on other tasks, and directing the student during this visit. I have reviewed and agree with the above documentation of this student. Cleve Chung PTA SIGNATURE: Cleve Chung PTA DATE: June 17, 2019 TIME: 11:37 AM Normal [facility] CASE MANAGEMon 06-16-2019 CASE MANAGEM HNO ID: [id number] Author: Sayda Rand (Sw) Service: ? Author Type: Large Sheetfed Press Operator Type: Care Mgt Progress Note Filed: 06/16/2019 12:14 PM Note Text: CARE MANAGEMENT PROGRESS NOTE SERVICE DATE: 06/16/2019 SERVICE TIME: 12:13 PM LOS: 15 days Spoke with Sahil patient friend regarding guardianship. Educated on process. Sahil will start process. SIGNATURE: FITZ Berman PATIENT NAME: Rhoda Poon DATE: June 16, 2019 TIME: 12:13 PM PAGER/CONTACT #: [phone] [facility] CASE MANAGEM HNO ID: [id number] Author: Sayda LanceSudeep Keyona Service: ? Author Type: Large Sheetfed Press Operator Type: Care Mgt Progress Note Filed: 06/16/2019 10:45 AM Note Text: CARE MANAGEMENT PROGRESS NOTE SERVICE DATE: 06/16/2019 SERVICE TIME: 10:44 AM LOS: 15 days Called patient friend Sahil and left a message requesting a call back. SIGNATURE: FITZ Berman PATIENT NAME: Rhoda Poon DATE: June 16, 2019 TIME: 10:43 AM PAGER/CONTACT #: [phone] [facility] Creatinine Clearanceon 06-16 Creatinine [Mass/Vol] 0.40 mg/dL Low 0.67-1.17 [facility] Comment on above: Performed By: #### P T #### [facility] [address] [address] Creatinine Clearance 203.0 mL/min/1.73m2 High 62.0-1 45.0 [facility] Comment on above: Performed By: #### P T #### [place] [address] Flow Per Minute 1.65 Normal [facility] Comment on above: Performed By: #### P T #### [facility] [address] [address] Pt. Height 68 IN/CM [facility] Comment on above: Performed By: #### P T #### [facility] [address] [address] Surface Area 1.93 Normal [facility] Comment on above: Performed By: #### P T #### [facility] [address] [place] [address] Total No. Minutes 1440 [facility] Comment on above: Performed By: #### P T #### [address] [address] Hemogram/Diffon 06-16-2019 Abs Immature Grans 0.18 thou/cmm High 0.00-0.05 [facility] Comment on above: Performed By: #### P T #### [facility] [address] [place] [address] Abs Neut (ANC) 10.02 thou/cmm High 1.78-5.38 [facility] Comment on above: Performed By: #### P T #### [facility] [address] [address] Abs. Baso 0.12 thou/cmm High 0.01-0.08 [facility] Comment on above: Performed By: #### P T #### [facility] [address] [address] Abs. [place] 1.02 thou/cmm High 0.30-0.82 [facility] Comment on above: Performed By: #### P T #### [place] [address] Basophils/100 WBC (Bld) 0.9 % Normal [facility] Comment on above: Performed By: #### P T #### [place] [address] Eosinophils (Bld) [#/Vol] 0.35 thou/cmm Normal 0.04-0.54 [facility] Comment on above: Performed By: #### P T #### [place] [address] Eosinophils/100 WBC (Bld) 2.5 % Normal [facility] Comment on above: Performed By: #### P T #### [place] [address] Erythrocyte distribution width (RBC) [Ratio] 13.7 % Normal 11.6-14.4 [facility] Comment on above: Performed By: #### P T #### [place] [address] Hematocrit (Bld) [Volume fraction] 41.0 % Normal 40.1-51.0 [facility] Comment on above: Performed By: #### P T #### [facility] [address] [address] Hemoglobin (Bld) [Mass/Vol] 13.8 g/dL Normal 13.7-17.5 [facility] Comment on above: Performed By: #### P T #### [facility] [address] [address] Immature Grans 1.30 % Normal [facility] Comment on above: Performed By: #### P T #### [facility] [address] [address] Lymphocytes (Bld) [#/Vol] 2.15 thou/cmm Normal 0.84-2.85 [facility] Comment on above: Performed By: #### P T #### [facility] [address] [address] Lymphocytes/100 WBC (Bld) 15.5 % Normal [facility] Comment on above: Performed By: #### P T #### [facility] [address] [address] MCH (RBC) [Entitic mass] 32.1 pg Normal 25.7-32.2 [facility] Comment on above: Performed By: #### P T #### [facility] [address] [address] MCHC (RBC) [Mass/Vol] 33.7 % Normal 32.3-36.5 [facility] Comment on above: Performed By: #### P T #### [facility] [address] [place] [address] MCV (RBC) [Entitic vol] 95.3 fL Normal 83.2-95.6 [facility] Comment on above: Performed By: #### P T #### [facility] [address] [address] Monocytes/100 WBC (Bld) 7.4 % Normal [facility] Comment on above: Performed By: #### P T #### [place] [address] Platelet mean volume (Bld) [Entitic vol] 8.6 fL Low 8.7-12.0 [facility] Comment on above: Performed By: #### P T #### [facility] [address] [address] Platelets (Bld) [#/Vol] 1092 thou/cmm Critically high 141-365 [facility] Comment on above: Performed By: #### P T #### [place] [address] RBC (Bld) [#/Vol] 4.30 mil/cmm Low 4.63-6.08 [facility] Comment on above: Performed By: #### P T #### [place] [address] RDW SD 48.2 fl High 36.1-45.8 [facility] Comment on above: Performed By: #### P T #### [place] [address] Seg Neutrophil 72.4 % Normal [facility] Comment on above: Performed By: #### P T #### [place] [address] WBC (Bld) [#/Vol] 13.84 thou/cmm High 4.23-9.07 [facility] Comment on above: Performed By: #### P T #### [place] [address] MDRD GFRon 06-16-2019 GFR/1.73 sq M predicted among non-blacks MDRD (S/P/Bld) [Vol rate/Area] mL/min/{1.73_m2} Normal >60mL/min/1. 73m2 [facility] Comment on above: Result Comment: If t he patient is , multiply the result by 1.210. Performed By: #### G FR #### [place] [id number] NURSING PROGon 06-16-2019 NURSING PROG HNO ID: [id number] Author: Anastasiya LucasRn) GILBERTO Marques Service: Nursing Author Type: Registered Nurse Type: Nursing Progress Note Filed: 06/16/2019 12:19 PM Note Text: Upon checking on pt while in bathroom nurse opened door and smelled cigarette smoke. Instructed pt that its against hospital policy to smoke on hospital grounds. Opto Mechanical Technician and cigarette given to nurse upon request of pt and remaining cigarettes taken out of pts belonging bag (loose in plastic baggie) and locked in pts chart box along with code number stamper. Explained to pt will get order for nicotine patch and was agreeable. Normal [facility] NUTRITIONon 06-16-2019 NUTRITION HNO ID: [id number] Author: Kamala Sommers RD Service: Nutrition Therapy Author Type: Registered Dietitian Type: Nutrition Filed: 06/16/2019 3:42 PM Note Text: NUTRITION THERAPY PROGRESS NOTE SERVICE DATE: 06/16/2019 SERVICE TIME: 3:32 PM Some elements copied from [facility] note 06/10/19. The information below has been updated and reflect current decision making from today. RECOMMENDED DIAGNOSIS: MILD PROTEIN-CALORIE MALNUTRITION per Registered Dietitian on 06/05/19 NUTRITION CARE PLAN Suboptimal oral intake with need for enteral feeding aeb AMS, respiratory failure and mechanical ventilation--> now resolved,and encouraging oral intake . ? Intervention: Continue diet--> dysphagia 2 diet as recommended by speech therapy Added Ensure Enlive , vanilla TID, each provides 350 calories and 20 gms pro Encouraged small meals Collaborated with Dr Umana and orders written. Coordination of Care: pt, Monitor and Evaluation: Goal: Meet >75% of estimated needs Discharge Nutrition Recommendations: To be determined Reason for visit--> f/u oral intake after ICU Interval History: LOS d 15, transfered out of ICU on 06/14, on a dysphagia diet, tolerating well, pt agreeable to oral supplements, ordered TID, WT 77 kg, afebrile, + BM, Lytes noted, no PAB, WBC trending down, CM pursuing guardianship ACTIVE PROBLEM LIST Hypertension Depression With Anxiety Tobacco Use Disorder Personal history of alcoholism (HCC) Depression Tremor Gerd (Gastroesophageal Reflux Disease) Bipolar Affective Disorder (Hcc) Epilepsy (Hcc) Pain of Upper Abdomen Subdural Hematoma (Hcc) Dts (Delirium Tremens) (Hcc) Sah (Subarachnoid Hemorrhage) (Hcc) Closed Fracture of One Rib of Left Side Closed Fracture of Vault of Skull (Hcc) Aphasia Malnutrition of Mild Degree (Hcc) Acute Respiratory Failure With Hypercapnia (Hcc) Fever Leukocytosis Cavitary Pneumonia Nutritional Intake: during admission > 75 % estimated energy needs over the past 10 day(s) Orders Placed This Encounter DIET FOOD CONSISTENCY CONTROLLED Standing Status: Standing Number of Occurrences: 1 Order Specific Question: Food Consistency Answer: DYSPHAGIA LEVEL 2 MECHANICALLY ALTERED Order Specific Question: Liquid Consistency Answer: THIN LIQUID (L0) Supplement 1 Frequency: 7. BREAKFAST, LUNCH, DINNER Supplement 1: ENSURE ENLIVE VANILLA There are no questions and answers to display. There are no questions and answers to display. Lines and Drains: Central Line Double Lumen 06/09/19 1448 Peripherally Inserted (PICC) Left Arm 5.0 Welsh (Active) Height: 172.7 cm (5' 7.99) Admission Weight: 81.6 kg (180 lb) Current Weight: 77.3 kg (170 lb 6.7 oz) Body mass index is 25.92 kg/m?. normal Recent Labs 06/16/19 0341 06/15/19 0241 06/14/19 0444 GLUC -- 101* 116* BUN -- 10 11 CREAT -- 0.39* 0.40* NA -- 135* 137 K -- 3.5 3.3* CHLOR -- 101 99 CO2 -- 28 30 P -- -- 2.0* HB 13.8 13.5* 13.4* HCT 41.0 40.7 39.8* WBC 13.84* 13.63* 17.46* MG -- -- 2.0 ALLERGIES Allergen Reactions - Morphine Mental Status Change Patient's contact reports nightmares - Vicodin [Hydrocodon* Mental Status Change States has bad nightmares Current Facility-Administered Medications Medication Dose Route Frequency - nicotine 14 mg/24 hr 1 Patch (NICODERM) 1 Patch TRANSDERMAL DAILY - levoFLOXacin iv piggyback 750 mg in D5W 150 mL (LEVAQUIN) 750 mg INTRAVENOUS DAILY - cloNIDine HCl 0.05 mg tab(s) (CATAPRES) 0.05 mg ORAL/FEEDING TUBE q 8 H - propranolol 10 mg tab(s) (INDERAL) 10 mg ORAL TID - senna-docusate 8.6-50 mg 1 tablet (SENNA-S) 1 tablet ORAL DAILY - QUEtiapine 50 mg tablet (SEROquel) 50 mg ORAL/FEEDING TUBE BID - melatonin 9 mg tab(s) 9 mg ORAL HS PRN - acetaminophen 975 mg tab(s) (TYLENOL) 975 mg ORAL q 6 H PRN - haloperidol lactate 5 mg injection (HALDOL) 5 mg INTRAVENOUS q 6 H PRN - ipratropium-albuterol 3 mL nebulizer solution (DUONEB) 3 mL INHALATION q 4 H while awake - aspirin 81 mg chewable tab(s) 81 mg ORAL/FEEDING TUBE DAILY - pill real estate investment analyst (patient-specific) 1 Each Miscell. (Med.Supl.;Non-Drugs) PRN - NaCl 0.9% 10 mL 10 mL INTRAVENOUS q 12 H - NaCl 0.9% 20 mL 20 mL INTRAVENOUS PRN - enoxaparin 30 mg injection (LOVENOX) 30 mg SUBCUTANEOUS BID Date 06/15/19 1500 - 06/16/1965806/16/19 0700 - 06/17/19 0659 Shift 9448-8300 3403-2704 24 Hour Total 6430-6105 8573-4210 5213-5607 24 Hour Total INTAKE PO 360 360 720 240 240 PO 360 360 720 240 240 Shift Total 360 360 720 240 240 OUTPUT Urine 2 550 552 250 250 Void (ml) 2 550 552 250 250 Urine Not Saved. 2 x # of BMs Number of BMs 1 x 1 x Shift Total 2 550 552 250 250 Weight (kg) 77.3 77.3 77.3 77.3 77.3 77.3 77.3 Vitamin and Mineral Labs in the past year:No results for input(s): CHROMIUM, COPPER, MANGANESE, SELENIUM, VITAMINA, VITB1, VITB2, VITB6, B12, METHYLMAL, VITD25, VITAMINE, VITAK, ZINC, TIBC, FE, ANA LILIA in the last 8784 hours. MNT Billing Type: Re-assess/15 min 2 units SIGNATURE: Kamala Sommers RD, LD PATIENT NAME: Rhoda Poon DATE: June 16, 2019 TIME: 3:32 PM PAGER: [phone] [facility] PROGRESSon 06-16-2019 PROGRESS HNO ID: [id number] Author: Kat Snyder Service: Infectious Disease Author Type: Physician Type: Progress Notes Filed: 06/16/2019 1:05 PM Note Text: Kat Snyder MD, MS, FACP, [facility] Division of Infectious Diseses [address] [place] [address] Office: [phone] INFECTIOUS DISEASE CONSULT PROGRESS NOTE SERVICE DATE: 06/16/2019 SERVICE TIME: 12:58 PM Subjective INTERVAL HISTORY: Sitting up, c/o headache. Tolerating the levaquin. PERTINENT ROS: Denies fever or chills. Current Facility-Administered Medications Medication Dose Route Frequency - nicotine 14 mg/24 hr 1 Patch (NICODERM) 1 Patch TRANSDERMAL DAILY - cloNIDine HCl 0.05 mg tab(s) (CATAPRES) 0.05 mg ORAL/FEEDING TUBE q 8 H - propranolol 10 mg tab(s) (INDERAL) 10 mg ORAL TID - senna-docusate 8.6-50 mg 1 tablet (SENNA-S) 1 tablet ORAL DAILY - QUEtiapine 50 mg tablet (SEROquel) 50 mg ORAL/FEEDING TUBE BID - melatonin 9 mg tab(s) 9 mg ORAL HS PRN - acetaminophen 975 mg tab(s) (TYLENOL) 975 mg ORAL q 6 H PRN - haloperidol lactate 5 mg injection (HALDOL) 5 mg INTRAVENOUS q 6 H PRN - ipratropium-albuterol 3 mL nebulizer solution (DUONEB) 3 mL INHALATION q 4 H while awake - aspirin 81 mg chewable tab(s) 81 mg ORAL/FEEDING TUBE DAILY - levoFLOXacin iv piggyback 750 mg in D5W 150 mL (LEVAQUIN) 750 mg INTRAVENOUS DAILY - pill real estate investment analyst (patient-specific) 1 Each Miscell. (Med.Supl.;Non-Drugs) PRN - NaCl 0.9% 10 mL 10 mL INTRAVENOUS q 12 H - NaCl 0.9% 20 mL 20 mL INTRAVENOUS PRN - enoxaparin 30 mg injection (LOVENOX) 30 mg SUBCUTANEOUS BID Objective PHYSICAL EXAM: Vital Signs: BP 120/80 Pulse 103 Temp 36.8 ?C (98.2 ?F) (Oral) Resp 17 Ht 172.7 cm (5' 7.99) Wt 77.3 kg (170 lb 6.7 oz) SpO2 95% BMI 25.92 kg/m? Tmax 37.1 HEENT moist mouth Lungs bilateral breath sounds, decreased at bases Heart tachy S1 S2 Abdomen soft, flat, NT Extremities no C/C/E DATA: Diagnostic Tests Reviewed for Today's Visit: WBC 13, 06/12 fungal labs pending, HIV nonreactive Impression/Recommendati ons Active Problems: Bipolar affective disorder (HCC) POA: Yes Assessment AND Plan: Complicates management. DTs (delirium tremens) ([facility]) POA: Yes Assessment AND Plan: Advised cessation of alcohol. SAH (subarachnoid hemorrhage) ([facility]) POA: Yes Assessment AND Plan: Per trauma service. Closed fracture of vault of skull ([facility]) POA: Yes Assessment AND Plan: Per trauma service. Fever POA: No Assessment AND Plan: Likely from ICH and the pneumonia. None in last 24 h. Continue to monitor. Leukocytosis POA: No Assessment AND Plan: Trending downwards. Suspect multifactorial. Continue to monitor. Cavitary pneumonia POA: Yes Assessment AND Plan: Due to Pseudomonas. Continue levaquin until cavities resolve. Repeat CT chest in 4-6 weeks. Will change levaquin to PO when swallowing improves, prior to DC. On seroquel, watch QTc. SIGNATURE: Kat Snyder MD, MS, FACP, [facility] PATIENT NAME: Rhoda Poon DATE: June 16, 2019 TIME: 12:55 PM PAGER/CONTACT #: [phone] [facility] PROGRESS HNO ID: [id number] Author: Ciro Molina (Pa) Service: Trauma Author Type: Physician Electrolysis Needle Operator Type: Progress Notes Filed: 06/16/2019 9:58 AM Note Text: Trauma Surgery Progress Note SERVICE DATE: 06/16/2019 SUBJECTIVE: NAEON. Patient very pleasant this morning. Currently denies pain. Knows that he is in [facility] but cannot state facility named, but can state his full name and date of . Tells me that it is Sunday, but when asked the year he states [facility]. No other acute concerns at this time. OBJECTIVE: Vitals: Temp (24hrs), Av.6 ?C (97.9 ?F), Min:36.2 ?C (97.2 ?F), Max:36.9 ?C (98.4 ?F) BP 130/81 Pulse 104 Temp 36.4 ?C (97.5 ?F) (Oral) Resp 16 Ht 172.7 cm (5' 7.99) Wt 77.3 kg (170 lb 6.7 oz) SpO2 97% BMI 25.92 kg/m? O2 Therapy: Room Air IANDO: Date 06/15/19699 - 06/16/1965806/16/19699 - 06/17/19 0659 Shift 3648-3536 2812-0272 5696-9991 24 Hour Total 5734-9851 9509-1772 1240-7009 24 Hour Total INTAKE PO 360 360 720 240 240 PO 360 360 720 240 240 Shift Total 360 360 720 240 240 OUTPUT Urine 2 550 552 250 250 Void (ml) 2 550 552 250 250 Urine Not Saved. 2 x 2 x # of BMs Number of BMs 1 x 1 x Shift Total 2 550 552 250 250 Weight (kg) 77.3 77.3 77.3 77.3 77.3 77.3 77.3 77.3 MEDICATIONS Current Facility-Administered Medications Medication Dose Route Frequency - cloNIDine HCl 0.05 mg tab(s) (CATAPRES) 0.05 mg ORAL/FEEDING TUBE q 8 H - propranolol 10 mg tab(s) (INDERAL) 10 mg ORAL TID - senna-docusate 8.6-50 mg 1 tablet (SENNA-S) 1 tablet ORAL DAILY - QUEtiapine 50 mg tablet (SEROquel) 50 mg ORAL/FEEDING TUBE BID - melatonin 9 mg tab(s) 9 mg ORAL HS PRN - acetaminophen 975 mg tab(s) (TYLENOL) 975 mg ORAL q 6 H PRN - haloperidol lactate 5 mg injection (HALDOL) 5 mg INTRAVENOUS q 6 H PRN - oxyCODONE IR 5 mg tab(s) (ROXICODONE) 5 mg ORAL q 4 H PRN - ipratropium-albuterol 3 mL nebulizer solution (DUONEB) 3 mL INHALATION q 4 H while awake - aspirin 81 mg chewable tab(s) 81 mg ORAL/FEEDING TUBE DAILY - levoFLOXacin iv piggyback 750 mg in D5W 150 mL (LEVAQUIN) 750 mg INTRAVENOUS DAILY - pill real estate investment analyst (patient-specific) 1 Each Miscell. (Med.Supl.;Non-Drugs) PRN - NaCl 0.9% 10 mL 10 mL INTRAVENOUS q 12 H - NaCl 0.9% 20 mL 20 mL INTRAVENOUS PRN - enoxaparin 30 mg injection (LOVENOX) 30 mg SUBCUTANEOUS BID Labs: Recent Labs 06/16/19 0341 06/15/19 0241 06/14/19 0444 06/13/19 1239 NA -- 135* 137 -- -- K -- 3.5 3.3* -- -- CHLOR -- 101 99 -- -- CO2 -- 28 30 -- -- BUN -- 10 11 -- -- CREAT -- 0.39* 0.40* < > -- GLUC -- 101* 116* -- -- ANION -- 10 11 -- -- CA -- 9.2 9.1 -- -- MG -- -- 2.0 -- -- P -- -- 2.0* -- -- WBC 13.84* 13.63* 17.46* < > -- HB 13.8 13.5* 13.4* < > -- HCT 41.0 40.7 39.8* < > -- PLT 1,092* 1,105* 1,082* < > -- PH -- -- -- -- 7.509* PCO2 -- -- -- -- 38.6 PO2 -- -- -- -- 127.0* BE -- -- -- -- 7.2* < > = values in this interval not displayed. Exam: GENERAL: No distress, alert, cooperative NEURO: AANDOx1-2, CN II-XII grossly intact HEENT: normocephalic, atraumatic LUNGS: Unlabored breathing on RA. Lungs CTAB. No harsh lung sounds. SpO2 95% CARDIAC: Regular rate, rhythm and BP as above ABDOMEN: Soft, non-tender, no rebound or guarding EXTREMITIES: DHALIWAL, No deformities, No edema SKIN: Skin color, texture, turgor normal, No rashes or lesions ASSESSMENT AND PLAN: Active Hospital Problems Diagnosis Date Noted - Fever 06/13/2019 - Leukocytosis 06/13/2019 - Cavitary pneumonia 06/13/2019 - Acute respiratory failure with hypercapnia (HCC) 06/07/2019 - Malnutrition of mild degree ([facility]) 06/05/2019 - DTs (delirium tremens) ([facility]) 06/02/2019 - SAH (subarachnoid hemorrhage) ([facility]) 06/02/2019 - Closed fracture of one rib of left side 06/02/2019 - Closed fracture of vault of skull ([facility]) 06/02/2019 - Aphasia 06/02/2019 - Subdural hematoma ([facility]) 06/01/2019 - Bipolar affective disorder ([facility]) 12/21/2012 Overview Note: Diagnosed in ~1989 ? 49 year old male s/p found down (suspected fall) ? Traumatic Injuries: 1. SDH/SAH 2. Non-displaced parietal/temporal fx 3. L 5th rib fx 4. L pulmonary contusion Operations: 1. None Care Plan: 1. PRN pain control 2. Mobilize - PT/OT evaluations currently pending 3. Tapering Clonidine and Propranolol to end 06/16/2019 4. Continue Levaquin per ID for + respiratory cultures growing Pseudomonas 5. Blood Cx - NGD#4 6. Seroquel/Melatonin qhs 7. ASA for thrombocytopenia - Platelets 1092 from 1105. 8. Encouraged IS/Pulmonary toilet 9. Diet: Dysphagia II/Thin liquids per 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 recommendations 10. Pain Regimen: PRN Tylenol; OxyIR dc'd 06/16/2019 11. Bowel Regimen: Senna-S 12. Labs: 1.) WBC 13.84 from 13.63 2.) Hgb 13.8 from 13.5 3.) Creatinine 0.39 from 0.40 13. Bioethic consulted - appreciate recommendations. Prophylaxis: 1. DVT ppx: SCD, LVX Consulted Services and Recommendations: 1. SICU 2. Neurosurgery 3. Bioethics Dispo Plannin. PT (p). OT recommending outpatient OT. CM following. Patient likely in need of rehab/placement given significant cognitive deficits as evidenced by this morning's interview. Follow Up Needs: 1. Neurosurgery - timing TBD. SIGNATURE: Ciro Molina PA-C PATIENT NAME: Rhoda Poon DATE: June 16, 2019 TIME: 9:33 AM Pager: see below Trauma Service Pager: For questions or concerns Mon-Sun 6a-5p please page [phone]. After 5pm and on Weekends and Holidays, please page [phone] if in ICU or [phone] if on RNF. Normal [facility] THERAPY NTon 06-16-2019 THERAPY NT HNO ID: [id number] Author: Waldo (Pt) Yin Service: Physical Therapy Author Type: Physical Therapist Type: Therapy (PT/OT/Speech/Resp) Filed: 06/16/2019 10:49 AM Note Text: Physical Therapy Evaluation SERVICE DATE: 06/16/2019 SERVICE TIME: 0945 to 1015 ROOM: [place] [address] Recommended Discharge Disposition: Acute Rehab Recommended Discharge Disposition Comments: Pt with profound cognitive impairment from his baseline and a major change in his ability to function effectively and safely. Recommend acute rehab primary for the intensive cognitive therapy and PT tasks to support and reinforce these efforts. Justification For Post Acute Needs: Anticipate patient will tolerate 3 hours of daily therapy at the time of admission to post-acute setting;Willing to participate Anticipated Discharge Needs: Supervision at Home Supervision at Home due to: Decreased safety awareness;Impaired cognition PT Recommendations to Nursing: Ambulate with device;In halls;With assist of 1 person Device: Hand Held Assist PT 6 Clicks Score: 19 Precautions/Activity Restrictions: Bed/Chair Alarm;Fall Risk ASSESSMENT : This patient was admitted for found down and at an outside ER he was found to have an intracranial bleed, has the past medical history of ETOH, seizures, bipolar impacting current functional level, as well as the social factors complicating the discharge of lives alone. This patient is below his baseline functioning of working and living independently and will benefit from continued skilled therapy in the hospital for treatment of the following body systems/impairments: cognitive, musculoskeletal, cardiopulmonary, Patient Disposition at Start of Session: Supine in Bed;Call Gupta in Reach;Bed Alarm Patient Disposition at End of Session: OOB in Chair;Call Gupta in Reach;Bed Alarm Tolerated Full Session Physical Therapy Problem List: Cognitive Deficit;Safety Deficits Patient /Caregiver Goals: Walk Goals for Plan of Care: Able to perform HEP with: Verbal Cues Only(Able to follow written instructions with min verbal cues) Transfer sit to/from stand with: Supervision(Pt demos safe technique 100% of time. Reaching for surface) Ambulate with: Stand By Assistance(On stairs and level surfaces) Distance: 300 feet Device: No Device Goal: Pt able to follow 3 step commands for completion of a mobility task with verbal cues only 25% of time Goal: Pt able to navigate away from his hospital room to the practice stairs and find his way back to his room without additional cues. Rehab Potential: Good PLAN: Treatment Frequency (times per week): 5(3-5) Current admission Treatment Interventions: Education;Functional Mobility Training;Cognitive Training Plan of Care developed with: Patient TREATMENT INTERVENTIONS: Therapy Diagnosis: General symptoms and signs-other(profound cognitive impairment with safety implications) Interventions Provided: Evaluation;Therapeutic Activity (30176) $ Evaluation-Moderate (43330) Billed Units: 1 unit History and examination of body systems see assessment section above. This patient?s clinical presentation is evolving. The patient required a moderate complexity evaluation. Therapeutic Activity (86122) Treatment Minutes: 8 1 unit Skilled Intervention(s): Instructed patient in sit to supine using safe, effective technique Instructed patient in supine to and from sit pushing with upper extremities to sit up Instruction in sit to stand technique with proper hand placement and body positioning at edge of bed/chair Education with safety with mobility in room and need to have assist for now whenever mobilizes. Worked on memory task reinforced with a physical activity (walking in [place] and finding his way back to his room) Pt was able to remember his room # even at ~5 mins but he could not retrace his steps to find his room or use environmental cues of the other room #s to help find his room. Needed mod assist. Total Timed Code Treatment Minutes: 8 Total Treatment Time (minutes): 30 SUBJECTIVE: Current Hospital Course: Chart reviewed; Pt found down and determined to have had a Subdural bleed. Traumatic Injuries: 1. Left posterolateral fifth rib fracture with adjacent lung contusions 2. Additional lung contusions vs infectious/inflammatory changes 3. There is an acute left occipital parietal temporal subdural hematoma estimated to measure approximately 5 mm maximal thickness. Small associated foci of internal gas. There is mild extension of subdural hemorrhage along the left tentorial leaflet. Rightward midline shift of 2mm. 4. Nondisplaced obliquely oriented overlying calvarial fracture 5. Subarachnoid hemorrhage Reason for Physical Therapy Consult : eval Relevant Past Medical History: Surbdural hematoma, Bipolar Affective disorder, DTs, aphasia Patient Report: Pt pleasant but very confused. Willing to work with PT. Home Environment Patient Lives With: Significant Other(questionable historian) Assistance Available: 24 Hour((reports Sahil is his boyfriend and is available to help him) Entry To Home: Stairs;With Rail Number Of Stairs Into Home: 5 Tub/Shower Type: walk in Prior Functional Level: Within Functional Limits Prior Functional Level Comments: Patient is a questionable historian due to confusion and difficulty with word finding OBJECTIVE: Mini Cog Score: 1 (06/16/19 0830) Range of Motion: WFL Strength: WFL CURRENT FUNCTIONAL STATUS: Current Functional Mobility Assist Level Additional Information Rolling Independent Supine to Sit Supervision Sit to Supine Supervision Scooting Supervision Sit to Stand Contact Guard Assistance(for safety. Pt not attentive to environment) Stand to Sit Contact Guard Assistance(for safety, pt not attentive to environment) Bed to Chair Toilet/Commode Gait Contact Guard Assistance(for safety. Pt not attentive to safety in environment.) Gait Device: None Gait Distance (feet): >200 Stairs Curb Step Car Transfer Balance: Dynamic Standing Dynamic Standing Balance: Good- / Fair+ Stand independently unsupported, able to weight shift across midline minimally JH-HLM: 7: Walk 25 feet or more Please see discipline specific clinical documentation flowsheet for complete details for this therapy evaluation/treatment. SIGNATURE: Waldo Esqueda PT PATIENT NAME: Rhoda Poon DATE: June 16, 2019 TIME: 10:41 AM Normal [facility] THERAPY NT HNO ID: [id number] Author: Kaykay Lora/Diane Pimentel OT Service: Occupational Therapy Author Type: Occupational Therapist Type: Therapy (PT/OT/Speech/Resp) Filed: 06/16/2019 10:26 AM Note Text: Occupational Therapy Evaluation SERVICE DATE: 06/16/2019 SERVICE TIME: 829 to 847 ROOM: [id number] Recommended Discharge Disposition: Acute Rehab Recommended Discharge Disposition Comments: Pt would greatly benefit from acute rehab at d/c due to significant cognitive impairment. If pt declines rehab and has 24 hr supervision at home, rec outpatient OT. Justification For Post Acute Needs: Anticipate patient will tolerate 3 hours of daily therapy at the time of admission to post-acute setting;Good premorbid functional status;Living the community premorbidly;Motivated;W illing to participate Anticipated Discharge Needs: Supervision at Home Supervision at Home due to: Decreased safety awareness;Impaired cognition OT Recommendations to Nursing: ADL?s in chair;To Bathroom for ADL?s /and or Toileting;OOB for meals;With assist of 1 person OT 6 Clicks Score: 19 Precautions/Activity Restrictions: Bed/Chair Alarm;Fall Risk Evaluation and/or treatment directly supervised by licensed Occupational Therapist. I reviewed and agree with the documentation corresponding to this OT visit. Kaykay Pimentel, OTR/L ASSESSMENT: Patient presents subdural hematoma, DTs, bipolar disorder which impact function with ADLs. Patient was A+Ox1 (not oriented to time or place) on today's date. Patient demo'd good functional mobility to bathroom and toilet transfer during session, however requires SBA for safety concerns. Patient with noted difficulty with word finding and memory deficits. Patient is questionable historian due to current cognitive deficits (unable to recall his profession prior to admission). Patient scored a 1/5 on the mini cog, indicating significant cognitive impairments. Patient requested using pen and paper to help recall the words for the mini cog due to difficulty with word finding (however was still unable to identify words w/o verbal cues). Requires skilled OT during admission for cognitive training, safe functional mobility and to increase independence with ADLs. Recommend acute rehab upon d/c for cognitive skills training. If pt chooses to return home with boyfriend, recommend 24 hour supervision at home due to safety concerns and outpatient OT. Patient Disposition at Start of Session: Supine in Bed;Call Gupta in Reach;Bed Alarm Patient Disposition at End of Session: Supine in Bed;Call Gupta in Reach;Bed Alarm Tolerated Full Session Occupational Therapy Problem List: Cognitive Deficit;Safety Deficits;Impaired Self Care;Decreased Strength Patient /Caregiver Goals: Go Home Goals for Plan of Care: Grooming with: Independent Upper Body Bathing with: Independent Upper Body Dressing with: Independent Lower Body Bathing with: Independent Lower Body Dressing with: Independent Chair Transfer with: Independent Toilet Transfer with: Independent Additional Goal 1: Patient will complete cognitive exercises with 75% accurracy with min verbal cues Increased Awareness of Cognitive Impairments as Related to ADL's/IADL's: Verbalized;Demonstrated Rehab Potential: Good PLAN: Treatment Frequency (times per week): 5(1-4) Current admission Treatment Interventions: Self Care / Home Management;Functional Mobility Training;Cognitive Training Plan of Care developed with: Patient TREATMENT INTERVENTIONS: Therapy Diagnosis: Decreased activities of daily living (ADL);Muscle Weakness (generalized);Signs and Symptoms Involving Cognitive Functions and Awareness Interventions Provided: Evaluation $ Evaluation-Moderate (87274) Billed Units: 1 unit OT Evaluation Moderate Complexity: Occupational Profile - Extended review of patient's medical record completed including patient's physical, cognitive, and psycho-social history (please see current hospital course of evaluation). Occupational Performance - Pt presents with deficits in feeding, grooming, UE bathing/dressing, LE bathing/dressing, functional transfers, functional mobility, decreased safety awareness, decreased insight into deficits Complexity in Clinical Decision Making - The extent of clinical reasoning was moderate, several treatment options present for the patient, need for modification during the evaluation was minimal/moderate, comorbidities affecting occupational performance: bipolar disorder Total Treatment Time (minutes): 18 SUBJECTIVE: Current Hospital Course: Chart reviewed; subdural hematoma, DTs, bipolar disorder, closed fracture of L rib, aphasia Reason for Occupational Therapy Consult: Safety assessment Relevant Past Medical History: Surbdural hematoma, Bipolar Affective disorder, DTs, aphasia Patient Report: Patient was pleasant throughout session, however was a questionable historian due to difficulty with word finding, memory and overall decreased cognition. I never used to be like this in my whole life. Home Environment Patient Lives With: Significant Other(questionable historian) Assistance Available: 24 Hour((reports Sahil is his boyfriend and is available to help him) Entry To Home: Stairs;With Rail Number Of Stairs Into Home: 5 Tub/Shower Type: walk in Prior Functional Level: Within Functional Limits Prior Functional Level Comments: Patient is a questionable historian due to confusion and difficulty with word finding OBJECTIVE: Cognition/Communication Deficits Orientation Deficits: Not oriented to Place;Not oriented to Time Responsiveness: Alert Follows Commands: 1-step Commands;Cueing Needed Cueing to Follow Commands: Moderate Memory Deficits: Short Term Executive Function Deficits: Categorization;Sequenci ng;Judgement;Insight to Deficits;Problem Solving;Motor Planning;Safety Awareness Categorization Deficit: Moderate impairment Sequencing Deficit: Moderate impairment Judgement Deficit: Moderate impairment Insight to Deficits: Moderate impairment Problem Solving Deficit: Moderate impairment Safety Awareness Deficit: Moderate impairment Cognitive Clinical Tests and Screens: Mini Cog Clock Draw Test: 0-Abnormal Word Recall: 1-recalled word Mini Cog Score: 1 Psychosocial Deficit: History of Bipolar disorder CURRENT FUNCTIONAL STATUS: Current Activities of Daily Living Assist Level Feeding Independent Grooming Contact Guard Assistance Bathing Upper Body Contact Guard Assistance Bathing Lower Body Contact Guard Assistance Dressing Upper Body Contact Guard Assistance Dressing Lower Body Contact Guard Assistance Toileting Contact Guard Assistance Functional Mobility Assist Level Rolling Supine to Sit Supervision Sit to Supine Supervision Scooting Sit to Stand Stand By Assistance Stand to Sit Stand By Assistance Bed to Chair Toilet/Commode Stand By Assistance Functional Mobility Contact Guard Assistance IV Pole Functional Mobility Comments: Functional mobility from bed to bathroom; toilet transfer Range of Motion: WFL Strength: WFL Except;Strength Limitation Comments Strength Limitation Comments: R shoulder 3+/5; bad right shoulder Activity Tolerance: Standing Activity Standing Activity: Functional mobility from bed to bathroom; toilet transfer Standing Activity Tolerance (in minutes): 3 Please see discipline specific clinical documentation flowsheet for complete details for this therapy evaluation/treatment. SIGNATURE: Swanpil Sharma/OT PATIENT NAME: Rhoda Poon DATE: June 16, 2019 TIME: 9:09 AM Normal [facility] Basic Panelon 06-15-2019 Creatinine [Mass/Vol] 0.39 mg/dL Low 0.67-1.17 [facility] Comment on above: Performed By: #### P T #### [address] [address] Urea nitrogen [Mass/Vol] 10 mg/dL Normal 7-18 [facility] Comment on above: Performed By: #### P T #### [address] [address] Anion gap [Moles/Vol] 10 mmol/L Normal 8-16 [facility] Comment on above: Performed By: #### P T #### [facility] [address] [place], [place] [address] Calcium [Mass/Vol] 9.2 mg/dL Normal 8.5-10.1 [facility] Comment on above: Performed By: #### P T #### [address] [address] CO2 [Moles/Vol] 28 mmol/L Normal 21-32 [facility] Comment on above: Performed By: #### P T #### [address] [address] Glucose [Mass/Vol] 101 mg/dL High 70-99 [facility] Comment on above: Performed By: #### P T #### [facility] [address] [place] [address] Chloride [Moles/Vol] 101 mmol/L Normal 98-107 [facility] Comment on above: Performed By: #### P T #### [facility] [address] [place] [address] Potassium [Moles/Vol] 3.5 mmol/L Normal 3.5-5.1 [facility] Comment on above: Performed By: #### P T #### [facility] [address] [place] [address] Sodium [Moles/Vol] 135 mmol/L Low 136-145 [facility] Comment on above: Performed By: #### P T #### [facility] [address] [place] [address] Hemogram/Diffon 06-15-2019 Abs Immature Grans 0.18 thou/cmm High 0.00-0.05 [facility] Comment on above: Performed By: #### P T #### [facility] [address] [place] [address] Abs Neut (ANC) 9.90 thou/cmm High 1.78-5.38 [facility] Comment on above: Performed By: #### P T #### [facility] [address] [place] [address] Abs. Baso 0.11 thou/cmm High 0.01-0.08 [facility] Comment on above: Performed By: #### P T #### [facility] [address] [place] [address] Abs. [place] 1.09 thou/cmm High 0.30-0.82 [facility] Comment on above: Performed By: #### P T #### [facility] [address] [place] [address] Basophils/100 WBC (Bld) 0.8 % Normal [facility] Comment on above: Performed By: #### P T #### [facility] [address] [place] [address] Eosinophils (Bld) [#/Vol] 0.41 thou/cmm Normal 0.04-0.54 [facility] Comment on above: Performed By: #### P T #### [facility] [address] [place], [place] [address] Eosinophils/100 WBC (Bld) 3.0 % Normal [facility] Comment on above: Performed By: #### P T #### [facility] [address] [place] [address] Erythrocyte distribution width (RBC) [Ratio] 13.9 % Normal 11.6-14.4 [facility] Comment on above: Performed By: #### P T #### [facility] [address] [place] [address] Hematocrit (Bld) [Volume fraction] 40.7 % Normal 40.1-51.0 [facility] Comment on above: Performed By: #### P T #### [place] [address] Hemoglobin (Bld) [Mass/Vol] 13.5 g/dL Low 13.7-17.5 [facility] Comment on above: Performed By: #### P T #### [place] [address] Immature Grans 1.30 % Normal [facility] Comment on above: Performed By: #### P T #### [place] [address] Lymphocytes (Bld) [#/Vol] 1.95 thou/cmm Normal 0.84-2.85 [facility] Comment on above: Performed By: #### P T #### [facility] [address] [place], [place] [address] Lymphocytes/100 WBC (Bld) 14.3 % Normal [facility] Comment on above: Performed By: #### P T #### [facility] [address] [place] [address] MCH (RBC) [Entitic mass] 32.0 pg Normal 25.7-32.2 [facility] Comment on above: Performed By: #### P T #### [facility] [address] [place], [place] [address] MCHC (RBC) [Mass/Vol] 33.2 % Normal 32.3-36.5 [facility] Comment on above: Performed By: #### P T #### [facility] [address] [place], [place] [address] MCV (RBC) [Entitic vol] 96.4 fL High 83.2-95.6 [facility] Comment on above: Performed By: #### P T #### [facility] [address] [place] [address] Monocytes/100 WBC (Bld) 8.0 % Normal [facility] Comment on above: Performed By: #### P T #### [facility] [address] [place] [address] Platelet mean volume (Bld) [Entitic vol] 8.8 fL Normal 8.7-12.0 [facility] Comment on above: Performed By: #### P T #### [facility] [address] [place] [address] Platelets (Bld) [#/Vol] 1105 thou/cmm Critically high 141-365 [facility] Comment on above: Result Comment: Repe ated AND verified Performed By: #### P T #### [facility] [address] [place] [address] RBC (Bld) [#/Vol] 4.22 mil/cmm Low 4.63-6.08 [facility] Comment on above: Performed By: #### P T #### [facility] [address] [place] [address] RDW SD 49.3 fl High 36.1-45.8 [facility] Comment on above: Performed By: #### P T #### [facility] [address] [place], [place] [address] Seg Neutrophil 72.6 % Normal [facility] Comment on above: Performed By: #### P T #### [facility] [address] [place], [place] [address] WBC (Bld) [#/Vol] 13.63 thou/cmm High 4.23-9.07 [facility] Comment on above: Performed By: #### P T #### [facility] [address] [place] [address] NURSING PROGon 06-15-2019 NURSING PROG HNO ID: [id number] Author: Lindsey (Rn) GILBERTO Kwong Service: ? Author Type: Registered Nurse Type: Nursing Progress Note Filed: 06/15/2019 7:34 AM Note Text: Sepsis alert rec'd for WBC 13.63 and [address] Jack notified and aware. Normal [facility] PROGRESSon 06-15-2019 PROGRESS HNO ID: [id number] Author: Lilliana Beltran Service: General Surgery Author Type: Physician Type: Progress Notes Filed: 06/15/2019 3:51 PM Note Text: Trauma Surgery Progress Note SERVICE DATE: 06/15/2019 Trauma Service Pager: For questions or concerns Mon-Fri 6a-5p please page [phone]. After 5pm and on Weekends and Holidays, please page [phone] if in ICU or [phone] if on RNF. SUBJECTIVE: Patient seen and examined this am. NAEON. AANDO x1 this am. 2L on IS this am. Tolerating diet DIET FOOD CONSISTENCY CONTROLLED Nausea No Emesis No Flatus Yes Bowel movement Yes x5 Pain Controlled Yes Ambulating Yes OBJECTIVE: Vitals: Temp (24hrs), Av.8 ?C (98.2 ?F), Min:36.2 ?C (97.2 ?F), Max:37.1 ?C (98.8 ?F) BP 137/94 Pulse (!) 55 Temp 37.1 ?C (98.8 ?F) (Temporal Artery) Resp 16 Ht 172.7 cm (5' 7.99) Wt 77.3 kg (170 lb 6.7 oz) SpO2 94% BMI 25.92 kg/m? O2 Therapy: Room Air IANDO: Date 06/14/19699 - 06/15/1958 06/15/196[address] - 06/16/19 0659 Shift 6586-1968 1096-2108 9183-5966 24 Hour Total 0799-9261 7747-1747 6860-6211 24 Hour Total INTAKE PO 980 263 9347 PO 046 286 7968 Gastric Tube 150 150 Tube Feed Intake (I/O) ([REMOVED] GI Feed 06/02/19 1446 Gastric Right Naris 12 Fr 06/14/19 1000) 150 150 Shift Total 150 228 573 5592 OUTPUT Urine 850 850 Void (ml) 850 850 Urine Not Saved. 2 x 5 x 4 x 11 x # of BMs Stool Incontinence 1 x 1 x Number of BMs 4 x 4 x Shift Total 850 850 Weight (kg) 77.3 77.3 77.3 77.3 77.3 77.3 77.3 77.3 MEDICATIONS Current Facility-Administered Medications Medication Dose Route Frequency - haloperidol lactate 5 mg injection (HALDOL) 5 mg INTRAVENOUS q 6 H PRN - senna-docusate 8.6-50 mg 1 tablet (SENNA-S) 1 tablet ORAL BID - oxyCODONE IR 5 mg tab(s) (ROXICODONE) 5 mg ORAL q 4 H PRN - ipratropium-albuterol 3 mL nebulizer solution (DUONEB) 3 mL INHALATION q 4 H while awake - cloNIDine HCl 0.1 mg tab(s) (CATAPRES) 0.1 mg ORAL/FEEDING TUBE q 8 H - aspirin 81 mg chewable tab(s) 81 mg ORAL/FEEDING TUBE DAILY - QUEtiapine 100 mg tab(s) (SEROquel) 100 mg ORAL/FEEDING TUBE BID - propranolol 20 mg tab(s) (INDERAL) 20 mg ORAL TID - levoFLOXacin iv piggyback 750 mg in D5W 150 mL (LEVAQUIN) 750 mg INTRAVENOUS DAILY - acetaminophen 975 mg tab(s) (TYLENOL) 975 mg ORAL QID - pill real estate investment analyst (patient-specific) 1 Each Miscell. (Med.Supl.;Non-Drugs) PRN - NaCl 0.9% 10 mL 10 mL INTRAVENOUS q 12 H - NaCl 0.9% 20 mL 20 mL INTRAVENOUS PRN - melatonin 9 mg tab(s) 9 mg ORAL DAILY (8 PM) - enoxaparin 30 mg injection (LOVENOX) 30 mg SUBCUTANEOUS BID - NaCl 0.9% 3-5 mL 3-5 mL INTRAVENOUS q 12 H - thiamine 100 mg tab(s) (VITAMIN B1) 100 mg ORAL TID Labs: Recent Labs 06/15/19 0241 06/14/19 0444 06/13/19 1239 06/13/19 0350 NA 135* 137 -- 133* K 3.5 3.3* -- 3.5 CHLOR 101 99 -- 94* CO2 28 30 -- 31 BUN 10 11 -- 11 CREAT 0.39* 0.40* -- 0.35* GLUC 101* 116* -- 184* ANION 10 11 -- 12 CA 9.2 9.1 -- 8.9 MG -- 2.0 -- 1.8 P -- 2.0* -- 2.5 WBC 13.63* 17.46* -- 29.19* HB 13.5* 13.4* -- 12.5* HCT 40.7 39.8* -- 38.5* PLT 1,105* 1,082* -- 1,020* PH -- -- 7.509* -- PCO2 -- -- 38.6 -- PO2 -- -- 127.0* -- BE -- -- 7.2* -- Exam: GENERAL: No distress, alert, cooperative NEURO: AANDOx1, CN II-XII grossly intact HEENT: normocephalic, atraumatic LUNGS: Unlabored breathing, 2L on IS this am CARDIAC: Regular rate, rhythm and BP as above ABDOMEN: Soft, non-tender, no rebound or guarding EXTREMITIES: DHALIWAL, No deformities, No edema SKIN: Skin color, texture, turgor normal, No rashes or lesions ASSESSMENT AND PLAN: Active Hospital Problems Diagnosis Date Noted - Fever 06/13/2019 - Leukocytosis 06/13/2019 - Cavitary pneumonia 06/13/2019 - Acute respiratory failure with hypercapnia ([facility]) 06/07/2019 - Malnutrition of mild degree ([facility]) 06/05/2019 - DTs (delirium tremens) ([facility]) 06/02/2019 - SAH (subarachnoid hemorrhage) ([facility]) 06/02/2019 - Closed fracture of one rib of left side 06/02/2019 - Closed fracture of vault of skull ([facility]) 06/02/2019 - Aphasia 06/02/2019 - Subdural hematoma ([facility]) 06/01/2019 - Bipolar affective disorder ([facility]) 12/21/2012 Overview Note: Diagnosed in ~1989 ? This is a 49 year old male with?below injuries and delirium tremens,?continuing leukocytosis and fever 1. Left posterolateral fifth rib fracture with adjacent lung contusions 2. Additional lung contusions vs infectious/inflammatory changes 3. There is an acute left occipital parietal temporal subdural hematoma estimated to measure approximately 5 mm maximal thickness. ?Small associated foci of internal gas. ?There is mild extension of subdural hemorrhage along the left tentorial leaflet.?Rightward midline shift of 2mm. 4. Nondisplaced obliquely oriented overlying calvarial fracture 5. Subarachnoid hemorrhage ? Traumatic Injuries: 1. As above Operations: 1. None Care Plan: 1. Current diet: DIET FOOD CONSISTENCY CONTROLLED 2. DVT: SCDs, LVX 3. Seroquel 100mg BID 4. BR: Senna-s 5. Tachycardic 1. Propranolol and BP meds given 6. Infection 1. Leukocytosis improving, 13.6 from 17 2. ID on board 3. Cx sensitive to levoquin 4. BAL 06/13: GNB ?7. Pain and nausea contol 8. Ethics consulted - Contact [facility] team for consent - Obtain brothers phone numbers from Mr. Kingsley Prophylaxis: 1. DVT ppx: SCD, LVX Consulted Services and Recommendations: 1. SICU, NSX, ID, Ethics Dispo Plannin. TBD Follow Up Needs: 1. TBD SIGNATURE: Gino Jack DO PATIENT NAME: Rhoda Poon DATE: June 15, 2019 TIME: 10:26 AM Pager: see below Trauma Service Pager: For questions or concerns Mon-Fri 6a-5p please page [phone]. After 5pm and on Weekends and Holidays, please page [phone] if in ICU or [phone] if on RNF. Trauma Staff Addendum: No acute events Doing well on the floor, no agitation Able to ambulate in room with minimal assistance Some difficulty finding words/expressing his thoughts, likely secondary to TBI (+) speech therapy cognitive evaluation already ordered Ongoing PT and OT evaluations Tolerating diet, abdomen is soft, NTND Decrease clonidine and propranolol dosing by 50% today Decrease seroquel dosing by 50% today Levaquin for PNA per ID team WBC normalizing Lungs CTAB Neurologic examination is non-focal Social work to assist with discharge planning Discussed the need to establish a POA with the patient today, he understands I have seen and examined this patient with the Trauma Surgery resident team, and I agree with the assessment and plan of care documented in the electronic medical record with the following comments. I have reviewed the necessary labs and imaging. Category of injuries include: ACTIVE PROBLEM LIST Hypertension Depression With Anxiety Tobacco Use Disorder Personal history of alcoholism (HCC) Depression Tremor Gerd (Gastroesophageal Reflux Disease) Bipolar Affective Disorder (Hcc) Epilepsy (Hcc) Pain of Upper Abdomen Subdural Hematoma (Hcc) Dts (Delirium Tremens) (Hcc) Sah (Subarachnoid Hemorrhage) (Hcc) Closed Fracture of One Rib of Left Side Closed Fracture of Vault of Skull (Hcc) Aphasia Malnutrition of Mild Degree (Hcc) Acute Respiratory Failure With Hypercapnia (Hcc) Fever Leukocytosis Cavitary Pneumonia Lililana Beltran MD Department of General Surgery Division of Trauma, Critical Care, and Acute Care Surgery June 15, 2019 3:47 PM Normal [facility] Basic Panelon 06-14-2019 Creatinine [Mass/Vol] 0.40 mg/dL Low 0.67-1.17 [facility]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 Screen Nonreactive Normal Nonreactive [facility] Comment on above: Performed By: #### P T #### [facility] [address] [place] [address] Hemogram/Diffon 06-13-2019 Abs Immature Grans 0.47 thou/cmm High 0.00-0.05 [facility] Comment on above: Performed By: #### P T #### [facility] [address] [place] [address] Abs Neut (ANC) 25.40 thou/cmm High 1.78-5.38 [facility] Comment on above: Performed By: #### P T #### [place] [address] Abs. Baso 0.15 thou/cmm High 0.01-0.08 [facility] Comment on above: Result Comment: Smea r scanned; tech agrees with automated differential Performed By: #### P T #### [facility] [address] [place] [address] Abs. [place] 1.52 thou/cmm High 0.30-0.82 [facility] Comment on above: Performed By: #### P T #### [place] [address] Basophils/100 WBC (Bld) 0.5 % Normal [facility] Comment on above: Performed By: #### P T #### [place] [address] Eosinophils (Bld) [#/Vol] 0.50 thou/cmm Normal 0.04-0.54 [facility] Comment on above: Performed By: #### P T #### [place] [address] Eosinophils/100 WBC (Bld) 1.7 % Normal [facility] Comment on above: Performed By: #### P T #### [place] [address] Immature Grans 1.60 % Normal [facility] Comment on above: Performed By: #### P T #### [facility] [address] [place], [place] [address] Lymphocytes (Bld) [#/Vol] 1.17 thou/cmm Normal 0.84-2.85 [facility] Comment on above: Performed By: #### P T #### [facility] [address] [place], [place] [address] Lymphocytes/100 WBC (Bld) 4.0 % Normal [facility] Comment on above: Performed By: #### P T #### [facility] [address] [place], [place] [address] Monocytes/100 WBC (Bld) 5.2 % Normal [facility] Comment on above: Performed By: #### P T #### [facility] [address] [place], [place] [address] Seg Neutrophil 87.0 % Normal [facility] Comment on above: Performed By: #### P T #### [facility] [address] [place] [address] Erythrocyte distribution width (RBC) [Ratio] 14.2 % Normal 11.6-14.4 [facility] Comment on above: Performed By: #### P T #### [facility] [address] [place], [place] [address] Hematocrit (Bld) [Volume fraction] 38.5 % Low 40.1-51.0 [facility] Comment on above: Performed By: #### P T #### [facility] [address] [place], [place] [address] Hemoglobin (Bld) [Mass/Vol] 12.5 g/dL Low 13.7-17.5 [facility] Comment on above: Performed By: #### P T #### [facility] [address] [place], [place] [address] MCH (RBC) [Entitic mass] 32.4 pg High 25.7-32.2 [facility] Comment on above: Performed By: #### P T #### [facility] [address] [place], [place] [address] MCHC (RBC) [Mass/Vol] 32.5 % Normal 32.3-36.5 [facility] Comment on above: Performed By: #### P T #### [facility] [address] [place], [place] [address] MCV (RBC) [Entitic vol] 99.7 fL High 83.2-95.6 [facility] Comment on above: Performed By: #### P T #### [facility] [address] [place] [address] Platelet mean volume (Bld) [Entitic vol] 8.9 fL Normal 8.7-12.0 [facility] Comment on above: Performed By: #### P T #### [facility] [address] [place] [address] Platelets (Bld) [#/Vol] 1020 thou/cmm Critically high 141-365 [facility] Comment on above: Performed By: #### P T #### [facility] [address] [place] [address] RBC (Bld) [#/Vol] 3.86 mil/cmm Low 4.63-6.08 [facility] Comment on above: Performed By: #### P T #### [facility] [address] [place] [address] RDW SD 52.4 fl High 36.1-45.8 [facility] Comment on above: Performed By: #### P T #### [facility] [address] [place] [address] WBC (Bld) [#/Vol] 29.19 thou/cmm Critically high 4.23-9.07 [facility] Comment on above: Performed By: #### P T #### [facility] [address] [place], [place] [address] Ionized Calciumon 06-13-2019 Ionized Ca,PH7.4 4.69 mg/dL Normal 4.61-5.17 [facility] Comment on above: Performed By: #### P T #### [facility] [address] [place], [place] [address] pH (Bld) 7.426 [pH] Normal 7.320-7.430 [facility] Comment on above: Performed By: #### P T #### [facility] [address] [place], [place] [address] Ionized Calcium 4.63 mg/dL Normal 4.61-5.17 [facility] Comment on above: Performed By: #### P T #### [facility] [address] [place], [place] [address] Magnesium Bloodon 06-13-2019 Magnesium [Mass/Vol] 1.8 mg/dL Normal 1.6-2.6 [facility] Comment on above: Performed By: #### P T #### [facility] [address] [place], [place] [address] NURSING PROGon 06-13-2019 NURSING PROG HNO ID: [id number] Author: Halina (Rn) GILBERTO Carroll Service: Nursing Author Type: Registered Nurse Type: Nursing Progress Note Filed: 06/13/2019 2:28 PM Note Text: Behavioral Restraints Summary and Debriefing Note PATIENT NAME: Rhoda Poon Date in Restraints 06-13-19 Time in Restraints 1345 Staff Member(s) present: Halina Carroll RN, Dr. Beltran Violent Restraints-Clinical Justification: Documentation required with Every Initial and Continued Order. The patient is demonstrating violent or self-destructive behavior that jeopardizes the immediate safety of the patient/others. Physician/LIP Notified: Emergency Restraint, Attending Notified and Order Obtained Length of Order: 4 Hours (Age 18 and Older) Police/Security Involvement: Full Physical Crisis Intervention Restraint Contraindications Considered: None Alternatives Attempted: Escalated Too Quickly for Alternative Intervention Response to Alternatives: Patient Would/Could Not Engage in Problem Solving, Patient Would/Could Not Follow Directions, Patient Would/Could Not Stay in Room Reason for Application: Combative Behavior, Risk of Harm to Self, Risk of Harm to Others Type of Restraint: Hard Right Wrist, Hard Right Ankle, Hard Left Wrist, Hard Left Ankle Verify Application: Yes, Proper Application Verified Criteria for Release: Demonstrates Decreased Psychomotor Activity Patient Explanation Provided: No Evidence of Understanding Family Notification: No Family Available Family Explanation Provided: No Family Available Supportive Interventions: 1:1 Support and Redirection, Clarification of Expectations, Medication (See MAR) Debriefing: Not Applicable Restraint Type Type of Restraint: Hard Right Wrist, Hard Right Ankle, Hard Left Wrist, Hard Left Ankle Describe incident and rationale for type of intervention selected: 1345. Patient was able to identify prec ipitants and suggest alternatives for next time situation occurs. Patient was not injured/harmed by experience. Response to debriefing and additional details: pt extubated, slightly confused but following commands Suggestions to prevent further episodes: 1345. Time out of Restraints 1345 Date of debriefin06/13/2019 Time of debriefin Halina Carroll RN 06/13/2019 [facility] NURSING PROG HNO ID: [id number] Author: Mynor LucasRn) GILBERTO Hernandez Service: ? Author Type: Registered Nurse Type: Nursing Progress Note Filed: 06/13/2019 9:16 AM Note Text: Nursing Progress: Topic: RESTRAINT NON-VIOLENT PATIENT NAME: Rhoda Poon PATIENT LOCATION: [place] [address]/[place] [address]* The patient demonstrates Attempting to Remove Medical Devices Vital to Medical Stability, Confusion, Lack of Understanding/Ability to Comply with Safety Directions, Impulsive Behavior, Inability to be Redirected, Inability to Retain Information Regarding Safety Directions as evidenced by the following behaviors intubation, essential medical devices in place which pose an imminent danger to self or others. The following interventions were attempted but were not effective in protecting the patient's safety: Alarms, Call Light Within Reach, Bed in Low/Locked Position Next, a comprehensive assessment was performed and warranted placing the patient in Soft Bilateral Wrists, the least restrictive restraint needed to protect the patient's safety. Ongoing safety assessments and evaluation for earliest removal of restraints will be performed. DATE: June 13, 2019 TIME: 8:00 AM Mynor Hernandez RN [facility] NURSING PROG HNO ID: [id number] Author: Kasandra LucasRnKim Rizo RN Service: Nursing Author Type: Registered Nurse Type: Nursing Progress Note Filed: 06/12/2019 10:32 PM Note Text: Nursing Progress: Topic: RESTRAINT NON-VIOLENT PATIENT NAME: Rhoda Poon PATIENT LOCATION: [id number]/[place] [address]* The patient demonstrates Attempting to Remove Medical Devices Vital to Medical Stability, Confusion, Lack of Understanding/Ability to Comply with Safety Directions, Impulsive Behavior, Inability to be Redirected, Inability to Retain Information Regarding Safety Directions as evidenced by the following behaviors Pt restless and pulling on tubes which pose an imminent danger to self or others. The following interventions were attempted but were not effective in protecting the patient's safety: Alarms, Call Light Within Reach, Bed in Low/Locked Position Next, a comprehensive assessment was performed and warranted placing the patient in Soft Bilateral Wrists, the least restrictive restraint needed to protect the patient's safety. Ongoing safety assessments and evaluation for earliest removal of restraints will be performed. DATE: June 12, 2019 TIME: 10:32 PM Kasandra Rizo RN [facility] PROGRESSon 06-13-2019 PROGRESS HNO ID: [id number] Author: Lilliana Beltran Service: Trauma Author Type: Physician Type: Progress Notes Filed: 06/13/2019 1:43 PM Note Text: SICU Addendum: Passed SBT, ABG without hypercarbia or hypoxemia, NIF -31, (+) cuff leak Tolerated extubation well, no stridor or hypoxia or arrhythmias Lilliana Beltran MD 06/13/19 1:42 PM [facility] PROGRESS HNO ID: [id number] Author: Kat Snyder Service: Infectious Disease Author Type: Physician Type: Progress Notes Filed: 06/13/2019 9:13 AM Note Text: Kat Snyder MD, MS, FACP, [facility] Division of Infectious Diseses [address] [place] [id number] Office: [phone] INFECTIOUS DISEASE CONSULT PROGRESS NOTE SERVICE DATE: 06/13/2019 SERVICE TIME: 9:07 AM Subjective INTERVAL HISTORY: Remains intubated, sedated, noncommunicative. D/W RN, issues with agitation overnight noted. PERTINENT ROS: Unable to obtain due to vent. Current Facility-Administered Medications Medication Dose Route Frequency - magnesium sulfate in water 2 g in sterile water 50 ml 2 g INTRAVENOUS ONCE - sodium phosphate 45 mmol in D5W 250 mL 45 mmol INTRAVENOUS ONCE - aspirin 81 mg chewable tab(s) 81 mg ORAL/FEEDING TUBE DAILY - vancomycin dosing and monitoring per pharmacy OTHER As Directed - QUEtiapine 100 mg tab(s) (SEROquel) 100 mg ORAL/FEEDING TUBE BID - propranolol 20 mg tab(s) (INDERAL) 20 mg ORAL TID - vancomycin 1.25 g in D5W 250 mL (VANCOCIN) 1.25 g INTRAVENOUS q 8 HR - levoFLOXacin iv piggyback 750 mg in D5W 150 mL (LEVAQUIN) 750 mg INTRAVENOUS DAILY - meropenem 2 g in NaCl 0.9% 100 mL (MERREM) 2 g INTRAVENOUS q 8 H - oxyCODONE IR 5 mg tab(s) (ROXICODONE) 5 mg ORAL q 4 H PRN - fentaNYL 50 mcg/mL 50 mcg injection (SUBLIMAZE) 50 mcg INTRAVENOUS q 2 H PRN - PHENobarbital 64.8 mg tab(s) 64.8 mg NASOGASTRIC q 8 HR - acetaminophen 975 mg tab(s) (TYLENOL) 975 mg ORAL QID - propofol infusion (DIPRIVAN) 0-30 mcg/kg/min ([place]) INTRAVENOUS CONTINUOUS - haloperidol lactate 5 mg injection (HALDOL) 5 mg INTRAMUSCULAR q 6 H PRN - pill real estate investment analyst (patient-specific) 1 Each Miscell. (Med.Supl.;Non-Drugs) PRN - NaCl 0.9% 10 mL 10 mL INTRAVENOUS q 12 H - NaCl 0.9% 20 mL 20 mL INTRAVENOUS PRN - Chlorhexidine Gluconate 0.12 % 15 mL (PERIDEX) 15 mL ORAL q 6 H - polyethylene glycol 3350 17 g packet (MIRALAX, GLYCOLAX) 17 g ORAL DAILY - melatonin 9 mg tab(s) 9 mg ORAL DAILY (8 PM) - cloNIDine HCl 0.2 mg tab(s) (CATAPRES) 0.2 mg ORAL/FEEDING TUBE q 8 H - enoxaparin 30 mg injection (LOVENOX) 30 mg SUBCUTANEOUS BID - ipratropium-albuterol 3 mL nebulizer solution (DUONEB) 3 mL INHALATION q 6 H PRN - potassium chloride ER 20-40 mEq tab(s) (K-DUR, KLOR-CON) 20-40 mEq ORAL/FEEDING TUBE PRN Or - potassium chloride iv piggyback 20 mEq/100 mL 20 mEq INTRAVENOUS PRN - magnesium sulfate in water 2 g in sterile water 50 ml 2 g INTRAVENOUS PRN - sodium phosphate 45 mmol in NaCl 0.9% 250 mL 45 mmol INTRAVENOUS PRN - calcium gluconate 4 g in NaCl 0.9% 250 mL 4 g INTRAVENOUS PRN - NaCl 0.9% 3-5 mL 3-5 mL INTRAVENOUS q 12 H - thiamine 100 mg tab(s) (VITAMIN B1) 100 mg ORAL TID Objective PHYSICAL EXAM: Vital Signs: BP 138/87 Pulse 99 Temp 36.4 ?C (97.5 ?F) Resp 22 Ht 172.7 cm (5' 7.99) Wt 77.3 kg (170 lb 6.7 oz) SpO2 98% BMI 25.92 kg/m? Tmax 37.2 HEENT moist mouth Lungs bilateral breath sounds Heart S1 S2 Abdomen soft, NT, ND Extremities no C/C/E DATA: Diagnostic Tests Reviewed for Today's Visit: Creatinine 0.3, WBC 29, sputum from yesterday pending, BC yesterday no growth, sputum with Pseudomonas, HIV and fungal labs P, quantiferon P Impression/Recommendati ons DTs (delirium tremens) ([facility]) POA: Yes Assessment AND Plan: Likely contributing to fevers. SAH (subarachnoid hemorrhage) ([facility]) POA: Yes Assessment AND Plan: Complicates management, can also be a source of fever. Closed fracture of vault of skull ([facility]) POA: Yes Assessment AND Plan: Per neuro. Acute respiratory failure with hypercapnia ([facility]) POA: No Assessment AND Plan: Vent weaning per ICU service. Fever POA: No Assessment AND Plan: Likely multifactorial. Better since antibiotics adjusted. Leukocytosis POA: No Assessment AND Plan: Decreased 29 from 40. Continue to monitor. Cavitary pneumonia POA: No Assessment AND Plan: I suspect from aspiration. Await lab results. On vanco, levaquin and meropenem day 2. DC vancomycin, await sensitivities of the Pseudomonas. Await fungal labs and quantiferon. CCT > [address] Bolton covers weekend SIGNATURE: Kat Snyder MD, MS, FACP, [facility] PATIENT NAME: Rhoda Poon DATE: June 13, 2019 TIME: 9:03 AM PAGER/CONTACT #: [phone] Normal [facility] PROGRESS HNO ID: [id number] Author: Lilliana Beltran Service: Critical Care Author Type: Physician Type: Progress Notes Filed: 06/13/2019 12:14 PM Note Text: INPATIENT SICU PROGRESS NOTE SICU Service Pager: For questions or concerns Mon-Sun 6a-5p please page [phone]. After 5pm and on Weekends and Holidays, please page [phone]. Subjective Subjective: Pt pulled ET tube out 5 cm last night. It was pushed back in and repeat CXR was fine. Pt does follow commands this AM. Current Facility-Administered Medications Medication Dose Route Frequency - potassium chloride ER 20-40 mEq tab(s) (K-DUR, KLOR-CON) 20-40 mEq ORAL/FEEDING TUBE PRN Or - potassium chloride iv piggyback 20 mEq/100 mL 20 mEq INTRAVENOUS PRN - magnesium sulfate in water 2 g in sterile water 50 ml 2 g INTRAVENOUS PRN - sodium phosphate 45 mmol in NaCl 0.9% 250 mL 45 mmol INTRAVENOUS PRN - calcium gluconate 4 g in NaCl 0.9% 250 mL 4 g INTRAVENOUS PRN - NaCl 0.9% 3-5 mL 3-5 mL INTRAVENOUS q 12 H - thiamine 100 mg tab(s) (VITAMIN B1) 100 mg ORAL TID - ipratropium-albuterol 3 mL nebulizer solution (DUONEB) 3 mL INHALATION q 6 H PRN - enoxaparin 30 mg injection (LOVENOX) 30 mg SUBCUTANEOUS BID - polyethylene glycol 3350 17 g packet (MIRALAX, GLYCOLAX) 17 g ORAL DAILY - melatonin 9 mg tab(s) 9 mg ORAL DAILY (8 PM) - cloNIDine HCl 0.2 mg tab(s) (CATAPRES) 0.2 mg ORAL/FEEDING TUBE q 8 H - Chlorhexidine Gluconate 0.12 % 15 mL (PERIDEX) 15 mL ORAL q 6 H - NaCl 0.9% 10 mL 10 mL INTRAVENOUS q 12 H - NaCl 0.9% 20 mL 20 mL INTRAVENOUS PRN - acetaminophen 975 mg tab(s) (TYLENOL) 975 mg ORAL QID - propofol infusion (DIPRIVAN) 0-30 mcg/kg/min ([place]) INTRAVENOUS CONTINUOUS - haloperidol lactate 5 mg injection (HALDOL) 5 mg INTRAMUSCULAR q 6 H PRN - pill real estate investment analyst (patient-specific) 1 Each Miscell. (Med.Supl.;Non-Drugs) PRN - oxyCODONE IR 5 mg tab(s) (ROXICODONE) 5 mg ORAL q 4 H PRN - fentaNYL 50 mcg/mL 50 mcg injection (SUBLIMAZE) 50 mcg INTRAVENOUS q 2 H PRN - PHENobarbital 64.8 mg tab(s) 64.8 mg NASOGASTRIC q 8 HR - aspirin 81 mg chewable tab(s) 81 mg ORAL/FEEDING TUBE DAILY - vancomycin dosing and monitoring per pharmacy OTHER As Directed - QUEtiapine 100 mg tab(s) (SEROquel) 100 mg ORAL/FEEDING TUBE BID - propranolol 20 mg tab(s) (INDERAL) 20 mg ORAL TID - vancomycin 1.25 g in D5W 250 mL (VANCOCIN) 1.25 g INTRAVENOUS q 8 HR - levoFLOXacin iv piggyback 750 mg in D5W 150 mL (LEVAQUIN) 750 mg INTRAVENOUS DAILY - meropenem 2 g in NaCl 0.9% 100 mL (MERREM) 2 g INTRAVENOUS q 8 H Objective VITAL SIGNS BP 147/91 Pulse 103 Temp (Src) 99 (Temporal) Resp 19 Ht 5' 7.992 (1.73m) Wt 170 lb 6.7 oz (77.3kg) SpO2 98% BMI 25.92 kg/(m2). O2 Therapy: Ventilator, %FIO2: 40 Temp (24hrs), Av.1 ?C (98.8 ?F), Min:36.9 ?C (98.4 ?F), Max:37.2 ?C (99 ?F) Date 06/12/19 07 - 06/13/19 0659 06/13/19 0700 - 06/14/19 0659 Shift 9191-7822 7711-8669 2271-1161 24 Hour Total 6074-1523 7275-9707 2625-8236 24 Hour Total INTAKE IV 437.4 413 850.4 NS 0.9% 75 38 113 Vancomycin IV 250 250 Propofol IV 162.4 125 287.4 Meropenem (Merrem) 100 100 Levofloxacin IVPB 100 100 Irrigants 60 40 100 Irrigant/Flush Amount In (GI Feed 06/02/19 1446 Gastric Right Naris 12 Fr) 60 40 100 Gastric Tube 259 524 783 Tube Feed Intake (I/O) (GI Feed 06/02/19 1446 Gastric Right [place] 12 Fr) 259 524 783 Shift Total 756.4 977 1733.4 OUTPUT Urine 659 769 0706 Void (ml) 941 311 9549 Output ( External Collection Device 06/04/191999) 340 340 # of BMs Number of BMs 3 x 3 x Shift Total 234 353 1177 Weight (kg) 77.3 77.3 77.3 77.3 77.3 77.3 77.3 77.3 PHYSICAL EXAM: GENERAL: awake, tracks with eyes, does follow commands with all 4 extremities this AM SKIN: Skin color, texture, turgor normal. No rashes or lesions. LUNGS: ventilated CARDIAC: sinus tachy ABDOMEN: soft, non-distended EXTREMITIES: restrained, no gross deformity NEURO: does not follow commands DATA: Diagnostic tests reviewed for today's visit: Recent Labs 06/11/19 1735 PH 7.442 PCO2 43.3 PO2 79.4* BE 4.8* Recent Labs 06/13/19 0350 06/12/19 0510 06/11/19 0350 CREAT 0.35* 0.35* 0.44* BUN 11 12 12 NA 133* 134* 136 K 3.5 4.0 3.9 CHLOR 94* 101 101 CO2 31 26 29 ANION 12 11 10 GLUC 184* 129* 136* CA 8.9 9.1 8.8 P 2.5 3.0 3.0 MG 1.8 2.1 2.1 WBC 29.19* 40.10* 18.65* HB 12.5* 13.7 12.7* HCT 38.5* 42.0 39.2* PLT 1,020* 1,017* 778* Assessment/Plan ACTIVE PROBLEM LIST Hypertension Depression With Anxiety Tobacco Use Disorder Personal history of alcoholism ([facility]) Depression Tremor Gerd (Gastroesophageal Reflux Disease) Bipolar Affective Disorder ([facility]) Epilepsy ([facility]) Pain of Upper Abdomen Subdural Hematoma ([facility]) Dts (Delirium Tremens) ([facility]) Sah (Subarachnoid Hemorrhage) ([facility]) Closed Fracture of One Rib of Left Side Closed Fracture of Vault of Skull ([facility]) Aphasia Malnutrition of Mild Degree ([facility]) Acute Respiratory Failure With Hypercapnia ([facility]) This is a 49 year old male with?below injuries and delirium tremens,?using less ativan, continuing leukocytosis and fever ? 1. Left posterolateral fifth rib fracture with adjacent lung contusions 2. Additional lung contusions vs infectious/inflammatory changes 3. There is an acute left occipital parietal temporal subdural hematoma estimated to measure approximately 5 mm maximal thickness. ?Small associated foci of internal gas. ?There is mild extension of subdural hemorrhage along the left tentorial leaflet.?Rightward midline shift of 2mm. 4. Nondisplaced obliquely oriented overlying calvarial fracture 5. Subarachnoid hemorrhage Neuro: - Pain Control:?tylenol, oxycodone, morphine prn - Sedation: seroquel, propofol, last day of phenobarb. Precedex is off. - Seizure ppx: Keppra course completed - still not back at neuro baseline, continue to monitor. CV: - tachycardic - scheduled propranolol and clonidine Resp: - ventilated Recent Labs 06/11/19 1735 PH 7.442 PCO2 43.3 PO2 79.4* BE 4.8* Respiratory/Nursing Documentation: O2 Therapy: Ventilator (06/13/19 0500) Invasive Ventilator Mode: Pressure Regulated Volume Control (06/13/19421) Set Ventilator Respiratory Rate (BPM): 10 (06/13/19421) Total Respiratory Rate (BPM): 13 (06/13/19421) Tidal Volume Set (mL): 480 (06/13/19421) Exhaled Tidal Volume (mL): 570 (06/13/19421) Minute Volume (L): 18.8 (06/13/19421) Peak Inspiratory Pressure (cm H2O): 11 (06/13/19421) PEEP/CPAP (cm H2O): 5 (06/13/19421) GI: - DIET TUBE FEED - CONTIN (NO TRAY) - having bowel function Renal: - monitor uop - replete lytes prn Potassium Date Value Ref Range Status 06/13/2019 3.5 3.5 - 5.1 mEq/L Final 06/12/2019 4.0 3.5 - 5.1 mEq/L Final 06/11/2019 3.9 3.5 - 5.1 mEq/L Final Phosphorus Date Value Ref Range Status 06/13/2019 2.5 2.5 - 4.9 mg/dL Final Magnesium Date Value Ref Range Status 06/13/2019 1.8 1.6 - 2.6 mg/dL Final Intake/Output Summary (Last 24 hours) at 06/12/2019 0659 Last data filed at 06/12/2019 0600 Gross per 24 hour Intake 2371.4 ml Output 3600 ml Net -1228.6 ml Heme: - lovenox Hemoglobin (g/dL) Date Value 10/26/2017 15.2 02/14/2017 16.0 12/12/2013 16.5 HGB (g/dL) Date Value 06/13/2019 12.5 06/12/2019 13.7 06/11/2019 12.7 Endo: - continue to monitor Glucose (mg/dL) Date Value 06/13/2019 184 ID: Temp (24hrs), Av.1 ?C (98.8 ?F), Min:36.9 ?C (98.4 ?F), Max:37.2 ?C (99 ?F) WBC Date Value Ref Range Status 06/13/2019 29.19 (HH) 4.23 - 9.07 thou/cmm Final - Cultures: - BCx NG at 2 days - UCx 06/12, no results yet - RCx 06/06: MSSA, Pseudomonas 06/12 BAL sample rare GNB - ID on board - Carlos, levoquin, vanc (dosed by pharm) Ext: - DVT ppx: scds - Restraints: yes - external cath Ppx: - DVT: lovenox - GI: tube feeds - Seizure: keppra course completed Lines: Central Line Double Lumen 06/09/19 1448 Peripherally Inserted (PICC) Left Arm 5.0 Welsh (Active) Peripheral 06/09/19 0700 Assessment Short Right Forearm 20 Gauge (Active) GI Feed 06/02/19 1446 Gastric Right Naris 12 Fr (Active) External Collection Device 06/04/19 2000 (Active) Airway 06/07/19 0900 (Active) Consults: - SICU, NSX, ID Dispo: NSICU Patient Checklist Deep vein thrombosis prophylaxis administered? Yes. Stress ulcer prophylaxis? No, not indicated.. Pain addressed? Yes. Nutrition: Enteral- Yes. TPN- No. PO- No. Restraints? Yes. Dispo needs assessed? No. SIGNATURE: Raudel Martínez MD PATIENT NAME: Rhoda Poon DATE: June 13, 2019 TIME: 6:15 AM PAGER: see below SICU Service Pager: For questions or concerns Mon-Fri 6a-5p please page [phone]. After 5pm and on Weekends and Holidays, please page [phone]. Critical Care Attestation Gradual improvement in neurologic status, now following commands with all 4 extremities. Response occasionally delayed but appropriate. No seizures. No fevers. Hemodynamics stable, no arrhythmias Lungs CTAB on mechanical ventilation, ongoing thick ETT secretions Bronchoscopy yesterday with scant distal secretions, suctioned and BAL sent Tolerating TFs with multiple daily BMs WBC decreased to 29.2 today PLT remains > 1 million, ASA therapy started today CXR unchanged/no new infiltrate PLAN- SBT today with ABG after 1 hr, neurologic status appropriate and agitation controlled at this time Seroquel, clonidine, propranolol, melatonin and phenobarbital taper (last dose today) for acute ETOH withdrawal Antibiotics per ID team Speech therapy for cognitive and swallow evaluations post-extubation The critical care treatment was mainly directed to address the following issues: ACTIVE PROBLEM LIST Hypertension Depression With Anxiety Tobacco Use Disorder Personal history of alcoholism (HCC) Depression Tremor Gerd (Gastroesophageal Reflux Disease) Bipolar Affective Disorder (Hcc) Epilepsy (Hcc) Pain of Upper Abdomen Subdural Hematoma (Hcc) Dts (Delirium Tremens) ([facility]) Sah (Subarachnoid Hemorrhage) ([facility]) Closed Fracture of One Rib of Left Side Closed Fracture of Vault of Skull ([facility]) Aphasia Malnutrition of Mild Degree ([facility]) Acute Respiratory Failure With Hypercapnia ([facility]) Fever Leukocytosis Cavitary Pneumonia I provided 32 minutes of critical care services which were necessary due to above specified injuries and illnesses. This patient has a high probability of sudden, clinical significant deterioration, which required the highest level of care and preparedness to intervene urgently. I managed and supervised life or organ supporting interventions that require frequent assessments. This time does not include time devoted to teaching and to any procedure I billed separately. I have personally seen and examined this patient and participated in the rojas components of this encounter with the multi-disciplinary ICU team. I discussed the management of this case with the resident and reviewed/confirmed their documentation, attached or in separate note. I personally reviewed today's actual images, the associated image reports, and current labs. I supervised the ordering of additional testing, imaging, labs, and/or consultations. The patient and/or family were fully informed of the findings and plan of care. They had the opportunity to ask questions and raise any issues of concern, all of which were answered and dealt with by me to their stated satisfaction. Management included sedation, pain control and ventilation assessment including need for ventilator, weaning and/or extubation as indicated. Management of critical care illnesses are edited above by me, including system by system plan and are not only limited to infectious disease and tailoring the antibiotic therapy, nutrition assessment and supplementation, electrolyte correction and prevention of ICU related complications using ventilator bundle, sedation holiday and assessment and removal of lines and tubes where indicated. DAILY ICU CHECKLIST: The following items were reviewed and are addressed in the plan of care above: *Need for Restraints. *Need for Zhang Catheter. *Need for Central Access Devices. *Daily Sedation Holiday. *VTE Prophylaxis. SIGNATURE: Lilliana Beltran MD PATIENT NAME: Rhoda Poon DATE: June 13, 2019 TIME: 12:02 PM Normal [facility] PROGRESS HNO ID: [id number] Author: Lakesha Wilkes Service: Trauma Author Type: Physician Type: Progress Notes Filed: 06/13/2019 10:28 AM Note Text: Trauma Progress Note SERVICE DATE: 06/13/2019 Trauma Service Pager: For questions or concerns Mon-Sun 6a-5p please page [phone]. After 5pm and on Weekends and Holidays, please page [phone] if in ICU or [phone] if on RNF. SUBJECTIVE: Pt pulled ET tube out 5 cm last night. It was pushed back in and repeat CXR was fine. Pt does not follow commands but follows with eyes. OBJECTIVE: Vitals: Temp (24hrs), Av.1 ?C (98.8 ?F), Min:36.9 ?C (98.4 ?F), Max:37.2 ?C (99 ?F) BP 149/93 Pulse 98 Temp 37.2 ?C (99 ?F) (Temporal) Resp 17 Ht 172.7 cm (5' 7.99) Wt 77.3 kg (170 lb 6.7 oz) SpO2 98% BMI 25.92 kg/m? O2 Therapy: Ventilator IANDO: Date 06/12/19699 - 06/13/1958 06/13/19699 - 06/14/19 0659 Shift 9822-3118 7650-3743 6383-3600 24 Hour Total 8070-9615 6330-1015 5172-0579 24 Hour Total INTAKE IV 437.4 413 850.4 NS 0.9% 75 38 113 Vancomycin IV 250 250 Propofol IV 162.4 125 287.4 Meropenem (Merrem) 100 100 Levofloxacin IVPB 100 100 Irrigants 60 40 100 Irrigant/Flush Amount In (GI Feed 06/02/19 1446 Gastric Right Naris 12 Fr) 60 40 100 Gastric Tube 259 524 783 Tube Feed Intake (I/O) (GI Feed 06/02/19 1446 Gastric Right Naris 12 Fr) 259 524 783 Shift Total 756.4 977 1733.4 OUTPUT Urine 683 982 6900 Void (ml) 941 916 5975 Output ( External Collection Device 06/04/19 2000) 340 340 # of BMs Number of BMs 3 x 3 x Shift Total 249 965 0144 Weight (kg) 77.3 77.3 77.3 77.3 77.3 77.3 77.3 77.3 MEDICATIONS Current Facility-Administered Medications Medication Dose Route Frequency - aspirin 81 mg chewable tab(s) 81 mg ORAL/FEEDING TUBE DAILY - vancomycin dosing and monitoring per pharmacy OTHER As Directed - QUEtiapine 100 mg tab(s) (SEROquel) 100 mg ORAL/FEEDING TUBE BID - propranolol 20 mg tab(s) (INDERAL) 20 mg ORAL TID - vancomycin 1.25 g in D5W 250 mL (VANCOCIN) 1.25 g INTRAVENOUS q 8 HR - levoFLOXacin iv piggyback 750 mg in D5W 150 mL (LEVAQUIN) 750 mg INTRAVENOUS DAILY - meropenem 2 g in NaCl 0.9% 100 mL (MERREM) 2 g INTRAVENOUS q 8 H - oxyCODONE IR 5 mg tab(s) (ROXICODONE) 5 mg ORAL q 4 H PRN - fentaNYL 50 mcg/mL 50 mcg injection (SUBLIMAZE) 50 mcg INTRAVENOUS q 2 H PRN - PHENobarbital 64.8 mg tab(s) 64.8 mg NASOGASTRIC q 8 HR - acetaminophen 975 mg tab(s) (TYLENOL) 975 mg ORAL QID - propofol infusion (DIPRIVAN) 0-30 mcg/kg/min ([place]) INTRAVENOUS CONTINUOUS - haloperidol lactate 5 mg injection (HALDOL) 5 mg INTRAMUSCULAR q 6 H PRN - pill real estate investment analyst (patient-specific) 1 Each Miscell. (Med.Supl.;Non-Drugs) PRN - NaCl 0.9% 10 mL 10 mL INTRAVENOUS q 12 H - NaCl 0.9% 20 mL 20 mL INTRAVENOUS PRN - Chlorhexidine Gluconate 0.12 % 15 mL (PERIDEX) 15 mL ORAL q 6 H - polyethylene glycol 3350 17 g packet (MIRALAX, GLYCOLAX) 17 g ORAL DAILY - melatonin 9 mg tab(s) 9 mg ORAL DAILY (8 PM) - cloNIDine HCl 0.2 mg tab(s) (CATAPRES) 0.2 mg ORAL/FEEDING TUBE q 8 H - enoxaparin 30 mg injection (LOVENOX) 30 mg SUBCUTANEOUS BID - ipratropium-albuterol 3 mL nebulizer solution (DUONEB) 3 mL INHALATION q 6 H PRN - potassium chloride ER 20-40 mEq tab(s) (K-DUR, KLOR-CON) 20-40 mEq ORAL/FEEDING TUBE PRN Or - potassium chloride iv piggyback 20 mEq/100 mL 20 mEq INTRAVENOUS PRN - magnesium sulfate in water 2 g in sterile water 50 ml 2 g INTRAVENOUS PRN - sodium phosphate 45 mmol in NaCl 0.9% 250 mL 45 mmol INTRAVENOUS PRN - calcium gluconate 4 g in NaCl 0.9% 250 mL 4 g INTRAVENOUS PRN - NaCl 0.9% 3-5 mL 3-5 mL INTRAVENOUS q 12 H - thiamine 100 mg tab(s) (VITAMIN B1) 100 mg ORAL TID Labs: Recent Labs 06/13/19 0350 06/12/19 0510 06/11/19 1735 NA 133* 134* -- K 3.5 4.0 -- CHLOR 94* 101 -- CO2 31 26 -- BUN 11 12 -- CREAT 0.35* 0.35* -- GLUC 184* 129* -- ANION 12 11 -- CA 8.9 9.1 -- MG 1.8 2.1 -- P 2.5 3.0 -- WBC 29.19* 40.10* -- HB 12.5* 13.7 -- HCT 38.5* 42.0 -- PLT 1,020* 1,017* -- PH -- -- 7.442 PCO2 -- -- 43.3 PO2 -- -- 79.4* BE -- -- 4.8* PHYSICAL EXAM: GENERAL: awake, follows with eyes, does not follow commands SKIN: Skin color, texture, turgor normal. No rashes or lesions. LUNGS: ventilated CARDIAC: sinus tachy ABDOMEN: soft, non-distended EXTREMITIES: restrained, no gross deformity NEURO: does not follow commands ? ASSESSMENT AND PLAN: Active Hospital Problems Diagnosis Date Noted - Acute respiratory failure with hypercapnia (HCC) 06/07/2019 - Malnutrition of mild degree (HCC) 06/05/2019 - DTs (delirium tremens) ([facility]) 06/02/2019 - SAH (subarachnoid hemorrhage) ([facility]) 06/02/2019 - Closed fracture of one rib of left side 06/02/2019 - Closed fracture of vault of skull ([facility]) 06/02/2019 - Aphasia 06/02/2019 - Subdural hematoma ([facility]) 06/01/2019 - Bipolar affective disorder ([facility]) 12/21/2012 Overview Note: Diagnosed in ~1989 This is a 49 year old male with?below injuries and delirium tremens,?using less ativan, continuing leukocytosis and fever ? 1. Left posterolateral fifth rib fracture with adjacent lung contusions 2. Additional lung contusions vs infectious/inflammatory changes 3. There is an acute left occipital parietal temporal subdural hematoma estimated to measure approximately 5 mm maximal thickness. ?Small associated foci of internal gas. ?There is mild extension of subdural hemorrhage along the left tentorial leaflet.?Rightward midline shift of 2mm. 4. Nondisplaced obliquely oriented overlying calvarial fracture 5. Subarachnoid hemorrhage ? Operations: 1. none Care Plan: 1. Infection 1. Leukocytosis improved 2. ID on board 3. Carlos, levoquin, vanc 4. BAL 06/13: GNB 5. Awaiting rest of cultures 2. Current diet order: DIET TUBE FEED - CONTIN (NO TRAY) 3. precedex off, last day of phenobarb, propofol at 30 Consulted Services and recs: 1. SICU 2. NSX 3. ID Dispo Plannin. NSICU Prophylaxis and Protocols: 1. DVT PPx: Yes. 2. Ulcer PPx indicated: No. 3. Vit D level monitoring if > 65 yo: No. Incidentals: 1. none Follow Up Needs: 1. tbd Assessment and plan discussed with attending: Dr. Wilkes Trauma Service Pager: For questions or concerns Mon-Fri 6a-5p please page [phone]. After 5pm and on Weekends and Holidays, please page [phone] if in ICU or [phone] if on RNF. SIGNATURE: Raudel Martínez MD PATIENT NAME: Rhoda Poon DATE: June 13, 2019 TIME: 6:12 AM Attending Note I personally saw and examined the patient. I reviewed the resident's note. I agree with the resident's assessment and plan unless otherwise noted. As above Improved mental status Open eyes spontaneously and tracks On vent IV antibiotics Wean propofol and sedatives TF Looks like he may escape trach/PEG Signature: Lakesha Wilkes MD Date: 06/13/2019 Time: 10:25 AM Normal [facility] Phosphorus Bloodon 9 Phosphate [Mass/Vol] 2.5 mg/dL Normal 2.5-4.9 [facility] Comment on above: Performed By: #### P T #### [facility] [address] [place] [address] THERAPY NTon 06-13-2019 THERAPY NT HNO ID: [id number] Author: Stephanie ([employer] Teammate) MANUEL Dai/REDDY Service: Speech/Swallow Author Type: Speech Language Pathologist Type: Therapy (PT/OT/Speech/Resp) Filed: 06/13/2019 3:12 PM Note Text: Speech Therapy Clinical Swallow Evaluation SERVICE DATE: 06/13/2019 SERVICE TIME: 1430 to 1450 ROOM: [place] [address] Nursing Recommendations: See swallow guide posted in patients room Diet Recommendations: Dysphagia Level 2 (Dysphagia Mechanically Altered) Thin Liquids IDDSI Level 0 Medications whole in puree (pudding/applesauce) Swallowing Precautions Recommendations: Alert (patient should be fully alert for P.O. Intake) Sit upright 90 degrees for all PO Supervision/Assistance for meals. Small Bite/Sip Feed / Eat at a slow rate Results and Recommendations Discussed With: Patient;Nurse Recommended Discharge Disposition: Continued Skilled Speech Therapy IMPRESSION: Patient demonstrates oral pharyngeal dysphagia which is negatively impacting his/her ability to effectively maintain adequate nutrition and hydration and/or airway safety. Recommend the modified diet mentioned above due to safety concerns with the decreased cognition. Rehabilitation Precautions: Aspiration Precautions ASSESSMENT: Patient is awake, alert and talkative; although quite confused Clear vocal quality post extubation Patient not cooperative with oral examination Patient is attempting to feed himself but is limited due to soft wrist restraints Able to swallow thin liquids from cup and straw without signs/symptoms of aspiration Able to swallow puree without signs/symptoms of aspiration Slow chewing with oral residuals; concern for aspiration risk with dry solids due to decreased cognition Recommend the modified diet as mentioned above Patient will benefit from Speech Therapy for reassessment for potential diet advancement Tolerated Full Session Goals for Plan of Care: Swallow Goals: Patient will tolerate Dysphagia Level 2 (Dysphagia Mechanically Altered) diet consistency while utilizing compensatory/swallowing strategies given minimal cues in 90% of trials so that the patient will minimize the signs/symptoms of dysphagia. Patient will tolerate Thin Liquids IDDSI Level 0 consistency while utilizing compensatory/swallowing strategies given minimal cues in 90% of trials so that the patient will minimize the signs/symptoms of dysphagia. Caregiver will demonstrate adequate return of knowledge of all compensatory strategies/instruction to effectively assist the patient in immediate safety with oral intake and swallowing. Slower pace of feeding/eating. Patient /Caregiver Goals: Eat/Drink Without Restrictions Speech Rehab Potential: Good PLAN: Treatment Frequency (times per week): 2 Current admission Treatment Interventions: Dysphagia Management Plan of Care Developed with: Patient;Caregiver TREATMENT INTERVENTIONS: Therapy Diagnosis: Dysphagia, oropharyngeal phase Interventions Provided: Clinical Swallow Evaluation (92859) $ Clinical Swallow Evaluation (19032) Billed Units: 1 unit Total Treatment Time (minutes): 20 SUBJECTIVE: Current Hospital Course: Chart reviewed; This 49 year old male was admitted with a subdural hematoma. He experienced respiratory distress requiring pneumonia. Reason for Speech Therapy Consult: assess swallow post extubation Relevant Past Medical History: bipolar, epilepsy Patient Report: Patient not verbalizing meaningfully during this visit. Home Environment Prior Functional Level: Unable to Assess Assistance Available: Unable to determine at this time Prior Swallowing Function/Diet Textures: Unable to determine at this time Please see discipline specific clinical documentation flowsheet for complete details for this therapy evaluation/treatment. SIGNATURE: Stephanie Dai CCC-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 PATIENT NAME: Rhoda Pono DATE: June 13, 2019 TIME: 3:02 PM Normal [facility] Basic Panelon 06-12-2019 Creatinine [Mass/Vol] 0.35 mg/dL Low 0.67-1.17 [facility] Comment on above: Performed By: #### P 8 ####[address] [address] Anion gap [Moles/Vol] 11 mmol/L Normal 8-16 [facility] Comment on above: Performed By: #### P 8 ####[address] [address] Calcium [Mass/Vol] 9.1 mg/dL Normal 8.5-10.1 [facility] Comment on above: Performed By: #### P 8 ####[facility] [place], [place] [address] CO2 [Moles/Vol] 26 mmol/L Normal 21-32 [facility] Comment on above: Performed By: #### P 8 ####[facility] [place], [place] [address] Glucose [Mass/Vol] 129 mg/dL High 70-99 [facility] Comment on above: Performed By: #### P 8 ####[facility] [place], [place] [address] Urea nitrogen [Mass/Vol] 12 mg/dL Normal 7-18 [facility] Comment on above: Performed By: #### P 8 ####[address] [address] Chloride [Moles/Vol] 101 mmol/L Normal 98-107 [facility] Comment on above: Performed By: #### P 8 ####[address] [address] Potassium [Moles/Vol] 4.0 mmol/L Normal 3.5-5.1 [facility] Comment on above: Performed By: #### P 8 ####[address] [address] Sodium [Moles/Vol] 134 mmol/L Low 136-145 [facility] Comment on above: Performed By: #### P 8 ####[address] [address] CASE MANAGEMon 06-12-2019 CASE MANAGEM HNO ID: [id number] Author: Kaitlin Varghese (Sw) Service: Care Management Author Type: Large Sheetfed Press Operator Type: Care Mgt Progress Note Filed: 06/12/2019 2:30 PM Note Text: CARE MANAGEMENT PROGRESS NOTE SERVICE DATE: 06/12/2019 SERVICE TIME: 2:20 PM LOS: 11 days NOK and self pay Phone call with pt friend, Wolfgang, who reports pt does not have children and both parents are . Friend states he reached out to brother in [facility] last week but has not heard back (they have been estranged for 15 years). Ethics consulted and involved. Phone call with [employer] who reports leaving message with pt friend on Sunday (06/11); advised that SW just spoke with friend and he has information re: pt income and job status. SIGNATURE: LUZ MARIA Rodriguez PATIENT NAME: Rhoda Poon DATE: June 12, 2019 TIME: 2:20 PM PAGER/CONTACT #: [facility] CASE MANAGEM HNO ID: [id number] Author: Stephanie (Rn) GILBERTO Cruz Service: Care Management Author Type: Registered Nurse Type: Care Mgt Progress Note Filed: 06/12/2019 10:54 AM Note Text: CARE MANAGEMENT PROGRESS NOTE SERVICE DATE: 06/12/2019 SERVICE TIME: 10:49 AM LOS: 11 days Needs Prior to Discharge: To Be Determined Notes reviewed in [facility]. Patient remains on Vent. No family present. Spoke with RN. Patient following commands intermitently. Hopeful to wean patient from vent. Patient has no POA. Has sig. other Sahil [phone] who has been in to see patient a couple of time. No POA. SW asked to follow as may need guardian. Referral for [facility] placed as patient will likely need placement at discharge. CM/SW to continue to follow for needs. SIGNATURE: Stephanie Cruz RN PATIENT NAME: Rhoda Poon DATE: June 12, 2019 TIME: 10:49 AM PAGER/CONTACT #: [phone] [facility] CONSULTon 06-12-2019 CONSULT HNO ID: [id number] Author: Kat Snyder Service: Infectious Disease Author Type: Physician Type: Consults Filed: 06/13/2019 8:05 AM Note Text: [facility] - Consultation PATIENT NAME: RHODA POON CSN: [id number] DATE OF : 1970 SEX/AGE: M/49 PATIENT TYPE: I HOSP SV: ICU LOCATION: [id number] DATE OF SERVICE: 06/12/2019 TIME OF SERVICE: 11:05 AM REASON FOR CONSULTATION: Fever, leukocytosis, antibiotic management. HISTORY OF PRESENT ILLNESS: The patient is a 49-year-old man with heavy alcohol abuse who was transferred from [facility] to the Trauma Surgery Service back on 06/01. All the history is obtained by reviewing the chart as patient is currently intubated, in the ICU. Per the chart, he was found to be confused by his neighbors and taken to the [facility]. There, he was found to have left subdural hematoma and a left parietal bone fracture. He was confused and was transferred to [facility]. He was admitted to the Trauma Surgery Service. His initial white blood cell count was noted to be 11.9. Today, it has risen to 40.1. Yesterday, 06/11, he had a T-max is 37.8. His white blood cell count increased up to 18.6. He was started on Zosyn. Today, he had a CT scan of the chest, abdomen, and pelvis as well as the brain. CAT scan of the brain shows an evolving acute intracerebral subdural and intraventricular hemorrhage. There was bilateral cerebral convexity, subdural hygromas had decreased in size. CAT scan of the chest showed scattered focal peribronchial infiltrates, several of which were cavitated underlying infection was suspected. There are fairly extensive emphysematous changes. CAT scan of the abdomen and pelvis showed colonic diverticula without diverticulitis. There is central bile duct dilation and no obstructive lesion was seen. This morning he had a fever of 38.4. We have been asked to make further antibiotic recommendations. All history is obtained from reviewing the chart as the patient is currently intubated, in the ICU. PAST MEDICAL HISTORY: Alcohol abuse, bipolar disorder, seizure disorder, GERD, hypertension. PAST SURGICAL HISTORY: Facial surgery and clavicle fracture. ALLERGIES: Vicodin and morphine. CURRENT MEDICATIONS: Tylenol, aspirin, Peridex, Catapres, Lovenox, polyethylene glycol, Inderal, vancomycin. SOCIAL HISTORY: Patient smokes cigarettes 1/2 packs per day. He abuses alcohol and does not use drugs per the chart. FAMILY HISTORY: His parents are apparently both alive and healthy per the chart. REVIEW OF SYSTEMS: Unobtainable secondary to he is on the ventilator. PHYSICAL EXAMINATION: VITAL SIGNS: T-current 36.9, T-max is 38.4, pulse 96, respiratory rate 15, blood pressure 127/76. GENERAL APPEARANCE: This is a well-developed, middle-aged man, who is intubated and briefly opens his eyes. HEENT: Normocephalic, atraumatic. Anicteric sclerae. His dentition looks poor. Oral mucosa was moist. NECK: Supple. LUNGS: Bilateral breath sounds. No rhonchi or wheezing appreciated. CARDIOVASCULAR: Regular rate and rhythm. S1, S2. I do not hear any murmurs, rubs, or gallops. ABDOMEN: Flat, soft, nontender. Positive bowel sounds. EXTREMITIES: No clubbing, cyanosis, or edema. There is PICC line in the left arm. There is no erythremia. No tenderness. SKIN: Warm, dry. No rashes. LABORATORY DATA: Procalcitonin of 0.1. Blood cultures from today in process. Sputum culture today in process. White count 40.1, hemoglobin 13.7, platelet count 117. Sodium 134, potassium 4.0, chloride 101, CO2 of 26, glucose 129, BUN 12, creatinine 0.3. ASSESSMENT AND PLAN: This is a 49-year-old man with multiple medical problems including heavy alcohol abuse who was transferred from [facility] for change in mental status. He was found to have an intracranial hemorrhage. He has been having ongoing fevers and has been on vancomycin and Zosyn. I think the differential diagnosis for the source of fevers includes possibly line-related bacteremia, the cavitary pneumonia, which is likely from aspiration, or possibly from the intracranial hemorrhage itself. Intracranial hemorrhage could also explain leukocytosis. At this point, I am going to check a QuantiFERON assay. We will check a [id number] assay. We are going to check an HIV test. I am going to check a galactomannan. We will follow up all the culture results. I am going to empirically start him on vancomycin, meropenem, and Levaquin. I will deescalate the antibiotics based on cultures. Thank you for this consultation. I will follow closely with you. Kat Snyder MD, MS, [facility], [facility] Infectious Disease RRW:modl /[id number] [facility] CONSULT HNO ID: [id number] Author: Kat Snyder Service: Infectious Disease Author Type: Physician Type: Consults Filed: 06/12/2019 11:13 AM Note Text: 11:12 AM Consult dictated # [id number] Await culture results. Check more labs. Start vanco, meropenem and levaquin. Will de-escalate based on culture data. Normal [facility] CONSULT [place] 06-12-2019 CONSULT PROG HNO ID: [id number] Author: Shama Mathew (Research Physiologist) Service: Pharmacy Author Type: Pharmacist Type: Consult Progress Note Filed: 06/12/2019 4:47 PM Note Text: PHARMACY VANCOMYCIN DOSING NOTE Patient Name: Rhoda Poon Admission Date: 06/01/2019 Date of Consult: 06/12/2019 Time of Consult: 4:23 PM Indication: Pneumonia Goal Range: 15-25 mcg/mL RECOMMENDATIONS/PLAN: Pharmacy consulted for vancomycin dosing for Rhoda Poon, a 49 year old, male who is being treated with vancomycin for pneumonia. Endotracheal cultures from 06/12/19 pending. 1. Patient is currently ordered vancomycin 1.25 g IV Q8H. Today is day 1 of therapy. - Patient was also given a 2 g loading dose due to critical illness and increased severity despite antibiotics - Dosed at 1.25 g, to ensure patient is receiving at least 15 mg/kg 2. No vancomycin level has been drawn for this dosing regimen. 3. The present dose of vancomycin is the recommended dosage for this patient at this time. Continue therapy as prescribed. 4. The next vancomycin level will be ordered for 06/13/19 @ 2100 unless clinically indicated sooner. (Pharmacy will order) - Will await culture results to see if deescalation of antibiotics is appropriate Vivien spoke with Dr. Snyder in regards to adjusting antibiotic dosing. Recommended meropenem increased to 2 g Q8H and levofloxacin increased to 750 mg daily. We will follow patient renal function, vancomycin levels and doses with you during the course of therapy. Additional recommendations will appear in follow up notes. If you have any questions, please contact pharmacy at [phone] (7a-5p), [phone] (after 5p). Age: [age] year old Allergies: ALLERGIES Allergen Reactions - Morphine Mental Status Change Patient's contact reports nightmares - Vicodin [Hydrocodon* Mental Status Change States has bad nightmares Last 3 Encounter Wt Readings: Date: Wt: 06/01/2019 77.3 kg (170 lb 6.7 oz) 01/30/2018 89.4 kg (197 lb) 01/04/2018 83 kg (183 lb) Last 1 Encounter Ht Readings: Date: Ht: 06/01/2019 172.7 cm (5' 7.99) CrCl: 249.7 mL/min Temp (24hrs), Av.1 ?C (98.7 ?F), Min:34 ?C (93.2 ?F), Max:38 ?C (100.4 ?F) - Current Temp: 37.1 ?C (98.8 ?F) Labs BUN (mg/dL) Date Value 06/12/2019 12 06/11/2019 12 06/10/2019 8 Creatinine (mg/dL) Date Value 06/12/2019 0.35 (L) 06/11/2019 0.44 (L) 06/10/2019 0.35 (L) WBC (thou/cmm) Date Value 06/12/2019 40.10 (HH) 06/11/2019 18.65 (H) 06/10/2019 19.92 (H) Vancomycin Levels: No results found for: KANDI Mathew, Research Physiologist [facility] CONSULT PROG HNO ID: [id number] Author: Giuliana Murillo Service: Bioethics Author Type: Bioethicist Type: Consult Progress Note Filed: 06/12/2019 1:01 PM Note Text: BIOETHICS PROGRESS NOTE SERVICE DATE: 06/12/2019 SERVICE TIME: 12:19 PM ETHICS QUESTION: Support for bronchoscopy (a decision that normally requires specific consent from patient or family) given that patient lacks capacity and does not have any family involved in his care. ETHICS RECOMMENDATIONS: 1. Bioethics supports proceeding with bronchoscopy with documentation from two physicians that the procedure is medically appropriate and in Mr. Poon's best interests (see Patients without Surrogates Standard Operating Procedure (SOP) below). 2. Please call Bioethics for future decisions that would require specific consen utntil Mr. Poon regains capacity or an authorized surrogate is identified. 3. For value-laden decisions, recommend involving emergency contact/former partner Sahil Kingsley ([phone]) to inform decision-making, even though Mr. Kingsley is not an authorized surrogate. ETHICS DISCUSSION AND ANALYSIS: Rec 1: Per discussion with medical team, bronchoscopy is needed to obtain a better culture and rule out infectious source. While bronchoscopy carries certain risks (bleeding, dislodgement of ET tube, possible airway trauma), on balance these risks are outweighed by its diagnostic purpose to develop appropriate plan of care for Mr. Poon. Per Patients without Surrogates SOP, two physicians should also document that the intervention is medically appropriate and in Mr. Poon's best interests. Rec 2: Pursuant to the Patients without Surrogates SOP, decisions where consent would normally be obtained from patient or family may proceed with support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 melatonin - Seizure ppx:?keppra - neuro checks - NSX?signed off, no neurosurgical intervention? - CT brain 06/09:stable CV: - tele - EKG if arrythmia -?scheduled clonidine and metoprolol Resp: - ventilated. Passed SBT yesterday afternoon. Repeat again this AM. - ABG pending this AM. - Mucomyst, chest physiotherapy - hope to extubate today. Recent Labs 06/11/19 1735 06/10/19 0427 PH 7.442 7.512* PCO2 43.3 32.0* PO2 79.4* 71.0* BE 4.8* 3.3* Respiratory/Nursing Documentation: O2 Therapy: Ventilator (06/12/19317) Invasive Ventilator Mode: Pressure Regulated Volume Control (06/12/19317) Set Ventilator Respiratory Rate (BPM): 10 (06/12/19317) Total Respiratory Rate (BPM): 28 (06/12/19317) Tidal Volume Set (mL): 480 (06/12/19317) Exhaled Tidal Volume (mL): 722 (06/12/19317) Minute Volume (L): 12.3 (06/12/19317) Peak Inspiratory Pressure (cm H2O): 15 (06/12/19317) PEEP/CPAP (cm H2O): 5 (06/12/19317) GI: - DIET TUBE FEED - CONTIN (NO TRAY). Possible diet post extubation. - Bowel Regimen: senna-S - had BM Renal: - adequate UOP. - serum and urine osmol check, not consistent with diabetes insipidus. - replete lytes prn Potassium Date Value Ref Range Status 06/12/2019 4.0 3.5 - 5.1 mEq/L Final 06/11/2019 3.9 3.5 - 5.1 mEq/L Final 06/10/2019 3.3 (L) 3.5 - 5.1 mEq/L Final Phosphorus Date Value Ref Range Status 06/12/2019 3.0 2.5 - 4.9 mg/dL Final Magnesium Date Value Ref Range Status 06/12/2019 2.1 1.6 - 2.6 mg/dL Final Intake/Output Summary (Last 24 hours) at 06/11/2019 0659 Last data filed at 06/11/2019 0500 Gross per 24 hour Intake 1984.7 ml Output 2800 ml Net -815.3 ml Heme: - lovenox. - Plt > 1000 this AM. Start ASA Hemoglobin (g/dL) Date Value 10/26/2017 15.2 02/14/2017 16.0 12/12/2013 16.5 HGB (g/dL) Date Value 06/12/2019 13.7 06/11/2019 12.7 06/10/2019 13.7 Endo: Glucose (mg/dL) Date Value 06/12/2019 129 ID: Temp (24hrs), Av.2 ?C (99 ?F), Min:34 ?C (93.2 ?F), Max:38.4 ?C (101.1 ?F) WBC Date Value Ref Range Status 06/12/2019 40.10 (HH) 4.23 - 9.07 thou/cmm Final -Cultures: ?- MRSA (-) ?- BCx NGTD ?- RCx Pseudomonas, MSSA, probable Klebsiella. - Zosyn - Procal 0.12 06/11. - Febrile to 38.4 yesterday. - WBC to 40 this AM. - Cultures resent. - CT HCAP this AM to check for possible source. - continue Zosyn currently. Ext: - DVT ppx: scds - Restraints: yes ? Ppx: - DVT: scds, lovenox - GI: not indicated - Seizure: keppra Lines: Arterial Line 06/07/19 0930 Arterial Line Left (Active) Central Line Double Lumen 06/09/19 1448 Peripherally Inserted (PICC) Left Arm 5.0 Welsh (Active) Peripheral 06/07/19 0812 Short Left Hand 20 Gauge (Active) Peripheral 06/07/19 1225 Short Right Hand 20 Gauge (Active) Peripheral 06/09/19 0700 Assessment Short Right Forearm 20 Gauge (Active) GI Feed 06/02/19 1446 Gastric Right Naris 12 Fr (Active) External Collection Device 06/04/19 2000 (Active) Airway 06/07/19 0900 (Active) Consults: - SICU, trauma, NSX ? Dispo: SICU ? Patient Checklist Deep vein thrombosis prophylaxis administered? Yes. Stress ulcer prophylaxis? No, not indicated.. Pain addressed? Yes. Nutrition: Enteral- Yes. TPN- No. PO- No. Restraints? Yes. Dispo needs assessed? No. Fanta De La Garza MD General Surgery, PGY-4 Pager - below 06/12/19 SICU Service Pager: For questions or concerns Mon-Fri 6a-5p please page [phone]. After 5pm and on Weekends and Holidays, please page [phone]. Critical Care Attestation Fevers and escalating leukocytosis despite broadspectrum antibiotic therapy Now with improved agitation, following commands more regularly Nonfocal examination Decreasing sedation as agitation permits Tolerating enteral nutrition, (+) stooling (+) diuresis with some element of hemoconcentration suspected Plan- CT brain to assess sinus and L mastoid (still with intermittent hemorrhagic L EAC drainage) CT chest to assess for occult infiltrate/effusion not seen on CXR CT a/p to assess for occult intraperitoneal process (cholecystitis/colitis/ etc) Bronchoscopy with targeted BAL No CVC site or line to remove, PICC line is new this week UA without obvious infection Cultures Consult to ID to assist with occult infection identification and treatment: adjust antibiotic coverage Ventilator weaning + SBT in the AM as agitation and sedation status permits. If persistent PLT > 1 million, will need ASA dosing The critical care treatment was mainly directed to address the following issues: ACTIVE PROBLEM LIST Hypertension Depression With Anxiety Tobacco Use Disorder Personal history of alcoholism (HCC) Depression Tremor Gerd (Gastroesophageal Reflux Disease) Bipolar Affective Disorder (Hcc) Epilepsy (Hcc) Pain of Upper Abdomen Subdural Hematoma (Hcc) Dts (Delirium Tremens) (Hcc) Sah (Subarachnoid Hemorrhage) (Hcc) Closed Fracture of One Rib of Left Side Closed Fracture of Vault of Skull (Hcc) Aphasia Malnutrition of Mild Degree (Hcc) Acute Respiratory Failure With Hypercapnia ([facility]) I provided 33 minutes of critical care services which were necessary due to above specified injuries and illnesses. This patient has a high probability of sudden, clinical significant deterioration, which required the highest level of care and preparedness to intervene urgently. I managed and supervised life or organ supporting interventions that require frequent assessments. This time does not include time devoted to teaching and to any procedure I billed separately. I have personally seen and examined this patient and participated in the rojas components of this encounter with the multi-disciplinary ICU team. I discussed the management of this case with the resident and reviewed/confirmed their documentation, attached or in separate note. I personally reviewed today's actual images, the associated image reports, and current labs. I supervised the ordering of additional testing, imaging, labs, and/or consultations. The patient and/or family were fully informed of the findings and plan of care. They had the opportunity to ask questions and raise any issues of concern, all of which were answered and dealt with by me to their stated satisfaction. Management included sedation, pain control and ventilation assessment including need for ventilator, weaning and/or extubation as indicated. Management of critical care illnesses are edited above by me, including system by system plan and are not only limited to infectious disease and tailoring the antibiotic therapy, nutrition assessment and supplementation, electrolyte correction and prevention of ICU related complications using ventilator bundle, sedation holiday and assessment and removal of lines and tubes where indicated. DAILY ICU CHECKLIST: The following items were reviewed and are addressed in the plan of care above: *Need for Restraints. *Need for Zhang Catheter. *Need for Central Access Devices. *Daily Sedation Holiday. *VTE Prophylaxis. SIGNATURE: Lilliana Beltran MD PATIENT NAME: Rhoda Poon DATE: June 12, 2019 TIME: 1:19 PM Normal [facility] PROGRESS HNO ID: [id number] Author: Lakesha Wilkes Service: General Surgery Author Type: Physician Type: Progress Notes Filed: 06/12/2019 10:44 AM Note Text: Trauma Progress Note SERVICE DATE: 06/12/2019 Trauma Service Pager: For questions or concerns Mon-Sun 6a-5p please page [phone]. After 5pm and on Weekends and Holidays, please page [phone] if in ICU or [phone] if on RNF. SUBJECTIVE: No acute events. Agitated overnight requiring Precedex. Passed SBT yesterday afternoon. Spent time on CPAP vent. Follows when not sedated, although agitated. OBJECTIVE: Vitals: Temp (24hrs), Av.2 ?C (99 ?F), Min:34 ?C (93.2 ?F), Max:38.4 ?C (101.1 ?F) BP 161/100 Pulse 100 Temp (!) 35.4 ?C (95.7 ?F) Resp 22 Ht 172.7 cm (5' 7.99) Wt 78 kg (171 lb 15.3 oz) SpO2 100% BMI 26.15 kg/m? O2 Therapy: Ventilator IANDO: Date 06/11/19 07 - 06/12/1958 06/12/19699 - 06/13/19 0659 Shift 4551-9454 9345-3616 8960-0544 24 Hour Total 1690-2239 0713-5684 5357-3909 24 Hour Total INTAKE IV 404 133.5 543.9 1081.4 NS 0.9% 76 32 331 439 Zosyn IV 200 100 300 Dexmedetomidine IV 63.4 63.4 Propofol IV 128 1.5 149.5 279 Irrigants 30 30 60 120 Irrigant/Flush Amount In (GI Feed 06/02/19 1446 Gastric Right Naris 12 Fr) 30 30 60 120 Gastric Tube 398 771 387 6799 Tube Feed Intake (I/O) (GI Feed 06/02/19 1446 Gastric Right Naris 12 Fr) 398 704 214 4037 Shift Total 832 327.5 1211.9 2371.4 OUTPUT Urine 808 066 2688 3600 Void (ml) 780 2100 2880 Output ( External Collection Device 06/04/191999) 520 200 720 # of BMs Number of BMs 1 x 2 x 3 x Shift Total 551 519 0446 3600 Weight (kg) 78 78 78 78 78 78 78 78 MEDICATIONS Current Facility-Administered Medications Medication Dose Route Frequency - dexmedetomidine 400 mcg in NaCl 0.9% 100 mL (PRECEDEX) 0.2-0.7 mcg/kg/hr INTRAVENOUS CONTINUOUS - oxyCODONE IR 5 mg tab(s) (ROXICODONE) 5 mg ORAL q 4 H PRN - fentaNYL 50 mcg/mL 50 mcg injection (SUBLIMAZE) 50 mcg INTRAVENOUS q 2 H PRN - PHENobarbital 97.2 mg tab(s) 97.2 mg NASOGASTRIC q 4 HR - propranolol 10 mg tab(s) (INDERAL) 10 mg ORAL TID - QUEtiapine 50 mg tablet (SEROquel) 50 mg ORAL/FEEDING TUBE QID - acetaminophen 975 mg tab(s) (TYLENOL) 975 mg ORAL QID - propofol infusion (DIPRIVAN) 0-20 mcg/kg/min ([place]) INTRAVENOUS CONTINUOUS - haloperidol lactate 5 mg injection (HALDOL) 5 mg INTRAMUSCULAR q 6 H PRN - pill real estate investment analyst (patient-specific) 1 Each Miscell. (Med.Supl.;Non-Drugs) PRN - piperacillin-tazobactam 4.5 g in D5W 100 mL MB+ (ZOSYN) 4.5 g INTRAVENOUS q 6 H - NaCl 0.9% 10 mL 10 mL INTRAVENOUS q 12 H - NaCl 0.9% 20 mL 20 mL INTRAVENOUS PRN - Chlorhexidine Gluconate 0.12 % 15 mL (PERIDEX) 15 mL ORAL q 6 H - polyethylene glycol 3350 17 g packet (MIRALAX, GLYCOLAX) 17 g ORAL DAILY - melatonin 9 mg tab(s) 9 mg ORAL DAILY (8 PM) - cloNIDine HCl 0.2 mg tab(s) (CATAPRES) 0.2 mg ORAL/FEEDING TUBE q 8 H - enoxaparin 30 mg injection (LOVENOX) 30 mg SUBCUTANEOUS BID - ipratropium-albuterol 3 mL nebulizer solution (DUONEB) 3 mL INHALATION q 6 H PRN - potassium chloride ER 20-40 mEq tab(s) (K-DUR, KLOR-CON) 20-40 mEq ORAL/FEEDING TUBE PRN Or - potassium chloride iv piggyback 20 mEq/100 mL 20 mEq INTRAVENOUS PRN - magnesium sulfate in water 2 g in sterile water 50 ml 2 g INTRAVENOUS PRN - sodium phosphate 45 mmol in NaCl 0.9% 250 mL 45 mmol INTRAVENOUS PRN - calcium gluconate 4 g in NaCl 0.9% 250 mL 4 g INTRAVENOUS PRN - NaCl 0.9% 3-5 mL 3-5 mL INTRAVENOUS q 12 H - thiamine 100 mg tab(s) (VITAMIN B1) 100 mg ORAL TID Labs: Recent Labs 06/12/19 0510 06/11/19 1095 06/11/19 0350 06/10/19 0427 NA 134* -- 136 -- K 4.0 -- 3.9 -- CHLOR 101 -- 101 -- CO2 26 -- 29 -- BUN 12 -- 12 -- CREAT 0.35* -- 0.44* -- GLUC 129* -- 136* -- ANION 11 -- 10 -- CA 9.1 -- 8.8 -- MG 2.1 -- 2.1 -- P 3.0 -- 3.0 -- WBC 40.10* -- 18.65* -- HB 13.7 -- 12.7* -- HCT 42.0 -- 39.2* -- PLT 1,017* -- 778* -- PH -- 7.442 -- 7.512* PCO2 -- 43.3 -- 32.0* PO2 -- 79.4* -- 71.0* BE -- 4.8* -- 3.3* PHYSICAL EXAM: GENERAL: sedated SKIN: Skin color, texture, turgor normal. No rashes or lesions. LUNGS: ventilated CARDIAC: Regular rate and rhythm as above, ABDOMEN: soft, non-distended EXTREMITIES: restrained, no gross deformity NEURO: sedated ASSESSMENT AND PLAN: Active Hospital Problems Diagnosis Date Noted - Acute respiratory failure with hypercapnia ([facility]) 06/07/2019 - Malnutrition of mild degree ([facility]) 06/05/2019 - DTs (delirium tremens) ([facility]) 06/02/2019 - SAH (subarachnoid hemorrhage) ([facility]) 06/02/2019 - Closed fracture of one rib of left side 06/02/2019 - Closed fracture of vault of skull ([facility]) 06/02/2019 - Aphasia 06/02/2019 - Subdural hematoma ([facility]) 06/01/2019 - Bipolar affective disorder ([facility]) 12/21/2012 Overview Note: Diagnosed in ~1989 This is a 49 year old male with?below injuries and delirium tremens,?using less ativan, continuing leukocytosis and fever ? 1. Left posterolateral fifth rib fracture with adjacent lung contusions 2. Additional lung contusions vs infectious/inflammatory changes 3. There is an acute left occipital parietal temporal subdural hematoma estimated to measure approximately 5 mm maximal thickness. ?Small associated foci of internal gas. ?There is mild extension of subdural hemorrhage along the left tentorial leaflet.?Rightward midline shift of 2mm. 4. Nondisplaced obliquely oriented overlying calvarial fracture 5. Subarachnoid hemorrhage Operations: 1. none Care Plan: 2. Management per SICU 1. Decreased propofol. 2. May decrease scheduled sedatives as able. 3. Investigate leukocystosis - procal 0.12 this 06/11. 4. WBC to 40 this AM. Cultures sent. 5. On zosyn. 6. CT HCAP this AM to look for source. 3. Current diet order: DIET TUBE FEED - CONTIN (NO TRAY) 4. NPO 5. Bowel regimen: senna s Prophylaxis: 6. DVT ppx: Trauma dosing of lovenox. Incidentals: 1. None ? Consulted Services and Recommendations: 1. SICU 2. NSX 3. PT/OT -?(p) ? Dispo Plannin. NSICU ? Follow Up Needs: 6. TBD Assessment and plan discussed with attending: Dr. Villatoro Trauma Service Pager: For questions or concerns Mon-Fri 6a-5p please page [phone]. After 5pm and on Weekends and Holidays, please page [phone] if in ICU or [phone] if on RNF. Fanta De La Garza MD General Surgery, PGY-4 Pager - below 06/12/19 Attending Note I personally saw and examined the patient. I reviewed the resident's note. I agree with the resident's assessment and plan unless otherwise noted. CT of head better CT of abdomen no pathology to explain fever CT of chest with possible nahum-hilar infiltrates can't R/O pneumonia On Propofol drip TF Cont Vent support IV antibiotics Seroquel Propofol SCD Lovenox Signature: Lakesha Wilkes MD Date: 06/12/2019 Time: 10:43 AM Normal [facility] PROGRESS HNO ID: [id number] Author: Rachel Robbins) Pradip Service: General Surgery Author Type: Resident Type: Progress Notes Filed: 06/12/2019 2:58 AM Note Text: Called for increasing agitation, arousal. Per nurse, patient got very agitated and attempted to self extubate- not improved with propofol/barbiturate/se roquel. Patient seen and evaluated bedside. Mild hypertension, tachycardia noted. Afebrile. In restraints. ETT in place. +thick, copious secretions noted per nursing. BP 154/90 Pulse 110 Temp 37 ?C (98.6 ?F) Resp 22 Ht 172.7 cm (5' 7.99) Wt 78 kg (171 lb 15.3 oz) SpO2 95% BMI 26.15 kg/m? D/w Dr. Villatoro. Will add precedex gtt temporarily to improve agitation/sedation. Will continue attempts to wean sedation. SBT in am. Rachel Moseley MD 06/12/2019 2:58 AM Normal [facility] Phosphorus Bloodon 9 Phosphate [Mass/Vol] 3.0 mg/dL Normal 2.5-4.9 [facility] Comment on above: Performed By: #### P HOS ####[facility] [place] [address] Procalcitoninon 06-12-2019 Procalcitonin 0.15 ng/mL Normal [facility] Comment on above: Result Comment: Leve ls <0.50 ng/mL represent a low risk of severe sepsis and/or septic shock, while levels >2.00 ng/mL represent an elevated risk of severe sepsis and/or septic shock. Levels <0.50 ng/mL do not exclude infection, as infections or systemic infections in early stages (<6hrs) can be associated with low concentrations. Levels between 0.50-2.00 ng/mL should be interpreted in the clinical context of the patient, as a variety of conditions such as , trauma, surgery and severe cardiogenic shock can cause procalcitonin elevations. Performed By: #### P T #### [place] [address] Urinalysis Routineon 019 Bacteria LM.HPF (Urine sed) [#/Area] NONE Normal None [facility] Comment on above: Performed By: #### P T #### [place] [address] Ep Cells Urine 1.3 /hpf Normal 0.0-5.0 [facility] Comment on above: Performed By: #### P T #### [place] [address] Hyaline Cast 0.3 /lpf Normal 0.0-1.0 [facility] Comment on above: Performed By: #### P T #### [facility] [address] [place] [address] RBC LM.HPF (Urine sed) [#/Area] 2.0 /[HPF] Normal 0.0-5.0 [facility] Comment on above: Performed By: #### P T #### [place] [address] WBC LM.HPF (Urine sed) [#/Area] 1.0 /[HPF] Normal 0.0-5.0 [facility] Comment on above: Performed By: #### P T #### [facility] [address] [place] [address] Appearance (U) CLOUDY Normal [facility] Comment on above: Performed By: #### P T #### [facility] [address] [place] [address] Bilirubin (U) [Mass/Vol] Negative Normal Negative [facility] Comment on above: Performed By: #### P T #### [facility] [address] [place] [address] Color (U) YELLOW Normal [facility] Comment on above: Performed By: #### P T #### [facility] [address] [place] [address] Glucose Ql (U) Negative Normal Negative [facility] Comment on above: Performed By: #### P T #### [place] [address] Hemoglobin,Urine Negative Normal Negative [facility] Comment on above: Performed By: #### P T #### [facility] [address] [place] [address] Ketone Urine Negative Normal Negative [facility] Comment on above: Performed By: #### P T #### [facility] [address] [place] [address] Leukocytes Esterase Negative Normal Negative [facility] Comment on above: Performed By: #### P T #### [place] [address] Nitrites Urine Negative Normal Negative [facility] Comment on above: Performed By: #### P T #### [facility] [address] [place] [address] pH (U) 6.5 [pH] Normal 5.0-8.0 [facility] Comment on above: Performed By: #### P T #### [facility] [address] [place] [address] Protein (U) [Mass/Vol] Negative Normal Negative [facility] Comment on above: Performed By: #### P T #### [address] [place], [place] [address] Specific [place], Ur 1.042 Abnormal 1.005-1.030 [facility] Comment on above: Performed By: #### P T #### [facility] [address] [place], [place] [address] Urobilinogen,Ur 0.2 EU/dL Normal 0.2-1.0 [facility] Comment on above: Performed By: #### P T #### [facility] [address] [place], [place] [address] XR CHEST 1V FRONTALon 2018 XR CHEST 1V FRONTAL * * *Final Report* * * DATE OF EXAM: Jun 12 2019 9:56PM [id number] - XR CHEST 1V FRONTAL / PROCEDURE REASON: Evaluate tube, line or lead position * * * * Physician Interpretation * * * * EXAMINATION: CHEST RADIOGRAPH (SINGLE VIEW AP OR PA) Clinical History: Evaluate tube, line or lead position M: [id number] Comparison: Same-day CT chest, chest radiograph RESULT: Lines, tubes, and devices: Not significantly changed. Lungs and pleura: No pneumothorax. No consolidative opacity. Mild left basal atelectasis and possible small left pleural effusion are unchanged. Cardiomediastinal silhouette: Normal cardiomediastinal silhouette. Other: IMPRESSION: No significant interval change. 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: HUGO Transcribe Date/Time: Jun 12 2019 10:01P Dictated by : MATILDA ROBLES MD This examination was interpreted and the report reviewed and electronically signed by: MATILDA ROBLES MD on Jun 12 2019 10:08PM EST Normal [facility] XR CHEST 1V FRONTAL * * *Final Report* * * DATE OF EXAM: Jun 12 2019 6:28AM [id number] - XR CHEST 1V FRONTAL / PROCEDURE REASON: Acute respiratory illness * * * * Physician Interpretation * * * * TECHNIQUE: XR CHEST 1V FRONTAL EXAM DATE: 06/12/2019 6:28 AM COMPARISON STUDIES: 06/09/2019 CLINICAL HISTORY: Acute respiratory illness RESULT: ET tube tip 5.5 cm proximal to the abel. Left-sided PICC line tip at the distal SVC. Feeding tube courses into the stomach beyond the inferior film margin. Patient is rotated. Low lung volumes. Grossly stable cardiomediastinal silhouette. No pneumothorax or focal consolidation. Left basilar atelectasis and suspect trace left pleural effusion. Remote left clavicular fracture. IMPRESSION: No interval change Left basilar atelectasis and suspect trace left pleural effusion 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: HUGO Transcribe Date/Time: Jun 12 2019 6:32A Dictated by : MERLENE QUARLES MD This examination was interpreted and the report reviewed and electronically signed by: MERLENE QUARLES MD on Jun 12 2019 6:36AM EST Normal [facility] Basic Panelon 06-11-2019 Creatinine [Mass/Vol] 0.44 mg/dL Low 0.67-1.17 [facility] Comment on above: Performed By: #### E RTRP #### [facility] [address] [place], [place] [address] Glucose [Mass/Vol] 136 mg/dL High 70-99 [facility] Comment on above: Performed By: #### E RTRP #### [address] [address] Anion gap [Moles/Vol] 10 mmol/L Normal 8-16 [facility] Comment on above: Performed By: #### E RTRP #### [address] [address] Calcium [Mass/Vol] 8.8 mg/dL Normal 8.5-10.1 [facility] Comment on above: Performed By: #### E RTRP #### [address] [address] CO2 [Moles/Vol] 29 mmol/L Normal 21-32 [facility] Comment on above: Performed By: #### E RTRP #### [facility] [address] [place], [place] [address] Urea nitrogen [Mass/Vol] 12 mg/dL Normal 7-18 [facility] Comment on above: Performed By: #### E RTRP #### [address] [address] Chloride [Moles/Vol] 101 mmol/L Normal 98-107 [facility] Comment on above: Performed By: #### E RTRP #### [facility] [address] [place], [place] [address] Potassium [Moles/Vol] 3.9 mmol/L Normal 3.5-5.1 [facility] Comment on above: Performed By: #### E RTRP #### [facility] [address] [place], [place] [address] Sodium [Moles/Vol] 136 mmol/L Normal 136-145 [facility] Comment on above: Performed By: #### E RTRP #### [facility] [address] [place], [place] [address] Blood Gas Arterialon 06-11-2 019 FIO2 40 % Normal [facility] Comment on above: Performed By: #### A BG ####[facility] [place], [place] [address] Base Excess 4.8 mmol/L High -3.0-3.0 [facility] Comment on above: Performed By: #### A BG ####[address] [address] HCO3 (Bld) [Moles/Vol] 29.0 mmol/L High 21.0-28.0 [facility] Comment on above: Performed By: #### A BG ####[facility] [place], [place] [address] O2% Sat Arterial 95.7 % Low 96.0-100.0 [facility] Comment on above: Performed By: #### A BG ####[facility] [place], [place] [address] PCO2 Arterial 43.3 mm Hg Normal 35.0-45.0 [facility] Comment on above: Performed By: #### A BG ####[address] [address] pH Arterial 7.442 Normal 7.350-7.450 [facility] Comment on above: Performed By: #### A BG ####[address] [address] PO2 Arterial 79.4 mm Hg Low 83.0-108.0 [facility] Comment on above: Performed By: #### A BG ####[facility] [place] [address] Hemogram/Diffon 06-11-2019 Abs Immature Grans 0.78 thou/cmm High 0.00-0.05 [facility] Comment on above: Performed By: #### E RTRP #### [facility] [address] [place] [address] Abs Neut (ANC) 14.21 thou/cmm High 1.78-5.38 [facility] Comment on above: Performed By: #### E RTRP #### [facility] [address] [place] [address] Abs. Baso 0.15 thou/cmm High 0.01-0.08 [facility] Comment on above: Result Comment: Smea r scanned; tech agrees with automated differential Performed By: #### E RTRP #### [facility] [address] [place] [address] Abs. [place] 1.53 thou/cmm High 0.30-0.82 [facility] Comment on above: Performed By: #### E RTRP #### [facility] [address] [place] [address] Basophils/100 WBC (Bld) 0.8 % Normal [facility] Comment on above: Performed By: #### E RTRP #### [facility] [address] [place] [address] Eosinophils (Bld) [#/Vol] 0.43 thou/cmm Normal 0.04-0.54 [facility] Comment on above: Performed By: #### E RTRP #### [facility] [address] [place] [address] Eosinophils/100 WBC (Bld) 2.3 % Normal [facility] Comment on above: Performed By: #### E RTRP #### [facility] [address] [place] [address] Immature Grans 4.20 % Normal [facility] Comment on above: Performed By: #### E RTRP #### [facility] [address] [place] [address] Lymphocytes (Bld) [#/Vol] 1.55 thou/cmm Normal 0.84-2.85 [facility] Comment on above: Performed By: #### E RTRP #### [facility] [address] [place], [place] [address] Lymphocytes/100 WBC (Bld) 8.3 % Normal [facility] Comment on above: Performed By: #### E RTRP #### [facility] [address] [place], [place] [address] Monocytes/100 WBC (Bld) 8.2 % Normal [facility] Comment on above: Performed By: #### E RTRP #### [facility] [address] [place], [place] [address] Seg Neutrophil 76.2 % Normal [facility] Comment on above: Performed By: #### E RTRP #### [facility] [address] [place], [place] [address] Erythrocyte distribution width (RBC) [Ratio] 14.6 % High 11.6-14.4 [facility] Comment on above: Performed By: #### E RTRP #### [facility] [address] [place], [place] [address] Hematocrit (Bld) [Volume fraction] 39.2 % Low 40.1-51.0 [facility] Comment on above: Performed By: #### E RTRP #### [facility] [address] [place], [place] [address] Hemoglobin (Bld) [Mass/Vol] 12.7 g/dL Low 13.7-17.5 [facility] Comment on above: Performed By: #### E RTRP #### [facility] [address] [place], [place] [address] MCH (RBC) [Entitic mass] 32.2 pg Normal 25.7-32.2 [facility] Comment on above: Performed By: #### E RTRP #### [facility] [address] [place], [place] [address] MCHC (RBC) [Mass/Vol] 32.4 % Normal 32.3-36.5 [facility] Comment on above: Performed By: #### E RTRP #### [facility] [address] [place], [place] [address] MCV (RBC) [Entitic vol] 99.5 fL High 83.2-95.6 [facility] Comment on above: Performed By: #### E RTRP #### [facility] [address] [place], [place] [address] Platelet mean volume (Bld) [Entitic vol] 9.0 fL Normal 8.7-12.0 [facility] Comment on above: Performed By: #### E RTRP #### [facility] [address] [place], [place] [address] Platelets (Bld) [#/Vol] 778 thou/cmm High 141-365 [facility] Comment on above: Performed By: #### E RTRP #### [facility] [address] [place] [address] RBC (Bld) [#/Vol] 3.94 mil/cmm Low 4.63-6.08 [facility] Comment on above: Performed By: #### E RTRP #### [facility] [address] [place], [place] [address] RDW SD 53.5 fl High 36.1-45.8 [facility] Comment on above: Performed By: #### E RTRP #### [facility] [address] [place], [place] [address] WBC (Bld) [#/Vol] 18.65 thou/cmm High 4.23-9.07 [facility] Comment on above: Performed By: #### E RTRP #### [facility] [address] [place], [place] [address] Ionized Calciumon 06-11-2019 Ionized Ca,PH7.4 4.75 mg/dL Normal 4.61-5.17 [facility] Comment on above: Performed By: #### E RTRP #### [facility] [address] [place], [place] [address] pH (Bld) 7.423 [pH] Normal 7.320-7.430 [facility] Comment on above: Performed By: #### E RTRP #### [facility] [address] [place], [place] [address] Ionized Calcium 4.70 mg/dL Normal 4.61-5.17 [facility] Comment on above: Performed By: #### E RTRP #### [facility] [address] [place], [place] [address] Magnesium Bloodon 06-11-2019 Magnesium [Mass/Vol] 2.1 mg/dL Normal 1.6-2.6 [facility] Comment on above: Performed By: #### M AG ####[address] [address] NURSING PROGon 06-11-2019 NURSING PROG HNO ID: [id number] Author: Gerson (Rn) GILBERTO Jeffrey Service: Nursing Author Type: Registered Nurse Type: Nursing Progress Note Filed: 06/11/2019 2:34 PM Note Text: Nursing Progress: Topic: RESTRAINT NON-VIOLENT PATIENT NAME: Rhoda Poon PATIENT LOCATION: [place] [address]/[place] [address] 0* The patient demonstrates Attempting to Remove Medical Devices Vital to Medical Stability, Confusion, Lack of Understanding/Ability to Comply with Safety Directions, Impulsive Behavior as evidenced by the following behaviors pt pulling at all tubes, life support, and lines which pose an imminent danger to self or others. The following interventions were attempted but were not effective in protecting the patient's safety: Contraindicated - Imminent Safety Risk Next, a comprehensive assessment was performed and warranted placing the patient in Soft Bilateral Wrists, the least restrictive restraint needed to protect the patient's safety. Ongoing safety assessments and evaluation for earliest removal of restraints will be performed. DATE: June 11, 2019 TIME: 2:33 PM Gerson Jeffrey RN Normal [facility] PROGRESSon 06-11-2019 PROGRESS HNO ID: [id number] Author: Lakesha Wilkes Service: General Surgery Author Type: Physician Type: Progress Notes Filed: 06/11/2019 11:03 AM Note Text: Trauma Progress Note SERVICE DATE: 06/11/2019 Trauma Service Pager: For questions or concerns Mon-Fri 6a-5p please page [phone]. After 5pm and on Weekends and Holidays, please page [phone] if in ICU or [phone] if on RNF. SUBJECTIVE: No acute events. Follows commands when sedation weaned. Agitated still with sedation weaning. Having bowel function. OBJECTIVE: Vitals: Temp (24hrs), Av.3 ?C (99.2 ?F), Min:36 ?C (96.8 ?F), Max:37.8 ?C (100 ?F) BP 141/83 Pulse 80 Temp 36.5 ?C (97.7 ?F) (Temporal Artery) Resp 21 Ht 172.7 cm (5' 7.99) Wt 80.3 kg (177 lb 0.5 oz) SpO2 94% BMI 26.92 kg/m? O2 Therapy: Ventilator IANDO: Date 06/10/196[address] - 06/11/1965806/11/196[address] - 06/12/19 0659 Shift 7319-3936 8880-6715 7867-6873 24 Hour Total 9206-4322 9918-4187 3665-7129 24 Hour Total INTAKE IV 335.7 89 247 671.7 NS 0.9% 71 54 30 155 Zosyn IV 100 100 Propofol IV 164.7 35 117 316.7 Levetiracetam IV 100 100 Irrigants 100 130 30 260 Irrigant/Flush Amount In (GI Feed 06/02/19 1446 Gastric Right Naris 12 Fr) 100 130 30 260 Gastric Tube 379 220 005 6514 Tube Feed Intake (I/O) (GI Feed 06/02/19 1446 Gastric Right Naris 12 Fr) 379 864 089 6136 Shift Total 814.7 212 411 0848.7 OUTPUT Urine 1300 384 949 9068 Output ( External Collection Device 06/04/191999) 1300 006 059 8956 Shift Total 1300 431 590 4470 Weight (kg) 80.3 80.3 80.3 80.3 80.3 80.3 80.3 80.3 MEDICATIONS Current Facility-Administered Medications Medication Dose Route Frequency - LORazepam 2 mg injection (ATIVAN) 2 mg INTRAVENOUS q 4 H - QUEtiapine 50 mg tablet (SEROquel) 50 mg ORAL/FEEDING TUBE QID - oxyCODONE IR 5 mg tab(s) (ROXICODONE) 5 mg ORAL q 4 H - acetaminophen 975 mg tab(s) (TYLENOL) 975 mg ORAL QID - propofol infusion (DIPRIVAN) 0-40 mcg/kg/min ([place]) INTRAVENOUS CONTINUOUS - metoprolol tartrate (short acting) 25 mg tab(s) (LOPRESSOR) 25 mg ORAL QID - haloperidol lactate 5 mg injection (HALDOL) 5 mg INTRAMUSCULAR q 6 H PRN - pill real estate investment analyst (patient-specific) 1 Each Miscell. (Med.Supl.;Non-Drugs) PRN - metoclopramide HCl 10 mg injection (REGLAN) 10 mg INTRAVENOUS q 8 H - piperacillin-tazobactam 4.5 g in D5W 100 mL MB+ (ZOSYN) 4.5 g INTRAVENOUS q 6 H - NaCl 0.9% 10 mL 10 mL INTRAVENOUS q 12 H - NaCl 0.9% 20 mL 20 mL INTRAVENOUS PRN - levETIRAcetam iv piggyback 1,000 mg in NaCl (iso-osmotic) 100 mL (KEPPRA) 1,000 mg INTRAVENOUS BID - Chlorhexidine Gluconate 0.12 % 15 mL (PERIDEX) 15 mL ORAL q 6 H - polyethylene glycol 3350 17 g packet (MIRALAX, GLYCOLAX) 17 g ORAL DAILY - melatonin 9 mg tab(s) 9 mg ORAL DAILY (8 PM) - cloNIDine HCl 0.2 mg tab(s) (CATAPRES) 0.2 mg ORAL/FEEDING TUBE q 8 H - metoprolol 5 mg injection (LOPRESSOR) 5 mg INTRAVENOUS q 6 H PRN - morphine 2 mg injection 2 mg INTRAVENOUS q 2 H PRN - enoxaparin 30 mg injection (LOVENOX) 30 mg SUBCUTANEOUS BID - ipratropium-albuterol 3 mL nebulizer solution (DUONEB) 3 mL INHALATION q 6 H PRN - potassium chloride ER 20-40 mEq tab(s) (K-DUR, KLOR-CON) 20-40 mEq ORAL/FEEDING TUBE PRN Or - potassium chloride iv piggyback 20 mEq/100 mL 20 mEq INTRAVENOUS PRN - magnesium sulfate in water 2 g in sterile water 50 ml 2 g INTRAVENOUS PRN - sodium phosphate 45 mmol in NaCl 0.9% 250 mL 45 mmol INTRAVENOUS PRN - calcium gluconate 4 g in NaCl 0.9% 250 mL 4 g INTRAVENOUS PRN - NaCl 0.9% 3-5 mL 3-5 mL INTRAVENOUS q 12 H - lidocaine 5 % 1 Patch (LIDODERM) 1 Patch TRANSDERMAL DAILY AT 9 PM And - lidocaine patch - REMOVE OTHER DAILY And - lidocaine - VERIFY PATCH OTHER q 8 H - thiamine 100 mg tab(s) (VITAMIN B1) 100 mg ORAL TID Labs: Recent Labs 06/11/19 0350 06/10/1942606/10/1942206/09/19 0315 NA 136 -- 135* < > -- K 3.9 -- 3.3* < > -- CHLOR 101 -- 101 < > -- CO2 29 -- 25 < > -- BUN 12 -- 8 < > -- CREAT 0.44* -- 0.35* < > -- GLUC 136* -- 146* < > -- ANION 10 -- 12 < > -- CA 8.8 -- 9.1 < > -- MG 2.1 -- 2.1 < > -- P 3.0 -- 2.5 < > -- WBC 18.65* -- 19.92* < > -- HB 12.7* -- 13.7 < > -- HCT 39.2* -- 41.4 < > -- PLT 778* -- 706* < > -- PH -- 7.512* -- -- 7.506* PCO2 -- 32.0* -- -- 34.8* PO2 -- 71.0* -- -- 68.2* BE -- 3.3* -- -- 4.6* < > = values in this interval not displayed. PHYSICAL EXAM: GENERAL: sedated SKIN: Skin color, texture, turgor normal. No rashes or lesions. LUNGS: ventilated CARDIAC: Regular rate and rhythm as above, ABDOMEN: soft, non-distended EXTREMITIES: restrained, no gross deformity NEURO: sedated ASSESSMENT AND PLAN: Active Hospital Problems Diagnosis Date Noted - Acute respiratory failure with hypercapnia ([facility]) 06/07/2019 - Malnutrition of mild degree ([facility]) 06/05/2019 - DTs (delirium tremens) ([facility]) 06/02/2019 - SAH (subarachnoid hemorrhage) ([facility]) 06/02/2019 - Closed fracture of one rib of left side 06/02/2019 - Closed fracture of vault of skull ([facility]) 06/02/2019 - Aphasia 06/02/2019 - Subdural hematoma ([facility]) 06/01/2019 - Bipolar affective disorder ([facility]) 12/21/2012 Overview Note: Diagnosed in ~1989 This is a 49 year old male with?below injuries and delirium tremens,?using less ativan, continuing leukocytosis and fever ? 1. Left posterolateral fifth rib fracture with adjacent lung contusions 2. Additional lung contusions vs infectious/inflammatory changes 3. There is an acute left occipital parietal temporal subdural hematoma estimated to measure approximately 5 mm maximal thickness. ?Small associated foci of internal gas. ?There is mild extension of subdural hemorrhage along the left tentorial leaflet.?Rightward midline shift of 2mm. 4. Nondisplaced obliquely oriented overlying calvarial fracture 5. Subarachnoid hemorrhage Operations: 1. none Care Plan: 2. Management per SICU 1. Decreased propofol. 2. May decrease scheduled sedatives as able. 3. Investigate leukocystosis - procal 0.12 this AM. 3. Current diet order: DIET TUBE FEED - CONTIN (NO TRAY) 4. NPO 5. Bowel regimen: senna s Prophylaxis: 6. DVT ppx: Trauma dosing of lovenox. Incidentals: 1. None ? Consulted Services and Recommendations: 1. SICU 2. NSX 3. PT/OT -?(p) ? Dispo Plannin. NSICU ? Follow Up Needs: 6. TBD Assessment and plan discussed with attending: Dr. Villatoro Trauma Service Pager: For questions or concerns Sun-Sun 6a- please page [phone]. After 5pm and on Weekends and Holidays, please page [phone] if in ICU or [phone] if on RNF. Fanta De La Garza MD General Surgery, PGY-4 Pager - below 06/11/19 Attending Note I personally saw and examined the patient. I reviewed the resident's note. I agree with the resident's assessment and plan unless otherwise noted. Remains on vent and heavily sedated Propofol drip Ativan Seroquel TF SCD Vent support and wean IV antibiotics Signature: Lakesha Wilkes MD Date: 06/11/2019 Time: 11:02 AM Normal [facility] PROGRESS HNO ID: [id number] Author: Lilliana Beltran Service: General Surgery Author Type: Physician Type: Progress Notes Filed: 06/11/2019 6:06 PM Note Text: INPATIENT SICU PROGRESS NOTE SICU Service Pager: For questions or concerns Sun-Sun 6a-5p please page [phone]. After 5pm and on Weekends and Holidays, please page [phone]. Subjective Subjective: NAEON. Improved agitation. Scheduled ativan. Follows commands when sedation weaned. Having bowel function. Current Facility-Administered Medications Medication Dose Route Frequency - potassium chloride ER 20-40 mEq tab(s) (K-DUR, KLOR-CON) 20-40 mEq ORAL/FEEDING TUBE PRN Or - potassium chloride iv piggyback 20 mEq/100 mL 20 mEq INTRAVENOUS PRN - magnesium sulfate in water 2 g in sterile water 50 ml 2 g INTRAVENOUS PRN - sodium phosphate 45 mmol in NaCl 0.9% 250 mL 45 mmol INTRAVENOUS PRN - calcium gluconate 4 g in NaCl 0.9% 250 mL 4 g INTRAVENOUS PRN - NaCl 0.9% 3-5 mL 3-5 mL INTRAVENOUS q 12 H - lidocaine 5 % 1 Patch (LIDODERM) 1 Patch TRANSDERMAL DAILY AT 9 PM And - lidocaine patch - REMOVE OTHER DAILY And - lidocaine - VERIFY PATCH OTHER q 8 H - thiamine 100 mg tab(s) (VITAMIN B1) 100 mg ORAL TID - ipratropium-albuterol 3 mL nebulizer solution (DUONEB) 3 mL INHALATION q 6 H PRN - morphine 2 mg injection 2 mg INTRAVENOUS q 2 H PRN - enoxaparin 30 mg injection (LOVENOX) 30 mg SUBCUTANEOUS BID - metoprolol 5 mg injection (LOPRESSOR) 5 mg INTRAVENOUS q 6 H PRN - polyethylene glycol 3350 17 g packet (MIRALAX, GLYCOLAX) 17 g ORAL DAILY - melatonin 9 mg tab(s) 9 mg ORAL DAILY (8 PM) - cloNIDine HCl 0.2 mg tab(s) (CATAPRES) 0.2 mg ORAL/FEEDING TUBE q 8 H - levETIRAcetam iv piggyback 1,000 mg in NaCl (iso-osmotic) 100 mL (KEPPRA) 1,000 mg INTRAVENOUS BID - Chlorhexidine Gluconate 0.12 % 15 mL (PERIDEX) 15 mL ORAL q 6 H - NaCl 0.9% 10 mL 10 mL INTRAVENOUS q 12 H - NaCl 0.9% 20 mL 20 mL INTRAVENOUS PRN - piperacillin-tazobactam 4.5 g in D5W 100 mL MB+ (ZOSYN) 4.5 g INTRAVENOUS q 6 H - LORazepam 2 mg injection (ATIVAN) 2 mg INTRAVENOUS q 4 H - QUEtiapine 50 mg tablet (SEROquel) 50 mg ORAL/FEEDING TUBE QID - oxyCODONE IR 5 mg tab(s) (ROXICODONE) 5 mg ORAL q 4 H - acetaminophen 975 mg tab(s) (TYLENOL) 975 mg ORAL QID - propofol infusion (DIPRIVAN) 0-40 mcg/kg/min ([place]) INTRAVENOUS CONTINUOUS - metoprolol tartrate (short acting) 25 mg tab(s) (LOPRESSOR) 25 mg ORAL QID - haloperidol lactate 5 mg injection (HALDOL) 5 mg INTRAMUSCULAR q 6 H PRN - pill real estate investment analyst (patient-specific) 1 Each Miscell. (Med.Supl.;Non-Drugs) PRN - metoclopramide HCl 10 mg injection (REGLAN) 10 mg INTRAVENOUS q 8 H Objective VITAL SIGNS BP 141/83 Pulse 80 Temp (Src) 97.7 (Temporal Artery) Resp 21 Ht 5' 7.992 (1.73m) Wt 177 lb 0.5 oz (80.3kg) SpO2 94% BMI 26.92 kg/(m2). O2 Therapy: Ventilator, %FIO2: 40 Temp (24hrs), Av.3 ?C (99.2 ?F), Min:36 ?C (96.8 ?F), Max:37.8 ?C (100 ?F) Date 06/10/19699 - 06/11/1965806/11/19 07 - 06/12/19 0659 Shift 1290-0578 5782-9805 3858-9954 24 Hour Total 2985-9274 9045-2647 2460-1552 24 Hour Total INTAKE IV 335.7 89 247 671.7 NS 0.9% 71 54 30 155 Zosyn IV 100 100 Propofol IV 164.7 35 117 316.7 Levetiracetam IV 100 100 Irrigants 100 130 30 260 Irrigant/Flush Amount In (GI Feed 06/02/19 1446 Gastric Right Naris 12 Fr) 100 130 30 260 Gastric Tube 379 960 261 4228 Tube Feed Intake (I/O) (GI Feed 06/02/19 1446 Gastric Right Naris 12 Fr) 379 270 751 3491 Shift Total 814.7 512 946 7730.7 OUTPUT Urine 1300 985 847 1800 Output ( External Collection Device 06/04/191999) 1300 282 177 8929 Shift Total 1300 724 398 2771 Weight (kg) 80.3 80.3 80.3 80.3 80.3 80.3 80.3 80.3 PHYSICAL EXAM: GENERAL: sedated SKIN: Skin color, texture, turgor normal. No rashes or lesions. LUNGS: ventilated CARDIAC: Regular rate and rhythm as above, ABDOMEN: soft, non-distended EXTREMITIES: restrained, no gross deformity NEURO: sedated DATA: Diagnostic tests reviewed for today's visit: Recent Labs 06/10/19 0427 06/09/19 0315 PH 7.512* 7.506* PCO2 32.0* 34.8* PO2 71.0* 68.2* BE 3.3* 4.6* Recent Labs 06/11/19 0350 06/10/19 04206/09/19 0331 CREAT 0.44* 0.35* 0.36* BUN 12 8 5* NA 136 135* 132* K 3.9 3.3* 3.5 CHLOR 101 101 98 CO2 29 25 27 ANION 10 12 11 GLUC 136* 146* 160* CA 8.8 9.1 8.3* P 3.0 2.5 2.4* MG 2.1 2.1 1.7 WBC 18.65* 19.92* 15.72* HB 12.7* 13.7 12.6* HCT 39.2* 41.4 37.1* PLT 778* 706* 537* Assessment/Plan ACTIVE PROBLEM LIST Hypertension Depression With Anxiety Tobacco Use Disorder Personal history of alcoholism (HCC) Depression Tremor Gerd (Gastroesophageal Reflux Disease) Bipolar Affective Disorder (Hcc) Epilepsy (Hcc) Pain of Upper Abdomen Subdural Hematoma (Hcc) Dts (Delirium Tremens) ([facility]) Sah (Subarachnoid Hemorrhage) ([facility]) Closed Fracture of One Rib of Left Side Closed Fracture of Vault of Skull (Hcc) Aphasia Malnutrition of Mild Degree (Hcc) Acute Respiratory Failure With Hypercapnia ([facility]) This is a 49 year old male with?below injuries and delirium tremens,?using less ativan, continuing leukocytosis and fever ? 1. Left posterolateral fifth rib fracture with adjacent lung contusions 2. Additional lung contusions vs infectious/inflammatory changes 3. There is an acute left occipital parietal temporal subdural hematoma estimated to measure approximately 5 mm maximal thickness. ?Small associated foci of internal gas. ?There is mild extension of subdural hemorrhage along the left tentorial leaflet.?Rightward midline shift of 2mm. 4. Nondisplaced obliquely oriented overlying calvarial fracture 5. Subarachnoid hemorrhage ? Neuro: - Pain Control:?tylenol, oxycodone, morphine prn, lidoderm patch - Sedation:propofol,?sche duled seroquel, ativan. - goal to continue to wean propofol. - melatonin - Seizure ppx:?keppra - neuro checks - NSX?signed off, no neurosurgical intervention? - CT brain 06/09:stable CV: - tele - EKG if arrythmia -?scheduled clonidine and metoprolol Resp: - ventilated. Wean as able. - ABG pending this AM. - Mucomyst, chest physiotherapy - may require trach if unable to wean ventilator. Recent Labs 06/10/1942606/09/19314 PH 7.512* 7.506* PCO2 32.0* 34.8* PO2 71.0* 68.2* BE 3.3* 4.6* Respiratory/Nursing Documentation: O2 Therapy: Ventilator (06/11/19 0600) Invasive Ventilator Mode: Pressure Regulated Volume Control (06/11/19323) Set Ventilator Respiratory Rate (BPM): 10 (06/11/19323) Total Respiratory Rate (BPM): 21 (06/11/19323) Tidal Volume Set (mL): 480 (06/11/19323) Exhaled Tidal Volume (mL): 472 (06/11/19323) Minute Volume (L): 11.2 (06/11/19323) Peak Inspiratory Pressure (cm H2O): 13 (06/11/19323) PEEP/CPAP (cm H2O): 5 (06/11/19323) GI: - DIET TUBE FEED - CONTIN (NO TRAY) - Bowel Regimen: senna-S - had BM Renal: - adequate UOP. - serum and urine osmol check, not consistent with diabetes insipidus. - replete lytes prn Potassium Date Value Ref Range Status 06/11/2019 3.9 3.5 - 5.1 mEq/L Final 06/10/2019 3.3 (L) 3.5 - 5.1 mEq/L Final 06/09/2019 3.5 3.5 - 5.1 mEq/L Final Phosphorus Date Value Ref Range Status 06/11/2019 3.0 2.5 - 4.9 mg/dL Final Magnesium Date Value Ref Range Status 06/11/2019 2.1 1.6 - 2.6 mg/dL Final Intake/Output Summary (Last 24 hours) at 06/10/2019 0659 Last data filed at 06/10/2019 0600 Gross per 24 hour Intake 3626 ml Output 4600 ml Net -974 ml Heme: - lovenox Hemoglobin (g/dL) Date Value 10/26/2017 15.2 02/14/2017 16.0 12/12/2013 16.5 HGB (g/dL) Date Value 06/11/2019 12.7 06/10/2019 13.7 06/09/2019 12.6 Endo: Glucose (mg/dL) Date Value 06/11/2019 136 ID: Temp (24hrs), Av.3 ?C (99.2 ?F), Min:36 ?C (96.8 ?F), Max:37.8 ?C (100 ?F) WBC Date Value Ref Range Status 06/11/2019 18.65 (H) 4.23 - 9.07 thou/cmm Final -Cultures: ?- MRSA (-) ?- BCx NGTD ?- RCx Pseudomonas, MSSA, probable Klebsiella. - Zosyn - Procal 0.12 yesterday. - afebrile for past 24 hours. WBC slightly improved. Ext: - DVT ppx: scds - Restraints: yes ? Ppx: - DVT: scds, lovenox - GI: not indicated - Seizure: keppra Lines: Arterial Line 06/07/19 0930 Arterial Line Left (Active) Central Line Double Lumen 06/09/19 1448 Peripherally Inserted (PICC) Left Arm 5.0 Welsh (Active) Peripheral 06/07/19 0812 Short Left Hand 20 Gauge (Active) Peripheral 06/07/19 1225 Short Right Hand 20 Gauge (Active) Peripheral 06/09/19 0700 Assessment Short Right Forearm 20 Gauge (Active) GI Feed 06/02/19 1446 Gastric Right Naris 12 Fr (Active) External Collection Device 06/04/191999 (Active) Airway 06/07/19 0900 (Active) Consults: - SICU, trauma, NSX ? Dispo: SICU ? Patient Checklist Deep vein thrombosis prophylaxis administered? Yes. Stress ulcer prophylaxis? No, not indicated.. Pain addressed? Yes. Nutrition: Enteral- Yes. TPN- No. PO- No. Restraints? Yes. Dispo needs assessed? No. Fanta De La Garza MD General Surgery, PGY-4 Pager - below 06/11/19 SICU Service Pager: For questions or concerns Mon-Fri 6a-5p please page [phone]. After 5pm and on Weekends and Holidays, please page [phone]. Critical Care Attestation Followed commands today during sedation hold which is a significant improvement Diaphoresis and fevers today Decreasing propofol requirement No seizures Thick endotracheal secretions Lungs clear to auscultation bilaterally, tachycardic, abdomen soft nondistended Chest x-ray reviewed Labs noted Plan- Decrease Ativan dosing Discontinue scheduled narcotic dosing Discontinue Keppra Discontinue lidocaine patch Ice pack and Tylenol for fevers, repeat cultures pending. Ongoing antibiotic treatment for pneumonia. Ongoing guardianship process for procedural consent Goal of SBT +/- extubation trial if neurologic status permits by this weekend The critical care treatment was mainly directed to address the following issues: ACTIVE PROBLEM LIST Hypertension Depression With Anxiety Tobacco Use Disorder Personal history of alcoholism (HCC) Depression Tremor Gerd (Gastroesophageal Reflux Disease) Bipolar Affective Disorder (Hcc) Epilepsy (Hcc) Pain of Upper Abdomen Subdural Hematoma (Hcc) Dts (Delirium Tremens) ([facility]) Sah (Subarachnoid Hemorrhage) ([facility]) Closed Fracture of One Rib of Left Side Closed Fracture of Vault of Skull (Hcc) Aphasia Malnutrition of Mild Degree (Hcc) Acute Respiratory Failure With Hypercapnia ([facility]) I provided 33 minutes of critical care services which were necessary due to above specified injuries and illnesses. This patient has a high probability of sudden, clinical significant deterioration, which required the highest level of care and preparedness to intervene urgently. I managed and supervised life or organ supporting interventions that require frequent assessments. This time does not include time devoted to teaching and to any procedure I billed separately. I have personally seen and examined this patient and participated in the rojas components of this encounter with the multi-disciplinary ICU team. I discussed the management of this case with the resident and reviewed/confirmed their documentation, attached or in separate note. I personally reviewed today's actual images, the associated image reports, and current labs. I supervised the ordering of additional testing, imaging, labs, and/or consultations. The patient and/or family were fully informed of the findings and plan of care. They had the opportunity to ask questions and raise any issues of concern, all of which were answered and dealt with by me to their stated satisfaction. Management included sedation, pain control and ventilation assessment including need for ventilator, weaning and/or extubation as indicated. Management of critical care illnesses are edited above by me, including system by system plan and are not only limited to infectious disease and tailoring the antibiotic therapy, nutrition assessment and supplementation, electrolyte correction and prevention of ICU related complications using ventilator bundle, sedation holiday and assessment and removal of lines and tubes where indicated. DAILY ICU CHECKLIST: The following items were reviewed and are addressed in the plan of care above: *Need for Restraints. *Need for Zhang Catheter. *Need for Central Access Devices. *Daily Sedation Holiday. *VTE Prophylaxis. SIGNATURE: Lilliana Beltran MD PATIENT NAME: Rhoda Poon DATE: June 11, 2019 TIME: 6:03 PM Normal [facility] Phosphorus Bloodon 9 Phosphate [Mass/Vol] 3.0 mg/dL Normal 2.5-4.9 [facility] Comment on above: Performed By: #### P HOS ####[place] [address] Basic Panelon 06-10-2019 Creatinine [Mass/Vol] 0.35 mg/dL Low 0.67-1.17 [facility] Comment on above: Performed By: #### E RTRP #### [facility] [address] [place] [address] Urea nitrogen [Mass/Vol] 8 mg/dL Normal 7-18 [facility] Comment on above: Performed By: #### E RTRP #### [facility] [address] [place] [address] Anion gap [Moles/Vol] 12 mmol/L Normal 8-16 [facility] Comment on above: Performed By: #### E RTRP #### [facility] [address] [place], [place] [address] Calcium [Mass/Vol] 9.1 mg/dL Normal 8.5-10.1 [facility] Comment on above: Performed By: #### E RTRP #### [facility] [address] [place], [place] [address] CO2 [Moles/Vol] 25 mmol/L Normal 21-32 [facility] Comment on above: Performed By: #### E RTRP #### [facility] [address] [place], [place] [address] Glucose [Mass/Vol] 146 mg/dL High 70-99 [facility] Comment on above: Performed By: #### E RTRP #### [facility] [address] [place], [place] [address] Chloride [Moles/Vol] 101 mmol/L Normal 98-107 [facility] Comment on above: Performed By: #### E RTRP #### [facility] [address] [place], [place] [address] Potassium [Moles/Vol] 3.3 mmol/L Low 3.5-5.1 [facility] Comment on above: Performed By: #### E RTRP #### [facility] [address] [place], [place] [address] Sodium [Moles/Vol] 135 mmol/L Low 136-145 [facility] Comment on above: Performed By: #### E RTRP #### [facility] [address] [place], [place] [address] Bld Gas Art and Ion Caon Base Excess 3.3 mmol/L High -3.0-3.0 [facility] Comment on above: Performed By: #### A MY #### [facility] [address] [place], [place] [address] HCO3 (Bld) [Moles/Vol] 25.4 mmol/L Normal 21.0-28.0 [facility] Comment on above: Performed By: #### A MY #### [address] [address] Ionized Ca,PH7.4 5.14 mg/dL Normal 4.61-5.17 [facility] Comment on above: Performed By: #### A MY #### [facility] [address] [place] [address] O2% Sat Arterial 95.1 % Low 96.0-100.0 [facility] Comment on above: Performed By: #### A MY #### [facility] [address] [place] [address] PCO2 Arterial 32.0 mm Hg Low 35.0-45.0 [facility] Comment on above: Performed By: #### A MY #### [facility] [address] [place] [address] pH Arterial 7.512 High 7.350-7.450 [facility] Comment on above: Performed By: #### A MY #### [facility] [address] [place] [address] PO2 Arterial 71.0 mm Hg Low 83.0-108.0 [facility] Comment on above: Performed By: #### A MY #### [facility] [address] [place] [address] FIO2 40 % Normal [facility] Comment on above: Performed By: #### A MY #### [facility] [address] [place] [address] Ionized Calcium 4.85 mg/dL Normal 4.61-5.17 [facility] Comment on above: Performed By: #### A MY #### [facility] [address] [place] [address] Cult Bloodon 06-10-2019 Cult Blood Test performed at [facility] No growth Normal [facility] Comment on above: Performed By: #### C _BLO ####[facility] [place] [address] Cult Blood Test performed at [facility] No growth Normal [facility] Comment on above: Performed By: #### C _BLO ####[facility] [place] [address] Hemogram/Diffon 06-10-2019 Abs Immature Grans 0.80 thou/cmm High 0.00-0.05 [facility] Comment on above: Performed By: #### G FR #### [facility] [address] [place] [address] Abs Neut (ANC) 15.14 thou/cmm High 1.78-5.38 [facility] Comment on above: Performed By: #### G FR #### [facility] [address] [place] [address] Abs. Baso 0.18 thou/cmm High 0.01-0.08 [facility] Comment on above: Performed By: #### G FR #### [facility] [address] [place] [address] Abs. [place] 2.01 thou/cmm High 0.30-0.82 [facility] Comment on above: Performed By: #### G FR #### [place] [address] Basophils/100 WBC (Bld) 0.9 % Normal [facility] Comment on above: Performed By: #### G FR #### [facility] [address] [place] [address] Eosinophils (Bld) [#/Vol] 0.28 thou/cmm Normal 0.04-0.54 [facility] Comment on above: Performed By: #### G FR #### [place] [address] Eosinophils/100 WBC (Bld) 1.4 % Normal [facility] Comment on above: Performed By: #### G FR #### [facility] [address] [place] [address] Immature Grans 4.00 % Normal [facility] Comment on above: Performed By: #### G FR #### [facility] [address] [place] [address] Lymphocytes (Bld) [#/Vol] 1.51 thou/cmm Normal 0.84-2.85 [facility] Comment on above: Performed By: #### G FR #### [place] [address] Lymphocytes/100 WBC (Bld) 7.6 % Normal [facility] Comment on above: Performed By: #### G FR #### [facility] [address] [place] [address] Monocytes/100 WBC (Bld) 10.1 % Normal [facility] Comment on above: Performed By: #### G FR #### [facility] [address] [place] [address] Seg Neutrophil 76.0 % Normal [facility] Comment on above: Performed By: #### G FR #### [facility] [address] [place] [address] Erythrocyte distribution width (RBC) [Ratio] 14.4 % Normal 11.6-14.4 [facility] Comment on above: Performed By: #### G FR #### [facility] [address] [place] [address] Hematocrit (Bld) [Volume fraction] 41.4 % Normal 40.1-51.0 [facility] Comment on above: Performed By: #### G FR #### [facility] [address] [place] [address] Hemoglobin (Bld) [Mass/Vol] 13.7 g/dL Normal 13.7-17.5 [facility] Comment on above: Performed By: #### G FR #### [facility] [address] [place] [address] MCH (RBC) [Entitic mass] 32.0 pg Normal 25.7-32.2 [facility] Comment on above: Performed By: #### G FR #### [facility] [address] [place] [address] MCHC (RBC) [Mass/Vol] 33.1 % Normal 32.3-36.5 [facility] Comment on above: Performed By: #### G FR #### [facility] [address] [place] [address] MCV (RBC) [Entitic vol] 96.7 fL High 83.2-95.6 [facility] Comment on above: Performed By: #### G FR #### [facility] [address] [place] [address] Platelet mean volume (Bld) [Entitic vol] 9.0 fL Normal 8.7-12.0 [facility] Comment on above: Performed By: #### G FR #### [facility] [address] [place] [id number] Platelets (Bld) [#/Vol] 706 thou/cmm High 141-365 [facility] Comment on above: Performed By: #### G FR #### [facility] [address] [place] [address] RBC (Bld) [#/Vol] 4.28 mil/cmm Low 4.63-6.08 [facility] Comment on above: Performed By: #### G FR #### [place] [address] RDW SD 51.6 fl High 36.1-45.8 [facility] Comment on above: Performed By: #### G FR #### [facility] [address] [place] [address] WBC (Bld) [#/Vol] 19.92 thou/cmm High 4.23-9.07 [facility] Comment on above: Performed By: #### G FR #### [place] [address] Magnesium Bloodon 06-10-2019 Magnesium [Mass/Vol] 2.1 mg/dL Normal 1.6-2.6 [facility] Comment on above: Performed By: #### E RTRP #### [place] [address] NURSING PROGon 06-10-2019 NURSING PROG HNO ID: [id number] Author: Eulalia (Rn) GILBERTO Tomlinson Service: Nursing Author Type: Registered Nurse Type: Nursing Progress Note Filed: 06/10/2019 10:58 PM Note Text: Nursing Progress: Topic: RESTRAINT NON-VIOLENT PATIENT NAME: Rhoda Poon PATIENT LOCATION: [place] [address]/[place] [id number]* The patient demonstrates Attempting to Remove Medical Devices Vital to Medical Stability as evidenced by the following behaviors pull ETT, PICC which pose an imminent danger to self or others. The following interventions were attempted but were not effective in protecting the patient's safety: Alarms, Call Light Within Reach, Contraindicated - Imminent Safety Risk, Diversion Activities, IV/Feeding Bag/Pump Out of Vision, Medications Reviewed, Modify Equipment, Frequent Observation, Modify Environment, Move Patient Closer to Nurses Station Next, a comprehensive assessment was performed and warranted placing the patient in Soft Bilateral Wrists, the least restrictive restraint needed to protect the patient's safety. Ongoing safety assessments and evaluation for earliest removal of restraints will be performed. DATE: June 10, 2019 TIME: 10:58 PM Eulalia Tomlinson RN [facility] NURSING PROG HNO ID: [id number] Author: Gerson Gomez) GILBERTO Jeffrey Service: Nursing Author Type: Registered Nurse Type: Nursing Progress Note Filed: 06/10/2019 9:15 AM Note Text: Nursing Progress: Topic: RESTRAINT NON-VIOLENT PATIENT NAME: Rhoda Poon PATIENT LOCATION: [place] [address]/[place] [address]* The patient demonstrates Attempting to Remove Medical Devices Vital to Medical Stability, Inability to Retain Information Regarding Safety Directions as evidenced by the following behaviors pt pulling at everything, non-orientable, pulling at life support tubes, lines equipment which pose an imminent danger to self or others. The following interventions were attempted but were not effective in protecting the patient's safety: Alarms, Bed in Low/Locked Position, Call Light Within Reach Next, a comprehensive assessment was performed and warranted placing the patient in Soft Bilateral Wrists, the least restrictive restraint needed to protect the patient's safety. Ongoing safety assessments and evaluation for earliest removal of restraints will be performed. DATE: June 10, 2019 TIME: 9:14 AM Gerson Jeffrey RN [facility] NUTRITIONon 06-10-2019 NUTRITION HNO ID: [id number] Author: Rafaela Higginbotham RD Service: Nutrition Therapy Author Type: Registered Dietitian Type: Nutrition Filed: 06/10/2019 11:53 AM Note Text: NUTRITION THERAPY PROGRESS NOTE SERVICE DATE: 06/10/2019 SERVICE TIME: 11:29 AM RECOMMENDED DIAGNOSIS: MILD PROTEIN-CALORIE MALNUTRITION per RD on 06/05/19 NUTRITION CARE PLAN Suboptimal oral intake with need for enteral feeding aeb AMS, respiratory failure and mechanical ventilation. Intervention: TF was on hold 06/07 and 06/08 due to bowel obstruction. Resumed on 06/08 at ~ 1330. 1. Current TF of Impact Peptide at 50 ml/hr providing 1800 kcals, 113 g protein, 925 ml free water. Minimal flush of 30 ml 4 times per day. Propofol also providing significant calories. RN is about to change rate to 40 ml/hr. This provides ~ 1056 kcals over 24 hrs. Propofol was started on 06/07/19. ? Reduce TF rate to 40 ml/hr. This will still provide 90 g protein which is ~ 1.3 g/kg IBW. Suggest checking an ammonia level. Had a very large BM on 06/09/19 per RN. Collaborated with GILBERTO Nieto. Monitor and Evaluation: Goal: Meet >75% of estimated needs Monitor fluid/electrolyte balance Monitor labs, I/Os, vital signs, weight Monitor tolerance to tube feeding Interval History: He has been receiving Vancomycin for PNA. Per Dr Wilkes on 06/06: This is a 49 year old male with?below injuries and delirium tremens, using less ativan, continuing leukocytosis and fever ? 1. Left posterolateral fifth rib fracture with adjacent lung contusions 2. Additional lung contusions vs infectious/inflammatory changes 3. There is an acute left occipital parietal temporal subdural hematoma estimated to measure approximately 5 mm maximal thickness. ?Small associated foci of internal gas. ?There is mild extension of subdural hemorrhage along the left tentorial leaflet.?Rightward midline shift of 2mm. 4. Nondisplaced obliquely oriented overlying calvarial fracture 5. Subarachnoid hemorrhage Pt was having blood tinged secretions overnight from 06/06 to 06/07. He was tachycardic and hypertensive. He was intubated on 06/07 at ~ 11:15 AM for airway protection and CO2 retention. An OGT was placed for high residuals. Reglan was added and TF was stopped overnight. On 06/09, he opens eyes and tracks but does not follow commands. Respiratory cultures with pseudomonas and MSSA. On Zosyn. Pt has 2 brothers and an ex significant other, Sahil. Ethics committee was consulted for procedure when a pt does not have an official guardian. Pt received PICC yesterday (06/09/19). Nutritional Intake: 80 % estimated energy needs over the past 5 day(s) Orders Placed This Encounter DIET TUBE FEED - CONTIN (NO TRAY) Standing Status: Standing Number of Occurrences: 1 Order Specific Question: TF Product (26 years and up) Answer: IMPACT PEPTIDE 1.5 (RD APPROVAL) Order Specific Question: TF Total mL per 24 hours Answer: 1200 Order Specific Question: TF Goal Rate (mL/hr) Answer: 50 Order Specific Question: TF Route Answer: NASOGASTRIC Order Specific Question: TF Initial Rate (mL/hr) Answer: 20 Order Specific Question: TF Advance by (mL/hr) Answer: 10 Order Specific Question: TF Advance every (hrs) Answer: 4 Order Specific Question: TF Water Flush Amount (mL) Answer: 30 Order Specific Question: TF Water Flush Frequency (times/day) Answer: 4 Lines and Drains: Central Line Double Lumen 06/09/19 1448 Peripherally Inserted (PICC) Left Arm 5.0 Welsh (Active) Peripheral 06/07/19 0812 Short Left Hand 20 Gauge (Active) Peripheral 06/07/19 1225 Short Right Hand 20 Gauge (Active) Peripheral 06/09/19 0700 Assessment Short Right Forearm 20 Gauge (Active) GI Feed 06/02/19 1446 Gastric Right Naris 12 Fr (Active) External Collection Device 06/04/19 2000 (Active) Height: 172.7 cm (5' 7.99) Admission Weight: 81.6 kg (180 lb) Current Weight: 80.3 kg (177 lb 0.5 oz) Wt today: 76.7 kg per bedscale wt with items removed from the bed. Body mass index is 26.92 kg/m?. normal Recent Labs 06/10/19 0423 GLUC 146* BUN 8 CREAT 0.35* NA 135* K 3.3* CHLOR 101 CO2 25 P 2.5 HB 13.7 HCT 41.4 WBC 19.92* MG 2.1 Current Facility-Administered Medications Medication Dose Route Frequency - potassium phosphate 45 mmol in NaCl 0.9% 250 mL 45 mmol INTRAVENOUS ONCE - piperacillin-tazobactam 4.5 g in D5W 100 mL MB+ (ZOSYN) 4.5 g INTRAVENOUS q 6 H - QUEtiapine 100 mg tab(s) (SEROquel) 100 mg ORAL/FEEDING TUBE BID - NaCl 0.9% 10 mL 10 mL INTRAVENOUS q 12 H - NaCl 0.9% 20 mL 20 mL INTRAVENOUS PRN - levETIRAcetam iv piggyback 1,000 mg in NaCl (iso-osmotic) 100 mL (KEPPRA) 1,000 mg INTRAVENOUS BID - propofol infusion (DIPRIVAN) 5-60 mcg/kg/min INTRAVENOUS CONTINUOUS - metoclopramide HCl 10 mg injection (REGLAN) 10 mg INTRAVENOUS q 6 H - Chlorhexidine Gluconate 0.12 % 15 mL (PERIDEX) 15 mL ORAL q 6 H - polyethylene glycol 3350 17 g packet (MIRALAX, GLYCOLAX) 17 g ORAL DAILY - melatonin 9 mg tab(s) 9 mg ORAL DAILY (8 PM) - cloNIDine HCl 0.2 mg tab(s) (CATAPRES) 0.2 mg ORAL/FEEDING TUBE q 8 H - acetaminophen 975 mg tab(s) (TYLENOL) 975 mg ORAL q 6 H PRN - senna-docusate 8.6-50 mg 1 tablet (SENNA-S) 1 tablet ORAL BID - metoprolol tartrate (short acting) 25 mg tab(s) (LOPRESSOR) 25 mg ORAL q 12 H - metoprolol 5 mg injection (LOPRESSOR) 5 mg INTRAVENOUS q 6 H PRN - oxyCODONE 5-10 mg oral liquid (ROXICODONE) 5-10 mg ORAL q 4 H PRN - morphine 2 mg injection 2 mg INTRAVENOUS q 2 H PRN - enoxaparin 30 mg injection (LOVENOX) 30 mg SUBCUTANEOUS BID - ipratropium-albuterol 3 mL nebulizer solution (DUONEB) 3 mL INHALATION q 6 H PRN - potassium chloride ER 20-40 mEq tab(s) (K-DUR, KLOR-CON) 20-40 mEq ORAL/FEEDING TUBE PRN Or - potassium chloride iv piggyback 20 mEq/100 mL 20 mEq INTRAVENOUS PRN - magnesium sulfate in water 2 g in sterile water 50 ml 2 g INTRAVENOUS PRN - sodium phosphate 45 mmol in NaCl 0.9% 250 mL 45 mmol INTRAVENOUS PRN - calcium gluconate 4 g in NaCl 0.9% 250 mL 4 g INTRAVENOUS PRN - NaCl 0.9% 3-5 mL 3-5 mL INTRAVENOUS q 12 H - lidocaine 5 % 1 Patch (LIDODERM) 1 Patch TRANSDERMAL DAILY AT 9 PM And - lidocaine patch - REMOVE OTHER DAILY And - lidocaine - VERIFY PATCH OTHER q 8 H - thiamine 100 mg tab(s) (VITAMIN B1) 100 mg ORAL TID Date 06/09/19699 - 06/10/19 0659 06/10/19699 - 06/11/19 0659 Shift 4924-8362 9066-8506 2680-3586 24 Hour Total 7517-5932 7237-2768 4809-6480 24 Hour Total INTAKE IV 555 859.5 523.5 1938 129.7 129.7 IVPB 250 537 101.4 888.4 NS 0.9% 37 37 Zosyn IV 100 100 200 400 Propofol IV 105 222.5 222.1 549.6 92.7 92.7 Levetiracetam IV 100 100 Irrigants 230 230 330 790 100 100 Irrigant/Flush Amount In (GI Feed 06/02/19 1446 Gastric Right Naris 12 Fr) 230 230 330 790 100 100 Gastric Tube 253 274 371 898 174 174 Tube Feed Intake (I/O) (GI Feed 06/02/19 1446 Gastric Right Naris 12 Fr) 253 274 371 898 174 174 Shift Total 1038 1363.5 1224.5 3626 403.7 403.7 OUTPUT Urine 1550 1070 1980 4600 450 450 Output ( External Collection Device 06/04/191999) 1550 1070 1980 4600 450 450 # of BMs Stool Incontinence 1 x 1 x 2 x Number of BMs 1 x 1 x 2 x Shift Total 1550 1070 1980 4600 450 450 Weight (kg) 82.7 82.7 80.3 80.3 80.3 80.3 80.3 80.3 MNT Billing Type: Re-assess/15 min 3 units SIGNATURE: Rafaela Higginbotham RD PATIENT NAME: Rhoda Poon DATE: June 10, 2019 TIME: 10:28 AM PAGER: [phone] Normal [facility] Osmolality Serumon 9 Osmolality [Osmolality] 283 mOsm/kg Normal 276-298 [facility] Comment on above: Performed By: #### E RTRP #### [facility] [address] [place], [place] [address] Osmolality,Ur.on 06-10-2019 Osmolality (U) [Osmolality] 355 mOsm/kg Normal 250-1200 [facility] Comment on above: Performed By: #### E RTRP #### [facility] [address] [place] [address] PROGRESSon 06-10-2019 PROGRESS HNO ID: [id number] Author: Ashley Denney) DESTINI Silver Service: Neurosurgery Author Type: Physician Electrolysis Needle Operator Type: Progress Notes Filed: 06/10/2019 2:43 PM Note Text: Notified by trauma that repeat CTH completed yesterday as pt with left hemotympanum. Per RN pt intubated on Sunday/ aspiration pneumonia/airway protection. Pt continues to be very restless about the bed and does not follow commands. RN also states pt has continued to have the bleeding in the ear since admission. On exam pt will open eyes with noxious stim and follow examiner. Does not follow commands. DHALIWAL well. PERRL/eomi. Evidence of fresh and dried blood in left canal. No CSF noted. CTH from 06/09 reviewed and relatively unchanged from prior CTH 06/06. 06/06: Images obtained for bone detail redemonstrate the presence of a longitudinal fracture involving the left petrous pyramid. ?There is subtotal opacification of the middle ear cavity, mastoid antrum, mastoid air cells, and external auditory canal on the left. 06/09:Interval increased mucosal thickening of the paranasal sinuses. ?Unchanged left temporal longitudinal fracture with mastoid opacification. Pt continues to be nonsurgical. Continue current mgt DESTINI Lobo Normal [facility] PROGRESS HNO ID: [id number] Author: Raudel Martínez MD Service: Trauma Author Type: Resident Type: Progress Notes Filed: 06/10/2019 10:31 AM Note Text: Attestation signed by Angeli Villatoro at 06/10/2019 12:35 PM Attending Note I personally saw and examined the patient. I reviewed the resident's note. I agree with the resident's assessment and plan unless otherwise noted. Very agitated Adjusting sedative and pain meds. Signature: Angeli Villatoro MD Date: 06/10/2019 Time: 12:35 PM Trauma Progress Note SERVICE DATE: 06/10/2019 Trauma Service Pager: For questions or concerns Mon-Fri 6a-5p please page [phone]. After 5pm and on Weekends and Holidays, please page [phone] if in ICU or [phone] if on RNF. SUBJECTIVE: NAEON. Pt remains restless overnight. Propofol at 50 this AM. Had BM. Does not respond to commands or open eyes. OBJECTIVE: Vitals: Temp (24hrs), Av.5 ?C (99.5 ?F), Min:35.7 ?C (96.3 ?F), Max:38.2 ?C (100.8 ?F) BP 158/88 Pulse 114 Temp 37.1 ?C (98.8 ?F) Resp 20 Ht 172.7 cm (5' 7.99) Wt 80.3 kg (177 lb 0.5 oz) SpO2 92% BMI 26.92 kg/m? O2 Therapy: Ventilator IANDO: Date 06/09/19699 - 06/10/19 0659 06/10/19 07 - 06/11/19 0659 Shift 2643-8553 7970-4781 4253-0659 24 Hour Total 0204-9484 1430-0578 1470-0833 24 Hour Total INTAKE IV 555 859.5 523.5 1938 129.7 129.7 IVPB 250 537 101.4 888.4 NS 0.9% 37 37 Zosyn IV 100 100 200 400 Propofol IV 105 222.5 222.1 549.6 92.7 92.7 Levetiracetam IV 100 100 Irrigants 230 230 330 790 100 100 Irrigant/Flush Amount In (GI Feed 06/02/19 1446 Gastric Right Naris 12 Fr) 230 230 330 790 100 100 Gastric Tube 253 274 371 898 174 174 Tube Feed Intake (I/O) (GI Feed 06/02/19 1446 Gastric Right Naris 12 Fr) 253 274 371 898 174 174 Shift Total 1038 1363.5 1224.5 3626 403.7 403.7 OUTPUT Urine 1550 1070 1980 4600 450 450 Output ( External Collection Device 06/04/191999) 1550 1070 1980 4600 450 450 # of BMs Stool Incontinence 1 x 1 x 2 x Number of BMs 1 x 1 x 2 x Shift Total 1550 1070 1979 4600 450 450 Weight (kg) 82.7 82.7 80.3 80.3 80.3 80.3 80.3 80.3 MEDICATIONS Current Facility-Administered Medications Medication Dose Route Frequency - potassium phosphate 45 mmol in NaCl 0.9% 250 mL 45 mmol INTRAVENOUS ONCE - LORazepam 2 mg injection (ATIVAN) 2 mg INTRAVENOUS q 4 H - oxyCODONE 5 mg oral liquid (ROXICODONE) 5 mg ORAL q 4 H - acetaminophen 975 mg tab(s) (TYLENOL) 975 mg ORAL QID - piperacillin-tazobactam 4.5 g in D5W 100 mL MB+ (ZOSYN) 4.5 g INTRAVENOUS q 6 H - NaCl 0.9% 10 mL 10 mL INTRAVENOUS q 12 H - NaCl 0.9% 20 mL 20 mL INTRAVENOUS PRN - levETIRAcetam iv piggyback 1,000 mg in NaCl (iso-osmotic) 100 mL (KEPPRA) 1,000 mg INTRAVENOUS BID - propofol infusion (DIPRIVAN) 5-60 mcg/kg/min INTRAVENOUS CONTINUOUS - metoclopramide HCl 10 mg injection (REGLAN) 10 mg INTRAVENOUS q 6 H - Chlorhexidine Gluconate 0.12 % 15 mL (PERIDEX) 15 mL ORAL q 6 H - polyethylene glycol 3350 17 g packet (MIRALAX, GLYCOLAX) 17 g ORAL DAILY - melatonin 9 mg tab(s) 9 mg ORAL DAILY (8 PM) - cloNIDine HCl 0.2 mg tab(s) (CATAPRES) 0.2 mg ORAL/FEEDING TUBE q 8 H - senna-docusate 8.6-50 mg 1 tablet (SENNA-S) 1 tablet ORAL BID - metoprolol tartrate (short acting) 25 mg tab(s) (LOPRESSOR) 25 mg ORAL q 12 H - metoprolol 5 mg injection (LOPRESSOR) 5 mg INTRAVENOUS q 6 H PRN - morphine 2 mg injection 2 mg INTRAVENOUS q 2 H PRN - enoxaparin 30 mg injection (LOVENOX) 30 mg SUBCUTANEOUS BID - ipratropium-albuterol 3 mL nebulizer solution (DUONEB) 3 mL INHALATION q 6 H PRN - potassium chloride ER 20-40 mEq tab(s) (K-DUR, KLOR-CON) 20-40 mEq ORAL/FEEDING TUBE PRN Or - potassium chloride iv piggyback 20 mEq/100 mL 20 mEq INTRAVENOUS PRN - magnesium sulfate in water 2 g in sterile water 50 ml 2 g INTRAVENOUS PRN - sodium phosphate 45 mmol in NaCl 0.9% 250 mL 45 mmol INTRAVENOUS PRN - calcium gluconate 4 g in NaCl 0.9% 250 mL 4 g INTRAVENOUS PRN - NaCl 0.9% 3-5 mL 3-5 mL INTRAVENOUS q 12 H - lidocaine 5 % 1 Patch (LIDODERM) 1 Patch TRANSDERMAL DAILY AT 9 PM And - lidocaine patch - REMOVE OTHER DAILY And - lidocaine - VERIFY PATCH OTHER q 8 H - thiamine 100 mg tab(s) (VITAMIN B1) 100 mg ORAL TID Labs: Recent Labs 06/10/19 0427 06/10/19 0423 06/09/19 0331 06/09/19 0315 NA -- 135* 132* -- K -- 3.3* 3.5 -- CHLOR -- 101 98 -- CO2 -- 25 27 -- BUN -- 8 5* -- CREAT -- 0.35* 0.36* -- GLUC -- 146* 160* -- ANION -- 12 11 -- CA -- 9.1 8.3* -- MG -- 2.1 1.7 -- P -- 2.5 2.4* -- WBC -- 19.92* 15.72* -- HB -- 13.7 12.6* -- HCT -- 41.4 37.1* -- PLT -- 706* 537* -- PH 7.512* -- -- 7.506* PCO2 32.0* -- -- 34.8* PO2 71.0* -- -- 68.2* BE 3.3* -- -- 4.6* PHYSICAL EXAM: GENERAL: sedated SKIN: Skin color, texture, turgor normal. No rashes or lesions. LUNGS: ventilated CARDIAC: Regular rate and rhythm as above, ABDOMEN: soft, non-distended EXTREMITIES: restrained, no gross deformity NEURO: sedated ASSESSMENT AND PLAN: Active Hospital Problems Diagnosis Date Noted - Acute respiratory failure with hypercapnia ([facility]) 06/07/2019 - Malnutrition of mild degree ([facility]) 06/05/2019 - DTs (delirium tremens) ([facility]) 06/02/2019 - SAH (subarachnoid hemorrhage) ([facility]) 06/02/2019 - Closed fracture of one rib of left side 06/02/2019 - Closed fracture of vault of skull ([facility]) 06/02/2019 - Aphasia 06/02/2019 - Subdural hematoma ([facility]) 06/01/2019 - Bipolar affective disorder ([facility]) 12/21/2012 Overview Note: Diagnosed in ~1989 This is a 49 year old male with?below injuries and delirium tremens,?using less ativan, continuing leukocytosis and fever ? 1. Left posterolateral fifth rib fracture with adjacent lung contusions 2. Additional lung contusions vs infectious/inflammatory changes 3. There is an acute left occipital parietal temporal subdural hematoma estimated to measure approximately 5 mm maximal thickness. ?Small associated foci of internal gas. ?There is mild extension of subdural hemorrhage along the left tentorial leaflet.?Rightward midline shift of 2mm. 4. Nondisplaced obliquely oriented overlying calvarial fracture 5. Subarachnoid hemorrhage Operations: 1. none Care Plan: 2. Management per SICU 1. Decreased propofol 2. Investigate leukocystosis 3. Current diet order: DIET TUBE FEED - CONTIN (NO TRAY) 4. NPO 5. Bowel regimen: senna s Prophylaxis: 6. DVT ppx: Trauma dosing of lovenox. Incidentals: 1. None ? Consulted Services and Recommendations: 1. SICU 2. NSX 3. PT/OT -?(p) ? Dispo Plannin. NSICU ? Follow Up Needs: 6. TBD Assessment and plan discussed with attending: Dr. Villatoro Trauma Service Pager: For questions or concerns Mon-Fri 6a-5p please page [phone]. After 5pm and on Weekends and Holidays, please page [phone] if in ICU or [phone] if on RNF. SIGNATURE: Raudel Martínez MD PATIENT NAME: Rhoda Poon DATE: June 10, 2019 TIME: 10:28 AM Normal [facility] PROGRESS HNO ID: [id number] Author: Lilliana Beltran Service: Critical Care Author Type: Physician Type: Progress Notes Filed: 06/10/2019 2:58 PM Note Text: INPATIENT SICU PROGRESS NOTE SICU Service Pager: For questions or concerns Mon-Fri 6a-5p please page [phone]. After 5pm and on Weekends and Holidays, please page [phone]. Subjective Subjective: NAEON. Pt remains restless overnight. Propofol at 50 this AM. Had BM. Does not respond to commands or open eyes. Current Facility-Administered Medications Medication Dose Route Frequency - potassium chloride ER 20-40 mEq tab(s) (K-DUR, KLOR-CON) 20-40 mEq ORAL/FEEDING TUBE PRN Or - potassium chloride iv piggyback 20 mEq/100 mL 20 mEq INTRAVENOUS PRN - magnesium sulfate in water 2 g in sterile water 50 ml 2 g INTRAVENOUS PRN - sodium phosphate 45 mmol in NaCl 0.9% 250 mL 45 mmol INTRAVENOUS PRN - calcium gluconate 4 g in NaCl 0.9% 250 mL 4 g INTRAVENOUS PRN - NaCl 0.9% 3-5 mL 3-5 mL INTRAVENOUS q 12 H - lidocaine 5 % 1 Patch (LIDODERM) 1 Patch TRANSDERMAL DAILY AT 9 PM And - lidocaine patch - REMOVE OTHER DAILY And - lidocaine - VERIFY PATCH OTHER q 8 H - thiamine 100 mg tab(s) (VITAMIN B1) 100 mg ORAL TID - ipratropium-albuterol 3 mL nebulizer solution (DUONEB) 3 mL INHALATION q 6 H PRN - oxyCODONE 5-10 mg oral liquid (ROXICODONE) 5-10 mg ORAL q 4 H PRN - morphine 2 mg injection 2 mg INTRAVENOUS q 2 H PRN - enoxaparin 30 mg injection (LOVENOX) 30 mg SUBCUTANEOUS BID - metoprolol tartrate (short acting) 25 mg tab(s) (LOPRESSOR) 25 mg ORAL q 12 H - metoprolol 5 mg injection (LOPRESSOR) 5 mg INTRAVENOUS q 6 H PRN - senna-docusate 8.6-50 mg 1 tablet (SENNA-S) 1 tablet ORAL BID - polyethylene glycol 3350 17 g packet (MIRALAX, GLYCOLAX) 17 g ORAL DAILY - melatonin 9 mg tab(s) 9 mg ORAL DAILY (8 PM) - cloNIDine HCl 0.2 mg tab(s) (CATAPRES) 0.2 mg ORAL/FEEDING TUBE q 8 H - acetaminophen 975 mg tab(s) (TYLENOL) 975 mg ORAL q 6 H PRN - levETIRAcetam iv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 subarachnoid hemorrhage within the ventricular system, left temporal and parietal lobe are unchanged. 3. Bilateral subdural fluid collections as well as minimal falx cerebri subdural hemorrhage is unchanged. Unchanged negligible [id number] midline shift. 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: HUGO Transcribe Date/Time: Jun 09 2019 4:48A Dictated by : OLLIE SAMUEL MD This examination was interpreted and the report reviewed and electronically signed by: OLLIE SAMUEL MD on Jun 09 2019 4:58AM EST Normal [facility] Hemogram/Diffon 06-09-2019 Abs Immature Grans 0.42 thou/cmm High 0.00-0.05 [facility] Comment on above: Performed By: #### G FR #### [place] [address] Abs Neut (ANC) 11.63 thou/cmm High 1.78-5.38 [facility] Comment on above: Performed By: #### G FR #### [place] [address] Abs. Baso 0.09 thou/cmm High 0.01-0.08 [facility] Comment on above: Result Comment: Smea r scanned; tech agrees with automated differential Performed By: #### G FR #### [place] [address] Abs. [place] 2.15 thou/cmm High 0.30-0.82 [facility] Comment on above: Performed By: #### G FR #### [place] [address] Basophils/100 WBC (Bld) 0.6 % Normal [facility] Comment on above: Performed By: #### G FR #### [facility] [address] [place], [place] [address] Eosinophils (Bld) [#/Vol] 0.16 thou/cmm Normal 0.04-0.54 [facility] Comment on above: Performed By: #### G FR #### [facility] [address] [place], [place] [address] Eosinophils/100 WBC (Bld) 1.0 % Normal [facility] Comment on above: Performed By: #### G FR #### [facility] [address] [place], [place] [address] Immature Grans 2.70 % Normal [facility] Comment on above: Performed By: #### G FR #### [facility] [address] [place], [place] [address] Lymphocytes (Bld) [#/Vol] 1.26 thou/cmm Normal 0.84-2.85 [facility] Comment on above: Performed By: #### G FR #### [facility] [address] [place], [place] [address] Lymphocytes/100 WBC (Bld) 8.0 % Normal [facility] Comment on above: Performed By: #### G FR #### [facility] [address] [place], [place] [address] Monocytes/100 WBC (Bld) 13.7 % Normal [facility] Comment on above: Performed By: #### G FR #### [facility] [address] [place], [place] [address] Seg Neutrophil 74.0 % Normal [facility] Comment on above: Performed By: #### G FR #### [facility] [address] [place], [place] [address] Erythrocyte distribution width (RBC) [Ratio] 14.3 % Normal 11.6-14.4 [facility] Comment on above: Performed By: #### G FR #### [facility] [address] [place], [place] [address] Hematocrit (Bld) [Volume fraction] 37.1 % Low 40.1-51.0 [facility] Comment on above: Performed By: #### G FR #### [facility] [address] [place] [address] Hemoglobin (Bld) [Mass/Vol] 12.6 g/dL Low 13.7-17.5 [facility] Comment on above: Performed By: #### G FR #### [facility] [address] [place] [address] MCH (RBC) [Entitic mass] 32.7 pg High 25.7-32.2 [facility] Comment on above: Performed By: #### G FR #### [facility] [address] [place] [address] MCHC (RBC) [Mass/Vol] 34.0 % Normal 32.3-36.5 [facility] Comment on above: Performed By: #### G FR #### [facility] [address] [place] [address] MCV (RBC) [Entitic vol] 96.4 fL High 83.2-95.6 [facility] Comment on above: Performed By: #### G FR #### [facility] [address] [place] [address] Platelet mean volume (Bld) [Entitic vol] 8.7 fL Normal 8.7-12.0 [facility] Comment on above: Performed By: #### G FR #### [facility] [address] [place] [address] Platelets (Bld) [#/Vol] 537 thou/cmm High 141-365 [facility] Comment on above: Performed By: #### G FR #### [facility] [address] [place] [address] RBC (Bld) [#/Vol] 3.85 mil/cmm Low 4.63-6.08 [facility] Comment on above: Performed By: #### G FR #### [facility] [address] [place] [address] RDW SD 51.0 fl High 36.1-45.8 [facility] Comment on above: Performed By: #### G FR #### [facility] [address] [place], [place] [address] WBC (Bld) [#/Vol] 15.72 thou/cmm High 4.23-9.07 [facility] Comment on above: Performed By: #### G FR #### [facility] [address] [place], [place] [address] Magnesium Bloodon 06-09-2019 Magnesium [Mass/Vol] 1.7 mg/dL Normal 1.6-2.6 [facility] Comment on above: Performed By: #### G FR #### [facility] [address] [place], [place] [address] NURSING PROGon 06-09-2019 NURSING PROG HNO ID: [id number] Author: Radhika LucasRn) GILBERTO Worthy Service: Nursing Author Type: Registered Nurse Type: Nursing Progress Note Filed: 06/09/2019 9:10 PM Note Text: Nursing Progress: Topic: RESTRAINT NON-VIOLENT PATIENT NAME: Rhoda Poon PATIENT LOCATION: [place] [address]/[place] [address]* The patient demonstrates Attempting to Remove Medical Devices Vital to Medical Stability, Inability to Retain Information Regarding Safety Directions as evidenced by the following behaviors pulling at lines or tubes which pose an imminent danger to self or others. The following interventions were attempted but were not effective in protecting the patient's safety: Alarms, Bed in Low/Locked Position, Call Light Within Reach Next, a comprehensive assessment was performed and warranted placing the patient in Soft Bilateral Wrists, the least restrictive restraint needed to protect the patient's safety. Ongoing safety assessments and evaluation for earliest removal of restraints will be performed. DATE: June 09, 2019 TIME: 9:10 PM Radhika Worthy RN [facility] NURSING PROG HNO ID: [id number] Author: Halina LucasRn) GILBERTO Carroll Service: Nursing Author Type: Registered Nurse Type: Nursing Progress Note Filed: 06/09/2019 7:53 AM Note Text: Nursing Progress: Topic: RESTRAINT NON-VIOLENT PATIENT NAME: Rhoda Poon PATIENT LOCATION: [place] [address]/[place] [address]* The patient demonstrates Confusion, Attempting to Remove Medical Devices Vital to Medical Stability, Lack of Understanding/Ability to Comply with Safety Directions, Impulsive Behavior as evidenced by the following behaviors intubated, attempting to pull at medical devices which pose an imminent danger to self or others. The following interventions were attempted but were not effective in protecting the patient's safety: Alarms, Bed in Low/Locked Position, Call Light Within Reach, Contraindicated - Imminent Safety Risk, Diversion Activities, Gauze Wrap/Sleeve IV Site, IV/Feeding Bag/Pump Out of Vision, Medications Reviewed, Modify Environment, Modify Equipment Next, a comprehensive assessment was performed and warranted placing the patient in Soft Bilateral Wrists, the least restrictive restraint needed to protect the patient's safety. Ongoing safety assessments and evaluation for earliest removal of restraints will be performed. DATE: June 09, 2019 TIME: 7:53 AM Halina Carroll RN Normal [facility] Bloodon 9 Phosphate [Mass/Vol] 2.4 mg/dL Low 2.5-4.9 [facility] Comment on above: Performed By: #### G FR #### [place] [address] XR CHEST 1V FRONTAL PORTon 1 XR CHEST 1V FRONTAL PORT * * *Final Report* * * DATE OF EXAM: Jun 09 2019 5:27AM [id number] - XR CHEST 1V FRONTAL PORT / PROCEDURE REASON: Evaluate tube, line or lead position * * * * Physician Interpretation * * * * EXAMINATION: CHEST RADIOGRAPH (PORTABLE SINGLE VIEW AP) Exam Date/Time: 06/09/2019 5:27 AM CLINICAL HISTORY: Evaluate tube, line or lead position MQ: XCPR_5 Comparison: 06/08/2019 RESULT: Lines, tubes, and devices: The ETT and 2 esophagogastric tubes appear relatively stable. Lungs and pleura: There is stable bilateral lower lung zone subsegmental atelectasis. Also, there is a stable small left pleural effusion. Cardiomediastinal silhouette: Stable cardiomediastinal silhouette. Other: . IMPRESSION: Stable appearance. 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: HUGO Transcribe Date/Time: Jun 09 2019 7:07A Dictated by : KRUNAL CHONG MD This examination was interpreted and the report reviewed and electronically signed by: KRUNAL CHONG MD on Jun 09 2019 7:08AM EST Normal [facility] Basic Panelon 06-08-2019 Creatinine [Mass/Vol] 0.37 mg/dL Low 0.67-1.17 [facility] Comment on above: Performed By: #### A MY #### [facility] [address] [place], [place] [address] Anion gap [Moles/Vol] 12 mmol/L Normal 8-16 [facility] Comment on above: Performed By: #### A MY #### [facility] [address] [place], [place] [address] Calcium [Mass/Vol] 8.5 mg/dL Normal 8.5-10.1 [facility] Comment on above: Performed By: #### A MY #### [facility] [address] [place], [place] [address] CO2 [Moles/Vol] 31 mmol/L Normal 21-32 [facility] Comment on above: Performed By: #### A MY #### [facility] [address] [place], [place] [address] Glucose [Mass/Vol] 161 mg/dL High 70-99 [facility] Comment on above: Performed By: #### A MY #### [facility] [address] [place], [place] [address] Urea nitrogen [Mass/Vol] 5 mg/dL Low 7-18 [facility] Comment on above: Performed By: #### A MY #### [address] [address] Chloride [Moles/Vol] 93 mmol/L Low 98-107 [facility] Comment on above: Performed By: #### A MY #### [address] [address] Potassium [Moles/Vol] 3.6 mmol/L Normal 3.5-5.1 [facility] Comment on above: Performed By: #### A MY #### [address] [address] Sodium [Moles/Vol] 132 mmol/L Low 136-145 [facility] Comment on above: Performed By: #### A MY #### [place] [address] ECG COMPLETEon 06-08-2019 ECG COMPLETE NAME : JONI POON PID : [id number] : 1970 Gender : Male Race : ORD : [id number] Procedure Date : Jun 08 2019 04:14:50 Edit Date : Jun 12 2019 06:08:08 Diagnosis:NORMAL SINUS RHYTHM T WAVE ABNORMALITY, CONSIDER ANTERIOR ISCHEMIA ABNORMAL ECG Confirmed by MD HAJI CANDACE ([id number]) on 06/12/2019 6:08:05 AM Ventricular Rate : 87 BPM Atrial Rate : 87 BPM P-R Interval : 124 ms QRS Duration : 88 ms Q-T Interval : 354 ms QTC Calculation(Bazett) : 425 ms P [place] : 75 degrees R Sherwood : 78 degrees T [place] : 76 degrees Test Reason : Arrhythmia Location : 4 : [place] [id number] Overread By : MD HAJI CANDACE Edited By : MD HAJI CANDACE Referred By : , Acquired by : DANTE VALENCIA Normal [facility] Hemogram/Diffon 06-08-2019 Abs Immature Grans 0.29 thou/cmm High 0.00-0.05 [facility] Comment on above: Performed By: #### A MY #### [place] [address] Abs Neut (ANC) 14.44 thou/cmm High 1.78-5.38 [facility] Comment on above: Performed By: #### A MY #### [place] [address] Abs. Baso 0.05 thou/cmm Normal 0.01-0.08 [facility] Comment on above: Performed By: #### A MY #### [place] [address] Abs. [place] 2.12 thou/cmm High 0.30-0.82 [facility] Comment on above: Performed By: #### A MY #### [place] [address] Basophils/100 WBC (Bld) 0.3 % Normal [facility] Comment on above: Performed By: #### A MY #### [facility] [address] [place], [place] [address] Eosinophils (Bld) [#/Vol] 0.05 thou/cmm Normal 0.04-0.54 [facility] Comment on above: Performed By: #### A MY #### [facility] [address] [place], [place] [address] Eosinophils/100 WBC (Bld) 0.3 % Normal [facility] Comment on above: Performed By: #### A MY #### [facility] [address] [place], [place] [address] Immature Grans 1.60 % Normal [facility] Comment on above: Performed By: #### A MY #### [facility] [address] [place] [address] Lymphocytes (Bld) [#/Vol] 1.04 thou/cmm Normal 0.84-2.85 [facility] Comment on above: Performed By: #### A MY #### [facility] [address] [place], [place] [address] Lymphocytes/100 WBC (Bld) 5.8 % Normal [facility] Comment on above: Performed By: #### A MY #### [facility] [address] [place], [place] [address] Monocytes/100 WBC (Bld) 11.8 % Normal [facility] Comment on above: Performed By: #### A MY #### [place] [address] Seg Neutrophil 80.2 % Normal [facility] Comment on above: Performed By: #### A MY #### [facility] [address] [place], [place] [address] Erythrocyte distribution width (RBC) [Ratio] 13.9 % Normal 11.6-14.4 [facility] Comment on above: Performed By: #### A MY #### [facility] [address] [place], [place] [address] Hematocrit (Bld) [Volume fraction] 40.1 % Normal 40.1-51.0 [facility] Comment on above: Performed By: #### A MY #### [facility] [address] [place] [address] Hemoglobin (Bld) [Mass/Vol] 13.2 g/dL Low 13.7-17.5 [facility] Comment on above: Performed By: #### A MY #### [facility] [address] [place] [address] MCH (RBC) [Entitic mass] 32.4 pg High 25.7-32.2 [facility] Comment on above: Performed By: #### A MY #### [facility] [address] [place] [address] MCHC (RBC) [Mass/Vol] 32.9 % Normal 32.3-36.5 [facility] Comment on above: Performed By: #### A MY #### [facility] [address] [place] [address] MCV (RBC) [Entitic vol] 98.5 fL High 83.2-95.6 [facility] Comment on above: Performed By: #### A MY #### [facility] [address] [place] [address] Platelet mean volume (Bld) [Entitic vol] 8.8 fL Normal 8.7-12.0 [facility] Comment on above: Performed By: #### A MY #### [facility] [address] [place] [address] Platelets (Bld) [#/Vol] 450 thou/cmm High 141-365 [facility] Comment on above: Performed By: #### A MY #### [place] [address] RBC (Bld) [#/Vol] 4.07 mil/cmm Low 4.63-6.08 [facility] Comment on above: Performed By: #### A MY #### [facility] [address] [place] [address] RDW SD 51.2 fl High 36.1-45.8 [facility] Comment on above: Performed By: #### A MY #### [place] [address] WBC (Bld) [#/Vol] 18.00 thou/cmm High 4.23-9.07 [facility] Comment on above: Performed By: #### A MY #### [facility] [address] [place], [place] [address] Magnesium Bloodon 06-08-2019 Magnesium [Mass/Vol] 1.9 mg/dL Normal 1.6-2.6 [facility] Comment on above: Performed By: #### G FR #### [address] [address] NURSING PROGon 06-08-2019 NURSING PROG HNO ID: [id number] Author: Radhika LucasRn) GILBERTO Worthy Service: Nursing Author Type: Registered Nurse Type: Nursing Progress Note Filed: 06/08/2019 7:34 PM Note Text: Nursing Progress: Topic: RESTRAINT NON-VIOLENT PATIENT NAME: Rhoda Poon PATIENT LOCATION: [place] [address] [address]* The patient demonstrates Confusion, Attempting to Remove Medical Devices Vital to Medical Stability, Lack of Understanding/Ability to Comply with Safety Directions, Impulsive Behavior as evidenced by the following behaviors pulling at lines and tubes which pose an imminent danger to self or others. The following interventions were attempted but were not effective in protecting the patient's safety: Alarms, Bed in Low/Locked Position, Call Light Within Reach, Contraindicated - Imminent Safety Risk, Diversion Activities, Gauze Wrap/Sleeve IV Site, IV/Feeding Bag/Pump Out of Vision, Medications Reviewed, Modify Environment, Modify Equipment Next, a comprehensive assessment was performed and warranted placing the patient in Soft Bilateral Wrists, the least restrictive restraint needed to protect the patient's safety. Ongoing safety assessments and evaluation for earliest removal of restraints will be performed. DATE: June 08, 2019 TIME: 7:34 PM Radhika Worthy RN [facility] NURSING PROG HNO ID: [id number] Author: Halina LucasRn) GILBERTO Carroll Service: Nursing Author Type: Registered Nurse Type: Nursing Progress Note Filed: 06/08/2019 9:03 AM Note Text: Dr. Johns notified patient's IV infiltrated after 1 day. Bilateral arms edematous, bruised, and arms show multiple old iv/blood sticks. RN unable to find new vein for adequate iv access. RN informed Dr. Johns unable to hang all medications due to compatibility with only 2 ivs. RN requesting picc line or central line due to fast turn over rate of iv site, and potent iv medications. No new orders from Dr. Andreas cordova rn [facility] NURSING PROG HNO ID: [id number] Author: Mynor Hernandez RN Service: ? Author Type: Registered Nurse Type: Nursing Progress Note Filed: 06/08/2019 8:32 AM Note Text: Nursing Progress: Topic: RESTRAINT NON-VIOLENT PATIENT NAME: Rhoda Poon PATIENT LOCATION: [place] [address] [address]* The patient demonstrates Inability to Retain Information Regarding Safety Directions as evidenced by the following behaviors intubated, essential medical devices in place which pose an imminent danger to self or others. The following interventions were attempted but were not effective in protecting the patient's safety: Alarms, Bed in Low/Locked Position, Call Light Within Reach Next, a comprehensive assessment was performed and warranted placing the patient in Soft Bilateral Wrists, the least restrictive restraint needed to protect the patient's safety. Ongoing safety assessments and evaluation for earliest removal of restraints will be performed. DATE: June 08, 2019 TIME: 8:00 AM Mynor Hernandez RN [facility] [id number] Author: Radhika Worthy RN Service: Nursing Author Type: Registered Nurse Type: Nursing Progress Note Filed: 06/07/2019 10:50 PM Note Text: Nursing Progress: Topic: RESTRAINT NON-VIOLENT PATIENT NAME: Rhoda Poon PATIENT LOCATION: [id number]/[place] [id number]* The patient demonstrates Inability to Retain Information Regarding Safety Directions as evidenced by the following behaviors pulling at lines and tubes which pose an imminent danger to self or others. The following interventions were attempted but were not effective in protecting the patient's safety: Alarms, Bed in Low/Locked Position, Call Light Within Reach Next, a comprehensive assessment was performed and warranted placing the patient in Soft Bilateral Wrists, the least restrictive restraint needed to protect the patient's safety. Ongoing safety assessments and evaluation for earliest removal of restraints will be performed. DATE: June 07, 2019 TIME: 10:49 PM Radhika Worthy RN [facility] PROGRESSon 06-08-2019 PROGRESS HNO ID: [id number] Author: Lakesha Wilkes Service: Critical Care Author Type: Physician Type: Progress Notes Filed: 06/08/2019 12:02 PM Note Text: INPATIENT TRAUMA/SICU PROGRESS NOTE SERVICE DATE: 06/08/2019 SERVICE TIME: 6:12 AM Subjective Intubated yesterday morning for airway protection and CO2 retention. NAEON. Tmax 38.4 Current Facility-Administered Medications Medication Dose Route Frequency - potassium chloride ER 20-40 mEq tab(s) (K-DUR, KLOR-CON) 20-40 mEq ORAL/FEEDING TUBE PRN Or - potassium chloride iv piggyback 20 mEq/100 mL 20 mEq INTRAVENOUS PRN - magnesium sulfate in water 2 g in sterile water 50 ml 2 g INTRAVENOUS PRN - sodium phosphate 45 mmol in NaCl 0.9% 250 mL 45 mmol INTRAVENOUS PRN - calcium gluconate 4 g in NaCl 0.9% 250 mL 4 g INTRAVENOUS PRN - NaCl 0.9% 3-5 mL 3-5 mL INTRAVENOUS q 12 H - lidocaine 5 % 1 Patch (LIDODERM) 1 Patch TRANSDERMAL DAILY AT 9 PM And - lidocaine patch - REMOVE OTHER DAILY And - lidocaine - VERIFY PATCH OTHER q 8 H - thiamine 100 mg tab(s) (VITAMIN B1) 100 mg ORAL TID - ipratropium-albuterol 3 mL nebulizer solution (DUONEB) 3 mL INHALATION q 6 H PRN - haloperidol lactate 5 mg injection (HALDOL) 5 mg INTRAVENOUS q 6 H PRN - oxyCODONE 5-10 mg oral liquid (ROXICODONE) 5-10 mg ORAL q 4 H PRN - morphine 2 mg injection 2 mg INTRAVENOUS q 2 H PRN - enoxaparin 30 mg injection (LOVENOX) 30 mg SUBCUTANEOUS BID - metoprolol tartrate (short acting) 25 mg tab(s) (LOPRESSOR) 25 mg ORAL q 12 H - metoprolol 5 mg injection (LOPRESSOR) 5 mg INTRAVENOUS q 6 H PRN - senna-docusate 8.6-50 mg 1 tablet (SENNA-S) 1 tablet ORAL BID - QUEtiapine (SEROquel) tab(s) 75 mg 75 mg ORAL BID - polyethylene glycol 3350 17 g packet (MIRALAX, GLYCOLAX) 17 g ORAL DAILY - piperacillin-tazobactam 4.5 g in D5W 100 mL MB+ (ZOSYN) 4.5 g INTRAVENOUS q 6 H - LORazepam 1 mg tab(s) (ATIVAN) 1 mg ORAL q 1 H PRN Or - LORazepam 1 mg injection (ATIVAN) 1 mg INTRAVENOUS q 1 H PRN - LORazepam 2 mg (ATIVAN) 2 mg ORAL q 1 H PRN Or - LORazepam 2 mg injection (ATIVAN) 2 mg INTRAVENOUS q 1 H PRN - melatonin 9 mg tab(s) 9 mg ORAL DAILY (8 PM) - cloNIDine HCl 0.2 mg tab(s) (CATAPRES) 0.2 mg ORAL/FEEDING TUBE q 8 H - acetaminophen 975 mg tab(s) (TYLENOL) 975 mg ORAL q 6 H PRN - levETIRAcetam iv piggyback 1,000 mg in NaCl (iso-osmotic) 100 mL (KEPPRA) 1,000 mg INTRAVENOUS BID - propofol infusion (DIPRIVAN) 5-60 mcg/kg/min INTRAVENOUS CONTINUOUS - metoclopramide HCl 10 mg injection (REGLAN) 10 mg INTRAVENOUS q 6 H - dextrose 5% in NaCl 0.9% with KCl 20 mEq/L iv infusion 100 mL/hr INTRAVENOUS CONTINUOUS - pantoprazole DR 40 mg tab(s) (PROTONIX) 40 mg ORAL DAILY (6 AM) - Chlorhexidine Gluconate 0.12 % 15 mL (PERIDEX) 15 mL ORAL q 6 H Objective VITAL SIGNS BP 147/70 Pulse 75 Temp (Src) 100.2 (Axillary) Resp 17 Ht 5' 7.992 (1.73m) Wt 153 lb 14.1 oz (69.8kg) SpO2 94% BMI 23.40 kg/(m2). O2 Therapy: Ventilator, %FIO2: 40 Temp (24hrs), Av.5 ?C (99.5 ?F), Min:34.5 ?C (94.1 ?F), Max:38.4 ?C (101.1 ?F) Date 06/07/19699 - 06/08/1965806/08/19699 - 06/09/19 0659 Shift 4430-9909 0206-2977 7191-8000 24 Hour Total 2186-5280 5600-6670 9906-9629 24 Hour Total INTAKE IV 750 1093.3 692.6 2535.9 IVPB 250 250 D5 NS w/20KCL 711.9 520 1231.9 Zosyn IV 100 100 100 300 Calcium IVPB 250 250 Propofol IV 181.4 72.6 254 MAGNESIUM SULFATE 50 50 Levetiracetam IV 100 100 200 Irrigants 250 250 Irrigant/Flush Amount In (GI Feed 06/07/19 0920 Gastric Mouth) 250 250 Gastric Tube 300 300 Tube Feed Intake (I/O) (GI Feed 06/07/19 0920 Gastric Mouth) 300 300 Shift Total 750 1643.3 692.6 3085.9 OUTPUT Urine 1425 359 594 6544 Urine Incontinence/Not Saved 1 x 1 x Output ( External Collection Device 06/04/191999) 1425 740 950 7992 Tubes 2088 582 3362 Output (GI Feed 06/07/19 0920 Gastric Mouth) 9773 358 5134 Shift Total 2925 5297 383 7377 Weight (kg) 69.8 69.8 69.8 69.8 69.8 69.8 69.8 69.8 PHYSICAL EXAM: GENERAL:?sedated, NAD HEENT: normocephalic, atraumatic NECK: Trachea midline, no JVD SKIN:?Skin color, texture, turgor normal. No rashes or lesions. Slightly diaphoretic LUNGS: intubated, CTAB. on O2 Therapy: Ventilator on Liters: 15 sating at SpO2: 94 % CARDIAC: reg rate, reg rhythm ABDOMEN:?soft, ?Non-distended EXTREMITIES:?no deformities, no edema NEURO:?not following commands PSYCH:?unable to assess DATA: Diagnostic tests reviewed for today's visit: Recent Labs 06/08/19 0350 06/07/19 1746 06/07/19 1050 PH 7.490* 7.491* 7.381 PCO2 41.8 45.3* 55.8* PO2 74.0* 80.3* 154.0* BE 7.6* 9.7* 6.0* Recent Labs 06/08/19 0350 06/07/19 0355 06/06/19 0410 06/06/19 0155 06/05/19 1130 CREAT 0.37* 0.35* 0.42* -- 0.44* BUN 5* 6* 8 -- 6* NA 132* 126* 131* -- 131* K 3.6 4.5 3.9 -- 4.5 CHLOR 93* 90* 96* -- 94* CO2 31 31 29 -- 27 ANION 12 10 10 -- 15 GLUC 161* 143* 146* -- 115* CA 8.5 8.5 8.3* -- 8.3* P 2.2* 3.2 3.2 -- -- MG 1.9 1.8 1.9 -- -- WBC 18.00* 21.28* 17.93* -- -- HB 13.2* 14.3 14.0 -- -- HCT 40.1 43.6 41.5 -- -- PLT 450* 360 287 -- -- LACT -- -- -- 0.8 -- Assessment/Plan This is a 49 year old male with?below injuries and delirium tremens,?using less ativan, continuing leukocytosis and fever ? 1. Left posterolateral fifth rib fracture with adjacent lung contusions 2. Additional lung contusions vs infectious/inflammatory changes 3. There is an acute left occipital parietal temporal subdural hematoma estimated to measure approximately 5 mm maximal thickness. ?Small associated foci of internal gas. ?There is mild extension of subdural hemorrhage along the left tentorial leaflet.?Rightward midline shift of 2mm. 4. Nondisplaced obliquely oriented overlying calvarial fracture 5. Subarachnoid hemorrhage ACTIVE PROBLEM LIST Hypertension Depression With Anxiety Tobacco Use Disorder Personal history of alcoholism (HCC) Depression Tremor Gerd (Gastroesophageal Reflux Disease) Bipolar Affective Disorder (Hcc) Epilepsy (Hcc) Pain of Upper Abdomen Subdural Hematoma (Hcc) Dts (Delirium Tremens) (Hcc) Sah (Subarachnoid Hemorrhage) (Hcc) Closed Fracture of One Rib of Left Side Closed Fracture of Vault of Skull (Hcc) Aphasia Malnutrition of Mild Degree (Hcc) Acute Respiratory Failure With Hypercapnia (Hcc) Neuro: - Pain Control:?tylenol, oxycodone, morphine prn, lidoderm patch - Sedation:propofol,?sero quel BID - melatonin - Seizure ppx:?keppra - neuro checks - CIWA for drinking history - NSX?signed off, no neurosurgical intervention - CT brain pending ? CV: - tele - EKG if arrythmia -?scheduled clonidine and metoprolol ? Resp: - remains on vent - daily CXR, ABG ? GI: DIET TUBE FEED - CONTIN (NO TRAY) - reglan - Bowel Regimen:?Senna-S and miralax - GI ppx:?none - Nausea control:?zofran ? Renal: - Strict I/Os - D5 NS + 20meq KCl @ 125mL/hr - replete lytes prn, keep Mag >2, K >3.5, iCa >4.2 Phos >2.5 Intake/Output Summary (Last 24 hours) at 06/07/2019 0659 Last data filed at 06/07/2019 0600 Gross per 24 hour Intake 3370 ml Output 1930 ml Net 1440 ml Heme: HGB - 13.2, - Daily CBCs - Transfuse Hb <7 Endo: GLU - 161, - no active endocrine issues ID: WBC - 18.00, - Daily CBCs - Cultures: ?- MRSA (-) ?- BCx NGTD ?- RCx GPC - continue zosyn. Follow for culture result Ext: - Mobility order:?bedrest.? - Restraints:?Yes? ? Ppx: Lovenox, SVDs Lines: - anticipate need for PICC vs CVC Lines, Drains, and Airways Line Arterial Line 06/07/19 0930 Arterial Line Left 1 day Peripheral 06/07/19 0812 Short Left Hand 20 Gauge 1 day Peripheral 06/07/19 1225 Short Right Hand 20 Gauge less than 1 day Drain GI Feed 06/02/19 1446 Gastric Right Naris 12 Fr 5 days External Collection Device 06/04/19 2000 3 days GI Feed 06/07/19 0920 Gastric Mouth 1 day Airway Airway 06/07/19 0900 1 day Consults: trauma, SICU, NSX (s/o) ? Dispo: remain in ICU ? Patient Checklist Deep vein thrombosis prophylaxis administered??Yes. Stress ulcer prophylaxis??Yes Pain addressed??Yes. Nutrition: Enteral- No. ?TPN- No. PO-?No. Restraints??Yes. Dispo needs assessed??Yes. SICU Service Pager: For questions or concerns Mon-Fri 6a-5p please page [phone]. After 5pm and on Weekends and Holidays, please page [phone]. SIGNATURE: Reginaldo Johns MD PATIENT NAME: Rhoda Poon DATE: June 08, 2019 TIME: 6:12 AM PAGER: above As above Remains on Propofol due to restlessness OG placed for high gastric content Started on Reglan QTc 425 Plan: Vent support IV antibiotics Clamp OG tube Restart TF via [place] SCD neuro checks Repeat CT in AM Zhang for UOP I provided 35 minutes of critical care services which were necessary due to above specified injuries and illnesses. This patient has a high probability of sudden, clinical significant deterioration, which required the highest level of care and preparedness to intervene urgently. I managed and supervised life or organ supporting interventions that require frequent assessments. This time does not include time devoted to teaching and to any procedure I billed separately. I have personally seen and examined this patient and participated in the rojas components of this encounter with the multi-disciplinary ICU team. I discussed the management of this case with the resident and reviewed/confirmed their documentation, attached or in separate note. I personally reviewed today's actual images, the associated image reports, and current labs. I supervised the ordering of additional testing, imaging, labs, and/or consultations. The patient and/or family were fully informed of the findings and plan of care. They had the opportunity to ask questions and raise any issues of concern, all of which were answered and dealt with by me to their stated satisfaction. The critical care treatment was mainly directed to address the following issues: (S06.5X9A) Subdural hematoma (HCC) (primary encounter diagnosis) (S02.0XXA) Closed fracture of vault of skull, initial encounter (HCC) (I60.9) Subarachnoid hemorrhage (HCC) (S06.359A) Traumatic left-sided intracerebral hemorrhage with loss of consciousness, initial encounter (HCC) (S02.19XA) Closed fracture of temporal bone, initial encounter (HCC) (S22.32XA) Closed fracture of one rib of left side, initial encounter (E44.1) Malnutrition of mild degree (HCC) (F10.231) DTs (delirium tremens) (HCC) (I60.9) SAH (subarachnoid hemorrhage) (HCC) (R47.01) Aphasia (F31.9) Bipolar affective disorder, remission status unspecified ([facility]) (J96.02) Acute respiratory failure with hypercapnia ([facility]) Management included sedation, pain control and ventilation assessment including need for ventilator, weaning and/or extubation as indicated. Management of critical care illnesses are edited above by me, including system by system plan and are not only limited to infectious disease and tailoring the antibiotic therapy, nutrition assessment and supplementation, electrolyte correction and prevention of ICU related complications using ventilator bundle, sedation holiday and assessment and removal of lines and tubes where indicated. SIGNATURE: Lakesha Wilkes MD PATIENT NAME: Rhoda Poon DATE: June 08, 2019 TIME: 11:54 AM Normal [facility] Phosphorus Bloodon 9 Phosphate [Mass/Vol] 2.2 mg/dL Low 2.5-4.9 [facility] Comment on above: Performed By: #### G FR #### [facility] [address] [place] [address] XR CHEST 1V FRONTALon 2018 XR CHEST 1V FRONTAL * * *Final Report* * * DATE OF EXAM: Jun 08 2019 5:23AM AKX [id number] - XR CHEST 1V FRONTAL / PROCEDURE REASON: Evaluate tube, line or lead position * * * * Physician Interpretation * * * * EXAMINATION: CHEST RADIOGRAPH (SINGLE VIEW AP OR PA) CLINICAL HISTORY: Evaluate tube, line or lead position MQ: [id number]_5 Comparison: 06/07/2019. RESULT: Lines, tubes, and devices: Examination limited due to overlying EKG leads. Again demonstrated are endotracheal, NG and enteric tubes, appearance essentially unchanged since previous examination. The distal aspect of the feeding tube is not included on examination. Lungs and pleura: Likely small left pleural effusion, unchanged. Bibasilar atelectasis versus consolidation, essentially unchanged. Faint mixed interstitial and airspace opacities are present within the bilateral mid and lower lung zones, slightly increased in conspicuity. No discrete pneumothorax. Cardiomediastinal silhouette: Unchanged Other: Osseous structures and soft tissues grossly intact. IMPRESSION: No significant interval change regarding indwelling endotracheal, feeding and NG tubes. Likely small left pleural effusion as well as bibasilar atelectasis versus consolidation. Faint mixed interstitial and airspace opacities within the lungs bilaterally, possibly due to edema or pneumonia. 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 Date/Time: Jun 08 2019 8:43A Dictated by : JOSELUIS MOISE MD This examination was interpreted and the report reviewed and electronically signed by: JOSELUIS MOISE MD on Jun 08 2019 8:45AM EST Normal [facility] Basic Panelon 06-07-2019 Creatinine [Mass/Vol] 0.35 mg/dL Low 0.67-1.17 [facility] Comment on above: Performed By: #### L IP #### [facility] [address] [place], [place] [address] Anion gap [Moles/Vol] 10 mmol/L Normal 8-16 [facility] Comment on above: Performed By: #### L IP #### [facility] [address] [place], [place] [address] CO2 [Moles/Vol] 31 mmol/L Normal 21-32 [facility] Comment on above: Performed By: #### L IP #### [facility] [address] [place], [place] [address] Calcium [Mass/Vol] 8.5 mg/dL Normal 8.5-10.1 [facility] Comment on above: Performed By: #### L IP #### [facility] [address] [place], [place] [address] Glucose [Mass/Vol] 143 mg/dL High 70-99 [facility] Comment on above: Performed By: #### L IP #### [facility] [address] [place], [place] [address] Urea nitrogen [Mass/Vol] 6 mg/dL Low 7-18 [facility] Comment on above: Performed By: #### L IP #### [facility] [address] [place], [place] [address] Chloride [Moles/Vol] 90 mmol/L Low 98-107 [facility] Comment on above: Performed By: #### L IP #### [facility] [address] [place], [place] [address] Potassium [Moles/Vol] 4.5 mmol/L Normal 3.5-5.1 [facility] Comment on above: Performed By: #### L IP #### [facility] [address] [place] [address] Sodium [Moles/Vol] 126 mmol/L Low 136-145 [facility] Comment on above: Performed By: #### L IP #### [facility] [address] [place] [address] Blood Gas Arterialon 019 FIO2 Value Not Given Normal [facility] Comment on above: Performed By: #### A MY #### [facility] [address] [place] [address] Base Excess 9.7 mmol/L High -3.0-3.0 [facility] Comment on above: Performed By: #### A MY #### [facility] [address] [place] [address] HCO3 (Bld) [Moles/Vol] 34.2 mmol/L High 21.0-28.0 [facility] Comment on above: Performed By: #### A MY #### [facility] [address] [place] [address] O2% Sat Arterial 97.4 % Normal 96.0-100.0 [facility] Comment on above: Performed By: #### A MY #### [facility] [address] [place] [address] PCO2 Arterial 45.3 mm Hg High 35.0-45.0 [facility] Comment on above: Performed By: #### A MY #### [facility] [address] [place] [address] pH Arterial 7.491 High 7.350-7.450 [facility] Comment on above: Performed By: #### A MY #### [facility] [address] [place] [address] PO2 Arterial 80.3 mm Hg Low 83.0-108.0 [facility] Comment on above: Performed By: #### A MY #### [facility] [address] [place] [address] FIO2 Value Not Given Normal [facility] Comment on above: Performed By: #### A MY #### [facility] [address] [place] [address] Base Excess 6.0 mmol/L High -3.0-3.0 [facility] Comment on above: Performed By: #### A MY #### [facility] [address] [place] [address] HCO3 (Bld) [Moles/Vol] 32.3 mmol/L High 21.0-28.0 [facility] Comment on above: Performed By: #### A MY #### [facility] [address] [place] [address] O2% Sat Arterial 99.3 % Normal 96.0-100.0 [facility] Comment on above: Performed By: #### A MY #### [facility] [address] [place] [address] PCO2 Arterial 55.8 mm Hg High 35.0-45.0 [facility] Comment on above: Performed By: #### A MY #### [facility] [address] [place] [address] pH Arterial 7.381 Normal 7.350-7.450 [facility] Comment on above: Performed By: #### A MY #### [facility] [address] [place] [address] PO2 Arterial 154.0 mm Hg High 83.0-108.0 [facility] Comment on above: Performed By: #### A MY #### [place] [address] Base Excess 4.9 mmol/L High -3.0-3.0 [facility] Comment on above: Performed By: #### A MY #### [facility] [address] [place] [address] FIO2 15L Normal [facility] Comment on above: Performed By: #### A MY #### [facility] [address] [place] [address] HCO3 (Bld) [Moles/Vol] 38.7 mmol/L High 21.0-28.0 [facility] Comment on above: Performed By: #### A MY #### [place] [address] O2% Sat Arterial 95.2 % Low 96.0-100.0 [facility] Comment on above: Performed By: #### A MY #### [facility] [address] [place] [address] PCO2 Arterial 113.0 mm Hg Critically high 35.0-45.0 [facility] Comment on above: Performed By: #### A MY #### [facility] [address] [place] [address] pH Arterial 7.162 Critically low 7.350-7.450 [facility] Comment on above: Performed By: #### A MY #### [place] [address] PO2 Arterial 93.5 mm Hg Normal 83.0-108.0 [facility] Comment on above: Performed By: #### A MY #### [place] [address] Hemogram/Diffon 06-07-2019 Abs Immature Grans 0.32 thou/cmm High 0.00-0.05 [facility] Comment on above: Performed By: #### L IP #### [place] [address] Abs Neut (ANC) 18.05 thou/cmm High 1.78-5.38 [facility] Comment on above: Performed By: #### L IP #### [place] [address] Abs. Baso 0.09 thou/cmm High 0.01-0.08 [facility] Comment on above: Performed By: #### L IP #### [place] [address] Abs. [place] 2.02 thou/cmm High 0.30-0.82 [facility] Comment on above: Performed By: #### L IP #### [place] [address] Basophils/100 WBC (Bld) 0.4 % Normal [facility] Comment on above: Performed By: #### L IP #### [address] [place], [place] [address] Eosinophils (Bld) [#/Vol] 0.06 thou/cmm Normal 0.04-0.54 [facility] Comment on above: Performed By: #### L IP #### [facility] [address] [place], [place] [address] Eosinophils/100 WBC (Bld) 0.3 % Normal [facility] Comment on above: Performed By: #### L IP #### [facility] [address] [place], [place] [address] Immature Grans 1.50 % Normal [facility] Comment on above: Performed By: #### L IP #### [facility] [address] [place], [place] [address] Lymphocytes (Bld) [#/Vol] 0.74 thou/cmm Low 0.84-2.85 [facility] Comment on above: Performed By: #### L IP #### [facility] [address] [place], [place] [address] Lymphocytes/100 WBC (Bld) 3.5 % Normal [facility] Comment on above: Performed By: #### L IP #### [facility] [address] [place], [place] [address] Monocytes/100 WBC (Bld) 9.5 % Normal [facility] Comment on above: Performed By: #### L IP #### [facility] [address] [place], [place] [address] Seg Neutrophil 84.8 % Normal [facility] Comment on above: Performed By: #### L IP #### [facility] [address] [place], [place] [address] Erythrocyte distribution width (RBC) [Ratio] 13.5 % Normal 11.6-14.4 [facility] Comment on above: Performed By: #### L IP #### [facility] [address] [place], [place] [address] Hematocrit (Bld) [Volume fraction] 43.6 % Normal 40.1-51.0 [facility] Comment on above: Performed By: #### L IP #### [address] [address] Hemoglobin (Bld) [Mass/Vol] 14.3 g/dL Normal 13.7-17.5 [facility] Comment on above: Performed By: #### L IP #### [facility] [address] [place] [address] MCH (RBC) [Entitic mass] 32.7 pg High 25.7-32.2 [facility] Comment on above: Performed By: #### L IP #### [facility] [address] [place] [address] MCHC (RBC) [Mass/Vol] 32.8 % Normal 32.3-36.5 [facility] Comment on above: Performed By: #### L IP #### [facility] [address] [place] [address] MCV (RBC) [Entitic vol] 99.8 fL High 83.2-95.6 [facility] Comment on above: Performed By: #### L IP #### [facility] [address] [place] [address] Platelet mean volume (Bld) [Entitic vol] 8.7 fL Normal 8.7-12.0 [facility] Comment on above: Performed By: #### L IP #### [facility] [address] [place] [address] Platelets (Bld) [#/Vol] 360 thou/cmm Normal 141-365 [facility] Comment on above: Performed By: #### L IP #### [facility] [address] [place] [address] RBC (Bld) [#/Vol] 4.37 mil/cmm Low 4.63-6.08 [facility] Comment on above: Performed By: #### L IP #### [facility] [address] [place] [address] RDW SD 50.1 fl High 36.1-45.8 [facility] Comment on above: Performed By: #### L IP #### [place] [address] WBC (Bld) [#/Vol] 21.28 thou/cmm High 4.23-9.07 [facility] Comment on above: Performed By: #### L IP #### [facility] [address] [place], [place] [address] Ionized Calciumon 06-07-2019 Ionized Ca,PH7.4 4.17 mg/dL Low 4.61-5.17 [facility] Comment on above: Performed By: #### L IP #### [facility] [address] [place], [place] [address] pH (Bld) 7.402 [pH] Normal 7.320-7.430 [facility] Comment on above: Performed By: #### L IP #### [facility] [address] [place], [place] [address] Ionized Calcium 4.16 mg/dL Low 4.61-5.17 [facility] Comment on above: Performed By: #### L IP #### [facility] [address] [place], [place] [address] Magnesium Bloodon 06-07-2019 Magnesium [Mass/Vol] 1.8 mg/dL Normal 1.6-2.6 [facility] Comment on above: Performed By: #### L IP #### [facility] [address] [place] [id number] NURSING PROGon 06-07-2019 NURSING PROG HNO ID: [id number] Author: Halina (Rn) GILBERTO Carroll Service: Nursing Author Type: Registered Nurse Type: Nursing Progress Note Filed: 06/07/2019 7:30 AM Note Text: Nursing Progress: Topic: RESTRAINT NON-VIOLENT PATIENT NAME: Rhoda Poon PATIENT LOCATION: [id number]/[place] [address] 0* The patient demonstrates Attempting to Remove Medical Devices Vital to Medical Stability, Confusion, Lack of Understanding/Ability to Comply with Safety Directions, Impulsive Behavior, Inability to be Redirected, Inability to Retain Information Regarding Safety Directions as evidenced by the following behaviors pt attempting to pull at all medical devices which pose an imminent danger to self or others. The following interventions were attempted but were not effective in protecting the patient's safety: Alarms, Bed in Low/Locked Position, Call Light Within Reach, Medications Reviewed, Modify Environment, Modify Equipment, Frequent Observation, Pain/Discomfort Relief Next, a comprehensive assessment was performed and warranted placing the patient in Soft Bilateral Wrists, the least restrictive restraint needed to protect the patient's safety. Ongoing safety assessments and evaluation for earliest removal of restraints will be performed. DATE: June 07, 2019 TIME: 7:30 AM Halina Carroll RN [facility] NURSING PROG HNO ID: [id number] Author: Halina (Rn) GILBERTO Carroll Service: Nursing Author Type: Registered Nurse Type: Nursing Progress Note Filed: 06/07/2019 7:50 AM Note Text: Upon initial assessment, pt stuporous. Not following commands, not opening eyes. Agonal breathing. NT suctioned for moderate amount. Patient stating 89% on high flow NC 8 L- changed to NRB now pulse ox 92%.- resp. Called for breathing treat. Dr. Johns at bedside and aware. Precedex stopped immediately. SBP >200 - lopressor given Tamia MACIAS [facility] PROGRESSon 06-07-2019 PROGRESS HNO ID: [id number] Author: Lakesha Wilkes Service: Trauma Author Type: Physician Type: Progress Notes Filed: 06/07/2019 1:09 PM Note Text: INPATIENT TRAUMA/SICU PROGRESS NOTE SERVICE DATE: 06/07/2019 SERVICE TIME: 6:13 AM Subjective Nurses were concerned regarding pts breathing pattern overnight. They report blood tinged secretions. The breathing clears up with a jaw thrust. Tachycardic and hypertensive ON. Received beta alicia. Tmax 37.9. Current Facility-Administered Medications Medication Dose Route Frequency - potassium chloride ER 20-40 mEq tab(s) (K-DUR, KLOR-CON) 20-40 mEq ORAL/FEEDING TUBE PRN Or - potassium chloride iv piggyback 20 mEq/100 mL 20 mEq INTRAVENOUS PRN - magnesium sulfate in water 2 g in sterile water 50 ml 2 g INTRAVENOUS PRN - sodium phosphate 45 mmol in NaCl 0.9% 250 mL 45 mmol INTRAVENOUS PRN - calcium gluconate 4 g in NaCl 0.9% 250 mL 4 g INTRAVENOUS PRN - NaCl 0.9% 3-5 mL 3-5 mL INTRAVENOUS q 12 H - lidocaine 5 % 1 Patch (LIDODERM) 1 Patch TRANSDERMAL DAILY AT 9 PM And - lidocaine patch - REMOVE OTHER DAILY And - lidocaine - VERIFY PATCH OTHER q 8 H - thiamine 100 mg tab(s) (VITAMIN B1) 100 mg ORAL TID - ipratropium-albuterol 3 mL nebulizer solution (DUONEB) 3 mL INHALATION q 6 H PRN - haloperidol lactate 5 mg injection (HALDOL) 5 mg INTRAVENOUS q 6 H PRN - oxyCODONE 5-10 mg oral liquid (ROXICODONE) 5-10 mg ORAL q 4 H PRN - morphine 2 mg injection 2 mg INTRAVENOUS q 2 H PRN - enoxaparin 30 mg injection (LOVENOX) 30 mg SUBCUTANEOUS BID - levETIRAcetam 1,000 mg oral liquid (KEPPRA) 1,000 mg ORAL BID - metoprolol tartrate (short acting) 25 mg tab(s) (LOPRESSOR) 25 mg ORAL q 12 H - metoprolol 5 mg injection (LOPRESSOR) 5 mg INTRAVENOUS q 6 H PRN - senna-docusate 8.6-50 mg 1 tablet (SENNA-S) 1 tablet ORAL BID - QUEtiapine (SEROquel) tab(s) 75 mg 75 mg ORAL BID - polyethylene glycol 3350 17 g packet (MIRALAX, GLYCOLAX) 17 g ORAL DAILY - piperacillin-tazobactam 4.5 g in D5W 100 mL MB+ (ZOSYN) 4.5 g INTRAVENOUS q 6 H - LORazepam 1 mg tab(s) (ATIVAN) 1 mg ORAL q 1 H PRN Or - LORazepam 1 mg injection (ATIVAN) 1 mg INTRAVENOUS q 1 H PRN - LORazepam 2 mg (ATIVAN) 2 mg ORAL q 1 H PRN Or - LORazepam 2 mg injection (ATIVAN) 2 mg INTRAVENOUS q 1 H PRN - melatonin 9 mg tab(s) 9 mg ORAL DAILY (8 PM) - dexmedetomidine 400 mcg in NaCl 0.9% 100 mL (PRECEDEX) 0.2-0.7 mcg/kg/hr INTRAVENOUS CONTINUOUS - cloNIDine HCl 0.2 mg tab(s) (CATAPRES) 0.2 mg ORAL/FEEDING TUBE q 8 H - acetaminophen 975 mg tab(s) (TYLENOL) 975 mg ORAL q 6 H PRN Objective VITAL SIGNS BP 141/80 Pulse 113 Temp (Src) 100.2 (Axillary) Resp 25 Ht 5' 7.992 (1.73m) Wt 153 lb 14.1 oz (69.8kg) SpO2 92% BMI 23.40 kg/(m2). O2 Therapy: Hi-Flow, Liters: 6 Temp (24hrs), Av.1 ?C (98.7 ?F), Min:35.8 ?C (96.4 ?F), Max:37.9 ?C (100.2 ?F) Date 06/06/19 07 - 06/07/19 0659 06/07/19 07 - 06/08/19 0659 Shift 3605-8846 0758-4461 1918-9926 24 Hour Total 8286-4267 9663-9493 1923-6401 24 Hour Total INTAKE IV 387 447 510 9728 IVPB 200 20 220 NS 0.9% 20 20 316 356 Zosyn IV 200 100 300 Dexmedetomidine IV 167 36 165 368 Irrigants 260 160 130 550 Irrigant/Flush Amount In (GI Feed 06/02/19 1446 Gastric Right Naris 12 Fr) 260 160 130 550 Gastric Tube 603 110 680 0602 Tube Feed Intake (I/O) (GI Feed 06/02/19 1446 Gastric Right Naris 12 Fr) 603 458 515 6883 Shift Total 1960 143 2211 3068 OUTPUT Urine 200 374 599 7241 Urine Incontinence/Not Saved 2 x 2 x Output ( External Collection Device 06/04/191999) 200 448 337 5724 # of BMs Number of BMs 0 x 0 x 0 x Shift Total 200 665 532 3379 Weight (kg) 69.8 69.8 69.8 69.8 69.8 69.8 69.8 69.8 PHYSICAL EXAM: GENERAL: snoring, sedated HEENT: normocephalic, atraumatic, EOMI NECK: Trachea midline, no JVD SKIN: Skin color, texture, turgor normal. No rashes or lesions. Slightly diaphoretic LUNGS: CTAB. O2 Therapy: Hi-Flow on Liters: 6 sating at SpO2: 92 %. Snoring. Breathing clears with jaw thrust CARDIAC: tachycardic, reg rhythm ABDOMEN: soft, Non-distended EXTREMITIES: ROM of all joint grossly normal: strength grossly normal bilaterally. No deformities noted. NEURO: not following commands. Difficult to arouse PSYCH: unable to assess DATA: Diagnostic tests reviewed for today's visit: No results for input(s): BODSITE, CTYPE, PH, PCO2, PO2, BE, HCO3, CO2CT, O2HB, COHB, MHGB, TEMP, PHTC, PCO2T, PO2T, O2AD in the last 72 hours. Recent Labs 06/07/19 0355 06/06/19 0410 06/06/19 0155 06/05/19 1130 06/05/19 0335 CREAT 0.35* 0.42* -- 0.44* 0.47* BUN 6* 8 -- 6* 8 NA 126* 131* -- 131* 133* K 4.5 3.9 -- 4.5 3.3* CHLOR 90* 96* -- 94* 98 CO2 31 29 -- 27 28 ANION 10 10 -- 15 10 GLUC 143* 146* -- 115* 110* CA 8.5 8.3* -- 8.3* 8.2* P 3.2 3.2 -- -- 2.6 MG 1.8 1.9 -- -- 1.7 WBC 21.28* 17.93* -- -- 16.11* HB 14.3 14.0 -- -- 14.3 HCT 43.6 41.5 -- -- 43.8 PLT 360 287 -- -- 231 LACT -- -- 0.8 -- -- Assessment/Plan ? This is a 49 year old male with?below injuries and delirium tremens, using less ativan, continuing leukocytosis and fever ? 1. Left posterolateral fifth rib fracture with adjacent lung contusions 2. Additional lung contusions vs infectious/inflammatory changes 3. There is an acute left occipital parietal temporal subdural hematoma estimated to measure approximately 5 mm maximal thickness. ?Small associated foci of internal gas. ?There is mild extension of subdural hemorrhage along the left tentorial leaflet.?Rightward midline shift of 2mm. 4. Nondisplaced obliquely oriented overlying calvarial fracture 5. Subarachnoid hemorrhage ACTIVE PROBLEM LIST Hypertension Depression With Anxiety Tobacco Use Disorder Personal history of alcoholism (HCC) Depression Tremor Gerd (Gastroesophageal Reflux Disease) Bipolar Affective Disorder (Hcc) Epilepsy (Hcc) Pain of Upper Abdomen Subdural Hematoma (Hcc) Dts (Delirium Tremens) ([facility]) Sah (Subarachnoid Hemorrhage) ([facility]) Closed Fracture of One Rib of Left Side Closed Fracture of Vault of Skull (Hcc) Aphasia Malnutrition of Mild Degree (Hcc) Neuro: - Pain Control:?tylenol, oxycodone, morphine prn - Sedation:?precedex,?ser oquel BID,?ativan prn - melatonin - Seizure ppx:?keppra - neuro checks - CIWA for drinking history - NSX?signed off, no neurosurgical intervention -On precedex. Wean as possible CV: - tele - EKG if arrythmia - scheduled clonidine and metoprolol. May need to increase beta alicia Resp: - ABG with severe CO2 retention. Temporarily placed on bipap - plan to intubate this morning GI: DIET TUBE FEED - CONTIN (NO TRAY) - Bowel Regimen: Senna-S and miralax - GI ppx: none - Nausea control: zofran Renal: - external catheter, may need a zhang given retention and need for straight catheterization - Strict I/Os - replete lytes prn, keep Mag >2, K >3.5, iCa >4.2 Phos >2.5 - Sodium low. May need to give hypertonic saline. Intake/Output Summary (Last 24 hours) at 06/06/2019 0659 Last data filed at 06/06/2019 0600 Gross per 24 hour Intake 3178.5 ml Output 1395 ml Net 1783.5 ml Heme: HGB - 14.3, - Daily CBCs - Transfuse Hb <7 Endo: GLU - 143, - no active endocrine issues ID: WBC - 21.28 - Daily CBCs - Cultures: - MRSA (-) - BCx (p) - RCx (p) - continue zosyn. Follow for culture result Ext: - Mobility order: bedrest. - Restraints: Yes Ppx: Lovenox, SVDs Lines: Lines, Drains, and Airways Line Peripheral 06/03/19 2226 Assessment Short Right Antecubital 20 Gauge 3 days Peripheral 06/04/19 2030 Short Left Antecubital 20 Gauge 2 days Drain GI Feed 06/02/19 1446 Gastric Right Naris 12 Fr 4 days External Collection Device 06/04/191999 2 days Consults: trauma, SICU, NSX (s/o) Dispo: remain in ICU Patient Checklist Deep vein thrombosis prophylaxis administered? Yes. Stress ulcer prophylaxis? No, not indicated.. Pain addressed? Yes. Nutrition: Enteral- Yes. TPN- No. PO- No. Restraints? Yes. Dispo needs assessed? Yes. SICU Service Pager: For questions or concerns Mon-Sun 6a-5p please page [phone]. After 5pm and on Weekends and Holidays, please page [phone]. SIGNATURE: Reginaldo Johns MD PATIENT NAME: Rhoda Poon DATE: June 07, 2019 TIME: 6:13 AM PAGER: above As above Had to be intubated for severe respiratory acidosis and unresponsiveness High output from OG tube On Propfol drip Plan: Vent support NPO except for meds IV fluids Propofol drip[ D/C precedex Seroquel Add Reglan Check EKG in AM Daily CXR Protonix 40 mg IV daily for stress ulcer prophylaxis I provided 35 minutes of critical care services which were necessary due to above specified injuries and illnesses. This patient has a high probability of sudden, clinical significant deterioration, which required the highest level of care and preparedness to intervene urgently. I managed and supervised life or organ supporting interventions that require frequent assessments. This time does not include time devoted to teaching and to any procedure I billed separately. I have personally seen and examined this patient and participated in the rojas components of this encounter with the multi-disciplinary ICU team. I discussed the management of this case with the resident and reviewed/confirmed their documentation, attached or in separate note. I personally reviewed today's actual images, the associated image reports, and current labs. I supervised the ordering of additional testing, imaging, labs, and/or consultations. The patient and/or family were fully informed of the findings and plan of care. They had the opportunity to ask questions and raise any issues of concern, all of which were answered and dealt with by me to their stated satisfaction. The critical care treatment was mainly directed to address the following issues: (S06.5X9A) Subdural hematoma (HCC) (primary encounter diagnosis) (S02.0XXA) Closed fracture of vault of skull, initial encounter (HCC) (I60.9) Subarachnoid hemorrhage (HCC) (S06.359A) Traumatic left-sided intracerebral hemorrhage with loss of consciousness, initial encounter (HCC) (S02.19XA) Closed fracture of temporal bone, initial encounter (HCC) (S22.32XA) Closed fracture of one rib of left side, initial encounter (E44.1) Malnutrition of mild degree ([facility]) (F10.231) DTs (delirium tremens) ([facility]) (I60.9) SAH (subarachnoid hemorrhage) ([facility]) (R47.01) Aphasia (F31.9) Bipolar affective disorder, remission status unspecified ([facility]) (J96.02) Acute respiratory failure with hypercapnia ([facility]) Management included sedation, pain control and ventilation assessment including need for ventilator, weaning and/or extubation as indicated. Management of critical care illnesses are edited above by me, including system by system plan and are not only limited to infectious disease and tailoring the antibiotic therapy, nutrition assessment and supplementation, electrolyte correction and prevention of ICU related complications using ventilator bundle, sedation holiday and assessment and removal of lines and tubes where indicated. SIGNATURE: Lakesha Wilkes MD PATIENT NAME: Rhoda Poon DATE: June 07, 2019 TIME: 1:02 PM Normal [facility] Phosphorus Bloodon 9 Phosphate [Mass/Vol] 3.2 mg/dL Normal 2.5-4.9 [facility] Comment on above: Performed By: #### A MY #### [facility] [address] [place] [address] XR CHEST 1V FRONTALon 2018 XR CHEST 1V FRONTAL * * *Final Report* * * DATE OF EXAM: Jun 07 2019 9:29AM [id number] - XR CHEST 1V FRONTAL / PROCEDURE REASON: Evaluate tube, line or lead position * * * * Physician Interpretation * * * * EXAMINATION: CHEST RADIOGRAPH (SINGLE VIEW AP OR PA) CLINICAL HISTORY: Evaluate tube, line or lead position MQ: XC1_5 Comparison: X-ray examination performed earlier today. RESULT: Lines, tubes, and devices: Examination limited due to overlying EKG leads. Interval insertion of endotracheal tube, tube tip approximately 4.2 cm above the aebl. Interval insertion of nasogastric tube. The side port is below the esophagogastric junction and tip overlies the anticipated region of the gastric fundus. Little interval change regarding feeding tube, overlying the mid aspect of the course the esophagus and stomach, tip not included on examination. Lungs and pleura: Low lung volumes, likely related to poor inspiratory result. Likely small left pleural effusion with associated left basilar atelectasis versus consolidation. Mild elevation the right hemidiaphragm. Faint mixed interstitial and airspace opacities overlying the right lower lung zone. No discrete pneumothorax. Pulmonary vascularity within normal limits. Cardiomediastinal silhouette: Normal cardiomediastinal silhouette. Other: Osseous structures and soft tissues grossly intact. IMPRESSION: Interval insertion of nasogastric and endotracheal tubes, as described. Likely small left pleural effusion with associated left basilar atelectasis versus consolidation. Little interval change regarding faint mixed interstitial and airspace opacities overlying the right lower lung zone, possibly due to atelectasis or consolidation. 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 Date/Time: Jun 07 2019 9:59A Dictated by : JOSELUIS MOISE MD This examination was interpreted and the report reviewed and electronically signed by: JOSELUIS MOISE MD on Jun 07 2019 10:07AM EST Normal [facility] XR CHEST 1V FRONTAL * * *Final Report* * * DATE OF EXAM: Jun 07 2019 8:15AM [id number] - XR CHEST 1V FRONTAL / PROCEDURE REASON: Shortness of breath * * * * Physician Interpretation * * * * EXAMINATION: CHEST RADIOGRAPH (SINGLE VIEW AP OR PA) CLINICAL HISTORY: Shortness of breath MQ: XC1_5 Comparison: 06/06/2019 RESULT: Lines, tubes, and devices: Examination limited due to overlying EKG leads. Little interval change regarding feeding tube, overlying the anticipated course the esophagus and proximal stomach, tip not included on examination. Lungs and pleura: Low lung volumes, likely related to poor inspiratory result. Left basilar atelectasis versus consolidation. Faint mixed interstitial and airspace opacities overlying the right lower lung zone, unchanged. No discrete effusion or pneumothorax. Pulmonary vascularity within normal limits. Cardiomediastinal silhouette: Unchanged Other: Osseous structures and soft tissues grossly intact. IMPRESSION: Left basilar atelectasis versus consolidation as well as faint mixed interstitial and airspace opacities involving the right lower lung zone, possibly due to atelectasis or consolidation, essentially unchanged. No significant interval change regarding visualized portions of the indwelling enteric tube. 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 Date/Time: Jun 07 2019 8:58A Dictated by : JOSELUIS MOISE MD This examination was interpreted and the report reviewed and electronically signed by: JOSELUIS MOISE MD on Jun 07 2019 8:59AM EST Normal [facility] Basic Panelon 06-06-2019 Creatinine [Mass/Vol] 0.42 mg/dL Low 0.67-1.17 [facility] Comment on above: Performed By: #### L IP #### [facility] [address] [place], [place] [address] Anion gap [Moles/Vol] 10 mmol/L Normal 8-16 [facility] Comment on above: Performed By: #### L IP #### [facility] [address] [place], [place] [address] CO2 [Moles/Vol] 29 mmol/L Normal 21-32 [facility] Comment on above: Performed By: #### L IP #### [facility] [address] [place], [place] [address] Glucose [Mass/Vol] 146 mg/dL High 70-99 [facility] Comment on above: Performed By: #### L IP #### [facility] [address] [place], [place] [address] Urea nitrogen [Mass/Vol] 8 mg/dL Normal 7-18 [facility] Comment on above: Performed By: #### L IP #### [facility] [address] [place], [place] [address] Calcium [Mass/Vol] 8.3 mg/dL Low 8.5-10.1 [facility] Comment on above: Performed By: #### L IP #### [facility] [address] [place], [place] [address] Chloride [Moles/Vol] 96 mmol/L Low 98-107 [facility] Comment on above: Performed By: #### L IP #### [facility] [address] [place], [place] [address] Potassium [Moles/Vol] 3.9 mmol/L Normal 3.5-5.1 [facility] Comment on above: Performed By: #### L IP #### [facility] [address] [place], [place] [address] Sodium [Moles/Vol] 131 mmol/L Low 136-145 [facility] Comment on above: Performed By: #### L IP #### [place] [address] CASE MANAGEMon 06-06-2019 CASE MANAGEM HNO ID: [id number] Author: Humaira (Rn) GILBERTO Rainey Service: Care Management Author Type: Registered Nurse Type: Care Mgt Progress Note Filed: 06/06/2019 11:03 AM Note Text: CARE MANAGEMENT PROGRESS NOTE SERVICE DATE: 06/06/2019 SERVICE TIME: 11:00 AM LOS: 5 days Needs Prior to Discharge: To Be Determined Patient still in CIWA protocol, less Ativan use. Has corpak. Noted neurosurgery progress stating plan for repeat CTH. Patient lives alone, no payer. CM will continue to follow clinical outcome. SIGNATURE: Humaira Rainey RN PATIENT NAME: Rhoda Poon DATE: June 06, 2019 TIME: 11:00 AM PAGER/CONTACT #: [phone] [facility] CONSULT PROGon 06-06-2019 CONSULT PROG HNO ID: [id number] Author: Shama Mathew (Research Physiologist) Service: Pharmacy Author Type: Pharmacist Type: Consult Progress Note Filed: 06/06/2019 2:09 PM Note Text: PHARMACY VANCOMYCIN DOSING NOTE Patient Name: Rhoda Poon Admission Date: 06/01/2019 Date of Consult: 06/06/2019 Time of Consult: 2:09 PM Indication: Pneumonia Goal Range: 10-20 mcg/mL RECOMMENDATIONS/PLAN: Pharmacy consulted for vancomycin dosing for Rhoda Poon, a 49 year old, male who is being treated with vancomycin for possible pneumonia, MRSA nares negative 1. The primary service has discontinued vancomycin therapy. Pharmacy vancomycin dosing service will sign off. Thank you for allowing us to participate in this patient's care. Please contact pharmacy if questions. [facility] CONSULT PROG HNO ID: [id number] Author: Lakesha Wilkes Service: Critical Care Author Type: Physician Type: Consult Progress Note Filed: 06/06/2019 1:05 PM Note Text: INPATIENT SICU PROGRESS NOTE SICU Service Pager: For questions or concerns Mon-Fri 6a-5p please page [phone]. After 5pm and on Weekends and Holidays, please page [phone]. SERVICE DATE: 06/06/2019 Subjective Subjective: This is a 49 year old male who is less agitated. Only got 12 mg of ativan and two doses of prn haldol. He was febrile over night and has had increasing leukocytosis over the last several days. Started on broad-spectrum antibiotics over night. Difficulties with urinary retention as well necessitating straight catheterization. No change in neurologic status. Will follow conversations though. Report that he has been having more secretions and coughing. Current Facility-Administered Medications Medication Dose Route Frequency - potassium chloride ER 20-40 mEq tab(s) (K-DUR, KLOR-CON) 20-40 mEq ORAL/FEEDING TUBE PRN Or - potassium chloride iv piggyback 20 mEq/100 mL 20 mEq INTRAVENOUS PRN - magnesium sulfate in water 2 g in sterile water 50 ml 2 g INTRAVENOUS PRN - sodium phosphate 45 mmol in NaCl 0.9% 250 mL 45 mmol INTRAVENOUS PRN - calcium gluconate 4 g in NaCl 0.9% 250 mL 4 g INTRAVENOUS PRN - NaCl 0.9% 3-5 mL 3-5 mL INTRAVENOUS q 12 H - lidocaine 5 % 1 Patch (LIDODERM) 1 Patch TRANSDERMAL DAILY AT 9 PM And - lidocaine patch - REMOVE OTHER DAILY And - lidocaine - VERIFY PATCH OTHER q 8 H - thiamine 100 mg tab(s) (VITAMIN B1) 100 mg ORAL TID - dexmedetomidine 400 mcg in NaCl 0.9% 100 mL (PRECEDEX) 0.2-1 mcg/kg/hr INTRAVENOUS CONTINUOUS - ipratropium-albuterol 3 mL nebulizer solution (DUONEB) 3 mL INHALATION q 6 H PRN - haloperidol lactate 5 mg injection (HALDOL) 5 mg INTRAVENOUS q 6 H PRN - oxyCODONE 5-10 mg oral liquid (ROXICODONE) 5-10 mg ORAL q 4 H PRN - morphine 2 mg injection 2 mg INTRAVENOUS q 2 H PRN - LORazepam 2 mg (ATIVAN) 2 mg ORAL q 1 H PRN Or - LORazepam 2 mg injection (ATIVAN) 2 mg INTRAVENOUS q 1 H PRN - LORazepam 4 mg (ATIVAN) 4 mg ORAL q 1 H PRN Or - LORazepam 4 mg injection (ATIVAN) 4 mg INTRAVENOUS q 1 H PRN - enoxaparin 30 mg injection (LOVENOX) 30 mg SUBCUTANEOUS BID - levETIRAcetam 1,000 mg oral liquid (KEPPRA) 1,000 mg ORAL BID - metoprolol tartrate (short acting) 25 mg tab(s) (LOPRESSOR) 25 mg ORAL q 12 H - metoprolol 5 mg injection (LOPRESSOR) 5 mg INTRAVENOUS q 6 H PRN - senna-docusate 8.6-50 mg 1 tablet (SENNA-S) 1 tablet ORAL BID - QUEtiapine (SEROquel) tab(s) 75 mg 75 mg ORAL BID - acetaminophen 975 mg tab(s) (TYLENOL) 975 mg ORAL q 6 H PRN - vancomycin iv piggyback 1 g in D5W 200 mL (VANCOCIN) 1 g INTRAVENOUS q 12 HR - vancomycin dosing and monitoring per pharmacy OTHER As Directed - piperacillin-tazobactam iv piggyback 3.375 g in dextrose (iso-osmotic) 50 mL (ZOSYN) 3.375 g INTRAVENOUS q 6 H - levoFLOXacin iv piggyback 500 mg in D5W 100 mL (LEVAQUIN) 500 mg INTRAVENOUS DAILY Objective VITAL SIGNS BP 128/70 Pulse 104 Temp (Src) 100.6 (Temporal) Resp 26 Ht 5' 7.992 (1.73m) Wt 153 lb 14.1 oz (69.8kg) SpO2 95% BMI 23.40 kg/(m2). O2 Therapy: Hi-Flow, Liters: 9 Temp (24hrs), Av.9 ?C (100.2 ?F), Min:37 ?C (98.6 ?F), Max:38.7 ?C (101.7 ?F) Date 06/05/19699 - 06/06/1965806/06/19 07 - 06/07/19 0659 Shift 4341-3169 8344-2618 3188-2144 24 Hour Total 4706-8563 6798-4857 1560-8227 24 Hour Total INTAKE IV 768.5 768.5 Morphine Volume 0.5 0.5 Haldol IV 1 1 Calcium IVPB 250 250 Dexmedetomidine IV 266 266 LORazepam Volume 1 1 Potassium Phosphate 250 250 Irrigants 60 60 Irrigant/Flush Amount In (GI Feed 06/02/19 1446 Gastric Right Naris 12 Fr) 60 60 Gastric Tube 300 200 500 Tube Feed Intake (I/O) (GI Feed 06/02/19 1446 Gastric Right Naris 12 Fr) 300 200 500 Shift Total 300 1028.5 1328.5 OUTPUT Urine 460 435 895 Void (ml) 160 160 Straight cath (ml) 300 275 575 Urine Incontinence/Not Saved 1 x 1 x 1 x 3 x Output ( External Collection Device 06/04/191999) 160 160 Shift Total 460 435 895 Weight (kg) 69.8 69.8 69.8 69.8 69.8 69.8 69.8 69.8 PHYSICAL EXAM: GENERAL: snoring, sedated HEENT: normocephalic, atraumatic, EOMI NECK: Trachea midline, no JVD SKIN: Skin color, texture, turgor normal. No rashes or lesions. LUNGS: unlabored breathing, equal chest rise bilaterally on O2 Therapy: Hi-Flow Liters: 9 sating at SpO2: 95 % CARDIAC: Regular rate and rhythm as above, ABDOMEN: soft, Non-distended EXTREMITIES: ROM of all joint grossly normal: strength grossly normal bilaterally. No deformities noted. NEURO: unable to assess this am PSYCH: unable to assess DATA: Diagnostic tests reviewed for today's visit: No results for input(s): BODSITE, CTYPE, PH, PCO2, PO2, BE, HCO3, CO2CT, O2HB, COHB, MHGB, TEMP, PHTC, PCO2T, PO2T, O2AD in the last 72 hours. Recent Labs 06/06/19 0410 06/06/19 0155 06/05/19 1130 06/05/19 0335 06/04/19 0225 CREAT 0.42* -- 0.44* 0.47* 0.38* BUN 8 -- 6* 8 6* NA 131* -- 131* 133* 134* K 3.9 -- 4.5 3.3* 3.7 CHLOR 96* -- 94* 98 100 CO2 29 -- 27 28 27 ANION 10 -- 15 10 11 GLUC 146* -- 115* 110* 93 CA 8.3* -- 8.3* 8.2* 8.5 P 3.2 -- -- 2.6 2.4* MG 1.9 -- -- 1.7 2.1 WBC 17.93* -- -- 16.11* 14.90* HB 14.0 -- -- 14.3 14.6 HCT 41.5 -- -- 43.8 43.1 PLT 287 -- -- 231 156 LACT -- 0.8 -- -- -- Assessment/Plan This is a 49 year old male with?below injuries and delirium tremens, using less ativan, continuing leukocytosis and fever ? 1. Left posterolateral fifth rib fracture with adjacent lung contusions 2. Additional lung contusions vs infectious/inflammatory changes 3. There is an acute left occipital parietal temporal subdural hematoma estimated to measure approximately 5 mm maximal thickness. ?Small associated foci of internal gas. ?There is mild extension of subdural hemorrhage along the left tentorial leaflet.?Rightward midline shift of 2mm. 4. Nondisplaced obliquely oriented overlying calvarial fracture 5. Subarachnoid hemorrhage ? Neuro: - Pain Control:?tylenol, oxycodone, morphine prn - Sedation:?precedex,?ser oquel BID,?ativan prn - Seizure ppx:?keppra - DTs around day 3-4. -?Q1 neuro checks -C-spine precautions -CIWA for drinking history - NSX signed off, no neurosurgical intervention -On precedex. Wean as possible CV: - tele - EKG if arrythmia - Monitor HR and BP on precedex Resp: - on O2 Therapy: Hi-Flow -CXR yesterday and today concerning for possible pneumonia. Likely aspiration pneumonia. On abx. Obtain sputum cultures if possible. GI: - DIET TUBE FEED - CONTIN (NO TRAY) - Bowel Regimen: Senna-S and miralax - GI ppx: none - Nausea control: zofran Renal: - external catheter, may need a zhang given retention and need for straight catheterization - Strict I/Os - replete lytes prn, keep Mag >2, K >3.5, iCa >4.2 Phos >2.5 - Sodium low but does not appear to be SIADH or cerebral salt wasting. Urine sodium normal. Serum osmolality slightly low. Creatinine Date Value Ref Range Status 06/06/2019 0.42 (L) 0.67 - 1.17 mg/dL Final 06/05/2019 0.44 (L) 0.67 - 1.17 mg/dL Final 06/05/2019 0.47 (L) 0.67 - 1.17 mg/dL Final 06/04/2019 0.38 (L) 0.67 - 1.17 mg/dL Final Intake/Output Summary (Last 24 hours) at 06/05/2019 0659 Last data filed at 06/05/2019 0600 Gross per 24 hour Intake 1880 ml Output 1100 ml Net 780 ml Heme: Hemoglobin Date Value Ref Range Status 10/26/2017 15.2 13.5 - 17.5 g/dL Final HGB Date Value Ref Range Status 06/06/2019 14.0 13.7 - 17.5 g/dL Final - Daily CBCs - Transfuse Hb <7 Endo: - Glucose Date Value Ref Range Status 06/06/2019 146 (H) 70 - 99 mg/dL Final - Daily BMPs ID: - WBC Date Value Ref Range Status 06/06/2019 17.93 (H) 4.23 - 9.07 thou/cmm Final - Daily CBCs - Observe for signs of infection: redness, warmth, increased swelling and pain with joint movement, fever, chills, sweats, etc. - Cultures: - MRSA (-) - BCx (p) - RCx (p) -Started on vancomycin, levoquin, and zosyn. Follow for culture results. Deescalate as possible. -Persistent leukocytosis- follow. Ext: - DVT ppx: SCDs, LVX - Mobility order: bedrest. - Restraints: Yes Lines: Peripheral 06/03/19 2226 Assessment Short Right Antecubital 20 Gauge (Active) Peripheral 06/04/19 2030 Short Left Antecubital 20 Gauge (Active) GI Feed 06/02/19 1446 Gastric Right Naris 12 Fr (Active) External Collection Device 06/04/191999 (Active) ] Consults: trauma, SICU, NSX (s/o) Dispo: - NSICU Patient Checklist Deep vein thrombosis prophylaxis administered? Yes. Stress ulcer prophylaxis? No, not indicated.. Pain addressed? Yes. Nutrition: Enteral- Yes. TPN- No. PO- No. Restraints? Yes. Dispo needs assessed? Yes. SIGNATURE: Henok Kwong DO PATIENT NAME: Rhoda Poon DATE: June 06, 2019 TIME: 6:21 AM PAGER: below SICU Service Pager: For questions or concerns Mon-Sun 6a-5p please page [phone]. After 5pm and on Weekends and Holidays, please page [phone]. As above Remains in DTs Receiving Ativan, Seroquel On Precedex drip at [address] of head shows evolution of bleeds with minimal midline shift Non-surgical Plan: Dec CIWA dose of Ativan Preceexd drip wean Add clonidine Melatonin to help sleep at night TF Zosyn for aspirationpneumonia I provided 35 minutes of critical care services which were necessary due to above specified injuries and illnesses. This patient has a high probability of sudden, clinical significant deterioration, which required the highest level of care and preparedness to intervene urgently. I managed and supervised life or organ supporting interventions that require frequent assessments. This time does not include time devoted to teaching and to any procedure I billed separately. I have personally seen and examined this patient and participated in the rojas components of this encounter with the multi-disciplinary ICU team. I discussed the management of this case with the resident and reviewed/confirmed their documentation, attached or in separate note. I personally reviewed today's actual images, the associated image reports, and current labs. I supervised the ordering of additional testing, imaging, labs, and/or consultations. The patient and/or family were fully informed of the findings and plan of care. They had the opportunity to ask questions and raise any issues of concern, all of which were answered and dealt with by me to their stated satisfaction. The critical care treatment was mainly directed to address the following issues: (S06.5X9A) Subdural hematoma (HCC) (primary encounter diagnosis) (S02.0XXA) Closed fracture of vault of skull, initial encounter (HCC) (I60.9) Subarachnoid hemorrhage (HCC) (S06.359A) Traumatic left-sided intracerebral hemorrhage with loss of consciousness, initial encounter (HCC) (S02.19XA) Closed fracture of temporal bone, initial encounter (HCC) (S22.32XA) Closed fracture of one rib of left side, initial encounter (E44.1) Malnutrition of mild degree (HCC) Management included sedation, pain control and ventilation assessment including need for ventilator, weaning and/or extubation as indicated. Management of critical care illnesses are edited above by me, including system by system plan and are not only limited to infectious disease and tailoring the antibiotic therapy, nutrition assessment and supplementation, electrolyte correction and prevention of ICU related complications using ventilator bundle, sedation holiday and assessment and removal of lines and tubes where indicated. SIGNATURE: Lakesha Wilkes MD PATIENT NAME: Rhoda Poon DATE: June 06, 2019 TIME: 1:02 PM [facility] CONSULT PROG HNO ID: [id number] Author: Natalia Trujillo (Pharmacist) Service: Pharmacy Author Type: Pharmacist Type: Consult Progress Note Filed: 06/06/2019 3:33 AM Note Text: PHARMACY VANCOMYCIN DOSING NOTE Patient Name: Rhoda Poon Admission Date: 06/01/2019 Date of Consult: 06/06/2019 Time of Consult: 3:31 AM Indication: Pneumonia Goal Range: 10-20 mcg/mL RECOMMENDATIONS/PLAN: Pharmacy consulted for vancomycin dosing for Rhoda Poon, a 49 year old, male who is being treated with vancomycin for pneumonia 1. Patient is currently ordered Vancomycin 1 g IV q12h. Today is day 1 of therapy. 2. No vancomycin level has been drawn for this dosing regimen. 3. The present dose of vancomycin is the recommended dosage for this patient at this time. Continue therapy as prescribed. 4. The next vancomycin level will be ordered for prior to 5th dose unless clinically indicated sooner. (Pharmacy will order) We will follow patient renal function, vancomycin levels and doses with you during the course of therapy. Additional recommendations will appear in follow up notes. If [place] have [place] [phone]. Age: [age] year old Allergies: ALLERGIES Allergen Reactions - Amoxicillin Other: See Comments Fever blisters - Morphine Mental Status Change Patient's contact reports nightmares - Vicodin [Hydrocodon* Mental Status Change States has bad nightmares Last 3 Encounter Wt Readings: Date: Wt: 06/01/2019 69.8 kg (153 lb 14.1 oz) 01/30/2018 89.4 kg (197 lb) 01/04/2018 83 kg (183 lb) Last 1 Encounter Ht Readings: Date: Ht: 06/01/2019 172.7 cm (5' 7.99) CrCl: 198.6 mL/min Temp (24hrs), Av.8 ?C (100.1 ?F), Min:37 ?C (98.6 ?F), Max:38.7 ?C (101.7 ?F) - Current Temp: (!) 38.1 ?C (100.6 ?F) Labs BUN (mg/dL) Date Value 06/05/2019 6 (L) 06/05/2019 8 06/04/2019 6 (L) Creatinine (mg/dL) Date Value 06/05/2019 0.44 (L) 06/05/2019 0.47 (L) 06/04/2019 0.38 (L) WBC (thou/cmm) Date Value 06/05/2019 16.11 (H) 06/04/2019 14.90 (H) 06/03/2019 12.87 (H) Vancomycin Levels: No results found for: KANDI TRUJILLO, PHARMACIST Normal [facility] CT BRAIN WO IVCONon 06-06-[address] BRAIN WO IVCON * * *Final Report* * * DATE OF EXAM: Jun 06 2019 9:54AM [facility] 0504 - CT BRAIN WO IVCON / PROCEDURE REASON: Intracranial hemorrhage * * * * Physician Interpretation * * * * BRAIN CT WITHOUT CONTRAST ENHANCEMENT Serial transverse images of the brain were obtained without contrast material. The study was performed to evaluate traumatic injury. CT Dose-Length Product (DLP): 853 mGy*cm CT Dose Reduction Employed: mAs or kVp was manually adjusted based on either the patient size or age Serial images demonstrate the presence of hemorrhagic contusion within the left temporal lobe with the dominant donna hematoma measuring approximately 3-4 cm in maximal diameter. Acute subdural hemorrhage is identified within the left parietal-occipital convexity region as well as within the interhemispheric fissure and along the tentorium bilaterally measuring several millimeters in maximal thickness. Bifrontal subdural hygromas demonstrating a maximal thickness of approximately 6-8 mm. Acute subarachnoid hemorrhage is identified predominantly within cortical subarachnoid spaces. Acute hemorrhage is also noted within the dependent portions of the lateral ventricles. The overall size of the ventricular system remains within normal limits. Shift of midline structures from the left to the right is limited to several millimeters. Images obtained for bone detail redemonstrate the presence of a longitudinal fracture involving the left petrous pyramid. There is subtotal opacification of the middle ear cavity, mastoid antrum, mastoid air cells, and external auditory canal on the left. IMPRESSION: Evolving acute contusional hemorrhage, subdural hemorrhage, subarachnoid hemorrhage, and intraventricular hemorrhage as described above in conjunction with bifrontal subdural hygromas. Compared to the previous study from 06/02/19, there has been the interval development of minimal left to right midline shift. 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 Date/Time: Jun 06 2019 10:08A Dictated by : FANTA HEART MD This examination was interpreted and the report reviewed and electronically signed by: FANTA HEART MD on Jun 06 2019 10:42AM EST Normal [facility] Cult Bloodon 06-06-2019 Cult Blood Test performed at [facility] No growth Normal [facility] Comment on above: Performed By: #### A MY #### [place] [address] Cult and Smr Respiratoryon 1 Cult and Smr Respiratory Test performed at [facility] Rare normal oropharyngeal scotty present Many Gram positive cocci in clusters Few Gram negative bacilli Few Mixed scotty Moderate Polymorphonuclear leukocytes Moderate Squamous epithelial cells Moderate ORGANISM: *Pseudomonas aeruginosa (ID: 1) Few ORGANISM: *Staphylococcus aureus (ID: 2) Many Oxacillin-susceptible staphylococci are susceptible to other penicillinase-stable penicillins, beta-lactam/beta-lactam ase inhibitor combinations, anti-staphylococcal cephems and carbapenems. ORGANISM: *Enterobacter cloacae (ID: 3) Few Enterobacter, Citrobacter, Serratia and Klebsiella (Enterobacter) aerogenes may develop resistance during prolonged therapy with 3rd-generation cephalosporins as a result of derepression of AmpC beta-lactamase. Therefore, isolates that are initially susceptible may become resistant within 3 or 4 days after initiation of therapy. Testing repeat isolates may be warranted. Normal [facility] Comment on above: Performed By: #### L IP #### [place] [address] Hemogram/Diffon 06-06-2019 Abs Immature Grans 0.20 thou/cmm High 0.00-0.05 [facility] Comment on above: Performed By: #### P 14 #### [place] [address] Abs Neut (ANC) 13.57 thou/cmm High 1.78-5.38 [facility] Comment on above: Performed By: #### P 14 #### [address] [place] [address] Abs. Baso 0.14 thou/cmm High 0.01-0.08 [facility] Comment on above: Result Comment: Smea r scanned; tech agrees with automated differential Performed By: #### P 14 #### [facility] [address] [place], [place] [address] Abs. [place] 2.94 thou/cmm High 0.30-0.82 [facility] Comment on above: Performed By: #### P 14 #### [facility] [address] [place], [place] [address] Basophils/100 WBC (Bld) 0.8 % Normal [facility] Comment on above: Performed By: #### P 14 #### [facility] [address] [place], [place] [address] Eosinophils (Bld) [#/Vol] 0.07 thou/cmm Normal 0.04-0.54 [facility] Comment on above: Performed By: #### P 14 #### [facility] [address] [place], [place] [address] Eosinophils/100 WBC (Bld) 0.4 % Normal [facility] Comment on above: Performed By: #### P 14 #### [facility] [address] [place], [place] [address] Immature Grans 1.10 % Normal [facility] Comment on above: Performed By: #### P 14 #### [address] [address] Lymphocytes (Bld) [#/Vol] 1.00 thou/cmm Normal 0.84-2.85 [facility] Comment on above: Performed By: #### P 14 #### [facility] [address] [place], [place] [address] Lymphocytes/100 WBC (Bld) 5.6 % Normal [facility] Comment on above: Performed By: #### P 14 #### [facility] [address] [place], [place] [address] Monocytes/100 WBC (Bld) 16.4 % Normal [facility] Comment on above: Performed By: #### P 14 #### [facility] [address] [place] [address] Seg Neutrophil 75.7 % Normal [facility] Comment on above: Performed By: #### P 14 #### [facility] [address] [place] [address] Erythrocyte distribution width (RBC) [Ratio] 13.6 % Normal 11.6-14.4 [facility] Comment on above: Performed By: #### P 14 #### [facility] [address] [place] [address] Hematocrit (Bld) [Volume fraction] 41.5 % Normal 40.1-51.0 [facility] Comment on above: Performed By: #### P 14 #### [facility] [address] [place] [address] Hemoglobin (Bld) [Mass/Vol] 14.0 g/dL Normal 13.7-17.5 [facility] Comment on above: Performed By: #### P 14 #### [facility] [address] [place] [address] MCH (RBC) [Entitic mass] 33.0 pg High 25.7-32.2 [facility] Comment on above: Performed By: #### P 14 #### [facility] [address] [place] [address] MCHC (RBC) [Mass/Vol] 33.7 % Normal 32.3-36.5 [facility] Comment on above: Performed By: #### P 14 #### [facility] [address] [place] [address] MCV (RBC) [Entitic vol] 97.9 fL High 83.2-95.6 [facility] Comment on above: Performed By: #### P 14 #### [facility] [address] [place] [address] Platelet mean volume (Bld) [Entitic vol] 8.6 fL Low 8.7-12.0 [facility] Comment on above: Performed By: #### P 14 #### [facility] [address] [place] [address] Platelets (Bld) [#/Vol] 287 thou/cmm Normal 141-365 [facility] Comment on above: Performed By: #### P 14 #### [facility] [address] [place], [place] [address] RBC (Bld) [#/Vol] 4.24 mil/cmm Low 4.63-6.08 [facility] Comment on above: Performed By: #### P 14 #### [facility] [address] [place], [place] [address] RDW SD 49.1 fl High 36.1-45.8 [facility] Comment on above: Performed By: #### P 14 #### [facility] [address] [place], [place] [address] WBC (Bld) [#/Vol] 17.93 thou/cmm High 4.23-9.07 [facility] Comment on above: Performed By: #### P 14 #### [facility] [address] [place] [address] Ionized Calciumon 06-06-2019 Ionized Ca,PH7.4 4.41 mg/dL Low 4.61-5.17 [facility] Comment on above: Performed By: #### L IP #### [facility] [address] [place] [address] pH (Bld) 7.367 [pH] Normal 7.320-7.430 [facility] Comment on above: Performed By: #### L IP #### [facility] [address] [place] [address] Ionized Calcium 4.48 mg/dL Low 4.61-5.17 [facility] Comment on above: Performed By: #### L IP #### [facility] [address] [place], [place] [address] Lactic Acidon 06-06-2019 Lactate [Moles/Vol] 0.8 mmol/L Normal 0.4-2.0 [facility] Comment on above: Performed By: #### P 14 #### [facility] [address] [place], [place] [address] Magnesium Bloodon 06-06-2019 Magnesium [Mass/Vol] 1.9 mg/dL Normal 1.6-2.6 [facility] Comment on above: Performed By: #### L IP #### [facility] [address] [place] [address] NURSING PROGon 06-06-2019 NURSING PROG HNO ID: [id number] Author: Kala (Rn) GILBERTO Castorena Service: ? Author Type: Registered Nurse Type: Nursing Progress Note Filed: 06/07/2019 1:06 AM Note Text: Nursing Progress: Topic: RESTRAINT NON-VIOLENT PATIENT NAME: Rhoda Poon PATIENT LOCATION: [place] [address]/[place] [address] 0* The patient demonstrates Attempting to Remove Medical Devices Vital to Medical Stability, Confusion, Lack of Understanding/Ability to Comply with Safety Directions, Impulsive Behavior, Inability to be Redirected, Inability to Retain Information Regarding Safety Directions as evidenced by the following behaviors attempting to get OOB, pull at IVs which pose an imminent danger to self or others. The following interventions were attempted but were not effective in protecting the patient's safety: Alarms, Bed in Low/Locked Position, Call Light Within Reach, Medications Reviewed, Modify Environment, Modify Equipment, Frequent Observation, Pain/Discomfort Relief Next, a comprehensive assessment was performed and warranted placing the patient in Soft Bilateral Wrists, the least restrictive restraint needed to protect the patient's safety. Ongoing safety assessments and evaluation for earliest removal of restraints will be performed. DATE: June 07, 2019 TIME: 1:05 AM Kala Castorena RN Normal [facility] PROGRESSon 06-06-2019 PROGRESS HNO ID: [id number] Author: Ashley Denney) DESTINI Silver Service: Neurosurgery Author Type: Physician Electrolysis Needle Operator Type: Progress Notes Filed: 06/06/2019 12:04 PM Note Text: Neurosurgery Progress Note SERVICE DATE: 06/06/2019 SUBJECTIVE: Sedate now - febrile overnight - has had Ativan OBJECTIVE: Vitals: Temp (24hrs), Av.8 ?C (100.1 ?F), Min:37.1 ?C (98.8 ?F), Max:38.7 ?C (101.7 ?F) BP 149/75 Pulse 92 Temp 37.7 ?C (99.9 ?F) Resp 23 Ht 172.7 cm (5' 7.99) Wt 69.8 kg (153 lb 14.1 oz) SpO2 94% BMI 23.40 kg/m? O2 Therapy: Hi-Flow IANDO: Date 06/05/19 07 - 06/06/1958 06/06/19699 - 06/07/19 0659 Shift 5244-0887 3517-7598 6544-4513 24 Hour Total 9060-2280 0649-9622 9570-6779 24 Hour Total INTAKE IV 768.5 1448 2216.5 43 43 NS 0.9% 1017 1017 Vancomycin IV 200 200 Zosyn IV 100 100 Morphine Volume 0.5 0.5 Haldol IV 1 1 Calcium IVPB 250 250 Dexmedetomidine IV 266 131 397 43 43 LORazepam Volume 1 1 Potassium Phosphate 250 250 Irrigants 60 130 190 180 180 Irrigant/Flush Amount In (GI Feed 06/02/19 1446 Gastric Right Naris 12 Fr) 60 130 190 180 180 Gastric Tube 300 200 272 772 65 65 Tube Feed Intake (I/O) (GI Feed 06/02/19 1446 Gastric Right Naris 12 Fr) 300 200 272 772 65 65 Shift Total 300 1028.5 1850 3178.5 288 288 OUTPUT Urine 460 555 117 7582 200 200 Void (ml) 160 160 Straight cath (ml) 300 275 575 Urine Incontinence/Not Saved 1 x 1 x 2 x 4 x Output ( External Collection Device 06/04/191999) 160 500 660 200 200 # of BMs Number of BMs 0 x 0 x 0 x 0 x Shift Total 460 870 443 8873 200 200 Weight (kg) 69.8 69.8 69.8 69.8 69.8 69.8 69.8 69.8 MEDICATIONS Current Facility-Administered Medications Medication Dose Route Frequency - vancomycin iv piggyback 1 g in D5W 200 mL (VANCOCIN) 1 g INTRAVENOUS q 12 HR - vancomycin dosing and monitoring per pharmacy OTHER As Directed - polyethylene glycol 3350 17 g packet (MIRALAX, GLYCOLAX) 17 g ORAL DAILY - magnesium sulfate in sterile water 4 g iv piggyback 4 g INTRAVENOUS ONCE - piperacillin-tazobactam 4.5 g in D5W 100 mL MB+ (ZOSYN) 4.5 g INTRAVENOUS q 6 H - senna-docusate 8.6-50 mg 1 tablet (SENNA-S) 1 tablet ORAL BID - QUEtiapine (SEROquel) tab(s) 75 mg 75 mg ORAL BID - acetaminophen 975 mg tab(s) (TYLENOL) 975 mg ORAL q 6 H PRN - metoprolol tartrate (short acting) 25 mg tab(s) (LOPRESSOR) 25 mg ORAL q 12 H - metoprolol 5 mg injection (LOPRESSOR) 5 mg INTRAVENOUS q 6 H PRN - haloperidol lactate 5 mg injection (HALDOL) 5 mg INTRAVENOUS q 6 H PRN - oxyCODONE 5-10 mg oral liquid (ROXICODONE) 5-10 mg ORAL q 4 H PRN - morphine 2 mg injection 2 mg INTRAVENOUS q 2 H PRN - LORazepam 2 mg (ATIVAN) 2 mg ORAL q 1 H PRN Or - LORazepam 2 mg injection (ATIVAN) 2 mg INTRAVENOUS q 1 H PRN - LORazepam 4 mg (ATIVAN) 4 mg ORAL q 1 H PRN Or - LORazepam 4 mg injection (ATIVAN) 4 mg INTRAVENOUS q 1 H PRN - enoxaparin 30 mg injection (LOVENOX) 30 mg SUBCUTANEOUS BID - levETIRAcetam 1,000 mg oral liquid (KEPPRA) 1,000 mg ORAL BID - ipratropium-albuterol 3 mL nebulizer solution (DUONEB) 3 mL INHALATION q 6 H PRN - potassium chloride ER 20-40 mEq tab(s) (K-DUR, KLOR-CON) 20-40 mEq ORAL/FEEDING TUBE PRN Or - potassium chloride iv piggyback 20 mEq/100 mL 20 mEq INTRAVENOUS PRN - magnesium sulfate in water 2 g in sterile water 50 ml 2 g INTRAVENOUS PRN - sodium phosphate 45 mmol in NaCl 0.9% 250 mL 45 mmol INTRAVENOUS PRN - calcium gluconate 4 g in NaCl 0.9% 250 mL 4 g INTRAVENOUS PRN - NaCl 0.9% 3-5 mL 3-5 mL INTRAVENOUS q 12 H - lidocaine 5 % 1 Patch (LIDODERM) 1 Patch TRANSDERMAL DAILY AT 9 PM And - lidocaine patch - REMOVE OTHER DAILY And - lidocaine - VERIFY PATCH OTHER q 8 H - thiamine 100 mg tab(s) (VITAMIN B1) 100 mg ORAL TID - dexmedetomidine 400 mcg in NaCl 0.9% 100 mL (PRECEDEX) 0.2-1 mcg/kg/hr INTRAVENOUS CONTINUOUS Labs: Recent Labs 06/06/19 0410 06/06/19 0155 06/05/19 1130 06/05/19 0335 NA 131* -- 131* 133* K 3.9 -- 4.5 3.3* CHLOR 96* -- 94* 98 CO2 29 -- 27 28 BUN 8 -- 6* 8 CREAT 0.42* -- 0.44* 0.47* GLUC 146* -- 115* 110* ANION 10 -- 15 10 CA 8.3* -- 8.3* 8.2* MG 1.9 -- -- 1.7 P 3.2 -- -- 2.6 WBC 17.93* -- -- 16.11* HB 14.0 -- -- 14.3 HCT 41.5 -- -- 43.8 PLT 287 -- -- 231 LACT -- 0.8 -- -- Exam: GENERAL: No distress, Asleep, very calm currently NEURO: no commands; receptive aphasia HEENT: normocephalic, atraumatic, perrl LUNGS: Unlabored breathing ASSESSMENT AND PLAN: Active Hospital Problems Diagnosis Date Noted - Malnutrition of mild degree ([facility]) 06/05/2019 - DTs (delirium tremens) ([facility]) 06/02/2019 - SAH (subarachnoid hemorrhage) ([facility]) 06/02/2019 - Closed fracture of one rib of left side 06/02/2019 - Closed fracture of vault of skull ([facility]) 06/02/2019 - Aphasia 06/02/2019 - Subdural hematoma ([facility]) 06/01/2019 - Bipolar affective disorder ([facility]) 12/21/2012 Overview Note: Diagnosed in ~1989 49 year old male left temp IPH/SAH/SDH - neuro stable - calm now - repeat CTH reviewed - evolving ICH - continue nonsurgical mgt - will SO - f/u with Dr. Bennett in 2 wks SIGNATURE: DESTINI Lobo PATIENT NAME: Rhoda Poon DATE: June 06, 2019 TIME: 8:32 AM Pager: [phone] [facility] PROGRESS HNO ID: [id number] Author: Raudel Martínez MD Service: Trauma Author Type: Resident Type: Progress Notes Filed: 06/06/2019 6:46 AM Note Text: Attestation signed by Francis Joy at 06/06/2019 10:38 AM I saw and evaluated the patient. Discussed with the resident and agree with resident's findings and plan as documented in the resident's note. Patient last 24 hours with a fever and an increase in his white count. Chest x-ray today shows some changes in his left lobe. Concerned about possible aspiration pneumonia. We'll try and get cultures. Trauma Progress Note SERVICE DATE: 06/06/2019 Trauma Service Pager: For questions or concerns Mon-Fri 6a-5p please page [phone]. After 5pm and on Weekends and Holidays, please page [phone] if in ICU or [phone] if on RNF. SUBJECTIVE: Pt became febrile overnight and put on sepsis pathway. Does not respond to commands, no BM per nursing. OBJECTIVE: Vitals: Temp (24hrs), Av.8 ?C (100 ?F), Min:37 ?C (98.6 ?F), Max:38.7 ?C (101.7 ?F) BP 107/66 Pulse 90 Temp 37.7 ?C (99.9 ?F) Resp 25 Ht 172.7 cm (5' 7.99) Wt 69.8 kg (153 lb 14.1 oz) SpO2 94% BMI 23.40 kg/m? O2 Therapy: Hi-Flow IANDO: Date 06/05/19699 - 06/06/1965806/06/19699 - 06/07/19 0659 Shift 6427-1564 2624-1557 6831-0490 24 Hour Total 2474-8110 1820-3632 6468-6974 24 Hour Total INTAKE IV 768.5 1448 2216.5 NS 0.9% 1017 1017 Vancomycin IV 200 200 Zosyn IV 100 100 Morphine Volume 0.5 0.5 Haldol IV 1 1 Calcium IVPB 250 250 Dexmedetomidine IV 266 131 397 LORazepam Volume 1 1 Potassium Phosphate 250 250 Irrigants 60 130 190 Irrigant/Flush Amount In (GI Feed 06/02/19 1446 Gastric Right Naris 12 Fr) 60 130 190 Gastric Tube 300 200 272 772 Tube Feed Intake (I/O) (GI Feed 06/02/19 1446 Gastric Right Naris 12 Fr) 300 200 272 772 Shift Total 300 1028.5 1850 3178.5 OUTPUT Urine 460 841 239 2813 Void (ml) 160 160 Straight cath (ml) 300 275 575 Urine Incontinence/Not Saved 1 x 1 x 2 x 4 x Output ( External Collection Device 06/04/191999) 160 500 660 # of BMs Number of BMs 0 x 0 x Shift Total 460 918 807 3748 Weight (kg) 69.8 69.8 69.8 69.8 69.8 69.8 69.8 69.8 MEDICATIONS Current Facility-Administered Medications Medication Dose Route Frequency - vancomycin iv piggyback 1 g in D5W 200 mL (VANCOCIN) 1 g INTRAVENOUS q 12 HR - vancomycin dosing and monitoring per pharmacy OTHER As Directed - piperacillin-tazobactam iv piggyback 3.375 g in dextrose (iso-osmotic) 50 mL (ZOSYN) 3.375 g INTRAVENOUS q 6 H - levoFLOXacin iv piggyback 500 mg in D5W 100 mL (LEVAQUIN) 500 mg INTRAVENOUS DAILY - polyethylene glycol 3350 17 g packet (MIRALAX, GLYCOLAX) 17 g ORAL DAILY - senna-docusate 8.6-50 mg 1 tablet (SENNA-S) 1 tablet ORAL BID - QUEtiapine (SEROquel) tab(s) 75 mg 75 mg ORAL BID - acetaminophen 975 mg tab(s) (TYLENOL) 975 mg ORAL q 6 H PRN - metoprolol tartrate (short acting) 25 mg tab(s) (LOPRESSOR) 25 mg ORAL q 12 H - metoprolol 5 mg injection (LOPRESSOR) 5 mg INTRAVENOUS q 6 H PRN - haloperidol lactate 5 mg injection (HALDOL) 5 mg INTRAVENOUS q 6 H PRN - oxyCODONE 5-10 mg oral liquid (ROXICODONE) 5-10 mg ORAL q 4 H PRN - morphine 2 mg injection 2 mg INTRAVENOUS q 2 H PRN - LORazepam 2 mg (ATIVAN) 2 mg ORAL q 1 H PRN Or - LORazepam 2 mg injection (ATIVAN) 2 mg INTRAVENOUS q 1 H PRN - LORazepam 4 mg (ATIVAN) 4 mg ORAL q 1 H PRN Or - LORazepam 4 mg injection (ATIVAN) 4 mg INTRAVENOUS q 1 H PRN - enoxaparin 30 mg injection (LOVENOX) 30 mg SUBCUTANEOUS BID - levETIRAcetam 1,000 mg oral liquid (KEPPRA) 1,000 mg ORAL BID - ipratropium-albuterol 3 mL nebulizer solution (DUONEB) 3 mL INHALATION q 6 H PRN - potassium chloride ER 20-40 mEq tab(s) (K-DUR, KLOR-CON) 20-40 mEq ORAL/FEEDING TUBE PRN Or - potassium chloride iv piggyback 20 mEq/100 mL 20 mEq INTRAVENOUS PRN - magnesium sulfate in water 2 g in sterile water 50 ml 2 g INTRAVENOUS PRN - sodium phosphate 45 mmol in NaCl 0.9% 250 mL 45 mmol INTRAVENOUS PRN - calcium gluconate 4 g in NaCl 0.9% 250 mL 4 g INTRAVENOUS PRN - NaCl 0.9% 3-5 mL 3-5 mL INTRAVENOUS q 12 H - lidocaine 5 % 1 Patch (LIDODERM) 1 Patch TRANSDERMAL DAILY AT 9 PM And - lidocaine patch - REMOVE OTHER DAILY And - lidocaine - VERIFY PATCH OTHER q 8 H - thiamine 100 mg tab(s) (VITAMIN B1) 100 mg ORAL TID - dexmedetomidine 400 mcg in NaCl 0.9% 100 mL (PRECEDEX) 0.2-1 mcg/kg/hr INTRAVENOUS CONTINUOUS Labs: Recent Labs 06/06/19 0410 06/06/19 0155 06/05/19 1130 06/05/19 0335 NA 131* -- 131* 133* K 3.9 -- 4.5 3.3* CHLOR 96* -- 94* 98 CO2 29 -- 27 28 BUN 8 -- 6* 8 CREAT 0.42* -- 0.44* 0.47* GLUC 146* -- 115* 110* ANION 10 -- 15 10 CA 8.3* -- 8.3* 8.2* MG 1.9 -- -- 1.7 P 3.2 -- -- 2.6 WBC 17.93* -- -- 16.11* HB 14.0 -- -- 14.3 HCT 41.5 -- -- 43.8 PLT 287 -- -- 231 LACT -- 0.8 -- -- PHYSICAL EXAM: Genl: No acute distress. Head/Face: Normocephalic. Atraumatic. Resp: Breathing is non-labored. CVS: RRR. GI: Abdomen is soft, non-tender, not distended. MSK: Extremities without clubbing, cyanosis, edema. restrained Skin: Warm and dry. Neuro: does not follow commands ASSESSMENT AND PLAN: Active Hospital Problems Diagnosis Date Noted - Malnutrition of mild degree ([facility]) 06/05/2019 - DTs (delirium tremens) ([facility]) 06/02/2019 - SAH (subarachnoid hemorrhage) ([facility]) 06/02/2019 - Closed fracture of one rib of left side 06/02/2019 - Closed fracture of vault of skull ([facility]) 06/02/2019 - Aphasia 06/02/2019 - Subdural hematoma ([facility]) 06/01/2019 - Bipolar affective disorder ([facility]) 12/21/2012 Overview Note: Diagnosed in ~1989 49 y/o male found down and brought to outside ED, transferred to [facility] for intracranial bleed.? ? Imaging performed: 1. CT head 2. CT neck 3. CT chest 4. CT abdomen/pelvis 5. PXR 6. CXR ? Traumatic Injuries: 1. Left posterolateral fifth rib fracture with adjacent lung contusions 2. Additional lung contusions vs infectious/inflammatory changes 3. There is an acute left occipital parietal temporal subdural hematoma estimated to measure approximately 5 mm maximal thickness. ?Small associated foci of internal gas. ?There is mild extension of subdural hemorrhage along the left tentorial leaflet.?Rightward midline shift of 2mm. 4. Nondisplaced obliquely oriented overlying calvarial fracture 5. Subarachnoid hemorrhage ? Operations:? 1. None ? Care Plan: 1. NPO/IVF 2. corpak 3. Vanc/zosyn/levaquin 4. resp and blood cultures pending 5. Keppra 6. NSX consult 1. Non-surgical mgmt 2. Signed off 06/04 7. Q1 neuro checks 8. Repeat head CT?is stable. 9. CIWA ? Prophylaxis: 1. DVT ppx: SCD,?hold chemoprophylaxis Incidentals: 1. None ? Consulted Services and Recommendations: 1. SICU 2. NSX 3. PT/OT -?(p) ? Dispo Plannin. NSICU ? Follow Up Needs: 1. TBD ? ? To be discussed with Dr. Joy Trauma Service Pager: For questions or concerns Mon-Sun 6a-5p please page [phone]. After 5pm and on Weekends and Holidays, please page [phone] if in ICU or [phone] if on RNF. SIGNATURE: Raudel Martínez MD PATIENT NAME: Rhoda Poon DATE: June 06, 2019 TIME: 6:36 AM Normal [facility] Phosphorus Bloodon 9 Phosphate [Mass/Vol] 3.2 mg/dL Normal 2.5-4.9 [facility] Comment on above: Performed By: #### L IP #### [facility] [address] [place] [address] XR CHEST 1V FRONTALon 2018 XR CHEST 1V FRONTAL * * *Final Report* * * DATE OF EXAM: Jun 06 2019 2:08AM AKX [id number] - XR CHEST 1V FRONTAL / PROCEDURE REASON: Acute respiratory illness * * * * Physician Interpretation * * * * EXAMINATION: CHEST RADIOGRAPH (SINGLE VIEW AP OR PA) CLINICAL HISTORY: Acute respiratory illness MQ: [id number] Comparison: 06/05/2019, 1116 hours IMPRESSION: Lines, tubes, and devices: Overlying EKG leads The feeding tube traverses the chest into the stomach. The tip of the feeding tube is not visualized on this exam; and therefore, its exact position cannot be determined Lungs and pleura: Limited inspiration. Groundglass density in the mid to lower portion left lung consistent with decreased lung volume and/or interstitial change. Early pneumonia cannot be excluded Minimal blunting of left costophrenic angle consistent with atelectasis and/or a very small left pleural effusion Cardiomediastinal silhouette: No abnormality identified. The trachea is midline 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 Date/Time: Jun 06 2019 2:11A Dictated by : CARTER TRUONG MD This examination was interpreted and the report reviewed and electronically signed by: CARTER TRUONG MD on Jun 06 2019 2:13AM EST Normal [facility] Basic Panelon 06-05-2019 Creatinine [Mass/Vol] 0.44 mg/dL Low 0.67-1.17 [facility] Comment on above: Performed By: #### P 14 #### [facility] [address] [place], [place] [address] Anion gap [Moles/Vol] 15 mmol/L Normal 8-16 [facility] Comment on above: Performed By: #### P 14 #### [facility] [address] [place], [place] [address] CO2 [Moles/Vol] 27 mmol/L Normal 21-32 [facility] Comment on above: Performed By: #### P 14 #### [facility] [address] [place], [place] [address] Glucose [Mass/Vol] 115 mg/dL High 70-99 [facility] Comment on above: Performed By: #### P 14 #### [facility] [address] [place], [place] [address] Urea nitrogen [Mass/Vol] 6 mg/dL Low 7-18 [facility] Comment on above: Performed By: #### P 14 #### [facility] [address] [place], [place] [address] Calcium [Mass/Vol] 8.3 mg/dL Low 8.5-10.1 [facility] Comment on above: Performed By: #### P 14 #### [facility] [address] [place], [place] [address] Chloride [Moles/Vol] 94 mmol/L Low 98-107 [facility] Comment on above: Performed By: #### P 14 #### [facility] [address] [place], [place] [address] Potassium [Moles/Vol] 4.5 mmol/L Normal 3.5-5.1 [facility] Comment on above: Performed By: #### P 14 #### [facility] [address] [place], [place] [address] Sodium [Moles/Vol] 131 mmol/L Low 136-145 [facility] Comment on above: Performed By: #### P 14 #### [facility] [address] [place], [place] [address] Creatinine [Mass/Vol] 0.47 mg/dL Low 0.67-1.17 [facility] Comment on above: Performed By: #### D RUG3 #### [facility] [address] [place], [place] [address] Anion gap [Moles/Vol] 10 mmol/L Normal 8-16 [facility] Comment on above: Performed By: #### D RUG3 #### [facility] [address] [place], [place] [address] Calcium [Mass/Vol] 8.2 mg/dL Low 8.5-10.1 [facility] Comment on above: Performed By: #### D RUG3 #### [facility] [address] [place], [place] [address] CO2 [Moles/Vol] 28 mmol/L Normal 21-32 [facility] Comment on above: Performed By: #### D RUG3 #### [facility] [address] [place], [place] [address] Glucose [Mass/Vol] 110 mg/dL High 70-99 [facility] Comment on above: Performed By: #### D RUG3 #### [facility] [address] [place], [place] [address] Urea nitrogen [Mass/Vol] 8 mg/dL Normal 7-18 [facility] Comment on above: Performed By: #### D RUG3 #### [facility] [address] [place], [place] [address] Chloride [Moles/Vol] 98 mmol/L Normal 98-107 [facility] Comment on above: Performed By: #### D RUG3 #### [facility] [address] [place], [place] [address] Potassium [Moles/Vol] 3.3 mmol/L Low 3.5-5.1 [facility] Comment on above: Performed By: #### D RUG3 #### [facility] [address] [place], [place] [address] Sodium [Moles/Vol] 133 mmol/L Low 136-145 [facility] Comment on above: Performed By: #### D RUG3 #### [facility] [address] [place] [address] CASE MANAGEMon 06-05-2019 CASE MANAGEM HNO ID: [id number] Author: Humaira (Rn) GILBERTO Rainey Service: Care Management Author Type: Registered Nurse Type: Care Mgt Progress Note Filed: 06/05/2019 1:47 PM Note Text: CARE MANAGEMENT PROGRESS NOTE SERVICE DATE: 06/05/2019 SERVICE TIME: 1:46 PM LOS: 4 days Needs Prior to Discharge: To Be Determined Patient remains in restraints, CIWA protocol. Will continue to follow for clinical outcome and transitional needs. SIGNATURE: Humaira Rainey RN PATIENT NAME: Rhoda Poon DATE: June 05, 2019 TIME: 1:46 PM PAGER/CONTACT #: [phone] Normal [facility] CONSULT PROGon 06-05-2019 CONSULT PROG HNO ID: [id number] Author: Lakesha Wilkes Service: Critical Care Author Type: Physician Type: Consult Progress Note Filed: 06/06/2019 1:07 PM Note Text: INPATIENT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 (DUONEB) 3 mL INHALATION q 6 H PRN - potassium chloride ER 20-40 mEq tab(s) (K-DUR, KLOR-CON) 20-40 mEq ORAL/FEEDING TUBE PRN Or - potassium chloride iv piggyback 20 mEq/100 mL 20 mEq INTRAVENOUS PRN - magnesium sulfate in water 2 g in sterile water 50 ml 2 g INTRAVENOUS PRN - sodium phosphate 45 mmol in NaCl 0.9% 250 mL 45 mmol INTRAVENOUS PRN - calcium gluconate 4 g in NaCl 0.9% 250 mL 4 g INTRAVENOUS PRN - NaCl 0.9% 3-5 mL 3-5 mL INTRAVENOUS q 12 H - lidocaine 5 % 1 Patch (LIDODERM) 1 Patch TRANSDERMAL DAILY AT 9 PM And - lidocaine patch - REMOVE OTHER DAILY And - lidocaine - VERIFY PATCH OTHER q 8 H - thiamine 100 mg tab(s) (VITAMIN B1) 100 mg ORAL TID - dexmedetomidine 400 mcg in NaCl 0.9% 100 mL (PRECEDEX) 0.2-1 mcg/kg/hr INTRAVENOUS CONTINUOUS Date 06/04/19 07 - 06/05/19 0659 06/05/19 07 - 06/06/19 0659 Shift 9372-5085 6311-8299 1738-9329 24 Hour Total 8297-7575 5325-8441 1682-1124 24 Hour Total INTAKE IV 189 84 320 593 Dexmedetomidine IV 189 84 320 593 Irrigants 100 130 230 Irrigant/Flush Amount In (GI Feed 06/02/19 1446 Gastric Right Naris 12 Fr) 100 130 230 Gastric Tube 349 413 618 6249 Tube Feed Intake (I/O) (GI Feed 06/02/19 1446 Gastric Right Naris 12 Fr) 349 447 220 6469 Shift Total 909 895 0219 1880 OUTPUT Urine 680 859 3039 Void (ml) 300 300 Amount Voided Before Bladder Scan 200 200 Urine Incontinence/Not Saved 4 x 3 x 7 x Output ( External Collection Device 06/04/19 2000) 600 600 # of BMs Number of BMs 0 x 0 x Shift Total 105 237 0871 Weight (kg) 79.7 79.7 79.7 79.7 69.8 69.8 69.8 69.8 MNT Billing Type: Initial Assess/15 min 2 units SIGNATURE: Rafaela Higginbotham RD PATIENT NAME: Rhoda Poon DATE: June 05, 2019 TIME: 11:37 AM PAGER: [phone] Normal [facility] Osmolality Serumon 9 Osmolality [Osmolality] 269 mOsm/kg Low 276-298 [facility] Comment on above: Performed By: #### P 14 #### [facility] 1 [place], [place] [address] Osmolality,Ur.on 06-05-2019 Osmolality (U) [Osmolality] 662 mOsm/kg Normal 250-1200 [facility] Comment on above: Performed By: #### P 14 #### [facility] 1 [place], [place] [address] PROGRESSon 06-05-2019 PROGRESS HNO ID: [id number] Author: Ashley Denney) DESTINI Silver Service: Neurosurgery Author Type: Physician Electrolysis Needle Operator Type: Progress Notes Filed: 06/05/2019 9:22 AM Note Text: Neurosurgery Progress Note SERVICE DATE: 06/05/2019 SUBJECTIVE: naeon - still very restless/agitated and with word salad OBJECTIVE: Vitals: Temp (24hrs), Av.6 ?C (97.8 ?F), Min:36 ?C (96.8 ?F), Max:37 ?C (98.6 ?F) BP 141/81 Pulse 106 Temp 37 ?C (98.6 ?F) Resp 26 Ht 172.7 cm (5' 7.99) Wt 69.8 kg (153 lb 14.1 oz) SpO2 94% BMI 23.40 kg/m? O2 Therapy: Nasal Cannula IANDO: Date 06/04/19 07 - 06/05/19 0659 06/05/19 07 - 06/06/19 0659 Shift 5182-1871 1336-5137 4711-6753 24 Hour Total 6706-1017 1935-1945 5325-0682 24 Hour Total INTAKE IV 189 84 320 593 Dexmedetomidine IV 189 84 320 593 Irrigants 100 130 230 Irrigant/Flush Amount In (GI Feed 06/02/19 1446 Gastric Right Naris 12 Fr) 100 130 230 Gastric Tube 349 872 894 0180 Tube Feed Intake (I/O) (GI Feed 06/02/19 1446 Gastric Right Naris 12 Fr) 349 397 597 4387 Shift Total 094 365 6138 1880 OUTPUT Urine 746 437 0586 Void (ml) 300 300 Amount Voided Before Bladder Scan 200 200 Urine Incontinence/Not Saved 4 x 3 x 7 x Output ( External Collection Device 06/04/191999) 600 600 # of BMs Number of BMs 0 x 0 x Shift Total 225 021 6992 Weight (kg) 79.7 79.7 79.7 79.7 69.8 69.8 69.8 69.8 MEDICATIONS Current Facility-Administered Medications Medication Dose Route Frequency - potassium phosphate 45 mmol in NaCl 0.9% 250 mL 45 mmol INTRAVENOUS ONCE - magnesium sulfate in sterile water 4 g iv piggyback 4 g INTRAVENOUS ONCE - QUEtiapine 50 mg tablet (SEROquel) 50 mg ORAL BID - metoprolol tartrate (short acting) 25 mg tab(s) (LOPRESSOR) 25 mg ORAL q 12 H - metoprolol 5 mg injection (LOPRESSOR) 5 mg INTRAVENOUS q 6 H PRN - haloperidol lactate 5 mg injection (HALDOL) 5 mg INTRAVENOUS q 6 H PRN - oxyCODONE 5-10 mg oral liquid (ROXICODONE) 5-10 mg ORAL q 4 H PRN - morphine 2 mg injection 2 mg INTRAVENOUS q 2 H PRN - LORazepam 2 mg (ATIVAN) 2 mg ORAL q 1 H PRN Or - LORazepam 2 mg injection (ATIVAN) 2 mg INTRAVENOUS q 1 H PRN - LORazepam 4 mg (ATIVAN) 4 mg ORAL q 1 H PRN Or - LORazepam 4 mg injection (ATIVAN) 4 mg INTRAVENOUS q 1 H PRN - enoxaparin 30 mg injection (LOVENOX) 30 mg SUBCUTANEOUS BID - levETIRAcetam 1,000 mg oral liquid (KEPPRA) 1,000 mg ORAL BID - ipratropium-albuterol 3 mL nebulizer solution (DUONEB) 3 mL INHALATION q 6 H PRN - potassium chloride ER 20-40 mEq tab(s) (K-DUR, KLOR-CON) 20-40 mEq ORAL/FEEDING TUBE PRN Or - potassium chloride iv piggyback 20 mEq/100 mL 20 mEq INTRAVENOUS PRN - magnesium sulfate in water 2 g in sterile water 50 ml 2 g INTRAVENOUS PRN - sodium phosphate 45 mmol in NaCl 0.9% 250 mL 45 mmol INTRAVENOUS PRN - calcium gluconate 4 g in NaCl 0.9% 250 mL 4 g INTRAVENOUS PRN - NaCl 0.9% 3-5 mL 3-5 mL INTRAVENOUS q 12 H - lidocaine 5 % 1 Patch (LIDODERM) 1 Patch TRANSDERMAL DAILY AT 9 PM And - lidocaine patch - REMOVE OTHER DAILY And - lidocaine - VERIFY PATCH OTHER q 8 H - acetaminophen 975 mg tab(s) (TYLENOL) 975 mg ORAL q 6 H - thiamine 100 mg tab(s) (VITAMIN B1) 100 mg ORAL TID - dexmedetomidine 400 mcg in NaCl 0.9% 100 mL (PRECEDEX) 0.2-1 mcg/kg/hr INTRAVENOUS CONTINUOUS Labs: Recent Labs 06/05/19 0335 06/04/19 0225 NA 133* 134* K 3.3* 3.7 CHLOR 98 100 CO2 28 27 BUN 8 6* CREAT 0.47* 0.38* GLUC 110* 93 ANION 10 11 CA 8.2* 8.5 MG 1.7 2.1 P 2.6 2.4* WBC 16.11* 14.90* HB 14.3 14.6 HCT 43.8 43.1 PLT 231 156 Exam: GENERAL: Alert and very restless in bed NEURO: severe receptive aphasia, no commands; dhaliwal well HEENT: normocephalic, atraumatic, perrl LUNGS: Unlabored breathing ASSESSMENT AND PLAN: Active Hospital Problems Diagnosis Date Noted - DTs (delirium tremens) ([facility]) 06/02/2019 - SAH (subarachnoid hemorrhage) ([facility]) 06/02/2019 - Closed fracture of one rib of left side 06/02/2019 - Closed fracture of vault of skull ([facility]) 06/02/2019 - Aphasia 06/02/2019 - Subdural hematoma ([facility]) 06/01/2019 - Bipolar affective disorder ([facility]) 12/21/2012 Overview Note: Diagnosed in ~1989 49 year old male left post temp IPH/SDH/SAH - neuro unchanged - CTH when able to keep pt still - continue nonsurgical mgt SIGNATURE: DESTINI Lobo PATIENT NAME: Rhoda Poon DATE: June 05, 2019 TIME: 9:20 AM Pager: [phone] [facility] PROGRESS HNO ID: [id number] Author: Raudel Martínez MD Service: Trauma Author Type: Resident Type: Progress Notes Filed: 06/05/2019 6:53 AM Note Text: Attestation signed by Francis Joy at 06/05/2019 1:45 PM I saw and evaluated the patient. Discussed with the resident and agree with resident's findings and plan as documented in the resident's note. Patient is less active this morning. Continue present management Trauma Progress Note SERVICE DATE: 06/05/2019 Trauma Service Pager: For questions or concerns Mon-Fri 6a-5p please page [phone]. After 5pm and on Weekends and Holidays, please page [phone] if in ICU or [phone] if on RNF. SUBJECTIVE: Pt quiet right now, but very restless overnight. Has periods where he sits upright in bed and becomes very difficult to calm. Has required ~ 40 mg ativan in past 24 hours. The only words he uses that make sense are pee when he needs to urinate. Has not had BM. OBJECTIVE: Vitals: Temp (24hrs), Av.6 ?C (97.9 ?F), Min:36 ?C (96.8 ?F), Max:37.3 ?C (99.1 ?F) BP 116/89 Pulse 104 Temp 37 ?C (98.6 ?F) Resp 28 Ht 172.7 cm (5' 7.99) Wt 79.7 kg (175 lb 11.3 oz) SpO2 91% BMI 26.72 kg/m? O2 Therapy: Nasal Cannula IANDO: Date 06/04/19 07 - 06/05/19 0659 06/05/19 0700 - 06/06/19 0659 Shift 4935-4690 6901-6274 8144-7879 24 Hour Total 2569-5295 0337-7970 0969-1186 24 Hour Total INTAKE IV 189 84 320 593 Dexmedetomidine IV 189 84 320 593 Irrigants 100 130 230 Irrigant/Flush Amount In (GI Feed 06/02/19 1446 Gastric Right Naris 12 Fr) 100 130 230 Gastric Tube 349 305 533 4527 Tube Feed Intake (I/O) (GI Feed 06/02/19 1446 Gastric Right Naris 12 Fr) 349 664 060 4444 Shift Total 721 962 6608 1880 OUTPUT Urine 782 371 3237 Void (ml) 300 300 Amount Voided Before Bladder Scan 200 200 Urine Incontinence/Not Saved 4 x 3 x 7 x Output ( External Collection Device 06/04/191999) 600 600 # of BMs Number of BMs 0 x 0 x Shift Total 039 402 2400 Weight (kg) 79.7 79.7 79.7 79.7 79.7 79.7 79.7 79.7 MEDICATIONS Current Facility-Administered Medications Medication Dose Route Frequency - potassium phosphate 45 mmol in NaCl 0.9% 250 mL 45 mmol INTRAVENOUS ONCE - magnesium sulfate in sterile water 4 g iv piggyback 4 g INTRAVENOUS ONCE - QUEtiapine 50 mg tablet (SEROquel) 50 mg ORAL BID - metoprolol tartrate (short acting) 25 mg tab(s) (LOPRESSOR) 25 mg ORAL q 12 H - metoprolol 5 mg injection (LOPRESSOR) 5 mg INTRAVENOUS q 6 H PRN - haloperidol lactate 5 mg injection (HALDOL) 5 mg INTRAVENOUS q 6 H PRN - oxyCODONE 5-10 mg oral liquid (ROXICODONE) 5-10 mg ORAL q 4 H PRN - morphine 2 mg injection 2 mg INTRAVENOUS q 2 H PRN - LORazepam 2 mg (ATIVAN) 2 mg ORAL q 1 H PRN Or - LORazepam 2 mg injection (ATIVAN) 2 mg INTRAVENOUS q 1 H PRN - LORazepam 4 mg (ATIVAN) 4 mg ORAL q 1 H PRN Or - LORazepam 4 mg injection (ATIVAN) 4 mg INTRAVENOUS q 1 H PRN - enoxaparin 30 mg injection (LOVENOX) 30 mg SUBCUTANEOUS BID - levETIRAcetam 1,000 mg oral liquid (KEPPRA) 1,000 mg ORAL BID - ipratropium-albuterol 3 mL nebulizer solution (DUONEB) 3 mL INHALATION q 6 H PRN - potassium chloride ER 20-40 mEq tab(s) (K-DUR, KLOR-CON) 20-40 mEq ORAL/FEEDING TUBE PRN Or - potassium chloride iv piggyback 20 mEq/100 mL 20 mEq INTRAVENOUS PRN - magnesium sulfate in water 2 g in sterile water 50 ml 2 g INTRAVENOUS PRN - sodium phosphate 45 mmol in NaCl 0.9% 250 mL 45 mmol INTRAVENOUS PRN - calcium gluconate 4 g in NaCl 0.9% 250 mL 4 g INTRAVENOUS PRN - NaCl 0.9% 3-5 mL 3-5 mL INTRAVENOUS q 12 H - lidocaine 5 % 1 Patch (LIDODERM) 1 Patch TRANSDERMAL DAILY AT 9 PM And - lidocaine patch - REMOVE OTHER DAILY And - lidocaine - VERIFY PATCH OTHER q 8 H - acetaminophen 975 mg tab(s) (TYLENOL) 975 mg ORAL q 6 H - thiamine 100 mg tab(s) (VITAMIN B1) 100 mg ORAL TID - dexmedetomidine 400 mcg in NaCl 0.9% 100 mL (PRECEDEX) 0.2-1 mcg/kg/hr INTRAVENOUS CONTINUOUS Labs: Recent Labs 06/05/19 0335 06/04/19 0225 NA 133* 134* K 3.3* 3.7 CHLOR 98 100 CO2 28 27 BUN 8 6* CREAT 0.47* 0.38* GLUC 110* 93 ANION 10 11 CA 8.2* 8.5 MG 1.7 2.1 P 2.6 2.4* WBC 16.11* 14.90* HB 14.3 14.6 HCT 43.8 43.1 PLT 231 156 PHYSICAL EXAM: Genl: No acute distress. Resting comfortably. Head/Face: Normocephalic. Resp: Breathing is non-labored. CVS: RRR. GI: Abdomen is soft, non-tender, not distended. MSK: Extremities without clubbing, cyanosis, edema. restrained Skin: Warm and dry. Neuro: sedated, does not open eyes or follow commands, still with word salad per nursing ASSESSMENT AND PLAN: Active Hospital Problems Diagnosis Date Noted - DTs (delirium tremens) ([facility]) 06/02/2019 - SAH (subarachnoid hemorrhage) ([facility]) 06/02/2019 - Closed fracture of one rib of left side 06/02/2019 - Closed fracture of vault of skull ([facility]) 06/02/2019 - Aphasia 06/02/2019 - Subdural hematoma ([facility]) 06/01/2019 - Bipolar affective disorder ([facility]) 12/21/2012 Overview Note: Diagnosed in ~1989 49 y/o male found down and brought to outside ED, transferred to [facility] for intracranial bleed.? ? Imaging performed: 1. CT head 2. CT neck 3. CT chest 4. CT abdomen/pelvis 5. PXR 6. CXR ? Traumatic Injuries: 1. Left posterolateral fifth rib fracture with adjacent lung contusions 2. Additional lung contusions vs infectious/inflammatory changes 3. There is an acute left occipital parietal temporal subdural hematoma estimated to measure approximately 5 mm maximal thickness. ?Small associated foci of internal gas. ?There is mild extension of subdural hemorrhage along the left tentorial leaflet.?Rightward midline shift of 2mm. 4. Nondisplaced obliquely oriented overlying calvarial fracture 5. Subarachnoid hemorrhage ? Operations:? 1. None ? Care Plan: 1. NPO/IVF 2. corpak 1. Ok for meds 2. Tube feeds going at goal 3. Keppra 4. NSX consult 1. Non-surgical mgmt 2. Signed off 06/04 5. Q1 neuro checks 6. Repeat head CT?is stable. 7. CIWA 1. Still requiring high levels of benzos ? Prophylaxis: 1. DVT ppx: SCD,?hold chemoprophylaxis Incidentals: 1. None ? Consulted Services and Recommendations: 1. SICU 2. NSX 3. PT/OT -?(p) ? Dispo Plannin. NSICU ? Follow Up Needs: 1. TBD ? ? To be discussed with Dr. Joy Trauma Service Pager: For questions or concerns Mon-Fri 6a-5p please page [phone]. After 5pm and on Weekends and Holidays, please page [phone] if in ICU or [phone] if on RNF. SIGNATURE: Raudel Martínez MD PATIENT NAME: Rhoda Poon DATE: June 05, 2019 TIME: 6:50 AM Normal [facility] Phosphorus Bloodon 9 Phosphate [Mass/Vol] 2.6 mg/dL Normal 2.5-4.9 [facility] Comment on above: Performed By: #### P 14 #### [place] [address] Sodium,Urineon 06-05-2019 Sodium (U) [Moles/Vol] 154 mmol/L Normal [facility] Comment on above: Performed By: #### P 14 #### [place] [address] Urinalysis Routineon 019 Bacteria LM.HPF (Urine sed) [#/Area] 1+ Abnormal None [facility] Comment on above: Performed By: #### P 14 #### [place] [address] Ep Cells Urine 0.0-2 Normal 0.0-5.0 [facility] Comment on above: Performed By: #### P 14 #### [place] [address] Hyaline Cast NONE Normal 0.0-1.0 [facility] Comment on above: Performed By: #### P 14 #### [facility] [address] [place] [address] RBC LM.HPF (Urine sed) [#/Area] 0.0-3 Normal 0.0-5.0 [facility] Comment on above: Performed By: #### P 14 #### [place] [address] WBC LM.HPF (Urine sed) [#/Area] 0.0-2 Normal 0.0-5.0 [facility] Comment on above: Performed By: #### P 14 #### [facility] [address] [place] [address] Appearance (U) CLOUDY Normal [facility] Comment on above: Performed By: #### P 14 #### [facility] [address] [place] [address] Bilirubin (U) [Mass/Vol] Negative Normal Negative [facility] Comment on above: Performed By: #### P 14 #### [facility] [address] [place] [address] Color (U) YELLOW Normal [facility] Comment on above: Performed By: #### P 14 #### [facility] [address] [place] [address] Glucose Ql (U) Negative Normal Negative [facility] Comment on above: Performed By: #### P 14 #### [facility] [address] [place] [address] Hemoglobin,Urine Negative Normal Negative [facility] Comment on above: Performed By: #### P 14 #### [facility] [address] [place] [address] Ketone Urine 15 mg/dL Abnormal Negative [facility] Comment on above: Performed By: #### P 14 #### [facility] [address] [place] [address] Leukocytes Esterase Negative Normal Negative [facility] Comment on above: Performed By: #### P 14 #### [facility] [address] [place] [address] Nitrites Urine Negative Normal Negative [facility] Comment on above: Performed By: #### P 14 #### [facility] [address] [place] [address] pH (U) 7.5 [pH] Normal 5.0-8.0 [facility] Comment on above: Performed By: #### P 14 #### [facility] [address] [place] [address] Protein (U) [Mass/Vol] Negative Normal Negative [facility] Comment on above: Performed By: #### P 14 #### [facility] [address] [place] [address] Specific [place], Ur 1.021 Normal 1.005-1.030 [facility] Comment on above: Performed By: #### P 14 #### [facility] [address] [place], [place] [address] Urobilinogen,Ur 1.0 EU/dL Normal 0.2-1.0 [facility] Comment on above: Performed By: #### P 14 #### [facility] [address] [place], [place] [address] XR CHEST 1V FRONTALon 2018 XR CHEST 1V FRONTAL * * *Final Report* * * DATE OF EXAM: Jun 05 2019 11:29AM AKX [id number] - XR CHEST 1V FRONTAL / PROCEDURE REASON: Fever of unknown origin * * * * Physician Interpretation * * * * EXAMINATION: CHEST RADIOGRAPH (SINGLE VIEW AP OR PA) CLINICAL HISTORY: Fever of unknown origin MQ: [id number] Comparison: 06/01/2019 RESULT: Lines, tubes, and devices: Enteric tube entering the stomach with tip below the visualized field of this film. Overlying kaiawhina leads. Lungs and pleura: Patchy opacities at both lung bases medially may represent subsegmental atelectasis. Developing pneumonia cannot be excluded radiographically. Lungs are otherwise clear. Cardiomediastinal silhouette: Heart size is normal. Other: Old fracture of the left clavicle. IMPRESSION: Decreased lung volumes with patchy opacities at the lung bases most likely representing atelectasis though a developing pneumonia cannot be excluded. 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: HUGO Transcribe Date/Time: Jun 05 2019 2:28P Dictated by : OTTONIEL VILLAGOMEZ MD This examination was interpreted and the report reviewed and electronically signed by: OTTONIEL VILLAGOMEZ MD on Jun 05 2019 2:33PM EST Normal [facility] ALLIED HEALTHon 06-04-2019 ALLIED HEALTH HNO ID: [id number] Author: Luisa (Rn) GILBERTO Joseph Service: Nursing Author Type: Registered Nurse Type: Allied Health Filed: 06/04/2019 10:35 AM Note Text: HALO NURSE PROGRESS NOTE SERVICE DATE: 06/04/2019 SERVICE TIME: 10:31 AM REFERRED BY: GILBERTO Pelletier VISIT WITH: Patient REASON FOR VISIT: Coping issues, New diagnosis and Serious illness/trauma CONDITION: medical INTERVENTIONS: Emotional support and Therapeutic listening TIME SPENT (minutes): 15 Patient restrained in bed, speech garbled. Did make eye contact and asked to get out. Offered reassurance and encouragement. SIGNATURE: Luisa Joseph RN PATIENT NAME: Rhoda Poon DATE: June 04, 2019 TIME: 10:31 AM Normal [facility] Basic Panelon 06-04-2019 Creatinine [Mass/Vol] 0.38 mg/dL Low 0.67-1.17 [facility] Comment on above: Performed By: #### D RUG3 #### [facility] [address] [place], [place] [address] Anion gap [Moles/Vol] 11 mmol/L Normal 8-16 [facility] Comment on above: Performed By: #### D RUG3 #### [address] [address] CO2 [Moles/Vol] 27 mmol/L Normal 21-32 [facility] Comment on above: Performed By: #### D RUG3 #### [address] [address] Glucose [Mass/Vol] 93 mg/dL Normal 70-99 [facility] Comment on above: Performed By: #### D RUG3 #### [address] [address] Urea nitrogen [Mass/Vol] 6 mg/dL Low 7-18 [facility] Comment on above: Performed By: #### D RUG3 #### [address] [address] Calcium [Mass/Vol] 8.5 mg/dL Normal 8.5-10.1 [facility] Comment on above: Performed By: #### D RUG3 #### [facility] [address] [place], [place] [address] Chloride [Moles/Vol] 100 mmol/L Normal 98-107 [facility] Comment on above: Performed By: #### D RUG3 #### [address] [address] Potassium [Moles/Vol] 3.7 mmol/L Normal 3.5-5.1 [facility] Comment on above: Performed By: #### D RUG3 #### [facility] [address] [place], [place] [address] Sodium [Moles/Vol] 134 mmol/L Low 136-145 [facility] Comment on above: Performed By: #### D RUG3 #### [facility] [address] [place], [place] [address] CONSULT PROGon 06-04-2019 CONSULT PROG HNO ID: [id number] Author: Lakesha Wilkes Service: Critical Care Author Type: Physician Type: Consult Progress Note Filed: 06/04/2019 12:52 PM Note Text: INPATIENT SICU PROGRESS NOTE SICU Service Pager: For questions or concerns Mon-Sun 6a-5p please page [phone]. After 5pm and on Weekends and Holidays, please page [phone]. SERVICE DATE: 06/04/2019 Subjective Subjective: This is a 49 year old male agitated at times overnight. Got 10 mg of ativan throughout the evening shift with a total of 18 mg yesterday. Does not follow commands. Occasionally verbalizes a coherent sentence but otherwise still aphasic. Current Facility-Administered Medications Medication Dose Route Frequency - potassium chloride ER 20-40 mEq tab(s) (K-DUR, KLOR-CON) 20-40 mEq ORAL/FEEDING TUBE PRN Or - potassium chloride iv piggyback 20 mEq/100 mL 20 mEq INTRAVENOUS PRN - magnesium sulfate in water 2 g in sterile water 50 ml 2 g INTRAVENOUS PRN - sodium phosphate 45 mmol in NaCl 0.9% 250 mL 45 mmol INTRAVENOUS PRN - calcium gluconate 4 g in NaCl 0.9% 250 mL 4 g INTRAVENOUS PRN - NaCl 0.9% 3-5 mL 3-5 mL INTRAVENOUS q 12 H - lidocaine 5 % 1 Patch (LIDODERM) 1 Patch TRANSDERMAL DAILY AT 9 PM And - lidocaine patch - REMOVE OTHER DAILY And - lidocaine - VERIFY PATCH OTHER q 8 H - acetaminophen 975 mg tab(s) (TYLENOL) 975 mg ORAL q 6 H - vitamin with folic acid 1 mg 1 tablet 1 tablet ORAL DAILY - folic acid 1 mg tab(s) 1 mg ORAL DAILY - thiamine 200 mg in NaCl 0.9% 50 mL 200 mg INTRAVENOUS q 8 H Followed by - thiamine 100 mg tab(s) (VITAMIN B1) 100 mg ORAL TID - dexmedetomidine 400 mcg in NaCl 0.9% 100 mL (PRECEDEX) 0.2-1 mcg/kg/hr INTRAVENOUS CONTINUOUS - metoprolol 5 mg injection (LOPRESSOR) 5 mg INTRAVENOUS q 6 HR - ipratropium-albuterol 3 mL nebulizer solution (DUONEB) 3 mL INHALATION q 6 H PRN - haloperidol lactate 5 mg injection (HALDOL) 5 mg INTRAVENOUS q 6 H PRN - oxyCODONE 5-10 mg oral liquid (ROXICODONE) 5-10 mg ORAL q 4 H PRN - morphine 2 mg injection 2 mg INTRAVENOUS q 2 H PRN - LORazepam 2 mg (ATIVAN) 2 mg ORAL q 1 H PRN Or - LORazepam 2 mg injection (ATIVAN) 2 mg INTRAVENOUS q 1 H PRN - LORazepam 4 mg (ATIVAN) 4 mg ORAL q 1 H PRN Or - LORazepam 4 mg injection (ATIVAN) 4 mg INTRAVENOUS q 1 H PRN - QUEtiapine 25 mg tab(s) (SEROquel) 25 mg ORAL BID - enoxaparin 30 mg injection (LOVENOX) 30 mg SUBCUTANEOUS BID - levETIRAcetam 1,000 mg oral liquid (KEPPRA) 1,000 mg ORAL BID Objective VITAL SIGNS BP 138/73 Pulse 83 Temp (Src) 99 (Temporal) Resp 24 Ht 5' 7.992 (1.73m) Wt 175 lb 11.3 oz (79.7kg) SpO2 90% BMI 26.72 kg/(m2). O2 Therapy: Nasal Cannula, Liters: 3 Temp (24hrs), Av.7 ?C (98 ?F), Min:36 ?C (96.8 ?F), Max:37.2 ?C (99 ?F) Date 06/03/19699 - 06/04/1965806/04/19699 - 06/05/19 0659 Shift 3350-2896 0150-9712 8824-7735 24 Hour Total 7802-3337 7417-3689 2087-6880 24 Hour Total INTAKE IV 1733 333.7 2066.7 D5 0.45%NS w/20KCL 1000 1000 NS 0.9% 163 163 Magnesium IVPB 100 100 Haldol IV 3 3 Dexmedetomidine IV 299.7 170.7 470.4 Metoprolol IV 10 10 Potassium Phosphate 320.3 320.3 Gastric Tube 83 412 495 Tube Feed Intake (I/O) (GI Feed 06/02/19 1446 Gastric Right Naris 12 Fr) 83 412 495 Shift Total 1816 745.7 2561.7 OUTPUT Urine Urine Incontinence/Not Saved 1 x 3 x 1 x 5 x Shift Total Weight (kg) 80.3 80.3 79.7 79.7 79.7 79.7 79.7 79.7 PHYSICAL EXAM: GENERAL: resting in bed, snoring HEENT: normocephalic, atraumatic, EOMI NECK: Trachea midline, no JVD SKIN: Skin color, texture, turgor normal. No rashes or lesions. LUNGS: unlabored breathing, equal chest rise bilaterally on O2 Therapy: Nasal Cannula Liters: 3 sating at SpO2: 90 % CARDIAC: Regular rate and rhythm as above, ABDOMEN: soft, non-distended, non-tender EXTREMITIES: ROM of all joint grossly normal: strength grossly normal bilaterally. No deformities noted. NEURO: CN II-XII grossly intact, no sensory or motor deficits in bilateral upper and lower extremities. Still aphasic speech. PSYCH: normal mood and affect for patient. DATA: Diagnostic tests reviewed for today's visit: No results for input(s): BODSITE, CTYPE, PH, PCO2, PO2, BE, HCO3, CO2CT, O2HB, COHB, MHGB, TEMP, PHTC, PCO2T, PO2T, O2AD in the last 72 hours. Recent Labs 06/04/19 0225 06/03/19 0450 06/02/19 0320 06/01/19 1651 CREAT 0.38* 0.41* 0.41* 0.55* BUN 6* 2* 4* 5* NA 134* 132* 134* 134* K 3.7 3.1* 3.7 3.8 CHLOR 100 100 103 100 CO2 27 27 24 27 ANION 11 8 11 11 GLUC 93 103* 141* 128* CA 8.5 8.2* 7.9* 8.2* P 2.4* 1.6* 3.2 -- MG 2.1 1.7 2.1 -- ALB -- -- -- 3.0* AST -- -- -- 47* ALT -- -- -- 56 ALKPHOS -- -- -- 137* TBILI -- -- -- 1.0 WBC 14.90* 12.87* 12.34* 11.92* HB 14.6 14.3 14.5 15.4 HCT 43.1 42.6 42.8 45.8 PLT 156 141 102* 104* Assessment/Plan This is a 49 year old male with below injuries and delirium tremens ? 1. Left posterolateral fifth rib fracture with adjacent lung contusions 2. Additional lung contusions vs infectious/inflammatory changes 3. There is an acute left occipital parietal temporal subdural hematoma estimated to measure approximately 5 mm maximal thickness. ?Small associated foci of internal gas. ?There is mild extension of subdural hemorrhage along the left tentorial leaflet.?Rightward midline shift of 2mm. 4. Nondisplaced obliquely oriented overlying calvarial fracture 5. Subarachnoid hemorrhage Neuro: - Pain Control:?tylenol, oxycodone, morphine prn - Sedation:?precedex, seroquel BID, ativan prn - Seizure ppx:?keppra -?Q1 neuro checks -C-spine precautions -CIWA for drinking history - NSX following, no neurosurgical intervention -On precedex, attempted to wean yesterday without success. Wean as possible CV: - tele - EKG if arrythmia - SBP <160 Resp: - on O2 Therapy: Nasal Cannula GI: - DIET TUBE FEED - CONTIN (NO TRAY) - Bowel Regimen: Will initiate today - GI ppx: None - Nausea control: zofran Renal: - Strict I/Os - replete lytes prn, keep Mag >2, K >3.5, iCa >4.2 Phos >2.5 Creatinine Date Value Ref Range Status 06/04/2019 0.38 (L) 0.67 - 1.17 mg/dL Final 06/03/2019 0.41 (L) 0.67 - 1.17 mg/dL Final 06/02/2019 0.41 (L) 0.67 - 1.17 mg/dL Final 06/01/2019 0.55 (L) 0.67 - 1.17 mg/dL Final Intake/Output Summary (Last 24 hours) at 06/03/2019 0659 Last data filed at 06/03/2019 0300 Gross per 24 hour Intake 3000.8 ml Output 1850 ml Net 1150.8 ml Heme: Hemoglobin Date Value Ref Range Status 10/26/2017 15.2 13.5 - 17.5 g/dL Final HGB Date Value Ref Range Status 06/04/2019 14.6 13.7 - 17.5 g/dL Final - Daily CBCs - Transfuse Hb <7 Endo: - Glucose Date Value Ref Range Status 06/04/2019 93 70 - 99 mg/dL Final - Daily BMPs ID: - WBC Date Value Ref Range Status 06/04/2019 14.90 (H) 4.23 - 9.07 thou/cmm Final - Daily CBCs - Observe for signs of infection: redness, warmth, increased swelling and pain with joint movement, fever, chills, sweats, etc. - Cultures: - MRSA (p) - Mild increase in white blood cell count. Afebrile, non-tachycardic. No obvious signs of infection. Follow closely. Ext: - DVT ppx: SCDs, LVX - Mobility order: bedrest while agitated - Restraints: Yes Lines: Peripheral 06/03/190 Assessment Short Right Forearm 20 Gauge (Active) Peripheral 06/03/19 2226 Assessment Short Right Antecubital 20 Gauge (Active) GI Feed 06/02/19 1446 Gastric Right Naris 12 Fr (Active) ] Consults: trauma, SICU, NSX Dispo: - NSICU Patient Checklist Deep vein thrombosis prophylaxis administered? Yes. Stress ulcer prophylaxis? No, not indicated.. Pain addressed? Yes. Nutrition: Enteral- Yes. TPN- No. PO- No. Restraints? Yes. Dispo needs assessed? Yes. SIGNATURE: Henok Kwong DO PATIENT NAME: Rhoda Poon DATE: June 04, 2019 TIME: 5:57 AM PAGER: below SICU Service Pager: For questions or concerns Mon-Fri 6a-5p please page [phone]. After 5pm and on Weekends and Holidays, please page [phone]. Remains in DTs Does not follow command Agitated at times Cont Precedex drip Ativan TF via [employer] Seroquel to 50 mg BID SCD Lovenox Pain congtrol I provided 35 minutes of critical care services which were necessary due to above specified injuries and illnesses. This patient has a high probability of sudden, clinical significant deterioration, which required the highest level of care and preparedness to intervene urgently. I managed and supervised life or organ supporting interventions that require frequent assessments. This time does not include time devoted to teaching and to any procedure I billed separately. I have personally seen and examined this patient and participated in the rojas components of this encounter with the multi-disciplinary ICU team. I discussed the management of this case with the resident and reviewed/confirmed their documentation, attached or in separate note. I personally reviewed today's actual images, the associated image reports, and current labs. I supervised the ordering of additional testing, imaging, labs, and/or consultations. The patient and/or family were fully informed of the findings and plan of care. They had the opportunity to ask questions and raise any issues of concern, all of which were answered and dealt with by me to their stated satisfaction. The critical care treatment was mainly directed to address the following issues: (S06.5X9A) Subdural hematoma (HCC) (primary encounter diagnosis) (S02.0XXA) Closed fracture of vault of skull, initial encounter (HCC) (I60.9) Subarachnoid hemorrhage (HCC) (S06.359A) Traumatic left-sided intracerebral hemorrhage with loss of consciousness, initial encounter (HCC) (S02.19XA) Closed fracture of temporal bone, initial encounter (HCC) (S22.32XA) Closed fracture of one rib of left side, initial encounter Management included sedation, pain control and ventilation assessment including need for ventilator, weaning and/or extubation as indicated. Management of critical care illnesses are edited above by me, including system by system plan and are not only limited to infectious disease and tailoring the antibiotic therapy, nutrition assessment and supplementation, electrolyte correction and prevention of ICU related complications using ventilator bundle, sedation holiday and assessment and removal of lines and tubes where indicated. SIGNATURE: Lakesha Wilkes MD PATIENT NAME: Rhoda Poon DATE: June 04, 2019 TIME: 12:51 PM Normal [facility] Hemogram/Diffon 06-04-2019 Abs Immature Grans 0.10 thou/cmm High 0.00-0.05 [facility] Comment on above: Performed By: #### D RUG3 #### [place] [address] Abs Neut (ANC) 12.22 thou/cmm High 1.78-5.38 [facility] Comment on above: Performed By: #### D RUG3 #### [facility] [address] [place], [place] [address] Abs. Baso 0.04 thou/cmm Normal 0.01-0.08 [facility] Comment on above: Performed By: #### D RUG3 #### [facility] [address] [place], [place] [address] Abs. [place] 1.53 thou/cmm High 0.30-0.82 [facility] Comment on above: Performed By: #### D RUG3 #### [facility] [address] [place], [place] [address] Basophils/100 WBC (Bld) 0.3 % Normal [facility] Comment on above: Performed By: #### D RUG3 #### [facility] [address] [place], [place] [address] Eosinophils (Bld) [#/Vol] 0.12 thou/cmm Normal 0.04-0.54 [facility] Comment on above: Performed By: #### D RUG3 #### [facility] [address] [place], [place] [address] Eosinophils/100 WBC (Bld) 0.8 % Normal [facility] Comment on above: Performed By: #### D RUG3 #### [address] [address] Immature Grans 0.70 % Normal [facility] Comment on above: Performed By: #### D RUG3 #### [facility] [address] [place], [place] [address] Lymphocytes (Bld) [#/Vol] 0.88 thou/cmm Normal 0.84-2.85 [facility] Comment on above: Performed By: #### D RUG3 #### [facility] [address] [place], [place] [address] Lymphocytes/100 WBC (Bld) 5.9 % Normal [facility] Comment on above: Performed By: #### D RUG3 #### [facility] [address] [place], [place] [address] Monocytes/100 WBC (Bld) 10.3 % Normal [facility] Comment on above: Performed By: #### D RUG3 #### [facility] [address] [place] [address] Seg Neutrophil 82.0 % Normal [facility] Comment on above: Performed By: #### D RUG3 #### [facility] [address] [place] [address] Erythrocyte distribution width (RBC) [Ratio] 13.2 % Normal 11.6-14.4 [facility] Comment on above: Performed By: #### D RUG3 #### [facility] [address] [place] [address] Hematocrit (Bld) [Volume fraction] 43.1 % Normal 40.1-51.0 [facility] Comment on above: Performed By: #### D RUG3 #### [place] [address] Hemoglobin (Bld) [Mass/Vol] 14.6 g/dL Normal 13.7-17.5 [facility] Comment on above: Performed By: #### D RUG3 #### [facility] [address] [place] [address] MCH (RBC) [Entitic mass] 32.7 pg High 25.7-32.2 [facility] Comment on above: Performed By: #### D RUG3 #### [place] [address] MCHC (RBC) [Mass/Vol] 33.9 % Normal 32.3-36.5 [facility] Comment on above: Performed By: #### D RUG3 #### [facility] [address] [place] [address] MCV (RBC) [Entitic vol] 96.4 fL High 83.2-95.6 [facility] Comment on above: Performed By: #### D RUG3 #### [place] [address] Platelet mean volume (Bld) [Entitic vol] 9.5 fL Normal 8.7-12.0 [facility] Comment on above: Performed By: #### D RUG3 #### [facility] [address] [place], [place] [address] Platelets (Bld) [#/Vol] 156 thou/cmm Normal 141-365 [facility] Comment on above: Performed By: #### D RUG3 #### [facility] [address] [place], [place] [address] RBC (Bld) [#/Vol] 4.47 mil/cmm Low 4.63-6.08 [facility] Comment on above: Performed By: #### D RUG3 #### [facility] [address] [place], [place] [address] RDW SD 47.5 fl High 36.1-45.8 [facility] Comment on above: Performed By: #### D RUG3 #### [facility] [address] [place], [place] [address] WBC (Bld) [#/Vol] 14.90 thou/cmm High 4.23-9.07 [facility] Comment on above: Performed By: #### Kim RUG3 #### [facility] [address] [place], [place] [address] Ionized Calciumon 06-04-2019 Ionized Ca,PH7.4 4.58 mg/dL Low 4.61-5.17 [facility] Comment on above: Performed By: #### Kim RUG3 #### [facility] [address] [place], [place] [address] pH (Bld) 7.431 [pH] High 7.320-7.430 [facility] Comment on above: Performed By: #### Kim RUG3 #### [facility] [address] [place], [place] [address] Ionized Calcium 4.50 mg/dL Low 4.61-5.17 [facility] Comment on above: Performed By: #### D RUG3 #### [facility] [address] [place], [place] [address] Magnesium Bloodon 06-04-2019 Magnesium [Mass/Vol] 2.1 mg/dL Normal 1.6-2.6 [facility] Comment on above: Performed By: #### Kim RUG3 #### [facility] [address] [place] [id number] NURSING PROGon 06-04-2019 NURSING PROG HNO ID: [id number] Author: Kala LucasRn) GILBERTO Castorena Service: ? Author Type: Registered Nurse Type: Nursing Progress Note Filed: 06/05/2019 7:32 PM Note Text: Nursing Progress: Topic: RESTRAINT NON-VIOLENT PATIENT NAME: Rhoda Poon PATIENT LOCATION: [place] [address]/[place] [address] 0* The patient demonstrates Attempting to Remove Medical Devices Vital to Medical Stability, Confusion, Lack of Understanding/Ability to Comply with Safety Directions, Impulsive Behavior, Inability to be Redirected, Inability to Retain Information Regarding Safety Directions as evidenced by the following behaviors attempting to get out of bed and pull out IVs which pose an imminent danger to self or others. The following interventions were attempted but were not effective in protecting the patient's safety: Contraindicated - Imminent Safety Risk Next, a comprehensive assessment was performed and warranted placing the patient in Soft Bilateral Wrists, the least restrictive restraint needed to protect the patient's safety. Ongoing safety assessments and evaluation for earliest removal of restraints will be performed. DATE: June 05, 2019 TIME: 7:30 PM Kala Castorena RN [facility] NURSING PROG HNO ID: [id number] Author: Tran LucasRn) GILBERTO Arellano Service: Nursing Author Type: Registered Nurse Type: Nursing Progress Note Filed: 06/04/2019 11:16 AM Note Text: Nursing Progress: Topic: RESTRAINT NON-VIOLENT PATIENT NAME: Rhoda Poon PATIENT LOCATION: [place] [address] [address]* The patient demonstrates Attempting to Remove Medical Devices Vital to Medical Stability, Lack of Understanding/Ability to Comply with Safety Directions, Impulsive Behavior, Inability to be Redirected as evidenced by the following behaviors pulling at tubes and lines which pose an imminent danger to self or others. The following interventions were attempted but were not effective in protecting the patient's safety: Alarms, Bed in Low/Locked Position, Call Light Within Reach, IV/Feeding Bag/Pump Out of Vision, Medications Reviewed, Modify Environment, Frequent Observation, Move Patient Closer to Nurses Station, Pain/Discomfort Relief Next, a comprehensive assessment was performed and warranted placing the patient in Soft Bilateral Wrists, the least restrictive restraint needed to protect the patient's safety. Ongoing safety assessments and evaluation for earliest removal of restraints will be performed. DATE: June 04, 2019 TIME: 11:15 AM Tran Arellano RN [facility] NURSING PROG HNO ID: [id number] Author: Radhika LucasRn) GILBERTO Worthy Service: Nursing Author Type: Registered Nurse Type: Nursing Progress Note Filed: 06/03/2019 11:37 PM Note Text: Nursing Progress: Topic: RESTRAINT NON-VIOLENT PATIENT NAME: Rhoda Poon PATIENT LOCATION: [id number]/[place] [address]* The patient demonstrates Attempting to Remove Medical Devices Vital to Medical Stability, Confusion, Lack of Understanding/Ability to Comply with Safety Directions, Impulsive Behavior, Inability to be Redirected, Inability to Retain Information Regarding Safety Directions as evidenced by the following behaviors pulling at lines and tubes and attempting to get out of bed which pose an imminent danger to self or others. The following interventions were attempted but were not effective in protecting the patient's safety: Alarms, Bed in Low/Locked Position, Call Light Within Reach Next, a comprehensive assessment was performed and warranted placing the patient in Soft Bilateral Wrists, the least restrictive restraint needed to protect the patient's safety. Ongoing safety assessments and evaluation for earliest removal of restraints will be performed. DATE: June 03, 2019 TIME: 11:36 PM Radhika Worthy RN [facility] PROGRESSon 06-04-2019 PROGRESS HNO ID: [id number] Author: Ashley Alvarez (Destini) DESTNII Silver Service: Neurosurgery Author Type: Physician Electrolysis Needle Operator Type: Progress Notes Filed: 06/04/2019 9:19 AM Note Text: Neurosurgery Progress Note SERVICE DATE: 06/04/2019 SUBJECTIVE: NAEON - per RN still very restless when not sedated - word salad but occasionally says something lucid OBJECTIVE: Vitals: Temp (24hrs), Av.8 ?C (98.3 ?F), Min:36 ?C (96.8 ?F), Max:37.3 ?C (99.1 ?F) BP 142/85 Pulse 88 Temp 37.3 ?C (99.1 ?F) (Temporal) Resp 24 Ht 172.7 cm (5' 7.99) Wt 79.7 kg (175 lb 11.3 oz) SpO2 97% BMI 26.72 kg/m? O2 Therapy: Nasal Cannula IANDO: Date 06/03/19699 - 06/04/1958 06/04/19 07 - 06/05/19 0659 Shift 2684-9963 5777-5992 4309-0486 24 Hour Total 7940-7801 9708-8021 4769-7774 24 Hour Total INTAKE IV 1733 454.7 2187.7 60 60 D5 0.45%NS w/20KCL 1000 1000 NS 0.9% 217 217 Magnesium IVPB 100 100 Haldol IV 3 3 Dexmedetomidine IV 299.7 237.7 537.4 60 60 Metoprolol IV 10 10 Potassium Phosphate 320.3 320.3 Gastric Tube 83 502 585 69 69 Tube Feed Intake (I/O) (GI Feed 06/02/19 1446 Gastric Right Naris 12 Fr) 83 502 585 69 69 Shift Total 1816 956.7 2772.7 129 129 OUTPUT Urine 200 200 Void (ml) 200 200 Urine Incontinence/Not Saved 1 x 3 x 2 x 6 x Shift Total 200 200 Weight (kg) 80.3 80.3 79.7 79.7 79.7 79.7 79.7 79.7 MEDICATIONS Current Facility-Administered Medications Medication Dose Route Frequency - haloperidol lactate 5 mg injection (HALDOL) 5 mg INTRAVENOUS q 6 H PRN - oxyCODONE 5-10 mg oral liquid (ROXICODONE) 5-10 mg ORAL q 4 H PRN - morphine 2 mg injection 2 mg INTRAVENOUS q 2 H PRN - LORazepam 2 mg (ATIVAN) 2 mg ORAL q 1 H PRN Or - LORazepam 2 mg injection (ATIVAN) 2 mg INTRAVENOUS q 1 H PRN - LORazepam 4 mg (ATIVAN) 4 mg ORAL q 1 H PRN Or - LORazepam 4 mg injection (ATIVAN) 4 mg INTRAVENOUS q 1 H PRN - QUEtiapine 25 mg tab(s) (SEROquel) 25 mg ORAL BID - enoxaparin 30 mg injection (LOVENOX) 30 mg SUBCUTANEOUS BID - levETIRAcetam 1,000 mg oral liquid (KEPPRA) 1,000 mg ORAL BID - metoprolol 5 mg injection (LOPRESSOR) 5 mg INTRAVENOUS q 6 HR - ipratropium-albuterol 3 mL nebulizer solution (DUONEB) 3 mL INHALATION q 6 H PRN - potassium chloride ER 20-40 mEq tab(s) (K-DUR, KLOR-CON) 20-40 mEq ORAL/FEEDING TUBE PRN Or - potassium chloride iv piggyback 20 mEq/100 mL 20 mEq INTRAVENOUS PRN - magnesium sulfate in water 2 g in sterile water 50 ml 2 g INTRAVENOUS PRN - sodium phosphate 45 mmol in NaCl 0.9% 250 mL 45 mmol INTRAVENOUS PRN - calcium gluconate 4 g in NaCl 0.9% 250 mL 4 g INTRAVENOUS PRN - NaCl 0.9% 3-5 mL 3-5 mL INTRAVENOUS q 12 H - lidocaine 5 % 1 Patch (LIDODERM) 1 Patch TRANSDERMAL DAILY AT 9 PM And - lidocaine patch - REMOVE OTHER DAILY And - lidocaine - VERIFY PATCH OTHER q 8 H - acetaminophen 975 mg tab(s) (TYLENOL) 975 mg ORAL q 6 H - vitamin with folic acid 1 mg 1 tablet 1 tablet ORAL DAILY - thiamine 200 mg in NaCl 0.9% 50 mL 200 mg INTRAVENOUS q 8 H - dexmedetomidine 400 mcg in NaCl 0.9% 100 mL (PRECEDEX) 0.2-1 mcg/kg/hr INTRAVENOUS CONTINUOUS Labs: Recent Labs 06/04/19 0225 06/03/19 0450 06/01/19 1651 NA 134* 132* < > 134* K 3.7 3.1* < > 3.8 CHLOR 100 100 < > 100 CO2 27 27 < > 27 BUN 6* 2* < > 5* CREAT 0.38* 0.41* < > 0.55* GLUC 93 103* < > 128* ANION 11 8 < > 11 CA 8.5 8.2* < > 8.2* MG 2.1 1.7 < > -- P 2.4* 1.6* < > -- ALB -- -- -- 3.0* AST -- -- -- 47* ALT -- -- -- 56 ALKPHOS -- -- -- 137* TBILI -- -- -- 1.0 WBC 14.90* 12.87* < > 11.92* HB 14.6 14.3 < > 15.4 HCT 43.1 42.6 < > 45.8 PLT 156 141 < > 104* INR -- -- -- 0.97 < > = values in this interval not displayed. Exam: GENERAL: No distress, sedate NEURO: aphasia; dhaliwal well HEENT: normocephalic, atraumatic LUNGS: Unlabored breathing ASSESSMENT AND PLAN: Active Hospital Problems Diagnosis Date Noted - DTs (delirium tremens) ([facility]) 06/02/2019 - SAH (subarachnoid hemorrhage) ([facility]) 06/02/2019 - Closed fracture of one rib of left side 06/02/2019 - Closed fracture of vault of skull ([facility]) 06/02/2019 - Aphasia 06/02/2019 - Subdural hematoma ([facility]) 06/01/2019 - Bipolar affective disorder ([facility]) 12/21/2012 Overview Note: Diagnosed in ~1989 49 year old male Left IPH/SDH/SAH with severe aphasia - neuro unchanged - ETOH w/d - nonsurgical mgt - will SO - call if needed SIGNATURE: DESTINI Lobo PATIENT NAME: Rhoda Poon DATE: June 04, 2019 TIME: 9:17 AM Pager: [phone] [facility] PROGRESS HNO ID: [id number] Author: Raudel Martínez MD Service: Trauma Author Type: Resident Type: Progress Notes Filed: 06/04/2019 6:41 AM Note Text: Attestation signed by Francis Joy at 06/04/2019 11:09 AM I saw and evaluated the patient. Discussed with the resident and agree with resident's findings and plan as documented in the resident's note. Patient is a little less sedated today. Still needs to be restrained. Continue present support. Tolerating tube feeds Trauma Progress Note SERVICE DATE: 06/04/2019 Trauma Service Pager: For questions or concerns Mon-Fri 6a-5p please page [phone]. After 5pm and on Weekends and Holidays, please page [phone] if in ICU or [phone] if on RNF. SUBJECTIVE: Pt remains restless at night when not sedated. Still with word salad. Did not open eyes for me this AM. No BM per nurse. On TF, 1 mcg of precedex OBJECTIVE: Vitals: Temp (24hrs), Av.7 ?C (98.1 ?F), Min:36 ?C (96.8 ?F), Max:37.2 ?C (99 ?F) BP 138/73 Pulse 83 Temp 37.2 ?C (99 ?F) (Temporal) Resp 24 Ht 172.7 cm (5' 7.99) Wt 79.7 kg (175 lb 11.3 oz) SpO2 90% BMI 26.72 kg/m? O2 Therapy: Nasal Cannula IANDO: Date 06/03/19699 - 06/04/19 0659 06/04/19 07 - 06/05/19 0659 Shift 6727-0215 6404-2010 2775-9431 24 Hour Total 5491-7306 1518-9463 1167-4732 24 Hour Total INTAKE IV 1733 333.7 2066.7 D5 0.45%NS w/20KCL 1000 1000 NS 0.9% 163 163 Magnesium IVPB 100 100 Haldol IV 3 3 Dexmedetomidine IV 299.7 170.7 470.4 Metoprolol IV 10 10 Potassium Phosphate 320.3 320.3 Gastric Tube 83 412 495 Tube Feed Intake (I/O) (GI Feed 06/02/19 1446 Gastric Right Naris 12 Fr) 83 412 495 Shift Total 1816 745.7 2561.7 OUTPUT Urine Urine Incontinence/Not Saved 1 x 3 x 1 x 5 x Shift Total Weight (kg) 80.3 80.3 79.7 79.7 79.7 79.7 79.7 79.7 MEDICATIONS Current Facility-Administered Medications Medication Dose Route Frequency - haloperidol lactate 5 mg injection (HALDOL) 5 mg INTRAVENOUS q 6 H PRN - oxyCODONE 5-10 mg oral liquid (ROXICODONE) 5-10 mg ORAL q 4 H PRN - morphine 2 mg injection 2 mg INTRAVENOUS q 2 H PRN - LORazepam 2 mg (ATIVAN) 2 mg ORAL q 1 H PRN Or - LORazepam 2 mg injection (ATIVAN) 2 mg INTRAVENOUS q 1 H PRN - LORazepam 4 mg (ATIVAN) 4 mg ORAL q 1 H PRN Or - LORazepam 4 mg injection (ATIVAN) 4 mg INTRAVENOUS q 1 H PRN - QUEtiapine 25 mg tab(s) (SEROquel) 25 mg ORAL BID - enoxaparin 30 mg injection (LOVENOX) 30 mg SUBCUTANEOUS BID - levETIRAcetam 1,000 mg oral liquid (KEPPRA) 1,000 mg ORAL BID - metoprolol 5 mg injection (LOPRESSOR) 5 mg INTRAVENOUS q 6 HR - ipratropium-albuterol 3 mL nebulizer solution (DUONEB) 3 mL INHALATION q 6 H PRN - potassium chloride ER 20-40 mEq tab(s) (K-DUR, KLOR-CON) 20-40 mEq ORAL/FEEDING TUBE PRN Or - potassium chloride iv piggyback 20 mEq/100 mL 20 mEq INTRAVENOUS PRN - magnesium sulfate in water 2 g in sterile water 50 ml 2 g INTRAVENOUS PRN - sodium phosphate 45 mmol in NaCl 0.9% 250 mL 45 mmol INTRAVENOUS PRN - calcium gluconate 4 g in NaCl 0.9% 250 mL 4 g INTRAVENOUS PRN - NaCl 0.9% 3-5 mL 3-5 mL INTRAVENOUS q 12 H - lidocaine 5 % 1 Patch (LIDODERM) 1 Patch TRANSDERMAL DAILY AT 9 PM And - lidocaine patch - REMOVE OTHER DAILY And - lidocaine - VERIFY PATCH OTHER q 8 H - acetaminophen 975 mg tab(s) (TYLENOL) 975 mg ORAL q 6 H - vitamin with folic acid 1 mg 1 tablet 1 tablet ORAL DAILY - folic acid 1 mg tab(s) 1 mg ORAL DAILY - thiamine 200 mg in NaCl 0.9% 50 mL 200 mg INTRAVENOUS q 8 H - dexmedetomidine 400 mcg in NaCl 0.9% 100 mL (PRECEDEX) 0.2-1 mcg/kg/hr INTRAVENOUS CONTINUOUS Labs: Recent Labs 06/04/19 0225 06/03/19 0450 06/01/19 1651 NA 134* 132* < > 134* K 3.7 3.1* < > 3.8 CHLOR 100 100 < > 100 CO2 27 27 < > 27 BUN 6* 2* < > 5* CREAT 0.38* 0.41* < > 0.55* GLUC 93 103* < > 128* ANION 11 8 < > 11 CA 8.5 8.2* < > 8.2* MG 2.1 1.7 < > -- P 2.4* 1.6* < > -- ALB -- -- -- 3.0* AST -- -- -- 47* ALT -- -- -- 56 ALKPHOS -- -- -- 137* TBILI -- -- -- 1.0 WBC 14.90* 12.87* < > 11.92* HB 14.6 14.3 < > 15.4 HCT 43.1 42.6 < > 45.8 PLT 156 141 < > 104* INR -- -- -- 0.97 < > = values in this interval not displayed. PHYSICAL EXAM: Genl: No acute distress. Resting comfortably. Head/Face: Normocephalic. Resp: Breathing is non-labored. CVS: RRR. GI: Abdomen is soft, non-tender, not distended. MSK: Extremities without clubbing, cyanosis, edema. restrained Skin: Warm and dry. Neuro:sedated, does not open eyes or follow commands ASSESSMENT AND PLAN: Active Hospital Problems Diagnosis Date Noted - DTs (delirium tremens) ([facility]) 06/02/2019 - SAH (subarachnoid hemorrhage) ([facility]) 06/02/2019 - Closed fracture of one rib of left side 06/02/2019 - Closed fracture of vault of skull ([facility]) 06/02/2019 - Aphasia 06/02/2019 - Subdural hematoma ([facility]) 06/01/2019 - Bipolar affective disorder ([facility]) 12/21/2012 Overview Note: Diagnosed in ~1989 49 y/o male found down and brought to outside ED, transferred to [facility] for intracranial bleed.? ? Imaging performed: 1. CT head 2. CT neck 3. CT chest 4. CT abdomen/pelvis 5. PXR 6. CXR ? Traumatic Injuries: 1. Left posterolateral fifth rib fracture with adjacent lung contusions 2. Additional lung contusions vs infectious/inflammatory changes 3. There is an acute left occipital parietal temporal subdural hematoma estimated to measure approximately 5 mm maximal thickness. ?Small associated foci of internal gas. ?There is mild extension of subdural hemorrhage along the left tentorial leaflet.?Rightward midline shift of 2mm. 4. Nondisplaced obliquely oriented overlying calvarial fracture 5. Subarachnoid hemorrhage ? Operations:? 1. None ? Care Plan: 1. NPO/IVF 2. corpak 1. Ok for meds 2. Tube feeds going at goal 3. Keppra 4. NSX consult 5. Q1 neuro checks 6. Repeat head CT?is stable. 7. CIWA ? Prophylaxis: 1. DVT ppx: SCD,?hold chemoprophylaxis Incidentals: 1. None ? Consulted Services and Recommendations: 1. SICU 2. NSX 3. PT/OT -?(p) ? Dispo Plannin. NSICU ? Follow Up Needs: 1. TBD ? ? To be discussed with Dr. Parisi Trauma Service Pager: For questions or concerns Mon-Sun 6a-5p please page [phone]. After 5pm and on Weekends and Holidays, please page [phone] if in ICU or [phone] if on RNF. SIGNATURE: Raudel Martínez MD PATIENT NAME: Rhoda Poon DATE: June 04, 2019 TIME: 6:38 AM Normal [facility] Phosphorus Bloodon 9 Phosphate [Mass/Vol] 2.4 mg/dL Low 2.5-4.9 [facility] Comment on above: Performed By: #### D RUG3 #### [place] [address] Basic Panelon 06-03-2019 Creatinine [Mass/Vol] 0.41 mg/dL Low 0.67-1.17 [facility] Comment on above: Performed By: #### A PTT #### [facility] [address] [place], [place] [address] Anion gap [Moles/Vol] 8 mmol/L Normal 8-16 [facility] Comment on above: Performed By: #### A PTT #### [facility] [address] [place] [address] CO2 [Moles/Vol] 27 mmol/L Normal 21-32 [facility] Comment on above: Performed By: #### A PTT #### [facility] [address] [place], [place] [address] Glucose [Mass/Vol] 103 mg/dL High 70-99 [facility] Comment on above: Performed By: #### A PTT #### [facility] [address] [place], [place] [address] Urea nitrogen [Mass/Vol] 2 mg/dL Low 7-18 [facility] Comment on above: Performed By: #### A PTT #### [facility] [address] [place], [place] [address] Calcium [Mass/Vol] 8.2 mg/dL Low 8.5-10.1 [facility] Comment on above: Performed By: #### A PTT #### [facility] [address] [place] [address] Chloride [Moles/Vol] 100 mmol/L Normal 98-107 [facility] Comment on above: Performed By: #### A PTT #### [facility] [address] [place] [address] Potassium [Moles/Vol] 3.1 mmol/L Low 3.5-5.1 [facility]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 PO- No. Restraints? Yes. Dispo needs assessed? Yes. SIGNATURE: Henok Kwong DO PATIENT NAME: Rhoda Poon DATE: June 02, 2019 TIME: 2:12 AM PAGER: below SICU Service Pager: For questions or concerns Sun-Sun 6a-5p please page [phone]. After 5pm and on Weekends and Holidays, please page [phone]. As above In DTs On CIWA protocol and Ativan On Precedex NPO On IV Plan: Ativan Wean Precedex drip [place] for meds and TF SCD Pain control Neuro checks Home meds I provided 35 minutes of critical care services which were necessary due to above specified injuries and illnesses. This patient has a high probability of sudden, clinical significant deterioration, which required the highest level of care and preparedness to intervene urgently. I managed and supervised life or organ supporting interventions that require frequent assessments. This time does not include time devoted to teaching and to any procedure I billed separately. I have personally seen and examined this patient and participated in the rojas components of this encounter with the multi-disciplinary ICU team. I discussed the management of this case with the resident and reviewed/confirmed their documentation, attached or in separate note. I personally reviewed today's actual images, the associated image reports, and current labs. I supervised the ordering of additional testing, imaging, labs, and/or consultations. The patient and/or family were fully informed of the findings and plan of care. They had the opportunity to ask questions and raise any issues of concern, all of which were answered and dealt with by me to their stated satisfaction. The critical care treatment was mainly directed to address the following issues: (S06.5X9A) Subdural hematoma (HCC) (primary encounter diagnosis) (S02.0XXA) Closed fracture of vault of skull, initial encounter (HCC) (I60.9) Subarachnoid hemorrhage (HCC) (S06.359A) Traumatic left-sided intracerebral hemorrhage with loss of consciousness, initial encounter (HCC) (S02.19XA) Closed fracture of temporal bone, initial encounter (HCC) (S22.32XA) Closed fracture of one rib of left side, initial encounter Management included sedation, pain control and ventilation assessment including need for ventilator, weaning and/or extubation as indicated. Management of critical care illnesses are edited above by me, including system by system plan and are not only limited to infectious disease and tailoring the antibiotic therapy, nutrition assessment and supplementation, electrolyte correction and prevention of ICU related complications using ventilator bundle, sedation holiday and assessment and removal of lines and tubes where indicated. SIGNATURE: Lakesha Wilkes MD PATIENT NAME: Rhoda Poon DATE: June 02, 2019 TIME: 11:24 AM Normal [facility] CT BRAIN WO IVCONon 06-02-[address] BRAIN WO IVCON * * *Final Report* * * DATE OF EXAM: Jun 02 2019 5:38AM [facility] 0504 - CT BRAIN WO IVCON / PROCEDURE REASON: Intracranial hemorrhage * * * * Physician Interpretation * * * * EXAMINATION: CT BRAIN WITHOUT IV CONTRAST CLINICAL HISTORY: Intracranial hemorrhage. TECHNIQUE: Serial axial images without IV contrast were obtained from the vertex to the foramen magnum. MQ: [id number] CT Dose-Length Product (DLP): 843 mGy*cm CT Dose Reduction Employed: Iterative recon COMPARISON: CT brain 06/01/2019 20:21. RESULT: Post-operative change: Internal fixation along the left orbit and left maxillary sinus again noted. Acute change: No evidence of an acute ischemic infarct. Hemorrhage: Left temporal intraparenchymal hemorrhage appears stable. Left greater than right bilateral subarachnoid hemorrhage appears stable. Left-sided subdural hemorrhage and bilateral tentorial subdural hemorrhage appears similar. Minimal amount of intraventricular hemorrhage present in the right occipital horn. Minimal left posterior pneumocephalus appears similar. Mass Lesion / Mass Effect: Mass effect and minimal [id number] midline shift appears stable. No significant mass effect. Chronic change: None apparent. Parenchyma: There is no significant volume loss. The brain parenchyma is otherwise within normal limits for age. Ventricles: The ventricles are within normal limits of size and configuration for age. Paranasal sinuses and skull base: Nondisplaced left temporal bone fracture with partial opacification of left mastoid air cells again noted. The visualized paranasal sinuses are grossly clear. Left temporal scalp hematoma is unchanged. IMPRESSION: No significant interval change in multicompartment intracranial hemorrhage, mass effect, or minimal [id number] midline shift. Minimal left pneumocephalus appears similar with nondisplaced left temporal bone fracture.. 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: [facility] Transcribe Date/Time: Jun 02 2019 7:32A Dictated by : NATHALIE LAZAR MD This examination was interpreted and the report reviewed and electronically signed by: NATHALIE LAZAR MD on Jun 02 2019 7:38AM EST Normal [facility] Hemogram/Diffon 06-02-2019 Abs Immature Grans 0.12 thou/cmm High 0.00-0.05 [facility] Comment on above: Performed By: #### P T #### [place] [address] Abs Neut (ANC) 11.04 thou/cmm High 1.78-5.38 [facility] Comment on above: Performed By: #### P T #### [place] [address] Abs. Baso 0.01 thou/cmm Normal 0.01-0.08 [facility] Comment on above: Result Comment: Smea r scanned; tech agrees with automated differential Performed By: #### P T #### [place] [address] Abs. [place] 0.77 thou/cmm Normal 0.30-0.82 [facility] Comment on above: Performed By: #### P T #### [place] [address] Basophils/100 WBC (Bld) 0.1 % Normal [facility] Comment on above: Performed By: #### P T #### [address] [place], [place] [address] Eosinophils (Bld) [#/Vol] 0.00 thou/cmm Low 0.04-0.54 [facility] Comment on above: Performed By: #### P T #### [facility] [address] [place], [place] [address] Eosinophils/100 WBC (Bld) 0.0 % Normal [facility] Comment on above: Performed By: #### P T #### [facility] [address] [place], [place] [address] Immature Grans 1.00 % Normal [facility] Comment on above: Performed By: #### P T #### [facility] [address] [place], [place] [address] Lymphocytes (Bld) [#/Vol] 0.39 thou/cmm Low 0.84-2.85 [facility] Comment on above: Performed By: #### P T #### [facility] [address] [place], [place] [address] Lymphocytes/100 WBC (Bld) 3.2 % Normal [facility] Comment on above: Performed By: #### P T #### [facility] [address] [place], [place] [address] Monocytes/100 WBC (Bld) 6.2 % Normal [facility] Comment on above: Performed By: #### P T #### [facility] [address] [place], [place] [address] Seg Neutrophil 89.5 % Normal [facility] Comment on above: Performed By: #### P T #### [facility] [address] [place], [place] [address] Erythrocyte distribution width (RBC) [Ratio] 13.8 % Normal 11.6-14.4 [facility] Comment on above: Performed By: #### P T #### [facility] [address] [place], [place] [address] Hematocrit (Bld) [Volume fraction] 42.8 % Normal 40.1-51.0 [facility] Comment on above: Performed By: #### P T #### [facility] [address] [place], [place] [address] Hemoglobin (Bld) [Mass/Vol] 14.5 g/dL Normal 13.7-17.5 [facility] Comment on above: Performed By: #### P T #### [facility] [address] [place] [address] MCH (RBC) [Entitic mass] 33.0 pg High 25.7-32.2 [facility] Comment on above: Performed By: #### P T #### [facility] [address] [place] [address] MCHC (RBC) [Mass/Vol] 33.9 % Normal 32.3-36.5 [facility] Comment on above: Performed By: #### P T #### [facility] [address] [place] [address] MCV (RBC) [Entitic vol] 97.5 fL High 83.2-95.6 [facility] Comment on above: Performed By: #### P T #### [facility] [address] [place] [address] Platelet mean volume (Bld) [Entitic vol] 9.8 fL Normal 8.7-12.0 [facility] Comment on above: Performed By: #### P T #### [facility] [address] [place] [address] Platelets (Bld) [#/Vol] 102 thou/cmm Low 141-365 [facility] Comment on above: Performed By: #### P T #### [facility] [address] [place] [address] RBC (Bld) [#/Vol] 4.39 mil/cmm Low 4.63-6.08 [facility] Comment on above: Performed By: #### P T #### [facility] [address] [place] [address] RDW SD 50.2 fl High 36.1-45.8 [facility] Comment on above: Performed By: #### P T #### [facility] [address] [address] WBC (Bld) [#/Vol] 12.34 thou/cmm High 4.23-9.07 [facility] Comment on above: Performed By: #### P T #### [facility] [address] [place], [place] [address] Ionized Calciumon 06-02-2019 Ionized Ca,PH7.4 4.28 mg/dL Low 4.61-5.17 [facility] Comment on above: Performed By: #### P T #### [facility] [address] [place], [place] [address] pH (Bld) 7.377 [pH] Normal 7.320-7.430 [facility] Comment on above: Performed By: #### P T #### [facility] [address] [place], [place] [address] Ionized Calcium 4.33 mg/dL Low 4.61-5.17 [facility] Comment on above: Performed By: #### P T #### [facility] [address] [place], [place] [address] Magnesium Bloodon 06-02-2019 Magnesium [Mass/Vol] 2.1 mg/dL Normal 1.6-2.6 [facility] Comment on above: Performed By: #### A PTT #### [address] [address] NURSING PROGon 06-02-2019 NURSING PROG HNO ID: [id number] Author: Liyah (Rn) GILBERTO Arellano Service: Nursing Author Type: Registered Nurse Type: Nursing Progress Note Filed: 06/02/2019 7:32 AM Note Text: Nursing Progress: Topic: RESTRAINT NON-VIOLENT PATIENT NAME: Rhoda Poon PATIENT LOCATION: [id number] [address] 0* The patient demonstrates Lack of Understanding/Ability to Comply with Safety Directions as evidenced by the following behaviors pt reaches for critical care equipment when unrestrained which pose an imminent danger to self or others. The following interventions were attempted but were not effective in protecting the patient's safety: Contraindicated - Imminent Safety Risk Next, a comprehensive assessment was performed and warranted placing the patient in Soft Bilateral Wrists, the least restrictive restraint needed to protect the patient's safety. Ongoing safety assessments and evaluation for earliest removal of restraints will be performed. DATE: June 02, 2019 TIME: 7:32 AM Liyah Arellano RN [facility] PLAN OF CAREon 06-02-2019 PLAN OF CARE HNO ID: [id number] Author: Marli Manzanares (Drafter (Cad) Electrical) Service: Pharmacy Author Type: ? Type: Plan of Care Filed: 06/03/2019 2:43 PM Note Text: Attestation signed by Vivien Smith (Pharmacist) at 06/04/2019 7:29 AM I agree with the update provided by the PharmD candidate. Per [facility], last filled chlordiazepoxide once in Sep 2017. Per [facility], last filled meds in January 2018. Discussed with patient's friend and he reported that patient may be taking amitriptyline 300 or 600mg/day, but uncertain. Unable to discuss with patient. MEDICATION HISTORY AND MEDICATION RECONCILIATION Patient Name:Vanesa Poon : 1970 Source of history:Pharmacy records: [facility] [phone] Medication Nonadherence Identified: Unable to assess The above information represents the best possible medication history: Incomplete Reconciliation completed? Yes All RESERVATION CLERK medications addressed by LIP Additional comments: Unable to talk to patient. Called his pharmacy and checked [facility] for recent fill history. [facility] states that they have not filled any of his medications in over year and he has no history on [facility]. I attempted to call patient's contact, Sahil, but the phone number gives a busy signal each time. [id number] Medication List Adjustments: Medications Removed: Albuterol HFA Amitriptyline 100 mg tablets - 2 tablets at bedtime Olanzapine ODT 10 mg - 1 tablet TID Pantoprazole 40 mg tablet - 1 tablet once daily Propranolol 40 mg tablet - 1 tablet once daily Ranitidine 300 mg tablet - 1 tablet BID Patient is a 30 day readmission: No Patient Interested in Bedside Delivery: Unable to assess Time Spent Reviewing Patient's Medications: 25 minutes Allergies: ALLERGIES Allergen Reactions - Amoxicillin Other: See Comments Fever blisters - Vicodin [Hydrocodon* Mental Status Change States has bad nightmares Preferred Pharmacy: [facility] (unable to fully assess) Current RESERVATION CLERK Medications: Prior to Admission medications as of 06/02/19 1705 Not on File Shama Mathew, Research Physiologist June 02, 2019 5:05 PM Addendum: I spoke with the patient's listed contact (Sahil, ) who stated that the patient had no active prescriptions and was not supposed to be taking anything. Sahil denies that the patient was taking any additional OTCs/herbs/supplements/ vitamins. However, Sahil reports that 1 week prior to hospital admission, the patient informed him that he had begun taking amitriptyline from his leftover stock at home. Per Sahil, the patient reported taking 300 mg once or twice daily (Sahil was unsure of frequency). Patient last filled amitriptyline 100 mg 2 tablets at bedtime as needed in January 2018. The med list is updated. Sahil also reported that the patient has an intolerance to codeine, which gives him nightmares. The allergy list has been updated. This allergy and medication should still be confirmed by the patient. Marli Manzanares (Drafter (Cad) Electrical) 06/03/2019 2:25 PM [facility] PROGRESSon 06-02-2019 PROGRESS HNO ID: [id number] Author: Ashley Alvarez (Destini) DESTINI Silver Service: Neurosurgery Author Type: Physician Electrolysis Needle Operator Type: Progress Notes Filed: 06/02/2019 9:37 AM Note Text: Neurosurgery Progress Note SERVICE DATE: 06/02/2019 SUBJECTIVE: DANA - GILBERTO reports word salad, restlessness OBJECTIVE: Vitals: Temp (24hrs), Av.7 ?C (98 ?F), Min:36.3 ?C (97.3 ?F), Max:36.9 ?C (98.4 ?F) BP 127/88 Pulse 93 Temp 36.5 ?C (97.7 ?F) (Temporal) Resp 21 Ht 172.7 cm (5' 7.99) Wt 81.5 kg (179 lb 10.8 oz) SpO2 89% BMI 27.33 kg/m? O2 Therapy: Nasal Cannula IANDO: Date 06/01/19 07 - 06/02/19 0659 06/02/19 07 - 06/03/19 0659 Shift 2250-2706 0986-6899 1107-5949 24 Hour Total 9178-7980 0036-6249 4888-9652 24 Hour Total INTAKE PO 50 50 PO 50 50 IV 1653 1653 448 448 NS 0.9% 1497 1497 403.8 403.8 Dexmedetomidine IV 156 156 44.2 44.2 Shift Total 1703 1703 448 448 OUTPUT Urine 1700 1700 0 0 Void (ml) 500 500 Straight cath (ml) 1200 1200 Output ( External Collection Device 06/02/19 0851) 0 0 Shift Total 1700 1700 0 0 Weight (kg) 81.6 81.5 81.5 81.5 81.5 81.5 81.5 MEDICATIONS Current Facility-Administered Medications Medication Dose Route Frequency - iv contrast (radiology procedure) INTRAVENOUS DIRECTED PRN - metoprolol 5 mg injection (LOPRESSOR) 5 mg INTRAVENOUS q 6 HR - iv contrast (radiology procedure) INTRAVENOUS DIRECTED PRN - iv contrast (radiology procedure) INTRAVENOUS DIRECTED PRN - OLANZapine orally disintegrating 10 mg tab(s) (ZyPREXA ZYDIS) 10 mg ORAL TID - potassium chloride ER 20-40 mEq tab(s) (K-DUR, KLOR-CON) 20-40 mEq ORAL/FEEDING TUBE PRN Or - potassium chloride iv piggyback 20 mEq/100 mL 20 mEq INTRAVENOUS PRN - magnesium sulfate in water 2 g in sterile water 50 ml 2 g INTRAVENOUS PRN - sodium phosphate 45 mmol in NaCl 0.9% 250 mL 45 mmol INTRAVENOUS PRN - calcium gluconate 4 g in NaCl 0.9% 250 mL 4 g INTRAVENOUS PRN - NaCl 0.9% 3-5 mL 3-5 mL INTRAVENOUS q 12 H - levETIRAcetam iv piggyback 1,000 mg in NaCl (iso-osmotic) 100 mL (KEPPRA) 1,000 mg INTRAVENOUS BID - NaCl 0.9% iv infusion 125 mL/hr INTRAVENOUS CONTINUOUS - ipratropium-albuterol 3 mL nebulizer solution (DUONEB) 3 mL INHALATION QID - lidocaine 5 % 1 Patch (LIDODERM) 1 Patch TRANSDERMAL DAILY AT 9 PM And - lidocaine patch - REMOVE OTHER DAILY And - lidocaine - VERIFY PATCH OTHER q 8 H - acetaminophen 975 mg tab(s) (TYLENOL) 975 mg ORAL q 6 H - oxyCODONE IR 5-10 mg tab(s) (ROXICODONE) 5-10 mg ORAL q 6 H PRN - morphine 2 mg injection 2 mg INTRAVENOUS q 4 H PRN - LORazepam 2 mg (ATIVAN) 2 mg ORAL q 1 H PRN Or - LORazepam 2 mg injection (ATIVAN) 2 mg INTRAVENOUS q 1 H PRN - LORazepam 4 mg (ATIVAN) 4 mg ORAL q 1 H PRN Or - LORazepam 4 mg injection (ATIVAN) 4 mg INTRAVENOUS q 1 H PRN - vitamin with folic acid 1 mg 1 tablet 1 tablet ORAL DAILY - folic acid 1 mg tab(s) 1 mg ORAL DAILY - thiamine 200 mg in NaCl 0.9% 50 mL 200 mg INTRAVENOUS q 8 H - dexmedetomidine 400 mcg in NaCl 0.9% 100 mL (PRECEDEX) 0.2-0.7 mcg/kg/hr INTRAVENOUS CONTINUOUS Labs: Recent Labs 06/02/19 0320 06/01/19 1651 NA 134* 134* K 3.7 3.8 CHLOR 103 100 CO2 24 27 BUN 4* 5* CREAT 0.41* 0.55* GLUC 141* 128* ANION 11 11 CA 7.9* 8.2* MG 2.1 -- P 3.2 -- ALB -- 3.0* AST -- 47* ALT -- 56 ALKPHOS -- 137* TBILI -- 1.0 WBC 12.34* 11.92* HB 14.5 15.4 HCT 42.8 45.8 PLT 102* 104* INR -- 0.97 Exam: GENERAL: No distress, Alert, very restless NEURO: receptive aphasia, occasionally will mimic movement; Moves BUE/RLE easily, LLE appears weak HEENT: normocephalic, atraumatic; pupils unequal, dilated and reactive LUNGS: Unlabored breathing ASSESSMENT AND PLAN: Active Hospital Problems Diagnosis Date Noted - Subdural hematoma (HCC) 06/01/2019 49 year old male ETOH, left large temporal IPH/SAH/SDH min IVH, min pneumocephalus - neuro - aphasic - CTH repeated and stable - nonsurgical mgt - [place] SIGNATURE: DESTINI Lobo PATIENT NAME: Rhoda Poon DATE: June 02, 2019 TIME: 9:32 AM Pager: [phone] [facility] PROGRESS HNO ID: [id number] Author: Rhoda Parisi Service: Trauma Author Type: Physician Type: Progress Notes Filed: 06/06/2019 11:49 AM Note Text: Trauma Progress Note SERVICE DATE: 06/02/2019 Trauma Service Pager: For questions or concerns Mon-Fri 6a-5p please page [phone]. After 5pm and on Weekends and Holidays, please page [phone] if in ICU or [phone] if on RNF. SUBJECTIVE: NAEON. Opens eyes to sternal rub. Does not follow commands OBJECTIVE: Vitals: Temp (24hrs), Av.7 ?C (98 ?F), Min:36.3 ?C (97.3 ?F), Max:36.9 ?C (98.4 ?F) BP 165/100 Pulse 80 Temp 36.5 ?C (97.7 ?F) (Temporal) Resp 20 Ht 172.7 cm (5' 7.99) Wt 81.5 kg (179 lb 10.8 oz) SpO2 97% BMI 27.33 kg/m? O2 Therapy: Nasal Cannula IANDO: Date 06/01/196[address] - 06/02/1965806/02/196[address] - 06/03/19 0659 Shift 1805-3263 0914-6385 1543-3045 24 Hour Total 2145-7281 2493-0872 7813-6703 24 Hour Total INTAKE PO 50 50 PO 50 50 IV 1653 1653 NS 0.9% 1497 1497 Dexmedetomidine IV 156 156 Shift Total 1703 1703 OUTPUT Urine 1700 1700 Void (ml) 500 500 Straight cath (ml) 1200 1200 Shift Total 1700 1700 Weight (kg) 81.6 81.5 81.5 81.5 81.5 81.5 81.5 MEDICATIONS Current Facility-Administered Medications Medication Dose Route Frequency - iv contrast (radiology procedure) INTRAVENOUS DIRECTED PRN - metoprolol 5 mg injection (LOPRESSOR) 5 mg INTRAVENOUS q 6 HR - iv contrast (radiology procedure) INTRAVENOUS DIRECTED PRN - iv contrast (radiology procedure) INTRAVENOUS DIRECTED PRN - OLANZapine orally disintegrating 10 mg tab(s) (ZyPREXA ZYDIS) 10 mg ORAL TID - potassium chloride ER 20-40 mEq tab(s) (K-DUR, KLOR-CON) 20-40 mEq ORAL/FEEDING TUBE PRN Or - potassium chloride iv piggyback 20 mEq/100 mL 20 mEq INTRAVENOUS PRN - magnesium sulfate in water 2 g in sterile water 50 ml 2 g INTRAVENOUS PRN - sodium phosphate 45 mmol in NaCl 0.9% 250 mL 45 mmol INTRAVENOUS PRN - calcium gluconate 4 g in NaCl 0.9% 250 mL 4 g INTRAVENOUS PRN - NaCl 0.9% 3-5 mL 3-5 mL INTRAVENOUS q 12 H - levETIRAcetam iv piggyback 1,000 mg in NaCl (iso-osmotic) 100 mL (KEPPRA) 1,000 mg INTRAVENOUS BID - NaCl 0.9% iv infusion 125 mL/hr INTRAVENOUS CONTINUOUS - ipratropium-albuterol 3 mL nebulizer solution (DUONEB) 3 mL INHALATION QID - lidocaine 5 % 1 Patch (LIDODERM) 1 Patch TRANSDERMAL DAILY AT 9 PM And - lidocaine patch - REMOVE OTHER DAILY And - lidocaine - VERIFY PATCH OTHER q 8 H - acetaminophen 975 mg tab(s) (TYLENOL) 975 mg ORAL q 6 H - oxyCODONE IR 5-10 mg tab(s) (ROXICODONE) 5-10 mg ORAL q 6 H PRN - morphine 2 mg injection 2 mg INTRAVENOUS q 4 H PRN - LORazepam 2 mg (ATIVAN) 2 mg ORAL q 1 H PRN Or - LORazepam 2 mg injection (ATIVAN) 2 mg INTRAVENOUS q 1 H PRN - LORazepam 4 mg (ATIVAN) 4 mg ORAL q 1 H PRN Or - LORazepam 4 mg injection (ATIVAN) 4 mg INTRAVENOUS q 1 H PRN - vitamin with folic acid 1 mg 1 tablet 1 tablet ORAL DAILY - folic acid 1 mg tab(s) 1 mg ORAL DAILY - thiamine 200 mg in NaCl 0.9% 50 mL 200 mg INTRAVENOUS q 8 H - dexmedetomidine 400 mcg in NaCl 0.9% 100 mL (PRECEDEX) 0.2-0.7 mcg/kg/hr INTRAVENOUS CONTINUOUS Labs: Recent Labs 06/02/19 0320 06/01/19 1651 NA 134* 134* K 3.7 3.8 CHLOR 103 100 CO2 24 27 BUN 4* 5* CREAT 0.41* 0.55* GLUC 141* 128* ANION 11 11 CA 7.9* 8.2* MG 2.1 -- P 3.2 -- ALB -- 3.0* AST -- 47* ALT -- 56 ALKPHOS -- 137* TBILI -- 1.0 WBC 12.34* 11.92* HB 14.5 15.4 HCT 42.8 45.8 PLT 102* 104* INR -- 0.97 PHYSICAL EXAM: Genl: No acute distress. Opens eyes to sternal rub. Head/Face: Normocephalic. Resp: Breathing is non-labored. CVS: RRR. GI: Abdomen is soft, non-tender, not distended. MSK: Restrained, no gross deformity Skin: Warm and dry. Neuro: Does not follow commands ASSESSMENT AND PLAN: Active Hospital Problems Diagnosis Date Noted - Subdural hematoma (HCC) 06/01/2019 49 y/o male found down and brought to outside ED, transferred to [facility] for intracranial bleed. Imaging performed: 1. CT head 2. CT neck 3. CT chest 4. CT abdomen/pelvis 5. PXR 6. CXR ? Traumatic Injuries: 1. Left posterolateral fifth rib fracture with adjacent lung contusions 2. Additional lung contusions vs infectious/inflammatory changes 3. There is an acute left occipital parietal temporal subdural hematoma estimated to measure approximately 5 mm maximal thickness. ?Small associated foci of internal gas. ?There is mild extension of subdural hemorrhage along the left tentorial leaflet. Rightward midline shift of 2mm. 4. Nondisplaced obliquely oriented overlying calvarial fracture 5. Subarachnoid hemorrhage ? Operations: 1. None ? Care Plan: 1. Admit to NSICU 2. NPO/IVF 3. Keppra 4. NSX consult 5. Q1 neuro checks 6. Repeat head CT is stable. 7. CIWA ? Prophylaxis: 1. DVT ppx: SCD, hold chemoprophylaxis Incidentals: 1. None ? Consulted Services and Recommendations: 1. SICU 2. NSX 3. PT/OT - (p) ? Dispo Plannin. NSICU ? Follow Up Needs: 1. TBD ? To be discussed with Dr. Parisi Trauma Service Pager: For questions or concerns Mon-Fri 6a-5p please page [phone]. After 5pm and on Weekends and Holidays, please page [phone] if in ICU or [phone] if on RNF. SIGNATURE: Raudel Martínez MD PATIENT NAME: Rhoda Poon DATE: June 02, 2019 TIME: 8:41 AM Attending Note I evaluated the patient and personally participated in the rojas components on 06/02/2019 I agree with the resident's findings and plan as documented and have discussed the case and management of the patient's care with the resident. Active Hospital Problems Diagnosis Date Noted - DTs (delirium tremens) ([facility]) 06/02/2019 - SAH (subarachnoid hemorrhage) ([facility]) 06/02/2019 - Closed fracture of one rib of left side 06/02/2019 - Closed fracture of vault of skull ([facility]) 06/02/2019 - Aphasia 06/02/2019 - Subdural hematoma ([facility]) 06/01/2019 - Bipolar affective disorder ([facility]) 12/21/2012 Overview Note: Diagnosed in ~1989 [place] Rhoda Parisi MD Department of General Surgery Section of Trauma, Surgery Critical Care, and Acute Care Surgery Delayed entry Normal [facility] Phosphorus Bloodon 9 Phosphate [Mass/Vol] 3.2 mg/dL Normal 2.5-4.9 [facility] Comment on above: Performed By: #### A PTT #### [facility] [address] [address] XR ABDOMEN 1V SUPINEon 06-02 XR ABDOMEN 1V SUPINE * * *Final Report* * * DATE OF EXAM: Jun 02 2019 2:28PM [id number] [id number] - XR ABDOMEN 1V SUPINE / PROCEDURE REASON: Evaluate tube, line or lead position * * * * Physician Interpretation * * * * ABDOMEN , one view DATE: 06/02/2019 2:28 PM HISTORY: Evaluate tube, line or lead position ENCOUNTER: Not applicable COMPARISON: CT examination of the abdomen and pelvis with contrast dated 06/01/2019. TECHNIQUE: Supine abdomen, 1 image(s) FINDINGS: Placement of feeding tube with tip overlying the mid aspect of the gastric body. No dilated bowel loops or discrete intraperitoneal portal venous gas. Cholecystectomy clips noted. Lung bases clear.. IMPRESSION: PLACEMENT OF FEEDING TUBE WITH TIP OVERLYING THE MID ASPECT OF THE GASTRIC BODY. 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: HUGO Transcribe Date/Time: Jun 02 2019 3:07P Dictated by : JOSELUIS MOISE MD This examination was interpreted and the report reviewed and electronically signed by: JOSELUIS MOISE MD on Jun 02 2019 3:09PM EST Normal [facility] ALLIED HEALTHon 06-01-2019 ALLIED HEALTH HNO ID: [id number] Author: Brii Wood) Chaplain Carmel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 and right shoulder is non-tender to palpation, Forearm/Elbow normal bilaterally, Hand/Wrist normal bilaterally and left hand with abrasions to the dorsal 1st and 2nd digits., Thigh/Hip normal bilaterally, Leg/Knee normal bilaterally, Foot/Ankle normal bilaterally RADIOLOGICAL/OTHER TEST DATA: See below PRIOR TO ARRIVAL: Loss of Consciousness Unknown IMAGES XR CHEST 1V FRONTAL Final Result IMPRESSION: Bilateral patchy groundglass opacities are better visualized on concurrent CT chest. 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: HUGO Transcribe Date/Time: Jun 01 2019 5:50P Dictated by : MILAN FERGUSON MD This examination was interpreted and the report reviewed and electronically signed by: MILAN FERGUSON MD on Jun 01 2019 5:52PM EST XR PELVIS 1V AP Final Result IMPRESSION: No acute findings in the pelvis. 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: HUGO Transcribe Date/Time: Jun 01 2019 5:52P Dictated by : MILAN FERGUSON MD This examination was interpreted and the report reviewed and electronically signed by: MILAN FERGUSON MD on Jun 01 2019 5:52PM EST CT CHEST W IVCON Final Result IMPRESSION: Cortical irregularity at left posterolateral fifth rib with adjacent parenchymal opacity, likely representing rib fracture with lung contusion. Additional ground glass opacities in the right upper and lower lobes may represent parenchymal contusion versus infectious/inflammatory changes like aspiration. No acute/post traumatic findings in the abdomen and pelvis. 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: [facility] Transcribe Date/Time: Jun 01 2019 5:33P Dictated by : MILAN FERGUSON MD This examination was interpreted and the report reviewed and electronically signed by: MILAN FERGUSON MD on Jun 01 2019 5:48PM EST CT ABD/PEL W IVCON Final Result IMPRESSION: Cortical irregularity at left posterolateral fifth rib with adjacent parenchymal opacity, likely representing rib fracture with lung contusion. Additional ground glass opacities in the right upper and lower lobes may represent parenchymal contusion versus infectious/inflammatory changes like aspiration. No acute/post traumatic findings in the abdomen and pelvis. 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: [facility] Transcribe Date/Time: Jun 01 2019 5:33P Dictated by : MILAN FERGUSON MD This examination was interpreted and the report reviewed and electronically signed by: MILAN FERGUSON MD on Jun 01 2019 5:48PM EST CT BRAIN WO IVCON Final Result IMPRESSION: Acute left temporal occipital region subdural hematoma estimated to measure approximately 5 mm in maximal thickness, associated with a few small foci of gas. Adjacent nondisplaced overlying calvarial fracture. Coexisting left temporal lobe parenchymal hemorrhage and multifocal subarachnoid hemorrhage as noted above. Associated mass effect including 2 mm rightward midline shift. Partial opacification of the left mastoid air cells and middle ear cavity. Occult temporal bone fracture cannot be excluded. Findings discussed with Dr. Tao approximately 5:20 PM, 06/01/2019. 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: [facility] Transcribe Date/Time: Jun 01 2019 5:11P Dictated by : WOLFGANG CANELA MD This examination was interpreted and the report reviewed and electronically signed by: WOLFGANG CANELA MD on Jun 01 2019 5:36PM EST CT CERVICAL SPINE WO IVCON Final Result IMPRESSION: No evidence of acute cervical spine fracture. Acute left temporal bone fracture as noted associated with subtotal opacification of the left mastoid air cells and middle ear cavity. Anatomic Variant: None. Assume 7 cervical vertebrae with counting from the craniocervical junction. 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: [facility]GO Transcribe Date/Time: Jun 01 2019 5:19P Dictated by : WOLFGANG CANELA MD This examination was interpreted and the report reviewed and electronically signed by: WOLFGANG CANELA MD on Jun 01 2019 5:45PM EST CT BRAIN WO IVCON (Results Pending) LABS: CBC, Coags, BMP, Mg, Phos Recent Labs 06/01/19 1651 WBC 11.92* HB 15.4 HCT 45.8 PLT 104* INR 0.97 APTT 26.2 NA 134* K 3.8 CHLOR 100 CO2 27 BUN 5* CREAT 0.55* GLUC 128* CA 8.2* Liver Function, Amylase, AND Lipase Recent Labs 06/01/19 1651 TPROT 6.6 ALB 3.0* ALT 56 AST 47* ALKPHOS 137* TBILI 1.0 AMYLASE 47 LIPASE 86 Assessment/Plan TREATMENT/EVALUATION PLANS: Imaging performed: 1. CT head 2. CT neck 3. CT chest 4. CT abdomen/pelvis 5. PXR 6. CXR Traumatic Injuries: 1. Left posterolateral fifth rib fracture with adjacent lung contusions 2. Additional lung contusions vs infectious/inflammatory changes 3. There is an acute left occipital parietal temporal subdural hematoma estimated to measure approximately 5 mm maximal thickness. ?Small associated foci of internal gas. ?There is mild extension of subdural hemorrhage along the left tentorial leaflet. Rightward midline shift of 2mm. 4. Nondisplaced obliquely oriented overlying calvarial fracture 5. Subarachnoid hemorrhage Operations: 1. None Care Plan: 1. Admit to NSICU 2. NPO/IVF 3. Keppra 4. NSX consult 5. Q1 neuro checks 6. Repeat head CT in AM 7. CIWA Prophylaxis: 1. DVT ppx: SCD, hold chemoprophylaxis Incidentals: 1. None Consulted Services and Recommendations: 1. SICU 2. NSX 3. PT/OT - (p) Dispo Plannin. NSICU Follow Up Needs: 1. TBD ED DISPOSITION: To ICU FINAL INJURIES: No new injuries were identified after physical examination and review of final radiological reading(s) of all studies. SIGNATURE: Henok Kwong DO PATIENT NAME: Rhoda Poon DATE: June 01, 2019 TIME: 5:07 PM PAGER/CONTACT #: Trauma Service Pager: For questions or concerns Mon-Sun 6a-5p please page [phone]. After 5pm and on Weekends and Holidays, please page [phone] if in ICU or [phone] if on RNF. Trauma Attending Note I have personally seen and evaluated this patient and participated in the rojas components of this encounter. I discussed the management of this case with the surgery resident team and independently confirmed the findings and plan of care as documented either attached or in their separate note from today. Any corrections or additional notes are made as needed. I evaluated the patient on June 01, 2019 and 1640 pm. Assessment and Plan: Rhoda Poon is a 49 year old male evaluated following a Level 2 activation for found down/fall The patient was evaluated according to ATLS protocols. Injuries and diagnoses are notable for: Fall/found down Possible seizure L SDH, 2 mm midline shift SAH Calvarial fracture Rib fracture Pulmonary contusion Admit, SICU consult, Neurosurgery consult, monitor for alcohol withdrawal, EKG, troponin, CIWA monitoring, Keppra, frequent neurochecks, interval CT head, close BP management, Rhoda Parisi MD Department of General Surgery Section of Trauma, Surgery Critical Care, and Acute Care Surgery Delayed entry Normal [facility] Hemogramon 06-01-2019 Erythrocyte distribution width (RBC) [Ratio] 14.2 % Normal 11.6-14.4 [facility] Comment on above: Performed By: #### C BC1 #### [address] [address] Hematocrit (Bld) [Volume fraction] 45.8 % Normal 40.1-51.0 [facility] Comment on above: Performed By: #### C BC1 #### [address] [address] Hemoglobin (Bld) [Mass/Vol] 15.4 g/dL Normal 13.7-17.5 [facility] Comment on above: Performed By: #### C BC1 #### [address] [address] MCH (RBC) [Entitic mass] 32.8 pg High 25.7-32.2 [facility] Comment on above: Performed By: #### C BC1 #### [address] [address] MCHC (RBC) [Mass/Vol] 33.6 % Normal 32.3-36.5 [facility] Comment on above: Performed By: #### C BC1 #### [facility] [address] [place] [address] MCV (RBC) [Entitic vol] 97.7 fL High 83.2-95.6 [facility] Comment on above: Performed By: #### C BC1 #### [facility] [address] [place] [address] Platelet mean volume (Bld) [Entitic vol] 9.8 fL Normal 8.7-12.0 [facility] Comment on above: Performed By: #### C BC1 #### [place] [address] Platelets (Bld) [#/Vol] 104 thou/cmm Low 141-365 [facility] Comment on above: Performed By: #### C BC1 #### [place] [address] RBC (Bld) [#/Vol] 4.69 mil/cmm Normal 4.63-6.08 [facility] Comment on above: Performed By: #### C BC1 #### [place] [address] RDW SD 51.4 fl High 36.1-45.8 [facility] Comment on above: Performed By: #### C BC1 #### [facility] [address] [place] [address] WBC (Bld) [#/Vol] 11.92 thou/cmm High 4.23-9.07 [facility] Comment on above: Performed By: #### C BC1 #### [facility] [address] [place] [address] Lipase Bloodon 06-01-2019 Lipase Blood 86 U/L Normal 73-393 [facility] Comment on above: Performed By: #### L IP #### [place] [address] MRSA Screenon 06-01-2019 MRSA DNA MARCUS+probe Ql (Unsp spec) Test performed at [facility] No MRSA detected. Normal [facility] Comment on above: Performed By: #### A PTT #### [facility] [address] [place] [phone] NURSING PROGon 06-01-2019 NURSING PROG HNO ID: [id number] Author: Kala LucasRn) GILBERTO Castorena Service: ? Author Type: Registered Nurse Type: Nursing Progress Note Filed: 06/06/2019 7:40 PM Note Text: Nursing Progress: Topic: RESTRAINT VIOLENT PATIENT NAME: Rhoda Poon PATIENT LOCATION: [place] [address]/[place] [address] 0* The patient demonstrates Combative Behavior, Risk of Harm to Self, Risk of Harm to Others as evidenced by the following behaviors physical aggression towards staff, inability to be redirected which pose an imminent danger to self or others. The following interventions were attempted but were not effective in protecting the patient's safety: Escalated Too Quickly for Alternative Intervention Next, a comprehensive assessment was performed and warranted placing the patient in Hard Right Wrist, Hard Right Ankle, Hard Left Wrist, Hard Left Ankle, the least restrictive restraint needed to protect the patient's safety. Ongoing safety assessments and evaluation for earliest removal of restraints will be performed. DATE: June 06, 2019 TIME: 7:36 PM Kala Castorena RN Normal [facility] PROGRESSon 06-01-2019 PROGRESS HNO ID: [id number] Author: Chavez Bennett Service: Neurosurgery Author Type: Physician Type: Progress Notes Filed: 06/01/2019 9:39 PM Note Text: Neurosurgery Called about worsening agitation. Ok to proceed with moderate sedation for EtOH withdrawal Repeat CT head reviewed Blossoming of Left posterior temporal contusion/ICH. It is close to eloquent speech cortex, and evacuation may produce worsening neurological deficit - aphasia. Will maximize medical management. At present, moderate temporal swelling. No evidence of uncal herniation . - repeat CT head in am - q1h pupil checks - keep SBP less than 160 Chavez Bennett MD Neurosurgery Pager [phone] June 01, 2019 9:39 PM Normal [facility] Protimeon 06-01-2019 INR Coag (PPP) [Relative time] 0.97 {INR} Normal 0.90-1.30 [facility] Comment on above: Result Comment: Shelby min K Antagonist (VKA) Therapeutic Range: INR 2 to 3 (Target INR of 2.5) Note: For patients treated with VKA drugs, such as warfarin, the [place] [employer] 2012 Guideline recommends a therapeutic INR range of 2 to 3 (target INR of 2.5). This recommendation includes high-risk patients with antiphospholipid syndrome with previous arterial or venous thromboembolism, current-generation mechanical or bioprosthetic aortic heart valve replacement. Note: Patients with mechanical aortic valve replacement and additional risk factors for thromboembolic events (atrial fibrillation, previous thromboembolism, LV dysfunction, hypercoagulable conditions) or an older generation mechanical AVR (i.e., ball in-Cage) or any mechanical MVR should have a INR therapeutic range of 2.5 to 3.5 target INR of 3). Matthew HSIEH, et al. Chest 2012; 141:7S-47S Shaji RA et al. [facility] 2017; 70: 252-289 Performed By: #### P T #### [place] [address] PT Coag (PPP) [Time] 10.5 s Normal 9.7-13.0 [facility] Comment on above: Performed By: #### P T #### [place] [address] Type and Screenon 06-01-2019 ABO group Nom (Bld) O Normal [facility] Comment on above: Performed By: #### P T #### [place] [address] Comment See Below Normal [facility] Comment on above: Result Comment: Scre en &/or Xmatch expires in 3 days at 12 midnight. Redraw patient at that time. Performed By: #### P T #### [place] [address] RH Type Positive Normal [facility] Comment on above: Performed By: #### P T #### [place] [address] Ur/Serum Drug Screenon 06-01 Urine Amphetamine Non-detected Normal Non-Detected [facility] Comment on above: Performed By: #### D RUG3 #### [facility] [address] [place], [place] [address] Urine Barbiturates Non-detected Normal Non-Detected [facility] Comment on above: Performed By: #### D RUG3 #### [facility] [address] [place], [place] [address] Urine Benzodiazepine Non-detected Normal Non-Detected [facility] Comment on above: Performed By: #### D RUG3 #### [facility] [address] [place] [address] Urine Cocaine Metab Non-detected Normal Non-Detected A [facility] Comment on above: Performed By: #### D RUG3 #### [facility] [address] [place] [address] Urine Opiate Non-detected Normal Non-Detected [facility] Comment on above: Performed By: #### D RUG3 #### [facility] [address] [place] [address] Urine PCP Non-detected Normal Non-Detected [facility] Comment on above: Performed By: #### D RUG3 #### [facility] [address] [place] [address] Urine THC see below Normal Non-Detected [facility] Comment on above: Result Comment: Selena cted (unconfirmed) Urine Drug Cutoff Levels Urine Amphetamine 500 ng/mL Urine Barbiturate 200 ng/mL Urine Benzodiazepines 200 ng/mL Urine Cocaine 150 ng/mL Urine Phencyclidine (PCP) 25 ng/mL Urine Opiates 300 ng/mL Urine THC 50 ng/mL The results of these analytes are unconfirmed and reported qualitatively as detected or non-detected relative to the cutoff value. Detected results indicate the sample is likely to contain the analyte. Non-detected results indicate that either the sample does not contain the analyte or it is present in concentrations below the cutoff level. This drug screen should be used for medical diagnostic purposes only. Performed By: #### D RUG3 #### [facility] [address] [place] [address] Acetaminophen [Mass/Vol] < 2.0 Low 10.0-30.0 [facility] Comment on above: Performed By: #### D RUG3 #### [facility] [address] [place] [address] Serum Alcohol < 3 Normal [facility] Comment on above: Performed By: #### D RUG3 #### [facility] [address] [place] [address] Serum Salicylate 4.0 mg/dL Normal 2.8-20.0 [facility] Comment on above: Performed By: #### D RUG3 #### [facility] [address] [place] [address] Urinalysis Routineon 019 Bacteria LM.HPF (Urine sed) [#/Area] NONE Normal None [facility] Comment on above: Performed By: #### P T #### [facility] [address] [place] [address] Ep Cells Urine 0.5 /hpf Normal 0.0-5.0 [facility] Comment on above: Performed By: #### P T #### [place] [address] Hyaline Cast 0.0 /lpf Normal 0.0-1.0 [facility] Comment on above: Performed By: #### P T #### [place] [address] RBC LM.HPF (Urine sed) [#/Area] 1.4 /[HPF] Normal 0.0-5.0 [facility] Comment on above: Performed By: #### P T #### [place] [address] WBC LM.HPF (Urine sed) [#/Area] 0.9 /[HPF] Normal 0.0-5.0 [facility] Comment on above: Performed By: #### P T #### [place] [address] Appearance (U) CLEAR Normal [facility] Comment on above: Performed By: #### P T #### [place] [address] Bilirubin (U) [Mass/Vol] Negative Normal Negative [facility] Comment on above: Performed By: #### P T #### [facility] [address] [place] [address] Color (U) YELLOW Normal [facility] Comment on above: Performed By: #### P T #### [facility] [address] [place] [address] Glucose Ql (U) Negative Normal Negative [facility] Comment on above: Performed By: #### P T #### [facility] [address] [place] [address] Hemoglobin,Urine Negative Normal Negative [facility] Comment on above: Performed By: #### P T #### [facility] [address] [place] [address] Ketone Urine Negative Normal Negative [facility] Comment on above: Performed By: #### P T #### [facility] [address] [place] [address] Leukocytes Esterase Negative Normal Negative [facility] Comment on above: Performed By: #### P T #### [facility] [address] [place] [address] Nitrites Urine Negative Normal Negative [facility] Comment on above: Performed By: #### P T #### [facility] [address] [place] [address] pH (U) 8.0 [pH] Normal 5.0-8.0 [facility] Comment on above: Performed By: #### P T #### [place] [address] Protein (U) [Mass/Vol] Negative Normal Negative [facility] Comment on above: Performed By: #### P T #### [facility] [address] [place] [address] Specific [place], Ur 1.029 Normal 1.005-1.030 [facility] Comment on above: Performed By: #### P T #### [facility] [address] [place] [address] Urobilinogen,Ur 0.2 EU/dL Normal 0.2-1.0 [facility] Comment on above: Performed By: #### P T #### [address] [place], [place] [address] XR CHEST 1V FRONTALon 2018 XR CHEST 1V FRONTAL * * *Final Report* * * DATE OF EXAM: Jun 01 2019 5:45PM [id number] 5290 - XR CHEST 1V FRONTAL / PROCEDURE REASON: Chest pain or SOB, pleurisy or effusion suspected * * * * Physician Interpretation * * * * EXAMINATION: CHEST RADIOGRAPH (SINGLE VIEW AP OR PA) CLINICAL HISTORY: Chest pain or SOB, pleurisy or effusion suspected MQ: [id number] Comparison: Chest radiograph 08/22/2013 RESULT: Lines, tubes, and devices: None. Lungs and pleura: Patchy ground glass opacity in the right lung base and left lateral midlung field are patent visualized on concurrent CT chest. No significant pleural effusion. Cardiomediastinal silhouette: Normal cardiomediastinal silhouette. Other: . IMPRESSION: Bilateral patchy groundglass opacities are better visualized on concurrent CT chest. 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: HUGO Transcribe Date/Time: Jun 01 2019 5:50P Dictated by : MILAN FERGUSON MD This examination was interpreted and the report reviewed and electronically signed by: MILAN FERGUSON MD on Jun 01 2019 5:52PM EST Normal [facility] XR PELVIS 1V APon 06-01-2019 XR PELVIS 1V AP * * *Final Report* * * DATE OF EXAM: Jun 01 2019 5:45PM AKX 5239 - XR PELVIS 1V AP / PROCEDURE REASON: Pelvic fx, follow up * * * * Physician Interpretation * * * * EXAMINATION: XR PELVIS 1V AP CLINICAL HISTORY: Pelvic fx, follow up Technique: XR PELVIS 1V AP -- NOT APPLICABLE pelvis with 1 views on 2 images Comparison: Concurrent CT abdomen pelvis RESULT: No acute fracture or dislocation. Normal alignment. No significant degenerative changes. No suspicious osseous lesions. Unremarkable soft tissue. IMPRESSION: No acute findings in the pelvis. 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: [facility] Transcribe Date/Time: Jun 01 2019 5:52P Dictated by : MILAN FERGUSON MD This examination was interpreted and the report reviewed and electronically signed by: MILAN FERGUSON MD on Jun 01 2019 5:52PM EST Normal [facility] Phenobarbitalon 10-30-2017 Phenobarbital 18.8 ug/mL Normal 15.0-40.0 [facility] Comment on above: Performed By: #### C BCDIF, UA, GBCHEM, GBTSH, HIV12, MG, PT, RPR ####[facility] [id number], [place] [phone] RPRon 10-30-2017 Reagin antibody presence Nonreactive Normal Nonreactive [facility] Comment on above: Performed By: #### C BCDIF, UA, GBCHEM, GBTSH, HIV12, MG, PT, RPR ####[facility] Epk18216 [address], [place] [phone] Phenobarbitalon 10-29-2017 Phenobarbital 18.1 ug/mL Normal 15.0-40.0 [facility] Comment on above: Performed By: #### C BCDIF, UA, GBCHEM, GBTSH, HIV12, MG, PT, RPR ####[facility] Cog71143 [address], [place] [phone] Phenobarbitalon 10-28-2017 Phenobarbital 15.9 ug/mL Normal 15.0-40.0 [facility] Comment on above: Performed By: #### C BCDIF, UA, GBCHEM, GBTSH, HIV12, MG, PT, RPR ####[facility] Pxx47998 [address], [place] [phone] Basic Metabolicon 10-27-2017 Anion gap 13 mmol/L Normal 0-15 [facility] Comment on above: Performed By: #### B MP, PHEN ####[facility] Tec25[address], [place] [phone] Calcium 9.6 mg/dL Normal 8.4-10.2 [facility] Comment on above: Performed By: #### B MP, PHEN ####[facility] Iqg21549 [address], [place] [phone] Chloride 100 mmol/L Normal 98-107 [facility] Comment on above: Performed By: #### B MP, PHEN ####[facility] Xrk85750 [address], [place] [phone] CO2 29 mmol/L Normal 22-30 [facility] Comment on above: Performed By: #### B MP, PHEN ####[facility] [address] [place], [place] [phone] Creatinine 0.61 mg/dL Low 0.66-1.25 [facility] Comment on above: Performed By: #### B MP, PHEN ####[facility] Nrf81500 [facility], [place] [phone] eGFR (non-black) mL/min/{1.73_m2} Normal >60 [facility] Comment on above: Performed By: #### B MP, PHEN ####[facility] Bjw12890 [place] [facility], [place] [phone] Result Comment: MDRD calculation used for eGFR results. Glucose mass conc 91 mg/dL Normal 74-106 [facility] Comment on above: Performed By: #### B MP, PHEN ####[facility] Idz37466 [place] [facility], [place] [phone] Sodium 138 mmol/L Normal 137-145 [facility] Comment on above: Performed By: #### B MP, PHEN ####[facility] Njg54547 [place], [place] [phone] Urea nitrogen 4 mg/dL Low 9-20 [facility] Comment on above: Performed By: #### B MP, PHEN ####[facility] Smc43343 [place] [facility], [place] [phone] Potassium molar conc 3.8 mmol/L Normal 3.5-5.1 [facility] Comment on above: Performed By: #### B MP, PHEN ####[facility] Fxz92323 [place] HealthJinardmic, [place] [phone] Phenobarbitalon 10-27-2017 Phenobarbital 14.1 ug/mL Low 15.0-40.0 [facility] Comment on above: Performed By: #### B MP, PHEN ####[facility] Cgq[address], [place] [phone] CBCDIFon 10-26-2017 Abs Baso 0.05 k/uL Normal 0-0.2 [facility] Comment on above: Performed By: #### C BCDIF, UA, GBCHEM, GBTSH, HIV12, MG, PT, RPR ####[facility] Fuy52204 [address], [place] [phone] Abs [place] 0.74 k/uL Normal 0-0.8 [facility] Comment on above: Performed By: #### C BCDIF, UA, GBCHEM, GBTSH, HIV12, MG, PT, RPR ####[facility] Pet68049 [address], [place] [phone] Abs Neut 5.75 k/uL Normal 1.8-7.7 [facility] Comment on above: Performed By: #### C BCDIF, UA, GBCHEM, GBTSH, HIV12, MG, PT, RPR ####[facility] Xyw38928 [address], [place] [phone] Basophils/100 WBC Auto (Bld) 0.6 % Normal 0-1 [facility] Comment on above: Performed By: #### C BCDIF, UA, GBCHEM, GBTSH, HIV12, MG, PT, RPR ####[facility] Clinical Ujx[address]67 [address], [place] [phone] Eosinophils 0.21 10*3/uL Normal 0-0.4 [facility] Comment on above: Performed By: #### C BCDIF, UA, GBCHEM, GBTSH, HIV12, MG, PT, RPR ####[facility] Qjq11691 [address], [place] [phone] Eosinophils/100 leukocytes 2.4 % Normal 0-4 [facility] Comment on above: Performed By: #### C BCDIF, UA, GBCHEM, GBTSH, HIV12, MG, PT, RPR ####[facility] Clinical Rnd05879 [address], [place] [phone] Erythrocyte distribution width Auto Ratio (RBC) 14.7 % High 11.5-14.5 [facility] Comment on above: Performed By: #### C BCDIF, UA, GBCHEM, GBTSH, HIV12, MG, PT, RPR ####[facility] Clinical Xfq17299 [address]Fall [facility] Hospitalrdon, [place] [phone] Erythrocytes (RBC) 4.42 10*6/uL Low 4.50-5.90 [facility] Comment on above: Performed By: #### C BCDIF, UA, GBCHEM, GBTSH, HIV12, MG, PT, RPR ####[facility] Clinical Chv78611 [address] RdFall [facility] Hospitalrdon, [place] [phone] Erythrocytes (RBC) 0 /100 WBC Normal 0-0.9 [facility] Comment on above: Performed By: #### C BCDIF, UA, GBCHEM, GBTSH, HIV12, MG, PT, RPR ####[facility] Clinical Cmg38998 [address]Fall [facility] Hospitalrdon, [place] [phone] Hematocrit (HCT) 44.7 % Normal 41.0-53.0 [facility] Comment on above: Performed By: #### C BCDIF, UA, GBCHEM, GBTSH, HIV12, MG, PT, RPR ####[facility] Clinical Iht08353 [address] RdFall River [facility] Hospitalrdon, [place] [phone] Hemoglobin mass conc (Bld) 15.2 g/dL Normal 13.5-17.5 [facility] Comment on above: Performed By: #### C BCDIF, UA, GBCHEM, GBTSH, HIV12, MG, PT, RPR ####[facility] Vkp49119 [address], [place] [phone] Immature Gran 0.20 % Normal 0-1.9 [facility] Comment on above: Performed By: #### C BCDIF, UA, GBCHEM, GBTSH, HIV12, MG, PT, RPR ####[facility] Yoi49650 [address], [place] [phone] Lymphocytes 2.03 10*3/uL Normal 1.0-4.0 [facility] Comment on above: Performed By: #### C BCDIF, UA, GBCHEM, GBTSH, HIV12, MG, PT, RPR ####[facility] Gqj50978 [address], [place] [phone] Lymphocytes/100 leukocytes 23.1 % Normal 22-44 [facility] Comment on above: Performed By: #### C BCDIF, UA, GBCHEM, GBTSH, HIV12, MG, PT, RPR ####[facility] Qub48257 [address], [place] [phone] MCH 34.4 pG High 26-34 [facility] Comment on above: Performed By: #### C BCDIF, UA, GBCHEM, GBTSH, HIV12, MG, PT, RPR ####[facility] Unc68274 [address], [place] [phone] MCHC mass conc (RBC) 34.0 g/dL Normal 31-37 [facility] Comment on above: Performed By: #### C BCDIF, UA, GBCHEM, GBTSH, HIV12, MG, PT, RPR ####[facility] Pke49158 [address], [place] [phone] MCV 101.1 fL High 80-100 [facility] Comment on above: Performed By: #### C BCDIF, UA, GBCHEM, GBTSH, HIV12, MG, PT, RPR ####[facility] Bmy08996 [address], [place] [phone] Monocytes/100 leukocytes 8.4 % Normal 4-12 [facility] Comment on above: Performed By: #### C BCDIF, UA, GBCHEM, GBTSH, HIV12, MG, PT, RPR ####[facility] Xon98628 [address], [place] [phone] Neutrophils/100 WBC Auto (Bld) 65.3 % Normal 40-70 [facility] Comment on above: Performed By: #### C BCDIF, UA, GBCHEM, GBTSH, HIV12, MG, PT, RPR ####[facility] Xrw41126 [address], [place] [phone] Platelets 206 10*3/uL Normal 150-450 [facility] Comment on above: Performed By: #### C BCDIF, UA, GBCHEM, GBTSH, HIV12, MG, PT, RPR ####[facility] Bpt32084 [address] RdFall [facility] Hospitalrdon, [place] [phone] WBC (Leukocytes) 8.80 10*3/uL Normal 4.5-11.0 [facility] Comment on above: Performed By: #### C BCDIF, UA, GBCHEM, GBTSH, HIV12, MG, PT, RPR ####[facility] Uwn34557 [address], [place] [phone] [facility] Prof 2017 Alanine aminotransferase (ALT) 24 U/L Normal 21-72 [facility] Comment on above: Performed By: #### C BCDIF, UA, GBCHEM, GBTSH, HIV12, MG, PT, RPR ####[facility] Dow78467 [address], [place] [phone] Albumin 4.0 g/dL Normal 3.5-5.0 [facility] Comment on above: Performed By: #### C BCDIF, UA, GBCHEM, GBTSH, HIV12, MG, PT, RPR ####[facility] Exm92317 [address], [place] [phone] Alkaline Phos 65 U/L Normal 38-125 [facility] Comment on above: Performed By: #### C BCDIF, UA, GBCHEM, GBTSH, HIV12, MG, PT, RPR ####[facility] Klo74110 [address], [place] [phone] Amylase 69 U/L Normal 30-110 [facility] Comment on above: Performed By: #### C BCDIF, UA, GBCHEM, GBTSH, HIV12, MG, PT, RPR ####[facility] Tpc97996 [address], [place] [phone] Anion gap 17 mmol/L High 0-15 [facility] Comment on above: Performed By: #### C BCDIF, UA, GBCHEM, GBTSH, HIV12, MG, PT, RPR ####[facility] Aox00015 [address], [place] [phone] Aspartate aminotransferase (AST) 39 U/L Normal 17-59 [facility] Comment on above: Performed By: #### C BCDIF, UA, GBCHEM, GBTSH, HIV12, MG, PT, RPR ####[facility] Fhs73938 [address], [place] [phone] Bilirubin Ql (U) 1.3 mg/dL Normal 0.2-1.3 [facility] Comment on above: Performed By: #### C BCDIF, UA, GBCHEM, GBTSH, HIV12, MG, PT, RPR ####[facility] Euj43662 [address], [place] [phone] Calcium 9.2 mg/dL Normal 8.4-10.2 [facility] Comment on above: Performed By: #### C BCDIF, UA, GBCHEM, GBTSH, HIV12, MG, PT, RPR ####[facility] Iff46819 [address], [place] [phone] Chloride 97 mmol/L Low 98-107 [facility] Comment on above: Performed By: #### C BCDIF, UA, GBCHEM, GBTSH, HIV12, MG, PT, RPR ####[facility] Zff85293 [address], [place] [phone] Cholesterol 156 mg/dL Normal 100-199 [facility] Comment on above: Performed By: #### C BCDIF, UA, GBCHEM, GBTSH, HIV12, MG, PT, RPR ####[facility] Aoe49045 [address]Fall [facility] Hospitalrdon, [place] [phone] CO2 25 mmol/L Normal 22-30 [facility] Comment on above: Performed By: #### C BCDIF, UA, GBCHEM, GBTSH, HIV12, MG, PT, RPR ####[facility] Zmt35741 [facility], [place] [phone] Creatinine 0.66 mg/dL Normal 0.66-1.25 [facility] Comment on above: Performed By: #### C BCDIF, UA, GBCHEM, GBTSH, HIV12, MG, PT, RPR ####[facility] Myf06333 [facility], [place] [phone] eGFR (non-black) mL/min/{1.73_m2} Normal >60 [facility] Comment on above: Performed By: #### C BCDIF, UA, GBCHEM, GBTSH, HIV12, MG, PT, RPR ####[facility] [id number] [facility], [place] [phone] Result Comment: MDRD calculation used for eGFR results. GGT 540 U/L High 15-73 [facility] Comment on above: Performed By: #### C BCDIF, UA, GBCHEM, GBTSH, HIV12, MG, PT, RPR ####[facility] [id number]Fall [facility] Hospitalrdon, [place] [phone] Glucose mass conc 149 mg/dL High 74-106 [facility] Comment on above: Performed By: #### C BCDIF, UA, GBCHEM, GBTSH, HIV12, MG, PT, RPR ####[facility] [id number]Fall River [facility] Hospitalrdon, [place] [phone] LDH 573 U/L Normal 318-618 [facility] Comment on above: Performed By: #### C BCDIF, UA, GBCHEM, GBTSH, HIV12, MG, PT, RPR ####[facility] [id number], [place] [phone] Phosphate 2.6 mg/dL Normal 2.5-4.5 [facility] Comment on above: Performed By: #### C BCDIF, UA, GBCHEM, GBTSH, HIV12, MG, PT, RPR ####[facility] Clinical [id number] [address]J[place], [place] [phone] Potassium molar conc 3.3 mmol/L Low 3.5-5.1 [facility] Comment on above: Performed By: #### C BCDIF, UA, GBCHEM, GBTSH, HIV12, MG, PT, RPR ####[facility] [id number] [facility], [place] [phone] Protein 6.7 g/dL Normal 6.2-8.2 [facility] Comment on above: Performed By: #### C BCDIF, UA, GBCHEM, GBTSH, HIV12, MG, PT, RPR ####[facility] Clinical [id number] [facility] HealthJ[facility], [place] [phone] Sodium 136 mmol/L Low 137-145 [facility] Comment on above: Performed By: #### C BCDIF, UA, GBCHEM, GBTSH, HIV12, MG, PT, RPR ####[facility] Clinical [id number] [address], [place] [phone] Triglyceride 115 mg/dL Normal 35-150 [facility] Comment on above: Performed By: #### C BCDIF, UA, GBCHEM, GBTSH, HIV12, MG, PT, RPR ####[facility] Clinical [id number] [address]J[place], [place] [phone] Urate 5.0 mg/dL Normal 3.5-8.5 [facility] Comment on above: Performed By: #### C BCDIF, UA, GBCHEM, GBTSH, HIV12, MG, PT, RPR ####[facility] [id number] [facility], [place] [phone] Urea nitrogen 2 mg/dL Low 9-20 [facility] Comment on above: Performed By: #### C BCDIF, UA, GBCHEM, GBTSH, HIV12, MG, PT, RPR ####[facility] [id number] [facility], [place] [phone] [facility] 10-[facility]2017 Thyroid stimulating hormone (TSH) 3.020 uU/mL Normal 0.465-4.680 [facility] Comment on above: Performed By: #### C BCDIF, UA, GBCHEM, GBTSH, HIV12, MG, PT, RPR ####[facility] [id number] [facility], [place] [phone] HIV 1,2 Antibody EIAon 10-26 HIV 1,2 Antibody EIA Nonreactive Normal Nonreactive [facility] Comment on above: Performed By: #### C BCDIF, UA, GBCHEM, GBTSH, HIV12, MG, PT, RPR ####[facility] [id number] [facility], [place] [phone] Magnesiumon 10-26-2017 Magnesium 1.3 mg/dL Normal 1.3-2.3 [facility] Comment on above: Performed By: #### C BCDIF, UA, GBCHEM, GBTSH, HIV12, MG, PT, RPR ####[facility] [id number] [facility], [place] [phone] Protimeon 10-26-2017 INR Coag RelTime (Bld) 1.1 {INR} Normal 0.6-1.1 [facility] Comment on above: Result Comment: The PT/INR can be used to monitor the therapeutic effect of oral anticoagulants, such as warfarin. The recommended therapeutic range is an INR of 2.0 to 3.0 for most applications, including treatment and prevention of venous thrombosis,treatment of pulmonary embolism, prevention of strokes/TIA in patients with atrial fibrillation, prevention and treatment of thrombosis in patients with a lupus anticoagulant and prevention of systemic embolization in patients with heart valve disorders.There are certain conditions where clinicians may decide to use a lower or higher therapeutic range eg. 1.5 to 1.9 for secondary prevention of idiopathic venous thromboembolism and an INR 2.5 to 3.5 for older generation mechanical heart valves.Maryan et al. Chest 2004: 126:204S to 233S. Performed By: #### C BCDIF, UA, GBCHEM, GBTSH, HIV12, MG, PT, RPR ####[facility] [id number] [facility], [place] [phone] PT Sec 13.4 sec Normal 11.8-14.1 [facility] Comment on above: Performed By: #### C BCDIF, UA, GBCHEM, GBTSH, HIV12, MG, PT, RPR ####[facility] [id number] [facility], [place] [phone] Urinalysison 10-26-2017 Bilirubin (total) Negative Normal Negative [facility] Comment on above: Performed By: #### C BCDIF, UA, GBCHEM, GBTSH, HIV12, MG, PT, RPR ####[facility] [id number] [facility], [place] [phone] Cast SEE NOTES Normal 0 [facility] Comment on above: Result Comment: 0-2H yaline Cast Performed By: #### C BCDIF, UA, GBCHEM, GBTSH, HIV12, MG, PT, RPR ####[facility] [id number] [facility], [place] [phone] Erythrocytes (RBC) 0-3 Normal 0-3 [facility] Comment on above: Performed By: #### C BCDIF, UA, GBCHEM, GBTSH, HIV12, MG, PT, RPR ####[facility] [id number] [facility], [place] [phone] Glucose mass conc Negative Normal Negative [facility] Comment on above: Performed By: #### C BCDIF, UA, GBCHEM, GBTSH, HIV12, MG, PT, RPR ####[facility] [id number] [address], [place] [phone] Hemoglobin mass conc (Bld) Small Critically abnormal Negative [facility] Comment on above: Performed By: #### C BCDIF, UA, GBCHEM, GBTSH, HIV12, MG, PT, RPR ####[facility] [id number] [address], [place] [phone] Ketone Negative Normal Negative [facility] Comment on above: Performed By: #### C BCDIF, UA, GBCHEM, GBTSH, HIV12, MG, PT, RPR ####[facility] [id number] [address], [place] [phone] Leukest Negative Normal Negative [facility] Comment on above: Performed By: #### C BCDIF, UA, GBCHEM, GBTSH, HIV12, MG, PT, RPR ####[facility] [id number] [address]Ch[place], [place] [phone] Protein 30 mg/dl Critically abnormal Negative [facility] Comment on above: Performed By: #### C BCDIF, UA, GBCHEM, GBTSH, HIV12, MG, PT, RPR ####[facility] [id number] [address]Ch[place], [place] [phone] Urine Mynor Comment Many Normal [facility] Comment on above: Result Comment: MUCO US Performed By: #### C BCDIF, UA, GBCHEM, GBTSH, HIV12, MG, PT, RPR ####[facility] [id number] [address], [place] [phone] Urine Spec [place] 1.021 Normal 1.005-1.030 [facility] Comment on above: Performed By: #### C BCDIF, UA, GBCHEM, GBTSH, HIV12, MG, PT, RPR ####[facility] [id number] [address], [place] [phone] Urine, clarity Clear Normal Clear [facility] Comment on above: Performed By: #### C BCDIF, UA, GBCHEM, GBTSH, HIV12, MG, PT, RPR ####[facility] [id number] [address] RdFall [facility] Hospitalrdon, [place] [phone] Urine, color Sera Critically abnormal Yellow [facility] Comment on above: Performed By: #### C BCDIF, UA, GBCHEM, GBTSH, HIV12, MG, PT, RPR ####[facility] [id number] [address], [place] [phone] Urine, crystals in sediment SEE NOTES Normal 0 [facility] Comment on above: Result Comment: FewC alcium Oxalate Crystal Performed By: #### C BCDIF, UA, GBCHEM, GBTSH, HIV12, MG, PT, RPR ####[facility] [id number] [address] RdFall [facility] Hospitalrdon, [place] [phone] Urine, epithelial cells in sediment Few Normal [facility] Comment on above: Result Comment: Squa mous Epithelial Cells Performed By: #### C BCDIF, UA, GBCHEM, GBTSH, HIV12, MG, PT, RPR ####[facility] [id number] [address] RdFall [facility] Hospitalrdon, [place] [phone] Urine, nitrite presence Negative Normal Negative [facility] Comment on above: Performed By: #### C BCDIF, UA, GBCHEM, GBTSH, HIV12, MG, PT, RPR ####[facility] [id number] [address] RdFall [facility] Hospitalrdon, [place] [phone] Urine, pH 6.0 [pH] Normal 5-7 [facility] Comment on above: Performed By: #### C BCDIF, UA, GBCHEM, GBTSH, HIV12, MG, PT, RPR ####[facility] [id number] [address], [place] [phone] Urine, urobilinogen 2.0 mg/dl High 0.0-1.0 [facility] Comment on above: Performed By: #### C BCDIF, UA, GBCHEM, GBTSH, HIV12, MG, PT, RPR ####[facility] [id number] [place], [place] [phone] WBC (Leukocytes) 0-5 Normal 0-5 [facility] Comment on above: Performed By: #### C BCDIF, UA, GBCHEM, GBTSH, HIV12, MG, PT, RPR ####[facility] [id number] [place], [place] [phone] Vital Signs Date Time Vital Sign Value Performing Clinician Facility 01-23-2025 08:50-0400 Body mass index (BMI) [Ratio] 36.32 kg/m2 Shira Podlogar RECEIVING MANAGER.DIVISION CONTROLLER Work Phone: [facility] 01-23-2025 08:50-0400 Body weight 108.95 kg Shira Podlogar RECEIVING MANAGER.DIVISION CONTROLLER Work Phone: [facility] 01-23-2025 08:50-0400 Diastolic blood pressure 78 mm[Hg] Shira Podlogar RECEIVING MANAGER.DIVISION CONTROLLER Work Phone: [facility] 01-23-2025 08:50-0400 Heart rate 93 /min Shira Podlogar RECEIVING MANAGER.DIVISION CONTROLLER Work Phone: [facility] 01-23-2025 08:50-0400 Respiratory rate 20 /min Shira Podlogar RECEIVING MANAGER.DIVISION CONTROLLER Work Phone: [facility] 01-23-2025 08:50-0400 SaO2% (BldA) [Mass fraction] 97 % Shira Podlogar RECEIVING MANAGER.DIVISION CONTROLLER Work Phone: [facility] 01-23-2025 08:50-0400 Systolic blood pressure 108 mm[Hg] Shira Podlogar RECEIVING MANAGER.DIVISION CONTROLLER Work Phone: [facility] 01-15-2025 08:00-0400 Body temperature 98 [degF] Dr. Vasu Blackwell MD Work Phone: [facility] 01-15-2025 08:00-0400 Body weight 107.[address] Vasu Blackwell MD Work Phone: [facility] 01-15-2025 08:00-0400 Diastolic blood pressure 80 mm[Hg] Dr. Vasu Blackwell MD Work Phone: [facility] 01-15-2025 08:00-0400 Heart rate 84 /min Dr. Vasu Blackwell MD Work Phone: [facility] 01-15-2025 08:00-0400 Respiratory rate 17 /min Dr. Vasu Blackwell MD Work Phone: [facility] 01-15-2025 08:00-0400 SaO2% (BldA) [Mass fraction] 98 % Dr. Vasu Blackwell MD Work Phone: [facility] 01-15-2025 08:00-0400 Systolic blood pressure 119 mm[Hg] Dr. Vasu Blackwell MD Work Phone: [facility] 01-01-2025 08:01-0400 Body height 175.[address] Vasu Blackwell MD Work Phone: [facility] 01-01-2025 08:01-0400 Body mass index (BMI) [Ratio] 34.9 kg/m2 Dr. Vasu Blackwell MD Work Phone: [facility] 01-01-2025 08:01-0400 Body temperature 97.8 [degF] Dr. Vasu Blackwell MD Work Phone: [facility] 01-01-2025 08:01-0400 Body weight 107.[address] Vasu Blackwell MD Work Phone: [facility] 01-01-2025 08:01-0400 Diastolic blood pressure 63 mm[Hg] Dr. Vasu Blackwell MD Work Phone: [facility] 01-01-2025 08:01-0400 Heart rate 97 /min Dr. Vasu Blackwell MD Work Phone: [facility] 01-01-2025 08:01-0400 Respiratory rate 15 /min Dr. Vasu Blackwell MD Work Phone: [facility] 01-01-2025 08:01-0400 SaO2% (BldA) [Mass fraction] 99 % Dr. Vasu Blackwell MD Work Phone: [facility] 01-01-2025 08:01-0400 Systolic blood pressure 93 mm[Hg] Dr. Vasu Blackwell MD Work Phone: [facility] 09-30-2024 08:04-0500 Body mass index (BMI) [Ratio] 34 kg/m2 Dr. Vasu Blackwell MD Work Phone: [facility] 09-30-2024 08:04-0500 Body temperature 97.7 [degF] Dr. Vasu Blackwell MD Work Phone: [facility] 09-30-2024 08:04-0500 Body weight 104.[address] Vasu Blackwell MD Work Phone: [facility] 09-30-2024 08:04-0500 Diastolic blood pressure 62 mm[Hg] Dr. Vasu Blackwell MD Work Phone: [facility] 09-30-2024 08:04-0500 Heart rate 95 /min Dr. Vasu Blackwell MD Work Phone: [facility] 09-30-2024 08:04-0500 Respiratory rate 15 /min Dr. Vasu Blackwell MD Work Phone: [facility] 09-30-2024 08:04-0500 SaO2% (BldA) [Mass fraction] 99 % Dr. Vasu Blackwell MD Work Phone: [facility] 09-30-2024 08:04-0500 Systolic blood pressure 108 mm[Hg] Dr. Vasu Blackwell MD Work Phone: [facility] 07-28-2024 13:31-0500 Body height 173.2 cm Alexandro Semmes RECEIVING MANAGER.DIVISION CONTROLLER Work Phone: [facility] 07-28-2024 13:31-0500 Body mass index (BMI) [Ratio] 32.96 kg/m2 Alexandro Semmes RECEIVING MANAGER.DIVISION CONTROLLER Work Phone: [facility] 07-28-2024 13:31-0500 Body weight 98.88 kg Alexandro Semmes RECEIVING MANAGER.DIVISION CONTROLLER Work Phone: [facility] 07-28-2024 13:31-0500 Heart rate 85 /min Alexandro Semmes RECEIVING MANAGER.DIVISION CONTROLLER Work Phone: [facility] 07-28-2024 13:31-0500 Respiratory rate 12 /min Alexandro Semmes RECEIVING MANAGER.DIVISION CONTROLLER Work Phone: [facility] 07-28-2024 13:31-0500 SaO2% (BldA) [Mass fraction] 96 % Alexandro Semmes RECEIVING MANAGER.DIVISION CONTROLLER Work Phone: [facility] 07-28-2024 11:21-0500 Body height 173.2 cm Pulm Wstr Work Phone: [facility] 07-28-2024 11:21-0500 Body mass index (BMI) [Ratio] 32.96 kg/m2 Pulm Wstr Work Phone: [facility] 07-28-2024 11:21-0500 Body weight 98.88 kg Pulm Wstr Work Phone: [facility] 07-28-2024 11:21-0500 Heart rate 85 /min Pulm Wstr Work Phone: [facility] 07-28-2024 11:21-0500 Respiratory rate 12 /min Pulm Wstr Work Phone: [facility] 07-28-2024 11:21-0500 SaO2% (BldA) [Mass fraction] 96 % Pulm Wstr Work Phone: [facility] 07-23-2024 08:47-0500 Body mass index (BMI) [Ratio] 31.6 kg/m2 Waldo Galo MD Work Phone: [facility] 07-23-2024 08:47-0500 Body weight 99.88 kg Waldo Galo MD Work Phone: [facility] 07-23-2024 08:47-0500 Diastolic blood pressure 66 mm[Hg] Waldo Galo MD Work Phone: [facility] 07-23-2024 08:47-0500 Heart rate 84 /min Waldo Galo MD Work Phone: [facility] 07-23-2024 08:47-0500 Respiratory rate 16 /min Waldo Galo MD Work Phone: [facility] 07-23-2024 08:47-0500 SaO2% (BldA) [Mass fraction] 94 % Waldo Galo MD Work Phone: [facility] 07-23-2024 08:47-0500 Systolic blood pressure 110 mm[Hg] Waldo Galo MD Work Phone: [facility] 06-26-2024 07:30-0500 Body mass index (BMI) [Ratio] 31.32 kg/m2 Shira Foxlogar RECEIVING MANAGER.DIVISION CONTROLLER Work Phone: [facility] 06-26-2024 07:30-0500 Body weight 99 kg Shira Foxlogar RECEIVING MANAGER.DIVISION CONTROLLER Work Phone: [facility] 06-26-2024 07:30-0500 Diastolic blood pressure 76 mm[Hg] Shira Podlogdomenico RECEIVING MANAGER.DIVISION CONTROLLER Work Phone: [facility] 06-26-2024 07:30-0500 Heart rate 74 /min Shira Foxlogdomenico RECEIVING MANAGER.DIVISION CONTROLLER Work Phone: [facility] 06-26-2024 07:30-0500 Respiratory rate 16 /min Shira Cheatham RECEIVING MANAGER.DIVISION CONTROLLER Work Phone: [facility] 06-26-2024 07:30-0500 Systolic blood pressure 114 mm[Hg] Shira Cheatham RECEIVING MANAGER.DIVISION CONTROLLER Work Phone: [facility] 04-09-2024 11:10-0400 Body mass index (BMI) [Ratio] 29.24 kg/m2 Waldo Galo MD Work Phone: [facility] 04-09-2024 11:10-0400 Body temperature 96.91 [degF] Waldo Galo MD Work Phone: [facility] 04-09-2024 11:10-0400 Body weight 92.44 kg Waldo Galo MD Work Phone: [facility] 04-09-2024 11:10-0400 Diastolic blood pressure 78 mm[Hg] Waldo Galo MD Work Phone: [facility] 04-09-2024 11:10-0400 Heart rate 77 /min Waldo Galo MD Work Phone: [facility] 04-09-2024 11:10-0400 Respiratory rate 16 /min Waldo Galo MD Work Phone: [facility] 04-09-2024 11:10-0400 SaO2% (BldA) [Mass fraction] 97 % Waldo Galo MD Work Phone: [facility] 04-09-2024 11:10-0400 Systolic blood pressure 104 mm[Hg] Waldo Galo MD Work Phone: [facility] 01-08-2024 00:34-0400 Blood Pressure Method TYRELL CASTANON MD [facility] 01-08-2024 00:34-0400 Diastolic Blood Pressure Non-Invasive 85 mm[Hg] TYRELL CASTANON MD [facility] 01-08-2024 00:34-0400 Heart rate 82 /min TYRELL CASTANON MD [facility] 01-08-2024 00:34-0400 Reason For Taking VItal Signs TYRELL CASTANON MD [facility] 01-08-2024 00:34-0400 Respiratory rate 16 /min TYRELL CASTANON MD [facility] 01-08-2024 00:34-0400 Systolic Blood Pressure Non-Invasive 124 mm[Hg] TYRELL CASTANON MD [facility] 01-07-2024 21:21-0400 Diastolic Blood Pressure Non-Invasive 103 mm[Hg] TYRELL CASTANON MD [facility] 01-07-2024 21:21-0400 Heart rate 89 /min TYRELL CASTANON MD [facility] 01-07-2024 21:21-0400 Respiratory rate 18 /min TYRELL CASTANON MD [facility] 01-07-2024 21:21-0400 Systolic Blood Pressure Non-Invasive 146 mm[Hg] TYRELL CASTANON MD [facility] 01-07-2024 18:41-0400 Blood Pressure Location TYRELL CASTANON MD [facility] 01-07-2024 18:41-0400 Blood Pressure Method TYRELL CASTANON MD [facility] 01-07-2024 18:41-0400 Body temperature 98.06 [degF] TYRELL CASTANON MD [facility] 01-07-2024 18:41-0400 Diastolic Blood Pressure Non-Invasive 91 mm[Hg] TYRELL CASTANON MD [facility] 01-07-2024 18:41-0400 Heart rate 94 /min TYRELL CASTANON MD [facility] 01-07-2024 18:41-0400 Respiratory rate 18 /min TYRELL CASTANON MD [facility] 01-07-2024 18:41-0400 Systolic Blood Pressure Non-Invasive 125 mm[Hg] TYRELL CASTANON MD [facility] 01-07-2024 18:11-0400 Blood Pressure Location TYRELL CASTANON MD [facility] 01-07-2024 18:11-0400 Blood Pressure Method TYRELL CASTANON MD [facility] 01-07-2024 18:11-0400 Body temperature 98.06 [degF] TYRELL CASTANON MD [facility] 01-07-2024 17:41-0400 Blood Pressure Location TYRELL CASTANON MD [facility] 01-07-2024 17:41-0400 Body temperature 98.42 [degF] TYRELL CASTANON MD [facility] 10-15-2023 08:16-0500 Body height 177.[address] Vasu Blackwell Work Phone: [facility] 10-15-2023 08:16-0500 Body mass index (BMI) [Ratio] 27.6 kg/m2 Dr. Vasu Blackwell Work Phone: [facility] 10-15-2023 08:16-0500 Body temperature 98.4 [degF] Dr. Vasu Blackwell Work Phone: [facility] 10-15-2023 08:16-0500 Body weight 87.[address] Vasu Blackwell Work Phone: [facility] 10-15-2023 08:16-0500 Diastolic blood pressure 78 mm[Hg] Dr. Vasu Blackwell Work Phone: [facility] 10-15-2023 08:16-0500 Heart rate 95 /min Dr. Vasu Blackwell Work Phone: [facility] 10-15-2023 08:16-0500 Respiratory rate 17 /min Dr. Vasu Blackwell Work Phone: [facility] 10-15-2023 08:16-0500 SaO2% (BldA) [Mass fraction] 99 % Dr. Vasu Blackwell Work Phone: [facility] 10-15-2023 08:16-0500 Systolic blood pressure 130 mm[Hg] Dr. Vasu Blackwell Work Phone: [facility] 09-24-2023 14:16-0500 Body height 180.[address] Vasu Blackwell Work Phone: [facility] 09-24-2023 14:16-0500 Body mass index (BMI) [Ratio] 26.9 kg/m2 Dr. Vasu Blackwell Work Phone: [facility] 09-24-2023 14:16-0500 Body temperature 97.4 [degF] Dr. Vasu Blackwell Work Phone: [facility] 09-24-2023 14:16-0500 Body weight 87.[address] Vasu Blackwell Work Phone: [facility] 09-24-2023 14:16-0500 Diastolic blood pressure 74 mm[Hg] Dr. Vasu Blackwell Work Phone: [facility] 09-24-2023 14:16-0500 Heart rate 54 /min Dr. Vasu Blackwell Work Phone: [facility] 09-24-2023 14:16-0500 Respiratory rate 16 /min Dr. Vasu Blackwell Work Phone: [facility] 09-24-2023 14:16-0500 SaO2% (BldA) [Mass fraction] 99 % Dr. Vasu Blackwell Work Phone: [facility] 09-24-2023 14:16-0500 Systolic blood pressure 120 mm[Hg] Dr. Vasu Blackwell Work Phone: [facility] 06-20-2023 14:11-0400 Body temperature 97.4 [degF] Dr. Vasu Blackwell Work Phone: [facility] 06-20-2023 14:11-0400 Diastolic blood pressure 86 mm[Hg] Dr. Vasu Blackwell Work Phone: [facility] 06-20-2023 14:11-0400 Heart rate 79 /min Dr. Vasu Blackwell Work Phone: [facility] 06-20-2023 14:11-0400 Respiratory rate 18 /min Dr. Vasu Blackwell Work Phone: [facility] 06-20-2023 14:11-0400 SaO2% (BldA) [Mass fraction] 100 % Dr. Vasu Blackwell Work Phone: [facility] 06-20-2023 14:11-0400 Systolic blood pressure 138 mm[Hg] Dr. Vasu Blackwell Work Phone: [facility] 06-16-2023 15:24-0400 Body height 180.[address] Vasu Blackwell Work Phone: [facility] 06-16-2023 15:24-0400 Body mass index (BMI) [Ratio] 27.3 kg/m2 Dr. Vasu Blackwell Work Phone: [facility] 06-16-2023 15:24-0400 Body weight 89.[address] Vasu Blackwell Work Phone: [facility] 06-16-2023 15:24-0400 Diastolic blood pressure 77 mm[Hg] Dr. Vasu Blackwell Work Phone: [facility] 06-16-2023 15:24-0400 Systolic blood pressure 140 mm[Hg] Dr. Vasu Blackwell Work Phone: [facility] 06-16-2023 14:12-0400 Heart rate 114 /min Dr. Vasu Blackwell Work Phone: [facility] 06-16-2023 14:12-0400 Respiratory rate 22 /min Dr. Vasu Blackwell Work Phone: [facility] 06-16-2023 14:12-0400 SaO2% (BldA) [Mass fraction] 99 % Dr. Vasu Blackwell Work Phone: [facility] 06-16-2023 12:13-0400 Body temperature 98.6 [degF] Dr. Vasu Blackwell Work Phone: [facility] 06-16-2023 12:08-0400 Body height 177.[address] Vasu Blackwell Work Phone: [facility] 06-16-2023 12:08-0400 Body mass index (BMI) [Ratio] 28.7 kg/m2 Dr. Vasu Blackwell Work Phone: [facility] 06-16-2023 12:08-0400 Body weight 90.[address] Vasu Blackwell Work Phone: [facility] 05-31-2023 08:59-0400 Body height 177.[address] Vasu Blackwell Work Phone: [facility] 05-31-2023 08:59-0400 Body mass index (BMI) [Ratio] 28.5 kg/m2 Dr. Vasu Blackwell Work Phone: [facility] 05-31-2023 08:59-0400 Body temperature 98.2 [degF] Dr. Vasu Blackwell Work Phone: [facility] 05-31-2023 08:59-0400 Body weight 90.[address] Vasu Blackwell Work Phone: [facility] 05-31-2023 08:59-0400 Diastolic blood pressure 90 mm[Hg] Dr. Vasu Blackwell Work Phone: [facility] 05-31-2023 08:59-0400 Heart rate 100 /min Dr. Vasu Blackwell Work Phone: [facility] 05-31-2023 08:59-0400 Respiratory rate 17 /min Dr. Vasu Blackwell Work Phone: [facility] [facility] 05-31-2023 08:59-0400 SaO2% (BldA) [Mass fraction] 95 % Dr. Vasu Blackwell Work Phone: [facility] 05-31-2023 08:59-0400 Systolic blood pressure 140 mm[Hg] Dr. Vasu Blackwell Work Phone: [facility] 05-28-2023 09:53-0400 Body mass index (BMI) [Ratio] 28.7 kg/m2 Dr. Vasu Blackwell Work Phone: [facility] 05-28-2023 09:53-0400 Body temperature 97.2 [degF] Dr. Vasu Blackwell Work Phone: [facility] 05-28-2023 09:53-0400 Body weight 90.[address] Vasu Blackwell Work Phone: [facility] 05-28-2023 09:53-0400 Diastolic blood pressure 82 mm[Hg] Dr. Vasu Blackwell Work Phone: [facility] 05-28-2023 09:53-0400 Heart rate 106 /min Dr. Vasu Blackwell Work Phone: [facility] 05-28-2023 09:53-0400 Respiratory rate 16 /min Dr. Vasu Blackwell Work Phone: [facility] 05-28-2023 09:53-0400 SaO2% (BldA) [Mass fraction] 97 % Dr. Vasu Blackwell Work Phone: [facility] 05-28-2023 09:53-0400 Systolic blood pressure 150 mm[Hg] Dr. Vasu Blackwell Work Phone: [facility] 02-21-2022 15:14-0400 Body mass index (BMI) [Ratio] Patient Reason Not Done Referring Provider Unknown ZM-Fnaskutzb-INAS C Bolwell 5 Work Phone: 02-21-2022 15:14-0400 Diastolic blood pressure 77 mm[Hg] Referring Provider Unknown SZ-Vxidwkgyg-BCOL C Bolwell 5 Work Phone: 02-21-2022 15:14-0400 Heart rate 72 /min Referring Provider Unknown FB-Jxmpzvjae-FKHL C Bolwell 5 Work Phone: 02-21-2022 15:14-0400 Respiratory rate 19 /min Referring Provider Unknown LL-Cjieppech-TJVI C Bolwell 5 Work Phone: 02-21-2022 15:14-0400 SaO2% (BldA) [Mass fraction] 98 % Referring Provider Unknown SS-Njvbiyryx-NGFM C Bolwell 5 Work Phone: 02-21-2022 15:14-0400 Systolic blood pressure 117 mm[Hg] Referring Provider Unknown GH-Elrfujvdz-YUCI C Bolwell 5 Work Phone: 12-30-2021 22:28-0400 Respiratory rate 16 /min Dr. Vasu Blackwell Work Phone: [facility] Work Phone: 12-30-2021 17:48-0400 Body height 177.[address] Vasu Blackwell Work Phone: [facility] Work Phone: 12-30-2021 17:48-0400 Body mass index (BMI) [Ratio] 29.2 kg/m2 Dr. Vasu Blackwell Work Phone: [facility] Work Phone: 12-30-2021 17:48-0400 Body temperature 98.1 [degF] Dr. Vasu Blackwell Work Phone: [facility] Work Phone: 12-30-2021 17:48-0400 Body weight 92.[address] Vasu Blackwell Work Phone: [facility] Work Phone: 12-30-2021 17:48-0400 Diastolic blood pressure 83 mm[Hg] Dr. Vasu Blackwell Work Phone: [facility] Work Phone: 12-30-2021 17:48-0400 Heart rate 86 /min Dr. Vasu Blackwell Work Phone: [facility] Work Phone: 12-30-2021 17:48-0400 SaO2% (BldA) [Mass fraction] 98 % Dr. Vasu Blackwell Work Phone: [facility] Work Phone: 12-30-2021 17:48-0400 Systolic blood pressure 117 mm[Hg] Dr. Vasu Blackwell Work Phone: [facility] Work Phone: 12-30-2021 10:00-0400 Body mass index (BMI) [Ratio] 28.8 kg/m2 Dr. Vasu Blackwell Work Phone: [facility] Work Phone: 12-30-2021 10:00-0400 Body temperature 96.5 [degF] Dr. Vasu Blackwell Work Phone: [facility] Work Phone: 12-30-2021 10:00-0400 Body weight 91.[address] Vasu Blackwell Work Phone: [facility] Work Phone: 12-30-2021 10:00-0400 Diastolic blood pressure 70 mm[Hg] Dr. Vasu Blackwell Work Phone: [facility] Work Phone: 12-30-2021 10:00-0400 Heart rate 91 /min Dr. Vasu Blackwell Work Phone: [facility] Work Phone: 12-30-2021 10:00-0400 Systolic blood pressure 110 mm[Hg] Dr. Vasu Blackwell Work Phone: [facility] Work Phone: 10-26-2021 07:16-0500 Body mass index (BMI) [Ratio] 30.2 kg/m2 Dr. Vasu Blackwell Work Phone: [facility] Work Phone: 10-26-2021 07:16-0500 Body temperature 97.9 [degF] Dr. Vasu Blackwell Work Phone: [facility] Work Phone: 10-26-2021 07:16-0500 Body weight 95.[address] Vasu Blackwell Work Phone: [facility] Work Phone: 10-26-2021 07:16-0500 Diastolic blood pressure 84 mm[Hg] Dr. Vasu Blackwell Work Phone: [facility] Work Phone: 10-26-2021 07:16-0500 Heart rate 80 /min Dr. Vasu Blackwell Work Phone: [facility] Work Phone: 10-26-2021 07:16-0500 Respiratory rate 14 /min Dr. Vasu Blackwell Work Phone: [facility] Work Phone: 10-26-2021 07:16-0500 SaO2% (BldA) [Mass fraction] 98 % Dr. Vasu Blackwell Work Phone: [facility] Work Phone: 10-26-2021 07:16-0500 Systolic blood pressure 120 mm[Hg] Dr. Vasu Blackwell Work Phone: [facility] Work Phone: 06-16-2019 09:14-0400 Body weight 170.4 LB/KG [facility] Comment on above: Performed By: #### PT #### [place] [address] 06-13-2019 14:46-0400 Body temperature 35.8 Deg Haley [facility] Comment on above: Performed By: #### PT #### [place] [address] 06-11-2019 17:57-0400 Body temperature 37.0 Deg Haley [facility] Comment on above: Performed By: #### ABG ####[place] [address] 06-10-2019 06:45-0400 Body temperature 37.0 Deg Haley [facility] Comment on above: Performed By: #### LILLIANA #### [place] [address] 06-07-2019 19:56-0400 Body temperature 37.0 Deg H[facility] Comment on above: Performed By: #### LILLIANA #### [facility] [address] [place] [address] 06-07-2019 12:56-0400 Body temperature 37.0 Deg Haley [facility] Comment on above: Performed By: #### LILLIANA #### [facility] [address] [place] [address] 06-07-2019 10:24-0400 Body temperature 37.0 Deg Haley [facility] Comment on above: Performed By: #### LILLIANA #### [facility] [address] [place], [place] [address] Encounters Encounter Date Encounter Type Care Provider Facility Start: 02-10-2025 ambulatory Errol Baddour Facilit y:[facility] Start: 02-05-2025 ambulatory Errol Baddour Facilit y:[facility] Start: 01-29-2025 End: 01-29-[address] Errol Moore MD -Pulmonary Services/Neurology Work Phone: Start: 01-29-2025 End: 01-29-2025 ambulatory Errol Castrour Facility:[facility] Start: 01-23-2025 End: 01-23-2025 Patient encounter procedure Shira Cheatham APRN.CNP Work Phone: [facility] Comment on above: Primary hypertension (Primary Dx); Other hyperlipidemia; Tobacco use; Screening for colon cancer; Tobacco use disorder; Bipolar affective disorder, remission status unspecified (HCC); Marijuana use; Nonintractable epilepsy without status epilepticus, unspecified epilepsy type (HCC); Alcoholism in remission (HCC); Gastroesophageal reflux disease without esophagitis Start: 01-23-2025 End: 01-23-2025 ambulatory SHIRA PODLOGDOMENICO Facility:[facility] Start: 01-19-2025 End: 01-22-2025 Telephone encounter Neurology Provider Neurology Comment on above: Received Outside Med ical Records (External referral to Neurological [facility]/) Start: 01-15-2025 End: 01-15-[address] Errol Moore MD -[facility] Work Phone: Start: 01-15-2025 End: 01-15-[address] Vasu Blackwell MD Work Phone: [facility] Work Phone: Start: 01-01-2025 End: 01-01-2025 Patient encounter procedure Marta FOX -[facility] Work Phone: Start: 01-01-2025 End: 01-01-[address] Vasu Blackwell MD Work Phone: [facility] Work Phone: Start: 11-10-2024 End: 11-10-2024 Refill Waldo Galo MD Work Phone: [facility] Comment on above: Refill Request Start: 10-02-2024 End: 10-02-[address] Errol Moore MD -Laboratory Work Phone: Start: 10-02-2024 End: 10-02-2024 ambulatory Errol Moore Facility:[facility] Start: 09-30-2024 End: 09-30-[address] Errol Moore MD -[facility] Work Phone: Start: 09-30-2024 End: 09-30-2024 ambulatory Vasu Blackwell Facility:[facility] Start: 08-14-2024 End: 08-14-2024 Orders Only Alexandro Monterroso RECEIVING MANAGER.DIVISION CONTROLLER Work Phone: Pulmonary Medicine Comment on above: Encounter for screen ing for lung cancer (Primary Dx); Tobacco use Start: 08-12-2024 End: 08-12-2024 ambulatory ALEXANDRO MONTERROSO Facility:[facility] Start: 08-12-2024 End: 08-12-2024 Subsequent hospital visit by physician [facility] (I-Stat) Work Phone: [facility] Comment on above: Encounter for screen ing for lung cancer [Z12.2] Start: 07-28-2024 End: 07-28-2024 ambulatory Pulm [facility] Work Phone: [facility] Comment on above: Spirometry Start: 07-28-2024 End: 07-28-2024 Patient encounter procedure [facility] Work Phone: [facility] Comment on above: Encounter for screen ing for lung cancer (Primary Dx); Tobacco use Start: 07-23-2024 End: 07-23-2024 ambulatory WALDO GALO Facility:[facility] Start: 07-23-2024 End: 07-23-2024 Patient encounter procedure Waldo Galo MD Work Phone: [facility] Comment on above: Persistent cough (Pr imary Dx); Wheezing; Tobacco use; Primary hypertension; Other hyperlipidemia; Bipolar affective disorder, remission status unspecified (HCC); Depression with anxiety Start: 07-18-2024 End: 07-18-2024 Refill Waldo Galo MD Work Phone: [facility] Comment on above: Refill Request Start: 07-03-2024 End: 07-03-2024 ambulatory Errol Moore Facility:[facility] Start: 06-26-2024 End: 06-27-2024 Telephone encounter Waldo Galo MD Work Phone: [facility] Comment on above: fax order to [facility] Start: 06-26-2024 End: 06-26-2024 ambulatory SHIRA PODLOGDOMENICO Facility:[facility] Start: 06-26-2024 End: 06-26-2024 Patient encounter procedure Shira Cheatham RECEIVING MANAGERCeciliaDIVISION CONTROLLER Work Phone: [facility] [place] Comment on above: Bilateral leg edema (Primary Dx); Primary hypertension; Alcohol abuse; Elevated liver enzymes Start: 06-14-2024 ambulatory Davy Douglass Facili ty:[facility] Start: 06-14-2024 End: 06-18-2024 Evaluation and management of inpatient Davy Douglass Facility:[facility] Start: 06-10-2024 ambulatory Vasu Blackwell Facili ty:[facility] Start: 04-11-2024 End: 04-11-2024 Telephone encounter Waldo Galo MD Work Phone: [facility] [place] Comment on above: Results Start: 04-09-2024 End: 04-09-2024 ambulatory WALDO GALO Facility:[facility] Start: 04-09-2024 Encounter for genera l adult medical examination without abnormal findings WALDO GALO [facility] Start: 04-09-2024 End: 04-09-2024 Patient encounter procedure Waldo Galo MD Work Phone: [facility] [place] Comment on above: Encounter for medica l examination to establish care (Primary Dx); Diarrhea, unspecified type; Alcohol abuse; Depression with anxiety; Bipolar affective disorder, remission status unspecified (HCC); Primary hypertension; Screening for colon cancer; Marijuana use; History of traumatic brain injury; Nonintractable epilepsy without status epilepticus, unspecified epilepsy type (HCC) Start: 04-09-2024 End: 04-09-2024 Patient encounter status Waldo Galo MD Work Phone: [facility] Work Phone: Start: 04-09-2024 End: 04-09-2024 ambulatory WALDO GALO Facility:[facility] Start: 04-06-2024 End: 04-06-2024 Letter encounter [facility] Start: 03-07-2024 End: 03-07-2024 ambulatory Vasu Blackwell Facility:[facility] Start: 03-03-2024 ambulatory Vasu Blackwell Facili ty:[facility] Start: 01-07-2024 End: 01-08-2024 Emergency department patient visit JOHN LUJAN DO Facility:[facility] Start: 01-07-2024 End: 01-08-2024 Emergency department patient visit TYRELL CASTANON MD [facility] Start: 12-30-2023 Letter encounter Debra vega Start: 11-08-2023 End: 11-08-[address] Vasu Blackwell Work Phone: [facility] Work Phone: Start: 11-08-2023 End: 11-08-[address] Vasu Blackwell Work Phone: [facility]-Sleep Lab Work Phone: Start: 10-15-2023 End: 10-15-[address] Vasu Blackwell Work Phone: [facility] Neurology Work Phone: Start: 09-25-2023 End: 09-25-[address] Vasu Blackwell Work Phone: [facility] Work Phone: Start: 09-25-2023 End: 09-25-[address] Vasu Blackwell Work Phone: [facility]-Laboratory, Specimen Work Phone: Start: 09-25-2023 Non-patient / Non-visit Dr. Ada Blackwell Work Phone: [facility] Start: 09-24-2023 End: 09-24-[address] Vasu Blackwell Work Phone: [facility] Work Phone: Start: 09-24-2023 End: 09-24-[address] Vasu Blackwell Work Phone: [facility] Internal Medicine Work Phone: Start: 09-13-2023 End: 09-13-[address] Vasu Blackwell Work Phone: [facility] Work Phone: Start: 09-13-2023 End: 09-13-[address] Vasu Blackwell Work Phone: [facility] Work Phone: Start: 06-20-2023 Non-patient / Non-visit Dr. Ada Blackwell Work Phone: [facility] Work Phone: Start: 06-19-2023 Non-patient / Non-visit Dr. Ada Blackwell Work Phone: [facility] Work Phone: Start: 06-18-2023 Non-patient / Non-visit Dr. Ada Blackwell Work Phone: [facility] Work Phone: Start: 06-17-2023 Non-patient / Non-visit Dr. Ada Blackwell Work Phone: [facility] Work Phone: Start: 06-16-2023 Non-patient / Non-visit Dr. Ada Blackwell Work Phone: [facility] Work Phone: Start: 06-16-2023 End: 06-20-2023 Evaluation and management of inpatient Dr. Vasu Blackwell Work Phone: [facility]-Medical Surgical 3 Work Phone: Start: 06-08-2023 End: 06-08-[address] Vasu Blackwell Work Phone: [facility] Work Phone: Start: 06-08-2023 End: 06-08-[address] Vasu Blackwell Work Phone: [facility]-Pulmonary Services/Neurology Work Phone: Start: 05-31-2023 End: 05-31-[address] Vasu Blackwell Work Phone: [facility] Neurology Work Phone: Start: 05-28-2023 End: 05-28-[address] Vasu Blackwell Work Phone: [facility] Work Phone: Start: 05-28-2023 End: 05-28-[address] Vasu Blackwell Work Phone: [facility] Internal Medicine Work Phone: Start: 10-02-[address] Vasu Blackwell Work Phone: [facility] Start: 09-26-2022 [facility] Start: 06-27-2022 [facility] Start: 02-21-2022 Office outpatient ne w 60 minutes Referring Provider Unknown JM-Ipxcejmdv-GEAFZ Bolwell 5 Work Phone: Start: 12-30-2021 End: 12-30-2021 Emergency department patient visit Dr. Vasu Blackwell Work Phone: [facility]-Emergency Department Start: 12-30-2021 End: 12-30-[address] Vasu Blackwell Work Phone: [facility] Start: 10-26-2021 End: 10-26-[address] Vasu Blackwell Work Phone: [facility]-Laboratory, [facility] Start: 08-03-2021 End: 08-03-2021 Patient encounter procedure RONEN CHURCH RATE INSERTER [facility] Start: 07-05-[address] Vasu Blackwell Work Phone: [facility] Start: 01-29-2021 ambulatory UNKNOWN PROVIDER Facili ty:[facility] Start: 01-28-2021 End: 01-28-2021 ambulatory UNKNOWN PROVIDER Facility:[facility] Start: 01-28-2021 End: 01-31-2021 Evaluation and management of inpatient SAMMY AMOR [facility] Start: 01-27-2021 ambulatory SAMMY AMOR [facility] Start: 10-30-2017 [facility] Start[facility] 10-29-2017 [facility] Start: 10-28-2017 Ambulatory KAT Martin [facility] Start: 10-27-2017 [facility] Start: 10-26-2017 Ambulatory KAT Martin [facility] Procedures Date Procedure Procedure Detail Performing Clinician Start: 10-02-2024 Measurement of renal function Dr. Vasu Blackwell MD Work Phone: Comment on above: GFR Calc Start: 10-02-[address] Vasu Blackwell MD Work Phone: Start: 08-12-2024 CT LUNG SCREEN WO MIMI Alexandrowang Monterroso RECEIVING MANAGER.DIVISION CONTROLLER Work Phone: Start: 07-28-2024 Brncdilat rspse spmt ry pre&post-brncdilat admn Waldo Galo MD Work Phone: Start: 04-09-2024 Lipid 1996 panel - S alex or Plasma Waldo Galo MD Work Phone: Start: 09-25-2023 [address] diff[address] e detection Dr. Vasu Blackwell Work Phone: Start: 09-25-[address] Vasu Blackwell Work Phone: Start: 09-25-[address] Vasu Blackwell Work Phone: Start: 09-13-2023 MRI of brain with contrast Dr. Vasu Blackwell Work Phone: Start: 12-30-2021 Computed tomography of abdomen and pelvis with contrast Dr. Vasu Blackwell Work Phone: Start: 06-01-2019 End: 06-01-2019 Electrocardiogram Start: 06-01-2019 Antibody screen Comment on above: Performed By: #### P T #### [place] [address] Plan of Treatment Date Care Activity Detail Author Start: 06-01-2029 Tetanus vaccination Tetanus (T d or Tdap) [facility] Start: 06-01-2029 Urine microalbumin profile DTaP,Tdap,Td Vaccine (2 - Td or Tdap) [facility] Start: 04-09-2029 Lipid panel Lipid Screening [facility] Start: 04-09-2027 Diabetes Screening Diabetes Screenin g [facility] Start: 01-23-2026 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 Disease Visit Annual PCP Team Chronic Disease Visit [facility] Start: 01-23-2026 BP Controlled (<130/80) BP Controlle d (<130/80) [facility] Start: 01-23-2026 Pneumococcal Vaccine : 50+ (2 of 2 - PCV) Pneumococcal Vaccine: 50+ (2 of 2 - PCV) [facility] Comment on above: Postponed from 06/27 (Declined at this time) Start: 01-23-2026 Shingrix Vaccine (1 of 2) Pineda grix Vaccine (1 of 2) [facility] Comment on above: Postponed from 03/26 (Declined at this time) Start: 08-12-2025 Screening for malign ant neoplasm of lung Lung Cancer Screening [facility] Start: 07-28-2025 BP Controlled (<130/80) BP Controlle d (<130/80) [facility] Start: 07-27-2025 End: 07-27-2025 Patient encounter procedure 07/27/2025 9:20 AM EST Office Visit Family Paco Vásquez [address] [place] [address] Waldo Galo MD [address] [place] [id number] 6 month follow up Family Paco Vásquez Comment on above: 6 month follow up Start: 07-23-2025 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 Disease Visit Annual PCP Team Chronic Disease Visit [facility] Start: 07-23-2025 BP Controlled (<130/80) BP Controlle d (<130/80) [facility] Start: 07-23-2025 Covid-19 Vaccine ( season) Covid-19 Vaccine () [facility] Comment on above: Postponed from 04/20 (Declined at this time) Start: 07-23-2025 Pneumococcal vaccination Pneum ococcal Vaccine (2 of 2 - PCV) [facility] Comment on above: Postponed from 06/27 (Declined at this time) Start: 07-20-2025 End: 09-13-2025 CT Chest for screening WO contrast CT LUNG SCREEN WO IVCON Radiology Routine Encounter for screening for lung cancer Tobacco use Expected: 07/20/2025 (Approximate), Expires: 09/13/2025 [facility] Work Phone: Comment on above: Expected: 07/20/2025 (Approximate), Expires: 09/13/2025 Start: 06-26-2025 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 Disease Visit Annual PCP Team Chronic Disease Visit [facility] Start: 06-26-2025 BP Controlled (<130/80) BP Controlle d (<130/80) [facility] Start: 04-09-2025 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 Disease Visit Annual PCP Team Chronic Disease Visit [facility] Start: 04-09-2025 BP Controlled (<130/80) BP Controlle d (<130/80) [facility] Start: 02-10-2025 Polysomnography [facility] Start: 01-23-2025 End: 04-24-2025 Lipid 1996 panel - Serum or Plasma LIPID PANEL, FASTING Lab Routine Other hyperlipidemia Expected: 01/23/2025, Expires: 04/24/2025 [facility] Comment on above: Expected: 01/23/2025 , Expires: 04/24/2025 Start: 01-23-2025 End: 01-23-2025 Patient encounter procedure 01/23/2025 9:00 AM EDT Office Visit [facility] [place] [address] [place], [place] [id number] PodlogShira acuña APRN.DIVISION CONTROLLER [address] [facility] [place] [address] 6 month follow up [facility] [place] Comment on above: 6 month follow up Start: 01-21-2025 End: 01-21-2025 Patient encounter procedure 01/21/2025 8:40 AM EDT Office Visit [facility] [place] [address] [facility] [place] [address] Waldo Galo MD [address] [facility] [place] [id number] 6 month follow up [facility] [place] Comment on above: 6 month follow up Start: 01-16-2025 Patient referral [facility] Work Phone: Start: 08-12-2024 End: 08-12-2024 Patient encounter procedure 08/12/2024 8:00 AM EST Appointment Cat Scan [address] [place], [place] [id number] CT Lung Screening [facility] Comment on above: CT Lung Screening Start: 07-28-2024 End: 07-28-2024 Patient encounter procedure 07/28/2024 1:30 PM EST Office Visit Pulmonary Medicine [address] [place], [place] [address] Alexandro Monterroso APRN.DIVISION CONTROLLER [address] [place] [address] Persistent cough [R05.3]; Wheezing [R06.2]; Tobacco use [Z72.0] [facility] Comment on above: Persistent cough [R0 5.3]; Wheezing [R06.2]; Tobacco use [Z72.0] Start: 07-28-2024 End: 07-28-2024 ambulatory PULM LAB [facility] Comment on above: Persistent cough [R0 5.3]; Wheezing [R06.2]; Tobacco use [Z72.0] Start: 07-23-2024 End: 07-23-2024 Patient encounter procedure 07/23/2024 8:40 AM EST Office Visit [facility] [place] [address] [facility] [place] [address] Waldo Galo MD [address] [place] [address] [facility] [place] Comment on above: [address] [facility] [facility] Start: 07-12-2024 End: 10-11-2024 Comprehensive metabolic 2000 panel - Serum or Plasma COMPREHENSIVE METABOLIC PANEL Lab Routine Other hyperlipidemia Expected: 07/12/2024, Expires: 10/11/2024 [facility] Work Phone: Comment on above: Expected: 07/12/2024 , Expires: 10/11/2024 Start: 07-12-2024 End: 10-11-2024 Lipid 1996 panel - Serum or Plasma LIPID PANEL BASIC Lab Routine Other hyperlipidemia Expected: 07/12/2024, Expires: 10/11/2024 [facility] Comment on above: Expected: 07/12/2024 , Expires: 10/11/2024 Start: 07-11-2024 End: 07-11-2024 Patient encounter procedure 07/11/2024 8:40 AM EST Office Visit [facility] [place] [address] [place] [address] Waldo Galo MD [address] [place] [address] [facility] [place] [facility] on above: [facility] Start: 05-20-2024 Influenza vaccination Influenza Vacc ine (#1) [facility] Start: 04-20-2024 Covid-19 Vaccine ( season) Covid-19 Vaccine ( season) [facility] Start: 04-20-2024 Influenza vaccination Influenza Vacc ine (#1) [facility] Start: 11-08-2023 [employer] Teammate stdy unatnd w/mi n hrt rate/o2 sat/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 anal 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 STDY UNATND W/ANAL [facility] Start: 10-15-2023 Patient referral [facility] Work Phone: Start: 09-25-2023 Protein measurement [facility] Start: 09-25-2023 Patient referral [facility] Work Phone: Start: 09-24-2023 Measurement of substance [facility] Start: 09-24-2023 Procedure [facility] Start: 09-24-2023 Thiamine measurement [facility] Start: 06-20-2023 Patient discharge [facility] Start: 06-16-2023 Following clinical pathway protocol [facility] Start: 06-16-2023 Assessment of risk o f venous thromboembolism [facility] Start: 06-16-2023 Notification of physician [facility] Start: 06-16-2023 Seizure precautions [facility] Start: 06-16-2023 Vital signs measurements [facility] Start: 06-16-2023 [facility] Start: 06-16-2023 Admission procedure [facility] Start: 06-16-2023 Inhalation therapy procedure [facility] Start: 06-08-2023 [facility] Start: 05-28-2023 Patient referral [facility] Work Phone: Start: 04-20-2023 COVID-19 Vaccine ( season) COVID-19 Vaccine ( season) [facility] Start: 05-20-2022 Influenza vaccination Influenza Vacc ine (#1) [facility] Start: 01-31-2022 Basic metabolic 2000 panel - Serum or Plasma Basic Metabolic Panel [facility] Start: 01-31-2022 Creatinine measurement Basic Metabol ic Panel [facility] Start: 2021 Measurement of occul t blood in single stool specimen FIT [facility] Start: 2021 Screening for malign ant neoplasm of colon CRC Screening [facility] Start: 2021 Screening for malign ant neoplasm of lung Lung Cancer Screening [facility] Start: 2021 Shingles (RZV) Vacci ne (1 of 2) Shingles (RZV) Vaccine (1 of 2) [facility] Start: 2021 Shingrix Vaccine (1 of 2) Pineda grix Vaccine (1 of 2) [facility] Start: 2016 Screening for malign ant neoplasm of colon [facility] Start: 06-27-2015 Pneumococcal vaccination [facility] Start: 06-27-2015 Pneumococcal Vaccine : 50+ (2 of 2 - PCV) Pneumococcal Vaccine: 50+ (2 of 2 - PCV) [facility] Start: 06-21-2015 Pneumococcal vaccination Pneum ococcal Vaccine (2 of 2 - PCV) [facility] Start: 2006 Lipid panel Cholesterol [facility] Start: 1990 Hepatitis A (HAV) Va ccine (optional start 19+ years) Hepatitis A (HAV) Vaccine (optional start 19+ years) [facility] Start: 1990 Hepatitis B vaccination Hepati tis B (HBV) Vaccine (1 of 3 - 19+ 3-dose series) [facility] Start: 1990 Hepatitis B Vaccine (1 of 3 - 19+ 3-dose series) Hepatitis B Vaccine (1 of 3 - 19+ 3-dose series) [facility] Start: 1989 [facility] C [facility] Start: 1986 HIV screening HIV Test [facility] Start: 1971 COVID-19 Vaccine (#1) COVID-19 Vacci ne (#1) [facility] Start: 1971 Hepatitis B vaccination Hepati tis B (HBV) Vaccine (1 of 3 - 3-dose series) [facility] Start: 1971 Screening for malign ant neoplasm of colon Colonoscopy [facility] Blood ammonia measurement [facility] Blood ammonia measurement [facility] Blood ammonia measurement [facility] Clostridioides diffi cile toxin genes [Presence] in Stool by MARCUS with probe detection C. DIFFICILE PCR Lab Routine Diarrhea, unspecified type Ordered: 04/09/2024 [facility] Comment on above: Ordered: 04/09/2024 Cobalamin (Vitamin B 12) [Mass/volume] in Serum or Plasma [facility] Complete blood count [facility] Comprehensive metabo lic 2000 panel - Serum or Plasma [facility] End: 08-27-2025 CT Chest for screening contrast CT LUNG SCREEN IVCON Radiology Routine Encounter for screening for lung cancer Tobacco use 1 Occurrences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 Narrative All review of systems were negative except as mentioned above in the history of present illness and the other review of systems. Vital Signs Vital Signs Vital Signs: 06/16/23 12:08 06/16/23 12:13 06/16/23 12:39 Temperature 37.0 C 37.0 C Temperature Source Temporal Temporal Pulse Rate 109 H 115 H 113 H Respiratory Rate 20 H 14 16 Blood Pressure 160/112 H 152/95 H Blood Pressure Mean 128 114 Blood Pressure Source Monitor Pulse Ox 99 97 99 Oxygen Delivery Method Room Air Room Air 06/16/23 12:47 06/16/23 14:12 Temperature Temperature Source Pulse Rate 104 H 114 H Respiratory Rate 19 H 22 H Blood Pressure 155/87 H 140/83 H Blood Pressure Mean 109 102 Blood Pressure Source Pulse Ox 99 99 Oxygen Delivery Method Room Air Room Air Weight Weight: 90.9 kg Body Mass Index (BMI) 28.7 Physical Exam Const alert Constitutional Narrative: Shaking. Appropriate. Nontoxic. HEENT normocephalic Eyes PERRL and EOMs intact bilaterally Resp normal respiratory effort, no retractions, no use of accessory muscles and clearto auscultation bilaterally Cardio regular rate, regular rhythm, S1 normal heart sound and S2 normal heart sound GI normal to inspection, nondistended, normoactive bowel sounds, soft to palpation,non-tender and non-distended Results Lab / Micro Data Attestation: I reviewed the patient's lab results. 06/16/23 12:24 06/16/23 12:24 Labs: Laboratory Results - last 24 hr 06/16/23 12:24: WBC 5.4, RBC 3.93 L, Hgb 14.6, Hct 41.7, MCV 106.1 H, MCH 37.2 H, MCHC 35.0, RDW Std Deviation 65.4 H, RDW Coeff of Wilma 16.6 H, Plt Count 237, MPV 9.1, Immature Gran % (Auto) 0.600, Neut % (Auto) 68.8, Lymph % (Auto) 20.1, [place] % (Auto) 8.4, Eos % (Auto) 1.5, Baso % (Auto) 0.6, Absolute Neuts (auto) 3.7, Absolute Lymphs (auto) 1.08, Nucleated RBC % 0, Differential Comment SCANNED, Anisocytosis 2+, Microcytosis 1+, Macrocytosis 1+, PT 14.6, INR 1.1, Sodium 137, Potassium 3.8, Chloride 98, Carbon Dioxide 23.0, Anion Gap 16 H, BUN6 L, Creatinine 0.64 L, Estim Creat Clear Calc 139.41, Est GFR (MDRD) Af Amer 170, Est GFR (MDRD) Non-Af 141, BUN/Creatinine Ratio 9.4 L, Glucose 116 H, Calcium 8.3 L, Magnesium 1.9, Total Bilirubin 0.50, Direct Bilirubin 0.18, AST 131 H, ALT 54, Alkaline Phosphatase 84, Total Protein 6.5, Albumin 3.2, Globulin3.3, Valproic Acid 52, Ethyl Alcohol 44.0 06/16/23 13:18: Urine Color Yellow, Urine Clarity Clear, Urine pH 6.5, Ur Specific [place] 1.015, Urine Protein 15 H, Urine Glucose (UA) Normal, Urine Ketones 50 H, Urine Occult Blood 10 H, Urine Nitrite Negative, Urine Bilirubin Negative, Urine Urobilinogen Normal, Ur Leukocyte Esterase Negative, Urine RBC 0SEEN, Urine WBC 0 SEEN, Ur Squamous Epith Cells 0 SEEN, Urine Bacteria 0 SEEN, Urine Mucus 0 SEEN, Urine Opiates Screen NEGATIVE, Urine Methadone Screen NEGATIVE, Ur Barbiturates Screen NEGATIVE, Ur Phencyclidine Scrn NEGATIVE, Ur Amphetamines Screen NEGATIVE, MDMA (Ecstasy) Screen NEGATIVE, U Benzodiazepines Scrn NEGATIVE, Urine Cocaine Screen NEGATIVE, U Cannabinoids Screen POSITIVE H, Ur Drug Screen Comment Assessment & Plan Assessment/Plan (1) Alcohol withdrawal: QUALIFIERS: Complication of substance-induced condition: uncomplicated Qualified Code(s): F10.930 - Alcohol use, unspecified with withdrawal, uncomplicated PLAN: Last drink was on the . Since then he has been shaking and having general malaise. He has not had any history of alcohol withdrawal seizures nor delirium tremens. Patient to be initiated on phenobarbital taper plus thiamine and folate Addiction medicine to see and to facilitate outpatient programs. Once again, patient has been drinking heavily over the past month. Previously had been sober until that time. Patient had been involved in some outpatient programs but has been lost to follow-up. PLAN: Plan Chronic conditions * Seizures: Posttraumatic with subdural hematoma, intraparenchymal hemorrhage. Patient has been seizure-free for about a year. Continue w cenobamate, divalproex, levetiracetam, zonisamide. Pt may use his own as he brought them with him. * GERD: continue w PPI * HTN: continue w amlodipine * COPD: continue w albuterol VTE prophylaxis: Not indicated as patient is low risk. Charges/Coding Visit Charges Inpatient E&M: 63000 Init Hosp L2 06/16/23 1439 <Electronically signed by Sanya Caldwell DO> Cosigner Signature (if applicable): CC: Dr. Vasu Blackwell MD; Dr. Sanya Caldwell DO~ Signed [facility] Work Phone: Hospital Discharge instructions No data available for this section [facility] Reason for referral (narrative)* Outpatient Procedure (Routine) - Pending Review Specialty Diagnoses / Procedures Referred By Contac t Referred To Contact [facility] Diagnoses Persistent cough Wheezing Tobacco use Procedures LUNG VOLUMES Waldo Galo MD [address] [id number] Respiratory [address] [address] Referral ID Status Reason Start Date Expiration Date Visits Requested Visits Authorized [id number] Pending Review Auto-Generat ed Referral 07/23/2024 08/22/2025 1 1 * Outpatient Procedure (Routine) - Authorized Specialty Diagnoses / Procedures Referred By Contac t Referred To Contact [facility] Diagnoses Persistent cough Wheezing Tobacco use Procedures SPIROMETRY - BASELINE AND POST DILATOR BRNCDILAT RSPSE SPMTRY PRE&POST-BRNCDILAT ADMN Waldo Galo MD [address] [place] [address] [address] [id number] Referral ID Status Reason Start Date Expiration Date Visits Requested Visits Authorized [id number] Authorized Auto-Generat ed Referral 07/23/2024 08/22/2025 1 1 [facility] for referral (narrative)No [facility]* TANA Bass: PERFORM Event Display: Patient Summary Documents Authored Date: [id number] [facility] Summary Purpose Family History Relationship Condition Age at Onset Recorded Date/T odalis mother Suicide Unknown Depression Unknown Arthritis Unknown Anxiety Unknown father Suicide Unknown Alcoholism Unknown grandfather Alcoholism Unknown Advance Directives Advance Directive Response Recorded Date/ Time Advance Directives No September 17, 2017 6:50am Living Will No December 30, 2021 8 :19pm Power of Pin Inserter No December 30, 2021 8:19pm Latest Code Status on File Code Status Date Activated Date Inactivated Comments Full Code 01/29/2021 12:33 AM 01/31/2021 7:23 PM Documentation of decision pr ocess for this code status: Patient and surrogate unable or unavailable to discuss. Defaulting to the previously documented code status. Full Code 01/27/2021 11:43 PM 01/29/2021 12:33 AM Documentation of decision pr ocess for this code status: Patient and surrogate unable or unavailable to discuss. There is no previous documentation of code status. Defaulting to Full Code Advance Directive Response Recorded Date/ Time Advance Directives No May 28, 2023 10:27am Living Will No May 28 10:27am Power of Pin Inserter No May 28 023 10:27am Advance Directive Response Recorded Date/ Time Advance Directives No May 28, 2023 10:27am Living Will No June 16 12:11pm Power of Pin Inserter No June 16, 2023 12:11pm Advance Directive Response Recorded Date/ Time Advance Directives No May 28, 2023 10:27am Living Will No June 16 3:24pm Power of Pin Inserter No June 16, 2023 3:24pm Advance Directive Response Recorded Date/ Time Advance Directives No May 28, 2023 9:27am Living Will No June 16 2:24pm Power of Pin Inserter No June 16, 2023 2:24pm Latest Code Status on File Code Status Date Activated Date Inactivated Comments Full Code 01/29/2021 12:33 AM 01/31/2021 7:23 PM Question Answer Comments Documentation of decision process for this code status: Patient and surrogate unable or unavailable to discuss. Defaulting to the previously documented code status. Code Status History Code Status Date Activated Date Inactivated Comments Full Code 01/27/2021 11:43 PM 01/29/2021 12:33 AM Question Answer Comments Documentation of decision process for this code status: Patient and surrogate unable or unavailable to discuss. There is no previous documentation of code status. Defaulting to Full Code Date Activated Date Inactivated Comments 01/29/2021 12:33 AM 01/31/2021 7:23 PM Question Answer Comments Documentation of decision pr ocess for this code status: Patient and surrogate unable or unavailable to discuss. Defaulting to the previously documented code status. Date Activated Date Inactivated Comments 01/27/2021 11:43 PM 01/29/2021 12:33 AM Question Answer Comments Documentation of decision pr ocess for this code status: Patient and surrogate unable or unavailable to discuss. There is no previous documentation of code status. Defaulting to Full Code Advance Directive Response Recorded Date/ Time Advance Directives No May 28, 2023 10:27am Hospital Course Note HNO ID: [id number] Author: Mary Molina (Pa) Service: Trauma Author Type: Physician Electrolysis Needle Operator Type: Discharge Summary Filed: 06/18/2019 11:21 AM Note Text: Attestation signed by Francis Joy at 06/18/2019 11:34 AM Patient seen and discussed with DESTINI. Okay to be discharged. DISCHARGE SUMMARY PATIENT NAME: Rhoda Poon Code Status: Not on file Highest Readmission Risk Score: 41 The 30 day readmissions risk score is derived from an internally validated risk model which evaluates patient level characteristics, utilization history, medication orders and lab results up until the day of discharge. Patients with a score of 40 or above are considered highest risk for readmission. Specific patient level drivers will be listed at the bottom of the summary. Admission Information Admission Information ADMIT DATE: 05/20 (more content not included)... Note HNO ID: [id number] Author: Swapnil Moseley Service: Thoracic Surgery Author Type: Resident Type: Procedures Filed: 06/07/2019 11:18 AM Note Text: BEDSIDE PROCEDURE NOTE INTUBATION Performed by: Rachel Moseley Authorized by: Lakesha Wilkes Consent/[place] Protocol Written consent obtained: No, emergent procedure Sign In Communication: Completed Time Out completed: Team confirms correct patient, procedure, side/site, position (if applicable) and completion AND review of fire risk assessment/protocols (if appropriate) Sign Out Discussion: Yes Pre-procedure Details: Type: Orotracheal Medications: Analgesia (see MAR): Fentanyl Anxiolysis (see MAR): Midazolam Muscle Relaxant (see MAR): Succinylcholine Procedure Details: Indication: Airway protection and respiratory failure Respiratory Failure Type: Acute, with hypercapnia Difficulty Encountered: Anterior larynx and laryngeal edema Equipment: Video laryngoscope and endotracheal tube ET Tube Size: 7 Cuffed: yes The patien (more content not included)... Note HNO ID: [id number] Author: Mario Beltran Service: General Surgery Author Type: Physician Type: Procedures Filed: 06/12/2019 1:15 PM Note Text: BEDSIDE PROCEDURE NOTE BRONCHOSCOPY Date/Start Time: 06/12/2019 1:00 PM Performed by: Susan Witt MD Authorized by: Lilliana Beltran Consent/[place] Protocol Written Consent Obtained: Yes Sign In Communication: Completed Time Out completed: Team confirms correct patient, procedure, side/site, position (if applicable) and completion AND review of fire risk assessment/protocols (if appropriate) Affirmation of Time Out: Yes Sign Out Discussion: Yes Pre-procedure Details: Personnel directly involved with the procedure wore the appropriate PPE. PPE Used: Sterile gloves, mask with eye shield and cap Medications: Analgesia (see MAR): Fentanyl Sedation (see MAR): Propofol Procedure Details: Indication: Infiltrate The bronchoscope was introduced via endotracheal tube. Maneuvers Performed: BAL and suctioning BAL - Location: Left main bronchus BAL (more content not included)... Procedure Findings Note HNO ID: [id number] Author: Swapnil Moseley Service: Thoracic Surgery Author Type: Resident Type: Procedures Filed: 06/07/2019 11:18 AM Note Text: BEDSIDE PROCEDURE NOTE INTUBATION Performed by: Rachel Moseley Authorized by: Lakesha Wilkes Consent/[place] Protocol Written consent obtained: No, emergent procedure Sign In Communication: Completed Time Out completed: Team confirms correct patient, procedure, side/site, position (if applicable) and completion AND review of fire risk assessment/protocols (if appropriate) Sign Out Discussion: Yes Pre-procedure Details: Type: Orotracheal Medications: Analgesia (see MAR): Fentanyl Anxiolysis (see MAR): Midazolam Muscle Relaxant (see MAR): Succinylcholine Procedure Details: Indication: Airway protection and respiratory failure Respiratory Failure Type: Acute, with hypercapnia Difficulty Encountered: Anterior larynx and laryngeal edema Equipment: Video laryngoscope and endotracheal tube ET Tube Size: 7 Cuffed: yes The patien (more content not included)... Note HNO ID: [id number] Author: Mario Beltran Service: General Surgery Author Type: Physician Type: Procedures Filed: 06/12/2019 1:15 PM Note Text: BEDSIDE PROCEDURE NOTE BRONCHOSCOPY Date/Start Time: 06/12/2019 1:00 PM Performed by: Susan Witt MD Authorized by: Lilliana Beltran Consent/[place] Protocol Written Consent Obtained: Yes Sign In Communication: Completed Time Out completed: Team confirms correct patient, procedure, side/site, position (if applicable) and completion AND review of fire risk assessment/protocols (if appropriate) Affirmation of Time Out: Yes Sign Out Discussion: Yes Pre-procedure Details: Personnel directly involved with the procedure wore the appropriate PPE. PPE Used: Sterile gloves, mask with eye shield and cap Medications: Analgesia (see MAR): Fentanyl Sedation (see MAR): Propofol Procedure Details: Indication: Infiltrate The bronchoscope was introduced via endotracheal tube. Maneuvers Performed: BAL and suctioning BAL - Location: Left main bronchus BAL (more content not included)... Chief Complaint and Reason for Visit Chief Complaint 3 M FU possible hernia ABD PAIN Reason for Visit Benign essential hyp ertension GERD (gastroesophageal reflux disease) Seizure disorder Nausea RLQ abdominal pain Chief Complaint EPILEPSY TBI, EPILEPSY ALCOHOL WITHDRAWAL Detox ALCOHOL WITHDRAWAL ALCOHOL WITHDRAWAL ALCOHOL WITHDRAWAL ALCOHOL WITHDRAWAL Z87.820 G40.909 MED FU Reason for Visit Epilepsy Hypersomnia Tension headache Epilepsy Alcohol abuse Alcohol withdrawal Benign essential hypertension Chronic diarrhea GERD (gastroesophageal reflux disease) Chief Complaint TBI, EPILEPSY ALCOHOL WITHDRAWAL Detox ALCOHOL WITHDRAWAL ALCOHOL WITHDRAWAL ALCOHOL WITHDRAWAL ALCOHOL WITHDRAWAL Z87.820 G40.909 MED FU Reason for Visit Epilepsy Alcohol abuse Alcohol withdrawal Benign essential hypertension Chronic diarrhea GERD (gastroesophageal reflux disease) Chief Complaint Z87.820 G40.909 MED FU 4 M FU HYPERSOMNIA Reason for Visit Benign essential hyp ertension Chronic diarrhea GERD (gastroesophageal reflux disease) Elevated liver enzymes Epilepsy Hypersomnia Nocturnal enuresis Chief Complaint Admit Date 3 M FU September 30, 2024 8:04am 3 M FU January 01, 2025 8:00a m Reason for Visit Admit Date Elevated TSH September 30, 2024 8:04am Epilepsy September 30, 2024 8:04am Tension headache September 30, 2024 8:04am Hyperammonemia September 30, 2024 8:04am Chief Complaint Admit Date 3 M FU September 30, 2024 8:04am 3 M FU January 01, 2025 8:00a m REQUESTS NEURO-PSYCH REFERRAL January 15, 2025 7:55am Reason for Visit Admit Date Epilepsy September 30, 2024 8:04am Hyperammonemia September 30, 2024 8:04am Tension headache September 30, 2024 8:04am Elevated TSH September 30, 2024 8:04am Epilepsy January 01, 2025 8:00a m Hyperammonemia January 01, 2025 8:00a m Hypersomnia January 01, 2025 8:00a m Anxiety and depression January 01, 2025 8: 00am Tension headache January 01, 2025 8:00a m Elevated TSH January 01, 2025 8:00a m Epilepsy January 15, 2025 7:55a m Hyperammonemia January 15, 2025 7:55a m Hypersomnia January 15, 2025 7:55a m Memory loss January 15, 2025 7:55a m Anxiety and depression January 15, 2025 7: 55am Tension headache January 15, 2025 7:55a m Elevated TSH January 15, 2025 7:55a m Reason for Referral Specialty Diagnoses / Procedures Referred By Hai cordero Referred To Contact CT IMAGING Diagnoses Encounter for screening for lung cancer Tobacco use Procedures CT LUNG SCREEN WO IVCON COMPUTED TOMOGRAPHY THORAX LW DOSE LNG CA SCR Chayo- Alexandro Monterroso, RECEIVING MANAGER.DIVISION CONTROLLER [address] [place] [address] [place] [address] Referral ID Status Reason Start Date Expiration Date Visits Requested Visits Authorized [id number] Authorized Auto-Generat ed Referral 07/28/2024 08/27/2025 1 1 Specialty Diagnoses / Procedures Referred By Hai t Referred To Contact General Surgery Diagnoses Diarrhea, unspecified type Screening for colon cancer Procedures CONSULT TO GENERAL SURGERY OFFICE/OUTPATIENT [facility] 60 MINUTES Waldo Galo MD [address] [place] [address] Referral ID Status Reason Start Date Expiration Date Visits Requested Visits Authorized [id number] Authorized PCP Requested Referral 04/09/2024 04/09/2025 1 1 Additional Source Comments (unrecognized sect ion and content) No Status Records FoundNo Status Records FoundNo Status Records FoundNo Status Records FoundNo Status Records FoundNo Status Records FoundNo Status Records FoundNo Status Records Found INFORMATION SOURCE (unrecogn ized section and content) DATE CREATED AUTHOR 02/08/2018 [facility] DATE CREATED AUTHOR AUTHOR'S ORGANIZ ATION 08/11/2019 [facility] DATE CREATED AUTHOR AUTHOR'S ORGANIZ ATION 11/30/2019 [facility] DATE CREATED AUTHOR AUTHOR'S ORGANIZ ATION 09/18/2021 [facility] DATE CREATED AUTHOR AUTHOR'S ORGANIZ ATION 02/22/2022 [facility] DATE CREATED AUTHOR AUTHOR'S ORGANIZ ATION 01/14/2024 [facility] DATE CREATED AUTHOR AUTHOR'S ORGANIZ ATION 01/28/2025 [facility] DATE CREATED AUTHOR AUTHOR'S ORGANIZ ATION 02/04/2025 [facility] Goals (unrecognized section and content) Goals may be documented in a n alternate section Care Teams (unrecognized sec tion and content) Team Status: Active Member Role Status Dates Dr. Miguel Galo MD Family Provider Active Dr. Vasu Blackwell MD Primary Care Provider Active Team Status: Inactive Member Role Status Dates Dr. Vasu Blackwell MD Primary Care P rovider, Attending Provider, Referring Provider Active Team Status: Inactive Member Role Status Dates Dr. Vasu Blackwell MD Primary Care Provider, Refer ring Provider Active Dr. Errol Moore MD Attending Provider Active Team Status: Inactive Member Role Status Dates Dr. Vasu Blackwell MD Primary Care Provider Active Dr. Errol Moore MD Attending Provider, Referring Provider Active Team Status: Active Member Role Status Dates Dr. Vasu Blackwell MD Primary Care Provider Active Dr. Wolfgang Tyler DO Emergency Provider Active Dr. Sanya Caldwell DO Attending Provider Active Team Status: Active Member Role Status Dates Dr. Vasu Blackwell MD Primary Care Provider Active Dr. Wolfgang Tyler DO Emergency Provider Active Dr. Sanya Caldwell DO Admit Provider, At tending Provider, Referring Provider Active Team Status: Active Member Role Status Dates Dr. Vasu Blackwell MD Primary Care Provider Active Dr. Wolfgang Tyler DO Emergency Provider Active Dr. Sanya Caldwell DO Admit Provider, At tending Provider, Referring Provider, Other Provider Active Team Status: Inactive Member Role Status Dates Dr. Vasu Blackwell MD Primary Care Provider Active Dr. Wolfgang Tyler DO Emergency Provider Active Dr. Sanya Caldwell DO Admit Provider, Re ferring Provider, Other Provider Active Dr. Tera Bloom MD Attending Provider Active Team Status: Active Member Role Status Dates Dr. Vasu Blackwell MD Primary Care Provider Active Dr. Wolfgang Tyler DO Emergency Provider Active Dr. Sanya Caldwell DO Admit Provider, At tending Provider, Other Provider Active Team Status: Active Member Role Status Dates Dr. Vasu Blackwell MD Primary Care Provider Active Dr. Wolfgang Tyler DO Emergency Provider Active Dr. Sanya Caldwell DO Admit Provider, Other Provider A ctive Dr. Tera Bloom MD Attending Provider, Other Provi bandar Active Team Status: Active Member Role Status Dates Dr. Vasu Blackwell MD Primary Care Provider, Atten ding Provider Active Team Status: Inactive Member Role Status Dates Dr. Vasu Blackwell MD Primary Care Provider, Felipe micha Provider Active [employer] Grower Relationship Specialty Start Date End Date Waldo Galo MD [address] [place] [address] PCP - General Family Medicine 04/09/24 Chavez Bennett MD [address] [place] [address] Referring Neurosurgery 07/09/19 [employer] Grower Relationship Specialty Start Date End Date Waldo Galo MD [address] [place] [address] PCP - General Family Medicine 04/09/24 Chavez Bennett MD [address] [place] [address] Referring Neurosurgery 07/09/19 Bean Sprout Grower Relationship Specialty Start Date End Date Waldo Galo MD [address] [place], [place] [address] PCP - General Family Medicine 04/09/24 Chavez Bennett MD [address] [place] [address] Referring Neurosurgery 07/09/19 Bean Sprout Grower Relationship Specialty Start Date End Date Waldo Galo MD [address] [place] [address] PCP - General Family Medicine 04/09/24 Chavez Bennett MD [address] [place] [address] Referring Neurosurgery 07/09/19 Bean Sprout Grower Relationship Specialty Start Date End Date Waldo Galo MD [address] [place], [place] [address] PCP - General Family Medicine 04/09/24 Chavez Bennett MD [address] [place] [address] Referring Neurosurgery 07/09/19 Bean Sprout Grower Relationship Specialty Start Date End Date Waldo Galo MD [address] [place], [place] [address] PCP - General Family Medicine 04/09/24 Chavez Bennett MD [address] [place] [address] Referring Neurosurgery 07/09/19 Bean Sprout Grower Relationship Specialty Start Date End Date Waldo Galo MD [address] [place], [place] [address] PCP - General Family Medicine 04/09/24 Chavez Bennett MD [address] [place] [address] Referring Neurosurgery 07/09/19 Shira Cheatham APRN.CNP [address] [place] [address] Dust Control Engineer Family Medicine 07/26/24 Bean Sprout Grower Relationship Specialty Start Date End Date Waldo Galo MD [address] [place] [address] PCP - General Family Medicine 04/09/24 Chavez Bennett MD [address] [place] [address] Referring Neurosurgery 07/09/19 PodlogarShira APRN.DIVISION CONTROLLER [address] [place] [address] Dust Control Engineer Family Medicine 07/26/24 Bean Sprout Grower Relationship Specialty Start Date End Date Waldo Galo MD [address] [place] [address] PCP - General Family Medicine 04/09/24 Chavez Bennett MD [address] [facility] [place] [address] Referring Neurosurgery 07/09/19 PodlogarShira APRN.DIVISION CONTROLLER [address] [place] [address] Dust Control Engineer Family [facility] 07/26/24 Bean Sprout Grower Relationship Specialty Start Date End Date Waldo Galo MD [address] [place] [address] PCP - General Family Medicine 04/09/24 Chavez Bennett MD [address] [place] [address] Referring Neurosurgery 07/09/19 PodlogarShira APRN.DIVISION CONTROLLER [address] [place] [address] Dust Control Engineer Family Medicine 07/26/24 Bean Sprout Grower Relationship Specialty Start Date End Date Waldo Galo MD [address] [place] [address] PCP - General Family Medicine 04/09/24 Chavez Bennett MD [address] [facility] [place] [address] Referring Neurosurgery 07/09/19 PodlogarShira APRN.DIVISION CONTROLLER [address] [place] [address] [facility] 07/26/24 Bean Sprout Grower Relationship Specialty Start Date End Date Waldo Galo MD [address] [place] [address] PCP - General Family Medicine 04/09/24 Chavez Bennett MD [address] [facility] [place] [address] Referring Neurosurgery 07/09/19 PodlogarShira APRN.DIVISION CONTROLLER [address] [place] [address] Dust Control Engineer Family [facility] 07/26/24 Suzy Medel APRN.DIVISION CONTROLLER [address] [place], [place] [id number] [facility] 11/10/24 Team Status: Inactive Member Role Status Dates Dr. Vasu Blackwell MD Primary Care Provider Active Start: September 30, 2024 End: September 30, 2024 Dr. Vasu Blackwell MD Referring Provider Active Start: September 30, 2024 End: September 30, 2024 Dr. Errol Moore MD Attending Provider Active Start: September 30, 2024 End: September 30, 2024 Team Status: Inactive Member Role Status Dates Dr. Vasu Blackwell MD Primary Care Provider Active Start: October 02, 2024 End: October 02, 2024 Dr. Errol Moore MD Attending Provider Active Start: October 02, 2024 End: October 02, 2024 Dr. Errol Moore MD Referring Provider Active Start: October 02, 2024 End: October 02, 2024 Team Status: Inactive Member Role Status Dates Dr. Vasu Blackwell MD Primary Care Provider Active Start: January 01, 2025 End: January 01, 2025 Dr. Vasu Blackwell MD Referring Provider Active Start: January 01, 2025 End: January 01, 2025 DOMINIQUE Golden Attending Provider Active S tart: January 01, 2025 End: January 01, 2025 Team Status: Inactive Member Role Status Dates Dr. Vasu Blackwell MD Primary Care Provider Active Start: January 15, 2025 End: January 15, 2025 Dr. Vasu Blackwell MD Referring Provider Active Start: January 15, 2025 End: January 15, 2025 Dr. Errol Moore MD Attending Provider Active Start: January 15, 2025 End: January 15, 2025 Bean Sprout Grower Relationship Specialty Start Date End Date Waldo Galo MD [address] [place], [place] [address] PCP - General Family Medicine 04/09/24 Chavez Bennett MD [address] [facility] [place] [address] Referring Neurosurgery 07/09/19 Shira Cheatham APRN.DIVISION CONTROLLER [address] [place], [place] [address] Dust Control Engineer Family Medicine 07/26/24 Errol Moore MD [address] [place] [address] [place] Referring Team Neurology 01/22/25 Bean Sprout Grower Relationship Specialty Start Date End Date Waldo Galo MD [address] [place] [address] PCP - General Family Medicine 04/09/24 Chavez Bennett MD [address] [place] [address] Referring Neurosurgery 07/09/19 PodlogarShira APRN.[facility] [address] [place] [address] Dust Control Engineer Family Medicine 07/26/24 Errol Moore MD [facility] [address] [place] [id number] [place] Referring Team Neurology 01/22/25 Team Status: Active Member Role Status Dates Dr. Miguel Galo MD Primary Care Provider Acti ve Team Status: Inactive Member Role Status Dates Dr. Errol Moore MD Attending Provider Active Start: January 29, 2025 End: January 29, 2025 Dr. Errol Moore MD Referring Provider Active Start: January 29, 2025 End: January 29, 2025 Dr. Miguel Galo MD Primary Care Provider Acti ve Start: January 29, 2025 End: January 29, 2025 Source Comments (unrecognize d section and content) In the event this informatio n is protected by the Federal Confidentiality of Alcohol and Drug Abuse Patient Records regulations: The Federal rules restrict any use of the information to criminally investigate or prosecute any alcohol or drug abuse patient.[facility] Center[facility] the event this information is protected by the Federal Confidentiality of Alcohol and Drug Abuse Patient Records regulations: The Federal rules restrict any use of the information to criminally investigate or prosecute any alcohol or drug abuse patient.[facility] CenterIn the event this information is protected by the Federal Confidentiality of Alcohol and Drug Abuse Patient Records regulations: The Federal rules restrict any use of the information to criminally investigate or prosecute any alcohol or drug abuse patient.[facility] CenterIn the event this information is protected by the Federal Confidentiality of Alcohol and Drug Abuse Patient Records regulations: The Federal rules restrict any use of the information to criminally investigate or prosecute any alcohol or drug abuse patient.[facility] CenterIn the event this information is protected by the Federal Confidentiality of Alcohol and Drug Abuse Patient Records regulations: The Federal rules restrict any use of the information to criminally investigate or prosecute any alcohol or drug abuse patient.[facility] CenterIn the event this information is protected by the Federal Confidentiality of Alcohol and Drug Abuse Patient Records regulations: The Federal rules restrict any use of the information to criminally investigate or prosecute any alcohol or drug abuse patient.[facility] CenterIn the event this information is protected by the Federal Confidentiality of Alcohol and Drug Abuse Patient Records regulations: The Federal rules restrict any use of the information to criminally investigate or prosecute any alcohol or drug abuse patient.[facility] CenterIn the event this information is protected by the Federal Confidentiality of Alcohol and Drug Abuse Patient Records regulations: The Federal rules restrict any use of the information to criminally investigate or prosecute any alcohol or drug abuse patient.[facility] CenterIn the event this information is protected by the Federal Confidentiality of Alcohol and Drug Abuse Patient Records regulations: The Federal rules restrict any use of the information to criminally investigate or prosecute any alcohol or drug abuse patient.[facility] CenterIn the event this information is protected by the Federal Confidentiality of Alcohol and Drug Abuse Patient Records regulations: The Federal rules restrict any use of the information to criminally investigate or prosecute any alcohol or drug abuse patient.[facility] CenterIn the event this information is protected by the Federal Confidentiality of Alcohol and Drug Abuse Patient Records regulations: The Federal rules restrict any use of the information to criminally investigate or prosecute any alcohol or drug abuse patient.[facility] CenterIn the event this information is protected by the Federal Confidentiality of Alcohol and Drug Abuse Patient Records regulations: The Federal rules restrict any use of the information to criminally investigate or prosecute any alcohol or drug abuse patient.[facility] CenterIn the event this information is protected by the Federal Confidentiality of Alcohol and Drug Abuse Patient Records regulations: The Federal rules restrict any use of the information to criminally investigate or prosecute any alcohol or drug abuse patient.[facility] CenterIn the event this information is protected by the Federal Confidentiality of Alcohol and Drug Abuse Patient Records regulations: The Federal rules restrict any use of the information to criminally investigate or prosecute any alcohol or drug abuse patient.[facility] CenterIn the event this information is protected by the Federal Confidentiality of Alcohol and Drug Abuse Patient Records regulations: The Federal rules restrict any use of the information to criminally investigate or prosecute any alcohol or drug abuse patient.[facility] Reason for Visit (unrecogniz ed section and content) Reason Comments Results Reason Comments Establish Care Diarrhea X 8 months Reason Comments Edema Bilateral feet X 1. 5 weeks Reason Comments fax order to [facility] Reason Comments Orders Reason Onset Date Comments Refill Request 07/18/2024 Reason Comments Follow Up 3 month- patient rep orting he is using inhaler up in 2-3 weeks Reason Comments Spirometry Specialty Diagnoses / Procedures Referred By Contac t Referred [facility] Diagnoses Persistent cough Wheezing Tobacco use Procedures SPIROMETRY - BASELINE AND POST DILATOR BRNCDILAT RSPSE SPMTRY PRE&POST-BRNCDILAT ADMN Waldo Galo MD [address] [place] [address] [facility] [address] [place] [address] Referral ID Status Reason Start Date Expiration Date V isits Requested Visits Authorized [id number] Closed Auto-Generate d Referral 07/23/2024 08/22/2025 1 1 Specialty Diagnoses / Procedures Referred By Contac t Referred To Contact [facility] Diagnoses Persistent cough Wheezing Tobacco use Procedures LUNG VOLUMES Waldo Galo MD [address] [place] [address] [address] Referral ID Status Reason Start Date Expiration Date V isits Requested Visits Authorized [id number] Closed Auto-Generate d Referral 08/20/2023 08/19/2024 1 1 Reason Comments New Patient LCS Reason Comments Radiology CT Specialty Diagnoses / Procedures Referred By Contac t Referred To Contact CT IMAGING Diagnoses Encounter for screening for lung cancer Tobacco use Procedures CT LUNG SCREEN WO IVCON COMPUTED TOMOGRAPHY THORAX LW DOSE LNG CA Alexandro Bradshaw, LUDA.DIVISION CONTROLLER [address] [place] [address] Ct Imaging [place] [address] Referral ID Status Reason Start Date Expiration Date V isits Requested Visits Authorized [id number] Closed Auto-Generate d Referral 07/30/2024 08/29/2024 1 1 Reason Onset Date Comments Refill Request 11/10/2024 Reason Comments Received Outside Medical Records Externa l referral to [facility] Reason Comments F/U 6 months FOR RECORDS PERTAINING TO PATIENTS WHO ARE OR HAVE BEEN ENROLLED IN A CHEMICAL DEPENDENCY/SUBSTANCEABUSE PROGRAM, SOME INFORMATION MAY BE OMITTED. This clinical summary was aggregated from multiple sources. Caution should be exercised in using it in the provision of clinical care. This summary normalizes information from multiple sources, and as a consequence, information in this document may materially change the coding, format and clinical context of patient data. In addition, data may be omitted in some cases. CLINICAL DECISIONS SHOULD BE BASED ON THE PRIMARY CLINICAL RECORDS. [facility]. provides no warranty or guarantee of the accuracy or completeness of information in this document.
--- NOTE | 2025-02-05 07:55 | MRI_ITS ---
PROCEDURE: BRAIN WITHOUT CONTRAST 02/05/2025 REASON FOR EXAM: MEMORY LOSS; EPILEPSY TECHNIQUE: BRAIN WITHOUT CONTRAST Multiplanar and multisequence images were obtained. COMPARISON: 09/13/2023. FINDINGS: Left temporal encephalomalacia. No evidence of acute hemorrhage or infarction. Mild global parenchymal atrophy. Periventricular white matter T2/FLAIR hyperintense foci likely representing minimal chronic microvascular ischemia. No evidence of acute hemorrhage or infarction. The paranasal sinuses are clear. The mastoid air cells are well aerated. MRI/Brain without Contrast IMPRESSION: No acute intracranial abnormality. Chronic and ancillary findings as above. Reading Location: [place] [address]
== END | disposition home or self-care (01) ==
LOC: OPMRI 07:13
PROVIDERS: PCP Family Medicine; Referring Provider Psychiatry & Neurology Neurology; Visit Provider Psychiatry & Neurology Neurology
DX: G40.409 Other generalized epilepsy and epileptic syndromes, not intractable, without status epilepticus (principal); R41.3 Other amnesia
CPT/HCPCS: 70551

== ENCOUNTER → 2025-02-17 | Outpatient (CLI) | payer MEDICAID, SELFPAY ==
--- OUTSIDE RECORDS SUMMARY | 2025-02-17 06:19 | XMS RPT_ITS | CCD ---
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 0.9-2.4 [facility] Comment on above: Performed By: #### L 501.2300, L501.9520, L501.5200, L500.4050 #### [facility] [address] [place], [address] ALK P 373 U/L High 45-117 [facility] Comment on above: Performed By: #### L 501.2300, L501.9520, L501.5200, L500.4050 #### [facility] [address] [place], [address] ALT [Catalytic activity/Vol] 108 U/L High 16-61 [facility] Comment on above: Performed By: #### L 501.2300, L501.9520, L501.5200, L500.4050 #### [facility] [address] [place], [address] AST [Catalytic activity/Vol] 107 U/L High 15-37 [facility] Comment on above: Performed By: #### L 501.2300, L501.9520, L501.5200, L500.4050 #### [facility] [address] [place], [address] Bilirubin [Mass/Vol] 0.70 mg/dL Normal 0.20-1.00 [facility] Comment on above: Result Comment: For patients on eltrombopag therapy, use of Dimension [place] TBIL is not recommended. Performed By: #### L 501.2300, L501.9520, L501.5200, L500.4050 #### [facility] [address] [place], [address] BUN/CRE 7.8 RATIO Low 10-20 [facility] Comment on above: Performed By: #### L 501.2300, L501.9520, L501.5200, L500.4050 #### [facility] [address] [place], [address] CA,Total 8.0 mg/dL Low 8.5-10.1 [facility] Comment on above: Performed By: #### L 501.2300, L501.9520, L501.5200, L500.4050 #### [facility] [address] [place], [address] Chloride [Moles/Vol] 99 mmol/L Normal 98-107 [facility] Comment on above: Performed By: #### L 501.2300, L501.9520, L501.5200, L500.4050 #### [facility] [address] [place], [address] CO2 [Moles/Vol] 26.0 mmol/L Normal 21.0-32.0 [facility] Comment on above: Performed By: #### L 501.2300, L501.9520, L501.5200, L500.4050 #### [facility] [address] [place], [address] Creatinine [Mass/Vol] 0.77 mg/dL Normal 0.70-1.30 [facility] Comment on above: Result Comment: The validity of the calculated GFR GFRAA in patients over 70 years has not been determined. Clinical correlation is essential. Performed By: #### L 501.2300, L501.9520, L501.5200, L500.4050 #### [facility] [address] [place], [address] ECRCL 123.51 ml/min Normal [facility] Comment on above: Performed By: #### L 501.2300, L501.9520, L501.5200, L500.4050 #### [facility] [address] [place], [address] EST GFR - AA 136 mL/min Normal >60 [facility] Comment on above: Result Comment: Afri can Welsh GFR Calc Performed By: #### L 501.2300, L501.9520, L501.5200, L500.4050 #### [facility] [address] [place], [address] GAP 8 Normal 5-15 [facility] Comment on above: Performed By: #### L 501.2300, L501.9520, L501.5200, L500.4050 #### [facility] [address] [place], [address] GFR/1.73 sq M.predicted among non-blacks MDRD (S/P/Bld) [Vol rate/Area] 113 mL/min/{1.73_m2} Normal >60 [facility] Comment on above: Result Comment: Non- GFR Calc Performed By: #### L 501.2300, L501.9520, L501.5200, L500.4050 #### [facility] [address] [place], [address] Globulin (S) [Mass/Vol] 3.3 g/dL Normal 2.2-4.2 [facility] Comment on above: Performed By: #### L 501.2300, L501.9520, L501.5200, L500.4050 #### [facility] [address] [place], [address] Glucose [Mass/Vol] 130 mg/dL High 74-106 [facility] Comment on above: Result Comment: Fast ing Glucose result greater than or equal to 126 mg/dL suggests DIABETES MELLITUS per A.D.A. criteria. Performed By: #### L 501.2300, L501.9520, L501.5200, L500.4050 #### [facility] [address] [place], [address] Potassium [Moles/Vol] 4.0 mmol/L Normal 3.5-5.1 [facility] Comment on above: Performed By: #### L 501.2300, L501.9520, L501.5200, L500.4050 #### [facility] [address] [place], [address] Sodium [Moles/Vol] 133 mmol/L Low 136-145 [facility] Comment on above: Performed By: #### L 501.2300, L501.9520, L501.5200, L500.4050 #### [facility] [address] [place], [address] T PROT 6.6 g/dL Normal 6.4-8.2 [facility] Comment on above: Performed By: #### L 501.2300, L501.9520, L501.5200, L500.4050 #### [facility] [address] [place], [address] Urea nitrogen [Mass/Vol] 6 mg/dL Low 7-18 [facility] Comment on above: Performed By: #### L 501.2300, L501.9520, L501.5200, L500.4050 #### [facility] [address] [place], [address] Magnesiumon 06-15-2024 Magnesium [Mass/Vol] 1.8 mg/dL Normal 1.6-2.6 [facility] Comment on above: Performed By: #### L 501.2300, L501.9520, L501.5200, L500.4050 #### [facility] [address] [place], [address] Phosphoruson 06-15-2024 Phosphate [Mass/Vol] 2.7 mg/dL Normal 2.5-4.9 [facility] Comment on above: Performed By: #### L 501.2300, L501.9520, L501.5200, L500.4050 #### [facility] [address] [place], [address] Thyroid Stim Hormone (TSH)on 06-15-2024 TSH 4.500 uIU/mL High 0.358-3.740 [facility] Comment on above: Performed By: #### L 501.2300, L501.9520, L501.5200, L500.4050 #### [facility] [address] [place], [address] 12 Lead EKGon 06-14-2024 12 Lead EKG [facility] [address] [place] [address] 12 Lead EKG 06/14/24 1950 MR#: [id number] Acct: [id number] Name: JERMAN POON Rep #: [id number] : 1970 54 From: Nii Jordan MD [...] Normal ECG Confirmed by YOUNG BONNER, NII ([id number]), mapping editor ANGIE ZHAO ([id number]) on 06/16/2024 9:38:07 AM Referred By: WILFRED Confirmed By:NII JORDAN MD 06/16/24 0938 Date Nii Jordan MD CC: Dr. Vasu Blackwell MD; Dr. Reza Price DO; Dr. Karl Duenas DO Signed Normal [facility] Alcohol, Blood (Medical)-Ser [facility] 06-14-2024 SERUM ETOH 189.0 mg/dL Normal [facility] Comment on above: Result Comment: The serum:whole blood ethanol ratio is approximately 1.14 and varies slightly with hematocrit. Medical Alcohol reference interval and critical value in non-tolerant individuals; 50 - 100 Impairment 100 Intoxication 100 - 250 Severe Poisoning 250 - 400 Deep/possible fatal coma Performed By: #### L 500.4050, L501.9100, L100.0100, L501.2450, L505.5000 #### [facility] [address] [place], [address] CBC W/Diff, Automatedon 10-2 6-2024 Absolute Lymph 2.38 X10 3/uL Normal 0.83-4.51 [facility] Comment on above: Performed By: #### L 500.4050, L501.9100, L100.0100, L501.2450, L505.5000 #### [facility] [address] [place], [address] Absolute Neut 4.1 X10 3/uL Normal 2.0-7.7 [facility] Comment on above: Performed By: #### L 500.4050, L501.9100, L100.0100, L501.2450, L505.5000 #### [facility] [address] [place], [address] Basophils/100 WBC (Bld) 0.9 % Normal 0-1 [facility] Comment on above: Performed By: #### L 500.4050, L501.9100, L100.0100, L501.2450, L505.5000 #### [facility] [address] [place], [address] Eosinophils/100 WBC (Bld) 6.5 % High 0-5 [facility] Comment on above: Performed By: #### L 500.4050, L501.9100, L100.0100, L501.2450, L505.5000 #### [facility] [address] [place], [address] Erythrocyte distribution width (RBC) [Ratio] 12.9 % Normal 11.6-14.6 [facility] Comment on above: Performed By: #### L 500.4050, L501.9100, L100.0100, L501.2450, L505.5000 #### [facility] [address] [place], [address] Hematocrit (Bld) [Volume fraction] 45.2 % Normal 40-54 [facility] Comment on above: Performed By: #### L 500.4050, L501.9100, L100.0100, L501.2450, L505.5000 #### [facility] [address] [place], [address] Hemoglobin (Bld) [Mass/Vol] 15.9 g/dL Normal 13.0-16.5 [facility] Comment on above: Performed By: #### L 500.4050, L501.9100, L100.0100, L501.2450, L505.5000 #### [facility] [address] [place], [address] IG% 0.300 Normal 0.0-0.9 [facility] Comment on above: Result Comment: IG% - Immature Granulocytes (promyelocytes, myelocytes and metamyelocytes) > 1% indicates that a LEFT SHIFT is Present. Performed By: #### L 500.4050, L501.9100, L100.0100, L501.2450, L505.5000 #### [facility] [address] [place], [address] Lymphocytes/100 WBC (Bld) 31.6 % Normal 19-41 [facility] Comment on above: Performed By: #### L 500.4050, L501.9100, L100.0100, L501.2450, L505.5000 #### [facility] [address] [place], [address] MCH (RBC) [Entitic mass] 34.6 pg High 27.0-32.0 [facility] Comment on above: Performed By: #### L 500.4050, L501.9100, L100.0100, L501.2450, L505.5000 #### [facility] [address] [place], [address] MCHC (RBC) [Mass/Vol] 35.2 g/dL Normal 32-36 [facility] Comment on above: Performed By: #### L 500.4050, L501.9100, L100.0100, L501.2450, L505.5000 #### [facility] [address] [place], [address] MCV (RBC) [Entitic vol] 98.3 fL High 80-94 [facility] Comment on above: Performed By: #### L 500.4050, L501.9100, L100.0100, L501.2450, L505.5000 #### [facility] [address] [place], [address] Monocytes/100 WBC (Bld) 6.8 % Normal 0-10 [facility] Comment on above: Performed By: #### L 500.4050, L501.9100, L100.0100, L501.2450, L505.5000 #### [facility] [address] [place], [address] Neutrophils/100 WBC (Bld) 53.9 % Normal 47-70 [facility] Comment on above: Performed By: #### L 500.4050, L501.9100, L100.0100, L501.2450, L505.5000 #### [facility] [address] [place], [address] Nucleated RBC (Bld) [#/Vol] 0 10*3/uL Normal 0-5 [facility] Comment on above: Performed By: #### L 500.4050, L501.9100, L100.0100, L501.2450, L505.5000 #### [facility] [address] [place], [address] Platelet mean volume (Bld) [Entitic vol] 9.0 fL Normal 6.2-12.0 [facility] Comment on above: Performed By: #### L 500.4050, L501.9100, L100.0100, L501.2450, L505.5000 #### [facility] [address] [place], [address] Platelets (Bld) [#/Vol] 236 10*3/uL Normal 150-450 [facility] Comment on above: Performed By: #### L 500.4050, L501.9100, L100.0100, L501.2450, L505.5000 #### [facility] [address] [place], [address] RBC (Bld) [#/Vol] 4.60 10*6/uL Normal 4.6-6.2 [facility] Comment on above: Performed By: #### L 500.4050, L501.9100, L100.0100, L501.2450, L505.5000 #### [facility] [address] [place], [address] RDW SD 46.1 fl High 35.1-43.9 [facility] Comment on above: Performed By: #### L 500.4050, L501.9100, L100.0100, L501.2450, L505.5000 #### [facility] [address] [place], [address] WBC (Bld) [#/Vol] 7.5 10*3/uL Normal 4.4-11.0 [facility] Comment on above: Performed By: #### L 500.4050, L501.9100, L100.0100, L501.2450, L505.5000 #### [facility] [address] [place], [address] Comprehensive Metabolic Prof ilon 06-14-2024 Albumin [Mass/Vol] 3.5 g/dL Normal 3.2-5.0 [facility] Comment on above: Performed By: #### L 500.4050, L501.9100, L100.0100, L501.2450, L505.5000 #### [facility] [address] [place], [address] Albumin/Globulin [Mass ratio] 1.0 {ratio} Normal 0.9-2.4 [facility] Comment on above: Performed By: #### L 500.4050, L501.9100, L100.0100, L501.2450, L505.5000 #### [facility] [address] [place], [address] ALK P 407 U/L High 45-117 [facility] Comment on above: Performed By: #### L 500.4050, L501.9100, L100.0100, L501.2450, L505.5000 #### [facility] [address] [place], [address] ALT [Catalytic activity/Vol] 131 U/L High 16-61 [facility] Comment on above: Performed By: #### L 500.4050, L501.9100, L100.0100, L501.2450, L505.5000 #### [facility] [address] [place], [address] AST [Catalytic activity/Vol] 146 U/L High 15-37 [facility] Comment on above: Result Comment: Slig ht Hemolysis, Result may be falsely increased. Performed By: #### L 500.4050, L501.9100, L100.0100, L501.2450, L505.5000 #### [facility] [address] [place], [address] Bilirubin [Mass/Vol] 0.60 mg/dL Normal 0.20-1.00 [facility] Comment on above: Result Comment: For patients on eltrombopag therapy, use of Dimension [place] TBIL is not recommended. Performed By: #### L 500.4050, L501.9100, L100.0100, L501.2450, L505.5000 #### [facility] [address] [place], [address] BUN/CRE 7.7 RATIO Low 10-20 [facility] Comment on above: Performed By: #### L 500.4050, L501.9100, L100.0100, L501.2450, L505.5000 #### [facility] [address] [place], [address] CA,Total 8.6 mg/dL Normal 8.5-10.1 [facility] Comment on above: Performed By: #### L 500.4050, L501.9100, L100.0100, L501.2450, L505.5000 #### [facility] [address] [place], [address] Chloride [Moles/Vol] 96 mmol/L Low 98-107 [facility] Comment on above: Performed By: #### L 500.4050, L501.9100, L100.0100, L501.2450, L505.5000 #### [facility] [address] [place], [address] CO2 [Moles/Vol] 24.0 mmol/L Normal 21.0-32.0 [facility] Comment on above: Performed By: #### L 500.4050, L501.9100, L100.0100, L501.2450, L505.5000 #### [facility] [address] [place], [address] Creatinine [Mass/Vol] 0.65 mg/dL Low 0.70-1.30 [facility] Comment on above: Result Comment: The validity of the calculated GFR GFRAA in patients over 70 years has not been determined. Clinical correlation is essential. Performed By: #### L 500.4050, L501.9100, L100.0100, L501.2450, L505.5000 #### [facility] [address] [place], [address] EST GFR - AA 165 mL/min Normal >60 [facility] Comment on above: Result Comment: Afri can Welsh GFR Calc Performed By: #### L 500.4050, L501.9100, L100.0100, L501.2450, L505.5000 #### [facility] [address] [place], [address] GAP 13 Normal 5-15 [facility] Comment on above: Performed By: #### L 500.4050, L501.9100, L100.0100, L501.2450, L505.5000 #### [facility] [address] [place], [address] GFR/1.73 sq M.predicted among non-blacks MDRD (S/P/Bld) [Vol rate/Area] 137 mL/min/{1.73_m2} Normal >60 [facility] Comment on above: Result Comment: Non- GFR Calc Performed By: #### L 500.4050, L501.9100, L100.0100, L501.2450, L505.5000 #### [facility] [address] [place], [address] Globulin (S) [Mass/Vol] 3.5 g/dL Normal 2.2-4.2 [facility] Comment on above: Performed By: #### L 500.4050, L501.9100, L100.0100, L501.2450, L505.5000 #### [facility] [address] [place], [address] Glucose [Mass/Vol] 96 mg/dL Normal 74-106 [facility] Comment on above: Performed By: #### L 500.4050, L501.9100, L100.0100, L501.2450, L505.5000 #### [facility] [address] [place], [address] Potassium [Moles/Vol] 4.1 mmol/L Normal 3.5-5.1 [facility] Comment on above: Result Comment: Slig ht Hemolysis, Result may be falsely increased. Performed By: #### L 500.4050, L501.9100, L100.0100, L501.2450, L505.5000 #### [facility] [address] [place], [address] Sodium [Moles/Vol] 133 mmol/L Low 136-145 [facility] Comment on above: Performed By: #### L 500.4050, L501.9100, L100.0100, L501.2450, L505.5000 #### [facility] [address] [place], [address] T PROT 7.0 g/dL Normal 6.4-8.2 [facility] Comment on above: Performed By: #### L 500.4050, L501.9100, L100.0100, L501.2450, L505.5000 #### [facility] [address] [place], [address] Urea nitrogen [Mass/Vol] 5 mg/dL Low 7-18 [facility] Comment on above: Performed By: #### L 500.4050, L501.9100, L100.0100, L501.2450, L505.5000 #### [facility] [address] [place], [address] Emergency Department Summary on 06-14-2024 Emergency Department Summary [facility] Medical Records Department [address] [place] [address] Emergency Department Summary 06/14/24 MR#: [id number] Acct: [id number] Name: JERMAN POON Rep #: [id number] : 1970 54 From: Karl Duenas DO PCP: Dr. Vasu Blackwell MD Status:REG ER Location: ED HPI History of Present Illness Chief Complaint: ETOH Intox PFSH [facility] Medical History Alcohol dependence Epilepsy History of [...] 98 Oxygen Delivery Method Room Air MDM [facility] Narrative Medical decision making narrative: HISTORY OF [...] noted MEDIC (more content not included)... Normal [facility]&P Exam - Hospitalist [facility] Medical Records Department [address] [place] [address] H P Exam - Hospitalist 06/14/242041 MR#: [id number] Acct: [id number] Name: JERMAN POON Rep #: [id number] : 1970 54 From: Davy Douglass DO PCP: Dr. Vasu Blackwell MD Status:ADM [facility] - General General Date of Admission: 06/14/24 [...] January 11, 2024 for who presents to [facility] ER complaining of once again wanting help [...] is expected to extend beyond 2 midnights. [facility] Medical History (Updated 06/15/24 @ 03:[address] Davy Douglass, DO) Depression Smoker Hypertension Alcohol dependence [...] Eyes: Pa (more content not included)... Normal [facility] Lipaseon 06-14-2024 Lipase [Catalytic activity/Vol] 18 U/L Normal 13-75 [facility] Comment on above: Result Comment: Arturo charlton note: LIPASE revised reference range effective 22. New Lipase methodology. Expected to produce lower values than the previous assay method. NEW Reference Range: 13 - 75 U/L Performed By: #### L 500.4050, L501.9100, L100.0100, L501.2450, L505.5000 #### [facility] [address] [place], [address] Urine Drug Screen ([facility])on 06-14-2024 AMPHETAMINES Negative Normal <1000 ng/mL [facility] Comment on above: Performed By: #### L 500.4050, L501.9100, L100.0100, L501.2450, L505.5000 #### [facility] [address] [place], [address] BARBITIURATES Negative Normal < 200 ng/mL [facility] Comment on above: Performed By: #### L 500.4050, L501.9100, L100.0100, L501.2450, L505.5000 #### [facility] [address] [place], [address] BENZODIAZIPINE Negative Normal < 200 ng/mL [facility] Comment on above: Performed By: #### L 500.4050, L501.9100, L100.0100, L501.2450, L505.5000 #### [facility] [address] [place], [address] COCAINE Negative Normal < 300 ng/mL [facility] Comment on above: Performed By: #### L 500.4050, L501.9100, L100.0100, L501.2450, L505.5000 #### [facility] [address] [place] [address] ECSTACY Negative Normal < 500 ng/mL [facility] Comment on above: Performed By: #### L 500.4050, L501.9100, L100.0100, L501.2450, L505.5000 #### [facility] [address] [place] [address] METHADONE Negative Normal < 300 ng/mL [facility] Comment on above: Performed By: #### L 500.4050, L501.9100, L100.0100, L501.2450, L505.5000 #### [facility] [place] [address] OPIATES Negative Normal < 300 ng/mL [facility] Comment on above: Performed By: #### L 500.4050, L501.9100, L100.0100, L501.2450, L505.5000 #### [facility] [place] [address] PCP Negative Normal < 25 ng/mL [facility] Comment on above: Performed By: #### L 500.4050, L501.9100, L100.0100, L501.2450, L505.5000 #### [facility] [address] [place], [place], [facility] THC Positive Abnormal < 50 ng/mL [facility] Comment on above: Performed By: #### L 500.4050, L501.9100, L100.0100, L501.2450, L505.5000 #### [facility] [address] [place], [address] VISTA UDS PH 5 Normal [facility] Comment on above: Performed By: #### L 500.4050, L501.9100, L100.0100, L501.2450, L505.5000 #### [facility] [address] [place], [address] Valproic Acid (Depakene) Lev cheyanne 06-14-2024 VALPROIC ACID 32 ug/mL Low 50-100 [facility] Comment on above: Performed By: #### L 501.2300, L501.9520, L501.5200, L500.4050 #### [facility] [address] [place], [address] CNPChyna 04-11-2024 CNPN Telephone (FAMWS) RHODA POON ([id number]) 1970 M Date Time Provider Department 04/11/24 WALDO GALO [facility] During your visit today, we recorded the [...] [facility] [place]. KATHY Pak Christopher B, MD 04/11/2024 2:13 [...] 0 COMPREHENSIVE METABOLIC PANEL [SQCMP] Order #: [id number] FUTURE LIPID PANEL BASIC [SQLIPB] Order #: [id number] FUTURE Prescriptions as of 04/11/2024 - atorvastatin [...] Bipolar affective disorder (HCC) [F31.9] 12/21/2012 Epilepsy ([facility]) [G40.909] 12/21/2012 Pain of upper abdomen [R10.10] 02/15/2017 Subdural hematoma ([facility]) [S06.5XAA] 06/01/2019 DTs (delirium tremens) ([facility]) [F10.931] 06/02/2019 06/18/2019 SAH (subarachnoid hemorrhage) ([facility]) [I60.9] 06/02/2019 Closed fracture of one rib of left side [S22.32*06/02/2019 Closed fracture of vault of skull ([facility]) [S02.0X*06/02/2019 Aphasia [R47.01] 06/02/2019 06/18/2019 Malnutrition of mild degree ([facility]) [E44.1] 06/05/2019 Acute respiratory failure with hypercapnia ([facility]*06/07/2019 06/18/2019 Fever [R50.9] 06/13/2019 06/18/2019 Leukocytosis [D72.829] 06/13/2019 Cavitary pneumonia [J18.9, J98.4] 06/13/2019 Alcoholism in remission ([facility]) [F10.21] Marijuana use [F12.90] Prescriptions ordered this encounter Disp Refills Start End ATORVASTATIN 20 MG TABLET 90 t* 0 04/11/2024 07/10/2024 Route: ORAL Sig: Take 1 tablet by mouth once daily. For cholesterol. Encounter Status:Closed by SONYA KANG on 04/11/24 Normal [facility] VITAMIN B1 (THIAMINE), WHOLE BLOODOrdered By: Mindy Garg on 04-11-2024 Interpretation and review of laboratory results Normal [facility] Thiamine (Bld) [Moles/Vol] 179.7 nmol/L 84.3 - 213.3 nmol/L [facility] Comment on above: This assay measures the concentration of thiamine diphosphate (TDP), the primary active form of vitamin B1. Approximately 90 percent of vitamin B1 present in whole blood is TDP. Thiamine and thiamine monophosphate, which comprise the remaining 10 percent, are not measured. This test was developed and its performance characteristics determined by [facility] [place] ([facility]). It has not been cleared or approved by the FDA. [facility] is regulated under CLIA as qualified to perform high-complexity testing. This test is used for clinical purposes. It should not be regarded as investigational or for research. [facility] Comprehensive metabolic 2000 panelon 04-10-2024 Albumin [Mass/Vol] 4.3 g/dL 3.9 - 4.9 g/dL [facility] ALP [Catalytic activity/Vol] 85 U/L 38 - 113 U/L [facility] ALT [Catalytic activity/Vol] 23 U/L 10 - 54 U/L [facility] Anion gap [Moles/Vol] 15 mmol/L 8 - 15 mmol/L [facility] AST [Catalytic activity/Vol] 22 U/L 14 - 40 U/L [facility] Bilirubin [Mass/Vol] 0.2 mg/dL 0.2 - 1 .3 mg/dL [facility] Calcium [Mass/Vol] 8.5 mg/dL 8.5 - 10. 2 mg/dL [facility] Chloride [Moles/Vol] 103 mmol/L 98 - 10 7 mmol/L [facility] CO2 [Moles/Vol] 20 mmol/L Low 22 - 30 mmol/L [facility] Creatinine [Mass/Vol] 0.65 mg/dL Low 0.73 - 1.22 mg/dL [facility] GFR/1.73 sq M.predicted among non-blacks MDRD (S/P/Bld) [Vol rate/Area] 113 mL/min/{1.73_m2} - PINF [facility] Comment on above: Estimated Glomerular Filtration Rate [...] 106 mg/dL High 74 - 99 mg/dL [facility] Comment on above: The [place] Diabete s Association (ADA) provides guidance for [...] Standards of Medical Care in Diabetes 2016, [place] Diabetes Association. Diabetes Care. 2016.39(Suppl 1). Potassium [Moles/Vol] 4.0 mmol/L 3.7 - 5.1 mmol/L [facility] Protein [Mass/Vol] 6.6 g/dL 6.3 - 8.0 g/dL [facility] Sodium [Moles/Vol] 138 mmol/L 136 - 144 mmol/L [facility] Urea nitrogen [Mass/Vol] 8 mg/dL Low 9 - 24 mg/dL [facility] LIPID PANEL, NONFASTINGon Cholesterol [Mass/Vol] 227 mg/dL High NINF - 200 mg/dL [facility] Comment on above: <200 mg/dL, Desirabl e 200-239 mg/dL, Borderline high >239 mg/dL, High HDL Cholesterol, Nonfasting 44 mg/dL 39 - PINF mg/dL [facility] Comment on above: 40-59 mg/dL, Accepta ble >59 mg/dL, High: Negative risk factor for coronary heart disease <40 mg/dL, Low: Positive risk factor for coronary heart disease LDL Cholesterol, Nonfasting [facility] Comment on above: Unable to calculate due to increased Triglycerides. A Direct LDL Cholesterol measurement will not be performed. If clinically indicated, a fasting Basic Lipid Panel (LIPB) may be ordered. LDL/HDL Ratio, Nonfasting [facility] Comment on above: Unable to calculate due to elevated Triglycerides. Reference: 1. National Cholesterol Education Program ATP III Guideline At-A-Glance Quick Desk Reference: National Heart, Lung, and Blood [place]. National Institutes of Health. 2001: NIH Publication No. 01-3305. 2. An International Atherosclerosis Society position paper: global recommendations for the management of dyslipidemia: executive summary, Atherosclerosis. 2014: 232(2):410-413. Non HDL Cholesterol, Nonfasting 183 mg/dL High NINF - 130 mg/dL [facility] Comment on above: <130 mg/dL, Optimal 130-159 mg/dL, Near optimal/above optimal 160-189 mg/dL, Borderline high 190-219 mg/dL, High >219 mg/dL, Very high Secondary prevention optimal non HDL Cholesterol levels are recommended to be <100 mg/dL Total Chol/HDL Ratio, Nonfasting 5.16 mg/dL High NINF - 5.10 mg/dL [facility] Triglycerides, Nonfasting 633 mg/dL High NINF - 150 mg/dL [facility] Comment on above: <150 mg/dL, Normal 150-199 mg/dL, Borderline high 200-499 mg/dL, High >499 mg/dL, Very high VLDL Cholesterol, Nonfasting [facility] Comment on above: Unable to calculate due to elevated Triglycerides. No Panel Informationon 04-10 Interpretation and review of laboratory results Abnormal [facility] THYROID STIMULATING HORMONEo n 04-10-2024 TSH Qn 1.370 m[IU]/L [facility] TSH Qnon 04-10-2024 Interpretation and review of laboratory results Normal [facility] CBC W Auto Differential pane l (Bld)on 04-09-2024 Basophils (Bld) [#/Vol] 0.04 10*3/uL [facility] Basophils/100 WBC (Bld) 0.5 % [facility] Differential cell count method Nom (Bld) Auto [facility] Eosinophils (Bld) [#/Vol] 0.22 10*3/uL [facility] Eosinophils/100 WBC (Bld) 2.7 % [facility] Erythrocyte distribution width (RBC) [Ratio] 13.1 % 11.5 - 15.0 % [facility] Hematocrit (Bld) [Volume fraction] 46.8 % 39.0 - 51.0 % [facility] Hemoglobin (Bld) [Mass/Vol] 15.6 g/dL 13.0 - 17.0 g/dL [facility] Immature granulocytes (Bld) [#/Vol] 0.03 10*3/uL [facility] Immature granulocytes/100 WBC (Bld) 0.4 % [facility] Interpretation and review of laboratory results Abnormal [facility] Lymphocytes (Bld) [#/Vol] 1.71 10*3/uL [facility] Lymphocytes/100 WBC (Bld) 20.9 % [facility] MCH (RBC) [Entitic mass] 34.6 pg High 26.0 - 34.0 pg [facility] MCHC (RBC) [Mass/Vol] 33.3 g/dL 30.5 - 36.0 g/dL [facility] MCV (RBC) [Entitic vol] 103.8 fL High 80.0 - 100.0 fL [facility] Monocytes (Bld) [#/Vol] 0.67 10*3/uL [facility] Monocytes/100 WBC (Bld) 8.2 % [facility] Neutrophils (Bld) [#/Vol] 5.52 10*3/uL [facility] Neutrophils/100 WBC (Bld) 67.3 % [facility] Nucleated RBC (Bld) [#/Vol] [facility] Nucleated RBC/100 WBC (Bld) [Ratio] 0.0 % /100 WBC [facility] Platelet mean volume (Bld) [Entitic vol] 9.9 fL 9.0 - 12.7 fL [facility] Platelets (Bld) [#/Vol] 233 10*3/uL [facility] RBC (Bld) [#/Vol] 4.51 10*6/uL 4.20 - 6.0 0 m/uL [facility] WBC (Bld) [#/Vol] 8.19 10*3/uL [facility] Basophils (Bld) [#/Vol] 0.04 10*3/uL Normal <0.11 [facility] Comment on above: Order Comment: Speci men Type: BLOOD SPECIMENOrdering Facility: [facility] Address: [address] [place] [address] Performed By: #### 5 7021-8 ####[facility] LABCLIA [id number] [place] [address] [place] Basophils/100 WBC (Bld) 0.5 % Normal [facility] Comment on above: Order Comment: Speci men Type: BLOOD SPECIMENOrdering Facility: [facility] Address: [address] [place] [address] Performed By: #### 5 7021-8 ####[facility] LABCLIA [id number] [place] [address] [place] Differential cell count method Nom (Bld) Auto Normal [facility] Comment on above: Order Comment: Speci men Type: BLOOD SPECIMENOrdering Facility: [facility] Address: [address] [place] [address] Performed By: #### 5 7021-8 ####[facility] LABCLIA [id number] [place] [address] [place] Eosinophils (Bld) [#/Vol] 0.22 10*3/uL Normal <0.46 [facility] Comment on above: Order Comment: Speci men Type: BLOOD SPECIMENOrdering Facility: [facility] Address: [address] [place] [address] Performed By: #### 5 7021-8 ####[facility] LABCLIA [id number] [place] [address] [place] Eosinophils/100 WBC (Bld) 2.7 % Normal [facility] Comment on above: Order Comment: Speci men Type: BLOOD SPECIMENOrdering Facility: [facility] Address: [address] [place] [address] Performed By: #### 5 7021-8 ####[facility] LABCLIA [id number] [place] [address] [place] Erythrocyte distribution width (RBC) [Ratio] 13.1 % Normal 11.5-15.0 [facility] Comment on above: Order Comment: Speci men Type: BLOOD SPECIMENOrdering Facility: [facility] Address: [address] [place] [address] Performed By: #### 5 7021-8 ####[facility] LABCLIA [id number] [place] [address] [place] Hematocrit (Bld) [Volume fraction] 46.8 % Normal 39.0-51.0 [facility] Comment on above: Order Comment: Speci men Type: BLOOD SPECIMENOrdering Facility: [facility] Address: [address] [place] [address] Performed By: #### 5 7021-8 ####[facility] LABCLIA [id number] [place] [address] [place] Hemoglobin (Bld) [Mass/Vol] 15.6 g/dL Normal 13.0-17.0 [facility] Comment on above: Order Comment: Speci men Type: BLOOD SPECIMENOrdering Facility: [facility] Address: [address] [place] [address] Performed By: #### 5 7021-8 ####[facility] LABIA [id number] [place] [address] [place] Immature granulocytes (Bld) [#/Vol] 0.03 10*3/uL Normal <0.10 [facility] Comment on above: Order Comment: Speci men Type: BLOOD SPECIMENOrdering Facility: [facility] Address: [address] [place] [address] Performed By: #### 5 7021-8 ####[facility] LABCLIA [id number] [place] [address] [place] Immature granulocytes/100 WBC (Bld) 0.4 % Normal [facility] Comment on above: Order Comment: Speci men Type: BLOOD SPECIMENOrdering Facility: [facility] Address: [address] [place] [address] Performed By: #### 5 7021-8 ####[facility] LABIA [id number] [place] [address] [place] Lymphocytes (Bld) [#/Vol] 1.71 10*3/uL Normal 1.00-4.00 [facility] Comment on above: Order Comment: Speci men Type: BLOOD SPECIMENOrdering Facility: [facility] Address: [address] [place] [address] Performed By: #### 5 7021-8 ####[facility] LABIA [id number] [place] [address] [place] Lymphocytes/100 WBC (Bld) 20.9 % Normal [facility] Comment on above: Order Comment: Speci men Type: BLOOD SPECIMENOrdering Facility: [facility] Address: [address] [place] [address] Performed By: #### 5 7021-8 ####[facility] LABIA [id number] [place] [address] [place] MCH (RBC) [Entitic mass] 34.6 pg High 26.0-34.0 [facility] Comment on above: Order Comment: Speci men Type: BLOOD SPECIMENOrdering Facility: [facility] Address: [address] [place] [address] Performed By: #### 5 7021-8 ####[facility] LABIA [id number] [place] [address] [place] MCHC (RBC) [Mass/Vol] 33.3 g/dL Normal 30.5-36.0 [facility] Comment on above: Order Comment: Speci men Type: BLOOD SPECIMENOrdering Facility: [facility] Address: [address] [place] [address] Performed By: #### 5 7021-8 ####[facility] LABCLIA [id number] [place] [address] [place] MCV (RBC) [Entitic vol] 103.8 fL High 80.0-100.0 [facility] Comment on above: Order Comment: Speci men Type: BLOOD SPECIMENOrdering Facility: [facility] Address: [address] [place] [address] Performed By: #### 5 7021-8 ####[facility] LABCLIA [id number] [place] [address] [place] Monocytes (Bld) [#/Vol] 0.67 10*3/uL Normal <0.87 [facility] Comment on above: Order Comment: Speci men Type: BLOOD SPECIMENOrdering Facility: [facility] Address: [address] [place] [address] Performed By: #### 5 7021-8 ####[facility] LABCLIA [id number] [place] [address] [place] Monocytes/100 WBC (Bld) 8.2 % Normal [facility] Comment on above: Order Comment: Speci men Type: BLOOD SPECIMENOrdering Facility: [facility] Address: [address] [place] [address] Performed By: #### 5 7021-8 ####[facility] LABCLIA [id number] [place] [address] [place] Neutrophils (Bld) [#/Vol] 5.52 10*3/uL Normal 1.45-7.50 [facility] Comment on above: Order Comment: Speci men Type: BLOOD SPECIMENOrdering Facility: [facility] Address: [address] [place] [address] Performed By: #### 5 7021-8 ####[facility] LABCLIA [id number] [place] [address] [place] Neutrophils/100 WBC (Bld) 67.3 % Normal [facility] Comment on above: Order Comment: Speci men Type: BLOOD SPECIMENOrdering Facility: [facility] Address: [address] [place] [address] Performed By: #### 5 7021-8 ####[facility] LABIA [id number] [place] [address] [place] Nucleated RBC (Bld) [#/Vol] 10*3/uL Normal <0.01 [facility] Comment on above: Order Comment: Speci men Type: BLOOD SPECIMENOrdering Facility: [facility] Address: [address] [place] [address] Performed By: #### 5 7021-8 ####[facility] LABIA [id number] [place] [address] [place] Nucleated RBC/100 WBC (Bld) [Ratio] 0.0 /100 WBC Normal [facility] Comment on above: Order Comment: Speci men Type: BLOOD SPECIMENOrdering Facility: [facility] Address: [address] [place] [address] Performed By: #### 5 7021-8 ####[facility] LABIA [id number] [place] [address] [place] Platelet mean volume (Bld) [Entitic vol] 9.9 fL Normal 9.0-12.7 [facility] Comment on above: Order Comment: Speci men Type: BLOOD SPECIMENOrdering Facility: [facility] Address: [address] [place] [address] Performed By: #### 5 7021-8 ####[facility] LABIA [id number] [place] [address] [place] Platelets (Bld) [#/Vol] 233 10*3/uL Normal 150-400 [facility] Comment on above: Order Comment: Speci men Type: BLOOD SPECIMENOrdering Facility: [facility] Address: [address] [place] [address] Performed By: #### 5 7021-8 ####[facility] LABCLIA [id number] [place] [id number] [place] RBC (Bld) [#/Vol] 4.51 10*6/uL Normal 4.20-6.00 [facility] Comment on above: Order Comment: Speci men Type: BLOOD SPECIMENOrdering Facility: [facility] Address: [address] [place] [address] Performed By: #### 5 7021-8 ####[facility] LABCLIA [id number] [place] [address] [place] WBC (Bld) [#/Vol] 8.19 10*3/uL Normal 3.70-11.00 [facility] Comment on above: Order Comment: Speci men Type: BLOOD SPECIMENOrdering Facility: [facility] Address: [address] [place] [address] Performed By: #### 5 7021-8 ####[facility] LABCLIA [id number] [address] [place] CNOVon 04-09-2024 CNOV Office Visit (FAMPWS ) RHODA POON ([id number]) 1970 M Date Time Provider Department 04/09/24 [...] Above Complaints. Previous PCP Dr. Blackwell at [facility] [place]. Last OV was reportedly 1 month ago. [...] MEDICAL HISTORY No date: Alcoholism in remission ([facility]) 1989: Bipolar affective disorder ([facility]) 1994- : Concussion, unspecified Comment: Head injury 12/21/2012: Epilepsy ([facility]) Comment: ~ 2008. Maybe caused from trauma [...] relapsed Sep 10 x3wks - Detoxed @ [facility] (hx drinking 1 L of 100 proof [...] Adult) Pu (more content not included)... Normal [facility] Comprehensive metabolic 2000 panelon 04-09-2024 Albumin [Mass/Vol] 4.3 g/dL Normal 3.9-4.9 [facility] Comment on above: Order Comment: Speci men Type: BLOOD SPECIMENOrdering Facility: [facility] Address: [address] [place] [address] Performed By: #### 2 4323-8, LIPNF, 6-3 ####[facility] LABCLIA [id number] [place] [address] [place] ALP [Catalytic activity/Vol] 85 U/L Normal 38-113 [facility] Comment on above: Order Comment: Speci men Type: BLOOD SPECIMENOrdering Facility: [facility] Address: [address] [place] [address] Performed By: #### 2 4323-8, LIPNF, 3015-3 ####[facility] LABCLIA [id number] [place] [address] [place] ALT [Catalytic activity/Vol] 23 U/L Normal 10-54 [facility] Comment on above: Order Comment: Speci men Type: BLOOD SPECIMENOrdering Facility: [facility] Address: [address] [place] [address] Performed By: #### 2 4323-8, LIPNF, 3015-3 ####[facility] LABCLIA [id number] [place] [address] [place] Anion gap [Moles/Vol] 15 mmol/L Normal 8-15 [facility] Comment on above: Order Comment: Speci men Type: BLOOD SPECIMENOrdering Facility: [facility] Address: [address] [place] [address] Performed By: #### 2 4323-8, LIPNF, 6-3 ####[facility] LABCLIA [id number] [place] [address] [place] AST [Catalytic activity/Vol] 22 U/L Normal 14-40 [facility] Comment on above: Order Comment: Speci men Type: BLOOD SPECIMENOrdering Facility: [facility] Address: [address] [place] [address] Performed By: #### 2 4323-8, LIPNF, 6-3 ####[facility] LABCLIA [id number] [place] [address] [place] Bilirubin [Mass/Vol] 0.2 mg/dL Normal 0.2-1.3 [facility] Comment on above: Order Comment: Speci men Type: BLOOD SPECIMENOrdering Facility: [facility] Address: [address] [place] [address] Performed By: #### 2 4323-8, LIPNF, 6-3 ####[facility] LABCLIA [id number] [place] [address] [place] Calcium [Mass/Vol] 8.5 mg/dL Normal 8.5-10.2 [facility] Comment on above: Order Comment: Speci men Type: BLOOD SPECIMENOrdering Facility: [facility] Address: [address] [place] [address] Performed By: #### 2 4323-8, LIPNF, 6-3 ####[facility] LABCLIA [id number] [place] [address] [place] Chloride [Moles/Vol] 103 mmol/L Normal 98-107 [facility] Comment on above: Order Comment: Speci men Type: BLOOD SPECIMENOrdering Facility: [facility] Address: [address] [place] [address] Performed By: #### 2 4323-8, LIPNF, 6-3 ####[facility] LABCLIA [id number] [place] [id number] [place] CO2 [Moles/Vol] 20 mmol/L Low 22-30 [facility] Comment on above: Order Comment: Speci men Type: BLOOD SPECIMENOrdering Facility: [facility] Address: [address] [place] [address] Performed By: #### 2 4323-8, LIPNF, 3016-3 ####[facility] LABCLIA [id number] [place] [address] [place] Creatinine [Mass/Vol] 0.65 mg/dL Low 0.73-1.22 [facility] Comment on above: Order Comment: Eric men Type: BLOOD SPECIMENOrdering Facility: [facility] Address: [address] [place] [address] Performed By: #### 2 4323-8, GERMAIN, 3015-3 ####[facility] LABIA [id number] [place] [address] [place] Creatinine and Glomerular filtration rate.predicted panel (S/P/Bld) 113 mL/min/1.73m??? Normal >=60 [facility] Comment on above: Order Comment: Eric cage Type: BLOOD SPECIMENOrdering Facility: [facility] Address: [address] [place] [address] Result Comment: Eugenie mated Glomerular Filtration Rate [...] GFR. Performed By: #### 2 4323-8, GERMAIN, 3015-3 ####[facility] LABIA [id number] [place] [address] [place] Glucose [Mass/Vol] 106 mg/dL High 74-99 [facility] Comment on above: Order Comment: Dreai men Type: BLOOD SPECIMENOrdering Facility: [facility] Address: [address] [place] [address] Result Comment: The [place] Diabetes Association (ADA) provides guidance for cutoff [...] Standards of Medical Care in Diabetes 2016, [place] Diabetes Association. Diabetes Care. 2016.39(Suppl 1). Performed By: #### 2 4323-8, LIPNF, 6-3 ####[facility] LABCLIA [id number] [place] [address] [place] Potassium [Moles/Vol] 4.0 mmol/L Normal 3.7-5.1 [facility] Comment on above: Order Comment: Speci men Type: BLOOD SPECIMENOrdering Facility: [facility] Address: [address] [place] [address] Performed By: #### 2 432-8, LIPNF, 3015-3 ####[facility] LABIA [id number] [place] [address] [place] Protein [Mass/Vol] 6.6 g/dL Normal 6.3-8.0 [facility] Comment on above: Order Comment: Speci men Type: BLOOD SPECIMENOrdering Facility: [facility] Address: [address] [place] [address] Performed By: #### 2 4323-8, LIPNF, 3015-3 ####[facility] LABCLIA [id number] [place] [address] [place] Sodium [Moles/Vol] 138 mmol/L Normal 136-144 [facility] Comment on above: Order Comment: Speci men Type: BLOOD SPECIMENOrdering Facility: [facility] Address: [address] [place] [address] Performed By: #### 2 4323-8, LIPNF, 6-3 ####[facility] LABCLIA [id number] [place] [address] [place] Urea nitrogen [Mass/Vol] 8 mg/dL Low 9-24 [facility] Comment on above: Order Comment: Speci men Type: BLOOD SPECIMENOrdering Facility: [facility] Address: [address] [place] [address] Performed By: #### 2 4323-8, LIPNF, 3016-3 ####[facility] LABCLIA [id number] [place] [address] [place] ETHANOL/ALCOHOLon 04-09-2024 Ethanol [Mass/Vol] mg/dL NINF - 11 mg/dL [facility] Ethanol SerPl-mCncon 024 Ethanol [Mass/Vol] mg/dL Normal <11 [facility] Comment on above: Order Comment: Speci men Type: BLOOD SPECIMENOrdering Facility: [facility] Address: [address] [place] [address] Performed By: #### 5 643-2 ####[facility] LABCLIA [id number] [place] [address] [place] Ethanol [Mass/Vol]on 024 Interpretation and review of laboratory results Normal [facility] LIPID PANEL, NONFASTINGon Cholesterol [Mass/Vol] 227 mg/dL High <[address] [facility] Comment on above: Order Comment: Speci men Type: BLOOD SPECIMENOrdering Facility: [facility] Address: [address] [place] [address] Result Comment: <200 mg/dL, Desirable 200-239 mg/dL, Borderline high >239 mg/dL, High Performed By: #### 2 4323-8, LIPNF, 3016-3 ####[facility] LABCLIA [id number] [place] [address] [place] HDL CHOLESTEROL, NF 44 mg/dL Normal >39 [facility] Comment on above: Order Comment: Speci men Type: BLOOD SPECIMENOrdering Facility: [facility] Address: [address] [place], [place] [address] Result Comment: 40-5 9 mg/dL, Acceptable >59 mg/dL, High: Negative risk factor for coronary heart disease <40 mg/dL, Low: Positive risk factor for coronary heart disease Performed By: #### 2 4323-8, LIPNF, 3016-3 ####[facility] LABCLIA [id number] [place] [address] [place] LDL CHOLESTEROL, NF Normal [facility] Comment on above: Order Comment: Speci men Type: BLOOD SPECIMENOrdering Facility: [facility] Address: [address] [place] [address] Result Comment: Unab le to calculate due to increased Triglycerides. A Direct LDL Cholesterol measurement will not be performed. If clinically indicated, a fasting Basic Lipid Panel (LIPB) may be ordered. Performed By: #### 2 4323-8, LIPNF, 3015-3 ####[facility] LABCLIA [id number] [place] [address] [place] LDL/HDL RATIO, NF Normal [facility] Comment on above: Order Comment: Speci men Type: BLOOD SPECIMENOrdering Facility: [facility] Address: [address] [place] [address] Result Comment: Unab le to calculate due to elevated Triglycerides. Reference: 1. National Cholesterol Education Program ATP III Guideline At-A-Glance Quick Desk Reference: National Heart, Lung, and Blood [place]. National Institutes of Health. 2001: NIH Publication No. 01-3305. 2. An International Atherosclerosis Society position paper: global recommendations for the management of dyslipidemia: executive summary, Atherosclerosis. 2014: 232(2):410-413. Performed By: #### 2 4323-8, LIPNF, 3015-3 ####[facility] LABCLIA [id number] [place] [address] [place] NON HDL CHOL, NF 183 mg/dL High <130 [facility] Comment on above: Order Comment: Speci men Type: BLOOD SPECIMENOrdering Facility: [facility] Address: [address] [place] [address] Result Comment: <130 mg/dL, Optimal 130-159 mg/dL, Near optimal/above optimal 160-189 mg/dL, Borderline high 190-219 mg/dL, High >219 mg/dL, Very high Secondary prevention optimal non HDL Cholesterol levels are recommended to be <100 mg/dL Performed By: #### 2 4323-8, LIPNF, 3016-3 ####[facility] LABCLIA [id number] [place] [address] [place] T CHOL/HDL RATIO NF 5.16 mg/dL High <5.10 [facility] Comment on above: Order Comment: Speci men Type: BLOOD SPECIMENOrdering Facility: [facility] Address: [address] [place] [address] Performed By: #### 2 4323-8, LIPNF, 6-3 ####[facility] LABCLIA [id number] [place] [address] [place] TRIGLYCERIDES, NF 633 mg/dL High <150 [facility] Comment on above: Order Comment: Speci men Type: BLOOD SPECIMENOrdering Facility: [facility] Address: [address] [place] [address] Result Comment: <150 mg/dL, Normal 150-199 mg/dL, Borderline high 200-499 mg/dL, High >499 mg/dL, Very high Performed By: #### 2 4323-8, LIPNF, 6-3 ####[facility] LABCLIA [id number] [place] [address] [place] VLDL CHOLESTEROL, NF Normal [facility] Comment on above: Order Comment: Speci men Type: BLOOD SPECIMENOrdering Facility: [facility] Address: [address] [place] [address] Result Comment: Unab le to calculate due to elevated Triglycerides. Performed By: #### 2 4323-8, LIPNF, 6-3 ####[facility] LABCLIA [id number] [place] [id number] [place] TSH SerPl-aCncon 04-09-2024 TSH Qn 1.370 m[IU]/L Normal 0.270-4.200 [facility] Comment on above: Order Comment: Speci men Type: BLOOD SPECIMENOrdering Facility: [facility] Address: [address] [place] [address] Performed By: #### 2 4323-8, LIPNF, 3016-3 ####[facility] LABCLIA [id number] [place] [id number] [place] VITAMIN B1 (THIAMINE), WHOLE BLOODon 04-09-2024 Thiamine (Bld) [Moles/Vol] 179.7 nmol/L Normal 84.3-213.3 [facility] Comment on above: Order Comment: Speci men Type: BLOOD SPECIMENOrdering Facility: [facility] Address: [address] [place] [address] Result Comment: This assay measures the concentration of thiamine diphosphate (TDP), the primary active form of vitamin B1. Approximately 90 percent of vitamin B1 present in whole blood is TDP. Thiamine and thiamine monophosphate, which comprise the remaining 10 percent, are not measured. This test was developed and its performance characteristics determined by [facility] [place] ([facility]). It has not been cleared or approved by the FDA. [facility] is regulated under CLIA as qualified to perform high-complexity testing. This test is used for clinical purposes. It should not be regarded as investigational or for research. Performed By: #### B 1WB ####[facility] LABCLIA [id number] [place] [id number] [place] Gastroenterology Visit Repor ton 03-07-2024 Gastroenterology Visit Report [facility] Gastroenterology [address] [place] [address] OFFICE VISIT Date of Service: 03/07/24 MR#: [id number] Acct: [id number] Name: AYDENJERMAN DEMOND [facility] Rep #: [id number] : 1970 Provider: Dr. Tera alvarez MD Age/Sex: 53/M Location[place] [facility] [place] Status: Signed Intake Vital Signs 02/04/24 08:00 [...] wheezing Jared/Ly (more content not included)... Normal [facility] .Auto Diffon 01-07-2024 Basophil, Absolute 0.1 10 3/mcL Normal 0.0-0.2 [facility] ([place]) Comment on above: Performed By: #### A ELISA PADRON, ANEU, GFR, BMP, CBC, MG #### [address] [address] Basophils/100 WBC (Bld) 1.2 % Normal 0.0-2.5 [facility] ([place]) Comment on above: Performed By: #### A ELISA PADRON, VY, GFR, BMP, CBC, MG #### [address] [address] Eosinophil, Absolute 0.2 10 3/mcL Normal 0.0-0.4 [facility] ([place]) Comment on above: Performed By: #### A ELISA PADRON, ANEU, GFR, BMP, CBC, MG #### [address] [address] Eosinophils/100 WBC (Bld) 3.4 % Normal 0.0-7.0 [facility] ([place]) Comment on above: Performed By: #### A ELISA PADRON, ANEU, GFR, BMP, CBC, MG #### [address] [address] Lymphocyte, Absolute 1.7 10 3/mcL Normal 0.8-3.9 [facility] ([place]) Comment on above: Performed By: #### A ELISA PADRON, ANEU, GFR, BMP, CBC, MG #### [address] [address] Lymphocytes/100 WBC (Bld) 32.9 % Normal 10.0-50.0 [facility] ([place]) Comment on above: Performed By: #### A DIFF, MDW, ANEU, GFR, BMP, CBC, MG #### [address] [address] Monocyte, Absolute 0.4 10 3/mcL Normal 0.2-1.0 [facility] ([place]) Comment on above: Performed By: #### A DIFF, MDW, ANEU, GFR, BMP, CBC, MG #### [address] [address] Monocytes/100 WBC (Bld) 7.7 % Normal 1.7-13.0 [facility] ([place]) Comment on above: Performed By: #### A DIFF, MDW, ANEU, GFR, BMP, CBC, MG #### [address] [address] Neutrophils/100 WBC (Bld) 54.8 % Normal 37.0-80.0 [facility] ([place]) Comment on above: Performed By: #### A DIFF, MDW, ANEU, GFR, BMP, CBC, MG #### [address] [address] .GFRon 01-07-2024 GFR 194 ml/min/1.73sqm Normal [facility] ([place]) Comment on above: Result Comment: GFR Population [...] mL/min/1.73 square meters Performed By: #### A DIFF, MDW, ANEU, GFR, BMP, CBC, MG #### [address] [address] GFR Non- 160 ml/min/1.73sqm Normal [facility] ([place]) Comment on above: Result Comment: GFR Population [...] PADRON, ANEU, GFR, BMP, CBC, MG #### [place] [id number] .MDWon 01-07-2024 Monocyte Distribution Width 17.86 Normal 0.00-20.00 [facility] ([place]) Comment on above: Result Comment: For ED adult patients suspected of sepsis, MDW<=20.0 does not rule out sepsis or risk of sepsis Performed By: #### A ELISA PADRON, ANEU, GFR, BMP, CBC, MG ####[place] [address] .NEUABSon 01-07-2024 Neutrophil, Absolute 2.8 10 3/mcL Low 2.9-6.2 [facility] ([place]) Comment on above: Performed By: #### A ELISA PADRON, ANEU, GFR, BMP, CBC, MG #### [address] [address] Jesus 01-07-2024 Ethanol Level 127 mg/dL High 0-3 [facility] ([place]) Comment on above: Performed By: #### A LC #### [address] [address] BMPon 01-07-2024 BUN/Creatinine Ratio 15 ratio Normal 7-27 [facility] ([place]) Comment on above: Performed By: #### A ELISA PADRON, ANEU, GFR, BMP, CBC, MG #### [address] [address] Calcium [Mass/Vol] 7.9 mg/dL Low 8.4-10.2 [facility] ([place]) Comment on above: Performed By: #### A ELISA PADRON, ANEU, GFR, BMP, CBC, MG #### [address] [address] Chloride [Moles/Vol] 97 mmol/L Low 98-107 [facility] ([place]) Comment on above: Performed By: #### A ELISA PADRON, ANEU, GFR, BMP, CBC, MG #### [place] [id number] CO2 [Moles/Vol] 22 mmol/L Normal 22-29 [facility] ([place]) Comment on above: Performed By: #### A ELISA PADRON, ANEU, GFR, BMP, CBC, MG #### [address] [address] Creatinine [Mass/Vol] 0.54 mg/dL Low 0.70-1.30 [facility] ([place]) Comment on above: Performed By: #### A ELISA PADRON, ANEU, GFR, BMP, CBC, MG #### [address] [address] Electrolyte Balance 15.0 mEq/L Normal 4.0-15.0 [facility] ([place]) Comment on above: Performed By: #### A ELISA PADRON, ANEU, GFR, BMP, CBC, MG #### [address] [address] Glucose [Mass/Vol] 118 mg/dL High 70-105 [facility] ([place]) Comment on above: Performed By: #### A ELISA PADRON, ANEU, GFR, BMP, CBC, MG #### [address] [address] Potassium [Moles/Vol] 4.0 mmol/L Normal 3.5-5.1 [facility] ([place]) Comment on above: Performed By: #### A DIFFMDW, ANEU, GFR, BMP, CBC, MG #### [address] [address] Sodium [Moles/Vol] 134 mmol/L Low 136-145 [facility] ([place]) Comment on above: Performed By: #### A DIFF, MDW, ANEU, GFR, BMP, CBC, MG #### [place] [id number] Urea nitrogen [Mass/Vol] 8 mg/dL Normal 7-18 [facility] ([place]) Comment on above: Performed By: #### A DIFFMDW, ANEU, GFR, BMP, CBC, MG #### [address] [address] CBCon 01-07-2024 Erythrocyte distribution width (RBC) [Ratio] 14.1 % Normal 11.5-14.5 [facility] ([place]) Comment on above: Performed By: #### A DIFFMDW, ANEU, GFR, BMP, CBC, MG #### [address] [address] Hematocrit (Bld) [Volume fraction] 45.3 % Normal 42.0-52.0 [facility] ([place]) Comment on above: Performed By: #### A DIFF MDW, ANEU, GFR, BMP, CBC, MG #### [address] [address] Hgb 16.4 G/dL Normal 14.0-18.0 [facility] ([place]) Comment on above: Performed By: #### A DIFF MDW, ANEU, GFR, BMP, CBC, MG #### [address] [address] MCH (RBC) [Entitic mass] 35.0 pg High 27.0-31.2 [facility] ([place]) Comment on above: Performed By: #### A DIFF, MDW, ANEU, GFR, BMP, CBC, MG #### [place] [id number] MCHC 36.2 G/dL High 31.8-35.4 [facility] ([place]) Comment on above: Performed By: #### A ELISA PADRON, ANEU, GFR, BMP, CBC, MG #### [address] [address] MCV (RBC) [Entitic vol] 96.7 fL High 80.0-94.0 [facility] ([place]) Comment on above: Performed By: #### A ELISA PADRON, ANEU, GFR, BMP, CBC, MG #### [address] [address] Platelet 155 10 3/mcL Normal 130-400 [facility] ([place]) Comment on above: Performed By: #### A ELISA PADRON, ANEU, GFR, BMP, CBC, MG #### [address] [address] Platelet mean volume (Bld) [Entitic vol] 7.7 fL Normal 7.4-10.4 [facility] ([place]) Comment on above: Performed By: #### A ELISA PADRON, ANEU, GFR, BMP, CBC, MG #### [address] [address] RBC 4.69 10 6/mcL Normal 4.04-6.13 [facility] ([place]) Comment on above: Performed By: #### A ELISA PADRON, ANEU, GFR, BMP, CBC, MG #### [address] [address] WBC 5.1 10 3/mcL Normal 4.6-10.8 [facility] ([place]) Comment on above: Performed By: #### A ELISA PADRON, ANEU, GFR, BMP, CBC, MG #### [address] [address] [address] HEAD OR BRAIN W/O CONTRAS Ton [...] Date: 01/07/2024 5:42:15 PM Ordering Provider: JOHN LUJAN Normal [facility]) [place] 01-07-2024 FLU A PCR Negative Normal Negative [facility]) Comment on above: Performed By: #### C VFLURV #### [address] [address] FLU B PCR Negative Normal Negative [facility] Comment on above: Performed By: #### C VFLURV #### [address] [address] RSV PCR Negative Normal Negative [facility] Comment on above: Performed By: #### C VFLURV #### [place] [address] SARS-CoV-2 (COVID-19) RNA MARCUS+probe Ql (Unsp spec) Negative Normal Negative [facility]) Comment on above: Result Comment: Resu lts [...] inaccurate positive results. Performed By: #### C [facility] EDMONDS[facility] #### Rosalind [address] [address] LABORATORYOrdered By: SYSTEM SYSTEM on 01-07-2024 Ethanol [...] 01-07-2024 Magnesium [Mass/Vol] 1.6 mg/dL Low 1.8-2.4 [facility] ([place]) Comment on above: Performed By: #### A DIFF, MDW, ANEU, GFR, BMP, CBC, MG #### [place] [address] XR CHEST 1 VIEWon 01-07-2024 XR CHEST [...] 01/07/2024 5:42:48 PM Ordering Provider: JOHN Feldman [facility] ([place]) Clostridioides difficile nuc leic acid assay by PCROrdered By: Vasu Blackwell on 09-25-2023 C. difficile DNA MARCUS+probe Ql (Unsp spec) [facility] C. difficile DNA MARCUS+probe Ql (Unsp spec) [facility] No Panel InformationOrdered By: Vasu Blackwell on 09-25-2023 Stool Calprotectin 16 ug/g 0-120 [facility] Comment on above: Concentration Interp retation Follow-Up< 5 - 50 ug/g Normal None>50 -120 ug/g Borderline Re-evaluate in 4-6 weeks >120 ug/g Abnormal Repeat as clinically indicatedPerformed at: [facility] [id number] Director: Jess Sargent MD, Phone: [phone] Stool enteric pathogen panel by probe and target amplification methodOrdered By: Vasu Blackwell on 09-25-2023 Gastrointestinal pathogens panel MARCUS+probe (Stl) [facility] Gastrointestinal pathogens panel MARCUS+probe (Stl) [facility] Stool lactoferrin detection by immunoassayOrdered By: Vasu Blackwell on 09-25-2023 Lactoferrin IA Ql (Stl) [facility] Lactoferrin IA Ql (Stl) [facility] Absolute lymphocyte countOrd ered By: Vasu Blackwell on 09-24-2023 Lymphocytes Auto (Unsp spec) [#/Vol] 1.46 10*3/uL 0.83-4.51 [facility] Automated lymphocyte count a s percentage of total leukocytesOrdered By: Vasu Blackwell on 09-24-2023 Lymphocytes/100 WBC Auto (Unsp spec) 27.3 % 19-41 [facility] Basophil percentageOrdered B y: Errol Moore on 09-24-2023 Ammonia (P) [Moles/Vol] 165.0 umol/L 11-32 [facility] Basophil percentageOrdered B y: Vasu Blackwell on 09-24-2023 Basophils/100 WBC (Bld) 0.6 % 0-1 [facility] Bilirubin [Mass/Vol] 0.20 mg/dL 0.20-1.00 [facility] Comment on above: For patients on eltr ombopag therapy, use of Dimension [place] TBIL is not recommended. Chloride [Moles/Vol] 103 mmol/L 98-107 [facility] Eosinophils/100 WBC (Bld) 3.9 % 0-5 [facility] Glucose [Mass/Vol] 105 mg/dL 74-106 [facility] Comment on above: Fasting Glucose resu lt from 100 to 125 mg/dL suggests IMPAIRED HOMEOSTASIS per A.D.A. criteria. Hemoglobin (Bld) [Mass/Vol] 15.0 g/dL 13.0-16.5 [facility] Monocytes/100 WBC (Bld) 8.0 % 0-10 [facility] Neutrophils (Bld) [#/Vol] 3.2 10*3/uL 2.0-7.7 [facility] Neutrophils/100 WBC (Bld) 59.8 % 47-70 [facility] Potassium [Moles/Vol] 3.7 mmol/L 3.5-5.1 [facility] Protein [Mass/Vol] 7.0 g/dL 6.4-8.2 [facility] Sodium [Moles/Vol] 133 mmol/L 136-145 [facility] WBC (Bld) [#/Vol] 5.4 10*3/uL 4.4-11.0 [facility] Blood manual differential co mment interpretation (narrative result)Ordered By: Vasu Blackwell on 09-24-2023 Manual differential comment Jr (Bld) [Interp] See comment [facility] Comment on above: 1+ ANISOCYTOSIS Determination of erythrocyte mean corpuscular volume (MCV)Ordered By: Vasu Blackwell on 09-24-2023 MCV (RBC) [Entitic vol] 109.1 fL 80-94 [facility] Erythrocyte distribution wid th ratioOrdered By: Vasu Blackwell on 09-24-2023 Erythrocyte distribution width (RBC) [Ratio] 16.6 % 11.6-14.6 [facility] Erythrocyte distribution wid th standard deviationOrdered By: Vasu Blackwell on 09-24-2023 Erythrocyte distribution width (RBC) [Entitic vol] 67.6 fL 35.1-43.9 [facility] Hematocrit Auto (Bld) [Volum e fraction]Ordered By: Vasu Blackwell on 09-24-2023 Hematocrit (Bld) [Volume fraction] 44.3 % 40-54 [facility] Immature granulocytes/100 WB C Auto (Bld)Ordered By: Vasu Blackwell on 09-24-2023 Immature granulocytes/100 WBC (Bld) 0.400 % 0.0-0.9 [facility] Comment on above: IG% - Immature Granu locytes (promyelocytes, myelocytes and metamyelocytes) > 1% indicates that a LEFT SHIFT is Present. Laboratory - Chemistry and C hemistry - challengeOrdered By: Vasu Blackwell on 09-24-2023 Amylase [Catalytic activity/Vol] 3004 U/L 15-85 [facility] Albumin/Globulin [Mass ratio] 0.9 {ratio} 0.9-2.4 [facility] ALP [Catalytic activity/Vol] 286 U/L 45-117 [facility] ALT [Catalytic activity/Vol] 87 U/L 16-61 [facility] CO2 [Moles/Vol] 25.0 mmol/L 21.0-32.0 [facility] Globulin (S) [Mass/Vol] 3.7 g/dL 2.2-4.2 [facility] Urea nitrogen/Creatinine [Mass ratio] 10.5 mg/mg 10-20 [facility] Laboratory - Chemistry and C hemistry - challengeOrdered By: Errol Moore on 09-24-2023 Cobalamin (Vitamin B12) [Mass/Vol] 422 pg/mL 211-911 [facility] Magnesium [Mass/Vol] 2.2 mg/dL 1.6-2.6 [facility] Laboratory - Hematology and Cell countsOrdered By: Vasu Blackwell on 09-24-2023 MCH (RBC) [Entitic mass] 36.9 pg 27.0-32.0 [facility] MCHC (RBC) [Mass/Vol] 33.9 g/dL 32-36 [facility] Nucleated RBC/100 WBC (Bld) [Ratio] 0 % 0-5 [facility] Platelets (Bld) [#/Vol] 317 10*3/uL 150-450 [facility] No Panel InformationOrdered By: Errol Moore on 09-24-2023 Folate 2.30 ng/mL 3.1-55.4 [facility] Comment on above: Slight Hemolysis, Re sult may be falsely increased. Levetiracetam (Keppra) Level 18.2 ug/mL 10.0-40.0 [facility] Comment on above: Performed at: [address] [id number] Director: Jess Sargent MD, Phone: [phone] Miscellaneous Test See comment [facility] Comment on above: TEST RESULTS LIMITSZ onisamide(Zonegran), Serum Zonisamide 5.4 Low ug/mL 10.0-40.0 Detection Limit = 2.0 TESTING PERFORMED AT [facility]. ORIGINAL REPORT ON FILE IN LAB CONTAINS ADDITIONAL TEST SITE INFORMATION. Valproic Acid (Depakene) Level 47 ug/mL 50-100 [facility] No Panel InformationOrdered By: Vasu Blackwell on 09-24-2023 Estimated GFR (MDRD) Amer 139 mL/min >60 [facility] Comment on above: GFR Calc Estimated GFR (MDRD) Non-Af Amer 114 mL/min >60 [facility] Comment on above: Non- GFR Calc Platelet mean volume Jhonatan-Ec ker (Bld) [Entitic vol]Ordered By: Vasu Blackwell on 09-24-2023 Platelet mean volume (Bld) [Entitic vol] 9.3 fL 6.2-12.0 [facility] RBC Auto (Bld) [#/Vol]Ordere d By: Vasu Blackwell on 09-24-2023 RBC (Bld) [#/Vol] 4.06 10*6/uL 4.6-6.2 [facility] Serum or plasma calcium duane urement (mass/volume)Ordered By: Vasu Blackwell on 09-24-2023 Calcium [Mass/Vol] 8.5 mg/dL 8.5-10.1 [facility] Serum or plasma creatinine m easurement (mass/volume)Ordered By: Vasu Blackwell on 09-24-2023 Creatinine [Mass/Vol] 0.76 mg/dL 0.70-1.30 [facility] Comment on above: The validity of the calculated GFR & GFRAA in patients over 70 years has not been determined. Clinical correlation is essential. Serum or plasma thiamine aspen surement (mass/volume)Ordered By: Errol Moore on 09-24-2023 Thiamine [Mass/Vol] 115.9 nmol/L 66.5-200.0 [facility] Serum or plasma thyroid stim ulating hormone (TSH) measurement (units/volume)Ordered By: Vasu Blackwell on 09-24-2023 TSH Qn 2.65 uIU/mL 0.358-3.74 [facility] Serum or plasma urea nitroge n measurement (mass/volume)Ordered By: Vasu Blackwell on 09-24-2023 Urea nitrogen [Mass/Vol] 8 mg/dL 7-18 [facility] Thin prep Papanicolaou smear with manual screeningOrdered By: Vasu Blackwell on 09-24-2023 Thin prep Papanicolaou smear with manual screening 3.3 g/dL 3.2-5.0 [facility] Thin prep Papanicolaou smear with manual screening 57 U/L 15-37 [facility] Thin prep Papanicolaou smear with manual screening 5 5-15 [facility] Thin prep Papanicolaou smear with manual screening 0.85 ng/dL 0.76-1.46 [facility] Basophil percentageOrdered B y: Errol Moore on 09-13-2023 Basophil percentage < 1.0 mg/dL 0.70-1.30 [facility] No Panel InformationOrdered By: Errol Moore on 09-13-2023 Bedside Estimated GFR (eGFR) > 60.0000 mL/min >60 [facility] Absolute lymphocyte countOrd ered By: Wolfgang Tyler on 06-16-2023 Lymphocytes Auto (Unsp spec) [#/Vol] 1.08 10*3/uL 0.83-4.51 [facility] Basophil percentageOrdered B y: Wolfgang Tyler on 06-16-2023 Basophil percentage 0 SEEN /hpf 0-5 [facility] Basophils/100 WBC (Bld) 0.6 % 0-1 [facility] Bilirubin [Mass/Vol] 0.50 mg/dL 0.20-1.00 [facility] Comment on above: For patients on eltr ombopag therapy, use of Dimension [place] TBIL is not recommended. Chloride [Moles/Vol] 98 mmol/L 98-107 [facility] Eosinophils/100 WBC (Bld) 1.5 % 0-5 [facility] Glucose [Mass/Vol] 116 mg/dL 74-106 [facility] Comment on above: Fasting Glucose resu lt from 100 to 125 mg/dL suggests IMPAIRED HOMEOSTASIS per A.D.A. criteria. Neutrophils (Bld) [#/Vol] 3.7 10*3/uL 2.0-7.7 [facility] Neutrophils/100 WBC (Bld) 68.8 % 47-70 [facility] Potassium [Moles/Vol] 3.8 mmol/L 3.5-5.1 [facility] Protein [Mass/Vol] 6.5 g/dL 6.4-8.2 [facility] Sodium [Moles/Vol] 137 mmol/L 136-145 [facility] WBC (Bld) [#/Vol] 5.4 10*3/uL 4.4-11.0 [facility] Bilirubin Test strip Ql (U)O rdered By: Wolfgang Tyler on 06-16-2023 Bilirubin Ql (U) Negative Negative [facility] Blood erythrocytes count (nu mber/volume)Ordered By: Wolfgang Tyler on 06-16-2023 RBC (Bld) [#/Vol] 3.93 10*6/uL 4.6-6.2 [facility] Blood hemoglobin measurement (mass/volume)Ordered By: Wolfgang Tyler on 06-16-2023 Hemoglobin (Bld) [Mass/Vol] 14.6 g/dL 13.0-16.5 [facility] Blood lymphocytes/100 leukoc ytesOrdered By: Wolfgang Tyler on 06-16-2023 Lymphocytes/100 WBC (Bld) 20.1 % 19-41 [facility] Blood manual differential co mment interpretation (narrative result)Ordered By: Wolfgang Tyler on 06-16-2023 Manual differential comment Jr (Bld) [Interp] SCANNED [facility] Blood monocytes/100 leukocyt esOrdered By: Wolfgang Tyler on 06-16-2023 Monocytes/100 WBC (Bld) 8.4 % 0-10 [facility] Blood platelet mean volumeOr dered By: Wolfgang Tyler on 06-16-2023 Platelet mean volume (Bld) [Entitic vol] 9.1 fL 6.2-12.0 [facility] Determination of erythrocyte mean corpuscular volume (MCV)Ordered By: Wolfgang Tyler on 06-16-2023 MCV (RBC) [Entitic vol] 106.1 fL 80-94 [facility] Direct bilirubinOrdered By: Wolfgang Tyler on 06-16-2023 Bilirubin.direct [Mass/Vol] 0.18 mg/dL 0.00-0.30 [facility] Hematocrit Auto (Bld) [Volum e fraction]Ordered By: Wolfgang Tyler on 06-16-2023 Hematocrit (Bld) [Volume fraction] 41.7 % 40-54 [facility] INR in Blood by Coagulation assayOrdered By: Wolfgang Tyler on 06-16-2023 INR Coag (Bld) [Relative time] 1.1 {INR} [facility] Ketones Test strip Ql (U)Ord ered By: Wolfgang Tyler on 06-16-2023 Ketones Ql (U) 50 mg/dl Negative [facility] Laboratory - Chemistry and C hemistry - challengeOrdered By: Wolfgang Tyler on 06-16-2023 ALP [Catalytic activity/Vol] 84 U/L 45-117 [facility] ALT [Catalytic activity/Vol] 54 U/L 16-61 [facility] CO2 [Moles/Vol] 23.0 mmol/L 21.0-32.0 [facility] Globulin (S) [Mass/Vol] 3.3 g/dL 2.2-4.2 [facility] Magnesium [Mass/Vol] 1.9 mg/dL 1.6-2.6 [facility] Urea nitrogen/Creatinine [Mass ratio] 9.4 mg/mg 10-20 [facility] Laboratory - CoagulationOrde red By: Wolfgang Tyler on 06-16-2023 PT Coag (PPP) [Time] 14.6 s 11.7-14.9 [facility] Laboratory - Drug toxicology Ordered By: Wolfgang Tyler on 06-16-2023 Amphetamines Ql (U) Negative <1000 ng/mL [facility] Benzodiazepines Ql (U) Negative < 200 ng/mL [facility] Cannabinoids Screen Ql (U) Positive < 50 ng/mL [facility] Cocaine Ql (U) Negative < 300 ng/mL [facility] Opiates Ql (U) Negative < 300 ng/mL [facility] Laboratory - Hematology and Cell countsOrdered By: Wolfgang Tyler on 06-16-2023 Anisocytosis Ql (Bld) 2+ [facility] Erythrocyte distribution width (RBC) [Entitic vol] 65.4 fL 35.1-43.9 [facility] Erythrocyte distribution width (RBC) [Ratio] 16.6 % 11.6-14.6 [facility] Immature granulocytes/100 WBC (Bld) 0.600 % 0.0-0.9 [facility] Comment on above: IG% - Immature Granu locytes (promyelocytes, myelocytes and metamyelocytes) > 1% indicates that a LEFT SHIFT is Present. MCH (RBC) [Entitic mass] 37.2 pg 27.0-32.0 [facility] Nucleated RBC/100 WBC (Bld) [Ratio] 0 % 0-5 [facility] MCHC Auto (RBC) [Mass/Vol]Or dered By: Wolfgang Tyler on 06-16-2023 MCHC (RBC) [Mass/Vol] 35.0 g/dL 32-36 [facility] Macrocytes detectionOrdered By: Wolfgang Tyler on 06-16-2023 Macrocytes Ql (Bld) 1+ [facility] Mucus LM Ql (Urine sed)Order ed By: Wolfgang Tyler on 06-16-2023 Mucus Ql (Urine sed) 0 SEEN /hpf [facility] Nitrite Test strip Ql (U)Ord ered By: Wolfgang Tyler on 06-16-2023 Nitrite Ql (U) Negative Negative [facility] No Panel InformationOrdered By: Wolfgang Tyler on 06-16-2023 MDMA (Ecstasy) Screen Negative < 500 ng/mL [facility] Urine Barbiturates Screen Negative < 200 ng/mL [facility] Urine Drug Screen Comment [facility] Comment on above: CONFIRMATORY TESTING FOR ALL [...] Methadone Screen Negative < 300 ng/mL [facility] Estimated Creatinine Clearance Calc 139.41 ml/min [facility] Estimated GFR (MDRD) Amer 170 mL/min >60 [facility] Comment on above: GFR Calc Estimated GFR (MDRD) Non-Af Amer 141 mL/min >60 [facility] Comment on above: Non- GFR Calc Ethyl Alcohol Level 44.0 mg/dL [facility] Comment on above: The serum:whole bloo d ethanol ratio is approximately 1.14and varies slightly with hematocrit. Medical Alcohol reference interval and critical value innon-tolerant individuals; 50 - 100 Impairment 100 Intoxication 100 - 250 Severe Poisoning 250 - 400 Deep/possible fatal coma Valproic Acid (Depakene) Level 52 ug/mL 50-100 [facility] Platelets bldOrdered By: Sahil Tyler on 06-16-2023 Platelets (Bld) [#/Vol] 237 10*3/uL 150-450 [facility] Protein Test strip Ql (U)Ord ered By: Wolfgang Tyler on 06-16-2023 Protein Ql (U) 15 mg/dl Negative [facility] Serum or plasma albumin duane urement (mass/volume)Ordered By: Wolfgang Tyler on 06-16-2023 Albumin [Mass/Vol] 3.2 g/dL 3.2-5.0 [facility] Serum or plasma calcium duane urement (mass/volume)Ordered By: Wolfgang Tyler on 06-16-2023 Calcium [Mass/Vol] 8.3 mg/dL 8.5-10.1 [facility] Serum or plasma creatinine m easurement (mass/volume)Ordered By: Wolfgang Tyler on 06-16-2023 Creatinine [Mass/Vol] 0.64 mg/dL 0.70-1.30 [facility] Comment on above: The validity of the calculated GFR & GFRAA in patients over 70 years has not been determined. Clinical correlation is essential. Serum or plasma urea nitroge n measurement (mass/volume)Ordered By: Wolfgang Tyler on 06-16-2023 Urea nitrogen [Mass/Vol] 6 mg/dL 7-18 [facility] Squamous epithelial cells de tection in urine sediment by light microscopyOrdered By: Wolfgang Tyler on 06-16-2023 Epithelial cells.squamous LM Ql (Urine sed) 0 SEEN /hpf 0-5 [facility] Thin prep Papanicolaou smear with manual screeningOrdered By: Wolfgang Tyler on 06-16-2023 Thin prep Papanicolaou smear with manual screening 1+ [facility] Thin prep Papanicolaou smear with manual screening 131 U/L 15-37 [facility] Thin prep Papanicolaou smear with manual screening 16 5-15 [facility] Urine blood detectionOrdered By: Wolfgang Tyler on 06-16-2023 RBC Ql (U) 10 /ul Negative [facility] RBC Ql (U) 0 SEEN /hpf 0-5 [facility] Urine clarityOrdered By: Sahil Tyler on 06-16-2023 Clarity (U) Clear Clear [facility] Urine color determinationOrd ered By: Wolfgang Tyler on 06-16-2023 Color (U) Yellow Yellow [facility] Urine glucose detectionOrder ed By: Wolfgang Tyler on 06-16-2023 Glucose Ql (U) Normal mg/dl Normal [facility] Urine leukocyte esterase det ection by dipstickOrdered By: Wolfgang Tyler on 06-16-2023 Leukocyte esterase Test strip Ql (U) Negative Negative [facility] Urine pHOrdered By: Wolfgang taylor on 06-16-2023 pH (U) 6.5 [pH] 5.0 - 8.0 [facility] Urine phencyclidine (PCP) de tectionOrdered By: Wolfgang Tyler on 06-16-2023 Phencyclidine Ql (U) Negative < 25 ng/mL [facility] Urine sediment bacteria coun t by microscopy (number/high power field)Ordered By: Wolfgang Tyler on 06-16-2023 Bacteria LM.HPF (Urine sed) [#/Area] 0 /[HPF] None Seen [facility] Urine specific gravity measu rementOrdered By: Wolfgang Tyler on 06-16-2023 Specific gravity (U) [Rel density] 1.015 1.002-1.030 [facility] Urobilinogen Auto test strip Ql (U)Ordered By: Wolfgang Tyler on 06-16-2023 Urobilinogen Ql (U) Normal mg/dl Normal [facility] Absolute lymphocyte countOrd ered By: Vasu Blackwell on 05-28-2023 Lymphocytes Auto (Unsp spec) [#/Vol] 1.56 10*3/uL 0.83-4.51 [facility] Basophil percentageOrdered B y: Vasu Blackwell on 05-28-2023 Basophils/100 WBC (Bld) 0.7 % 0-1 [facility] Bilirubin [Mass/Vol] 0.60 mg/dL 0.20-1.00 [facility] Comment on above: For patients on eltr ombopag therapy, use of Dimension [place] TBIL is not recommended. Chloride [Moles/Vol] 101 mmol/L 98-107 [facility] Eosinophils/100 WBC (Bld) 1.6 % 0-5 [facility] Glucose [Mass/Vol] 156 mg/dL 74-106 [facility] Comment on above: Fasting Glucose resu lt greater than or equal to 126 mg/dL suggests DIABETES MELLITUS per A.D.A. criteria. Neutrophils (Bld) [#/Vol] 6.3 10*3/uL 2.0-7.7 [facility] Neutrophils/100 WBC (Bld) 72.4 % 47-70 [facility] Potassium [Moles/Vol] 3.4 mmol/L 3.5-5.1 [facility] Protein [Mass/Vol] 7.6 g/dL 6.4-8.2 [facility] Sodium [Moles/Vol] 135 mmol/L 136-145 [facility] WBC (Bld) [#/Vol] 8.7 10*3/uL 4.4-11.0 [facility] Blood erythrocytes count (nu mber/volume)Ordered By: Vasu Blackwell on 05-28-2023 RBC (Bld) [#/Vol] 4.00 10*6/uL 4.6-6.2 [facility] Blood hemoglobin measurement (mass/volume)Ordered By: Vasu Blackwell on 05-28-2023 Hemoglobin (Bld) [Mass/Vol] 15.0 g/dL 13.0-16.5 [facility] Blood lymphocytes/100 leukoc ytesOrdered By: Vasu Blackwell on 05-28-2023 Lymphocytes/100 WBC (Bld) 18.0 % 19-41 [facility] Blood manual differential co mment interpretation (narrative result)Ordered By: Vasu Blackwell on 05-28-2023 Manual differential comment Jr (Bld) [Interp] SCANNED [facility] Blood monocytes/100 leukocyt esOrdered By: Vasu Blackwell on 05-28-2023 Monocytes/100 WBC (Bld) 7.0 % 0-10 [facility] Blood platelet mean volumeOr dered By: Vasu Blackwell on 05-28-2023 Platelet mean volume (Bld) [Entitic vol] 9.5 fL 6.2-12.0 [facility] Determination of erythrocyte mean corpuscular volume (MCV)Ordered By: Vasu Blackwell on 05-28-2023 MCV (RBC) [Entitic vol] 110.5 fL 80-94 [facility] Hematocrit Auto (Bld) [Volum e fraction]Ordered By: Vasu Blackwell on 05-28-2023 Hematocrit (Bld) [Volume fraction] 44.2 % 40-54 [facility] Laboratory - Chemistry and C hemistry - challengeOrdered By: Vasu Blackwell on 05-28-2023 ALP [Catalytic activity/Vol] 73 U/L 45-117 [facility] ALT [Catalytic activity/Vol] 26 U/L 16-61 [facility] CO2 [Moles/Vol] 24.0 mmol/L 21.0-32.0 [facility] Globulin (S) [Mass/Vol] 3.8 g/dL 2.2-4.2 [facility] Urea nitrogen/Creatinine [Mass ratio] 10.5 mg/mg 10-20 [facility] Laboratory - Hematology and Cell countsOrdered By: Vasu Blackwell on 05-28-2023 Anisocytosis Ql (Bld) 1+ [facility] Erythrocyte distribution width (RBC) [Entitic vol] 70.1 fL 35.1-43.9 [facility] Erythrocyte distribution width (RBC) [Ratio] 17.0 % 11.6-14.6 [facility] Immature granulocytes/100 WBC (Bld) 0.300 % 0.0-0.9 [facility] Comment on above: IG% - Immature Granu locytes (promyelocytes, myelocytes and metamyelocytes) > 1% indicates that a LEFT SHIFT is Present. MCH (RBC) [Entitic mass] 37.5 pg 27.0-32.0 [facility] Nucleated RBC/100 WBC (Bld) [Ratio] 0 % 0-5 [facility] MCHC Auto (RBC) [Mass/Vol]Or dered By: Vasu Blackwell on 05-28-2023 MCHC (RBC) [Mass/Vol] 33.9 g/dL 32-36 [facility] No Panel InformationOrdered By: Vasu Blackwell on 05-28-2023 Estimated GFR (MDRD) Amer 120 mL/min >60 [facility] Comment on above: GFR Calc Estimated GFR (MDRD) Non-Af Amer 99 mL/min >60 [facility] Comment on above: Non- GFR Calc Platelets bldOrdered By: Vlad Blackwell on 05-28-2023 Platelets (Bld) [#/Vol] 277 10*3/uL 150-450 [facility] Serum or plasma albumin duane urement (mass/volume)Ordered By: Vasu Blackwell on 05-28-2023 Albumin [Mass/Vol] 3.8 g/dL 3.2-5.0 [facility] Serum or plasma albumin/glob ulin mass ratioOrdered By: Vasu Blackwell on 05-28-2023 Albumin/Globulin [Mass ratio] 1.0 {ratio} 0.9-2.4 [facility] Serum or plasma calcium duane urement (mass/volume)Ordered By: Vasu Blackwell on 05-28-2023 Calcium [Mass/Vol] 8.9 mg/dL 8.5-10.1 [facility] Serum or plasma creatinine m easurement (mass/volume)Ordered By: Vasu Blackwell on 05-28-2023 Creatinine [Mass/Vol] 0.86 mg/dL 0.70-1.30 [facility] Comment on above: The validity of the calculated GFR & GFRAA in patients over 70 years has not been determined. Clinical correlation is essential. Serum or plasma urea nitroge n measurement (mass/volume)Ordered By: Vasu Blackwell on 05-28-2023 Urea nitrogen [Mass/Vol] 9 mg/dL 7-18 [facility] Thin prep Papanicolaou smear with manual screeningOrdered By: Vasu Blackwell on 05-28-2023 Thin prep Papanicolaou smear with manual screening 57 U/L 15-37 [facility] Thin prep Papanicolaou smear with manual screening 10 5-15 [facility] Whole blood hemoglobin A1c/t otal hemoglobin ratio (mass fraction)Ordered By: Vasu Blackwell on 05-28-2023 HbA1c (Bld) [Mass fraction] 5.1 % 3.8-5.6 [facility] Comment on above: Normal < 5.7 % [...] admission. We will also request records from [facility]. We will also get an updated MRI [...] /inpatient admission; Status:Hold For - Scheduling; Requested for:[id number]; Start: levETIRAcetam 750 MG Oral Tablet; TAKE [...] has had extensive work up done at [facility] but we don't have access to any [...] 02/21/2022 3:45:20 PM Vitals Vital Signs Recorded: [id number] 03:14PM Heart R (more content not included)... Normal [facility] Tobacco Screening.on 022 Fall risk assessment a) No falls within the last year [facility] [employer] Work Phone: Tobacco use status [facility] b) No [place] [id number] Work Phone: Absolute lymphocyte counton 12-30-2021 Lymphocytes Auto (Unsp spec) [#/Vol] 3.59 10*3/uL 0.83-4.51 [facility] Work Phone: Basophil percentageon 2021 Basophil percentage 0-5 SEEN /hpf [facility] Work Phone: Basophils/100 WBC (Bld) 0.7 % 0-1 [facility] Work Phone: Chloride [Moles/Vol] 111 mmol/L 98-107 [facility] Work Phone: Eosinophils/100 WBC (Bld) 6.6 % 0-5 [facility] Work Phone: Glucose [Mass/Vol] 118 mg/dL 74-106 [facility] Work Phone: Comment on above: Fasting Glucose resu lt from 100 to 125 mg/dL suggests IMPAIRED HOMEOSTASIS per A.D.A. criteria. Neutrophils (Bld) [#/Vol] 5.3 10*3/uL 2.0-7.7 [facility] Work Phone: Neutrophils/100 WBC (Bld) 50.2 % 47-70 [facility] Work Phone: Potassium [Moles/Vol] 3.6 mmol/L 3.5-5.1 [facility] Work Phone: Sodium [Moles/Vol] 140 mmol/L 136-145 [facility] Work Phone: WBC (Bld) [#/Vol] 10.5 10*3/uL 4.4-11.0 [facility] Work [facility]: Bilirubin Test strip Ql (U)o n 12-30-2021 Bilirubin Ql (U) Negative Negative [facility] Work Phone: Blood erythrocytes count (nu mber/volume)on 12-30-2021 RBC (Bld) [#/Vol] 4.79 10*6/uL 4.6-6.2 [facility] Work Phone: Blood hemoglobin measurement (mass/volume)on 12-30-2021 Hemoglobin (Bld) [Mass/Vol] 14.9 g/dL 13.0-16.5 [facility] Work Phone: Blood lymphocytes/100 leukoc yteson 12-30-2021 Lymphocytes/100 WBC (Bld) 34.3 % 19-41 [facility] Work Phone: Blood monocytes/100 leukocyt eson 12-30-2021 Monocytes/100 WBC (Bld) 7.8 % 0-10 [facility] Work Phone: Blood platelet mean volumeon 12-30-2021 Platelet mean volume (Bld) [Entitic vol] 9.4 fL 6.2-12.0 [facility] Work Phone: Determination of erythrocyte mean corpuscular volume (MCV)on 12-30-2021 MCV (RBC) [Entitic vol] 92.5 fL 80-94 [facility] Work Phone: Hematocrit Auto (Bld) [Volum e fraction]on 12-30-2021 Hematocrit (Bld) [Volume fraction] 44.3 % 40-54 [facility] Work Phone: [phone] Ketones Test strip Ql (U)on 12-30-2021 Ketones Ql (U) 5 mg/dl Negative [facility] Work Phone: [phone] Laboratory - Chemistry and C hemistry - challengeon 12-30-2021 CO2 [Moles/Vol] 23.0 mmol/L 21.0-32.0 [facility] Work Phone: [phone] Urea nitrogen/Creatinine [Mass ratio] 16.2 mg/mg 10-20 [facility] Work Phone: [phone] Laboratory - Hematology and Cell countson 12-30-2021 Erythrocyte distribution width (RBC) [Entitic vol] 48.6 fL 35.1-43.9 [facility] Work Phone: [phone] Erythrocyte distribution width (RBC) [Ratio] 14.1 % 11.6-14.6 [facility] Work Phone: [phone] Immature granulocytes/100 WBC (Bld) 0.400 % 0.0-0.9 [facility] Work Phone: [phone] Comment on above: IG% - Immature Granu locytes (promyelocytes, myelocytes and metamyelocytes) > 1% indicates that a LEFT SHIFT is Present. MCH (RBC) [Entitic mass] 31.1 pg 27.0-32.0 [facility] Work Phone: [phone] Nucleated RBC/100 WBC (Bld) [Ratio] 0 % 0-5 [facility] Work Phone: [phone] MCHC Auto (RBC) [Mass/Vol]on 12-30-2021 MCHC (RBC) [Mass/Vol] 33.6 g/dL 32-36 [facility] Work Phone: [phone] Mucus LM Ql (Urine sed)on Mucus Ql (Urine sed) 0 SEEN /hpf [facility] Work Phone: [phone] Nitrite Test strip Ql (U)on 12-30-2021 Nitrite Ql (U) Negative Negative [facility] Work Phone: No Panel Informationon 12-30 Estimated Creatinine Clearance Calc 114.06 ml/min [facility] Work Phone: Estimated GFR (MDRD) Amer 131 mL/min >60 [facility] Work Phone: Comment on above: GFR Calc Estimated GFR (MDRD) Non-Af Amer 108 mL/min >60 [facility] Work Phone: Comment on above: Non- GFR Calc Platelets bldon 12-30-2021 Platelets (Bld) [#/Vol] 347 10*3/uL 150-450 [facility] Work Phone: Protein Test strip Ql (U)on 12-30-2021 Protein Ql (U) Negative Negative [facility] Work Phone: Serum or plasma calcium duane urement (mass/volume)on 12-30-2021 Calcium [Mass/Vol] 8.8 mg/dL 8.5-10.1 [facility] Work Phone: Serum or plasma creatinine m easurement (mass/volume)on 12-30-2021 Creatinine [Mass/Vol] 0.80 mg/dL 0.70-1.30 [facility] Work Phone: Comment on above: The validity of the calculated GFR & GFRAA in patients over 70 years has not been determined. Clinical correlation is essential. Serum or plasma urea nitroge n measurement (mass/volume)on 12-30-2021 Urea nitrogen [Mass/Vol] 13 mg/dL 7-18 [facility] Work Phone: [phone] Squamous epithelial cells de tection in urine sediment by light microscopyon 12-30-2021 Epithelial cells.squamous LM Ql (Urine sed) 0-5 SEEN /hpf [facility] Work Phone: Thin prep Papanicolaou smear with manual screeningon 12-30-2021 Thin prep Papanicolaou smear with manual screening 6 5-15 [facility] Work Phone: [phone] Urine blood detectionon 12-18 RBC Ql (U) Negative Negative [facility] Work Phone: RBC Ql (U) 0-5 SEEN /hpf [facility] Work Phone: Urine clarityon 12-30-2021 Clarity (U) Clear Clear [facility] Work Phone: Urine color determinationon 12-30-2021 Color (U) Yellow Yellow [facility] Work Phone: Urine glucose detectionon Glucose Ql (U) Normal mg/dl Normal [facility] Work Phone: Urine leukocyte esterase det ection by dipstickon 12-30-2021 Leukocyte esterase Test strip Ql (U) Negative Negative [facility] Work Phone: Urine pHon 12-30-2021 pH (U) 6.0 [pH] [facility] Work Phone: Urine sediment bacteria coun t by microscopy (number/high power field)on 12-30-2021 Bacteria LM.HPF (Urine sed) [#/Area] RARE /hpf None Seen [facility] Work Phone: Urine specific gravity measu rementon 12-30-2021 Specific gravity (U) [Rel density] 1.025 [facility] Work Phone: Urobilinogen Auto test strip Ql (U)on 12-30-2021 Urobilinogen Ql (U) Normal mg/dl Normal [facility] Work Phone: Absolute lymphocyte counton 10-26-2021 Lymphocytes Auto (Unsp spec) [#/Vol] 2.64 10*3/uL 0.83-4.51 [facility] Work Phone: Basophil percentageon 2021 Basophils/100 WBC (Bld) 0.6 % 0-1 [facility] Work Phone: Bilirubin [Mass/Vol] 0.10 mg/dL 0.20-1.00 [facility] Work Phone: Comment on above: For patients on eltr ombopag therapy, use of Dimension [place] TBIL is not recommended. Chloride [Moles/Vol] 109 mmol/L 98-107 [facility] Work Phone: Eosinophils/100 WBC (Bld) 6.2 % 0-5 [facility] Work Phone: Glucose [Mass/Vol] 108 mg/dL 74-106 [facility] Work Phone: Comment on above: Fasting Glucose resu lt from 100 to 125 mg/dL suggests IMPAIRED HOMEOSTASIS per A.D.A. criteria. Neutrophils (Bld) [#/Vol] 7.8 10*3/uL 2.0-7.7 [facility] Work Phone: Neutrophils/100 WBC (Bld) 65.3 % 47-70 [facility] Work Phone: Potassium [Moles/Vol] 3.9 mmol/L 3.5-5.1 [facility] Work Phone: Protein [Mass/Vol] 7.0 g/dL 6.4-8.2 [facility] Work Phone: Sodium [Moles/Vol] 137 mmol/L 136-145 [facility] Work Phone: WBC (Bld) [#/Vol] 12.0 10*3/uL 4.4-11.0 [facility] Work Phone: Blood erythrocytes count (nu mber/volume)on 10-26-2021 RBC (Bld) [#/Vol] 4.89 10*6/uL 4.6-6.2 [facility] Work Phone: Blood hemoglobin measurement (mass/volume)on 10-26-2021 Hemoglobin (Bld) [Mass/Vol] 15.3 g/dL 13.0-16.5 [facility] Work Phone: Blood lymphocytes/100 leukoc yteson 10-26-2021 Lymphocytes/100 WBC (Bld) 22.0 % 19-41 [facility] Work Phone: Blood monocytes/100 leukocyt eson 10-26-2021 Monocytes/100 WBC (Bld) 5.5 % 0-10 [facility] Work Phone: [phone] Blood platelet mean volumeon 10-26-2021 Platelet mean volume (Bld) [Entitic vol] 9.3 fL 6.2-12.0 [facility] Work Phone: [phone] Determination of erythrocyte mean corpuscular volume (MCV)on 10-26-2021 MCV (RBC) [Entitic vol] 93.5 fL 80-94 [facility] Work Phone: [phone] Hematocrit Auto (Bld) [Volum e fraction]on 10-26-2021 Hematocrit (Bld) [Volume fraction] 45.7 % 40-54 [facility] Work Phone: Laboratory - Chemistry and C hemistry - challengeon 10-26-2021 ALP [Catalytic activity/Vol] 54 U/L 45-117 [facility] Work Phone: [phone] ALT [Catalytic activity/Vol] 17 U/L 16-61 [facility] Work Phone: [phone] CO2 [Moles/Vol] 19.0 mmol/L 21.0-32.0 [facility] Work Phone: [phone] Globulin (S) [Mass/Vol] 3.4 g/dL 2.2-4.2 [facility] Work Phone: [phone] Urea nitrogen/Creatinine [Mass ratio] 27.0 mg/mg 10-20 [facility] Work Phone: [phone] Laboratory - Hematology and Cell countson 10-26-2021 Erythrocyte distribution width (RBC) [Entitic vol] 51.6 fL 35.1-43.9 [facility] Work Phone: [phone] Erythrocyte distribution width (RBC) [Ratio] 15.0 % 11.6-14.6 [facility] Work Phone: [phone] Immature granulocytes/100 WBC (Bld) 0.400 % 0.0-0.9 [facility] Work Phone: Comment on above: IG% - Immature Granu locytes (promyelocytes, myelocytes and metamyelocytes) > 1% indicates that a LEFT SHIFT is Present. MCH (RBC) [Entitic mass] 31.3 pg 27.0-32.0 [facility] Work Phone: [phone] Nucleated RBC/100 WBC (Bld) [Ratio] 0 % 0-5 [facility] Work Phone: [phone] MCHC Auto (RBC) [Mass/Vol]on 10-26-2021 MCHC (RBC) [Mass/Vol] 33.5 g/dL 32-36 [facility] Work Phone: [phone] Panel Informationon 10-26 [facility]iscellaneous Test [facility]: [phone] Comment on above: TEST RESULT LIMITSZo nisamide(Zonegran), Serum Zonisamide 10.4 ug/mL 10.0 - 40.0 Detection Limit = 2.0 TESTING PERFORMED AT [facility]. ORIGINAL REPORT ON FILE IN LAB CONTAINS ADDITIONAL TEST SITE INFORMATION. Valproic Acid (Depakene) Level 46 ug/mL 50-100 [facility] Work Phone: [phone] Estimated GFR (MDRD) Amer 152 mL/min >60 [facility] Work Phone: [phone] Comment on above: GFR Calc Estimated GFR (MDRD) Non-Af Amer 126 mL/min >60 [facility] Work Phone: [phone] Comment on above: Non- GFR Calc Platelets bldon 10-26-2021 Platelets (Bld) [#/Vol] 377 10*3/uL 150-450 [facility] Work Phone: [phone] Serum or plasma albumin duane urement (mass/volume)on 10-26-2021 Albumin [Mass/Vol] 3.6 g/dL 3.2-5.0 [facility] Work Phone: Serum or plasma albumin/glob ulin mass ratioon 10-26-2021 Albumin/Globulin [Mass ratio] 1.1 {ratio} 0.9-2.4 [facility] Work Phone: Serum or plasma calcium duane urement (mass/volume)on 10-26-2021 Calcium [Mass/Vol] 8.2 mg/dL 8.5-10.1 [facility] Work Phone: Serum or plasma creatinine m easurement (mass/volume)on 10-26-2021 Creatinine [Mass/Vol] 0.70 mg/dL 0.70-1.30 [facility] Work Phone: Comment on above: The validity of the calculated GFR & GFRAA in patients over 70 years has not been determined. Clinical correlation is essential. Serum or plasma urea nitroge n measurement (mass/volume)on 10-26-2021 Urea nitrogen [Mass/Vol] 19 mg/dL 7-18 [facility] Work Phone: Thin prep Papanicolaou smear with manual screeningon 10-26-2021 Thin prep Papanicolaou smear with manual screening 9 U/L 15-37 [facility] Work Phone: Thin prep Papanicolaou smear with manual screening 9 5-15 [facility] Work Phone: LABORATORYOrdered By: Victorina Christie on [...] Code AO Chemistry S Telephone Encounteron 2020 D[employer] Authentication Interface Message Text Situation: Call from patients friend Sahil. Patient placed on phone. Identification was verified by patient verbalizing his name and date of . Demographic updated. Background: Patient friend states Neurology needs copy of his EEG and medical records. Patient was in observation. Attending Maryann Horvath MD ??? Date of Admission 01/27/2021 Date of Discharge 01/31/21 [Principal Hospital Problem (Final Diagnosis)] Status epilepticus (HCC) ??? Discharge Procedure Orders NEUROLOGY SERVICE REQUEST Assessment: Given number to Medical Records and Mychart dept. Recommendation: See above. Normal [facility] BASIC METABOLIC PANELon 01-18 Anion gap [Moles/Vol] 11 mmol/L Normal 5-13 [facility] Comment on above: Performed By: #### 8 2948 #### NURSING GLUCOSE PROGRAM [address] [place] [address], [address] Calcium [Mass/Vol] 8.6 mg/dL Normal 8.4-10.4 [facility] Comment on above: Performed By: #### 8 2948 #### NURSING GLUCOSE PROGRAM [address] [place] [address], [address] Chloride [Moles/Vol] 105 mmol/L Normal 97-111 [facility] Comment on above: Performed By: #### 8 2948 #### NURSING GLUCOSE PROGRAM [address] [place], [address] CO2 [Moles/Vol] 25 mmol/L Normal 21-30 [facility] Comment on above: Performed By: #### 8 2948 #### NURSING GLUCOSE PROGRAM [address] [place], [address] Creatinine [Mass/Vol] 0.60 mg/dL Low 0.80-1.30 [facility] Comment on above: Performed By: #### 8 2948 #### NURSING GLUCOSE PROGRAM [address] [place], [address] ESTIMATED GFR (CKD-EPI) 118 mL/min/1.73sqm Normal >=60 [facility] Comment on above: Performed By: #### 8 2948 #### NURSING GLUCOSE PROGRAM [address] [place], [address] Glucose [Mass/Vol] 94 mg/dL Normal 68-110 [facility] Comment on above: Performed By: #### 8 2948 #### NURSING GLUCOSE PROGRAM [address] [place], [address] Potassium [Moles/Vol] 3.9 mmol/L Normal 3.3-5.3 [facility] Comment on above: Performed By: #### 8 2948 #### NURSING GLUCOSE PROGRAM [address] [place] [address], [address] Sodium [Moles/Vol] 137 mmol/L Normal 135-148 [facility] Comment on above: Performed By: #### 8 2948 #### NURSING GLUCOSE PROGRAM [address] [place] [address], [address] Urea nitrogen [Mass/Vol] 4 mg/dL Low 8-22 [facility] Comment on above: Performed By: #### 8 2948 #### NURSING GLUCOSE PROGRAM [address] [place] [address], [address] COMPLETE BLOOD COUNTon 01-31 Erythrocyte distribution width (RBC) [Ratio] 14.5 % Normal 11.5-14.5 [facility] Comment on above: Performed By: #### M G, ETOH, CH8, HEPATIC #### [facility] [address] [place] [address], Hematocrit (Bld) [Volume fraction] 39.6 % Low 41.0-53.0 [facility] Comment on above: Performed By: #### M G, ETOH, CH8, HEPATIC #### [facility] [address] [place] [address], Hemoglobin (Bld) [Mass/Vol] 13.1 g/dL Low 13.9-16.3 [facility] Comment on above: Performed By: #### M G, ETOH, CH8, HEPATIC #### [facility] [address] [place] [address], MCH (RBC) [Entitic mass] 30.0 pg Normal 26.0-34.0 [facility] Comment on above: Performed By: #### M G, ETOH, CH8, HEPATIC #### [facility] [address] [place] [address], MCHC (RBC) [Mass/Vol] 33.0 g/dL Normal 32.0-35.9 [facility] Comment on above: Performed By: #### M G, ETOH, CH8, HEPATIC #### [facility] [address], [place], MCV (RBC) [Entitic vol] 91 fL Normal 80-100 [facility] Comment on above: Performed By: #### M G, ETOH, CH8, HEPATIC #### [facility] [address], [place], Platelet mean volume (Bld) [Entitic vol] 7.3 fL Low 7.5-11.2 [facility] Comment on above: Performed By: #### M G, ETOH, CH8, HEPATIC #### [facility] [address], [place], Platelets (Bld) [#/Vol] 332 10*3/uL Normal 150-400 [facility] Comment on above: Performed By: #### M G, ETOH, CH8, HEPATIC #### [facility] [address], [place], RBC (Bld) [#/Vol] 4.35 10*6/uL Low 4.50-5.90 [facility] Comment on above: Performed By: #### M G, ETOH, CH8, HEPATIC #### [facility] [address], [place], WBC (Bld) [#/Vol] 12.6 10*3/uL High 4.5-11.5 [facility] Comment on above: Performed By: #### M G, ETOH, CH8, HEPATIC #### [facility] [address], [place], Care Plan Noteon 01-31-2021 Drier Authentication Interface Message Text Problem: Routine Care: [...] #### 8 2948 #### NURSING GLUCOSE PROGRAM [address] [place] [address], [address] Glucose [Mass/Vol] 113 mg/dL High 68-110 [facility] Comment on above: Performed By: #### M G, ETOH, CH8, HEPATIC #### [facility] [address] [place] [address], Glucose [Mass/Vol] 125 mg/dL High 68-110 [facility] Comment on above: Performed By: #### M G, ETOH, CH8, HEPATIC #### [facility] [address] [place] [address], Glucose [Mass/Vol] 95 mg/dL Normal 68-110 [facility] Comment on above: Performed By: #### M G, ETOH, CH8, HEPATIC #### [facility] [address] [place] [address], MAGNESIUMon 01-31-2021 Magnesium [Mass/Vol] 1.6 mg/dL Normal 1.6-2.8 [facility] Comment on above: Performed By: #### 8 2948 #### NURSING GLUCOSE PROGRAM [address] [place] [address], [address] PHOSPHORUSon 01-31-2021 Phosphate [Mass/Vol] 3.2 mg/dL Normal 2.5-4.8 [facility] Comment on above: Performed By: #### 8 2948 #### NURSING GLUCOSE PROGRAM [address] [place] [address], [address] BASIC METABOLIC PANELon 06- Anion gap [Moles/Vol] 10 mmol/L Normal 5-13 [facility] Comment on above: Performed By: #### M G, ETOH, CH8, HEPATIC #### [facility] [address] [place] [address], Calcium [Mass/Vol] 8.3 mg/dL Low 8.4-10.4 [facility] Comment on above: Performed By: #### M G, ETOH, CH8, HEPATIC #### [facility] [address] [place] [address], Chloride [Moles/Vol] 106 mmol/L Normal 97-111 [facility] Comment on above: Performed By: #### M G, ETOH, CH8, HEPATIC #### [facility] [address] [place] [address], CO2 [Moles/Vol] 27 mmol/L Normal 21-30 [facility] Comment on above: Performed By: #### M G, ETOH, CH8, HEPATIC #### [facility] [address] [place] [address], Creatinine [Mass/Vol] 0.72 mg/dL Low 0.80-1.30 [facility] Comment on above: Performed By: #### M G, ETOH, CH8, HEPATIC #### [facility] [address] [place] [address], ESTIMATED GFR (CKD-EPI) 110 mL/min/1.73sqm Normal >=60 [facility] Comment on above: Performed By: #### M G, ETOH, CH8, HEPATIC #### [facility] [address] [place] [address], Glucose [Mass/Vol] 99 mg/dL Normal 68-110 [facility] Comment on above: Performed By: #### M G, ETOH, CH8, HEPATIC #### [facility] [address] [place] [address], Potassium [Moles/Vol] 4.0 mmol/L Normal 3.3-5.3 [facility] Comment on above: Performed By: #### M G, ETOH, CH8, HEPATIC #### [facility] [address] [place] [address], Sodium [Moles/Vol] 139 mmol/L Normal 135-148 [facility] Comment on above: Performed By: #### M G, ETOH, CH8, HEPATIC #### [facility] [address] [place] [address], Urea nitrogen [Mass/Vol] mg/dL Low 8-22 [facility] Comment on above: Performed By: #### M G, ETOH, CH8, HEPATIC #### [facility] [address] [place] [address], COMPLETE BLOOD COUNTon 01-30 Erythrocyte distribution width (RBC) [Ratio] 14.9 % High 11.5-14.5 [facility] Comment on above: Performed By: #### M G, ETOH, CH8, HEPATIC #### [facility] [address] [place] [address], Hematocrit (Bld) [Volume fraction] 37.6 % Low 41.0-53.0 [facility] Comment on above: Performed By: #### M G, ETOH, CH8, HEPATIC #### [facility] [address] [place] [address], Hemoglobin (Bld) [Mass/Vol] 12.8 g/dL Low 13.9-16.3 [facility] Comment on above: Performed By: #### M G, ETOH, CH8, HEPATIC #### [facility] [address] [place] [address], MCH (RBC) [Entitic mass] 31.8 pg Normal 26.0-34.0 [facility] Comment on above: Performed By: #### M G, ETOH, CH8, HEPATIC #### [facility] [address] [place] [address], MCHC (RBC) [Mass/Vol] 34.0 g/dL Normal 32.0-35.9 [facility] Comment on above: Performed By: #### M G, ETOH, CH8, HEPATIC #### [facility] [address] [place] [address], MCV (RBC) [Entitic vol] 93 fL Normal 80-100 [facility] Comment on above: Performed By: #### M G, ETOH, CH8, HEPATIC #### [facility] [address], [place], Platelet mean volume (Bld) [Entitic vol] 7.3 fL Low 7.5-11.2 [facility] Comment on above: Performed By: #### M G, ETOH, CH8, HEPATIC #### [facility] [address], [place], Platelets (Bld) [#/Vol] 334 10*3/uL Normal 150-400 [facility] Comment on above: Performed By: #### M G, ETOH, CH8, HEPATIC #### [facility] [address], [place], RBC (Bld) [#/Vol] 4.03 10*6/uL Low 4.50-5.90 [facility] Comment on above: Performed By: #### M G, ETOH, CH8, HEPATIC #### [facility] [address], [place], WBC (Bld) [#/Vol] 10.3 10*3/uL Normal 4.5-11.5 [facility] Comment on above: Performed By: #### M G, ETOH, CH8, HEPATIC #### [facility] [address], [place], Care Plan Noteon 01-30-2021 Drier Authentication Interface Message Text Problem: Routine Care: Goal: Patient care will be managed and maintained throughout hospital stay per unit specific routine care procedure Outcome: Progressing- Routine NCCU care in place Problem: Altered Neurological Status: Goal: Optimal neurological status will be maintained or regained Outcome: Progressing- Q2 neuro checks in place, see epic, notify CONTENT ENGINEER with any changes in assessment Problem: Alteration [...] yesterday, calm and follows commands Normal [facility] GLUCOSE, FINGERSTICK-IN OFFI CEon 01-30-2021 Glucose [Mass/Vol] 95 mg/dL Normal 68-110 [facility] Comment on above: Result Comment: Ayaka tolentino RN, APN, MD Performed By: #### 8 2948 #### NURSING GLUCOSE PROGRAM [address] [place] [address], [address] Glucose [Mass/Vol] 102 mg/dL Normal 68-110 [facility] Comment on above: Performed By: #### M G, ETOH, CH8, HEPATIC #### [facility] [address] [place] [address], [id number] Glucose [Mass/Vol] 84 mg/dL Normal 68-110 [facility] Comment on above: Performed By: #### 8 2948 #### NURSING GLUCOSE PROGRAM [address] [place] [address], [address] Glucose [Mass/Vol] 89 mg/dL Normal 68-110 [facility] Comment on above: Performed By: #### M G, ETOH, CH8, HEPATIC #### [facility] [address] [place] [address], [phone] Glucose [Mass/Vol] 126 mg/dL High 68-110 [facility] Comment on above: Result Comment: Ayaka tolentino RN, APN, MD Performed By: #### M G, ETOH, CH8, HEPATIC #### [facility] [address], [place], MAGNESIUMon 01-30-2021 Magnesium [Mass/Vol] 1.9 mg/dL Normal 1.6-2.8 [facility] Comment on above: Performed By: #### M G, ETOH, CH8, HEPATIC #### [facility] [address], [place], PHOSPHORUSon 01-30-2021 Phosphate [Mass/Vol] 3.4 mg/dL Normal 2.5-4.8 [facility] Comment on above: Performed By: #### M G, ETOH, CH8, HEPATIC #### [facility] [address], [place], Progress Noteson 01-30-2021 Drier Authentication Interface Message Text 01/30/21 1309 Belongings AND Valuables Belongings With patient Valuables With patient Dentures, wallet, cell phone, belongings sent with patient on transfer to . Normal [facility] Drier Authentication Interface Message Text NEUROCRITICAL CARE SUBSEQUENT [...] R gaze deviation. Taken by EMS to [facility], where he was intubated for altered mental status with pH 7.14. Lactate 8.8, BG 250s. CTH reportedly without acute finding....stable encephalomalacia within the lateral L temporal lobe. ETOH <5, tox screen + THC. Transferred to [facility] for further evaluation. Admitted to MICU. Seizure activity on arrival to [facility] described as myoclonic jerking in all extremities, [...] tablet, 1 mg, Oral, Daily, Nasra Echols APRN-BENJAMIN * cerovite jr 1 Tablet oral chew tab, 1 Tablet, Oral, Daily, Nasra Echols APRN-CONTENT ENGINEER * lactated ringers iv infusion, , Intravenous, Continuous, Barbra Coleman APRN-CNP, Last Rate: 75 mL/hr at 01/30/21 0700, Rate Verify at 01/30/21 0700 * docusate sodium (COLACE) 100 mg capsule, 100 mg, Oral, 2x Daily, Barbra Coleman APRN-CNP, 100 mg at 01/30/21 0937 * senna (SENOKOT) 8.6 mg tablet, 8.6 mg, Oral, At Bedtime, Barbra Coleman APRN-CNP, 8.6 mg at 01/29/21 2237 * levETIRAcetam in NaCl 100 mL (KEPPRA) ivpb 1,500 mg 100 mL, 1,500 mg, Intravenous, Every 12 hours, Sangeeta Deng APRN-CNP, Last Rate: 400 mL/hr at 01/30/21 0009, 1,500 mg at 01/30/21 0009 * vitamin B-1 (thiamine) 500 mg in dextrose 5 % 100 mL IVPB, 500 mg, Intravenous, 2x Daily, Last Rate: 100 mL/hr at 01/30/21936, 500 mg at 01/30/21936 FOLLOWED BY [START [...] Daily, Deja Wagner MD, 40 mg at 01/30/21936 Exam Neurologic: Awake and alert Slow to [...] 10.3 4.03 12.8 37.6 93 14.9 334 01/29/21130 8.5 3.99 12.4 36.8 92 14.9 312 01/28/21124 14.0 4.27 13.3 39.4 92 14.5 319 Basic Metabolic Panel Na K Cl CO2 Gap Glu BUN Cr Ca 01/30/21 002 139 4.0 106 27 10 99 <3 0.72 8.3 01/29/21129 139 3.8 109 25 9 92 <3 0.58 7.7 01/28/21124 135 4.0 Comment: Hemolysis present 107 24 8 93 3 0.42 7.6 Glucose (mg/dL) Date Value 01/30/2021 99 01/28/2021 Negative Glucose, P (more content not included)... Normal [facility] Transfer Noteon 01-30-2021 Drier Authentication Interface Message Text Transfer of Care Note: HPI: 50M w/ a PMH of seizures, back pain, ETOH abuse presents 01/27 as a transfer from [facility] with status epilepticus. EMS initially called for patient sitting in car with seizure activity. Found unresponsive, given naloxone without response. Glucose 85, taken to [facility] ED. Acidotic (7.14) intubated for airway protection, given 1 gm Keppra, lactate 8.8 --> transferred via [facility] to [facility]MICU. Serum ETOH Negative. Tox screen + THC, [...] to Med Team at 1210 Nasra Echols APRN-[facility] Neurocritical Care Service Pager: [phone] Normal [facility] AMMONIAon 01-29-2021 AMMO 28 umol/L Normal 11-35 [facility] Comment on above: Performed By: #### M G, ETOH, CH8, HEPATIC #### [facility] [address] [place] [address], BASIC METABOLIC PANELon 01-18 Anion gap [Moles/Vol] 9 mmol/L Normal 5-13 [facility] Comment on above: Performed By: #### M G, ETOH, CH8, HEPATIC #### [facility] [address] [place] [address], Calcium [Mass/Vol] 7.7 mg/dL Low 8.4-10.4 [facility] Comment on above: Performed By: #### M G, ETOH, CH8, HEPATIC #### [facility] [address] [place] [address], Chloride [Moles/Vol] 109 mmol/L Normal 97-111 [facility] Comment on above: Performed By: #### M G, ETOH, CH8, HEPATIC #### [facility] [address] [place] [address], CO2 [Moles/Vol] 25 mmol/L Normal 21-30 [facility] Comment on above: Performed By: #### M G, ETOH, CH8, HEPATIC #### [facility] [address] [place] [address], Creatinine [Mass/Vol] 0.58 mg/dL Low 0.80-1.30 [facility] Comment on above: Performed By: #### M G, ETOH, CH8, HEPATIC #### [facility] [address] [place] [address], ESTIMATED GFR (CKD-EPI) 120 mL/min/1.73sqm Normal >=60 [facility] Comment on above: Performed By: #### M G, ETOH, CH8, HEPATIC #### [facility] [address] [place] [address], Glucose [Mass/Vol] 92 mg/dL Normal 68-110 [facility] Comment on above: Performed By: #### M G, ETOH, CH8, HEPATIC #### [facility] [address] [place] [address], Potassium [Moles/Vol] 3.8 mmol/L Normal 3.3-5.3 [facility] Comment on above: Performed By: #### M G, ETOH, CH8, HEPATIC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 Performed By: #### M G, ETOH, CH8, HEPATIC #### [facility] [address] [place] [address], BENZO CL Positive Abnormal Cutoff: 200 [facility] Comment on above: Order Comment: Scree n results are reported as positive (at or above the cutoff) or negative (below the cutoff).The GC/MS testing (if applicable) was developed and its performance characteristics determined by [facility] in a manner consistent with CLIA requirements. This test has not been cleared or approved by the U.S. Food and Drug Administration; however, the FDA has determined that such clearance or approval is not necessary. Performed By: #### M G, ETOH, CH8, HEPATIC #### [facility] [address] [place] [address], COCAINE CL- TOX W/ CONF Negative Normal Cutoff: 300 [facility] [facility] Comment on above: Order Comment: Scree n results are reported as positive (at or above the cutoff) or negative (below the cutoff).The GC/MS testing (if applicable) was developed and its performance characteristics determined by [facility] in a manner consistent with CLIA requirements. This test has not been cleared or approved by the U.S. Food and Drug Administration; however, the FDA has determined that such clearance or approval is not necessary. Performed By: #### M G, ETOH, CH8, HEPATIC #### [facility] [address] [place] [address], LORAZEPAM CONFIRMATION Normal Th e [employer] [facility] [employer] [facility] Comment on above: Order Comment: Scree n results are reported as positive (at or above the cutoff) or negative (below the cutoff).The GC/MS testing (if applicable) was developed and its performance characteristics determined by [facility] in a manner consistent with CLIA requirements. This test has not been cleared or approved by the U.S. Food and Drug Administration; however, the FDA has determined that such clearance or approval is not necessary. Result Comment: Earnest tity not sufficient. Performed By: #### M G, ETOH, CH8, HEPATIC #### [facility] [address] [place] [address], METH CL Negative Normal Cutoff: 300 [facility] [...] ETOH, CH8, HEPATIC #### [facility] [address] [place] [address], NORDIAZ CONFIRMATION Normal [facility] Comment on [...] ETOH, CH8, HEPATIC #### [facility] [address] [place] [address], OPI CL Negative Normal Cutoff: 300 The [...] ETOH, CH8, HEPATIC #### [facility] [address] [place] [address], OXAZEPAM CONFIRMATION Normal [facility] Comment on above: Order Comment: Scree n results are reported as positive (at or above the cutoff) or negative (below the cutoff).The GC/MS testing (if applicable) was developed and its performance characteristics determined by [facility] in a manner consistent with CLIA requirements. This test has not been cleared or approved by the U.S. Food and Drug Administration; however, the FDA has determined that such clearance or approval is not necessary. Result Comment: Earnest rosenbaum not sufficient. Performed By: #### M G, ETOH, CH8, HEPATIC #### [facility] [address] [place] [address], OXYCODONE Negative Normal Cutoff: 100 [facility] Comment on above: Order Comment: Scree n results are reported as positive (at or above the cutoff) or negative (below the cutoff).The GC/MS testing (if applicable) was developed and its performance characteristics determined by [facility] in a manner consistent with CLIA [...] ETOH, CH8, HEPATIC #### [facility] [address] [place] [address], PCP CL Negative Normal Cutoff: 25 [facility] Comment on above: Order Comment: Scree n results are reported as positive (at or above the cutoff) or negative (below the cutoff).The GC/MS testing (if applicable) was developed and its performance characteristics determined by [facility] in a manner consistent with CLIA requirements. This test has not been cleared or approved by the U.S. Food and Drug Administration; however, the FDA has determined that such clearance or approval is not necessary. Performed By: #### M G, ETOH, CH8, HEPATIC #### [facility] [address] [place] [address], TEMAZEPAM CONFIRMATION Normal Th e [facility] Comment on above: Order Comment: Scree n results are reported as positive (at or above the cutoff) or negative (below the cutoff).The GC/MS testing (if applicable) was developed and its performance characteristics determined by [facility] in a manner consistent with CLIA requirements. This test has not been cleared or approved by the U.S. Food and Drug Administration; however, the FDA has determined that such clearance or approval is not necessary. Result Comment: Earnest rosenbaum not sufficient. Performed By: #### M G, ETOH, CH8, HEPATIC #### [facility] [address] [place] [address], THC CL - TOX W/ CONF Positive Abnormal Cutoff: 50 [facility] Comment on above: Order Comment: Scree n results are reported as positive (at or above the cutoff) or negative (below the cutoff).The GC/MS testing (if applicable) was developed and its performance characteristics determined by [facility] in a manner consistent with CLIA requirements. This test has not been cleared or approved by the U.S. Food and Drug Administration; however, the FDA has determined that such clearance or approval is not necessary. Performed By: #### M G, ETOH, CH8, HEPATIC #### [facility] [address] [place] [address], THC CONFIRMATION Positive Abnormal Cutoff: 15 [facility] Comment on above: Order Comment: Scree n results are reported as positive (at or above the cutoff) or negative (below the cutoff).The GC/MS testing (if applicable) was developed and its performance characteristics determined by [facility] in a manner consistent with CLIA requirements. This test has not been cleared or approved by the U.S. Food and Drug Administration; however, the FDA has determined that such clearance or approval is not necessary. Result Comment: The drug analyte detected in this assay, 13-ysj-Sclbwpz-delta 9-THC, is a metabolite of kpfai-4-qclxtszbhbbxwliorwyk (THC). Detection of 11-adm-Gqfbsay-delta 9-THC suggests use of, or exposure to, a product containing THC. This test cannot distinguish between prescribed or non-prescribed forms of THC, nor can it distinguish between active or passive use. The 27-ruv-Vdwgmyv-delta 9-THC metabolite may be detected in urine for several weeks. Performed By: #### M G, ETOH, CH8, HEPATIC #### [facility] [address] [place] [address], Transfer Noteon 01-28-2021 Drier Authentication Interface Message Text Transfer Note: MICU --> [facility] Hospital Course: Jerman Poon is a [...] SBP of 170. He was brought to [facility] ED. Initial exam was notable for active [...] vs alcohol w/d. NCC recommending transfer to [facility] unit. To Do: [ ] EEG Normal [facility] URINALYSISon 01-28-2021 Glucose Ql (U) Negative Normal Negative [facility] Comment on above: Order Comment: A [...] ETOH, CH8, HEPATIC #### [facility] [address] [place] [address], U APPEAR Clear Normal Clear The [employer] [facility] [employer] [facility] Comment on above: Order Comment: A [...] CH8, HEPATIC #### [facility] [address], [place], U BACTERIA Few Normal The [employer] [employer] [facility] Comment on above: Order Comment: A [...] CH8, HEPATIC #### [facility] [address], [place], [place] BILI Negative Normal Negative [facility] Comment on above: Order Comment: A [...] CH8, HEPATIC #### [facility] [address], [place], [place] BLOOD Trace Abnormal Negative [facility] Comment on above: Order Comment: A [...] CH8, HEPATIC #### [facility] [address], [place], [place] COLOR Yellow Normal Yellow [facility] Comment on above: Order Comment: A [...] CH8, HEPATIC #### [facility] [address], [place], [place] KETONE Negative Normal Negative [facility] Comment on above: Order Comment: A [...] CH8, HEPATIC #### [facility] [address], [place], [place] LEUK Trace Abnormal Negative [facility] Comment on above: Order Comment: A [...] ETOH, CH8, HEPATIC #### [facility] [address] [place] [address], U MUCOUS Present Normal [facility] Comment on above: Order Comment: A [...] CH8, HEPATIC #### [facility] [address], [place], [place] NITRITE Negative Normal Negative [facility] Comment on above: Order Comment: A [...] CH8, HEPATIC #### [facility] [address], [place], [place] PH 6.0 Normal 5.0-8.0 [facility] Comment on above: Order Comment: A [...] CH8, HEPATIC #### [facility] [address], [place], [place] PROTEIN Negative Normal Negative [facility] Comment on above: Order Comment: A [...] CH8, HEPATIC #### [facility] [address], [place], [place] RBC 3-5 Abnormal 0-2 [facility] Comment on above: Order Comment: A [...] CH8, HEPATIC #### [facility] [address], [place], [place] SG 1.009 Normal 1.005-1.030 [facility] Comment on above: Order Comment: A [...] ETOH, CH8, HEPATIC #### [facility] [address] [place] [address], U UROBILI Negative Normal 0.1 - 1.0 [facility] Comment on above: Order Comment: A [...] ETOH, CH8, HEPATIC #### [facility] [address] [place] [address], U WBC 3-5 Abnormal 0-2 [facility] Comment on above: Order Comment: A [...] ETOH, CH8, HEPATIC #### [facility] [address] [place] [address], CNCOon 08-15-2019 CNCO Letter Text [facility] CNTHERAPYon 08-11-2019 CNTHERAPY OT/PT/Speech Visit (BECKY) RHODA POON ([id number]) 1970 M Date Time Provider Department 08/11/19 9:15 AM ROSENDA KNIGHT (OT) BECKY Date Time Provider Department Center 08/11/2019 9:15 AM [id number] [facility] Reason for Visit: Occupational Therapy [504] OT Discharge [750] Primary Visit Diagnosis:SAH (subarachnoid hemorrhage) ([facility]) [I60.9] Other Visit Diagnoses:Closed fracture of vault of skull with routine healing, subsequent encounter [S02.0XXD] Subdural hematoma ([facility]) [S06.5X9A] Allergies As of Date: 08/11/2019 Noted Allergy Reaction MORPHINE 06/03/2019 1 - Mental Status Change Comments: Patient's contact reports nightmares VICODIN (HYDROCODONE-ACETAMINOP HE*11/16/2009 1 - Mental Status Change Comments: States has bad nightmares Date Reviewed: 07/25/2019 Reviewed by: [facility] Palma - Fully Assessed Prescriptions as of 08/11/2019 Sig: AMITRIPTYLINE 50 MG TABLET Take 1 tablet by mouth daily * ACETAMINOPHEN 325 MG TABLET Take 2 tablets by mouth every* Progress Notes: WHIT Carlton/Tory OT 08/11/2019 11:01 AM Signed Episode Visit [...] visit well. 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 Wear glasses to drive. 2. See previous report for IADL recommendations. Billing: [place]: Drivers Follow Up per 60 min ([id number]): 1:1 time 60 min Total time: 60 minutes Rosenda Knight OTR/L Letter Text [facility] PROGRESSon 08-11-2019 PROGRESS HNO ID: [id number] Author: Rosenda Knight OT Service: ? Author Type: Occupational [...] visit well. 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 Wear glasses to drive. 2. See previous report for IADL recommendations. Billing: [place]: Drivers Follow Up per 60 min (84133): 1:1 time 60 min Total time: 60 minutes Rosenda Knight OTR/Tory [facility] CNTHERAPYon 08-07-2019 CNTHERAPY OT/PT/Speech Visit (AKOTLK) RHODA POON ([id number]) 1970 M Date Time Provider Department 08/07/19 8:15 AM ROSENDA KNIGHT OT Date Time Provider Department Center 08/07/2019 8:15 AM [id number] LANG Reason for Visit: OT EVAL [748] Primary [...] nightmares Date Reviewed: 07/25/2019 Reviewed by: [facility]) Louie - Fully Assessed Prescriptions as of 08/07/2019 Sig: AMITRIPTYLINE 50 MG TABLET Take 1 tablet by mouth daily * ACETAMINOPHEN 325 MG TABLET Take 2 tablets by mouth every* Progress Notes: WHIT Carlton/Tory, OT 08/07/2019 10:46 AM Signed Episode Visit [...] 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 State: [place] License/Permit #: [id number] Expires: 2022 Restrictions: none 5 Yr. 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 Schlater Pre Sales Network Engineer Simulator: Simple Brake Reaction Time: Average Distance: [...] Back: States/Identifies;Retur n Demonstration TREATMENT: Evaluation Evaluation Self-Half-Way Management: 1: Safety instruction given throughout session. [...] this report indicates the ability of the mechanic driver to operate a motor vehicle on [...] Planned: 1 Patient to be see for Pre Sales Network Engineer rehab evaluation;Drivers training;Patient/Family /Caregiver Education PLAN FOR NEXT VISIT: on the road session Patient demonstrates good understanding of plan of care and treatment. The above goals and plan of care were discussed and agreed upon by patient/family. Billing: [place]: Evaluation - Low Complexity ( [id number]) Self Care / Home Management (44665): 1:1 time: 45 minutes (3 units: 38-52 mins) Community/Work Reintegration (87703): 1:1 time: 15 minutes (1 unit: 8-22 mins) Total time: 1 hour 45 minutes WHIT Carlton/Tory Certified Pre Sales Network Engineer Stand Up Comedian Letter Text [facility] PROGRESSon 08-07-2019 PROGRESS HNO ID: [id number] Author: Rosenda Campos) TIKA Knight Service: ? 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 State: [place] License/Permit #: [id number] Expires: 2022 Restrictions: none 5 Yr. Violation HX: none (speeding ticket in 2008) 5 Yr. MVA HX: none Handicap Parking Placard: NO 1. Rhoda Cejaelisa self report indicates an awareness of: head injury with no recall of events. 2. Rhoda Ayden expressed confidence regarding driving in all conditions. 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 Leoncio Pre Sales Network Engineer Simulator: Simple Brake Reaction Time: Average Distance: [...] Back: States/Identifies;Retur n Demonstration TREATMENT: Evaluation Evaluation Self-Half-Way Management: 1: Safety instruction given throughout session. [...] this report indicates the ability of the mechanic driver to operate a motor vehicle on [...] Planned: 1 Patient to be see for Pre Sales Network Engineer rehab evaluation;Drivers training;Patient/Family /Caregiver Education PLAN FOR NEXT VISIT: on the road session Patient demonstrates good understanding of plan of care and treatment. The above goals and plan of care were discussed and agreed upon by patient/family. Billing: [place]: Evaluation - Low Complexity ( [id number]) Self Care / Home Management (58890): 1:1 time: 45 minutes (3 units: 38-52 mins) Community/Work Reintegration (59481): 1:1 time: 15 minutes (1 unit: 8-22 mins) Total time: 1 hour 45 minutes Rosenda Knight OTR/Tory Certified Pre Sales Network Engineer Stand Up Comedian [facility] CNOVon 07-25-2019 CNOV Office Visit (NEEPBA ) RHODA POON ([id number]) 1970 M Date Time Provider Department 07/25/19 10:00 AM FITO ESCOBEDO During your visit today, we recorded the following information about you: Pulse Respiration Blood pressure Weight 70/minute 12/minute 134/78 83.9 kg Height 1.778 m Fito Escobedo MD 07/25/2019 6:28 PM Signed [facility] EPILEPSY CLINIC NOTE - INITIAL VISIT CHIEF [...] seizure was about 20 years ago, in [facility], about 4 days without EtOH; he was drinking daily at that time. There were two more seizures, both in setting of alcohol withdrawal. The last was about 8-9 years ago. He was hospitalized 06/01 - 06/18/2019 at [facility], transferred from [facility] with traumatic SAH/SDH, skull fracture. 06/01/2019 - [...] patient's next memory was waking up at [facility] two weeks later. His friend had been [...] 1. Head Trauma (Yes, 06/01/2019; fall from [facility] in [id number] with minor HT and concussion); 2. HAIR ROOTING MACHINE OPERATOR Infections (No); 3. Family History of Seizures (No); 4. Developmental Delay (No); 5. Febrile Seizures (No); 6. HAIR ROOTING MACHINE OPERATOR Tumors (No); 7. HAIR ROOTING MACHINE OPERATOR Vascular Disease (Yes, traumatic SAH/SDH 05/2019); 8. [...] [place] new PCP first visit is 08/11 (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 He quit due to pay issues with last employer. 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 NEUROLOGICAL EXAM: Psychomotor slowing. Turns to friend to answer questions. Speech clear. Follows commands. Pupils equal and reactive. Visual mitchell full. EOMs intact. No pronator drift. No dysmetria. Gait steady including tandem. No Romberg sign. DATA Prior EEG results were reviewed. -EEG (10/27/2011, [facility]): normal Prior MRI results were reviewed. -MRI(10/26/2011, [facility]): Mild cerebellar involutional changes with mild enlargement of the superior cerebellar cistern. Minimal FLAIR hyperintensities bilateral white matter, nonspecific. -CT brain (06/01/2019, [place]): Acute left temporal occipital region subdural hematoma [...] cannot be excluded. -CT brain wo (07/04/2019, [facility]): Interval improvement in the left temporal [...] Fito Escobedo MD cc: Chavez Bennett MD [facility] General Neurosurgery Referring Provider: SAM DUMONT (USED EQUIPMENT SALES REPRESENTATIVE.CONTENT ENGINEER) [[id number]] Allergies As of Date: 07/25/2019 Noted Allergy Reaction MORPHINE 06/03/2019 1 - Mental Status Change Comments: Patient's contact reports nightmares VICODIN (HYDROCODONE-ACETAMINOP HE*11/16/2009 1 - Mental Status Change Comments: States has bad nightmares Date Reviewed: 07/25/2019 Reviewed by: [facility] Hospital[facility] Palma - Fully Assessed Reason for Visit: Seizures [97] Reason For Visit History Recorded Primary Visit Diagnosis:Alcohol withdrawal seizure without complication ([facility]) [F10.230] Prescriptions as of 07/25/2019 Sig: AMITRIPTYLINE [...] hematoma (HCC) [S06.5X9A] 06/01/2019 DTs (delirium tremens) ([facility]) [F10.231] 06/02/2019 06/18/2019 SAH (subarachnoid hemorrhage) ([facility]) [I60.9] 06/02/2019 Closed fracture of one rib of left side [S22.32*06/02/2019 Closed fracture of vault of skull ([facility]) [S02.0X*06/02/2019 Aphasia [R47.01] 06/02/2019 06/18/2019 Malnutrition of mild degree ([facility]) [E44.1] 06/05/2019 Acute respiratory failure with hypercapnia [...] Status:Closed by FITO ESCOBEDO MD on 07/25/19 [facility] PROGRESSon 07-25-2019 PROGRESS HNO ID: [id number] Author: iFto Escobedo Service: ? Author Type: Physician Type: Progress Notes Filed: 07/25/2019 6:28 PM Note Text: [facility] EPILEPSY CLINIC NOTE - INITIAL VISIT CHIEF [...] seizure was about 20 years ago, in [facility], about 4 days without EtOH; he was drinking daily at that time. There were two more seizures, both in setting of alcohol withdrawal. The last was about 8-9 years ago. He was hospitalized 06/01 - 06/18/2019 at [facility], transferred from [facility] with traumatic SAH/SDH, skull fracture. 06/01/2019 - [...] patient's next memory was waking up at [facility] two weeks later. His friend had been [...] 1. Head Trauma (Yes, 06/01/2019; fall from [employer] in 1173-8085 with minor HT and concussion); 2. HAIR ROOTING MACHINE OPERATOR Infections (No); 3. Family History of Seizures (No); 4. Developmental Delay (No); 5. Febrile Seizures (No); 6. HAIR ROOTING MACHINE OPERATOR Tumors (No); 7. HAIR ROOTING MACHINE OPERATOR Vascular Disease (Yes, traumatic SAH/SDH 05/2019); 8. [...] daily PRN for shoulder pain PCP: Dr. Cosmo sanchez PCP first visit is 08/11 (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 He quit due to pay issues with last employer. 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 NEUROLOGICAL EXAM: Psychomotor slowing. Turns to friend to answer questions. Speech clear. Follows commands. Pupils equal and reactive. Visual mitchell full. EOMs intact. No pronator drift. No dysmetria. Gait steady including tandem. No Romberg sign. DATA Prior EEG results were reviewed. -EEG (10/27/2011, [facility]): normal Prior MRI results were reviewed. -MRI(10/26/2011, [facility]): Mild cerebellar involutional changes with mild enlargement of the superior cerebellar cistern. Minimal FLAIR hyperintensities bilateral white matter, nonspecific. -CT brain (06/01/2019, [place]): Acute left temporal occipital region subdural hematoma [...] cannot be excluded. -CT brain wo (07/04/2019, [facility]): Interval improvement in the left temporal [...] Fito Escobedo MD cc: Chavez Bennett MD [facility] Neurosurgery [facility] CNOVon 07-04-2019 CNOV Office Visit (NUAGAK ) RHODA POON ([id number]) 1970 M Date Time Provider Department 07/04/19 [...] Age: [age] year old Sex: male MRN/E# [id number] Last Office Visit: N/A: Hospital Follow Up DIAGNOSIS: Traumatic left temporal IPH/SAH/SDH; left parietal bone fracture Chief Complaint: Patient presents with: New Patient Evaluation: Hospital discharge SUBJECTIVE: Rhoda Poon is a 49 year old left-handed male presenting with friend, Sahil. Mr. Poon is here for hospital follow up. He was admitted to [facility] from 06/01/2019 to 06/18/2019, at which time [...] Data Review IMAGING STUDIES: CT [facility]RAIN WO [facility] on 06/20/2019: IMPRESSION: Interval decrease in size [...] returning to work. 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 I advised him that he is not released for driving today. I am sending a referral to occupational therapy to perform a driving evaluation and evaluation of visual-spatial abilities. In addition, I am sending a referral to neurology to determine his hist of seizures and assess for need of half-way antiepileptic medications. - CT BRAIN WO IVCON; Future - CONSULT TO MANAGEMENT CONSULTING; Future 2. Ruptured tympanic membrane, left As above - CONSULT TO ENT; Future Chavez Bennett MD This note was partially generated using [employer] voice recognition system, and there may be some incorrect words, spellings, and punctuation that were not noted in checking the note before saving. Referring Provider: CHAVEZ BENNETT [[id number]] Allergies As of Date: 07/04/2019 Noted Allergy [...] Seizure (HCC) [R56.9] Order(s):CT BRAIN WO IVCON [0657090] Order #: [id number] FUTURE CONSULT TO ENT [9008] Order #: [id number]: 1 FUTURE CONSULT TO MANAGEMENT CONSULTING [19990828] Order #: [id number]: 1 FUTURE CONSULT TO NEUROLOGY [90] Order #: [id number]: 1 FUTURE Prescriptions as of 07/04/2019 Sig: [...] Disorder [F17.200] 12/06/2009 Personal history of alcoholism ([facility]) [F10.21] 12/06/2009 More... Depression [F32.9] 02/03/2012 Tremor [R25.1] 02/03/2012 GERD (gastroesophageal reflux disease) [K21.9] 02/03/2012 Bipolar affective disorder (HCC) [F31.9] 12/21/2012 More... Epilepsy [G40.909] 12/21/2012 More... Pain of upper abdomen [R10.10] 02/15/2017 More... Subdural hematoma ([facility]) [S06.5X9A] 06/01/2019 DTs (delirium tremens) ([facility]) [F10.231] 06/02/2019 06/18/2019 SAH (subarachnoid hemorrhage) ([facility]) [I60.9] 06/02/2019 Closed fracture of one rib of left side [S22.32*06/02/2019 Closed fracture of vault of skull ([facility]) [S02.0X*06/02/2019 Aphasia [R47.01] 06/02/2019 06/18/2019 Malnutrition of mild degree ([facility]) [E44.1] 06/05/2019 Acute respiratory failure with hypercapnia ([facility]*06/07/2019 06/18/2019 Fever [R50.9] 06/13/2019 06/18/2019 Leukocytosis [D72.829] 06/13/2019 Cavitary pneumonia [J18.9, J98.4] 06/13/2019 Disposition: Return if symptoms worsen or fail to improve. Follow-up and Disposition History Recorded Encounter Status:Closed by CHAVEZ BENNETT on 07/04/19 [facility] CT BRAIN WO IVCONon 07-04-[address] BRAIN WO IVCON * * [...] new or acute intracranial abnormality is seen. Chemical Processor: PSCB Transcribe Date/Time: Jul 07 2019 2:35P Dictated by : MARIZOL VANESSA MD This examination was interpreted and the report reviewed and electronically signed by: MARIZOL VANESSA MD on Jul 07 2019 2:43PM EST Normal [facility] PROGRESSon 07-04-2019 PROGRESS HNO ID: [id number] Author: Chavez Bennett Service: ? Author Type: Physician Type: Progress Notes Filed: 07/04/2019 11:28 AM Note Text: NEUROSURGERY FOLLOW UP OFFICE NOTE Chavez Bennett MD Date of visit: July 04, 2019 Patient Name: Mr.William Poon Date of : 1970 Current Age: [age] year old Sex: male MRN/E# [id number] Last Office Visit: N/A: Hospital Follow Up DIAGNOSIS: Traumatic left temporal IPH/SAH/SDH; left parietal bone fracture Chief Complaint: Patient presents with: New Patient Evaluation: Hospital discharge SUBJECTIVE: Rhoda Poon is a 49 year old left-handed male presenting with friend, Sahil. Mr. Poon is here for hospital follow up. He was admitted to [facility] from 06/01/2019 to 06/18/2019, at which time [...] Data Review IMAGING STUDIES: CT BRAIN WO IVCON on 06/20/2019: IMPRESSION: Interval decrease in size [...] returning to work. 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 I advised him that he is not released for driving today. I am sending a referral to occupational therapy to perform a driving evaluation and evaluation of visual-spatial abilities. In addition, I am sending a referral to neurology to determine his hist of seizures and assess for need of terminal make up operator antiepileptic medications. - CT BRAIN WO IVCON; Future - CONSULT TO MANAGEMENT CONSULTING; Future 2. Ruptured tympanic membrane, left As above - CONSULT TO ENT; Future Chavez Bennett MD This note was partially generated using [employer] recognition system, and there may be some incorrect words, spellings, and punctuation that were not noted in checking the note before saving. [facility] Histoplasma Agon 06-19-2019 Histoplasma Ag None detected. Normal [place] [facility] Comment on above: Result Comment: (NOT E) Reference interval: None Detected Results reported as ng/mL in 0.4 - 19.0 ng/mL range. Results above the limit of detection but below 0.4 ng/mL are reported as 'Positive, Below the Limit of Quantification'. Results above 19.0 ng/mL are reported as 'Positive, Above the Limit of Quantification'. This test was developed and its performance characteristics determined by [facility]. It has not been cleared or approved by the FDA; however, FDA clearance or approval is not currently required for clinical use. The results are not intended to be used as the sole means for clinical diagnosis or patient management decisions. Test performed by [facility], [address] [place] [address] [place] [address] Performing Laboratory: Performed By: #### P T #### [place] [address] (ADH)Arg, Vasopres.on 2018 (ADH)Arg, Vasopres. 7.6 High [facility] Comment on above: Result Comment: Refe rence range: 0.0 to 6.9 Unit: pg/mL (NOTE) INTERPRETIVE INFORMATION: Arginine Vasopressin Hormone Test developed and characteristics determined by [facility]. See Compliance Statement D: [employer] Performed by [facility], [address] [place] [id number] www.[email or web address], Francisco Rainey MD, Lab. Director Performing Laboratory: Performed By: #### P T #### [place] [address] Aspergillus Agon 06-18-2019 Aspergillus Ag <0.50 Normal [facility] Comment on above: Result Comment: Inde x Values are Interpreted as Follows: Negative specimens <0.50 Positive specimens >=0.50 Performing Laboratory: [facility] [address] [place] [address] Performed By: #### P T #### [place] [address] Q-S-Wmeusyxc 06-18-2019 Glucose [Mass/Vol] SEE BELOW Normal [facility] Comment on above: Result Comment: Catrachito mena Assay Negative Reference range: Negative (NOTE) INTERPRETIVE INFORMATION: (1,3)-coda-H-cchnng (Fungitell) Less than 31 pg/mL ................... Negative 31-59 pg/mL .......................... Negative 60-79 pg/mL .......................... Indeterminate Greater than or equal to 80 pg/mL .... Positive The Fungitell test is indicated for presumptive diagnosis of fungal infection and should be used in conjunction with other diagnostic procedures. This test does not detect certain fungal species such as Cryptococcus, which produce very low levels of (1,3)-mjmf-K-chambp. This test will not detect the zygomycetes, such as Absidia, Mucor, and Rhizopus, which are not known to produce (1,3)-tsrb-L-iwdbus. In addition, the yeast phase of Blastomyces dermatitidis produces little (1,3)-obdu-B-pvdtoo and may not be detected by the assay. Performed by [facility], [address] [place] [id number] www.[employer], Francisco Rainey MD, Lab. Director Fungiterasheeda Comments <31 Unit: pg/mL Performing Laboratory: Performed By: #### P T #### [facility] [address] [place] [address] CASE MANAGEMon 06-18-2019 CASE MANAGEM HNO ID: [id number] Author: Sayda Rand (Sw) Service: ? Author Type: Steel Pan Form Placing Supervisor Type: Care Mgt Progress Note Filed: 06/18/2019 [...] appointment for patient close to home with [facility]. Patient does have HCAP and is covered 100%. Sahil will follow up with medicaid application that [employer] mailed to them. Indigent medications will be provided for patient. Patient will be transported by cab with significant other Sahil. SIGNATURE: FITZ Berman PATIENT NAME: Rhoda Poon DATE: June 18, 2019 TIME: 10:46 AM PAGER/CONTACT #: [phone] [facility] Hemogram/Diffon 06-18-2019 Abs Immature Grans 0.14 thou/cmm High 0.00-0.05 [facility] Comment on above: Performed By: #### P T #### [place] [address] Abs Neut (ANC) 8.36 thou/cmm High 1.78-5.38 [facility] Comment on above: Performed By: #### P T #### [place] [address] Abs. Baso 0.11 thou/cmm High 0.01-0.08 [facility] Comment on above: Performed By: #### P T #### [place] [address] Abs. [place] 1.01 thou/cmm High 0.30-0.82 [facility] Comment on above: Performed By: #### P T #### [place] [address] Basophils/100 WBC (Bld) 0.9 % Normal [facility] Comment on above: Performed By: #### P T #### [address], [place] [address] Eosinophils (Bld) [#/Vol] 0.31 thou/cmm Normal 0.04-0.54 [facility] Comment on above: Performed By: #### P T #### [facility] [address] [place], [place] [address] Eosinophils/100 WBC (Bld) 2.6 % Normal [facility] Comment on above: Performed By: #### P T #### [facility] [address] [place], [place] [address] Immature Grans 1.20 % Normal [facility] Comment on above: Performed By: #### P T #### [facility] [address] [place], [place] [address] Lymphocytes (Bld) [#/Vol] 2.14 thou/cmm Normal 0.84-2.85 [facility] Comment on above: Performed By: #### P T #### [facility] [address] [place], [place] [address] Lymphocytes/100 WBC (Bld) 17.7 % Normal [facility] Comment on above: Performed By: #### P T #### [facility] [address] [place], [place] [address] Monocytes/100 WBC (Bld) 8.4 % Normal [facility] Comment on above: Performed By: #### P T #### [facility] [address] [place], [place] [address] Seg Neutrophil 69.2 % Normal [facility] Comment on above: Performed By: #### P T #### [facility] [address] [place], [place] [address] Erythrocyte distribution width (RBC) [Ratio] 13.8 % Normal 11.6-14.4 [facility] Comment on above: Performed By: #### P T #### [facility] [address] [place], [place] [address] Hematocrit (Bld) [Volume fraction] 39.5 % Low 40.1-51.0 [facility] Comment on above: Performed By: #### P T #### [facility] [address] [place], [place] [address] Hemoglobin (Bld) [Mass/Vol] 13.2 g/dL Low 13.7-17.5 [facility] Comment on above: Performed By: #### P T #### [facility] [address] [place] [address] MCH (RBC) [Entitic mass] 31.7 pg Normal 25.7-32.2 [facility] Comment on above: Performed By: #### P T #### [facility] [address] [place] [address] MCHC (RBC) [Mass/Vol] 33.4 % Normal 32.3-36.5 [facility] Comment on above: Performed By: #### P T #### [facility] [address] [place] [address] MCV (RBC) [Entitic vol] 94.7 fL Normal 83.2-95.6 [facility] Comment on above: Performed By: #### P T #### [facility] [address] [place] [address] Platelet mean volume (Bld) [Entitic vol] 8.8 fL Normal 8.7-12.0 [facility] Comment on above: Performed By: #### P T #### [facility] [address] [place] [address] Platelets (Bld) [#/Vol] 1038 thou/cmm Critically high 141-365 [facility] Comment on above: Result Comment: Repe ated AND verified Performed By: #### P T #### [facility] [address] [place] [address] RBC (Bld) [#/Vol] 4.17 mil/cmm Low 4.63-6.08 [facility] Comment on above: Performed By: #### P T #### [facility] [address] [place] [address] RDW SD 48.2 fl High 36.1-45.8 [facility] Comment on above: Performed By: #### P T #### [facility] [address] [place] [address] WBC (Bld) [#/Vol] 12.08 thou/cmm High 4.23-9.07 [facility] Comment on above: Performed By: #### P T #### [facility] [address] [place], [place] [address] Histoplasma Ab - CFon 2018 Histoplasma Ab - CF SEE BELOW [facility] Comment on above: Result Comment: Hist o Yeast AB-CF <1:8 DLT8 Dilutions Reference Range: Negative <1:8 Histo Mycelial AB-CF <1:8 DLT8 Dilutions Reference Range: Negative <1:8 Performing Laboratory: [facility] [address] [place] [address] Performed By: #### P T #### [address] [address] NURSING PROGon 06-18-2019 NURSING PROG HNO ID: [id number] Author: Sallie (Rn) GILBERTO Vincent Service: Orthopaedic Surgery Author Type: Registered Nurse Type: Nursing Progress Note Filed: 06/18/2019 10:38 AM Note Text: Patient declined influenza vaccine at this time. [facility] PLAN OF CAREon 06-18-2019 PLAN OF CARE HNO ID: [id number] Author: Lilliana Sen (Pharmacist) Service: Pharmacy Author [...] SEN, PHARMACIST June 18, 2019 1:44 PM [id number] Medication List START taking these medications acetaminophen [...] These medications were sent to e- [facility] [place] [address] - [address] [facility] - [phone] [id number] [address] [facility] [address] ? aspirin 81 mg chewable tablet ? cefADROxil 500 mg capsule ? levoFLOXacin 750 mg tablet You can get these medications from any pharmacy You don't need a prescription for these medications ? acetaminophen 325 mg tablet [facility] PLAN OF CARE HNO ID: [id number] Author: Tammi Sanford ([place]) Service: Pharmacy Author Type: ? Type: Plan of Care Filed: 06/18/2019 11:00 AM Note Text: BOX PERSON BEDSIDE DELIVERY SURVEY 1. Patient to use [facility] Bedside Delivery - YES Insurance Information as follows: 2. Insurance card on file - NO 3. Credit card for payment - N/A Levaquin 750 mg, only had #21 tabs in stock, pt will have a refill of 9 tabs. Duricef 500 mg Aspirin 81 mg Contact Tammi at [phone] or other bedside Tech [phone] with questions prior to discharge No copay Pharmacy Discharge Medication Service: This patient has elected to receive their discharge prescriptions through the [facility] Bedside Prescription Delivery program. The prescriptions are currently being processed. A follow-up note will be entered once the prescriptions have been filled and delivered to the patient. Please contact me with any questions or updates to the patient's discharge medications. Tammi Sanford ([place]) DCT Contact Info: Extension [phone], or [phone] [facility] PROGRESSon 06-18-2019 PROGRESS HNO ID: [id number] Author: Kat Snyder Service: Infectious Disease Author Type: Physician Type: Progress Notes Filed: 06/18/2019 10:29 AM Note Text: Kat Snyder MD, MS, FACP, FIDSA Division of Infectious Diseses [address] [place] [address] Office: [phone] INFECTIOUS DISEASE CONSULT PROGRESS NOTE SERVICE DATE: [...] q 4 H while awake - pill pleater hand (patient-specific) 1 Each Miscell. (Med.Supl.;Non-Drugs) PRN - [...] 18, 2019 TIME: 10:24 AM PAGER/CONTACT #: [phone] [facility] PROGRESS HNO ID: [id number] Author: Ciro Denney) Jesse Service: Trauma Author Type: Physician [employer] Type: Progress Notes Filed: 06/18/2019 7:21 AM [...] Therapy: Room Air IANDO: Date 06/17/19699 - 06/18/1965806/18/19699 - 06/19/19 0659 Shift 0885-5685 9199-5325 7085-8213 24 Hour Total 2911-8553 7730-5779 6518-5503 24 Hour Total INTAKE PO 840 643 036 5671 PO 840 738 899 5300 Shift Total 840 659 876 3847 OUTPUT Urine 700 208 488 6318 Void (ml) 700 896 543 4341 Urine Not Saved. 1 x 1 x Shift Total 700 264 942 1017 Weight (kg) 77.3 77.3 77.3 77.3 77.3 [...] q 4 H while awake - pill pleater hand (patient-specific) 1 Each Miscell. (Med.Supl.;Non-Drugs) PRN - [...] 06/13/2019 - Acute respiratory failure with hypercapnia ([facility]) 06/07/2019 - Malnutrition of mild degree ([facility]) 06/05/2019 - DTs (delirium tremens) ([facility]) 06/02/2019 - SAH (subarachnoid hemorrhage) ([facility]) 06/02/2019 - Closed fracture of one rib of left side 06/02/2019 - Closed fracture of vault of skull ([facility]) 06/02/2019 - Aphasia 06/02/2019 - Subdural hematoma ([facility]) 06/01/2019 - Bipolar affective disorder ([facility]) 12/21/2012 Overview Note: Diagnosed in ~1989 ? [...] thrombocytosis 9. Diet: Dysphagia II/Thin liquids per [employer] recommendations 10. Pain Regimen: PRN Tylenol 11. Bowel Regimen: Senna-S 12. Labs: 1.) WBC 12.08 from 12.0 2.) Hgb 13.2 from 13.1 13. Bioethics consulted - appreciate recommendations. Prophylaxis: 1. DVT ppx: SCD, LVX Consulted Services and Recommendations: 1. SICU 2. Neurosurgery 3. Bioethics Dispo Plannin. PT/OT recommending Acute Rehab. CM following. Patient will be discharged home today with 24/7 care per his friend Sahil. Follow Up [...] ICU or 2174 if on RNF. [facility] Quantiferon (Rapd TB)on 05-22 Quantiferon (Rapd TB) SEE BELOW Normal [facility] Comment on above: Result Comment: TB N [...] recollecting sample with sufficient agitation. Performing Laboratory: [facility] [address] [place] [id number] Performed By: #### P T #### [place] [address] CASE MANAGEMon 06-17-2019 CASE MANAGEM HNO ID: [id number] Author: Sayda Rand (Sw) Service: ? Author Type: Steel Pan Form Placing Supervisor Type: Care Mgt Progress Note Filed: 06/17/2019 [...] 17, 2019 TIME: 2:08 PM PAGER/CONTACT #: [phone] [facility] CASE MANAGEM HNO ID: [id number] Author: Sayda Rand (Sw) Service: ? Author Type: Steel Pan Form Placing Supervisor Type: Care Mgt Progress Note Filed: 06/17/2019 8:28 AM Note Text: CARE MANAGEMENT PROGRESS NOTE SERVICE DATE: 06/17/2019 SERVICE TIME: 8:24 AM LOS: 16 days Spoke with Chinyere from Financial counseling and she stated Sahil patients significant other called and provided financial information. SIGNATURE: FITZ Berman PATIENT NAME: Rhoda Poon DATE: June 17, 2019 TIME: 8:24 AM PAGER/CONTACT #: [phone] [facility] CASE MANAGEM HNO ID: [id number] Author: Sayda Rand (Sw) Service: ? Author Type: Steel Pan Form Placing Supervisor Type: Care Mgt Progress Note Filed: 06/17/2019 8:09 AM Note Text: CARE MANAGEMENT PROGRESS NOTE SERVICE DATE: 06/17/2019 SERVICE TIME: 8:03 AM LOS: 16 days Lukas Rueda denied patient. Patent doesn't have medicaid. Sahil significant other will call for HCAP and fill out paperwork for medicaid. Will continue to work with Sahil for SNF. SIGNATURE: Sayda Keyona FITZ PATIENT NAME: Rhoda Poon DATE: June 17, 2019 TIME: 8:02 AM PAGER/CONTACT #: [phone] [facility] Hemogram/Diffon 06-17-2019 Abs Immature Grans 0.16 thou/cmm High 0.00-0.05 [facility] Comment on above: Performed By: #### P T #### [place] [address] Abs Neut (ANC) 7.64 thou/cmm High 1.78-5.38 [facility] Comment on above: Performed By: #### P T #### [place] [address] Abs. Baso 0.14 thou/cmm High 0.01-0.08 [facility] Comment on above: Performed By: #### P T #### [place] [address] Abs. [place] 1.08 thou/cmm High 0.30-0.82 [facility] Comment on above: Performed By: #### P T #### [address] [place], [place] [address] Basophils/100 WBC (Bld) 1.2 % Normal [facility] Comment on above: Performed By: #### P T #### [facility] [address] [place], [place] [address] Eosinophils (Bld) [#/Vol] 0.32 thou/cmm Normal 0.04-0.54 [facility] Comment on above: Performed By: #### P T #### [facility] [address] [place], [place] [address] Eosinophils/100 WBC (Bld) 2.7 % Normal [facility] Comment on above: Performed By: #### P T #### [facility] [address] [place] [address] Erythrocyte distribution width (RBC) [Ratio] 13.7 % Normal 11.6-14.4 [facility] Comment on above: Performed By: #### P T #### [facility] [address] [place] [address] Hematocrit (Bld) [Volume fraction] 39.5 % Low 40.1-51.0 [facility] Comment on above: Performed By: #### P T #### [facility] [address] [place], [place] [address] Hemoglobin (Bld) [Mass/Vol] 13.1 g/dL Low 13.7-17.5 [facility] Comment on above: Performed By: #### P T #### [facility] [address] [place] [address] Immature Grans 1.30 % Normal [facility] Comment on above: Performed By: #### P T #### [facility] [address] [place], [place] [address] Lymphocytes (Bld) [#/Vol] 2.65 thou/cmm Normal 0.84-2.85 [facility] Comment on above: Performed By: #### P T #### [facility] [address] [place], [place] [address] Lymphocytes/100 WBC (Bld) 22.1 % Normal [facility] Comment on above: Performed By: #### P T #### [facility] [address] [place], [place] [address] MCH (RBC) [Entitic mass] 31.6 pg Normal 25.7-32.2 [facility] Comment on above: Performed By: #### P T #### [facility] [address] [place] [address] MCHC (RBC) [Mass/Vol] 33.2 % Normal 32.3-36.5 [facility] Comment on above: Performed By: #### P T #### [facility] [address] [place] [address] MCV (RBC) [Entitic vol] 95.2 fL Normal 83.2-95.6 [facility] Comment on above: Performed By: #### P T #### [facility] [address] [place] [address] Monocytes/100 WBC (Bld) 9.0 % Normal [facility] Comment on above: Performed By: #### P T #### [facility] [address] [place] [address] Platelet mean volume (Bld) [Entitic vol] 8.6 fL Low 8.7-12.0 [facility] Comment on above: Performed By: #### P T #### [facility] [address] [place] [address] Platelets (Bld) [#/Vol] 1117 thou/cmm Critically high 141-365 [facility] Comment on above: Result Comment: Repe ated AND verified Performed By: #### P T #### [facility] [address] [place] [address] RBC (Bld) [#/Vol] 4.15 mil/cmm Low 4.63-6.08 [facility] Comment on above: Performed By: #### P T #### [facility] [address] [place] [address] RDW SD 48.0 fl High 36.1-45.8 [facility] Comment on above: Performed By: #### P T #### [facility] [address] [place] [address] Seg Neutrophil 63.7 % Normal [facility] Comment on above: Performed By: #### P T #### [facility] [address] [place], [place] [address] WBC (Bld) [#/Vol] 12.00 thou/cmm High 4.23-9.07 [facility] Comment on above: Performed By: #### P T #### [facility] [address] [place], [place] [address] PLAN OF CAREon 06-17-2019 PLAN OF CARE HNO ID: [id number] Author: Helen Peters (Business Development Intern) Service: ? Author Type: ? Type: Plan of Care Filed: 06/17/2019 3:02 PM Note Text: BOX PERSON BEDSIDE DELIVERY SURVEY 1. Patient to use [facility] Bedside Delivery - YES Insurance Information as follows: 2. Insurance card on file - NO 3. Credit card for payment - N/A Patient elected to use bedside delivery. No prescriptions currently written. Please call pharmacy bedside delivery at [phone] or [phone] when patient has discharge orders and prescriptions are ready to be filled and delivered prior to discharge. Thank you. Helen Peters ([place]) *indigent form received* [facility] PROGRESSon 06-17-2019 PROGRESS HNO ID: [id number] Author: Kat Snyder Service: Infectious Disease Author Type: Physician Type: Progress Notes Filed: 06/17/2019 10:16 AM Note Text: Kat Snyder MD, MS, FACP, [facility] Division of Infectious Diseses [address] [place] [address] [address] [place] [address] Office: [phone] INFECTIOUS DISEASE CONSULT PROGRESS NOTE SERVICE DATE: [...] 81 mg ORAL/FEEDING TUBE DAILY - pill pleater hand (patient-specific) 1 Each Miscell. (Med.Supl.;Non-Drugs) PRN - [...] Impression/Recommendati ons Active Problems: Bipolar affective disorder ([facility]) POA: Yes Assessment AND Plan: Complicates management. DTs (delirium tremens) ([facility]) POA: Yes Assessment AND Plan: Needs to stop drinking. SAH (subarachnoid hemorrhage) ([facility]) POA: Yes Assessment AND Plan: Per trauma [...] discharged. SIGNATURE: Kat Snyder MD, MS, FACP, FIDSA PATIENT NAME: Rhoda Poon DATE: June 17, 2019 TIME: 10:09 AM PAGER/CONTACT #: [phone] [facility] PROGRESS HNO ID: [id number] Author: Ciro Hernandez (Destini) Jesse Service: Trauma Author Type: Physician [employer] Dean Type: Progress Notes Filed: 06/17/2019 7:45 AM [...] kg/m? O2 Therapy: Room Air IANDO: Date 06/16/19699 - 06/17/1965806/17/19699 - 06/18/19 0659 Shift 1421-9128 7049-0517 3577-6849 24 Hour Total 2201-7353 8546-9217 2775-4794 24 Hour Total INTAKE PO 240 394 792 7753 PO 240 764 152 4350 Shift Total 240 752 665 3139 OUTPUT Urine 250 948 255 3459 Void (ml) 250 608 998 0271 Shift Total 250 582 104 5957 Weight (kg) 77.3 77.3 77.3 77.3 77.3 [...] 81 mg ORAL/FEEDING TUBE DAILY - pill pleater hand (patient-specific) 1 Each Miscell. (Med.Supl.;Non-Drugs) PRN - [...] 06/13/2019 - Acute respiratory failure with hypercapnia ([facility]) 06/07/2019 - Malnutrition of mild degree ([facility]) 06/05/2019 - DTs (delirium tremens) ([facility]) 06/02/2019 - SAH (subarachnoid hemorrhage) ([facility]) 06/02/2019 - Closed fracture of one rib of left side 06/02/2019 - Closed fracture of vault of skull ([facility]) 06/02/2019 - Aphasia 06/02/2019 - Subdural hematoma ([facility]) 06/01/2019 - Bipolar affective disorder ([facility]) 12/21/2012 Overview Note: Diagnosed in ~1989 ? [...] toilet 9. Diet: Dysphagia II/Thin liquids per [employer]ER recommendations 10. Pain Regimen: PRN Tylenol 11. [...] questions or concerns Mon-Fri 6a-5p please page [phone]. After 5pm and on Weekends and Holidays, please page [phone] if in ICU or [phone] if on RNF. [facility] THERAPY NTon 06-17-2019 THERAPY NT HNO ID: [id number] Author: Sarahy (Ccc-Zinc Etcher) Osbaldo CCC/[employer]OBATE LAWYER Service: Speech/Swallow Author Type: Speech Language Pathologist Type: Therapy (PT/OT/Speech/Resp) Filed: 06/17/2019 2:56 PM Note Text: Speech Therapy Speech Evaluation, Treatment SERVICE DATE: 06/17/2019 SERVICE TIME: 1105 to 1135 ROOM: [id number] Nursing Recommendations: See swallow guide posted in patients room;Reinforce use of swallowing strategies;Reinforce use of communication strategies Diet Recommendations: Regular Consistency; Thin Liquids IDDSI Level 0 Swallowing Precautions Recommendations: Alternate bites and sips; Feed / Eat at a slow rate; Sit upright 90 degrees for all PO; Small Bite/Sip Results and Recommendations Discussed With: Patient;Nurse, Sas Administrator, Trauma PA Recommended Discharge Disposition: Acute Rehab - Patient would benefit from intensive therapies to maximize potential to return to baseline level of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 Poon's care. SIGNATURE: Sally Robles JD (Bioethics Staff) PATIENT NAME: Rhoda Poon DATE: June 14, 2019 TIME: 2:12 PM PAGER/CONTACT #: [phone] [facility] Creatinine Clearanceon 10-26 -2019 Creatinine [Mass/Vol] 1.3 g/24 hrs Normal 0.9-2.4 [facility] Comment on above: Performed By: #### P T #### [facility] [address] [place] [address] Total Volume 2380 mL High 1223-1840 [facility] Comment on above: Performed By: #### P T #### [facility] [address] [place] [address] Hemogram/Diffon 06-14-2019 Abs Immature Grans 0.21 thou/cmm High 0.00-0.05 [facility] Comment on above: Performed By: #### P T #### [place] [address] Abs Neut (ANC) 14.06 thou/cmm High 1.78-5.38 [facility] Comment on above: Performed By: #### P T #### [facility] [address] [place] [address] Abs. Baso 0.16 thou/cmm High 0.01-0.08 [facility] Comment on above: Performed By: #### P T #### [facility] [address] [place] [address] Abs. [place] 1.26 thou/cmm High 0.30-0.82 [facility] Comment on above: Performed By: #### P T #### [place] [address] Basophils/100 WBC (Bld) 0.9 % Normal [facility] Comment on above: Performed By: #### P T #### [facility] [address] [place] [address] Eosinophils (Bld) [#/Vol] 0.45 thou/cmm Normal 0.04-0.54 [facility] Comment on above: Performed By: #### P T #### [place] [address] Eosinophils/100 WBC (Bld) 2.6 % Normal [facility] Comment on above: Performed By: #### P T #### [facility] [address] [place] [address] Erythrocyte distribution width (RBC) [Ratio] 13.9 % Normal 11.6-14.4 [facility] Comment on above: Performed By: #### P T #### [facility] [address] [place] [address] Hematocrit (Bld) [Volume fraction] 39.8 % Low 40.1-51.0 [facility] Comment on above: Performed By: #### P T #### [facility] [address] [place] [address] Hemoglobin (Bld) [Mass/Vol] 13.4 g/dL Low 13.7-17.5 [facility] Comment on above: Performed By: #### P T #### [facility] [address] [place] [address] Immature Grans 1.20 % Normal [facility] Comment on above: Performed By: #### P T #### [facility] [address] [place] [address] Lymphocytes (Bld) [#/Vol] 1.33 thou/cmm Normal 0.84-2.85 [facility] Comment on above: Performed By: #### P T #### [facility] [address] [place] [address] Lymphocytes/100 WBC (Bld) 7.6 % Normal [facility] Comment on above: Performed By: #### P T #### [facility] [address] [place] [address] MCH (RBC) [Entitic mass] 32.5 pg High 25.7-32.2 [facility] Comment on above: Performed By: #### P T #### [facility] [address] [place] [address] MCHC (RBC) [Mass/Vol] 33.7 % Normal 32.3-36.5 [facility] Comment on above: Performed By: #### P T #### [place] [address] MCV (RBC) [Entitic vol] 96.6 fL High 83.2-95.6 [facility] Comment on above: Performed By: #### P T #### [facility] [address] [place] [address] Monocytes/100 WBC (Bld) 7.2 % Normal [facility] Comment on above: Performed By: #### P T #### [facility] [address] [place] [address] Platelet mean volume (Bld) [Entitic vol] 8.6 fL Low 8.7-12.0 [facility] Comment on above: Performed By: #### P T #### [facility] [address] [place] [address] Platelets (Bld) [#/Vol] 1082 thou/cmm Critically high 141-365 [facility] Comment on above: Performed By: #### P T #### [place] [address] RBC (Bld) [#/Vol] 4.12 mil/cmm Low 4.63-6.08 [facility] Comment on above: Performed By: #### P T #### [facility] [address] [place] [address] RDW SD 49.7 fl High 36.1-45.8 [facility] Comment on above: Performed By: #### P T #### [place] [address] Seg Neutrophil 80.5 % Normal [facility] Comment on above: Performed By: #### P T #### [facility] [address] [place] [address] WBC (Bld) [#/Vol] 17.46 thou/cmm High 4.23-9.07 [facility] Comment on above: Performed By: #### P T #### [facility] [address] [place] [address] Ionized Calciumon 06-14-2019 Ionized Ca,PH7.4 4.79 mg/dL Normal 4.61-5.17 [facility] Comment on above: Performed By: #### P T #### [address] [place], [place] [address] pH (Bld) 7.425 [pH] Normal 7.320-7.430 [facility] Comment on above: Performed By: #### P T #### [facility] [address] [place], [place] [address] Ionized Calcium 4.72 mg/dL Normal 4.61-5.17 [facility] Comment on above: Performed By: #### P T #### [address] [address] Magnesium Bloodon 06-14-2019 Magnesium [Mass/Vol] 2.0 mg/dL Normal 1.6-2.6 [facility] Comment on above: Performed By: #### P T #### [address] [address] NURSING PROGon 06-14-2019 NURSING PROG HNO ID: [id number] Author: Gilberto Gomez) GILBERTO Clemens Service: ? Author Type: Registered Nurse Type: Nursing Progress Note Filed: 06/14/2019 12:37 PM Note Text: Nursing Progress Note Patient Name: Rhoda Poon Patient Location: [place] [address] [id number] - Transfer Note: Patient transferred into room/unit 5205 in stable condition. Actions taken: Report given/called to Jaimee MACIAS. Jaimee MACIAS visualized at bedside, assessing patient and taking vitals when left in his new room. This note was completed by: Gilberto Clemens RN [facility] PROGRESSon 06-14-2019 PROGRESS HNO ID: [id number] Author: Wlimer Bolton III Service: Infectious Disease Author Type: Physician Type: Progress Notes Filed: 06/14/2019 1:52 PM Note Text: Pseudomonas sidhu-susceptible. Stop Meropenem, continue levaquin. SIGNATURE: Wilmer Bolton III, MD PATIENT NAME: Rhoda Poon DATE: June 14, 2019 TIME: 1:52 PM PAGER/CONTACT #: [phone] [facility] PROGRESS HNO ID: [id number] Author: Lilliana Beltran Service: Critical Care Author [...] INTRAMUSCULAR q 6 H PRN - pill pleater hand (patient-specific) 1 Each Miscell. (Med.Supl.;Non-Drugs) PRN - [...] Max:37.6 ?C (99.7 ?F) Date 06/13/19699 - 06/14/1965806/14/19699 - 06/15/19 0659 Shift 4835-5595 0812-7506 6945-3551 24 Hour Total 2136-0812 9188-6110 2332-4437 24 Hour Total INTAKE PO 150 510 660 PO 150 510 660 IV 510.6 406 444 1504.6 IVPB 250 250 NS 0.9% 65 65 Vancomycin IV 250 250 Propofol IV 60.6 60.6 Meropenem (Merrem) 100 100 200 MAGNESIUM SULFATE 50 50 Levofloxacin IVPB 150 150 Irrigants 300 30 30 360 Irrigant/Flush Amount In (GI Feed 10/14/19 1446 Gastric Right Naris 12 Fr) 300 30 30 360 Gastric Tube 293 202 365 860 Tube Feed Intake (I/O) (GI Feed 06/02/19 1446 Gastric Right Naris 12 Fr) 293 202 365 860 Shift Total 1103.6 732 1070 2905.6 OUTPUT Urine 2353 604 8029 3045 Output ( External Collection Device 06/04/191999) 3278 467 7617 3045 # of BMs Number of BMs 1 x 0 x 1 x Shift Total 4721 663 0949 3045 Weight (kg) 77.3 77.3 77.3 77.3 [...] Degree (Hcc) Acute Respiratory Failure With Hypercapnia ([facility]) Fever Leukocytosis Cavitary Pneumonia Traumatic Inuries: 1. [...] 1448 Peripherally Inserted (PICC) Left Arm 5.0 Bulgarian 4 days Drain GI Feed 06/02/19 1446 [...] questions or concerns Mon-Sun 6a-5p please page [phone]. After 5pm and on Weekends and Holidays, please page [phone]. SIGNATURE: Reginaldo Johns MD PATIENT NAME: Rhoda [...] Surgery June 14, 2019 1:15 PM Normal [facility] Phosphorus Bloodon 9 Phosphate [Mass/Vol] 2.0 mg/dL Low 2.5-4.9 [facility] Comment on above: Performed By: #### P T #### [facility] [address] [place] [address] Basic Panelon 06-13-2019 Creatinine [Mass/Vol] 0.35 mg/dL Low 0.67-1.17 [facility] Comment on above: Performed By: #### P T #### [address] [address] Anion gap [Moles/Vol] 12 mmol/L Normal 8-16 [facility] Comment on above: Performed By: #### P T #### [address] [address] CO2 [Moles/Vol] 31 mmol/L Normal 21-32 [facility] Comment on above: Performed By: #### P T #### [address] [address] Urea nitrogen [Mass/Vol] 11 mg/dL Normal 7-18 [facility] Comment on above: Performed By: #### P T #### [address] [address] Calcium [Mass/Vol] 8.9 mg/dL Normal 8.5-10.1 [facility] Comment on above: Performed By: #### P T #### [facility] [address] [place], [place] [address] Glucose [Mass/Vol] 184 mg/dL High 70-99 [facility] Comment on above: Performed By: #### P T #### [address] [address] Chloride [Moles/Vol] 94 mmol/L Low 98-107 [facility] Comment on above: Performed By: #### P T #### [facility] [address] [place], [place] [address] Potassium [Moles/Vol] 3.5 mmol/L Normal 3.5-5.1 [facility] Comment on above: Performed By: #### P T #### [facility] [address] [place], [place] [address] Sodium [Moles/Vol] 133 mmol/L Low 136-145 [facility] Comment on above: Performed By: #### P T #### [facility] [address] [place], [place] [address] Blood Gas Arterialon 06-13-2 019 FIO2 40 % Normal [facility] Comment on above: Performed By: #### P T #### [facility] [address] [place] [address] Base Excess 7.2 mmol/L High -3.0-3.0 [facility] Comment on above: Performed By: #### P T #### [facility] [address] [place] [address] HCO3 (Bld) [Moles/Vol] 30.9 mmol/L High 21.0-28.0 [facility] Comment on above: Performed By: #### P T #### [facility] [address] [place], [place] [address] O2% Sat Arterial 99.1 % Normal 96.0-100.0 [facility] Comment on above: Performed By: #### P T #### [facility] [address] [place], [place] [address] PCO2 Arterial 38.6 mm Hg Normal 35.0-45.0 [facility] Comment on above: Performed By: #### P T #### [facility] [address] [place], [place] [address] pH Arterial 7.509 High 7.350-7.450 [facility] Comment on above: Performed By: #### P T #### [facility] [address] [place], [place] [address] PO2 Arterial 127.0 mm Hg High 83.0-108.0 [facility] Comment on above: Performed By: #### P T #### [place] [address] CONSULT PROGon 06-13-2019 CONSULT PROG HNO ID: [id number] Author: Shama Mathew (Manager Beverage) Service: Pharmacy Author Type: Pharmacist Type: Consult [...] care. Please contact pharmacy if questions. Normal [facility] HIV Screenon 06-13-2019 HIV Screen Nonreactive Normal Nonreactive [facility] Comment on above: Performed By: #### P T #### [place] [address] Hemogram/Diffon 06-13-2019 Abs Immature Grans 0.47 thou/cmm High 0.00-0.05 [facility] Comment on above: Performed By: #### P T #### [place] [address] Abs Neut (ANC) 25.40 thou/cmm High 1.78-5.38 [facility] Comment on above: Performed By: #### P T #### [place] [address] Abs. Baso 0.15 thou/cmm High 0.01-0.08 [facility] Comment on above: Result Comment: Smea r scanned; tech agrees with automated differential Performed By: #### P T #### [place] [address] Abs. [place] 1.52 thou/cmm High 0.30-0.82 [facility] Comment on above: Performed By: #### P T #### [facility] [address] [place], [place] [address] Basophils/100 WBC (Bld) 0.5 % Normal [facility] Comment on above: Performed By: #### P T #### [facility] [address] [place], [place] [address] Eosinophils (Bld) [#/Vol] 0.50 thou/cmm Normal 0.04-0.54 [facility] Comment on above: Performed By: #### P T #### [facility] [address] [place], [place] [address] Eosinophils/100 WBC (Bld) 1.7 % Normal [facility] Comment on above: Performed By: #### P T #### [facility] [address] [place], [place] [address] Immature Grans 1.60 % Normal [facility] Comment on above: Performed By: #### P T #### [facility] [address] [place], [place] [address] Lymphocytes (Bld) [#/Vol] 1.17 thou/cmm Normal 0.84-2.85 [facility] Comment on above: Performed By: #### P T #### [facility] [address] [place], [place] [address] Lymphocytes/100 WBC (Bld) 4.0 % Normal [facility] Comment on above: Performed By: #### P T #### [facility] [address] [place], [place] [address] Monocytes/100 WBC (Bld) 5.2 % Normal [facility] Comment on above: Performed By: #### P T #### [facility] [address] [place], [place] [address] Seg Neutrophil 87.0 % Normal [facility] Comment on above: Performed By: #### P T #### [facility] [address] [place], [place] [address] Erythrocyte distribution width (RBC) [Ratio] 14.2 % Normal 11.6-14.4 [facility] Comment on above: Performed By: #### P T #### [facility] [address] [place] [address] Hematocrit (Bld) [Volume fraction] 38.5 % Low 40.1-51.0 [facility] Comment on above: Performed By: #### P T #### [facility] [address] [place] [address] Hemoglobin (Bld) [Mass/Vol] 12.5 g/dL Low 13.7-17.5 [facility] Comment on above: Performed By: #### P T #### [facility] [address] [place] [address] MCH (RBC) [Entitic mass] 32.4 pg High 25.7-32.2 [facility] Comment on above: Performed By: #### P T #### [facility] [address] [place] [address] MCHC (RBC) [Mass/Vol] 32.5 % Normal 32.3-36.5 [facility] Comment on above: Performed By: #### P T #### [place] [address] MCV (RBC) [Entitic vol] 99.7 fL High 83.2-95.6 [facility] Comment on above: Performed By: #### P T #### [place] [address] Platelet mean volume (Bld) [Entitic vol] 8.9 fL Normal 8.7-12.0 [facility] Comment on above: Performed By: #### P T #### [facility] [address] [place] [address] Platelets (Bld) [#/Vol] 1020 thou/cmm Critically high 141-365 [facility] Comment on above: Performed By: #### P T #### [place] [address] RBC (Bld) [#/Vol] 3.86 mil/cmm Low 4.63-6.08 [facility] Comment on above: Performed By: #### P T #### [place] [address] RDW SD 52.4 fl High 36.1-45.8 [facility] Comment on above: Performed By: #### P T #### [facility] [address] [place], [place] [address] WBC (Bld) [#/Vol] 29.19 thou/cmm Critically high 4.23-9.07 [facility] Comment on above: Performed By: #### P T #### [facility] [address] [place], [place] [address] Ionized Calciumon 06-13-2019 Ionized Ca,PH7.4 4.69 mg/dL Normal 4.61-5.17 [facility] Comment on above: Performed By: #### P T #### [address] [address] pH (Bld) 7.426 [pH] Normal 7.320-7.430 [facility] Comment on above: Performed By: #### P T #### [address] [address] Ionized Calcium 4.63 mg/dL Normal 4.61-5.17 [facility] Comment on above: Performed By: #### P T #### [address] [address] Magnesium Bloodon 06-13-2019 Magnesium [Mass/Vol] 1.8 mg/dL Normal 1.6-2.6 [facility] Comment on above: Performed By: #### P T #### [address] [address] NURSING PROGon 06-13-2019 NURSING PROG HNO ID: [id number] Author: Halina (Rn) GILBERTO Carroll Service: Nursing Author Type: Registered Nurse Type: Nursing Progress Note Filed: 06/13/2019 2:28 PM Note Text: Behavioral Restraints Summary and Debriefing Note PATIENT NAME: Rhoda Poon Date in Restraints 06-13-19 Time in Restraints 1345 Staff Member(s) present: Halina Carroll RN, Dr. Beltarn Violent Restraints-Clinical Justification: Documentation required with Every [...] Time of debriefin Halina Carroll RN 06/13/2019 Normal [facility] NURSING PROG HNO ID: [id number] Author: Mynor (Rn) GILBERTO Hernandez Service: ? Author Type: Registered Nurse Type: Nursing Progress Note Filed: 06/13/2019 9:16 AM Note Text: Nursing Progress: Topic: RESTRAINT NON-VIOLENT PATIENT NAME: Rhoda Poon PATIENT LOCATION: [id number] [address] 0* The patient demonstrates Attempting to Remove [...] 2019 TIME: 8:00 AM Mynor Hernandez RN [facility] NURSING PROG HNO ID: [id number] Author: Kasandra Rizo RN Service: Nursing Author Type: Registered Nurse Type: Nursing Progress Note Filed: 06/12/2019 10:32 PM Note Text: Nursing Progress: Topic: RESTRAINT NON-VIOLENT PATIENT NAME: Rhoda Poon PATIENT LOCATION: [place] [address]/[place] [address]* The patient demonstrates Attempting to Remove [...] 2019 TIME: 10:32 PM Kasandra Rizo RN [facility] PROGRESSon 06-13-2019 PROGRESS HNO ID: [id number] Author: Lilliana Beltran Service: Trauma Author Type: Physician Type: Progress Notes Filed: 06/13/2019 1:43 PM Note Text: SICU Addendum: Passed SBT, ABG without hypercarbia or hypoxemia, NIF -31, (+) cuff leak Tolerated extubation well, no stridor or hypoxia or arrhythmias Lilliana Beltran MD 06/13/19 1:42 PM [facility] PROGRESS HNO ID: [id number] Author: Kat Snyder Service: Infectious Disease Author Type: Physician Type: Progress Notes Filed: 06/13/2019 9:13 AM Note Text: Kat Snyder MD, MS, FACP, [facility] Division of Infectious Diseses [address] [place] [address] Office: [phone] INFECTIOUS DISEASE CONSULT PROGRESS NOTE SERVICE DATE: [...] QID - propofol infusion (DIPRIVAN) 0-30 mcg/kg/min (Mckenna) INTRAVENOUS CONTINUOUS - haloperidol lactate 5 mg injection (HALDOL) 5 mg INTRAMUSCULAR q 6 H PRN - pill pleater hand (patient-specific) 1 Each Miscell. (Med.Supl.;Non-Drugs) PRN - [...] quantiferon P Impression/Recommendati ons DTs (delirium tremens) ([facility]) POA: Yes Assessment AND Plan: Likely contributing to fevers. SAH (subarachnoid hemorrhage) ([facility]) POA: Yes Assessment AND Plan: Complicates management, can also be a source of fever. Closed fracture of vault of skull ([facility]) POA: Yes Assessment AND Plan: Per neuro. Acute respiratory failure with hypercapnia ([facility]) POA: No Assessment AND Plan: Vent weaning [...] weekend SIGNATURE: Kat Snyder MD, MS, FACP, FIDSA PATIENT NAME: Rhoda Poon DATE: June 13, 2019 TIME: 9:03 AM PAGER/CONTACT #: [phone] [facility] PROGRESS HNO ID: [id number] Author: Lilliana Beltran Service: Critical Care Author Type: Physician Type: Progress Notes Filed: 06/13/2019 12:14 PM Note Text: INPATIENT SICU PROGRESS NOTE SICU Service Pager: For questions or concerns Mon-Sun 6a-5p please page [phone]. After 5pm and on Weekends and Holidays, please page [phone]. Subjective Subjective: Pt pulled ET tube out [...] QID - propofol infusion (DIPRIVAN) 0-30 mcg/kg/min (Mckenna) INTRAVENOUS CONTINUOUS - haloperidol lactate 5 mg injection (HALDOL) 5 mg INTRAMUSCULAR q 6 H PRN - pill pleater hand (patient-specific) 1 Each Miscell. (Med.Supl.;Non-Drugs) PRN - [...] ?C (99 ?F) Date 06/12/19 07 - 06/13/1965806/13/19 07 - 06/14/19 0659 Shift 3924-3580 1392-3604 7650-9725 24 Hour Total 4962-4990 8954-0822 1253-0331 24 Hour Total INTAKE IV 437.4 413 [...] Shift Total 756.4 977 1733.4 OUTPUT Urine 084 240 4825 Void (ml) 631 218 4065 Output ( External Collection Device 06/04/191999) 340 340 # of BMs Number of BMs 3 x 3 x Shift Total 637 174 1868 Weight (kg) 77.3 77.3 77.3 77.3 77.3 [...] Abdomen Subdural Hematoma (Hcc) Dts (Delirium Tremens) ([facility]) Sah (Subarachnoid Hemorrhage) ([facility]) Closed Fracture of One Rib of Left Side Closed Fracture of Vault of Skull (Hcc) Aphasia Malnutrition of Mild Degree (Hcc) Acute Respiratory Failure With Hypercapnia ([facility]) This is a 49 year old male [...] 1448 Peripherally Inserted (PICC) Left Arm 5.0 Bulgarian (Active) Peripheral 06/09/19 0700 Assessment Short Right [...] questions or concerns Mon-Sun 6a-5p please page [phone]. After 5pm and on Weekends and Holidays, please page [phone]. Critical Care Attestation Gradual improvement in neurologic [...] With Hypercapnia (Hcc) Fever Leukocytosis Cavitary Pneumonia I provided 32 [...] June 13, 2019 TIME: 12:02 PM Normal [facility] PROGRESS HNO ID: [id number] Author: Lakesha Wilkes Service: Trauma Author Type: Physician Type: Progress Notes Filed: 06/13/2019 10:28 AM Note Text: Trauma Progress Note SERVICE DATE: 06/13/2019 Trauma Service Pager: For questions or concerns Mon-Fri 6a-5p please page [phone]. After 5pm and on Weekends and Holidays, please page [phone] if in ICU or [phone] if on RNF. SUBJECTIVE: Pt pulled ET [...] 25.92 kg/m? O2 Therapy: Ventilator IANDO: Date 06/12/19 07 - 06/13/1965806/13/196[address] - 06/14/19 0659 Shift 5455-1274 0680-9784 5090-3129 24 Hour Total 0994-8637 3746-4155 9633-0029 24 Hour Total INTAKE IV 437.4 413 [...] Shift Total 756.4 977 1733.4 OUTPUT Urine 268 953 7768 Void (ml) 541 640 7463 Output ( External Collection Device 06/04/191999) 340 340 # of BMs Number of BMs 3 x 3 x Shift Total 049 642 9608 Weight (kg) 77.3 77.3 77.3 77.3 77.3 [...] QID - propofol infusion (DIPRIVAN) 0-30 mcg/kg/min (Mckenna) INTRAVENOUS CONTINUOUS - haloperidol lactate 5 mg injection (HALDOL) 5 mg INTRAMUSCULAR q 6 H PRN - pill pleater hand (patient-specific) 1 Each Miscell. (Med.Supl.;Non-Drugs) PRN - [...] Noted - Acute respiratory failure with hypercapnia ([facility]) 06/07/2019 - Malnutrition of mild degree ([facility]) 06/05/2019 - DTs (delirium tremens) ([facility]) 06/02/2019 - SAH (subarachnoid hemorrhage) ([facility]) 06/02/2019 - Closed fracture of one rib of left side 06/02/2019 - Closed fracture of vault of skull ([facility]) 06/02/2019 - Aphasia 06/02/2019 - Subdural hematoma ([facility]) 06/01/2019 - Bipolar affective disorder ([facility]) 12/21/2012 Overview Note: Diagnosed in ~1989 This [...] questions or concerns Mon-Fri 6a-5p please page [phone]. After 5pm and on Weekends and Holidays, please page [phone] if in ICU or [phone] if on [...] MD Date: 06/13/2019 Time: 10:25 AM [facility] Phosphorus Bloodon 9 Phosphate [Mass/Vol] 2.5 mg/dL Normal 2.5-4.9 [facility] Comment on above: Performed By: #### P T #### [place] [address] THERAPY NTon 06-13-2019 THERAPY NT HNO ID: [id number] Author: Stephanie (Zinc Etcher) MANUEL Dai/PROBATE LAWYER Service: Speech/Swallow Author Type: Speech Language Pathologist Type: Therapy (PT/OT/Speech/Resp) Filed: 06/13/2019 3:12 PM Note Text: Speech Therapy Clinical Swallow Evaluation SERVICE DATE: 06/13/2019 SERVICE TIME: 1430 to 1450 ROOM: [id number] Nursing Recommendations: See swallow guide posted in [...] oropharyngeal phase Interventions Provided: Clinical Swallow Evaluation (81948) $ Clinical Swallow Evaluation (92651) Billed Units: 1 unit Total Treatment Time [...] for this therapy evaluation/treatment. SIGNATURE: Stephanie Dai CCC-PROBATE LAWYER PATIENT NAME: Rhoda Poon DATE: June 13, 2019 TIME: 3:02 PM [facility] Basic Panelon 06-12-2019 Creatinine [Mass/Vol] 0.35 mg/dL Low 0.67-1.17 [facility] Comment on above: Performed By: #### P 8 ####[facility] [place], [place] [address] Anion gap [Moles/Vol] 11 mmol/L Normal 8-16 [facility] Comment on above: Performed By: #### P 8 ####[address] [address] Calcium [Mass/Vol] 9.1 mg/dL Normal 8.5-10.1 [facility] Comment on above: Performed By: #### P 8 ####[address] [address] CO2 [Moles/Vol] 26 mmol/L Normal 21-32 [facility] Comment on above: Performed By: #### P 8 ####[address] [address] Glucose [Mass/Vol] 129 mg/dL High 70-99 [facility] Comment on above: Performed By: #### P 8 ####[address] [address] Urea nitrogen [Mass/Vol] 12 mg/dL Normal 7-18 [facility] Comment on above: Performed By: #### P 8 ####[address] [address] Chloride [Moles/Vol] 101 mmol/L Normal 98-107 [facility] Comment on above: Performed By: #### P 8 ####[address] [address] Potassium [Moles/Vol] 4.0 mmol/L Normal 3.5-5.1 [facility] Comment on above: Performed By: #### P 8 ####[facility] [place], [place] [address] Sodium [Moles/Vol] 134 mmol/L Low 136-145 [facility] Comment on above: Performed By: #### P 8 ####[address] [address] CASE MANAGEMon 06-12-2019 CASE MANAGEM HNO ID: [id number] Author: Kaitlin Varghese (Sw) Service: Care Management Author Type: Steel Pan Form Placing Supervisor Type: Care Mgt Progress Note Filed: 06/12/2019 2:30 PM Note Text: CARE MANAGEMENT PROGRESS NOTE SERVICE DATE: 06/12/2019 SERVICE TIME: 2:20 PM LOS: 11 days NOK and self pay Phone call with pt friend, Wolfgang, who reports pt does not have children and both parents are . Friend states he reached out to brother in [facility] last week but has not heard back (they have been estranged for 15 years). Ethics consulted and involved. Phone call with ROCKETHOME who reports leaving message with pt friend on Sunday (06/11); advised that SW just spoke with friend and he has information re: pt income and job status. SIGNATURE: LUZ MARIA Rodriguez PATIENT NAME: Rhoda Poon DATE: June 12, 2019 TIME: 2:20 PM PAGER/CONTACT #: Franc[facility] CASE MANAGEM HNO ID: [id number] Author: Stephanie Cruz RN Service: Care Management Author Type: Registered Nurse Type: Care Mgt Progress Note Filed: 06/12/2019 10:54 AM Note Text: CARE MANAGEMENT PROGRESS NOTE SERVICE DATE: 06/12/2019 SERVICE TIME: 10:49 AM LOS: 11 days Needs Prior to Discharge: To Be Determined Notes reviewed in [facility]. Patient remains on Vent. No family present. Spoke with RN. Patient following commands intermitently. Hopeful to wean patient from vent. Patient has no POA. Has sig. other Sahil [phone] who has been in to see patient a couple of time. No POA. SW asked to follow as may need guardian. Referral for [facility] placed as patient will likely need placement at discharge. CM/SW to continue to follow for needs. SIGNATURE: Stephanie Cruz RN PATIENT NAME: Rhoda Poon DATE: June 12, 2019 TIME: 10:49 AM PAGER/CONTACT #: [phone] [facility] CONSULTon 06-12-2019 CONSULT HNO ID: [id number] Author: Kat Snyder Service: Infectious Disease Author Type: Physician Type: Consults Filed: 06/13/2019 8:05 AM Note Text: [facility] - Consultation PATIENT NAME: RHODA POON CSN: [id number] DATE OF : 1970 SEX/AGE: M/49 PATIENT TYPE: I HOSP SVC: ICU LOCATION: [id number] DATE OF SERVICE: 06/12/2019 TIME OF SERVICE: 11:05 AM REASON FOR CONSULTATION: Fever,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 [address] [place] [address] MCV (RBC) [Entitic vol] 99.5 fL High 83.2-95.6 [facility] Comment on above: Performed By: #### E RTRP #### [facility] [address] [place] [address] Platelet mean volume (Bld) [Entitic vol] 9.0 fL Normal 8.7-12.0 [facility] Comment on above: Performed By: #### E RTRP #### [facility] [address] [place] [address] Platelets (Bld) [#/Vol] 778 thou/cmm High 141-365 [facility] Comment on above: Performed By: #### E RTRP #### [facility] [address] [place] [address] RBC (Bld) [#/Vol] 3.94 mil/cmm Low 4.63-6.08 [facility] Comment on above: Performed By: #### E RTRP #### [facility] [address] [place] [address] RDW SD 53.5 fl High 36.1-45.8 [facility] Comment on above: Performed By: #### E RTRP #### [facility] [address] [place], [place] [address] WBC (Bld) [#/Vol] 18.65 thou/cmm High 4.23-9.07 [facility] Comment on above: Performed By: #### E RTRP #### [facility] [address] [place], [place] [address] Ionized Calciumon 06-11-2019 Ionized Ca,PH7.4 4.75 mg/dL Normal 4.61-5.17 [facility] Comment on above: Performed By: #### E RTRP #### [facility] [address] [place], [place] [address] pH (Bld) 7.423 [pH] Normal 7.320-7.430 [facility] Comment on above: Performed By: #### E RTRP #### [facility] [address] [place], [place] [address] Ionized Calcium 4.70 mg/dL Normal 4.61-5.17 [facility] Comment on above: Performed By: #### E RTRP #### [facility] [address] [place], [place] [address] Magnesium Bloodon 06-11-2019 Magnesium [Mass/Vol] 2.1 mg/dL Normal 1.6-2.6 [facility] Comment on above: Performed By: #### M AG ####[facility] [place], [place] [address] NURSING PROGon 06-11-2019 NURSING PROG HNO ID: [id number] Author: Gerson (Rn) GILBERTO Jeffrey Service: Nursing Author Type: Registered Nurse Type: Nursing Progress Note Filed: 06/11/2019 2:34 PM Note Text: Nursing Progress: Topic: RESTRAINT NON-VIOLENT PATIENT NAME: Rhoda Poon PATIENT LOCATION: [id number] [id number] 0* The patient demonstrates Attempting to Remove [...] TIME: 2:33 PM Gerson Jeffrey RN Normal [facility] PROGRESSon 06-11-2019 PROGRESS HNO ID: [id number] Author: Lakesha Wilkes Service: General Surgery Author Type: Physician Type: Progress Notes Filed: 06/11/2019 11:03 AM Note Text: Trauma Progress Note SERVICE DATE: 06/11/2019 Trauma Service Pager: For questions or concerns Mon-Sun 6a-5p please page [phone]. After 5pm and on Weekends and Holidays, please page [phone] if in ICU or [phone] if on RNF. SUBJECTIVE: No acute events. [...] 06/10/[address] - 06/11/1965806/11/196[address] - 06/12/19 0659 Shift 4603-0960 7531-2337 6140-5159 24 Hour Total 5656-3067 5777-0820 1593-9082 24 Hour Total INTAKE IV 335.7 89 247 671.7 NS 0.9% 71 54 30 155 Zosyn IV 100 100 Propofol IV 164.7 35 117 316.7 Levetiracetam IV 100 100 Irrigants 100 130 30 260 Irrigant/Flush Amount In (GI Feed 06/02/19 1446 Gastric Right Naris 12 Fr) 100 130 30 260 Gastric Tube 379 572 766 9713 Tube Feed Intake (I/O) (GI Feed 06/02/19 1446 Gastric Right Naris 12 Fr) 379 692 516 5751 Shift Total 814.7 818 132 3211.7 OUTPUT Urine 1300 877 199 2311 Output ( External Collection Device 06/04/191999) 1300 181 599 1334 Shift Total 1300 807 655 2443 Weight (kg) 80.3 80.3 80.3 80.3 80.3 [...] QID - propofol infusion (DIPRIVAN) 0-40 mcg/kg/min (Mckenna) INTRAVENOUS CONTINUOUS - metoprolol tartrate (short acting) 25 mg tab(s) (LOPRESSOR) 25 mg ORAL QID - haloperidol lactate 5 mg injection (HALDOL) 5 mg INTRAMUSCULAR q 6 H PRN - pill pleater hand (patient-specific) 1 Each Miscell. (Med.Supl.;Non-Drugs) PRN - [...] ORAL TID Labs: Recent Labs 06/11/19 0350 06/10/19 0427 06/10/19 0423 06/09/19 0315 NA 136 -- 135* < > [...] Noted - Acute respiratory failure with hypercapnia ([facility]) 06/07/2019 - Malnutrition of mild degree ([facility]) 06/05/2019 - DTs (delirium tremens) ([facility]) 06/02/2019 - SAH (subarachnoid hemorrhage) ([facility]) 06/02/2019 - Closed fracture of one rib of left side 06/02/2019 - Closed fracture of vault of skull ([facility]) 06/02/2019 - Aphasia 06/02/2019 - Subdural hematoma ([facility]) 06/01/2019 - Bipolar affective disorder ([facility]) 12/21/2012 Overview Note: Diagnosed in ~1989 This [...] questions or concerns Mon-Fri 6a-5p please page [phone]. After 5pm and on Weekends and Holidays, [...] MD Date: 06/11/2019 Time: 11:02 AM Normal [facility] PROGRESS HNO ID: [id number] Author: Lilliana Beltran Service: General Surgery Author Type: Physician Type: Progress Notes Filed: 06/11/2019 6:06 PM Note Text: INPATIENT SICU PROGRESS NOTE SICU Service Pager: For questions or concerns Sun-Sun- please page [phone]. After 5pm and on Weekends and Holidays, please page [phone]. Subjective Subjective: NAEON. Improved agitation. Scheduled ativan. [...] QID - propofol infusion (DIPRIVAN) 0-40 mcg/kg/min (Mckenna) INTRAVENOUS CONTINUOUS - metoprolol tartrate (short acting) 25 mg tab(s) (LOPRESSOR) 25 mg ORAL QID - haloperidol lactate 5 mg injection (HALDOL) 5 mg INTRAMUSCULAR q 6 H PRN - pill pleater hand (patient-specific) 1 Each Miscell. (Med.Supl.;Non-Drugs) PRN - [...] (96.8 ?F), Max:37.8 ?C (100 ?F) Date 06/10/19 07 - 06/11/19 0659 06/11/19 07 - 06/12/19 0659 Shift 2925-1831 8693-5538 9310-0069 24 Hour Total 3618-3692 4958-1791 2954-8660 24 Hour Total INTAKE IV 335.7 89 247 671.7 NS 0.9% 71 54 30 155 Zosyn IV 100 100 Propofol IV 164.7 35 117 316.7 Levetiracetam IV 100 100 Irrigants 100 130 30 260 Irrigant/Flush Amount In (GI Feed 06/02/19 1446 Gastric Right Naris 12 Fr) 100 130 30 260 Gastric Tube 379 508 878 7324 Tube Feed Intake (I/O) (GI Feed 06/02/19 1446 Gastric Right Naris 12 Fr) 379 883 898 9561 Shift Total 814.7 524 449 8297.7 OUTPUT Urine 1300 085 741 3726 Output ( External Collection Device 06/04/191999) 1300 850 964 9598 Shift Total 1300 079 586 7975 Weight (kg) 80.3 80.3 80.3 80.3 80.3 80.3 80.3 80.3 PHYSICAL EXAM: GENERAL: sedated SKIN: Skin color, texture, turgor normal. No rashes or lesions. LUNGS: ventilated CARDIAC: Regular rate and rhythm as above, ABDOMEN: soft, non-distended EXTREMITIES: restrained, no gross deformity NEURO: sedated DATA: Diagnostic tests reviewed for today's visit: Recent Labs 06/10/197 06/09/19 0315 PH 7.512* 7.506* PCO2 32.0* 34.8* PO2 71.0* 68.2* BE 3.3* 4.6* Recent Labs 06/11/19 0350 06/10/19 0423 06/09/19 0331 CREAT 0.44* 0.35* 0.36* BUN 12 [...] Abdomen Subdural Hematoma (Hcc) Dts (Delirium Tremens) ([facility]) Sah (Subarachnoid Hemorrhage) ([facility]) Closed Fracture of One Rib of Left Side Closed Fracture of Vault of Skull (Hcc) Aphasia Malnutrition of Mild Degree (Hcc) Acute Respiratory Failure With Hypercapnia ([facility]) This is a 49 year old male [...] if unable to wean ventilator. Recent Labs 06/10/197 06/09/19 031 PH 7.512* 7.506* PCO2 32.0* 34.8* PO2 [...] 1448 Peripherally Inserted (PICC) Left Arm 5.0 Bulgarian (Active) Peripheral 06/07/19 0812 Short Left Hand [...] questions or concerns Mon-Sun 6a-5p please page [phone]. After 5pm and on Weekends and Holidays, please page [phone]. Critical Care Attestation Followed commands today during [...] Degree (Hcc) Acute Respiratory Failure With Hypercapnia ([facility]) I provided 33 minutes of critical care [...] June 11, 2019 TIME: 6:03 PM Normal [facility] Phosphorus Bloodon 9 Phosphate [Mass/Vol] 3.0 mg/dL Normal 2.5-4.9 [facility] Comment on above: Performed By: #### P HOS ####[facility] [place], [place] [address] Basic Panelon 06-10-2019 Creatinine [Mass/Vol] 0.35 mg/dL Low 0.67-1.17 [facility] Comment on above: Performed By: #### E RTRP #### [facility] [address] [place], [place] [address] Urea nitrogen [Mass/Vol] 8 mg/dL Normal 7-18 [facility] Comment on above: Performed By: #### E RTRP #### [facility] [address] [place], [place] [address] Anion gap [Moles/Vol] 12 mmol/L Normal 8-16 [facility] Comment on above: Performed By: #### E RTRP #### [facility] [address] [place], [place] [address] Calcium [Mass/Vol] 9.1 mg/dL Normal 8.5-10.1 [facility] Comment on above: Performed By: #### E RTRP #### [address] [address] CO2 [Moles/Vol] 25 mmol/L Normal 21-32 [facility] Comment on above: Performed By: #### E RTRP #### [address] [address] Glucose [Mass/Vol] 146 mg/dL High 70-99 [facility] Comment on above: Performed By: #### E RTRP #### [facility] [address] [place], [place] [address] Chloride [Moles/Vol] 101 mmol/L Normal 98-107 [facility] Comment on above: Performed By: #### E RTRP #### [facility] [address] [place], [place] [address] Potassium [Moles/Vol] 3.3 mmol/L Low 3.5-5.1 [facility] Comment on above: Performed By: #### E RTRP #### [facility] [address] [place] [address] Sodium [Moles/Vol] 135 mmol/L Low 136-145 [facility] Comment on above: Performed By: #### E RTRP #### [facility] [address] [place] [address] Bld Gas Art and Ion Caon Base Excess 3.3 mmol/L High -3.0-3.0 [facility] Comment on above: Performed By: #### A MY #### [facility] [address] [place] [address] HCO3 (Bld) [Moles/Vol] 25.4 mmol/L Normal 21.0-28.0 [facility] Comment on above: Performed By: #### A MY #### [facility] [address] [place] [address] Ionized Ca,PH7.4 5.14 mg/dL Normal 4.61-5.17 [facility] Comment on above: Performed By: #### A MY #### [facility] [address] [place] [address] O2% Sat Arterial 95.1 % Low 96.0-100.0 [facility] Comment on above: Performed By: #### A MY #### [facility] [address] [place] [address] PCO2 Arterial 32.0 mm Hg Low 35.0-45.0 [facility] Comment on above: Performed By: #### A MY #### [facility] [address] [place] [address] pH Arterial 7.512 High 7.350-7.450 [facility] Comment on above: Performed By: #### A MY #### [facility] [address] [place] [address] PO2 Arterial 71.0 mm Hg Low 83.0-108.0 [facility] Comment on above: Performed By: #### A MY #### [place] [address] FIO2 40 % Normal [facility] Comment on above: Performed By: #### A MY #### [facility] [address] [place] [address] Ionized Calcium 4.85 mg/dL Normal 4.61-5.17 [facility] Comment on above: Performed By: #### A MY #### [facility] [address] [place] [address] Cult Bloodon 06-10-2019 Cult Blood Test performed at [facility] No growth Normal [facility] Comment on above: Performed By: #### C _BLO ####[facility] [place] [address] Cult Blood Test performed at [facility] No growth Normal [facility] Comment on above: Performed By: #### C _BLO ####[facility] [place] [address] Hemogram/Diffon 06-10-2019 Abs Immature Grans 0.80 thou/cmm High 0.00-0.05 [facility] Comment on above: Performed By: #### G FR #### [facility] [address] [place] [address] Abs Neut (ANC) 15.14 thou/cmm High 1.78-5.38 [facility] Comment on above: Performed By: #### G FR #### [facility] [address] [place] [address] Abs. Baso 0.18 thou/cmm High 0.01-0.08 [facility] Comment on above: Performed By: #### G FR #### [facility] [address] [place] [address] Abs. [place] 2.01 thou/cmm High 0.30-0.82 [facility] Comment on above: Performed By: #### G FR #### [facility] [address] [place] [address] Basophils/100 WBC (Bld) 0.9 % Normal [facility] Comment on above: Performed By: #### G FR #### [place] [address] Eosinophils (Bld) [#/Vol] 0.28 thou/cmm Normal 0.04-0.54 [facility] Comment on above: Performed By: #### G FR #### [facility] [address] [place], [place] [address] Eosinophils/100 WBC (Bld) 1.4 % Normal [facility] Comment on above: Performed By: #### G FR #### [facility] [address] [place], [place] [address] Immature Grans 4.00 % Normal [facility] Comment on above: Performed By: #### G FR #### [facility] [address] [place], [place] [address] Lymphocytes (Bld) [#/Vol] 1.51 thou/cmm Normal 0.84-2.85 [facility] Comment on above: Performed By: #### G FR #### [facility] [address] [place], [place] [address] Lymphocytes/100 WBC (Bld) 7.6 % Normal [facility] Comment on above: Performed By: #### G FR #### [facility] [address] [place], [place] [address] Monocytes/100 WBC (Bld) 10.1 % Normal [facility] Comment on above: Performed By: #### G FR #### [facility] [address] [place], [place] [address] Seg Neutrophil 76.0 % Normal [facility] Comment on above: Performed By: #### G FR #### [facility] [address] [place], [place] [address] Erythrocyte distribution width (RBC) [Ratio] 14.4 % Normal 11.6-14.4 [facility] Comment on above: Performed By: #### G FR #### [facility] [address] [place], [place] [address] Hematocrit (Bld) [Volume fraction] 41.4 % Normal 40.1-51.0 [facility] Comment on above: Performed By: #### G FR #### [facility] [address] [place], [place] [address] Hemoglobin (Bld) [Mass/Vol] 13.7 g/dL Normal 13.7-17.5 [facility] Comment on above: Performed By: #### G FR #### [facility] [address] [place], [place] [address] MCH (RBC) [Entitic mass] 32.0 pg Normal 25.7-32.2 [facility] Comment on above: Performed By: #### G FR #### [facility] [address] [place] [address] MCHC (RBC) [Mass/Vol] 33.1 % Normal 32.3-36.5 [facility] Comment on above: Performed By: #### G FR #### [facility] [address] [place] [address] MCV (RBC) [Entitic vol] 96.7 fL High 83.2-95.6 [facility] Comment on above: Performed By: #### G FR #### [facility] [address] [place] [address] Platelet mean volume (Bld) [Entitic vol] 9.0 fL Normal 8.7-12.0 [facility] Comment on above: Performed By: #### G FR #### [facility] [address] [place] [address] Platelets (Bld) [#/Vol] 706 thou/cmm High 141-365 [facility] Comment on above: Performed By: #### G FR #### [place] [address] RBC (Bld) [#/Vol] 4.28 mil/cmm Low 4.63-6.08 [facility] Comment on above: Performed By: #### G FR #### [facility] [address] [place] [address] RDW SD 51.6 fl High 36.1-45.8 [facility] Comment on above: Performed By: #### G FR #### [facility] [address] [place], [place] [address] WBC (Bld) [#/Vol] 19.92 thou/cmm High 4.23-9.07 [facility] Comment on above: Performed By: #### G FR #### [facility] [address] [place], [place] [address] Magnesium Bloodon 06-10-2019 Magnesium [Mass/Vol] 2.1 mg/dL Normal 1.6-2.6 [facility] Comment on above: Performed By: #### E RTRP #### [facility] [address] [place], [place] [address] NURSING PROGon 06-10-2019 NURSING PROG HNO ID: [id number] Author: Eulalia LucasRn) GILBERTO Tomlinson Service: Nursing Author Type: Registered Nurse Type: Nursing Progress Note Filed: 06/10/2019 10:58 PM Note Text: Nursing Progress: Topic: RESTRAINT NON-VIOLENT PATIENT NAME: Rhoda Poon PATIENT LOCATION: [place] [address]/[place] [address]* The patient demonstrates Attempting to Remove [...] 2019 TIME: 10:58 PM Eulalia Tomlinson RN [facility] NURSING PROG HNO ID: [id number] Author: Gerson LucasRnKim Jeffrey RN Service: Nursing Author Type: Registered Nurse Type: Nursing Progress Note Filed: 06/10/2019 9:15 AM Note Text: Nursing Progress: Topic: RESTRAINT NON-VIOLENT PATIENT NAME: Rhoda Poon PATIENT LOCATION: [place] [address]/[place] [address]* The patient demonstrates Attempting to Remove [...] 2019 TIME: 9:14 AM Gerson Jeffrey RN [facility] NUTRITIONon 06-10-2019 NUTRITION HNO ID: [id number] Author: Rafaela Higginbotham RD Service: Nutrition Therapy [...] 1448 Peripherally Inserted (PICC) Left Arm 5.0 Bulgarian (Active) Peripheral 06/07/19 0812 Short Left Hand 20 Gauge (Active) Peripheral 06/07/19 1225 Short Right Hand 20 Gauge (Active) Peripheral 06/09/19 0700 Assessment Short Right Forearm 20 Gauge (Active) GI Feed 06/02/19 1446 Gastric Right Naris 12 Fr (Active) External Collection Device 06/04/191999 (Active) Height: 172.7 cm (5' 7.99) Admission [...] 100 mg ORAL TID Date 06/09/19699 - 06/10/1965806/10/19699 - 06/11/1958 Shift 9204-2753 6274-7601 5978-7016 24 Hour Total 1809-8407 4214-7948 2189-4112 24 Hour Total INTAKE IV 555 859.5 [...] 2019 TIME: 10:28 AM PAGER: [phone] Normal [facility] Osmolality Serumon 9 Osmolality [Osmolality] 283 mOsm/kg Normal 276-298 [facility] Comment on above: Performed By: #### E RTRP #### [facility] [address] [place], [place] [address] Osmolality,Ur.on 06-10-2019 Osmolality (U) [Osmolality] 355 mOsm/kg Normal 250-1200 [facility] Comment on above: Performed By: #### E RTRP #### [facility] [address] [place], [place] [address] PROGRESSon 06-10-2019 PROGRESS HNO ID: [id number] Author: Ashley Alvarez (Destini) DESTINI Silver Service: Neurosurgery Author Type: Physician [employer] Type: Progress Notes Filed: 06/10/2019 2:43 PM Note Text: Notified by trauma that repeat CTH completed yesterday as pt with left hemotympanum. Per RN pt intubated on Sunday 2/2 aspiration pneumonia/airway protection. Pt continues to be [...] nonsurgical. Continue current mgt DESTINI Lobo Normal [facility] PROGRESS HNO ID: [id number] Author: Raudel (Jacquelyn) MD Mauricio Service: Trauma Author Type: Resident Type: Progress [...] questions or concerns Mon-Fri 6a-5p please page [phone]. After 5pm and on Weekends and Holidays, please page [phone] if in ICU or [phone] if on RNF. SUBJECTIVE: NAEON. Pt remains [...] O2 Therapy: Ventilator IANDO: Date 06/09/19699 - 06/10/1958 06/10/19699 - 06/11/19 0659 Shift 4260-1159 6499-1947 6054-0653 24 Hour Total 0638-7109 1606-0061 0469-6644 24 Hour Total INTAKE IV 555 859.5 [...] Labs 06/10/19 0427 06/10/19 0423 06/09/19 0331 06/09/195 NA -- 135* 132* -- K -- [...] Noted - Acute respiratory failure with hypercapnia ([facility]) 06/07/2019 - Malnutrition of mild degree ([facility]) 06/05/2019 - DTs (delirium tremens) ([facility]) 06/02/2019 - SAH (subarachnoid hemorrhage) ([facility]) 06/02/2019 - Closed fracture of one rib of left side 06/02/2019 - Closed fracture of vault of skull ([facility]) 06/02/2019 - Aphasia 06/02/2019 - Subdural hematoma ([facility]) 06/01/2019 - Bipolar affective disorder ([facility]) 12/21/2012 Overview Note: Diagnosed in ~1989 This [...] Trauma Service Pager: For questions or concerns Sun-Sun- please page [phone]. After 5pm and on Weekends and Holidays, please page [phone] if in ICU or [phone] if on RNF. SIGNATURE: Raudel Martínez MD PATIENT NAME: Rhoda Poon DATE: June 10, 2019 TIME: 10:28 AM Normal [facility] PROGRESS HNO ID: [id number] Author: Lilliana Beltran Service: Critical Care Author Type: Physician Type: Progress Notes Filed: 06/10/2019 2:58 PM Note Text: INPATIENT SICU PROGRESS NOTE SICU Service Pager: For questions or concerns Sun-Sun- please page [phone]. After 5pm and on Weekends and Holidays, please page [phone]. Subjective Subjective: NAEON. Pt remains restless overnight. [...] (96.3 ?F), Max:38.2 ?C (100.8 ?F) Date 06/09/19 07 - 06/10/19 0659 06/10/19699 - 06/11/19 0659 Shift 8813-7917 4962-4301 0063-6953 24 Hour Total 8096-2425 8414-6730 7104-5088 24 Hour Total INTAKE IV 555 859.5 [...] visit: Recent Labs 06/10/19 0427 06/09/19 0315 06/08/19 [...] Tobacco Use Disorder Personal history of alcoholism ([facility]) Depression Tremor Gerd (Gastroesophageal Reflux Disease) Bipolar Affective Disorder (Hcc) Epilepsy (Hcc) Pain of Upper Abdomen Subdural Hematoma ([facility]) Dts (Delirium Tremens) (Formerly [facility]) Sah (Subarachnoid Hemorrhage) (Formerly [facility]) Closed Fracture of One Rib of Left Side Closed Fracture of Vault of Skull ([facility]ly [facility]) Aphasia Malnutrition of Mild Degree ([facility]ly [facility]) Acute Respiratory Failure With Hypercapnia ([facility]ly [facility]) This is a 49 year old male [...] 4.6* 7.6* Respiratory/Nursing Documentation: O2 Therapy: Ventilator (06/10/19849) Invasive Ventilator Mode: Pressure Regulated Volume Control (06/10/19849) Set Ventilator Respiratory Rate (BPM): 10 (06/10/19 0850) Total Respiratory Rate (BPM): 20 (06/10/19849) Tidal Volume Set (mL): 480 (06/10/1950) Exhaled Tidal Volume (mL): 492 (06/10/1950) Minute Volume (L): 10 (06/10/19849) Peak Inspiratory Pressure (cm H2O): 11 (06/10/19849) PEEP/CPAP (cm H2O): 5 (06/10/19849) GI: - [...] 1448 Peripherally Inserted (PICC) Left Arm 5.0 Bulgarian (Active) Peripheral 06/07/19 0812 Short Left Hand [...] questions or concerns Mon-Fri 6a-5p please page [phone]. After 5pm and on Weekends and Holidays, please page [phone]. 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 Performed By: #### E RTRP #### [place] [address] Urinalysis Routineon 019 Bacteria LM.HPF (Urine sed) [#/Area] NONE Normal None [facility] Comment on above: Performed By: #### E RTRP #### [place] [address] Ep Cells Urine 0.4 /hpf Normal 0.0-5.0 [facility] Comment on above: Performed By: #### E RTRP #### [place] [address] Hyaline Cast 0.0 /lpf Normal 0.0-1.0 [facility] Comment on above: Performed By: #### E RTRP #### [place] [address] RBC LM.HPF (Urine sed) [#/Area] 4.7 /[HPF] Normal 0.0-5.0 [facility] Comment on above: Performed By: #### E RTRP #### [place] [address] WBC LM.HPF (Urine sed) [#/Area] 0.2 /[HPF] Normal 0.0-5.0 [facility] Comment on above: Performed By: #### E RTRP #### [place] [address] Appearance (U) CLOUDY Normal [facility] Comment on above: Performed By: #### E RTRP #### [place] [address] Bilirubin (U) [Mass/Vol] Negative Normal Negative [facility] Comment on above: Performed By: #### E RTRP #### [place] [address] Color (U) YELLOW Normal [facility] Comment on above: Performed By: #### E RTRP #### [address] [place], [place] [address] Glucose Ql (U) Negative Normal Negative [facility] Comment on above: Performed By: #### E RTRP #### [facility] [address] [place] [address] Hemoglobin,Urine Negative Normal Negative [facility] Comment on above: Performed By: #### E RTRP #### [facility] [address] [place] [address] Ketone Urine Negative Normal Negative [facility] Comment on above: Performed By: #### E RTRP #### [facility] [address] [place] [address] Leukocytes Esterase Negative Normal Negative [facility] Comment on above: Performed By: #### E RTRP #### [facility] [address] [place] [address] Nitrites Urine Negative Normal Negative [facility] Comment on above: Performed By: #### E RTRP #### [place] [address] pH (U) 7.5 [pH] Normal 5.0-8.0 [facility] Comment on above: Performed By: #### E RTRP #### [place] [address] Protein (U) [Mass/Vol] Negative Normal Negative [facility] Comment on above: Performed By: #### E RTRP #### [place] [address] Specific [place], Ur 1.014 Normal 1.005-1.030 [facility] Comment on above: Performed By: #### E RTRP #### [facility] [address] [place] [address] Urobilinogen,Ur 0.2 EU/dL Normal 0.2-1.0 [facility] Comment on above: Performed By: #### E RTRP #### [place] [address] Basic Panelon 06-09-2019 Creatinine [Mass/Vol] 0.36 mg/dL Low 0.67-1.17 [facility] Comment on above: Performed By: #### G FR #### [facility] [address] [place], [place] [address] Anion gap [Moles/Vol] 11 mmol/L Normal 8-16 [facility] Comment on above: Performed By: #### G FR #### [facility] [address] [place], [place] [address] CO2 [Moles/Vol] 27 mmol/L Normal 21-32 [facility] Comment on above: Performed By: #### G FR #### [facility] [address] [place], [place] [address] Glucose [Mass/Vol] 160 mg/dL High 70-99 [facility] Comment on above: Performed By: #### G FR #### [facility] [address] [place], [place] [address] Urea nitrogen [Mass/Vol] 5 mg/dL Low 7-18 [facility] Comment on above: Performed By: #### G FR #### [facility] [address] [place], [place] [address] Calcium [Mass/Vol] 8.3 mg/dL Low 8.5-10.1 [facility] Comment on above: Performed By: #### G FR #### [facility] [address] [place], [place] [address] Chloride [Moles/Vol] 98 mmol/L Normal 98-107 [facility] Comment on above: Performed By: #### G FR #### [facility] [address] [place], [place] [address] Potassium [Moles/Vol] 3.5 mmol/L Normal 3.5-5.1 [facility] Comment on above: Performed By: #### G FR #### [facility] [address] [place], [place] [address] Sodium [Moles/Vol] 132 mmol/L Low 136-145 [facility] Comment on above: Performed By: #### G FR #### [facility] [address] [place], [place] [address] CASE MANAGEMon 06-09-2019 CASE MANAGEM HNO ID: [id number] Author: Jessica LucasRn) GILBERTO Lakhani Service: Care Management Author Type: Registered Nurse Type: Care Mgt Progress Note Filed: 11/30/2019 10:10 AM Note Text: CARE MANAGEMENT PROGRESS NOTE SERVICE DATE: 06/09/2019 SERVICE TIME: 4:08 PM LOS: 8 days Spoke with Vee Jurado Palliative care and inquired about [facility] Detectives to find patients Brothers phone numbers. One is in [place] and the other is in [place]. Call to Steel Pan Form Placing Supervisor Mei and she is going to assist with finding relatives and the RN Halina Carroll was going to consult Ethics to see patient and maybe need a guardian to be appointed. Possibly Sahil Kingsley patients friend and ex significant other. SIGNATURE: Jessica Lakhani RN PATIENT NAME: Rhoda Poon DATE: June 09, 2019 TIME: 4:08 PM PAGER/CONTACT #: [phone] [facility] CASE MANAGEM HNO ID: [id number] Author: Jessica LucasRn) GILBERTO Lakhani Service: Care [...] Zosyn/Vancomycin/Levaqu in. Neuro surgery signed off 06/04/19. [facility] repeat today. Will call [employer] to follow for self pay. Call [phone]. SIGNATURE: Jessica Lakhani RN PATIENT NAME: Rhoda Poon DATE: June 09, 2019 TIME: 8:19 AM PAGER/CONTACT #: [phone] [facility] CONSULTon 06-09-2019 CONSULT HNO ID: [id number] Author: Sally Robles Service: Bioethics Author Type: Bioethicist Type: Consults Filed: 06/09/2019 4:36 PM Note Text: ETHICS CONSULTATION NOTE SERVICE DATE: 06/09/2019 SERVICE TIME: 3:00PM CONSULT REQUESTER: Semiconductor Equipment Technician: Jessica Lakhani RN ETHICS QUESTION: What is an ethically supportable decision-making process for a patient that lacks decision-making capacity and for whom the team has yet to identify an authorized surrogate decision-maker? ETHICS RECOMMENDATIONS: 1. Utilize the [facility] Patients without Surrogates Standard Operating Procedure (SOP) [...] surrogate. ETHICS DISCUSSION AND ANALYSIS: Rec 1: [facility] Patients without Surrogates Standard Operating Procedure (SOP) [...] SOP, all three categories require that a Steel Pan Form Placing Supervisor continue (and document) rigorous efforts to identify [...] and values. BACKGROUND: Process Steps: Ethics consult tractor driver teamster Joanne Jurado spoke with Semiconductor Equipment Technician Jessica Lakhani. Briefly reviewed EMR. Ethically Relevant Medical Information: Code Status: Full Code by Default Capacity/Decision-Makin g Considerations: Lacks decision-making capacity Advance Directives/Family/Suppo rt System: A former partner, Sahil Kingsley #[phone], is listed as an emergency contact. Per [...] 09, 2019 TIME: 3:28 PM PAGER/CONTACT #: [phone] [facility] [address] BRAIN WO IVCONon 06-09-20 CT BRAIN WO IVCON * * *Final Report* * * DATE OF EXAM: Jun 09 2019 4:39AM [place] [facility] [id number] - CT BRAIN WO IVCON / [...] cerebri subdural hemorrhage is unchanged. Unchanged negligible [id number] midline shift. Chemical Processor: [employer] Transcribe Date/Time: Jun 09 2019 4:48A Dictated by : OLLIE SAMUEL MD This examination was interpreted and the report reviewed and electronically signed by: OLLIE SAMUEL MD on Jun 09 2019 4:58AM EST Normal [facility] Hemogram/Diffon 06-09-2019 Abs Immature Grans 0.42 thou/cmm High 0.00-0.05 [facility] Comment on above: Performed By: #### G FR #### [facility] [address] [place] [address] Abs Neut (ANC) 11.63 thou/cmm High 1.78-5.38 [facility] Comment on above: Performed By: #### G FR #### [facility] [address] [place] [address] Abs. Baso 0.09 thou/cmm High 0.01-0.08 [facility] Comment on above: Result Comment: Smea r scanned; tech agrees with automated differential Performed By: #### G FR #### [facility] [address] [place] [address] Abs. [place] 2.15 thou/cmm High 0.30-0.82 [facility] Comment on above: Performed By: #### G FR #### [facility] [address] [place] [address] Basophils/100 WBC (Bld) 0.6 % Normal [facility] Comment on above: Performed By: #### G FR #### [facility] [address] [place] [address] Eosinophils (Bld) [#/Vol] 0.16 thou/cmm Normal 0.04-0.54 [facility] Comment on above: Performed By: #### G FR #### [facility] [address] [place] [address] Eosinophils/100 WBC (Bld) 1.0 % Normal [facility] Comment on above: Performed By: #### G FR #### [facility] [address] [place] [address] Immature Grans 2.70 % Normal [facility] Comment on above: Performed By: #### G FR #### [facility] [address] [place] [address] Lymphocytes (Bld) [#/Vol] 1.26 thou/cmm Normal 0.84-2.85 [facility] Comment on above: Performed By: #### G FR #### [facility] [address] [place] [address] Lymphocytes/100 WBC (Bld) 8.0 % Normal [facility] Comment on above: Performed By: #### G FR #### [facility] [address] [place] [address] Monocytes/100 WBC (Bld) 13.7 % Normal [facility] Comment on above: Performed By: #### G FR #### [facility] [address] [place] [address] Seg Neutrophil 74.0 % Normal [facility] Comment on above: Performed By: #### G FR #### [facility] [address] [place] [address] Erythrocyte distribution width (RBC) [Ratio] 14.3 % Normal 11.6-14.4 [facility] Comment on above: Performed By: #### G FR #### [facility] [address] [place] [address] Hematocrit (Bld) [Volume fraction] 37.1 % Low 40.1-51.0 [facility] Comment on above: Performed By: #### G FR #### [facility] [address] [place] [address] Hemoglobin (Bld) [Mass/Vol] 12.6 g/dL Low 13.7-17.5 [facility] Comment on above: Performed By: #### G FR #### [facility] [address] [place] [address] MCH (RBC) [Entitic mass] 32.7 pg High 25.7-32.2 [facility] Comment on above: Performed By: #### G FR #### [facility] [address] [place] [address] MCHC (RBC) [Mass/Vol] 34.0 % Normal 32.3-36.5 [facility] Comment on above: Performed By: #### G FR #### [facility] [address] [place] [address] MCV (RBC) [Entitic vol] 96.4 fL High 83.2-95.6 [facility] Comment on above: Performed By: #### G FR #### [facility] [address] [place] [address] [place], [place] [address] Platelet mean volume (Bld) [Entitic vol] 8.7 fL Normal 8.7-12.0 [facility] Comment on above: Performed By: #### G FR #### [facility] [address] [place] [id number] Platelets (Bld) [#/Vol] 537 thou/cmm High 141-365 [facility] Comment on above: Performed By: #### G FR #### [facility] [address] [place] [address] RBC (Bld) [#/Vol] 3.85 mil/cmm Low 4.63-6.08 [facility] Comment on above: Performed By: #### G FR #### [facility] [address] [place] [address] RDW SD 51.0 fl High 36.1-45.8 [facility] Comment on above: Performed By: #### G FR #### [facility] [address] [place] [address] WBC (Bld) [#/Vol] 15.72 thou/cmm High 4.23-9.07 [facility] Comment on above: Performed By: #### G FR #### [place] [address] Magnesium Bloodon 06-09-2019 Magnesium [Mass/Vol] 1.7 mg/dL Normal 1.6-2.6 [facility] Comment on above: Performed By: #### G FR #### [place] [address] NURSING PROGon 06-09-2019 NURSING PROG HNO ID: [id number] Author: Radhika (Rn) GILBERTO Worthy Service: Nursing Author Type: Registered Nurse Type: Nursing Progress Note Filed: 06/09/2019 9:10 PM Note Text: Nursing Progress: Topic: RESTRAINT NON-VIOLENT PATIENT NAME: Rhoda Poon PATIENT LOCATION: [place] [address] [address]* The patient demonstrates Attempting to Remove [...] 2019 TIME: 9:10 PM Radhika Worthy RN Normal [facility] NURSING PROG HNO ID: [id number] Author: Halina (Rn) GILBERTO Carroll Service: Nursing Author Type: Registered Nurse Type: Nursing Progress Note Filed: 06/09/2019 7:53 AM Note Text: Nursing Progress: Topic: RESTRAINT NON-VIOLENT PATIENT NAME: Rhoda Poon PATIENT LOCATION: [id number]/[place] [address]* The patient demonstrates Confusion, Attempting to [...] 2019 TIME: 7:53 AM Halina Carroll RN [facility] Phosphorus Bloodon 9 Phosphate [Mass/Vol] 2.4 mg/dL Low 2.5-4.9 [facility] Comment on above: Performed By: #### G FR #### [place] [address] XR CHEST 1V FRONTAL PORTon 1 XR [...] cardiomediastinal silhouette. Other: . IMPRESSION: Stable appearance. Chemical Processor: HUGO Transcribe Date/Time: Jun 09 2019 7:07A Dictated by : KRUNAL CHONG MD This examination was interpreted and the report reviewed and electronically signed by: KRUNAL CHONG MD on Jun 09 2019 7:08AM EST Normal [facility] Basic Panelon 06-08-2019 Creatinine [Mass/Vol] 0.37 mg/dL Low 0.67-1.17 [facility] Comment on above: Performed By: #### A MY #### [address] [address] Anion gap [Moles/Vol] 12 mmol/L Normal 8-16 [facility] Comment on above: Performed By: #### A MY #### [address] [address] Calcium [Mass/Vol] 8.5 mg/dL Normal 8.5-10.1 [facility] Comment on above: Performed By: #### A MY #### [address] [address] CO2 [Moles/Vol] 31 mmol/L Normal 21-32 [facility] Comment on above: Performed By: #### A MY #### [address] [address] Glucose [Mass/Vol] 161 mg/dL High 70-99 [facility] Comment on above: Performed By: #### A MY #### [facility] [address] [place], [place] [address] Urea nitrogen [Mass/Vol] 5 mg/dL Low 7-18 [facility] Comment on above: Performed By: #### A MY #### [facility] [address] [place], [place] [address] Chloride [Moles/Vol] 93 mmol/L Low 98-107 [facility] Comment on above: Performed By: #### A MY #### [facility] [address] [place] [address] Potassium [Moles/Vol] 3.6 mmol/L Normal 3.5-5.1 [facility] Comment on above: Performed By: #### A MY #### [facility] [address] [place] [address] Sodium [Moles/Vol] 132 mmol/L Low 136-145 [facility] Comment on above: Performed By: #### A MY #### [facility] [address] [place] [address] ECG COMPLETEon 06-08-2019 ECG COMPLETE NAME : JONI POON PID : [id number] : 1970 Gender : Male Race : ORD : [id number] Procedure Date : Jun 08 2019 04:14:50 Edit Date : Jun 12 2019 06:08:08 Diagnosis:NORMAL SINUS RHYTHM T WAVE ABNORMALITY, CONSIDER ANTERIOR ISCHEMIA ABNORMAL ECG Confirmed by MD HAJI CANDACE ([id number]) on 06/12/2019 6:08:05 AM Ventricular Rate : 87 BPM Atrial Rate : 87 BPM P-R Interval : 124 ms QRS Duration : 88 ms Q-T Interval : 354 ms QTC Calculation(Bazett) : 425 ms P Axtell : 75 degrees R Axtell : 78 degrees T Axtell : 76 degrees Test Reason : Arrhythmia Location : 4 : [place] [id number] Overread By : MD HAJI CANDACE Edited By : MD HAJI CANDACE Referred By : , Acquired by : DANTE VALENCIA [facility] Hemogram/Diffon 06-08-2019 Abs Immature Grans 0.29 thou/cmm High 0.00-0.05 [facility] Comment on above: Performed By: #### A MY #### [facility] [address] [place] [address] Abs Neut (ANC) 14.44 thou/cmm High 1.78-5.38 [facility] Comment on above: Performed By: #### A MY #### [facility] [address] [place] [address] Abs. Baso 0.05 thou/cmm Normal 0.01-0.08 [facility] Comment on above: Performed By: #### A MY #### [facility] [address] [place] [address] Abs. [place] 2.12 thou/cmm High 0.30-0.82 [facility] Comment on above: Performed By: #### A MY #### [place] [address] Basophils/100 WBC (Bld) 0.3 % Normal [facility] Comment on above: Performed By: #### A MY #### [place] [address] Eosinophils (Bld) [#/Vol] 0.05 thou/cmm Normal 0.04-0.54 [facility] Comment on above: Performed By: #### A MY #### [place] [address] Eosinophils/100 WBC (Bld) 0.3 % Normal [facility] Comment on above: Performed By: #### A MY #### [place] [address] Immature Grans 1.60 % Normal [facility] Comment on above: Performed By: #### A MY #### [place] [address] Lymphocytes (Bld) [#/Vol] 1.04 thou/cmm Normal 0.84-2.85 [facility] Comment on above: Performed By: #### A MY #### [place] [address] Lymphocytes/100 WBC (Bld) 5.8 % Normal [facility] Comment on above: Performed By: #### A MY #### [facility] [address] [place] [address] Monocytes/100 WBC (Bld) 11.8 % Normal [facility] Comment on above: Performed By: #### A MY #### [facility] [address] [place] [address] Seg Neutrophil 80.2 % Normal [facility] Comment on above: Performed By: #### A MY #### [place] [address] Erythrocyte distribution width (RBC) [Ratio] 13.9 % Normal 11.6-14.4 [facility] Comment on above: Performed By: #### A MY #### [place] [address] Hematocrit (Bld) [Volume fraction] 40.1 % Normal 40.1-51.0 [facility] Comment on above: Performed By: #### A MY #### [place] [address] Hemoglobin (Bld) [Mass/Vol] 13.2 g/dL Low 13.7-17.5 [facility] Comment on above: Performed By: #### A MY #### [place] [address] MCH (RBC) [Entitic mass] 32.4 pg High 25.7-32.2 [facility] Comment on above: Performed By: #### A MY #### [place] [address] MCHC (RBC) [Mass/Vol] 32.9 % Normal 32.3-36.5 [facility] Comment on above: Performed By: #### A MY #### [place] [address] MCV (RBC) [Entitic vol] 98.5 fL High 83.2-95.6 [facility] Comment on above: Performed By: #### A MY #### [place] [address] Platelet mean volume (Bld) [Entitic vol] 8.8 fL Normal 8.7-12.0 [facility] Comment on above: Performed By: #### A MY #### [facility] [address] [place] [address] Platelets (Bld) [#/Vol] 450 thou/cmm High 141-365 [facility] Comment on above: Performed By: #### A MY #### [facility] [address] [place] [address] RBC (Bld) [#/Vol] 4.07 mil/cmm Low 4.63-6.08 [facility] Comment on above: Performed By: #### A MY #### [facility] [address] [place] [address] RDW SD 51.2 fl High 36.1-45.8 [facility] Comment on above: Performed By: #### A MY #### [facility] [address] [place] [address] WBC (Bld) [#/Vol] 18.00 thou/cmm High 4.23-9.07 [facility] Comment on above: Performed By: #### A MY #### [place] [address] Magnesium Bloodon 06-08-2019 Magnesium [Mass/Vol] 1.9 mg/dL Normal 1.6-2.6 [facility] Comment on above: Performed By: #### G FR #### [place] [address] NURSING PROGon 06-08-2019 NURSING PROG HNO ID: [id number] Author: Radhika (Rn) GILBERTO Worthy Service: Nursing Author Type: Registered Nurse Type: Nursing Progress Note Filed: 06/08/2019 7:34 PM Note Text: Nursing Progress: Topic: RESTRAINT NON-VIOLENT PATIENT NAME: Rhoda Poon PATIENT LOCATION: [id number] 0* The patient demonstrates Confusion, Attempting to [...] 2019 TIME: 7:34 PM Radhika Worthy RN [facility] NURSING PROG HNO ID: [id number] Author: Halina (Rn) GILBERTO Carroll Service: Nursing Author Type: Registered Nurse Type: Nursing Progress Note Filed: 06/08/2019 9:03 AM Note Text: Dr. Johns notified patient's IV infiltrated after 1 day. Bilateral arms edematous, bruised, and arms show multiple old iv/blood sticks. RN unable to find new vein for adequate iv access. RN informed Dr. Jhons unable to hang all medications due to compatibility with only 2 ivs. RN requesting picc line or central line due to fast turn over rate of iv site, and potent iv medications. No new orders from Dr. Andreas cordova rn [facility] NURSING PROG HNO ID: [id number] Author: Mynor LucasRn) GILBERTO Hernandez Service: ? Author Type: Registered Nurse Type: Nursing Progress Note Filed: 06/08/2019 8:32 AM Note Text: Nursing Progress: Topic: RESTRAINT NON-VIOLENT PATIENT NAME: Rhoda Poon PATIENT LOCATION: [id number]/[place] [address]* The patient demonstrates Inability to Retain [...] 2019 TIME: 8:00 AM Mynor Hernandez RN [facility] NURSING PROG HNO ID: [id number] Author: Radhika LucasRn) GILBERTO Worthy Service: Nursing Author Type: Registered Nurse Type: Nursing Progress Note Filed: 06/07/2019 10:50 PM Note Text: Nursing Progress: Topic: RESTRAINT NON-VIOLENT PATIENT NAME: Rhoda Poon PATIENT LOCATION: [place] [address] [address]* The patient demonstrates Inability to Retain [...] 2019 TIME: 10:49 PM Radhika Worthy RN [facility] PROGRESSon 06-08-2019 PROGRESS HNO ID: [id number] Author: Lakesha Wilkes Service: Critical Care Author [...] Max:38.4 ?C (101.1 ?F) Date 06/07/19699 - 06/08/1965806/08/19 0700 - 06/09/19 0659 Shift 5901-6584 6702-9193 1733-8253 24 Hour Total 0043-9460 8266-0615 6497-9543 24 Hour Total INTAKE IV 750 1093.3 [...] 750 1643.3 692.6 3085.9 OUTPUT Urine 1425 783 366 1788 Urine Incontinence/Not Saved 1 x 1 x Output ( External Collection Device 06/04/191999) 1425 959 208 8358 Tubes 2033 806 2881 Output (GI Feed 06/07/19 0920 Gastric Mouth) 7514 877 4313 Shift Total 2925 6422 344 7603 Weight (kg) 69.8 69.8 69.8 69.8 69.8 [...] 12 Fr 5 days External Collection Device 06/04/191999 3 days GI Feed 06/07/19 0920 Gastric [...] and on Weekends and Holidays, please page [phone]. SIGNATURE: Reginaldo Johns MD PATIENT NAME: Rhoda [...] fracture of vault of skull, initial encounter ([facility]) (I60.9) Subarachnoid hemorrhage (HCC) (S06.359A) Traumatic left-sided intracerebral hemorrhage with loss of consciousness, initial encounter ([facility]) (S02.19XA) Closed fracture of temporal bone, initial encounter ([facility]) (S22.32XA) Closed fracture of one rib of left side, initial encounter (E44.1) Malnutrition of mild degree ([facility]) (F10.231) DTs (delirium tremens) ([facility]) (I60.9) SAH (subarachnoid hemorrhage) ([facility]) (R47.01) Aphasia (F31.9) Bipolar affective disorder, remission status unspecified ([facility]) (J96.02) Acute respiratory failure with hypercapnia ([facility]) Management included sedation, pain control and ventilation [...] June 08, 2019 TIME: 11:54 AM Normal [facility] Phosphorus Bloodon 9 Phosphate [Mass/Vol] 2.2 mg/dL Low 2.5-4.9 [facility] Comment on above: Performed By: #### G FR #### [place] [id number] XR CHEST 1V FRONTALon 2018 XR CHEST [...] bilaterally, possibly due to edema or pneumonia. Chemical Processor: [facility] Transcribe Date/Time: Jun 08 2019 8:43A Dictated by : JOSELUIS MOISE MD This examination was interpreted and the report reviewed and electronically signed by: JOSELUIS MOISE MD on Jun 08 2019 8:45AM EST Normal [facility] Basic Panelon 06-07-2019 Creatinine [Mass/Vol] 0.35 mg/dL Low 0.67-1.17 [facility] Comment on above: Performed By: #### L IP #### [address] [address] Anion gap [Moles/Vol] 10 mmol/L Normal 8-16 [facility] Comment on above: Performed By: #### L IP #### [facility] [address] [place], [place] [address] CO2 [Moles/Vol] 31 mmol/L Normal 21-32 [facility] Comment on above: Performed By: #### L IP #### [facility] [address] [place], [place] [address] Calcium [Mass/Vol] 8.5 mg/dL Normal 8.5-10.1 [facility] Comment on above: Performed By: #### L IP #### [facility] [address] [place], [place] [address] Glucose [Mass/Vol] 143 mg/dL High 70-99 [facility] Comment on above: Performed By: #### L IP #### [facility] [address] [place], [place] [address] Urea nitrogen [Mass/Vol] 6 mg/dL Low 7-18 [facility] Comment on above: Performed By: #### L IP #### [facility] [address] [place], [place] [address] Chloride [Moles/Vol] 90 mmol/L Low 98-107 [facility] Comment on above: Performed By: #### L IP #### [facility] [address] [place], [place] [address] Potassium [Moles/Vol] 4.5 mmol/L Normal 3.5-5.1 [facility] Comment on above: Performed By: #### L IP #### [facility] [address] [place] [address] Sodium [Moles/Vol] 126 mmol/L Low 136-145 [facility] Comment on above: Performed By: #### L IP #### [facility] [address] [place] [address] Blood Gas Arterialon 019 FIO2 Value Not Given Normal [facility] Comment on above: Performed By: #### A MY #### [facility] [address] [place], [place] [address] Base Excess 9.7 mmol/L High -3.0-3.0 [facility] Comment on above: Performed By: #### A MY #### [facility] [address] [place], [place] [address] HCO3 (Bld) [Moles/Vol] 34.2 mmol/L High 21.0-28.0 [facility] Comment on above: Performed By: #### A MY #### [facility] [address] [place], [place] [address] O2% Sat Arterial 97.4 % Normal 96.0-100.0 [facility] Comment on above: Performed By: #### A MY #### [facility] [address] [place], [place] [address] PCO2 Arterial 45.3 mm Hg High 35.0-45.0 [facility] Comment on above: Performed By: #### A MY #### [facility] [address] [place], [place] [address] pH Arterial 7.491 High 7.350-7.450 [facility] Comment on above: Performed By: #### A MY #### [facility] [address] [place], [place] [address] PO2 Arterial 80.3 mm Hg Low 83.0-108.0 [facility] Comment on above: Performed By: #### A MY #### [facility] [address] [place], [place] [address] FIO2 Value Not Given Normal [facility] Comment on above: Performed By: #### A MY #### [facility] [address] [place] [address] Base Excess 6.0 mmol/L High -3.0-3.0 [facility] Comment on above: Performed By: #### A MY #### [facility] [address] [place] [address] HCO3 (Bld) [Moles/Vol] 32.3 mmol/L High 21.0-28.0 [facility] Comment on above: Performed By: #### A MY #### [facility] [address] [place], [place] [address] O2% Sat Arterial 99.3 % Normal 96.0-100.0 [facility] Comment on above: Performed By: #### A MY #### [facility] [address] [place], [place] [address] PCO2 Arterial 55.8 mm Hg High 35.0-45.0 [facility] Comment on above: Performed By: #### A MY #### [facility] [address] [place], [place] [address] pH Arterial 7.381 Normal 7.350-7.450 [facility] Comment on above: Performed By: #### A MY #### [facility] [address] [place] [address] PO2 Arterial 154.0 mm Hg High 83.0-108.0 [facility] Comment on above: Performed By: #### A MY #### [place] [address] Base Excess 4.9 mmol/L High -3.0-3.0 [facility] Comment on above: Performed By: #### A MY #### [place] [address] FIO2 15L Normal [facility] Comment on above: Performed By: #### A MY #### [place] [address] HCO3 (Bld) [Moles/Vol] 38.7 mmol/L High 21.0-28.0 [facility] Comment on above: Performed By: #### A MY #### [place] [address] O2% Sat Arterial 95.2 % Low 96.0-100.0 [facility] Comment on above: Performed By: #### A MY #### [place] [address] PCO2 Arterial 113.0 mm Hg Critically high 35.0-45.0 [facility] Comment on above: Performed By: #### A MY #### [place] [address] pH Arterial 7.162 Critically low 7.350-7.450 [facility] Comment on above: Performed By: #### A MY #### [place] [address] PO2 Arterial 93.5 mm Hg Normal 83.0-108.0 [facility] Comment on above: Performed By: #### A MY #### [place] [address] Hemogram/Diffon 06-07-2019 Abs Immature Grans 0.32 thou/cmm High 0.00-0.05 [facility] Comment on above: Performed By: #### L IP #### [place] [address] Abs Neut (ANC) 18.05 thou/cmm High 1.78-5.38 [facility] Comment on above: Performed By: #### L IP #### [facility] [address] [place] [address] Abs. Baso 0.09 thou/cmm High 0.01-0.08 [facility] Comment on above: Performed By: #### L IP #### [facility] [address] [place] [address] Abs. [place] 2.02 thou/cmm High 0.30-0.82 [facility] Comment on above: Performed By: #### L IP #### [facility] [address] [place] [address] Basophils/100 WBC (Bld) 0.4 % Normal [facility] Comment on above: Performed By: #### L IP #### [place] [address] Eosinophils (Bld) [#/Vol] 0.06 thou/cmm Normal 0.04-0.54 [facility] Comment on above: Performed By: #### L IP #### [place] [address] Eosinophils/100 WBC (Bld) 0.3 % Normal [facility] Comment on above: Performed By: #### L IP #### [place] [address] Immature Grans 1.50 % Normal [facility] Comment on above: Performed By: #### L IP #### [facility] [address] [place] [address] Lymphocytes (Bld) [#/Vol] 0.74 thou/cmm Low 0.84-2.85 [facility] Comment on above: Performed By: #### L IP #### [place] [address] Lymphocytes/100 WBC (Bld) 3.5 % Normal [facility] Comment on above: Performed By: #### L IP #### [place] [address] Monocytes/100 WBC (Bld) 9.5 % Normal [facility] Comment on above: Performed By: #### L IP #### [facility] [address] [place] [address] Seg Neutrophil 84.8 % Normal [facility] Comment on above: Performed By: #### L IP #### [facility] [address] [place] [address] Erythrocyte distribution width (RBC) [Ratio] 13.5 % Normal 11.6-14.4 [facility] Comment on above: Performed By: #### L IP #### [facility] [address] [place] [address] Hematocrit (Bld) [Volume fraction] 43.6 % Normal 40.1-51.0 [facility] Comment on above: Performed By: #### L IP #### [facility] [address] [place] [address] Hemoglobin (Bld) [Mass/Vol] 14.3 g/dL Normal 13.7-17.5 [facility] Comment on above: Performed By: #### L IP #### [facility] [address] [place] [address] MCH (RBC) [Entitic mass] 32.7 pg High 25.7-32.2 [facility] Comment on above: Performed By: #### L IP #### [facility] [address] [place] [address] MCHC (RBC) [Mass/Vol] 32.8 % Normal 32.3-36.5 [facility] Comment on above: Performed By: #### L IP #### [facility] [address] [place] [address] MCV (RBC) [Entitic vol] 99.8 fL High 83.2-95.6 [facility] Comment on above: Performed By: #### L IP #### [facility] [address] [place] [address] Platelet mean volume (Bld) [Entitic vol] 8.7 fL Normal 8.7-12.0 [facility] Comment on above: Performed By: #### L IP #### [facility] [address] [place], [place] [address] Platelets (Bld) [#/Vol] 360 thou/cmm Normal 141-365 [facility] Comment on above: Performed By: #### L IP #### [facility] [address] [place], [place] [address] RBC (Bld) [#/Vol] 4.37 mil/cmm Low 4.63-6.08 [facility] Comment on above: Performed By: #### L IP #### [facility] [address] [place], [place] [address] RDW SD 50.1 fl High 36.1-45.8 [facility] Comment on above: Performed By: #### L IP #### [facility] [address] [place], [place] [address] WBC (Bld) [#/Vol] 21.28 thou/cmm High 4.23-9.07 [facility] Comment on above: Performed By: #### L IP #### [facility] [address] [place], [place] [address] Ionized Calciumon 06-07-2019 Ionized Ca,PH7.4 4.17 mg/dL Low 4.61-5.17 [facility] Comment on above: Performed By: #### L IP #### [facility] [address] [place], [place] [address] pH (Bld) 7.402 [pH] Normal 7.320-7.430 [facility] Comment on above: Performed By: #### L IP #### [facility] [address] [place], [place] [address] Ionized Calcium 4.16 mg/dL Low 4.61-5.17 [facility] Comment on above: Performed By: #### L IP #### [facility] [address] [place], [place] [address] Magnesium Bloodon 06-07-2019 Magnesium [Mass/Vol] 1.8 mg/dL Normal 1.6-2.6 [facility] Comment on above: Performed By: #### L IP #### [facility] [address] [place], [place] [address] NURSING PROGon 06-07-2019 NURSING PROG HNO ID: [id number] Author: Halina LucasRn) GILBERTO Carroll Service: Nursing Author Type: Registered Nurse Type: Nursing Progress Note Filed: 06/07/2019 7:30 AM Note Text: Nursing Progress: Topic: RESTRAINT NON-VIOLENT PATIENT NAME: Rhoda Poon PATIENT LOCATION: [id number] [id number] 0* The patient demonstrates Attempting to Remove [...] 2019 TIME: 7:30 AM Halina Carroll RN [facility] NURSING PROG HNO ID: [id number] Author: Halina Gomez) GILBERTO Carroll Service: Nursing Author Type: Registered [...] SBP >200 - lopressor given Tamia MACIAS [facility] PROGRESSon 06-07-2019 PROGRESS HNO ID: [id number] Author: Lakesha Wilkes Service: Trauma Author Type: [...] Date 06/06/19 07 - 06/07/19 0659 06/07/19 0700 - 06/08/19 0659 Shift 2086-9350 0894-8561 4039-9829 24 Hour Total 2359-8538 1909-1083 5453-5294 24 Hour Total INTAKE IV 387 499 994 1302 IVPB 200 20 220 NS 0.9% 20 20 316 356 Zosyn IV 200 100 300 Dexmedetomidine IV 167 36 165 368 Irrigants 260 160 130 550 Irrigant/Flush Amount In (GI Feed 06/02/19 1446 Gastric Right Naris 12 Fr) 260 160 130 550 Gastric Tube 603 907 413 7898 Tube Feed Intake (I/O) (GI Feed 06/02/19 1446 Gastric Right Naris 12 Fr) 603 604 836 4746 Shift Total 1242 315 3123 3068 OUTPUT Urine 200 614 166 7696 Urine Incontinence/Not Saved 2 x 2 x Output ( External Collection Device 06/04/191999) 200 679 149 5396 # of BMs Number of BMs 0 x 0 x 0 x Shift Total 200 586 010 0830 Weight (kg) 69.8 69.8 69.8 69.8 69.8 [...] Tobacco Use Disorder Personal history of alcoholism ([facility]) Depression Tremor Gerd (Gastroesophageal Reflux Disease) Bipolar Affective Disorder (Hcc) Epilepsy ([facility]) Pain of Upper Abdomen Subdural Hematoma ([facility]) Dts (Delirium Tremens) ([facility]) Sah (Subarachnoid Hemorrhage) ([facility]) Closed Fracture of One Rib of Left Side Closed Fracture of Vault of Skull ([facility]) Aphasia Malnutrition of Mild Degree ([facility]) Neuro: - Pain Control:?tylenol, oxycodone, morphine prn [...] and on Weekends and Holidays, please page [phone]. SIGNATURE: Reginaldo Johns MD PATIENT NAME: Rhoda [...] fracture of vault of skull, initial encounter ([facility]) (I60.9) Subarachnoid hemorrhage (HCC) (S06.359A) Traumatic left-sided intracerebral hemorrhage with loss of consciousness, initial encounter ([facility]) (S02.19XA) Closed fracture of temporal bone, initial encounter ([facility]) (S22.32XA) Closed fracture of one rib of left side, initial encounter (E44.1) Malnutrition of mild degree ([facility]) (F10.231) DTs (delirium tremens) ([facility]) (I60.9) SAH (subarachnoid hemorrhage) ([facility]) (R47.01) Aphasia (F31.9) Bipolar affective disorder, remission status unspecified ([facility]) (J96.02) Acute respiratory failure with hypercapnia ([facility]) Management included sedation, pain control and ventilation [...] June 07, 2019 TIME: 1:02 PM Normal [facility] Phosphorus Bloodon 9 Phosphate [Mass/Vol] 3.2 mg/dL Normal 2.5-4.9 [facility] Comment on above: Performed By: #### A MY #### [place] [address] XR CHEST 1V FRONTALon 2018 XR CHEST [...] tube tip approximately 4.2 cm above the abel. Interval insertion of nasogastric tube. The side [...] zone, possibly due to atelectasis or consolidation. Chemical Processor: [facility] Transcribe Date/Time: Jun 07 2019 9:59A Dictated by : JOSELUIS MOISE MD This examination was interpreted and the report reviewed and electronically signed by: JOSELUIS MOISE MD on Jun 07 2019 10:07AM EST Normal [facility] XR CHEST 1V FRONTAL * * [...] visualized portions of the indwelling enteric tube. Chemical Processor: [facility] Transcribe Date/Time: Jun 07 2019 8:58A Dictated by : JOSELUIS MOISE MD This examination was interpreted and the report reviewed and electronically signed by: JOSELUIS MOISE MD on Jun 07 2019 8:59AM EST Normal [facility] Basic Panelon 06-06-2019 Creatinine [Mass/Vol] 0.42 mg/dL Low 0.67-1.17 [facility] Comment on above: Performed By: #### L IP #### [address] [address] Anion gap [Moles/Vol] 10 mmol/L Normal 8-16 [facility] Comment on above: Performed By: #### L IP #### [address] [address] CO2 [Moles/Vol] 29 mmol/L Normal 21-32 [facility] Comment on above: Performed By: #### L IP #### [facility] [address] [place], [place] [address] Glucose [Mass/Vol] 146 mg/dL High 70-99 [facility] Comment on above: Performed By: #### L IP #### [address] [address] Urea nitrogen [Mass/Vol] 8 mg/dL Normal 7-18 [facility] Comment on above: Performed By: #### L IP #### [address], [place] [address] Calcium [Mass/Vol] 8.3 mg/dL Low 8.5-10.1 [facility] Comment on above: Performed By: #### L IP #### [facility] [address] [place], [place] [address] Chloride [Moles/Vol] 96 mmol/L Low 98-107 [facility] Comment on above: Performed By: #### L IP #### [facility] [address] [place], [place] [address] Potassium [Moles/Vol] 3.9 mmol/L Normal 3.5-5.1 [facility] Comment on above: Performed By: #### L IP #### [facility] [address] [place] [address] Sodium [Moles/Vol] 131 mmol/L Low 136-145 [facility] Comment on above: Performed By: #### L IP #### [facility] [address] [place] [address] CASE MANAGEMon 06-06-2019 CASE MANAGEM HNO ID: [id number] Author: Humaira (Rn) GILBERTO Rainey Service: Care [...] 06, 2019 TIME: 11:00 AM PAGER/CONTACT #: [phone] [facility] CONSULT PROGon 06-06-2019 CONSULT PROG HNO ID: [id number] Author: Shama Mathew (Manager Beverage) Service: Pharmacy Author Type: Pharmacist Type: Consult [...] care. Please contact pharmacy if questions. Normal [facility] CONSULT PROG HNO ID: [id number] Author: Lakesha Wilkes Service: Critical Care Author Type: Physician Type: Consult Progress Note Filed: 06/06/2019 1:05 PM Note Text: INPATIENT SICU PROGRESS NOTE SICU Service Pager: For questions or concerns Mon-Fri 6a-5p please page [phone]. After 5pm and on Weekends and Holidays, please page [phone]. SERVICE DATE: 06/06/2019 Subjective Subjective: This is [...] (98.6 ?F), Max:38.7 ?C (101.7 ?F) Date 06/05/19 07 - 06/06/1958 06/06/19 07 - 06/07/19 0659 Shift 9011-1516 1358-6101 2559-6275 24 Hour Total 5156-6000 4417-2075 5269-9958 24 Hour Total INTAKE IV 768.5 768.5 [...] and on Weekends and Holidays, please page [phone]. As above Remains in DTs Receiving Ativan, [...] DATE: June 06, 2019 TIME: 1:02 PM [facility] CONSULT PROG HNO ID: [id number] Author: Natalia Trujillo (Pharmacist) Service: Pharmacy Author [...] have any questions, [place] [phone]. Age: [age] year old Allergies: ALLERGIES Allergen [...] results found for: KANDI TRUJILLO, PHARMACIST Normal [facility] CT BRAIN WO IVCONon 06-06-[address] BRAIN WO IVCON * * *Final Report* * * DATE OF EXAM: Jun 06 2019 9:54AM [facility] [id number] - CT BRAIN WO IVCON / [...] of minimal left to right midline shift. Chemical Processor: [facility] Transcribe Date/Time: Jun 06 2019 10:08A Dictated by : FANTA HEART MD This examination was interpreted and the report reviewed and electronically signed by: FANTA HEART MD on Jun 06 2019 10:42AM EST Normal [facility] Cult Bloodon 06-06-2019 Cult Blood Test performed at [facility] No growth Normal [facility] Comment on above: Performed By: #### A MY #### [place] [address] Cult and Smr Respiratoryon 1 Cult and Smr Respiratory Test performed at [facility] Rare normal oropharyngeal scotty present Many [...] Testing repeat isolates may be warranted. Normal [facility] Comment on above: Performed By: #### L IP #### [place] [address] Hemogram/Diffon 06-06-2019 Abs Immature Grans 0.20 thou/cmm High 0.00-0.05 [facility] Comment on above: Performed By: #### P 14 #### [place] [address] Abs Neut (ANC) 13.57 thou/cmm High 1.78-5.38 [facility] Comment on above: Performed By: #### P 14 #### [place] [address] Abs. Baso 0.14 thou/cmm High 0.01-0.08 [facility] Comment on above: Result Comment: Smea r scanned; tech agrees with automated differential Performed By: #### P 14 #### [place] [address] Abs. [place] 2.94 thou/cmm High 0.30-0.82 [facility] Comment on above: Performed By: #### P 14 #### [place] [address] Basophils/100 WBC (Bld) 0.8 % Normal [facility] Comment on above: Performed By: #### P 14 #### [facility] [address] [place] [address] Eosinophils (Bld) [#/Vol] 0.07 thou/cmm Normal 0.04-0.54 [facility] Comment on above: Performed By: #### P 14 #### [place] [address] Eosinophils/100 WBC (Bld) 0.4 % Normal [facility] Comment on above: Performed By: #### P 14 #### [facility] [address] [place] [address] Immature Grans 1.10 % Normal [facility] Comment on above: Performed By: #### P 14 #### [facility] [address] [place] [address] Lymphocytes (Bld) [#/Vol] 1.00 thou/cmm Normal 0.84-2.85 [facility] Comment on above: Performed By: #### P 14 #### [facility] [address] [place] [address] Lymphocytes/100 WBC (Bld) 5.6 % Normal [facility] Comment on above: Performed By: #### P 14 #### [facility] [address] [place] [address] Monocytes/100 WBC (Bld) 16.4 % Normal [facility] Comment on above: Performed By: #### P 14 #### [facility] [address] [place] [address] Seg Neutrophil 75.7 % Normal [facility] Comment on above: Performed By: #### P 14 #### [facility] [address] [place] [address] Erythrocyte distribution width (RBC) [Ratio] 13.6 % Normal 11.6-14.4 [facility] Comment on above: Performed By: #### P 14 #### [facility] [address] [place] [address] Hematocrit (Bld) [Volume fraction] 41.5 % Normal 40.1-51.0 [facility] Comment on above: Performed By: #### P 14 #### [facility] [address] [place] [address] Hemoglobin (Bld) [Mass/Vol] 14.0 g/dL Normal 13.7-17.5 [facility] Comment on above: Performed By: #### P 14 #### [facility] [address] [place] [address] MCH (RBC) [Entitic mass] 33.0 pg High 25.7-32.2 [facility] Comment on above: Performed By: #### P 14 #### [facility] [address] [place] [address] MCHC (RBC) [Mass/Vol] 33.7 % Normal 32.3-36.5 [facility] Comment on above: Performed By: #### P 14 #### [facility] [address] [place] [address] MCV (RBC) [Entitic vol] 97.9 fL High 83.2-95.6 [facility] Comment on above: Performed By: #### P 14 #### [facility] [address] [place] [address] Platelet mean volume (Bld) [Entitic vol] 8.6 fL Low 8.7-12.0 [facility] Comment on above: Performed By: #### P 14 #### [place] [address] Platelets (Bld) [#/Vol] 287 thou/cmm Normal 141-365 [facility] Comment on above: Performed By: #### P 14 #### [facility] [address] [place] [address] RBC (Bld) [#/Vol] 4.24 mil/cmm Low 4.63-6.08 [facility] Comment on above: Performed By: #### P 14 #### [place] [address] RDW SD 49.1 fl High 36.1-45.8 [facility] Comment on above: Performed By: #### P 14 #### [place] [address] WBC (Bld) [#/Vol] 17.93 thou/cmm High 4.23-9.07 [facility] Comment on above: Performed By: #### P 14 #### [facility] [address] [place] [address] Ionized Calciumon 06-06-2019 Ionized Ca,PH7.4 4.41 mg/dL Low 4.61-5.17 [facility] Comment on above: Performed By: #### L IP #### [place] [address] pH (Bld) 7.367 [pH] Normal 7.320-7.430 [facility] Comment on above: Performed By: #### L IP #### [facility] [address] [place] [address] Ionized Calcium 4.48 mg/dL Low 4.61-5.17 [facility] Comment on above: Performed By: #### L IP #### [facility] [address] [place] [address] Lactic Acidon 06-06-2019 Lactate [Moles/Vol] 0.8 mmol/L Normal 0.4-2.0 [facility] Comment on above: Performed By: #### P 14 #### [place] [address] Magnesium Bloodon 06-06-2019 Magnesium [Mass/Vol] 1.9 mg/dL Normal 1.6-2.6 [facility] Comment on above: Performed By: #### L IP #### [facility] [address] [place] [address] NURSING PROGon 06-06-2019 NURSING PROG HNO ID: [id number] Author: Kala (Rn) GILBERTO Castorena Service: ? Author Type: Registered Nurse Type: Nursing Progress Note Filed: 06/07/2019 1:06 AM Note Text: Nursing Progress: Topic: RESTRAINT NON-VIOLENT PATIENT NAME: Rhoda Poon PATIENT LOCATION: [place] [address]/[place] [address] 0* The patient demonstrates Attempting to Remove [...] 2019 TIME: 1:05 AM Kala Castorena RN [facility] PROGRESSon 06-06-2019 PROGRESS HNO ID: [id number] Author: Ashley Alvarez (Destini) DESTINI Silver Service: Neurosurgery Author Type: Physician [employer] Type: Progress Notes Filed: 06/06/2019 12:04 PM [...] O2 Therapy: Hi-Flow IANDO: Date 06/05/[address] - 06/06/1958 06/06/[address] - 06/07/19 0659 Shift 7345-8446 6227-8723 5409-5983 24 Hour Total 8872-6173 3220-6963 6402-7580 24 Hour Total INTAKE IV 768.5 1448 [...] 1850 3178.5 288 288 OUTPUT Urine 460 352 490 4105 200 200 Void (ml) 160 160 Straight cath (ml) 300 275 575 Urine Incontinence/Not Saved 1 x 1 x 2 x 4 x Output ( External Collection Device 06/04/191999) 160 500 660 200 200 # of BMs Number of BMs 0 x 0 x 0 x 0 x Shift Total 460 296 083 1120 200 200 Weight (kg) 69.8 69.8 69.8 [...] Date Noted - Malnutrition of mild degree ([facility]) 06/05/2019 - DTs (delirium tremens) ([facility]) 06/02/2019 - SAH (subarachnoid hemorrhage) ([facility]) 06/02/2019 - Closed fracture of one rib of left side 06/02/2019 - Closed fracture of vault of skull (HCC) 06/02/2019 - Aphasia 06/02/2019 - Subdural hematoma (HCC) 06/01/2019 - Bipolar affective disorder (HCC) 12/21/2012 Overview Note: Diagnosed in ~1989 49 year old male left temp IPH/SAH/SDH - neuro stable - calm now - repeat CTH reviewed - evolving ICH - continue nonsurgical mgt - will SO - f/u with Dr. Bennett in 2 wks SIGNATURE: DESTINI Lobo PATIENT NAME: Rhoda Poon DATE: June 06, 2019 TIME: 8:32 AM Pager: [phone] [facility] PROGRESS HNO ID: [id number] Author: Raudel (Jacquelyn) MD Mauricio Service: Trauma Author Type: Resident Type: Progress [...] questions or concerns Mon-Fri 6a-5p please page [phone]. After 5pm and on Weekends and Holidays, please page [phone] if in ICU or [phone] if on RNF. SUBJECTIVE: Pt became febrile [...] O2 Therapy: Hi-Flow IANDO: Date 06/05/19699 - 06/06/1965806/06/19 07 - 06/07/19 0659 Shift 3183-0057 6565-5170 5405-3183 24 Hour Total 1830-5769 3170-4196 8321-0217 24 Hour Total INTAKE IV 768.5 1448 [...] 300 1028.5 1850 3178.5 OUTPUT Urine 460 716 846 6478 Void (ml) 160 160 Straight cath (ml) 300 275 575 Urine Incontinence/Not Saved 1 x 1 x 2 x 4 x Output ( External Collection Device 06/04/191999) 160 500 660 # of BMs Number of BMs 0 x 0 x Shift Total 460 111 286 3350 Weight (kg) 69.8 69.8 69.8 69.8 69.8 [...] Date Noted - Malnutrition of mild degree ([facility]) 06/05/2019 - DTs (delirium tremens) ([facility]) 06/02/2019 - SAH (subarachnoid hemorrhage) ([facility]) 06/02/2019 - Closed fracture of one rib of left side 06/02/2019 - Closed fracture of vault of skull ([facility]) 06/02/2019 - Aphasia 06/02/2019 - Subdural hematoma ([facility]) 06/01/2019 - Bipolar affective disorder ([facility]) 12/21/2012 Overview Note: Diagnosed in ~1989 49 y/o male found down and brought to outside ED, transferred to [facility] for intracranial bleed.? ? Imaging performed: 1. [...] questions or concerns Mon-Fri 6a-5p please page [phone]. After 5pm and on Weekends and Holidays, please page [phone] if in ICU or [phone] if on RNF. SIGNATURE: Raudel Martínez MD PATIENT NAME: Rhoda Poon DATE: June 06, 2019 TIME: 6:36 AM Normal [facility] Phosphorus Bloodon 9 Phosphate [Mass/Vol] 3.2 mg/dL Normal 2.5-4.9 [facility] Comment on above: Performed By: #### L IP #### [facility] [address] [place] [address] XR CHEST 1V FRONTALon 2018 XR CHEST [...] No abnormality identified. The trachea is midline Chemical Processor: [employer] Transcribe Date/Time: Jun 06 2019 2:11A Dictated by : CARTER TRUONG MD This examination was interpreted and the report reviewed and electronically signed by: CARTER TRUONG MD on Jun 06 2019 2:13AM EST Normal [facility] Basic Panelon 06-05-2019 Creatinine [Mass/Vol] 0.44 mg/dL Low 0.67-1.17 [facility] Comment on above: Performed By: #### P 14 #### [facility] [address] [place], [place] [address] Anion gap [Moles/Vol] 15 mmol/L Normal 8-16 [facility] Comment on above: Performed By: #### P 14 #### [facility] [address] [place], [place] [address] CO2 [Moles/Vol] 27 mmol/L Normal 21-32 [facility] Comment on above: Performed By: #### P 14 #### [facility] [address] [place], [place] [address] Glucose [Mass/Vol] 115 mg/dL High 70-99 [facility] Comment on above: Performed By: #### P 14 #### [facility] [address] [place], [place] [address] Urea nitrogen [Mass/Vol] 6 mg/dL Low 7-18 [facility] Comment on above: Performed By: #### P 14 #### [facility] [address] [place], [place] [address] Calcium [Mass/Vol] 8.3 mg/dL Low 8.5-10.1 [facility] Comment on above: Performed By: #### P 14 #### [facility] [address] [place], [place] [address] Chloride [Moles/Vol] 94 mmol/L Low 98-107 [facility] Comment on above: Performed By: #### P 14 #### [facility] [address] [place], [place] [address] Potassium [Moles/Vol] 4.5 mmol/L Normal 3.5-5.1 [facility] Comment on above: Performed By: #### P 14 #### [facility] [address] [place], [place] [address] Sodium [Moles/Vol] 131 mmol/L Low 136-145 [facility] Comment on above: Performed By: #### P 14 #### [facility] [address] [place], [place] [address] Creatinine [Mass/Vol] 0.47 mg/dL Low 0.67-1.17 [facility] Comment on above: Performed By: #### D RUG3 #### [facility] [address] [place], [place] [address] Anion gap [Moles/Vol] 10 mmol/L Normal 8-16 [facility] Comment on above: Performed By: #### D RUG3 #### [facility] [address] [place], [place] [address] Calcium [Mass/Vol] 8.2 mg/dL Low 8.5-10.1 [facility] Comment on above: Performed By: #### D RUG3 #### [facility] [address] [place], [place] [address] CO2 [Moles/Vol] 28 mmol/L Normal 21-32 [facility] Comment on above: Performed By: #### D RUG3 #### [facility] [address] [place], [place] [address] Glucose [Mass/Vol] 110 mg/dL High 70-99 [facility] Comment on above: Performed By: #### D RUG3 #### [facility] [address] [place] [address] Urea nitrogen [Mass/Vol] 8 mg/dL Normal 7-18 [facility] Comment on above: Performed By: #### D RUG3 #### [facility] [address] [place], [place] [address] Chloride [Moles/Vol] 98 mmol/L Normal 98-107 [facility] Comment on above: Performed By: #### D RUG3 #### [facility] [address] [place] [address] Potassium [Moles/Vol] 3.3 mmol/L Low 3.5-5.1 [facility] Comment on above: Performed By: #### D RUG3 #### [facility] [address] [place] [address] Sodium [Moles/Vol] 133 mmol/L Low 136-145 [facility] Comment on above: Performed By: #### D RUG3 #### [facility] [address] [place] [address] CASE MANAGEMon 06-05-2019 CASE MANAGEM HNO ID: [id number] Author: Humaira LucasRn) GILBERTO Rainey Service: Care Management Author Type: [...] 05, 2019 TIME: 1:46 PM PAGER/CONTACT #: [phone] [facility] CONSULT PROGon 06-05-2019 CONSULT PROG HNO ID: [id number] Author: Lakesha Wilkes Service: Critical Care Author Type: Physician Type: Consult Progress Note Filed: 06/06/2019 1:07 PM Note Text: INPATIENT SICU PROGRESS NOTE SICU Service Pager: For questions or concerns Mon-Fri 6a-5p please page [phone]. After 5pm and on Weekends and Holidays, please page [phone]. SERVICE DATE: 06/05/2019 Subjective Subjective: This is [...] (96.8 ?F), Max:37.3 ?C (99.1 ?F) Date 06/04/19699 - 06/05/19 0659 06/05/19 0700 - 06/06/19 0659 Shift 9706-5588 3101-3091 4646-6269 24 Hour Total 1736-6571 1582-4095 5386-1639 24 Hour Total INTAKE IV 189 84 178 451 Dexmedetomidine IV 189 84 178 451 Irrigants 100 30 130 Irrigant/Flush Amount In (GI Feed 06/02/19 1446 Gastric Right Naris 12 Fr) 100 30 130 Gastric Tube 349 140 388 877 Tube Feed Intake (I/O) (GI Feed 06/02/19 1446 Gastric Right Naris 12 Fr) 349 140 388 877 Shift Total 538 830 210 1607 OUTPUT Urine 300 400 700 Void (ml) [...] questions or concerns Mon-Sun 6a-5p please page [phone]. After 5pm and on Weekends and Holidays, please page [phone]. As above Delayed note signing Patient seen [...] June 06, 2019 TIME: 1:06 PM Normal [facility] Hemogram/Diffon 06-05-2019 Abs Immature Grans 0.29 thou/cmm High 0.00-0.05 [facility] Comment on above: Performed By: #### D RUG3 #### [place] [address] Abs Neut (ANC) 12.13 thou/cmm High 1.78-5.38 [facility] Comment on above: Performed By: #### D RUG3 #### [place] [address] Abs. Baso 0.08 thou/cmm Normal 0.01-0.08 [facility] Comment on above: Result Comment: Smea r scanned; tech agrees with automated differential Performed By: #### D RUG3 #### [place] [address] Abs. [place] 1.87 thou/cmm High 0.30-0.82 [facility] Comment on above: Performed By: #### D RUG3 #### [facility] [address] [place], [place] [address] Basophils/100 WBC (Bld) 0.5 % Normal [facility] Comment on above: Performed By: #### D RUG3 #### [facility] [address] [place], [place] [address] Eosinophils (Bld) [#/Vol] 0.23 thou/cmm Normal 0.04-0.54 [facility] Comment on above: Performed By: #### D RUG3 #### [facility] [address] [place], [place] [address] Eosinophils/100 WBC (Bld) 1.4 % Normal [facility] Comment on above: Performed By: #### D RUG3 #### [facility] [address] [place], [place] [address] Immature Grans 1.80 % Normal [facility] Comment on above: Performed By: #### D RUG3 #### [facility] [address] [place], [place] [address] Lymphocytes (Bld) [#/Vol] 1.51 thou/cmm Normal 0.84-2.85 [facility] Comment on above: Performed By: #### D RUG3 #### [facility] [address] [place], [place] [address] Lymphocytes/100 WBC (Bld) 9.4 % Normal [facility] Comment on above: Performed By: #### D RUG3 #### [facility] [address] [place], [place] [address] Monocytes/100 WBC (Bld) 11.6 % Normal [facility] Comment on above: Performed By: #### D RUG3 #### [facility] [address] [place], [place] [address] Seg Neutrophil 75.3 % Normal [facility] Comment on above: Performed By: #### D RUG3 #### [facility] [address] [place], [place] [address] Erythrocyte distribution width (RBC) [Ratio] 13.1 % Normal 11.6-14.4 [facility] Comment on above: Performed By: #### D RUG3 #### [facility] [address] [place], [place] [address] Hematocrit (Bld) [Volume fraction] 43.8 % Normal 40.1-51.0 [facility] Comment on above: Performed By: #### D RUG3 #### [facility] [address] [place], [place] [address] Hemoglobin (Bld) [Mass/Vol] 14.3 g/dL Normal 13.7-17.5 [facility] Comment on above: Performed By: #### D RUG3 #### [facility] [address] [place], [place] [address] MCH (RBC) [Entitic mass] 32.6 pg High 25.7-32.2 [facility] Comment on above: Performed By: #### D RUG3 #### [facility] [address] [place], [place] [address] MCHC (RBC) [Mass/Vol] 32.6 % Normal 32.3-36.5 [facility] Comment on above: Performed By: #### Tamera RUG3 #### [facility] [address] [place], [place] [address] MCV (RBC) [Entitic vol] 99.8 fL High 83.2-95.6 [facility] Comment on above: Performed By: #### Tamera RUG3 #### [facility] [address] [place], [place] [address] Platelet mean volume (Bld) [Entitic vol] 9.5 fL Normal 8.7-12.0 [facility] Comment on above: Performed By: #### D RUG3 #### [facility] [address] [place], [place] [address] Platelets (Bld) [#/Vol] 231 thou/cmm Normal 141-365 [facility] Comment on above: Performed By: #### D RUG3 #### [facility] [address] [place], [place] [address] RBC (Bld) [#/Vol] 4.39 mil/cmm Low 4.63-6.08 [facility] Comment on above: Performed By: #### D RUG3 #### [facility] [address] [place], [place] [address] RDW SD 48.3 fl High 36.1-45.8 [facility] Comment on above: Performed By: #### D RUG3 #### [facility] [address] [place], [place] [address] WBC (Bld) [#/Vol] 16.11 thou/cmm High 4.23-9.07 [facility] Comment on above: Performed By: #### D RUG3 #### [facility] [address] [place], [place] [address] Ionized Calciumon 06-05-2019 Ionized Ca,PH7.4 4.22 mg/dL Low 4.61-5.17 [facility] Comment on above: Performed By: #### D RUG3 #### [facility] [address] [place] [address] pH (Bld) 7.390 [pH] Normal 7.320-7.430 [facility] Comment on above: Performed By: #### D RUG3 ####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 4.42 10*6/uL Low 4.50-5.90 [facility] Comment on above: Performed By: #### C BCDIF, UA, GBCHEM, GBTSH, HIV12, MG, PT, RPR ####[facility] Rka65220 [place] [address], [place] [phone] Erythrocytes (RBC) 0 /100 WBC Normal 0-0.9 [facility] Comment on above: Performed By: #### C BCDIF, UA, GBCHEM, GBTSH, HIV12, MG, PT, RPR ####[facility] Lvb84109 [address] [place] [address], [place] [phone] Hematocrit (HCT) 44.7 % Normal 41.0-53.0 [facility] Comment on above: Performed By: #### C BCDIF, UA, GBCHEM, GBTSH, HIV12, MG, PT, RPR ####[facility] Bsd95312 [address] [place] [address], [place] [phone] Hemoglobin mass conc (Bld) 15.2 g/dL Normal 13.5-17.5 [facility] Comment on above: Performed By: #### C BCDIF, UA, GBCHEM, GBTSH, HIV12, MG, PT, RPR ####[facility] Yxe09637 [address], [place] [phone] Immature Gran 0.20 % Normal 0-1.9 [facility] Comment on above: Performed By: #### C BCDIF, UA, GBCHEM, GBTSH, HIV12, MG, PT, RPR ####[facility] Tsa48266 [address], [place] [phone] Lymphocytes 2.03 10*3/uL Normal 1.0-4.0 [facility] Comment on above: Performed By: #### C BCDIF, UA, GBCHEM, GBTSH, HIV12, MG, PT, RPR ####[facility] Jxd34593 [place] [address], [place] [phone] Lymphocytes/100 leukocytes 23.1 % Normal 22-44 [facility] Comment on above: Performed By: #### C BCDIF, UA, GBCHEM, GBTSH, HIV12, MG, PT, RPR ####[facility] Qut48452 [address] [place] [address], [place] [phone] MCH 34.4 pG High 26-34 [facility] Comment on above: Performed By: #### C BCDIF, UA, GBCHEM, GBTSH, HIV12, MG, PT, RPR ####[facility] Vij13760 [place] [address], [place] [phone] MCHC mass conc (RBC) 34.0 g/dL Normal 31-37 [facility] Comment on above: Performed By: #### C BCDIF, UA, GBCHEM, GBTSH, HIV12, MG, PT, RPR ####[facility] Pkt32949 [place] [address], [place] [phone] MCV 101.1 fL High 80-100 [facility] Comment on above: Performed By: #### C BCDIF, UA, GBCHEM, GBTSH, HIV12, MG, PT, RPR ####[facility] Jii74588 [place] [address], [place] [phone] Monocytes/100 leukocytes 8.4 % Normal 4-12 [facility] Comment on above: Performed By: #### C BCDIF, UA, GBCHEM, GBTSH, HIV12, MG, PT, RPR ####[facility] Ucl08295 [place] [address], [place] [phone] Neutrophils/100 WBC Auto (Bld) 65.3 % Normal 40-70 [facility] Comment on above: Performed By: #### C BCDIF, UA, GBCHEM, GBTSH, HIV12, MG, PT, RPR ####[facility] Kmn23333 [place] [address], [place] [phone] Platelets 206 10*3/uL Normal 150-450 [facility] Comment on above: Performed By: #### C BCDIF, UA, GBCHEM, GBTSH, HIV12, MG, PT, RPR ####[facility] Vel04583 [place] [address], [place] [phone] WBC (Leukocytes) 8.80 10*3/uL Normal 4.5-11.0 [facility] Comment on above: Performed By: #### C BCDIF, UA, GBCHEM, GBTSH, HIV12, MG, PT, RPR ####[facility] Qab87658 [place] [address], [place] [phone] Chetna Loomis 2017 Alanine aminotransferase (ALT) 24 U/L Normal 21-72 [facility] Comment on above: Performed By: #### C BCDIF, UA, GBCHEM, GBTSH, HIV12, MG, PT, RPR ####[facility] Qgb17149 [place] [address], [place] [phone] Albumin 4.0 g/dL Normal 3.5-5.0 [facility] Comment on above: Performed By: #### C BCDIF, UA, GBCHEM, GBTSH, HIV12, MG, PT, RPR ####[facility] Csj66489 [place] [address], [place] [phone] Alkaline Phos 65 U/L Normal 38-125 [facility] Comment on above: Performed By: #### C BCDIF, UA, GBCHEM, GBTSH, HIV12, MG, PT, RPR ####[facility] Ddo66519 [place] [facility]Ath[facility] Hospitalrdon, [place] [phone] Amylase 69 U/L Normal 30-110 [facility] Comment on above: Performed By: #### C BCDIF, UA, GBCHEM, GBTSH, HIV12, MG, PT, RPR ####[facility] Zcx47339 [place] [address], [place] [phone] Anion gap 17 mmol/L High 0-15 [facility] Comment on above: Performed By: #### C BCDIF, UA, GBCHEM, GBTSH, HIV12, MG, PT, RPR ####[facility] Cti01124 [place] [address], [place] [phone] Aspartate aminotransferase (AST) 39 U/L Normal 17-59 [facility] Comment on above: Performed By: #### C BCDIF, UA, GBCHEM, GBTSH, HIV12, MG, PT, RPR ####[facility] Mkz14387 [place] [address], [place] [phone] Bilirubin Ql (U) 1.3 mg/dL Normal 0.2-1.3 [facility] Comment on above: Performed By: #### C BCDIF, UA, GBCHEM, GBTSH, HIV12, MG, PT, RPR ####[facility] Zpe29222 [place] [address], [place] [phone] Calcium 9.2 mg/dL Normal 8.4-10.2 [facility] Comment on above: Performed By: #### C BCDIF, UA, GBCHEM, GBTSH, HIV12, MG, PT, RPR ####[facility] Slr91350 [place] [address], [phone] Chloride 97 mmol/L Low 98-107 [facility] Comment on above: Performed By: #### C BCDIF, UA, GBCHEM, GBTSH, HIV12, MG, PT, RPR ####[facility] Sdj82186 [place] [address], [place] [phone] Cholesterol 156 mg/dL Normal 100-199 [facility] Comment on above: Performed By: #### C BCDIF, UA, GBCHEM, GBTSH, HIV12, MG, PT, RPR ####[facility] Ibp01209 [place] [address], [phone] CO2 25 mmol/L Normal 22-30 [facility] Comment on above: Performed By: #### C BCDIF, UA, GBCHEM, GBTSH, HIV12, MG, PT, RPR ####[facility] Cmq50063 [place] [facility], [phone] Creatinine 0.66 mg/dL Normal 0.66-1.25 [facility] Comment on above: Performed By: #### C BCDIF, UA, GBCHEM, GBTSH, HIV12, MG, PT, RPR ####[facility] Gic00457 [place] [address], [place] [phone] eGFR (non-black) mL/min/{1.73_m2} Normal >60 [facility] Comment on above: Performed By: #### C BCDIF, UA, GBCHEM, GBTSH, HIV12, MG, PT, RPR ####[facility] Nfh82708 [place] [address], [place] [phone] Result Comment: MDRD calculation used for eGFR results. GGT 540 U/L High 15-73 [facility] Comment on above: Performed By: #### C BCDIF, UA, GBCHEM, GBTSH, HIV12, MG, PT, RPR ####[facility] Mld95235 [place] [facility]Ath[facility] Hospitalrdon, [place] [phone] Glucose mass conc 149 mg/dL High 74-106 [facility] Comment on above: Performed By: #### C BCDIF, UA, GBCHEM, GBTSH, HIV12, MG, PT, RPR ####[facility] Kmm71618 [place] [facility] Hospitalrdon, [place] [phone] LDH 573 U/L Normal 318-618 [facility] Comment on above: Performed By: #### C BCDIF, UA, GBCHEM, GBTSH, HIV12, MG, PT, RPR ####[facility] Clb32721 [place] [facility] Hospitalrdon, [place] [phone] Phosphate 2.6 mg/dL Normal 2.5-4.5 [facility] Comment on above: Performed By: #### C BCDIF, UA, GBCHEM, GBTSH, HIV12, MG, PT, RPR ####[facility] Efn15324 [place] [facility]rdon, [place] [phone] Potassium molar conc 3.3 mmol/L Low 3.5-5.1 [facility] Comment on above: Performed By: #### C BCDIF, UA, GBCHEM, GBTSH, HIV12, MG, PT, RPR ####[facility] Snx02851 [place] [address], [place] [phone] Protein 6.7 g/dL Normal 6.2-8.2 [facility] Comment on above: Performed By: #### C BCDIF, UA, GBCHEM, GBTSH, HIV12, MG, PT, RPR ####[facility] Bzn37167 [place] [address], [place] [phone] Sodium 136 mmol/L Low 137-145 [facility] Comment on above: Performed By: #### C BCDIF, UA, GBCHEM, GBTSH, HIV12, MG, PT, RPR ####[facility] Cgv20590 [place] [facility]Ath[facility] Hospitalrdon, [place] [phone] Triglyceride 115 mg/dL Normal 35-150 [facility] Comment on above: Performed By: #### C BCDIF, UA, GBCHEM, GBTSH, HIV12, MG, PT, RPR ####[facility] Wpe82209 [facility], [phone] Urate 5.0 mg/dL Normal 3.5-8.5 [facility] Comment on above: Performed By: #### C BCDIF, UA, GBCHEM, GBTSH, HIV12, MG, PT, RPR ####[facility] [id number] [facility], [phone] Urea nitrogen 2 mg/dL Low 9-20 [facility] Comment on above: Performed By: #### C BCDIF, UA, GBCHEM, GBTSH, HIV12, MG, PT, RPR ####[facility] Sxe81899 [facility], [place] [phone] [facility] TSHon 10-26-2017 Thyroid stimulating hormone (TSH) 3.020 uU/mL Normal 0.465-4.680 [facility] Comment on above: Performed By: #### C BCDIF, UA, GBCHEM, GBTSH, HIV12, MG, PT, RPR ####[facility] [id number] [place] [address] [facility], [phone] HIV 1,2 Antibody EIAon 10-26 HIV 1,2 Antibody EIA Nonreactive Normal Nonreactive [facility] Comment on above: Performed By: #### C BCDIF, UA, GBCHEM, GBTSH, HIV12, MG, PT, RPR ####[facility] Vmh64460 [place], [place] [phone] Magnesiumon 10-26-2017 Magnesium 1.3 mg/dL Normal 1.3-2.3 [facility] Comment on above: Performed By: #### C BCDIF, UA, GBCHEM, GBTSH, HIV12, MG, PT, RPR ####[facility] Ank71296 [place], [place] [phone] Protimeon 10-26-2017 INR Coag RelTime (Bld) 1.1 {INR} Normal 0.6-1.1 [facility] Comment on above: Result Comment: The PT/INR [...] to 3.5 for older generation mechanical heart valves.Brandonell, et al. Chest 2004: 126:204S to 233S. Performed By: #### C BCDIF, UA, GBCHEM, GBTSH, HIV12, MG, PT, RPR ####[facility] Vkk55619 [place], [place] [phone] PT Sec 13.4 sec Normal 11.8-14.1 [facility] Comment on above: Performed By: #### C BCDIF, UA, GBCHEM, GBTSH, HIV12, MG, PT, RPR ####[facility] Kwx42201 [place], [place] [phone] Urinalysison 10-26-2017 Bilirubin (total) Negative Normal Negative [facility] Comment on above: Performed By: #### C BCDIF, UA, GBCHEM, GBTSH, HIV12, MG, PT, RPR ####[facility] Aan59665 [place] [address], [place] [phone] Cast SEE NOTES Normal 0 [facility] Comment on above: Result Comment: 0-2H yaline Cast Performed By: #### C BCDIF, UA, GBCHEM, GBTSH, HIV12, MG, PT, RPR ####[facility] Gic43696 [address] [place] [address], [place] [phone] Erythrocytes (RBC) 0-3 Normal 0-3 [facility] Comment on above: Performed By: #### C BCDIF, UA, GBCHEM, GBTSH, HIV12, MG, PT, RPR ####[facility] [id number] [address], [place] [phone] Glucose mass conc Negative Normal Negative [facility] Comment on above: Performed By: #### C BCDIF, UA, GBCHEM, GBTSH, HIV12, MG, PT, RPR ####[facility] Stm48725 [address], [place] [phone] Hemoglobin mass conc (Bld) Small Critically abnormal Negative [facility] Comment on above: Performed By: #### C BCDIF, UA, GBCHEM, GBTSH, HIV12, MG, PT, RPR ####[facility] Ryp78242 [address], [place] [phone] Ketone Negative Normal Negative [facility] Comment on above: Performed By: #### C BCDIF, UA, GBCHEM, GBTSH, HIV12, MG, PT, RPR ####[facility] Tod36011 [address], [place] [phone] Leukest Negative Normal Negative [facility] Comment on above: Performed By: #### C BCDIF, UA, GBCHEM, GBTSH, HIV12, MG, PT, RPR ####[facility] Dyq74239 [address], [place] [phone] Protein 30 mg/dl Critically abnormal Negative [facility] Comment on above: Performed By: #### C BCDIF, UA, GBCHEM, GBTSH, HIV12, MG, PT, RPR ####[facility] Aha14597 [address], [place] [phone] Urine Mynor Comment Many Normal [facility] Comment on above: Result Comment: MUCO US Performed By: #### C BCDIF, UA, GBCHEM, GBTSH, HIV12, MG, PT, RPR ####[facility] Mka64833 [address], [place] [phone] Urine Spec [place] 1.021 Normal 1.005-1.030 [facility] Comment on above: Performed By: #### C BCDIF, UA, GBCHEM, GBTSH, HIV12, MG, PT, RPR ####[facility] Dqx77936 [facility], [place] [phone] Urine, clarity Clear Normal Clear [facility] Comment on above: Performed By: #### C BCDIF, UA, GBCHEM, GBTSH, HIV12, MG, PT, RPR ####[facility] Esb37014 [address], [place] [phone] Urine, color Sera Critically abnormal Yellow [facility] Comment on above: Performed By: #### C BCDIF, UA, GBCHEM, GBTSH, HIV12, MG, PT, RPR ####[facility] Ibg79585 [address], [place] [phone] Urine, crystals in sediment SEE NOTES Normal 0 [facility] Comment on above: Result Comment: FewC alcium Oxalate Crystal Performed By: #### C BCDIF, UA, GBCHEM, GBTSH, HIV12, MG, PT, RPR ####[facility] [id number], [place] [phone] Urine, epithelial cells in sediment Few Normal [facility] Comment on above: Result Comment: Squa mous Epithelial Cells Performed By: #### C BCDIF, UA, GBCHEM, GBTSH, HIV12, MG, PT, RPR ####[facility] [id number], [place] [phone] Urine, nitrite presence Negative Normal Negative [facility] Comment on above: Performed By: #### C BCDIF, UA, GBCHEM, GBTSH, HIV12, MG, PT, RPR ####[facility] [id number], [place] [phone] Urine, pH 6.0 [pH] Normal 5-7 [facility] Comment on above: Performed By: #### C BCDIF, UA, GBCHEM, GBTSH, HIV12, MG, PT, RPR ####[facility] [id number], [place] [phone] Urine, urobilinogen 2.0 mg/dl High 0.0-1.0 [facility] Comment on above: Performed By: #### C BCDIF, UA, GBCHEM, GBTSH, HIV12, MG, PT, RPR ####[facility] [id number], [place] [phone] WBC (Leukocytes) 0-5 Normal 0-5 [facility] Comment on above: Performed By: #### C BCDIF, UA, GBCHEM, GBTSH, HIV12, MG, PT, RPR ####[facility] [id number], [place] [phone] Vital Signs Date Time Vital Sign Value Performing Clinician Facility 01-23-2025 08:50-0400 Body mass index (BMI) [Ratio] 36.32 kg/m2 Shira Cheatham APRN.CONTENT ENGINEER Work Phone: [facility] 01-23-2025 08:50-0400 Body weight 108.95 kg Shira Cheatham APRN.CONTENT ENGINEER Work Phone: [facility] 01-23-2025 08:50-0400 Diastolic blood pressure 78 mm[Hg] Shira Cheatham APRN.CONTENT ENGINEER Work Phone: [facility] 01-23-2025 08:50-0400 Heart rate 93 /min Shira Podlogar USED EQUIPMENT SALES REPRESENTATIVE.CONTENT ENGINEER Work Phone: [facility] 01-23-2025 08:50-0400 Respiratory rate 20 /min Shira Podlogar USED EQUIPMENT SALES REPRESENTATIVE.CONTENT ENGINEER Work Phone: [facility] 01-23-2025 08:50-0400 SaO2% (BldA) [Mass fraction] 97 % Shira Podlogar USED EQUIPMENT SALES REPRESENTATIVE.CONTENT ENGINEER Work Phone: [facility] 01-23-2025 08:50-0400 Systolic blood pressure 108 mm[Hg] Shira Podlogar USED EQUIPMENT SALES REPRESENTATIVE.CONTENT ENGINEER Work Phone: [facility] 01-15-2025 08:00-0400 Body temperature 98 [degF] Dr. Vasu Blackwell MD Work Phone: [facility] 01-15-2025 08:00-0400 Body weight 107.[address] Vasu Blackwell MD Work Phone: [facility] 01-15-2025 08:00-0400 Diastolic blood pressure 80 mm[Hg] Dr. Vasu Blackwell MD Work Phone: [facility] 01-15-2025 08:00-0400 Heart rate 84 /min Dr. Vasu Blackwell MD Work Phone: [facility] 01-15-2025 08:00-0400 Respiratory rate 17 /min Dr. Vasu Blackwell MD Work Phone: [facility] 01-15-2025 08:00-0400 SaO2% (BldA) [Mass fraction] 98 % Dr. Vasu Blackwell MD Work Phone: [facility] 01-15-2025 08:00-0400 Systolic blood pressure 119 mm[Hg] Dr. Vasu Blackwell MD Work Phone: [facility] 01-01-2025 08:01-0400 Body height 175.[address] Vasu Blackwell MD Work Phone: [facility] 01-01-2025 08:01-0400 Body mass index (BMI) [Ratio] 34.9 kg/m2 Dr. Vasu Blackwell MD Work Phone: [facility] 01-01-2025 08:01-0400 Body temperature 97.8 [degF] Dr. Vasu Blackwell MD Work Phone: [facility] 01-01-2025 08:01-0400 Body weight 107.[address] Vasu Blackwell MD Work Phone: [facility] 01-01-2025 08:01-0400 Diastolic blood pressure 63 mm[Hg] Dr. Vasu Blackwell MD Work Phone: [facility] 01-01-2025 08:01-0400 Heart rate 97 /min Dr. Vasu Blackwell MD Work Phone: [facility] 01-01-2025 08:01-0400 Respiratory rate 15 /min Dr. Vasu Blackwell MD Work Phone: [facility] 01-01-2025 08:01-0400 SaO2% (BldA) [Mass fraction] 99 % Dr. Vasu Blackwell MD Work Phone: [facility] 01-01-2025 08:01-0400 Systolic blood pressure 93 mm[Hg] Dr. Vasu Blackwell MD Work Phone: [facility] 09-30-2024 08:04-0500 Body mass index (BMI) [Ratio] 34 kg/m2 Dr. Vasu Blackwell MD Work Phone: [facility] 09-30-2024 08:04-0500 Body temperature 97.7 [degF] Dr. Vasu Blackwell MD Work Phone: [facility] 09-30-2024 08:04-0500 Body weight 104.[address] Vasu Blackwell MD Work Phone: [facility] 09-30-2024 08:04-0500 Diastolic blood pressure 62 mm[Hg] Dr. Vasu Blackwell MD Work Phone: [facility] 09-30-2024 08:04-0500 Heart rate 95 /min Dr. Vasu Blackwell MD Work Phone: [facility] 09-30-2024 08:04-0500 Respiratory rate 15 /min Dr. Vasu Blackwell MD Work Phone: [facility] 09-30-2024 08:04-0500 SaO2% (BldA) [Mass fraction] 99 % Dr. Vasu Blackwell MD Work Phone: [facility] 09-30-2024 08:04-0500 Systolic blood pressure 108 mm[Hg] Dr. Vasu Blackwell MD Work Phone: [facility] 07-28-2024 13:31-0500 Body height 173.2 cm Alexandro Monterroso USED EQUIPMENT SALES REPRESENTATIVE.CONTENT ENGINEER Work Phone: [facility] 07-28-2024 13:31-0500 Body mass index (BMI) [Ratio] 32.96 kg/m2 Alexandro Monterroso USED EQUIPMENT SALES REPRESENTATIVE.CONTENT ENGINEER Work Phone: [facility] 07-28-2024 13:31-0500 Body weight 98.88 kg Alexandro Monterroso USED EQUIPMENT SALES REPRESENTATIVE.CONTENT ENGINEER Work Phone: [facility] 07-28-2024 13:31-0500 Heart rate 85 /min Alexandro Troy USED EQUIPMENT SALES REPRESENTATIVE.CONTENT ENGINEER Work Phone: [facility] 07-28-2024 13:31-0500 Respiratory rate 12 /min Alexandro Troy USED EQUIPMENT SALES REPRESENTATIVE.CONTENT ENGINEER Work Phone: [facility] 07-28-2024 13:31-0500 SaO2% (BldA) [Mass fraction] 96 % Alexandro Monterroso APRN.CONTENT ENGINEER Work Phone: [facility] 07-28-2024 11:21-0500 Body height 173.2 cm Pulm Wstr Work Phone: [facility] 07-28-2024 11:21-0500 Body mass index (BMI) [Ratio] 32.96 kg/m2 Pulm Wstr Work Phone: [facility] 07-28-2024 11:21-0500 Body weight 98.88 kg Pulm Wstr Work Phone: [facility] 07-28-2024 11:21-0500 Heart rate 85 /min Pulm Wstr Work Phone: [facility] 07-28-2024 11:21-0500 Respiratory rate 12 /min Pulm Wstr Work Phone: [facility] 07-28-2024 11:21-0500 SaO2% (BldA) [Mass fraction] 96 % Pulm Wstr Work Phone: [facility] 07-23-2024 08:47-0500 Body mass index (BMI) [Ratio] 31.6 kg/m2 Waldo Galo MD Work Phone: [facility] 07-23-2024 08:47-0500 Body weight 99.88 kg Waldo Galo MD Work Phone: [facility] 07-23-2024 08:47-0500 Diastolic blood pressure 66 mm[Hg] Waldo Galo MD Work Phone: [facility] 07-23-2024 08:47-0500 Heart rate 84 /min Waldo Galo MD Work Phone: [facility] 07-23-2024 08:47-0500 Respiratory rate 16 /min Waldo Galo MD Work Phone: [facility] 07-23-2024 08:47-0500 SaO2% (BldA) [Mass fraction] 94 % Waldo Galo MD Work Phone: [facility] 07-23-2024 08:47-0500 Systolic blood pressure 110 mm[Hg] Waldo Galo MD Work Phone: [facility] 06-26-2024 07:30-0500 Body mass index (BMI) [Ratio] 31.32 kg/m2 Shira Podlogar USED EQUIPMENT SALES REPRESENTATIVE.CONTENT ENGINEER Work Phone: [facility] 06-26-2024 07:30-0500 Body weight 99 kg Shira Podlogar USED EQUIPMENT SALES REPRESENTATIVE.CONTENT ENGINEER Work Phone: [facility] 06-26-2024 07:30-0500 Diastolic blood pressure 76 mm[Hg] Shira Podlogar USED EQUIPMENT SALES REPRESENTATIVE.CONTENT ENGINEER Work Phone: [facility] 06-26-2024 07:30-0500 Heart rate 74 /min Shira Podlogar USED EQUIPMENT SALES REPRESENTATIVE.CONTENT ENGINEER Work Phone: [facility] 06-26-2024 07:30-0500 Respiratory rate 16 /min Shira Podlogar USED EQUIPMENT SALES REPRESENTATIVE.CONTENT ENGINEER Work Phone: [facility] 06-26-2024 07:30-0500 Systolic blood pressure 114 mm[Hg] Shira Podlogar USED EQUIPMENT SALES REPRESENTATIVE.CONTENT ENGINEER Work Phone: [facility] 04-09-2024 11:10-0400 Body mass index (BMI) [Ratio] 29.24 kg/m2 Waldo Galo MD Work Phone: [facility] 04-09-2024 11:10-0400 Body temperature 96.91 [degF] Waldo Galo MD Work Phone: [facility] 04-09-2024 11:10-0400 Body weight 92.44 kg Waldo Galo MD Work Phone: [facility] 04-09-2024 11:10-0400 Diastolic blood pressure 78 mm[Hg] Waldo Galo MD Work Phone: [facility] 04-09-2024 11:10-0400 Heart rate 77 /min Waldo Galo MD Work Phone: [facility] 04-09-2024 11:10-0400 Respiratory rate 16 /min Waldo Galo MD Work Phone: [facility] 04-09-2024 11:10-0400 SaO2% (BldA) [Mass fraction] 97 % Waldo Galo MD Work Phone: [facility] 04-09-2024 11:10-0400 Systolic blood pressure 104 mm[Hg] Waldo Galo MD Work Phone: [facility] 01-08-2024 00:34-0400 Blood Pressure Method TYRELL CASTANON MD [facility] 01-08-2024 00:34-0400 Diastolic Blood Pressure Non-Invasive 85 mm[Hg] TYRELL CASTANON MD [facility] 01-08-2024 00:34-0400 Heart rate 82 /min TYRELL CASTANON MD [facility] 01-08-2024 00:34-0400 Reason For Taking VItal Signs TYRELL CASTANON MD [facility] 01-08-2024 00:34-0400 Respiratory rate 16 /min TYRELL ACSTANON MD [facility] 01-08-2024 00:34-0400 Systolic Blood Pressure Non-Invasive 124 mm[Hg] TYRELL CASTANON MD [facility] 01-07-2024 21:21-0400 Diastolic Blood Pressure Non-Invasive 103 mm[Hg] TYRELL CASTANON MD [facility] 01-07-2024 21:21-0400 Heart rate 89 /min TYRELL CASTANON MD [facility] 01-07-2024 21:21-0400 Respiratory rate 18 /min TYRELL CASTANON MD [facility] 01-07-2024 21:21-0400 Systolic Blood Pressure Non-Invasive 146 mm[Hg] TYRELL CASTANON MD [facility] 01-07-2024 18:41-0400 Blood Pressure Location TYRELL CASTANON MD [facility] 01-07-2024 18:41-0400 Blood Pressure Method TYRELL CASTANON MD [facility] 01-07-2024 18:41-0400 Body temperature 98.06 [degF] TYRELL CASTANON MD [facility] 01-07-2024 18:41-0400 Diastolic Blood Pressure Non-Invasive 91 mm[Hg] TYRELL CASTANON MD [facility] 01-07-2024 18:41-0400 Heart rate 94 /min TYRELL CASTANON MD [facility] 01-07-2024 18:41-0400 Respiratory rate 18 /min TYRELL CASTANON MD [facility] 01-07-2024 18:41-0400 Systolic Blood Pressure Non-Invasive 125 mm[Hg] TYRELL CASTANON MD [facility] 01-07-2024 18:11-0400 Blood Pressure Location TYRELL CASTANON MD [facility] 01-07-2024 18:11-0400 Blood Pressure Method TYRELL CASTANON MD [facility] 01-07-2024 18:11-0400 Body temperature 98.06 [degF] TYRELL CASTANON MD [facility] 01-07-2024 17:41-0400 Blood Pressure Location TYRELL CASTANON MD [facility] 01-07-2024 17:41-0400 Body temperature 98.42 [degF] TYRELL CASTANON MD [facility] 10-15-2023 08:16-0500 Body height 177.[address] Vasu Blackwell Work Phone: [facility] 10-15-2023 08:16-0500 Body mass index (BMI) [Ratio] 27.6 kg/m2 Dr. Vasu Blackwell Work Phone: [facility] 10-15-2023 08:16-0500 Body temperature 98.4 [degF] Dr. Vasu Blackwell Work Phone: [facility] 10-15-2023 08:16-0500 Body weight 87.[address] Vasu Blackwell Work Phone: [facility] 10-15-2023 08:16-0500 Diastolic blood pressure 78 mm[Hg] Dr. Vasu Blackwell Work Phone: [facility] 10-15-2023 08:16-0500 Heart rate 95 /min Dr. Vasu Blackwell Work Phone: [facility] 10-15-2023 08:16-0500 Respiratory rate 17 /min Dr. Vasu Blackwell Work Phone: [facility] 10-15-2023 08:16-0500 SaO2% (BldA) [Mass fraction] 99 % Dr. Vasu Blackwell Work Phone: [facility] 10-15-2023 08:16-0500 Systolic blood pressure 130 mm[Hg] Dr. Vasu Blackwell Work Phone: [facility] 09-24-2023 14:16-0500 Body height 180.[address] Vasu Blackwell Work Phone: [facility] 09-24-2023 14:16-0500 Body mass index (BMI) [Ratio] 26.9 kg/m2 Dr. Vasu Blackwell Work Phone: [facility] 09-24-2023 14:16-0500 Body temperature 97.4 [degF] Dr. Vasu Blackwell Work Phone: [facility] 09-24-2023 14:16-0500 Body weight 87.[address] Vasu Blackwell Work Phone: [facility] 09-24-2023 14:16-0500 Diastolic blood pressure 74 mm[Hg] Dr. Vasu Blackwell Work Phone: [facility] 09-24-2023 14:16-0500 Heart rate 54 /min Dr. Vasu Blackwell Work Phone: [facility] 09-24-2023 14:16-0500 Respiratory rate 16 /min Dr. Vasu Blackwell Work Phone: [facility] 09-24-2023 14:16-0500 SaO2% (BldA) [Mass fraction] 99 % Dr. Vasu Blackwell Work Phone: [facility] 09-24-2023 14:16-0500 Systolic blood pressure 120 mm[Hg] Dr. Vasu Blackwell Work Phone: [facility] 06-20-2023 14:11-0400 Body temperature 97.4 [degF] Dr. Vasu Blackwell Work Phone: [facility] 06-20-2023 14:11-0400 Diastolic blood pressure 86 mm[Hg] Dr. Vasu Blackwell Work Phone: [facility] 06-20-2023 14:11-0400 Heart rate 79 /min Dr. Vasu Blackwell Work Phone: [facility] 06-20-2023 14:11-0400 Respiratory rate 18 /min Dr. Vasu Blackwell Work Phone: [facility] 06-20-2023 14:11-0400 SaO2% (BldA) [Mass fraction] 100 % Dr. Vasu Blackwell Work Phone: [facility] 06-20-2023 14:11-0400 Systolic blood pressure 138 mm[Hg] Dr. Vasu Blackwell Work Phone: [facility] 06-16-2023 15:24-0400 Body height 180.[address] Vasu Blackwell Work Phone: [facility] 06-16-2023 15:24-0400 Body mass index (BMI) [Ratio] 27.3 kg/m2 Dr. Vasu Blackwell Work Phone: [facility] 06-16-2023 15:24-0400 Body weight 89.[address] Vasu Blackwell Work Phone: [facility] 06-16-2023 15:24-0400 Diastolic blood pressure 77 mm[Hg] Dr. Vasu Blackwell Work Phone: [facility] 06-16-2023 15:24-0400 Systolic blood pressure 140 mm[Hg] Dr. Vasu Blackwell Work Phone: [facility] 06-16-2023 14:12-0400 Heart rate 114 /min Dr. Vasu Blackwell Work Phone: [facility] 06-16-2023 14:12-0400 Respiratory rate 22 /min Dr. Vasu Blackwell Work Phone: [facility] 06-16-2023 14:12-0400 SaO2% (BldA) [Mass fraction] 99 % Dr. Vasu Blackwell Work Phone: [facility] 06-16-2023 12:13-0400 Body temperature 98.6 [degF] Dr. Vasu Blackwell Work Phone: [facility] 06-16-2023 12:08-0400 Body height 177.[address] Vasu Blackwell Work Phone: [facility] 06-16-2023 12:08-0400 Body mass index (BMI) [Ratio] 28.7 kg/m2 Dr. Vasu Blackwell Work Phone: [facility] 06-16-2023 12:08-0400 Body weight 90.[address] Vasu Blackwell Work Phone: [facility] 05-31-2023 08:59-0400 Body height 177.[address] Vasu Blackwell Work Phone: [facility] 05-31-2023 08:59-0400 Body mass index (BMI) [Ratio] 28.5 kg/m2 Dr. Vasu Blackwell Work Phone: [facility] 05-31-2023 08:59-0400 Body temperature 98.2 [degF] Dr. Vasu Blackwell Work Phone: [facility] 05-31-2023 08:59-0400 Body weight 90.[address] Vasu Blackwell Work Phone: [facility] 05-31-2023 08:59-0400 Diastolic blood pressure 90 mm[Hg] Dr. Vasu Blackwell Work Phone: [facility] 05-31-2023 08:59-0400 Heart rate 100 /min Dr. Vasu Blackwell Work Phone: [facility] 05-31-2023 08:59-0400 Respiratory rate 17 /min Dr. Vasu Blackwell Work Phone: [facility] 05-31-2023 08:59-0400 SaO2% (BldA) [Mass fraction] 95 % Dr. Vasu Blackwell Work Phone: [facility] 05-31-2023 08:59-0400 Systolic blood pressure 140 mm[Hg] Dr. Vasu Blackwell Work Phone: [facility] 05-28-2023 09:53-0400 Body mass index (BMI) [Ratio] 28.7 kg/m2 Dr. Vasu Blackwell Work Phone: [facility] 05-28-2023 09:53-0400 Body temperature 97.2 [degF] Dr. Vasu Blackwell Work Phone: [facility] 05-28-2023 09:53-0400 Body weight 90.[address] Vasu Blackwell Work Phone: [facility] 05-28-2023 09:53-0400 Diastolic blood pressure 82 mm[Hg] Dr. Vasu Blackwell Work Phone: [facility] 05-28-2023 09:53-0400 Heart rate 106 /min Dr. Vasu Blackwell Work Phone: [facility] 05-28-2023 09:53-0400 Respiratory rate 16 /min Dr. Vasu Blackwell Work Phone: [facility] 05-28-2023 09:53-0400 SaO2% (BldA) [Mass fraction] 97 % Dr. Vasu Blackwell Work Phone: [facility] 05-28-2023 09:53-0400 Systolic blood pressure 150 mm[Hg] Dr. Vasu Blackwell Work Phone: [facility] 02-21-2022 15:14-0400 Body mass index (BMI) [Ratio] Patient Reason Not Done Referring Provider Unknown US-Yrsspirsz-HKLV Chayo Fang 5 Work Phone: 02-21-2022 15:14-0400 Diastolic blood pressure 77 mm[Hg] Referring Provider Unknown IL-Xpgwfweyn-RPPX C Bolwell 5 Work Phone: 02-21-2022 15:14-0400 Heart rate 72 /min Referring Provider Unknown MN-Volyrtakh-ALIR C Bolwell 5 Work Phone: 02-21-2022 15:14-0400 Respiratory rate 19 /min Referring Provider Unknown SA-Ccyjhwtdn-NNYC C Bolwell 5 Work Phone: 02-21-2022 15:14-0400 SaO2% (BldA) [Mass fraction] 98 % Referring Provider Unknown MO-Lilwzvvmp-CLAC C Bolwell 5 Work Phone: 02-21-2022 15:14-0400 Systolic blood pressure 117 mm[Hg] Referring Provider Unknown RQ-Lzguxwpyn-COAC C Bolwell 5 Work Phone: 12-30-2021 22:28-0400 Respiratory rate 16 /min Dr. Vasu Blackwell Work Phone: [facility] Work Phone: 12-30-2021 17:48-0400 Body height 177.[address] Vasu Blackwell Work Phone: [facility] Work Phone: 12-30-2021 17:48-0400 Body mass index (BMI) [Ratio] 29.2 kg/m2 Dr. Vasu Blackwell Work Phone: [facility] Work Phone: 12-30-2021 17:48-0400 Body temperature 98.1 [degF] Dr. Vasu Blackwell Work Phone: [facility] Work Phone: 12-30-2021 17:48-0400 Body weight 92.[address] Vasu Blackwell Work Phone: [facility] Work Phone: 12-30-2021 17:48-0400 Diastolic blood pressure 83 mm[Hg] Dr. Vasu Blackwell Work Phone: [facility] Work Phone: 12-30-2021 17:48-0400 Heart rate 86 /min Dr. Vasu Blackwell Work Phone: [facility] Work Phone: 12-30-2021 17:48-0400 SaO2% (BldA) [Mass fraction] 98 % Dr. Vasu Blackwell Work Phone: [facility] Work Phone: 12-30-2021 17:48-0400 Systolic blood pressure 117 mm[Hg] Dr. Vasu Blackwell Work Phone: [facility] Work Phone: 12-30-2021 10:00-0400 Body mass index (BMI) [Ratio] 28.8 kg/m2 Dr. Vasu Blackwell Work Phone: [facility] Work Phone: 12-30-2021 10:00-0400 Body temperature 96.5 [degF] Dr. Vasu Blackwell Work Phone: [facility] Work Phone: 12-30-2021 10:00-0400 Body weight 91.[address] Vasu Blackwell Work Phone: [facility] Work Phone: 12-30-2021 10:00-0400 Diastolic blood pressure 70 mm[Hg] Dr. Vasu Blackwell Work Phone: [facility] Work Phone: 12-30-2021 10:00-0400 Heart rate 91 /min Dr. Vasu Blackwell Work Phone: [facility] Work Phone: 12-30-2021 10:00-0400 Systolic blood pressure 110 mm[Hg] Dr. Vasu Blackwell Work Phone: [facility] Work Phone: 10-26-2021 07:16-0500 Body mass index (BMI) [Ratio] 30.2 kg/m2 Dr. Vasu Blackwell Work Phone: [facility] Work Phone: 10-26-2021 07:16-0500 Body temperature 97.9 [degF] Dr. Vasu Blackwell Work Phone: [facility] Work Phone: 10-26-2021 07:16-0500 Body weight 95.[address] Vasu Blackwell Work Phone: [facility] Work Phone: 10-26-2021 07:16-0500 Diastolic blood pressure 84 mm[Hg] Dr. Vasu Blackwell Work Phone: [facility] Work Phone: 10-26-2021 07:16-0500 Heart rate 80 /min Dr. Vasu Blackwell Work Phone: [facility] Work Phone: 10-26-2021 07:16-0500 Respiratory rate 14 /min Dr. Vasu Blackwell Work Phone: [facility] Work Phone: 10-26-2021 07:16-0500 SaO2% (BldA) [Mass fraction] 98 % Dr. Vasu Blackwell Work Phone: [facility] Work Phone: 10-26-2021 07:16-0500 Systolic blood pressure 120 mm[Hg] Dr. Vasu Blackwell Work Phone: [facility] Work Phone: 06-16-2019 09:14-0400 Body weight 170.4 LB/KG [facility] Comment on above: Performed By: #### PT #### [facility] [address] [place] [address] 06-13-2019 14:46-0400 Body temperature 35.8 Deg Haley [facility] Comment on above: Performed By: #### PT #### [facility] [address] [address] 06-11-2019 17:57-0400 Body temperature 37.0 Deg Haley [facility] Comment on above: Performed By: #### ABG ####[facility] [place] [address] 06-10-2019 06:45-0400 Body temperature 37.0 Deg Haley [facility] Comment on above: Performed By: #### LILLIANA #### [facility] [address] [address] 06-07-2019 19:56-0400 Body temperature 37.0 Deg Haley [facility] Comment on above: Performed By: #### LILLIANA #### [facility] [address] [address] 06-07-2019 12:56-0400 Body temperature 37.0 Deg Haley [facility] Comment on above: Performed By: #### LILLIANA #### [facility] [address] [address] 06-07-2019 10:24-0400 Body temperature 37.0 Deg Haley [facility] Comment on above: Performed By: #### LILLIANA #### [facility] [address] [address] Encounters Encounter Date Encounter Type Care Provider Facility Start: 02-19-2025 ambulatory Miguel Dorman lity:[facility] Start: 02-05-2025 End: 02-05-[address] Vasu Blackwell MD Work Phone: [facility] Work Phone: Start: 02-05-2025 End: 02-05-[address] Errol Moore MD [facility] Work Phone: Start: 02-05-2025 End: 02-05-2025 ambulatory [facility] Facility:[facility] Start: 01-29-2025 End: 01-29-[address] Vasu Blackwell MD Work Phone: [facility] Work Phone: Start: 01-29-2025 End: 01-29-[address] Errol Moore MD -Pulmonary Services/Neurology Work Phone: Start: 01-29-2025 End: 01-29-2025 ambulatory [facility] Facility:[facility] Start: 01-23-2025 End: 01-23-2025 Patient encounter procedure Shira Cheatham APRN.CNP Work Phone: [facility] Comment on above: Primary hypertension (Primary Dx); Other hyperlipidemia; Tobacco use; Screening for colon cancer; Tobacco use disorder; Bipolar affective disorder, remission status unspecified (HCC); Marijuana use; Nonintractable epilepsy without status epilepticus, unspecified epilepsy type (HCC); Alcoholism in remission (HCC); Gastroesophageal reflux disease without esophagitis Start: 01-23-2025 End: 01-23-2025 ambulatory SHIRA CHEATHAM Facility:[facility] Start: 01-19-2025 End: 01-22-2025 Telephone encounter Neurology Provider Neurology Comment on above: Received Outside [facility] Records (External referral to [facility] [place]/) Start: 01-15-2025 End: 01-15-[address] Errol Moore MD -[facility] Work Phone: Start: 01-15-2025 End: 01-15-[address] Vasu Blackwell MD Work Phone: [facility] Work Phone: Start: 01-01-2025 End: 01-01-2025 Patient encounter procedure Marta FOX -[facility] Work Phone: Start: 01-01-2025 End: 01-01-[address] Vasu Blackwell MD Work Phone: [facility] Work Phone: Start: 11-10-2024 End: 11-10-2024 Refill Waldo Galo MD Work Phone: [facility] Comment on above: Refill Request Start: 10-02-2024 End: 10-02-[address] Errol Moore MD -Laboratory Work Phone: Start: 10-02-2024 End: 10-02-2024 ambulatory [facility] Facility:[facility] Start: 09-30-2024 End: 09-30-[address] Errol Moore MD -[facility] Work Phone: Start: 09-30-2024 End: 09-30-2024 ambulatory [facility] Facility[facility] Start: 08-14-2024 End: 08-14-2024 Orders Only Alexandro Monterroso USED EQUIPMENT SALES REPRESENTATIVE.CONTENT ENGINEER Work Phone: Pulmonary Medicine Comment on above: Encounter for screen ing for lung cancer (Primary Dx); Tobacco use Start: 08-12-2024 End: 08-12-2024 ambulatory ALEXANDRO MONTERROSO Facility:[facility] Start: 08-12-2024 End: 08-12-2024 Subsequent hospital visit by physician [facility] ([facility]) Work Phone: Cat Scan Comment on above: Encounter for screen ing for lung cancer [Z12.2] Start: 07-28-2024 End: 07-28-2024 ambulatory Pulm Lab [facility] Work Phone: PULM LAB [facility] Comment on above: Spirometry Start: 07-28-2024 End: 07-28-2024 Patient encounter procedure Pulm Lab [facility] Work Phone: PULM LAB [facility] Comment on above: Encounter for screen ing for lung cancer (Primary Dx); Tobacco use Start: 07-23-2024 End: 07-23-2024 ambulatory WALDO GALO Facility:[facility] Start: 07-23-2024 End: 07-23-2024 Patient encounter procedure Waldo Galo MD Work Phone: [facility] Comment on above: Persistent cough (Pr imary Dx); Wheezing; Tobacco use; Primary hypertension; Other hyperlipidemia; Bipolar affective disorder, remission status unspecified (HCC); Depression with anxiety Start: 07-18-2024 End: 07-18-2024 Refill Waldo Galo MD Work Phone: [facility] Comment on above: Refill Request Start: 07-03-2024 End: 07-03-2024 ambulatory [facility] Facility:[facility] Start: 06-26-2024 End: 06-27-2024 Telephone encounter Waldo Galo MD Work Phone: [facility] Comment on above: fax order to [facility] Start: 06-26-2024 End: 06-26-2024 ambulatory SHIRA PODLOGAR Facility:[facility] Start: 06-26-2024 End: 06-26-2024 Patient encounter procedure Shira Cheatham APRN.CNP Work Phone: [facility] Comment on above: Bilateral leg edema (Primary Dx); Primary hypertension; Alcohol abuse; Elevated liver enzymes Start: 06-14-2024 [facility] Start: 06-14-2024 End: 06-18-2024 Evaluation and management of inpatient Reza Price Facility:[facility] Start: 06-10-2024 ambulatory [facility] Facility: [facility] Start: 04-11-2024 End: 04-11-2024 Telephone encounter Waldo Galo MD Work Phone: [facility] Comment on above: Results Start: 04-09-2024 End: 04-09-2024 ambulatory WALDO GALO Facility:[facility] Start: 04-09-2024 Encounter for genera l adult medical examination without abnormal findings WALDO GALO [facility] Start: 04-09-2024 End: 04-09-2024 Patient encounter procedure Waldo Galo MD Work Phone: Family [facility] Comment on above: Encounter for medica l examination to establish care (Primary Dx); Diarrhea, unspecified type; Alcohol abuse; Depression with anxiety; Bipolar affective disorder, remission status unspecified (HCC); Primary hypertension; Screening for colon cancer; Marijuana use; History of traumatic brain injury; Nonintractable epilepsy without status epilepticus, unspecified epilepsy type (HCC) Start: 04-09-2024 End: 04-09-2024 Patient encounter status Waldo Galo MD Work Phone: [facility] Work Phone: Start: 04-09-2024 End: 04-09-2024 ambulatory WALDO GALO Facility:[facility] Start: 04-06-2024 End: 04-06-2024 Letter encounter [facility] Start: 03-07-2024 End: 03-07-2024 ambulatory [facility] Facility:[facility] Start: 03-03-2024 ambulatory [facility] Facility: [facility] Start: 01-07-2024 End: 01-08-2024 Emergency department patient visit JOHN LUJAN DO Facility:[facility] Start: 01-07-2024 End: 01-08-2024 Emergency department patient visit TYRELL CASTANON MD [facility] Start: 12-30-2023 Letter encounter Debra vega Start: 11-08-2023 End: 11-08-[address] Vasu Blackwell Work Phone: [facility] Work Phone: Start: 11-08-2023 End: 11-08-[address] Vasu Blackwell Work Phone: [facility]-Sleep Lab Work Phone: Start: 10-15-2023 End: 10-15-[address] Vasu Blackwell Work Phone: [facility] Neu[facility] Work Phone: Start: 09-25-2023 End: 09-25-[address] Vasu Blackwell Work Phone: [facility] Work Phone: Start: 09-25-2023 End: 09-25-[address] Vasu Blackwell Work Phone: [facility]-Laboratory, Specimen Work Phone: Start: 09-25-2023 Non-patient / Non-visit Dr. Ada Blackwell Work Phone: [facility] Start: 09-24-2023 End: 09-24-[address] Vasu Blackwell Work Phone: [facility] Work Phone: Start: 09-24-2023 End: 09-24-[address] Vasu Blackwell Work Phone: [facility] Internal Medicine Work Phone: Start: 09-13-2023 End: 09-13-[address] Vasu Blackwell Work Phone: [facility] Work Phone: Start: 09-13-2023 End: 09-13-[address] Vasu Blackwell Work Phone: [facility] Work Phone: Start: 06-20-2023 Non-patient / Non-visit Dr. Ada Blackwell Work Phone: [facility] Work Phone: Start: 06-19-2023 Non-patient / Non-visit Dr. Ada Blackwell Work Phone: [facility] Work Phone: Start: 06-18-2023 Non-patient / Non-visit Dr. Ada Blackwell Work Phone: [facility] Work Phone: Start: 06-17-2023 Non-patient / Non-visit Dr. Ada Blackwell Work Phone: [facility] Work Phone: Start: 06-16-2023 Non-patient / Non-visit Dr. Ada Blackwell Work Phone: [facility] Work Phone: Start: 06-16-2023 End: 06-20-2023 Evaluation and management of inpatient Dr. Vasu Blackwell Work Phone: [facility]-Medical Surgical 3 Work Phone: Start: 06-08-2023 End: 06-08-[address] Vasu Blackwell Work Phone: [facility] Work Phone: Start: 06-08-2023 End: 06-08-[address] Vasu Blackwell Work Phone: [facility]-Pulmonary Services/Neurology Work Phone: Start: 05-31-2023 End: 05-31-[address] Vasu Blackwell Work Phone: [facility] Neu[facility] Work Phone: Start: 05-28-2023 End: 05-28-[address] Vasu Blackwell Work Phone: [facility] Work Phone: Start: 05-28-2023 End: 05-28-[address] Vasu Blackwell Work Phone: [facility] Internal Medicine Work Phone: Start: 10-02-[address] Vasu Blackwell Work Phone: [facility] Start: 09-26-2022 Letter encounter Debra vega Start: 06-27-2022 Letter encounter Debra vega Start: 02-21-2022 Office outpatient ne w 60 minutes Referring Provider Unknown VO-Pdfwanxae-RUJBY Kaykayaugust 5 Work Phone: Start: 12-30-2021 End: 12-30-2021 Emergency department patient visit Dr. Vasu Blackwell Work Phone: [facility]-Emergency Department Start: 12-30-2021 End: 12-30-[address] Vasu Blackwell Work Phone: [facility] Internal Medicine Start: 10-26-2021 End: 10-26-[address] Vasu Blackwell Work Phone: [facility]-Laboratory, [facility] Start: 08-03-2021 End: 08-03-2021 Patient encounter procedure RONEN CHURCH TRANSPORTATION LEAD [facility] Start: 07-05-[address] Vasu Blackwell Work Phone: [facility] Start: 01-29-2021 ambulatory [facility]KNOWN [facility] Start: 01-28-2021 End: 01-28-2021 ambulatory UNKNOWN PROVIDER Facility:[facility] Start: 01-28-2021 End: 01-31-2021 Evaluation and management of inpatient SAMMY TEJADANTON Facility:[facility] Start: 01-27-2021 ambulatory SAMMY TEJADANTON Facility: [facility] Start: 10-30-2017 Ambulatory [facility] Start: 10-29-2017 Ambulatory KAT [facility] Start: 10-28-2017 Ambulatory KAT [facility] Start: 10-27-2017 Ambulatory KAT [facility] Start: 10-26-2017 [facility] Procedures Date Procedure Procedure Detail Performing Clinician Start: 02-05-2025 MRI of brain without contrast Dr. Vasu Blackwell MD Work Phone: Start: 10-02-2024 Measurement of renal function Dr. Vasu Blackwell MD Work Phone: Comment on above: GFR Calc Start: 10-02-[address] Vasu Blackwell MD Work Phone: Start: 08-12-2024 CT LUNG SCREEN WO MIMI Monterroso USED EQUIPMENT SALES REPRESENTATIVE.CONTENT ENGINEER Work Phone: Start: 07-28-2024 Brncdilat rspse spmt [...] above: Performed By: #### P T #### [place] [address] Plan of Treatment Date Care Activity Detail Author Start: 06-01-2029 Tetanus vaccination Tetanus (T d or Tdap) Booster [facility] Start: 06-01-2029 Urine microalbumin profile DTaP,Tdap,Td Vaccine (2 - Td or Tdap) [facility] Start: 04-09-2029 Lipid panel Lipid Screening [facility] Start: 04-09-2027 Diabetes Screening Diabetes Screenin g [facility] Start: 01-23-2026 Annual PCP Team Buggy Ladle Tender elizabeth Disease Visit Annual PCP Team Chronic Disease Visit [facility] Start: 01-23-2026 BP Controlled (<130/80) BP Controlle d (<130/80) [facility] Start: 01-23-2026 Pneumococcal Vaccine : 50+ (2 of 2 - PCV) Pneumococcal Vaccine: 50+ (2 of 2 - PCV) [facility] Comment on above: Postponed from 06/27 (Declined at this time) Start: 01-23-2026 Shingrix Vaccine (1 of 2) Pineda grix Vaccine (1 of 2) [facility] Comment on above: Postponed from 03/26 (Declined at this time) Start: 08-12-2025 Screening for malign ant neoplasm of lung Lung Cancer Screening [facility] Start: 07-28-2025 BP Controlled (<130/80) BP Controlle d (<130/80) [facility] Start: 07-27-2025 End: 07-27-2025 Patient encounter procedure 07/27/2025 9:20 AM EST Office Visit Family [facility] [address] [place] [id number] Waldo Galo MD [address] [place] [id number] 6 month follow up Family [facility] Comment on above: 6 month follow up Start: 07-23-2025 Annual PCP Team Buggy Ladle Tender elizabeth Disease Visit Annual PCP Team Chronic Disease Visit [facility] Start: 07-23-2025 BP Controlled (<130/80) BP Controlle d (<130/80) [facility] Start: 07-23-2025 Covid-19 Vaccine ( season) Covid-19 Vaccine () [facility] Comment on above: Postponed from 04/20 (Declined at this time) Start: 07-23-2025 Pneumococcal vaccination Pneum ococcal Vaccine (2 of 2 - PCV) [facility] Comment on above: Postponed from 06/27 (Declined at this time) Start: 07-20-2025 End: 09-13-2025 CT Chest for screening WO contrast CT LUNG SCREEN WO IVCON Radiology Routine Encounter for screening for lung cancer Tobacco use Expected: 07/20/2025 (Approximate), Expires: 09/13/2025 [facility] Work Phone: Comment on above: Expected: 07/20/2025 (Approximate), Expires: 09/13/2025 Start: 06-26-2025 Annual PCP Team Buggy Ladle Tender elizabeth Disease Visit Annual PCP Team Chronic Disease Visit [facility] Start: 06-26-2025 BP Controlled (<130/80) BP Controlle d (<130/80) [facility] Start: 04-09-2025 Annual PCP Team Buggy Ladle Tender elizabeth Disease Visit Annual PCP Team Chronic Disease Visit [facility] Start: 04-09-2025 BP Controlled (<130/80) BP Controlle d (<130/80) [facility] Start: 02-19-2025 Polysomnography [facility] Start: 02-10-2025 Polysomnography [facility] Start: 01-23-2025 End: 04-24-2025 Lipid 1996 panel - Serum or Plasma LIPID PANEL, FASTING Lab Routine Other hyperlipidemia Expected: 01/23/2025, Expires: 04/24/2025 [facility] Comment on above: Expected: 01/23/2025 , Expires: 04/24/2025 Start: 01-23-2025 End: 01-23-2025 Patient encounter procedure 01/23/2025 9:00 AM EDT Office Visit Family Paco V[facility] [address] [place] [address] Shira Cheatham APRN.CONTENT ENGINEER [address] [place] [address] 6 month follow up Family [facility] Comment on above: 6 month follow up Start: 01-21-2025 End: 01-21-2025 Patient encounter procedure 01/21/2025 8:40 AM EDT Office Visit Family Paco V[facility] [address] [place] [address] Waldo Galo MD [address] [facility] [place] [address] 6 month follow up [facility] [place] Comment on above: 6 month follow up Start: 01-16-2025 Patient referral [facility] Work Phone: Start: 08-12-2024 End: 08-12-2024 Patient encounter procedure 08/12/2024 8:00 AM EST Appointment Cat Scan [address] [place] [id number] CT Lung Screening Cat [facility] Comment on above: CT Lung Screening Start: 07-28-2024 End: 07-28-2024 Patient encounter procedure 07/28/2024 1:30 PM EST Office Visit Pulmonary Medicine [address] [place] [id number] Alexandro Monterroso APRN.CONTENT ENGINEER [address] [place], [place] [id number] Persistent cough [R05.3]; Wheezing [R06.2]; Tobacco use [Z72.0] Pulmonary Medicine Comment on above: Persistent cough [R0 5.3]; Wheezing [R06.2]; Tobacco use [Z72.0] Start: 07-28-2024 End: 07-28-2024 ambulatory PULM LAB [facility] Comment on above: Persistent cough [R0 5.3]; Wheezing [R06.2]; Tobacco use [Z72.0] Start: 07-23-2024 End: 07-23-2024 Patient encounter procedure 07/23/2024 8:40 AM EST Office Visit [facility] [place] [address] [facility] [place] [address] Waldo Galo MD [address] [facility] [place], [place] [phone] 3 month monica green [facility] [place] Comment on above: 3 month monica green Start: 07-12-2024 End: 10-11-2024 Comprehensive metabolic 2000 panel - Serum or Plasma COMPREHENSIVE METABOLIC PANEL Lab Routine Other hyperlipidemia Expected: 07/12/2024, Expires: 10/11/2024 [facility] Work Phone: Comment on above: Expected: 07/12/2024 , Expires: 10/11/2024 Start: 07-12-2024 End: 10-11-2024 Lipid 1996 panel - Serum or Plasma LIPID PANEL BASIC Lab Routine Other hyperlipidemia Expected: 07/12/2024, Expires: 10/11/2024 [facility] Comment on above: Expected: 07/12/2024 , Expires: 10/11/2024 Start: 07-11-2024 End: 07-11-2024 Patient encounter procedure 07/11/2024 8:40 AM EST Office Visit [facility] [place] [address] [place] [address] Waldo Galo MD [address] [facility] [place] [phone] 3 month nayelywloi p [facility] [place] Comment on above: 3 month follwou p Start: 05-20-2024 Influenza vaccination Influenza Vacc ine (#1) [facility] Start: 04-20-2024 Covid-19 Vaccine ( season) Covid-19 Vaccine ( season) [facility] Start: 04-20-2024 Influenza vaccination Influenza Vacc ine (#1) [facility] Start: 11-08-2023 Zinc Etcher stdy unatnd w/mi n hrt rate/o2 sat/resp anal PROBATE LAWYER STDY UNATND W/ANAL [facility] Start: 10-15-2023 Patient referral [facility] Work Phone: Start: 09-25-2023 Protein measurement [facility] Start: 09-25-2023 Patient referral [facility] Work Phone: Start: 09-24-2023 Measurement of substance [facility] Start: 09-24-2023 Procedure [facility] Start: 09-24-2023 Thiamine measurement [facility] Start: 06-20-[address] [facility] Start: 06-16-2023 Following clinical pathway protocol [facility] Start: 06-16-2023 Assessment of risk o f venous thromboembolism [facility] Start: 06-16-2023 Notification of physician [facility] Start: 06-16-2023 Seizure precautions [facility] Start: 06-16-2023 Vital signs measurements [facility] Start: 06-16-2023 [facility] Start: 06-16-2023 Admission procedure [facility] Start: 06-16-2023 Inhalation therapy procedure [facility] Start: 06-08-2023 [facility] Start: 05-28-2023 Patient referral [facility] Work Phone: Start: 04-20-2023 COVID-19 Vaccine ( season) COVID-19 Vaccine ( season) [facility] Start: 05-20-2022 Influenza vaccination Influenza Vacc ine (#1) [facility] Start: 01-31-2022 Basic metabolic 2000 panel - Serum or Plasma Basic [facility] Panel [facility] Start: 01-31-2022 Creatinine measurement Basic Metabol ic Panel [facility] Start: 2021 Measurement of occul t blood in single stool specimen FIT [facility] Start: 2021 Screening for malign ant neoplasm of colon [facility] Start: 2021 Screening for malign ant neoplasm of lung Lung Cancer Screening [facility] Start: 2021 Shingles (RZV) Vacci ne (1 of 2) Shingles (RZV) Vaccine (1 of 2) [facility] Start: 2021 Shingrix Vaccine (1 of 2) Pineda grix Vaccine (1 of 2) [facility] Start: 2016 Screening for malign ant neoplasm of colon [facility] Start: 06-27-2015 Pneumococcal vaccination [facility] Start: 06-27-2015 Pneumococcal Vaccine : 50+ (2 of 2 - PCV) Pneumococcal Vaccine: 50+ (2 of 2 - PCV) [facility] Start: 06-21-2015 Pneumococcal vaccination Pneum ococcal Vaccine (2 of 2 - PCV) [facility] Start: 2006 Lipid panel Cholesterol [facility] Start: 1990 Hepatitis A (HAV) Va ccine (optional start 19+ years) Hepatitis A (HAV) Vaccine (optional start 19+ years) [facility] Start: 1990 Hepatitis B vaccination Hepati tis B (HBV) Vaccine (1 of 3 - 19+ 3-dose series) [facility] Start: 1990 Hepatitis B Vaccine (1 of 3 - 19+ 3-dose series) Hepatitis B Vaccine (1 of 3 - 19+ 3-dose series) [facility] Start: 1989 [facility] Start: 1986 [facility] screening [facility] Start: 1971 COVID-19 Vaccine (#1) COVID-19 Vacci ne (#1) [facility] Start: 1971 Hepatitis B vaccination Hepati tis B (HBV)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 management of lwwdgrkjGZ-Xrowlfjpc-YHCTS [facility] [address] Work Phone: chilb complaint Narrative - ReportedNPV for evaluation and management of evfttwgcEA-Yoguirapw-JJBZJ Bolwell 5 Work Phone: chief complaint+Reason for visit Narrative* Chief Complaint DISCUSS MEDICATIONS/ NEURO REFERRAL EPILEPSY Reason for Visit Anxiety and depressi on Benign essential hypertension Seizure disorder [facility] Work Phone: Chief complaint+Reason for visit Narrative* Chief Complaint DISCUSS MEDICATIONS/ NEURO REFERRAL EPILEPSY TBI, EPILEPSY Reason for Visit Anxiety and depressi on Benign essential hypertension Seizure disorder Epilepsy Hypersomnia Tension headache [facility] Work Phone: Chief complaint+Reason for visit Narrative* Chief Complaint DISCUSS MEDICATIONS/ NEURO REFERRAL EPILEPSY TBI, EPILEPSY ALCOHOL WITHDRAWAL Detox Reason for Visit Anxiety and depressi on Benign essential hypertension Seizure disorder Epilepsy Hypersomnia Tension headache Alcohol withdrawal Epilepsy Alcohol abuse [facility] Work Phone: Chief complaint+Reason for visit Narrative* Chief Complaint DISCUSS MEDICATIONS/ NEURO REFERRAL EPILEPSY TBI, EPILEPSY ALCOHOL WITHDRAWAL Detox ALCOHOL WITHDRAWAL ALCOHOL WITHDRAWAL ALCOHOL WITHDRAWAL Reason for Visit Anxiety and depressi on Benign essential hypertension Seizure disorder Epilepsy Hypersomnia Tension headache Alcohol withdrawal Epilepsy Alcohol abuse [facility] Work Phone: Chief complaint+Reason for visit Narrative* Chief Complaint DISCUSS MEDICATIONS/ NEURO REFERRAL EPILEPSY TBI, EPILEPSY ALCOHOL WITHDRAWAL Detox ALCOHOL WITHDRAWAL ALCOHOL WITHDRAWAL ALCOHOL WITHDRAWAL ALCOHOL WITHDRAWAL Z87.820 G40.909 Reason for Visit Anxiety and depressi on Benign essential hypertension Seizure disorder Epilepsy Hypersomnia Tension headache Epilepsy Alcohol abuse Alcohol withdrawal [facility] Work Phone: Evaluation + Plan note No data available for this section [facility] Evaluation note* Diagnosis Onset Date Resolution Status Benign essential hypertension chronic GERD (gastroesophageal reflux disease) chronic Seizure disorder chronic Nausea acute RLQ abdominal pain acute [facility] Work Phone: Evaluation note* Diagnosis Onset Date Resolution Status Anxiety and depression chron ic Benign essential hypertension chronic Seizure disorder chronic [facility] Work Phone: Evaluation note* Diagnosis Onset Date Resolution Status Anxiety and depression chron ic Benign essential hypertension chronic Seizure disorder chronic Epilepsy acute Hypersomnia acute Tension headache chronic [facility] Work Phone: Evaluation note* Diagnosis Onset Date Resolution Status Anxiety and depression chron ic Benign essential hypertension chronic Seizure disorder chronic Epilepsy acute Hypersomnia acute Tension headache chronic Alcohol withdrawal acute Epilepsy acute Alcohol abuse chronic [facility] Work Phone: Evaluation note* Diagnosis Onset Date Resolution Status Anxiety and depression chron ic Benign essential hypertension chronic Seizure disorder chronic Epilepsy acute Hypersomnia acute Tension headache chronic Epilepsy acute Alcohol abuse chronic Alcohol withdrawal resolved [facility] Work Phone: Evaluation note* Diagnosis Onset Date Resolution Status Epilepsy acute Hypersomnia acute Tension headache chronic Epilepsy acute Alcohol abuse chronic Alcohol withdrawal resolved Benign essential hypertension chronic Chronic diarrhea chronic GERD (gastroesophageal reflux disease) chronic [facility] Work Phone: Evaluation note* Diagnosis Onset Date Resolution Status Epilepsy acute Alcohol abuse chronic Alcohol withdrawal resolved Benign essential hypertension chronic Chronic diarrhea chronic GERD (gastroesophageal reflux disease) chronic [facility] Work Phone: Evaluation note* Diagnosis Onset Date Resolution Status Benign essential hypertension chronic Chronic diarrhea chronic GERD (gastroesophageal reflux disease) chronic Elevated liver enzymes acute Epilepsy acute Hypersomnia acute Nocturnal enuresis acute [facility] Work Phone: Evaluation note* Diagnosis Other hyperlipidemia- Primary documented in this encounter [facility] note* Diagnosis Encounter for medical examination to [...] epilepsy type (HCC) documented in this encounter [facility] note* Diagnosis Bilateral leg edema- Primary Edema Primary hypertension Unspecified essential hypertension Alcohol abuse Alcohol abuse, unspecified Elevated liver enzymes Other nonspecific abnormal serum enzyme levels documented in this encounter [facility] note* Diagnosis Other hyperlipidemia documented in this encounter [facility] note* Diagnosis Persistent cough- Primary Cough Wheezing Tobacco use Tobacco use disorder Primary hypertension Unspecified essential hypertension Other hyperlipidemia Bipolar affective disorder, remission status unspecified (HCC) Depression with anxiety Dysthymic [facility] Persistent cough Cough Wheezing Tobacco use Tobacco use disorder [facility] Diagnosis Persistent cough Cough Wheezing Tobacco use Tobacco use disorder [facility] Diagnosis Encounter for screening for lung cancer- Primary Tobacco use Tobacco use disorder [facility] Diagnosis Encounter for screening for lung cancer Tobacco use Tobacco use disorder [facility] Diagnosis Encounter for screening for lung cancer- Primary Tobacco use Tobacco use disorder [facility] Diagnosis Persistent cough Cough Wheezing Tobacco use Tobacco use disorder [facility] Diagnosis Primary hypertension- Primary Unspecified essential [...] esophagitis Esophageal reflux [facility] Author Sanya Caldwell [facility] June 16, 2023 2:39pm Note Date/Time June 16, 2023 2 :39pm [facility] Medical Records Department [address] [place] [id number] H&P Exam - Hospitalist 06/16/23 1431 MR#: [id number] Acct: [id number] Name: JERMAN POON [facility] Rep #:[id number] : 1970 53 From: Sanya Caldwell DO [...] not had seizure in over a year. [facility] Medical History Arthritis Back pain Blood glucose [...] % (Auto) 68.8, Lymph % (Auto) 20.1, [place] % (Auto) 8.4, Eos % (Auto) 1.5, [...] Clarity Clear, Urine pH 6.5, Ur Specific [place] 1.015, Urine Protein 15 H, Urine Glucose [...] low risk. Charges/Coding Visit Charges Inpatient E&M: 46829 Init Hosp L2 06/16/23 1433 <Electronically signed by Sanya Caldwell DO> Cosigner Signature (if applicable): CC: Dr. Vasu Blackwell MD; Dr. Sanya Caldwell DO~ Signed [facility] Work Phone: Hospital Discharge instructions No data available for this section [facility] Reason for referral (narrative)* Outpatient Procedure (Routine) - Pending Review Specialty Diagnoses / Procedures Referred By Hai cordero [facility] Diagnoses Persistent cough Wheezing Tobacco use Procedures LUNG VOLUMES Waldo Galo MD [address] [place] [address] [facility] [address] [place] [address] Referral ID Status Reason Start Date Expiration Date Visits Requested Visits Authorized [id number] Pending Review Auto-Generat ed Referral 07/23/2024 08/22/2025 1 1 * Outpatient Procedure (Routine) - Authorized Specialty Diagnoses / Procedures Referred By Hai cordero Referred To Contact [facility] Diagnoses Persistent cough Wheezing Tobacco use Procedures SPIROMETRY - BASELINE AND POST DILATOR BRNCDILAT RSPSE SPMTRY PRE&POST-BRNCDILAT ADMN Waldo Galo MD [address] [place] [address] [facility] [place] [address] Referral ID Status Reason Start Date Expiration Date Visits Requested Visits Authorized [id number] Authorized Auto-Generat ed Referral 07/23/2024 08/22/2025 1 1 [facility] for referral (narrative)No reason for [facility] TANA Bassny Tory: PERFORM Event Display: Patient Summary Documents Authored Date: [id number] [facility] Summary Purpose Family History No Family History Records Found Relationship Condition Age at Onset Recorded Date/T odalis mother Suicide Unknown Depression Unknown Arthritis Unknown Anxiety Unknown father Suicide Unknown Alcoholism Unknown grandfather Alcoholism Unknown Advance Directives No Advanced Directives Records Found Advance Directive Response Recorded Date/ Time Advance Directives No September 17, 2017 6:50am Living Will No December 30, 2021 8 :19pm Power of [employer] No December 30, 2021 8:19pm Latest Code [...] Will No May 28 10:27am Power of [employer] No May 28 023 10:27am Advance Directive Response Recorded Date/ Time Advance Directives No May 28, 2023 10:27am Living Will No June 16 12:11pm Power of [employer] No June 16, 2023 12:11pm Advance Directive Response Recorded Date/ Time Advance Directives No May 28, 2023 10:27am Living Will No June 16 3:24pm Power of [employer] No June 16, 2023 3:24pm Advance Directive Response Recorded Date/ Time Advance Directives No May 28, 2023 9:27am Living Will No June 16 2:24pm Power of [employer] No June 16, 2023 2:24pm Latest Code [...] 2023 10:27am Hospital Course Note HNO ID: [id number] Author: Mary Denney) Jesse Service: Trauma Author Type: Physician [employer] Dean Type: Discharge Summary Filed: 06/18/2019 11:21 AM Note Text: Attestation signed by Francis Joy at 06/18/2019 11:34 AM Patient seen and discussed with PA. Sexton to be discharged. DISCHARGE SUMMARY PATIENT NAME: [...] (more content not included)... Note HNO ID: [id number] Author: Swapnil Moseley Service: Thoracic Surgery Author Type: Resident Type: Procedures Filed: 06/07/2019 11:18 AM Note Text: BEDSIDE PROCEDURE NOTE INTUBATION Performed by: Rachel Moseley Authorized by: Lakesha Wilkes Consent/[place] Protocol Written consent obtained: No, emergent procedure [...] (more content not included)... Note HNO ID: [id number] Author: Mario Beltran Service: General Surgery Author Type: Physician Type: Procedures Filed: 06/12/2019 1:15 PM Note Text: BEDSIDE PROCEDURE NOTE BRONCHOSCOPY Date/Start Time: 06/12/2019 1:00 PM Performed by: Susan Witt MD Authorized by: Lilliana Beltran Consent/[place] Protocol Written Consent Obtained: Yes Sign In [...] not included)... Procedure Findings Note HNO ID: [id number] Author: Swapnil Moseley Service: Thoracic Surgery Author Type: Resident Type: Procedures Filed: 06/07/2019 11:18 AM Note Text: BEDSIDE PROCEDURE NOTE INTUBATION Performed by: Rachel Moseley Authorized by: Lakesha Wilkes Consent/[place] Protocol Written consent obtained: No, emergent procedure [...] (more content not included)... Note HNO ID: [id number] Author: Mario Beltran Service: General Surgery Author Type: Physician Type: Procedures Filed: 06/12/2019 1:15 PM Note Text: BEDSIDE PROCEDURE NOTE BRONCHOSCOPY Date/Start Time: 06/12/2019 1:00 PM Performed by: Susan Witt MD Authorized by: Lilliana Beltran Consent/[place] Protocol Written Consent Obtained: Yes Sign In [...] Referral Specialty Diagnoses / Procedures Referred By Contac t Referred To Contact CT IMAGING Diagnoses Encounter for screening for lung cancer Tobacco use Procedures CT LUNG SCREEN WO IVCON COMPUTED TOMOGRAPHY THORAX LW DOSE LNG CA SCR Chayo- Alexandro Monterroso, USED EQUIPMENT SALES REPRESENTATIVE.CONTENT ENGINEER [address] [place] [address] [facility] [place] [address] Referral ID Status Reason Start Date Expiration Date Visits Requested Visits Authorized [id number] Authorized Auto-Generat ed Referral 07/28/2024 08/27/2025 1 1 Specialty Diagnoses / Procedures Referred By Contac t Referred To Contact General Surgery Diagnoses Diarrhea, unspecified type Screening for colon cancer Procedures CONSULT TO GENERAL SURGERY OFFICE/OUTPATIENT [facility] 60 MINUTES Waldo Galo MD [address] [place] [address] Referral ID Status Reason Start Date Expiration Date Visits Requested Visits Authorized [id number] Authorized PCP Requested Referral 04/09/2024 04/09/2025 1 1 Additional Source Comments (unrecognized sect ion and content) No Status Records FoundNo Status Records FoundNo Status Records FoundNo Status Records FoundNo Status Records FoundNo Status Records FoundNo Status Records FoundNo Status Records Found INFORMATION SOURCE (unrecogn ized section and content) DATE CREATED AUTHOR 02/08/2018 [facility] DATE CREATED AUTHOR AUTHOR'S ORGANIZ ATION [facility]/11/[facility] DATE CREATED AUTHOR AUTHOR'S ORGANIZ ATION 11/30/2019 [facility] DATE CREATED AUTHOR AUTHOR'S ORGANIZ ATION 09/18/2021 [facility] DATE CREATED AUTHOR AUTHOR'S ORGANIZ ATION 02/22/2022 [employer] DATE CREATED AUTHOR AUTHOR'S ORGANIZ ATION 01/14/2024 [facility] ([place]) DATE CREATED AUTHOR AUTHOR'S ORGANIZ ATION 01/28/2025 [facility] DATE CREATED AUTHOR AUTHOR'S ORGANIZ ATION 02/10/2025 [facility] Goals (unrecognized section and content) Goals may be documented in a n alternate section Care Teams (unrecognized sec tion and content) Team Status: Active Member Role Status Dates Dr. Miguel Galo MD Family Provider Active Dr. Vasu Blackwell MD Primary Care Provider Active Team Status: Inactive Member Role Status Dates Dr. Vasu Blackwell MD Primary Care P zacarias, Attending Provider, Referring Provider Active Team Status: [...] Primary Care Provider, Atten ding Provider Active Entry Level Staff Accountant Relationship Specialty Start Date End Date Waldo Galo MD [address] [place] [address] PCP - General Family Medicine 04/09/24 Chavez Bennett MD [address] [place] [address] Referring Neurosurgery 07/09/19 Entry Level Staff Accountant Relationship Specialty Start Date End Date Waldo Galo MD [address] [place] [address] PCP - General Family Medicine 04/09/24 Chavez Bennett MD [address] [place] [address] Referring Neurosurgery 07/09/19 Entry Level Staff Accountant Relationship Specialty Start Date End Date Waldo Galo MD [address] [facility] [place] [address] PCP - General Family Medicine 04/09/24 Chavez Bennett MD [address] [place] [facility] [place] [address] Referring Neurosurgery 07/09/19 Entry Level Staff Accountant Relationship Specialty Start Date End Date Waldo Galo MD [address] [facility] [place] [address] PCP - General Family Medicine 04/09/24 Chavez Bennett MD [address] [facility] [place] [address] Referring Neurosurgery 07/09/19 Entry Level Staff Accountant Relationship Specialty Start Date End Date Waldo Galo MD [address] [facility], [place] [address] PCP - General Family Medicine 04/09/24 Chavez Bennett MD [address] [facility], [place] [address] Referring Neurosurgery 07/09/19 Entry Level Staff Accountant Relationship Specialty Start Date End Date Waldo Galo MD [address] [facility] [place] [address] PCP - General Family Medicine 04/09/24 Chavez Bennett MD [address] [place] [facility] [address] Referring Neurosurgery 07/09/19 Entry Level Staff Accountant Relationship Specialty Start Date End Date Waldo Galo MD [address] [place] [address] PCP - General Family Medicine 04/09/24 Chavez Bennett MD [address] [place] [address] Referring Neurosurgery 07/09/19 PodlogarShira APRN.CONTENT ENGINEER [address] [place] [address] [facility] 07/26/24 Entry Level Staff Accountant Relationship Specialty Start Date End Date Waldo Galo MD [address] [place] [address] PCP - General Family Medicine 04/09/24 Chavez Bennett MD [address] [place] [address] Referring Neurosurgery 07/09/19 PodlogarShira APRN.CONTENT ENGINEER [address] [place] [address] [facility] 07/26/24 Entry Level Staff Accountant Relationship Specialty Start Date End Date Waldo Galo MD [address] [place] [address] PCP - General Family Medicine 04/09/24 Chavez Bennett MD [address] [place] [address] Referring Neurosurgery 07/09/19 PodlogarShira APRN.CONTENT ENGINEER [address] [facility] [place] [address] [facility] 07/26/24 Entry Level Staff Accountant Relationship Specialty Start Date End Date Waldo Galo MD [address] [place] [address] PCP - General Family Medicine 04/09/24 Chavez Bennett MD [address] [facility] [address] Referring Neurosurgery 07/09/19 PodlogarShira APRN.CONTENT ENGINEER [address] [facility] [place] [address] [facility] 07/26/24 Entry Level Staff Accountant Relationship Specialty Start Date End Date Waldo Galo MD [address] [facility] [place] [address] PCP - General Family Medicine 04/09/24 Chavez Bennett MD [address] [place] [address] Referring Neurosurgery 07/09/19 PodlogarShira APRN.CONTENT ENGINEER [address] [facility] [place] [address] [facility] 07/26/24 Entry Level Staff Accountant Relationship Specialty Start Date End Date Waldo Galo MD [address] [place] [address] PCP - General Family Medicine 04/09/24 Chavez Bennett MD [address] [place] [address] Referring Neurosurgery 07/09/19 Shira Cheatham APRN.CONTENT ENGINEER [address] [place] [address] [facility] 07/26/24 Suzy Medel APRN.CONTENT ENGINEER [address] [place] [address] [facility] 11/10/24 Team Status: Inactive Member Role Status [...] January 15, 2025 End: January 15, 2025 Entry Level Staff Accountant Relationship Specialty Start Date End Date Waldo Galo MD [address] [place], [place] [address]201 PCP - General Family Medicine 04/09/24 Chavez Bennett MD [address] [facility], [place] [address] Referring Neurosurgery 07/09/19 PodlogShira acuña APRN.CONTENT ENGINEER [address] [place], [place] [address] [facility] 07/26/24 Errol Moore MD [address] [place], [place] [address] [place] Referring Team Neurology 01/22/25 Entry Level Staff Accountant Relationship Specialty Start Date End Date Waldo Galo MD [address] [place], [place] [address] PCP - General Family Medicine 04/09/24 Chavez Bennett MD [address] [facility] [place] [address] Referring Neurosurgery 07/09/19 PodlogShira acuña APRN.CONTENT ENGINEER [address] [place] [address] [facility] 07/26/24 Errol Moore MD [address] [place] [address] [place] Referring Team Neurology 01/22/25 Team Status: [...] January 29, 2025 End: January 29, 2025 Team Status: Inactive Member Role Status Dates Dr. Errol Moore MD Attending Provider Active Start: February 05, 2025 End: February 05, 2025 Dr. Errol Moore MD Referring Provider Active Start: February 05, 2025 End: February 05, 2025 Dr. Miugel Galo MD Primary Care Provider Acti ve Start: February 05, 2025 End: February 05, 2025 Source Comments (unrecognize d section and content) In the event this informatio n is protected by the Federal Confidentiality of Alcohol and Drug Abuse Patient Records regulations: The Federal rules restrict any use of the information to criminally investigate or prosecute any alcohol or drug abuse patient.[facility] the event this information is protected by the Federal Confidentiality of Alcohol and Drug Abuse Patient Records regulations: The Federal rules restrict any use of the information to criminally investigate or prosecute any alcohol or drug abuse patient.[facility] Hospital[facility] the event this information is protected by the Federal Confidentiality of Alcohol and Drug Abuse Patient Records regulations: The Federal rules restrict any use of the information to criminally investigate or prosecute any alcohol or drug abuse patient.[facility] Hospital[facility] the event this information is protected by the Federal Confidentiality of Alcohol and Drug Abuse Patient Records regulations: The Federal rules restrict any use of the information to criminally investigate or prosecute any alcohol or drug abuse patient.[facility] HospitalIn the event this information is protected by the Federal Confidentiality of Alcohol and Drug Abuse Patient Records regulations: The Federal rules restrict any use of the information to criminally investigate or prosecute any alcohol or drug abuse patient.[facility] HospitalIn the event this information is protected by the Federal Confidentiality of Alcohol and Drug Abuse Patient Records regulations: The Federal rules restrict any use of the information to criminally investigate or prosecute any alcohol or drug abuse patient.[facility] Hospital[facility] the event this information is protected by the Federal Confidentiality of Alcohol and Drug Abuse Patient Records regulations: The Federal rules restrict any use of the information to criminally investigate or prosecute any alcohol or drug abuse patient.[facility] Hospital[facility] the event this information is protected by the Federal Confidentiality of Alcohol and Drug Abuse Patient Records regulations: The Federal rules restrict any use of the information to criminally investigate or prosecute any alcohol or drug abuse patient.[facility] Hospital[facility] the event this information is protected by the Federal Confidentiality of Alcohol and Drug Abuse Patient Records regulations: The Federal rules restrict any use of the information to criminally investigate or prosecute any alcohol or drug abuse patient.[facility] HospitalIn the event this information is protected by the Federal Confidentiality of Alcohol and Drug Abuse Patient Records regulations: The Federal rules restrict any use of the information to criminally investigate or prosecute any alcohol or drug abuse patient.[facility] HospitalIn the event this information is protected by the Federal Confidentiality of Alcohol and Drug Abuse Patient Records regulations: The Federal rules restrict any use of the information to criminally investigate or prosecute any alcohol or drug abuse patient.[facility] HospitalIn the event this information is protected by the Federal Confidentiality of Alcohol and Drug Abuse Patient Records regulations: The Federal rules restrict any use of the information to criminally investigate or prosecute any alcohol or drug abuse patient.[facility] HospitalIn the event this information is protected by the Federal Confidentiality of Alcohol and Drug Abuse Patient Records regulations: The Federal rules restrict any use of the information to criminally investigate or prosecute any alcohol or drug abuse patient.[facility] HospitalIn the event this information is protected by the Federal Confidentiality of Alcohol and Drug Abuse Patient Records regulations: The Federal rules restrict any use of the information to criminally investigate or prosecute any alcohol or drug abuse patient.[facility] HospitalIn the event this information is protected by the Federal Confidentiality of Alcohol and Drug Abuse Patient Records regulations: The Federal rules restrict any use of the information to criminally investigate or prosecute any alcohol or drug abuse patient.[facility] Reason for Visit (unrecogniz ed section and [...] Spirometry Specialty Diagnoses / Procedures Referred By Hai cordero Referred To [facility] Diagnoses Persistent cough Wheezing Tobacco use Procedures SPIROMETRY - BASELINE AND POST DILATOR BRNCDILAT RSPSE SPMTRY PRE&POST-BRNCDILAT ADMN Waldo Galo MD [facility] [place] [address] [facility] [place] [address] Referral ID Status Reason Start Date Expiration Date V isits Requested Visits Authorized [id number] Closed Auto-Generate d Referral 07/23/2024 08/22/2025 1 1 Specialty Diagnoses / Procedures Referred By Hai cordero Referred To Contact [facility] Diagnoses Persistent cough Wheezing Tobacco use Procedures LUNG VOLUMES Waldo Galo MD [address] [place] [address] [place] [address] Referral ID Status Reason Start Date Expiration Date V isits Requested Visits Authorized [id number] Closed Auto-Generate d Referral 08/20/2023 08/19/2024 1 1 Reason Comments New Patient LCS Reason Comments Radiology CT Specialty Diagnoses / Procedures Referred By Hai cordero Referred To Contact CT IMAGING Diagnoses Encounter for screening for lung cancer Tobacco use Procedures CT LUNG SCREEN WO IVCON COMPUTED TOMOGRAPHY THORAX LW DOSE LNG CA SCR Chayo- Alexandro Monterroso, USED EQUIPMENT SALES REPRESENTATIVE.CONTENT ENGINEER [address] [place] [address] [place] [address] Referral ID Status Reason Start Date Expiration Date V isits Requested Visits Authorized [id number] Closed Auto-Generate d Referral 07/30/2024 08/29/2024 1 1 Reason Onset Date Comments Refill Request 11/10/2024 Reason Comments Received Outside Medical Records Externa l referral to [facility] [place] Reason Comments F/U 6 months FOR RECORDS [...] BE BASED ON THE PRIMARY CLINICAL RECORDS. [employer] [facility] provides no warranty or guarantee of the accuracy [phone] completeness of information in this [id number]
[2025-02-17 06:56] LABS: Ammonia 39.6 umol/L (16-60)
[2025-02-17 07:19] LABS: Hematocrit 45.6 % (40-54); Hemoglobin 15.0 g/dL (13.0-16.5); Mean Corp Hgb Conc 32.9 g/dL (32-36); Mean Corpuscular Volume 93.8 fL (80-94); Mean Platelet Vol. 9.7 fl (6.2-12.0); Platelet Count 294 K/mm3 (150-450); RBC Distribution Width CV 14.7 % (11.6-14.6); RBC Distribution Width SD 51.0 fl (35.1-43.9); Red Blood Count 4.86 M/mm3 (4.6-6.2); White Blood Count 9.1 K/mm3 (4.4-11.0)
[2025-02-17 07:37] LABS: Valproic Acid (Depakene) Level 22 ug/mL (50-100)
[2025-02-17 07:55] LABS: AST(SGOT) 15 U/L (<=37); Alanine Aminotransfer ALT/SGPT 9 U/L (<=46); Albumin, Serum 4.0 g/dL (3.5-5.0); Alkaline Phosphatase 48 U/L (40-129); Anion Gap 12 (5-15); BUN 8 mg/dL (4-19); BUN/Creat Ratio 12.3 RATIO (10-20); Calcium,Total 9.0 mg/dL (7.6-11.0); Carbon Dioxide 21.0 mmol/L (21.0-32.0); Chloride 102 mmol/L (98-108); Globulin 2.7 g/dL (2.2-4.2); Glucose 100 mg/dL (70-99); Potassium 4.1 mmol/L (3.3-5.1); Vitamin B12 417 pg/mL (180-914)
[2025-02-19 12:08] LABS: Vitamin D 1,25-Dihydroxy 18.7 pg/mL (24.8-81.5)
[2025-02-19 20:08] LABS: Folate, Hemolysate Test 434.0 ng/mL (Not Estab.); Folate, RBC (Hct) Test 45.7 % (37.5-51.0); Folates, RBC Test 950 ng/mL (>498); KEPPRA (LEVETIRACETAM) 43.8 ug/mL (10.0-40.0); Vitamin B1, Thiamine 144.1 nmol/L (66.5-200.0)
== END | disposition home or self-care (01) ==
LOC: LAB 06:15
PROVIDERS: PCP Family Medicine; Referring Provider Psychiatry & Neurology Neurology; Visit Provider Psychiatry & Neurology Neurology
DX: G40.409 Other generalized epilepsy and epileptic syndromes, not intractable, without status epilepticus (principal); R41.3 Other amnesia
CPT/HCPCS: 36415; 80053; 80164; 80177; 82140; 82607; 82652; 82747; 84425; 84443; 85014; 85027

== ENCOUNTER → 2025-02-19 | Outpatient (CLI) | payer MEDICAID, SELFPAY | END | disposition home or self-care (01) | LOC: SL 20:09 | PROVIDERS: PCP Family Medicine; Referring Provider Psychiatry & Neurology Neurology; Visit Provider Psychiatry & Neurology Neurology | DX: G47.10 Hypersomnia, unspecified (principal) | CPT/HCPCS: 95810 ==

== ENCOUNTER → 2025-03-24 | Outpatient (CLI) | payer MEDICAID, SELFPAY ==
--- OUTSIDE RECORDS SUMMARY | 2025-03-24 20:04 | XMS RPT_ITS | CCD ---
Author Organization [facility] Care Team Providers Care Clean Out Driller Helper Name Role Phone KAT NOBLES A Unavailable Unavailable ZINNI, KAT A Unavailable Unavailable ZINNI, KAT A Unavailable Unavailable ZINNI, KAT A Unavailable Unavailable ZINNI, KAT A Unavailable Unavailable ZINNI, KAT A Unavailable Unavailable ZINNI, KAT A Unavailable Unavailable ZINNI, KAT A Unavailable Unavailable ZINNI, KAT A Unavailable Unavailable ZINNI, KAT A Unavailable Unavailable VASU BLACKWELL MD Primary Care Physician [phone] PROVIDER, UNKNOWN Attending Unavailable PROVIDER, UNKNOWN Admitting [...] Vasu Blackwell Referring Provider [phone] Dr. Errol Anderson Attending Provider Dr. Wolfgang Tyler Emergency Provider [phone] Dr. Sanya Caldwell Attending Provider Paulette, Dr. Segundo Admit Provider Dr. Sanya Caldwell Referring Provider Dr. Sanya Caldwell Other Provider Rosalva, Dr. Romero Primary Care Provider [phone] Rosalva, Dr. Romero Attending Provider [phone] Rosalva, Dr. Romero Referring Provider [phone] Dr. Errol Anderson Attending Provider Dr. Wlofgang Tyler Emergency Provider Dr. Sanya Caldwell Attending Provider Paulette, Dr. Segundo Admit Provider Paulette, Dr. Segundo Other Provider Wolf, Dr. Haley Attending Provider Wolf, Dr. Haley Other Provider Dr. Vasu Blackwell Primary Care Provider [phone] Rosalva, Dr. Romero Referring Provider [phone] Rosalva, Dr. Romero Attending Provider [phone] Rosalva, Dr. Romero Primary Care Provider [phone] Dr. Vasu Blackwell Referring Provider [phone] Rosalva, Dr. Romero Primary Care Provider [phone] Rosalva, Dr. Romero Attending Provider [phone] Dr. Vasu Blackwell Referring Provider [phone] Dr. Errol Anderson Attending Provider Unavailable Primary Care Provider Unavailabl e JOHN LUJAN DO Attending Unavailable VASU BLACKWELL MD Primary Care Unavailab valente Bennett MD, Chavez Unavailable Waldo Suresh MD Primary Care Provider Podlogar PHOTOGRAPHY TEACHER.WARDROBE TECHNICIAN Shira Unavailable Knoble PHOTOGRAPHY TEACHER.Suzy ALEXANDER Unavailable Rosalva BONNER, Dr. Romero Primary Care Provider Rosalva BONNER, Dr. Romero Referring Provider Oscar BONNER, Dr. Norton Attending Provider Oscar BONNER, Dr. Norton Referring Provider Thalia BRASSIERE CUP MOLD CUTTER-C, Marta Attending Provider Errol Anderson MD Unavailable Rosalva BONNER, Dr. Romero Primary Care Provider Rosalva BONNER, Dr. Romero Referring Provider [phone] Oscar BONNER, Dr. Norton Attending Provider Oscar BONNER, Dr. Norton Referring Provider Iraj BONNER, Dr. Rivera Primary Care Provider Jonn BRASSIERE CUP MOLD CUTTER-C, Kala Wiggins Attending Provider Knoble PHOTOGRAPHY TEACHER.Suzy ALEXANDER Unavailable WALDO SURESH Attending Unavailab WALDO Beaver Primary Care Unavailab le WALDO SURESH Referring Unavailab le WALDO SURESH Primary Care Unavailab le WALDO SURESH Referring Unavailab le WALDO SURESH Primary Care Unavailab le HARPSTER, ALEXANDRO Attending Unavailable WALDO SURESH Referring Unavailab le WALDO SURESH Primary Care Unavailab le HARPSTER, ALEXANDRO Referring Unavailable WALDO SURESH Primary Care Unavailab le PODLOGARSHIRA Attending Unavailable WALDO SURESH Primary Care Unavailab RACHEL Patel Attending Unavailable ERROL ANDERSON Referring Unavaila ble WALDO SURESH Primary Care Unavailab le WALDO SURESH Attending Unavailab le SELF Referring Unavailable BURSLEY, CHRISTOPHER B Primary Care Unavailab le BURSLEY, CHRISTOPHER B Referring Unavailab le BURSLEY, CHRISTOPHER B Primary Care Unavailab SHIRA Castillo Attending Unavailable BURSLEY, CHRISTOPHER B Primary Care Unavailab le BadErrol segal Attending Unavailable Oleghe, Efewongbe Primary Care Unavailable Oleghe, Efewongbe Referring Unavailable Baddosarah, Errol Referring Unavailable Kala Lunsford Attending Unavailable Bursley, Miguel Primary Care Unavailable BaddoErrol smith Attending Unavailable Oleghe, Efewongbe Primary Care Unavailable Oleghe, Efewongbe Referring Unavailable Davy Douglass Admitting Unavailable Davy Douglass Attending Unavailable Davy Douglass Consulting Unavailable Oleghe, Efewongbe Primary Care Unavailable BaddourErrol Attending Unavailable Oleghe, Efewongbe Primary Care Unavailable Oleghe, Efewongbe Referring Unavailable Marta Vásquez Attending Unavailable Oleghe, Efewongbe Primary Care Unavailable Oleghe, Efewongbe Referring Unavailable Oleghe, Efewongbe Referring Unavailable Tera Bloom Attending Unavailable Oleghe, Efewongbe Primary Care Unavailable Reza Price Attending Unavailable Marli Jacinto Consulting Unavailable Reza Price Consulting Unavailable Marli Jacinto Attending Unavailable Errol Anderson Attending Unavailable Lindadour, Errol Referring Unavailable Bursley, Miguel Primary Care Unavailable Errol Anderson Attending Unavailable Lindadosarah, Errol Referring Unavailable Bursley, Miguel Primary Care Unavailable Errol Anderson Attending Unavailable Lindadosarah Errol Referring Unavailable Bursley, Miguel Primary Care Unavailable Errol Anderson Attending Unavailable Baddour, Errol Referring Unavailable Bursley, Miguel Primary Care Unavailable Errol Anderson Attending Unavailable Lindadour, Errol Referring Unavailable Oleghe, Efewongbe Primary Care Unavailable Davy Douglass Admitting Unavailable Davy Douglass Consulting Unavailable Reza Price Attending Unavailable Oleghe, Efewongbe Primary Care Unavailable Marli Jacinto Consulting Unavailable Kala Lunsford Referring Unavailable Kala Lunsford Attending Unavailable Bursley, Miguel Primary Care Unavailable Allergies Allergy Classification Reported Allergen(s) Allergy Type Date of Onset Reaction(s) Facility (20 sources) acetaminophen / HYDROcodone; Translations: [HYDROCODONE-ACET AMINOPHEN] Drug Allergy 0 Mental Status Change [facility] Repository (1 source) amoxicillin; Translations: [AMOXICILLIN] Drug Allergy 4 [facility] Repository (20 sources) Codeine; Translations: [CODEINE] Drug Allergy 1 [facility] Repository (17 sources) HYDROcodone; Translations: [hydrocodone bitartrate] Drug Allergy 2 [facility] Comment on above: NIGHTMARES (17 sources) Morphine; Translations: [MORPHINE] Drug Allergy 9 Mental Status Change [facility] Medications Current Medications Medication Drug Class(es) Dates Sig (Normalized) Sig (Original) [id number] 200 actuat albuterol 0.09 mg/actuat metered dose inhaler (20 sources) beta2-Adrenergic Agonist Start: 2024 End: 03-31-2024 take 2 puff(s) by inhalation every six hours as needed Albuterol Sulfate 90 mcg/actuation HFA aerosol inhaler Active 0 .ROUTE .COMPLEX 8.5 2 March 31, 2024 9:55am INHALE 2 PUFFS EVERY 6 HOURS NEEDED FOR SHORTNESS OF BREATH Start: 02-07-2023 End: 01-08-2024 take 2 puff(s) by inhalation every six hours as needed Albuterol Sulfate 90 mcg/actuation HFA aerosol inhaler Discontinued 0 .ROUTE .COMPLEX 8.5 2 December 28, 2023 1:29pm January 08, 2024 [...] 2 PUFF INHALATION EVERY 6 HOURS 8.August 041 5:04pm October 26, 2021 9:40am Start: 10-22-2020 End: 10-22-2020 Albuterol Sulfate 90 mcg/act uation HFA aerosol inhaler Discontinued g INHALATION October 22, 2020 1:00am October 22, 2020 9:22am Start: 10-22-2020 End: 02-07-2023 Albuterol Sulfate (Proair Hf a) 90 mcg/actuation HFA aerosol inhaler Discontinued 2 NMA INHALATION EVERY 6 HOURS as needed for shortness of breath or wheezing 8.5 1 August 09, 2022 3:23pm October 02, 2022 [...] as needed. 18 g 2 11/10/2024 Active amLODIPine 5 mg oral tablet (20 sources) Dihydropyridine Calcium Channel Alicia Start: 05-28-2023 End: 07-22-2025 take 1 tablet by mouth once amLODIPine (NORVASC) 5 mg tablet Take 1 tablet by mouth every afternoon. 90 tablet 1 01/23/2025 07/22/2025 Active atorvastatin 20 mg oral tablet (20 sources) HMG-CoA Reductase Inhibitor Start: 04-11-2024 End: 07-22-2025 take 1 tablet by mouth once daily for hyperlipidemia atorvastatin (LIPITOR) 20 mg tablet Indications: Other hyperlipidemia Take 1 tablet by mouth once daily. For cholesterol. 90 tablet 1 01/23/2025 07/22/2025 Active Cenobamate (16 sources) Start: 10-26-2021 Cenobamate (Xcopri Titration Pack) 150 mg (14)- [...] 28, 2023 9:49am 150 mg PO PO; cenobamate 200 mg oral tablet (20 sources) Start: 05-28-2023 End: 01-01-2025 take 1 tablet by mouth once daily XCOPRI 200 mg tablet Take 200 mg by mouth once daily. 04/07/2024 Active Start: 02-21-2022 take 1 tablet by senia th at bedtime Xcopri 200 MG Oral Tablet TAKE 1 TABLET Bedtime Quantity: 30 Refills: 5 Ordered: 21-Feb-2022 Alvin Tyler MD Start : 21-Feb-2022 Active DULoxetine 30 mg delayed release oral capsule (7 sources) Serotonin and Norepinephrine Reuptake Inhibitor Start: 01-01-2025 take 1 capsule by mouth once daily, then take 2 capsules by mouth once daily Duloxetine 30 mg capsule,delayed release(DR/EC) Active 60 mg PO .COMPLEX 60 January 01, 2025 12:00am take 1 capsule (30mg) po qd x 2 weeks then increase to 2 capsules (60mg) po qd thereafter escitalopram 10 mg oral tablet (20 sources) Serotonin Reuptake Inhibitor Start: 2024 End: 07-22-2025 take 1 tablet by mouth once escitalopram oxalate (LEXAPRO) 10 mg tablet Take 1 tablet by mouth every afternoon. 90 tablet 1 01/23/2025 07/22/2025 Active Start: 01-18-2024 End: 2024 take 0.5 tablet by mouth once daily, then take 1 tablet by mouth once daily Escitalopram Oxalate (Lexapro) 10 mg tablet Discontinued 10 mg PO DAILY 30 January 18, 2024 12:00am 2024 4:32pm Take 1/2 tablet daily x 2 weeks then increase to 1 tablet daily levETIRAcetam 750 mg oral ta blet (20 sources) Start: 01-07-2024 levETIRAcetam 750 mg oral tablet 0 Refill(s) Start Date: 01/07/24 Status: Ordered Start: 04-05-2021 End: 10-15-2023 take 1500 mg by mouth twice daily Levetiracetam Active 1500 MG PO TWICE A DAY 120 October 15, 2023 9:38am Start: 01-31-2021 End: 03-03-2025 take 2 tablets by mouth twice daily Levetiracetam 750 mg tablet Active 1500 mg PO TWICE A DAY March 03, 2025 2:24pm Start: 01-04-2021 End: 04-05-2021 Levetiracetam (Keppra) 1,000 [...] mouth two times a day. 07/23/2020 Active loperamide hydrochloride 2 mg oral capsule (7 sources) Opioid Agonist Start: 01-11-2024 take 1 capsule by mouth every four hours as needed Loperamide 2 mg Capsule Active 2 mg PO EVERY 4 HOURS NEEDED as needed for Loose Stools 0 January 11, 2024 12:00am losartan potassium 25 mg oral tablet (20 sources) Angiotensin 2 Receptor Alicia Start: 06-26-2024 End: 07-22-2025 take 1 tablet by mouth once daily losartan (COZAAR) 25 mg tablet Indications: Primary hypertension Take 1 tablet by mouth once daily. 90 tablet 1 01/23/2025 07/22/2025 Active meloxicam 7.5 mg oral tablet (5 sources) Nonsteroidal Anti-inflammatory Drug Start: 01-16-2025 take 1 tablet by mouth twice daily as needed for pain Meloxicam 7.5 mg tablet Active 7.5 mg PO TWICE A DAY as needed for pain 60 5 January 16, 2025 12:00am 10 actuat olodaterol 0.0025 mg/actuat / tiotropium 0.0025 mg/actuat inhalation spray (19 sources) Anticholinergic, beta2-Adrenergic Agonist Start: 01-01-2025 Tiotropium-Olodate rol (Stiolto Respimat) 2.5-2.5 mcg/actuation mist Active 2 NMA INHALATION daily January 01, 2025 12:00am Start: 07-23-2024 End: 04-23-2025 tiotropium-olodaterol (STIOL TO RESPIMAT) 2.5-2.5 mcg/actuation inhaler Indications: Tobacco use Inhale 2 puffs as instructed once daily. 60 each 2 01/23/2025 04/23/2025 Active omeprazole 40 mg delayed release oral capsule (20 sources) Proton Pump Inhibitor Start: 01-11-2024 omeprazo le (PRILOSEC) 40 mg capsule Take 1 capsule by mouth as needed. 01/11/2024 Active Start: 07-05-2021 End: 09-24-2023 take 1 capsule by mouth once daily 30 minutes before breakfast Omeprazole 40 mg capsule,delayed release(DR/EC) Discontinued 40 mg PO DAILY 60 0 September 10, 2023 5:50pm September 24, 2023 5:53pm Take 30 minutes before breakfast 24 hr oxybutynin chloride 10 mg extended release oral tablet (9 sources) Cholinergic Muscarinic Antagonist Start: 01-07-2024 take 10 tablets by mouth every hour oxybutynin 10 mg/24 hr oral tablet, extended release 0 Refill(s) Start Date: 01/07/24 Status: Ordered Start: 10-15-2023 End: 02-04-2024 take 1 tablet by mouth every twenty-four hours at bedtime Oxybutynin Chloride 10 mg tablet extended release 24hr Discontinued 10 mg PO AT BEDTIME 30 4 October 15, 2023 1:00am February 04, 2024 9:22am thiamine 100 mg oral tablet (20 sources) Start: 04-09-2024 End: 03-03-2025 take 1 tablet by mouth once daily thiamine (VITAMIN B1) 100 mg tablet Take 1 tablet by mouth once daily. 90 tablet 1 04/09/2024 Active Start: 06-20-2023 End: 01-08-2024 take 1 tablet by mouth once daily at mealtime Thiamine Hcl (Vitamin B1) (Vitamin B-1) 100 mg Tablet Discontinued 100 mg PO DAILY WITH MEALS 30 June 20, 2023 12:00am January 08, 2024 3:43am Start: 01-31-2021 End: 06-16-2023 take 1 tablet by mouth once daily Thiamine Hcl (Vitamin B1) 100 mg Tablet Discontinued 100 mg PO DAILY March 11, 2021 12:00am June 16, 2023 1:33pm Start: 06-22-2020 End: 07-22-2020 take 1 tablet by mouth once daily Thiamine Hcl (Vitamin B1) 100 mg tablet Discontinued 100 mg PO DAILY 90 June 22, 2020 3:47pm July 22, 2020 3:08pm divalproex sodium 500 mg delayed release oral [...] Discontinued 500 mg PO TWICE A DAY 180 September 30, 2024 9:17am January 01, 2025 8:50am Start: 06-27-2014 End: 06-29-2014 take 2 capsules by mouth twice daily Valproic Acid 250 MG capsule Discontinued 500 mg PO TWICE A DAY 30 0 June 27, 2014 1:00am June 29, 2014 6:25pm Start: 06-27-2014 End: 06-29-2014 take 500 mg by mouth twice daily Valproic Acid Discontinued 500 MG PO TWICE A DAY June 27, 2014 1:00am June 29, 2014 6:25pm Completed/Discontinued Medications Medication Drug Class(es) Dates Sig (Normalized) Sig (Original) acetaminophen 500 mg oral tablet (17 sources) Start: 03-11-2021 End: 06-16-2023 take 2 [...] mg/ml / simethicone 8 mg/ml oral suspension (16 sources) Start: 12-18-2019 End: 12-25-2019 take 1 mL by mouth three times daily as needed Alum-Mag Hydroxide-Simeth 30 ML suspension Discontinued 30 mL PO 3 TIMES DAILY NEEDED as needed for Dyspepsia 1 7 December 18, 2019 8:56am December 24, 2019 12:00am December 25, 2019 12:02am Start: 12-18-2019 End: 12-25-2019 take 1 mL by mouth three times daily as needed Alum-Mag Hydroxide-Simeth Discontinued 30 ML PO 3 TIMES DAILY NEEDED 1 7 December 18, 2019 8:56am December 25, 2019 12:02am amitriptyline hydrochloride 75 mg oral tablet (20 sources) Tricyclic Antidepressant Start: 04-05-2021 End: 05-31-2023 take 1 tablet by mouth at bedtime Amitriptyline 75 mg tablet Discontinued 75 mg PO AT BEDTIME 90 1 April 05, 2021 8:37am May 31, 2023 [...] 04, 2021 12:00am April 05, 2021 8:19am clonazePAM 1 mg oral tablet (16 sources) Benzodiazepine Start: 09-14-2013 End: 06-27-2014 take 1 tablet by mouth twice daily Clonazepam 1 MG tablet Discontinued 1 mg PO TWICE A DAY September 14, 2013 1:00am June 27, 2014 10:12am flurbiprofen 100 mg oral tablet (20 sources) Nonsteroidal Anti-inflammatory Drug Start: 07-07-2024 End: 01-16-2025 take 1 tablet by mouth three times daily as needed for headache Flurbiprofen 100 mg tablet Discontinued 100 mg PO THREE TIMES A DAY as needed for headache 270 1 January 01, 2025 8:43am January 16, 2025 10:14pm folic acid 1 mg oral tablet (20 sources) Start: 02-01-2021 End: 09-30-2024 take 1 tablet by mouth once daily Folic Acid 1 mg Tablet Discontinued 1 mg PO DAILY@0800 30 30 2 June 20, 2023 12:00am October 15, 2023 9:42am ibuprofen 600 mg oral tablet (20 sources) Nonsteroidal Anti-inflammatory Drug Start: 06-01-2023 End: 06-16-2023 take 1 tablet by mouth twice daily as needed for pain Ibuprofen 600 mg tablet Discontinued 600 mg PO TWICE A DAY as needed for Headaches/musculo skeletal pain 60 5 June 01, 2023 12:00am June 16, 2023 1:33pm take 1 tablet by senia th every six hours as needed ibuprofen (MOTRIN) 600 mg tablet Take 60 0 mg by mouth every 6 hours as needed. Active levOCARNitine 330 mg oral tablet (20 sources) Carnitine Analog Start: 10-15-2023 End: 01-01-2025 take 1 tablet by mouth three times daily at mealtime Levocarnitine 330 mg tablet Discontinued 660 mg PO THREE TIMES A DAY 540 1 September 30, 2024 9:17am January 01, 2025 8:50am must administer with a meal/food LORazepam 1 mg oral tablet (16 sources) Benzodiazepine Start: 06-27-2014 End: 06-29-2014 Lorazepam 1 MG tablet Discontinued 1 mg PO THREE TIMES A DAY 50 0 June 27, 2014 1:00am June 29, 2014 6:24pm 1 mg by mouth 3 times a day for 5 days, followed by an milligram by mouth twice a day 5 days, followed by 0.5 mg by mouth twice a day 5 days, then discontinued. Administer 1 mg by mouth 3 times a day as needed for agitation, anxiety. pantoprazole 40 mg delayed release oral tablet (20 sources) Proton Pump Inhibitor Start: 12-18-2019 End: 01-17-2020 take 1 tablet by mouth twice daily Pantoprazole 40 MG tablet Discontinued 40 mg PO TWICE A DAY 60 30 0 December 18, 2019 12:00am January 16, 2020 12:00am January 17, 2020 12:02am Start: 10-10-2017 End: 10-13-2017 take 1 tablet by mouth once daily Pantoprazole 40 MG tablet Discontinued 40 mg PO DAILY October 10, 2017 1:00am October 13, 2017 9:51am acid reflux PHENobarbital 97.2 mg oral tablet (16 sources) Start: 12-13-2013 End: 06-27-2014 take 1 tablet by mouth once daily Phenobarbital 97.2 MG tablet Discontinued 97.2 mg PO DAILY 7 0 December 13, 2013 12:00am June 27, 2014 10:13am QUEtiapine 25 mg oral tablet (20 sources) Atypical Antipsychotic Start: 06-22-2020 End: 04-09-2024 take 1 tablet by mouth once daily Quetiapine 25 mg tablet Discontinued 25 mg PO DAILY April 05, 2021 12:00am October 02, 2022 11:14am On Hold: Order Changed raNITIdine 150 mg oral tablet (16 sources) Histamine-2 Receptor Antagonist Start: 09-14-2013 End: 06-27-2014 take 1 tablet by mouth once daily Ranitidine (Zantac) 150 MG tablet Discontinued 150 mg PO DAILY September 14, 2013 1:00am June 27, 2014 10:13am rifAXIMin 550 mg oral tablet (10 sources) Rifamycin Antibacterial Start: 09-25-2023 End: 01-08-2024 take 1 tablet by mouth twice daily Rifaximin 550 mg tablet Discontinued 550 mg PO TWICE A DAY 60 2 September 25, 2023 1:00am January 08, 2024 3:43am rizatriptan 10 mg oral tablet (16 sources) Serotonin-1b and [...] 23, 2022 3:49pm October 02, 2022 11:14am DEPRESSION Start: 11-24-2020 End: 10-02-2022 take 200 mg by mouth once daily Sertraline Discontinue d 200 MG PO DAILY 180 January 23, 2022 3:49pm October 02, 2022 11:14am Start: 08-25-2020 End: 11-24-2020 take 1 tablet by mouth once daily Sertraline 100 mg tablet Discontinued 100 mg PO DAILY 90 August 25, 2020 12:28pm November 24, 2020 9:20am DEPRESSION Start: 06-22-2020 End: 04-09-2024 take 1 tablet by mouth once daily Sertraline 50 MG tablet Discontinued 50 mg PO DAILY July 22, 2020 3:08pm July 27, 2020 6:24pm DEPRESSION SUMAtriptan 100 mg oral tablet (20 sources) Serotonin-1b and Serotonin-1d Receptor Agonist Start: [...] PO traZODone hydrochloride 50 mg oral tablet (16 sources) Serotonin Reuptake Inhibitor Start: 06-22-2020 End: 06-22-2020 take 1 tablet by mouth at bedtime as needed Trazodone 50 mg tablet Discontinued 50 mg PO AT BEDTIME as needed June 22, 2020 1:00am June 22, 2020 3:46pm 24 hr verapamil hydrochloride 120 mg extended release oral capsule (16 sources) Calcium Channel Alicia Start: 04-05-2021 End: 05-28-2023 take 1 capsule by mouth once daily Verapamil 120 mg capsule,ext rel. pellets 24 hr Discontinued 180 mg PO DAILY April 05, 2021 12:00am May 28, 2023 9:47am zonisamide 100 mg oral capsule (20 sources) Anti-epileptic Agent Start: 05-31-2023 End: 10-15-2023 take 300 mg by mouth at bedtime Zonisamide Active 300 MG PO AT BEDTIME 90 October 15, 2023 9:38am Start: 02-21-2022 take 3 capsules by m outh at bedtime Zonisamide 100 MG Oral Capsule TAKE 3 CAPSULES AT BEDTIME Quantity: 270 Refills: 2 Ordered: 21-Feb-2022 Alvin Tyler MD Start : 21-Feb-2022 Active Start: 04-05-2021 End: 02-04-2024 take 1 capsule by mouth at bedtime Zonisamide 100 mg capsule Discontinued 300 mg PO AT BEDTIME 90 5 October 15, 2023 9:38am February 04, 2024 9:22am Start: 04-05-2021 End: 05-28-2023 take 200 mg by mouth at bedtime Zonisamide Discontinue d 200 MG PO AT BEDTIME April 05, 2021 12:00am May 28, 2023 9:48am Problems Active Problems Problem Classification Problem Date Documented Da te Episodic/Chronic Acute cerebrovascular disease (20 sources) Hemorrhage into subarachnoid space of neuraxis; Translations: [Nontraumatic subarachnoid hemorrhage, unspecified] Onset: 9 01-27-2021 Chronic Alcohol-related disorders (20 sources) Alcohol abuse; Translations: [Alcohol abuse, uncomplicated] Onset: 0 Resolved: 9 01-27-2021 Chronic Anxiety disorders (20 sources) Mixed anxiety and depressive disorder; Translations: [Anxiety disorder, unspecified] Onset: 0 06-22-2020 Chronic Chronic obstructive pulmonary disease and bronchiectasis (2 sources) Chronic obstructive lung disease; Translations: [Chronic obstructive pulmonary disease, unspecified] Onset: 5 03-03-2025 Chronic Diabetes mellitus without complication (15 sources) Hyperglycemia; Translations: [Hyperglycemia, unspecified] 05-28-2023 Episodic Diseases of white blood cells (16 sources) Leukocytosis; Translations: [Elevated white blood cell count, unspecified] Onset: 9 06-18-2019 Chronic Disorders of lipid metabolism (5 sources) Hyperlipidemia; Translations: [Other hyperlipidemia] Onset: 5 04-11-2024 Chronic Epilepsy; convulsions (20 sources) Seizure disorder; Translations: [Epilepsy, unspecified, not intractable, without status epilepticus] Onset: 3 Resolved: 2 Chronic Epilepsy; convulsions (20 sources) Post-ictal state; Translations: [Unspecified convulsions] 03-20-2021 Episodic Epilepsy; convulsions (6 sources) Epilepsy; convulsions; Translations: [Use of cannabis] Esophageal disorders (20 sources) Gastroesophageal reflux disease; Translations: [Gastro-esophageal reflux disease without esophagitis] Onset: 2 Chronic Essential hypertension (20 sources) Benign essential hypertension; Translations: [Essential (primary) hypertension] Onset: 0 Chronic Fluid and electrolyte disorders (20 sources) Hyponatremia; Translations: [Hypo-osmolality and hyponatremia] 07-22-2020 Episodic Genitourinary symptoms and ill-defined conditions (9 sources) Nocturnal enuresis; Translations: [Nocturnal enuresis] 10-15-2023 Chronic Headache; including migraine (20 sources) Tension-type headache; Translations: [Tension-type headache, unspecified, not intractable] 06-03-2023 Chronic Headache; including migraine (16 sources) Chronic headache disorder; Translations: [Chronic headache disorder] 01-04-2021 Episodic Headache; including migraine (1 source) Headache; including migraine; Translations: [Headache, unspecified] Onset: 4 Inflammation; infection of eye (except that caused by tuberculosis or sexually transmitteddisease) (16 sources) Toxic conjunctivitis; Translations: [Acute toxic conjunctivitis, bilateral] 03-03-2019 Episodic Mood disorders (20 sources) Bipolar disorder; Translations: [Bipolar disorder, unspecified] Onset: 2 01-27-2021 Chronic Mood disorders (3 sources) Mood disorders Nausea and vomiting (17 sources) Nausea; Translations: [Nausea] Episodic Noninfectious gastroenteritis (13 sources) Chronic diarrhea; Translations: [Noninfective gastroenteritis and colitis, unspecified] 09-24-2023 Episodic Nutritional deficiencies (20 sources) Undernutrition; Translations: [Mild protein-calorie malnutrition] Onset: 9 01-27-2021 Chronic Other circulatory disease (16 sources) Elevated blood-pressure reading without diagnosis of hypertension; Translations: [Elevated blood-pressure reading, without diagnosis of hypertension] 07-22-2020 Episodic Other gastrointestinal disorders (8 sources) Diarrhea; Translations: [Diarrhea, unspecified] 04-11-2024 Episodic Other gastrointestinal disorders (7 sources) History of pancreatitis; Translations: [Personal history of other diseases of the digestive system] 06-26-2024 Episodic Other liver diseases (11 sources) Elevated liver enzymes level; Translations: [Abnormal levels of other serum enzymes] 09-25-2023 Episodic Other liver diseases (1 source) Abnormal levels of other serum enzymes; Translations: [Other nonspecific abnormal serum enzyme levels] 10-15-2023 Episodic Other lower respiratory disease (4 sources) Wheezing; Translations: [Wheezing] 07-23-2024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 [place], [address] Hematocrit (Bld) [Volume fraction] 45.2 % Normal 40-54 [facility] Comment on above: Performed By: #### L 501.2450, L500.4050, L501.9100, L100.0100, L505.5000 ####[facility] [address] [place], [address] Hemoglobin (Bld) [Mass/Vol] 15.9 g/dL Normal 13.0-16.5 [facility] Comment on above: Performed By: #### L 501.2450, L500.4050, L501.9100, L100.0100, L505.5000 ####[facility] [address] [place], [address] IG% 0.300 Normal 0.0-0.9 [facility] Comment on above: Result Comment: IG% - Immature Granulocytes (promyelocytes, myelocytes and metamyelocytes) > 1% indicates that a LEFT SHIFT is Present. Performed By: #### L 501.2450, L500.4050, L501.9100, L100.0100, L505.5000 ####[facility] [address] [place], [address] Lymphocytes/100 WBC (Bld) 31.6 % Normal 19-41 [facility] Comment on above: Performed By: #### L 501.2450, L500.4050, L501.9100, L100.0100, L505.5000 ####[facility] [address] [place], [address] MCH (RBC) [Entitic mass] 34.6 pg High 27.0-32.0 [facility] Comment on above: Performed By: #### L 501.2450, L500.4050, L501.9100, L100.0100, L505.5000 ####[facility] [address] [place], [address] MCHC (RBC) [Mass/Vol] 35.2 g/dL Normal 32-36 [facility] Comment on above: Performed By: #### L 501.2450, L500.4050, L501.9100, L100.0100, L505.5000 ####[facility] [address] [place], [address] MCV (RBC) [Entitic vol] 98.3 fL High 80-94 [facility] Comment on above: Performed By: #### L 501.2450, L500.4050, L501.9100, L100.0100, L505.5000 ####[facility] [address] [place], [address] Monocytes/100 WBC (Bld) 6.8 % Normal 0-10 [facility] Comment on above: Performed By: #### L 501.2450, L500.4050, L501.9100, L100.0100, L505.5000 ####[facility] [address] [place], [address] Neutrophils/100 WBC (Bld) 53.9 % Normal 47-70 [facility] Comment on above: Performed By: #### L 501.2450, L500.4050, L501.9100, L100.0100, L505.5000 ####[facility] [address] [place], [address] Nucleated RBC (Bld) [#/Vol] 0 10*3/uL Normal 0-5 [facility] Comment on above: Performed By: #### L 501.2450, L500.4050, L501.9100, L100.0100, L505.5000 ####[facility] [address] [place], [address] Platelet mean volume (Bld) [Entitic vol] 9.0 fL Normal 6.2-12.0 [facility] Comment on above: Performed By: #### L 501.2450, L500.4050, L501.9100, L100.0100, L505.5000 ####[facility] [address] [place], [address] Platelets (Bld) [#/Vol] 236 10*3/uL Normal 150-450 [facility] Comment on above: Performed By: #### L 501.2450, L500.4050, L501.9100, L100.0100, L505.5000 ####[facility] [address] [place], [address] RBC (Bld) [#/Vol] 4.60 10*6/uL Normal 4.6-6.2 [facility] Comment on above: Performed By: #### L 501.2450, L500.4050, L501.9100, L100.0100, L505.5000 ####[facility] [address] [place], [address] RDW SD 46.1 fl High 35.1-43.9 [facility] Comment on above: Performed By: #### L 501.2450, L500.4050, L501.9100, L100.0100, L505.5000 ####[facility] [address] [place], [address] WBC (Bld) [#/Vol] 7.5 10*3/uL Normal 4.4-11.0 [facility] Comment on above: Performed By: #### L 501.2450, L500.4050, L501.9100, L100.0100, L505.5000 ####[facility] [address] [place], [address] Comprehensive Metabolic Prof [facility] 06-14-2024 Albumin [Mass/Vol] 3.5 g/dL Normal 3.2-5.0 [facility] Comment on above: Performed By: #### L 501.2450, L500.4050, L501.9100, L100.0100, L505.5000 ####[facility] [address] [place], [address] Albumin/Globulin [Mass ratio] 1.0 {ratio} Normal 0.9-2.4 [facility] Comment on above: Performed By: #### L 501.2450, L500.4050, L501.9100, L100.0100, L505.5000 ####[facility] [address] [place], [address] ALK P 407 U/L High 45-117 [facility] Comment on above: Performed By: #### L 501.2450, L500.4050, L501.9100, L100.0100, L505.5000 ####[facility] [address] [place], [address] ALT [Catalytic activity/Vol] 131 U/L High 16-61 [facility] Comment on above: Performed By: #### L 501.2450, L500.4050, L501.9100, L100.0100, L505.5000 ####[facility] [address] [place], [address] AST [Catalytic activity/Vol] 146 U/L High 15-37 [facility] Comment on above: Result Comment: Slig ht Hemolysis, Result may be falsely increased. Performed By: #### L 501.2450, L500.4050, L501.9100, L100.0100, L505.5000 ####[facility] [address] [place], [address] Bilirubin [Mass/Vol] 0.60 mg/dL Normal 0.20-1.00 [facility] Comment on above: Result Comment: For patients on eltrombopag therapy, use of Dimension [place] TBIL is not recommended. Performed By: #### L 501.2450, L500.4050, L501.9100, L100.0100, L505.5000 ####[facility] [address] [place], [address] BUN/CRE 7.7 RATIO Low 10-20 [facility] Comment on above: Performed By: #### L 501.2450, L500.4050, L501.9100, L100.0100, L505.5000 ####[facility] [address] [place], [address] CA,Total 8.6 mg/dL Normal 8.5-10.1 [facility] Comment on above: Performed By: #### L 501.2450, L500.4050, L501.9100, L100.0100, L505.5000 ####[facility] [address] [place], [address] Chloride [Moles/Vol] 96 mmol/L Low 98-107 [facility] Comment on above: Performed By: #### L 501.2450, L500.4050, L501.9100, L100.0100, L505.5000 ####[facility] [address] [place], [address] CO2 [Moles/Vol] 24.0 mmol/L Normal 21.0-32.0 [facility] Comment on above: Performed By: #### L 501.2450, L500.4050, L501.9100, L100.0100, L505.5000 ####[facility] [address] [place], [address] Creatinine [Mass/Vol] 0.65 mg/dL Low 0.70-1.30 [facility] Comment on above: Result Comment: The validity of the calculated GFR GFRAA in patients over 70 years has not been determined. Clinical correlation is essential. Performed By: #### L 501.2450, L500.4050, L501.9100, L100.0100, L505.5000 ####[facility] [address] [place], [address] EST GFR - AA 165 mL/min Normal >60 [facility] Comment on above: Result Comment: Afri can Swedish GFR Calc Performed By: #### L 501.2450, L500.4050, L501.9100, L100.0100, L505.5000 ####[facility] [address] [place], [address] GAP 13 Normal 5-15 [facility] Comment on above: Performed By: #### L 501.2450, L500.4050, L501.9100, L100.0100, L505.5000 ####[facility] [address] [place], [address] GFR/1.73 sq M.predicted among non-blacks MDRD (S/P/Bld) [Vol rate/Area] 137 mL/min/{1.73_m2} Normal >60 [facility] Comment on above: Result Comment: Non- GFR Calc Performed By: #### L 501.2450, L500.4050, L501.9100, L100.0100, L505.5000 ####[facility] [address] [place], [address] Globulin (S) [Mass/Vol] 3.5 g/dL Normal 2.2-4.2 [facility] Comment on above: Performed By: #### L 501.2450, L500.4050, L501.9100, L100.0100, L505.5000 ####[facility] [address] [place], [address] Glucose [Mass/Vol] 96 mg/dL Normal 74-106 [facility] Comment on above: Performed By: #### L 501.2450, L500.4050, L501.9100, L100.0100, L505.5000 ####[facility] [address] [place], [address] Potassium [Moles/Vol] 4.1 mmol/L Normal 3.5-5.1 [facility] Comment on above: Result Comment: Slig ht Hemolysis, Result may be falsely increased. Performed By: #### L 501.2450, L500.4050, L501.9100, L100.0100, L505.5000 ####[facility] [address] [place], [address] Sodium [Moles/Vol] 133 mmol/L Low 136-145 [facility] Comment on above: Performed By: #### L 501.2450, L500.4050, L501.9100, L100.0100, L505.5000 ####[facility] [address] [place], [address] T PROT 7.0 g/dL Normal 6.4-8.2 [facility] Comment on above: Performed By: #### L 501.2450, L500.4050, L501.9100, L100.0100, L505.5000 ####[facility] [address] [place], [address] Urea nitrogen [Mass/Vol] 5 mg/dL Low 7-18 [facility] Comment on above: Performed By: #### L 501.2450, L500.4050, L501.9100, L100.0100, L505.5000 ####[facility] [address] [place], [address] Emergency Department Summary on 06-14-2024 Emergency Department Summary [facility] Medical Records Department [address] [facility] [place] [address] Emergency Department Summary 06/14/24 MR#: [id number] Acct: [id number] Name: JERMAN HENSLEY Rep #: [id number] : 1970 54 From: Karl Duenas DO PCP: Dr. Vasu Blackwell MD Status:REG ER Location: ED HPI History of Present Illness Chief Complaint: [facility] Medical History Alcohol dependence Epilepsy History of [...] noted MEDIC (more content not included)... Normal [facility] [facility] H AND P Exam - [facility] 06-14-2024 H&P Exam - Hospitalist [facility] Medical Records Department [address] [place] [address] H P Exam - Hospitalist 06/14/242041 MR#: [id number] Acct: [id number] Name: JERMAN HENSLEY Rep #: [id number] : 1970 54 From: Davy Douglass DO PCP: Dr. Vasu Blackwell MD Status:ADM IN Location: MS3 [id number] HPI - General General Date of Admission: 06/14/24 Date of Service: 06/14/24 Chief Complaint: Wants Help with EtOH Detox. HPI Narrative JERMAN HENSLEY, is a 54 M with a past [...] January 11, 2024 for who presents to [facility] ER complaining of once again wanting help with EtOH detoxification. Mr. Hensley reports his symptoms began approximately 1-2 weeks [...] is expected to extend beyond 2 midnights. [facility] Medical History (Updated 06/15/24 @ 03:54 by [...] Eyes: Pa (more content not included)... Normal [facility] Lipaseon 06-14-2024 Lipase [Catalytic activity/Vol] 18 U/L Normal 13-75 [facility] Comment on above: Result Comment: Arturo charlton note: LIPASE revised reference range effective 22. New Lipase methodology. Expected to produce lower values than the previous assay method. NEW Reference Range: 13 - 75 U/L Performed By: #### L 501.2450, L500.4050, L501.9100, L100.0100, L505.5000 ####[facility] [address] [place] [address] Urine Drug Screen (VISTA)on 06-14-2024 AMPHETAMINES Negative Normal <1000 ng/mL [facility] Comment on above: Performed By: #### L 501.2450, L500.4050, L501.9100, L100.0100, L505.5000 ####[facility] [address] [place] [address] BARBITIURATES Negative Normal < 200 ng/mL [facility] Comment on above: Performed By: #### L 501.2450, L500.4050, L501.9100, L100.0100, L505.5000 ####[facility] [address] [place] [address] BENZODIAZIPINE Negative Normal < 200 ng/mL [facility] Comment on above: Performed By: #### L 501.2450, L500.4050, L501.9100, L100.0100, L505.5000 ####[facility] [address] [place] [address] COCAINE Negative Normal < 300 ng/mL [facility] Comment on above: Performed By: #### L 501.2450, L500.4050, L501.9100, L100.0100, L505.5000 ####[facility] [address] [place] [id number] ECSTACY Negative Normal < 500 ng/mL [facility] Comment on above: Performed By: #### L 501.2450, L500.4050, L501.9100, L100.0100, L505.5000 ####[facility] [address] [place], [address] METHADONE Negative Normal < 300 ng/mL [facility] Comment on above: Performed By: #### L 501.2450, L500.4050, L501.9100, L100.0100, L505.5000 ####[facility] [address] [place], [address] OPIATES Negative Normal < 300 ng/mL [facility] Comment on above: Performed By: #### L 501.2450, L500.4050, L501.9100, L100.0100, L505.5000 ####[facility] [address] [place], [address] PCP Negative Normal < 25 ng/mL [facility] Comment on above: Performed By: #### L 501.2450, L500.4050, L501.9100, L100.0100, L505.5000 ####[facility] [address] [place], [address] THC Positive Abnormal < 50 ng/mL [facility] Comment on above: Performed By: #### L 501.2450, L500.4050, L501.9100, L100.0100, L505.5000 ####[facility] [address] [place], [address] VISTA UDS PH 5 Normal [facility] Comment on above: Performed By: #### L 501.2450, L500.4050, L501.9100, L100.0100, L505.5000 ####[facility] [address] [place], [address] Valproic Acid (Depakene) Morgan edward 06-14-2024 VALPROIC ACID 32 ug/mL Low 50-100 [facility] Comment on above: Performed By: #### L 501.8100 ####[facility] [address] [place], [place], [address] CNPNon 04-11-2024 CNPN Telephone (FAMPWS) ----- BENDEBRARHODA ([id number]) 1970 M Date Time Provider Department 04/11/24 WALDO SURESH [facility] During your visit today, we recorded the following information about you: Mya Holloway MA 04/11/2024 2:04 PM Signed ----- Message from Waldo Suresh MD sent at 04/11/2024 1:54 PM EDT [...] [facility] [place] SAMSON Pak Christopher B, MD 04/11/2024 2:13 PM Signed Rx sent for lipitor. Recheck CMP and fasting lipid panel in 3 months. Sonya Kang LPN 04/11/2024 2:43 PM Signed Patient updated. Sonya Kang LPN Allergies As of Date: 04/11/2024 Noted Allergy Reaction MORPHINE 06/03/2019 1 - Mental Status Change Comments: Patient's contact reports nightmares VICODIN (HYDROCODONE-ACETAMINOPHE *11/16/2009 1 - Mental Status Change Comments: States has bad nightmares Date Reviewed: 04/09/2024 Reviewed by: Mya Holloway MA - Fully Assessed Reason for Visit: Results [95] Primary Visit Diagnosis:Other hyperlipidemia [E78.49] Order(s):atorvastatin (LIPITOR) 20 mg tabletTake 1 tablet by mouth once daily. For cholesterol.Disp: 90 tabletRfl: 0 COMPREHENSIVE METABOLIC PANEL [SQCMP] Order #: [id number] FUTURE LIPID PANEL BASIC [SQLIPB] Order #: [id number] FUTURE Prescriptions as of 04/11/2024 - atorvastatin [...] hematoma (HCC) [S06.5XAA] 06/01/2019 DTs (delirium tremens) ([facility]) [F10.931] 06/02/2019 06/18/2019 SAH (subarachnoid hemorrhage) ([facility]) [I60.9] 06/02/2019 Closed fracture of one rib of left side [S22.32*06/02/2019 Closed fracture of vault of skull ([facility]) [S02.0X*06/02/2019 Aphasia [R47.01] 06/02/2019 06/18/2019 Malnutrition of mild degree ([facility]) [E44.1] 06/05/2019 Acute respiratory failure with hypercapnia (HCC*06/07/2019 06/18/2019 Fever [R50.9] 06/13/2019 06/18/2019 Leukocytosis [D72.829] 06/13/2019 Cavitary pneumonia [J18.9, J98.4] 06/13/2019 Alcoholism in remission ([facility]) [F10.21] Marijuana use [F12.90] Prescriptions ordered this encounter Disp Refills Start End ATORVASTATIN 20 MG TABLET 90 t* 0 04/11/2024 07/10/2024 Route: ORAL Sig: Take 1 tablet by mouth once daily. For cholesterol. Encounter Status:Closed by SONYA KANG on 04/11/24 Normal [facility] VITAMIN B1 (THIAMINE), WHOLE BLOODOrdered By: Mindy Garg on 04-11-2024 Interpretation and review of laboratory results Normal [facility] Thiamine (Bld) [Moles/Vol] 179.7 nmol/L 84.3 - 213.3 nmol/L [facility] Comment on above: This assay measures the concentration of thiamine diphosphate (TDP), the primary active form of vitamin B1. Approximately 90 percent of vitamin B1 present in whole blood is TDP. Thiamine and thiamine monophosphate, which comprise the remaining 10 percent, are not measured. This test was developed and its performance characteristics determined by [facility]'s [facility] Pathology and Laboratory Medicine [place] ([facility]). It has not been cleared or approved by the FDA. [facility] is regulated under CLIA as qualified to perform high-complexity testing. This test is used for clinical purposes. It should not be regarded as investigational or for research. [facility] Comprehensive metabolic 2000 panelon 04-10-2024 Albumin [Mass/Vol] 4.3 g/dL 3.9 - 4.9 g/dL [facility] ALP [Catalytic activity/Vol] 85 U/L 38 - 113 U/L [facility] ALT [Catalytic activity/Vol] 23 U/L 10 - 54 U/L [facility] Anion gap [Moles/Vol] 15 mmol/L 8 - 15 mmol/L [facility] AST [Catalytic activity/Vol] 22 U/L 14 - 40 U/L [facility] Bilirubin [Mass/Vol] 0.2 mg/dL 0.2 - 1 .3 mg/dL [facility] Calcium [Mass/Vol] 8.5 mg/dL 8.5 - 10. 2 mg/dL [facility] Chloride [Moles/Vol] 103 mmol/L 98 - 10 7 mmol/L [facility] CO2 [Moles/Vol] 20 mmol/L Low 22 - 30 mmol/L [facility] Creatinine [Mass/Vol] 0.65 mg/dL Low 0.73 - 1.22 mg/dL [facility] GFR/1.73 sq M.predicted among non-blacks MDRD (S/P/Bld) [Vol rate/Area] 113 mL/min/{1.73_m2} - PINF [facility] Comment on above: Estimated Glomerular Filtration [...] 106 mg/dL High 74 - 99 mg/dL [facility] Comment on above: The [place] Diabete s Association (ADA) provides guidance for [...] Standards of Medical Care in Diabetes 2016, [place] Diabetes Association. Diabetes Care. 2016.39(Suppl 1). Potassium [Moles/Vol] 4.0 mmol/L 3.7 - 5.1 mmol/L [facility] Protein [Mass/Vol] 6.6 g/dL 6.3 - 8.0 g/dL [facility] Sodium [Moles/Vol] 138 mmol/L 136 - 144 mmol/L [facility] Urea nitrogen [Mass/Vol] 8 mg/dL Low 9 - 24 mg/dL [facility] LIPID PANEL, NONFASTINGon Cholesterol [Mass/Vol] 227 mg/dL High NINF - 200 mg/dL [facility] Comment on above: <200 mg/dL, Desirabl e 200-239 mg/dL, Borderline high >239 mg/dL, High HDL Cholesterol, Nonfasting 44 mg/dL 39 - PINF mg/dL [facility] Comment on above: 40-59 mg/dL, Accepta ble >59 mg/dL, High: Negative risk factor for coronary heart disease <40 mg/dL, Low: Positive risk factor for coronary heart disease LDL Cholesterol, Nonfasting [facility] Comment on above: Unable to calculate due to increased Triglycerides. A Direct LDL Cholesterol measurement will not be performed. If clinically indicated, a fasting Basic Lipid Panel (LIPB) may be ordered. LDL/HDL Ratio, Nonfasting [facility] Comment on above: Unable to calculate due to elevated Triglycerides. Reference: 1. National Cholesterol Education Program ATP III Guideline At-A-Glance Quick Desk Reference: National Heart, Lung, and Blood [place]. National Institutes of Health. 2001: NIH Publication No. 01-3305. 2. An International Atherosclerosis Society position paper: global recommendations for the management of dyslipidemia: executive summary, Atherosclerosis. 2014: 232(2):410-413. Non HDL Cholesterol, Nonfasting 183 mg/dL [facility] mg[facility]dL [facility] Comment on above: <130 mg/dL, Optimal 130-159 mg/dL, Near optimal/above optimal 160-189 mg/dL, Borderline high 190-219 mg/dL, High >219 mg/dL, Very high Secondary prevention optimal non HDL Cholesterol levels are recommended to be <100 mg/dL Total Chol/HDL Ratio, Nonfasting 5.16 mg/dL High NINF - 5.10 mg/dL [facility] Triglycerides, Nonfasting 633 mg/dL [facility] - 150 mg/dL [facility] Comment on above: <150 mg/dL, Normal 150-199 mg/dL, Borderline high 200-499 mg/dL, High >499 mg/dL, Very high VLDL Cholesterol, Nonfasting [facility] Comment on above: Unable to calculate due to elevated Triglycerides. No Panel Informationon 04-10 Interpretation and review of laboratory results Abnormal [facility] THYROID STIMULATING HORMONEo n 04-10-2024 TSH Qn 1.370 m[IU]/L [facility] TSH Qnon 04-10-2024 Interpretation and review of laboratory results Normal [facility] CBC W Auto Differential pane l (Bld)on 04-09-2024 Basophils (Bld) [#/Vol] 0.04 10*3/uL [facility] Basophils/100 WBC (Bld) 0.5 % [facility] Differential cell count method Nom (Bld) Auto [facility] Eosinophils (Bld) [#/Vol] 0.22 10*3/uL [facility] Eosinophils/100 WBC (Bld) 2.7 % [facility] Erythrocyte distribution width (RBC) [Ratio] 13.1 % 11.5 - 15.0 % [facility] Hematocrit (Bld) [Volume fraction] 46.8 % 39.0 - 51.0 % [facility] Hemoglobin (Bld) [Mass/Vol] 15.6 g/dL 13.0 - 17.0 g/dL [facility] Immature granulocytes (Bld) [#/Vol] 0.03 10*3/uL [facility] Immature granulocytes/100 WBC (Bld) 0.4 % [facility] Interpretation and review of laboratory results Abnormal [facility] Lymphocytes (Bld) [#/Vol] 1.71 10*3/uL [facility] Lymphocytes/100 WBC (Bld) 20.9 % [facility] MCH (RBC) [Entitic mass] 34.6 pg High 26.0 - 34.0 pg [facility] MCHC (RBC) [Mass/Vol] 33.3 g/dL 30.5 - 36.0 g/dL [facility] MCV (RBC) [Entitic vol] 103.8 fL High 80.0 - 100.0 fL [facility] Monocytes (Bld) [#/Vol] 0.67 10*3/uL NINF [facility] Monocytes/100 WBC (Bld) 8.2 % [facility] Neutrophils (Bld) [#/Vol] 5.52 10*3/uL [facility] Neutrophils/100 WBC (Bld) 67.3 % [facility] Nucleated RBC (Bld) [#/Vol] NINF [facility] Nucleated RBC/100 WBC (Bld) [Ratio] 0.0 % /100 WBC [facility] Platelet mean volume (Bld) [Entitic vol] 9.9 fL 9.0 - 12.7 fL [facility] Platelets (Bld) [#/Vol] 233 10*3/uL [facility] RBC (Bld) [#/Vol] 4.51 10*6/uL 4.20 - 6.0 0 m/uL [facility] WBC (Bld) [#/Vol] 8.19 10*3/uL [facility] Basophils (Bld) [#/Vol] 0.04 10*3/uL Normal <0.11 [facility] Comment on above: Order Comment: Speci men Type: BLOOD SPECIMENOrdering Facility: [facility] Address: [address] [place] [address] Performed By: #### 5 7021-8 ####[facility] LABCLIA [id number] [address] [place] Basophils/100 WBC (Bld) 0.5 % Normal [facility] Comment on above: Order Comment: Speci men Type: BLOOD SPECIMENOrdering Facility: [facility] Address: [address] [place] [address] Performed By: #### 5 7021-8 ####[facility] LABCLIA [id number] [place] [address] [place] Differential cell count method Nom (Bld) Auto Normal [facility] Comment on above: Order Comment: Speci men Type: BLOOD SPECIMENOrdering Facility: [facility] Address: [address] [place] [address] Performed By: #### 5 7021-8 ####[facility] LABCLIA [id number] [place] [address] [place] Eosinophils (Bld) [#/Vol] 0.22 10*3/uL Normal <0.46 [facility] Comment on above: Order Comment: Speci men Type: BLOOD SPECIMENOrdering Facility: [facility] Address: [address] [place] [address] Performed By: #### 5 7021-8 ####[facility] LABIA [id number] [place] [address] [place] Eosinophils/100 WBC (Bld) 2.7 % Normal [facility] Comment on above: Order Comment: Speci men Type: BLOOD SPECIMENOrdering Facility: [facility] Address: [address] [place] [address] Performed By: #### 5 7021-8 ####[facility] LABCLIA [id number] [place] [address] [place] Erythrocyte distribution width (RBC) [Ratio] 13.1 % Normal 11.5-15.0 [facility] Comment on above: Order Comment: Speci men Type: BLOOD SPECIMENOrdering Facility: [facility] Address: [address] [place] [address] Performed By: #### 5 7021-8 ####[facility] LABCLIA [id number] [place] [address] [place] Hematocrit (Bld) [Volume fraction] 46.8 % Normal 39.0-51.0 [facility] Comment on above: Order Comment: Speci men Type: BLOOD SPECIMENOrdering Facility: [facility] Address: [address] [place] [address] Performed By: #### 5 7021-8 ####[facility] LABCLIA [id number] [place] [address] [place] Hemoglobin (Bld) [Mass/Vol] 15.6 g/dL Normal 13.0-17.0 [facility] Comment on above: Order Comment: Speci men Type: BLOOD SPECIMENOrdering Facility: [facility] Address: [address] [place] [address] Performed By: #### 5 7021-8 ####[facility] LABCLIA [id number] [place] [address] [place] Immature granulocytes (Bld) [#/Vol] 0.03 10*3/uL Normal <0.10 [facility] Comment on above: Order Comment: Speci men Type: BLOOD SPECIMENOrdering Facility: [facility] Address: [address] [place] [address] Performed By: #### 5 7021-8 ####[facility] LABCLIA [id number] [place] [address] [place] Immature granulocytes/100 WBC (Bld) 0.4 % Normal [facility] Comment on above: Order Comment: Speci men Type: BLOOD SPECIMENOrdering Facility: [facility] Address: [address] [place] [address] Performed By: #### 5 7021-8 ####[facility] LABCLIA [id number] [place] [address] [place] Lymphocytes (Bld) [#/Vol] 1.71 10*3/uL Normal 1.00-4.00 [facility] Comment on above: Order Comment: Speci men Type: BLOOD SPECIMENOrdering Facility: [facility] Address: [address] [place] [address] Performed By: #### 5 7021-8 ####[facility] LABCLIA [id number] [place] [address] [place] Lymphocytes/100 WBC (Bld) 20.9 % Normal [facility] Comment on above: Order Comment: Speci men Type: BLOOD SPECIMENOrdering Facility: [facility] Address: [address] [place] [address] Performed By: #### 5 7021-8 ####[facility] LABCLIA [id number] [place] [address] [place] MCH (RBC) [Entitic mass] 34.6 pg High 26.0-34.0 [facility] Comment on above: Order Comment: Speci men Type: BLOOD SPECIMENOrdering Facility: [facility] Address: [address] [place] [address] Performed By: #### 5 7021-8 ####[facility] LABIA [id number] [place] [address] [place] MCHC (RBC) [Mass/Vol] 33.3 g/dL Normal 30.5-36.0 [facility] Comment on above: Order Comment: Speci men Type: BLOOD SPECIMENOrdering Facility: [facility] Address: [address] [place] [address] Performed By: #### 5 7021-8 ####[facility] LABCLIA [id number] [place] [address] [place] MCV (RBC) [Entitic vol] 103.8 fL High 80.0-100.0 [facility] Comment on above: Order Comment: Speci men Type: BLOOD SPECIMENOrdering Facility: [facility] Address: [address] [place] [address] Performed By: #### 5 7021-8 ####[facility] LABCLIA [id number] [place] [address] [place] Monocytes (Bld) [#/Vol] 0.67 10*3/uL Normal <0.87 [facility] Comment on above: Order Comment: Speci men Type: BLOOD SPECIMENOrdering Facility: [facility] Address: [address] [place] [address] Performed By: #### 5 7021-8 ####[facility] LABCLIA [id number] [place] [address] [place] Monocytes/100 WBC (Bld) 8.2 % Normal [facility] Comment on above: Order Comment: Speci men Type: BLOOD SPECIMENOrdering Facility: [facility] Address: [address] [place] [address] Performed By: #### 5 7021-8 ####[facility] LABCLIA [id number] [place] [address] [place] Neutrophils (Bld) [#/Vol] 5.52 10*3/uL Normal 1.45-7.50 [facility] Comment on above: Order Comment: Speci men Type: BLOOD SPECIMENOrdering Facility: [facility] Address: [address] [place] [address] Performed By: #### 5 7021-8 ####[facility] LABCLIA [id number] [place] [address] [place] Neutrophils/100 WBC (Bld) 67.3 % Normal [facility] Comment on above: Order Comment: Speci men Type: BLOOD SPECIMENOrdering Facility: [facility] Address: [address] [place] [address] Performed By: #### 5 7021-8 ####[facility] LABCLIA [id number] [place] [address] [place] Nucleated RBC (Bld) [#/Vol] 10*3/uL Normal <0.01 [facility] Comment on above: Order Comment: Speci men Type: BLOOD SPECIMENOrdering Facility: [facility] Address: [address] [place] [address] Performed By: #### 5 7021-8 ####[facility] LABIA [id number] [place] [address] [place] Nucleated RBC/100 WBC (Bld) [Ratio] 0.0 /100 WBC Normal [facility] Comment on above: Order Comment: Speci men Type: BLOOD SPECIMENOrdering Facility: [facility] Address: [address] [place] [address] Performed By: #### 5 7021-8 ####[facility] LABIA [id number] [place] [address] [place] Platelet mean volume (Bld) [Entitic vol] 9.9 fL Normal 9.0-12.7 [facility] Comment on above: Order Comment: Speci men Type: BLOOD SPECIMENOrdering Facility: [facility] Address: [address] [place] [address] Performed By: #### 5 7021-8 ####[facility] [id number] [place] [address] [place] Platelets (Bld) [#/Vol] 233 10*3/uL Normal 150-400 [facility] Comment on above: Order Comment: Speci men Type: BLOOD SPECIMENOrdering Facility: [facility] Address: [address] [place] [address] Performed By: #### 5 7021-8 ####[facility] LABIA [id number] [place] [address] [place] RBC (Bld) [#/Vol] 4.51 10*6/uL Normal 4.20-6.[address] [facility] Comment on above: Order Comment: Speci men Type: BLOOD SPECIMENOrdering Facility: [facility] Address: [address] [place] [address] Performed By: #### 5 7021-8 ####[facility] LABCLIA [id number] [place] [id number] [place] WBC (Bld) [#/Vol] 8.19 10*3/uL Normal 3.70-11.[address] [facility] Comment on above: Order Comment: Speci men Type: BLOOD SPECIMENOrdering Facility: [facility] Address: [address] [place] [address] Performed By: #### 5 7021-8 ####[facility] LABCLIA [id number] [place] [id number] [place] CNOVon 04-09-2024 CNOV Office Visit (FAMPWS ) ----- RHODA HENSLEY ([id number]) 1970 M Date Time Provider Department 04/09/24 11:00 AM WALDO SURESHWS During your visit today, we recorded the following information about you: Temperature Pulse Respiration Blood pressure 96.9 degrees 77/minute 16/minute 104/78 Weight 92.4 kg Waldo Suresh MD 04/11/2024 8:47 PM Signed Chief Complaint Patient presents with: Establish Care Diarrhea: X 8 months HPI Rhoda Hensley is a 54 year old male who presents here today for Above Complaints. Previous PCP Dr. Blackwell at [facility] here in [place]. Last OV was reportedly 1 month ago. [...] History of seizures managed by neurologist Dr. Anderson. Denies recent activity while on current regimen. Records not available. History of anxiety and bipolar disorder. States symptoms well controlled on Lexapro and Depakote. Denies SI/HI, manic episodes. Past medical history, appointments, medications, allergies reviewed. Previous Medical History PAST MEDICAL HISTORY No date: Alcoholism in remission ([facility]) 1989: Bipolar affective disorder ([facility]) 1994- : Concussion, unspecified Comment: Head injury 12/21/2012: Epilepsy ([facility]) Comment: ~ 2008. Maybe caused from trauma [...] Sep 10 x3wks - Detoxed @ [facility] (hx drinking 1 L of 100 proof [...] Adult) Pu (more content not included)... Normal [facility] Comprehensive metabolic 2000 panelon 04-09-2024 Albumin [Mass/Vol] 4.3 g/dL Normal 3.9-4.9 [facility] Comment on above: Order Comment: Speci men Type: BLOOD SPECIMENOrdering Facility: [facility] Address: [address] [place] [address] Performed By: #### 2 4323-8, LIPNF, 3016-3 ####[facility] LABCLIA [id number] [facility] [id number] [address] [place] ALP [Catalytic activity/Vol] 85 U/L Normal 38-113 [facility] Comment on above: Order Comment: Speci men Type: BLOOD SPECIMENOrdering Facility: [facility] Address: [address] [place] [address] Performed By: #### 2 4323-8, LIPNF, 3015-3 ####[facility] LABCLIA [id number] [place] [address] [place] ALT [Catalytic activity/Vol] 23 U/L Normal 10-54 [facility] Comment on above: Order Comment: Speci men Type: BLOOD SPECIMENOrdering Facility: [facility] Address: [address] [place] [address] Performed By: #### 2 4323-8, LIPNF, 3015-3 ####[facility] LABCLIA [id number] [place] [address] [place] Anion gap [Moles/Vol] 15 mmol/L Normal 8-15 [facility] Comment on above: Order Comment: Speci men Type: BLOOD SPECIMENOrdering Facility: [facility] Address: [address] [place] [address] Performed By: #### 2 4323-8, LIPNF, 3015-3 ####[facility] LABCLIA [id number] [place] [address] [place] AST [Catalytic activity/Vol] 22 U/L Normal 14-40 [facility] Comment on above: Order Comment: Speci men Type: BLOOD SPECIMENOrdering Facility: [facility] Address: [address] [place] [address] Performed By: #### 2 4323-8, LIPNF, 6-3 ####[facility] LABCLIA [id number] [place] [address] [place] Bilirubin [Mass/Vol] 0.2 mg/dL Normal 0.2-1.3 [facility] Comment on above: Order Comment: Speci men Type: BLOOD SPECIMENOrdering Facility: [facility] Address: [address] [place] [address] Performed By: #### 2 4323-8, LIPNF, 6-3 ####[facility] LABCLIA [id number] [place] [address] [place] Calcium [Mass/Vol] 8.5 mg/dL Normal 8.5-10.2 [facility] Comment on above: Order Comment: Speci men Type: BLOOD SPECIMENOrdering Facility: [facility] Address: [address] [place] [address] Performed By: #### 2 4323-8, LIPNF, 6-3 ####[facility] LABCLIA [id number] [place] [address] [place] Chloride [Moles/Vol] 103 mmol/L Normal 98-107 [facility] Comment on above: Order Comment: Speci men Type: BLOOD SPECIMENOrdering Facility: [facility] Address: [address] [place] [address] Performed By: #### 2 4323-8, LIPNF, 6-3 ####[facility] LABCLIA [id number] [place] [address] [place] CO2 [Moles/Vol] 20 mmol/L Low 22-30 [facility] Comment on above: Order Comment: Speci men Type: BLOOD SPECIMENOrdering Facility: [facility] Address: [address] [place] [address] Performed By: #### 2 4323-8, LIPNF, 6-3 ####[facility] LABCLIA [id number] [place] [address] [place] Creatinine [Mass/Vol] 0.65 mg/dL Low 0.73-1.22 [facility] Comment on above: Order Comment: Speci men Type: BLOOD SPECIMENOrdering Facility: [facility] Address: [address] [place] [address] Performed By: #### 2 4323-8, LIPNF, 3016-3 ####[facility] LABCLIA [id number] [place] [address] [place] Creatinine and Glomerular filtration rate.predicted panel (S/P/Bld) 113 mL/min/1.73m??? Normal >=60 [facility] Comment on above: Order Comment: Eric cage Type: BLOOD SPECIMENOrdering Facility: [facility] Address: [address] [place] [address] Result Comment: Eugenie mated Glomerular Filtration Rate [...] Performed By: #### 2 4323-8, GERMAIN, 6-3 ####[facility] LABCLIA [id number] [place] [address] [place] Glucose [Mass/Vol] 106 mg/dL High 74-99 [facility] Comment on above: Order Comment: Eric cage Type: BLOOD SPECIMENOrdering Facility: [facility] Address: [address] [place] [address] Result Comment: The [place] Diabetes Association (ADA) provides guidance for cutoff [...] Standards of Medical Care in Diabetes 2016, [place] Diabetes Association. Diabetes Care. 2016.39(Suppl 1). Performed By: #### 2 4323-8, GERMAIN, 6-3 ####[facility] LABCLIA [id number] [place] [id number] [place] Potassium [Moles/Vol] 4.0 mmol/L Normal 3.7-5.1 [facility] Comment on above: Order Comment: Speci men Type: BLOOD SPECIMENOrdering Facility: [facility] Address: [address] [place] [address] Performed By: #### 2 4323-8, LIPNF, 6-3 ####[facility] LABCLIA [id number] [place] [id number] [place] Protein [Mass/Vol] 6.6 g/dL Normal 6.3-8.0 [facility] Comment on above: Order Comment: Speci men Type: BLOOD SPECIMENOrdering Facility: [facility] Address: [address] [place] [address] Performed By: #### 2 4323-8, LIPNF, 3015-3 ####[facility] LABCLIA [id number] [place] [address] [place] Sodium [Moles/Vol] 138 mmol/L Normal 136-144 [facility] Comment on above: Order Comment: Speci men Type: BLOOD SPECIMENOrdering Facility: [facility] Address: [address] [place] [address] Performed By: #### 2 4323-8, LIPNF, 6-3 ####[facility] LABCLIA [id number] [place] [id number] [place] Urea nitrogen [Mass/Vol] 8 mg/dL Low 9-24 [facility] Comment on above: Order Comment: Speci men Type: BLOOD SPECIMENOrdering Facility: [facility] Address: [address] [place] [address] Performed By: #### 2 4323-8, LIPNF, 6-3 ####[facility] LABCLIA [id number] [place] [id number] [place] ETHANOL/ALCOHOLon 04-09-2024 Ethanol [Mass/Vol] mg/dL NINF - 11 mg/dL [facility] Ethanol SerPl-mCncon 024 Ethanol [Mass/Vol] mg/dL Normal <11 [facility] Comment on above: Order Comment: Speci men Type: BLOOD SPECIMENOrdering Facility: [facility] Address: [address] [place] [address] Performed By: #### 5 643-2 ####[facility] LABCLIA [id number] [place] [address] [place] Ethanol [Mass/Vol]on 024 Interpretation and review of laboratory results Normal [facility] LIPID PANEL, NONFASTINGon Cholesterol [Mass/Vol] 227 mg/dL High <200 [facility] Comment on above: Order Comment: Speci men Type: BLOOD SPECIMENOrdering Facility: [facility] Address: [address] [place] [address] Result Comment: <200 mg/dL, Desirable 200-239 mg/dL, Borderline high >239 mg/dL, High Performed By: #### 2 4323-8, GERMAIN, 3016-3 ####[facility] LABCLIA [id number] [place] [address] [place] HDL CHOLESTEROL, NF 44 mg/dL Normal >[address] [facility] Comment on above: Order Comment: Speci men Type: BLOOD SPECIMENOrdering Facility: [facility] Address: [address] [place] [address] Result Comment: 40-5 9 mg/dL, Acceptable >59 mg/dL, High: Negative risk factor for coronary heart disease <40 mg/dL, Low: Positive risk factor for coronary heart disease Performed By: #### 2 4323-8, LIPDEVON, 3016-3 ####[facility] LABCLIA [id number] [place] [address] [place] LDL CHOLESTEROL, NF Normal [facility] Comment on above: Order Comment: Speci men Type: BLOOD SPECIMENOrdering Facility: [facility] Address: [address] [place] [address] Result Comment: Unab le to calculate due to increased Triglycerides. A Direct LDL Cholesterol measurement will not be performed. If clinically indicated, a fasting Basic Lipid Panel (LIPB) may be ordered. Performed By: #### 2 4323-8, LIPNF, 3016-3 ####[facility] LABCLIA [id number] [address] [place] LDL/HDL RATIO, NF Normal [facility] Comment on above: Order Comment: Speci men Type: BLOOD SPECIMENOrdering Facility: [facility] Address: [address] [place] [address] Result Comment: Unab le to calculate due to elevated Triglycerides. Reference: 1. National Cholesterol Education Program ATP III Guideline At-A-Glance Quick Desk Reference: National Heart, Lung, and Blood [place]. National Institutes of Health. 2001: NIH Publication No. 01-3305. 2. An International Atherosclerosis Society position paper: global recommendations for the management of dyslipidemia: executive summary, Atherosclerosis. 2014: 232(2):410-413. Performed By: #### 2 4323-8, LIPNF, 6-3 ####[facility] LABCLIA [id number] [address] [place] NON HDL CHOL, NF 183 mg/dL High <130 [facility] Comment on above: Order Comment: Speci men Type: BLOOD SPECIMENOrdering Facility: [facility] Address: [address] [place] [address] Result Comment: <130 mg/dL, Optimal 130-159 mg/dL, Near optimal/above optimal 160-189 mg/dL, Borderline high 190-219 mg/dL, High >219 mg/dL, Very high Secondary prevention optimal non HDL Cholesterol levels are recommended to be <100 mg/dL Performed By: #### 2 4323-8, LIPNF, 6-3 ####[facility] LABCLIA [id number] [place] [address] [place] T CHOL/HDL RATIO NF 5.16 mg/dL High <5.[address] [facility] Comment on above: Order Comment: Speci men Type: BLOOD SPECIMENOrdering Facility: [facility] Address: [address] [place] [address] Performed By: #### 2 4323-8, LIPNF, 3016-3 ####[facility] LABCLIA [id number] [place] [address] [place] TRIGLYCERIDES, NF 633 mg/dL High <150 [facility] Comment on above: Order Comment: Speci men Type: BLOOD SPECIMENOrdering Facility: [facility] Address: [address] [place] [address] Result Comment: <150 mg/dL, Normal 150-199 mg/dL, Borderline high 200-499 mg/dL, High >499 mg/dL, Very high Performed By: #### 2 4323-8, LIPNF, 6-3 ####[facility] LABCLIA [id number] [place] [address] [place] VLDL CHOLESTEROL, NF Normal [facility] Comment on above: Order Comment: Speci men Type: BLOOD SPECIMENOrdering Facility: [facility] Address: [address] [place] [address] Result Comment: Unab le to calculate due to elevated Triglycerides. Performed By: #### 2 4323-8, LIPNF, 6-3 ####[facility] LABCLIA [id number] [place] [address] [place] TSH SerPl-aCncon 04-09-2024 TSH Qn 1.370 m[IU]/L Normal 0.270-4.200 [facility] Comment on above: Order Comment: Speci men Type: BLOOD SPECIMENOrdering Facility: [facility] Address: [address] [place] [address] Performed By: #### 2 4323-8, LIPNF, 6-3 ####[facility] LABCLIA [id number] [place] [address] [place] VITAMIN B1 (THIAMINE), WHOLE BLOODon 04-09-2024 Thiamine (Bld) [Moles/Vol] 179.7 nmol/L Normal 84.3-213.3 [facility] Comment on above: Order Comment: Speci men Type: BLOOD SPECIMENOrdering Facility: [facility] Address: [facility] [facility] [place] [address] Result Comment: This assay measures the concentration of thiamine diphosphate (TDP), the primary active form of vitamin B1. Approximately 90 percent of vitamin B1 present in whole blood is TDP. Thiamine and thiamine monophosphate, which comprise the remaining 10 percent, are not measured. This test was developed and its performance characteristics determined by [facility] Path[facility] Laboratory Medicine [place] ([facility]). It has not been cleared or approved by the FDA. [facility] is regulated under CLIA as qualified to perform high-complexity testing. This test is used for clinical purposes. It should not be regarded as investigational or for research. Performed By: #### B 1WB ####[facility] LABCLIA [id number] [place] [address] [place] .Auto Diffon 01-07-2024 Basophil, Absolute 0.1 10 3/mcL Normal 0.0-0.2 [facility] ([place]) Comment on above: Performed By: #### A ELISA PADRON, ANEU, GFR, BMP, CBC, MG #### [place]al[place] [address] [address] Basophils/100 WBC (Bld) 1.2 % Normal 0.0-2.5 [facility] ([place]) Comment on above: Performed By: #### A ELISA PADRON, ANEU, GFR, BMP, CBC, MG #### Rosalind [address] [address] Eosinophil, Absolute 0.2 10 3/mcL Normal 0.0-0.4 [facility] ([place]) Comment on above: Performed By: #### A ELISA PADRON, ANEU, GFR, BMP, CBC, MG #### [address] [address] Eosinophils/100 WBC (Bld) 3.4 % Normal 0.0-7.0 [facility] ([place]) Comment on above: Performed By: #### A DIFFMDW, ANEU, GFR, BMP, CBC, MG #### [address] [address] Lymphocyte, Absolute 1.7 10 3/mcL Normal 0.8-3.9 [facility] ([place]) Comment on above: Performed By: #### A DIFFELISA, ANEU, GFR, BMP, CBC, MG #### [address] [address] Lymphocytes/100 WBC (Bld) 32.9 % Normal 10.0-50.0 [facility] ([place]) Comment on above: Performed By: #### A ELISA PADRON, ANEU, GFR, BMP, CBC, MG #### [address] [address] Monocyte, Absolute 0.4 10 3/mcL Normal 0.2-1.0 [facility] ([place]) Comment on above: Performed By: #### A ELISA PADRON, ANEU, GFR, BMP, CBC, MG #### [address] [address] Monocytes/100 WBC (Bld) 7.7 % Normal 1.7-13.0 [facility] ([place]) Comment on above: Performed By: #### A ELISA PADRON, ANEU, GFR, BMP, CBC, MG #### [address] [address] Neutrophils/100 WBC (Bld) 54.8 % Normal 37.0-80.0 [facility] ([place]) Comment on above: Performed By: #### A DIFFELISA, ANEU, GFR, BMP, CBC, MG #### [address] [address] .GFRon 01-07-2024 GFR 194 ml/min/1.73sqm Normal [facility] ([place]) Comment on above: Result Comment: GFR Population [...] PADRON, ANEU, GFR, BMP, CBC, MG #### [address] [address] GFR Non- 160 ml/min/1.73sqm Normal [facility] ([place]) Comment on above: Result Comment: GFR Population [...] mL/min/1.73 square meters Performed By: #### A MD VITOW, ANEU, GFR, BMP, CBC, MG #### [address] [address] .MDWon 01-07-2024 Monocyte Distribution Width 17.86 Normal 0.00-20.00 [facility] ([place]) Comment on above: Result Comment: For ED adult patients suspected of sepsis, MDW<=20.0 does not rule out sepsis or risk of sepsis Performed By: #### A MD VITOW, ANEU, GFR, BMP, CBC, MG ####[address] [address] .NEUABSon 01-07-2024 Neutrophil, Absolute 2.8 10 3/mcL Low 2.9-6.2 [facility] ([place]) Comment on above: Performed By: #### A ELISA PADRON, ANEU, GFR, BMP, CBC, MG #### [address] [address] Jesus 01-07-2024 Ethanol Level 127 mg/dL High 0-3 [facility] ([place]) Comment on above: Performed By: #### A LC #### [address] [address] BMPon 01-07-2024 BUN/Creatinine Ratio 15 ratio Normal 7-27 [facility] ([place]) Comment on above: Performed By: #### A ELISA PADRON, ANEU, GFR, BMP, CBC, MG #### [address] [address] Calcium [Mass/Vol] 7.9 mg/dL Low 8.4-10.2 [facility] ([place]) Comment on above: Performed By: #### A ELISA PADRON, ANEU, GFR, BMP, CBC, MG #### [address] [address] Chloride [Moles/Vol] 97 mmol/L Low 98-107 [facility] ([place]) Comment on above: Performed By: #### A ELISA PADRON, ANEU, GFR, BMP, CBC, MG #### [address] [address] CO2 [Moles/Vol] 22 mmol/L Normal 22-29 [facility] ([place]) Comment on above: Performed By: #### A ELISA PADRON, ANEU, GFR, BMP, CBC, MG #### [address] [address] Creatinine [Mass/Vol] 0.54 mg/dL Low 0.70-1.30 [facility] ([place]) Comment on above: Performed By: #### A ELISA PADRON, ANEU, GFR, BMP, CBC, MG #### [address] [address] Electrolyte Balance 15.0 mEq/L Normal 4.0-15.0 [facility] ([place]) Comment on above: Performed By: #### A ELISA PADRON, ANEU, GFR, BMP, CBC, MG #### [address] [address] Glucose [Mass/Vol] 118 mg/dL High 70-105 [facility] ([place]) Comment on above: Performed By: #### A ELISA PADRON, VY, GFR, BMP, CBC, MG #### [address] [address] Potassium [Moles/Vol] 4.0 mmol/L Normal 3.5-5.1 [facility] ([place]) Comment on above: Performed By: #### A ELISA PADRON, VY, GFR, BMP, CBC, MG #### [address] [address] Sodium [Moles/Vol] 134 mmol/L Low 136-145 [facility] ([place]) Comment on above: Performed By: #### A ELISA PADRON, VY, GFR, BMP, CBC, MG #### [address] [address] Urea nitrogen [Mass/Vol] 8 mg/dL Normal 7-18 [facility] ([place]) Comment on above: Performed By: #### A ELISA PADRON, VY, GFR, BMP, CBC, MG #### [address] [address] CBCon 01-07-2024 Erythrocyte distribution width (RBC) [Ratio] 14.1 % Normal 11.5-14.5 [facility] ([place]) Comment on above: Performed By: #### A ELISA PADRON, ANEU, GFR, BMP, CBC, MG #### [address] [address] Hematocrit (Bld) [Volume fraction] 45.3 % Normal 42.0-52.0 [facility] ([place]) Comment on above: Performed By: #### A DIFFMDW, ANEU, GFR, BMP, CBC, MG #### [address] [address] Hgb 16.4 G/dL Normal 14.0-18.0 [facility] ([place]) Comment on above: Performed By: #### A DIFF, W, ANEU, GFR, BMP, CBC, MG #### [place] [address] MCH (RBC) [Entitic mass] 35.0 pg High 27.0-31.2 [facility] ([place]) Comment on above: Performed By: #### A DIFFELISA, ANEU, GFR, BMP, CBC, MG #### [place] [address] MCHC 36.2 G/dL High 31.8-35.4 [facility] ([place]) Comment on above: Performed By: #### A DIFFELISA, ANEU, GFR, BMP, CBC, MG #### [place] [address] MCV (RBC) [Entitic vol] 96.7 fL High 80.0-94.0 [facility] ([place]) Comment on above: Performed By: #### A DIFFELISA, ANEU, GFR, BMP, CBC, MG #### [place] [address] Platelet 155 10 3/mcL Normal 130-400 [facility] ([place]) Comment on above: Performed By: #### A DIFFMDW, ANEU, GFR, BMP, CBC, MG #### [place] [address] Platelet mean volume (Bld) [Entitic vol] 7.7 fL Normal 7.4-10.4 [facility] ([place]) Comment on above: Performed By: #### A DIFFMDW, ANEU, GFR, BMP, CBC, MG #### [place] [address] RBC 4.69 10 6/mcL Normal 4.04-6.13 [facility] ([place]) Comment on above: Performed By: #### A DIFF, W, ANEU, GFR, BMP, CBC, MG #### [place] [id number] [place], [place] [address] WBC 5.1 10 3/mcL Normal 4.6-10.8 [facility] ([place]) Comment on above: Performed By: #### A DIFF, W, ANEU, GFR, BMP, CBC, MG #### [place] [address] [place], [place] [address] CT HEAD OR BRAIN W/O CONTRAS Ton [...] 01/07/2024 5:42:15 PM Ordering Provider: JOHN Feldman [facility] ([place]) CVFLURVoeliane 01-07-2024 FLU A PCR Negative Normal Negative [facility] ([place]) Comment on above: Performed By: #### C VFLURV #### [address] [address] FLU B PCR Negative Normal Negative [facility] ([place]) Comment on above: Performed By: #### C VFLURV #### [address] [address] RSV PCR Negative Normal Negative [facility] ([place]) Comment on above: Performed By: #### C VFLURV #### [address] [address] SARS-CoV-2 (COVID-19) RNA MARCUS+probe Ql (Unsp spec) Negative Normal Negative [facility] ([place]) Comment on above: Result Comment: Resu lts [...] results. Performed By: #### C VFLURV #### [address] [address] LABORATORYOrdered By: SYSTEM SYSTEM on 01-07-2024 Ethanol [...] 01-07-2024 Magnesium [Mass/Vol] 1.6 mg/dL Low 1.8-2.4 [facility] ([place]) Comment on above: Performed By: #### A DIFF, MDW, ANEU, GFR, BMP, CBC, MG #### Ros[place]ind [address] [address] XR CHEST 1 VIEWon 01-07-2024 XR CHEST [...] Date: 01/07/2024 5:42:48 PM Ordering Provider: JOHN LUJAN [facility] ([place]) Clostridioides difficile nuc leic acid assay by PCROrdered By: Vasu Blackwell on 09-25-2023 C. difficile DNA MARCUS+probe Ql (Unsp spec) [facility] C. difficile DNA MARCUS+probe Ql (Unsp spec) [facility] No Panel InformationOrdered By: Vasu Blackwell on 09-25-2023 Stool Calprotectin 16 ug/g 0-120 [facility] Comment on above: Concentration Interp retation Follow-Up< 5 - 50 ug/g Normal None>50 -120 ug/g Borderline Re-evaluate in 4-6 weeks >120 ug/g Abnormal Repeat as clinically indicatedPerformed at: [facility] [id number] Director: Jess Sargent MD, Phone: [phone] Stool enteric pathogen panel by probe and target amplification methodOrdered By: Vasu Blackwell on 09-25-2023 Gastrointestinal pathogens panel MARCUS+probe (Stl) [facility] Gastrointestinal pathogens panel MARCUS+probe (Stl) [facility] Stool lactoferrin detection by immunoassayOrdered By: Vasu Blackwell on 09-25-2023 Lactoferrin IA Ql (Stl) [facility] Lactoferrin IA Ql (Stl) [facility] Absolute lymphocyte countOrd ered By: Vasu Blackwell on 09-24-2023 Lymphocytes Auto (Unsp spec) [#/Vol] 1.46 10*3/uL 0.83-4.51 [facility] Automated lymphocyte count a s percentage of total leukocytesOrdered By: Vasu Blackwell on 09-24-2023 Lymphocytes/100 WBC Auto (Unsp spec) 27.3 % 19-41 [facility] Basophil percentageOrdered B y: Errol Anderson on 09-24-2023 Ammonia (P) [Moles/Vol] 165.0 umol/L 11-32 [facility] Basophil percentageOrdered B y: Vasu Blackwell on 09-24-2023 Basophils/100 WBC (Bld) 0.6 % 0-1 [facility] Bilirubin [Mass/Vol] 0.20 mg/dL 0.20-1.00 [facility] Comment on above: For patients on eltr ombopag therapy, use of Dimension [place] TBIL is not recommended. Chloride [Moles/Vol] 103 mmol/L 98-107 [facility] Eosinophils/100 WBC (Bld) 3.9 % 0-5 [facility] Glucose [Mass/Vol] 105 mg/dL 74-106 [facility] Comment on above: Fasting Glucose resu lt from 100 to 125 mg/dL suggests IMPAIRED HOMEOSTASIS per A.D.A. criteria. Hemoglobin (Bld) [Mass/Vol] 15.0 g/dL 13.0-16.5 [facility] Monocytes/100 WBC (Bld) 8.0 % 0-10 [facility] Neutrophils (Bld) [#/Vol] 3.2 10*3/uL 2.0-7.7 [facility] Neutrophils/100 WBC (Bld) 59.8 % 47-70 [facility] Potassium [Moles/Vol] 3.7 mmol/L 3.5-5.1 [facility] Protein [Mass/Vol] 7.0 g/dL 6.4-8.2 [facility] Sodium [Moles/Vol] 133 mmol/L 136-145 [facility] WBC (Bld) [#/Vol] 5.4 10*3/uL 4.4-11.0 [facility] Blood manual differential co mment interpretation (narrative result)Ordered By: kathy Blackwell on 09-24-2023 Manual differential comment Jr (Bld) [Interp] See comment [facility] Comment on above: 1+ ANISOCYTOSIS Determination of erythrocyte mean corpuscular volume (MCV)Ordered By: domogig harbordeidra Blackwell on 09-24-2023 MCV (RBC) [Entitic vol] 109.1 fL 80-94 [facility] Erythrocyte distribution wid th ratioOrdered By: [facility] Adityapatricia on 09-24-2023 Erythrocyte distribution width (RBC) [Ratio] 16.6 % 11.6-14.6 [facility] Erythrocyte distribution wid th standard deviationOrdered By: [facility] Adityapatricia on 09-24-2023 Erythrocyte distribution width (RBC) [Entitic vol] 67.6 fL 35.1-43.9 [facility] Hematocrit Auto (Bld) [Volum e fraction]Ordered By: domogig harbordeidra Blackwell on 09-24-2023 Hematocrit (Bld) [Volume fraction] 44.3 % 40-54 [facility] Immature granulocytes/100 WB C Auto (Bld)Ordered By: [facility] Streetpatricia on 09-24-2023 Immature granulocytes/100 WBC (Bld) 0.400 % 0.0-0.9 [facility] Comment on above: IG% - Immature Granu locytes (promyelocytes, myelocytes and metamyelocytes) > 1% indicates that a LEFT SHIFT is Present. Laboratory - Chemistry and C hemistry - challengeOrdered By: domogig harbordeidra Blackwell on 09-24-2023 Amylase [Catalytic activity/Vol] 3004 U/L 15-85 [facility] Albumin/Globulin [Mass ratio] 0.9 {ratio} 0.9-2.4 [facility] ALP [Catalytic activity/Vol] 286 U/L 45-117 [facility] ALT [Catalytic activity/Vol] 87 U/L 16-61 [facility] CO2 [Moles/Vol] 25.0 mmol/L 21.0-32.0 [facility] Globulin (S) [Mass/Vol] 3.7 g/dL 2.2-4.2 [facility] Urea nitrogen/Creatinine [Mass ratio] 10.5 mg/mg 10-20 [facility] Laboratory - Chemistry and C hemistry - challengeOrdered By: Errol Anderson on 09-24-2023 Cobalamin (Vitamin B12) [Mass/Vol] 422 pg/mL 211-911 [facility] Magnesium [Mass/Vol] 2.2 mg/dL 1.6-2.6 [facility] Laboratory - Hematology and Cell countsOrdered By: Vasu Blackwell on 09-24-2023 MCH (RBC) [Entitic mass] 36.9 pg 27.0-32.0 [facility] MCHC (RBC) [Mass/Vol] 33.9 g/dL 32-36 [facility] Nucleated RBC/100 WBC (Bld) [Ratio] 0 % 0-5 [facility] Platelets (Bld) [#/Vol] 317 10*3/uL 150-450 [facility] No Panel InformationOrdered By: Errol Anderson on 09-24-2023 Folate 2.30 ng/mL 3.1-55.4 [facility] Comment on above: Slight Hemolysis, Re sult may be falsely increased. Levetiracetam (Keppra) Level 18.2 ug/mL 10.0-40.0 [facility] Comment on above: Performed at: [address] [id number] Director: Jess Sargent MD, Phone: [phone] Miscellaneous Test See comment [facility] Comment on above: TEST RESULTS LIMITSZ onisamide(Zonegran), Serum Zonisamide 5.4 Low ug/mL 10.0-40.0 Detection Limit = 2.0 TESTING PERFORMED AT [facility]. ORIGINAL REPORT ON FILE IN LAB CONTAINS ADDITIONAL TEST SITE INFORMATION. Valproic Acid (Depakene) Level 47 ug/mL 50-100 [facility] No Panel InformationOrdered By: Vasu Blackwell on 09-24-2023 Estimated GFR (MDRD) Amer 139 mL/min >60 [facility] Comment on above: GFR Calc Estimated GFR (MDRD) Non-Af Amer 114 mL/min >60 [facility] Comment on above: Non- GFR Calc Platelet mean volume Jhonatan-Ec ker (Bld) [Entitic vol]Ordered By: Vasu Blackwell on 09-24-2023 Platelet mean volume (Bld) [Entitic vol] 9.3 fL 6.2-12.0 [facility] RBC Auto (Bld) [#/Vol]Ordere d By: Vasu Blackwell on 09-24-2023 RBC (Bld) [#/Vol] 4.06 10*6/uL 4.6-6.2 [facility] Serum or plasma calcium duane urement (mass/volume)Ordered By: Vasu Blackwell on 09-24-2023 Calcium [Mass/Vol] 8.5 mg/dL 8.5-10.1 [facility] Serum or plasma creatinine m easurement (mass/volume)Ordered By: Vasu Blackwell on 09-24-2023 Creatinine [Mass/Vol] 0.76 mg/dL 0.70-1.30 [facility] Comment on above: The validity of the calculated GFR & GFRAA in patients over 70 years has not been determined. Clinical correlation is essential. Serum or plasma thiamine aspen surement (mass/volume)Ordered By: Errol Anderson on 09-24-2023 Thiamine [Mass/Vol] 115.9 nmol/L 66.5-200.0 [facility] Serum or plasma thyroid stim ulating hormone (TSH) measurement (units/volume)Ordered By: Vasu Blackwell on 09-24-2023 TSH Qn 2.65 uIU/mL 0.358-3.74 [facility] Serum or plasma urea nitroge n measurement (mass/volume)Ordered By: Vasu Blackwell on 09-24-2023 Urea nitrogen [Mass/Vol] 8 mg/dL 7-18 [facility] Thin prep Papanicolaou smear with manual screeningOrdered By: Vasu Burgesskendrick on 09-24-2023 Thin prep Papanicolaou smear with manual screening 3.3 g/dL 3.2-5.0 [facility] Thin prep Papanicolaou smear with manual screening 57 U/L 15-37 [facility] Thin prep Papanicolaou smear with manual screening 5 5-15 [facility] Thin prep Papanicolaou smear with manual screening 0.85 ng/dL 0.76-1.46 [facility] Basophil percentageOrdered B y: Errol Anderson on 09-13-2023 Basophil percentage < 1.0 mg/dL 0.70-1.30 [facility] No Panel InformationOrdered By: Errol Anderson on 09-13-2023 Bedside Estimated GFR (eGFR) > 60.0000 mL/min >60 [facility] Absolute lymphocyte countOrd ered By: Wolfgang Tyler on 06-16-2023 Lymphocytes Auto (Unsp spec) [#/Vol] 1.08 10*3/uL 0.83-4.51 [facility] Basophil percentageOrdered B y: Wolfgang Tyler on 06-16-2023 Basophil percentage 0 SEEN /hpf 0-5 [facility] Basophils/100 WBC (Bld) 0.6 % 0-1 [facility] Bilirubin [Mass/Vol] 0.50 mg/dL 0.20-1.00 [facility] Comment on above: For patients on eltr ombopag therapy, use of Dimension [place] TBIL is not recommended. Chloride [Moles/Vol] 98 mmol/L 98-107 [facility] Eosinophils/100 WBC (Bld) 1.5 % 0-5 [facility] Glucose [Mass/Vol] 116 mg/dL 74-106 [facility] Comment on above: Fasting Glucose resu lt from 100 to 125 mg/dL suggests IMPAIRED HOMEOSTASIS per A.D.A. criteria. Neutrophils (Bld) [#/Vol] 3.7 10*3/uL 2.0-7.7 [facility] Neutrophils/100 WBC (Bld) 68.8 % 47-70 [facility] Potassium [Moles/Vol] 3.8 mmol/L 3.5-5.1 [facility] Protein [Mass/Vol] 6.5 g/dL 6.4-8.2 [facility] Sodium [Moles/Vol] 137 mmol/L 136-145 [facility] WBC (Bld) [#/Vol] 5.4 10*3/uL 4.4-11.0 [facility] Bilirubin Test strip Ql (U)O rdered By: Wolfgang Tyler on 06-16-2023 Bilirubin Ql (U) Negative Negative [facility] Blood erythrocytes count (nu mber/volume)Ordered By: Wolfgang Tyler on 06-16-2023 RBC (Bld) [#/Vol] 3.93 10*6/uL 4.6-6.2 [facility] Blood hemoglobin measurement (mass/volume)Ordered By: Wolfgang Tyler on 06-16-2023 Hemoglobin (Bld) [Mass/Vol] 14.6 g/dL 13.0-16.5 [facility] Blood lymphocytes/100 leukoc ytesOrdered By: Wolfgang Tyler on 06-16-2023 Lymphocytes/100 WBC (Bld) 20.1 % 19-41 [facility] Blood manual differential co mment interpretation (narrative result)Ordered By: Wolfgang Tyler on 06-16-2023 Manual differential comment Jr (Bld) [Interp] SCANNED [facility] Blood monocytes/100 leukocyt esOrdered By: Wolfgang Tyler on 06-16-2023 Monocytes/100 WBC (Bld) 8.4 % 0-10 [facility] Blood platelet mean volumeOr dered By: Wolfgang Tyler on 06-16-2023 Platelet mean volume (Bld) [Entitic vol] 9.1 fL 6.2-12.0 [facility] Determination of erythrocyte mean corpuscular volume (MCV)Ordered By: Wolfgang Tyler on 06-16-2023 MCV (RBC) [Entitic vol] 106.1 fL 80-94 [facility] Direct bilirubinOrdered By: Wolfgang Tyler on 06-16-2023 Bilirubin.direct [Mass/Vol] 0.18 mg/dL 0.00-0.30 [facility] Hematocrit Auto (Bld) [Volum e fraction]Ordered By: Wolfgang Tyler on 06-16-2023 Hematocrit (Bld) [Volume fraction] 41.7 % 40-54 [facility] INR in Blood by Coagulation assayOrdered By: Wolfgang Tyler on 06-16-2023 INR Coag (Bld) [Relative time] 1.1 {INR} [facility] Ketones Test strip Ql (U)Ord ered By: Wolfgang Tyler on 06-16-2023 Ketones Ql (U) 50 mg/dl Negative [facility] Laboratory - Chemistry and C hemistry - challengeOrdered By: Wolfgang Tyler on 06-16-2023 ALP [Catalytic activity/Vol] 84 U/L 45-117 [facility] ALT [Catalytic activity/Vol] 54 U/L 16-61 [facility] CO2 [Moles/Vol] 23.0 mmol/L 21.0-32.0 [facility] Globulin (S) [Mass/Vol] 3.3 g/dL 2.2-4.2 [facility] Magnesium [Mass/Vol] 1.9 mg/dL 1.6-2.6 [facility] Urea nitrogen/Creatinine [Mass ratio] 9.4 mg/mg 10-20 [facility] Laboratory - CoagulationOrde red By: Wolfgang Tyler on 06-16-2023 PT Coag (PPP) [Time] 14.6 s 11.7-14.9 [facility] - Drug toxicology Ordered By: Wolfgang Tyler on 06-16-2023 Amphetamines Ql (U) Negative <1000 ng/mL [facility] Benzodiazepines Ql (U) Negative < 200 ng/mL [facility] Cannabinoids Screen Ql (U) Positive < 50 ng/mL [facility] Cocaine Ql (U) Negative < 300 ng/mL [facility] Opiates Ql (U) Negative < 300 ng/mL [facility] Laboratory - Hematology and Cell countsOrdered By: Wolfgang Tyler on 06-16-2023 Anisocytosis Ql (Bld) 2+ [facility] Erythrocyte distribution width (RBC) [Entitic vol] 65.4 fL 35.1-43.9 [facility] Erythrocyte distribution width (RBC) [Ratio] 16.6 % 11.6-14.6 [facility] Immature granulocytes/100 WBC (Bld) 0.600 % 0.0-0.9 [facility] Comment on above: IG% - Immature Granu locytes (promyelocytes, myelocytes and metamyelocytes) > 1% indicates that a LEFT SHIFT is Present. MCH (RBC) [Entitic mass] 37.2 pg 27.0-32.0 [facility] Nucleated RBC/100 WBC (Bld) [Ratio] 0 % 0-5 [facility] MCHC Auto (RBC) [Mass/Vol]Or dered By: Wolfgang Tyler on 06-16-2023 MCHC (RBC) [Mass/Vol] 35.0 g/dL 32-36 [facility] Macrocytes detectionOrdered By: Wolfgang Tyler on 06-16-2023 Macrocytes Ql (Bld) 1+ [facility] Mucus LM Ql (Urine sed)Order ed By: Wolfgang Tyler on 06-16-2023 Mucus Ql (Urine sed) 0 SEEN /hpf [facility] Nitrite Test strip Ql (U)Ord ered By: Wolfgang Tyler on 06-16-2023 Nitrite Ql (U) Negative Negative [facility] No Panel InformationOrdered By: Wolfgang Tyler on 06-16-2023 MDMA (Ecstasy) Screen Negative < 500 ng/mL [facility] Urine Barbiturates Screen Negative < 200 ng/mL [facility] Urine Drug Screen Comment [facility] Comment on above: CONFIRMATORY TESTING FOR ALL [...] Urine Methadone Screen Negative < 300 ng/mL [facility] Estimated Creatinine Clearance Calc 139.41 ml/min [facility] Estimated GFR (MDRD) Amer 170 mL/min >60 [facility] Comment on above: GFR Calc Estimated GFR (MDRD) Non-Af Amer 141 mL/min >60 [facility] Comment on above: Non- GFR Calc Ethyl Alcohol Level 44.0 mg/dL [facility] Comment on above: The serum:whole bloo d ethanol ratio is approximately 1.14and varies slightly with hematocrit. Medical Alcohol reference interval and critical value innon-tolerant individuals; 50 - 100 Impairment 100 Intoxication 100 - 250 Severe Poisoning 250 - 400 Deep/possible fatal coma Valproic Acid (Depakene) Level 52 ug/mL 50-100 [facility] Platelets bldOrdered By: Sahil Tyler on 06-16-2023 Platelets (Bld) [#/Vol] 237 10*3/uL 150-450 [facility] Protein Test strip Ql (U)Ord ered By: Wolfgang Tyler on 06-16-2023 Protein Ql (U) 15 mg/dl Negative [facility] Serum or plasma albumin duane urement (mass/volume)Ordered By: Wolfgang Tyler on 06-16-2023 Albumin [Mass/Vol] 3.2 g/dL 3.2-5.0 [facility] Serum or plasma calcium duane urement (mass/volume)Ordered By: Wolfgang Tyler on 06-16-2023 Calcium [Mass/Vol] 8.3 mg/dL 8.5-10.1 [facility] Serum or plasma creatinine m easurement (mass/volume)Ordered By: Wolfgang Tyler on 06-16-2023 Creatinine [Mass/Vol] 0.64 mg/dL 0.70-1.30 [facility] Comment on above: The validity of the calculated GFR & GFRAA in patients over 70 years has not been determined. Clinical correlation is essential. Serum or plasma urea nitroge n measurement (mass/volume)Ordered By: Wolfgang Tyler on 06-16-2023 Urea nitrogen [Mass/Vol] 6 mg/dL 7-18 [facility] Squamous epithelial cells de tection in urine sediment by light microscopyOrdered By: Wolfgang Tyler on 06-16-2023 Epithelial cells.squamous LM Ql (Urine sed) 0 SEEN /hpf 0-5 [facility] Thin prep Papanicolaou smear with manual screeningOrdered By: Wolfgang Tyler on 06-16-2023 Thin prep Papanicolaou smear with manual screening 1+ [facility] Thin prep Papanicolaou smear with manual screening 131 U/L 15-37 [facility] Thin prep Papanicolaou smear with manual screening 16 5-15 [facility] Urine blood detectionOrdered By: Wolfgang Tyler on 06-16-2023 RBC Ql (U) 10 /ul Negative [facility] RBC Ql (U) 0 SEEN /hpf 0-5 [facility] Urine clarityOrdered By: Sahil Tyler on 06-16-2023 Clarity (U) Clear Clear [facility] Urine color determinationOrd ered By: Wolfgang Tyler on 06-16-2023 Color (U) Yellow Yellow [facility] Urine glucose detectionOrder ed By: Wolfgang Tyler on 06-16-2023 Glucose Ql (U) Normal mg/dl Normal [facility] Urine leukocyte esterase det ection by dipstickOrdered By: Wolfgang Tyler on 06-16-2023 Leukocyte esterase Test strip Ql (U) Negative Negative [facility] Urine pHOrdered By: Wolfgang taylor on 06-16-2023 pH (U) 6.5 [pH] 5.0 - 8.0 [facility] Urine phencyclidine (PCP) de tectionOrdered By: Wolfgang Tyler on 06-16-2023 Phencyclidine Ql (U) Negative < 25 ng/mL [facility] Urine sediment bacteria coun t by microscopy (number/high power field)Ordered By: Wolfgang Tyler on 06-16-2023 Bacteria LM.HPF (Urine sed) [#/Area] 0 /[HPF] None Seen [facility] Urine specific gravity measu rementOrdered By: Wolfgang Tyler on 06-16-2023 Specific gravity (U) [Rel density] 1.015 1.002-1.030 [facility] Urobilinogen Auto test strip Ql (U)Ordered By: Wolfgang Tyler on 06-16-2023 Urobilinogen Ql (U) Normal mg/dl Normal [facility] Absolute lymphocyte countOrd ered By: Vasu Blackwell on 05-28-2023 Lymphocytes Auto (Unsp spec) [#/Vol] 1.56 10*3/uL 0.83-4.51 [facility] Basophil percentageOrdered B y: Vasu Blackwell on 05-28-2023 Basophils/100 WBC (Bld) 0.7 % 0-1 [facility] Bilirubin [Mass/Vol] 0.60 mg/dL 0.20-1.00 [facility] Comment on above: For patients on eltr ombopag therapy, use of Dimension [place] TBIL is not recommended. Chloride [Moles/Vol] 101 mmol/L 98-107 [facility] Eosinophils/100 WBC (Bld) 1.6 % 0-5 [facility] Glucose [Mass/Vol] 156 mg/dL 74-106 [facility] Comment on above: Fasting Glucose resu lt greater than or equal to 126 mg/dL suggests DIABETES MELLITUS per A.D.A. criteria. Neutrophils (Bld) [#/Vol] 6.3 10*3/uL 2.0-7.7 [facility] Neutrophils/100 WBC (Bld) 72.4 % 47-70 [facility] Potassium [Moles/Vol] 3.4 mmol/L 3.5-5.1 [facility] Protein [Mass/Vol] 7.6 g/dL 6.4-8.2 [facility] Sodium [Moles/Vol] 135 mmol/L 136-145 [facility] WBC (Bld) [#/Vol] 8.7 10*3/uL 4.4-11.0 [facility] Blood erythrocytes count (nu mber/volume)Ordered By: Vasu Blackwell on 05-28-2023 RBC (Bld) [#/Vol] 4.00 10*6/uL 4.6-6.2 [facility] Blood hemoglobin measurement (mass/volume)Ordered By: Vasu Blackwell on 05-28-2023 Hemoglobin (Bld) [Mass/Vol] 15.0 g/dL 13.0-16.5 [facility] Blood lymphocytes/100 leukoc ytesOrdered By: Vasu Blackwell on 05-28-2023 Lymphocytes/100 WBC (Bld) 18.0 % 19-41 [facility] Blood manual differential co mment interpretation (narrative result)Ordered By: Vasu Blackwell on 05-28-2023 Manual differential comment Jr (Bld) [Interp] SCANNED [facility] Blood monocytes/100 leukocyt esOrdered By: [facility] Monocytes/100 WBC (Bld) 7.0 % 0-10 [facility] Blood platelet mean volumeOr dered By: kathy Blackwell on 05-28-2023 Platelet mean volume (Bld) [Entitic vol] 9.5 fL 6.2-12.0 [facility] Determination of erythrocyte mean corpuscular volume (MCV)Ordered By: Brycegig harbordeidra Blackwell on 05-28-2023 MCV (RBC) [Entitic vol] 110.5 fL 80-94 [facility] Hematocrit Auto (Bld) [Volum e fraction]Ordered By: Brycegig harbordeidra Blackwell on 05-28-2023 Hematocrit (Bld) [Volume fraction] 44.2 % 40-54 [facility] Laboratory - Chemistry and C hemistry - challengeOrdered By: [facility]23 ALP [Catalytic activity/Vol] 73 U/L 45-117 [facility] ALT [Catalytic activity/Vol] 26 U/L 16-61 [facility] CO2 [Moles/Vol] 24.0 mmol/L 21.0-32.0 [facility] Globulin (S) [Mass/Vol] 3.8 g/dL 2.2-4.2 [facility] Urea nitrogen/Creatinine [Mass ratio] 10.5 mg/mg 10-20 [facility] Laboratory - Hematology and Cell countsOrdered By: Vasu Blackwell on 05-28-2023 Anisocytosis Ql (Bld) 1+ [facility] Erythrocyte distribution width (RBC) [Entitic vol] 70.1 fL 35.1-43.9 [facility] Erythrocyte distribution width (RBC) [Ratio] 17.0 % 11.6-14.6 [facility] Immature granulocytes/100 WBC (Bld) 0.300 % 0.0-0.9 [facility] Comment on above: IG% - Immature Granu locytes (promyelocytes, myelocytes and metamyelocytes) > 1% indicates that a LEFT SHIFT is Present. MCH (RBC) [Entitic mass] 37.5 pg 27.0-32.0 [facility] Nucleated RBC/100 WBC (Bld) [Ratio] 0 % 0-5 [facility] MCHC Auto (RBC) [Mass/Vol]Or dered By: Vasu Blackwell on 05-28-2023 MCHC (RBC) [Mass/Vol] 33.9 g/dL 32-36 [facility] No Panel InformationOrdered By: Vasu Blackwell on 05-28-2023 Estimated GFR (MDRD) Amer 120 mL/min >60 [facility] Comment on above: GFR Calc Estimated GFR (MDRD) Non-Af Amer 99 mL/min >60 [facility] Comment on above: Non- GFR Calc Platelets bldOrdered By: Vlad Blackwell on 05-28-2023 Platelets (Bld) [#/Vol] 277 10*3/uL 150-450 [facility] Serum or plasma albumin daune urement (mass/volume)Ordered By: Vasu Blackwell on 05-28-2023 Albumin [Mass/Vol] 3.8 g/dL 3.2-5.0 [facility] Serum or plasma albumin/glob ulin mass ratioOrdered By: Vasu Blackwell on 05-28-2023 Albumin/Globulin [Mass ratio] 1.0 {ratio} 0.9-2.4 [facility] Serum or plasma calcium duane urement (mass/volume)Ordered By: Vasu Blackwell on 05-28-2023 Calcium [Mass/Vol] 8.9 mg/dL 8.5-10.1 [facility] Serum or plasma creatinine m easurement (mass/volume)Ordered By: Vasu Blackwell on 05-28-2023 Creatinine [Mass/Vol] 0.86 mg/dL 0.70-1.30 [facility] Comment on above: The validity of the calculated GFR & GFRAA in patients over 70 years has not been determined. Clinical correlation is essential. Serum or plasma urea nitroge n measurement (mass/volume)Ordered By: Vasu Blackwell on 05-28-2023 Urea nitrogen [Mass/Vol] 9 mg/dL 7-18 [facility] Thin prep Papanicolaou smear with manual screeningOrdered By: Vasu Blackwell on 05-28-2023 Thin prep Papanicolaou smear with manual screening 57 U/L 15-37 [facility] Thin prep Papanicolaou smear with manual screening 10 5-15 [facility] Whole blood hemoglobin A1c/t otal hemoglobin ratio (mass fraction)Ordered By: Vasu Blackwell on 05-28-2023 HbA1c (Bld) [Mass fraction] 5.1 % 3.8-5.6 [facility] Comment on above: Normal < 5.7 % Predi abetic 5.7 - 6.4 % Diabetic >or= 6.5 % Please note range changes. Office Visit (Neuro-Epilepsy )on 02-21-2022 Follow-up visit Provider Impressions Mr. Hensley is a LH 51 year old man [...] - Based on the available information, Mr. Hensley most likely has focal epilepsy, localized to [...] admission. We will also request records from [facility]. We will also get an updated [...] appropriate physical examination, counseling and educating the patient/family/caregiver, ordering medications, tests and procedures, referring and communicating with other providers, independently interpreting results and communicating the results to the patient/family/caregiver, care coordination] and documenting clinical information in the medical record. 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 Hensley is a LH 51 year old man [...] has had extensive work up done at [facility] but we don't have access to [...] 02/21/2022 3:45:20 PM Vitals Vital Signs Recorded: [id number] 03:14PM Heart R (more content not included)... Normal [facility] Scre[facility].on 022 Fall risk assessment a) No falls within the last year [facility] [employer] Work Phone: Tobacco use status CPHS b) No [facility] [employer] Work Phone: Absolute lymphocyte counton 12-30-2021 Lymphocytes Auto (Unsp spec) [#/Vol] 3.59 10*3/uL 0.83-4.51 [facility] Work Phone: Basophil percentageon 2021 Basophil percentage 0-5 SEEN /hpf [facility] Work Phone: Basophils/100 WBC (Bld) 0.7 % 0-1 [facility] Work Phone: Chloride [Moles/Vol] 111 mmol/L 98-[address] [facility] Work Phone: Eosinophils/100 WBC (Bld) 6.6 % 0-5 [facility] Work Phone: Glucose [Mass/Vol] 118 mg/dL 74-106 [facility] Work Phone: Comment on above: Fasting Glucose resu lt from 100 to 125 mg/dL suggests IMPAIRED HOMEOSTASIS per A.D.A. criteria. Neutrophils (Bld) [#/Vol] 5.3 10*3/uL 2.0-7.7 [facility] Work Phone: Neutrophils/100 WBC (Bld) 50.2 % 47-70 [facility] Work Phone: Potassium [Moles/Vol] 3.6 mmol/L 3.5-5.1 [facility] Work Phone: Sodium [Moles/Vol] 140 mmol/L 136-145 [facility] Work Phone: WBC (Bld) [#/Vol] 10.5 10*3/uL 4.4-11.0 [facility] Work Phone: Bilirubin Test strip Ql (U)o n 12-30-2021 Bilirubin Ql (U) Negative Negative [facility] Work Phone: Blood erythrocytes count (nu mber/volume)on 12-30-2021 RBC (Bld) [#/Vol] 4.79 10*6/uL 4.6-6.2 [facility] Work Phone: Blood hemoglobin measurement (mass/volume)on 12-30-2021 Hemoglobin (Bld) [Mass/Vol] 14.9 g/dL 13.0-16.5 [facility] Work Phone: Blood lymphocytes/100 leukoc yteson 12-30-2021 Lymphocytes/100 WBC (Bld) 34.3 % 19-41 [facility] Work Phone: Blood monocytes/100 leukocyt eson 12-30-2021 Monocytes/100 WBC (Bld) 7.8 % 0-10 [facility] Work Phone: [phone] Blood platelet mean volumeon 12-30-2021 Platelet mean volume (Bld) [Entitic vol] 9.4 fL 6.2-12.0 [facility] Work Phone: [phone] Determination of erythrocyte mean corpuscular volume (MCV)on 12-30-2021 MCV (RBC) [Entitic vol] 92.5 fL 80-94 [facility] Work Phone: [phone] Hematocrit Auto (Bld) [Volum e fraction]on 12-30-2021 Hematocrit (Bld) [Volume fraction] 44.3 % 40-54 [facility] Work Phone: [phone] Ketones Test strip Ql (U)on 12-30-2021 Ketones Ql (U) 5 mg/dl Negative [facility] Work Phone: Laboratory - Chemistry and C hemistry - challengeon 12-30-2021 CO2 [Moles/Vol] 23.0 mmol/L 21.0-32.0 [facility] Work Phone: [phone] Urea nitrogen/Creatinine [Mass ratio] 16.2 mg/mg 10-20 [facility] Work Phone: [phone] Laboratory - Hematology and Cell countson 12-30-2021 Erythrocyte distribution width (RBC) [Entitic vol] 48.6 fL 35.1-43.9 [facility] Work Phone: [phone] Erythrocyte distribution width (RBC) [Ratio] 14.1 % 11.6-14.6 [facility] Work Phone: [phone] Immature granulocytes/100 WBC (Bld) 0.400 % 0.0-0.9 [facility] Work Phone: [phone] Comment on above: IG% - Immature Granu locytes (promyelocytes, myelocytes and metamyelocytes) > 1% indicates that a LEFT SHIFT is Present. MCH (RBC) [Entitic mass] 31.1 pg 27.0-32.0 [facility] Work Phone: [phone] Nucleated RBC/100 WBC (Bld) [Ratio] 0 % 0-5 [facility] Work Phone: [phone] MCHC Auto (RBC) [Mass/Vol]on 12-30-2021 MCHC (RBC) [Mass/Vol] 33.6 g/dL 32-36 [facility] Work Phone: Mucus LM Ql (Urine sed)on Mucus Ql (Urine sed) 0 SEEN /hpf [facility] Work Phone: [phone] Nitrite Test strip Ql (U)on 12-30-2021 Nitrite Ql (U) Negative Negative [facility] Work Phone: No Panel Informationon 12-30 Estimated Creatinine Clearance Calc 114.06 ml/min [facility] Work Phone: [phone] Estimated GFR (MDRD) Amer 131 mL/min >60 [facility] Work Phone: [phone] Comment on above: GFR Calc Estimated GFR (MDRD) Non-Af Amer 108 mL/min >60 [facility] Work Phone: [phone] Comment on above: Non- GFR Calc Platelets bldon 12-30-2021 Platelets (Bld) [#/Vol] 347 10*3/uL 150-450 [facility] Work Phone: [phone] Protein Test strip Ql (U)on 12-30-2021 Protein Ql (U) Negative Negative [facility] Work Phone: [phone] Serum or plasma calcium duane urement (mass/volume)on 12-30-2021 Calcium [Mass/Vol] 8.8 mg/dL 8.5-10.1 [facility] Work Phone: [phone] Serum or plasma creatinine m easurement (mass/volume)on 12-30-2021 Creatinine [Mass/Vol] 0.80 mg/dL 0.70-1.30 [facility] Work Phone: Comment on above: The validity of the calculated GFR & GFRAA in patients over 70 years has not been determined. Clinical correlation is essential. Serum or plasma urea nitroge n measurement (mass/volume)on 12-30-2021 Urea nitrogen [Mass/Vol] 13 mg/dL 7-18 [facility] Work Phone: Squamous epithelial cells de tection in urine sediment by light microscopyon 12-30-2021 Epithelial cells.squamous LM Ql (Urine sed) 0-5 SEEN /hpf [facility] Work Phone: Thin prep Papanicolaou smear with manual screeningon 12-30-2021 Thin prep Papanicolaou smear with manual screening 6 5-15 [facility] Work Phone: Urine blood detectionon 12-18 RBC Ql (U) Negative Negative [facility] Work Phone: RBC Ql (U) 0-5 SEEN /hpf [facility] Work Phone: Urine clarityon 12-30-2021 Clarity (U) Clear Clear [facility] Work Phone: Urine color determinationon 12-30-2021 Color (U) Yellow Yellow [facility] Work Phone: Urine glucose detectionon Glucose Ql (U) Normal mg/dl Normal [facility] Work Phone: Urine leukocyte esterase det ection by dipstickon 12-30-2021 Leukocyte esterase Test strip Ql (U) Negative Negative [facility] Work Phone: Urine pHon 12-30-2021 pH (U) 6.0 [pH] [facility] Work Phone: Urine sediment bacteria coun t by microscopy (number/high power field)on 12-30-2021 Bacteria LM.HPF (Urine sed) [#/Area] RARE /hpf None Seen [facility] Work Phone: Urine specific gravity measu rementon 12-30-2021 Specific gravity (U) [Rel density] 1.025 [facility] Work Phone: Urobilinogen Auto test strip Ql (U)on 12-30-2021 Urobilinogen Ql (U) Normal mg/dl Normal [facility] Work Phone: Absolute lymphocyte counton 10-26-2021 Lymphocytes Auto (Unsp spec) [#/Vol] 2.64 10*3/uL 0.83-4.51 [facility] Work Phone: Basophil percentageon 2021 Basophils/100 WBC (Bld) 0.6 % 0-1 [facility] Work Phone: Bilirubin [Mass/Vol] 0.10 mg/dL 0.20-1.00 [facility] Work Phone: Comment on above: For patients on eltr ombopag therapy, use of Dimension [place] TBIL is not recommended. Chloride [Moles/Vol] 109 mmol/L 98-107 [facility] Work Phone: Eosinophils/100 WBC (Bld) 6.2 % 0-5 [facility] Work Phone: Glucose [Mass/Vol] 108 mg/dL 74-106 [facility] Work Phone: Comment on above: Fasting Glucose resu lt from 100 to 125 mg/dL suggests IMPAIRED HOMEOSTASIS per A.D.A. criteria. Neutrophils (Bld) [#/Vol] 7.8 10*3/uL 2.0-7.7 [facility] Work Phone: Neutrophils/100 WBC (Bld) 65.3 % 47-70 [facility] Work Phone: Potassium [Moles/Vol] 3.9 mmol/L 3.5-5.1 [facility] Work Phone: Protein [Mass/Vol] 7.0 g/dL 6.4-8.2 [facility] Work Phone: Sodium [Moles/Vol] 137 mmol/L 136-145 [facility] Work Phone: WBC (Bld) [#/Vol] 12.0 10*3/uL 4.4-11.0 [facility] Work Phone: Blood erythrocytes count (nu mber/volume)on 10-26-2021 RBC (Bld) [#/Vol] 4.89 10*6/uL 4.6-6.2 [facility] Work Phone: Blood hemoglobin measurement (mass/volume)on 10-26-2021 Hemoglobin (Bld) [Mass/Vol] 15.3 g/dL 13.0-16.5 [facility] Work Phone: [phone] Blood lymphocytes/100 leukoc yteson 10-26-2021 Lymphocytes/100 WBC (Bld) 22.0 % 19-41 [facility] Work Phone: [phone] Blood monocytes/100 leukocyt eson 10-26-2021 Monocytes/100 WBC (Bld) 5.5 % 0-10 [facility] Work Phone: [phone] Blood platelet mean volumeon 10-26-2021 Platelet mean volume (Bld) [Entitic vol] 9.3 fL 6.2-12.0 [facility] Work Phone: Determination of erythrocyte mean corpuscular volume (MCV)on 10-26-2021 MCV (RBC) [Entitic vol] 93.5 fL 80-94 [facility] Work Phone: Hematocrit Auto (Bld) [Volum e fraction]on 10-26-2021 Hematocrit (Bld) [Volume fraction] 45.7 % 40-54 [facility] Work Phone: Laboratory - Chemistry and C hemistry - challengeon 10-26-2021 ALP [Catalytic activity/Vol] 54 U/L 45-117 [facility] Work Phone: [phone] ALT [Catalytic activity/Vol] 17 U/L 16-61 [facility] Work Phone: [phone] CO2 [Moles/Vol] 19.0 mmol/L 21.0-32.0 [facility] Work Phone: [phone] Globulin (S) [Mass/Vol] 3.4 g/dL 2.2-4.2 [facility] Work Phone: [phone] Urea nitrogen/Creatinine [Mass ratio] 27.0 mg/mg 10-20 [facility] Work Phone: [phone] Laboratory - Hematology and Cell countson 10-26-2021 Erythrocyte distribution width (RBC) [Entitic vol] 51.6 fL 35.1-43.9 [facility] Work Phone: [phone] Erythrocyte distribution width (RBC) [Ratio] 15.0 % 11.6-14.6 [facility] Work Phone: [phone] Immature granulocytes/100 WBC (Bld) 0.400 % 0.0-0.9 [facility] Work Phone: [phone] Comment on above: IG% - Immature Granu locytes (promyelocytes, myelocytes and metamyelocytes) > 1% indicates that a LEFT SHIFT is Present. MCH (RBC) [Entitic mass] 31.3 pg 27.0-32.0 [facility] Work Phone: [phone] Nucleated RBC/100 WBC (Bld) [Ratio] 0 % 0-5 [facility] Work Phone: [phone] MCHC Auto (RBC) [Mass/Vol]on 10-26-2021 MCHC (RBC) [Mass/Vol] 33.5 g/dL 32-36 [facility] Work Phone: No Panel Informationon 10-26 Miscellaneous Test See comment [facility] Work Phone: [phone] Comment on above: TEST RESULT LIMITSZo nisamide(Zonegran), Serum Zonisamide 10.4 ug/mL 10.0 - 40.0 Detection Limit = 2.0 [facility] ORIGINAL REPORT ON FILE IN LAB CONTAINS ADDITIONAL TEST SITE INFORMATION. Valproic Acid (Depakene) Level 46 ug/mL 50-100 [facility] Work Phone: Estimated GFR (MDRD) Amer 152 mL/min >60 [facility] Work Phone: Comment on above: GFR Calc Estimated GFR (MDRD) Non-Af Amer 126 mL/min >60 [facility] Work Phone: Comment on above: Non- GFR Calc Platelets bldon 10-26-2021 Platelets (Bld) [#/Vol] 377 10*3/uL 150-450 [facility] Work Phone: Serum or plasma albumin duane urement (mass/volume)on 10-26-2021 Albumin [Mass/Vol] 3.6 g/dL 3.2-5.0 [facility] Work Phone: Serum or plasma albumin/glob ulin mass ratioon 10-26-2021 Albumin/Globulin [Mass ratio] 1.1 {ratio} 0.9-2.4 [facility] Work Phone: [phone] Serum or plasma calcium duane urement (mass/volume)on 10-26-2021 Calcium [Mass/Vol] 8.2 mg/dL 8.5-10.1 [facility] Work Phone: [phone] Serum or plasma creatinine m easurement (mass/volume)on 10-26-2021 Creatinine [Mass/Vol] 0.70 mg/dL 0.70-1.30 [facility] Work Phone: Comment on above: The validity of the calculated GFR & GFRAA in patients over 70 years has not been determined. Clinical correlation is essential. Serum or plasma urea nitroge n measurement (mass/volume)on 10-26-2021 Urea nitrogen [Mass/Vol] 19 mg/dL 7-18 [facility] Work Phone: [phone] Thin prep Papanicolaou smear with manual screeningon 10-26-2021 Thin prep Papanicolaou smear with manual screening 9 U/L 15-37 [facility] Work Phone: Thin prep Papanicolaou smear with manual screening 9 01-01 [facility] Work Phone: LABORATORYOrdered By: Victorina Christie on [...] Code AO Chemistry S Telephone Encounteron 2020 [employer] Authentication Interface Message Text Situation: Call from [...] Mychart dept. Recommendation: See above. Normal [facility] BASIC METABOLIC PANELon 01-18 Anion gap [Moles/Vol] 11 mmol/L Normal 5-13 [facility] Comment on above: Performed By: #### 8 2948 #### NURSING GLUCOSE PROGRAM [address] [place], [address] Calcium [Mass/Vol] 8.6 mg/dL Normal 8.4-10.4 [facility] Comment on above: Performed By: #### 8 2948 #### NURSING GLUCOSE PROGRAM [address] [place], [address] Chloride [Moles/Vol] 105 mmol/L Normal 97-111 [facility] Comment on above: Performed By: #### 8 2948 #### NURSING GLUCOSE PROGRAM [address] [facility] [place], [address] CO2 [Moles/Vol] 25 mmol/L Normal 21-30 [facility] Comment on above: Performed By: #### 8 2948 #### NURSING GLUCOSE PROGRAM [address] [place] [address], [address] Creatinine [Mass/Vol] 0.60 mg/dL Low 0.80-1.30 [facility] Comment on above: Performed By: #### 8 2948 #### NURSING GLUCOSE PROGRAM [address] [place], [address] ESTIMATED GFR (CKD-EPI) 118 mL/min/1.73sqm Normal >=60 [facility] Comment on above: Performed By: #### 8 2948 #### NURSING GLUCOSE PROGRAM [address] [place] [address], [address] Glucose [Mass/Vol] 94 mg/dL Normal 68-110 [facility] Comment on above: Performed By: #### 8 2948 #### NURSING GLUCOSE PROGRAM [address] [place] [address], [address] Potassium [Moles/Vol] 3.9 mmol/L Normal 3.3-5.3 [facility] Comment on above: Performed By: #### 8 2948 #### NURSING GLUCOSE PROGRAM [address] [place] [address], [address] Sodium [Moles/Vol] 137 mmol/L Normal 135-148 [facility] Comment on above: Performed By: #### 8 2948 #### NURSING GLUCOSE PROGRAM [address] [place] [address], [address] Urea nitrogen [Mass/Vol] 4 mg/dL Low 8-22 [facility] Comment on above: Performed By: #### 8 2948 #### NURSING GLUCOSE PROGRAM [address] [place] [address], [address] COMPLETE BLOOD COUNTon 01-31 Erythrocyte distribution width (RBC) [Ratio] 14.5 % Normal 11.5-14.5 [facility] Comment on above: Performed By: #### M EDGAR Martinez, CH8, HEPATIC #### [facility] [address] [place] [address], [id number] Hematocrit (Bld) [Volume fraction] 39.6 % Low 41.0-53.0 [facility] Comment on above: Performed By: #### M G, ETOH, CH8, HEPATIC #### [facility] [address] [place], [place], Hemoglobin (Bld) [Mass/Vol] 13.1 g/dL Low 13.9-16.3 [facility] Comment on above: Performed By: #### M G, ETOH, CH8, HEPATIC #### [facility] [address] [place], [place], MCH (RBC) [Entitic mass] 30.0 pg Normal 26.0-34.0 [facility] Comment on above: Performed By: #### M G, ETOH, CH8, HEPATIC #### [facility] [address] [place], [place], MCHC (RBC) [Mass/Vol] 33.0 g/dL Normal 32.0-35.9 [facility] Comment on above: Performed By: #### M G, ETOH, CH8, HEPATIC #### [facility] [address] [place] [address], MCV (RBC) [Entitic vol] 91 fL Normal 80-100 [facility] Comment on above: Performed By: #### M G, ETOH, CH8, HEPATIC #### [facility] [address] [place] [address], Platelet mean volume (Bld) [Entitic vol] 7.3 fL Low 7.5-11.2 [facility] Comment on above: Performed By: #### M G, ETOH, CH8, HEPATIC #### [facility] [address] [place], [place], Platelets (Bld) [#/Vol] 332 10*3/uL Normal 150-400 [facility] Comment on above: Performed By: #### M G, ETOH, CH8, HEPATIC #### [facility] [address] [place], [place], RBC (Bld) [#/Vol] 4.35 10*6/uL Low 4.50-5.90 [facility] Comment on above: Performed By: #### M G, ETOH, CH8, HEPATIC #### [facility] [address] [place] [address], WBC (Bld) [#/Vol] 12.6 10*3/uL High 4.5-11.5 [facility] Comment on above: Performed By: #### M G, ETOH, CH8, HEPATIC #### [facility] [address] [place] [address], Care Plan Noteon 01-31-2021 Elementary Education Teacher Authentication Interface Message Text Problem: Routine Care: [...] #### 8 2948 #### NURSING GLUCOSE PROGRAM [address] [place] [address], Glucose [Mass/Vol] 113 mg/dL High 68-110 [facility] Comment on above: Performed By: #### M G, ETOH, CH8, HEPATIC #### [facility] [address] [place] [address], Glucose [Mass/Vol] 125 mg/dL High 68-110 [facility] Comment on above: Performed By: #### M G, ETOH, CH8, HEPATIC #### [facility] [address] [place] [address], Glucose [Mass/Vol] 95 mg/dL Normal 68-110 [facility] Comment on above: Performed By: #### M Michelle, ETOH, CH8, HEPATIC #### [facility] [address] [place], [place], MAGNESIUMon 01-31-2021 Magnesium [Mass/Vol] 1.6 mg/dL Normal 1.6-2.8 [facility] Comment on above: Performed By: #### 8 2948 #### NURSING GLUCOSE PROGRAM [address] [place] [address], [address] PHOSPHORUSon 01-31-2021 Phosphate [Mass/Vol] 3.2 mg/dL Normal 2.5-4.8 [facility] Comment on above: Performed By: #### 8 2948 #### NURSING GLUCOSE PROGRAM [address] [place] [address], [address] BASIC METABOLIC PANELon 01-18 Anion gap [Moles/Vol] 10 mmol/L Normal 5-13 [facility] Comment on above: Performed By: #### Feliciano Martinez, ETOH, CH8, HEPATIC #### [facility] [address] [place] [address], Calcium [Mass/Vol] 8.3 mg/dL Low 8.4-10.4 [facility] Comment on above: Performed By: #### Feliciano G, ETOH, CH8, HEPATIC #### [facility] [address] [place] [address], Chloride [Moles/Vol] 106 mmol/L Normal 97-111 [facility] Comment on above: Performed By: #### M G, ETOH, CH8, HEPATIC #### [facility] [address] [place], [place], CO2 [Moles/Vol] 27 mmol/L Normal 21-30 [facility] Comment on above: Performed By: #### M G, ETOH, CH8, HEPATIC #### [facility] [address] [place] [address], Creatinine [Mass/Vol] 0.72 mg/dL Low 0.80-1.30 [facility] Comment on above: Performed By: #### M G, ETOH, CH8, HEPATIC #### [facility] [address] [place] [address], ESTIMATED GFR (CKD-EPI) 110 mL/min/1.73sqm Normal >=60 [facility] Comment on above: Performed By: #### M G, ETOH, CH8, HEPATIC #### [facility] [address] [place] [address], Glucose [Mass/Vol] 99 mg/dL Normal 68-110 [facility] Comment on above: Performed By: #### M G, ETOH, CH8, HEPATIC #### [facility] [address] [place] [address], Potassium [Moles/Vol] 4.0 mmol/L Normal 3.3-5.3 [facility] Comment on above: Performed By: #### M G, ETOH, CH8, HEPATIC #### [facility] [address] [place] [address], Sodium [Moles/Vol] 139 mmol/L Normal 135-148 [facility] Comment on above: Performed By: #### M G, ETOH, CH8, HEPATIC #### [facility] [address] [place] [address], Urea nitrogen [Mass/Vol] mg/dL Low 8-22 [facility] Comment on above: Performed By: #### M G, ETOH, CH8, HEPATIC #### [facility] [address] [place] [address], COMPLETE BLOOD COUNTon 01-30 Erythrocyte distribution width (RBC) [Ratio] 14.9 % High 11.5-14.5 [facility] Comment on above: Performed By: #### M G, ETOH, CH8, HEPATIC #### [facility] [address] [place] [address], Hematocrit (Bld) [Volume fraction] 37.6 % Low 41.0-53.0 [facility] Comment on above: Performed By: #### M G, ETOH, CH8, HEPATIC #### [facility] [address] [place] [address], Hemoglobin (Bld) [Mass/Vol] 12.8 g/dL Low 13.9-16.3 [facility] Comment on above: Performed By: #### M G, ETOH, CH8, HEPATIC #### [facility] [address] [place] [address], MCH (RBC) [Entitic mass] 31.8 pg Normal 26.0-34.0 [facility] Comment on above: Performed By: #### M G, ETOH, CH8, HEPATIC #### [facility] [address] [place] [address], MCHC (RBC) [Mass/Vol] 34.0 g/dL Normal 32.0-35.9 [facility] Comment on above: Performed By: #### M G, ETOH, CH8, HEPATIC #### [facility] [address] [place] [address], MCV (RBC) [Entitic vol] 93 fL Normal 80-100 [facility] Comment on above: Performed By: #### M G, ETOH, CH8, HEPATIC #### [facility] [address] [place] [address], Platelet mean volume (Bld) [Entitic vol] 7.3 fL Low 7.5-11.2 [facility] Comment on above: Performed By: #### M G, ETOH, CH8, HEPATIC #### [facility] [address] [place] [address], Platelets (Bld) [#/Vol] 334 10*3/uL Normal 150-400 [facility] Comment on above: Performed By: #### M G, ETOH, CH8, HEPATIC #### [facility] [address] [place], [place], RBC (Bld) [#/Vol] 4.03 10*6/uL Low 4.50-5.90 [facility] Comment on above: Performed By: #### M G, ETOH, CH8, HEPATIC #### [facility] [address] [place], [place], WBC (Bld) [#/Vol] 10.3 10*3/uL Normal 4.5-11.5 [facility] Comment on above: Performed By: #### M G, ETOH, CH8, HEPATIC #### [facility] [address] [place], [address] Care Plan Noteon 01-30-2021 Elementary Education Teacher Authentication Interface Message Text Problem: Routine Care: Goal: Patient care will be managed and maintained throughout hospital stay per unit specific routine care procedure Outcome: Progressing- Routine NCCU care in place Problem: Altered Neurological Status: Goal: Optimal neurological status will be maintained or regained Outcome: Progressing- Q2 neuro checks in place, see epic, notify WARDROBE TECHNICIAN with any changes in assessment Problem: Alteration [...] yesterday, calm and follows commands Normal [facility] GLUCOSE, FINGERSTICK-IN OFFI CEon 01-30-2021 Glucose [Mass/Vol] 95 mg/dL Normal 68-110 [facility] Comment on above: Result Comment: Ayaka tolentino RN, APN, MD Performed By: #### 8 [id number] #### NURSING GLUCOSE PROGRAM [address] [place], [address] Glucose [Mass/Vol] 102 mg/dL Normal 68-110 [facility] Comment on above: Performed By: #### M G, ETOH, CH8, HEPATIC #### [facility] [address] [place], [place], Glucose [Mass/Vol] 84 mg/dL Normal 68-110 [facility] Comment on above: Performed By: #### 8 2948 #### NURSING GLUCOSE PROGRAM [address] [place], [address] Glucose [Mass/Vol] 89 mg/dL Normal 68-110 [facility] Comment on above: Performed By: #### M G, ETOH, CH8, HEPATIC #### [facility] [address] [place], [place], Glucose [Mass/Vol] 126 mg/dL High 68-110 [facility] Comment on above: Result Comment: Ayaka tolentino RN, APN, MD Performed By: #### M G, ETOH, CH8, HEPATIC #### [facility] [address] [place], [place], MAGNESIUMon 01-30-2021 Magnesium [Mass/Vol] 1.9 mg/dL Normal 1.6-2.8 [facility] Comment on above: Performed By: #### M G, ETOH, CH8, HEPATIC #### [facility] [address] [place], [place], PHOSPHORUSon 01-30-2021 Phosphate [Mass/Vol] 3.4 mg/dL Normal 2.5-4.8 [facility] Comment on above: Performed By: #### M G, ETOH, CH8, HEPATIC #### [facility] [address] [place], [place], Progress Noteson 01-30-2021 Elementary Education Teacher Authentication Interface Message Text 01/30/21 1309 Belongings AND Valuables Belongings With patient Valuables With patient Dentures, wallet, cell phone, belongings sent with patient on transfer to . Normal [facility] Elementary Education Teacher Authentication Interface Message Text NEUROCRITICAL CARE SUBSEQUENT [...] R gaze deviation. Taken by EMS to [facility], where he was intubated for altered mental status with pH 7.14. Lactate 8.8, BG 250s. CTH reportedly without acute finding....stable encephalomalacia within the lateral L temporal lobe. ETOH <5, tox screen + THC. Transferred to [facility] for further evaluation. Admitted to MICU. Seizure activity on arrival to [facility] described as myoclonic jerking in all extremities, [...] 1 mg tablet, 1 mg, Oral, Daily, Medve, Nasra, PHOTOGRAPHY TEACHER-WARDROBE TECHNICIAN * cerovite jr 1 Tablet oral chew tab, 1 Tablet, Oral, Daily, Medve, Nasra, PHOTOGRAPHY TEACHER-WARDROBE TECHNICIAN * lactated ringers iv infusion, , Intravenous, Continuous, Barbra Coleman APRN-CNP, Last Rate: 75 mL/hr at 01/30/21 0700, Rate Verify at 01/30/21 0700 * docusate sodium (COLACE) 100 mg capsule, 100 mg, Oral, 2x Daily, Barbra Coleman APRN-CNP, 100 mg at 01/30/21936 * senna (SENOKOT) 8.6 mg tablet, 8.6 mg, Oral, At Bedtime, Barbra Coleman APRN-CNP, 8.6 mg at 01/29/212236 * levETIRAcetam in NaCl 100 mL (KEPPRA) ivpb 1,500 mg 100 mL, 1,500 mg, Intravenous, Every 12 hours, Sangeeta Deng APRN-CNP, Last Rate: 400 mL/hr at 01/30/218, 1,500 mg at 01/30/218 * vitamin B-1 (thiamine) 500 mg in [...] P (more content not included)... Normal [facility] Transfer Noteon 01-30-2021 Elementary Education Teacher Authentication Interface Message Text Transfer of Care Note: HPI: 50M w/ a PMH of seizures, back pain, ETOH abuse presents 01/27 as a transfer from [facility] with status epilepticus. EMS initially called for patient sitting in car with seizure activity. Found unresponsive, given naloxone without response. Glucose 85, taken to [place] ED. Acidotic (7.14) intubated for airway protection, given 1 gm Keppra, lactate 8.8 --> transferred via [facility] to [facility]U. Serum ETOH Negative. Tox screen + THC, [...] to Med Team at 1210 Nasra Echols APRN-[facility] Neurocritical Care Service Pager: [phone] Normal [facility] AMMONIAon 01-29-2020 AMMO 28 umol/L Normal 11-35 [facility] Comment on above: Performed By: #### M G, ETOH, CH8, HEPATIC #### [facility] [address] [place] [address], BASIC METABOLIC PANELon 01-18 Anion gap [Moles/Vol] 9 mmol/L Normal 5-13 [facility] Comment on above: Performed By: #### M G, ETOH, CH8, HEPATIC #### [facility] [address] [place] [address], Calcium [Mass/Vol] 7.7 mg/dL Low 8.4-10.4 [facility] Comment on above: Performed By: #### M G, ETOH, CH8, HEPATIC #### [facility] [address] [place] [address], Chloride [Moles/Vol] 109 mmol/L Normal 97-111 [facility] Comment on above: Performed By: #### M G, ETOH, CH8, HEPATIC #### [facility] [address] [place] [address], CO2 [Moles/Vol] 25 mmol/L Normal 21-30 [facility] Comment on above: Performed By: #### M G, ETOH, CH8, HEPATIC #### [facility] [address] [place] [address], Creatinine [Mass/Vol] 0.58 mg/dL Low 0.80-1.30 [facility] Comment on above: Performed By: #### M G, ETOH, CH8, HEPATIC #### [facility] [address] [place] [address], ESTIMATED GFR (CKD-EPI) 120 mL/min/1.73sqm Normal >=60 [facility] Comment on above: Performed By: #### M G, ETOH, CH8, HEPATIC #### [facility] [address] [place] [address], Glucose [Mass/Vol] 92 mg/dL Normal 68-110 [facility] Comment on above: Performed By: #### M G, ETOH, CH8, HEPATIC #### [facility] [address] [place] [address], Potassium [Moles/Vol] 3.8 mmol/L Normal 3.3-5.3 [facility] Comment on above: Performed By: #### M G, ETOH, CH8, HEPATIC #### [facility] [address] [place] [address], Sodium [Moles/Vol] 139 mmol/L Normal 135-148 [facility] Comment on above: Performed By: #### M G, ETOH, CH8, HEPATIC #### [facility] [address] [place] [address], Urea nitrogen [Mass/Vol] mg/dL Low 8-22 [facility] Comment on above: Performed By: #### M G, ETOH, CH8, HEPATIC #### [facility] [address] [place] [address], BLOOD GAS, ARTERIALon 2020 CR HANNAH 2.2 mmol/L High -2.0-2.0 [facility] Comment on above: Performed By: #### M G, ETOH, CH8, HEPATIC #### [facility] [address] [place] [address], CR PCO2 39.5 mm Hg Normal 35.0-45.0 [facility] Comment on above: Performed By: #### M G, ETOH, CH8, HEPATIC #### [facility] [address] [place] [address], CR PHA 7.434 Normal 7.35-7.45 [facility] Comment on above: Performed By: #### M G, ETOH, CH8, HEPATIC #### [facility] [address] [place] [address], CR PO2 139 mm Hg High 80-100 mm Hg [facility] Comment on above: Performed By: #### M G, ETOH, CH8, HEPATIC #### [facility] [address] [place] [address], FIO2 (CATEGORY) 40% Normal [facility] Comment on above: Performed By: #### M G, ETOH, CH8, HEPATIC #### [facility] [address] [place] [address], HCO3 (Bld) [Moles/Vol] 26 mmol/L Normal 22-28 [facility] Comment on above: Performed By: #### M G, ETOH, CH8, HEPATIC #### [facility] [address] [place] [address], MODE Vent Normal [facility] Comment on above: Performed By: #### M G, ETOH, CH8, HEPATIC #### [facility] [address] [place] [address], Oxygen saturation in Blood 99.3 % Normal >=95.1 [facility] Comment on above: Performed By: #### M G, ETOH, CH8, HEPATIC #### [facility] [address] [place] [address], CR HANNAH 0.5 mmol/L Normal -2.0-2.0 [facility] Comment on above: Performed By: #### M G, ETOH, CH8, HEPATIC #### [facility] [address] [place] [address], CR PCO2 48.8 mm Hg High 35.0-45.0 [facility] Comment on above: Performed By: #### M G, ETOH, CH8, HEPATIC #### [facility] [address] [place] [address], CR PHA 7.349 Low 7.35-7.45 [facility] Comment on above: Performed By: #### M G, ETOH, CH8, HEPATIC #### [facility] [address] [place] [address], CR PO2 89 mm Hg Normal 80-100 mm Hg [facility] Comment on above: Performed By: #### M G, ETOH, CH8, HEPATIC #### [facility] [address] [place] [address], FIO2 (CATEGORY) 40% Normal [facility] Comment on above: Performed By: #### M G, ETOH, CH8, HEPATIC #### [facility] [address] [place] [address], HCO3 (Bld) [Moles/Vol] 26 mmol/L Normal 22-28 [facility] Comment on above: Performed By: #### M G, ETOH, CH8, HEPATIC #### [facility] [address] [place] [address], MODE Vent Normal [facility] Comment on above: Performed By: #### M G, ETOH, CH8, HEPATIC #### [facility] [address] [place] [address], Oxygen saturation in Blood 97.2 % Normal >=95.1 [facility] Comment on above: Performed By: #### M G, ETOH, CH8, HEPATIC #### [facility] [address] [place] [address], COMPLETE BLOOD COUNTon 01-29 Erythrocyte distribution width (RBC) [Ratio] 14.9 % High 11.5-14.5 [facility] Comment on above: Performed By: #### 8 2948 #### NURSING GLUCOSE PROGRAM [address] [place] [address], Hematocrit (Bld) [Volume fraction] 36.8 % Low 41.0-53.0 [facility] Comment on above: Performed By: #### 8 2948 #### NURSING GLUCOSE PROGRAM [address] [place] [address], Hemoglobin (Bld) [Mass/Vol] 12.4 g/dL Low 13.9-16.3 [facility] Comment on above: Performed By: #### 8 2948 #### NURSING GLUCOSE PROGRAM [address] [place], [address] MCH (RBC) [Entitic mass] 31.0 pg Normal 26.0-34.0 [facility] Comment on above: Performed By: #### 8 2948 #### NURSING GLUCOSE PROGRAM [address] [place], [address] MCHC (RBC) [Mass/Vol] 33.6 g/dL Normal 32.0-35.9 [facility] Comment on above: Performed By: #### 8 2948 #### NURSING GLUCOSE PROGRAM [address] [place], [address] MCV (RBC) [Entitic vol] 92 fL Normal 80-100 [facility] Comment on above: Performed By: #### 8 2948 #### NURSING GLUCOSE PROGRAM [address] [place], [address] Platelet mean volume (Bld) [Entitic vol] 7.0 fL Low 7.5-11.2 [facility] Comment on above: Performed By: #### 8 2948 #### NURSING GLUCOSE PROGRAM [address] [place], [address] Platelets (Bld) [#/Vol] 312 10*3/uL Normal 150-400 [facility] Comment on above: Performed By: #### 8 2948 #### NURSING GLUCOSE PROGRAM [address] [place], [address] RBC (Bld) [#/Vol] 3.99 10*6/uL Low 4.50-5.90 [facility] Comment on above: Performed By: #### 8 2948 #### NURSING GLUCOSE PROGRAM [address] [place], [address] WBC (Bld) [#/Vol] 8.5 10*3/uL Normal 4.5-11.5 [facility] Comment on above: Performed By: #### 8 2948 #### NURSING GLUCOSE PROGRAM [address] [place], [address] CREATINE KINASEon 01-29-2021 CK [Catalytic activity/Vol] 543 U/L High 57-374 [facility] Comment on above: Performed By: #### M G, ETOH, CH8, HEPATIC #### [facility] [address] [place], [address] Care Plan 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 manner consistent with CLIA requirements. This test has not been cleared or approved by the U.S. Food and Drug Administration; however, the FDA has determined that such clearance or approval is not necessary. Performed By: #### M G, ETOH, CH8, HEPATIC #### [facility] [address], [place], THC CONFIRMATION Positive Abnormal Cutoff: 15 [facility] Comment on above: Order Comment: Scree n results are reported as positive (at or above the cutoff) or negative (below the cutoff).The GC/MS testing (if applicable) was developed and its performance characteristics determined by [facility] in a manner consistent with CLIA requirements. This test has not been cleared or approved by the U.S. Food and Drug Administration; however, the FDA has determined that such clearance or approval is not necessary. Result Comment: The drug analyte detected in this assay, 63-siy-Lxwgeoq-delta 9-THC, is a metabolite of ccaoz-3-hqizjkuwjsibmgsmczmn (THC). Detection of 26-omw-Zqzldlh-delta 9-THC suggests use of, or exposure to, a product containing THC. This test cannot distinguish between prescribed or non-prescribed forms of THC, nor can it distinguish between active or passive use. The 84-gwv-Qgahyxz-delta 9-THC metabolite may be detected in urine for several weeks. 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 He was brought to [facility] ED. Initial exam was notable for active [...] To Do: [ ] EEG Normal [facility] URINALYSISon 01-28-2021 Glucose Ql (U) Negative [...] ETOH, CH8, HEPATIC #### [facility] [address] [place] [address], U APPEAR Clear Normal Clear [facility] Comment on above: Order Comment: A [...] ETOH, CH8, HEPATIC #### [facility] [address] [place] [address], U BACTERIA Few Normal [facility] [...] ETOH, CH8, HEPATIC #### [facility] [address] [place] [address], U BILI Negative Normal Negative [facility] Comment on above: Order Comment: A [...] #### M G, ETOH, CH8, HEPATIC #### [facility] [address] [place] [address], U BLOOD Trace Abnormal Negative [facility] Comment on above: Order Comment: A [...] #### M G, ETOH, CH8, HEPATIC #### [facility] [address], [place], U COLOR Yellow Normal Yellow [facility] Comment on above: Order Comment: A [...] CH8, HEPATIC #### [facility] [address], [place], U KETONE Negative Normal Negative [facility] Comment on above: Order Comment: A [...] CH8, HEPATIC #### [facility] [address], [place], U LEUK Trace Abnormal Negative [facility] Comment on above: Order Comment: A [...] ETOH, CH8, HEPATIC #### [facility] [address] [place] [address], U MUCOUS Present Normal [facility] Comment on above: Order Comment: A [...] CH8, HEPATIC #### [facility] [address], [place], [place] NITRITE Negative Normal Negative [facility] Comment on above: Order Comment: A [...] ETOH, CH8, HEPATIC #### [facility] [address] [place] [address], U PH 6.0 Normal 5.0-8.0 [facility] Comment on above: Order Comment: A [...] ETOH, CH8, HEPATIC #### [facility] [address] [place] [address], U PROTEIN Negative Normal Negative [facility] Comment on above: Order Comment: A [...] ETOH, CH8, HEPATIC #### [facility] [address] [place] [address], U RBC 3-5 Abnormal 0-2 [facility] Comment on above: Order Comment: A [...] CH8, HEPATIC #### [facility] [address], [place], U SG 1.009 Normal 1.005-1.030 [facility] Comment on above: Order Comment: A [...] CH8, HEPATIC #### [facility] [address], [place], U UROBILI Negative Normal 0.1 - 1.0 [facility] Comment on above: Order Comment: A [...] CH8, HEPATIC #### [facility] [address], [place], U WBC 3-5 Abnormal 0-2 [facility] Comment on above: Order Comment: A [...] UTI around 50%) Performed By: #### M EDGAR Martinez CH8, HEPATIC #### [facility] [address], [place], CNCOon 08-15-2019 CNCO Letter Text Normal [facility] CNTHERAPYon 08-11-2019 CNTHERAPY OT/PT/Speech Visit (B[facility]) ----- RHODA HENSLEY ([id number]) 1970 M Date Time Provider Department 08/11/19 9:15 AM ROSENDA KNIGHT (OT) [facility] Date Time Provider Department Center 08/11/2019 9:15 AM [id number] LANG COJAKOB ELLISTON Reason for Visit: Occupational Therapy [504] OT Discharge [750] Primary Visit Diagnosis:SAH (subarachnoid hemorrhage) (HCC) [I60.9] Other Visit Diagnoses:Closed fracture of vault of skull with routine healing, subsequent encounter [S02.0XXD] Subdural hematoma (HCC) [S06.5X9A] Allergies As of Date: 08/11/2019 Noted Allergy Reaction MORPHINE 06/03/2019 1 - Mental Status Change Comments: Patient's contact reports nightmares VICODIN (HYDROCODONE-ACETAMINOPHE *11/16/2009 1 - Mental Status Change Comments: States has bad nightmares Date Reviewed: 07/25/2019 Reviewed by: [facility] - Fully Assessed Prescriptions as [...] for navigation in unfamiliar areas. ASSESSMENT: Rhoda Hensley tolerated today's treatment visit well. 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 Wear glasses to drive. 2. See previous report for IADL recommendations. Billing: Tucker: Drivers Follow Up per 60 min ([id number]): 1:1 time 60 min Total time: 60 minutes WHIT Carlton/Tory ----- Letter Text Normal [facility] PROGRESSon 08-11-2019 PROGRESS HNO ID: [id number] Author: Rosenda Knight OT Service: ? Author [...] for navigation in unfamiliar areas. ASSESSMENT: Rhoda Hensley tolerated today's treatment visit well. 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 Wear glasses to drive. 2. See previous report for IADL recommendations. Billing: Tucker: Drivers Follow Up per 60 min (16096): 1:1 time 60 min Total time: 60 minutes WHIT Carlton/Tory Normal [facility] CNTHERAPYon 08-07-2019 CNTHERAPY OT/PT/Speech Visit (BECKY) ----- RHODA HENSLEY ([id number]) 1970 M Date Time Provider Department 08/07/19 8:15 AM ROSENDA KNIGHT (TIKA) [facility] Date Time Provider Department Center 08/07/2019 8:15 AM [id number] LANG [facility] Reason for Visit: OT EVAL [748] Primary Visit Diagnosis:SAH (subarachnoid hemorrhage) (HCC) [I60.9] Other Visit Diagnoses:Subdural hematoma (HCC) [S06.5X9A] Closed fracture of vault of skull with routine healing, subsequent encounter [S02.0XXD] Allergies As of Date: 08/07/2019 Noted Allergy Reaction MORPHINE 06/03/2019 1 - Mental Status Change Comments: Patient's contact reports nightmares VICODIN (HYDROCODONE-ACETAMINOPHE *11/16/2009 1 - Mental Status Change Comments: States has bad nightmares Date Reviewed: 07/25/2019 Reviewed by: [facility] Louie - Fully Assessed Prescriptions as of 08/07/2019 Sig: AMITRIPTYLINE 50 MG TABLET Take 1 tablet by mouth daily * ACETAMINOPHEN 325 MG TABLET Take 2 tablets by mouth every* Progress Notes: DONALD Carlton, OT 08/07/2019 10:46 AM Signed Episode Visit Count: 1 Start of Care Date: 08/07/19 Onset Date: 06/01/19 Plan of Care Certification Date: 08/07/19 Patient Identified by Name and Date of : Yes REHABILITATION AND SPORTS THERAPY OCCUPATIONAL THERAPY INSTRUMENTAL ADL AND COMMUNITY MOBILITY EVALUATION SUBJECTIVE: Rhoda Hensley is a 49 year old male seen [...] 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 State: [place] License/Permit #: [id number] Expires: 2022 Restrictions: none 5 Yr. Violation HX: none (speeding ticket in 2008) 5 Yr. MVA HX: none Handicap Parking Placard: NO 1. Rhoda Hensley self report indicates an awareness of: head injury with no recall of events. 2. Rhoda Hensley expressed confidence regarding driving in all conditions. 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 [place] Cable Maker Simulator: Simple Brake Reaction Time: Average Distance: [...] completed next session. Education: Education Learning Preferences: Demonstration;Explanation ;Performance Barriers: None Learning/educational needs: Safety;Health promotion;Plan of Care Education Provided: Yes, see treatment interventions for education provided Education Provided To: Patient Education Mode/Type: Demonstration;Explanation /Discussion;Performance Response to Education/Teach Back: States/Identifies;Return Demonstration TREATMENT: Evaluation Evaluation Self-Alf Management: 1: Safety instruction given throughout session. [...] this report indicates the ability of the coach tour driver to operate a motor vehicle on this date only. Due to the complex nature of the safe operation of a motor vehicle, and considering the demands of integrating changing environmental conditions, and visual, cognitive, and physical skills, successful completion of this program is not a guarantee of safe driving in the future. ASSESSMENT OF INSTRUMENTAL ADL AND COMMUNITY MOBILITY: Rhoda Hensley presents with the diagnosis of SAH, intracranial [...] Planned: 1 Patient to be see for Cable Maker rehab evaluation;Drivers training;Patient/Family/C aregiver Education PLAN FOR NEXT VISIT: on the road session Patient demonstrates good understanding of plan of care and treatment. The above goals and plan of care were discussed and agreed upon by patient/family. Billing: [place]: Evaluation - Low Complexity ( [id number]) Self Care / Home Management (76096): 1:1 time: 45 minutes (3 units: 38-52 mins) Community/Work Reintegration (15767): 1:1 time: 15 minutes (1 unit: 8-22 mins) Total time: 1 hour 45 minutes WHIT [place]/Tory Certified Cable Maker Horticulture Superintendent ----- Letter Text [facility] PROGRESSon 08-07-2019 PROGRESS HNO ID: [id number] Author: Rosenda Knight OT Service: ? 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 State: [place] License/Permit #: [id number] Expires: 2022 Restrictions: none 5 Yr. Violation HX: none (speeding ticket in 2008) 5 Yr. MVA HX: none Handicap Parking Placard: NO 1. Rhoda Hensley self report indicates an awareness of: head injury with no recall of events. 2. Rhoda Hensley expressed confidence regarding driving in all conditions. 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 [place] Cable Maker Simulator: Simple Brake Reaction Time: Average Distance: [...] completed next session. Education: Education Learning Preferences: Demonstration;Explanation ;Performance Barriers: None Learning/educational needs: Safety;Health promotion;Plan of Care Education Provided: Yes, see treatment interventions for education provided Education Provided To: Patient Education Mode/Type: Demonstration;Explanation /Discussion;Performance Response to Education/Teach Back: States/Identifies;Return Demonstration TREATMENT: Evaluation Evaluation Self-Alf Management: 1: Safety instruction given throughout session. [...] this report indicates the ability of the coach tour driver to operate a motor vehicle on this date only. Due to the complex nature of the safe operation of a motor vehicle, and considering the demands of integrating changing environmental conditions, and visual, cognitive, and physical skills, successful completion of this program is not a guarantee of safe driving in the future. ASSESSMENT OF INSTRUMENTAL ADL AND COMMUNITY MOBILITY: Rhoda Hensley presents with the diagnosis of SAH, intracranial [...] Planned: 1 Patient to be see for Cable Maker rehab evaluation;Drivers training;Patient/Family/C aregiver Education PLAN FOR NEXT VISIT: on the road session Patient demonstrates good understanding of plan of care and treatment. The above goals and plan of care were discussed and agreed upon by patient/family. Billing: [place]: Evaluation - Low Complexity ( [id number]) Self Care / Home Management (55968): 1:1 time: 45 minutes (3 units: 38-52 mins) Community/Work Reintegration (87653): 1:1 time: 15 minutes (1 unit: 8-22 mins) Total time: 1 hour 45 minutes Rosenda Knight OTR/Tory Certified Cable Maker Horticulture Superintendent [facility] ([place] ) ----- RHODA HENSLEY ([id number]) 1970 M Date Time Provider Department 07/25/19 10:00 AM FITO MAYA During your visit today, we recorded the following information about you: Pulse Respiration Blood pressure Weight 70/minute 12/minute 134/78 83.9 kg Height 1.778 m Fito Maya MD 07/25/2019 6:28 PM Signed [facility] Neurological [facility] EPILEPSY CLINIC NOTE - INITIAL VISIT CHIEF [...] seizure was about 20 years ago, in [facility], about 4 days without EtOH; he was drinking daily at that time. There were two more seizures, both in setting of alcohol withdrawal. The last was about 8-9 years ago. He was hospitalized 06/01 - 06/18/2019 at [facility], transferred from [place] with traumatic SAH/SDH, skull fracture. 06/01/2019 - [...] patient's next memory was waking up at [facility] two weeks later. His friend had been [...] 1. Head Trauma (Yes, 06/01/2019; fall from [facility] in 8502-8304 with minor HT and concussion); 2. BOOKS SALESPERSON Infections (No); 3. Family History of Seizures (No); 4. Developmental Delay (No); 5. Febrile Seizures (No); 6. BOOKS SALESPERSON Tumors (No); 7. BOOKS SALESPERSON Vascular Disease (Yes, traumatic SAH/SDH 05/2019); 8. [...] [place] new PCP first visit is 08/11 ([facility]) PAST SURGICAL HISTORY PAST SURGICAL [...] Sep 29 x3wks - Detoxed @ 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 He quit due to pay issues with last employer. 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 NEUROLOGICAL EXAM: Psychomotor slowing. Turns to friend to answer questions. Speech clear. Follows commands. Pupils equal and reactive. Visual mitchell full. EOMs intact. No pronator drift. No dysmetria. Gait steady including tandem. No Romberg sign. DATA Prior EEG results were reviewed. -EEG (10/27/2011, [facility]): normal Prior MRI results were reviewed. -MRI(10/26/2011, [facility]): Mild cerebellar involutional changes with mild enlargement of the superior cerebellar cistern. Minimal FLAIR hyperintensities bilateral white matter, nonspecific. -CT brain (06/01/2019, [place]): Acute left temporal occipital region subdural hematoma [...] cannot be excluded. -CT brain wo (07/04/2019, [place] [facility]): Interval improvement in the left temporal [...] with the plan as outlined above. Fito Maya MD cc: Chavez Bennett MD [facility] Neurosurgery Referring Provider: SAM DUMONT (PHOTOGRAPHY TEACHER.[facility]) [[id number]] Allergies As of Date: 07/25/2019 Noted Allergy Reaction MORPHINE 06/03/2019 1 - Mental Status Change Comments: Patient's contact reports nightmares VICODIN (HYDROCODONE-ACETAMINOPHE *11/16/2009 1 - Mental Status Change Comments: States has bad nightmares Date Reviewed: 07/25/2019 Reviewed by: Sangeeta ([facility]) Louie - Fully Assessed Reason for Visit: [...] hematoma (HCC) [S06.5X9A] 06/01/2019 DTs (delirium tremens) ([facility]) [F10.231] 06/02/2019 06/18/2019 SAH (subarachnoid hemorrhage) ([facility]) [I60.9] 06/02/2019 Closed fracture of one rib [...] Discontinued by Patient Encounter Status:Closed by FITO MAYA MD on 07/25/19 [facility] PROGRESSon 07-25-2019 PROGRESS HNO ID: [id number] Author: Fito Maya Service: ? Author Type: Physician Type: Progress Notes Filed: 07/25/2019 6:28 PM Note Text: [facility] Neurological [facility] EPILEPSY CLINIC NOTE - INITIAL VISIT CHIEF [...] seizure was about 20 years ago, in [facility] [place] [facility], about 4 days without EtOH; he was drinking daily at that time. There were two more seizures, both in setting of alcohol withdrawal. The last was about 8-9 years ago. He was hospitalized 06/01 - 06/18/2019 at [facility], transferred from [facility] with traumatic SAH/SDH, skull fracture. [...] patient's next memory was waking up at [facility] two weeks later. His friend had been [...] 1. Head Trauma (Yes, 06/01/2019; fall from [facility] in 6899-8701 with minor HT and concussion); 2. BOOKS SALESPERSON Infections (No); 3. Family History of Seizures (No); 4. Developmental Delay (No); 5. Febrile Seizures (No); 6. BOOKS SALESPERSON Tumors (No); 7. BOOKS SALESPERSON Vascular Disease (Yes, traumatic SAH/SDH 05/2019); 8. [...] [place] new PCP first visit is 08/11 ([facility]) PAST SURGICAL HISTORY PAST SURGICAL [...] Sep 29 x3wks - Detoxed @ 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 He quit due to pay issues with last employer. 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 NEUROLOGICAL EXAM: Psychomotor slowing. Turns to friend to answer questions. Speech clear. Follows commands. Pupils equal and reactive. Visual mitchell full. EOMs intact. No pronator drift. No dysmetria. Gait steady including tandem. No Romberg sign. DATA Prior EEG results were reviewed. -EEG (10/27/2011, [facility]): normal Prior MRI results were reviewed. -MRI(10/26/2011, [facility]): Mild cerebellar involutional changes with mild enlargement of the superior cerebellar cistern. Minimal FLAIR hyperintensities bilateral white matter, nonspecific. -CT brain (06/01/2019, [place]): Acute left temporal occipital region subdural hematoma [...] cannot be excluded. -CT brain wo (07/04/2019, [facility]): Interval improvement in the left temporal [...] with the plan as outlined above. Fito Maya MD cc: Chavez Bennett MD [facility] Neurosurgery [facility] CNOVon 07-04-2019 CNOV Office Visit ([place] ) ----- RHODA HENSLEY ([id number]) 1970 M Date Time Provider Department 07/04/19 9:15 AM CHAVEZ BENNETT During your visit today, we recorded the following information about you: Pulse Respiration Blood pressure Weight 100/minute 16/minute 111/77 80.7 kg Height 1.778 m Chavez Bennett MD 07/04/2019 11:28 AM Signed NEUROSURGERY FOLLOW UP OFFICE NOTE Chavez Bennett MD Date of visit: July 04, 2019 Patient Name: Mr.William Hensley Date of : 1970 Current Age: [age] year old Sex: male MRN/E# [id number] Last Office Visit: N/A: Hospital Follow Up DIAGNOSIS: Traumatic left temporal IPH/SAH/SDH; left parietal bone fracture Chief Complaint: Patient presents with: New Patient Evaluation: Hospital discharge SUBJECTIVE: Rhoda Hensley is a 49 year old left-handed male presenting with friend, Sahil. Mr. Hensley is here for hospital follow up. He was admitted to [facility] from 06/01/2019 to 06/18/2019, at which time [...] returning to work. 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 I advised him that he is not released for driving today. I am sending a referral to occupational therapy to perform a driving evaluation and evaluation of visual-spatial abilities. In addition, I am sending a referral to neurology to determine his hist of seizures and assess for need of fpc antiepileptic medications. - CT BRAIN WO IVCON; Future - CONSULT TO RIDING COACH; Future 2. Ruptured tympanic membrane, left As above - CONSULT TO ENT; Future Chavez Bennett MD This note was partially generated using Buzz360 voice recognition system, and there may be some incorrect words, spellings, and punctuation that were not noted in checking the note before saving. Referring Provider: CHAVEZ BENNETT [[id number]] Allergies As of Date: 07/04/2019 Noted Allergy Reaction MORPHINE 06/03/2019 1 - Mental Status Change Comments: Patient's contact reports nightmares VICODIN (HYDROCODONE-ACETAMINOPHE *11/16/2009 1 - Mental Status Change Comments: States has bad nightmares Date Reviewed: 07/04/2019 Reviewed by: Chavez Bennett - Fully Assessed Reason for Visit: New Patient Evaluation [154] Cmt: Hospital discharge Primary Visit Diagnosis:Ruptured tympanic membrane, left [H72.92] Other Visit Diagnoses:Intracranial hemorrhage (HCC) [I62.9] Seizure (HCC) [R56.9] Order(s):CT BRAIN WO IVCON [5734575] Order #: [id number] FUTURE CONSULT TO ENT [9007] Order #: [id number]: 1 FUTURE CONSULT TO RIDING COACH [19990828] Order #: [id number]: 1 FUTURE CONSULT TO NEUROLOGY [9018] Order #: [id number]: 1 FUTURE Prescriptions as of 07/04/2019 Sig: [...] hematoma (HCC) [S06.5X9A] 06/01/2019 DTs (delirium tremens) ([facility]) [F10.231] 06/02/2019 06/18/2019 SAH (subarachnoid hemorrhage) ([facility]) [I60.9] 06/02/2019 Closed fracture of one rib of left side [S22.32*06/02/2019 Closed fracture of vault of skull ([facility]) [S02.0X*06/02/2019 Aphasia [R47.01] 06/02/2019 06/18/2019 Malnutrition of mild degree (HCC) [E44.1] 06/05/2019 Acute respiratory failure with hypercapnia (HCC*06/07/2019 06/18/2019 Fever [R50.9] 06/13/2019 06/18/2019 Leukocytosis [D72.829] 06/13/2019 Cavitary pneumonia [J18.9, J98.4] 06/13/2019 Disposition: Return if symptoms worsen or fail to improve. Follow-up and Disposition History Recorded Encounter Status:Closed by CHAVEZ BENNETT on 07/04/[address] [facility] [address] BRAIN WO IVCONon 07-04-[address] [...] new or acute intracranial abnormality is seen. Pharmacy Delivery Driver: HUGO Transcribe Date/Time: Jul 07 2019 2:35P Dictated by : MARIZOL VANESSA MD This examination was interpreted and the report reviewed and electronically signed by: MARIZOL VANESSA MD on Jul 07 2019 2:43PM EST [facility] PROGRESSon 07-04-2019 PROGRESS HNO ID: [id number] Author: hCavez Bennett Service: ? Author Type: Physician Type: Progress Notes Filed: 07/04/2019 11:28 AM Note Text: NEUROSURGERY FOLLOW UP OFFICE NOTE Chavez Bennett MD Date of visit: July 04, 2019 Patient Name: Mr.William Hensley Date of : 1970 Current Age: [age] year old Sex: male MRN/E# [id number] Last Office Visit: N/A: Hospital Follow Up DIAGNOSIS: Traumatic left temporal IPH/SAH/SDH; left parietal bone fracture Chief Complaint: Patient presents with: New Patient Evaluation: Hospital discharge SUBJECTIVE: Rhoda Hensley is a 49 year old left-handed male presenting with friend, Sahil. Mr. Hensley is here for hospital follow up. He was admitted to [facility] from 06/01/2019 to 06/18/2019, at which time [...] returning to work. 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 I advised him that he is not released for driving today. I am sending a referral to occupational therapy to perform a driving evaluation and evaluation of visual-spatial abilities. In addition, I am sending a referral to neurology to determine his hist of seizures and assess for need of oil heaterman antiepileptic medications. - CT BRAIN WO IVCON; Future - CONSULT TO RIDING COACH; Future 2. Ruptured tympanic membrane, left As above - CONSULT TO ENT; Future Chavez Bennett MD This note was partially generated using Buzz360 voice recognition system, and there may be some incorrect words, spellings, and punctuation that were not noted in checking the note before saving. [facility] Histoplasma Agon 06-19-2019 Histoplasma Ag None detected. Normal [place] [facility] Comment on above: Result Comment: (NOT E) Reference interval: None Detected Results reported as ng/mL in 0.4 - 19.0 ng/mL range. Results above the limit of detection but below 0.4 ng/mL are reported as 'Positive, Below the Limit of Quantification'. Results above 19.0 ng/mL are reported as 'Positive, Above the Limit of Quantification'. This test was developed and its performance characteristics determined by [facility]. It has not been cleared or approved by the FDA; however, FDA clearance or approval is not currently required for clinical use. The results are not intended to be used as the sole means for clinical diagnosis or patient management decisions. Test performed by [facility], [address] [place] [address], [place] [address] Performing Laboratory: Performed By: #### P T #### [place] [address] ([facility])Arg, Vasopres.on 2018 (ADH)Arg, Vasopres. 7.6 High [facility] Comment on above: Result Comment: Refe rence range: 0.0 to 6.9 Unit: pg/mL (NOTE) INTERPRETIVE INFORMATION: Arginine Vasopressin Hormone Test developed and characteristics determined by [facility]. See Compliance Statement D: [email or web address] Performed by [facility], [address] [facility] [place] [address] [email or web address], Francisco Rainey MD, Lab. Director Performing Laboratory: Performed By: #### P T #### [facility] [address] [place], [place] [address] Aspergillus Agon 06-18-2019 Aspergillus Ag <0.50 Normal [facility] Comment on above: Result Comment: Inde x Values are Interpreted as Follows: Negative specimens <0.50 Positive specimens >=0.50 Performing Laboratory: [facility] [address] [place] [address] Performed By: #### P T #### [facility] [address] [place], [place] [address] X-G-Utfhdqfc 06-18-2019 Glucose [Mass/Vol] SEE BELOW Normal [facility] Comment on above: Result Comment: Catrachito itell Assay Negative Reference range: Negative (NOTE) INTERPRETIVE INFORMATION: (1,3)-giqq-V-lrzdbx (Fungitell) Less than 31 pg/mL ................... Negative 31-59 pg/mL .......................... Negative 60-79 pg/mL .......................... Indeterminate Greater than or equal to 80 pg/mL .... Positive The Fungitell test is indicated for presumptive diagnosis of fungal infection and should be used in conjunction with other diagnostic procedures. This test does not detect certain fungal species such as Cryptococcus, which produce very low levels of (1,3)-bnic-B-mvzjux. This test will not detect the zygomycetes, such as Absidia, Mucor, and Rhizopus, which are not known to produce (1,3)-banv-P-pibudp. In addition, the yeast phase of Blastomyces dermatitidis produces little (1,3)-xtml-A-zniapi and may not be detected by the assay. Performed by [facility], [address] [facility] [address] [email or web address], Francisco Rainey MD, Lab. Director [place] Comments <31 Unit: pg/mL Performing Laboratory: Performed By: #### P T #### [place] [address] CASE MANAGEMon 06-18-2019 CASE MANAGEM HNO ID: [id number] Author: Sayda Rand (Sw) Service: ? Author Type: Utilities And Maintenance Supervisor Type: Care Mgt Progress Note Filed: [...] appointment for patient close to home with [facility]. Patient does have HCAP and is covered 100%. Sahil will follow up with medicaid application that [employer] mailed to them. Indigent medications will be provided for patient. Patient will be transported by cab with significant other Sahil. SIGNATURE: FITZ Berman PATIENT NAME: Rhoda Hensley DATE: June 18, 2019 TIME: 10:46 AM PAGER/CONTACT #: [phone] [facility] Hemogram/Diffon 06-18-2019 Abs Immature Grans 0.14 thou/cmm High 0.00-0.05 [facility] Comment on above: Performed By: #### P T #### [place] [address] Abs Neut (ANC) 8.36 thou/cmm High 1.78-5.38 [facility] Comment on above: Performed By: #### P T #### [facility] [address] [place], [place] [address] Abs. Baso 0.11 thou/cmm High 0.01-0.08 [facility] Comment on above: Performed By: #### P T #### [facility] [address] [place], [place] [address] Abs. [place] 1.01 thou/cmm High 0.30-0.82 [facility] Comment on above: Performed By: #### P T #### [facility] [address] [place], [place] [address] Basophils/100 WBC (Bld) 0.9 % Normal [facility] Comment on above: Performed By: #### P T #### [facility] [address] [place], [place] [address] Eosinophils (Bld) [#/Vol] 0.31 thou/cmm Normal 0.04-0.54 [facility] Comment on above: Performed By: #### P T #### [facility] [address] [place], [place] [address] Eosinophils/100 WBC (Bld) 2.6 % Normal [facility] Comment on above: Performed By: #### P T #### [facility] [address] [place], [place] [address] Immature Grans 1.20 % Normal [facility] Comment on above: Performed By: #### P T #### [facility] [address] [place], [place] [address] Lymphocytes (Bld) [#/Vol] 2.14 thou/cmm Normal 0.84-2.85 [facility] Comment on above: Performed By: #### P T #### [facility] [address] [place], [place] [address] Lymphocytes/100 WBC (Bld) 17.7 % Normal [facility] Comment on above: Performed By: #### P T #### [facility] [address] [place], [place] [address] Monocytes/100 WBC (Bld) 8.4 % Normal [facility] Comment on above: Performed By: #### P T #### [facility] [address] [place] [address] Seg Neutrophil 69.2 % Normal [facility] Comment on above: Performed By: #### P T #### [facility] [address] [place] [address] Erythrocyte distribution width (RBC) [Ratio] 13.8 % Normal 11.6-14.4 [facility] Comment on above: Performed By: #### P T #### [facility] [address] [place] [address] Hematocrit (Bld) [Volume fraction] 39.5 % Low 40.1-51.0 [facility] Comment on above: Performed By: #### P T #### [facility] [address] [place] [address] Hemoglobin (Bld) [Mass/Vol] 13.2 g/dL Low 13.7-17.5 [facility] Comment on above: Performed By: #### P T #### [facility] [address] [place] [address] MCH (RBC) [Entitic mass] 31.7 pg Normal 25.7-32.2 [facility] Comment on above: Performed By: #### P T #### [facility] [address] [place] [address] MCHC (RBC) [Mass/Vol] 33.4 % Normal 32.3-36.5 [facility] Comment on above: Performed By: #### P T #### [facility] [address] [place] [address] MCV (RBC) [Entitic vol] 94.7 fL Normal 83.2-95.6 [facility] Comment on above: Performed By: #### P T #### [facility] [address] [place] [address] Platelet mean volume (Bld) [Entitic vol] 8.8 fL Normal 8.7-12.0 [facility] Comment on above: Performed By: #### P T #### [facility] [address] [place] [address] Platelets (Bld) [#/Vol] 1038 thou/cmm Critically high 141-365 [facility] Comment on above: Result Comment: Repe ated AND verified Performed By: #### P T #### [facility] [address] [place], [place] [address] RBC (Bld) [#/Vol] 4.17 mil/cmm Low 4.63-6.08 [facility] Comment on above: Performed By: #### P T #### [address] [address] RDW SD 48.2 fl High 36.1-45.8 [facility] Comment on above: Performed By: #### P T #### [facility] [address] [place], [place] [address] WBC (Bld) [#/Vol] 12.08 thou/cmm High 4.23-9.07 [facility] Comment on above: Performed By: #### P T #### [place] [address] Histoplasma Ab - CFon 2018 Histoplasma Ab - CF SEE BELOW Normal [facility] Comment on above: Result Comment: Hist o Yeast AB-CF <1:8 DLT8 Dilutions Reference Range: Negative <1:8 Histo Mycelial AB-CF <1:8 DLT8 Dilutions Reference Range: Negative <1:8 Performing Laboratory: [place] [address] [place] [address] Performed By: #### P T #### [address] [address] NURSING PROGon 06-18-2019 NURSING PROG HNO ID: [id number] Author: Sallie (Rn) GILBERTO Vincent Service: Orthopaedic Surgery Author Type: Registered Nurse Type: Nursing Progress Note Filed: 06/18/2019 10:38 AM Note Text: Patient declined influenza vaccine at this time. Normal [facility] PLAN OF CAREon 06-18-2019 PLAN OF CARE HNO ID: [id number] Author: Lilliana Woo (Pharmacist) Service: Pharmacy Author Type: Pharmacist Type: Plan of Care Filed: 06/18/2019 1:48 PM Note Text: DISCHARGE MEDICATION REVIEW BY PHARMACY Patient Name: Rhoda Hensley Account #: Data Unavailable Admission Date: 06/01/2019 Date of Contact: June 18, 2019 Time of Contact: 1:44 PM Medication list was reviewed by a Pharmacist for drug interactions or drug related problems:Yes Below is a summary of pharmacist recommendations discussed with LIP: No Recommendations at this time from Discharge Medication List. Patient was already off the floor prior to medication education. LILLIANA WOO, PHARMACIST June 18, 2019 1:44 PM [id number] Medication List START taking these medications acetaminophen [...] once daily. Notes to patient: CALL DR PUTNAM IF YOU EXPERIENCE ANY PAIN IN THE TENDONS, ESPECIALLY BEHIND YOUR ANKLES. CONTINUE taking these medications amitriptyline 100 mg tablet Commonly known as: ELAVIL Where to Get Your Medications These medications were sent to e- [facility] [place] [id number] - [address] [facility] - [phone] [id number] [place] [address] ? aspirin 81 mg chewable tablet ? cefADROxil 500 mg capsule ? levoFLOXacin 750 mg tablet You can get these medications from any pharmacy You don't need a prescription for these medications ? acetaminophen 325 mg tablet Normal [facility] PLAN OF CARE HNO ID: [id number] Author: Tammi Sanford (Parts Coordinator) Service: Pharmacy Author Type: ? Type: Plan of Care Filed: 06/18/2019 11:00 AM Note Text: SSN/SSBN ASSISTANT NAVIGATOR BEDSIDE DELIVERY SURVEY 1. Patient to use [facility] Bedside Delivery - YES Insurance Information as follows: 2. Insurance card on file - NO 3. Credit card for payment - N/A Levaquin 750 mg, only had #21 tabs in stock, pt will have a refill of 9 tabs. Duricef 500 mg Aspirin 81 mg Contact Tammi at [phone] or other bedside Tech [phone] with questions prior to discharge No copay Pharmacy Discharge Medication Service: This patient has elected to receive their discharge prescriptions through the [facility] Bedside Prescription Delivery program. The prescriptions are currently being processed. A follow-up note will be entered once the prescriptions have been filled and delivered to the patient. Please contact me with any questions or updates to the patient's discharge medications. Tammi Sanford (Parts Coordinator) DCT Contact Info: Extension [phone], or [phone] [facility] PROGRESSon 06-18-2019 PROGRESS HNO ID: [id number] Author: Kat Putnam Service: Infectious Disease Author Type: Physician Type: Progress Notes Filed: 06/18/2019 10:29 AM Note Text: Kat Putnam MD, MS, FACP, [facility] Division of Infectious Diseses [address] [place] [address] Office: [phone] INFECTIOUS DISEASE CONSULT PROGRESS NOTE SERVICE DATE: [...] q 4 H while awake - pill supervisor instant potato processing (patient-specific) 1 Each Miscell. (Med.Supl.;Non-Drugs) PRN - [...] Tests Reviewed for Today's Visit: WBC 12 Impression/Recommendation s Active Problems: Bipolar affective disorder (HCC) POA: [...] of pneumonia slower. Advised cessation. SIGNATURE: Kat Putnam MD, MS, FACP, [facility] PATIENT NAME: Rhoda Hensley DATE: June 18, 2019 TIME: 10:24 AM PAGER/CONTACT #: [phone] [facility] PROGRESS HNO ID: [id number] Author: Ciro Denney) Jesse Service: Trauma Author Type: Physician Reinforcing Steel Machine Operator Type: Progress Notes Filed: 06/18/2019 7:21 [...] 06/17/196[address] - 06/18/1965806/18/196[address] - 06/19/19 0659 Shift 2247-9695 6865-8096 8706-2481 24 Hour Total 6698-9236 4880-9393 2350-1449 24 Hour Total INTAKE PO 840 253 409 6181 PO 840 565 968 7844 Shift Total 840 799 350 1327 OUTPUT Urine 700 259 757 5560 Void (ml) 700 851 181 4438 Urine Not Saved. 1 x 1 x Shift Total 700 284 740 6894 Weight (kg) 77.3 77.3 77.3 77.3 77.3 [...] q 4 H while awake - pill supervisor instant potato processing (patient-specific) 1 Each Miscell. (Med.Supl.;Non-Drugs) PRN - [...] Soft, non-tender, no rebound or guarding EXTREMITIES: BENAVIDES, No deformities, No edema SKIN: Skin color, texture, turgor normal, No rashes or lesions ASSESSMENT AND PLAN: Active Hospital Problems Diagnosis Date Noted - Fever 06/13/2019 - Leukocytosis 06/13/2019 - Cavitary pneumonia 06/13/2019 - Acute respiratory failure with hypercapnia ([facility]) 06/07/2019 - Malnutrition of mild degree ([facility]) 06/05/2019 - DTs (delirium tremens) ([facility]) 06/02/2019 - SAH (subarachnoid hemorrhage) ([facility]) 06/02/2019 - Closed fracture of one rib of left side 06/02/2019 - Closed fracture of vault of skull ([facility]) 06/02/2019 - Aphasia 06/02/2019 - Subdural hematoma ([facility]) 06/01/2019 - Bipolar affective disorder ([facility]) 12/21/2012 Overview Note: Diagnosed in ~1989 ? [...] thrombocytosis 9. Diet: Dysphagia II/Thin liquids per METAL ENGINEERING PROCESS WORKER recommendations 10. Pain Regimen: PRN Tylenol 11. [...] - timing TBD. 2. ID - Dr. Putnam - 3 weeks SIGNATURE: Ciro Molina PA-C PATIENT NAME: Rhoda Hensley DATE: June 18, 2019 TIME: 7:18 AM Pager: see below Trauma Service Pager: For questions or concerns Sun-Sun 6a-5p please page [phone]. After 5pm and on Weekends and Holidays, please page [phone] if in ICU or [phone] if on RNF. Normal [facility] Quantiferon (Rapd TB)on 05-22 Quantiferon (Rapd TB) SEE BELOW Normal [facility] Comment on above: Result Comment: TB [...] recollecting sample with sufficient agitation. Performing Laboratory: [facility] [place] [address] [place] [address] Performed By: #### P T #### [address] [address] CASE MANAGEMon 06-17-2019 CASE MANAGEM HNO ID: [id number] Author: Sayda Rand (Sw) Service: ? Author Type: Utilities And Maintenance Supervisor Type: Care Mgt Progress Note Filed: 06/17/2019 2:17 PM Note Text: CARE MANAGEMENT PROGRESS NOTE SERVICE DATE: 06/17/2019 SERVICE TIME: 2:10 PM LOS: 16 days Spoke with Sahil. He is aware that patient will be covered 100% by [employer]. He states he will start setting up patients appointments. He will be transporting patient home. Will approve indigent medications for patient. SIGNATURE: Sayda KeyonaFITZ PATIENT NAME: Rhoda Hensley DATE: June 17, 2019 TIME: 2:08 PM PAGER/CONTACT #: [phone] [facility] CASE MANAGEM HNO ID: [id number] Author: Sayda Rand (Sw) Service: ? Author Type: Utilities And Maintenance Supervisor Type: Care Mgt Progress Note Filed: 06/17/2019 8:28 AM Note Text: CARE MANAGEMENT PROGRESS NOTE SERVICE DATE: 06/17/2019 SERVICE TIME: 8:24 AM LOS: 16 days Spoke with Chinyere from Financial counseling and she stated Sahil patients significant other called and provided financial information. SIGNATURE: Sayda Rand CARROT TIER PATIENT NAME: Rhoda Hensley DATE: June 17, 2019 TIME: 8:24 AM PAGER/CONTACT #: [phone] [facility] CASE MANAGEM HNO ID: [id number] Author: Sayda Rand (Sw) Service: ? Author Type: Utilities And Maintenance Supervisor Type: Care Mgt Progress Note Filed: 06/17/2019 8:09 AM Note Text: CARE MANAGEMENT PROGRESS NOTE SERVICE DATE: 06/17/2019 SERVICE TIME: 8:03 AM LOS: 16 days Lukas Rueda denied patient. Patent doesn't have medicaid. Sahil significant other will call for [employer] and fill out paperwork for medicaid. Will continue to work with Sahil for SNF. SIGNATURE: Sayda AgustinhnFITZ PATIENT NAME: Rhoda Hensley DATE: June 17, 2019 TIME: 8:02 AM PAGER/CONTACT #: [phone] [facility] Hemogram/Diffon 06-17-2019 Abs Immature Grans 0.16 thou/cmm High 0.00-0.05 [facility] Comment on above: Performed By: #### P T #### [facility] [address] [place] [address] Abs Neut (ANC) 7.64 thou/cmm High 1.78-5.38 [facility] Comment on above: Performed By: #### P T #### [facility] [address] [place] [address] Abs. Baso 0.14 thou/cmm High 0.01-0.08 [facility] Comment on above: Performed By: #### P T #### [facility] [address] [place] [address] Abs. [place] 1.08 thou/cmm High 0.30-0.82 [facility] Comment on above: Performed By: #### P T #### [facility] [address] [place] [address] Basophils/100 WBC (Bld) 1.2 % Normal [facility] Comment on above: Performed By: #### P T #### [facility] [address] [place] [address] Eosinophils (Bld) [#/Vol] 0.32 thou/cmm Normal 0.04-0.54 [facility] Comment on above: Performed By: #### P T #### [facility] [address] [place] [address] Eosinophils/100 WBC (Bld) 2.7 % Normal [facility] Comment on above: Performed By: #### P T #### [facility] [address] [place] [address] Erythrocyte distribution width (RBC) [Ratio] 13.7 % Normal 11.6-14.4 [facility] Comment on above: Performed By: #### P T #### [facility] [address] [place] [address] Hematocrit (Bld) [Volume fraction] 39.5 % Low 40.1-51.0 [facility] Comment on above: Performed By: #### P T #### [facility] [address] [place] [address] Hemoglobin (Bld) [Mass/Vol] 13.1 g/dL Low 13.7-17.5 [facility] Comment on above: Performed By: #### P T #### [facility] [address] [place], [place] [address] Immature Grans 1.30 % Normal [facility] Comment on above: Performed By: #### P T #### [facility] [address] [place], [place] [address] Lymphocytes (Bld) [#/Vol] 2.65 thou/cmm Normal 0.84-2.85 [facility] Comment on above: Performed By: #### P T #### [facility] [address] [place], [place] [address] Lymphocytes/100 WBC (Bld) 22.1 % Normal [facility] Comment on above: Performed By: #### P T #### [facility] [address] [place] [address] MCH (RBC) [Entitic mass] 31.6 pg Normal 25.7-32.2 [facility] Comment on above: Performed By: #### P T #### [facility] [address] [place] [address] MCHC (RBC) [Mass/Vol] 33.2 % Normal 32.3-36.5 [facility] Comment on above: Performed By: #### P T #### [facility] [address] [place], [place] [address] MCV (RBC) [Entitic vol] 95.2 fL Normal 83.2-95.6 [facility] Comment on above: Performed By: #### P T #### [facility] [address] [place] [address] Monocytes/100 WBC (Bld) 9.0 % Normal [facility] Comment on above: Performed By: #### P T #### [facility] [address] [place] [id number] Platelet mean volume (Bld) [Entitic vol] 8.6 fL Low 8.7-12.0 [facility] Comment on above: Performed By: #### P T #### [facility] [address] [place] [id number] Platelets (Bld) [#/Vol] 1117 thou/cmm Critically high 141-365 [facility] Comment on above: Result Comment: Repe ated AND verified Performed By: #### P T #### [facility] [address] [place], [place] [address] RBC (Bld) [#/Vol] 4.15 mil/cmm Low 4.63-6.08 [facility] Comment on above: Performed By: #### P T #### [facility] [address] [place], [place] [address] RDW SD 48.0 fl High 36.1-45.8 [facility] Comment on above: Performed By: #### P T #### [facility] [address] [place] [address] Seg Neutrophil 63.7 % Normal [facility] Comment on above: Performed By: #### P T #### [facility] [address] [place], [place] [address] WBC (Bld) [#/Vol] 12.00 thou/cmm High 4.23-9.07 [facility] Comment on above: Performed By: #### P T #### [facility] [address] [place] [address] PLAN OF CAREon 06-17-2019 PLAN OF CARE HNO ID: [id number] Author: Helen Peters (Psykosoft) Service: ? Author Type: ? Type: Plan of Care Filed: 06/17/2019 3:02 PM Note Text: SSN/SSBN ASSISTANT NAVIGATOR BEDSIDE DELIVERY SURVEY 1. Patient to use [facility] Bedside Delivery - YES Insurance Information as follows: 2. Insurance card on file - NO 3. Credit card for payment - N/A Patient elected to use bedside delivery. No prescriptions currently written. Please call pharmacy bedside delivery at [phone] or [phone] when patient has discharge orders and prescriptions are ready to be filled and delivered prior to discharge. Thank you. Helen Peters (Psykosoft) *indigent form received* [facility] PROGRESSon 06-17-2019 PROGRESS HNO ID: [id number] Author: Kat Putnam Service: Infectious Disease Author Type: Physician Type: Progress Notes Filed: 06/17/2019 10:16 AM Note Text: Kat Putnam MD, MS, FACP, [facility] Division of Infectious Diseses [address] [place] [address] Office: [phone] INFECTIOUS DISEASE CONSULT PROGRESS NOTE SERVICE DATE: [...] 81 mg ORAL/FEEDING TUBE DAILY - pill supervisor instant potato processing (patient-specific) 1 Each Miscell. (Med.Supl.;Non-Drugs) PRN - [...] sputum 06/06 with Enterobacter, MSSA and Pseudmonas Impression/Recommendation s Active Problems: Bipolar affective disorder (HCC) POA: Yes Assessment AND Plan: Complicates management. DTs (delirium tremens) ([facility]) POA: Yes Assessment AND Plan: Needs to stop drinking. SAH (subarachnoid hemorrhage) ([facility]) POA: Yes Assessment AND Plan: Per trauma [...] weeks when he is discharged. SIGNATURE: Kat Putnam MD, MS, FACP, [facility] PATIENT NAME: Rhoda Hensley DATE: June 17, 2019 TIME: 10:09 AM PAGER/CONTACT #: [phone] [facility] PROGRESS HNO ID: [id number] Author: Ciro Denney) Jesse Service: Trauma Author Type: Physician Reinforcing Steel Machine Operator Type: Progress Notes Filed: 06/17/2019 7:45 [...] Room Air IANDO: Date 06/16/19 07 - 06/17/19 0659 06/17/19699 - 06/18/19 0659 Shift 4121-7401 0597-1083 4309-1531 24 Hour Total 9899-7098 0344-1130 5088-8037 24 Hour Total INTAKE PO 240 160 158 5765 PO 240 971 236 4777 Shift Total 240 932 474 1719 OUTPUT Urine 250 711 080 7160 Void (ml) 250 905 428 7929 Shift Total 250 502 255 4807 Weight (kg) 77.3 77.3 77.3 77.3 77.3 [...] 81 mg ORAL/FEEDING TUBE DAILY - pill supervisor instant potato processing (patient-specific) 1 Each Miscell. (Med.Supl.;Non-Drugs) PRN - [...] Soft, non-tender, no rebound or guarding EXTREMITIES: BENAVIDES, No deformities, No edema SKIN: Skin color, texture, turgor normal, No rashes or lesions ASSESSMENT AND PLAN: Active Hospital Problems Diagnosis Date Noted - Fever 06/13/2019 - Leukocytosis 06/13/2019 - Cavitary pneumonia 06/13/2019 - Acute respiratory failure with hypercapnia ([facility]) 06/07/2019 - Malnutrition of mild degree ([facility]) 06/05/2019 - DTs (delirium tremens) ([facility]) 06/02/2019 - SAH (subarachnoid hemorrhage) ([facility]) 06/02/2019 - Closed fracture of one rib of left side 06/02/2019 - Closed fracture of vault of skull ([facility]) 06/02/2019 - Aphasia 06/02/2019 - Subdural hematoma ([facility]) 06/01/2019 - Bipolar affective disorder ([facility]) 12/21/2012 Overview Note: Diagnosed in ~1989 ? [...] toilet 9. Diet: Dysphagia II/Thin liquids per METAL ENGINEERING PROCESS WORKER recommendations 10. Pain Regimen: PRN Tylenol 11. [...] SIGNATURE: Ciro Molina PA-C PATIENT NAME: Rhoda Hensley DATE: June 17, 2019 TIME: 7:37 AM Pager: see below Trauma Service Pager: For questions or concerns Mon-Fri 6a-5p please page [phone]. After 5pm and on Weekends and Holidays, please page [phone] if in ICU or [phone] if on RNF. [facility] THERAPY NTon 06-17-2019 THERAPY NT HNO ID: [id number] Author: Sarahy (Ccc-Icing And Glaze Maker) MANUEL Roblero/REDDY Service: Speech/Swallow Author Type: Speech Language Pathologist Type: Therapy (PT/OT/Speech/Resp) Filed: 06/17/2019 2:56 PM Note Text: Speech Therapy Speech Evaluation, Treatment SERVICE DATE: 06/17/2019 SERVICE TIME: 1105 to 1135 ROOM: [id number] Nursing Recommendations: See swallow guide posted in patients room;Reinforce use of swallowing strategies;Reinforce use of communication strategies Diet Recommendations: Regular Consistency; Thin Liquids IDDSI Level 0 Swallowing Precautions Recommendations: Alternate bites and sips; Feed / Eat at a slow rate; Sit upright 90 degrees for all PO; Small Bite/Sip Results and Recommendations Discussed With: Patient;Nurse, French Binding Folder, Trauma PA Recommended Discharge Disposition: Acute Rehab [...] need Outpatient Speech Therapy and Occupational Therapy. METAL ENGINEERING PROCESS WORKER discussed with Trauma PA. Justification For Post [...] Session -Patient alert, up in bed on METAL ENGINEERING PROCESS WORKER arrival, agreeable to therapy -Patient reported having [...] Attention: WFL - Insight: WFL - Pragmatics: [facility] Cognitive Linguistic Quick Test (CLQT) Results Subtest Score Personal Facts 5/8 Symbol Cancellation 12 Confrontation naming 6/10 Clock Drawing 08/01 Story Retelling 1/10 Symbol Trails 9/10 Generative Naming 1/9 Design Memory 6/6 Mazes 7/8 Design Generation 13 Cognitive Domain Score (severity rating) Attention 163/215 [...] 3 Current admission Treatment Interventions: Dysphagia Management;Aphasia Management;Cognitive-Ling uistic Management Plan of Care Developed with: Patient TREATMENT INTERVENTIONS: Therapy Diagnosis: Dysphagia, oropharyngeal phase;Aphasia;Unspecified symbolic dysfunctions Interventions Provided: Speech Language Eval (76338);Dysphagia Therapy (07006) $ Speech Language Eval (22256) Billed Units: 1 unit $ Dysphagia Therapy (64862) Billed Units: 1 unit Skilled Interventions: Educated [...] evaluation/treatment. SIGNATURE: REDDY Patricia PATIENT NAME: Rhoda Hensley DATE: June 17, 2019 TIME: 12:03 PM I reviewed and agree with the documentation corresponding to this therapy visit. Evaluation and/or treatment directly supervised by licensed Speech Therapist Sarahy Roblero CCC-METAL ENGINEERING PROCESS WORKER. [facility] THERAPY NT HNO ID: [id number] Author: Cleve Estrada) Sheldon Service: Physical Therapy Author Type: Procurement Accountant Type: Therapy (PT/OT/Speech/Resp) Filed: 06/17/2019 2:31 PM Note Text: ----- Attestation signed by Waldo Esqueda at 06/17/2019 3:48 PM I reviewed and agree with the documentation corresponding to this therapy visit. SIGNATURE: Waldo Esqueda, MARY DATE: June 17, 2019 TIME: 3:47 PM ----- Physical Therapy Treatment SERVICE DATE: 06/17/2019 SERVICE TIME: 925 to 950 ROOM: [place] [address] Recommended Discharge Disposition: Acute Rehab Recommended Discharge [...] cues) Transfer sit to/from stand with: Supervision(Pt deloris safe technique 100% of time. Reaching for [...] with safety implications) Interventions Provided: Therapeutic Exercise (20553);Therapeutic Activity (67896);Gait Training (34672) Therapeutic Exercise (50749) Treatment Minutes: 13 1 unit Skilled Intervention(s): [...] to fall current fall risk. Therapeutic Activity (52953) Treatment Minutes: 3 0 units Skilled Intervention(s): [...] edge of bed before standing. Gait Training (15258) Treatment Minutes: 9 1 unit Skilled Intervention(s): [...] evaluation/treatment. SIGNATURE: ROXANNA Redd PATIENT NAME: Rhoda Hensley DATE: June 17, 2019 TIME: 10:07 AM I reviewed and agree with the documentation corresponding to this therapy visit. I attest that I was present, not working on other tasks, and directing the student during this visit. I have reviewed and agree with the above documentation of this student. Cleve Chung PTA SIGNATURE: Cleve Chung PTA DATE: June 17, 2019 TIME: 11:37 AM [facility] CASE MANAGEMon 06-16-2019 CASE MANAGEM HNO ID: [id number] Author: Sayda Rand (Sw) Service: ? Author Type: Utilities And Maintenance Supervisor Type: Care Mgt Progress Note Filed: 06/16/2019 12:14 PM Note Text: CARE MANAGEMENT PROGRESS NOTE SERVICE DATE: 06/16/2019 SERVICE TIME: 12:13 PM LOS: 15 days Spoke with Sahil patient friend regarding guardianship. Educated on process. Sahil will start process. SIGNATURE: FITZ Berman PATIENT NAME: Rhoda Hensley DATE: June 16, 2019 TIME: 12:13 PM PAGER/CONTACT #: [phone] [facility] CASE MANAGEM HNO ID: [id number] Author: Sayda Rand (Sw) Service: ? Author Type: Utilities And Maintenance Supervisor Type: Care Mgt Progress Note Filed: 06/16/2019 10:45 AM Note Text: CARE MANAGEMENT PROGRESS NOTE SERVICE DATE: 06/16/2019 SERVICE TIME: 10:44 AM LOS: 15 days Called patient friend Sahil and left a message requesting a call back. SIGNATURE: FITZ Berman PATIENT NAME: Rhoda Hensley DATE: June 16, 2019 TIME: 10:43 AM PAGER/CONTACT #: [phone] [facility] Creatinine Clearanceon 06-16 Creatinine [Mass/Vol] 0.40 mg/dL Low 0.67-1.17 [facility] Comment on above: Performed By: #### P T #### [place] [address] Creatinine Clearance 203.0 mL/min/1.73m2 High 62.0-1 45.0 [facility] Comment on above: Performed By: #### P T #### [place] [address] Flow Per Minute 1.65 Normal [facility] Comment on above: Performed By: #### P T #### [place] [address] Pt. Height 68 IN/CM Normal [facility] Comment on above: Performed By: #### P T #### [place] [address] Surface Area 1.93 Normal [facility] Comment on above: Performed By: #### P T #### [place] [address] Total No. Minutes 1440 Normal [facility] Comment on above: Performed By: #### P T #### [place] [address] Hemogram/Diffon 06-16-2019 Abs Immature Grans 0.18 thou/cmm High 0.00-0.05 [facility] Comment on above: Performed By: #### P T #### [place] [address] Abs Neut (ANC) 10.02 thou/cmm High 1.78-5.38 [facility] Comment on above: Performed By: #### P T #### [facility] [address] [place] [address] Abs. Baso 0.12 thou/cmm High 0.01-0.08 [facility] Comment on above: Performed By: #### P T #### [facility] [address] [place] [address] Abs. [place] 1.02 thou/cmm High 0.30-0.82 [facility] Comment on above: Performed By: #### P T #### [facility] [address] [place] [address] Basophils/100 WBC (Bld) 0.9 % Normal [facility] Comment on above: Performed By: #### P T #### [facility] [address] [place] [address] Eosinophils (Bld) [#/Vol] 0.35 thou/cmm Normal 0.04-0.54 [facility] Comment on above: Performed By: #### P T #### [facility] [address] [place] [address] Eosinophils/100 WBC (Bld) 2.5 % Normal [facility] Comment on above: Performed By: #### P T #### [facility] [address] [place] [address] Erythrocyte distribution width (RBC) [Ratio] 13.7 % Normal 11.6-14.4 [facility] Comment on above: Performed By: #### P T #### [facility] [address] [place] [address] Hematocrit (Bld) [Volume fraction] 41.0 % Normal 40.1-51.0 [facility] Comment on above: Performed By: #### P T #### [facility] [address] [place] [address] Hemoglobin (Bld) [Mass/Vol] 13.8 g/dL Normal 13.7-17.5 [facility] Comment on above: Performed By: #### P T #### [facility] [address] [place] [address] Immature Grans 1.30 % Normal [facility] Comment on above: Performed By: #### P T #### [facility] [address] [place], [place] [address] Lymphocytes (Bld) [#/Vol] 2.15 thou/cmm Normal 0.84-2.85 [facility] Comment on above: Performed By: #### P T #### [facility] [address] [place], [place] [address] Lymphocytes/100 WBC (Bld) 15.5 % Normal [facility] Comment on above: Performed By: #### P T #### [facility] [address] [place], [place] [address] MCH (RBC) [Entitic mass] 32.1 pg Normal 25.7-32.2 [facility] Comment on above: Performed By: #### P T #### [address] [address] MCHC (RBC) [Mass/Vol] 33.7 % Normal 32.3-36.5 [facility] Comment on above: Performed By: #### P T #### [facility] [address] [place], [place] [address] MCV (RBC) [Entitic vol] 95.3 fL Normal 83.2-95.6 [facility] Comment on above: Performed By: #### P T #### [address] [address] Monocytes/100 WBC (Bld) 7.4 % Normal [facility] Comment on above: Performed By: #### P T #### [facility] [address] [place], [place] [address] Platelet mean volume (Bld) [Entitic vol] 8.6 fL Low 8.7-12.0 [facility] Comment on above: Performed By: #### P T #### [facility] [address] [place], [place] [address] Platelets (Bld) [#/Vol] 1092 thou/cmm Critically high 141-365 [facility] Comment on above: Performed By: #### P T #### [address] [address] RBC (Bld) [#/Vol] 4.30 mil/cmm Low 4.63-6.08 [facility] Comment on above: Performed By: #### P T #### [facility] [address] [place] [address] RDW SD 48.2 fl High 36.1-45.8 [facility] Comment on above: Performed By: #### P T #### [place] [address] Seg Neutrophil 72.4 % Normal [facility] Comment on above: Performed By: #### P T #### [place] [address] WBC (Bld) [#/Vol] 13.84 thou/cmm High 4.23-9.07 [facility] Comment on above: Performed By: #### P T #### [place] [address] MDRD GFRon 06-16-2019 GFR/1.73 sq M predicted among non-blacks MDRD (S/P/Bld) [Vol rate/Area] mL/min/{1.73_m2} Normal >60mL/min/1. 73m2 [facility] Comment on above: Result Comment: If t he patient is , multiply the result by 1.210. Performed By: #### G FR #### [place] [address] NURSING PROGon 06-16-2019 NURSING PROG HNO ID: [id number] Author: Anastasiya (Rn) GILBERTO Marques Service: Nursing Author Type: Registered Nurse Type: Nursing Progress Note Filed: 06/16/2019 12:19 PM Note Text: Upon checking on pt while in bathroom nurse opened door and smelled cigarette smoke. Instructed pt that its against hospital policy to smoke on hospital grounds. Engineering Project Designer and cigarette given to nurse upon request of pt and remaining cigarettes taken out of pts belonging bag (loose in plastic baggie) and locked in pts chart box along with facial operator. Explained to pt will get order for nicotine patch and was agreeable. Normal [facility] NUTRITIONon 06-16-2019 NUTRITION HNO ID: [id number] Author: Kamala Bill) DILLON Sommers Service: Nutrition Therapy Author Type: Registered Dietitian [...] 1448 Peripherally Inserted (PICC) Left Arm 5.0 Cook Islander (Active) Height: 172.7 cm (5' 7.99) Admission [...] 81 mg ORAL/FEEDING TUBE DAILY - pill supervisor instant potato processing (patient-specific) 1 Each Miscell. (Med.Supl.;Non-Drugs) PRN - NaCl 0.9% 10 mL 10 mL INTRAVENOUS q 12 H - NaCl 0.9% 20 mL 20 mL INTRAVENOUS PRN - enoxaparin 30 mg injection (LOVENOX) 30 mg SUBCUTANEOUS BID Date 06/15/19 1500 - 06/16/19 0659 06/16/19 0700 - 06/17/19 0659 Shift 0709-1895 5415-6856 24 Hour Total 1339-1789 1334-6170 6032-2523 24 Hour Total INTAKE PO 360 360 [...] Kamala Sommers RD, LD PATIENT NAME: Rhoda Hensley DATE: June 16, 2019 TIME: 3:32 PM PAGER: [phone] [facility] PROGRESSon 06-16-2019 PROGRESS HNO ID: [id number] Author: Kat Putnam Service: Infectious Disease Author Type: Physician Type: Progress Notes Filed: 06/16/2019 1:05 PM Note Text: Kat Putnam MD, MS, FACP, FIDSA Division of Infectious Diseses [address] [facility] [address] [place] [address] Office: [phone] INFECTIOUS DISEASE CONSULT PROGRESS NOTE SERVICE DATE: [...] (LEVAQUIN) 750 mg INTRAVENOUS DAILY - pill supervisor instant potato processing (patient-specific) 1 Each Miscell. (Med.Supl.;Non-Drugs) PRN - [...] 13, 06/12 fungal labs pending, HIV nonreactive Impression/Recommendation s Active Problems: Bipolar affective disorder (HCC) POA: Yes Assessment AND Plan: Complicates management. DTs (delirium tremens) ([facility]) POA: Yes Assessment AND Plan: Advised cessation of alcohol. SAH (subarachnoid hemorrhage) ([facility]) POA: Yes Assessment AND Plan: Per trauma service. Closed fracture of vault of skull ([facility]) POA: Yes Assessment AND Plan: Per trauma [...] DC. On seroquel, watch QTc. SIGNATURE: Kat Putnam MD, MS, FACP, FIDSA PATIENT NAME: Rhoda Hensley DATE: June 16, 2019 TIME: 12:55 PM PAGER/CONTACT #: [phone] [facility] PROGRESS HNO ID: [id number] Author: Ciro Denney) Jesse Service: Trauma Author Type: Physician Reinforcing Steel Machine Operator Type: Progress Notes Filed: 06/16/2019 9:58 AM Note Text: Trauma Surgery Progress Note SERVICE DATE: 06/16/2019 SUBJECTIVE: NAEON. Patient very pleasant this morning. Currently denies pain. Knows that he is in [place] but cannot state facility named, but can state his full name and date of . Tells me that it is Sunday, but when asked the year he states [place]. No other acute concerns at this time. OBJECTIVE: Vitals: Temp (24hrs), Av.6 ?C (97.9 ?F), Min:36.2 ?C (97.2 ?F), Max:36.9 ?C (98.4 ?F) BP 130/81 Pulse 104 Temp 36.4 ?C (97.5 ?F) (Oral) Resp 16 Ht 172.7 cm (5' 7.99) Wt 77.3 kg (170 lb 6.7 oz) SpO2 97% BMI 25.92 kg/m? O2 Therapy: Room Air IANDO: Date 06/15/19 0700 - 06/16/19 0659 06/16/19 0700 - 06/17/19 0659 Shift 0900-5262 7798-8049 5924-5308 24 Hour Total 7416-0460 6516-4189 5954-1891 24 Hour Total INTAKE PO 360 360 [...] (LEVAQUIN) 750 mg INTRAVENOUS DAILY - pill supervisor instant potato processing (patient-specific) 1 Each Miscell. (Med.Supl.;Non-Drugs) PRN - [...] Soft, non-tender, no rebound or guarding EXTREMITIES: BENAVIDES, No deformities, No edema SKIN: Skin color, texture, turgor normal, No rashes or lesions ASSESSMENT AND PLAN: Active Hospital Problems Diagnosis Date Noted - Fever 06/13/2019 - Leukocytosis 06/13/2019 - Cavitary pneumonia 06/13/2019 - Acute respiratory failure with hypercapnia ([facility]) 06/07/2019 - Malnutrition of mild degree ([facility]) 06/05/2019 - DTs (delirium tremens) ([facility]) 06/02/2019 - SAH (subarachnoid hemorrhage) ([facility]) 06/02/2019 - Closed fracture of one rib of left side 06/02/2019 - Closed fracture of vault of skull ([facility]) 06/02/2019 - Aphasia 06/02/2019 - Subdural hematoma ([facility]) 06/01/2019 - Bipolar affective disorder (HCC) 12/21/2012 Overview Note: Diagnosed in ~1989 ? [...] toilet 9. Diet: Dysphagia II/Thin liquids per METAL ENGINEERING PROCESS WORKER recommendations 10. Pain Regimen: PRN Tylenol; OxyIR [...] SIGNATURE: Ciro Molina PA-C PATIENT NAME: Rhoda Hensley DATE: June 16, 2019 TIME: 9:33 AM Pager: see below Trauma Service Pager: For questions or concerns Mon-Fri 6a-5p please page [phone]. After 5pm and on Weekends and Holidays, please page [phone] if in ICU or [phone] if on RNF. Normal [facility] THERAPY NTon 06-16-2019 THERAPY NT HNO ID: [id number] Author: Waldo (PtKim Esqueda Service: Physical Therapy Author Type: Physical Therapist Type: Therapy (PT/OT/Speech/Resp) Filed: 06/16/2019 10:49 AM Note Text: Physical Therapy Evaluation SERVICE DATE: 06/16/2019 SERVICE TIME: 0945 to 1015 ROOM: [id number] Recommended Discharge Disposition: Acute Rehab Recommended Discharge [...] with safety implications) Interventions Provided: Evaluation;Therapeutic Activity (47058) $ Evaluation-Moderate (68629) Billed Units: 1 unit History and examination of body systems see assessment section above. This patient?s clinical presentation is evolving. The patient required a moderate complexity evaluation. Therapeutic Activity (19037) Treatment Minutes: 8 1 unit Skilled Intervention(s): [...] reinforced with a physical activity (walking in sheets and finding his way back to his [...] SIGNATURE: Waldo Esqueda PT PATIENT NAME: Rhoda Hensley DATE: June 16, 2019 TIME: 10:41 AM Normal [facility] THERAPY NT HNO ID: [id number] Author: Kaykay Lora/Diane Pimentel OT Service: Occupational Therapy Author Type: Occupational Therapist Type: Therapy (PT/OT/Speech/Resp) Filed: 06/16/2019 10:26 AM Note Text: Occupational Therapy Evaluation SERVICE DATE: 06/16/2019 SERVICE TIME: 0830 to 0848 ROOM: [place] [address] Recommended Discharge Disposition: Acute Rehab Recommended Discharge [...] post-acute setting;Good premorbid functional status;Living the community premorbidly;Motivated;Erasmo ling to participate Anticipated Discharge Needs: Supervision at [...] and Awareness Interventions Provided: Evaluation $ Evaluation-Moderate (67913) Billed Units: 1 unit OT Evaluation Moderate [...] Memory Deficits: Short Term Executive Function Deficits: Categorization;Sequencing ;Judgement;Insight to Deficits;Problem Solving;Motor Planning;Safety Awareness Categorization Deficit: [...] complete details for this therapy evaluation/treatment. SIGNATURE: Veronica Barragan S/OT PATIENT NAME: Rhoda Hensley DATE: June 16, 2019 TIME: 9:09 AM Normal [facility] Basic Panelon 06-15-2019 Creatinine [Mass/Vol] 0.39 mg/dL Low 0.67-1.17 [facility] Comment on above: Performed By: #### P T #### [facility] [address] [place], [place] [address] Urea nitrogen [Mass/Vol] 10 mg/dL Normal 7-18 [facility] Comment on above: Performed By: #### P T #### [address] [address] Anion gap [Moles/Vol] 10 mmol/L Normal 8-16 [facility] Comment on above: Performed By: #### P T #### [address] [address] Calcium [Mass/Vol] 9.2 mg/dL Normal 8.5-10.1 [facility] Comment on above: Performed By: #### P T #### [address] [address] CO2 [Moles/Vol] 28 mmol/L Normal 21-32 [facility] Comment on above: Performed By: #### P T #### [facility] [address] [place], [place] [address] Glucose [Mass/Vol] 101 mg/dL High 70-99 [facility] Comment on above: Performed By: #### P T #### [facility] [address] [place], [place] [address] Chloride [Moles/Vol] 101 mmol/L Normal 98-107 [facility] Comment on above: Performed By: #### P T #### [address] [address] Potassium [Moles/Vol] 3.5 mmol/L Normal 3.5-5.1 [facility] Comment on above: Performed By: #### P T #### [facility] [address] [place] [address] Sodium [Moles/Vol] 135 mmol/L Low 136-145 [facility] Comment on above: Performed By: #### P T #### [place] [address] Hemogram/Diffon 06-15-2019 Abs Immature Grans 0.18 thou/cmm High 0.00-0.05 [facility] Comment on above: Performed By: #### P T #### [place] [address] Abs Neut (ANC) 9.90 thou/cmm High 1.78-5.38 [facility] Comment on above: Performed By: #### P T #### [place] [address] Abs. Baso 0.11 thou/cmm High 0.01-0.08 [facility] Comment on above: Performed By: #### P T #### [place] [address] Abs. [place] 1.09 thou/cmm High 0.30-0.82 [facility] Comment on above: Performed By: #### P T #### [place] [address] Basophils/100 WBC (Bld) 0.8 % Normal [facility] Comment on above: Performed By: #### P T #### [facility] [address] [place] [address] Eosinophils (Bld) [#/Vol] 0.41 thou/cmm Normal 0.04-0.54 [facility] Comment on above: Performed By: #### P T #### [place] [address] Eosinophils/100 WBC (Bld) 3.0 % Normal [facility] Comment on above: Performed By: #### P T #### [facility] [address] [place] [address] Erythrocyte distribution width (RBC) [Ratio] 13.9 % Normal 11.6-14.4 [facility] Comment on above: Performed By: #### P T #### [facility] [address] [place] [address] Hematocrit (Bld) [Volume fraction] 40.7 % Normal 40.1-51.0 [facility] Comment on above: Performed By: #### P T #### [facility] [address] [place] [address] Hemoglobin (Bld) [Mass/Vol] 13.5 g/dL Low 13.7-17.5 [facility] Comment on above: Performed By: #### P T #### [facility] [address] [place] [address] Immature Grans 1.30 % Normal [facility] Comment on above: Performed By: #### P T #### [facility] [address] [place] [address] Lymphocytes (Bld) [#/Vol] 1.95 thou/cmm Normal 0.84-2.85 [facility] Comment on above: Performed By: #### P T #### [facility] [address] [place] [address] Lymphocytes/100 WBC (Bld) 14.3 % Normal [facility] Comment on above: Performed By: #### P T #### [facility] [address] [place] [address] MCH (RBC) [Entitic mass] 32.0 pg Normal 25.7-32.2 [facility] Comment on above: Performed By: #### P T #### [facility] [address] [place] [address] MCHC (RBC) [Mass/Vol] 33.2 % Normal 32.3-36.5 [facility] Comment on above: Performed By: #### P T #### [place] [address] MCV (RBC) [Entitic vol] 96.4 fL High 83.2-95.6 [facility] Comment on above: Performed By: #### P T #### [facility] [address] [place], [place] [address] Monocytes/100 WBC (Bld) 8.0 % Normal [facility] Comment on above: Performed By: #### P T #### [facility] [address] [place], [place] [address] Platelet mean volume (Bld) [Entitic vol] 8.8 fL Normal 8.7-12.0 [facility] Comment on above: Performed By: #### P T #### [facility] [address] [place] [address] Platelets (Bld) [#/Vol] 1105 thou/cmm Critically high 141-365 [facility] Comment on above: Result Comment: Repe ated AND verified Performed By: #### P T #### [place] [address] RBC (Bld) [#/Vol] 4.22 mil/cmm Low 4.63-6.08 [facility] Comment on above: Performed By: #### P T #### [facility] [address] [place] [address] RDW SD 49.3 fl High 36.1-45.8 [facility] Comment on above: Performed By: #### P T #### [address] [address] Seg Neutrophil 72.6 % Normal [facility] Comment on above: Performed By: #### P T #### [facility] [address] [place] [address] WBC (Bld) [#/Vol] 13.63 thou/cmm High 4.23-9.07 [facility] Comment on above: Performed By: #### P T #### [place] [address] NURSING PROGon 06-15-2019 NURSING PROG HNO ID: [id number] Author: Lindsey LucasRn) GILBERTO Kwong Service: ? Author Type: Registered Nurse Type: Nursing Progress Note Filed: 06/15/2019 7:34 AM Note Text: Sepsis alert rec'd for WBC 13.63 and [address] Jack notified and aware. Normal [facility] PROGRESSon 06-15-2019 PROGRESS HNO ID: [id number] Author: Lilliana Beltran Service: General Surgery Author [...] Therapy: Room Air IANDO: Date 06/14/196[address] - 06/15/1965806/15/19699 - 06/16/19 0659 Shift 3364-4321 4131-7989 2529-8601 24 Hour Total 4526-0788 7933-6023 5730-9748 24 Hour Total INTAKE PO 140 199 4731 PO 770 406 7653 Gastric Tube 150 150 Tube Feed Intake (I/O) ([REMOVED] GI Feed 06/02/19 1446 Gastric Right Naris 12 Fr 06/14/19 1000) 150 150 Shift Total 150 318 538 6821 OUTPUT Urine 850 850 Void (ml) 850 [...] (TYLENOL) 975 mg ORAL QID - pill supervisor instant potato processing (patient-specific) 1 Each Miscell. (Med.Supl.;Non-Drugs) PRN - [...] Soft, non-tender, no rebound or guarding EXTREMITIES: BENAVIDES, No deformities, No edema SKIN: Skin color, texture, turgor normal, No rashes or lesions ASSESSMENT AND PLAN: Active Hospital Problems Diagnosis Date Noted - Fever 06/13/2019 - Leukocytosis 06/13/2019 - Cavitary pneumonia 06/13/2019 - Acute respiratory failure with hypercapnia ([facility]) 06/07/2019 - Malnutrition of mild degree ([facility]) 06/05/2019 - DTs (delirium tremens) ([facility]) 06/02/2019 - SAH (subarachnoid hemorrhage) ([facility]) 06/02/2019 - Closed fracture of one rib of left side 06/02/2019 - Closed fracture of vault of skull ([facility]) 06/02/2019 - Aphasia 06/02/2019 - Subdural hematoma ([facility]) 06/01/2019 - Bipolar affective disorder ([facility]) 12/21/2012 Overview Note: Diagnosed in ~1989 ? [...] nausea contol 8. Ethics consulted - Contact [facility] team for consent - Obtain brothers phone numbers from Mr. Kingsley Prophylaxis: 1. DVT ppx: SCD, LVX Consulted Services and Recommendations: 1. SICU, NSX, ID, Ethics Dispo Plannin. TBD Follow Up Needs: 1. TBD SIGNATURE: Gino Jack DO PATIENT NAME: Rhoda Hensley DATE: June 15, 2019 TIME: 10:26 AM Pager: see below Trauma Service Pager: For questions or concerns Mon-Fri 6a-5p please page [phone]. After 5pm and on Weekends and Holidays, [...] Tobacco Use Disorder Personal history of alcoholism ([facility]) Depression Tremor Gerd (Gastroesophageal Reflux Disease) Bipolar Affective Disorder (Hcc) Epilepsy (Hcc) Pain of Upper Abdomen Subdural Hematoma (Hcc) Dts (Delirium Tremens) ([facility]) Sah (Subarachnoid Hemorrhage) ([facility]) Closed Fracture of One Rib of Left Side Closed Fracture of Vault of Skull (Hcc) Aphasia Malnutrition of Mild Degree (Hcc) Acute Respiratory Failure With Hypercapnia (Hcc) Fever Leukocytosis Cavitary Pneumonia Lilliana Beltran MD Department of General Surgery Division of Trauma, Critical Care, and Acute Care Surgery June 15, 2019 3:47 PM Normal [facility] Basic Panelon 06-14-2019 Creatinine [Mass/Vol] 0.40 mg/dL Low 0.67-1.17 [facility] Comment on above: Performed By: #### P T #### [facility] [address] [place], [place] [address] Urea nitrogen [Mass/Vol] 11 mg/dL Normal 7-18 [facility] Comment on above: Performed By: #### P T #### [facility] [address] [place], [place] [address] Anion gap [Moles/Vol] 11 mmol/L Normal 8-16 [facility] Comment on above: Performed By: #### P T #### [address] [address] Calcium [Mass/Vol] 9.1 mg/dL Normal 8.5-10.1 [facility] Comment on above: Performed By: #### P T #### [address] [address] CO2 [Moles/Vol] 30 mmol/L Normal 21-32 [facility] Comment on above: Performed By: #### P T #### [address] [address] Glucose [Mass/Vol] 116 mg/dL High 70-99 [facility] Comment on above: Performed By: #### P T #### [facility] [address] [place], [place] [address] Chloride [Moles/Vol] 99 mmol/L Normal 98-107 [facility] Comment on above: Performed By: #### P T #### [address] [address] Potassium [Moles/Vol] 3.3 mmol/L Low 3.5-5.1 [facility] Comment on above: Performed By: #### P T #### [facility] [address] [place], [place] [address] Sodium [Moles/Vol] 137 mmol/L Normal 136-145 [facility] Comment on above: Performed By: #### P T #### [facility] [address] [place], [place] [address] CONSULT PROGon 06-14-2019 CONSULT PROG HNO ID: [id number] Author: Sally Robles Service: Bioethics Author Type: Bioethicist Type: Consult Progress Note Filed: 06/14/2019 2:26 PM Note Text: BIOETHICS PROGRESS NOTE SERVICE DATE: 06/14/2019 SERVICE TIME: 2:12 PM ? ETHICS QUESTION: Bioethics continues to follow per the Patients without Surrogates SOP ? ETHICS RECOMMENDATIONS: 1. Until Mr. Hensley either regains decision-making capacity or an authorized surrogate is identified, please follow the Patients without Surrogates SOP for any decisions regarding his care. ? 2. Per the SOP, please call Bioethics for future decisions that would require specific consent utntil Mr. Hensley regains capacity or an authorized surrogate is identified. ? 3. For value-laden decisions, recommend involving emergency contact/former partner Sahil Kingsley ([phone]) to inform decision-making, even though Mr. Kingsley is not an authorized surrogate. 4.Recommend asking Mr. Kingsley for any phone number(s) he has for Mr. Hensley's brothers, documenting those numbers in the EMR and having a member of the team (social science manager or a test case developer) attempt to contact them directly. ? ETHICS DISCUSSION AND ANALYSIS: Rec 1 and 2: [facility] Patients without Surrogates Standard Operating Procedure [...] consideration. All three categories require that a Utilities And Maintenance Supervisor continue (and document) rigorous efforts to identify a surrogate, which is being done in this case. ? Rec 3: While close friends do not fall into the legal hierarchy of decision-makers, they often have valuable insights into patient values and preferences that can inform decision-making pursuant to the Patients without Surrogates SOP. ? Rec 4: Given that Mr. Hensley's brother has reportedly not returned Mr. Kingsley's [...] Patient's code status is full code. ? Capacity/Decision-Making Considerations: Per care team, patient is unable to make his own decisions at this time. Advance Directives/Family/Support System: Patient does not have advance directives in his EMR. A former partner?Sahil Kingsley ([phone]) is listed as an emergency contact. Per [place], Mr. Hensley has two brothers, but the team has [...] reach the Ethics Consultation Service. * Sally Jad Mcginnis ([phone]) is the covering ethicist Sunday at 8am until Sunday at 8am. * Ciro Hung ([phone]) is the covering ethicist Sunday at 8am through next week. ? Thank you for the opportunity to participate in Mr. Hensley's care. SIGNATURE: Sally Robles JD (Bioethics Staff) PATIENT NAME: Rhoda Hensley DATE: June 14, 2019 TIME: 2:12 PM PAGER/CONTACT #: [phone] [facility] Creatinine Clearanceon 06-14 Creatinine [Mass/Vol] 1.3 g/24 hrs Normal 0.9-2.4 [facility] Comment on above: Performed By: #### P T #### [place] [address] Total Volume 2380 mL High 9765-8325 [facility] Comment on above: Performed By: #### P T #### [place] [address] Hemogram/Diffon 06-14-2019 Abs Immature Grans 0.21 thou/cmm High 0.00-0.05 [facility] Comment on above: Performed By: #### P T #### [place] [address] Abs Neut (ANC) 14.06 thou/cmm High 1.78-5.38 [facility] Comment on above: Performed By: #### P T #### [place] [address] Abs. Baso 0.16 thou/cmm High 0.01-0.08 [facility] Comment on above: Performed By: #### P T #### [place] [address] Abs. [place] 1.26 thou/cmm High 0.30-0.82 [facility] Comment on above: Performed By: #### P T #### [facility] [address] [place], [place] [address] Basophils/100 WBC (Bld) 0.9 % Normal [facility] Comment on above: Performed By: #### P T #### [facility] [address] [place], [place] [address] Eosinophils (Bld) [#/Vol] 0.45 thou/cmm Normal 0.04-0.54 [facility] Comment on above: Performed By: #### P T #### [facility] [address] [place], [place] [address] Eosinophils/100 WBC (Bld) 2.6 % Normal [facility] Comment on above: Performed By: #### P T #### [facility] 1 [place], [place] [address] Erythrocyte distribution width (RBC) [Ratio] 13.9 % Normal 11.6-14.4 [facility] Comment on above: Performed By: #### P T #### [facility] [address] [place], [place] [address] Hematocrit (Bld) [Volume fraction] 39.8 % Low 40.1-51.0 [facility] Comment on above: Performed By: #### P T #### [facility] [address] [place], [place] [address] Hemoglobin (Bld) [Mass/Vol] 13.4 g/dL Low 13.7-17.5 [facility] Comment on above: Performed By: #### P T #### [facility] [address] [place], [place] [address] Immature Grans 1.20 % Normal [facility] Comment on above: Performed By: #### P T #### [facility] [address] [place], [place] [address] Lymphocytes (Bld) [#/Vol] 1.33 thou/cmm Normal 0.84-2.85 [facility] Comment on above: Performed By: #### P T #### [facility] [address] [place], [place] [address] Lymphocytes/100 WBC (Bld) 7.6 % Normal [facility] Comment on above: Performed By: #### P T #### [facility] 1 [place], [place] [address] MCH (RBC) [Entitic mass] 32.5 pg High 25.7-32.2 [facility] Comment on above: Performed By: #### P T #### [facility] [address] [place], [place] [address] MCHC (RBC) [Mass/Vol] 33.7 % Normal 32.3-36.5 [facility] Comment on above: Performed By: #### P T #### [facility] [address] [place] [address] MCV (RBC) [Entitic vol] 96.6 fL High 83.2-95.6 [facility] Comment on above: Performed By: #### P T #### [facility] [address] [place] [address] Monocytes/100 WBC (Bld) 7.2 % Normal [facility] Comment on above: Performed By: #### P T #### [facility] [address] [place], [place] [address] Platelet mean volume (Bld) [Entitic vol] 8.6 fL Low 8.7-12.0 [facility] Comment on above: Performed By: #### P T #### [facility] 1 [place], [place] [address] Platelets (Bld) [#/Vol] 1082 thou/cmm Critically high 141-365 [facility] Comment on above: Performed By: #### P T #### [facility] [address] [place], [place] [address] RBC (Bld) [#/Vol] 4.12 mil/cmm Low 4.63-6.08 [facility] Comment on above: Performed By: #### P T #### [facility] [address] [place] [address] RDW SD 49.7 fl High 36.1-45.8 [facility] Comment on above: Performed By: #### P T #### [facility] [address] [place], [place] [address] Seg Neutrophil 80.5 % Normal [facility] Comment on above: Performed By: #### P T #### [facility] [address] [place], [place] [address] WBC (Bld) [#/Vol] 17.46 thou/cmm High 4.23-9.07 [facility] Comment on above: Performed By: #### P T #### [facility] 1 [place] [id number] Ionized Calciumon 06-14-2019 Ionized Ca,PH7.4 4.79 mg/dL Normal 4.61-5.17 [facility] Comment on above: Performed By: #### P T #### [place] [id number] pH (Bld) 7.425 [pH] Normal 7.320-7.430 [facility] Comment on above: Performed By: #### P T #### [place] [address] Ionized Calcium 4.72 mg/dL Normal 4.61-5.17 [facility] Comment on above: Performed By: #### P T #### [place] [id number] Magnesium Bloodon 06-14-2019 Magnesium [Mass/Vol] 2.0 mg/dL Normal 1.6-2.6 [facility] Comment on above: Performed By: #### P T #### [place] [id number] NURSING PROGon 06-14-2019 NURSING PROG HNO ID: [id number] Author: Gilberto (Rn) GILBERTO Clemens Service: ? Author Type: Registered Nurse Type: Nursing Progress Note Filed: 06/14/2019 12:37 PM Note Text: Nursing Progress Note Patient Name: Rhoda [facility]ens[id number] Transfer Note: Patient transferred into room/unit 5205 in stable condition. Actions taken: Report given/called to Jaimee MACIAS. Jaimee MACIAS visualized at bedside, assessing patient and taking vitals when left in his new room. This note was completed by: Gilberto Clemens RN [facility] PROGRESSon 06-14-2019 PROGRESS HNO ID: [id number] Author: Wilmer Bolton III Service: Infectious Disease Author Type: Physician Type: Progress Notes Filed: 06/14/2019 1:52 PM Note Text: Pseudomonas sidhu-susceptible. Stop Meropenem, continue levaquin. SIGNATURE: Wilmer Bolton III, MD PATIENT NAME: Rhoda Hensley DATE: June 14, 2019 TIME: 1:52 PM PAGER/CONTACT #: [phone] [facility] PROGRESS HNO ID: [id number] Author: Lilliana Beltran Service: Critical Care Author [...] INTRAMUSCULAR q 6 H PRN - pill supervisor instant potato processing (patient-specific) 1 Each Miscell. (Med.Supl.;Non-Drugs) PRN - [...] (96.1 ?F), Max:37.6 ?C (99.7 ?F) Date 06/13/19 07 - 06/14/19 0659 06/14/19 07 - 06/15/19 0659 Shift 1720-3819 6638-8565 8284-8854 24 Hour Total 0942-9195 7144-4081 5156-4364 24 Hour Total INTAKE PO 150 510 660 PO 150 510 660 IV 510.6 738 536 3521.6 IVPB 250 250 NS 0.9% 65 65 [...] Total 1103.6 732 1070 2905.6 OUTPUT Urine 0438 077 2696 3045 Output ( External Collection Device 06/04/191999) 4174 871 2767 3045 # of BMs Number of BMs 1 x 0 x 1 x Shift Total 1806 185 0699 3045 Weight (kg) 77.3 77.3 77.3 77.3 77.3 77.3 77.3 77.3 PHYSICAL EXAM: GENERAL: alert, cooperative, mildly confused SKIN: Skin color, texture, turgor normal. No rashes or lesions. LUNGS: CTAB. resp unlabored on nasal cannula CARDIAC: RRR ABDOMEN: soft, non-distended, nontender EXTREMITIES: BENAVIDES. No edema NEURO: alert, oriented to self. [...] Tobacco Use Disorder Personal history of alcoholism ([facility]) Depression Tremor Gerd (Gastroesophageal Reflux Disease) Bipolar Affective Disorder (Hcc) Epilepsy ([facility]) Pain of Upper Abdomen Subdural Hematoma ([facility]) Dts (Delirium Tremens) ([facility]) Sah (Subarachnoid Hemorrhage) ([facility]) Closed Fracture of One Rib of Left Side Closed Fracture of Vault of Skull ([facility]) Aphasia Malnutrition of Mild Degree ([facility]) Acute Respiratory Failure With Hypercapnia ([facility]) Fever Leukocytosis Cavitary Pneumonia Traumatic Inuries: 1. [...] 1448 Peripherally Inserted (PICC) Left Arm 5.0 Cook Islander 4 days Drain GI Feed 06/02/19 1446 [...] and on Weekends and Holidays, please page [phone]. SIGNATURE: Reginaldo Johns MD PATIENT NAME: Rhoda Hensley DATE: June 14, 2019 TIME: 6:21 AM [...] Surgery June 14, 2019 1:15 PM Normal [facility] Phosphorus Bloodon 9 Phosphate [Mass/Vol] 2.0 mg/dL Low 2.5-4.9 [facility] Comment on above: Performed By: #### P T #### [place] [address] Basic Panelon 06-13-2019 Creatinine [Mass/Vol] 0.35 mg/dL Low 0.67-1.17 [facility] Comment on above: Performed By: #### P T #### [place] [address] Anion gap [Moles/Vol] 12 mmol/L Normal 8-16 [facility] Comment on above: Performed By: #### P T #### [place] [address] CO2 [Moles/Vol] 31 mmol/L Normal 21-32 [facility] Comment on above: Performed By: #### P T #### [place] [address] Urea nitrogen [Mass/Vol] 11 mg/dL Normal 7-18 [facility] Comment on above: Performed By: #### P T #### [facility] [address] [place], [place] [address] Calcium [Mass/Vol] 8.9 mg/dL Normal 8.5-10.1 [facility] Comment on above: Performed By: #### P T #### [facility] [address] [place], [place] [address] Glucose [Mass/Vol] 184 mg/dL High 70-99 [facility] Comment on above: Performed By: #### P T #### [facility] [address] [place], [place] [address] Chloride [Moles/Vol] 94 mmol/L Low 98-107 [facility] Comment on above: Performed By: #### P T #### [facility] [address] [place], [place] [address] Potassium [Moles/Vol] 3.5 mmol/L Normal 3.5-5.1 [facility] Comment on above: Performed By: #### P T #### [facility] [address] [place], [place] [address] Sodium [Moles/Vol] 133 mmol/L Low 136-145 [facility] Comment on above: Performed By: #### P T #### [facility] [address] [place], [place] [address] Blood Gas Arterialon 10-25-2 019 FIO2 40 % Normal [facility] Comment on above: Performed By: #### P T #### [facility] [address] [place], [place] [address] Base Excess 7.2 mmol/L High -3.0-3.0 [facility] Comment on above: Performed By: #### P T #### [facility] [address] [place], [place] [address] HCO3 (Bld) [Moles/Vol] 30.9 mmol/L High 21.0-28.0 [facility] Comment on above: Performed By: #### P T #### [facility] [address] [place], [place] [address] O2% Sat Arterial 99.1 % Normal 96.0-100.0 [facility] Comment on above: Performed By: #### P T #### [facility] [address] [place] [address] PCO2 Arterial 38.6 mm Hg Normal 35.0-45.0 [facility] Comment on above: Performed By: #### P T #### [facility] [address] [place] [address] pH Arterial 7.509 High 7.350-7.450 [facility] Comment on above: Performed By: #### P T #### [facility] [address] [place] [address] PO2 Arterial 127.0 mm Hg High 83.0-108.0 [facility] Comment on above: Performed By: #### P T #### [facility] [address] [place] [address] CONSULT PROGon 06-13-2019 CONSULT PROG HNO ID: [id number] Author: Shama Mathew (Journeyman Powerhouse Operator) Service: Pharmacy Author Type: Pharmacist Type: Consult Progress Note Filed: 06/13/2019 4:40 PM Note Text: PHARMACY VANCOMYCIN DOSING NOTE Patient Name: Rhoda Hensley Admission Date: 06/01/2019 Date of Consult: 06/13/2019 Time of Consult: 4:38 PM Indication: Pneumonia Goal Range: 15-25 mcg/mL RECOMMENDATIONS/PLAN: Pharmacy consulted for vancomycin dosing for Rhoda Hensley, a 49 year old, male who is being treated with vancomycin for pneumonia. Resp Culture + Stain: Probable Pseudomonas aeruginosa Many 1. The primary service has discontinued vancomycin therapy. Pharmacy vancomycin dosing service will sign off. Thank you for allowing us to participate in this patient's care. Please contact pharmacy if questions. Normal [facility] HIV Screenon 06-13-2019 HIV Screen Nonreactive Normal Nonreactive [facility] Comment on above: Performed By: #### P T #### [facility] [address] [place] [id number] Hemogram/Diffon 06-13-2019 Abs Immature Grans 0.47 thou/cmm High 0.00-0.05 [facility] Comment on above: Performed By: #### P T #### [facility] [address] [place] [address] Abs Neut (ANC) 25.40 thou/cmm High 1.78-5.38 [facility] Comment on above: Performed By: #### P T #### [facility] [address] [place] [address] Abs. Baso 0.15 thou/cmm High 0.01-0.08 [facility] Comment on above: Result Comment: Smea r scanned; tech agrees with automated differential Performed By: #### P T #### [facility] [address] [place] [address] Abs. [place] 1.52 thou/cmm High 0.30-0.82 [facility] Comment on above: Performed By: #### P T #### [facility] [address] [place] [address] Basophils/100 WBC (Bld) 0.5 % Normal [facility] Comment on above: Performed By: #### P T #### [facility] [address] [place] [address] Eosinophils (Bld) [#/Vol] 0.50 thou/cmm Normal 0.04-0.54 [facility] Comment on above: Performed By: #### P T #### [facility] [address] [place] [address] Eosinophils/100 WBC (Bld) 1.7 % Normal [facility] Comment on above: Performed By: #### P T #### [place] [address] Immature Grans 1.60 % Normal [facility] Comment on above: Performed By: #### P T #### [facility] [address] [place], [place] [address] Lymphocytes (Bld) [#/Vol] 1.17 thou/cmm Normal 0.84-2.85 [facility] Comment on above: Performed By: #### P T #### [address] [address] Lymphocytes/100 WBC (Bld) 4.0 % Normal [facility] Comment on above: Performed By: #### P T #### [facility] [address] [place] [address] Monocytes/100 WBC (Bld) 5.2 % Normal [facility] Comment on above: Performed By: #### P T #### [facility] [address] [place] [address] Seg Neutrophil 87.0 % Normal [facility] Comment on above: Performed By: #### P T #### [facility] [address] [place] [address] Erythrocyte distribution width (RBC) [Ratio] 14.2 % Normal 11.6-14.4 [facility] Comment on above: Performed By: #### P T #### [facility] [address] [place] [address] Hematocrit (Bld) [Volume fraction] 38.5 % Low 40.1-51.0 [facility] Comment on above: Performed By: #### P T #### [facility] [address] [place] [address] Hemoglobin (Bld) [Mass/Vol] 12.5 g/dL Low 13.7-17.5 [facility] Comment on above: Performed By: #### P T #### [facility] [address] [place] [address] MCH (RBC) [Entitic mass] 32.4 pg High 25.7-32.2 [facility] Comment on above: Performed By: #### P T #### [facility] [address] [place] [address] MCHC (RBC) [Mass/Vol] 32.5 % Normal 32.3-36.5 [facility] Comment on above: Performed By: #### P T #### [facility] [address] [place] [address] MCV (RBC) [Entitic vol] 99.7 fL High 83.2-95.6 [facility] Comment on above: Performed By: #### P T #### [facility] [address] [place] [address] Platelet mean volume (Bld) [Entitic vol] 8.9 fL Normal 8.7-12.0 [facility] Comment on above: Performed By: #### P T #### [facility] [address] [place], [place] [address] Platelets (Bld) [#/Vol] 1020 thou/cmm Critically high 141-365 [facility] Comment on above: Performed By: #### P T #### [facility] 1 [place] [id number] RBC (Bld) [#/Vol] 3.86 mil/cmm Low 4.63-6.08 [facility] Comment on above: Performed By: #### P T #### [facility] [address] [place], [place] [address] RDW SD 52.4 fl High 36.1-45.8 [facility] Comment on above: Performed By: #### P T #### [facility] [address] [place] [id number] WBC (Bld) [#/Vol] 29.19 thou/cmm Critically high 4.23-9.07 [facility] Comment on above: Performed By: #### P T #### [facility] [address] [place], [place] [address] Ionized Calciumon 06-13-2019 Ionized Ca,PH7.4 4.69 mg/dL Normal 4.61-5.17 [facility] Comment on above: Performed By: #### P T #### [facility] [address] [place], [place] [address] pH (Bld) 7.426 [pH] Normal 7.320-7.430 [facility] Comment on above: Performed By: #### P T #### [facility] [address] [place], [place] [address] Ionized Calcium 4.63 mg/dL Normal 4.61-5.17 [facility] Comment on above: Performed By: #### P T #### [facility] [address] [place], [place] [address] Magnesium Bloodon 06-13-2019 Magnesium [Mass/Vol] 1.8 mg/dL Normal 1.6-2.6 [facility] Comment on above: Performed By: #### P T #### [facility] [address] [place] [id number] NURSING PROGon 06-13-2019 NURSING PROG HNO ID: [id number] Author: Halina (Rn) GILBERTO Carroll Service: Nursing Author Type: Registered Nurse Type: Nursing Progress Note Filed: 06/13/2019 2:28 PM Note Text: Behavioral Restraints Summary and Debriefing Note PATIENT NAME: Rhoda Hensley Date in Restraints 06-13-19 Time in Restraints [...] of debriefin Halina Carroll RN 06/13/2019 Normal [facility] NURSING PROG HNO ID: [id number] Author: Mynor LucasRnKim Hernandez RN Service: ? Author Type: Registered Nurse Type: Nursing Progress Note Filed: 06/13/2019 9:16 AM Note Text: Nursing Progress: Topic: RESTRAINT NON-VIOLENT PATIENT NAME: Rhoda Hensley PATIENT LOCATION: [place] [address] [address]* The patient demonstrates Attempting to Remove Medical [...] 2019 TIME: 8:00 AM Mynor Hernandez RN [facility] NURSING PROG O ID: [id number] Author: Kasandra LucasRnKim Rizo RN Service: Nursing Author Type: Registered Nurse Type: Nursing Progress Note Filed: 06/12/2019 10:32 PM Note Text: Nursing Progress: Topic: RESTRAINT NON-VIOLENT PATIENT NAME: Rhoda Hensley PATIENT LOCATION: [place] [address]* The patient demonstrates Attempting to Remove Medical [...] 2019 TIME: 10:32 PM Kasandra Rizo RN [facility] PROGRESSon 06-13-2019 PROGRESS HNO ID: [id number] Author: Lilliana Beltran Service: Trauma Author Type: Physician Type: Progress Notes Filed: 06/13/2019 1:43 PM Note Text: SICU Addendum: Passed SBT, ABG without hypercarbia or hypoxemia, NIF -31, (+) cuff leak Tolerated extubation well, no stridor or hypoxia or arrhythmias Lilliana Beltran MD 06/13/19 1:42 PM [facility] PROGRESS HNO ID: [id number] Author: Kat Putnam Service: Infectious Disease Author Type: Physician Type: Progress Notes Filed: 06/13/2019 9:13 AM Note Text: Kat Putnam MD, MS, FACP, [facility] Division of Infectious Diseses [address] [place] [address] Office: [phone] INFECTIOUS DISEASE CONSULT PROGRESS NOTE SERVICE DATE: [...] QID - propofol infusion (DIPRIVAN) 0-30 mcg/kg/min ([place]) INTRAVENOUS CONTINUOUS - haloperidol lactate 5 mg injection (HALDOL) 5 mg INTRAMUSCULAR q 6 H PRN - pill supervisor instant potato processing (patient-specific) 1 Each Miscell. (Med.Supl.;Non-Drugs) PRN - [...] HIV and fungal labs P, quantiferon P Impression/Recommendation s DTs (delirium tremens) ([facility]) POA: Yes Assessment AND Plan: Likely contributing to fevers. SAH (subarachnoid hemorrhage) ([facility]) POA: Yes Assessment AND Plan: Complicates management, can also be a source of fever. Closed fracture of vault of skull ([facility]) POA: Yes Assessment AND Plan: Per neuro. Acute respiratory failure with hypercapnia ([facility]) POA: No Assessment AND Plan: Vent weaning [...] minutes Dr Bolton covers weekend SIGNATURE: Kat Putnam MD, MS, FACP, FIDSA PATIENT NAME: Rhoda Hensley DATE: June 13, 2019 TIME: 9:03 AM PAGER/CONTACT #: [phone] [facility] PROGRESS HNO ID: [id number] Author: Lilliana Beltran Service: Critical Care Author Type: Physician Type: Progress Notes Filed: 06/13/2019 12:14 PM Note Text: INPATIENT SICU PROGRESS NOTE SICU Service Pager: For questions or concerns Mon-Sun 6a-5p please page [phone]. After 5pm and on Weekends and Holidays, please page [phone]. Subjective Subjective: Pt pulled ET tube out [...] QID - propofol infusion (DIPRIVAN) 0-30 mcg/kg/min ([place]) INTRAVENOUS CONTINUOUS - haloperidol lactate 5 mg injection (HALDOL) 5 mg INTRAMUSCULAR q 6 H PRN - pill supervisor instant potato processing (patient-specific) 1 Each Miscell. (Med.Supl.;Non-Drugs) PRN - [...] (98.4 ?F), Max:37.2 ?C (99 ?F) Date 06/12/[address] - 06/13/19 0659 06/13/19 07 - 06/14/19 0659 Shift 1259-4118 9049-4078 9030-9856 24 Hour Total 4918-2822 5262-8095 1793-2459 24 Hour Total INTAKE IV 437.4 413 [...] Shift Total 756.4 977 1733.4 OUTPUT Urine 440 633 8723 Void (ml) 436 346 4355 Output ( External Collection Device 06/04/191999) 340 340 # of BMs Number of BMs 3 x 3 x Shift Total 336 759 4768 Weight (kg) 77.3 77.3 77.3 77.3 77.3 [...] Tobacco Use Disorder Personal history of alcoholism ([facility]) Depression Tremor Gerd (Gastroesophageal Reflux Disease) Bipolar Affective Disorder ([facility]) Epilepsy ([facility]) Pain of Upper Abdomen Subdural Hematoma ([facility]) Dts (Delirium Tremens) ([facility]) Sah (Subarachnoid Hemorrhage) ([facility]) Closed Fracture of One Rib of Left Side Closed Fracture of Vault of Skull ([facility]) Aphasia Malnutrition of Mild Degree ([facility]) Acute Respiratory Failure With Hypercapnia ([facility]) This is a 49 year old male [...] 1448 Peripherally Inserted (PICC) Left Arm 5.0 [place]er (Active) Peripheral 06/09/19 0700 Assessment Short Right [...] SIGNATURE: Raudel Martínez MD PATIENT NAME: Rhoda Hensley DATE: June 13, 2019 TIME: 6:15 AM PAGER: see below SICU Service Pager: For questions or concerns Mon-Fri 6a-5p please page [phone]. After 5pm and on Weekends and Holidays, please page [phone]. Critical Care Attestation Gradual improvement in neurologic [...] care above: *Need for Restraints. *Need for Aguero Catheter. *Need for Central Access Devices. *Daily Sedation Holiday. *VTE Prophylaxis. SIGNATURE: Lilliana Beltran MD PATIENT NAME: Rhoda Hensley DATE: June 13, 2019 TIME: 12:02 PM Normal [facility] PROGRESS HNO ID: [id number] Author: Lakesha Wilkes Service: Trauma Author Type: Physician Type: Progress Notes Filed: 06/13/2019 10:28 AM Note Text: Trauma Progress Note SERVICE DATE: 06/13/2019 Trauma Service Pager: For questions or concerns Mon-Fri 6a-5p please page [phone]. After 5pm and on Weekends and Holidays, please page [phone] if in ICU or [phone] if on RNF. SUBJECTIVE: Pt pulled ET [...] Therapy: Ventilator IANDO: Date 06/12/19 07 - 06/13/19 0659 06/13/19 07 - 06/14/19 0659 Shift 9642-0119 3809-7666 8732-3015 24 Hour Total 4647-0626 2835-8166 6600-8462 24 Hour Total INTAKE IV 437.4 413 [...] Shift Total 756.4 977 1733.4 OUTPUT Urine 057 756 0791 Void (ml) 617 528 0143 Output ( External Collection Device 06/04/191999) 340 340 # of BMs Number of BMs 3 x 3 x Shift Total 538 152 5347 Weight (kg) 77.3 77.3 77.3 77.3 77.3 [...] QID - propofol infusion (DIPRIVAN) 0-30 mcg/kg/min ([place]) INTRAVENOUS CONTINUOUS - haloperidol lactate 5 mg injection (HALDOL) 5 mg INTRAMUSCULAR q 6 H PRN - pill supervisor instant potato processing (patient-specific) 1 Each Miscell. (Med.Supl.;Non-Drugs) PRN - [...] Noted - Acute respiratory failure with hypercapnia ([facility]) 06/07/2019 - Malnutrition of mild degree ([facility]) 06/05/2019 - DTs (delirium tremens) ([facility]) 06/02/2019 - SAH (subarachnoid hemorrhage) ([facility]) 06/02/2019 - Closed fracture of one rib of left side 06/02/2019 - Closed fracture of vault of skull ([facility]) 06/02/2019 - Aphasia 06/02/2019 - Subdural hematoma ([facility]) 06/01/2019 - Bipolar affective disorder ([facility]) 12/21/2012 Overview Note: Diagnosed in ~1989 This [...] questions or concerns Mon-Sun 6a-5p please page [phone]. After 5pm and on Weekends and Holidays, please page [phone] if in ICU or [phone] if on RNF. SIGNATURE: Raudel Martínez MD PATIENT NAME: Rhoda Hensley DATE: June 13, 2019 TIME: 6:12 AM [...] MD Date: 06/13/2019 Time: 10:25 AM Normal [facility] Phosphorus Bloodon 9 Phosphate [Mass/Vol] 2.5 mg/dL Normal 2.5-4.9 [facility] Comment on above: Performed By: #### P T #### [address] [address] THERAPY NTon 06-13-2019 THERAPY NT HNO ID: [id number] Author: Stephanie (Icing And Glaze Maker) MANUEL Dai/METAL ENGINEERING PROCESS WORKER Service: Speech/Swallow Author Type: Speech Language Pathologist Type: Therapy (PT/OT/Speech/Resp) Filed: 06/13/2019 3:12 PM Note Text: Speech Therapy Clinical Swallow Evaluation SERVICE DATE: 06/13/2019 SERVICE TIME: 1430 to 1450 ROOM: [id number] Nursing Recommendations: See swallow guide posted in [...] oropharyngeal phase Interventions Provided: Clinical Swallow Evaluation (53426) $ Clinical Swallow Evaluation (12859) Billed Units: 1 unit Total Treatment Time [...] for this therapy evaluation/treatment. SIGNATURE: Stephanie Dai CCC-METAL ENGINEERING PROCESS WORKER PATIENT NAME: Rhoda Hensley DATE: June 13, 2019 TIME: 3:02 PM Normal [facility] Basic Panelon 06-12-2019 Creatinine [Mass/Vol] 0.35 mg/dL Low 0.67-1.17 [facility] Comment on above: Performed By: #### P 8 ####[address] [address] Anion gap [Moles/Vol] 11 mmol/L Normal 8-16 [facility] Comment on above: Performed By: #### P 8 ####[address] [address] Calcium [Mass/Vol] 9.1 mg/dL Normal 8.5-10.1 [facility] Comment on above: Performed By: #### P 8 ####[address] [address] CO2 [Moles/Vol] 26 mmol/L Normal 21-32 [facility] Comment on above: Performed By: #### P 8 ####[address] [address] Glucose [Mass/Vol] 129 mg/dL High 70-99 [facility] Comment on above: Performed By: #### P 8 ####[facility] [place], [place] [address] Urea nitrogen [Mass/Vol] 12 mg/dL Normal 7-18 [facility] Comment on above: Performed By: #### P 8 ####[facility] [place], [place] [address] Chloride [Moles/Vol] 101 mmol/L Normal 98-107 [facility] Comment on above: Performed By: #### P 8 ####[facility] [place], [place] [address] Potassium [Moles/Vol] 4.0 mmol/L Normal 3.5-5.1 [facility] Comment on above: Performed By: #### P 8 ####[address] [address] Sodium [Moles/Vol] 134 mmol/L Low 136-145 [facility] Comment on above: Performed By: #### P 8 ####[address] [address] CASE MANAGEMon 06-12-2019 CASE MANAGEM HNO ID: [id number] Author: Kaitlin Varghese (Sw) Service: Care Management Author Type: Utilities And Maintenance Supervisor Type: Care Mgt Progress Note Filed: 06/12/2019 2:30 PM Note Text: CARE MANAGEMENT PROGRESS NOTE SERVICE DATE: 06/12/2019 SERVICE TIME: 2:20 PM LOS: 11 days NOK and self pay Phone call with pt friend, Wolfgang, who reports pt does not have children and both parents are . Friend states he reached out to brother in [facility] last week but has not heard back (they have been estranged for 15 years). Ethics consulted and involved. Phone call with [employer] who reports leaving message with pt friend on Sunday (06/11); advised that SW just spoke with friend and he has information re: pt income and job status. SIGNATURE: LUZ MARIA Rodriguez PATIENT NAME: Rhoda Hensley DATE: June 12, 2019 TIME: 2:20 PM PAGER/CONTACT #: [facility] CASE MANAGEM HNO ID: [id number] Author: Stephanie LucasRn) GILBERTO Cruz Service: Care Management Author Type: Registered Nurse Type: Care Mgt Progress Note Filed: 06/12/2019 10:54 AM Note Text: CARE MANAGEMENT PROGRESS NOTE SERVICE DATE: 06/12/2019 SERVICE TIME: 10:49 AM LOS: 11 days Needs Prior to Discharge: To Be Determined Notes reviewed in [facility]. Patient remains on Vent. No family present. Spoke with RN. Patient following commands intermitently. Hopeful to wean patient from vent. Patient has no POA. Has sig. other Sahil [phone] who has been in to see patient a couple of time. No POA. SW asked to follow as may need guardian. Referral for [facility] placed as patient will likely need placement at discharge. CM/SW to continue to follow for needs. SIGNATURE: Stephanie Cruz RN PATIENT NAME: Rhoda Hensley DATE: June 12, 2019 TIME: 10:49 AM PAGER/CONTACT #: [phone] [facility] CONSULTon 06-12-2019 CONSULT HNO ID: [id number] Author: Kat Putnam Service: Infectious Disease Author Type: Physician Type: Consults Filed: 06/13/2019 8:05 AM Note Text: [facility] - Consultation PATIENT NAME: RHODA HENSLEY CSN: [id number] DATE OF : 1970 SEX/AGE: M/49 PATIENT TYPE: I HOSP [facility] [place] [facility] [place] LOCATION: [facility] DATE OF SERVICE: 06/12/2019 TIME OF SERVICE: 11:05 AM REASON FOR CONSULTATION: Fever, leukocytosis, antibiotic management. HISTORY OF PRESENT ILLNESS: The patient is a 49-year-old man with heavy alcohol abuse who was transferred from [facility] to the Trauma Surgery Service back on 06/01. All the history is obtained by reviewing the chart as patient is currently intubated, in the ICU. Per the chart, he was found to be confused by his neighbors and taken to the [place] ER. There, he was found to have left subdural hematoma and a left parietal bone fracture. He was confused and was transferred to [facility]. He was admitted to the Trauma Surgery [...] heavy alcohol abuse who was transferred from [facility] for change in mental status. He was [...] a QuantiFERON assay. We will check a lhtq-F-vyszcy assay. We are going to check an HIV test. I am going to check a galactomannan. We will follow up all the culture results. I am going to empirically start him on vancomycin, meropenem, and Levaquin. I will deescalate the antibiotics based on cultures. Thank you for this consultation. I will follow closely with you. Kat Putnam MD, MS, [facility], [facility] Infectious Disease RRW:modl /[id number] [facility] CONSULT HNO ID: [id number] Author: Kat Putnam Service: Infectious Disease Author Type: Physician Type: Consults Filed: 06/12/2019 11:13 AM Note Text: 11:12 AM Consult dictated # [id number] Await culture results. Check more labs. Start vanco, meropenem and levaquin. Will de-escalate based on culture data. [facility] CONSULT PROGon 06-12-2019 CONSULT PROG HNO ID: [id number] Author: Shama Mathew (Journeyman Powerhouse Operator) Service: Pharmacy Author Type: Pharmacist Type: Consult Progress Note Filed: 06/12/2019 4:47 PM Note Text: PHARMACY VANCOMYCIN DOSING NOTE Patient Name: Rhoda Hensley Admission Date: 06/01/2019 Date of Consult: 06/12/2019 Time of Consult: 4:23 PM Indication: Pneumonia Goal Range: 15-25 mcg/mL RECOMMENDATIONS/PLAN: Pharmacy consulted for vancomycin dosing for Rhoda Hensley, a 49 year old, male who is [...] antibiotics is appropriate Vivien spoke with Dr. Putnam in regards to adjusting antibiotic dosing. Recommended meropenem increased to 2 g Q8H and levofloxacin increased to 750 mg daily. We will follow patient renal function, vancomycin levels and doses with you during the course of therapy. Additional recommendations will appear in follow up notes. If you have any questions, please contact pharmacy at [phone] (7a-5p), [phone] (after 5p). Age: [age] year old Allergies: [...] Levels: No results found for: KANDI Mathew, Journeyman Powerhouse Operator [facility] CONSULT PROG HNO ID: [id number] Author: Giuliana Murillo Service: Bioethics Author Type: [...] procedure is medically appropriate and in Mr. Hensley's best interests (see Patients without Surrogates Standard Operating Procedure (SOP) below). 2. Please call Bioethics for future decisions that would require specific consen utntil Mr. Hensley regains capacity or an authorized surrogate is identified. 3. For value-laden decisions, recommend involving emergency contact/former partner Sahil Kingsley ([phone]) to inform decision-making, even though Mr. Kingsley [...] develop appropriate plan of care for Mr. Hensley. Per Patients without Surrogates SOP, two physicians should also document that the intervention is medically appropriate and in Mr. Hensley's best interests. Rec 2: Pursuant to the [...] Status: Patient's code status is full code. Capacity/Decision-Making Considerations: Per care team, patient is unable to make his own decisions at this time. Advance Directives/Family/Support System: Patient does not have advance directives in his EMR. A former partner Sahil Kingsley ([phone]) is listed as an emergency contact. Per Mr. Kingsley, Mr. Hensley has two brothers, but the team has [...] the Ethics Consultation Service. * Giuliana Murillo ([phone]) is the covering ethicist until Sunday at 8am. * Sally Mcginnis ([phone]) is the covering ethicist Sunday at 8am until Sunday at 8am. * Ciro Hung ([phone]) is the covering ethicist Sunday at 8am through next week. SIGNATURE: Giuliana Murillo JD PATIENT NAME: Rhoda Hensley DATE: June 12, 2019 TIME: 12:19 PM PAGER/CONTACT #: [phone] [facility] CONSULT PROG HNO ID: [id number] Author: Oli Sheets (Pharmacist) Service: Pharmacy Author Type: Pharmacist Type: Consult Progress Note Filed: 06/12/2019 11:57 AM Note Text: PHARMACY VANCOMYCIN DOSING NOTE Patient Name: Rhoda Hensley Admission Date: 06/01/2019 Date of Consult: 06/12/2019 Time of Consult: 11:56 AM Indication: Pneumonia Goal Range: 15-25 mcg/mL RECOMMENDATIONS/PLAN: Pharmacy consulted for vancomycin dosing for Rhoda Hensley, a 49 year old, male who is [...] [place] [phone] [place] [phone]. Age: [age] year old Allergies: ALLERGIES Allergen [...] Vancomycin Levels: No results found for: KANDI SHEETS, PHARMACIST [facility] CT ABD/PEL W IVCONon 019 CT ABD/PEL W IVCON * * *Final Report* * * DATE OF EXAM: Jun 12 2019 9:23AM [facility] 0530 - CT ABD/PEL W IVCON / [...] Otherwise no significant intra-abdominal or pelvic findings. Pharmacy Delivery Driver: HUGO Transcribe Date/Time: Jun 12 2019 9:48A Dictated by : OTTONIEL VILLAGOMEZ MD This examination was interpreted and the report reviewed and electronically signed by: OTTONIEL VILLAGOMEZ MD on Jun 12 2019 9:55AM EST [facility] CT BRAIN WO IVCONon 06-12-[address] BRAIN WO IVCON * * *Final Report* * * DATE OF EXAM: Jun 12 2019 9:17AM [facility] 0504 - CT BRAIN WO IVCON / [...] convexity subdural hygromas have decreased in size. Pharmacy Delivery Driver: [facility] Transcribe Date/Time: Jun 12 2019 9:26A Dictated by : FANTA HEART MD This examination was interpreted and the report reviewed and electronically signed by: FANTA HEART MD on Jun 12 2019 10:12AM EST [facility] CT CHEST W IVCONon 9 CT CHEST W IVCON * * *Final Report* * * DATE OF EXAM: Jun 12 2019 9:23AM [facility] 0539 - CT CHEST W IVCON / [...] reactive lymph node enlargement in the mediastinum. Pharmacy Delivery Driver: HUGO Transcribe Date/Time: Jun 12 2019 9:36A Dictated by : OTTONIEL VILLAGOMEZ MD This examination was interpreted and the report reviewed and electronically signed by: OTTONIEL VILLAGOMEZ MD on Jun 12 2019 9:47AM EST [facility] Cult Bloodon 06-12-2019 Cult Blood Test performed at [facility] No growth [facility] Comment on above: Performed By: #### P T #### [facility] [address] [place], [place] [address] Cult Blood Test performed at [facility] No growth [facility] Comment on above: Performed By: #### P T #### [facility] [address] [place] [address] Cult Urineon 06-12-2019 Cult Urine Test performed at [facility] No growth <1,000 CFU/ml. [facility] Comment on above: Performed By: #### P T #### [facility] [address] [place] [address] Cult and Smr Respiratoryon 1 Cult and Smr Respiratory Test performed at [facility] Absence of normal oropharyngeal scotty Few Gram negative bacilli Many Polymorphonuclear leukocytes Few Mononuclear cells Few Squamous epithelial cells ORGANISM: *Pseudomonas aeruginosa (ID: 1) Many For sensitivity report see Date/ [id number] [facility] Comment on above: Performed By: #### P T #### [facility] [address] [place] [address] Cult and Smr Respiratory Test performed at [facility] Absence of normal oropharyngeal scotty Rare Gram negative bacilli Many Polymorphonuclear leukocytes Few Mononuclear cells Few Squamous epithelial cells ORGANISM: *Pseudomonas aeruginosa (ID: 1) Few [facility] Comment on above: Performed By: #### P T #### [facility] [address] [place] [address] Hemogram/Diffon 06-12-2019 Abs Immature Grans 0.76 thou/cmm High 0.00-0.05 [facility] Comment on above: Performed By: #### C BCD1 ####[facility] [place] [address] Abs Neut (ANC) 35.65 thou/cmm High 1.78-5.38 [facility] Comment on above: Performed By: #### C BCD1 ####[facility] [place] [address] Abs. Baso 0.24 thou/cmm High 0.01-0.08 [facility] Comment on above: Result Comment: Smea r scanned; tech agrees with automated differential Performed By: #### C BCD1 ####[facility] [place] [address] Abs. [place] 1.80 thou/cmm High 0.30-0.82 [facility] Comment on above: Performed By: #### C BCD1 ####[facility] [place], [place] [address] Basophils/100 WBC (Bld) 0.6 % Normal [facility] Comment on above: Performed By: #### C BCD1 ####[facility] [place], [place] [address] Eosinophils (Bld) [#/Vol] 0.36 thou/cmm Normal 0.04-0.54 [facility] Comment on above: Performed By: #### C BCD1 ####[address] [address] Eosinophils/100 WBC (Bld) 0.9 % Normal [facility] Comment on above: Performed By: #### C BCD1 ####[address] [address] Immature Grans 1.90 % Normal [facility] Comment on above: Performed By: #### C BCD1 ####[address] [address] Lymphocytes (Bld) [#/Vol] 1.28 thou/cmm Normal 0.84-2.85 [facility] Comment on above: Performed By: #### C BCD1 ####[address] [address] Lymphocytes/100 WBC (Bld) 3.2 % Normal [facility] Comment on above: Performed By: #### C BCD1 ####[address] [address] Monocytes/100 WBC (Bld) 4.5 % Normal [facility] Comment on above: Performed By: #### C BCD1 ####[address] [address] Seg Neutrophil 88.9 % [facility] Comment on above: Performed By: #### C BCD1 ####[address] [address] Erythrocyte distribution width (RBC) [Ratio] 14.5 % High 11.6-14.4 [facility] Comment on above: Performed By: #### C BCD1 ####[facility] [place], [place] [address] Hematocrit (Bld) [Volume fraction] 42.0 % Normal 40.1-51.0 [facility] Comment on above: Performed By: #### C BCD1 ####[facility] [place], [place] [address] Hemoglobin (Bld) [Mass/Vol] 13.7 g/dL Normal 13.7-17.5 [facility] Comment on above: Performed By: #### C BCD1 ####[address] [address] MCH (RBC) [Entitic mass] 32.5 pg High 25.7-32.2 [facility] Comment on above: Performed By: #### C BCD1 ####[address] [address] MCHC (RBC) [Mass/Vol] 32.6 % Normal 32.3-36.5 [facility] Comment on above: Performed By: #### C BCD1 ####[address] [address] MCV (RBC) [Entitic vol] 99.5 fL High 83.2-95.6 [facility] Comment on above: Performed By: #### C BCD1 ####[address] [address] Platelet mean volume (Bld) [Entitic vol] 9.0 fL Normal 8.7-12.0 [facility] Comment on above: Performed By: #### C BCD1 ####[address] [address] Platelets (Bld) [#/Vol] 1017 thou/cmm Critically high 141-365 [facility] Comment on above: Performed By: #### C BCD1 ####[address] [address] RBC (Bld) [#/Vol] 4.22 mil/cmm Low 4.63-6.08 [facility] Comment on above: Performed By: #### C BCD1 ####[place] [address] RDW SD 52.8 fl High 36.1-45.8 [facility] Comment on above: Performed By: #### C BCD1 ####[facility] [place], [place] [address] WBC (Bld) [#/Vol] 40.10 thou/cmm Critically high 4.23-9.07 [facility] Comment on above: Performed By: #### C BCD1 ####[address] [address] Ionized Calciumon 06-12-2019 Ionized Ca,PH7.4 4.75 mg/dL Normal 4.61-5.17 [facility] Comment on above: Performed By: #### I ONCA ####[address] [address] pH (Bld) 7.481 [pH] High 7.320-7.430 [facility] Comment on above: Performed By: #### I ONCA ####[address] [address] Ionized Calcium 4.55 mg/dL Low 4.61-5.17 [facility] Comment on above: Performed By: #### I ONCA ####[address] [address] Magnesium Bloodon 06-12-2019 Magnesium [Mass/Vol] 2.1 mg/dL Normal 1.6-2.6 [facility] Comment on above: Performed By: #### M AG ####[address] [address] NURSING PROGon 06-12-2019 NURSING PROG HNO ID: [id number] Author: Kasandra (Rn) GILBERTO Rizo Service: Nursing Author Type: Registered Nurse Type: Nursing Progress Note Filed: 06/12/2019 10:35 PM Note Text: Nursing Progress Note Patient Name: Rhoda Hensley Patient Location: [id number] - Patient restless and with strong productive cough. Coughed ET tube out 5cm. Respiratory and resident notified. Tube replaced by respiratory and stat xray obtained. Resident to read xray when complete. This note was completed by: Kasandra Rizo RN [facility] NURSING PROG HNO ID: [id number] Author: Gerson Jeffrey RN Service: Nursing Author Type: Registered Nurse Type: Nursing Progress Note Filed: 06/12/2019 3:32 PM Note Text: Nursing Progress: Topic: RESTRAINT NON-VIOLENT PATIENT NAME: Rhoda Hensley PATIENT LOCATION: [place] [address] [address]* The patient demonstrates Attempting to Remove Medical [...] 2019 TIME: 3:31 PM Gerson Jeffrey RN [facility] NURSING PROG O ID: [id number] Author: Diamante Michel RN Service: Nursing Author Type: Registered Nurse Type: Nursing Progress Note Filed: 06/11/2019 10:37 PM Note Text: Nursing Progress: Topic: RESTRAINT NON-VIOLENT PATIENT NAME: Rhoda Hensley PATIENT LOCATION: [place] [address] [address]* The patient demonstrates Attempting to Remove Medical [...] 2019 TIME: 10:37 PM Diamante Michel RN [facility] PLAN OF CAREon 06-12-2019 PLAN OF CARE HNO ID: [id number] Author: Lilliana Beltran Service: Critical Care Author [...] suspected. Lilliana Beltran MD 06/12/19 1:16 PM [facility] PROGRESSon 06-12-2019 PROGRESS HNO ID: [id number] Author: Lilliana Beltran Service: Critical Care Author Type: Physician Type: Progress Notes Filed: 06/12/2019 1:26 PM Note Text: INPATIENT SICU PROGRESS NOTE SICU Service Pager: For questions or concerns Mon-Sun 6a-5p please page [phone]. After 5pm and on Weekends and Holidays, please page [phone]. Subjective Subjective: No acute events. Agitated overnight [...] QID - propofol infusion (DIPRIVAN) 0-20 mcg/kg/min ([place]) INTRAVENOUS CONTINUOUS - haloperidol lactate 5 mg injection (HALDOL) 5 mg INTRAMUSCULAR q 6 H PRN - pill supervisor instant potato processing (patient-specific) 1 Each Miscell. (Med.Supl.;Non-Drugs) PRN - [...] (93.2 ?F), Max:38.4 ?C (101.1 ?F) Date 06/11/19 07 - 06/12/1965806/12/19699 - 06/13/19 0659 Shift 5457-1483 9193-2297 9714-7828 24 Hour Total 5712-3316 9114-7506 8629-9644 24 Hour Total INTAKE IV 404 133.5 543.9 1081.4 NS 0.9% 76 32 331 439 Zosyn IV 200 100 300 Dexmedetomidine IV 63.4 63.4 Propofol IV 128 1.5 149.5 279 Irrigants 30 30 60 120 Irrigant/Flush Amount In (GI Feed 06/02/19 1446 Gastric Right Naris 12 Fr) 30 30 60 120 Gastric Tube 398 143 323 3456 Tube Feed Intake (I/O) (GI Feed 06/02/19 1446 Gastric Right Naris 12 Fr) 398 062 021 5621 Shift Total 832 327.5 1211.9 2371.4 OUTPUT Urine 673 603 8963 3600 Void (ml) 780 2100 2880 Output ( External Collection Device 06/04/191999) 520 200 720 # of BMs Number of BMs 1 x 2 x 3 x Shift Total 288 068 3220 3600 Weight (kg) 78 78 78 78 78 78 78 78 PHYSICAL EXAM: GENERAL: sedated SKIN: Skin color, texture, turgor normal. No rashes or lesions. LUNGS: ventilated CARDIAC: Regular rate and rhythm as above, ABDOMEN: soft, non-distended EXTREMITIES: restrained, no gross deformity NEURO: sedated DATA: Diagnostic tests reviewed for today's visit: Recent Labs 06/11/19 1735 06/10/19426 PH 7.442 [...] Abdomen Subdural Hematoma (Hcc) Dts (Delirium Tremens) ([facility]) Sah (Subarachnoid Hemorrhage) ([facility]) Closed Fracture of One Rib of Left Side Closed Fracture of Vault of Skull ([facility]) Aphasia Malnutrition of Mild Degree ([facility]) Acute Respiratory Failure With Hypercapnia ([facility]) This is a 49 year old male [...] Control:?tylenol, oxycodone, morphine prn, lidoderm patch - Sedation:propofol,?schedu led seroquel, phenobarb - goal to continue to [...] hope to extubate today. Recent Labs 06/11/19 0866 06/10/19 0427 PH 7.442 7.512* PCO2 43.3 32.0* PO2 79.4* 71.0* BE 4.8* 3.3* Respiratory/Nursing Documentation: O2 Therapy: Ventilator (10/24/19 0318) Invasive Ventilator Mode: Pressure Regulated Volume Control [...] 1448 Peripherally Inserted (PICC) Left Arm 5.0 Cook Islander (Active) Peripheral 06/07/19 0812 Short Left Hand [...] questions or concerns Mon-Fri 6a-5p please page [phone]. After 5pm and on Weekends and Holidays, please page [phone]. Critical Care Attestation Fevers and escalating leukocytosis [...] a/p to assess for occult intraperitoneal process (cholecystitis/colitis/et c) Bronchoscopy with targeted BAL No CVC site [...] Abdomen Subdural Hematoma (Hcc) Dts (Delirium Tremens) ([facility]) Sah (Subarachnoid Hemorrhage) ([facility]) Closed Fracture of One Rib of Left [...] care above: *Need for Restraints. *Need for Aguero Catheter. *Need for Central Access Devices. *Daily Sedation Holiday. *VTE Prophylaxis. SIGNATURE: Lilliana Beltran MD PATIENT NAME: Rhoda Hensley DATE: June 12, 2019 TIME: 1:19 PM [facility] PROGRESS HNO ID: [id number] Author: Lakesha Wilkes Service: General Surgery Author [...] O2 Therapy: Ventilator IANDO: Date 06/11/196[address] - 06/12/1965806/12/19699 - 06/13/19658 Shift 0544-4226 8025-9920 8819-7449 24 Hour Total 6849-1029 0236-8990 6152-4567 24 Hour Total INTAKE IV 404 133.5 543.9 1081.4 NS 0.9% 76 32 331 439 Zosyn IV 200 100 300 Dexmedetomidine IV 63.4 63.4 Propofol IV 128 1.5 149.5 279 Irrigants 30 30 60 120 Irrigant/Flush Amount In (GI Feed 06/02/19 1446 Gastric Right Naris 12 Fr) 30 30 60 120 Gastric Tube 398 528 983 5570 Tube Feed Intake (I/O) (GI Feed 06/02/19 1446 Gastric Right Naris 12 Fr) 398 131 360 0259 Shift Total 832 327.5 1211.9 2371.4 OUTPUT Urine 660 766 1603 3600 Void (ml) 780 2100 2880 Output ( External Collection Device 06/04/191999) 520 200 720 # of BMs Number of BMs 1 x 2 x 3 x Shift Total 912 923 9784 3600 Weight (kg) 78 78 78 78 [...] QID - propofol infusion (DIPRIVAN) 0-20 mcg/kg/min ([place]) INTRAVENOUS CONTINUOUS - haloperidol lactate 5 mg injection (HALDOL) 5 mg INTRAMUSCULAR q 6 H PRN - pill supervisor instant potato processing (patient-specific) 1 Each Miscell. (Med.Supl.;Non-Drugs) PRN - [...] Noted - Acute respiratory failure with hypercapnia ([facility]) 06/07/2019 - Malnutrition of mild degree ([facility]) 06/05/2019 - DTs (delirium tremens) ([facility]) 06/02/2019 - SAH (subarachnoid hemorrhage) ([facility]) 06/02/2019 - Closed fracture of one rib of left side 06/02/2019 - Closed fracture of vault of skull ([facility]) 06/02/2019 - Aphasia 06/02/2019 - Subdural hematoma ([facility]) 06/01/2019 - Bipolar affective disorder ([facility]) 12/21/2012 Overview Note: Diagnosed in ~1989 This [...] questions or concerns Mon-Fri 6a-5p please page [phone]. After 5pm and on Weekends and Holidays, please page [phone] if in ICU or [phone] if on [...] MD Date: 06/12/2019 Time: 10:43 AM [facility] PROGRESS HNO ID: [id number] Author: Rachel (Jacquelyn) Pradip Service: General Surgery Author Type: Resident Type: Progress Notes Filed: 06/12/2019 2:58 AM Note Text: Called for increasing agitation, arousal. Per nurse, patient got very agitated and attempted to self extubate- not improved with propofol/barbiturate/sero quel. Patient seen and evaluated bedside. Mild hypertension, [...] Rachel Moseley MD 06/12/2019 2:58 AM [facility] Phosphorus Bloodon 9 Phosphate [Mass/Vol] 3.0 mg/dL Normal 2.5-4.9 [facility] Comment on above: Performed By: #### P HOS ####[place] [address] Procalcitoninon 06-12-2019 Procalcitonin 0.15 ng/mL Normal [facility] Comment on above: Result Comment: Leve ls [...] elevations. Performed By: #### P T #### [place] [address] Urinalysis Routineon 06-12-2 019 Bacteria LM.HPF (Urine sed) [#/Area] NONE Normal None [facility] Comment on above: Performed By: #### P T #### [place] [address] Ep Cells Urine 1.3 /hpf Normal 0.0-5.0 [facility] Comment on above: Performed By: #### P T #### [place] [address] Hyaline Cast 0.3 /lpf Normal 0.0-1.0 [facility] Comment on above: Performed By: #### P T #### [place] [address] RBC LM.HPF (Urine sed) [#/Area] 2.0 /[HPF] Normal 0.0-5.0 [facility] Comment on above: Performed By: #### P T #### [place] [address] WBC LM.HPF (Urine sed) [#/Area] 1.0 /[HPF] Normal 0.0-5.0 [facility] Comment on above: Performed By: #### P T #### [place] [address] Appearance (U) CLOUDY Normal [facility] Comment on above: Performed By: #### P T #### [place] [address] Bilirubin (U) [Mass/Vol] Negative Normal Negative [facility] Comment on above: Performed By: #### P T #### [facility] [address] [place] [address] Color (U) YELLOW Normal [facility] Comment on above: Performed By: #### P T #### [facility] [address] [place] [address] Glucose Ql (U) Negative Normal Negative [facility] Comment on above: Performed By: #### P T #### [facility] [address] [place] [address] Hemoglobin,Urine Negative Normal Negative [facility] Comment on above: Performed By: #### P T #### [facility] [address] [place] [address] Ketone Urine Negative Normal Negative [facility] Comment on above: Performed By: #### P T #### [facility] [address] [place] [address] Leukocytes Esterase Negative Normal Negative [facility] Comment on above: Performed By: #### P T #### [facility] [address] [place] [address] Nitrites Urine Negative Normal Negative [facility] Comment on above: Performed By: #### P T #### [facility] [address] [place] [address] pH (U) 6.5 [pH] Normal 5.0-8.0 [facility] Comment on above: Performed By: #### P T #### [facility] [address] [place] [address] Protein (U) [Mass/Vol] Negative Normal Negative [facility] Comment on above: Performed By: #### P T #### [facility] [address] [place] [address] Specific [place], Ur 1.042 Abnormal 1.005-1.030 [facility] Comment on above: Performed By: #### P T #### [facility] [address] [place] [address] Urobilinogen,Ur 0.2 EU/dL Normal 0.2-1.0 [facility] Comment on above: Performed By: #### P T #### [facility] [address] [place] [address] XR CHEST 1V FRONTALon 2018 XR CHEST [...] silhouette. Other: IMPRESSION: No significant interval change. Pharmacy Delivery Driver: HUGO Transcribe Date/Time: Jun 12 2019 10:01P Dictated by : MATILDA ROBLES MD This examination was interpreted and the report reviewed and electronically signed by: MATILDA ROBLES MD on Jun 12 2019 10:08PM EST Normal [facility] XR CHEST 1V FRONTAL * * *Final [...] atelectasis and suspect trace left pleural effusion Pharmacy Delivery Driver: PSCB Transcribe Date/Time: Jun 12 2019 6:32A Dictated by : MERLENE QUARLES MD This examination was interpreted and the report reviewed and electronically signed by: MERLENE QUARLES MD on Jun 12 2019 6:36AM EST Normal [facility] Basic Panelon 06-11-2019 Creatinine [Mass/Vol] 0.44 mg/dL Low 0.67-1.17 [facility] Comment on above: Performed By: #### E RTRP #### [facility] [address] [place], [place] [address] Glucose [Mass/Vol] 136 mg/dL High 70-99 [facility] Comment on above: Performed By: #### E RTRP #### [facility] [address] [place], [place] [address] Anion gap [Moles/Vol] 10 mmol/L Normal 8-16 [facility] Comment on above: Performed By: #### E RTRP #### [facility] [address] [place], [place] [address] Calcium [Mass/Vol] 8.8 mg/dL Normal 8.5-10.1 [facility] Comment on above: Performed By: #### E RTRP #### [facility] [address] [place], [place] [address] CO2 [Moles/Vol] 29 mmol/L Normal 21-32 [facility] Comment on above: Performed By: #### E RTRP #### [facility] [address] [place], [place] [address] Urea nitrogen [Mass/Vol] 12 mg/dL Normal 7-18 [facility] Comment on above: Performed By: #### E RTRP #### [facility] [address] [place], [place] [address] Chloride [Moles/Vol] 101 mmol/L Normal 98-107 [facility] Comment on above: Performed By: #### E RTRP #### [facility] [address] [place], [place] [address] Potassium [Moles/Vol] 3.9 mmol/L Normal 3.5-5.1 [facility] Comment on above: Performed By: #### E RTRP #### [facility] [address] [place], [place] [address] Sodium [Moles/Vol] 136 mmol/L Normal 136-145 [facility] Comment on above: Performed By: #### E RTRP #### [facility] [address] [place] [address] Blood Gas Arterialon 019 FIO2 40 % Normal [facility] Comment on above: Performed By: #### A BG ####[facility] [place] [address] Base Excess 4.8 mmol/L High -3.0-3.0 [facility] Comment on above: Performed By: #### A BG ####[place] [address] HCO3 (Bld) [Moles/Vol] 29.0 mmol/L High 21.0-28.0 [facility] Comment on above: Performed By: #### A BG ####[place] [address] O2% Sat Arterial 95.7 % Low 96.0-100.0 [facility] Comment on above: Performed By: #### A BG ####[place] [address] PCO2 Arterial 43.3 mm Hg Normal 35.0-45.0 [facility] Comment on above: Performed By: #### A BG ####[place] [address] pH Arterial 7.442 Normal 7.350-7.450 [facility] Comment on above: Performed By: #### A BG ####[place] [address] PO2 Arterial 79.4 mm Hg Low 83.0-108.0 [facility] Comment on above: Performed By: #### A BG ####[place] [address] Hemogram/Diffon 06-11-2019 Abs Immature Grans 0.78 thou/cmm High 0.00-0.05 [facility] Comment on above: Performed By: #### E RTRP #### [place] [address] Abs Neut (ANC) 14.21 thou/cmm High 1.78-5.38 [facility] Comment on above: Performed By: #### E RTRP #### [facility] [address] [place], [place] [address] Abs. Baso 0.15 thou/cmm High 0.01-0.08 [facility] Comment on above: Result Comment: Smea r scanned; tech agrees with automated differential Performed By: #### E RTRP #### [facility] [address] [place], [place] [address] Abs. [place] 1.53 thou/cmm High 0.30-0.82 [facility] Comment on above: Performed By: #### E RTRP #### [facility] [address] [place], [place] [address] Basophils/100 WBC (Bld) 0.8 % Normal [facility] Comment on above: Performed By: #### E RTRP #### [facility] [address] [place], [place] [address] Eosinophils (Bld) [#/Vol] 0.43 thou/cmm Normal 0.04-0.54 [facility] Comment on above: Performed By: #### E RTRP #### [facility] [address] [place], [place] [address] Eosinophils/100 WBC (Bld) 2.3 % Normal [facility] Comment on above: Performed By: #### E RTRP #### [facility] [address] [place], [place] [address] Immature Grans 4.20 % Normal [facility] Comment on above: Performed By: #### E RTRP #### [facility] [address] [place], [place] [address] Lymphocytes (Bld) [#/Vol] 1.55 thou/cmm Normal 0.84-2.85 [facility] Comment on above: Performed By: #### E RTRP #### [facility] [address] [place], [place] [address] Lymphocytes/100 WBC (Bld) 8.3 % Normal [facility] Comment on above: Performed By: #### E RTRP #### [facility] [address] [place], [place] [address] Monocytes/100 WBC (Bld) 8.2 % Normal [facility] Comment on above: Performed By: #### E RTRP #### [facility] [address] [place] [address] Seg Neutrophil 76.2 % Normal [facility] Comment on above: Performed By: #### E RTRP #### [facility] [address] [place] [address] Erythrocyte distribution width (RBC) [Ratio] 14.6 % High 11.6-14.4 [facility] Comment on above: Performed By: #### E RTRP #### [facility] [address] [place] [address] Hematocrit (Bld) [Volume fraction] 39.2 % Low 40.1-51.0 [facility] Comment on above: Performed By: #### E RTRP #### [facility] [address] [place] [address] Hemoglobin (Bld) [Mass/Vol] 12.7 g/dL Low 13.7-17.5 [facility] Comment on above: Performed By: #### E RTRP #### [facility] [address] [place] [address] MCH (RBC) [Entitic mass] 32.2 pg Normal 25.7-32.2 [facility] Comment on above: Performed By: #### E RTRP #### [facility] [address] [place] [address] MCHC (RBC) [Mass/Vol] 32.4 % Normal 32.3-36.5 [facility] Comment on above: Performed By: #### E RTRP #### [facility] [address] [place] [address] MCV (RBC) [Entitic vol] 99.5 fL High 83.2-95.6 [facility] Comment on above: Performed By: #### E RTRP #### [facility] [address] [place] [address] Platelet mean volume (Bld) [Entitic vol] 9.0 fL Normal 8.7-12.0 [facility] Comment on above: Performed By: #### E RTRP #### [facility] [address] [place], [place] [address] Platelets (Bld) [#/Vol] 778 thou/cmm High 141-365 [facility] Comment on above: Performed By: #### E RTRP #### [facility] [address] [place], [place] [address] RBC (Bld) [#/Vol] 3.94 mil/cmm Low 4.63-6.08 [facility] Comment on above: Performed By: #### E RTRP #### [facility] [address] [place], [place] [address] RDW SD 53.5 fl High 36.1-45.8 [facility] Comment on above: Performed By: #### E RTRP #### [facility] [address] [place], [place] [address] WBC (Bld) [#/Vol] 18.65 thou/cmm High 4.23-9.07 [facility] Comment on above: Performed By: #### E RTRP #### [facility] [address] [place], [place] [address] Ionized Calciumon 06-11-2019 Ionized Ca,PH7.4 4.75 mg/dL Normal 4.61-5.17 [facility] Comment on above: Performed By: #### E RTRP #### [facility] [address] [place], [place] [address] pH (Bld) 7.423 [pH] Normal 7.320-7.430 [facility] Comment on above: Performed By: #### E RTRP #### [facility] [address] [place], [place] [address] Ionized Calcium 4.70 mg/dL Normal 4.61-5.17 [facility] Comment on above: Performed By: #### E RTRP #### [facility] [address] [place], [place] [address] Magnesium Bloodon 06-11-2019 Magnesium [Mass/Vol] 2.1 mg/dL Normal 1.6-2.6 [facility] Comment on above: Performed By: #### M AG ####[facility] [place], [place] [address] NURSING PROGon 06-11-2019 NURSING PROG HNO ID: [id number] Author: Gerson (Rn) GILBERTO Jeffrey Service: Nursing Author Type: Registered Nurse Type: Nursing Progress Note Filed: 06/11/2019 2:34 PM Note Text: Nursing Progress: Topic: RESTRAINT NON-VIOLENT PATIENT NAME: Rhoda Hensley PATIENT LOCATION: [place] [address] [address]* The patient demonstrates Attempting to Remove Medical [...] TIME: 2:33 PM Gerson Jeffrey RN Normal [facility] PROGRESSon 06-11-2019 PROGRESS HNO ID: [id number] Author: Lakesha Wilkes Service: General Surgery Author Type: Physician Type: Progress Notes Filed: 06/11/2019 11:03 AM Note Text: Trauma Progress Note SERVICE DATE: 06/11/2019 Trauma Service Pager: For questions or concerns Mon-Fri 6a-5p please page [phone]. After 5pm and on Weekends and Holidays, please page [phone] if in ICU or [phone] if on RNF. SUBJECTIVE: No acute events. [...] 26.92 kg/m? O2 Therapy: Ventilator IANDO: Date 06/10/19 07 - 06/11/19 0659 06/11/19 07 - 06/12/19 0659 Shift 5965-2854 4213-6903 0529-5335 24 Hour Total 7337-8794 2195-5771 3985-1987 24 Hour Total INTAKE IV 335.7 89 247 671.7 NS 0.9% 71 54 30 155 Zosyn IV 100 100 Propofol IV 164.7 35 117 316.7 Levetiracetam IV 100 100 Irrigants 100 130 30 260 Irrigant/Flush Amount In (GI Feed 06/02/19 1446 Gastric Right Naris 12 Fr) 100 130 30 260 Gastric Tube 379 744 458 6306 Tube Feed Intake (I/O) (GI Feed 06/02/19 1446 Gastric Right Naris 12 Fr) 379 991 410 3509 Shift Total 814.7 124 355 1245.7 OUTPUT Urine 1300 501 905 6114 Output ( External Collection Device 06/04/191999) 1300 717 089 0394 Shift Total 1300 834 948 6793 Weight (kg) 80.3 80.3 80.3 80.3 80.3 [...] QID - propofol infusion (DIPRIVAN) 0-40 mcg/kg/min ([place]) INTRAVENOUS CONTINUOUS - metoprolol tartrate (short acting) 25 mg tab(s) (LOPRESSOR) 25 mg ORAL QID - haloperidol lactate 5 mg injection (HALDOL) 5 mg INTRAMUSCULAR q 6 H PRN - pill supervisor instant potato processing (patient-specific) 1 Each Miscell. (Med.Supl.;Non-Drugs) PRN - [...] 100 mg ORAL TID Labs: Recent Labs 06/11/1934906/10/1942606/10/1942206/09/19314 NA 136 -- 135* < > -- [...] Noted - Acute respiratory failure with hypercapnia ([facility]) 06/07/2019 - Malnutrition of mild degree ([facility]) 06/05/2019 - DTs (delirium tremens) ([facility]) 06/02/2019 - SAH (subarachnoid hemorrhage) ([facility]) 06/02/2019 - Closed fracture of one rib of left side 06/02/2019 - Closed fracture of vault of skull ([facility]) 06/02/2019 - Aphasia 06/02/2019 - Subdural hematoma ([facility]) 06/01/2019 - Bipolar affective disorder ([facility]) 12/21/2012 Overview Note: Diagnosed in ~1989 This [...] For questions or concerns Sun-Sun- please page [phone]. After 5pm and on Weekends and Holidays, [...] MD Date: 06/11/2019 Time: 11:02 AM Normal [facility] PROGRESS HNO ID: [id number] Author: Lilliana Beltran Service: General Surgery Author Type: Physician Type: Progress Notes Filed: 06/11/2019 6:06 PM Note Text: INPATIENT SICU PROGRESS NOTE SICU Service Pager: For questions or concerns Sun-Sun- please page [phone]. After 5pm and on Weekends and Holidays, please page [phone]. Subjective Subjective: NAEON. Improved agitation. Scheduled ativan. 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 (Med.Supl.;Non-Drugs) PRN - [...] Max:37.8 ?C (100 ?F) Date 06/10/19699 - 06/11/1965806/11/19699 - 06/12/19 0659 Shift 8731-1300 0671-8937 4434-9620 24 Hour Total 3279-4744 2469-5818 0716-0083 24 Hour Total INTAKE IV 335.7 89 247 671.7 NS 0.9% 71 54 30 155 Zosyn IV 100 100 Propofol IV 164.7 35 117 316.7 Levetiracetam IV 100 100 Irrigants 100 130 30 260 Irrigant/Flush Amount In (GI Feed 06/02/19 1446 Gastric Right Naris 12 Fr) 100 130 30 260 Gastric Tube 379 933 647 2040 Tube Feed Intake (I/O) (GI Feed 06/02/19 1446 Gastric Right Naris 12 Fr) 379 161 652 3244 Shift Total 814.7 936 297 5787.7 OUTPUT Urine 1300 348 976 6027 Output ( External Collection Device 06/04/191999) 1300 706 024 3933 Shift Total 1300 817 923 1924 Weight (kg) 80.3 80.3 80.3 80.3 80.3 80.3 80.3 80.3 PHYSICAL EXAM: GENERAL: sedated SKIN: Skin color, texture, turgor normal. No rashes or lesions. LUNGS: ventilated CARDIAC: Regular rate and rhythm as above, ABDOMEN: soft, non-distended EXTREMITIES: restrained, no gross deformity NEURO: sedated DATA: Diagnostic tests reviewed for today's visit: Recent Labs 06/10/1942606/09/19 0315 PH 7.512* 7.506* PCO2 32.0* 34.8* [...] Abdomen Subdural Hematoma (Hcc) Dts (Delirium Tremens) ([facility]) Sah (Subarachnoid Hemorrhage) ([facility]) Closed Fracture of One Rib of Left [...] Control:?tylenol, oxycodone, morphine prn, lidoderm patch - Sedation:propofol,?schedu led seroquel, ativan. - goal to continue to [...] 1448 Peripherally Inserted (PICC) Left Arm 5.0 Cook Islander (Active) Peripheral 06/07/19 0812 Short Left Hand [...] questions or concerns Mon-Fri 6a-5p please page [phone]. After 5pm and on Weekends and Holidays, please page [phone]. Critical Care Attestation Followed commands today during [...] Abdomen Subdural Hematoma (Hcc) Dts (Delirium Tremens) ([facility]) Sah (Subarachnoid Hemorrhage) (Hcc) Closed Fracture of One Rib of Left Side Closed Fracture of Vault of Skull (Hcc) Aphasia Malnutrition of Mild Degree (H[facility]) Acute Respiratory Failure With Hypercapnia ([facility]) I provided 33 minutes of critical care [...] care above: *Need for Restraints. *Need for Aguero Catheter. *Need for Central Access Devices. *Daily Sedation Holiday. *VTE Prophylaxis. SIGNATURE: Lilliana Beltran MD PATIENT NAME: Rhoda Hensley DATE: June 11, 2019 TIME: 6:03 PM Normal [facility] Phosphorus Bloodon 9 Phosphate [Mass/Vol] 3.0 mg/dL Normal 2.5-4.9 [facility] Comment on above: Performed By: #### P HOS ####[place] [address] Basic Panelon 06-10-2019 Creatinine [Mass/Vol] 0.35 mg/dL Low 0.67-1.17 [facility] Comment on above: Performed By: #### E RTRP #### [facility] [address] [place] [address] Urea nitrogen [Mass/Vol] 8 mg/dL Normal 7-18 [facility] Comment on above: Performed By: #### E RTRP #### [facility] [address] [place] [address] Anion gap [Moles/Vol] 12 mmol/L Normal 8-16 [facility] Comment on above: Performed By: #### E RTRP #### [facility] [address] [place] [address] Calcium [Mass/Vol] 9.1 mg/dL Normal 8.5-10.1 [facility] Comment on above: Performed By: #### E RTRP #### [facility] [address] [place] [address] CO2 [Moles/Vol] 25 mmol/L Normal 21-32 [facility] Comment on above: Performed By: #### E RTRP #### [facility] [address] [place], [place] [address] Glucose [Mass/Vol] 146 mg/dL High 70-99 [facility] Comment on above: Performed By: #### E RTRP #### [facility] [address] [place], [place] [address] Chloride [Moles/Vol] 101 mmol/L Normal 98-107 [facility] Comment on above: Performed By: #### E RTRP #### [facility] [address] [place], [place] [address] Potassium [Moles/Vol] 3.3 mmol/L Low 3.5-5.1 [facility] Comment on above: Performed By: #### E RTRP #### [facility] [address] [place] [address] Sodium [Moles/Vol] 135 mmol/L Low 136-145 [facility] Comment on above: Performed By: #### E RTRP #### [facility] [address] [place] [address] Bld Gas Art and Ion Caon Base Excess 3.3 mmol/L High -3.0-3.0 [facility] Comment on above: Performed By: #### A MY #### [facility] [address] [place] [address] HCO3 (Bld) [Moles/Vol] 25.4 mmol/L Normal 21.0-28.0 [facility] Comment on above: Performed By: #### A MY #### [facility] [address] [place] [address] Ionized Ca,PH7.4 5.14 mg/dL Normal 4.61-5.17 [facility] Comment on above: Performed By: #### A MY #### [facility] [address] [place] [address] O2% Sat Arterial 95.1 % Low 96.0-100.0 [facility] Comment on above: Performed By: #### A MY #### [place] [address] PCO2 Arterial 32.0 mm Hg Low 35.0-45.0 [facility] Comment on above: Performed By: #### A MY #### [facility] [address] [place] [address] pH Arterial 7.512 High 7.350-7.450 [facility] Comment on above: Performed By: #### A MY #### [facility] [address] [place] [address] PO2 Arterial 71.0 mm Hg Low 83.0-108.0 [facility] Comment on above: Performed By: #### A MY #### [facility] [address] [place] [address] FIO2 40 % Normal [facility] Comment on above: Performed By: #### A MY #### [facility] [address] [place] [address] Ionized Calcium 4.85 mg/dL Normal 4.61-5.17 [facility] Comment on above: Performed By: #### A MY #### [place] [address] Cult Bloodon 06-10-2019 Cult Blood Test performed at [facility] No growth Normal [facility] Comment on above: Performed By: #### C _BLO ####[place] [address] Cult Blood Test performed at [facility] No growth Normal [facility] Comment on above: Performed By: #### C _BLO ####[place] [address] Hemogram/Diffon 06-10-2019 Abs Immature Grans 0.80 thou/cmm High 0.00-0.05 [facility] Comment on above: Performed By: #### G FR #### [place] [address] Abs Neut (ANC) 15.14 thou/cmm High 1.78-5.38 [facility] Comment on above: Performed By: #### G FR #### [place] [address] Abs. Baso 0.18 thou/cmm High 0.01-0.08 [facility] Comment on above: Performed By: #### G FR #### [facility] [address] [place], [place] [address] Abs. [place] 2.01 thou/cmm High 0.30-0.82 [facility] Comment on above: Performed By: #### G FR #### [facility] [address] [place], [place] [address] Basophils/100 WBC (Bld) 0.9 % Normal [facility] Comment on above: Performed By: #### G FR #### [facility] [address] [place], [place] [address] Eosinophils (Bld) [#/Vol] 0.28 thou/cmm Normal 0.04-0.54 [facility] Comment on above: Performed By: #### G FR #### [facility] [address] [place], [place] [address] Eosinophils/100 WBC (Bld) 1.4 % Normal [facility] Comment on above: Performed By: #### G FR #### [facility] [address] [place], [place] [address] Immature Grans 4.00 % Normal [facility] Comment on above: Performed By: #### G FR #### [facility] [address] [place], [place] [address] Lymphocytes (Bld) [#/Vol] 1.51 thou/cmm Normal 0.84-2.85 [facility] Comment on above: Performed By: #### G FR #### [facility] [address] [place], [place] [address] Lymphocytes/100 WBC (Bld) 7.6 % Normal [facility] Comment on above: Performed By: #### G FR #### [facility] [address] [place], [place] [address] Monocytes/100 WBC (Bld) 10.1 % Normal [facility] Comment on above: Performed By: #### G FR #### [facility] [address] [place], [place] [address] Seg Neutrophil 76.0 % Normal [facility] Comment on above: Performed By: #### G FR #### [facility] [address] [place], [place] [address] Erythrocyte distribution width (RBC) [Ratio] 14.4 % Normal 11.6-14.4 [facility] Comment on above: Performed By: #### G FR #### [facility] [address] [place], [place] [address] Hematocrit (Bld) [Volume fraction] 41.4 % Normal 40.1-51.0 [facility] Comment on above: Performed By: #### G FR #### [facility] [address] [place], [place] [address] Hemoglobin (Bld) [Mass/Vol] 13.7 g/dL Normal 13.7-17.5 [facility] Comment on above: Performed By: #### G FR #### [facility] [address] [place] [address] MCH (RBC) [Entitic mass] 32.0 pg Normal 25.7-32.2 [facility] Comment on above: Performed By: #### G FR #### [facility] [address] [place] [address] MCHC (RBC) [Mass/Vol] 33.1 % Normal 32.3-36.5 [facility] Comment on above: Performed By: #### G FR #### [facility] [address] [place] [address] MCV (RBC) [Entitic vol] 96.7 fL High 83.2-95.6 [facility] Comment on above: Performed By: #### G FR #### [facility] [address] [place], [place] [address] Platelet mean volume (Bld) [Entitic vol] 9.0 fL Normal 8.7-12.0 [facility] Comment on above: Performed By: #### G FR #### [facility] [address] [place], [place] [address] Platelets (Bld) [#/Vol] 706 thou/cmm High 141-365 [facility] Comment on above: Performed By: #### G FR #### [facility] [address] [place] [id number] RBC (Bld) [#/Vol] 4.28 mil/cmm Low 4.63-6.08 [facility] Comment on above: Performed By: #### G FR #### [facility] [address] [place], [place] [address] RDW SD 51.6 fl High 36.1-45.8 [facility] Comment on above: Performed By: #### G FR #### [facility] [address] [place], [place] [address] WBC (Bld) [#/Vol] 19.92 thou/cmm High 4.23-9.07 [facility] Comment on above: Performed By: #### G FR #### [facility] [address] [place], [place] [address] Magnesium Bloodon 06-10-2019 Magnesium [Mass/Vol] 2.1 mg/dL Normal 1.6-2.6 [facility] Comment on above: Performed By: #### E RTRP #### [address] [address] NURSING PROGon 06-10-2019 NURSING PROG HNO ID: [id number] Author: Eulalia (Rn) GILBERTO Tomlinson Service: Nursing Author Type: Registered Nurse Type: Nursing Progress Note Filed: 06/10/2019 10:58 PM Note Text: Nursing Progress: Topic: RESTRAINT NON-VIOLENT PATIENT NAME: Rhoda Hensley PATIENT LOCATION: [place] [address] [address]* The patient demonstrates Attempting to Remove Medical [...] 2019 TIME: 10:58 PM Eulalia Tomlinson RN [facility] NURSING PROG HNO ID: [id number] Author: Gerson Gomez) GILBERTO Jeffrey Service: Nursing Author Type: Registered Nurse Type: Nursing Progress Note Filed: 06/10/2019 9:15 AM Note Text: Nursing Progress: Topic: RESTRAINT NON-VIOLENT PATIENT NAME: Rhoda Hensley PATIENT LOCATION: [place] [address] [address]* The patient demonstrates Attempting to Remove Medical [...] 2019 TIME: 9:14 AM Gerson Jeffrey RN [facility] NUTRITIONon 06-10-2019 NUTRITION HNO ID: [id number] Author: Rafaela Higginbotham RD Service: Nutrition Therapy [...] 1448 Peripherally Inserted (PICC) Left Arm 5.0 [place]er (Active) Peripheral 06/07/19 0812 Short Left Hand [...] (VITAMIN B1) 100 mg ORAL TID Date 06/09/19 07 - 06/10/19 0606/10/19 07 - 06/11/19 0659 Shift 7070-3377 9038-6149 8001-5918 24 Hour Total 7488-7689 7854-8943 5486-0691 24 Hour Total INTAKE IV 555 859.5 [...] SIGNATURE: Rafaela Higginbotham RD PATIENT NAME: Rhoda Hensley DATE: June 10, 2019 TIME: 10:28 AM PAGER: [phone] Normal [facility] Osmolality Serumon 9 Osmolality [Osmolality] 283 mOsm/kg Normal 276-298 [facility] Comment on above: Performed By: #### E RTRP #### [facility] [address] [place] [address] Osmolality,Ur.on 06-10-2019 Osmolality (U) [Osmolality] 355 mOsm/kg Normal 250-1200 [facility] Comment on above: Performed By: #### E RTRP #### [facility] [address] [place], [place] [address] PROGRESSon 06-10-2019 PROGRESS HNO ID: [id number] Author: Ashley Denney) DESTINI Silver Service: Neurosurgery Author Type: Physician Reinforcing [employer] Machine Operator Type: Progress Notes Filed: 06/10/2019 2:43 [...] and follow examiner. Does not follow commands. BENAVIDES well. PERRL/eomi. Evidence of fresh and dried [...] be nonsurgical. Continue current mgt DESTINI Lobo [facility] PROGRESS HNO ID: [id number] Author: Raudel (Res) MD Mauricio Service: Trauma Author Type: Resident Type: Progress Notes Filed: 06/10/2019 10:31 AM Note Text: ----- Attestation signed by Angeli Villatoro at 06/10/2019 12:35 PM Attending Note I personally saw and examined the patient. I reviewed the resident's note. I agree with the resident's assessment and plan unless otherwise noted. Very agitated Adjusting sedative and pain meds. Signature: Angeli Villatoro MD Date: 06/10/2019 Time: 12:35 PM ----- Trauma Progress Note SERVICE DATE: 06/10/2019 Trauma Service Pager: For questions or concerns Mon-Fri 6a-5p please page [phone]. After 5pm and on Weekends and Holidays, please page [phone] if in ICU or [phone] if on RNF. SUBJECTIVE: NAEON. Pt remains [...] 0659 06/10/19 07 - 06/11/19 0659 Shift 5577-9235 0891-6360 5150-9162 24 Hour Total 6228-0299 4096-7079 8512-3090 24 Hour Total INTAKE IV 555 859.5 [...] 100 mg ORAL TID Labs: Recent Labs 06/10/1942606/10/1942206/09/19 0331 06/09/19 0315 NA -- 135* 132* [...] Noted - Acute respiratory failure with hypercapnia ([facility]) 06/07/2019 - Malnutrition of mild degree ([facility]) 06/05/2019 - DTs (delirium tremens) ([facility]) 06/02/2019 - SAH (subarachnoid hemorrhage) ([facility]) 06/02/2019 - Closed fracture of one rib of left side 06/02/2019 - Closed fracture of vault of skull (HCC) 06/02/2019 - Aphasia 06/02/2019 - Subdural hematoma (HCC) 06/01/2019 - Bipolar affective disorder ([facility]) 12/21/2012 Overview Note: Diagnosed in ~1989 This [...] questions or concerns Sun-Sun 6a-5p please page [phone]. After 5pm and on Weekends and Holidays, please page [phone] if in ICU or [phone] if on RNF. SIGNATURE: Raudel Martínez MD PATIENT NAME: Rhoda Hensley DATE: June 10, 2019 TIME: 10:28 AM [facility] PROGRESS HNO ID: [id number] Author: Lilliana Beltran Service: Critical Care Author Type: Physician Type: Progress Notes Filed: 06/10/2019 2:58 PM Note Text: INPATIENT SICU PROGRESS NOTE SICU Service Pager: For questions or concerns Sun-Sun 6a-5p please page [phone]. After 5pm and on Weekends and Holidays, please page [phone]. Subjective Subjective: NAEON. Pt remains restless overnight. [...] ?C (100.8 ?F) Date 06/09/19699 - 06/10/19 0659 06/10/19 07 - 06/11/19 0659 Shift 8345-9706 9942-2357 3672-5375 24 Hour Total 1027-2870 6862-4468 0588-4539 24 Hour Total INTAKE IV 555 859.5 [...] ( External Collection Device 06/04/191999) 1550 1070 1979 4600 450 450 # of BMs Stool [...] 74.0* BE 3.3* 4.6* 7.6* Recent Labs 06/10/1942206/09/19 0331 06/08/19 0350 CREAT 0.35* 0.36* 0.37* [...] Control:?tylenol, oxycodone, morphine prn, lidoderm patch - Sedation:propofol,?seroqu el BID Pt on high doses of propofol [...] 4.6* 7.6* Respiratory/Nursing Documentation: O2 Therapy: Ventilator (06/10/1950) Invasive Ventilator Mode: Pressure Regulated Volume Control (06/10/19849) Set Ventilator Respiratory Rate (BPM): 10 (06/10/19 0850) Total Respiratory Rate (BPM): 20 (06/10/19 0850) Tidal Volume Set (mL): 480 (06/10/19 0850) Exhaled Tidal Volume (mL): 492 (06/10/19 0850) Minute Volume (L): 10 (06/10/19 0850) Peak Inspiratory Pressure (cm H2O): 11 (06/10/19 0850) PEEP/CPAP (cm H2O): 5 (06/10/19 0850) GI: - DIET TUBE FEED - CONTIN [...] 1448 Peripherally Inserted (PICC) Left Arm 5.0 Cook Islander (Active) Peripheral 06/07/19 0812 Short Left Hand [...] SIGNATURE: Raudel Martínez MD PATIENT NAME: Rhoda Hensley DATE: June 10, 2019 TIME: 10:15 AM PAGER: see below SICU Service Pager: For questions or concerns Mon-Sun 6a-5p please page [phone]. After 5pm and on Weekends and Holidays, please page [phone]. Critical Care Attestation Ongoing severe agitation, propofol [...] and WBC for possible signs of secondary [employer] SAL[employer] infection due to ongoing otorrhea in the [...] Respiratory Failure With Hypercapnia (Hcc) I provided 34 minutes of critical care [...] care above: *Need for Restraints. *Need for Aguero Catheter. *Need for Central Access Devices. *Daily Sedation Holiday. *VTE Prophylaxis. SIGNATURE: Lilliana Beltran MD PATIENT NAME: Rhoda Hensley DATE: June 10, 2019 TIME: 2:49 PM [facility] Phosphorus Bloodon 9 Phosphate [Mass/Vol] 2.5 mg/dL Normal 2.5-4.9 [facility] Comment on above: Performed By: #### E RTRP #### [facility] [address] [place] [address] Procalcitoninon 06-10-2019 Procalcitonin 0.12 ng/mL Normal [facility] Comment on above: Result Comment: Leve ls [...] elevations. Performed By: #### E RTRP #### [place] [address] Urinalysis Routineon 019 Bacteria LM.HPF (Urine sed) [#/Area] NONE Normal None [facility] Comment on above: Performed By: #### E RTRP #### [facility] [address] [place] [address] Ep Cells Urine 0.4 /hpf Normal 0.0-5.0 [facility] Comment on above: Performed By: #### E RTRP #### [place] [address] Hyaline Cast 0.0 /lpf Normal 0.0-1.0 [facility] Comment on above: Performed By: #### E RTRP #### [facility] [address] [place] [address] RBC LM.HPF (Urine sed) [#/Area] 4.7 /[HPF] Normal 0.0-5.0 [facility] Comment on above: Performed By: #### E RTRP #### [place] [address] WBC LM.HPF (Urine sed) [#/Area] 0.2 /[HPF] Normal 0.0-5.0 [facility] Comment on above: Performed By: #### E RTRP #### [facility] [address] [place], [place] [address] Appearance (U) CLOUDY Normal [facility] Comment on above: Performed By: #### E RTRP #### [facility] [address] [place] [address] Bilirubin (U) [Mass/Vol] Negative Normal Negative [facility] Comment on above: Performed By: #### E RTRP #### [facility] [address] [place] [address] Color (U) YELLOW Normal [facility] Comment on above: Performed By: #### E RTRP #### [facility] [address] [place] [address] Glucose Ql (U) Negative Normal Negative [facility] Comment on above: Performed By: #### E RTRP #### [facility] [address] [place] [address] Hemoglobin,Urine Negative Normal Negative [facility] Comment on above: Performed By: #### E RTRP #### [facility] [address] [place] [address] Ketone Urine Negative Normal Negative [facility] Comment on above: Performed By: #### E RTRP #### [facility] [address] [place] [address] Leukocytes Esterase Negative Normal Negative [facility] Comment on above: Performed By: #### E RTRP #### [facility] [address] [place] [address] Nitrites Urine Negative Normal Negative [facility] Comment on above: Performed By: #### E RTRP #### [facility] [address] [place] [address] pH (U) 7.5 [pH] Normal 5.0-8.0 [facility] Comment on above: Performed By: #### E RTRP #### [facility] [address] [place] [address] Protein (U) [Mass/Vol] Negative Normal Negative [facility] Comment on above: Performed By: #### E RTRP #### [facility] [address] [place] [address] Specific [place], Ur 1.014 Normal 1.005-1.030 [facility] Comment on above: Performed By: #### E RTRP #### [facility] [address] [place] [address] Urobilinogen,Ur 0.2 EU/dL Normal 0.2-1.0 [facility] Comment on above: Performed By: #### E RTRP #### [facility] [address] [place] [address] Basic Panelon 06-09-2019 Creatinine [Mass/Vol] 0.36 mg/dL Low 0.67-1.17 [facility] Comment on above: Performed By: #### G FR #### [facility] [address] [place] [address] Anion gap [Moles/Vol] 11 mmol/L Normal 8-16 [facility] Comment on above: Performed By: #### G FR #### [facility] [address] [place] [address] CO2 [Moles/Vol] 27 mmol/L Normal 21-32 [facility] Comment on above: Performed By: #### G FR #### [facility] [address] [place], [place] [address] Glucose [Mass/Vol] 160 mg/dL High 70-99 [facility] Comment on above: Performed By: #### G FR #### [facility] [address] [place] [address] Urea nitrogen [Mass/Vol] 5 mg/dL Low 7-18 [facility] Comment on above: Performed By: #### G FR #### [facility] [address] [place], [place] [address] Calcium [Mass/Vol] 8.3 mg/dL Low 8.5-10.1 [facility] Comment on above: Performed By: #### G FR #### [facility] [address] [place] [address] Chloride [Moles/Vol] 98 mmol/L Normal 98-107 [facility] Comment on above: Performed By: #### G FR #### [address] [place], [place] [address] Potassium [Moles/Vol] 3.5 mmol/L Normal 3.5-5.1 [facility] Comment on above: Performed By: #### G FR #### [facility] [address] [place] [id number] Sodium [Moles/Vol] 132 mmol/L Low 136-145 [facility] Comment on above: Performed By: #### G FR #### [facility] [address] [place] [id number] CASE MANAGEMon 06-09-2019 CASE MANAGEM HNO ID: [id number] Author: Jessica (Rn) GILBERTO Lakhani Service: Care Management Author Type: Registered Nurse Type: Care Mgt Progress Note Filed: 11/30/2019 10:10 AM Note Text: CARE MANAGEMENT PROGRESS NOTE SERVICE DATE: 06/09/2019 SERVICE TIME: 4:08 PM LOS: 8 days Spoke with Vee Jurado Palliative care and inquired about [facility] Detectives to find patients Brothers phone numbers. One is in [place] and the other is in [place]. Call to Utilities And Maintenance Supervisor Mei and she is going to assist with finding relatives and the RN Halina Carroll was going to consult Ethics to see patient and maybe need a guardian to be appointed. Possibly Sahil Garzaradhikachristine patients friend and ex significant other. SIGNATURE: Jessica Lakhani RN PATIENT NAME: Rhoda Hensley DATE: June 09, 2019 TIME: 4:08 PM PAGER/CONTACT #: [phone] [facility] CASE MANAGEM HNO ID: [id number] Author: Jessica LucasRn) GILBERTO Lakhani Service: Care Management Author Type: Registered Nurse Type: Care Mgt Progress Note Filed: 06/09/2019 8:32 AM Note Text: CARE MANAGEMENT PROGRESS NOTE SERVICE DATE: 06/09/2019 SERVICE TIME: 8:19 AM LOS: 8 days Epic reviewed. Patient remains on Vent. No plans at this time of discharging patient. Not following commands this morning. NPO/IVF.[place]ak - TF. On IV Zosyn/Vancomycin/Levaquin . Neuro surgery signed off 06/04/19. [facility] repeat today. Will call [place] to follow for self pay. Call [phone]. SIGNATURE: Jessica Lakhani RN PATIENT NAME: Rhoda Hensley DATE: June 09, 2019 TIME: 8:19 AM PAGER/CONTACT #: [phone] [facility] CONSULTon 06-09-2019 CONSULT HNO ID: [id number] Author: Sally Robles Service: Bioethics Author Type: Bioethicist Type: Consults Filed: 06/09/2019 4:36 PM Note Text: ETHICS CONSULTATION NOTE SERVICE DATE: 06/09/2019 SERVICE TIME: 3:00PM CONSULT REQUESTER: Tile Grader: Jessica Lakhani RN ETHICS QUESTION: What is an ethically supportable decision-making process for a patient that lacks decision-making capacity and for whom the team has yet to identify an authorized surrogate decision-maker? ETHICS RECOMMENDATIONS: 1. Utilize the [facility] Patients without Surrogates Standard Operating Procedure (SOP) for decisions regarding Mr. Schaeffer care until either he regains decision-making capacity or an authorized surrogate is identified. 2. Continue rigorous efforts to contact Mr. Hensley's brothers. 3. Assess Mr. Kingsley's willingness to be part of the decision-making process regarding Mr. Schaeffer care. Specifically, would he be willing to share information with the medical team about Mr. Sorianos values/preferences that would guide decision-making per the Patients without Surrogates SOP or engage in a shared decision-making process with an authorized surrogate. ETHICS DISCUSSION AND ANALYSIS: Rec 1: [facility] Patients without Surrogates Standard Operating [...] SOP, all three categories require that a Utilities And Maintenance Supervisor continue (and document) rigorous efforts to identify a surrogate, which is being done in this case. Given the information given by Mr. Hensley's friend Remigio Kingsley, next steps including attempting to obtain contact information and speak to Mr. Hensley's brothers to assess whether they are able to and willing to serve in the capacity of Mr. Sorianos surrogates. Rec 3: While Mr. Kingsley is not an authorized surrogate, he knows Mr. Hensley and may be able to provide information that would guide a treatment plan consistent with Mr. Hensley's preferences and values. BACKGROUND: Process Steps: Ethics consult executive team leader Joanne Jurado spoke with Tile Grader Jessica Lakhani. Briefly reviewed EMR. Ethically Relevant Medical Information: Code Status: Full Code by Default Capacity/Decision-Making Considerations: Lacks decision-making capacity Advance Directives/Family/Support System: A former partner, Sahil Kingsley #[phone], is listed as an emergency contact. Per Mr. Kingsley, Mr. Hensley has two brothers, but the team has [...] Robles JD (Bioethics Staff) PATIENT NAME: Rhoda Hensley DATE: June 09, 2019 TIME: 3:28 PM PAGER/CONTACT #: [phone] [facility] CT BRAIN WO IVCONon 06-09-20 CT BRAIN WO IVCON * * *Final Report* * * DATE OF EXAM: Jun 09 2019 4:39AM [facility] 0504 - CT BRAIN WO IVCON / [...] cerebri subdural hemorrhage is unchanged. Unchanged negligible atqm-ov-lwpsd midline shift. Pharmacy Delivery Driver: HUGO Transcribe Date/Time: Jun 09 2019 4:48A Dictated by : OLLIE SAMUEL MD This examination was interpreted and the report reviewed and electronically signed by: OLLIE SAMUEL MD on Jun 09 2019 4:58AM EST Normal [facility] Hemogram/Diffon 06-09-2019 Abs Immature Grans 0.42 thou/cmm High 0.00-0.05 [facility] Comment on above: Performed By: #### G FR #### [place] [address] Abs Neut (ANC) 11.63 thou/cmm High 1.78-5.38 [facility] Comment on above: Performed By: #### G FR #### [place] [address] Abs. Baso 0.09 thou/cmm High 0.01-0.08 [facility] Comment on above: Result Comment: Smea r scanned; tech agrees with automated differential Performed By: #### G FR #### [place] [address] Abs. [place] 2.15 thou/cmm High 0.30-0.82 [facility] Comment on above: Performed By: #### G FR #### [place] [address] Basophils/100 WBC (Bld) 0.6 % Normal [facility] Comment on above: Performed By: #### G FR #### [place] [address] Eosinophils (Bld) [#/Vol] 0.16 thou/cmm Normal 0.04-0.54 [facility] Comment on above: Performed By: #### G FR #### [place] [address] Eosinophils/100 WBC (Bld) 1.0 % Normal [facility] Comment on above: Performed By: #### G FR #### [facility] [address] [place], [place] [address] Immature Grans 2.70 % Normal [facility] Comment on above: Performed By: #### G FR #### [facility] [address] [place] [address] Lymphocytes (Bld) [#/Vol] 1.26 thou/cmm Normal 0.84-2.85 [facility] Comment on above: Performed By: #### G FR #### [facility] [address] [place] [address] Lymphocytes/100 WBC (Bld) 8.0 % Normal [facility] Comment on above: Performed By: #### G FR #### [facility] [address] [place] [address] Monocytes/100 WBC (Bld) 13.7 % Normal [facility] Comment on above: Performed By: #### G FR #### [facility] [address] [place] [address] Seg Neutrophil 74.0 % Normal [facility] Comment on above: Performed By: #### G FR #### [facility] [address] [place] [address] Erythrocyte distribution width (RBC) [Ratio] 14.3 % Normal 11.6-14.4 [facility] Comment on above: Performed By: #### G FR #### [facility] [address] [place] [address] Hematocrit (Bld) [Volume fraction] 37.1 % Low 40.1-51.0 [facility] Comment on above: Performed By: #### G FR #### [facility] [address] [place] [address] Hemoglobin (Bld) [Mass/Vol] 12.6 g/dL Low 13.7-17.5 [facility] Comment on above: Performed By: #### G FR #### [facility] [address] [place] [address] MCH (RBC) [Entitic mass] 32.7 pg High 25.7-32.2 [facility] Comment on above: Performed By: #### G FR #### [facility] [address] [place] [address] MCHC (RBC) [Mass/Vol] 34.0 % Normal 32.3-36.5 [facility] Comment on above: Performed By: #### G FR #### [facility] [address] [place] [address] MCV (RBC) [Entitic vol] 96.4 fL High 83.2-95.6 [facility] Comment on above: Performed By: #### G FR #### [facility] [address] [place] [address] Platelet mean volume (Bld) [Entitic vol] 8.7 fL Normal 8.7-12.0 [facility] Comment on above: Performed By: #### G FR #### [facility] [address] [place] [address] Platelets (Bld) [#/Vol] 537 thou/cmm High 141-365 [facility] Comment on above: Performed By: #### G FR #### [facility] [address] [place] [address] RBC (Bld) [#/Vol] 3.85 mil/cmm Low 4.63-6.08 [facility] Comment on above: Performed By: #### G FR #### [facility] [address] [place] [address] RDW SD 51.0 fl High 36.1-45.8 [facility] Comment on above: Performed By: #### G FR #### [facility] [address] [place] [address] WBC (Bld) [#/Vol] 15.72 thou/cmm High 4.23-9.07 [facility] Comment on above: Performed By: #### G FR #### [facility] [address] [place] [address] Magnesium Bloodon 06-09-2019 Magnesium [Mass/Vol] 1.7 mg/dL Normal 1.6-2.6 [facility] Comment on above: Performed By: #### G FR #### [place] [id number] NURSING PROGon 06-09-2019 NURSING PROG HNO ID: [id number] Author: Radhika LucasRn) GILBERTO Worthy Service: Nursing Author Type: Registered Nurse Type: Nursing Progress Note Filed: 06/09/2019 9:10 PM Note Text: Nursing Progress: Topic: RESTRAINT NON-VIOLENT PATIENT NAME: Rhoda Hensley PATIENT LOCATION: [place] [address] [address]* The patient demonstrates Attempting to Remove Medical [...] 2019 TIME: 9:10 PM Radhika Worthy RN [facility] NURSING PROG HNO ID: [id number] Author: Halina LucasRn) GILBERTO Carroll Service: Nursing Author Type: Registered Nurse Type: Nursing Progress Note Filed: 06/09/2019 7:53 AM Note Text: Nursing Progress: Topic: RESTRAINT NON-VIOLENT PATIENT NAME: Rhoda Hensley PATIENT LOCATION: [place] [address] [address]* The patient demonstrates Confusion, Attempting to Remove [...] TIME: 7:53 AM Halina Carroll RN [facility] Phosphorus Bloodon 9 Phosphate [Mass/Vol] 2.4 mg/dL Low 2.5-4.9 [facility] Comment on above: Performed By: #### G FR #### [facility] [address] [place], [place] [address] XR CHEST 1V FRONTAL PORTon 1 XR [...] cardiomediastinal silhouette. Other: . IMPRESSION: Stable appearance. Pharmacy Delivery Driver: PSCHair Transcribe Date/Time: Jun 09 2019 7:07A Dictated by : KRUNAL CHONG MD This examination was interpreted and the report reviewed and electronically signed by: KRUNAL CHONG MD on Jun 09 2019 7:08AM EST Normal [facility] Basic Panelon 06-08-2019 Creatinine [Mass/Vol] 0.37 mg/dL Low 0.67-1.17 [facility] Comment on above: Performed By: #### A MY #### [place] [address] Anion gap [Moles/Vol] 12 mmol/L Normal 8-16 [facility] Comment on above: Performed By: #### A MY #### [address], [place] [address] Calcium [Mass/Vol] 8.5 mg/dL Normal 8.5-10.1 [facility] Comment on above: Performed By: #### A MY #### [facility] [address] [place], [place] [address] CO2 [Moles/Vol] 31 mmol/L Normal 21-32 [facility] Comment on above: Performed By: #### A MY #### [facility] [address] [place], [place] [address] Glucose [Mass/Vol] 161 mg/dL High 70-99 [facility] Comment on above: Performed By: #### A MY #### [facility] [address] [place], [place] [address] Urea nitrogen [Mass/Vol] 5 mg/dL Low 7-18 [facility] Comment on above: Performed By: #### A MY #### [place] [address] Chloride [Moles/Vol] 93 mmol/L Low 98-107 [facility] Comment on above: Performed By: #### A MY #### [address] [address] Potassium [Moles/Vol] 3.6 mmol/L Normal 3.5-5.1 [facility] Comment on above: Performed By: #### A MY #### [address] [address] Sodium [Moles/Vol] 132 mmol/L Low 136-145 [facility] Comment on above: Performed By: #### A MY #### [address] [address] ECG COMPLETEon 06-08-2019 ECG COMPLETE NAME : JONI HENSLEY PID : [id number] : 1970 Gender : Male Race : ORD : [id number] Procedure Date : Jun 08 2019 04:14:50 Edit Date : Jun 12 2019 06:08:08 Diagnosis:NORMAL SINUS RHYTHM T WAVE ABNORMALITY, CONSIDER ANTERIOR ISCHEMIA ABNORMAL ECG Confirmed by MD RAISSA, DORIS ([id number]) on 06/12/2019 6:08:05 AM Ventricular Rate : 87 BPM Atrial Rate : 87 BPM P-R Interval : 124 ms QRS Duration : 88 ms Q-T Interval : 354 ms QTC Calculation(Bazett) : 425 ms P [place] : 75 degrees R [place] : 78 degrees T [place] : 76 degrees Test Reason : Arrhythmia Location : 4 : [place] [address] Overread By : MD HAJI CANDACE Edited By : MD HAJI CANDACE Referred By : , Acquired by : DANTE VALENCIA [facility] Hemogram/Diffon 06-08-2019 Abs Immature Grans 0.29 thou/cmm High 0.00-0.05 [facility] Comment on above: Performed By: #### A MY #### [place] [address] Abs Neut (ANC) 14.44 thou/cmm High 1.78-5.38 [facility] Comment on above: Performed By: #### A MY #### [place] [address] Abs. Baso 0.05 thou/cmm Normal 0.01-0.08 [facility] Comment on above: Performed By: #### A MY #### [place] [address] Abs. [place] 2.12 thou/cmm High 0.30-0.82 [facility] Comment on above: Performed By: #### A MY #### [place] [address] Basophils/100 WBC (Bld) 0.3 % Normal [facility] Comment on above: Performed By: #### A MY #### [place] [address] Eosinophils (Bld) [#/Vol] 0.05 thou/cmm Normal 0.04-0.54 [facility] Comment on above: Performed By: #### A MY #### [place] [address] Eosinophils/100 WBC (Bld) 0.3 % Normal [facility] Comment on above: Performed By: #### A MY #### [address] [place], [place] [address] Immature Grans 1.60 % Normal [facility] Comment on above: Performed By: #### A MY #### [facility] [address] [place] [address] Lymphocytes (Bld) [#/Vol] 1.04 thou/cmm Normal 0.84-2.85 [facility] Comment on above: Performed By: #### A MY #### [facility] [address] [place], [place] [address] Lymphocytes/100 WBC (Bld) 5.8 % Normal [facility] Comment on above: Performed By: #### A MY #### [facility] [address] [place] [address] Monocytes/100 WBC (Bld) 11.8 % Normal [facility] Comment on above: Performed By: #### A MY #### [place] [address] Seg Neutrophil 80.2 % Normal [facility] Comment on above: Performed By: #### A MY #### [place] [address] Erythrocyte distribution width (RBC) [Ratio] 13.9 % Normal 11.6-14.4 [facility] Comment on above: Performed By: #### A MY #### [place] [address] Hematocrit (Bld) [Volume fraction] 40.1 % Normal 40.1-51.0 [facility] Comment on above: Performed By: #### A MY #### [place] [address] Hemoglobin (Bld) [Mass/Vol] 13.2 g/dL Low 13.7-17.5 [facility] Comment on above: Performed By: #### A MY #### [place] [address] MCH (RBC) [Entitic mass] 32.4 pg High 25.7-32.2 [facility] Comment on above: Performed By: #### A MY #### [address] [address] MCHC (RBC) [Mass/Vol] 32.9 % Normal 32.3-36.5 [facility] Comment on above: Performed By: #### A MY #### [place] [address] MCV (RBC) [Entitic vol] 98.5 fL High 83.2-95.6 [facility] Comment on above: Performed By: #### A MY #### [place] [address] Platelet mean volume (Bld) [Entitic vol] 8.8 fL Normal 8.7-12.0 [facility] Comment on above: Performed By: #### A MY #### [place] [address] Platelets (Bld) [#/Vol] 450 thou/cmm High 141-365 [facility] Comment on above: Performed By: #### A MY #### [place] [address] RBC (Bld) [#/Vol] 4.07 mil/cmm Low 4.63-6.08 [facility] Comment on above: Performed By: #### A MY #### [place] [address] RDW SD 51.2 fl High 36.1-45.8 [facility] Comment on above: Performed By: #### A MY #### [place] [address] WBC (Bld) [#/Vol] 18.00 thou/cmm High 4.23-9.07 [facility] Comment on above: Performed By: #### A MY #### [place] [address] Magnesium Bloodon 06-08-2019 Magnesium [Mass/Vol] 1.9 mg/dL Normal 1.6-2.6 [facility] Comment on above: Performed By: #### G FR #### [place] [address] NURSING PROGon 06-08-2019 NURSING PROG HNO ID: [id number] Author: Radhika LucasRn) GILBERTO Worthy Service: Nursing Author Type: Registered Nurse Type: Nursing Progress Note Filed: 06/08/2019 7:34 PM Note Text: Nursing Progress: Topic: RESTRAINT NON-VIOLENT PATIENT NAME: Rhoda Hensley PATIENT LOCATION: [place] [address] [address]* The patient demonstrates Confusion, Attempting to Remove [...] 2019 TIME: 7:34 PM Radhika Worthy RN [facility] [id number] Author: Halina LucasRn) GILBERTO Carroll Service: Nursing [...] new orders from Dr. Andreas cordova rn [facility] NURSING PROG HNO ID: [id number] Author: Mynor LucasRn) GILBERTO Hernandez Service: ? Author Type: Registered Nurse Type: Nursing Progress Note Filed: 06/08/2019 8:32 AM Note Text: Nursing Progress: Topic: RESTRAINT NON-VIOLENT PATIENT NAME: Rhoda Hensley PATIENT LOCATION: [id number]/[id number]* The patient demonstrates Inability to Retain Information [...] 2019 TIME: 8:00 AM Mynor Hernandez RN [facility] NURSING PROG HNO ID: [id number] Author: Radhika (Rn) GILBERTO Worthy Service: Nursing Author Type: Registered Nurse Type: Nursing Progress Note Filed: 06/07/2019 10:50 PM Note Text: Nursing Progress: Topic: RESTRAINT NON-VIOLENT PATIENT NAME: Rhoda Hensley PATIENT LOCATION: [id number]/[facility]* The patient demonstrates Inability to Retain Information [...] 2019 TIME: 10:49 PM Radhika Worthy RN [facility] PROGRESSon 06-08-2019 PROGRESS HNO ID: [id number] Author: Lakesha Wikles Service: Critical Care Author Type: Physician Type: [...] Max:38.4 ?C (101.1 ?F) Date 06/07/19699 - 06/08/19 0606/08/19 07 - 06/09/19 0659 Shift 0638-1835 4261-8314 6224-4119 24 Hour Total 3860-1075 6952-1265 7441-4961 24 Hour Total INTAKE IV 750 1093.3 [...] 750 1643.3 692.6 3085.9 OUTPUT Urine 1425 228 832 5973 Urine Incontinence/Not Saved 1 x 1 x Output ( External Collection Device 06/04/191999) 1425 107 693 7723 Tubes 2979 307 6369 Output (GI Feed 06/07/19 0920 Gastric Mouth) 0408 129 1062 Shift Total 2925 2845 789 6942 Weight (kg) 69.8 69.8 69.8 69.8 69.8 [...] Control:?tylenol, oxycodone, morphine prn, lidoderm patch - Sedation:propofol,?seroqu el BID - melatonin - Seizure ppx:?keppra - [...] questions or concerns Mon-Fri 6a-5p please page [phone]. After 5pm and on Weekends and Holidays, please page [phone]. SIGNATURE: Reginaldo Johns MD PATIENT NAME: Rhoda Hensley DATE: June 08, 2019 TIME: 6:12 AM PAGER: above As above Remains on Propofol due to restlessness OG placed for high gastric content Started on Reglan QTc 425 Plan: Vent support IV antibiotics Clamp OG tube Restart TF via Corpak SCD neuro checks Repeat CT in AM Aguero for UOP I provided 35 minutes of [...] fracture of vault of skull, initial encounter ([facility]) (I60.9) Subarachnoid hemorrhage (HCC) (S06.359A) Traumatic left-sided intracerebral hemorrhage with loss of consciousness, initial encounter (HCC) (S02.19XA) Closed fracture of temporal bone, initial encounter (HCC) (S22.32XA) Closed fracture of one rib of left side, initial encounter (E44.1) Malnutrition of mild degree ([facility]) (F10.231) DTs (delirium tremens) ([facility]) (I60.9) SAH (subarachnoid hemorrhage) ([facility]) (R47.01) Aphasia (F31.9) Bipolar affective disorder, remission status unspecified ([facility]) (J96.02) Acute respiratory failure with hypercapnia (HCC) Management included sedation, pain control and [...] SIGNATURE: Lakesha Wilkes MD PATIENT NAME: Rhoda Hensley DATE: June 08, 2019 TIME: 11:54 AM [facility] Phosphorus Bloodon 9 Phosphate [Mass/Vol] 2.2 mg/dL Low 2.5-4.9 [facility] Comment on above: Performed By: #### G FR #### [facility] [address] [place] [address] XR CHEST 1V FRONTALon 2018 XR CHEST [...] bilaterally, possibly due to edema or pneumonia. Pharmacy Delivery Driver: PSCB Transcribe Date/Time: Jun 08 2019 8:43A Dictated by : JOSELUIS MOISE MD This examination was interpreted and the report reviewed and electronically signed by: JOSELUIS MOISE MD on Jun 08 2019 8:45AM EST Normal [facility] Basic Panelon 06-07-2019 Creatinine [Mass/Vol] 0.35 mg/dL Low 0.67-1.17 [facility] Comment on above: Performed By: #### L IP #### [facility] [address] [place], [place] [address] Anion gap [Moles/Vol] 10 mmol/L Normal 8-16 [facility] Comment on above: Performed By: #### L IP #### [facility] [address] [place], [place] [address] CO2 [Moles/Vol] 31 mmol/L Normal 21-32 [facility] Comment on above: Performed By: #### L IP #### [facility] [address] [place], [place] [address] Calcium [Mass/Vol] 8.5 mg/dL Normal 8.5-10.1 [facility] Comment on above: Performed By: #### L IP #### [facility] [address] [place], [place] [address] Glucose [Mass/Vol] 143 mg/dL High 70-99 [facility] Comment on above: Performed By: #### L IP #### [facility] [address] [place], [place] [address] Urea nitrogen [Mass/Vol] 6 mg/dL Low 7-18 [facility] Comment on above: Performed By: #### L IP #### [facility] [address] [place], [place] [address] Chloride [Moles/Vol] 90 mmol/L Low 98-107 [facility] Comment on above: Performed By: #### L IP #### [facility] [address] [place], [place] [address] Potassium [Moles/Vol] 4.5 mmol/L Normal 3.5-5.1 [facility] Comment on above: Performed By: #### L IP #### [facility] [address] [place], [place] [address] Sodium [Moles/Vol] 126 mmol/L Low 136-145 [facility] Comment on above: Performed By: #### L IP #### [facility] [address] [place], [place] [address] Blood Gas Arterialon 019 FIO2 Value Not Given Normal [facility] Comment on above: Performed By: #### A MY #### [place] [address] Base Excess 9.7 mmol/L High -3.0-3.0 [facility] Comment on above: Performed By: #### A MY #### [facility] [address] [place] [address] HCO3 (Bld) [Moles/Vol] 34.2 mmol/L High 21.0-28.0 [facility] Comment on above: Performed By: #### A MY #### [facility] [address] [place] [address] O2% Sat Arterial 97.4 % Normal 96.0-100.0 [facility] Comment on above: Performed By: #### A MY #### [facility] [address] [place] [address] PCO2 Arterial 45.3 mm Hg High 35.0-45.0 [facility] Comment on above: Performed By: #### A MY #### [place] [address] pH Arterial 7.491 High 7.350-7.450 [facility] Comment on above: Performed By: #### A MY #### [place] [address] PO2 Arterial 80.3 mm Hg Low 83.0-108.0 [facility] Comment on above: Performed By: #### A MY #### [place] [address] FIO2 Value Not Given Normal [facility] Comment on above: Performed By: #### A MY #### [facility] [address] [place] [address] Base Excess 6.0 mmol/L High -3.0-3.0 [facility] Comment on above: Performed By: #### A MY #### [facility] [address] [place] [address] HCO3 (Bld) [Moles/Vol] 32.3 mmol/L High 21.0-28.0 [facility] Comment on above: Performed By: #### A MY #### [place] [address] O2% Sat Arterial 99.3 % Normal 96.0-100.0 [facility] Comment on above: Performed By: #### A MY #### [facility] [address] [place], [place] [address] PCO2 Arterial 55.8 mm Hg High 35.0-45.0 [facility] Comment on above: Performed By: #### A MY #### [facility] [address] [place], [place] [address] pH Arterial 7.381 Normal 7.350-7.450 [facility] Comment on above: Performed By: #### A MY #### [facility] [address] [place], [place] [address] PO2 Arterial 154.0 mm Hg High 83.0-108.0 [facility] Comment on above: Performed By: #### A MY #### [facility] [address] [place] [address] Base Excess 4.9 mmol/L High -3.0-3.0 [facility] Comment on above: Performed By: #### A MY #### [facility] [address] [place] [address] FIO2 15L Normal [facility] Comment on above: Performed By: #### A MY #### [facility] [address] [place] [address] HCO3 (Bld) [Moles/Vol] 38.7 mmol/L High 21.0-28.0 [facility] Comment on above: Performed By: #### A MY #### [facility] [address] [place] [address] O2% Sat Arterial 95.2 % Low 96.0-100.0 [facility] Comment on above: Performed By: #### A MY #### [facility] [address] [place], [place] [address] PCO2 Arterial 113.0 mm Hg Critically high 35.0-45.0 [facility] Comment on above: Performed By: #### A MY #### [facility] [address] [place], [place] [address] pH Arterial 7.162 Critically low 7.350-7.450 [facility] Comment on above: Performed By: #### A MY #### [facility] [address] [place] [address] PO2 Arterial 93.5 mm Hg Normal 83.0-108.0 [facility] Comment on above: Performed By: #### A MY #### [facility] [address] [place] [address] Hemogram/Diffon 06-07-2019 Abs Immature Grans 0.32 thou/cmm High 0.00-0.05 [facility] Comment on above: Performed By: #### L IP #### [facility] [address] [place] [address] Abs Neut (ANC) 18.05 thou/cmm High 1.78-5.38 [facility] Comment on above: Performed By: #### L IP #### [facility] [address] [place] [address] Abs. Baso 0.09 thou/cmm High 0.01-0.08 [facility] Comment on above: Performed By: #### L IP #### [facility] [address] [place] [address] Abs. [place] 2.02 thou/cmm High 0.30-0.82 [facility] Comment on above: Performed By: #### L IP #### [facility] [address] [place] [address] Basophils/100 WBC (Bld) 0.4 % Normal [facility] Comment on above: Performed By: #### L IP #### [facility] [address] [place] [address] Eosinophils (Bld) [#/Vol] 0.06 thou/cmm Normal 0.04-0.54 [facility] Comment on above: Performed By: #### L IP #### [facility] [address] [place] [address] Eosinophils/100 WBC (Bld) 0.3 % Normal [facility] Comment on above: Performed By: #### L IP #### [place] [address] Immature Grans 1.50 % Normal [facility] Comment on above: Performed By: #### L IP #### [facility] [address] [place], [place] [address] Lymphocytes (Bld) [#/Vol] 0.74 thou/cmm Low 0.84-2.85 [facility] Comment on above: Performed By: #### L IP #### [facility] [address] [place], [place] [address] Lymphocytes/100 WBC (Bld) 3.5 % Normal [facility] Comment on above: Performed By: #### L IP #### [facility] [address] [place], [place] [address] Monocytes/100 WBC (Bld) 9.5 % Normal [facility] Comment on above: Performed By: #### L IP #### [facility] [address] [place], [place] [address] Seg Neutrophil 84.8 % Normal [facility] Comment on above: Performed By: #### L IP #### [facility] [address] [place], [place] [address] Erythrocyte distribution width (RBC) [Ratio] 13.5 % Normal 11.6-14.4 [facility] Comment on above: Performed By: #### L IP #### [facility] [address] [place], [place] [address] Hematocrit (Bld) [Volume fraction] 43.6 % Normal 40.1-51.0 [facility] Comment on above: Performed By: #### L IP #### [facility] [address] [place], [place] [address] Hemoglobin (Bld) [Mass/Vol] 14.3 g/dL Normal 13.7-17.5 [facility] Comment on above: Performed By: #### L IP #### [facility] [address] [place] [address] MCH (RBC) [Entitic mass] 32.7 pg High 25.7-32.2 [facility] Comment on above: Performed By: #### L IP #### [facility] [address] [place] [address] MCHC (RBC) [Mass/Vol] 32.8 % Normal 32.3-36.5 [facility] Comment on above: Performed By: #### L IP #### [facility] [address] [place] [address] MCV (RBC) [Entitic vol] 99.8 fL High 83.2-95.6 [facility] Comment on above: Performed By: #### L IP #### [facility] [address] [place] [address] Platelet mean volume (Bld) [Entitic vol] 8.7 fL Normal 8.7-12.0 [facility] Comment on above: Performed By: #### L IP #### [facility] [address] [place] [address] Platelets (Bld) [#/Vol] 360 thou/cmm Normal 141-365 [facility] Comment on above: Performed By: #### L IP #### [place] [address] RBC (Bld) [#/Vol] 4.37 mil/cmm Low 4.63-6.08 [facility] Comment on above: Performed By: #### L IP #### [facility] [address] [place] [address] RDW SD 50.1 fl High 36.1-45.8 [facility] Comment on above: Performed By: #### L IP #### [facility] [address] [place] [address] WBC (Bld) [#/Vol] 21.28 thou/cmm High 4.23-9.07 [facility] Comment on above: Performed By: #### L IP #### [facility] [address] [place] [address] Ionized Calciumon 06-07-2019 Ionized Ca,PH7.4 4.17 mg/dL Low 4.61-5.17 [facility] Comment on above: Performed By: #### L IP #### [facility] [address] [place] [address] pH (Bld) 7.402 [pH] Normal 7.320-7.430 [facility] Comment on above: Performed By: #### L IP #### [facility] [address] [place], [place] [address] Ionized Calcium 4.16 mg/dL Low 4.61-5.17 [facility] Comment on above: Performed By: #### L IP #### [facility] [address] [place], [place] [address] Magnesium Bloodon 06-07-2019 Magnesium [Mass/Vol] 1.8 mg/dL Normal 1.6-2.6 [facility] Comment on above: Performed By: #### L IP #### [facility] [address] [place], [place] [address] NURSING PROGon 06-07-2019 NURSING PROG HNO ID: [id number] Author: Halina LucasRn) GILBERTO Carroll Service: Nursing Author Type: Registered Nurse Type: Nursing Progress Note Filed: 06/07/2019 7:30 AM Note Text: Nursing Progress: Topic: RESTRAINT NON-VIOLENT PATIENT NAME: Rhoda Hensley PATIENT LOCATION: [place] [address]/[place] [address]* The patient demonstrates Attempting to Remove Medical [...] 2019 TIME: 7:30 AM Halina Carroll RN [facility] NURSING PROG HNO ID: [id number] Author: Halina Gomez) GILBERTO Carroll Service: Nursing [...] SBP >200 - lopressor given Tamia MACIAS [facility] PROGRESSon 06-07-2019 PROGRESS HNO ID: [id number] Author: Lakesha Wilkes Service: Trauma Author Type: [...] 0659 06/07/19 07 - 06/08/19 0659 Shift 2533-0273 5598-5755 1900-9260 24 Hour Total 7713-6677 5630-3540 1055-4541 24 Hour Total INTAKE IV 387 825 755 4173 IVPB 200 20 220 NS 0.9% 20 20 316 356 Zosyn IV 200 100 300 Dexmedetomidine IV 167 36 165 368 Irrigants 260 160 130 550 Irrigant/Flush Amount In (GI Feed 06/02/19 1446 Gastric Right Naris 12 Fr) 260 160 130 550 Gastric Tube 603 384 290 5814 Tube Feed Intake (I/O) (GI Feed 06/02/19 1446 Gastric Right Naris 12 Fr) 603 352 021 9225 Shift Total 1555 458 1447 3068 OUTPUT Urine 200 320 900 4132 Urine Incontinence/Not Saved 2 x 2 x Output ( External Collection Device 06/04/191999) 200 519 222 5824 # of BMs Number of BMs 0 x 0 x 0 x Shift Total 200 954 275 3926 Weight (kg) 69.8 69.8 69.8 69.8 69.8 [...] Tobacco Use Disorder Personal history of alcoholism ([facility]) Depression Tremor Gerd (Gastroesophageal Reflux Disease) Bipolar Affective Disorder ([facility]) Epilepsy ([facility]) Pain of Upper Abdomen Subdural Hematoma ([facility]) Dts (Delirium Tremens) ([facility]) Sah (Subarachnoid Hemorrhage) ([facility]) Closed Fracture of One Rib of Left Side Closed Fracture of Vault of Skull ([facility]) Aphasia Malnutrition of Mild Degree ([facility]) Neuro: - Pain Control:?tylenol, oxycodone, morphine prn - Sedation:?precedex,?seroq uel BID,?ativan prn - melatonin - Seizure ppx:?keppra [...] Renal: - external catheter, may need a aguero given retention and need for straight catheterization [...] questions or concerns Mon-Fri 6a-5p please page [phone]. After 5pm and on Weekends and Holidays, please page [phone]. SIGNATURE: Reginaldo Johns MD PATIENT NAME: Rhoda Hensley DATE: June 07, 2019 TIME: 6:13 AM [...] fracture of vault of skull, initial encounter ([facility]) (I60.9) Subarachnoid hemorrhage (HCC) (S06.359A) Traumatic left-sided intracerebral hemorrhage with loss of consciousness, initial encounter ([facility]) (S02.19XA) Closed fracture of temporal bone, initial encounter ([facility]) (S22.32XA) Closed fracture of one rib of left side, initial encounter (E44.1) Malnutrition of mild degree ([facility]) (F10.231) DTs (delirium tremens) ([facility]) (I60.9) SAH (subarachnoid hemorrhage) ([facility]) (R47.01) Aphasia (F31.9) Bipolar affective disorder, remission status unspecified ([facility]) (J96.02) Acute respiratory failure with hypercapnia (HCC) Management included sedation, pain control and [...] SIGNATURE: Lakesha Wilkes MD PATIENT NAME: Rhoda Hensley DATE: June 07, 2019 TIME: 1:02 PM [facility] Phosphorus Bloodon 9 Phosphate [Mass/Vol] 3.2 mg/dL Normal 2.5-4.9 [facility] Comment on above: Performed By: #### A MY #### [facility] [address] [place] [address] XR CHEST 1V FRONTALon 2018 XR CHEST [...] zone, possibly due to atelectasis or consolidation. Pharmacy Delivery Driver: HUGO Transcribe Date/Time: Jun 07 2019 9:59A Dictated by : JOSELUIS MOISE MD This examination was interpreted and the report reviewed and electronically signed by: JOSELUIS MOISE MD on Jun 07 2019 10:07AM EST Normal [facility] XR CHEST 1V FRONTAL * * *Final [...] visualized portions of the indwelling enteric tube. Pharmacy Delivery Driver: HUGO Transcribe Date/Time: Jun 07 2019 8:58A Dictated by : JOSELUIS MOISE MD This examination was interpreted and the report reviewed and electronically signed by: JOSELUIS MOISE MD on Jun 07 2019 8:59AM EST Normal [facility] Basic Panelon 06-06-2019 Creatinine [Mass/Vol] 0.42 mg/dL Low 0.67-1.17 [facility] Comment on above: Performed By: #### L IP #### [place] [address] Anion gap [Moles/Vol] 10 mmol/L Normal 8-16 [facility] Comment on above: Performed By: #### L IP #### [place] [id number] CO2 [Moles/Vol] 29 mmol/L Normal 21-32 [facility] Comment on above: Performed By: #### L IP #### [facility] [address] [place], [place] [address] Glucose [Mass/Vol] 146 mg/dL High 70-99 [facility] Comment on above: Performed By: #### L IP #### [facility] [address] [place], [place] [address] Urea nitrogen [Mass/Vol] 8 mg/dL Normal 7-18 [facility] Comment on above: Performed By: #### L IP #### [facility] [address] [place], [place] [address] Calcium [Mass/Vol] 8.3 mg/dL Low 8.5-10.1 [facility] Comment on above: Performed By: #### L IP #### [facility] [address] [place], [place] [address] Chloride [Moles/Vol] 96 mmol/L Low 98-107 [facility] Comment on above: Performed By: #### L IP #### [facility] [address] [place], [place] [address] Potassium [Moles/Vol] 3.9 mmol/L Normal 3.5-5.1 [facility] Comment on above: Performed By: #### L IP #### [facility] [address] [place], [place] [address] Sodium [Moles/Vol] 131 mmol/L Low 136-145 [facility] Comment on above: Performed By: #### L IP #### [facility] [address] [place] [address] CASE MANAGEMon 06-06-2019 CASE MANAGEM HNO ID: [id number] Author: Humaira LucasRn) GILBERTO Rainey Service: Care [...] SIGNATURE: Humaira Rainey RN PATIENT NAME: Rhoda Hensely DATE: June 06, 2019 TIME: 11:00 AM PAGER/CONTACT #: [phone] [facility] CONSULT PROGon 06-06-2019 CONSULT PROG HNO ID: [id number] Author: Shama Mathew (Journeyman Powerhouse Operator) Service: Pharmacy Author Type: Pharmacist Type: Consult Progress Note Filed: 06/06/2019 2:09 PM Note Text: PHARMACY VANCOMYCIN DOSING NOTE Patient Name: Rhoda Hensley Admission Date: 06/01/2019 Date of Consult: 06/06/2019 Time of Consult: 2:09 PM Indication: Pneumonia Goal Range: 10-20 mcg/mL RECOMMENDATIONS/PLAN: Pharmacy consulted for vancomycin dosing for Rhoda Hensley, a 49 year old, male who is being treated with vancomycin for possible pneumonia, MRSA nares negative 1. The primary service has discontinued vancomycin therapy. Pharmacy vancomycin dosing service will sign off. Thank you for allowing us to participate in this patient's care. Please contact pharmacy if questions. [facility] CONSULT PROG HNO ID: [id number] Author: Lakesha Wilkes Service: Critical Care Author Type: Physician Type: Consult Progress Note Filed: 06/06/2019 1:05 PM Note Text: INPATIENT SICU PROGRESS NOTE SICU Service Pager: For questions or concerns Mon-Fri 6a-5p please page [phone]. After 5pm and on Weekends and Holidays, please page [phone]. SERVICE DATE: 06/06/2019 Subjective Subjective: This is [...] Max:38.7 ?C (101.7 ?F) Date 06/05/19699 - 06/06/1958 06/06/19 07 - 06/07/19 0659 Shift 2501-9065 9315-0293 6191-1028 24 Hour Total 4538-4832 8750-7688 2193-3447 24 Hour Total INTAKE IV 768.5 768.5 [...] - Pain Control:?tylenol, oxycodone, morphine prn - Sedation:?precedex,?seroq uel BID,?ativan prn - Seizure ppx:?keppra - DTs [...] Renal: - external catheter, may need a aguero given retention and need for straight catheterization [...] (Active) External Collection Device 06/04/19 2000 (Active) ] Consults: trauma, SICU, NSX (s/o) Dispo: - NSICU Patient Checklist Deep vein thrombosis prophylaxis administered? Yes. Stress ulcer prophylaxis? No, not indicated.. Pain addressed? Yes. Nutrition: Enteral- Yes. TPN- No. PO- No. Restraints? Yes. Dispo needs assessed? Yes. SIGNATURE: Henok Kwong DO PATIENT NAME: Rhoda Hensley DATE: June 06, 2019 TIME: 6:21 AM PAGER: below SICU Service Pager: For questions or concerns Mon-Sun 6a-5p please page [phone]. After 5pm and on Weekends and Holidays, please page [phone]. As above Remains in DTs Receiving Ativan, [...] SIGNATURE: Lakesha Wilkes MD PATIENT NAME: Rhoda Hensley DATE: June 06, 2019 TIME: 1:02 PM [facility] CONSULT PROG HNO ID: [id number] Author: Natalia Trujillo (Pharmacist) Service: Pharmacy Author Type: Pharmacist Type: Consult Progress Note Filed: 06/06/2019 3:33 AM Note Text: PHARMACY VANCOMYCIN DOSING NOTE Patient Name: Rhoda Hensley Admission Date: 06/01/2019 Date of Consult: 06/06/2019 Time of Consult: 3:31 AM Indication: Pneumonia Goal Range: 10-20 mcg/mL RECOMMENDATIONS/PLAN: Pharmacy consulted for vancomycin dosing for Rhoda Hensley, a 49 year old, male who is [...] have any questions, [place] [phone]. Age: [age] year old Allergies: ALLERGIES Allergen [...] results found for: KANDI TRUJILLO, PHARMACIST [facility] CT BRAIN WO IVCONon 06-06-[address] BRAIN WO IVCON * * *Final Report* * * DATE OF EXAM: Jun 06 2019 9:54AM [facility] 0504 - CT BRAIN WO IVCON / [...] of minimal left to right midline shift. Pharmacy Delivery Driver: PSCB Transcribe Date/Time: Jun 06 2019 10:08A Dictated by : FANTA HEART MD This examination was interpreted and the report reviewed and electronically signed by: FANTA HEART MD on Jun 06 2019 10:42AM EST Normal [facility] Cult Bloodon 06-06-2019 Cult Blood Test performed at [facility] No growth Normal [facility] Comment on above: Performed By: #### A MY #### [facility] [address] [place] [address] Cult and Smr Respiratoryon 1 Cult and Smr Respiratory Test performed at [facility] Rare normal oropharyngeal scotty present Many Gram positive cocci in clusters Few Gram negative bacilli Few Mixed scotty Moderate Polymorphonuclear leukocytes Moderate Squamous epithelial cells Moderate ORGANISM: *Pseudomonas aeruginosa (ID: 1) Few ORGANISM: *Staphylococcus aureus (ID: 2) Many Oxacillin-susceptible staphylococci are susceptible to other penicillinase-stable penicillins, beta-lactam/beta-lactamas e inhibitor combinations, anti-staphylococcal cephems and carbapenems. ORGANISM: *Enterobacter cloacae (ID: 3) Few Enterobacter, Citrobacter, Serratia and Klebsiella (Enterobacter) aerogenes may develop resistance during prolonged therapy with 3rd-generation cephalosporins as a result of derepression of AmpC beta-lactamase. Therefore, isolates that are initially susceptible may become resistant within 3 or 4 days after initiation of therapy. Testing repeat isolates may be warranted. Normal [facility] Comment on above: Performed By: #### L IP #### [place] [address] Hemogram/Diffon 06-06-2019 Abs Immature Grans 0.20 thou/cmm High 0.00-0.05 [facility] Comment on above: Performed By: #### P 14 #### [place] [address] Abs Neut (ANC) 13.57 thou/cmm High 1.78-5.38 [facility] Comment on above: Performed By: #### P 14 #### [place] [address] Abs. Baso 0.14 thou/cmm High 0.01-0.08 [facility] Comment on above: Result Comment: Smea r scanned; tech agrees with automated differential Performed By: #### P 14 #### [place] [address] Abs. [place] 2.94 thou/cmm High 0.30-0.82 [facility] Comment on above: Performed By: #### P 14 #### [place] [address] Basophils/100 WBC (Bld) 0.8 % Normal [facility] Comment on above: Performed By: #### P 14 #### [facility] [address] [place], [place] [address] Eosinophils (Bld) [#/Vol] 0.07 thou/cmm Normal 0.04-0.54 [facility] Comment on above: Performed By: #### P 14 #### [facility] [address] [place], [place] [address] Eosinophils/100 WBC (Bld) 0.4 % Normal [facility] Comment on above: Performed By: #### P 14 #### [facility] [address] [place], [place] [address] Immature Grans 1.10 % Normal [facility] Comment on above: Performed By: #### P 14 #### [facility] [address] [place], [place] [address] Lymphocytes (Bld) [#/Vol] 1.00 thou/cmm Normal 0.84-2.85 [facility] Comment on above: Performed By: #### P 14 #### [facility] [address] [place], [place] [address] Lymphocytes/100 WBC (Bld) 5.6 % Normal [facility] Comment on above: Performed By: #### P 14 #### [facility] [address] [place], [place] [address] Monocytes/100 WBC (Bld) 16.4 % Normal [facility] Comment on above: Performed By: #### P 14 #### [facility] [address] [place], [place] [address] Seg Neutrophil 75.7 % Normal [facility] Comment on above: Performed By: #### P 14 #### [facility] [address] [place], [place] [address] Erythrocyte distribution width (RBC) [Ratio] 13.6 % Normal 11.6-14.4 [facility] Comment on above: Performed By: #### P 14 #### [facility] [address] [place], [place] [address] Hematocrit (Bld) [Volume fraction] 41.5 % Normal 40.1-51.0 [facility] Comment on above: Performed By: #### P 14 #### [facility] [address] [place] [address] Hemoglobin (Bld) [Mass/Vol] 14.0 g/dL Normal 13.7-17.5 [facility] Comment on above: Performed By: #### P 14 #### [facility] [address] [place] [address] MCH (RBC) [Entitic mass] 33.0 pg High 25.7-32.2 [facility] Comment on above: Performed By: #### P 14 #### [facility] [address] [place] [address] MCHC (RBC) [Mass/Vol] 33.7 % Normal 32.3-36.5 [facility] Comment on above: Performed By: #### P 14 #### [facility] [address] [place] [address] MCV (RBC) [Entitic vol] 97.9 fL High 83.2-95.6 [facility] Comment on above: Performed By: #### P 14 #### [facility] [address] [place] [address] Platelet mean volume (Bld) [Entitic vol] 8.6 fL Low 8.7-12.0 [facility] Comment on above: Performed By: #### P 14 #### [facility] [address] [place] [address] Platelets (Bld) [#/Vol] 287 thou/cmm Normal 141-365 [facility] Comment on above: Performed By: #### P 14 #### [facility] [address] [place] [address] RBC (Bld) [#/Vol] 4.24 mil/cmm Low 4.63-6.08 [facility] Comment on above: Performed By: #### P 14 #### [facility] [address] [place] [address] RDW SD 49.1 fl High 36.1-45.8 [facility] Comment on above: Performed By: #### P 14 #### [facility] [address] [place], [place] [address] WBC (Bld) [#/Vol] 17.93 thou/cmm High 4.23-9.07 [facility] Comment on above: Performed By: #### P 14 #### [facility] [address] [place], [place] [address] Ionized Calciumon 06-06-2019 Ionized Ca,PH7.4 4.41 mg/dL Low 4.61-5.17 [facility] Comment on above: Performed By: #### L IP #### [facility] [address] [place] [address] pH (Bld) 7.367 [pH] Normal 7.320-7.430 [facility] Comment on above: Performed By: #### L IP #### [facility] [address] [place] [address] Ionized Calcium 4.48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 TIME: 10:31 AM Normal [facility] Basic Panelon 06-04-2019 Creatinine [Mass/Vol] 0.38 mg/dL Low 0.67-1.17 [facility] Comment on above: Performed By: #### D RUG3 #### [place] [address] Anion gap [Moles/Vol] 11 mmol/L Normal 8-16 [facility] Comment on above: Performed By: #### D RUG3 #### [facility] [address] [place], [place] [address] CO2 [Moles/Vol] 27 mmol/L Normal 21-32 [facility] Comment on above: Performed By: #### D RUG3 #### [facility] [address] [place], [place] [address] Glucose [Mass/Vol] 93 mg/dL Normal 70-99 [facility] Comment on above: Performed By: #### D RUG3 #### [facility] [address] [place], [place] [address] Urea nitrogen [Mass/Vol] 6 mg/dL Low 7-18 [facility] Comment on above: Performed By: #### D RUG3 #### [address] [address] Calcium [Mass/Vol] 8.5 mg/dL Normal 8.5-10.1 [facility] Comment on above: Performed By: #### D RUG3 #### [facility] [address] [place], [place] [address] Chloride [Moles/Vol] 100 mmol/L Normal 98-107 [facility] Comment on above: Performed By: #### D RUG3 #### [facility] [address] [place], [place] [address] Potassium [Moles/Vol] 3.7 mmol/L Normal 3.5-5.1 [facility] Comment on above: Performed By: #### D RUG3 #### [address] [address] Sodium [Moles/Vol] 134 mmol/L Low 136-145 [facility] Comment on above: Performed By: #### D RUG3 #### [facility] [address] [place], [place] [address] CONSULT PROGon 06-04-2019 CONSULT PROG HNO ID: [id number] Author: Lakesha Wilkes Service: Critical Care Author Type: Physician Type: Consult Progress Note Filed: 06/04/2019 12:52 PM Note Text: INPATIENT SICU PROGRESS NOTE SICU Service Pager: For questions or concerns Mon-Fri 6a-5p please page [phone]. After 5pm and on Weekends and Holidays, please page [phone]. SERVICE DATE: 06/04/2019 Subjective Subjective: This is [...] (96.8 ?F), Max:37.2 ?C (99 ?F) Date 06/03/19 07 - 06/04/19 0659 06/04/19 0700 - 06/05/19 0659 Shift 1513-0072 5295-8911 4747-6702 24 Hour Total 4014-6756 5531-9383 0139-1507 24 Hour Total INTAKE IV 1733 333.7 [...] while agitated - Restraints: Yes Lines: Peripheral 06/03/19 2220 Assessment Short Right Forearm 20 Gauge (Active) [...] SIGNATURE: Henok Kwong DO PATIENT NAME: Rhoda Hensley DATE: June 04, 2019 TIME: 5:57 AM PAGER: below SICU Service Pager: For questions or concerns Mon-Fri 6a-5p please page [phone]. After 5pm and on Weekends and Holidays, please page [phone]. Remains in DTs Does not follow command Agitated at times Cont Precedex drip Ativan TF via [employer] Seroquel to 50 mg BID SCD [...] SIGNATURE: Lakesha Wilkes MD PATIENT NAME: Rhoda Hensley DATE: June 04, 2019 TIME: 12:51 PM Normal [facility] Hemogram/Diffon 06-04-2019 Abs Immature Grans 0.10 thou/cmm High 0.00-0.05 [facility] Comment on above: Performed By: #### D RUG3 #### [place] [address] Abs Neut (ANC) 12.22 thou/cmm High 1.78-5.38 [facility] Comment on above: Performed By: #### D RUG3 #### [place] [address] Abs. Baso 0.04 thou/cmm Normal 0.01-0.08 [facility] Comment on above: Performed By: #### D RUG3 #### [place] [address] Abs. [place] 1.53 thou/cmm High 0.30-0.82 [facility] Comment on above: Performed By: #### D RUG3 #### [facility] [address] [place], [place] [address] Basophils/100 WBC (Bld) 0.3 % Normal [facility] Comment on above: Performed By: #### D RUG3 #### [facility] [address] [place], [place] [address] Eosinophils (Bld) [#/Vol] 0.12 thou/cmm Normal 0.04-0.54 [facility] Comment on above: Performed By: #### D RUG3 #### [facility] [address] [place], [place] [address] Eosinophils/100 WBC (Bld) 0.8 % Normal [facility] Comment on above: Performed By: #### D RUG3 #### [facility] [address] [place], [place] [address] Immature Grans 0.70 % Normal [facility] Comment on above: Performed By: #### D RUG3 #### [facility] [address] [place], [place] [address] Lymphocytes (Bld) [#/Vol] 0.88 thou/cmm Normal 0.84-2.85 [facility] Comment on above: Performed By: #### D RUG3 #### [facility] [address] [place], [place] [address] Lymphocytes/100 WBC (Bld) 5.9 % Normal [facility] Comment on above: Performed By: #### D RUG3 #### [facility] [address] [place], [place] [address] Monocytes/100 WBC (Bld) 10.3 % Normal [facility] Comment on above: Performed By: #### D RUG3 #### [facility] [address] [place], [place] [address] Seg Neutrophil 82.0 % Normal [facility] Comment on above: Performed By: #### D RUG3 #### [facility] [address] [place], [place] [address] Erythrocyte distribution width (RBC) [Ratio] 13.2 % Normal 11.6-14.4 [facility] Comment on above: Performed By: #### D RUG3 #### [facility] [address] [place], [place] [address] Hematocrit (Bld) [Volume fraction] 43.1 % Normal 40.1-51.0 [facility] Comment on above: Performed By: #### Tamera RUG3 #### [facility] [address] [place], [place] [address] Hemoglobin (Bld) [Mass/Vol] 14.6 g/dL Normal 13.7-17.5 [facility] Comment on above: Performed By: #### Tamera RUG3 #### [facility] [address] [place], [place] [address] MCH (RBC) [Entitic mass] 32.7 pg High 25.7-32.2 [facility] Comment on above: Performed By: #### Tamera RUG3 #### [facility] [address] [place], [place] [address] MCHC (RBC) [Mass/Vol] 33.9 % Normal 32.3-36.5 [facility] Comment on above: Performed By: #### Tamera RUG3 #### [facility] [address] [place], [place] [address] MCV (RBC) [Entitic vol] 96.4 fL High 83.2-95.6 [facility] Comment on above: Performed By: #### Tamera RUG3 #### [facility] [address] [place], [place] [address] Platelet mean volume (Bld) [Entitic vol] 9.5 fL Normal 8.7-12.0 [facility] Comment on above: Performed By: #### Tamera RUG3 #### [facility] [address] [place], [place] [address] Platelets (Bld) [#/Vol] 156 thou/cmm Normal 141-365 [facility] Comment on above: Performed By: #### Tamera RUG3 #### [facility] [address] [place], [place] [address] RBC (Bld) [#/Vol] 4.47 mil/cmm Low 4.63-6.08 [facility] Comment on above: Performed By: #### Tamera RUG3 #### [facility] [address] [place] [address] RDW SD 47.5 fl High 36.1-45.8 [facility] Comment on above: Performed By: #### D RUG3 #### [facility] [address] [place] [id number] WBC (Bld) [#/Vol] 14.90 thou/cmm High 4.23-9.07 [facility] Comment on above: Performed By: #### D RUG3 #### [facility] [address] [place] [address] Ionized Calciumon 06-04-2019 Ionized Ca,PH7.4 4.58 mg/dL Low 4.61-5.17 [facility] Comment on above: Performed By: #### D RUG3 #### [facility] [address] [place] [address] pH (Bld) 7.431 [pH] High 7.320-7.430 [facility] Comment on above: Performed By: #### D RUG3 #### [facility] [address] [place] [address] Ionized Calcium 4.50 mg/dL Low 4.61-5.17 [facility] Comment on above: Performed By: #### D RUG3 #### [place] [address] Magnesium Bloodon 06-04-2019 Magnesium [Mass/Vol] 2.1 mg/dL Normal 1.6-2.6 [facility] Comment on above: Performed By: #### D RUG3 #### [place] [address] NURSING PROGon 06-04-2019 NURSING PROG HNO ID: [id number] Author: Kala (Rn) GILBERTO Castorena Service: ? Author Type: Registered Nurse Type: Nursing Progress Note Filed: 06/05/2019 7:32 PM Note Text: Nursing Progress: Topic: RESTRAINT NON-VIOLENT PATIENT NAME: Rhoda Hensley PATIENT LOCATION: [place] [address] [address]* The patient demonstrates Attempting to Remove Medical [...] 2019 TIME: 7:30 PM Kala Castorena RN [facility] NURSING PROG O ID: [id number] Author: Tran Arellano RN Service: Nursing Author Type: Registered Nurse Type: Nursing Progress Note Filed: 06/04/2019 11:16 AM Note Text: Nursing Progress: Topic: RESTRAINT NON-VIOLENT PATIENT NAME: Rhoda Hensley PATIENT LOCATION: [place] [address] [address]* The patient demonstrates Attempting to Remove Medical [...] 2019 TIME: 11:15 AM Tran Arellano RN [id number] Author: Radhika Worthy RN Service: Nursing Author Type: Registered Nurse Type: Nursing Progress Note Filed: 06/03/2019 11:37 PM Note Text: Nursing Progress: Topic: RESTRAINT NON-VIOLENT PATIENT NAME: Rhoda Hensley PATIENT LOCATION: [place] [address] [address]* The patient demonstrates Attempting to Remove Medical [...] 2019 TIME: 11:36 PM Radhika Worthy RN [facility] PROGRESSon 06-04-2019 PROGRESS HNO ID: [id number] Author: Ashley Denney) DESTINI Silver Service: Neurosurgery Author Type: Physician Reinforcing [employer] Machine Operator Type: Progress Notes Filed: 06/04/2019 9:19 [...] Cannula IANDO: Date 06/03/196[address] - 06/04/1965806/04/19699 - 06/05/1958 Shift 9840-8995 6634-5131 0066-3793 24 Hour Total 9546-3466 3242-6350 4297-0073 24 Hour Total INTAKE IV 1733 454.7 [...] Exam: GENERAL: No distress, sedate NEURO: aphasia; benavides well HEENT: normocephalic, atraumatic LUNGS: Unlabored breathing ASSESSMENT AND PLAN: Active Hospital Problems Diagnosis Date Noted - DTs (delirium tremens) ([facility]) 06/02/2019 - SAH (subarachnoid hemorrhage) ([facility]) 06/02/2019 - Closed fracture of one rib of left side 06/02/2019 - Closed fracture of vault of skull ([facility]) 06/02/2019 - Aphasia 06/02/2019 - Subdural hematoma ([facility]) 06/01/2019 - Bipolar affective disorder (HCC) 12/21/2012 Overview Note: Diagnosed in ~1989 49 year old male Left IPH/SDH/SAH with severe aphasia - neuro unchanged - ETOH w/d - nonsurgical mgt - will SO - call if needed SIGNATURE: DESTINI Lobo PATIENT NAME: Rhoda Hensley DATE: June 04, 2019 TIME: 9:17 AM Pager: [phone] [facility] PROGRESS HNO ID: [id number] Author: Raudel Martínez MD Service: Trauma Author Type: Resident Type: Progress Notes Filed: 06/04/2019 6:41 AM Note Text: ----- Attestation signed by Francis Joy at 06/04/2019 11:09 AM I saw and evaluated the patient. Discussed with the resident and agree with resident's findings and plan as documented in the resident's note. Patient is a little less sedated today. Still needs to be restrained. Continue present support. Tolerating tube feeds ----- Trauma Progress Note SERVICE DATE: 06/04/2019 Trauma Service Pager: For questions or concerns Mon-Fri 6a-5p please page [phone]. After 5pm and on Weekends and Holidays, please page [phone] if in ICU or [phone] if on RNF. SUBJECTIVE: Pt remains restless [...] 06/03/[address] - 06/04/1965806/04/19699 - 06/05/19 0659 Shift 0375-8133 6712-6903 1504-7825 24 Hour Total 8183-4169 9918-0500 2615-6841 24 Hour Total INTAKE IV 1733 333.7 [...] Diagnosis Date Noted - DTs (delirium tremens) ([facility]) 06/02/2019 - SAH (subarachnoid hemorrhage) ([facility]) 06/02/2019 - Closed fracture of one rib of left side 06/02/2019 - Closed fracture of vault of skull ([facility]) 06/02/2019 - Aphasia 06/02/2019 - Subdural hematoma ([facility]) 06/01/2019 - Bipolar affective disorder ([facility]) 12/21/2012 Overview Note: Diagnosed in ~1989 49 y/o male found down and brought to outside ED, transferred to [facility] for intracranial bleed.? ? Imaging performed: 1. [...] questions or concerns Mon-Fri 6a-5p please page [phone]. After 5pm and on Weekends and Holidays, please page [phone] if in ICU or [phone] if on RNF. SIGNATURE: Raudel Martínez MD PATIENT NAME: Rhoda Hensley DATE: June 04, 2019 TIME: 6:38 AM Normal [facility] Phosphorus Bloodon 9 Phosphate [Mass/Vol] 2.4 mg/dL Low 2.5-4.9 [facility] Comment on above: Performed By: #### D RUG3 #### [address] [address] Basic Panelon 06-03-2019 Creatinine [Mass/Vol] 0.41 mg/dL Low 0.67-1.17 [facility] Comment on above: Performed By: #### A PTT #### [address] [address] Anion gap [Moles/Vol] 8 mmol/L Normal 8-16 [facility] Comment on above: Performed By: #### A PTT #### [address] [address] CO2 [Moles/Vol] 27 mmol/L Normal 21-32 [facility] Comment on above: Performed By: #### A PTT #### [address] [address] Glucose [Mass/Vol] 103 mg/dL High 70-99 [facility] Comment on above: Performed By: #### A PTT #### [address] [address] Urea nitrogen [Mass/Vol] 2 mg/dL Low 7-18 [facility] Comment on above: Performed By: #### A PTT #### [address] [address] Calcium [Mass/Vol] 8.2 mg/dL Low 8.5-10.1 [facility] Comment on above: Performed By: #### A PTT #### [facility] [address] [place] [address] Chloride [Moles/Vol] 100 mmol/L Normal 98-107 [facility] Comment on above: Performed By: #### A PTT #### [facility] [address] [place] [address] Potassium [Moles/Vol] 3.1 mmol/L Low 3.5-5.1 [facility] Comment on above: Performed By: #### A PTT #### [facility] [address] [place] [address] Sodium [Moles/Vol] 132 mmol/L Low 136-145 [facility] Comment on above: Performed By: #### A PTT #### [place] [address] CASE MANAGEMon 06-03-2019 CASE MANAGEM HNO ID: [id number] Author: Stephanie Iverson (Sw) Service: Care Management Author Type: Utilities And Maintenance Supervisor Type: Care Mgt Progress Note Filed: 06/03/2019 10:24 AM Note Text: CARE MANAGEMENT PROGRESS NOTE SERVICE DATE: 06/03/2019 SERVICE TIME: 10:23 AM LOS: 2 days Per staff, patietn appears to beb going thru alcohol withdrawal and unable to answer questions at this time. MERARI/SHANNON will continue to follow SIGNATURE: LUZ MARIA Hoffman PATIENT NAME: Rhoda Hensley DATE: June 03, 2019 TIME: 10:23 AM PAGER/CONTACT #: [phone] Normal [facility] Hemogram/Diffon 06-03-2019 Abs Immature Grans 0.09 thou/cmm High 0.00-0.05 [facility] Comment on above: Performed By: #### A PTT #### [facility] [address] [place] [address] Abs Neut (ANC) 11.12 thou/cmm High 1.78-5.38 [facility] Comment on above: Performed By: #### A PTT #### [place] [address] Abs. Baso 0.03 thou/cmm Normal 0.01-0.08 [facility] Comment on above: Performed By: #### A PTT #### [facility] [address] [place], [place] [address] Abs. [place] 0.93 thou/cmm High 0.30-0.82 [facility] Comment on above: Performed By: #### A PTT #### [facility] [address] [place], [place] [address] Basophils/100 WBC (Bld) 0.2 % Normal [facility] Comment on above: Performed By: #### A PTT #### [facility] [address] [place], [place] [address] Eosinophils (Bld) [#/Vol] 0.05 thou/cmm Normal 0.04-0.54 [facility] Comment on above: Performed By: #### A PTT #### [facility] [address] [place], [place] [address] Eosinophils/100 WBC (Bld) 0.4 % Normal [facility] Comment on above: Performed By: #### A PTT #### [facility] [address] [place], [place] [address] Immature Grans 0.70 % Normal [facility] Comment on above: Performed By: #### A PTT #### [address] [address] Lymphocytes (Bld) [#/Vol] 0.66 thou/cmm Low 0.84-2.85 [facility] Comment on above: Performed By: #### A PTT #### [facility] [address] [place], [place] [address] Lymphocytes/100 WBC (Bld) 5.1 % Normal [facility] Comment on above: Performed By: #### A PTT #### [facility] [address] [place], [place] [address] Monocytes/100 WBC (Bld) 7.2 % Normal [facility] Comment on above: Performed By: #### A PTT #### [address] [address] Seg Neutrophil 86.4 % Normal [facility] Comment on above: Performed By: #### A PTT #### [facility] [address] [place] [address] Erythrocyte distribution width (RBC) [Ratio] 13.5 % Normal 11.6-14.4 [facility] Comment on above: Performed By: #### A PTT #### [facility] [address] [place] [address] Hematocrit (Bld) [Volume fraction] 42.6 % Normal 40.1-51.0 [facility] Comment on above: Performed By: #### A PTT #### [facility] [address] [place] [address] Hemoglobin (Bld) [Mass/Vol] 14.3 g/dL Normal 13.7-17.5 [facility] Comment on above: Performed By: #### A PTT #### [place] [address] MCH (RBC) [Entitic mass] 32.6 pg High 25.7-32.2 [facility] Comment on above: Performed By: #### A PTT #### [place] [address] MCHC (RBC) [Mass/Vol] 33.6 % Normal 32.3-36.5 [facility] Comment on above: Performed By: #### A PTT #### [place] [address] MCV (RBC) [Entitic vol] 97.0 fL High 83.2-95.6 [facility] Comment on above: Performed By: #### A PTT #### [place] [address] Platelet mean volume (Bld) [Entitic vol] 9.6 fL Normal 8.7-12.0 [facility] Comment on above: Performed By: #### A PTT #### [facility] [address] [place], [place] [address] Platelets (Bld) [#/Vol] 141 thou/cmm Normal 141-365 [facility] Comment on above: Performed By: #### A PTT #### [facility] [address] [place], [place] [address] RBC (Bld) [#/Vol] 4.39 mil/cmm Low 4.63-6.08 [facility] Comment on above: Performed By: #### A PTT #### [facility] [address] [place], [place] [address] RDW SD 48.7 fl High 36.1-45.8 [facility] Comment on above: Performed By: #### A PTT #### [facility] [address] [place] [address] WBC (Bld) [#/Vol] 12.87 thou/cmm High 4.23-9.07 [facility] Comment on above: Performed By: #### A PTT #### [place] [address] Ionized Calciumon 06-03-2019 Ionized Ca,PH7.4 4.56 mg/dL Low 4.61-5.17 [facility] Comment on above: Performed By: #### A PTT #### [facility] [address] [place], [place] [address] pH (Bld) 7.421 [pH] Normal 7.320-7.430 [facility] Comment on above: Performed By: #### A PTT #### [address] [address] Ionized Calcium 4.51 mg/dL Low 4.61-5.17 [facility] Comment on above: Performed By: #### A PTT #### [address] [address] Magnesium Bloodon 06-03-2019 Magnesium [Mass/Vol] 1.7 mg/dL Normal 1.6-2.6 [facility] Comment on above: Performed By: #### A PTT #### [address] [address] NURSING PROGon 06-03-2019 NURSING PROG HNO ID: [id number] Author: Davy LucasRn) GILBERTO Guillen Service: ? [...] unable to communicate or respond to commands. Insurance Adjuster at bedside by 1210, advised of pt [...] in bed. RN continues to monitor. Normal [facility] NURSING PROG HNO ID: [id number] Author: Davy (Rn) GILBERTO Guillen Service: ? Author Type: Registered Nurse Type: Nursing Progress Note Filed: 06/05/2019 8:03 AM Note Text: Nursing Progress: Topic: RESTRAINT NON-VIOLENT PATIENT NAME: Rhoda Hensley PATIENT LOCATION: [place] [address] [address]* The patient demonstrates Attempting to Remove Medical [...] 2019 TIME: 8:02 AM Davy Guillen RN [facility] NUTRITIONon 06-03-2019 NUTRITION HNO ID: [id number] Author: Ritika Orozco Service: Nutrition Therapy Author [...] feeding Discharge Nutrition Recommendations: To be determined Reason for Assessment: TF eval Per HPI: [...] lb) 04/15/15 : 87.1 kg (192 lb) [place] Body Weight: 70kg Resting Metabolic Rate: 1650 Estimated kilocalorie needs: 0256-1663 kilocalories determined by 25-30 kcal/kg Estimated protein needs: 105-140 grams determined by 1.5-2.0 g/kg [place] weight Estimated fluid needs: 8024-3631 milliliters based on 1 mL per kcal [...] Ritika Orozco RD, LD PATIENT NAME: Rhoda Hensley DATE: June 03, 2019 TIME: 8:34 AM PAGER: [phone] Normal [facility] PROGRESSon 06-03-2019 PROGRESS HNO ID: [id number] Author: Raudel Martínez MD Service: Trauma Author Type: Resident Type: Progress Notes Filed: 06/04/2019 6:01 AM Note Text: ----- Attestation signed by Francis Joy at 06/04/2019 11:08 AM I saw and evaluated the patient. Discussed with the resident and agree with resident's findings and plan as documented in the resident's note. Patient seen and evaluated on 03 June. Heavily sedated. Continue ICU support. ----- Trauma Progress Note SERVICE DATE: 06/03/2019 Trauma Service Pager: For questions or concerns Mon-Fri 6a-5p please page [phone]. After 5pm and on Weekends and Holidays, please page [phone] if in ICU or [phone] if on RNF. SUBJECTIVE: Per nursing pt [...] Cannula IANDO: Date 06/02/196[address] - 06/03/1965806/03/19699 - 06/04/19 0659 Shift 3565-5543 6359-4504 6381-0771 24 Hour Total 7265-9121 1699-4737 3493-7827 24 Hour Total INTAKE IV 1538.4 508.4 954 3000.8 D5 0.45%NS w/20KCL 705 883 9385 NS 0.9% 948.8 948.8 Calcium IVPB 250 250 Dexmedetomidine IV 89.6 28.4 140 258 Potassium Phosphate 250 250 Shift Total 1538.4 508.4 954 3000.8 OUTPUT Urine 300 1550 1850 Void (ml) 214 919 3223 Urine Incontinence/Not Saved 1 x 1 x [...] Diagnosis Date Noted - DTs (delirium tremens) ([facility]) 06/02/2019 - SAH (subarachnoid hemorrhage) ([facility]) 06/02/2019 - Closed fracture of one rib of left side 06/02/2019 - Closed fracture of vault of skull ([facility]) 06/02/2019 - Aphasia 06/02/2019 - Subdural hematoma ([facility]) 06/01/2019 - Bipolar affective disorder (HCC) 12/21/2012 Overview Note: Diagnosed in ~1989 49 y/o male found down and brought to outside ED, transferred to [facility] for intracranial bleed. ? Imaging performed: 1. [...] questions or concerns Sun-Sun 6a-5p please page [phone]. After 5pm and on Weekends and Holidays, please page [phone] if in ICU or [phone] if on RNF. SIGNATURE: Raudel Martínez MD PATIENT NAME: Rhoda Hensley DATE: June 03, 2019 TIME: 10:13 AM [facility] PROGRESS HNO ID: [id number] Author: Lakesha Wilkes Service: Critical Care Author Type: Physician Type: Progress Notes Filed: 06/03/2019 12:33 PM Note Text: INPATIENT SICU PROGRESS NOTE SICU Service Pager: For questions or concerns Sun-Sun 6a-5p please page [phone]. After 5pm and on Weekends and Holidays, please page [phone]. SERVICE DATE: 06/03/2019 Subjective Subjective: This is [...] Max:37.3 ?C (99.1 ?F) Date 06/02/19699 - 06/03/1965806/03/19 07 - 06/04/19 0659 Shift 2883-0291 7313-5974 7891-4938 24 Hour Total 9492-4254 6934-4940 8727-7505 24 Hour Total INTAKE IV 1538.4 508.4 954 3000.8 D5 0.45%NS w/20KCL 874 406 9018 NS 0.9% 948.8 948.8 Calcium IVPB 250 250 Dexmedetomidine IV 89.6 28.4 140 258 Potassium Phosphate 250 250 Shift Total 1538.4 508.4 954 3000.8 OUTPUT Urine 300 1550 1850 Void (ml) 300 608 1164 Urine Incontinence/Not Saved 1 x 1 x [...] SIGNATURE: Henok Kwong DO PATIENT NAME: Rhoda Hensley DATE: June 03, 2019 TIME: 9:34 AM PAGER: below SICU Service Pager: For questions or concerns Mon-Sun 6a-5p please page [phone]. After 5pm and on Weekends and Holidays, please page [phone]. As above Requiring more Precedex, Ativan and [...] fracture of vault of skull, initial encounter ([facility]) (I60.9) Subarachnoid hemorrhage (HCC) (S06.359A) Traumatic left-sided [...] SIGNATURE: Lakesha Wilkes MD PATIENT NAME: Rhoda Hensley DATE: June 03, 2019 TIME: 12:27 PM [facility] PROGRESS HNO ID: [id number] Author: Ashley Alvarez (Destini) DESTINI Silver Service: Neurosurgery Author Type: Physician Reinforcing Steel Machine Operator Type: Progress Notes Filed: 06/03/2019 9:10 [...] Nasal Cannula IANDO: Date 06/02/19 07 - 06/03/19 0659 06/03/19 07 - 06/04/19 0659 Shift 5904-3393 5102-4258 3581-2451 24 Hour Total 1324-7608 2697-7789 2841-8867 24 Hour Total INTAKE IV 1538.4 508.4 954 3000.8 D5 0.45%NS w/20KCL 756 806 8715 NS 0.9% 948.8 948.8 Calcium IVPB 250 250 Dexmedetomidine IV 89.6 28.4 140 258 Potassium Phosphate 250 250 Shift Total 1538.4 508.4 954 3000.8 OUTPUT Urine 300 1550 1850 Void (ml) 119 911 8766 Urine Incontinence/Not Saved 1 x 1 x 1 x 1 x Output ([REMOVED] External Collection Device 06/02/19 0851 06/02/19 1930) 0 800 800 Shift Total 300 1550 [...] awaken as staff just got him calmed; benavides HEENT: normocephalic, atraumatic LUNGS: Unlabored breathing ASSESSMENT AND PLAN: Active Hospital Problems Diagnosis Date Noted - DTs (delirium tremens) ([facility]) 06/02/2019 - SAH (subarachnoid hemorrhage) (HCC) 06/02/2019 - Closed fracture of one rib of left side 06/02/2019 - Closed fracture of vault of skull (HCC) 06/02/2019 - Aphasia 06/02/2019 - Subdural hematoma (HCC) 06/01/2019 - Bipolar affective disorder ([facility]) 12/21/2012 Overview Note: Diagnosed in ~1989 49 year old male left IPH/SAH/SDH - neuro with significant receptive aphasia - nonsurgical mgt - w/d - addressed - will reassess later when awake and calm SIGNATURE: DESTINI Lobo PATIENT NAME: Rhoda Hensley DATE: June 03, 2019 TIME: 9:05 AM Pager: [phone] [facility] Phosphorus Bloodon 9 Phosphate [Mass/Vol] 1.6 mg/dL Critically low 2.5-4.9 [facility] Comment on above: Performed By: #### D RUG3 #### [place] [address] ALLIED HEALTHon 06-02-2019 ALLIED HEALTH HNO ID: [id number] Author: Serina LOVE Service: Music Therapy Author Type: ? Type: Allied Health Filed: 06/02/2019 2:48 PM Note Text: MUSIC THERAPY NOTE SERVICE DATE: 06/02/2019 SERVICE TIME: 12:45 Referred By: Nurse Reason for Referral: Agitation Session Type: Initial Time Spent (minutes): 45 GOALS: Goals: Build Rapport;Decrease Agitation/Restlessness;In crease Relaxation INTERVENTIONS: Interventions: Making Choices;Music Listening;Musical Entrainment [...] SIGNATURE: Serina Parrish MT-BC PATIENT NAME: Rhoda Hensley DATE: June 02, 2019 TIME: 2:46 PM PAGER/CONTACT #: P: [phone] [facility] Basic Panelon 06-02-2019 Creatinine [Mass/Vol] 0.41 mg/dL Low 0.67-1.17 [facility] Comment on above: Performed By: #### P T #### [address] [address] Anion gap [Moles/Vol] 11 mmol/L Normal 8-16 [facility] Comment on above: Performed By: #### P T #### [address] [address] CO2 [Moles/Vol] 24 mmol/L Normal 21-32 [facility] Comment on above: Performed By: #### P T #### [address] [address] Urea nitrogen [Mass/Vol] 4 mg/dL Low 7-18 [facility] Comment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 [address], [place] [phone] Chetna TSHon 10-26-2017 Thyroid stimulating hormone (TSH) 3.020 uU/mL Normal 0.465-4.680 [facility] Comment on above: Performed By: #### C BCDIF, UA, GBCHEM, GBTSH, HIV12, MG, PT, RPR ####[facility] [id number] [place], [place] [phone] HIV 1,2 Antibody EIAon 10-26 HIV 1,2 Antibody EIA Nonreactive Normal Nonreactive As [facility] Comment on above: Performed By: #### C BCDIF, UA, GBCHEM, GBTSH, HIV12, MG, PT, RPR ####[facility] Nej32812 [place], [place] [phone] Magnesiumon 10-26-2017 Magnesium 1.3 mg/dL Normal 1.3-2.3 [facility] Comment on above: Performed By: #### C BCDIF, UA, GBCHEM, GBTSH, HIV12, MG, PT, RPR ####[facility] [id number] [place], [place] [phone] Protimeon 10-26-2017 INR Coag RelTime (Bld) 1.1 {INR} Normal 0.6-1.1 [facility] Comment on above: Result Comment: The PT/INR [...] to 3.5 for older generation mechanical heart valves.Maryan, et al. Chest 2004: 126:204S to 233S. Performed By: #### C BCDIF, UA, GBCHEM, GBTSH, HIV12, MG, PT, RPR ####[facility] [id number] [place], [place] [phone] PT Sec 13.4 sec Normal 11.8-14.1 [facility] Comment on above: Performed By: #### C BCDIF, UA, GBCHEM, GBTSH, HIV12, MG, PT, RPR ####[facility] [id number] [address] RdGrafton State Hospitalrdon, [place] [phone] Urinalysison 10-26-2017 Bilirubin (total) Negative Normal Negative [facility] Comment on above: Performed By: #### C BCDIF, UA, GBCHEM, GBTSH, HIV12, MG, PT, RPR ####[facility] [id number] [facility] [place] [phone] Cast SEE NOTES Normal 0 [facility] Comment on above: Result Comment: 0-2H yaline Cast Performed By: #### C BCDIF, UA, GBCHEM, GBTSH, HIV12, MG, PT, RPR ####[facility] [id number] [facility], [place] [phone] Erythrocytes (RBC) 0-3 Normal 0-3 [facility] Comment on above: Performed By: #### C BCDIF, UA, GBCHEM, GBTSH, HIV12, MG, PT, RPR ####[facility] [id number] [address] RdGrafton [facility] Hospitalrdon, [place] [phone] Glucose mass conc Negative Normal Negative [facility] Comment on above: Performed By: #### C BCDIF, UA, GBCHEM, GBTSH, HIV12, MG, PT, RPR ####[facility] [id number] [address] RdG[facility] Hospitalrdon, [place] [phone] Hemoglobin mass conc (Bld) Small Critically abnormal Negative [facility] Comment on above: Performed By: #### C BCDIF, UA, GBCHEM, GBTSH, HIV12, MG, PT, RPR ####[facility] Yhz72903 [address] RdG[facility]on [facility] Hospitalrdon, [place] [phone] Ketone Negative Normal Negative [facility] Comment on above: Performed By: #### C BCDIF, UA, GBCHEM, GBTSH, HIV12, MG, PT, RPR ####[facility] [id number] [address], [place] [phone] Leukest Negative Normal Negative [facility] Comment on above: Performed By: #### C BCDIF, UA, GBCHEM, GBTSH, HIV12, MG, PT, RPR ####[facility] Ich31290 [address]Ch[place], [place] [phone] Protein 30 mg/dl Critically abnormal Negative [facility] Comment on above: Performed By: #### C BCDIF, UA, GBCHEM, GBTSH, HIV12, MG, PT, RPR ####[facility] Iql21042 [address]Ch[place], [place] [phone] Urine Mynor Comment Many Normal [facility] Comment on above: Result Comment: MUCO US Performed By: #### C BCDIF, UA, GBCHEM, GBTSH, HIV12, MG, PT, RPR ####[facility] [id number] [address]Ch[place], [place] [phone] Urine Spec [place] 1.021 Normal 1.005-1.030 [facility] Comment on above: Performed By: #### C BCDIF, UA, GBCHEM, GBTSH, HIV12, MG, PT, RPR ####[facility] [id number] [address], [place] [phone] Urine, clarity Clear Normal Clear [facility] Comment on above: Performed By: #### C BCDIF, UA, GBCHEM, GBTSH, HIV12, MG, PT, RPR ####[facility] [id number] [address], [place] [phone] Urine, color Sera Critically abnormal Yellow [facility] Comment on above: Performed By: #### C BCDIF, UA, GBCHEM, GBTSH, HIV12, MG, PT, RPR ####[facility] Obj11849 [address], [place] [phone] Urine, crystals in sediment SEE NOTES Normal 0 [facility] Comment on above: Result Comment: FewC alcium Oxalate Crystal Performed By: #### C BCDIF, UA, GBCHEM, GBTSH, HIV12, MG, PT, RPR ####[facility] [id number] [address], [place] [phone] Urine, epithelial cells in sediment Few Normal [facility] Comment on above: Result Comment: Squa mous Epithelial Cells Performed By: #### C BCDIF, UA, GBCHEM, GBTSH, HIV12, MG, PT, RPR ####[facility] [id number] [address] RdG[facility] Hospitalrdon, [place] [phone] Urine, nitrite presence Negative Normal Negative [facility] Comment on above: Performed By: #### C BCDIF, UA, GBCHEM, GBTSH, HIV12, MG, PT, RPR ####[facility] [id number] [address], [place] [phone] Urine, pH 6.0 [pH] Normal 5-7 [facility] Comment on above: Performed By: #### C BCDIF, UA, GBCHEM, GBTSH, HIV12, MG, PT, RPR ####[facility] [id number] [address], [place] [phone] Urine, urobilinogen 2.0 mg/dl High 0.0-1.0 [facility] Comment on above: Performed By: #### C BCDIF, UA, GBCHEM, GBTSH, HIV12, MG, PT, RPR ####[facility] [id number] [address], [place] [phone] WBC (Leukocytes) 0-5 Normal 0-5 [facility] Comment on above: Performed By: #### C BCDIF, UA, GBCHEM, GBTSH, HIV12, MG, PT, RPR ####[facility] [id number] [address] RdG[facility] Hospitalrdon, [place] [phone] Vital Signs Date Time Vital Sign Value Performing Clinician Facility 03-03-2025 11:04-0400 Body mass index (BMI) [Ratio] 36 kg/m2 Dr. Vasu Blackwell MD Work Phone: [facility] 03-03-2025 11:04-0400 Body temperature 98.3 [degF] Dr. Vasu Blackwell MD Work Phone: [facility] 03-03-2025 11:04-0400 Body weight 110.[address] Vasu Blackwell MD Work Phone: [facility] 03-03-2025 11:04-0400 Diastolic blood pressure 93 mm[Hg] Dr. Vasu Blackwell MD Work Phone: [facility] 03-03-2025 11:04-0400 Heart rate 91 /min Dr. Vasu Blackwell MD Work Phone: [facility] 03-03-2025 11:04-0400 Respiratory rate 18 /min Dr. Vasu Blackwell MD Work Phone: [facility] 03-03-2025 11:04-0400 SaO2% (BldA) [Mass fraction] 94 % Dr. Vasu Blackwell MD Work Phone: [facility] 03-03-2025 11:04-0400 Systolic blood pressure 137 mm[Hg] Dr. Vasu Blackwell MD Work Phone: [facility] 01-23-2025 08:50-0400 Body mass index (BMI) [Ratio] 36.32 kg/m2 Shira Podlogar PHOTOGRAPHY TEACHER.WARDROBE TECHNICIAN Work Phone: [facility] 01-23-2025 08:50-0400 Body weight 108.95 kg Shira Foxlogar PHOTOGRAPHY TEACHER.WARDROBE TECHNICIAN Work Phone: [facility] 01-23-2025 08:50-0400 Diastolic blood pressure 78 mm[Hg] Shira Podlogar PHOTOGRAPHY TEACHER.WARDROBE TECHNICIAN Work Phone: [facility] 01-23-2025 08:50-0400 Heart rate 93 /min Shira Podlogar PHOTOGRAPHY TEACHER.WARDROBE TECHNICIAN Work Phone: [facility] 01-23-2025 08:50-0400 Respiratory rate 20 /min Shira Podlogar PHOTOGRAPHY TEACHER.WARDROBE TECHNICIAN Work Phone: [facility] 01-23-2025 08:50-0400 SaO2% (BldA) [Mass fraction] 97 % Shira Podlogar PHOTOGRAPHY TEACHER.WARDROBE TECHNICIAN Work Phone: [facility] 01-23-2025 08:50-0400 Systolic blood pressure 108 mm[Hg] Shira Podlogar PHOTOGRAPHY TEACHER.WARDROBE TECHNICIAN Work Phone: [facility] 01-15-2025 08:00-0400 Body temperature 98 [degF] Dr. Vasu Blackwell MD Work Phone: [facility] 01-15-2025 08:00-0400 Body weight 107.[address] Vasu Blackwell MD Work Phone: [facility] 01-15-2025 08:00-0400 Diastolic blood pressure 80 mm[Hg] Dr. Vasu Blackwell MD Work Phone: [facility] 01-15-2025 08:00-0400 Heart rate 84 /min Dr. Vasu Blackwell MD Work Phone: [facility] 01-15-2025 08:00-0400 Respiratory rate 17 /min Dr. Vasu Blackwell MD Work Phone: [facility] 01-15-2025 08:00-0400 SaO2% (BldA) [Mass fraction] 98 % Dr. Vasu Blackwell MD Work Phone: [facility] 01-15-2025 08:00-0400 Systolic blood pressure 119 mm[Hg] Dr. Vasu Blackwell MD Work Phone: [facility] 01-01-2025 08:01-0400 Body height 175.[address] Vasu Blackwell MD Work Phone: [facility] 01-01-2025 08:01-0400 Body mass index (BMI) [Ratio] 34.9 kg/m2 Dr. Vasu Blackwell MD Work Phone: [facility] 01-01-2025 08:01-0400 Body temperature 97.8 [degF] Dr. Vasu Blackwell MD Work Phone: [facility] 01-01-2025 08:01-0400 Body weight 107.[address] Vasu Blackwell MD Work Phone: [facility] 01-01-2025 08:01-0400 Diastolic blood pressure 63 mm[Hg] Dr. Vasu Blackwell MD Work Phone: [facility] 01-01-2025 08:01-0400 Heart rate 97 /min Dr. Vasu Blackwell MD Work Phone: [facility] 01-01-2025 08:01-0400 Respiratory rate 15 /min Dr. Vasu Blackwell MD Work Phone: [facility] 01-01-2025 08:01-0400 SaO2% (BldA) [Mass fraction] 99 % Dr. Vasu Blackwell MD Work Phone: [facility] 01-01-2025 08:01-0400 Systolic blood pressure 93 mm[Hg] Dr. Vasu Blackwell MD Work Phone: [facility] 09-30-2024 08:04-0500 Body mass index (BMI) [Ratio] 34 kg/m2 Dr. Vasu Blackwell MD Work Phone: [facility] 09-30-2024 08:04-0500 Body temperature 97.7 [degF] Dr. Vasu Blackwell MD Work Phone: [facility] 09-30-2024 08:04-0500 Body weight 104.[address] Vasu Blackwell MD Work Phone: [facility] 09-30-2024 08:04-0500 Diastolic blood pressure 62 mm[Hg] Dr. Vasu Blackwell MD Work Phone: [facility] 09-30-2024 08:04-0500 Heart rate 95 /min Dr. Vasu Blackwell MD Work Phone: [facility] 09-30-2024 08:04-0500 Respiratory rate 15 /min Dr. Vasu Blackwell MD Work Phone: [facility] 09-30-2024 08:04-0500 SaO2% (BldA) [Mass fraction] 99 % Dr. Vasu Blackwell MD Work Phone: [facility] 09-30-2024 08:04-0500 Systolic blood pressure 108 mm[Hg] Dr. Vasu Blackwell MD Work Phone: [facility] 07-28-2024 13:31-0500 Body height 173.2 cm Alexandro Monterroso PHOTOGRAPHY TEACHER.WARDROBE TECHNICIAN Work Phone: [facility] 07-28-2024 13:31-0500 Body mass index (BMI) [Ratio] 32.96 kg/m2 Alexandro Monterroso PHOTOGRAPHY TEACHER.WARDROBE TECHNICIAN Work Phone: [facility] 07-28-2024 13:31-0500 Body weight 98.88 kg Alexandro Palmter PHOTOGRAPHY TEACHER.WARDROBE TECHNICIAN Work Phone: [facility] 07-28-2024 13:31-0500 Heart rate 85 /min Alexandro Coahoma PHOTOGRAPHY TEACHER.WARDROBE TECHNICIAN Work Phone: [facility] 07-28-2024 13:31-0500 Respiratory rate 12 /min Alexandro Palmter PHOTOGRAPHY TEACHER.WARDROBE TECHNICIAN Work Phone: [facility] 07-28-2024 13:31-0500 SaO2% (BldA) [Mass fraction] 96 % Alexandro Monterroso APRN.WARDROBE TECHNICIAN Work Phone: [facility] 07-28-2024 11:21-0500 Body height 173.2 cm Pulm Wstr Work Phone: [facility] 07-28-2024 11:21-0500 Body mass index (BMI) [Ratio] 32.96 kg/m2 Pulm Wstr Work Phone: [facility] 07-28-2024 11:21-0500 Body weight 98.88 kg Pulm Wstr Work Phone: [facility] 07-28-2024 11:21-0500 Heart rate 85 /min Pulm Wstr Work Phone: [facility] 07-28-2024 11:21-0500 Respiratory rate 12 /min Pulm Wstr Work Phone: [facility] 07-28-2024 11:21-0500 SaO2% (BldA) [Mass fraction] 96 % Pulm Wstr Work Phone: [facility] 07-23-2024 08:47-0500 Body mass index (BMI) [Ratio] 31.6 kg/m2 Waldo Suresh MD Work Phone: [facility] 07-23-2024 08:47-0500 Body weight 99.88 kg Waldo Suresh MD Work Phone: [facility] 07-23-2024 08:47-0500 Diastolic blood pressure 66 mm[Hg] Waldo Suresh MD Work Phone: [facility] 07-23-2024 08:47-0500 Heart rate 84 /min Waldo Suresh MD Work Phone: [facility] 07-23-2024 08:47-0500 Respiratory rate 16 /min Waldo Suresh MD Work Phone: [facility] 07-23-2024 08:47-0500 SaO2% (BldA) [Mass fraction] 94 % Waldo Suresh MD Work Phone: [facility] 07-23-2024 08:47-0500 Systolic blood pressure 110 mm[Hg] Waldo Suresh MD Work Phone: [facility] 06-26-2024 07:30-0500 Body mass index (BMI) [Ratio] 31.32 kg/m2 Shira Podlogar PHOTOGRAPHY TEACHER.WARDROBE TECHNICIAN Work Phone: [facility] 06-26-2024 07:30-0500 Body weight 99 kg Shira Podlogar PHOTOGRAPHY TEACHER.WARDROBE TECHNICIAN Work Phone: [facility] 06-26-2024 07:30-0500 Diastolic blood pressure 76 mm[Hg] Shira Podlogar PHOTOGRAPHY TEACHER.WARDROBE TECHNICIAN Work Phone: [facility] 06-26-2024 07:30-0500 Heart rate 74 /min Shira Podlogar PHOTOGRAPHY TEACHER.WARDROBE TECHNICIAN Work Phone: [facility] 06-26-2024 07:30-0500 Respiratory rate 16 /min Shira Podlogar PHOTOGRAPHY TEACHER.WARDROBE TECHNICIAN Work Phone: [facility] 06-26-2024 07:30-0500 Systolic blood pressure 114 mm[Hg] Shira Podlogar PHOTOGRAPHY TEACHER.WARDROBE TECHNICIAN Work Phone: [facility] 04-09-2024 11:10-0400 Body mass index (BMI) [Ratio] 29.24 kg/m2 Waldo Suresh MD Work Phone: [facility] 04-09-2024 11:10-0400 Body temperature 96.91 [degF] Waldo uSresh MD Work Phone: [facility] 04-09-2024 11:10-0400 Body weight 92.44 kg Waldo Suresh MD Work Phone: [facility] 04-09-2024 11:10-0400 Diastolic blood pressure 78 mm[Hg] Waldo Suresh MD Work Phone: [facility] 04-09-2024 11:10-0400 Heart rate 77 /min Waldo Suresh MD Work Phone: [facility] 04-09-2024 11:10-0400 Respiratory rate 16 /min Waldo Suresh MD Work Phone: [facility] 04-09-2024 11:10-0400 SaO2% (BldA) [Mass fraction] 97 % Waldo Suresh MD Work Phone: [facility] 04-09-2024 11:10-0400 Systolic blood pressure 104 mm[Hg] Waldo Suresh MD Work Phone: [facility] 01-08-2024 00:34-0400 Blood Pressure Method TYRELL CASTANON MD [facility] 01-08-2024 00:34-0400 Diastolic Blood Pressure Non-Invasive 85 mm[Hg] TYRELL CASTANON MD [facility] 01-08-2024 00:34-0400 Heart rate 82 /min TYRELL CASTANON MD [facility] 01-08-2024 00:34-0400 Reason For Taking VItal Signs TYRELL CASTANON MD [facility] 01-08-2024 00:34-0400 Respiratory rate 16 /min TYRELL CASTANON MD [facility] 01-08-2024 00:34-0400 Systolic Blood Pressure Non-Invasive 124 mm[Hg] TYRELL CASTANON MD [facility] 01-07-2024 21:21-0400 Diastolic Blood Pressure Non-Invasive 103 mm[Hg] TYRELL CASTANON MD [facility] 01-07-2024 21:21-0400 Heart rate 89 /min TYRELL CASTANON MD [facility] 01-07-2024 21:21-0400 Respiratory rate 18 /min TYRELL CASTANON MD [facility] 01-07-2024 21:21-0400 Systolic Blood Pressure Non-Invasive 146 mm[Hg] TYRELL CASTANON MD [facility] 01-07-2024 18:41-0400 Blood Pressure Location TYRELL CASTANON MD [facility] 01-07-2024 18:41-0400 Blood Pressure Method TYRELL CASTANON MD [facility] 01-07-2024 18:41-0400 Body temperature 98.06 [degF] TYRELL CASTANON MD [facility] 01-07-2024 18:41-0400 Diastolic Blood Pressure Non-Invasive 91 mm[Hg] TYRELL CASTANON MD [facility] 01-07-2024 18:41-0400 Heart rate 94 /min TYRELL CASTANON MD [facility] 01-07-2024 18:41-0400 Respiratory rate 18 /min TYRELL CASTANON MD [facility] 01-07-2024 18:41-0400 Systolic Blood Pressure Non-Invasive 125 mm[Hg] TYRELL CASTANON MD [facility] 01-07-2024 18:11-0400 Blood Pressure Location TYRELL CASTANON MD [facility] 01-07-2024 18:11-0400 Blood Pressure Method TYRELL CASTANON MD [facility] 01-07-2024 18:11-0400 Body temperature 98.06 [degF] TYRELL CASTANON MD [facility] 01-07-2024 17:41-0400 Blood Pressure Location TYRELL CASTANON MD [facility] 01-07-2024 17:41-0400 Body temperature 98.42 [degF] TYRELL CASTANON MD [facility] 10-15-2023 08:16-0500 Body height 177.[address] Vasu Blackwell Work Phone: [facility] 10-15-2023 08:16-0500 Body mass index (BMI) [Ratio] 27.6 kg/m2 Dr. Vasu Blackwell Work Phone: [facility] 10-15-2023 08:16-0500 Body temperature 98.4 [degF] Dr. Vasu Blackwell Work Phone: [facility] 10-15-2023 08:16-0500 Body weight 87.[address] Vasu Blackwell Work Phone: [facility] 10-15-2023 08:16-0500 Diastolic blood pressure 78 mm[Hg] Dr. Vasu Blackwell Work Phone: [facility] 10-15-2023 08:16-0500 Heart rate 95 /min Dr. Vasu Blackwell Work Phone: [facility] 10-15-2023 08:16-0500 Respiratory rate 17 /min Dr. Vasu Blackwell Work Phone: [facility] 10-15-2023 08:16-0500 SaO2% (BldA) [Mass fraction] 99 % Dr. Vasu Blackwell Work Phone: [facility] 10-15-2023 08:16-0500 Systolic blood pressure 130 mm[Hg] Dr. Vasu Blackwell Work Phone: [facility] 09-24-2023 14:16-0500 Body height 180.[address] Vasu Blackwell Work Phone: [facility] 09-24-2023 14:16-0500 Body mass index (BMI) [Ratio] 26.9 kg/m2 Dr. Vasu Blackwell Work Phone: [facility] 09-24-2023 14:16-0500 Body temperature 97.4 [degF] Dr. Vasu Blackwell Work Phone: [facility] 09-24-2023 14:16-0500 Body weight 87.[address] Vasu Blackwell Work Phone: [facility] 09-24-2023 14:16-0500 Diastolic blood pressure 74 mm[Hg] Dr. Vasu Blackwell Work Phone: [facility] 09-24-2023 14:16-0500 Heart rate 54 /min Dr. Vasu Blackwell Work Phone: [facility] 09-24-2023 14:16-0500 Respiratory rate 16 /min Dr. Vasu Blackwell Work Phone: [facility] 09-24-2023 14:16-0500 SaO2% (BldA) [Mass fraction] 99 % Dr. Vasu Blackwell Work Phone: [facility] 09-24-2023 14:16-0500 Systolic blood pressure 120 mm[Hg] Dr. Vasu Blackwell Work Phone: [facility] 06-20-2023 14:11-0400 Body temperature 97.4 [degF] Dr. Vasu Blackwell Work Phone: [facility] 06-20-2023 14:11-0400 Diastolic blood pressure 86 mm[Hg] Dr. Vasu Blackwell Work Phone: [facility] 06-20-2023 14:11-0400 Heart rate 79 /min Dr. Vasu Blackwell Work Phone: [facility] 06-20-2023 14:11-0400 Respiratory rate 18 /min Dr. Vasu Blackwell Work Phone: [facility] 06-20-2023 14:11-0400 SaO2% (BldA) [Mass fraction] 100 % Dr. Vasu Blackwell Work Phone: [facility] 06-20-2023 14:11-0400 Systolic blood pressure 138 mm[Hg] Dr. Vasu Blackwell Work Phone: [facility] 06-16-2023 15:24-0400 Body height 180.[address] Vasu Blackwell Work Phone: [facility] 06-16-2023 15:24-0400 Body mass index (BMI) [Ratio] 27.3 kg/m2 Dr. Vasu Blackwell Work Phone: [facility] 06-16-2023 15:24-0400 Body weight 89.[address] Vasu Blackwell Work Phone: [facility] 06-16-2023 15:24-0400 Diastolic blood pressure 77 mm[Hg] Dr. Vasu Blackwell Work Phone: [facility] 06-16-2023 15:24-0400 Systolic blood pressure 140 mm[Hg] Dr. Vasu Blackwell Work Phone: [facility] 06-16-2023 14:12-0400 Heart rate 114 /min Dr. Vasu Blackwell Work Phone: [facility] 06-16-2023 14:12-0400 Respiratory rate 22 /min Dr. Vasu Blackwell Work Phone: [facility] 06-16-2023 14:12-0400 SaO2% (BldA) [Mass fraction] 99 % Dr. Vasu Blackwell Work Phone: [facility] 06-16-2023 12:13-0400 Body temperature 98.6 [degF] Dr. Vasu Blackwell Work Phone: [facility] 06-16-2023 12:08-0400 Body height 177.[address] Vasu Blackwell Work Phone: [facility] 06-16-2023 12:08-0400 Body mass index (BMI) [Ratio] 28.7 kg/m2 Dr. Vasu Blackwell Work Phone: [facility] 06-16-2023 12:08-0400 Body weight 90.[address] Vasu Blackwell Work Phone: [facility] 05-31-2023 08:59-0400 Body height 177.[address] Vasu Blackwell Work Phone: [facility] 05-31-2023 08:59-0400 Body mass index (BMI) [Ratio] 28.5 kg/m2 Dr. Vasu Blackwell Work Phone: [facility] 05-31-2023 08:59-0400 Body temperature 98.2 [degF] Dr. Vasu Blackwell Work Phone: [facility] 05-31-2023 08:59-0400 Body weight 90.[address] Vasu Blackwell Work Phone: [facility] 05-31-2023 08:59-0400 Diastolic blood pressure 90 mm[Hg] Dr. Vasu Blackwell Work Phone: [facility] 05-31-2023 08:59-0400 Heart rate 100 /min Dr. Vasu Blackwell Work Phone: [facility] 05-31-2023 08:59-0400 Respiratory rate 17 /min Dr. Vasu Blackwell Work Phone: [facility] 05-31-2023 08:59-0400 SaO2% (BldA) [Mass fraction] 95 % Dr. Vasu Blackwell Work Phone: [facility] 05-31-2023 08:59-0400 Systolic blood pressure 140 mm[Hg] Dr. Vasu Blackwell Work Phone: [facility] 05-28-2023 09:53-0400 Body mass index (BMI) [Ratio] 28.7 kg/m2 Dr. Vasu Blackwell Work Phone: [facility] 05-28-2023 09:53-0400 Body temperature 97.2 [degF] Dr. Vasu Blackwell Work Phone: [facility] 05-28-2023 09:53-0400 Body weight 90.[address] Vasu Blackwell Work Phone: [facility] 05-28-2023 09:53-0400 Diastolic blood pressure 82 mm[Hg] Dr. Vasu Blackwell Work Phone: [facility] 05-28-2023 09:53-0400 Heart rate 106 /min Dr. Vasu Blackwell Work Phone: [facility] 05-28-2023 09:53-0400 Respiratory rate 16 /min Dr. Vasu Blackwell Work Phone: [facility] 05-28-2023 09:53-0400 SaO2% (BldA) [Mass fraction] 97 % Dr. Vasu Blackwell Work Phone: [facility] 05-28-2023 09:53-0400 Systolic blood pressure 150 mm[Hg] Dr. Vasu Blackwell Work Phone: [facility] 02-21-2022 15:14-0400 Body mass index (BMI) [Ratio] Patient Reason Not Done Referring Provider Unknown YM-Crfwsqnyl-MGEO C Annalisa 5 Work Phone: 02-21-2022 15:14-0400 Diastolic blood pressure 77 mm[Hg] Referring Provider Unknown HV-Ihemllaaf-HVNR C Bolwell 5 Work Phone: 02-21-2022 15:14-0400 Heart rate 72 /min Referring Provider Unknown LF-Bdnxpkvqe-BHNO C Bolwell 5 Work Phone: 02-21-2022 15:14-0400 Respiratory rate 19 /min Referring Provider Unknown YQ-Yahzlffql-APTL C Bolwell 5 Work Phone: 02-21-2022 15:14-0400 SaO2% (BldA) [Mass fraction] 98 % Referring Provider Unknown DA-Wlunkppce-PKEC C Bolwell 5 Work Phone: 02-21-2022 15:14-0400 Systolic blood pressure 117 mm[Hg] Referring Provider Unknown KN-Hbvkxmwug-ZXYR C Bolwell 5 Work Phone: 12-30-2021 22:28-0400 Respiratory rate 16 /min Dr. Vasu Blackwell Work Phone: [facility] Work Phone: 12-30-2021 17:48-0400 Body height 177.[address] Vasu Blackwell Work Phone: [facility] Work Phone: 12-30-2021 17:48-0400 Body mass index (BMI) [Ratio] 29.2 kg/m2 Dr. Vasu Blackwell Work Phone: [facility] Work Phone: 12-30-2021 17:48-0400 Body temperature 98.1 [degF] Dr. Vasu Blackwell Work Phone: [facility] Work Phone: 12-30-2021 17:48-0400 Body weight 92.[address] Vasu Blackwell Work Phone: [facility] Work Phone: 12-30-2021 17:48-0400 Diastolic blood pressure 83 mm[Hg] Dr. Vasu Blackwell Work Phone: [facility] Work Phone: 12-30-2021 17:48-0400 Heart rate 86 /min Dr. Vasu Blackwell Work Phone: [facility] Work Phone: 12-30-2021 17:48-0400 SaO2% (BldA) [Mass fraction] 98 % Dr. Vasu Blackwell Work Phone: [facility] Work Phone: 12-30-2021 17:48-0400 Systolic blood pressure 117 mm[Hg] Dr. Vasu Blackwell Work Phone: [facility] Work Phone: 12-30-2021 10:00-0400 Body mass index (BMI) [Ratio] 28.8 kg/m2 Dr. Vasu Blackwell Work Phone: [facility] Work Phone: 12-30-2021 10:00-0400 Body temperature 96.5 [degF] Dr. Vasu Blackwell Work Phone: [facility] Work Phone: 12-30-2021 10:00-0400 Body weight 91.[address] Vasu Blackwell Work Phone: [facility] Work Phone: 12-30-2021 10:00-0400 Diastolic blood pressure 70 mm[Hg] Dr. Vasu Blackwell Work Phone: [facility] Work Phone: 12-30-2021 10:00-0400 Heart rate 91 /min Dr. Vasu Blackwell Work Phone: [facility] Work Phone: 12-30-2021 10:00-0400 Systolic blood pressure 110 mm[Hg] Dr. Vasu Blackwell Work Phone: [facility] Work Phone: 10-26-2021 07:16-0500 Body mass index (BMI) [Ratio] 30.2 kg/m2 Dr. Vasu Blackwell Work Phone: [facility] Work Phone: 10-26-2021 07:16-0500 Body temperature 97.9 [degF] Dr. Vasu Blackwell Work Phone: [facility] Work Phone: 10-26-2021 07:16-0500 Body weight 95.[address] Vasu Blackwell Work Phone: [facility] Work Phone: 10-26-2021 07:16-0500 Diastolic blood pressure 84 mm[Hg] Dr. Vasu Blackwell Work Phone: [facility] Work Phone: 10-26-2021 07:16-0500 Heart rate 80 /min Dr. Vasu Blackwell Work Phone: [facility] Work Phone: 10-26-2021 07:16-0500 Respiratory rate 14 /min Dr. Vasu Blackwell Work Phone: [facility] Work Phone: 10-26-2021 07:16-0500 SaO2% (BldA) [Mass fraction] 98 % Dr. Vasu Blackwell Work Phone: [facility] Work Phone: 10-26-2021 07:16-0500 Systolic blood pressure 120 mm[Hg] Dr. Vasu Blackwell Work Phone: [facility] Work Phone: 06-16-2019 09:14-0400 Body weight 170.4 LB/KG [facility] Comment on above: Performed By: #### PT #### [facility] [address] [place] [address] 06-13-2019 14:46-0400 Body temperature 35.8 Deg [facility] Comment on above: Performed By: #### PT #### [place] [address] 06-11-2019 17:57-0400 Body temperature 37.0 Deg [facility] Comment on above: Performed By: #### ABG ####[place] [address] 06-10-2019 06:45-0400 Body temperature 37.0 Deg [facility] Comment on above: Performed By: #### LILLIANA #### [place] [address] 06-07-2019 19:56-0400 Body temperature 37.0 Deg [facility] Comment on above: Performed By: #### LILLIANA #### [place] [address] 06-07-2019 12:56-0400 Body temperature 37.0 Deg [facility] Comment on above: Performed By: #### LILLIANA #### [place] [address] 06-07-2019 10:24-0400 Body temperature 37.0 Deg [facility] Comment on above: Performed By: #### LILLIANA #### [place] [address] Encounters Encounter Date Encounter Type Care Provider Facility Start: 03-24-2025 ambulatory Kala Lunsford Facili ty:[facility] Start: 03-05-2025 End: 03-05-2025 Patient encounter procedure Rachel Ray PhD Work Phone: Neuropyschology Comment on above: 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 Vasu Blackwell MD Work Phone: -[facility] Start: 02-19-2025 End: 02-19-[address] Vasu Blackwell MD Work Phone: -Sleep Lab Start: 02-19-2025 End: 02-19-[address] Errol Anderson MD -Sleep Lab Work Phone: Start: 02-19-2025 End: 02-19-2025 ambulatory [facility] Facility:[facility] Start: 02-17-2025 End: 02-17-[address] Vasu Blackwell MD Work Phone: -Laboratory Start: 02-17-2025 End: 02-17-[address] Errol Anderson MD -Laboratory Work Phone: Start: 02-17-2025 End: 02-17-2025 ambulatory [facility] Facility:[facility] Start: 02-05-2025 End: 02-05-[address] Vasu Blackwell MD Work Phone: [facility] Work Phone: Start: 02-05-2025 End: 02-05-[address] Errol Anderson MD -[facility] Work Phone: Start: 02-05-2025 End: 02-05-2025 ambulatory [facility] Facility:[facility] Start: 01-29-2025 End: 01-29-[address] Vasu Blackwell MD Work Phone: [facility] Work Phone: Start: 01-29-2025 End: 01-29-[address] Errol Anderson MD -Pulmonary Services/Neurology Work Phone: Start: 01-29-2025 End: 01-29-2025 ambulatory Errol Anderson Facility:[facility] Start: 01-23-2025 End: 01-23-2025 Patient encounter procedure Shira Cheatham APRN.CNP Work Phone: [facility] Comment on above: Primary hypertension (Primary Dx); Other hyperlipidemia; Tobacco use; Screening for colon cancer; Tobacco use disorder; Bipolar affective disorder, remission status unspecified (HCC); Marijuana use; Nonintractable epilepsy without status epilepticus, unspecified epilepsy type (HCC); Alcoholism in remission (HCC); Gastroesophageal reflux disease without esophagitis Start: 01-23-2025 End: 01-23-2025 ambulatory SHIRA CHEATHAM Facility:[facility] Start: 01-19-2025 End: 01-22-2025 Telephone encounter Neurology Provider Neurology Comment on above: Received Outside [facility] Records (External referral to Neurological [place]/) Start: 01-15-2025 End: 01-15-[address] Errol Anderson MD -[facility] Work Phone: Start: 01-15-2025 End: 01-15-[address] Vasu Blackwell MD Work Phone: [facility] Work Phone: Start: 01-01-2025 End: 01-01-2025 Patient encounter procedure Marta FOX -[facility] Work Phone: Start: 01-01-2025 End: 01-01-[address] Vasu Blackwell MD Work Phone: [facility] Work Phone: Start: 11-10-2024 End: 11-10-2024 Refill Walod Suresh MD Work Phone: [facility] Comment on above: Refill Request Start: 10-02-2024 End: 10-02-[address] Errol Anderson MD -Laboratory Work Phone: Start: 10-02-2024 End: 10-02-2024 ambulatory [facility] Facility:[facility] Start: 09-30-2024 End: 09-30-[address] Errol Anderson MD -[facility] Work Phone: Start: 09-30-2024 End: 09-30-2024 ambulatory [facility] Facility:[facility] Start: 08-14-2024 End: 08-14-2024 Orders Only Alexandro Monterroso PHOTOGRAPHY TEACHER.WARDROBE TECHNICIAN Work Phone: Pulmonary Medicine Comment on above: Encounter for screen ing for lung cancer (Primary Dx); Tobacco use Start: 08-12-2024 End: 08-12-2024 ambulatory ALEXANDRO MONTERROSO Facility:[facility] Start: 08-12-2024 End: 08-12-2024 [facility] Work Phone: Cat Scan Comment on above: Encounter for screen ing for lung cancer [Z12.2] Start: 07-28-2024 End: 07-28-2024 ambulatory [facility]m [facility] Work Phone: [facility] Comment on above: Spirometry Start: 07-28-2024 End: 07-28-2024 Patient encounter procedure [facility] Work Phone: [facility] Comment on above: Encounter for screen ing for lung cancer (Primary Dx); Tobacco use Start: 07-23-2024 End: 07-23-2024 ambulatory WALDO SURESH Facility:[facility] Start: 07-23-2024 End: 07-23-2024 Patient encounter procedure Waldo Suresh MD Work Phone: [facility] Comment on above: Persistent cough (Pr imary Dx); Wheezing; Tobacco use; Primary hypertension; Other hyperlipidemia; Bipolar affective disorder, remission status unspecified (HCC); Depression with anxiety Start: 07-18-2024 End: 07-18-2024 Refill Waldo Suresh MD Work Phone: [facility] Comment on above: Refill Request Start: 07-03-2024 End: 07-03-2024 ambulatory Errol Anderson Facility[facility] Start: 06-26-2024 End: 06-27-2024 Telephone encounter Waldo Suresh MD Work Phone: [facility] Comment on above: fax order to [facility] Start: 06-26-2024 End: 06-26-2024 ambulatory SHIRA PODLOGAR Facility:[facility] Start: 06-26-2024 End: 06-26-2024 Patient encounter procedure Shira Foxlogdomenico MCKEONNTERRY Work Phone: [facility] Comment on above: Bilateral leg edema (Primary Dx); Primary hypertension; Alcohol abuse; Elevated liver enzymes Start: 06-14-2024 ambulatory Davy Douglass Facili ty:[facility] Start: 06-14-2024 End: 06-18-2024 Evaluation and management of inpatient Davy ольга Leodan Facility:[facility] Start: 06-10-2024 ambulatory Vasu Blackwell Facili ty:[facility] Start: 04-11-2024 End: 04-11-2024 Telephone encounter Waldo Suresh MD Work Phone: [facility] Comment on above: Results Start: 04-09-2024 End: 04-09-2024 ambulatory WALDO SURESH Facility:[facility] Start: 04-09-2024 End: 04-09-2024 Patient encounter procedure Waldo Suresh MD Work Phone: [facility] Comment on above: Encounter for medica l examination to establish care (Primary Dx); Diarrhea, unspecified type; Alcohol abuse; Depression with anxiety; Bipolar affective disorder, remission status unspecified (HCC); Primary hypertension; Screening for colon cancer; Marijuana use; History of traumatic brain injury; Nonintractable epilepsy without status epilepticus, unspecified epilepsy type (HCC) Start: 04-09-2024 End: 04-09-2024 Patient encounter status Waldo Suresh MD Work Phone: [facility] Work Phone: Start: 04-09-2024 End: 04-09-2024 ambulatory WALDO SURESH Facility:[facility] Start: 04-09-2024 Encounter for genera l adult medical examination without abnormal findings WALDO SURESH [facility] Start: 04-06-2024 End: 04-06-2024 Letter encounter [facility] Start: 01-07-2024 End: 01-08-2024 Emergency department patient visit JOHN LUJAN Facility:[facility] Start: 01-07-2024 End: 01-08-2024 Emergency department patient visit TYRELL CASTANON MD [facility] Start: 12-30-2023 Letter encounter HadleyCathy liya Start: 11-08-2023 End: 11-08-[address] Vasu Blackwell Work Phone: [facility] Work Phone: Start: 11-08-2023 End: 11-08-[address] Vasu Blackwell Work Phone: [facility]-Sleep Lab Work Phone: Start: 10-15-2023 End: 10-15-[address] Vasu Blackwell Work Phone: [facility] Work Phone: Start: 09-25-2023 End: 09-25-[address] Vasu Blackwell Work Phone: [facility] Work Phone: Start: 09-25-2023 End: 09-25-[address] Vasu Blackwell Work Phone: [facility]-Laboratory, Specimen Work Phone: Start: 09-25-2023 Non-patient / Non-visit Dr. Vasu Blackwell Work Phone: [facility] Start: 09-24-2023 End: 09-24-[address] Vasu Blackwell Work Phone: [facility] Work Phone: Start: 09-24-2023 End: 09-24-[address] Vasu Blackwell Work Phone: [facility] Work Phone: Start: 09-13-2023 End: 09-13-[address] Vasu Blackwell Work Phone: [facility] Work Phone: Start: 09-13-2023 End: 09-13-2023 Patient encounter procedure Dr. Vasu Blackwell Work Phone: [facility] Work Phone: Start: 06-20-2023 Non-patient / Non-visit Dr. Vasu Blackwell Work Phone: [facility] Work Phone: Start: 06-19-2023 Non-patient / Non-visit Dr. Vasu Blackwell Work Phone: [facility] Work Phone: Start: 06-18-2023 Non-patient / Non-visit Dr. Vasu Blackwell Work Phone: [facility] Work Phone: Start: 06-17-2023 Non-patient / Non-visit Dr. Vasu Blackwell Work Phone: [facility] Work Phone: Start: 06-16-2023 Non-patient / Non-visit Dr. Vasu Blackwell Work Phone: [facility] Work Phone: Start: 06-16-2023 End: 06-20-2023 Evaluation and management of inpatient Dr. Vasu Blackwell Work Phone: [facility]-Medical Surgical 3 Work Phone: Start: 06-08-2023 End: 06-08-[address] Vasu Blackwell Work Phone: [facility] Work Phone: Start: 06-08-2023 End: 06-08-[address] Vsau Blackwell Work Phone: [facility]-Pulmonary Services/Neurology Work Phone: Start: 05-31-2023 End: 05-31-[address] Vasu Blackwell Work Phone: [facility] Work Phone: Start: 05-28-2023 End: 05-28-[address] Vasu Blackwell Work Phone: [facility] Work Phone: Start: 05-28-2023 End: 05-28-[address] Vasu Blackwell Work Phone: [facility] Work Phone: Start: 10-02-[address] Vasu Blackwell Work Phone: [facility] Start: 09-26-2022 Letter encounter Debra vega Start: 06-27-2022 Letter encounter Debra vega Start: 02-21-2022 Office outpatient ne w 60 minutes Referring Provider Unknown HR-Fopclodac-BOARO Bolwell 5 Work Phone: Start: 12-30-2021 End: 12-30-2021 Emergency department patient visit Dr. Vasu Blackwell Work Phone: [facility]-Emergency Department Start: 12-30-2021 End: 12-30-[address] Vasu Blackwell Work Phone: [facility] Start: 10-26-2021 End: 10-26-[address] Vasu Blackwell Work Phone: [facility]-Laboratory, [facility] Start: 08-03-2021 End: 08-03-2021 Patient encounter procedure RONEN CHURCH BODY COVERER [facility] Start: 07-05-[address] Vasu Blackwell Work Phone: [facility] Start: 01-29-2021 ambulatory UNKNOWN PROVIDER Facili ty:[facility] Start: 01-28-2021 End: 01-28-2021 ambulatory UNKNOWN PROVIDER Facility:[facility] Start: 01-28-2021 End: 01-31-2021 Evaluation and management of inpatient SAMMY AMOR Facility:[facility] Start: 01-27-2021 ambulatory SAMMY AMOR Facility: [facility] Start: 10-30-2017 Ambulatory [facility] Start: 10-29-2017 Ambulatory [facility] Start: 10-28-2017 Ambulatory [facility] Start: 10-27-2017 Ambulatory [facility] Start: 10-26-2017 Ambulatory [facility] Procedures Date Procedure Procedure Detail Performing Clinician Start: 02-17-2025 Folic acid measurement, RBC Dr. Vasu Blackwell MD Work Phone: Start: 02-05-2025 MRI of brain without contrast Dr. Vasu Blackwell MD Work Phone: Start: 10-02-2024 Measurement of renal function Dr. Vasu Blackwell MD Work Phone: Comment on above: GFR Calc Start: 10-02-[address] Vasu Blackwell MD Work Phone: Start: 08-12-2024 CT LUNG SCREEN MARRY Monterroso PHOTOGRAPHY TEACHER.WARDROBE TECHNICIAN Work Phone: Start: 07-28-2024 Brncdilat rspse spmt ry pre&post-brncdilat admn Waldo Suresh MD Work Phone: Start: 04-09-2024 Lipid 1996 panel - S alex or Plasma Waldo Suresh MD Work Phone: Start: 09-25-2023 Clostridium difficil [...] above: Performed By: #### P T #### [place] [address] Plan of Treatment Date Care Activity Detail Author Start: 06-01-2029 Tetanus vaccination Tetanus (T d or Tdap) Booster [facility] Start: 06-01-2029 Urine microalbumin profile DTaP,Tdap,Td Vaccine (2 - Td or Tdap) [facility] Start: 04-09-2029 Lipid panel Lipid Screening [facility] Start: 04-09-2027 Diabetes Screening Diabetes Screenin g [facility] Start: 01-23-2026 Annual PCP Team Photograph Finisher elizabeth Disease Visit Annual PCP Team Chronic Disease Visit [facility] Start: 01-23-2026 BP Controlled (<130/80) BP Controlle d (<130/80) [facility] Start: 01-23-2026 Pneumococcal Vaccine : 50+ (2 of 2 - PCV) Pneumococcal Vaccine: 50+ (2 of 2 - PCV) [facility] Comment on above: Postponed from 06/27 (Declined at this time) Start: 01-23-2026 Shingrix Vaccine (1 of 2) Pineda grix Vaccine (1 of 2) [facility] Comment on above: Postponed from 03/26 (Declined at this time) Start: 08-12-2025 Screening for malign ant neoplasm of lung Lung Cancer Screening [facility] Start: 07-28-2025 BP Controlled (<130/80) BP Controlle d (<130/80) [facility] Start: 07-27-2025 End: 07-27-2025 Patient encounter procedure 07/27/2025 9:20 AM EST Office Visit [facility] [place] [address] [place], [place] [id number] Waldo Suresh MD [address] [place] [id number] 6 month follow up [facility] [place] Comment on above: 6 month follow up Start: 07-23-2025 Annual PCP Team Photograph Finisher elizabeth Disease Visit Annual PCP Team Chronic Disease Visit [facility] Start: 07-23-2025 BP Controlled (<130/80) BP Controlle d (<130/80) [facility] Start: 07-23-2025 Covid-19 Vaccine ( season) Covid-19 Vaccine ( season) [facility] Comment on above: Postponed from 04/20 (Declined at this time) Start: 07-23-2025 Pneumococcal vaccination Pneum ococcal Vaccine (2 of 2 - PCV) [facility] Comment on above: Postponed from 06/27 (Declined at this time) Start: 07-20-2025 End: 09-13-2025 CT Chest for screening WO contrast CT LUNG SCREEN WO IVCON Radiology Routine Encounter for screening for lung cancer Tobacco use Expected: 07/20/2025 (Approximate), Expires: 09/13/2025 [facility] Work Phone: Comment on above: Expected: 07/20/2025 (Approximate), Expires: 09/13/2025 Start: 06-26-2025 Annual PCP Team Photograph Finisher elizabeth Disease Visit Annual PCP Team Chronic Disease Visit [facility] Start: 06-26-2025 BP Controlled (<130/80) BP Controlle d (<130/80) [facility] Start: 04-20-2025 Influenza vaccination Influenza Vacc ine (#1) [facility] Start: 04-09-2025 Annual PCP Team Photograph Finisher elizabeth Disease Visit Annual PCP Team Chronic Disease Visit [facility] Start: 04-09-2025 BP Controlled (<130/80) BP Controlle d (<130/80) [facility] Start: 02-19-2025 Polysomnography [facility] Start: 02-10-2025 Polysomnography [facility] Start: 01-23-2025 End: 04-24-2025 Lipid 1996 panel - Serum or Plasma LIPID PANEL, FASTING Lab Routine Other hyperlipidemia Expected: 01/23/2025, Expires: 04/24/2025 [facility] Comment on above: Expected: 01/23/2025 , Expires: 04/24/2025 Start: 01-23-2025 End: 01-23-2025 Patient encounter procedure 01/23/2025 9:00 AM EDT Office Visit Family [facility] [address] [place] [address] Shira Cheatham APRN.CNP [address] [facility] [place] [address] 6 month follow up Family [facility] Comment on above: 6 month follow up Start: 01-21-2025 End: 01-21-2025 Patient encounter procedure 01/21/2025 8:40 AM EDT Office Visit Family [facility] [address] [place] [address] aWldo Suresh MD [address] [place] [address] 6 month follow up Family [facility] Comment on above: 6 month follow up Start: 01-16-2025 Patient referral [facility] Work Phone: Start: 08-12-2024 End: 08-12-2024 Patient encounter procedure 08/12/2024 8:00 AM EST Appointment Cat Scan [address] [place] [address] CT Lung Screening Cat Scan Comment on above: CT Lung Screening Start: 07-28-2024 End: 07-28-2024 Patient encounter procedure 07/28/2024 1:30 PM EST Office Visit Pulmonary Medicine [address] [place] [address] Alexandro Monterroso APRN.WARDROBE TECHNICIAN [address] [place] [address] Persistent cough [R05.3]; Wheezing [R06.2]; Tobacco use [Z72.0] [facility] Medicine Comment on above: Persistent cough [R0 5.3]; Wheezing [R06.2]; Tobacco use [Z72.0] Start: 07-28-2024 End: 07-28-2024 ambulatory [facility] Comment on above: Persistent cough [R0 5.3]; Wheezing [R06.2]; Tobacco use [Z72.0] Start: 07-23-2024 End: 07-23-2024 Patient encounter procedure 07/23/2024 8:40 AM EST Office Visit [facility] [place] [address] [place] [address] Waldo Suresh MD [address] [place] [address] 3 month [facility] [place] Comment on above: 3 month [facility] green Start: 07-12-2024 End: 10-11-2024 Comprehensive metabolic 2000 panel - Serum or Plasma COMPREHENSIVE METABOLIC PANEL Lab Routine Other hyperlipidemia Expected: 07/12/2024, Expires: 10/11/2024 [facility] Work Phone: Comment on above: Expected: 07/12/2024 , Expires: 10/11/2024 Start: 07-12-2024 End: 10-11-2024 Lipid 1996 panel - Serum or Plasma LIPID PANEL BASIC Lab Routine Other hyperlipidemia Expected: 07/12/2024, Expires: 10/11/2024 [facility] Comment on above: Expected: 07/12/2024 , Expires: 10/11/2024 Start: 07-11-2024 End: 07-11-2024 Patient encounter procedure 07/11/2024 8:40 AM EST Office Visit Family [facility] [place] [address] [facility] [place] [id number] Waldo Suresh MD [address] [facility] [place] [address] 3 month follwou [facility] [place] Comment on above: 3 month [facility] Start: 05-20-2024 Influenza vaccination Influenza Vacc ine (#1) [facility] Start: 04-20-2024 Covid-19 Vaccine ( season) Covid-19 Vaccine () [facility] Start: 04-20-2024 Influenza vaccination Influenza Vacc ine (#1) [facility] Start: 11-08-2023 Icing And Glaze Maker stdy unatnd w/mi n hrt rate/o2 sat/resp anal METAL ENGINEERING PROCESS WORKER STDY UNATND W/ANAL [facility] Start: 10-15-2023 Patient referral [facility] Work Phone: Start: 09-25-2023 Protein measurement [facility] Start: 09-25-2023 Patient referral [facility] Work Phone: Start: 09-24-2023 Measurement of substance [facility] Start: 09-24-2023 Procedure [facility] Start: 09-24-2023 Thiamine measurement [facility] Start: 06-20-2023 Patient discharge [facility] Start: 06-16-2023 Following clinical pathway protocol [facility] Start: 06-16-2023 Assessment of risk o f venous thromboembolism [facility] Start: 06-16-2023 Notification of physician [facility] Start: 06-16-2023 Seizure precautions [facility] Start: 06-16-2023 Vital signs measurements [facility] Start: 06-16-2023 [facility] Start: 06-16-2023 Admission procedure [facility] Start: 06-16-2023 Inhalation therapy procedure [facility] Start: 06-08-2023 [facility] Start: 05-28-2023 Patient referral [facility] Work Phone: Start: 04-20-2023 COVID-19 Vaccine [...] ant neoplasm of lung Lung Cancer Screening [facility] Start: 2021 Shingles (RZV) Vacci ne (1 of 2) Shingles (RZV) Vaccine (1 of 2) [facility] Start: 2021 Shingrix Vaccine (1 of 2) Pineda grix Vaccine (1 of 2) [facility] Start: 2016 Screening for malign ant neoplasm of colon [facility] Start: 06-27-2015 [facility]neumococcal [facility] Start: 06-27-2015 Pneumococcal Vaccine : 50+ (2 of 2 - PCV) Pneumococcal Vaccine: 50+ (2 of 2 - PCV) [facility] Start: 06-21-2015 Pneumococcal vaccination Pneum ococcal Vaccine (2 of 2 - PCV) [facility] Start: 2006 Lipid panel Cholesterol [facility] [...] (1 of 3 - 19+ 3-dose series) [facility] Start: 1989 Hepatitis C screening [facility] Start: 1986 HIV screening HIV Test [facility] Start: 1971 COVID-19 Vaccine (#1) COVID-19 Vacci ne (#1) [facility] Start: 1971 Hepatitis B vaccination Hepati tis B (HBV) Vaccine (1 of 3 - 3-dose series) [facility] Start: 1971 Screening for malign ant neoplasm of colon Colonoscopy [facility] Blood ammonia measurement [facility] Blood ammonia measurement [facility] Blood ammonia measurement [facility] Clostridioides diffi cile toxin genes [Presence] in Stool by MARCUS with probe detection C. DIFFICILE PCR Lab Routine Diarrhea, unspecified type Ordered: 04/09/2024 [facility] Comment on above: Ordered: 04/09/2024 Cobalamin (Vitamin B 12) [Mass/volume] in Serum or Plasma [facility] Complete blood count [facility] Comprehensive metabo lic 2000 panel - Serum or Plasma [facility] End: 08-27-2025 CT Chest for screening contrast CT LUNG SCREEN IVCON Radiology Routine Encounter for screening for lung cancer Tobacco use 1 Occurrences starting 07/28/2024 until 08/27/2025 [facility] Work Phone: Comment on above: 1 Occurrences starti ng 07/28/2024 until 08/27/2025 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 ENTERIC BACTERIAL PANEL BY PCR Lab Routine Diarrhea, unspecified type Ordered: 04/09/2024 [facility] Work Phone: Comment on above: Ordered: 04/09/2024 FECAL LACTOFERRIN/LEUKOCYTES FECAL LACTOFERRIN/LEUKOCYTES Lab Routine Diarrhea, unspecified type Ordered: 04/09/2024 [facility] Comment on above: Ordered: 04/09/2024 Folate [Mass/volume] in Serum or Plasma [facility] Folic acid measureme nt, RBC [facility] End: 08-22-2025 LUNG VOLUMES LUNG VOLUMES PFT Routine Persistent cough Wheezing Tobacco use 1 Occurrences starting 07/23/2024 until 08/22/2025 [facility] Comment on above: 1 Occurrences starti ng 07/23/2024 until 08/22/2025 Magnesium [Mass/volu me] in Serum or Plasma [facility] Measurement of substance [facility] Measurement of substance [facility] MR Brain WO and W contrast IV [facility] MR Brain WO contrast [facility] Patient Education ED Abdominal P ain Unkn Cause Male... [facility] Work Phone: Patient referral [facility] Work Phone: Potassium [Moles/vol ume] in Serum or Plasma [facility] Procedure [facility] Prostate specific Ag panel - Serum or Plasma [facility] End: 01-23-2026 Screening colonoscopy COLONOSCOPY SCREENING Endoscopy Routine Screening for colon cancer 1 Occurrences starting 01/23/2025 until 01/23/2026 [facility] Work Phone: Comment on above: 1 Occurrences starti ng 01/23/2025 until 01/23/2026 End: 08-22-2025 SPIROMETRY - BASELINE AND POST DILATOR SPIROMETRY - BASELINE AND POST DILATOR PFT Routine Persistent cough Wheezing Tobacco use 1 Occurrences starting 07/23/2024 until 08/22/2025 [facility] Work Phone: Comment on above: 1 Occurrences starti ng 07/23/2024 until 08/22/2025 SPIROMETRY - BASELIN E AND POST DILATOR SPIROMETRY - BASELINE AND POST DILATOR PFT Routine Persistent cough Wheezing Tobacco use 07/28/2024 11:04 AM EST [facility] Work Phone: Thiamine measurement [facility] Thiamine measurement [facility] Thyroid stimulating hormone measurement [facility] Thyroid stimulating hormone measurement [facility] Valproate [Mass/volu me] in Serum or Plasma [facility] Valproate [Mass/volu me] in Serum or Plasma [facility] Vitamin B12 measurement [facility] Vitamin B6 measurement [facility] Vitamin D, 1,25-dihy droxy measurement [facility] Immunizations Immunization Date Immunization Notes Care Provider Mary buitrago 06-15-2024 influenza, seasonal, injectable, preservative free Dr. Vasu Blackwell MD Work Phone: [facility] 06-15-2024 influenza virus vaccine, unspecified formulation Rachel Ray PhD Work Phone: [facility] 06-24-2019 influenza virus vaccine, unspecified formulation Waldo Suresh MD Work Phone: [facility] 06-01-2019 tetanus toxoid, redu cindi diphtheria toxoid, and acellular pertussis vaccine, adsorbed Dr. Vasu Blackwell Work Phone: [facility] Work Phone: 10-12-2017 influenza, injectabl e, quadrivalent, preservative free Dr. Vasu Blackwell Work Phone: [facility] 10-12-2017 influenza, seasonal, injectable Dr. Vasu Blackwell Work Phone: [facility] Work Phone: 10-12-2017 influenza, seasonal, injectable, preservative free [facility] 10-12-2017 influenza virus vaccine, unspecified formulation [facility] 06-27-2014 influenza, injectabl e, quadrivalent, preservative free Dr. Vasu Blackwell Work Phone: [facility] 06-27-2014 influenza, seasonal, injectable Dr. Vasu Blackwell Work Phone: [facility] Work Phone: 06-27-2014 influenza, seasonal, injectable, preservative free [facility] 06-27-2014 pneumococcal polysaccharide vaccine, 23 valent [facility] 06-27-[address] Vlad Blackwell Work Phone: [facility] Work Phone: 06-27-2014 pneumococcal vaccine , unspecified formulation Dr. Vasu Blackwell Work Phone: [facility] 06-21-2014 influenza virus vaccine, whole virus [facility] 06-21-2014 pneumococcal polysaccharide vaccine, 23 valent [facility] Payers Date Payer Category Payer Self-pay [id number] 2024 Medicaid [id number] 2019 Medicaid [id number] 2019 Unknown 2016 Private Health Insurance [id number] 1971 Unknown [id number] 2.16. [id number] 1971 Unknown [id number] 2.16. [id number] 1971 Unknown [id number] 2.16. [id number] 1971 Unknown [id number] 2.16. [id number] 1971 Unknown [id number] 2.16. [id number] 1971 Unknown [id number] 2.16.8 40.1.761453.3.579.2.627 Unknown [id number] 2.16.8 40.1.834669.3.579.2.462 Unknown [id number] 2.16.8 40.1.992201.3.579.2.462 Unknown [id number] 2.16.8 40.1.493897.3.579.2.462 Unknown [id number] 2.16.8 40.1.647161.3.579.2.462 Unknown [id number] 2.16.8 40.1.591808.3.579.2.462 Unknown [id number] 2.16.8 40.1.308608.3.579.2.462 Unknown [id number] 2.16.8 40.1.813914.3.579.2.462 Unknown [id number] 2.16.8 40.1.328644.3.579.2.462 Unknown [id number] 2.16.8 40.1.020283.3.579.2.462 Unknown [id number] 2.16.8 40.1.832809.3.579.2.462 Unknown [id number] 2.16.8 40.1.467561.3.579.2.462 Unknown [id number] 2.16.8 40.1.837467.3.579.2.462 Unknown [id number] 2.16.8 40.1.525745.3.579.2.462 Unknown [id number] 2.16.8 40.1.581344.3.579.2.462 Unknown [id number] 2.16.8 40.1.234274.3.579.2.462 Unknown [id number] 2.16.8 40.1.756284.3.579.2.462 Unknown [id number] 2.16.8 40.1.507907.3.579.2.462 Unknown [id number] 2.16.8 [id number] Social History Date Type Detail Facility [facility] Start: 1970 Sex Assigned At Male [facility] Start: 12-30-2021 End: 10-15-2023 Tobacco smoking status NHIS Unknown if ever smoked [facility] Start: 01-04-2021 Heavy [facility] Start: 01-04-2021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 Unspecified essential [...] esophagitis Esophageal reflux documented in this encounter [facility] note* Diagnosis Traumatic brain injury with loss of consciousness, sequela- Primary Nonintractable epilepsy without status epilepticus, unspecified epilepsy type (HCC) Subdural hematoma (HCC) Subdural hemorrhage Depression, unspecified depression type Cognitive complaints Other signs and symptoms involving cognition [facility] Author Sanya Caldwell [facility] June 16, 2023 2:39pm Note Date/Time June 16, 2023 2 :39pm [facility] Medical Records Department [address] [place] [address] H&P Exam - Hospitalist 06/16/23 1431 MR#: [id number] Acct: [id number] Name: JERMAN HENSLEY Rep #:[id number] : 1970 53 From: Sanya Caldwell DO PCP: Dr. Vasu Blackwell MD Status:R EG ER Location: ED HPI - General General Date of Service: 06/16/23 Chief Complaint: Requesting treatment for alcohol withdrawal. HPI Narrative JERMAN HENSLEY, is a 53 M who presents seeking [...] not had seizure in over a year. [facility] Medical History Arthritis Back pain Blood glucose [...] % (Auto) 68.8, Lymph % (Auto) 20.1, [place] % (Auto) 8.4, Eos % (Auto) 1.5, [...] Clarity Clear, Urine pH 6.5, Ur Specific [place] 1.015, Urine Protein 15 H, Urine Glucose [...] low risk. Charges/Coding Visit Charges Inpatient E&M: 27650 Init Hosp L2 06/16/23 1439 <Electronically signed by Sanya Caldwell DO> Cosigner Signature (if applicable): CC: Dr. Vasu Blackwell MD; Dr. Sanya Caldwell DO~ Signed [facility] Work Phone: Hospital Discharge instructions No data available for this section [facility] Reason for referral (narrative)* Outpatient Procedure (Routine) - Pending Review Specialty Diagnoses / Procedures Referred By Contac t Referred To Contact [facility] Diagnoses Persistent cough Wheezing Tobacco use Procedures LUNG VOLUMES Waldo Suresh MD [address] [place] [address] [facility] [place] [address] [place] [address] Referral ID Status Reason Start Date Expiration Date Visits Requested Visits Authorized [id number] Pending Review Auto-Generat ed Referral 07/23/2024 08/22/2025 1 1 * Outpatient Procedure (Routine) - Authorized Specialty Diagnoses / Procedures Referred By Contac t Referred To Contact [facility] Diagnoses Persistent cough Wheezing Tobacco use Procedures SPIROMETRY - BASELINE AND POST DILATOR BRNCDILAT RSPSE SPMTRY PRE&POST-BRNCDILAT ADMN Waldo Suresh MD [address] [place] [address] [facility] [place] [address] [place] [address] Referral ID Status Reason Start Date Expiration Date Visits Requested Visits Authorized [id number] Authorized Auto-Generat ed Referral 07/23/2024 08/22/2025 1 1 [place] for referral (narrative)No reason [facility] Work Phone: Summary note* TANA Bass: PERFORM Event Display: Patient Summary Documents Authored Date: [id number] [facility] Summary Purpose Family History No Family History [...] December 30, 2021 8 :19pm Power of Can Tester No December 30, 2021 8:19pm Latest Code [...] Will No May 28 10:27am Power of Can Tester No May 28, 2 023 10:27am Advance Directive Response Recorded Date/ Time Advance Directives No May 28, 2023 10:27am Living Will No June 16 12:11pm Power of Can Tester No June 16, 2023 12:11pm Advance Directive Response Recorded Date/ Time Advance Directives No May 28, 2023 10:27am Living Will No June 16 3:24pm Power of Can Tester No June 16, 2023 3:24pm Advance Directive Response Recorded Date/ Time Advance Directives No May 28, 2023 9:27am Living Will No June 16 2:24pm Power of Can Tester No June 16, 2023 2:24pm Latest Code [...] 2023 10:27am Hospital Course Note HNO ID: [id number] Author: Mary Molina (Pa) Service: Trauma 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 Sexton to be discharged. DISCHARGE SUMMARY PATIENT NAME: Rhoda Henslye Code Status: Not on file Highest Readmission [...] (more content not included)... Note HNO ID: [id number] Author: Swapnil Moseley Service: Thoracic Surgery Author Type: Resident Type: Procedures Filed: 06/07/2019 11:18 AM Note Text: BEDSIDE PROCEDURE NOTE INTUBATION Performed by: Rachel Moseley Authorized by: Lakesha Wilkes Consent/Plain Protocol Written consent obtained: No, emergent procedure [...] (more content not included)... Note HNO ID: [id number] Author: A my M Beltran Service: General Surgery Author Type: Physician Type: Procedures Filed: 06/12/2019 1:15 PM Note Text: BEDSIDE PROCEDURE NOTE BRONCHOSCOPY Date/Start Time: 06/12/2019 1:00 PM Performed by: Susan Witt MD Authorized by: Lilliana Beltran Consent/Plain Protocol Written Consent Obtained: Yes Sign In [...] not included)... Procedure Findings Note HNO ID: [id number] Author: Swapnil Moseley Service: Thoracic Surgery Author Type: Resident Type: Procedures Filed: 06/07/2019 11:18 AM Note Text: BEDSIDE PROCEDURE NOTE INTUBATION Performed by: Rachel Moseley Authorized by: Lakesha Wilkes Consent/Plain Protocol Written consent obtained: No, emergent procedure [...] (more content not included)... Note HNO ID: [id number] Author: Mario Beltran Service: General Surgery Author Type: Physician Type: Procedures Filed: 06/12/2019 1:15 PM Note Text: BEDSIDE PROCEDURE NOTE BRONCHOSCOPY Date/Start Time: 06/12/2019 1:00 PM Performed by: Susan Witt MD Authorized by: Lilliana Beltran Consent/Plain Protocol Written Consent Obtained: Yes Sign In [...] TOMOGRAPHY THORAX LW DOSE LNG CA SCR C- Alexandro Monterroso, PHOTOGRAPHY TEACHER.WARDROBE TECHNICIAN [address] [place] [address] [place] [address] Referral ID Status Reason Start Date Expiration Date Visits Requested Visits Authorized [id number] Authorized Auto-Generat ed Referral 07/28/2024 08/27/2025 1 1 Specialty Diagnoses / Procedures Referred By Contac t Referred To Contact General Surgery Diagnoses Diarrhea, unspecified type Screening for colon cancer Procedures CONSULT TO GENERAL SURGERY OFFICE/OUTPATIENT [facility] 60 MINUTES Waldo Suresh MD [address] [place] [address] Referral ID Status Reason Start Date Expiration Date Visits Requested Visits Authorized [id number] Authorized PCP Requested Referral 04/09/2024 04/09/2025 1 1 Additional Source Comments (unrecognized sect ion and content) No Status Records FoundNo Status Records FoundNo Status Records FoundNo Status Records FoundNo Status Records FoundNo Status Records FoundNo Status Records FoundNo Status Records Found INFORMATION SOURCE (unrecogn ized section and content) DATE CREATED AUTHOR 02/08/2018 [facility] DATE CREATED AUTHOR AUTHOR'S ORGANIZ ATION 08/11/2019 [facility] DATE CREATED AUTHOR AUTHOR'S ORGANIZ ATION 11/30/2019 [facility] DATE CREATED AUTHOR AUTHOR'S ORGANIZ ATION 09/18/2021 [facility] DATE CREATED AUTHOR AUTHOR'S ORGANIZ ATION 02/22/2022 [facility] DATE CREATED AUTHOR AUTHOR'S ORGANIZ ATION 01/14/2024 [facility] DATE CREATED AUTHOR AUTHOR'S ORGANIZ ATION 03/12/2025 [facility] DATE CREATED AUTHOR AUTHOR'S ORGANIZ ATION 03/18/2025 [facility] Goals (unrecognized section and content) Goals may be documented in a n alternate section Care Teams (unrecognized sec tion and content) Team Status: Active Member Role Status Dates Dr. Miguel Suresh MD Family Provider Active Dr. Vasu Blackwell MD Primary Care Provider Active Team Status: Inactive Member Role Status Dates Dr. Vasu Blackwell MD Primary Care P zacarias, Attending Provider, Referring Provider Active Team Status: Inactive Member Role Status Dates Dr. Vasu Blackwell MD Primary Care Provider, Refer ring Provider Active Dr. Errol Anderson MD Attending Provider Active Team Status: Inactive Member Role Status Dates Dr. Vasu Blackwell MD Primary Care Provider Active Dr. Errol Anderson MD Attending Provider, Referring Provider Active Team [...] Primary Care Provider, Atten ding Provider Active Clean Out Driller Helper Relationship Specialty Start Date End Date Waldo Suresh MD [address] [place], [place] [id number] PCP - General Family Medicine 04/09/24 Chavez Bennett MD [address] [place] [address] Referring Neurosurgery 07/09/19 Clean Out Driller Helper Relationship Specialty Start Date End Date Waldo Suresh MD [address] [place], [place] [id number] PCP - General Family Medicine 04/09/24 Chavez Bennett MD [address] [place] [address] Referring Neurosurgery 07/09/19 Clean Out Driller Helper Relationship Specialty Start Date End Date Waldo Suresh MD [address] [place], [place] 580121 PCP - General Family Medicine 04/09/24 Chavez Bennett MD [address] [place] [address] Referring Neurosurgery 07/09/19 Clean Out Driller Helper Relationship Specialty Start Date End Date Waldo Suresh MD [address] [place] [address] PCP - General Family Medicine 04/09/24 Chavez Bennett MD [address] [place] [address] Referring Neurosurgery 07/09/19 Clean Out Driller Helper Relationship Specialty Start Date End Date Waldo Suresh MD [address] [place], [place] [address] PCP - General Family Medicine 04/09/24 Chavez Bennett MD [address] [place] [address] Referring Neurosurgery 07/09/19 Clean Out Driller Helper Relationship Specialty Start Date End Date Waldo Suresh MD [address] [place], [place] [address]441 PCP - General Family Medicine 04/09/24 Chavez Bennett MD [address] [place] [address] Referring Neurosurgery 07/09/19 Clean Out Driller Helper Relationship Specialty Start Date End Date Waldo Suresh MD [address] [place], [place] [address]28[address] PCP - General Family Medicine 04/09/24 Chavez Bennett MD [address], [place] [address]7023 Referring Neurosurgery 07/09/19 Podlogar, LUDA Silva.WARDROBE TECHNICIAN [address] [place] [address] [facility] 07/26/24 Clean Out Driller Helper Relationship Specialty Start Date End Date Waldo Suresh MD [address] [place] [address] PCP - General Family Medicine 04/09/24 Chavez Bennett MD [address], [place] [address] Referring Neurosurgery 07/09/19 Podlogar, LUDA Silva.WARDROBE TECHNICIAN [address] [place] [address] [facility]ks [facility] 07/26/24 Clean Out Driller Helper Relationship Specialty Start Date End Date Waldo Suresh MD [address] [place], [place] [address] PCP - General Family Medicine 04/09/24 Chavez Bennett MD [address] [facility] [place] [address] Referring Neurosurgery 07/09/19 Podlogar, Shira PHOTOGRAPHY TEACHER.WARDROBE TECHNICIAN [address] [facility] [place] [address] Underwriting Clerks Supervisor Family Medicine 07/26/24 Clean Out Driller Helper Relationship Specialty Start Date End Date Waldo Suresh MD [address] [facility] [place] [address] PCP - General Family Medicine 04/09/24 Chavez Bennett MD [address] [facility] [place], [place] [address] Referring Neurosurgery 07/09/19 Podlogar, LUDA Silva.WARDROBE TECHNICIAN [address] [place] [address] [facility] 07/26/24 Clean Out Driller Helper Relationship Specialty Start Date End Date Waldo Suresh MD [address] [facility] [place] [address] PCP - General Family Medicine 04/09/24 Chavez Bennett MD [address] [place] [address] Referring Neurosurgery 07/09/19 PodlogarShira PHOTOGRAPHY TEACHER.WARDROBE TECHNICIAN [address] [facility], [place] [address] [facility] Family Medicine 07/26/24 Clean Out Driller Helper Relationship Specialty Start Date End Date Waldo Suresh MD [address] [facility] [place] [address] PCP - General Family Medicine 04/09/24 Chavez Bennett MD [address] [place] [address] Referring Neurosurgery 07/09/19 Shira Cheatham APRN.WARDROBE TECHNICIAN [address] [place], [place] [address] Underwriting Clerks Supervisor [facility] 07/26/24 Suzy Meedl APRN.WARDROBE TECHNICIAN [address] [place], [place] [address]31 [facility] 11/10/24 Team Status: Inactive Member Role Status Dates Dr. Vasu Blackwell MD Primary Care Provider Active Start: September 30, 2024 End: September 30, 2024 Dr. Vasu Blackwell MD Referring Provider Active Start: September 30, 2024 End: September 30, 2024 Dr. Errol Anderson MD Attending Provider Active Start: September 30, 2024 End: September 30, 2024 Team Status: Inactive Member Role Status Dates Dr. Vasu Blackwell MD Primary Care Provider Active Start: October 02, 2024 End: October 02, 2024 Dr. Errol Anderson MD Attending Provider Active Start: October 02, 2024 End: October 02, 2024 Dr. Errol Anderson MD Referring Provider Active Start: October 02, [...] 2025 End: January 15, 2025 Dr. Errol Anderson MD Attending Provider Active Start: January 15, 2025 End: January 15, 2025 Clean Out Driller Helper Relationship Specialty Start Date End Date Waldo Suresh MD [address] [place], [place] 215201 PCP - General Family Medicine 04/09/24 Chavez Bennett MD [address], [place] [id number] Referring Neurosurgery 07/09/19 PodlogarShira APRN.WARDROBE TECHNICIAN [address] [place], [place] [address]71 Underwriting Clerks Supervisor Family Medicine 07/26/24 Errol Anderson MD [address] [place], [place] [address] Referring Team Neurology 01/22/25 Clean Out Driller Helper Relationship Specialty Start Date End Date Waldo Suresh MD [address] [place], [place] 494241 PCP - General Family Medicine 04/09/24 Chavez Bennett MD [address], [place] 581053 Referring Neurosurgery 07/09/19 PodlogarShira APRN.WARDROBE TECHNICIAN [address] [place] [address] Underwriting Clerks Supervisor [facility] 07/26/24 Errol Anderson MD [address] [place] [address] [place] Referring Team Neurology 01/22/25 Team Status: Active Member Role Status Dates Dr. Miguel Suresh MD Primary Care Provider Acti ve Team Status: Inactive Member Role Status Dates Dr. Errol Anderson MD Attending Provider Active Start: January 29, 2025 End: January 29, 2025 Dr. Errol Anderson MD Referring Provider Active Start: January 29, 2025 End: January 29, 2025 Dr. Miguel Suresh MD Primary Care Provider Acti ve Start: January 29, 2025 End: January 29, 2025 Team Status: Inactive Member Role Status Dates Dr. Errol Anderson MD Attending Provider Active Start: February 05, 2025 End: February 05, 2025 Dr. Errol Anderson MD Referring Provider Active Start: February 05, 2025 End: February 05, 2025 Dr. Miguel Suresh MD Primary Care Provider Acti ve Start: February 05, 2025 End: February 05, 2025 Team Status: Active Member Role/Relationship Status Dates Dr. Miguel Suresh MD Primary Care Provider Acti ve Team Status: Inactive Member Role/Relationship Status Dates Dr. Vasu Blackwell MD Primary Care Provider Active Start: January 01, 2025 End: January 01, 2025 Dr. Vasu Blackwell MD Referring Provider Active Start: January 01, 2025 End: January 01, 2025 DOMINIQUE Golden Attending Provider Active S tart: January 01, 2025 End: January 01, 2025 Team Status: Inactive Member Role/Relationship Status Dates Dr. Vasu Blackwell MD Primary Care Provider Active Start: January 15, 2025 End: January 15, 2025 Dr. Vasu Blackwell MD Referring Provider Active Start: January 15, 2025 End: January 15, 2025 Dr. Errol Anderson MD Attending Provider Active Start: January 15, 2025 End: January 15, 2025 Team Status: Inactive Member Role/Relationship Status Dates Dr. Errol Anderson MD Attending Provider Active Start: January 29, 2025 End: January 29, 2025 Dr. Errol Anderson MD Referring Provider Active Start: January 29, 2025 End: January 29, 2025 Dr. Miguel Suresh MD Primary Care Provider Acti ve Start: January 29, 2025 End: January 29, 2025 Team Status: Inactive Member Role/Relationship Status Dates Dr. Errol Anderson MD Attending Provider Active Start: February 05, 2025 End: February 05, 2025 Dr. Errol Anderson MD Referring Provider Active Start: February 05, 2025 End: February 05, 2025 Dr. Miguel Suresh MD Primary Care Provider Acti ve Start: February 05, 2025 End: February 05, 2025 Team Status: Inactive Member Role/Relationship Status Dates Dr. Miguel Suresh MD Primary Care Provider Acti ve Start: February 17, 2025 End: February 17, 2025 Dr. Errol Anderson MD Attending Provider Active Start: February 17, 2025 End: February 17, 2025 Dr. Errol Anderson MD Referring Provider Active Start: February 17, 2025 End: February 17, 2025 Team Status: Active Member Role/Relationship Status Dates Dr. Errol Anderson MD Attending Provider Active Start: February 19, 2025 Dr. Errol Anderson MD Referring Provider Active Start: February 19, 2025 Dr. Miguel Suresh MD Primary Care Provider Acti ve Start: February 19, 2025 Team Status: Inactive Member Role/Relationship Status Dates Dr. Errol Anderson MD Attending Provider Active Start: February 19, 2025 End: February 19, 2025 Dr. Errol Anderson MD Referring Provider Active Start: February 19, 2025 End: February 19, 2025 Dr. Miguel Suresh MD Primary Care Provider Acti ve Start: February 19, 2025 End: February 19, 2025 Team Status: Inactive Member Role/Relationship Status Dates Dr. Miguel Suresh MD Primary Care Provider Acti ve Start: March 03, 2025 End: March 03, 2025 DOMINIQUE Martinez Attending Provider Active Start: March 03, 2025 End: March 03, 2025 Dr. Errol Anderson MD Referring Provider Active Start: March 03, 2025 End: March 03, 2025 Clean Out Driller Helper Relationship Specialty Start Date End Date Waldo Suresh MD [address] [place] [address] PCP - General Family Medicine 04/09/24 Chavez Bennett MD [address] [place] [address] Referring Neurosurgery 07/09/19 Shira Cheatham APRN.WARDROBE TECHNICIAN [address] [place] [address] Underwriting Clerks Supervisor [facility] 07/26/24 Errol Anderson MD [address] [place] [address] NI Referring Team Neurology 01/22/25 Suzy Medel APRN.WARDROBE TECHNICIAN [address] [place] [id number] Underwriting Clerks Supervisor [facility] 01/29/25 Source Comments (unrecognize d section and content) In the event this informatio n is protected by the Federal Confidentiality of Alcohol and Drug Abuse Patient Records regulations: The Federal rules restrict any use of the information to criminally investigate or prosecute any alcohol or drug abuse patient.[facility] the event this information is protected by the Federal Confidentiality of Alcohol and Drug Abuse Patient Records regulations: The Federal rules restrict any use of the information to criminally investigate or prosecute any alcohol or drug abuse patient.[facility] Hospital[facility] the event this information is protected by the Federal Confidentiality of Alcohol and Drug Abuse Patient Records regulations: The Federal rules restrict any use of the information to criminally investigate or prosecute any alcohol or drug abuse patient.[facility] Hospital[facility] the event this information is protected by the Federal Confidentiality of Alcohol and Drug Abuse Patient Records regulations: The Federal rules restrict any use of the information to criminally investigate or prosecute any alcohol or drug abuse patient.[facility] the event this information is protected by the Federal Confidentiality of Alcohol and Drug Abuse Patient Records regulations: The Federal rules restrict any use of the information to criminally investigate or prosecute any alcohol or drug abuse patient.[facility] the event this information is protected by the Federal Confidentiality of Alcohol and Drug Abuse Patient Records regulations: The Federal rules restrict any use of the information to criminally investigate or prosecute any alcohol or drug abuse patient.[facility] Hospital[facility] the event this information is protected by the Federal Confidentiality of Alcohol and Drug Abuse Patient Records regulations: The Federal rules restrict any use of the information to criminally investigate or prosecute any alcohol or drug abuse patient.[facility] HospitalIn the event this information is protected by the Federal Confidentiality of Alcohol and Drug Abuse Patient Records regulations: The Federal rules restrict any use of the information to criminally investigate or prosecute any alcohol or drug abuse patient.[facility] Hospital[facility] the event this information is protected by the Federal Confidentiality of Alcohol and Drug Abuse Patient Records regulations: The Federal rules restrict any use of the information to criminally investigate or prosecute any alcohol or drug abuse patient.[facility] Hospital[facility] the event this information is protected by the Federal Confidentiality of Alcohol and Drug Abuse Patient Records regulations: The Federal rules restrict any use of the information to criminally investigate or prosecute any alcohol or drug abuse patient.[facility] HospitalIn the event this information is protected by the Federal Confidentiality of Alcohol and Drug Abuse Patient Records regulations: The Federal rules restrict any use of the information to criminally investigate or prosecute any alcohol or drug abuse patient.[facility] HospitalIn the event this information is protected by the Federal Confidentiality of Alcohol and Drug Abuse Patient Records regulations: The Federal rules restrict any use of the information to criminally investigate or prosecute any alcohol or drug abuse patient.[facility] HospitalIn the event this information is protected by the Federal Confidentiality of Alcohol and Drug Abuse Patient Records regulations: The Federal rules restrict any use of the information to criminally investigate or prosecute any alcohol or drug abuse patient.[facility] HospitalIn the event this information is protected by the Federal Confidentiality of Alcohol and Drug Abuse Patient Records regulations: The Federal rules restrict any use of the information to criminally investigate or prosecute any alcohol or drug abuse patient.[facility] HospitalIn the event this information is protected by the Federal Confidentiality of Alcohol and Drug Abuse Patient Records regulations: The Federal rules restrict any use of the information to criminally investigate or prosecute any alcohol or drug abuse patient.[facility] HospitalIn the event this information is protected by the Federal Confidentiality of Alcohol and Drug Abuse Patient Records regulations: The Federal rules restrict any use of the information to criminally investigate or prosecute any alcohol or drug abuse patient.[facility] Reason for Visit (unrecogniz ed section [...] DILATOR BRNCDILAT RSPSE SPMTRY PRE&POST-BRNCDILAT ADMN Waldo Suresh MD [address] [place] [address] [address] Referral ID Status Reason Start Date Expiration Date V isits Requested Visits Authorized [id number] Closed Auto-Generate d Referral 07/23/2024 08/22/2025 1 1 Specialty Diagnoses / Procedures Referred By Contac t Referred To Contact [facility] Diagnoses Persistent cough Wheezing Tobacco use Procedures LUNG VOLUMES Waldo Suresh MD [address] [place] [address] [address] Referral ID Status Reason Start Date Expiration Date V isits Requested Visits Authorized [id number] Closed Auto-Generate d Referral 08/20/2023 08/19/2024 1 1 Reason Comments New Patient [facility] Reason Comments Radiology CT Specialty Diagnoses / Procedures Referred By Contac t Referred To Contact CT [facility] Diagnoses Encounter for screening for lung cancer Tobacco use Procedures CT LUNG SCREEN WO IVCON COMPUTED TOMOGRAPHY THORAX LW DOSE LNG CA EMILY Domingo- Alexandro Monterroso, LUDA.[employer] TECHNICIAN [address] [place] [address] [facility] [place] [address] Referral ID Status Reason Start Date Expiration Date V isits Requested Visits Authorized [id number] Closed Auto-Generate d Referral 07/30/2024 08/29/2024 1 1 Reason Onset Date Comments Refill Request 11/10/2024 Reason Comments Received Outside Medical Records Externa l referral to [facility] [place] Reason Comments F/U 6 months FOR RECORDS [...] BE BASED ON THE PRIMARY CLINICAL RECORDS. [facility] [employer] [facility]. provides no warranty or guarantee of the accuracy or completeness of information in this document.
== END | disposition home or self-care (01) ==
LOC: SL 19:58
PROVIDERS: PCP Family Medicine; Referring Provider Nurse Practitioner Family; Visit Provider Nurse Practitioner Family
DX: G47.33 Obstructive sleep apnea (adult) (pediatric) (principal)
CPT/HCPCS: 95811

== ENCOUNTER → 2025-04-09 | Outpatient (CLI) | payer MEDICAID, SELFPAY | END | disposition home or self-care (01) | LOC: SL 10:16 | PROVIDERS: PCP Family Medicine; Visit Provider Nurse Practitioner Family | DX: Z46.89 Encounter for fitting and adjustment of other specified devices (principal) ==

== ENCOUNTER → 2025-05-21 | Outpatient (CLI) | payer MEDICAID, SELFPAY | END | disposition home or self-care (01) | LOC: SL 11:16 | PROVIDERS: PCP Family Medicine; Referring Provider Nurse Practitioner Family; Visit Provider Nurse Practitioner Family | DX: Z00.00 Encounter for general adult medical examination without abnormal findings (principal) ==